=== PATIENT | female | born 1960 | race Caucasian/White ===

== ENCOUNTER → 2016-08-29 | Outpatient (CLI) | payer OTHER ==
[~2016-08-29] MED LIST: ASPI81TA28 PO; ATOR-26 PO; ATR25 PO; BUSP30TA2 PO; CHOLCAP5 PO; DULA1INJ SC; FENO145T26 PO; HMLI SC; HYD50 PO; INSU1.2I SC; LSN40 PO; LXP/20 PO; MAGN400T6 PO; OXYC1TAB3 PO; TNR25 PO; ZINC1TAB4 PO
== END | disposition home or self-care (01) ==
LOC: C.PAPS 14:29
PROVIDERS: ATTEND Obstetrics & Gynecology
DX: Z12.4 Encounter for screening for malignant neoplasm of cervix (principal); R87.616 Satisfactory cervical smear but lacking transformation zone; Z78.0 Asymptomatic menopausal state

== ENCOUNTER → 2016-12-19 | Outpatient (CLI) | payer OTHER ==
[~2016-12-19] MED LIST changes: -OXYC1TAB3 PO
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
== END | disposition home or self-care (01) ==
LOC: C.CTS 09:49
PROVIDERS: ATTEND Orthopaedic Surgery
DX: M25.512 Pain in left shoulder (principal)

== ENCOUNTER → 2017-04-01 | Outpatient (CLI) | payer OTHER ==
[2017-04-01 17:18] LABS: MEAN CELL VOLUME 88.1 fL (80-100); MEAN CORPUSCULAR HEMOGLOBIN 28.9 pg (25-34); MEAN CORPUSCULAR HGB CONC 32.8 g/dl (32-36); MEAN PLATELET VOLUME 11.1 fL (7.4-10.4); PLATELET COUNT 175 K/uL (130-400); RED BLOOD COUNT 4.54 M/uL (4.2-5.4); WHITE BLOOD COUNT 5.77 K/uL (4.8-10.8)
[2017-04-01 17:24] LABS: URINE APPEARANCE CLEAR (CLEAR); URINE BILIRUBIN NEG (NEG); URINE COLOR YELLOW; URINE EPITHELIAL CELL AUTO >30 /lpf (0-5); URINE NITRITE NEG (NEG); URINE SPECIFIC GRAVITY 1.025 (1.000-1.030); UROBILINOGEN NEG (NEG)
[2017-04-01 17:31] LABS: MANUAL MICROSCOPIC REQUIRED? NO; REVIEW REQ? NO
[2017-04-01 17:50] LABS: URINE PROTIEN/CREAT RATIO 1.4 (0-0.2); URINE TOTAL PROTEIN 154.2 mg/dl (0-11.9)
[2017-04-01 18:15] LABS: BLOOD UREA NITROGEN 31 mg/dl (7-18); BUN/CREATININE RATIO 20.8 (10-20); CALCIUM 9.2 mg/dl (8.5-10.1); CARBON DIOXIDE 29 mmol/L (21-32); CHLORIDE 103 mmol/L (98-107); CREATININE 1.51 mg/dl (0.60-1.20); GLUCOSE 399 mg/dl (70-99); POTASSIUM 4.6 mmol/L (3.5-5.1); SODIUM 138 mmol/L (136-145)
[2017-04-01 19:02] LABS: BETA-HYDROXYBUTYRATE 1.27 mg/dL (0.2-2.81)
== END | disposition home or self-care (01) ==
LOC: C.LABPBG 14:14
PROVIDERS: ATTEND Internal Medicine Nephrology
DX: N18.3 Chronic kidney disease, stage 3 (moderate) (principal)

== ENCOUNTER → 2017-08-12 | Outpatient (CLI) | payer OTHER ==
[2017-08-12 17:49] LABS: ALBUMIN 3.2 gm/dl (3.4-5.0); ALKALINE PHOSPHATASE 98 U/L (45-117); ALT/SGPT 31 U/L (12-78); AST/SGOT 28 U/L (15-37); BLOOD UREA NITROGEN 28 mg/dl (7-18); CALCIUM 9.2 mg/dl (8.5-10.1); CARBON DIOXIDE 29 mmol/L (21-32); CREATININE 1.48 mg/dl (0.60-1.20); GLUCOSE 270 mg/dl (70-99); POTASSIUM 4.4 mmol/L (3.5-5.1); SODIUM 139 mmol/L (136-145); TOTAL PROTEIN 6.9 gm/dl (6.4-8.2)
[2017-08-13 07:08] LABS: HEMOGLOBIN A1C 9.7 % (4.5-5.6)
== END | disposition home or self-care (01) ==
LOC: C.LAB1850 16:19
PROVIDERS: ATTEND Family Medicine
DX: E11.65 Type 2 diabetes mellitus with hyperglycemia (principal); E78.5 Hyperlipidemia, unspecified

== ENCOUNTER → 2017-08-22 | Outpatient (CLI) | payer OTHER ==
[~2017-08-22] MED LIST changes: +AMIT25TA9 PO; +ATROPINE SULFATE 0.1 MG/ML 5ML SYR ONE; +DOBUTamine HCL 12.5 MG/ML 20 ML VIAL ONE; +HUMALOG INSULIN INJ; +INSU1INJ33 INJ; +LEVO50TA6 PO; +LORA-741 PO; +METO50TA8 PO; +METOPROLOL TARTRATE 1 MG/ML VIAL ONE; +PERFLUTREN LIPID MICROSPHERE (DEFINITY) IV ONE
--- NOTE | 2017-08-22 17:25 | DOBUTAMINE ECHO ---
*NOTICE TO RECEIVING LIBERTARIAN AGENCY This information is strictly Confidential and protected under [place] law. [place] law prohibits you from making any further disclosure of this information unless further disclosure is expressly permitted by the written consent of the person to whom it pertains or is authorized by law. A general authorization for the release of medical or other information is not sufficient for this purpose. Hospital accepts no responsibility if the information is made available to any other person, INCLUDING THE PATIENT. Interpretation Summary * Name: SHANTEL PAYAN Study Date: 08/22/2017 11:45 AM BP: 169/83 mmHg * Patient Location: [facility] [place] HR: 75 * : 1960 (M/d/yyyy) Gender: Female Height: 68 in * Age: 56 yrs Ethnicity: CA Weight: 357 lb * Ordering Physician: MOR Howell. * Referring Physician: MOR Howell. * Performed By: Kelly Adrian RDCS * * Reason For Study: CHEST DISCOMFORT, ABNL EKG, HTN * BSA: 2.6 m2 * -- Conclusions -- * 1. Negative dobutamine stress echo for ischemia at 93% MPHR. * 2. Negative dobutamine stress ECG for ischemia. * 3. Normal resting LV size and function. Mild LVH. Normal RV size and function. Aortic valve sclerosis without stenosis. Grade 1 diastolic dysfunction. * 4. No prior studies for comparison. Procedure Details * DOBUTAMINE ECHO, CPT#70972 * A contrast injection of Definity was performed to improve assessment of LV function. * Contrast was injected into an intravenous site in the right arm. * One vial of Definity ultrasound contrast was diluted in normal saline to a total volume of 10 ml. A total of '5' ml of solution was administered during imaging. * Lot # [id number] of Definity utilized for procedure. * Expiration date 1 AUG 05. * The attending nurse who injected the contrast agent was BIANCA KAM RN. Left Ventricular Findings with Stress * This was essentially a normal study. Left Ventricle * The left ventricle is grossly normal size. * There is mild concentric left ventricular hypertrophy. * Ejection Fraction = 55-60%. * Resting wall motion: Normal. Stress wall motion: Appropriate increase in Left ventricular systolic function and decrease in cavity size. No stress induced segmental wall motion abnormalities. Right Ventricle * The right ventricle is not well visualized. * The right ventricle is grossly normal size. * The right ventricular systolic function is qualitatively normal. Atria * The left atrium is not well visualized. * Right atrium not well visualized. * There is no evidence of atrial septal defect, but resolution does not allow assessment for a patent foramen ovale. Mitral Valve * The mitral valve is grossly normal. * There is no mitral valve stenosis. * Significant mitral regurgitation is absent. Tricuspid Valve * There is trace tricuspid regurgitation. Aortic Valve * Aortic valve sclerosis moderate, without significant aortic valvular stenosis. * No hemodynamically significant valvular aortic stenosis. * There is no significant aortic regurgitation. Pulmonic Valve * The pulmonary valve is inadequately visualized, but the Doppler data is adequate for interpretation. * There is no significant pulmonary regurgitation. Great Vessels * The aortic root and proximal ascending aorta are normal sized. Pericardium * There is no pericardial effusion. Stress Parameters * Normal baseline electrocardiogram. * Stress ECG: No ST changes. No arrhythmias. * Arrhythmia noted in recovery: occasional PVC's. * Arrhythmia induced during stress: occasional PVC's. * Rest heart rate was '75' BPM. * Rest blood pressure was '169/83' * Maximum heart rate achieved was 151 bpm. * Maximum heart rate was 93 % of maximum age-predicted heart rate. * Maximum blood pressure was '209/94' * Maximum Dobutamine infusion rate was '40' mcg/kg/min. * A total of .5 mg of intravenous Atropine was used to supplement Dobutamine for heart rate response. * Dobutamine infusion was terminated due to achieving target heart rate * A total of 10 mg of IV Metoprolol was administered to reverse Dobutamine-induced tachycardia. Left Ventricular Findings with Stress * The study was technically good with many images being of high quality. Left Ventricular Diastolic Function * Grade I diastolic dysfunction, (abnormal relaxation pattern). MMode 2D Measurements and Calculations IVSd 1.5 cm IVSs 1.9 cm LVIDd 5.2 cm LVIDs 3.6 cm LVPWd 1.2 cm LVPWs 1.9 cm IVS/LVPW 1.3 FS 31.2 % EDV(Teich) 128.1 ml ESV(Teich) 53.0 ml EF(Teich) 58.6 % EDV(cubed) 138.6 ml ESV(cubed) 45.1 ml EF(cubed) 67.5 % % IVS thick 24.9 % % LVPW thick 61.1 % LV mass(C)d 296.9 grams LV mass(C)dI 113.6 grams/m\S\2 LV mass(C)s 301.4 grams LV mass(C)sI 115.3 grams/m\S\2 SV(Teich) 75.1 ml SI(Teich) 28.7 ml/m\S\2 SV(cubed) 93.5 ml SI(cubed) 35.8 ml/m\S\2 Ao root diam 3.7 cm Ao root area 10.7 cm\S\2 LA dimension 3.3 cm LA/Ao 0.89 LVAd ap4 37.7 cm\S\2 LVLd ap4 9.5 cm EDV(MOD-sp4) 119.2 ml EDV(sp4-el) 127.3 ml LVAs ap4 22.6 cm\S\2 LVLs ap4 8.4 cm ESV(MOD-sp4) 50.7 ml ESV(sp4-el) 51.4 ml EF(MOD-sp4) 57.5 % EF(sp4-el) 59.6 % LVAd ap2 38.3 cm\S\2 LVLd ap2 9.8 cm EDV(MOD-sp2) 120.1 ml EDV(sp2-el) 126.9 ml LVAs ap2 21.5 cm\S\2 LVLs ap2 8.4 cm ESV(MOD-sp2) 45.2 ml ESV(sp2-el) 47.0 ml EF(MOD-sp2) 62.3 % EF(sp2-el) 63.0 % LVLd %diff 3.3 % EDV(MOD-bp) 119.3 ml LVLs %diff -0.89 % ESV(MOD-bp) 48.4 ml EF(MOD-bp) 59.4 % SV(MOD-sp4) 68.5 ml SI(MOD-sp4) 26.2 ml/m\S\2 SV(MOD-sp2) 74.8 ml SI(MOD-sp2) 28.6 ml/m\S\2 SV(MOD-bp) 70.9 ml SI(MOD-bp) 27.1 ml/m\S\2 SV(sp4-el) 75.9 ml SI(sp4-el) 29.0 ml/m\S\2 SV(sp2-el) 79.9 ml SI(sp2-el) 30.6 ml/m\S\2 Doppler Measurements and Calculations MV E max matthew 94.3 cm/sec MV A max matthew 102.3 cm/sec MV E/A 0.92 MV dec time 0.31 sec Ao V2 max 183.8 cm/sec Ao max PG 13.5 mmHg Ao max PG (full) 10.8 mmHg Ao V2 mean 131.1 cm/sec Ao mean PG 7.9 mmHg Ao mean PG (full) 6.3 mmHg Ao V2 VTI 37.0 cm LV V1 max PG 2.7 mmHg LV V1 mean PG 1.6 mmHg LV V1 max 82.4 cm/sec LV V1 mean 59.0 cm/sec LV V1 VTI 18.9 cm SV(Ao) 395.0 ml SI(Ao) 151.1 ml/m\S\2
== END | disposition home or self-care (01) ==
LOC: C.CPL 11:37
PROVIDERS: ATTEND Internal Medicine
DX: E11.65 Type 2 diabetes mellitus with hyperglycemia (principal); E78.5 Hyperlipidemia, unspecified; E66.01 Morbid (severe) obesity due to excess calories; I12.9 Hypertensive chronic kidney disease with stage 1 through stage 4 chronic kidney disease, or unspecified chronic kidney disease; N18.2 Chronic kidney disease, stage 2 (mild); N18.3 Chronic kidney disease, stage 3 (moderate); R07.89 Other chest pain; R94.31 Abnormal electrocardiogram [ECG] [EKG]; Z68.43 Body mass index [BMI] 50.0-59.9, adult

== ENCOUNTER → 2017-08-26 | Outpatient (CLI) | payer OTHER ==
[~2017-08-26] MED LIST changes: -ATROPINE SULFATE 0.1 MG/ML 5ML SYR ONE; -DOBUTamine HCL 12.5 MG/ML 20 ML VIAL ONE; -METOPROLOL TARTRATE 1 MG/ML VIAL ONE; -PERFLUTREN LIPID MICROSPHERE (DEFINITY) IV ONE
--- NOTE | 2017-08-26 13:49 | DIAGNOSTIC IMAGING REPORT ---
ULTRASOUND OF THE THYROID GLAND CLINICAL HISTORY: Nontoxic goiter. COMPARISON STUDY: No priors. TECHNIQUE: Real-time, grayscale, and color flow sonography of the thyroid gland is performed utilizing a high-frequency linear transducer. Images are reviewed in the transverse and longitudinal planes. FINDINGS: Right lobe: The right lobe of the thyroid gland is normal in size and heterogeneous in echotexture, measuring 6.4 x 2.4 x 2.7 cm. A coarse shadowing calcification the posterior midpole measures 9 mm. 2 subcentimeter hypoechoic nodules are seen in the upper pole. Left lobe: The left lobe of the thyroid gland is normal in size and heterogeneous in echotexture, measuring 4.4 x 2.0 x 2.1 cm. Scattered low suspicion subcentimeter nodules are noted. Isthmus: The thyroid isthmus is thickened and heterogeneous, measuring 0.5 cm in AP diameter. A honeycomb nodule in the left aspect of the isthmus measures 2.1 x 1.6 x 2.2 cm. IMPRESSION: Heterogeneous and multinodular thyroid gland as above. Electronically signed by: Bryn Jose M.D. 08/26/2017 1:48 PM Dictated Date/Time: 08/26/2017 1:45 PM
== END | disposition home or self-care (01) ==
LOC: C.ULTR 12:55
PROVIDERS: ATTEND Physician Assistant
DX: E04.2 Nontoxic multinodular goiter (principal)

== ENCOUNTER → 2017-09-04 | Outpatient (CLI) | payer OTHER ==
[~2017-09-04] MED LIST changes: -ATR25 PO; -HMLI SC; -TNR25 PO
--- NOTE | 2017-09-05 15:08 | MAMMOGRAPHY REPORT ---
BILATERAL DIGITAL SCREENING MAMMOGRAM TOMOSYNTHESIS WITH CAD: 09/04/2017 CLINICAL HISTORY: Routine screening. Patient has no complaints. TECHNIQUE: Breast tomosynthesis in addition to standard 2D mammography was performed. Current study was also evaluated with a Computer Aided Detection (CAD) system. COMPARISON: Comparison is made to exams dated: 05/02/2016 mammogram, 04/28/2015 mammogram, 10/16/2013 mammogram, 01/28/2012 mammogram, 08/05/2009 mammogram - [facility], and 05/18/2008. BREAST COMPOSITION: The tissue of both breasts is almost entirely fatty. FINDINGS: No suspicious masses, calcifications, or areas of architectural distortion are noted in ei ther breast. There has been no significant interval change compared to prior exams. Bilateral benign -appearing calcifications are not significantly changed. A benign-appearing circumscribed mass is ag ain noted within the left lateral anterior breast. IMPRESSION: ACR BI-RADS CATEGORY 2: BENIGN There is no mammographic evidence of malignancy. A 1 year screening mammogram is recommended. The pa tient will receive written notification of the results. Approximately 10% of breast cancers are not detected with mammography. A negative mammographic report should not delay biopsy if a clinically suggestive mass is present. Becca Davison M.D. ah/:09/05/2017 07:35:24 Reliability Technician: Candy MARTIN)(M), [facility] letter sent: Normal 1/2 BI-RADS Code: ACR BI-RADS Category 2: Benign
== END | disposition home or self-care (01) ==
LOC: C.MAMM 17:09
PROVIDERS: ATTEND Internal Medicine
DX: Z12.31 Encounter for screening mammogram for malignant neoplasm of breast (principal)

== ENCOUNTER → 2017-09-06 | Outpatient (CLI) | payer OTHER ==
[~2017-09-06] MED LIST changes: +RXC5 PO
== END | disposition home or self-care (01) ==
LOC: C.PAPS 16:04
PROVIDERS: ATTEND Physician Assistant
DX: Z12.4 Encounter for screening for malignant neoplasm of cervix (principal)

== ENCOUNTER 2017-09-20 11:25 | Inpatient (IN) | payer OTHER ==
[2017-08-26 11:00] VITALS: BMI 55.0
--- NOTE | 2017-08-26 11:48 | PAT Medication Instructions ---
Service Date Aug 26, 2017. Current Home Medication List Amitriptyline Hcl (Elavil), 10-25 MG PO HS PRN for RN Aspirin (Aspirin Ec), 81 MG PO QAM Atorvastatin (Lipitor), 80 MG PO HS Buspirone Hcl (Buspirone Hcl), 30 MG PO BID Cholecalciferol (Vitamin D3), 5,000 INTER.UNIT PO QAM Dulaglutide (Trulicity), 1.5 MG SC WK Escitalopram Oxalate (Escitalopram Oxalate), 30 MG PO QAM Fenofibrate (Tricor), 145 MG PO QAM Hydrochlorothiazide (Hydrochlorothiazide), 50 MG PO QAM Insulin Degludec (Tresiba Flextouch), 120 UNITS INJ QPM Insulin Glargine (Toujeo Solostar), 110 UNITS SC HS Levothyroxine Sodium (Levothyroxine Sodium), 1 TAB PO AM Lisinopril (Lisinopril), 40 MG PO QAM Lorazepam (Ativan), 0.5 MG PO QID PRN for RN Magnesium Oxide (Mag-Ox), 400 MG PO QAM Metoprolol Succ (Toprol Xl) (Toprol-Xl), 50 MG PO QAM Zinc Gluconate (Zinc), 100 MG PO HS [Humalog Insulin], INJ SLIDING SCALE Medication Instructions For Your Scheduled Surgery -Continue as directed: Dulaglutide (Trulicity), 1.5 MG SC WK Insulin Degludec (Tresiba Flextouch), 120 UNITS INJ QPM (to start prior to surgery) Insulin Glargine (Toujeo Solostar), 110 UNITS SC HS (will finish prior to surgery) - Hold the following medications 7 days prior to surgery per your surgeon's instructions: Aspirin (Aspirin Ec), 81 MG PO QAM - Hold the following medications the morning of surgery: Cholecalciferol (Vitamin D3), 5,000 INTER.UNIT PO QAM Fenofibrate (Tricor), 145 MG PO QAM Hydrochlorothiazide (Hydrochlorothiazide), 50 MG PO QAM Lisinopril (Lisinopril), 40 MG PO QAM Magnesium Oxide (Mag-Ox), 400 MG PO QAM - Take the following medications the morning of surgery with a sip of water: Buspirone Hcl (Buspirone Hcl), 30 MG PO BID Escitalopram Oxalate (Escitalopram Oxalate), 30 MG PO QAM Levothyroxine Sodium (Levothyroxine Sodium), 1 TAB PO AM Lorazepam (Ativan), 0.5 MG PO QID PRN for RN (if needed) Metoprolol Succ (Toprol Xl) (Toprol-Xl), 50 MG PO QAM - Take the following medications as scheduled the night before surgery: Amitriptyline Hcl (Elavil), 10-25 MG PO HS PRN for RN (if needed) Atorvastatin (Lipitor), 80 MG PO HS Buspirone Hcl (Buspirone Hcl), 30 MG PO BID Zinc Gluconate (Zinc), 100 MG PO HS [Humalog Insulin], INJ SLIDING SCALE Lorazepam (Ativan), 0.5 MG PO QID PRN for RN (if needed) If you have any questions please call us at [phone] or [phone] or [phone]
[2017-08-26 12:47] LABS: BASO % 0.8 %; BASO ABS # 0.05 K/uL (0-0.2); EOS % 1.6 %; HEMATOCRIT 37.6 % (37-47); HEMOGLOBIN 12.1 g/dL (12.0-16.0); IG# 0.04 K/uL (0.00-0.02); LYMPH % 30.6 %; LYMPH ABS # 1.88 K/uL (1.2-3.4); MEAN CELL VOLUME 87.6 fL (80-100); MEAN CORPUSCULAR HEMOGLOBIN 28.2 pg (25-34); MEAN CORPUSCULAR HGB CONC 32.2 g/dl (32-36); MEAN PLATELET VOLUME 10.9 fL (7.4-10.4); MONO % 5.5 %; MONO ABS # 0.34 K/uL (0.11-0.59); NEUT % 60.8 %; NEUT ABS # 3.73 K/uL (1.4-6.5); PLATELET COUNT 181 K/uL (130-400); RED CELL DISTRIBUTION WIDTH CV 13.9 % (11.5-14.5); RED CELL DISTRIBUTION WIDTH SD 43.8 fL (36.4-46.3); WHITE BLOOD COUNT 6.14 K/uL (4.8-10.8)
[2017-08-26 12:57] LABS: INR 0.9 (0.9-1.1); PTT PATIENT 22.6 SECONDS (21.0-31.0)
--- NOTE | 2017-08-26 13:07 | DIAGNOSTIC IMAGING REPORT ---
CHEST 2 VIEWS ROUTINE HISTORY: 56 years-old Female pat preoperative exam. No acute chest complaints. COMPARISON: Chest radiograph 05/23/2014 TECHNIQUE: PA and lateral views of the chest FINDINGS: Cardiac silhouette is mildly enlarged. Atherosclerosis of the aorta. No pneumothorax, pleural effusion, focal airspace consolidation or overt pulmonary edema. Mild right hemidiaphragmatic elevation. Opacity of the medial right lung base suggests prominent epicardial fat pad. Degenerative changes are noted within the shoulders and spine. ORIF hardware of the proximal left humerus. Multilevel endplate spurring about the spine. IMPRESSION: No acute process. The above report was generated using voice recognition software. It may contain grammatical, syntax or spelling errors. Electronically signed by: Spencer Tracy M.D. 08/26/2017 1:06 PM Dictated Date/Time: 08/26/2017 1:04 PM
[2017-08-26 13:26] LABS: CALCIUM 9.8 mg/dl (8.5-10.1); CREATININE 1.27 mg/dl (0.60-1.20); POTASSIUM 4.3 mmol/L (3.5-5.1)
[2017-08-26 13:32] LABS: HEMOGLOBIN A1C 9.7 % (4.5-5.6)
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
[~2017-09-20] VITALS: Ht 172.7 cm; Wt 164.5 kg
[~2017-09-20 11:25] MED LIST changes: +ACETAMINOPHEN 500 MG TAB PO SCH; +CEFAZOLIN 3000MG IV PUSH 22.5 ML IV SCH; +FAMOTIDINE 20 MG TAB PO SCH; +GABAPENTIN 300 MG CAP PO SCH; +LACTATED RINGER'S 1000ML 1,000 ML IV SCH; +LACTATED RINGER'S 1000ML IV SCH; +ROPIVACAINE 0.5% 5 MG/ML 30 ML VIAL ONE; +ROPIVACAINE 5MG/ML 30 ML 150 MG, BUPIVACAINE 0.5% MPF INJ 30 ML, EpINEphrine HCL INJ 0.... INFIL SCH; -RXC5 PO
[2017-09-20 11:50] VITALS: BP 169/89; PULSE 84; TEMP 37; O2SAT 94; Ht 172.7 cm; Wt 164.5 kg
[2017-09-20] MEDS ORDERED: ONDANSETRON INJ 2 MG/ML 2 ML VIAL ONE ×2 (12:19→16:07)
[2017-09-20] MEDS ORDERED: PROPOFOL IV EMULSION 10 MG/ML 20 ML VIAL IV ONE ×2 (12:19→16:07)
[2017-09-20] MEDS ORDERED: LIDOCAINE HCL 2% 2 ML VIAL (20MG/ML) ONE (12:19)
[2017-09-20] MEDS ORDERED: DEXAMETHASONE SOD INJ 4 MG/ML VIAL ONE (12:19)
[2017-09-20] MEDS ORDERED: MIDAZOLAM HCL 1 MG/ML 2ML VIAL ONE ×2 (12:19)
[2017-09-20] MEDS ORDERED: FENTANYL CITRATE INJ 50 MCG/1 ML 2 ML VIAL ONE (12:19)
[2017-09-20] MEDS ORDERED: LARYING-O-JET KIT (LTA) ONE (12:28)
--- NOTE | 2017-09-20 12:50 | History & Physical Bridge Note ---
H&P Re-Evaluation Bridge Note: I have examined the patient, reviewed the History & Physical and in the interval since the performance of the History & Physical I have noted the following changes of clinical significance: No changes noted
[2017-09-20] MEDS: TRANEXAMIC ACID INJ 1,000 MG x 2 Bags IV SCH ×4 (13:08→16:57)
[2017-09-20] MEDS ORDERED: ORTHO JOINT ANESTHETIC ONE (13:09)
[2017-09-20] MEDS ORDERED: BACITRACIN 50000 UNIT VIAL ONE (13:09)
[2017-09-20] MEDS ORDERED: ATROPINE SULFATE 0.1 MG/ML 5ML SYR IV PRN (13:30)
[2017-09-20] MEDS ORDERED: ONDANSETRON INJ 2 MG/ML 2 ML VIAL IV PRN ×2 (13:30→15:45)
[2017-09-20] MEDS ORDERED: EpHEDrine SULFATE INJ 50 MG/ML AMP IV PRN (13:30)
[2017-09-20] MEDS ORDERED: FENTANYL CITRATE INJ 50 MCG/1 ML 2 ML VIAL IV PRN (13:30)
[2017-09-20] MEDS ORDERED: PHENYLEPHRINE HCL INJ 10 MG/ML VIAL ONE (14:21)
[2017-09-20] MEDS ORDERED: EpHEDrine SULFATE 50MG/5ML SYR ONE (14:21)
--- NOTE | 2017-09-20 15:42 | [facility] Post Operative Brief Note ---
Immediate Operative Summary Operative Date Sep 20, 2017. Pre-Operative Diagnosis Failed open reduction and internal fixation of the left proximal humerus with avascular necrosis of the humeral head Post-Operative Diagnosis Failed open reduction and internal fixation of the left proximal humerus with avascular necrosis of the humeral head Procedure(s) Performed Hardware Removal, Reverse Left Total Shoulder Arthroplasty Surgeon Dr. New Utility System Operator Surgeon(s) Alfred Black PA-C Estimated Blood Loss 250cc Findings Consistent with Post-Op Diagnosis Specimens A. Explanted hardware left shoulder Anesthesia Type General Regional Complication(s) none Disposition Disposition: Recovery Room / PACU
[2017-09-20] MEDS ORDERED: GLUCAGON FOR INJ 1 MG VIAL SQ PRN (15:45)
[2017-09-20] MEDS ORDERED: GLUCOSE 40% GEL 15 GM TUBE PO PRN (15:45)
[2017-09-20] MEDS ORDERED: GLUCOSE 10 TABS/TUBE PO PRN (15:45)
[2017-09-20] MEDS ORDERED: METOCLOPRAMIDE HCL INJ 5 MG/ML 2 ML VIAL IV PRN (15:45)
[2017-09-20] MEDS ORDERED: LORAZEPAM 0.5 MG TAB PO PRN (15:45)
[2017-09-20] MEDS ORDERED: MoRPHine SULFATE 2 MG/ML CARP IV PRN (15:45)
[2017-09-20] MEDS ORDERED: SOD PHOSPHATE/SOD BIPHOSPHATE ENEMA 132 ML BTL PR PRN (15:45)
[2017-09-20] MEDS ORDERED: DEXTROSE 50% 50 ML SYR IV PRN (15:45)
[2017-09-20] MEDS ORDERED: OXYCODONE HCL IR 5 MG TAB (IMMEDIATE RELEASE) PO PRN (15:45)
[2017-09-20] MEDS ORDERED: MAGNESIUM HYDROXIDE SUSP 30 ML UDC PO PRN (15:45)
[2017-09-20] MEDS ORDERED: BISACODYL 10 MG SUPP PR PRN (15:45)
[2017-09-20] MEDS ORDERED: NALOXONE HCL 0.4 MG/1 ML VIAL/CARP IV PRN (15:45)
[2017-09-20] MEDS ORDERED: DC ALL PREVIOUSLY ORDERED DIABETES MEDS ONE (15:45)
[2017-09-20] MEDS ORDERED: ROCURONIUM BROMIDE 10 MG/ML 5 ML VIAL IV ONE (16:07)
[2017-09-20] MEDS ORDERED: GLYCOPYRROLATE INJ 0.2 MG/ML VIAL ONE (16:07)
[2017-09-20] MEDS ORDERED: PHARMACY GLYCEMIC MGMT CONSULT SCH (16:07)
[2017-09-20] MEDS ORDERED: NEOSTIGMINE METHYLSULFATE 5 MG/5 ML SYR ONE (16:07)
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
--- NOTE | 2017-09-20 16:31 | DIAGNOSTIC IMAGING REPORT ---
L SHOULDER MIN 2 VIEWS ROUTINE CLINICAL HISTORY: 56 years-old Female presenting with Post shoulder surgery. TECHNIQUE: Frontal and transcatheter Y views of the left shoulder were obtained. COMPARISON: 06/07/2016. FINDINGS: Post-surgical changes of reverse left shoulder arthroplasty. Skin kari noted. No malalignment or periprosthetic fractures apparent. The acromioclavicular joint is congruent. IMPRESSION: Expected postsurgical changes status post reversed total left shoulder arthroplasty. Electronically signed by: Geraldo Aaron M.D. 09/20/2017 4:29 PM Dictated Date/Time: 09/20/2017 4:25 PM
--- NOTE | 2017-09-20 16:40 | Anesthesiology Progress Note ---
Anesthesia Post Op Note Date & Time Sep 20, 2017 at 16:40 Vital Signs Pain Intensity: 0 Vital Signs Past 12 Hours Date Time Temp Pulse Resp B/P (MAP) Pulse Ox O2 Delivery O2 Flow Rate FiO2 09/20/17 16:31 36.8 148/68 09/20/17 16:30 84 22 09/20/17 16:30 84 22 09/20/17 16:26 141/76 09/20/17 16:25 83 22 09/20/17 16:25 84 22 09/20/17 16:21 145/64 09/20/17 16:20 76 24 97 09/20/17 16:20 76 24 09/20/17 16:16 148/68 09/20/17 16:15 85 17 98 09/20/17 16:15 85 17 09/20/17 16:11 161/60 09/20/17 16:10 80 20 09/20/17 16:10 78 20 09/20/17 16:06 163/66 09/20/17 16:05 78 22 94 09/20/17 16:05 79 22 09/20/17 16:03 155/69 09/20/17 15:55 36.5 80 16 148/72 100 Oxymask 7 09/20/17 11:50 37 84 20 169/89 94 Room Air Notes Mental Status: alert / awake / arousable, participated in evaluation Pt Amnestic to Procedure: Yes Nausea / Vomiting: adequately controlled Pain: adequately controlled Airway Patency, RR, SpO2: stable & adequate BP & HR: stable & adequate Hydration State: stable & adequate Anesthetic Complications: no major complications apparent
[2017-09-20 17:30] VITALS: BP 151/49; PULSE 84; TEMP 36.8; O2SAT 93
[2017-09-20] MEDS ORDERED: AMITRIPTYLINE HCL 25 MG TAB PO PRN (17:45)
[2017-09-20 18:00] VITALS: BP 142/68; PULSE 85; TEMP 36.8; O2SAT 95
[2017-09-20] MEDS: POTASSIUM CHLORIDE INJ 10 MEQ in SODIUM CHLORIDE 0.9% 1000ML 1,000 ML IV SCH (18:44)
--- NOTE | 2017-09-20 18:57 | Pharmacy Progress Note ---
Glycemic Control Intl Consult Date of Service Sep 20, 2017. Scope Glycemic Pharmacist consulted by Dr New on 09/20/17 for glycemic control and to write orders per [facility] inpatient glycemic control protocol Objective Weight (Kilograms): 164.500 Accuchecks BSG (last 24hrs): Test 09/20/17 11:59 09/20/17 16:19 09/20/17 17:39 Bedside Glucose 153 mg/dl (70-90) 153 mg/dl (70-90) 180 mg/dl (70-90) Recent Pertinent Medications Outpatient Anti-diabetic Regimen: * Dulaglutide (Trulicity) 1.5mg SQ weekly (last dose on 09/15/17) * Degludec (Tresiba) 120 units SQ QPM * Humalog 50 units SQ with meals + additional sliding scale * A1c = 9.7 % 08/26/17 Risk Factors for Insulin Resistance: * Steroids: Dexamethasone 8mg IV x1 in OR * Infection: Ancef pre and post op * Recent Surgery: POD 0 shoulder arthroplasty * Diet: Type 2 DM Assessment & Plan ASSESSMENT: * 56 year old female type 2 diabetic on 270+ units insulin/day, uncontrolled, A1c = 9.7%< s/p shoulder arthroplasty ,and pt did receive 1 dose of IV Dexamethasone preop * I will begin patient on home doses of insulins, with Lantus and Novolog per formulary, and give additional Lantus now for IV steroids * Also accuchecks overnight for IV steroids * Pt did take 50 units of Humalog this morning; Last dose of Tresiba was 120units on 09/18/17 HS * ADA & AACE recommend a goal blood sugar range 140-180 mg/dl for the majority of critically ill & non-critically ill patients. However, more stringent targets may be selected in individual cases. Will utilize more stringent goal of 110-140mg/dl based on patient age & comorbidities. Additionally, tighter glycemic control is warranted to facilitate wound/infection healing. PLAN FOR INPATIENT GLYCEMIC CONTROL: * Holding outpatient SQ GLP-1, non-formulary * Basal insulin with LANTUS 120 units SQ HS * and Lantus 60 units x 1 dose NOW * Correctional Insulin with NOVOLOG per scale ACHS or Q6hrs while NPO and at 0000 and 0400 * Goal Range: Low 110 mg/dL - High 140 mg/dL * Correction Factor: 5 mg/dL/unit * Nutritional / Prandial insulin per carb ratio of 1 unit per 2 grams CHO consumed * Please note that the plan above was derived based on current level of insulin resistance and hospital stress. These recommendations are appropriate for inpatient admission only. Plan of care upon discharge will need to be reassessed to avoid potential outpatient hypo/hyperglycemia. Thank you.
[2017-09-20 19:00] VITALS: BP 131/55; PULSE 95; TEMP 36.9; O2SAT 95
[2017-09-20] MEDS ORDERED: INSULIN GLARGINE SC ONE (19:00)
[2017-09-20] MEDS: INSULIN ASPART 100 UNITS/ML 3 ML PEN SC SCH ×2 (19:00→22:08)
[2017-09-20] MEDS: KETOROLAC TROMETHAMINE 30 MG/ML VIAL IV. SCH ×2 (19:07→23:31)
[2017-09-20 20:00] VITALS: BP 109/70; PULSE 87; TEMP 37; O2SAT 93
[2017-09-20] MEDS ORDERED: INSULIN GLARGINE SC SCH ×2 (21:00→22:00)
[2017-09-20] MEDS ORDERED: SENNA 8.6 MG TAB PO SCH (21:00)
[2017-09-20] MEDS ORDERED: ATORVASTATIN 40 MG TAB PO SCH (21:00)
[2017-09-20] MEDS: CEFAZOLIN IV 3,000 MG in SYRINGE 0 ML IV SCH (21:04)
[2017-09-20] MEDS: DOCUSATE SODIUM 100 MG CAP PO SCH (21:05)
[2017-09-20] MEDS: BusPIRone 15 MG TAB PO SCH (21:05)
[2017-09-20] MEDS: ACETAMINOPHEN IV 1,000 MG in EMPTY BAG 0 ML IV SCH (22:08)
[2017-09-21 00:01] VITALS: BP 123/67; PULSE 88; TEMP 37; O2SAT 88
[2017-09-21 00:04] VITALS: O2SAT 92
[2017-09-21] MEDS ORDERED: INSULIN ASPART 100 UNITS/ML 3 ML PEN SC SCH ×2 (02:00)
[2017-09-21 03:18] VITALS: BP 131/85; PULSE 77; TEMP 36.8; O2SAT 96
[2017-09-21] MEDS: POTASSIUM CHLORIDE INJ 10 MEQ in SODIUM CHLORIDE 0.9% 1000ML 1,000 ML IV SCH (03:22)
[2017-09-21] MEDS: ACETAMINOPHEN IV 1,000 MG in EMPTY BAG 0 ML IV SCH (05:42)
[2017-09-21] MEDS: KETOROLAC TROMETHAMINE 30 MG/ML VIAL IV. SCH (05:42)
[2017-09-21] MEDS: CEFAZOLIN IV 3,000 MG in SYRINGE 0 ML IV SCH (05:51)
[2017-09-21] MEDS ORDERED: LEVOTHYROXINE 50 MCG TAB PO SCH (06:00)
[2017-09-21 06:28] LABS: HEMATOCRIT 33.5 % (37-47); HEMOGLOBIN 10.7 g/dL (12.0-16.0); MEAN CELL VOLUME 89.1 fL (80-100); MEAN CORPUSCULAR HEMOGLOBIN 28.5 pg (25-34); MEAN CORPUSCULAR HGB CONC 31.9 g/dl (32-36); MEAN PLATELET VOLUME 10.4 fL (7.4-10.4); PLATELET COUNT 166 K/uL (130-400); RED CELL DISTRIBUTION WIDTH CV 14.1 % (11.5-14.5); WHITE BLOOD COUNT 9.71 K/uL (4.8-10.8)
[2017-09-21 06:52] VITALS: BP 104/65; PULSE 64; TEMP 36.8; O2SAT 91
[2017-09-21 07:06] LABS: CALCIUM 8.7 mg/dl (8.5-10.1); CREATININE 3.06 mg/dl (0.60-1.20)
[2017-09-21] MEDS ORDERED: RXC5 PO (07:37)
--- NOTE | 2017-09-21 07:38 | Discharge Instructions ---
Discharge Instructions Date of Service Sep 21, 2017. Admission Reason for Admission: Left Humeral Head Fracture W/Aspetic Necrosis Discharge Discharge Diagnosis / Problem: Left Reverse Total Shoulder Discharge Goals Goal(s): Decrease discomfort, Improve function Activity Recommendations Activity Limitations: as noted below . Instructions / Follow-Up Instructions / Follow-Up Activity and Therapy Recommendations: * Wear your sling for 3 weeks, unless otherwise instructed. You may remove your sling to shower and to dress, but otherwise, you should be in your sling at all times, including while sleeping * The shoulder replacement is very stable and you can use your hand while in the sling * Physical Therapy should start about 3-5 days from your day of surgery. Therapy will last about 8-12 weeks * You were shown a series of exercises in the hospital. Do these exercises daily including the exercises you were shown in physical therapy. Medications: * Narcotic You will likely be sent home from the hospital with a prescription for the narcotic pain medication that worked best throughout your stay. * Other medications may be prescribed for specific circumstances. If you have any questions, please call the office at . * Resume previous home medications unless otherwise instructed Dressing Care: If the incision is not draining then you may leave the kari open to air. If there is a little bit of drainage or if the kari are getting stuck on your clothing then cover the incision with a dry dressing. The kari will be removed at your 2 week follow-up appointment. Showering: You may shower 5 days from the day of surgery. Let the soapy shower water run over the kari and pat them dry. Do not scrub or soak the incision. Things To Watch For: * Drainage from the incision site that occurs more than one week after your surgery. * Increased redness at the incision site. * Fever above 102 degrees Fahrenheit. * Unusual chest pain or shortness of breath. * Call [facility] at with any of the above problems Follow-Up Visit: Follow-up with Dr. New 2 weeks after your day of surgery. An appointment was probably scheduled when you signed-up for surgery in the office. If you have any questions call Office Instructions: More detailed instructions as well as Frequently Asked Questions were provided in a folder by our office when you signed-up for surgery. Please review these instructions when you get home. If you have any further questions or concerns, please feel free to call the office at [phone] Current Hospital Diet Patient's current hospital diet: Diabetes Type 2 Diet Discharge Diet Recommended Diet: Diabetes Type 2 Diet Procedures Procedures Performed: Hardware Removal, Reverse Left Total Shoulder Arthroplasty Pending Studies Studies pending at discharge: no Laboratory Results Hemoglobin A1c Test 08/26/17 11:59 Range/Units Estimated Average Glucose 232 mg/dl Hemoglobin A1c 9.7 H 4.5-5.6 % Medical Emergencies . Who to Call and When: Medical Emergencies: If at any time you feel your situation is an emergency, please call 911 immediately. . Non-Emergent Contact Non-Emergency issues call your: Surgeon Call Non-Emergent contact if: wound has increased drainage, wound has increased redness . "Provider Documentation" section prepared by Juan Jose New. .
--- NOTE | 2017-09-21 08:10 | PROGRESS NOTE ---
DATE: 09/21/2017 CHIEF COMPLAINT: Status post removal of hardware and conversion to reverse left shoulder arthroplasty postop day #1. PROGRESS: Jerri was seen and examined at bedside today. Overall, she is doing very well. She has very little pain in her left shoulder. She was able to get some sleep last night. She is wearing her sling as instructed. She has no complaints. PHYSICAL EXAMINATION: LEFT SHOULDER: She is wearing her sling. The dressing is clean and dry. Her radial, median and ulnar nerves are all checked and intact at her wrist. Her axillary nerve was not definitively checked yet. LABORATORY DATA: She has an H&H today of 10.7 and 33.5. Her creatinine is elevated to 3.06. Her glucose is 158. Her vital signs are all stable on room air and she is voiding on her own. X-rays postoperatively of the left shoulder show the prosthesis to be in anatomic alignment without any evidence of fracture, dislocation or loosening. IMPRESSION: Status post removal of hardware and conversion to reverse left shoulder arthroplasty postop day #1. PLAN: At this point, she is doing very well. I am going to stop her Toradol and I encouraged her to continue p.o. fluid intake because of her elevated creatinine levels. She does her own insulin sliding scale at home and I advised her that her sugar is going to be elevated anywhere from 48-72 hours and she understands that. She is feeling fine. She has no complaints. She will get physical therapy this morning. We will likely discharge her to home after therapy.
[2017-09-21] MEDS: DOCUSATE SODIUM 100 MG CAP PO SCH (08:35)
[2017-09-21] MEDS: INSULIN ASPART 100 UNITS/ML 3 ML PEN SC SCH (08:43)
[2017-09-21] MEDS: BusPIRone 15 MG TAB PO SCH (08:43)
[2017-09-21] MEDS ORDERED: FENOFIBRATE 145 MG TAB PO SCH (09:00)
[2017-09-21] MEDS ORDERED: LISINOPRIL 40 MG TAB PO SCH (09:00)
[2017-09-21] MEDS ORDERED: ASPIRIN 81 MG ECTAB PO SCH (09:00)
[2017-09-21] MEDS ORDERED: ESCITALOPRAM OXALATE 20 MG TAB PO SCH (09:00)
[2017-09-21] MEDS ORDERED: MAGNESIUM OXIDE 400 MG TAB PO SCH (09:00)
[2017-09-21] MEDS ORDERED: MULTIVITAMIN TAB PO SCH (09:00)
[2017-09-21] MEDS ORDERED: METOPROLOL SUCC 50MG EXT REL TAB PO SCH (09:00)
[2017-09-21] MEDS ORDERED: HYDROCHLOROTHIAZIDE 50 MG TAB PO SCH (09:00)
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
[2017-09-21 10:18] VITALS: BP 104/65; PULSE 64; TEMP 36.8; O2SAT 91
== END 2017-09-21 11:40 | disposition home health service (06) | DRG 483 ==
LOC: C.ACU 11:25 → C.3E 15:49 → ENRESERV 16:46
PROVIDERS: ADMIT Orthopaedic Surgery; ATTEND Orthopaedic Surgery
PROC: 0KN Muscles, Release (ICD-10-PCS; principal; 2017-09-20 13:10)
PROC: 0RRK00Z Replacement of Left Shoulder Joint with Reverse Ball and Socket Synthetic Substitute, Open Approach (ICD-10-PCS; principal; 2017-09-20 13:10)
PROC: 0PPD04Z Removal of Internal Fixation Device from Left Humeral Head, Open Approach (ICD-10-PCS; principal; 2017-09-20 13:10)
DX: T84.191A Other mechanical complication of internal fixation device of left humerus, initial encounter (principal); M87.222 Osteonecrosis due to previous trauma, left humerus; Z68.43 Body mass index [BMI] 50.0-59.9, adult; Y79.2 Prosthetic and other implants, materials and accessory orthopedic devices associated with adverse incidents; M62.412 Contracture of muscle, left shoulder; M89.722 Major osseous defect, left humerus; S42.202S Unspecified fracture of upper end of left humerus, sequela; V89.2XXS Person injured in unspecified motor-vehicle accident, traffic, sequela; Z47.2 Encounter for removal of internal fixation device; I12.9 Hypertensive chronic kidney disease with stage 1 through stage 4 chronic kidney disease, or unspecified chronic kidney disease; E11.22 Type 2 diabetes mellitus with diabetic chronic kidney disease; N18.3 Chronic kidney disease, stage 3 (moderate); E78.5 Hyperlipidemia, unspecified; K74.60 Unspecified cirrhosis of liver; F41.9 Anxiety disorder, unspecified; F32.9 Major depressive disorder, single episode, unspecified; E66.01 Morbid (severe) obesity due to excess calories; G47.33 Obstructive sleep apnea (adult) (pediatric); Z99.89 Dependence on other enabling machines and devices; Z79.82 Long term (current) use of aspirin; Z86.19 Personal history of other infectious and parasitic diseases; Z79.4 Long term (current) use of insulin; Z79.899 Other long term (current) drug therapy; Z88.8 Allergy status to other drugs, medicaments and biological substances

== ENCOUNTER → 2017-10-01 | Outpatient (CLI) | payer OTHER ==
[~2017-10-01] MED LIST changes: -ACETAMINOPHEN 500 MG TAB PO SCH; -CEFAZOLIN 3000MG IV PUSH 22.5 ML IV SCH; -FAMOTIDINE 20 MG TAB PO SCH; -GABAPENTIN 300 MG CAP PO SCH; -INSU1.2I SC; -LACTATED RINGER'S 1000ML 1,000 ML IV SCH; -LACTATED RINGER'S 1000ML IV SCH; -ROPIVACAINE 0.5% 5 MG/ML 30 ML VIAL ONE; -ROPIVACAINE 5MG/ML 30 ML 150 MG, BUPIVACAINE 0.5% MPF INJ 30 ML, EpINEphrine HCL INJ 0.... INFIL SCH; +RXC5 PO
[2017-10-01 17:24] LABS: ALBUMIN 2.9 gm/dl (3.4-5.0); BLOOD UREA NITROGEN 38 mg/dl (7-18); CALCIUM 10.2 mg/dl (8.5-10.1); CARBON DIOXIDE 29 mmol/L (21-32); GLUCOSE 77 mg/dl (70-99); POTASSIUM 3.9 mmol/L (3.5-5.1); SODIUM 142 mmol/L (136-145)
[2017-10-01 17:34] LABS: PHOSPHORUS 4.5 mg/dl (2.5-4.9)
== END | disposition home or self-care (01) ==
LOC: C.LABPBG 14:34
PROVIDERS: ATTEND Internal Medicine Nephrology
DX: N18.2 Chronic kidney disease, stage 2 (mild) (principal); E03.9 Hypothyroidism, unspecified

== ENCOUNTER → 2017-10-07 | Outpatient (CLI) | payer OTHER ==
[2017-10-07 17:04] LABS: ALBUMIN 3.1 gm/dl (3.4-5.0); BLOOD UREA NITROGEN 38 mg/dl (7-18); CALCIUM 9.8 mg/dl (8.5-10.1); CARBON DIOXIDE 31 mmol/L (21-32); CREATININE 1.41 mg/dl (0.60-1.20); GLUCOSE 55 mg/dl (70-99); POTASSIUM 3.5 mmol/L (3.5-5.1); SODIUM 143 mmol/L (136-145)
== END | disposition home or self-care (01) ==
LOC: C.LAB1850 15:15
PROVIDERS: ATTEND Internal Medicine Nephrology
DX: E83.52 Hypercalcemia (principal); E55.9 Vitamin D deficiency, unspecified

== ENCOUNTER 2017-12-30 20:43 | Inpatient (IN) | payer OTHER ==
[~2017-12-30] VITALS: Ht 172.7 cm; Wt 164.0 kg
[~2017-12-30 20:43] MED LIST changes: -CHOLCAP5 PO; -LSN40 PO; -LXP/20 PO; -MAGN400T6 PO
[2017-12-30] MEDS ORDERED: ALBUT/IPRATROP 3MG/0.5MG NEB 3 ML VIAL INH STA (21:03)
[2017-12-30] MEDS ORDERED: LXP/20 PO (21:14)
[2017-12-30] MEDS ORDERED: LISI40TA3 PO (21:14)
[2017-12-30] MEDS ORDERED: OPTIRAY 320 IV PRN (21:15)
[2017-12-30] MEDS ORDERED: MAGN400T6 PO (21:17)
[2017-12-30] MEDS ORDERED: CHOLCAP5 PO (21:17)
--- NOTE | 2017-12-30 21:29 | DIAGNOSTIC IMAGING REPORT ---
CHEST ONE VIEW PORTABLE CLINICAL HISTORY: 57 years-old Female presenting with EVALUATE RESPIRATORY DISTRESS.DYSPNEA. TECHNIQUE: Portable upright AP view of the chest was obtained. COMPARISON: 08/26/2017. FINDINGS: Atherosclerosis of aortic arch. Cardiac silhouette enlarged. Pulmonary vascular prominence new from prior. No focal opacity. No large effusion or pneumothorax. Degenerative changes of the thoracic spine. Reverse left total shoulder arthroplasty. Upper abdomen normal. IMPRESSION: 1. Cardiomegaly with mild volume overload. No florinda pulmonary edema. Electronically signed by: Geraldo Aaron M.D. 12/30/2017 9:28 PM Dictated Date/Time: 12/30/2017 9:27 PM
--- NOTE | 2017-12-30 21:38 | EMERGENCY ROOM VISIT NOTE ---
History Report prepared by Thiago: Lesvia Hernandez Under the Supervision of: Dr. Bryn Salinas M.D. First contact with patient: 20:50 Chief Complaint: REFERRED BY DOCTOR Stated Complaint: REFERRED BY DR FOR LOW OXYGEN LEVELS 84% History of Present Illness The patient is a 57 year old female who presents to the Emergency Room with a referral by her doctor today for low oxygen levels. The patient states that her oxygen level has been low over the last several weeks and today. She states that she recently gained 7 pounds from fluid and states that she has had a cough for over 3 weeks. The patient reports that her doctors stated concern for dehydration even though she was retaining fluid. She states that 9 days ago she has given an inhaler and a Z pack for her wheezing and cough. The patient reports that she then developed a rash in the back of her head and that she had it checked out earlier today. She states that when she got the rash checked out her pulse ox was at 84% and she was referred here. She reports that last week her oxygen level was around 87 but only briefly, it improved when she sat and rested. She denies having asthma or COPD and states that she does not smoke. The patient reports a history of a double pneumonia 9 years ago. Per family, the patient was unable to recall her date or middle name today and states that this is unusual for the patient. The patient reports having worsening shortness of breath that is exacerbated when she walks around. The patient denies any recent travel and denies a history of blood clots in her legs or lungs. The patient reports a family history of an ischemic stroke. Source of History: patient, family Onset: over the several weeks Position: other (generalized ) Quality: other (referral for low oxygen levels ) Modifying Factors (Worsening): movement Associated Symptoms: + cough, + SOB, + rash Review of Systems See HPI for pertinent positives & negatives. A total of 10 systems reviewed and were otherwise negative. Past Medical & Surgical Medical Problems: (1) Anxiety (2) Avascular necrosis of head of humerus (3) Chronic low back pain (4) Depression (5) Diabetes (6) Hyperlipemia (7) Hypertension (8) Hypothyroidism (9) jaw surgery (10) left shoulder surgery Surgical Problems: (1) Hx of cholecystectomy Family History Cancer Diabetes mellitus FH: stroke Heart disease Hypertension Kidney disease Kidney stones Seizures Social History Smoking Status: Never Smoker Alcohol Use: none Marital Status: single Housing Status: lives with family Current/Historical Medications Scheduled Amitriptyline HCl (Amitriptyline HCl), 20 MG PO HS Aspirin (Aspirin Ec), 81 MG PO QAM Atorvastatin (Lipitor), 80 MG PO HS Buspirone Hcl (Buspirone Hcl), 30 MG PO BID Cholecalciferol (Vitamin D3), 5,000 INTER.UNIT PO QAM Dulaglutide (Trulicity), 1.5 MG SC WK Escitalopram Oxalate (Escitalopram Oxalate), 30 MG PO QAM Fenofibrate (Fenofibrate), 145 MG PO QAM Hydrochlorothiazide (Hydrochlorothiazide), 25 MG PO QAM Insulin Glargine (Basaglar Kwikpen), 120 UNITS SC HS Insulin Lispro (Human) (Humalog Kwikpen), 1 DOSE SC AC Levothyroxine Sodium (Levothyroxine Sodium), 50 MCG PO QAM Lisinopril (Lisinopril), 40 MG PO QAM Magnesium Oxide (Mag-Ox), 400 MG PO QAM Metoprolol Succinate (Metoprolol Succinate ER), 100 MG PO QAM Zinc Gluconate (Zinc), 100 MG PO HS Scheduled PRN Albuterol Hfa (Ventolin Hfa), 2 PUFFS INH Q4-6HRS PRN for SOB/Wheezing Lorazepam (Ativan), 0.5 MG PO QID PRN for Anxiety Allergies Coded Allergies: Promethazine (Verified Allergy, Unknown, BROKEN CAPILLARIES FACE, 12/30/17) Physical Exam Vital Signs Date Time Temp Pulse Resp B/P (MAP) Pulse Ox O2 Delivery O2 Flow Rate FiO2 12/30/17 23:43 78 18 157/72 97 Nasal Cannula 2.0 12/30/17 22:19 80 18 157/67 95 Nasal Cannula 2.0 12/30/17 22:19 79 12/30/17 22:15 16 87 Room Air 12/30/17 22:00 Room Air 12/30/17 20:46 36.9 82 22 206/95 93 Room Air Physical Exam GENERAL: Patient is in no acute distress. HEENT: No acute trauma, normocephalic atraumatic, mucous membranes moist, no nasal congestion, no scleral icterus. NECK: No stridor, no adenopathy, no meningismus, trachea is midline. LUNGS: Clear to auscultation bilaterally, no wheeze, no rhonchi, breath sounds equal. HEART: 2/6 systolic murmur. Regular rate and rhythm. ABDOMEN: Soft, nontender, bowel sounds positive, no hernias, no peritonitis. EXTREMITIES: No cyanosis, mild bilateral pedal edema, full range of motion of all the joints without pain or difficulty, no signs for acute trauma. NEUROLOGIC: Oriented x 3, no acute motor or sensory deficits, no focal weakness. SKIN: No rash, no jaundice, no diaphoresis. Medical Decision & Procedures ER Provider Diagnostic Interpretation: Radiology results as stated below per my review and radiologist interpretation: CHEST ONE VIEW PORTABLE CLINICAL HISTORY: 57 years-old Female presenting with EVALUATE RESPIRATORY DISTRESS.DYSPNEA. TECHNIQUE: Portable upright AP view of the chest was obtained. COMPARISON: 08/26/2017. FINDINGS: Atherosclerosis of aortic arch. Cardiac silhouette enlarged. Pulmonary vascular prominence new from prior. No focal opacity. No large effusion or pneumothorax. Degenerative changes of the thoracic spine. Reverse left total shoulder arthroplasty. Upper abdomen normal. IMPRESSION: 1. Cardiomegaly with mild volume overload. No florinda pulmonary edema. Electronically signed by: Geraldo Aaron M.D. 12/30/2017 9:28 PM Dictated Date/Time: 12/30/2017 9:27 PM Radiology results as stated below per my review and [facility]. CT CHEST With Contrast: No evidence of filling defect to suggest embolism. Thoracic aorta within limits. Heavy proximal LAD coronary calcification and/or stent No pericardial or pleural effusion Small patchy area of opacity at the left base may be related to atelectasis or developing pneumonia. Partial collapse right middle lobe Central airways appear patent [place] artifact from left shoulder replacement Laboratory Results 12/30/17 21:35 Red Blood Count 4.20, Mean Corpuscular Volume 86.2, Mean Corpuscular Hemoglobin 27.4, Mean Corpuscular Hemoglobin Concent 31.8, Mean Platelet Volume 10.5, Neutrophils (%) (Auto) 59.7, Lymphocytes (%) (Auto) 30.2, Monocytes (%) (Auto) 6.5, Eosinophils (%) (Auto) 2.8, Basophils (%) (Auto) 0.4, Neutrophils # (Auto) 4.00, Lymphocytes # (Auto) 2.03, Monocytes # (Auto) 0.44, Eosinophils # (Auto) 0.19, Basophils # (Auto) 0.03 12/30/17 21:35 Test 12/30/17 21:35 White Blood Count 6.72 K/uL (4.8-10.8) Red Blood Count 4.20 M/uL (4.2-5.4) Hemoglobin 11.5 g/dL (12.0-16.0) Hematocrit 36.2 % (37-47) Mean Corpuscular Volume 86.2 fL (80-100) Mean Corpuscular Hemoglobin 27.4 pg (25-34) Mean Corpuscular Hemoglobin Concent 31.8 g/dl (32-36) Platelet Count 200 K/uL (130-400) Mean Platelet Volume 10.5 fL (7.4-10.4) Neutrophils (%) (Auto) 59.7 % Lymphocytes (%) (Auto) 30.2 % Monocytes (%) (Auto) 6.5 % Eosinophils (%) (Auto) 2.8 % Basophils (%) (Auto) 0.4 % Neutrophils # (Auto) 4.00 K/uL (1.4-6.5) Lymphocytes # (Auto) 2.03 K/uL (1.2-3.4) Monocytes # (Auto) 0.44 K/uL (0.11-0.59) Eosinophils # (Auto) 0.19 K/uL (0-0.5) Basophils # (Auto) 0.03 K/uL (0-0.2) RDW Standard Deviation 46.0 fL (36.4-46.3) RDW Coefficient of Variation 14.6 % (11.5-14.5) Immature Granulocyte % (Auto) 0.4 % Immature Granulocyte # (Auto) 0.03 K/uL (0.00-0.02) Prothrombin Time 10.6 SECONDS (9.0-12.0) Prothromb Time International Ratio 1.0 (0.9-1.1) Activated Partial Thromboplast Time 23.2 SECONDS (21.0-31.0) Partial Thromboplastin Ratio 0.9 Anion Gap 7.0 mmol/L (3-11) Est Creatinine Clear Calc Drug Dose 72.0 ml/min Estimated GFR () 46.3 Estimated GFR (Non- 40.0 BUN/Creatinine Ratio 22.3 (10-20) Calcium Level 9.1 mg/dl (8.5-10.1) Magnesium Level 1.5 mg/dl (1.8-2.4) Total Bilirubin 0.3 mg/dl (0.2-1) Aspartate Amino Transf (AST/SGOT) 23 U/L (15-37) Alanine Aminotransferase (ALT/SGPT) 21 U/L (12-78) Alkaline Phosphatase 68 U/L (45-117) Troponin I < 0.015 ng/ml (0-0.045) Total Protein 6.4 gm/dl (6.4-8.2) Albumin 2.9 gm/dl (3.4-5.0) Globulin 3.5 gm/dl (2.5-4.0) Albumin/Globulin Ratio 0.8 (0.9-2) Free Thyroxine 1.11 ng/dl (0.80-1.60) Laboratory results reviewed by me. Medications Administered Medications (Trade) Dose Ordered Sig/Greyson Route Start Time Stop Time Status Last Admin Dose Admin Albuterol/ Ipratropium (Duoneb) 3 ml NOW STAT INH 12/30/17 21:03 12/30/17 21:06 DC 12/30/17 21:47 3 ML Lorazepam (Ativan Inj) 1 mg NOW STAT IV 12/30/17 22:19 12/30/17 22:21 DC 12/30/17 22:52 1 MG Magnesium Sulfate (Magnesium Sulfate 1gm / D5W) 1 gm NOW STAT IV 12/30/17 22:19 12/30/17 22:21 DC 12/30/17 23:40 1 GM Magnesium Oxide (Mag-Ox Tab) 400 mg NOW STAT PO 12/30/17 22:19 12/30/17 22:21 DC 12/30/17 23:39 400 MG ECG Per My Interpretation Indication: SOB/dyspnea Rate (beats per minute): 80 Rhythm: normal sinus Findings: other (no ST elevations, no PVCs, possible old anterolateral infarct) ED Course 2053: The patient was evaluated in room B11B. A complete history and physical exam was performed. 2102: Ordered Duoneb 3 ml INH. 2218: Ordered Magnesium Oxide 400 mg PO, Magnesium Sulfate 1 gm IV, Lorazepam 1 mg IV. 2249:I checked on the patient. She said that the Ativan helped her and that she believes that she can undergo the CT scan just fine. 0019: Upon reexamination the patient is resting. I discussed results and treatment plan with the patient. She verbalizes agreement and understanding. I spoke with Dr. Childress of the [facility]. We discussed the patient's results and findings. The patient will be evaluated by Dr. Childress for further management. Medical Decision The patient is a 57 year old female who presents to the ED with complaints of low oxygen levels. Differential diagnoses considered include pneumonia or bronchitis, CHF, anemia, GA, pneumothorax, renal failure, PE, and failed outpatient treatment. There is no leukocytosis or concerning anemia. Magnesium was low at 1.5. Creatinine was mildly elevated. No hepatitis. T4 level was normal. Chest film did not show pneumonia, pneumothorax or mediastinal widening. EKG showed a sinus rhythm, no acute ischemia. Cardiac enzyme testing 1 is not consistent with acute cardiac injury. Chest CT did not show PE, a possible small pneumonia was seen. Patient was hypoxic in our ED, she required O2 supplementation. The patient presents with 3 weeks of a cough. She had a low O2 saturation in the outpatient office, this was confirmed by our ER nurses. She was placed on nasal cannula O2. She received a DuoNeb, she received IV and oral magnesium. She was given IV Zosyn as antibiotic coverage. The patient presents hypoxic. She either has a small pneumonia or maybe a bronchitis. She is not stable for outpatient management. She has failed outpatient therapy. I did speak with the patient and case management. The on- call hospitalist was consulted. Medication Reconcilliation Current Medication List: was personally reviewed by me Blood Pressure Screening Patient's blood pressure: Elevated blood pressure monitored by hospitalist Consults Time Called: 13 Consulting Physician: Dr. Childress- [facility] Returned Call: 18 Discussed the patient's case. The patient will be evaluated for further management. Impression Primary Impression: Hypoxia Additional Impression: SOB (shortness of breath) Scribe Attestation The scribe's documentation has been prepared under my direction and personally reviewed by me in its entirety. I confirm that the note above accurately reflects all work, treatment, procedures, and medical decision making performed by me. Departure Information Dispostion Being Evaluated By Hospitalist Referrals RV. Howell MD (PCP) Patient Instructions Count Includes [facility] Problem Qualifiers
[2017-12-30 21:50] LABS: BASO % 0.4 %; BASO ABS # 0.03 K/uL (0-0.2); EOS % 2.8 %; EOS ABS # 0.19 K/uL (0-0.5); HEMATOCRIT 36.2 % (37-47); HEMOGLOBIN 11.5 g/dL (12.0-16.0); IG# 0.03 K/uL (0.00-0.02); LYMPH % 30.2 %; LYMPH ABS # 2.03 K/uL (1.2-3.4); MEAN CELL VOLUME 86.2 fL (80-100); MEAN CORPUSCULAR HEMOGLOBIN 27.4 pg (25-34); MEAN CORPUSCULAR HGB CONC 31.8 g/dl (32-36); MEAN PLATELET VOLUME 10.5 fL (7.4-10.4); MONO % 6.5 %; MONO ABS # 0.44 K/uL (0.11-0.59); NEUT % 59.7 %; PLATELET COUNT 200 K/uL (130-400); RED CELL DISTRIBUTION WIDTH CV 14.6 % (11.5-14.5); WHITE BLOOD COUNT 6.72 K/uL (4.8-10.8)
[2017-12-30 22:00] LABS: PTT PATIENT 23.2 SECONDS (21.0-31.0)
[2017-12-30 22:18] LABS: ALBUMIN 2.9 gm/dl (3.4-5.0); ALKALINE PHOSPHATASE 68 U/L (45-117); ALT/SGPT 21 U/L (12-78); AST/SGOT 23 U/L (15-37); BLOOD UREA NITROGEN 32 mg/dl (7-18); CALCIUM 9.1 mg/dl (8.5-10.1); CARBON DIOXIDE 26 mmol/L (21-32); CREATININE 1.43 mg/dl (0.60-1.20); GLUCOSE 193 mg/dl (70-99); SODIUM 143 mmol/L (136-145); TOTAL PROTEIN 6.4 gm/dl (6.4-8.2)
[2017-12-30] MEDS ORDERED: LORAZEPAM 2 MG/ML 1 ML VIAL IV STA (22:19)
[2017-12-30] MEDS ORDERED: MAGNESIUM SULFATE 1GM / D5W 1 GM BAG IV STA (22:19)
[2017-12-30] MEDS ORDERED: MAGNESIUM OXIDE 400 MG TAB PO STA (22:19)
[2017-12-30] MEDS ORDERED: AMT10 PO (22:22)
[2017-12-30] MEDS ORDERED: FENO145T24 PO (22:22)
[2017-12-30] MEDS ORDERED: VNTHFA/IN INH (22:22)
[2017-12-30] MEDS ORDERED: INSU1INJ31 SC (22:22)
[2017-12-30] MEDS ORDERED: TPRSR/100 PO (22:22)
[2017-12-30] MEDS ORDERED: HYDR25TA5 PO (22:22)
[2017-12-30] MEDS ORDERED: DULA0.5I SC (22:22)
[2017-12-30] MEDS ORDERED: INSU100I23 SC (22:22)
[2017-12-31] VITALS (7 sets, daily range): BP systolic 132–144; BP diastolic 71–78; PULSE 69–94; TEMP 36.6–37; O2SAT 92–97
[2017-12-31] MEDS ORDERED: PIPERACILLIN/TAZOBACTAM 4.5 GM/100ML D5W IV STA (00:32)
[2017-12-31] MEDS ORDERED: ACETAMINOPHEN 325 MG TAB PO PRN (02:30)
[2017-12-31] MEDS ORDERED: LORAZEPAM 0.5 MG TAB PO PRN (02:30)
[2017-12-31] MEDS ORDERED: GLUCOSE 40% GEL 15 GM TUBE PO PRN (02:30)
[2017-12-31] MEDS ORDERED: DC ALL PREVIOUSLY ORDERED DIABETES MEDS ONE (02:30)
[2017-12-31] MEDS ORDERED: CARBOHYDRATES FOR HYPOGLYCEMIA PO PRN (02:30)
[2017-12-31] MEDS ORDERED: GLUCOSE 10 TABS/TUBE PO PRN (02:30)
[2017-12-31] MEDS ORDERED: ALBUTEROL HFA 8 GM INHALER INH PRN (02:30)
[2017-12-31] MEDS ORDERED: GLUCAGON FOR INJ 1 MG VIAL SQ PRN (02:30)
[2017-12-31] MEDS ORDERED: DEXTROSE 50% 50 ML SYR IV PRN (02:30)
[2017-12-31] MEDS ORDERED: ONDANSETRON INJ 2 MG/ML 2 ML VIAL IV PRN (02:30)
--- NOTE | 2017-12-31 02:55 | History and Physical ---
History & Physical Date & Time of Service: Dec 31, 2017 at 02:27 Chief Complaint: Referred By For Low Oxygen Levels 84% Primary Care Physician: RV. Howell MD History of Present Illness Source: patient 57yo female with history of CKD Stage III, cirrhosis, DM, HTN presenting with 3 weeks of dry cough, progressive SALAZAR/SOB and weight gain of appx 10 # in 3 weeks. Patient states that her cough started 3 weeks ago, dry/nonproductive. She was seen in Urgent Care on Saturday and was noted to have a mild wheeze. She was prescribed Azithromycin and given an Albuterol inhaler with minimal improvement in symptoms. She was seen in Urgent Care this evening for an unrelated issue, however, found to be hypoxic with SaO2 84-89% on room air. Patient denies history of Asthma/COPD. Denies fevers/chills/sweats. Denies CP/ palpitations/dizziness. She does report worsening bilateral LE edema and unintentional weight gain over the last 3 weeks. On arrival to the ER patient with O2 sat of 87% on room air. She was placed on 2L supplemental O2 with improvement to 93% Patient had a recent nuclear stress test on 08/22 which was negative for ischemia , normal LV size and function. Mild LVH. Normal RV size and function. Aortic valve sclerosis without stenosis. Grade 1 diastolic dysfunction. ER Course: Zosyn 4.5 gm, Ativan, Magnesium Sulfate, Magnesium oxide, DuoNeb Past Medical/Surgical History Medical Problems: CKD III Cirrhosis secondary to fatty liver disease Anxiety Diabetes Hypertension Back Pain Depression Surgical Problems: (1) Hx of cholecystectomy Jaw surgery Shoulder replacement Family History Cancer Diabetes mellitus FH: stroke Heart disease Hypertension Kidney disease Kidney stones Seizures Social History Smoking Status: Never Smoker Smokeless Tobacco Use: No Alcohol Use: none Drug Use: none Marital Status: single Housing status: lives alone Allergies Coded Allergies: Promethazine (Verified Allergy, Unknown, BROKEN CAPILLARIES FACE, 12/30/17) Home Medications Scheduled Amitriptyline HCl (Amitriptyline HCl), 20 MG PO HS Aspirin (Aspirin Ec), 81 MG PO QAM Atorvastatin (Lipitor), 80 MG PO HS Buspirone Hcl (Buspirone Hcl), 30 MG PO BID Cholecalciferol (Vitamin D3), 5,000 INTER.UNIT PO QAM Dulaglutide (Trulicity), 1.5 MG SC WK Escitalopram Oxalate (Escitalopram Oxalate), 30 MG PO QAM Fenofibrate (Fenofibrate), 145 MG PO QAM Hydrochlorothiazide (Hydrochlorothiazide), 25 MG PO QAM Insulin Glargine (Basaglar Kwikpen), 120 UNITS SC HS Insulin Lispro (Human) (Humalog Kwikpen), 1 DOSE SC AC Levothyroxine Sodium (Levothyroxine Sodium), 50 MCG PO QAM Lisinopril (Lisinopril), 40 MG PO QAM Magnesium Oxide (Mag-Ox), 400 MG PO QAM Metoprolol Succinate (Metoprolol Succinate ER), 100 MG PO QAM Zinc Gluconate (Zinc), 100 MG PO HS Scheduled PRN Albuterol Hfa (Ventolin Hfa), 2 PUFFS INH Q4-6HRS PRN for SOB/Wheezing Lorazepam (Ativan), 0.5 MG PO QID PRN for Anxiety Review of Systems Constitutional: No fever, No chills, No sweats, No weight loss, No weakness Eyes: No worsening of vision ENT: No sore throat Respiratory: + cough, + wheezing, + shortness of breath, + dyspnea on exertion , + dyspnea at rest, No sputum, No hemoptysis Cardiovascular: + edema, No chest pain, No orthopnea, No palpitations Abdomen: No pain, No nausea, No vomiting, No diarrhea, No constipation Musculoskeletal: No joint pain Genitourinary - Female: No dysuria Neurologic: No weakness Endocrine: No fatigue Hematologic / Lymphatic: No abnormal bleeding/bruising Integumentary: No rash Physical Exam Vital Signs Date Time Temp Pulse Resp B/P (MAP) Pulse Ox O2 Delivery O2 Flow Rate FiO2 12/31/17 02:18 77 12/31/17 01:43 78 18 152/53 93 Nasal Cannula 2.0 12/30/17 23:43 78 18 157/72 97 Nasal Cannula 2.0 12/30/17 22:19 80 18 157/67 95 Nasal Cannula 2.0 12/30/17 22:19 79 12/30/17 22:15 16 87 Room Air 12/30/17 22:00 Room Air 12/30/17 20:46 36.9 82 22 206/95 93 Room Air General: patient resting comfortably in bed, NAD, AA&O x 4 Skin: warm, dry, intact, no rashes or lesions HEENT: NC/AT, PERRL, EOMI, anicteric sclera, conjunctiva without injection, nares patent, moist mucus membranes, no oropharyngeal lesions, neck supple, trachea midline, no thyromegaly, no LAD Heart: +S1/S2, regular, no m/r/g Lungs: equal air entry bilaterally, no rales/rhonchi, faint end expiratory wheeze noted in RUL Abdomen: soft, NT/ND, no masses/organomegaly/ascites Extremities: warm, well perfused, no clubbing/cyanosis, 1+ edema of bilateral LE, 2+ palpable pulses in UE/LE bilaterally Neuro: grossly nonfocal Diagnostics Laboratory Results Results Past 24 Hours Test 12/30/17 21:35 Range/Units White Blood Count 6.72 4.8-10.8 K/uL Red Blood Count 4.20 4.2-5.4 M/uL Hemoglobin 11.5 12.0-16.0 g/dL Hematocrit 36.2 37-47 % Mean Corpuscular Volume 86.2 80-100 fL Mean Corpuscular Hemoglobin 27.4 25-34 pg Mean Corpuscular Hemoglobin Concent 31.8 32-36 g/dl Platelet Count 200 130-400 K/uL Mean Platelet Volume 10.5 7.4-10.4 fL Neutrophils (%) (Auto) 59.7 % Lymphocytes (%) (Auto) 30.2 % Monocytes (%) (Auto) 6.5 % Eosinophils (%) (Auto) 2.8 % Basophils (%) (Auto) 0.4 % Neutrophils # (Auto) 4.00 1.4-6.5 K/uL Lymphocytes # (Auto) 2.03 1.2-3.4 K/uL Monocytes # (Auto) 0.44 0.11-0.59 K/uL Eosinophils # (Auto) 0.19 0-0.5 K/uL Basophils # (Auto) 0.03 0-0.2 K/uL RDW Standard Deviation 46.0 36.4-46.3 fL RDW Coefficient of Variation 14.6 11.5-14.5 % Immature Granulocyte % (Auto) 0.4 % Immature Granulocyte # (Auto) 0.03 0.00-0.02 K/uL Prothrombin Time 10.6 9.0-12.0 SECONDS Prothromb Time International Ratio 1.0 0.9-1.1 Activated Partial Thromboplast Time 23.2 21.0-31.0 SECONDS Partial Thromboplastin Ratio 0.9 Sodium Level 143 136-145 mmol/L Potassium Level 4.0 3.5-5.1 mmol/L Chloride Level 110 98-107 mmol/L Carbon Dioxide Level 26 21-32 mmol/L Anion Gap 7.0 3-11 mmol/L Blood Urea Nitrogen 32 7-18 mg/dl Creatinine 1.43 0.60-1.20 mg/dl Est Creatinine Clear Calc Drug Dose 72.0 ml/min Estimated GFR () 46.3 Estimated GFR (Non- 40.0 BUN/Creatinine Ratio 22.3 10-20 Random Glucose 193 70-99 mg/dl Calcium Level 9.1 8.5-10.1 mg/dl Magnesium Level 1.5 1.8-2.4 mg/dl Total Bilirubin 0.3 0.2-1 mg/dl Aspartate Amino Transf (AST/SGOT) 23 15-37 U/L Alanine Aminotransferase (ALT/SGPT) 21 12-78 U/L Alkaline Phosphatase 68 45-117 U/L Troponin I < 0.015 0-0.045 ng/ml Total Protein 6.4 6.4-8.2 gm/dl Albumin 2.9 3.4-5.0 gm/dl Globulin 3.5 2.5-4.0 gm/dl Albumin/Globulin Ratio 0.8 0.9-2 Free Thyroxine 1.11 0.80-1.60 ng/dl Microbiology Results 12/30/17 Blood Culture, Received Pending 12/30/17 Blood Culture, Received Pending Diagnostic Radiology CHEST ONE VIEW PORTABLE CLINICAL HISTORY: 57 years-old Female presenting with EVALUATE RESPIRATORY DISTRESS.DYSPNEA. TECHNIQUE: Portable upright AP view of the chest was obtained. COMPARISON: 08/26/2017. FINDINGS: Atherosclerosis of aortic arch. Cardiac silhouette enlarged. Pulmonary vascular prominence new from prior. No focal opacity. No large effusion or pneumothorax. Degenerative changes of the thoracic spine. Reverse left total shoulder arthroplasty. Upper abdomen normal. IMPRESSION: 1. Cardiomegaly with mild volume overload. No florinda pulmonary edema. Electronically signed by: Geraldo Aaron M.D. 12/30/2017 9:28 PM Dictated Date/Time: 12/30/2017 9:27 PM Normal EKG Impression Assessment and Plan 57yo female with 3 weeks of nonproductive cough, progressive SALAZAR/SOB as well as LE edema and weight gain. Patient found to be hypoxic in outpatient clinic, confirmed in ER with SaO2 of 87% on room air while at rest. 1. Hypoxia - improved with supplemental O2. No respiratory distress. Ddx to include volume overload secondary to decreased liver/kidney function, less likely cardiac etiology as patient with recent normal dobutamine stress echo. CXR/CT with no evidence of infection, no PE, no underlying pulmonary disease. -Continue supplemental O2 for goal SaO2 >92% -Check BNP -Daily weights, strict I/O's -Lasix 40mg IV x 1 -Albuterol PRN -Robitussin PRN 2. Diabetes - blood sugar 193 presently. -Continue home Lantus 120mg qHS -ISS for target BS of 80-140 -Glycemic management consult due to high level of insulin usage 3. HTN - well controlled -Continue Lisinopril 40mg po daily -Continue HCTZ larry 4. Hypothyroidism- stable -Continue Synthroid 5. HLP - stable -Continue Lipitor 80mg -Continue Fenofibrate 145mg po daily 6. Depression - stable -Continue Escitalopram 30mg po daily 7. F/E/N - Heplock, diuresis as above with Lasix 40mg IV, monitor electrolytes and replete as needed, AHA diet as tolerated 8. Ppx - Lovenox for DVT prophylaxis 9. Code - Full per discussion with patient 10. Dispo - admit to medical floor Resuscitation Status full VTE Prophylaxis Will order VTE Prophylaxis: Yes
[2017-12-31] MEDS ORDERED: GUAIFENESIN/DEXTROM SYRUP 100MG/10MG 5ML UDC PO PRN (03:00)
[2017-12-31] MEDS ORDERED: PHARMACY GLYCEMIC MGMT CONSULT PRN (03:22)
[2017-12-31] MEDS ORDERED: INSULIN GLARGINE SC SCH (03:30)
[2017-12-31] MEDS ORDERED: FUROSEMIDE INJ 40 MG in SYRINGE 0 ML IV ONE ×2 (04:00→17:45)
[2017-12-31] MEDS: INSULIN ASPART 100 UNITS/ML 3 ML PEN SC SCH ×6 (04:28→23:51)
[2017-12-31] MEDS: AMITRIPTYLINE HCL 10 MG TAB PO SCH ×2 (04:42→20:22)
[2017-12-31] MEDS: ENOXAPARIN 40 MG/0.4 ML SYR SQ SCH (04:43)
[2017-12-31] MEDS ORDERED: IV FLUIDS COMPLETED PRN (04:45)
[2017-12-31] MEDS: ATORVASTATIN 40 MG TAB PO SCH ×2 (04:46→20:23)
[2017-12-31] MEDS: BusPIRone 15 MG TAB PO SCH ×2 (07:55→20:22)
[2017-12-31] MEDS: ESCITALOPRAM OXALATE 20 MG TAB PO SCH (07:56)
[2017-12-31] MEDS: FENOFIBRATE 145 MG TAB PO SCH (07:57)
[2017-12-31] MEDS: ASPIRIN 81 MG ECTAB PO SCH (07:58)
--- NOTE | 2017-12-31 07:58 | DIAGNOSTIC IMAGING REPORT ---
CHEST CTA for PULMONARY ARTERIES CT DOSE: 890.45 mGy.cm HISTORY: Respiratory distress. Dyspnea. TECHNIQUE: Multiaxial CT images of the chest were performed following the intravenous administration of contrast to evaluate the pulmonary arteries. Maximal intensity projection images were also obtained. A dose lowering technique was utilized adhering to the principles of ALARA. COMPARISON STUDY: Chest 12/30/2017. FINDINGS: Normal caliber thoracic aorta with no evidence for dissection. Dense calcification within the left coronary artery. The heart is normal in size. No pleural or pericardial effusions. The visualized liver, spleen, left adrenal gland are unremarkable. There is a 1.4 cm indeterminate right adrenal gland nodule. There is a 1.9 cm left thyroid nodule. No significant mediastinal or hilar lymphadenopathy. Patchy airspace consolidation within the right middle lobe. There is also patchy groundglass opacity within the base of the left lower lobe which has a somewhat linear configuration. No pneumothorax. Suboptimal opacification of the pulmonary arteries. Questionable filling defect seen within a single right upper lobe segmental pulmonary artery on image 185. Otherwise, the remaining pulmonary arteries show no definite filling defects to suggest pulmonary embolus. IMPRESSION: 1. Questionable filling defect seen within a single right upper lobe segmental pulmonary artery. This could be artifact or possibly represent a pulmonary embolus. Recommend follow-up bilateral lower extremity venous Doppler examination to assess for a DVT. This finding was called/faxed to the emergency Department following dictation. 2. Patchy areas of consolidation within the right middle lobe. This is concerning for a pneumonia. Atelectasis could also have a similar appearance. 3. Small patchy/linear density within the left lung base could also represent a pneumonia or atelectasis. 4. A 1.9 cm left thyroid nodule. Follow-up nonemergent thyroid ultrasound is recommended for further evaluation. This finding was called/faxed to the emergency Department following dictation. Electronically signed by: Kj Zimmer M.D. 12/31/2017 7:57 AM Dictated Date/Time: 12/31/2017 7:44 AM
[2017-12-31] MEDS: CHOLECALCIFEROL 1000 INTER.UNIT TAB PO SCH (07:59)
[2017-12-31] MEDS: METOPROLOL SUCC 50MG EXT REL TAB PO SCH (07:59)
[2017-12-31] MEDS: LEVOTHYROXINE 50 MCG TAB PO SCH (08:00)
[2017-12-31] MEDS ORDERED: HYDROCHLOROTHIAZIDE 25 MG TAB PO SCH (08:00)
[2017-12-31] MEDS: MAGNESIUM OXIDE 400 MG TAB PO SCH (08:00)
[2017-12-31] MEDS: LISINOPRIL 40 MG TAB PO SCH (08:02)
[2017-12-31 11:06] LABS: BASO % 0.5 %; BASO ABS # 0.03 K/uL (0-0.2); EOS ABS # 0.25 K/uL (0-0.5); HEMATOCRIT 37.7 % (37-47); HEMOGLOBIN 11.7 g/dL (12.0-16.0); IG# 0.05 K/uL (0.00-0.02); LYMPH % 29.5 %; LYMPH ABS # 1.86 K/uL (1.2-3.4); MEAN CELL VOLUME 87.1 fL (80-100); MEAN PLATELET VOLUME 10.3 fL (7.4-10.4); MONO % 6.3 %; NEUT % 58.9 %; NEUT ABS # 3.72 K/uL (1.4-6.5); PLATELET COUNT 199 K/uL (130-400); RED CELL DISTRIBUTION WIDTH CV 14.6 % (11.5-14.5); RED CELL DISTRIBUTION WIDTH SD 46.2 fL (36.4-46.3); WHITE BLOOD COUNT 6.31 K/uL (4.8-10.8)
[2017-12-31 11:32] LABS: CREATININE 1.53 mg/dl (0.60-1.20); POTASSIUM 3.9 mmol/L (3.5-5.1); TOTAL PROTEIN 6.8 gm/dl (6.4-8.2)
--- NOTE | 2017-12-31 13:28 | DIAGNOSTIC IMAGING REPORT ---
BILATERAL LOWER EXTREMITY VENOUS DOPPLER HISTORY: possible right upper lobe pulmonary embolus on CT-r/o DVT COMPARISON STUDY: None. FINDINGS: Suboptimal study due to the patient's body habitus. However, there is normal compressibility, flow, and augmentation within the bilateral lower extremity deep venous systems. IMPRESSION: No DVT within the right or left lower extremity. Electronically signed by: Kj Zimmer M.D. 12/31/2017 1:27 PM Dictated Date/Time: 12/31/2017 1:26 PM
--- NOTE | 2017-12-31 14:44 | Pharmacy Progress Note ---
Glycemic Control Intl Consult Date of Service Dec 31, 2017. Scope Glycemic Pharmacist consulted by Dr Childress on 12/31/17 for glycemic control and to write orders per [facility] inpatient glycemic control protocol Objective Weight (Kilograms): 164.000 Accuchecks BSG (last 24hrs): Test 12/30/17 21:35 12/31/17 07:46 12/31/17 10:49 12/31/17 11:36 Random Glucose 193 mg/dl (70-99) 58 mg/dl (70-99) Bedside Glucose 111 mg/dl (70-90) 68 mg/dl (70-90) Test 12/31/17 12:24 Bedside Glucose 78 mg/dl (70-90) Laboratory Data (last 24hrs) Test 12/30/17 21:35 12/31/17 10:49 Anion Gap 7.0 mmol/L 4.0 mmol/L BUN/Creatinine Ratio 22.3 19.7 Blood Urea Nitrogen 32 mg/dl 30 mg/dl Creatinine 1.43 mg/dl 1.53 mg/dl Potassium Level 4.0 mmol/L 3.9 mmol/L Sodium Level 143 mmol/L 143 mmol/L White Blood Count 6.72 K/uL 6.31 K/uL Red Blood Count 4.20 M/uL 4.33 M/uL Hemoglobin 11.5 g/dL 11.7 g/dL Hematocrit 36.2 % 37.7 % Mean Corpuscular Volume 86.2 fL 87.1 fL Mean Corpuscular Hemoglobin 27.4 pg 27.0 pg Mean Corpuscular Hemoglobin Concent 31.8 g/dl 31.0 g/dl Platelet Count 200 K/uL 199 K/uL Mean Platelet Volume 10.5 fL 10.3 fL Neutrophils (%) (Auto) 59.7 % 58.9 % Lymphocytes (%) (Auto) 30.2 % 29.5 % Monocytes (%) (Auto) 6.5 % 6.3 % Eosinophils (%) (Auto) 2.8 % 4.0 % Basophils (%) (Auto) 0.4 % 0.5 % Neutrophils # (Auto) 4.00 K/uL 3.72 K/uL Lymphocytes # (Auto) 2.03 K/uL 1.86 K/uL Monocytes # (Auto) 0.44 K/uL 0.40 K/uL Eosinophils # (Auto) 0.19 K/uL 0.25 K/uL Basophils # (Auto) 0.03 K/uL 0.03 K/uL Recent Pertinent Medications Outpatient Anti-diabetic Regimen: * Basaglar 120 units HS, Humalog SSI, Trulicity * A1c = 7.3 % 12/02/17 Assessment & Plan ASSESSMENT: * Ms. Arellano is a 57yo type II diabetic F known to the pharmacy glycemic service from one previous admission. She p/w hypoxia and volume overload. Most recent A1C 7.3% indicates poor glycemic control based on age/co-morbidities. She received her home dose of lantus 120units this morning around 0430. BSGs were 245 at that juncture. She also received an appropriate dose of correctional novolog at that time. She experienced a low, 67mg/dL, likely 2/2 to insulin stacking and altered PO intake as compared to her appetite at home. PLAN FOR INPATIENT GLYCEMIC CONTROL: * Holding outpatient Trulicity * Basal insulin with LANTUS scale set for HS in the setting of low this afternoon: BSG <120 give 60 units of lantus, BSG 120 -180 give 80units of lantus , BSG>180 give 100units of lantus * Correctional Insulin with NOVOLOG ACHS - loosened up * Goal Range: Low 110 mg/dL - High 14 mg/dL * Correction Factor: 10 mg/dL/unit * Nutritional / Prandial insulin per carb ratio of 1 unit per 3 grams CHO consumed * Will add 00,04 checks to help ensure euglycemia, trend nocturnal insulin requirements * Please note that the plan above was derived based on current level of insulin resistance and hospital stress. These recommendations are appropriate for inpatient admission only. Plan of care upon discharge will need to be reassessed to avoid potential outpatient hypo/hyperglycemia. Thank you.
[2017-12-31] MEDS: INSULIN GLARGINE SC SCH (20:21)
--- NOTE | 2017-12-31 22:07 | Progress Note ---
Progress Note Date of Service Dec 31, 2017. Progress Note BNP is normal. However, I believe this is falsely negative given her elevated BMI Will treat wtih lasix IV. Will monitor her creatinine. Due to her symptoms of SOB and lower extremity edema I beleive she does have some diastolic congestive heart failure with a component of her renal failure. Will continue to follow closely.
[2018-01-01] MEDS: INSULIN ASPART 100 UNITS/ML 3 ML PEN SC SCH ×5 (04:41→20:42)
[2018-01-01] MEDS: ENOXAPARIN 40 MG/0.4 ML SYR SQ SCH (06:11)
[2018-01-01] MEDS: LEVOTHYROXINE 50 MCG TAB PO SCH (06:11)
[2018-01-01 06:46] LABS: BASO % 0.5 %; BASO ABS # 0.03 K/uL (0-0.2); EOS % 3.9 %; EOS ABS # 0.24 K/uL (0-0.5); HEMATOCRIT 38.1 % (37-47); HEMOGLOBIN 11.5 g/dL (12.0-16.0); IG# 0.04 K/uL (0.00-0.02); LYMPH % 33.5 %; LYMPH ABS # 2.07 K/uL (1.2-3.4); MEAN CELL VOLUME 87.2 fL (80-100); MEAN CORPUSCULAR HEMOGLOBIN 26.3 pg (25-34); MEAN CORPUSCULAR HGB CONC 30.2 g/dl (32-36); MEAN PLATELET VOLUME 10.3 fL (7.4-10.4); MONO % 7.1 %; MONO ABS # 0.44 K/uL (0.11-0.59); NEUT % 54.4 %; NEUT ABS # 3.36 K/uL (1.4-6.5); PLATELET COUNT 189 K/uL (130-400); RED CELL DISTRIBUTION WIDTH CV 14.5 % (11.5-14.5); RED CELL DISTRIBUTION WIDTH SD 46.1 fL (36.4-46.3); WHITE BLOOD COUNT 6.18 K/uL (4.8-10.8)
[2018-01-01 07:01] VITALS: BP 126/74; PULSE 77; TEMP 36.8; O2SAT 93
[2018-01-01 07:28] LABS: CALCIUM 9.4 mg/dl (8.5-10.1); CREATININE 1.77 mg/dl (0.60-1.20); POTASSIUM 3.9 mmol/L (3.5-5.1)
[2018-01-01 08:20] VITALS: O2SAT 93
[2018-01-01] MEDS: FENOFIBRATE 145 MG TAB PO SCH (08:43)
[2018-01-01] MEDS: ASPIRIN 81 MG ECTAB PO SCH (08:43)
[2018-01-01] MEDS: BusPIRone 15 MG TAB PO SCH ×2 (08:43→20:39)
[2018-01-01] MEDS: MAGNESIUM OXIDE 400 MG TAB PO SCH (08:44)
[2018-01-01] MEDS: METOPROLOL SUCC 50MG EXT REL TAB PO SCH (08:44)
[2018-01-01] MEDS: LISINOPRIL 40 MG TAB PO SCH (08:44)
[2018-01-01] MEDS: CHOLECALCIFEROL 1000 INTER.UNIT TAB PO SCH (08:45)
[2018-01-01] MEDS: ESCITALOPRAM OXALATE 20 MG TAB PO SCH (08:45)
--- NOTE | 2018-01-01 10:19 | Pharmacy Progress Note ---
Pharmacy Glycemic Short Note 2 Date of Service Jan 01, 2018. OUTPATIENT ANTIDIABETIC REGIMEN: * Basaglar (insulin glargine) 120 units SQ HS * Humalog per SSI * Trulicity 1.5mg SQ weekly * A1c = 7.3% on 12/02/17 Item Value Date Time Bedside Glucose 111 mg/dl H 12/31/17 0746 Bedside Glucose 67 mg/dl *L 12/31/17 1136 Bedside Glucose 68 mg/dl *L 12/31/17 1136 Bedside Glucose 78 mg/dl 12/31/17 1224 Bedside Glucose 135 mg/dl H 12/31/17 1652 Bedside Glucose 121 mg/dl H 12/31/172006 Bedside Glucose 163 mg/dl H 12/31/17 2345 Bedside Glucose 144 mg/dl H 01/01/18 0441 Bedside Glucose 150 mg/dl H 01/01/18 0734 ASSESSMENT: * 57yo T2DM female with adequate outpatient control per recent A1c. Pt is maintained on large doses of SQ basal bolus insulin + GLP1 * May be insulin absorption issues with volume overload status * Pt with LOW BSG yesterday prior to lunch secondary to aggressive NovoLog boluses given x 2 for elevated BSG and CHO coverage. CF/CR loosened and BSGs have since then been well controlled. * Pt has received 286 units of insulin over the past 24hrs. This is slightly artificially inflated because she missed her 12/30/17 PM dose of insulin on admission, therefore it was given at 0400 on 12/31/17. Outpatient HS dose of insulin reduced slightly to not double dose patient for 12/31/17 * Estimating that patient will need ~ 180-200 units of insulin for adequate control PLAN FOR INPATIENT GLYCEMIC CONTROL: initiate SQ basal bolus insulin regimen based on estimated total daily dose of ~ 200 units/day * Hold outpatient diabetes medications (Trulicity) --> using bolus insulin with NovoLog instead * Basal insulin * Lantus 90-110 units SQ HS --> will give first dose a little early (with dinner this evening) since dose given last night was reduced * BSG below 120 mg/dl --> 90 units * BSG 120-180 mg/dl --> 100 units * BSG 181 mg/dl or above --> 110 units * Bolus insulin * NovoLog per scale ACHS or Q6hrs while NPO * Goal Range: Low 110 mg/dL - High 140 mg/dL * Correction Factor: 10 mg/dL/unit * Nutritional / Prandial insulin per carb ratio of 1 unit per 3 grams CHO consumed PLAN FOR DISCHARGE: * A1c near goal range for patient based on age/co-morbidities * No changes needed to outpatient regimen.
--- NOTE | 2018-01-01 14:05 | Cardiology Consultation ---
Cardiology Consultation Date of Consultation: Jan 01, 2018. Requesting Physician: Kenisha Reason for Consultation: edema Pt evaluation today including: conversation w/ patient, physical exam, chart review, lab review, review of studies, review of inpatient medication list History of Present Illness The patient is a 57-year-old woman without a known history of cardiac disease who has had progressive dyspnea a cough and weight gain over the preceding several weeks. Patient states that her symptoms started approximately 3 weeks ago and involved a nonproductive cough. This persisted and she sought medical attention. She had some symptoms of dyspnea as well and was prescribed antibiotics for presumed bronchitis. The patient reported worsening dyspnea even with minimal activity and actually presented to urgent care for an unrelated complaint. She was noted at that time to be hypoxic and sent to [facility] for additional evaluation. Patient states that at no time during this presentation did she have overt fevers or chills. Her cough which initially was nonproductive when she became looser with inhaled beta agonists. She did not have any orthopnea, but generally sleeps in an upright position due to back discomfort. She has not been aware of any palpitations or racing heartbeats. She has not had symptoms of chest discomfort. She has also been noted to have progressive weight gain and lower extremity edema. Generally speaking she is a sedentary individual who is limited by hip and back discomfort. She is able to ambulate short distances and does have an element of dyspnea. This has been relatively stable until recently. As noted above she sleeps in a chair in an upright position due to orthopedic complaints. She does have a diagnosis of sleep apnea but does not use a CPAP machine. Currently the patient is feeling better. She feels that her lower extremity edema is improved. She has no dyspnea at rest but with activity she becomes mildly dyspneic. Sitting up in a chair she has no pain. Past Medical/Surgical History Morbid obesity Uveitis Chronic renal insufficiency stage III Diabetes mellitus with associated neuropathy, retinopathy and nephropathy Fatty liver, cirrhosis Hyperlipidemia Obstructive sleep apnea Nontoxic multinodular goiter Obsessive-compulsive disorder Past surgical history: Caesarean section Cholecystectomy Jaw surgery Shoulder replacement on the left Tooth extraction Family History Cancer Diabetes mellitus FH: stroke Heart disease Hypertension Kidney disease Kidney stones Seizures Mother with premature coronary disease and congestive heart failure Father of cancer Siblings without premature coronary disease Social History Smoking Status: Unknown if Ever Smoked History of Alcohol Use: Yes (wine, beer socially) 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 She has chronic low back and hip pain especially with standing or lying flat. All Other Systems: Reviewed and Negative Allergies Coded Allergies: Promethazine (Verified Allergy, Unknown, BROKEN CAPILLARIES FACE, 12/30/17) Medications Current Inpatient Medications Medications (Trade) Dose Ordered Sig/Greyson Route Start Time Stop Time Status Last Admin Dose Admin Ioversol (Optiray 320) 100 ml UD PRN IV 12/30/17 21:15 01/03/18 21:14 Enoxaparin Sodium (Lovenox Inj) 40 mg Q24H SQ 12/31/17 06:00 01/30/18 05:59 01/01/18 06:11 40 MG Acetaminophen (Tylenol Tab) 650 mg Q4H PRN PO 12/31/17 02:30 01/30/18 02:29 Ondansetron HCl (Zofran Inj) 4 mg Q6H PRN IV 12/31/17 02:30 01/30/18 02:29 Insulin Aspart (novoLOG ASPART) SLIDING SCALE If C... ACHS SC 12/31/17 03:30 01/30/18 03:29 01/01/18 12:44 21 UNITS Glucose (Glucose 40% Gel) 15-30 GRAMS 15 GRAMS... UD PRN PO 12/31/17 02:30 01/30/18 02:29 Glucose (Glucose Chew Tab) 4-8 Tablets 4 Tabl... UD PRN PO 12/31/17 02:30 01/30/18 02:29 Dextrose (Dextrose 50% 50ML Syringe) 25-50ML 25ML FOR ... UD PRN IV 12/31/17 02:30 01/30/18 02:29 Glucagon (Glucagon Inj) 1 mg UD PRN SQ 12/31/17 02:30 01/30/18 02:29 Carbohydrates (Carbohydrates For Hypoglycemia) 15-30 GRAMS 15 grams if BSG 54-69... UD PRN PO 12/31/17 02:30 01/30/18 02:29 12/31/17 11:30 15 GM Miscellaneous Information (Consult Glycemic Management Pharmacy) 1 ea UD PRN N/A 12/31/17 03:22 01/30/18 03:21 Albuterol (Ventolin Hfa Inhaler) 2 puffs Q4 PRN INH 12/31/17 02:30 01/30/18 02:29 Amitriptyline HCl (Elavil Tab) 20 mg HS PO 12/31/17 21:00 01/30/18 20:59 12/31/17 20:22 20 MG Aspirin (Ecotrin Tab) 81 mg QAM PO 12/31/17 08:00 01/30/18 08:59 01/01/18 08:43 81 MG Atorvastatin Calcium (Lipitor Tab) 80 mg HS PO 12/31/17 21:00 01/30/18 20:59 12/31/17 20:23 80 MG Escitalopram Oxalate (Lexapro Tab) 30 mg QAM PO 12/31/17 08:00 01/30/18 08:59 01/01/18 08:45 30 MG Fenofibrate (Tricor Tab) 145 mg QAM PO 12/31/17 08:00 01/30/18 08:59 01/01/18 08:43 145 MG Levothyroxine Sodium (Synthroid Tab) 50 mcg DAILYBB PO 12/31/17 06:30 01/30/18 06:29 01/01/18 06:11 50 MCG Lisinopril (Zestril Tab) 40 mg QAM PO 12/31/17 08:00 01/30/18 08:59 01/01/18 08:44 40 MG Lorazepam (Ativan Tab) 0.5 mg QID PRN PO 12/31/17 02:30 01/30/18 02:29 Magnesium Oxide (Mag-Ox Tab) 400 mg QAM PO 12/31/17 08:00 01/30/18 08:59 01/01/18 08:44 400 MG Buspirone HCl (BusPAR TAB) 30 mg BID PO 12/31/17 08:00 01/30/18 08:59 01/01/18 08:43 30 MG Cholecalciferol (Vitamin D Tab) 5,000 inter.unit QAM PO 12/31/17 08:00 01/30/18 08:59 01/01/18 08:45 5,000 INTER.UNIT Metoprolol Succinate (Toprol Xl Tab) 100 mg QAM PO 12/31/17 08:00 01/30/18 08:59 7/18/18 08:44 100 MG Guaifenesin/ Dextromethorphan (Robitussin-Dm Syrup) 5 ml Q6H PRN PO 12/31/17 03:00 01/30/18 02:59 Miscellaneous (Iv Fluids Completed) 1 ea PRN PRN N/A 12/31/17 04:45 12/31/18 04:44 Insulin Glargine (Lantus Vial) PLEASE SEE PROTOCOL TE... HS SC 12/31/17 21:00 01/30/18 03:29 12/31/17 20:21 80 UNITS Physical Exam Vital Signs Past 12 Hours Date Time Temp Pulse Resp B/P (MAP) Pulse Ox O2 Delivery O2 Flow Rate FiO2 01/01/18 08:20 93 Room Air 01/01/18 08:00 Room Air 01/01/18 07:01 36.8 77 17 126/74 (91) 93 Room Air She is alert and oriented x3. Mood affect appear normal. She answered all questions appropriately. Morbidly obese HEENT: Sclerae are anicteric. Pupils are equal and reactive to light and accommodation. Extraocular movements were intact. Neuro: Cranial nerves intact Neck: Examination of the submandibular region did not reveal any significant lymphadenopathy. Carotids are palpable bilaterally and free of bruits on auscultation. JVD cannot be assessed due to redundancy of the neck tissues. The thyroid was not enlarged. Lungs: Lungs are clear to auscultation bilaterally. There are no rales wheezes or rhonchi. She has normal respiratory effort without use of accessory muscles. There is normal pulmonary excursion. Cardiac: The rhythm was regular. S1 and S2 were normal. Crescendo systolic murmur heard best at the right 2nd intercostal space. The PMI was not markedly displaced on palpation. Abdomen: The abdomen was soft and nontender. Extremities: Patient has bilateral radial pulses that are equal in intensity. There is no evidence cyanosis or clubbing. Moderate bilateral peripheral edema to the mid calf. Skin: There are no rashes noted on examination today. Data Laboratory Results: Last 24 Hours Test 12/31/17 16:52 12/31/17 20:07 12/31/17 23:45 01/01/18 04:41 Bedside Glucose 135 mg/dl 121 mg/dl 163 mg/dl 144 mg/dl Test 01/01/18 06:11 01/01/18 07:34 01/01/18 11:43 White Blood Count 6.18 K/uL Red Blood Count 4.37 M/uL Hemoglobin 11.5 g/dL Hematocrit 38.1 % Mean Corpuscular Volume 87.2 fL Mean Corpuscular Hemoglobin 26.3 pg Mean Corpuscular Hemoglobin Concent 30.2 g/dl Platelet Count 189 K/uL Mean Platelet Volume 10.3 fL Neutrophils (%) (Auto) 54.4 % Lymphocytes (%) (Auto) 33.5 % Monocytes (%) (Auto) 7.1 % Eosinophils (%) (Auto) 3.9 % Basophils (%) (Auto) 0.5 % Neutrophils # (Auto) 3.36 K/uL Lymphocytes # (Auto) 2.07 K/uL Monocytes # (Auto) 0.44 K/uL Eosinophils # (Auto) 0.24 K/uL Basophils # (Auto) 0.03 K/uL RDW Standard Deviation 46.1 fL RDW Coefficient of Variation 14.5 % Immature Granulocyte % (Auto) 0.6 % Immature Granulocyte # (Auto) 0.04 K/uL Sodium Level 142 mmol/L Potassium Level 3.9 mmol/L Chloride Level 104 mmol/L Carbon Dioxide Level 33 mmol/L Anion Gap 5.0 mmol/L Blood Urea Nitrogen 34 mg/dl Creatinine 1.77 mg/dl Est Creatinine Clear Calc Drug Dose 56.1 ml/min Estimated GFR () 35.8 Estimated GFR (Non- 30.9 BUN/Creatinine Ratio 19.4 Random Glucose 146 mg/dl Calcium Level 9.4 mg/dl Bedside Glucose 150 mg/dl 191 mg/dl Imaging: Chest x-ray did not reveal any acute cardiopulmonary process. CT scan of the chest suggested a right middle lobe infiltrate. No pulmonary edema or effusions. EKG: Normal sinus rhythm without evidence of old infarct A dobutamine echocardiogram performed 08/22/2017 revealed preserved LV systolic function, stage I diastolic dysfunction, aortic valve sclerosis and no evidence of ischemia. Assessment & Plan 1. Dyspnea: Patient clearly has an element of volume overload, but there is no objective signs of pulmonary vascular congestion or edema. Her x-rays and CT scan did not suggest pulmonary vascular congestion. Her lung examination is normal. Her BNP is also normal. While the BNP can be falsely low in patients with market obesity, her is a is decidedly normal. Her cardiac function is essentially normal for age. I suppose her dyspnea and hypoxia could be related to an infiltrative process as suggested on her CT scan or Pickwickian syndrome with obesity hypoventilation syndrome. 2. Edema: While there is a possibility that her lower extremity edema is related to diastolic dysfunction, the absence of significant pulmonary edema would speak against this as an etiology. Cor pulmonale would be common in a patient with her body habitus and comorbidities such as sleep apnea and obesity , but her echocardiogram suggested preserved RV function. This may be more related to liver and kidney disease than cardiac disease. He would seem that an element of diuresis is indicated however given her edema and weight gain.
[2018-01-01 14:51] VITALS: BP 115/70; PULSE 74; TEMP 37.4; O2SAT 90
[2018-01-01 15:08] VITALS: Ht 172.7 cm; Wt 164.0 kg
[2018-01-01 15:37] VITALS: O2SAT 90
[2018-01-01] MEDS: INSULIN GLARGINE SC SCH (17:52)
[2018-01-01] MEDS: ATORVASTATIN 40 MG TAB PO SCH (20:39)
[2018-01-01] MEDS: AMITRIPTYLINE HCL 10 MG TAB PO SCH (20:39)
--- NOTE | 2018-01-01 22:47 | Progress Note ---
Subjective Date of Service: Jan 01, 2018. Subjective Pt evaluation today including: conversation w/ patient, physical exam 57 yo female reports some improvement today. Stil is having cough and some orthopnea. Patient though reports that her breathing is better but does \have some dyspnea on exertion. Problem List Medical Problems: (1) Hypoxia Status: Acute (2) SOB (shortness of breath) Status: Acute Review of Systems Constitutional: No fever Eyes: No worsening of vision ENT: No hearing loss Respiratory: + cough Cardiac: No chest pain Breast: No breast lump Abdomen: No pain Female : No dysuria Neurologic: No memory loss Psychiatric: No depression symptoms Heme: No abnormal bleeding/bruising Endo: + fatigue Skin: No itch All Other Systems: Reviewed and Negative Objective Vital Signs Date Time Temp Pulse Resp B/P (MAP) Pulse Ox O2 Delivery O2 Flow Rate FiO2 01/01/18 15:37 90 Room Air 01/01/18 14:51 37.4 74 16 115/70 (85) 90 Room Air 01/01/18 08:20 93 Room Air 01/01/18 08:00 Room Air 01/01/18 07:01 36.8 77 17 126/74 (91) 93 Room Air 01/01/18 00:25 Room Air 12/31/17 23:12 37.0 69 18 132/71 (91) 92 Room Air Physical Exam General Appearance: WD/WN, no apparent distress Eyes: normal inspection ENT: normal ENT inspection Neck: supple, no adenopathy Respiratory/Chest: chest non-tender, lungs clear (except for basilar crackles) , normal breath sounds Cardiovascular: regular rate, rhythm Abdomen: normal bowel sounds Extremities: normal range of motion Neurologic/Psychiatric: alert, oriented x 3 Skin: normal color Lymphatic: no adenopathy Laboratory Results Last 24 Hours Test 12/31/17 23:45 01/01/18 04:41 01/01/18 06:11 01/01/18 07:34 Bedside Glucose 163 mg/dl 144 mg/dl 150 mg/dl White Blood Count 6.18 K/uL Red Blood Count 4.37 M/uL Hemoglobin 11.5 g/dL Hematocrit 38.1 % Mean Corpuscular Volume 87.2 fL Mean Corpuscular Hemoglobin 26.3 pg Mean Corpuscular Hemoglobin Concent 30.2 g/dl Platelet Count 189 K/uL Mean Platelet Volume 10.3 fL Neutrophils (%) (Auto) 54.4 % Lymphocytes (%) (Auto) 33.5 % Monocytes (%) (Auto) 7.1 % Eosinophils (%) (Auto) 3.9 % Basophils (%) (Auto) 0.5 % Neutrophils # (Auto) 3.36 K/uL Lymphocytes # (Auto) 2.07 K/uL Monocytes # (Auto) 0.44 K/uL Eosinophils # (Auto) 0.24 K/uL Basophils # (Auto) 0.03 K/uL RDW Standard Deviation 46.1 fL RDW Coefficient of Variation 14.5 % Immature Granulocyte % (Auto) 0.6 % Immature Granulocyte # (Auto) 0.04 K/uL Sodium Level 142 mmol/L Potassium Level 3.9 mmol/L Chloride Level 104 mmol/L Carbon Dioxide Level 33 mmol/L Anion Gap 5.0 mmol/L Blood Urea Nitrogen 34 mg/dl Creatinine 1.77 mg/dl Est Creatinine Clear Calc Drug Dose 56.1 ml/min Estimated GFR () 35.8 Estimated GFR (Non- 30.9 BUN/Creatinine Ratio 19.4 Random Glucose 146 mg/dl Calcium Level 9.4 mg/dl Test 01/01/18 11:43 01/01/18 17:00 01/01/18 20:04 Bedside Glucose 191 mg/dl 130 mg/dl 174 mg/dl Assessment and Plan 57yo female with 3 weeks of nonproductive cough, progressive SALAZAR/SOB as well as LE edema and weight gain. Patient found to be hypoxic in outpatient clinic, confirmed in ER with SaO2 of 87% on room air while at rest. Hypoxia - improved with supplemental O2. No respiratory distress. Ddx to include volume overload secondary to decreased liver/kidney function, less likely cardiac etiology as patient with recent normal dobutamine stress echo. CXR/CT with no evidence of infection, no PE, no underlying pulmonary disease. -Continue supplemental O2 for goal SaO2 >92% -Daily weights, strict I/O's -Lasix 40mg IV received on day of admission. Ordered a second dose. This appears to have improved her symptoms. I agree that this is likely fluid overload despite negative imaging. I question the BNP being normal as her BMI is 55. -Albuterol PRN -Robitussin PRN CKD stage IIIB GFR was 40 on admission. creatinine trending up. Will likely switch hctz to furosemide. will monitor. Cough Non productive. May be related wth her lisnopril. If switching does not improve. May benefit from ENT as outpatient to assess other causes of cause. Diabetes - blood sugar 193 presently. -Continue home Lantus 120mg qHS -ISS for target BS of 80-140 -Glycemic management consult due to high level of insulin usage HTN - well controlled -Continue Lisinopril 40mg po daily -Continue HCTZ larry Hypothyroidism- stable -Continue Synthroid HLP - stable -Continue Lipitor 80mg -Continue Fenofibrate 145mg po daily Depression - stable -Continue Escitalopram 30mg po daily F/E/N - Heplock, diuresis as above with Lasix 40mg IV, monitor electrolytes and replete as needed, AHA diet as tolerated Ppx - Lovenox for DVT prophylaxis Code - Full per discussion with patient Dispo - admit to medical floor
[2018-01-01 23:47] VITALS: BP 101/61; PULSE 76; TEMP 36.9; O2SAT 92
[2018-01-02] MEDS: LEVOTHYROXINE 50 MCG TAB PO SCH (06:37)
[2018-01-02] MEDS: ENOXAPARIN 40 MG/0.4 ML SYR SQ SCH (06:37)
[2018-01-02 06:55] LABS: CALCIUM 9.4 mg/dl (8.5-10.1); CREATININE 1.68 mg/dl (0.60-1.20)
[2018-01-02 08:09] VITALS: BP 132/58; PULSE 70; TEMP 37; O2SAT 91
[2018-01-02] MEDS: ESCITALOPRAM OXALATE 20 MG TAB PO SCH (08:11)
[2018-01-02] MEDS: CHOLECALCIFEROL 1000 INTER.UNIT TAB PO SCH (08:11)
[2018-01-02] MEDS: METOPROLOL SUCC 50MG EXT REL TAB PO SCH (08:12)
[2018-01-02] MEDS: BusPIRone 15 MG TAB PO SCH (08:12)
[2018-01-02] MEDS: ASPIRIN 81 MG ECTAB PO SCH (08:12)
[2018-01-02] MEDS: MAGNESIUM OXIDE 400 MG TAB PO SCH (08:13)
[2018-01-02] MEDS: FENOFIBRATE 145 MG TAB PO SCH (08:13)
[2018-01-02] MEDS: LISINOPRIL 40 MG TAB PO SCH (08:13)
[2018-01-02] MEDS: INSULIN ASPART 100 UNITS/ML 3 ML PEN SC SCH (08:15)
[2018-01-02] MEDS ORDERED: LOSA50TA6 PO (10:38)
--- NOTE | 2018-01-02 10:42 | Discharge Instructions ---
Discharge Instructions Date of Service Jan 02, 2018. Admission Reason for Admission: Hypoxia Discharge Discharge Diagnosis / Problem: Fluid overload from CKD IIIB Discharge Goals Goal(s): Decrease discomfort, Improve function Activity Recommendations Activity Limitations: resume your previous activity . Instructions / Follow-Up Instructions / Follow-Up Switched HCTZ to Furosemide. Switch lisinopril to losartan. Will take losartan at bedtime. Recommend fluid restriction of 1800 ml You lost about 8 liters of fluid during hospital stay. This likely helped with your symptoms. will check bmp in 1 week Will fu with nephrology and pcp in 1-2 weeks Current Hospital Diet Patient's current hospital diet: AHA Diet (Heart Healthy), Diabetes Type 1 Diet Discharge Diet Recommended Diet: AHA Diet (Heart Healthy) Pending Studies Studies pending at discharge: no Laboratory Results Hemoglobin A1c Test 12/02/17 14:19 Range/Units Estimated Average Glucose 163 mg/dl Hemoglobin A1c 7.3 H 4.5-5.6 % Lipid Panel Test 12/02/17 14:19 Range/Units Triglycerides Level 228 H 0-150 mg/dl Cholesterol Level 169 0-200 mg/dl HDL Cholesterol 43 mg/dl Cholesterol/HDL Ratio 3.9 LDL Cholesterol, Calculated 80 mg/dl Medical Emergencies . Who to Call and When: Medical Emergencies: If at any time you feel your situation is an emergency, please call 911 immediately. . Non-Emergent Contact Non-Emergency issues call your: Primary Care Provider Call Non-Emergent contact if: you have any medication questions . . "Provider Documentation" section prepared by Tushar Collier. .
[2018-01-02] MEDS ORDERED: LSX20 PO (10:52)
[2018-01-02] MEDS ORDERED: POTA10CA28 PO (10:53)
[2018-01-02 11:01] VITALS: BP 132/58; PULSE 70; TEMP 37; O2SAT 91
--- NOTE | 2018-01-05 16:00 | Discharge Summary ---
Discharge Summary Date of Service Jan 02, 2018. Discharge Summary Admission Date: Dec 31, 2017 at 02:48 Discharge Date: Jan 02, 2018 Discharge Disposition: Home Principal Diagnosis: Dyspnea on exertion likley multifactorial to CKD, fatty liver, poss HF Consultations: Cardiology Medication Reconciliation New Medications: Furosemide (Furosemide) 20 Mg Tab 1 TAB PO DAILY for 30 Days, #30 TAB Losartan Potassium (Cozaar) 50 Mg Tab 1 TAB PO DAILY for 30 Days, #30 TAB 5 Refills Potassium Chloride (Micro-K Ext Rel) 10 Meq Capcr 10 MEQ PO DAILY for 30 Days, #30 CAP Continued Medications: Albuterol Hfa (Ventolin Hfa) 200 Puffs/88984 Mcg Aers 2 PUFFS INH Q4-6HRS PRN for SOB/Wheezing Amitriptyline HCl (Amitriptyline HCl) 10 Mg Tab 20 MG PO HS Aspirin (Aspirin Ec) 81 Mg Tab 81 MG PO QAM Atorvastatin (Lipitor) 80 Mg Tab 80 MG PO HS Buspirone Hcl (Buspirone Hcl) 30 Mg Tab 30 MG PO BID Cholecalciferol (Vitamin D3) 5,000 Unit Cap 5000 INTER.UNIT PO QAM Dulaglutide (Trulicity) 1.5 Mg/0.5 Ml Inj 1.5 MG SC WK ADMINISTER EVERY SATURDAY Escitalopram Oxalate (Escitalopram Oxalate) 20 Mg Tab 30 MG PO QAM Fenofibrate (Fenofibrate) 145 Mg Tab 145 MG PO QAM Insulin Glargine (Basaglar Kwikpen) 100 Unit/Ml Inj 120 UNITS SC HS Insulin Lispro (Human) (Humalog Kwikpen) 200 Unit/Ml Inj 1 DOSE SC AC COVERAGE DIRECTED BY SLIDING SCALE Levothyroxine Sodium (Levothyroxine Sodium) 50 Mcg Tab 50 MCG PO QAM, TAB Lorazepam (Ativan) 0.5 Mg Tab 0.5 MG PO QID PRN for Anxiety, TAB Magnesium Oxide (Mag-Ox) 400 Mg Tab 400 MG PO QAM, TAB Metoprolol Succinate (Metoprolol Succinate ER) 100 Mg Tabcr 100 MG PO QAM Zinc Gluconate (Zinc) 100 Mg Tab 100 MG PO HS Discontinued Medications: Hydrochlorothiazide (Hydrochlorothiazide) 25 Mg Tab 25 MG PO QAM Lisinopril (Lisinopril) 40 Mg Tab 40 MG PO QAM Discharge Exam Review of Systems Constitutional: No fever Eyes: No worsening of vision ENT: No hearing loss Respiratory: + cough Cardiac: No chest pain Breast: No breast lump Abdomen: No pain Female : No dysuria Neurologic: No memory loss Psychiatric: No depression symptoms Heme: No abnormal bleeding/bruising Endo: + fatigue Skin: No itch All Other Systems: Reviewed and Negative Physical Exam General Appearance: WD/WN, no apparent distress Eyes: normal inspection ENT: normal ENT inspection Neck: supple, no adenopathy Respiratory/Chest: chest non-tender, lungs clear (except for basilar crackles) , normal breath sounds Cardiovascular: regular rate, rhythm Abdomen: normal bowel sounds Extremities: normal range of motion Neurologic/Psychiatric: alert, oriented x 3 Skin: normal color Lymphatic: no adenopathy Hospital Course 57yo female with 3 weeks of nonproductive cough, progressive SALAZAR/SOB as well as LE edema and weight gain. Patient found to be hypoxic in outpatient clinic, confirmed in ER with SaO2 of 87% on room air while at rest. Hypoxia - improved with supplemental O2. No respiratory distress. Ddx to include volume overload secondary to decreased liver/kidney function, less likely cardiac etiology as patient with recent normal dobutamine stress echo. CXR/CT with no evidence of infection, no PE, no underlying pulmonary disease. -Patient initially was on supplemental oxygen. -Daily weights, strict I/O's -Lasix 40mg IV received on day of admission. Ordered a second dose. This appears to have improved her symptoms. I agree that this is likely fluid overload despite negative imaging. I question the BNP being normal as her BMI is 55. On day of discharge, patient's shortness of breath improved significantly. However, she continues to have a cough which is non productive. Patient was negative 8 liters. Recommend fluid restriction 1800 ml per day. will need to recheck her BMP as an outpatient. Her shortnees of breath may be multifactorial related to fatty liver, CKD and possibly diastolic cardiac dysfunction. [facility] cardiology believes that her heart is likely not playing a significant role to this problem CKD stage IIIB GFR was 40 on admission. creatinine trending up. Will likely switch hctz to furosemide as an outpatient.. will monitor. Cough Non productive. May be related wth her lisnopril. If switching does not improve. May benefit from ENT as outpatient to assess other causes of cause. Will switch her saul inhibotr to an arb and monitor her cough as an outpatient. Diabetes - blood sugar 193 presently. -Continue home Lantus 120mg qHS -ISS for target BS of 80-140 -Glycemic management consult due to high level of insulin usage HTN - well controlled -Continue Lisinopril 40mg po daily -switch to furosemide Hypothyroidism- stable -Continue Synthroid HLP - stable -Continue Lipitor 80mg -Continue Fenofibrate 145mg po daily Depression - stable -Continue Escitalopram 30mg po daily Ppx - Lovenox for DVT prophylaxis Code - Full per discussion with patient Total Time Spent: Greater than 30 minutes This includes examination of the patient, discharge planning, medication reconciliation, and communication with other providers. Discharge Instructions Please refer to the electronic Patient Visit Report (Discharge Instructions) for additional information. Follow-Up Switched HCTZ to Furosemide. Switch lisinopril to losartan. Will take losartan at bedtime. Recommend fluid restriction of 1800 ml You lost about 8 liters of fluid during hospital stay. This likely helped with your symptoms. will check bmp in 1 week Will fu with nephrology and pcp in 1-2 weeks Additional Copies To RV. Howell MD
--- NOTE | 2018-01-17 07:55 | EDITING REQUIRED CODING QUERY ---
CODING QUERY To promote full compliance with coding requirements relating to patient care, provider participation is requested in all cases of certified medical records coder uncertainty. Please assist us with the question(s) below: Coding Question(s): There is documentation of Possible Diastolic Congestive Heart Failure. Please clarify below. ( ) Possible Acute Diastolic CHF ( ) Possible Acute on Chronic Diastolic CHF (x ) Possible Chronic Diastolic CHF Physician's Response(s): Thank you Julisa Pineda Principal Diagnosis: "_that condition established after study, to be chiefly responsible for occasioning the admission of the patient to the hospital for care." Co-Existing Principal Diagnosis: "_when two or more diagnoses equally meet the criteria for principal diagnosis as determined by the circumstances of admission, diagnostic work up, and/or therapy provided, and the Alphabetic Index, Tabular List, or another coding guideline does not provide sequencing direction, any one of the diagnoses may be sequenced first." "When the physician has documented what appears to be a current diagnosis in the body of the record, but has not included the diagnosis in the final diagnostic statement, the physician should be asked whether the diagnosis should be added." (Source Coding [facility] 2 QTR90. p3-4)
== END 2018-01-02 11:58 | disposition home or self-care (01) | DRG 699 ==
LOC: C.EDB 20:45 → C.4E 12-31 02:48 → ENRESERV 12-31 03:08
PROVIDERS: ADMIT Internal Medicine; ATTEND Family Medicine
DX: E11.22 Type 2 diabetes mellitus with diabetic chronic kidney disease (principal); I13.0 Hypertensive heart and chronic kidney disease with heart failure and stage 1 through stage 4 chronic kidney disease, or unspecified chronic kidney disease; I50.32 Chronic diastolic (congestive) heart failure; Z68.43 Body mass index [BMI] 50.0-59.9, adult; K76.0 Fatty (change of) liver, not elsewhere classified; E87.79 Other fluid overload; R09.02 Hypoxemia; N18.3 Chronic kidney disease, stage 3 (moderate); R05 Cough; T46.4X5A Adverse effect of angiotensin-converting-enzyme inhibitors, initial encounter; K74.60 Unspecified cirrhosis of liver; E11.21 Type 2 diabetes mellitus with diabetic nephropathy; E11.40 Type 2 diabetes mellitus with diabetic neuropathy, unspecified; E11.319 Type 2 diabetes mellitus with unspecified diabetic retinopathy without macular edema; E78.5 Hyperlipidemia, unspecified; E03.9 Hypothyroidism, unspecified; F41.9 Anxiety disorder, unspecified; F32.9 Major depressive disorder, single episode, unspecified; E66.01 Morbid (severe) obesity due to excess calories; Z51.81 Encounter for therapeutic drug level monitoring; Z79.899 Other long term (current) drug therapy; Z79.4 Long term (current) use of insulin; Z79.82 Long term (current) use of aspirin; Z88.8 Allergy status to other drugs, medicaments and biological substances; Z83.3 Family history of diabetes mellitus; Z82.3 Family history of stroke; Z82.49 Family history of ischemic heart disease and other diseases of the circulatory system; Z84.1 Family history of disorders of kidney and ureter; Z84.89 Family history of other specified conditions

== ENCOUNTER → 2018-01-09 | Outpatient (CLI) | payer OTHER ==
[~2018-01-09] MED LIST changes: -AMIT25TA9 PO; +AMT10 PO; +CHOLCAP5 PO; +DULA0.5I SC; -DULA1INJ SC; +FENO145T24 PO; -FENO145T26 PO; -HUMALOG INSULIN INJ; -HYD50 PO; +INSU100I23 SC; +INSU1INJ31 SC; -INSU1INJ33 INJ; +LOSA50TA6 PO; +LSX20 PO; +LXP/20 PO; +MAGN400T6 PO; -METO50TA8 PO; +POTA10CA28 PO; -RXC5 PO; +TPRSR/100 PO; +VNTHFA/IN INH
[2018-01-09 16:03] LABS: BLOOD UREA NITROGEN 41 mg/dl (7-18); CALCIUM 9.5 mg/dl (8.5-10.1); CARBON DIOXIDE 30 mmol/L (21-32); CREATININE 1.49 mg/dl (0.60-1.20); GLUCOSE 192 mg/dl (70-99); POTASSIUM 3.7 mmol/L (3.5-5.1); SODIUM 143 mmol/L (136-145)
== END | disposition home or self-care (01) ==
LOC: C.LAB1850 12:48
PROVIDERS: ATTEND Internal Medicine Sports Medicine
DX: N18.3 Chronic kidney disease, stage 3 (moderate) (principal)

== ENCOUNTER → 2018-01-20 | Outpatient (CLI) | payer OTHER ==
--- NOTE | 2018-01-20 18:24 | DIAGNOSTIC IMAGING REPORT ---
R KNEE 3 VIEWS CLINICAL HISTORY: 57 years-old Female presenting with M25.561 Right knee pain twisting injury 2 weeks ago. TECHNIQUE: Frontal, sunrise, and lateral views of the right knee were obtained. COMPARISON: None. FINDINGS: Knee joint congruent. Joint space is essentially preserved. Osteophytosis noted in the lateral and patellofemoral compartments. No acute fracture or malalignment. No advanced degenerative change. No patellar subluxation. Large knee joint effusion suspected. Prominent enthesophyte at the insertion of the quadriceps tendon. IMPRESSION: 1. No acute osseous injury. 2. Large knee joint effusion. 3. Degenerative changes characteristic of osteoarthritis most prominently in the lateral and patellofemoral compartments. Electronically signed by: Geraldo Aaron M.D. 01/20/2018 6:22 PM Dictated Date/Time: 01/20/2018 6:21 PM
== END | disposition home or self-care (01) ==
LOC: C.RAD 17:44
PROVIDERS: ATTEND Physician Assistant
DX: M17.11 Unilateral primary osteoarthritis, right knee (principal)

== ENCOUNTER → 2018-01-31 | Outpatient (CLI) | payer OTHER | END | disposition home or self-care (01) | LOC: C.LABSPEC 17:10 | PROVIDERS: ATTEND Family Medicine Adult Medicine | DX: L72.9 Follicular cyst of the skin and subcutaneous tissue, unspecified (principal) ==

== ENCOUNTER 2018-07-22 21:55 | Inpatient (IN) ==
[2018-07-22] MEDS ORDERED: ASPIRIN CHEW 324 MG PO STA (22:13)
[2018-07-22] MEDS: NITROGLYCERIN SL 0.4 MG/TAB TAB SL PRN ×2 (22:24→23:22)
--- NOTE | 2018-07-22 22:53 | XRay Report ---
XR chest 1V portable CLINICAL HISTORY: 57 years-old Female presenting with Chest Pain. TECHNIQUE: Portable upright AP view of the chest was obtained. COMPARISON: 12/30/2017. FINDINGS: Atherosclerosis of the aortic arch. Cardiac silhouette enlarged. Pulmonary vascular prominence. Allow ing for image quality, brachial wall thickening may be present. No focal opacity. No large effusion o r pneumothorax. Reverse left total shoulder arthroplasty. Degenerative changes of the spine. IMPRESSION: 1. Cardiomegaly with volume overload/congestive change. No florinda pulmonary edema. Electronically signed by: Geraldo Aaron M.D. 07/22/2018 10:52 PM
[2018-07-22 23:26] LABS: Basophils # (auto) 0.03 K/uL (0-0.2); Basophils % (auto) 0.4 %; Eosinophils # (auto) 0.19 K/uL (0-0.5); Eosinophils % (auto) 2.5 %; Hematocrit (blood only) 37.5 % (37-47); Hemoglobin 11.9 g/dL (12.0-16.0); Immature Granulocytes # (auto) 0.06 K/uL (0.00-0.02); Immature Granulocytes % (auto) 0.8 %; Lymphocytes # (auto) 1.77 K/uL (1.2-3.4); Lymphocytes % (auto) 23.3 %; Mean Corpuscular Hgb Conc 31.7 g/dL (32-36); Mean Corpuscular Volume 89.9 fL (80-100); Mean Platelet Volume 10.9 fL (7.4-10.4); Monocytes % (auto) 5.3 %; Neutrophils # (auto) 5.16 K/uL (1.4-6.5); Neutrophils % (auto) 67.7 %; Platelet Count 197 K/uL (130-400); RDW Coefficient of Variation 14.5 % (11.5-14.5); RDW Standard Deviation 47.1 fL (36.4-46.3); Red Blood Count 4.17 M/uL (4.2-5.4); White Blood Count 7.61 K/uL (4.8-10.8)
[2018-07-22 23:36] LABS: HCO3 VBG 31 mmol/L; PCO2 VBG 55 mmHg (38-50); PO2 VBG 31 mmHg; pH VBG 7.36 (7.36-7.41)
[2018-07-22 23:40] LABS: Oxygen Saturation VBG < 60.0 %
[2018-07-22 23:42] LABS: Partial Thromboplastin Ratio 0.9; Partial Thromboplastin Time 22.4 Seconds (21.0-31.0); Prothrombin Time 10.1 Seconds (9.0-12.0)
[2018-07-22 23:46] LABS: BUN Creatinine Ratio 21.9 (10-20); Blood Urea Nitrogen 37 mg/dl (7-18); Calcium 9.7 mg/dl (8.5-10.1); Carbon Dioxide 31 mmol/L (21-32); Chloride 109 mmol/L (98-107); Creatinine Clr Calc Pharmacy 62.4 ml/min; Est GFR (African American) 37.9; Est GFR (Non-African American) 32.7; Glucose 128 mg/dl (70-99); Potassium 4.4 mmol/L (3.5-5.1); Sodium 145 mmol/L (136-145)
[2018-07-22 23:52] LABS: NT Pro B Type Natriuretic Pept 645 pg/ml (0-900); Troponin I < 0.015 ng/ml (0-0.045)
[2018-07-23] MEDS ORDERED: FUROSEMIDE 40 MG/4 ML VIAL IV STA (00:13)
[2018-07-23] MEDS ORDERED: METOPROLOL TARTRATE 50 MG TAB PO STA (00:52)
[2018-07-23] MEDS ORDERED: BusPIRone 15 MG TAB PO ONE (01:00)
[2018-07-23] MEDS ORDERED: LOSARTAN POTASSIUM 50 MG TAB PO ONE (01:00)
[2018-07-23] MEDS ORDERED: ATORVASTATIN 40 MG TAB PO ONE (01:00)
[2018-07-23] MEDS ORDERED: ZINC SULFATE 220 MG CAPSULE PO ONE ×2 (01:00→01:15)
[2018-07-23] MEDS ORDERED: TRAZODONE HCL 50 MG TAB PO ONE ×2 (01:00→22:55)
--- NOTE | 2018-07-23 02:16 | History & Physical Report ---
Date of Service July 23, 2018 Assessment & Plan (1) Hypoxia: 57F here for dyspnea on exertion that began yesterday. PMH: Type 2 diabetes, diastolic CHF, CKD, severe sleep apnea, HTN/HLD. Pt states she went up her stairs in her home which she rarely does and became short of breath. Thought at first that perhaps she was holding her breath and that is why she felt short of breath, but then she took some deep breaths and felt pressure. She states that then she tried an ativan, because she will sometimes get short of breath due to anxiety attacks. That did not help her, so she called up to her to take her to the emergency room. Earlier in the day she had called her crisis specialist's office, who is the one prescribing her lasix, complaining of shortness of breath, and she was advised to take an additional dose of her lasix. She was unable to do so because was already on her way here. Dry weight: 381-383. Today is 395. Of note patient denies change in diet, no increased sodium. Drinks about 52 ounces of water or unsweetened ice tea per day. Denies fevers chills or myalgias. Endorses dry cough. Endorses heavy feeling in her chest which is now improved with Lasix and oxygen. Endorses her legs feeling very tight. Denies history of prolonged immobility or travel, although is quite sedentary at baseline as she only walks from her chair to the bathroom or to the bedroom, uses motorized chair when she is out of her home. Does not elevate her legs regularly. Denies chest pain. Nonadherent with CPAP since May. ED course: hypoxic on room air 88%. CXR shows mild congestion. 40 IV lasix given with good effect. Hypoxia with fluid overload -It appears that her chronic edema and subsequent lasix use is due to multifactorial issues. Patient was hospitalized 6 months ago due to similar complaints, started on Lasix then. Has since been increased to twice a day by her crisis specialist. Pt had a nuclear stress test in august 2017 that was normal, showed grade I diastolic disfunction. Pt has documented severe TRUMAN and has a CPAP mask that is nasal, because she does not tolerate full mask, she is claustrophobic. Of note, she has not been adherent with her mask because of fitting issues since 1 month ago. She wonders if this has anything to do with her fluid retention. Plan -Administer IV Lasix 20 mg scheduled for a.m. which in IV formulation may provide additional benefit. Will leave additional doses of IV Lasix to the discretion of data team, ongoing clinical assessment. -hold home p.o. Lasix which is 20 mg twice daily -Use home CPAP -discussed at length the importance of adherence with CPAP in order to reduce pulmonary hypertension and stress on the heart that exacerbates her fluid overload. -Patient will need education regarding increasing her activity as this will also help with fluid retention, although this is greatly limited by her chronic pain. -Communication order made to elevate her legs 4 times a day. She can do this at home as well, eats to be above the level of the heart. -Observe on telemetry FEN/GI: Heart healthy, diabetic diet. DVT ppx: Heparin, SCDs CODE STATUS: Full code as confirmed with patient DISPO: Telemetry, observation. Other ongoing medical problems: CKD stage III -BUN/creatinine 37/1.69, which is slightly elevated from normal but does not qualify as PATY -Additional diuretics with expected increase in her creatinine -Follow, can consider nephrology consult Diastolic CHF -Dobutamine stress echo earlier last year was negative -Nonischemic symptoms while here, follow -Continue home aspirin 81 mg daily Diabetes, type II -Hold home Trulicity -Insulin sliding scale -Basal insulin ordered at home dose 120 units nightly Hyperlipidemia -Continue home fenofibrate, atorvastatin 80 mg Hypothyroidism -Continue home levothyroxine 50 mcg daily Depression anxiety -Continue home Lexapro 20 mg daily, buspirone 30 mg twice daily, Ativan 1 mg p.o. a.m. and at bedtime as needed Hypertension -Blood pressure acceptable here -Continue losartan 100 mg p.o. daily, metoprolol succinate 100 mg p.o. daily. Edema, on diuretics, electrolytes -As above -continue home potassium chloride 10 mEq p.o. daily, magnesium oxide 400 mg daily Nena Winter MD Assistant Strength Coach (2) CHF exacerbation: (3) Diabetes: (4) Hypertension: (5) Hyperlipemia: (6) Hypothyroidism: (7) Chronic low back pain: (8) Depression: (9) Anxiety: (10) Obstructive sleep apnea on CPAP: (11) Edema: (12) Morbid obesity with BMI of 60.0-69.9, adult: (13) CKD (chronic kidney disease) stage 3, GFR 30-59 ml/min: History of Present Illness Chief Complaint: dyspnea Primary Care Provider: William Howell MD 57F here for dyspnea on exertion that began yesterday. Pt states she went up her stairs in her home which she rarely does and became short of breath. Thought at first that perhaps she was holding her breath and that is why she felt short of breath, but then she took some deep breaths and felt pressure. She states that then she tried an ativan, because she will sometimes get short of breath due to anxiety attacks. That did not help her, so she called up to her to take her to the emergency room. Earlier in the day she had called her crisis specialist's office, who is the one prescribing her lasix, complaining of shortness of breath, and she was advised to take an additional dose of her lasix. She was unable to do so because was already on her way here. Dry weight: 381-383. Today is 395. Patient was hospitalized 6 months ago due to similar complaints, started on Lasix then. Since then has seen her crisis specialist and increase Lasix to twice a day. Pt had a nuclear stress test in august 2017 that was normal, showed grade I diastolic disfunction. Pt has documented TRUMAN and has a CPAP mask that is nasal, because she does not tolerate full mask, she is claustrophobic. Of note , she has not been adherent with her mask because of fitting issues since 1 month ago. She wonders if this has anything to do with her fluid retention. Of note patient denies change in diet, no increased sodium. Drinks about 52 ounces of water or unsweetened ice tea per day. Denies fevers chills or myalgias. Endorses dry cough. Endorses heavy feeling in her chest which is now improved with Lasix and oxygen. Endorses her legs feeling very tight. Denies history of prolonged immobility or travel, although is quite sedentary at baseline as she only walks from her chair to the bathroom or to the bedroom, uses motorized chair when she is out of her home. Does not elevate her legs regularly. Denies chest pain. PMH 1. Diastolic CHF 2. Morbid obesity 3. Severe obstructive sleep apnea, nonadherent with CPAP 4. Edema 5. Hypertension 6. Hyperlipidemia 7. Type 2 diabetes 8. Chronic back pain 9. Depression and anxiety 10. Awaiting bariatric surgery PSH 1. Left shoulder arthroplasty SH: Denies T/E/D. Lives with [facility]. Allergies Allergy/AdvReac Type Severity Reaction Status Date / Time promethazine Allergy Unknown BROKEN Verified 07/22/18 23:52 CAPILLARIES FACE Home Medications Home Medications Medication Instructions Recorded Confirmed Type aspirin 81 mg PO DAILY 07/22/18 07/22/18 History atorvastatin 80 mg PO HS 07/22/18 07/22/18 History buspirone 30 mg PO BID 07/22/18 07/22/18 History dulaglutide [Trulicity] 1.5 mg/ml SUBCUT WK 07/22/18 07/22/18 History ergocalciferol (vitamin D2) 50,000 unit PO DIRECTED 07/22/18 07/22/18 History [Vitamin D2] fenofibrate nanocrystallized 145 mg PO DAILY 07/22/18 07/22/18 History furosemide [Lasix] 20 mg PO DAILY 07/22/18 07/22/18 History escitalopram oxalate [Lexapro] 20 mg PO DAILY 07/23/18 07/23/18 History insulin glargine [Basaglar KwikPen 120 unit SUBCUT HS 07/23/18 07/23/18 History U-100 Insulin] levothyroxine 50 mcg PO DAILY 07/23/18 07/23/18 History lorazepam [Ativan] 1 mg PO AMHS 07/23/18 07/23/18 History losartan 100 mg PO DAILY 07/23/18 07/23/18 History magnesium oxide 400 mg PO DAILY 07/23/18 07/23/18 History metoprolol succinate 100 mg PO DAILY 07/23/18 07/23/18 History potassium chloride 10 meq PO DAILY 07/23/18 07/23/18 History trazodone 50 mg PO HS PRN MDD 100 07/23/18 07/23/18 History zinc gluconate 100 mg PO DAILY 07/23/18 07/23/18 History Past Med/Surg History Medical History Diabetes (Chronic) Hypertension (Chronic) Hyperlipemia (Chronic) Hypothyroidism (Chronic) Chronic low back pain (Chronic) Depression (Chronic) Anxiety (Chronic) Avascular necrosis of head of humerus Surgical History Hx of cholecystectomy (Resolved) Social History Current Living Situation: Spouse Other Information That Helps Us Care for You: No Feels Safe at Home: Yes Safety Concerns: Feels Safe At This Time Smoking Status: Never smoker Hx Alcohol Use: No Hx Substance Use: No Beliefs That Will Affect Care: None Preferred Language: [place] Communication Ability: Effective Emergency Spill Response Technician Required: No Review of Systems All systems reviewed & are unremarkable except as noted in HPI & below Physical Exam 2 Vital Signs (Past 24 Hours): Last Vital Signs Temp 36.8 C 07/22/18 22:00 Pulse 79 07/23/18 00:31 Resp 18 07/23/18 00:31 BP 209/104 H 07/23/18 00:31 Pulse Ox 96 07/23/18 00:31 Physical Exam: Vitals noted as above and within normal limits with the exception of hypertension. GENERAL: Awake, alert to person, place, and time, nontoxic-appearing, in no distress. Well-nourished weight 179 kg. HENT: Normocephalic, atraumatic. Nasal cannula in place. Mucus membranes appear moist. EYES: Normal conjunctiva. Sclera non-icteric. EOMI. NECK: Supple. Full range of motion. No JVD RESPIRATORY: Clear to auscultation. Normal work of breathing. Slightly diminished at the bases. No crackles. CARDIAC: Regular rate, normal rhythm. Extremities warm and well perfused, 2+ radial pulses bilaterally; 2+ posterior tibialis pulses bilaterally. Systolic murmur noted 2 out of 6. ABDOMEN: Soft, non-distended. No tenderness to palpation in all four quadrants. No rebound or guarding. No masses. Bowel sounds are normal. LOWER EXTREMITIES: Inspection of calves reveal equal size bilaterally. They are non-tender. 1+ edema. No discoloration. NEURO: No focal gross focal motor deficits noted. Sensation in tact. CN II-XII grossly in tact. SKIN: Rash not present. No jaundice noted. Significant lesions not present. PSYCH: Appropriate mood and affect. Cooperative. Exam as done by Nena Winter MD, Assistant Strength Coach. Results & Data Laboratory Results 07/22/18 07/22/18 07/22/18 Range/Units 23:19 23:15 23:15 WBC (4.8-10.8) K/uL RBC (4.2-5.4) M/uL Hgb (12.0-16.0) g/dL Hct (37-47) % MCV (80-100) fL MCH (25-34) pg MCHC (32-36) g/dL RDW Std Deviation (36.4-46.3) fL RDW Coeff of Chantal (11.5-14.5) % Plt Count (130-400) K/uL MPV (7.4-10.4) fL Immature Gran % (Auto) % Neut % (Auto) % Lymph % (Auto) % [place] % (Auto) % Eos % (Auto) % Baso % (Auto) % Immature Gran # (Auto) (0.00-0.02) K/uL Neut # (Auto) (1.4-6.5) K/uL Lymph # (Auto) (1.2-3.4) K/uL [place] # (Auto) (0.11-0.59) K/uL Eos # (Auto) (0-0.5) K/uL Baso # (Auto) (0-0.2) K/uL PT 10.1 (9.0-12.0) Seconds INR 1.0 (0.9-1.1) APTT 22.4 (21.0-31.0) Seconds PTT Ratio 0.9 VBG pH 7.36 (7.36-7.41) VBG pCO2 55 H (38-50) mmHg VBG pO2 31 mmHg VBG HCO3 31 mmol/L VBG O2 Saturation < 60.0 % VBG Base Excess 4.0 mEq/L Barometric Pressure 734.8 mm/Hg Sodium 145 (136-145) mmol/L Potassium 4.4 (3.5-5.1) mmol/L Chloride 109 H (98-107) mmol/L Carbon Dioxide 31 (21-32) mmol/L Anion Gap 5.0 (3-11) BUN 37 H (7-18) mg/dl Creatinine 1.69 H (0.6-1.2) mg/dl Est Cr Clr Drug Dosing 62.4 ml/min Est GFR ( Amer) 37.9 Est GFR (Non-Af Amer) 32.7 BUN/Creatinine Ratio 21.9 H (10-20) Glucose 128 H (70-99) mg/dl Calcium 9.7 (8.5-10.1) mg/dl Troponin I < 0.015 (0-0.045) ng/ml NT-Pro-B Natriuret Pep 645 (0-900) pg/ml Lipase 110 (73-393) U/L Specimen Hemolysis 07/22/18 Range/Units 23:15 WBC 7.61 (4.8-10.8) K/uL RBC 4.17 L (4.2-5.4) M/uL Hgb 11.9 L (12.0-16.0) g/dL Hct 37.5 (37-47) % MCV 89.9 (80-100) fL MCH 28.5 (25-34) pg MCHC 31.7 L (32-36) g/dL RDW Std Deviation 47.1 H (36.4-46.3) fL RDW Coeff of Chantal 14.5 (11.5-14.5) % Plt Count 197 (130-400) K/uL MPV 10.9 H (7.4-10.4) fL Immature Gran % (Auto) 0.8 % Neut % (Auto) 67.7 % Lymph % (Auto) 23.3 % [place] % (Auto) 5.3 % Eos % (Auto) 2.5 % Baso % (Auto) 0.4 % Immature Gran # (Auto) 0.06 H (0.00-0.02) K/uL Neut # (Auto) 5.16 (1.4-6.5) K/uL Lymph # (Auto) 1.77 (1.2-3.4) K/uL [place] # (Auto) 0.40 (0.11-0.59) K/uL Eos # (Auto) 0.19 (0-0.5) K/uL Baso # (Auto) 0.03 (0-0.2) K/uL PT (9.0-12.0) Seconds INR (0.9-1.1) APTT (21.0-31.0) Seconds PTT Ratio VBG pH (7.36-7.41) VBG pCO2 (38-50) mmHg VBG pO2 mmHg VBG HCO3 mmol/L VBG O2 Saturation % VBG Base Excess mEq/L Barometric Pressure mm/Hg Sodium (136-145) mmol/L Potassium (3.5-5.1) mmol/L Chloride (98-107) mmol/L Carbon Dioxide (21-32) mmol/L Anion Gap (3-11) BUN (7-18) mg/dl Creatinine (0.6-1.2) mg/dl Est Cr Clr Drug Dosing ml/min Est GFR ( Amer) Est GFR (Non-Af Amer) BUN/Creatinine Ratio (10-20) Glucose (70-99) mg/dl Calcium (8.5-10.1) mg/dl Troponin I (0-0.045) ng/ml NT-Pro-B Natriuret Pep (0-900) pg/ml Lipase (73-393) U/L Specimen Hemolysis Diagnostic Findings Chest x-ray significant for stable cardiomegaly with pulmonary vascular prominence. Medications Administered 40 Lasix IV ECG Additional Comments: EKG shows normal sinus rhythm, no ischemic changes or ST elevations. Rate in the 80s. QTC 440. Code Status & VTE Plan Code Status Full VTE Prophylaxis Plan VTE Prophylaxis will be ordered: Yes Supervising Physician Co-Signing Physician Notes Attending addendum: I have physically seen this patient, have supervised the medical residents activities, and agree with the H&P unless as otherwise noted. Assessment and Plan: Transient hypoxia to 88% on room air/obesity hypoventilation syndrome/mild fluid overload-- Current weight of 395 is 12 pounds above her dry weight. Received Lasix 40 mg IV in ED. Does not wear CPAP at nighttime, and as noted in past records, is likely in part contributing to her overall problem. Place on Lasix 20 mg IV every morning, until seen by Dr. Kang. Encouraged to wear CPAP at nighttime for TRUMAN/obesity hypoventilation syndrome. Duonebs every 4 hours while awake and every 2 hours when necessary. Echo performed within the past 6 months shows a good ejection fraction. Follow serial BMP and magnesium levels. Remainder of orders and notations as noted. Resident Activity Tracking Resident Involvement: Resident Care Provided Care Provided: [facility] _ (1) CHF exacerbation Heart failure type: unspecified Qualified Code(s): I50.9 - Heart failure, unspecified
--- NOTE | 2018-07-23 02:33 | Emergency Department Note ---
Entered by Elaine Smith acting as a scribe for History of Present Illness General Chief complaint: Shortness of Breath/Dyspnea Stated complaint: SOB; RETAINING FLUIDS Time Seen by Provider: 07/22/18 22:08 Source: patient History of Present Illness Onset (ago): day(s) 10 Location: chest Severity: similar to prior episodes Pain Consistency: + other (worsening) Maximum Pain Intensity: 8 Quality: + other (shortness of breath) Associated symptoms: + chest pain (tightness) and + other (positive 10 pound weight gain) Treatments prior to arrival: other (Lorazepam) The patient is a 57 year old female who presents to the Emergency Room with complaints of worsening shortness of breath that began 10 days prior to arrival. The patient states that this is similar to prior episodes of fluid overload. The patient states that she has a tightness in her chest with these symptoms. The patient states that she took Lorazepam 2 hours prior to arrival because she believed that she was having an anxiety attack, and states that this is now improving her symptoms. She states that she has gained about 10 pounds over the past 2 weeks. The patient states that she talked to her doctor today who told her to increase her Lasix to 40 two times a day. The patient denies any recent travel. Home Medications Home Medications Medication Instructions Recorded Confirmed Type aspirin 81 mg PO DAILY 07/22/18 07/22/18 History atorvastatin 80 mg PO HS 07/22/18 07/22/18 History buspirone 30 mg PO BID 07/22/18 07/22/18 History dulaglutide [Trulicity] 1.5 mg/ml SUBCUT WK 07/22/18 07/22/18 History ergocalciferol (vitamin D2) 50,000 unit PO DIRECTED 07/22/18 07/22/18 History [Vitamin D2] fenofibrate nanocrystallized 145 mg PO DAILY 07/22/18 07/22/18 History furosemide [Lasix] 20 mg PO DAILY 07/22/18 07/22/18 History escitalopram oxalate [Lexapro] 20 mg PO DAILY 07/23/18 07/23/18 History insulin glargine [Basaglar KwikPen 120 unit SUBCUT HS 07/23/18 07/23/18 History U-100 Insulin] levothyroxine 50 mcg PO DAILY 07/23/18 07/23/18 History lorazepam [Ativan] 1 mg PO AMHS 07/23/18 07/23/18 History losartan 100 mg PO DAILY 07/23/18 07/23/18 History magnesium oxide 400 mg PO DAILY 07/23/18 07/23/18 History metoprolol succinate 100 mg PO DAILY 07/23/18 07/23/18 History potassium chloride 10 meq PO DAILY 07/23/18 07/23/18 History zinc gluconate 100 mg PO DAILY 07/23/18 07/23/18 History Allergies Allergy/AdvReac Type Severity Reaction Status Date / Time promethazine Allergy Unknown BROKEN Verified 07/22/18 23:52 CAPILLARIES FACE Past Med/Surg History Medical History Diabetes (Chronic) Hypertension (Chronic) Hyperlipemia (Chronic) Hypothyroidism (Chronic) Chronic low back pain (Chronic) Depression (Chronic) Anxiety (Chronic) Avascular necrosis of head of humerus Surgical History Hx of cholecystectomy (Resolved) Social History Feels Safe at Home: Yes Smoking Status: Never smoker Preferred Language: Pashto Review of Systems See HPI for pertinent positives & negatives. and A total of 10 systems reviewed and were otherwise negative Physical Exam Vital Signs Vital Signs - 24 hr 07/22/18 22:00 07/22/18 22:21 07/22/18 22:24 Temperature 36.8 C Temperature Source Oral Sepsis Recent Fever Within 48 Hours No Sepsis Action Taken by Nursing No Action Required Pulse Rate 89 Pulse Rate [Apical] 93 H Respiratory Rate 24 Respiratory Effort / Characteristics Non-Labored Spontaneous Respiratory Depth Normal Respiratory Pattern Blood Pressure 225/67 H Blood Pressure [Right Arm] 189/96 H Blood Pressure Mean 119 Blood Pressure Mean [Right Arm] 127 Blood Pressure Position [Right Arm] Pulse Oximetry 94 93 Oxygen Delivery Method Room Air Room Air Oxygen Flow Rate 07/22/18 22:47 07/22/18 23:23 07/22/18 23:26 Temperature Temperature Source Sepsis Recent Fever Within 48 Hours Sepsis Action Taken by Nursing Pulse Rate Pulse Rate [Apical] 87 77 81 Respiratory Rate 18 18 Respiratory Effort / Characteristics Non-Labored Spontaneous Non-Labored Spontaneous Respiratory Depth Normal Normal Respiratory Pattern Regular Blood Pressure Blood Pressure [Right Arm] 188/99 H 199/82 H 145/87 H Blood Pressure Mean Blood Pressure Mean [Right Arm] 128 121 106 Blood Pressure Position [Right Arm] Sitting Sitting Pulse Oximetry 96 96 Oxygen Delivery Method Room Air Room Air Oxygen Flow Rate 07/23/18 00:15 07/23/18 00:31 Temperature Temperature Source Sepsis Recent Fever Within 48 Hours Sepsis Action Taken by Nursing Pulse Rate Pulse Rate [Apical] 77 79 Respiratory Rate 18 18 Respiratory Effort / Characteristics Non-Labored Spontaneous Non-Labored Spontaneous Respiratory Depth Normal Normal Respiratory Pattern Regular Blood Pressure Blood Pressure [Right Arm] 189/87 H 209/104 H Blood Pressure Mean Blood Pressure Mean [Right Arm] 121 139 Blood Pressure Position [Right Arm] Sitting Sitting Pulse Oximetry 88 L 96 Oxygen Delivery Method Nasal Cannula Nasal Cannula Oxygen Flow Rate 0 2 GENERAL: The patient is oriented to person, place, and time. Appears well- developed and well-nourished. Does not appear distressed. Morbidly obese. HENT: Exam performed. Head: Normocephalic and atraumatic. Right Ear: External ear normal. No mastoid tenderness. Left Ear: External ear normal. No mastoid tenderness. Mouth/Throat: The oropharynx is clear and moist. No trismus in the jaw. No dental abscesses or uvula swelling. No oropharyngeal exudate or tonsillar abscesses. EYES: Conjunctivae and EOM are normal. Pupils are equal, round, and reactive to light. Right eye exhibits no discharge. Left eye exhibits no discharge. No scleral icterus. NECK: Normal range of motion. Neck supple. No JVD present. No spinous process tenderness present. No carotid bruit present. No rigidity. No tracheal deviation and normal range of motion present. No Brudzinski's sign and no Kernig 's sign noted. CV: Normal rate, regular rhythm, normal heart sounds and intact distal pulses. Palpable radial pulses bue. PULM/CHEST: Effort normal. No respiratory distress. No stridor. There are no wheezes. Rales at the bases. Chest Wall: Patient exhibits no tenderness. ABD: The abdomen is soft. Morbidly obese. Bowel sounds are normal. There is no distension. No mass is present. There is no tenderness. There is no rebound, no guarding, no Rivera's sign and no tenderness at McBurney's point. Rovsig negative MUSC/SKEL: Normal range of motion. There is no peripheral tenderness or deformity. 3+ pitting edema in the bilateral lower extremities. LYMPH: No cervical adenopathy. NEURO: Patient is alert and oriented to person, place, and time. Normal strength. No cranial nerve deficit or sensory deficit. Coordination and gait normal. GCS eye subscore is 4. GCS verbal subscore is 5. GCS motor subscore is 6. cerbellar tests wnl. SKIN: Skin is warm and dry. Patient is not diaphoretic. PSYCH: Patient has a normal mood and affect. Behavior is normal. Judgment and thought content normal. Course 2208: Past medical records reviewed. The patient was evaluated in room B5, and a complete history and physical examination were performed. Patient has elevated blood pressure, bilateral lower extremity pitting edema, and rales bilaterally on lung auscultation. Patient will be treated as if she is in fluid overload/flash pulmonary edema. Nitroglycerin bolus 0.4 mg sublingually ordered. 2243: The patient states that she has no significant improvement of her shortness of breath status post 1 sublingual Nitro. The patient's repeat blood pressure is 188/99. We will repeat sublingual Nitro. 2354: Upon reevaluation, the patient is feeling better after her second Nitro. The patient's repeat blood pressure is 140/87. 0023: Chest x-ray shows cardiomegaly with cephalization. Labs are within normal limits. The patient will be admitted for CHF exacerbation. 40 mg of [facility]ix [facility] and he will further evaluate the patient. Consultations [facility] and he will further evaluate the patient. Time: 00:23 Administered Medications Nitroglycerin (Nitrostat) 0.4 mg SL UD PRN PRN Reason: Chest Pain Stop: 08/21/18 22:12 Last Admin: 07/22/18 23:22 Dose: 0.4 mg Admin: 07/22/18 22:24 Dose: 0.4 mg Discontinued Medications Aspirin (Aspirin) 324 mg PO NOW STA Stop: 07/22/18 22:14 Last Admin: 07/22/18 22:24 Dose: 324 mg Atorvastatin Calcium (Lipitor) 80 mg PO ONCE ONE Stop: 07/23/18 01:01 Last Admin: 07/23/18 01:07 Dose: 80 mg Buspirone HCl (Buspar) 30 mg PO ONCE ONE Stop: 07/23/18 01:01 Last Admin: 07/23/18 01:09 Dose: 30 mg Furosemide (Lasix) 40 mg IV NOW STA Stop: 07/23/18 00:14 Last Admin: 07/23/18 00:20 Dose: 40 mg Losartan Potassium (Cozaar) 100 mg PO ONCE ONE Stop: 07/23/18 01:01 Last Admin: 07/23/18 01:06 Dose: 100 mg Metoprolol Tartrate (Lopressor) 50 mg PO NOW STA Stop: 07/23/18 00:53 Last Admin: 07/23/18 01:05 Dose: 50 mg Trazodone HCl (Desyrel) 50 mg PO ONCE ONE Stop: 07/23/18 01:01 Last Admin: 07/23/18 01:06 Dose: 50 mg Zinc Sulfate (Zinc Sulfate) 220 mg PO ONCE ONE Stop: 07/23/18 01:16 Last Admin: 07/23/18 01:15 Dose: 220 mg Medical Decision Making Medical Records Attestation: I reviewed the patient's medical records. Home Medications Current Medication List: was personally reviewed by me Laboratory Data Attestation: I reviewed the patient's lab results. Result diagrams: 07/22/18 23:15 07/22/18 23:15 Lab Results 07/22/18 07/22/18 07/22/18 Range/Units 23:15 23:15 23:15 WBC 7.61 (4.8-10.8) K/uL RBC 4.17 L (4.2-5.4) M/uL Hgb 11.9 L (12.0-16.0) g/dL Hct 37.5 (37-47) % MCV 89.9 (80-100) fL MCH 28.5 (25-34) pg MCHC 31.7 L (32-36) g/dL RDW Std Deviation 47.1 H (36.4-46.3) fL RDW Coeff of Chantal 14.5 (11.5-14.5) % Plt Count 197 (130-400) K/uL MPV 10.9 H (7.4-10.4) fL Immature Gran % (Auto) 0.8 % Neut % (Auto) 67.7 % Lymph % (Auto) 23.3 % [place] % (Auto) 5.3 % Eos % (Auto) 2.5 % Baso % (Auto) 0.4 % Immature Gran # (Auto) 0.06 H (0.00-0.02) K/uL Neut # (Auto) 5.16 (1.4-6.5) K/uL Lymph # (Auto) 1.77 (1.2-3.4) K/uL [place] # (Auto) 0.40 (0.11-0.59) K/uL Eos # (Auto) 0.19 (0-0.5) K/uL Baso # (Auto) 0.03 (0-0.2) K/uL PT 10.1 (9.0-12.0) Seconds INR 1.0 (0.9-1.1) APTT 22.4 (21.0-31.0) Seconds PTT Ratio 0.9 VBG pH (7.36-7.41) VBG pCO2 (38-50) mmHg VBG pO2 mmHg VBG HCO3 mmol/L VBG O2 Saturation % VBG Base Excess mEq/L Barometric Pressure mm/Hg Sodium 145 (136-145) mmol/L Potassium 4.4 (3.5-5.1) mmol/L Chloride 109 H (98-107) mmol/L Carbon Dioxide 31 (21-32) mmol/L Anion Gap 5.0 (3-11) BUN 37 H (7-18) mg/dl Creatinine 1.69 H (0.6-1.2) mg/dl Est Cr Clr Drug Dosing 62.4 ml/min Est GFR ( Amer) 37.9 Est GFR (Non-Af Amer) 32.7 BUN/Creatinine Ratio 21.9 H (10-20) Glucose 128 H (70-99) mg/dl Calcium 9.7 (8.5-10.1) mg/dl Troponin I < 0.015 (0-0.045) ng/ml NT-Pro-B Natriuret Pep 645 (0-900) pg/ml Lipase 110 (73-393) U/L Specimen Hemolysis 07/22/18 Range/Units 23:19 WBC (4.8-10.8) K/uL RBC (4.2-5.4) M/uL Hgb (12.0-16.0) g/dL Hct (37-47) % MCV (80-100) fL MCH (25-34) pg MCHC (32-36) g/dL RDW Std Deviation (36.4-46.3) fL RDW Coeff of Chantal (11.5-14.5) % Plt Count (130-400) K/uL MPV (7.4-10.4) fL Immature Gran % (Auto) % Neut % (Auto) % Lymph % (Auto) % Verm[place] % (Auto) % Eos % (Auto) % Baso % (Auto) % Immature Gran # (Auto) (0.00-0.02) K/uL Neut # (Auto) (1.4-6.5) K/uL Lymph # (Auto) (1.2-3.4) K/uL [place] # (Auto) (0.11-0.59) K/uL Eos # (Auto) (0-0.5) K/uL Baso # (Auto) (0-0.2) K/uL PT (9.0-12.0) Seconds INR (0.9-1.1) APTT (21.0-31.0) Seconds PTT Ratio VBG pH 7.36 (7.36-7.41) VBG pCO2 55 H (38-50) mmHg VBG pO2 31 mmHg VBG HCO3 31 mmol/L VBG O2 Saturation < 60.0 % VBG Base Excess 4.0 mEq/L Barometric Pressure 734.8 mm/Hg Sodium (136-145) mmol/L Potassium (3.5-5.1) mmol/L Chloride (98-107) mmol/L Carbon Dioxide (21-32) mmol/L Anion Gap (3-11) BUN (7-18) mg/dl Creatinine (0.6-1.2) mg/dl Est Cr Clr Drug Dosing ml/min Est GFR ( Amer) Est GFR (Non-Af Amer) BUN/Creatinine Ratio (10-20) Glucose (70-99) mg/dl Calcium (8.5-10.1) mg/dl Troponin I (0-0.045) ng/ml NT-Pro-B Natriuret Pep (0-900) pg/ml Lipase (73-393) U/L Specimen Hemolysis Imaging Data Radiologist's Impression: Radiology results as stated below per my review and the radiologist's interpretation: XR chest 1V portable CLINICAL HISTORY: 57 years-old Female presenting with Chest Pain. TECHNIQUE: Portable upright AP view of the chest was obtained. COMPARISON: 12/30/2017. FINDINGS: Atherosclerosis of the aortic arch. Cardiac silhouette enlarged. Pulmonary vascular prominence. Allowing for image quality, brachial wall thickening may be present. No focal opacity. No large effusion or pneumothorax. Reverse left total shoulder arthroplasty. Degenerative changes of the spine. IMPRESSION: 1. Cardiomegaly with volume overload/congestive change. No florinda pulmonary edema. Electronically signed by: Geraldo Aaron M.D. 07/22/2018 10:52 PM ECG Data Attestation: I personally reviewed and interpreted this ECG as follows: Indication: SOB/dyspnea Rate (beats per minute): 93 Rhythm: sinus rhythm Findings: + other (IL, QRS, and QTC intervals within normal limits); no ST depression and no ST elevation Blood Pressure Blood Pressure Findings: Elevated blood pressure Blood Pressure Disposition: further management by hospitalist KRISTEN Narrative 2209: Past medical records reviewed. The patient was evaluated in room B5, and a complete history and physical examination were performed. Patient has elevated blood pressure, bilateral lower extremity pitting edema, and rales bilaterally on lung auscultation. Patient will be treated as if she is in fluid overload/flash pulmonary edema. Nitroglycerin bolus 0.4 mg sublingually ordered. 2243: The patient states that she has no significant improvement of her shortness of breath status post 1 sublingual Nitro. The patient's repeat blood pressure is 188/99. We will repeat sublingual Nitro. 2354: Upon reevaluation, the patient is feeling better after her second Nitro. The patient's repeat blood pressure is 140/87. 0023: Chest x-ray shows cardiomegaly with cephalization. Labs are within normal limits. The patient will be admitted for CHF exacerbation. 40 mg of Lasix will be ordered. Dr. [facility] Hospitalist was notified and he will further evaluate the patient. Impression & Plan CHF exacerbation Discharge Plan Visit Data Chief Complaint: Shortness of Breath/Dyspnea Stated Complaint: SOB; RETAINING FLUIDS ED Provider: Saurav Washburn Discharge Problem: CHF exacerbation Patient Disposition: Being Evaluated by Hospitalist Forms Stand Alone Forms: My [employer] Prescriptions Prescriptions: No Action aspirin 81 mg Tablet,Delayed Release (Dr/Ec) 81 mg PO DAILY RF: 0 atorvastatin 80 mg Tablet 80 mg PO HS RF: 0 buspirone 30 mg Tablet 30 mg PO BID RF: 0 ergocalciferol (vitamin D2) [Vitamin D2] 50,000 unit Capsule 50,000 unit PO DIRECTED RF: 0 dulaglutide [Trulicity] 1.5 mg/0.5 mL Pen Injector 1.5 mg/ml subcut WK RF: 0 fenofibrate nanocrystallized 145 mg Tablet 145 mg PO DAILY RF: 0 furosemide [Lasix] 20 mg Tablet 20 mg PO DAILY RF: 0 insulin glargine [Basaglar KwikPen U-100 Insulin] 100 unit/mL (3 mL) Insulin Pen 120 unit SUBCUT HS RF: 0 levothyroxine 50 mcg Tablet 50 mcg PO DAILY RF: 0 lorazepam [Ativan] 1 mg Tablet 1 mg PO AMHS RF: 0 losartan 100 mg Tablet 100 mg PO DAILY RF: 0 magnesium oxide 400 mg Capsule 400 mg PO DAILY RF: 0 metoprolol succinate 100 mg Tablet Extended Release 24 Hr 100 mg PO DAILY RF: 0 zinc gluconate 100 mg Tablet 100 mg PO DAILY RF: 0 escitalopram oxalate [Lexapro] 20 mg Tablet 20 mg PO DAILY RF: 0 potassium chloride 10 mEq Tablet Extended Release 10 meq PO DAILY RF: 0 Referrals Referrals: William Lewis MD [Primary Care Provider] - The scribe's documentation has been prepared under my direction and personally reviewed by me in its entirety. I confirm that the note above accurately reflects all work, treatment, procedures, and medical decision making performed by me.
[2018-07-23] MEDS ORDERED: ACETAMINOPHEN 325 MG TAB PO PRN (03:44)
[2018-07-23] MEDS ORDERED: GLUCOSE 40% GEL 15 GM TUBE PO PRN (03:44)
[2018-07-23] MEDS ORDERED: GLUCAGON FOR INJ 1 MG VIAL SQ PRN (03:44)
[2018-07-23] MEDS ORDERED: POLYETHYLENE (MIRALAX) 17 GM PACK PO PRN (03:44)
[2018-07-23] MEDS ORDERED: ALUMINUM/MAGNESIUM SUSP 30 ML UDC PO PRN (03:44)
[2018-07-23] MEDS ORDERED: CARBOHYDRATES FOR HYPOGLYCEMIA PO PRN (03:44)
[2018-07-23] MEDS ORDERED: GLUCOSE 10 TABS/TUBE PO PRN (03:44)
[2018-07-23] MEDS ORDERED: NITROGLYCERIN SL 0.4 MG/TAB TAB SL PRN (03:44)
[2018-07-23] MEDS ORDERED: MAGNESIUM HYDROXIDE SUSP 30 ML UDC PO PRN (03:44)
[2018-07-23] MEDS ORDERED: LORazepam 1 MG TAB PO PRN (03:44)
[2018-07-23] MEDS ORDERED: DEXTROSE 50% 50 ML SYRINGE IV PRN (03:44)
[2018-07-23] MEDS: LEVOTHYROXINE SODIUM 50 MCG TABLET PO SCH (05:44)
[2018-07-23] MEDS ORDERED: FUROSEMIDE 20 MG in SYRINGE 0 ML IV SCH (07:00)
[2018-07-23] MEDS ORDERED: FUROSEMIDE 40 MG/4 ML VIAL IV SCH (07:00)
[2018-07-23 07:35] LABS: Estimated Average Glucose 177 mg/dl
[2018-07-23] MEDS: ASPIRIN 81 MG ECTAB PO SCH (08:06)
[2018-07-23] MEDS: POTASSIUM CHLORIDE 10 MEQ TABCR PO SCH (08:06)
[2018-07-23] MEDS: MAGNESIUM OXIDE 400 MG TAB PO SCH (08:06)
[2018-07-23] MEDS: ESCITALOPRAM OXALATE 20 MG TAB PO SCH (08:06)
[2018-07-23] MEDS: FENOFIBRATE NANOCRYSTALLIZED 145 MG TABLET PO SCH (08:06)
[2018-07-23] MEDS: ZINC SULFATE 220 MG CAPSULE PO SCH (08:07)
[2018-07-23] MEDS: LOSARTAN POTASSIUM 50 MG TAB PO SCH (08:07)
[2018-07-23] MEDS: BusPIRone 15 MG TAB PO SCH ×2 (08:07→20:30)
[2018-07-23] MEDS: METOPROLOL SUCC 50MG EXT REL TAB PO SCH (08:07)
[2018-07-23] MEDS: HEPARIN SOD 5,000 UNIT/0.5 ML VIAL SQ SCH ×2 (08:11→20:31)
[2018-07-23] MEDS: INSULIN ASPART 100 UNITS/ML 3 ML PEN SC SCH ×4 (08:17→20:36)
--- NOTE | 2018-07-23 13:29 | Hospitalist Progress Note ---
Date of Service July 23, 2018 Assessment & Plan (1) Hypoxia: Hypoxic respiratory failure secondary to diastolic congestive heart failure exacerbation and likely pulmonary hypertension due to non compliance with CPAP mask - 88% on RA in the ED - approximately 14 pounds gained by patient's estimation - patient was to start a low carb diet in preparation for gastric bypass surgery coming up so was eating her favorite foods such as fried food before it started - high sodium intake. - nuclear stress test in august 2017 that was normal, showed grade I diastolic disfunction. - continue with furosemide diuresis - 40 mg IV daily -hold home p.o. Lasix which is 20 mg twice daily - increase activity as much as possible - limited by chronic back pain -Communication order made to elevate her legs 4 times a day. Other ongoing medical problems: Diastolic CHF -Dobutamine stress echo earlier last year was negative -Nonischemic symptoms while here, follow -Continue home aspirin 81 mg daily Diabetes, type II -Hold home Trulicity -Insulin sliding scale -Basal insulin ordered at home dose 120 units nightly Hyperlipidemia -Continue home fenofibrate, atorvastatin 80 mg Hypothyroidism -Continue home levothyroxine 50 mcg daily Depression anxiety -Continue home Lexapro 20 mg daily, buspirone 30 mg twice daily, Ativan 1 mg p.o. a.m. and at bedtime as needed Hypertension -Blood pressure acceptable here -Continue losartan 100 mg p.o. daily, metoprolol succinate 100 mg p.o. daily. Edema, on diuretics, electrolytes -As above -continue home potassium chloride 10 mEq p.o. daily, magnesium oxide 400 mg daily Nena Winter MD [employer] (2) CHF exacerbation: As above (3) Diabetes: DMII bsgs ac & hs, ss and lantus (4) Hypertension: continue home losartan, (5) Hyperlipemia: continue atorvastatin (6) Hypothyroidism: continue levothyroxine (7) Chronic low back pain: stable (8) Anxiety: continue buspirone (9) Obstructive sleep apnea on CPAP: Pt has documented severe TRUMAN and has a CPAP mask that is nasal, because she does not tolerate full mask, she is claustrophobic. She has not been adherent with her mask because of fitting issues since 1 month ago. - connection between fluid retention and TRUMAN was explained by admitting physician and reinforced by myself. She verbalizes understanding and will bring in her CPAP to wear at night (10) Morbid obesity with BMI of 60.0-69.9, adult: Patient to have gastric bypass in the near future (11) CKD (chronic kidney disease) stage 3, GFR 30-59 ml/min: CKD stage III -BUN/creatinine 37/1.69 which is near baseline - follow creat given additional diuretics - prp am (12) DVT prophylaxis: heparin subq, scs Subjective Review of Systems All systems reviewed & are unremarkable except as noted in HPI & below Physical Exam 2 Vital Signs (Past 24 Hours): Last Vital Signs Temp 36.7 C 07/23/18 11:00 Pulse 74 07/23/18 11:00 Resp 18 07/23/18 11:00 BP 151/73 H 07/23/18 11:00 Pulse Ox 93 07/23/18 11:00 Physical Exam: General: no distress Eyes: normal inspection, PERLL Respiratory: chest non tender, clear to auscultation, normal breath sounds, no respiratory distress, no accessory muscle use Cardiac: regular rate and rhythm, no rub or gallop, no murmur, no edema, no jvd GI/: active bowel sounds, no abd pain or tenderness, soft, non distended Extremities: normal range of motion, normal strength, non tender Neuro/Psych: alert and oriented x 3, normal mood and affect Skin: normal color, dry Results & Data Laboratory Results Abnormal lab results 07/22/18 07/22/18 07/22/18 Range/Units 23:15 23:15 23:19 RBC 4.17 L (4.2-5.4) M/uL Hgb 11.9 L (12.0-16.0) g/dL MCHC 31.7 L (32-36) g/dL RDW Std Deviation 47.1 H (36.4-46.3) fL MPV 10.9 H (7.4-10.4) fL Immature Gran # (Auto) 0.06 H (0.00-0.02) K/uL VBG pCO2 55 H (38-50) mmHg Chloride 109 H (98-107) mmol/L BUN 37 H (7-18) mg/dl Creatinine 1.69 H (0.6-1.2) mg/dl BUN/Creatinine Ratio 21.9 H (10-20) Glucose 128 H (70-99) mg/dl POC Glucose (70-99) Hemoglobin A1c (4.5-5.6) % 07/23/18 07/23/18 07/23/18 Range/Units 06:50 07:20 11:21 RBC (4.2-5.4) M/uL Hgb (12.0-16.0) g/dL MCHC (32-36) g/dL RDW Std Deviation (36.4-46.3) fL MPV (7.4-10.4) fL Immature Gran # (Auto) (0.00-0.02) K/uL VBG pCO2 (38-50) mmHg Chloride (98-107) mmol/L BUN (7-18) mg/dl Creatinine (0.6-1.2) mg/dl BUN/Creatinine Ratio (10-20) Glucose (70-99) mg/dl POC Glucose 185 H 253 H (70-99) Hemoglobin A1c 7.8 H (4.5-5.6) % _ (1) CHF exacerbation Heart failure type: unspecified Qualified Code(s): I50.9 - Heart failure, unspecified
[2018-07-23] MEDS ORDERED: FUROSEMIDE 40 MG in SYRINGE 0 ML IV ONE (14:15)
[2018-07-23] MEDS: INSULIN GLARGINE 100 UNIT/ML VIAL SQ SCH (20:32)
[2018-07-23] MEDS: ATORVASTATIN 40 MG TAB PO SCH (20:35)
[2018-07-23] MEDS ORDERED: FUROSEMIDE 40 MG in SYRINGE 0 ML IV SCH (21:00)
[2018-07-24] MEDS: LEVOTHYROXINE SODIUM 50 MCG TABLET PO SCH (05:37)
[2018-07-24 06:56] LABS: Basophils # (auto) 0.03 K/uL (0-0.2); Basophils % (auto) 0.5 %; Eosinophils # (auto) 0.18 K/uL (0-0.5); Eosinophils % (auto) 2.7 %; Immature Granulocytes # (auto) 0.04 K/uL (0.00-0.02); Immature Granulocytes % (auto) 0.6 %; Lymphocytes # (auto) 1.85 K/uL (1.2-3.4); Lymphocytes % (auto) 28.1 %; Mean Corpuscular Hgb Conc 31.6 g/dL (32-36); Mean Corpuscular Volume 89.8 fL (80-100); Mean Platelet Volume 10.4 fL (7.4-10.4); Monocytes # (auto) 0.47 K/uL (0.11-0.59); Monocytes % (auto) 7.1 %; Neutrophils # (auto) 4.02 K/uL (1.4-6.5); Platelet Count 177 K/uL (130-400); RDW Coefficient of Variation 14.3 % (11.5-14.5); RDW Standard Deviation 46.8 fL (36.4-46.3); Red Blood Count 4.23 M/uL (4.2-5.4); White Blood Count 6.59 K/uL (4.8-10.8)
[2018-07-24 07:24] LABS: BUN Creatinine Ratio 21.9 (10-20); Calcium 9.9 mg/dl (8.5-10.1); Creatinine Clr Calc Pharmacy 53.6 ml/min; Est GFR (African American) 31.9; Est GFR (Non-African American) 27.5; Potassium 4.2 mmol/L (3.5-5.1)
[2018-07-24] MEDS: MAGNESIUM OXIDE 400 MG TAB PO SCH (08:38)
[2018-07-24] MEDS: ASPIRIN 81 MG ECTAB PO SCH (08:38)
[2018-07-24] MEDS: FENOFIBRATE NANOCRYSTALLIZED 145 MG TABLET PO SCH (08:38)
[2018-07-24] MEDS: POTASSIUM CHLORIDE 10 MEQ TABCR PO SCH (08:38)
[2018-07-24] MEDS: ZINC SULFATE 220 MG CAPSULE PO SCH (08:38)
[2018-07-24] MEDS: ESCITALOPRAM OXALATE 20 MG TAB PO SCH (08:38)
[2018-07-24] MEDS: HEPARIN SOD 5,000 UNIT/0.5 ML VIAL SQ SCH ×2 (08:39→20:11)
[2018-07-24] MEDS: METOPROLOL SUCC 50MG EXT REL TAB PO SCH (08:39)
[2018-07-24] MEDS: LOSARTAN POTASSIUM 50 MG TAB PO SCH (08:39)
[2018-07-24] MEDS: BusPIRone 15 MG TAB PO SCH ×2 (08:40→20:10)
[2018-07-24] MEDS: INSULIN ASPART 100 UNITS/ML 3 ML PEN SC SCH ×4 (08:40→21:20)
[2018-07-24] MEDS ORDERED: FUROSEMIDE 40 MG in SYRINGE 0 ML IV SCH (09:00)
--- NOTE | 2018-07-24 10:51 | Hospitalist Progress Note ---
Date of Service July 24, 2018 Assessment & Plan (1) Hypoxia: Hypoxic respiratory failure secondary to diastolic congestive heart failure exacerbation and likely pulmonary hypertension due to non compliance with CPAP mask, deconditioning and obesity hypoventilation syndrome - 88% on RA in the ED - approximately 14 pounds gained by patient's estimation over 10 days - patient was to start a low carb diet in preparation for gastric bypass surgery coming up so was eating her favorite foods such as fried food before it started - high sodium and calorie intake. - nuclear stress test in august 2017 that was normal, showed grade I diastolic disfunction. - diuresed with 60 mg IV furosemide total yesterday, will hold for today after discussing with patient's grease maker head Dr. Kang as her kidney function worsened -hold home p.o. Lasix which is 20 mg twice daily - increase activity as much as possible - limited by chronic back pain -Communication order made to elevate her legs 4 times a day. Other ongoing medical problems: Diastolic CHF -Dobutamine stress echo earlier last year was negative -Nonischemic symptoms while here, follow -Continue home aspirin 81 mg daily Diabetes, type II -Hold home Trulicity -Insulin sliding scale -Basal insulin ordered at home dose 120 units nightly Hyperlipidemia -Continue home fenofibrate, atorvastatin 80 mg Hypothyroidism -Continue home levothyroxine 50 mcg daily Depression anxiety -Continue home Lexapro 20 mg daily, buspirone 30 mg twice daily, Ativan 1 mg p.o. a.m. and at bedtime as needed Hypertension -Blood pressure acceptable here -Continue losartan 100 mg p.o. daily, metoprolol succinate 100 mg p.o. daily. Edema, on diuretics, electrolytes -As above -continue home potassium chloride 10 mEq p.o. daily, magnesium oxide 400 mg daily Nena Winter MD Floor Polisher (2) CHF exacerbation: As above (3) Diabetes: DMII bsgs ac & hs, ss and lantus (4) Hypertension: continue home losartan, (5) Hyperlipemia: continue atorvastatin (6) Hypothyroidism: continue levothyroxine (7) Chronic low back pain: stable (8) Anxiety: continue buspirone (9) Obstructive sleep apnea on CPAP: Pt has documented severe TRUMAN and has a bipap mask that is nasal, because she does not tolerate full mask, she is claustrophobic. She has not been adherent with her mask because of fitting issues since 1 month ago. - connection between fluid retention and TRUMAN was explained by admitting physician and reinforced by myself. She verbalizes understanding and tried to wear her bipap last night but had difficulty tolerating due to noise overnight keeping her awake (10) Morbid obesity with BMI of 60.0-69.9, adult: Patient to have gastric bypass in the near future (11) CKD (chronic kidney disease) stage 3, GFR 30-59 ml/min: CKD stage III -BUN/creatinine 37/1.69 which is near baseline - increased to 1.95 today - discussed with Dr. Kang her grease maker head as above and will hold off on further diuresis today (12) DVT prophylaxis: heparin subq, scs PT/OT Subjective Ms. Arellano is still sob, wearing 4L NC. She reports being unable to tolerate her CPAP mask overnight because her roommate was having a procedure and she was unable to sleep. She spent most of the night in the chair. Review of Systems All systems reviewed & are unremarkable except as noted in HPI & below Physical Exam 2 Vital Signs (Past 24 Hours): Last Vital Signs Temp 37.3 C 07/24/18 08:00 Pulse 94 H 07/24/18 08:00 Resp 18 07/24/18 08:00 BP 164/75 H 07/24/18 08:00 Pulse Ox 92 07/24/18 08:00 Physical Exam: General: no distress Eyes: normal inspection, PERLL Respiratory: chest non tender, clear to auscultation, normal breath sounds, no respiratory distress, no accessory muscle use Cardiac: regular rate and rhythm, no rub or gallop, no murmur, no edema, no jvd GI/: active bowel sounds, no abd pain or tenderness, soft, non distended Extremities: normal range of motion, normal strength, non tender Neuro/Psych: alert and oriented x 3, normal mood and affect Skin: normal color, dry Results & Data Laboratory Results Abnormal lab results 07/23/18 07/23/18 07/23/18 Range/Units 11:21 16:23 20:29 MCHC (32-36) g/dL RDW Std Deviation (36.4-46.3) fL Immature Gran # (Auto) (0.00-0.02) K/uL BUN (7-18) mg/dl Creatinine (0.6-1.2) mg/dl BUN/Creatinine Ratio (10-20) Glucose (70-99) mg/dl POC Glucose 253 H 212 H 262 H (70-99) 07/24/18 07/24/18 07/24/18 Range/Units 06:29 06:29 07:28 MCHC 31.6 L (32-36) g/dL RDW Std Deviation 46.8 H (36.4-46.3) fL Immature Gran # (Auto) 0.04 H (0.00-0.02) K/uL BUN 43 H (7-18) mg/dl Creatinine 1.95 H (0.6-1.2) mg/dl BUN/Creatinine Ratio 21.9 H (10-20) Glucose 186 H (70-99) mg/dl POC Glucose 171 H (70-99) _ (1) CHF exacerbation Heart failure type: unspecified Qualified Code(s): I50.9 - Heart failure, unspecified
[2018-07-24] MEDS: ATORVASTATIN 40 MG TAB PO SCH (20:10)
[2018-07-24] MEDS: INSULIN GLARGINE 100 UNIT/ML VIAL SQ SCH (21:26)
[2018-07-24] MEDS ORDERED: TRAZODONE HCL 50 MG TAB PO PRN (22:41)
[2018-07-25] MEDS: LEVOTHYROXINE SODIUM 50 MCG TABLET PO SCH (05:47)
[2018-07-25 06:40] LABS: Basophils # (auto) 0.03 K/uL (0-0.2); Basophils % (auto) 0.5 %; Eosinophils # (auto) 0.24 K/uL (0-0.5); Eosinophils % (auto) 4.2 %; Hematocrit (blood only) 35.7 % (37-47); Hemoglobin 11.3 g/dL (12.0-16.0); Immature Granulocytes # (auto) 0.04 K/uL (0.00-0.02); Immature Granulocytes % (auto) 0.7 %; Lymphocytes # (auto) 1.85 K/uL (1.2-3.4); Lymphocytes % (auto) 32.6 %; Mean Corpuscular Hgb Conc 31.7 g/dL (32-36); Mean Platelet Volume 9.9 fL (7.4-10.4); Monocytes # (auto) 0.32 K/uL (0.11-0.59); Monocytes % (auto) 5.6 %; Neutrophils % (auto) 56.4 %; Platelet Count 156 K/uL (130-400); RDW Coefficient of Variation 14.1 % (11.5-14.5); RDW Standard Deviation 46.5 fL (36.4-46.3); Red Blood Count 4.01 M/uL (4.2-5.4); White Blood Count 5.68 K/uL (4.8-10.8)
[2018-07-25 07:12] LABS: BUN Creatinine Ratio 23.4 (10-20); Calcium 9.2 mg/dl (8.5-10.1); Creatinine Clr Calc Pharmacy 54.3 ml/min; Est GFR (African American) 32.9; Est GFR (Non-African American) 28.4; Potassium 4.3 mmol/L (3.5-5.1)
[2018-07-25] MEDS: METOPROLOL SUCC 50MG EXT REL TAB PO SCH (08:45)
[2018-07-25] MEDS: BusPIRone 15 MG TAB PO SCH (08:45)
[2018-07-25] MEDS: ESCITALOPRAM OXALATE 20 MG TAB PO SCH (08:45)
[2018-07-25] MEDS: LOSARTAN POTASSIUM 50 MG TAB PO SCH (08:45)
[2018-07-25] MEDS: ASPIRIN 81 MG ECTAB PO SCH (08:46)
[2018-07-25] MEDS: POTASSIUM CHLORIDE 10 MEQ TABCR PO SCH (08:46)
[2018-07-25] MEDS: ZINC SULFATE 220 MG CAPSULE PO SCH (08:46)
[2018-07-25] MEDS: INSULIN ASPART 100 UNITS/ML 3 ML PEN SC SCH ×4 (08:46→20:50)
[2018-07-25] MEDS: HEPARIN SOD 5,000 UNIT/0.5 ML VIAL SQ SCH ×2 (08:46→20:51)
[2018-07-25] MEDS: MAGNESIUM OXIDE 400 MG TAB PO SCH (08:46)
[2018-07-25] MEDS: FENOFIBRATE NANOCRYSTALLIZED 145 MG TABLET PO SCH (08:46)
--- NOTE | 2018-07-25 12:31 | Hospitalist Progress Note ---
Date of Service July 25, 2018 Assessment & Plan (1) Hypoxia: Hypoxic respiratory failure secondary to possible diastolic congestive heart failure exacerbation and likely pulmonary hypertension due to non compliance with CPAP mask, deconditioning and obesity hypoventilation syndrome - 88% on RA in the ED - approximately 14 pounds gained by patient's estimation over 10 days - patient was to start a low carb diet in preparation for gastric bypass surgery coming up so was eating her favorite foods such as fried food before it started - high sodium and calorie intake. - nuclear stress test in august 2017 that was normal, showed grade I diastolic disfunction. - diuresed with 60 mg IV furosemide total /, will hold after discussing with patient's software educator Dr. Kang as her kidney function worsened -hold home p.o. Lasix which is 20 mg twice daily - increase activity as much as possible - limited by chronic back pain - will place pain management consult -Communication order made to elevate her legs 4 times a day. (2) CHF exacerbation: Likely more a product of her primary hypertension than true CHF exacerbation. (3) Diabetes: DMII bsgs ac & hs, ss and lantus (4) Hypertension: continue home losartan, (5) Hyperlipemia: continue atorvastatin (6) Hypothyroidism: continue levothyroxine (7) Chronic low back pain: pain managment consult (8) Anxiety: -Continue home Lexapro 20 mg daily, buspirone 30 mg twice daily, Ativan 1 mg p.o. a.m. and at bedtime as needed. (9) Obstructive sleep apnea on CPAP: Pt has documented severe TRUMAN and has a bipap mask that is nasal, because she does not tolerate full mask, she is claustrophobic. She has not been adherent with her mask because of fitting issues since 1 month ago. - connection between fluid retention and TRUMAN was explained by admitting physician and reinforced by myself. She verbalizes understanding but continues to be unable to tolerate her bipap at night - Will increase nighttime trazadone to facilitate sleep while wearing bipap (10) Morbid obesity with BMI of 60.0-69.9, adult: Patient to have gastric bypass in the near future (11) CKD (chronic kidney disease) stage 3, GFR 30-59 ml/min: CKD stage III -BUN/creatinine 37/1.69 which is near baseline - increased to 1.9 - discussed with Dr. Kang her software educator as above and will hold off on further diuresis for now (12) DVT prophylaxis: heparin subq, scs PT/OT - patient is at baseline mobility Subjective Ms. Arellano is still sob, wearing 4L NC. She continues to be unable to tolerate her CPAP mask overnight. She continues to have back pain that limits her mobility. Physical Exam 2 Vital Signs (Past 24 Hours): Last Vital Signs Temp 37.3 C 07/25/18 11:33 Pulse 70 07/25/18 11:33 Resp 16 07/25/18 11:33 BP 148/68 H 07/25/18 11:33 Pulse Ox 97 07/25/18 11:33 Physical Exam: General: no distress Eyes: normal inspection, PERLL Respiratory: chest non tender, clear to auscultation, normal breath sounds, no respiratory distress, no accessory muscle use Cardiac: regular rate and rhythm, no rub or gallop, no murmur, no edema, no jvd GI/: active bowel sounds, no abd pain or tenderness, soft, non distended Extremities: normal range of motion, normal strength, non tender Neuro/Psych: alert and oriented x 3, normal mood and affect Skin: normal color, dry Results & Data Laboratory Results Abnormal lab results 07/24/18 07/24/18 07/25/18 Range/Units 16:11 20:43 06:26 RBC 4.01 L (4.2-5.4) M/uL Hgb 11.3 L (12.0-16.0) g/dL Hct 35.7 L (37-47) % MCHC 31.7 L (32-36) g/dL RDW Std Deviation 46.5 H (36.4-46.3) fL Immature Gran # (Auto) 0.04 H (0.00-0.02) K/uL BUN (7-18) mg/dl Creatinine (0.6-1.2) mg/dl BUN/Creatinine Ratio (10-20) Glucose (70-99) mg/dl POC Glucose 215 H 195 H (70-99) 07/25/18 07/25/18 07/25/18 Range/Units 06:26 07:29 11:11 RBC (4.2-5.4) M/uL Hgb (12.0-16.0) g/dL Hct (37-47) % MCHC (32-36) g/dL RDW Std Deviation (36.4-46.3) fL Immature Gran # (Auto) (0.00-0.02) K/uL BUN 44 H (7-18) mg/dl Creatinine 1.90 H (0.6-1.2) mg/dl BUN/Creatinine Ratio 23.4 H (10-20) Glucose 173 H (70-99) mg/dl POC Glucose 180 H 218 H (70-99) _ (1) CHF exacerbation Heart failure type: unspecified Qualified Code(s): I50.9 - Heart failure, unspecified
--- NOTE | 2018-07-25 13:55 | Pain Management Consultation ---
Date of Consultation July 25, 2018 Assessment & Plan (1) Chronic low back pain: 1. Patient has chronic low back pain complaints with no acute complaints at this time. She is not on chronic opiate therapy. The patient is followed by Gaby shah in the outpatient setting. She has morbid obesity and is planned for gastric bypass surgery in August. She has previously failed interventional treatment. There is no utility for any further interventional pain management techniques upon this admission. She may continue with Tylenol for as needed breakthrough pain. She will follow-up with Dr. Clement upon discharge and potentially undergo further evaluation for surgical intervention of her lumbar spine once gastric bypass and weight loss has been completed. Present on Admission?: Yes (2) Morbid obesity with BMI of 60.0-69.9, adult: (3) CHF exacerbation: Heart failure type: unspecified Qualified Code(s): I50.9 - Heart failure, unspecified Present on Admission?: Yes (4) CKD (chronic kidney disease) stage 3, GFR 30-59 ml/min: Present on Admission?: Yes History of Present Illness Reason for Consultation: Chronic Low Back Pain Requesting Physician: Latanya PRADO Attending Physician: Jevon Appiah MD History of Present Illness Mrs. Arellano is a morbidly obese 57 year old white female who has chronic low back pain x many years. No acute pain issues at this time. Pain is localized to the lumbosacral and gluteal area without a radicular component. She reports minimal pain in the sitting and supine positions. Pain escalates with standing , ambulating and ADL's. She reports limitations with ADL's secondary to progressive increase in lumbosacral pain with ambulation. Sitting alleviates pain quickly. Deep aching characteristic ranging between a 0-8/10. Patient is followed by Dr. Clement in [place] with [facility] and has had multiple interventional treatments without relief. Patient underwent discogram last summer and surgical evaluation in [place]. Surgery was discussed, but deferred secondary to her obesity. Her plan is to reconsider surgery after gastric bypass/weight loss. Patient denies radicular pain, leg weaknesses, footdrop, falling episodes, bowel or bladder incontinence or saddle anesthesias. The patient has no further constitutional complaints at this time. Plan of care discussed with Dr. Antoinette Jung. Pain Assessment Full Body Front + Back: 2 1. [facility] Combined Pain Scale: 6-Mod to Severe - Significant limitations of ADLs. Hard to do anything Pain scale - at its best (0-10): 0 Pain scale - at its worst (0-10): 8 Allergies Allergy/AdvReac Type Severity Reaction Status Date / Time promethazine Allergy Unknown BROKEN Verified 07/22/18 23:52 CAPILLARIES FACE Home Medications Home Medications Medication Instructions Recorded Confirmed Type aspirin 81 mg PO DAILY 07/22/18 07/22/18 History atorvastatin 80 mg PO HS 07/22/18 07/22/18 History buspirone 30 mg PO BID 07/22/18 07/22/18 History dulaglutide [Trulicity] 1.5 mg/ml SUBCUT WK 07/22/18 07/22/18 History ergocalciferol (vitamin D2) 50,000 unit PO DIRECTED 07/22/18 07/22/18 History [Vitamin D2] fenofibrate nanocrystallized 145 mg PO DAILY 07/22/18 07/22/18 History furosemide [Lasix] 20 mg PO DAILY 07/22/18 07/22/18 History escitalopram oxalate [Lexapro] 20 mg PO DAILY 07/23/18 07/23/18 History insulin glargine [Basaglar KwikPen 120 unit SUBCUT HS 07/23/18 07/23/18 History U-100 Insulin] levothyroxine 50 mcg PO DAILY 07/23/18 07/23/18 History lorazepam [Ativan] 1 mg PO AMHS 07/23/18 07/23/18 History losartan 100 mg PO DAILY 07/23/18 07/23/18 History magnesium oxide 400 mg PO DAILY 07/23/18 07/23/18 History metoprolol succinate 100 mg PO DAILY 07/23/18 07/23/18 History potassium chloride 10 meq PO DAILY 07/23/18 07/23/18 History trazodone 50 mg PO HS PRN MDD 100 07/23/18 07/23/18 History zinc gluconate 100 mg PO DAILY 07/23/18 07/23/18 History Patient History Medical History CKD (chronic kidney disease) stage 3, GFR 30-59 ml/min (Chronic) Hypoxia (Chronic) Morbid obesity with BMI of 60.0-69.9, adult (Chronic) Obstructive sleep apnea on CPAP (Chronic) Diabetes (Chronic) Hypertension (Chronic) Hyperlipemia (Chronic) Hypothyroidism (Chronic) Chronic low back pain (Chronic) Depression (Chronic) Anxiety (Chronic) Avascular necrosis of head of humerus Surgical History Hx of cholecystectomy (Resolved) Social History marital status: Single Current Living Situation: Spouse Other Information That Helps Us Care for You: No Feels Safe at Home: Yes Safety Concerns: Feels Safe At This Time Smoking Status: Never smoker Hx Alcohol Use: No Hx Substance Use: No Beliefs That Will Affect Care: None Communication Ability: Effective Review of Systems Constitutional: Negative for fever, chills, sweats Eyes: Negative for eye pain, photophobia, drainage Ear, nose, mouth, throat: Negative for ear pain, nasal congestion, mouth lesions , change in voice Respiratory: Negative for wheezing, sputum production Cardiovascular: Negative for chest pain, palpitations, calf pain Gastrointestinal: Negative for abdominal pain, belching, bloating Genitourinary: Negative for dysuria, urinary incontinence, urinary urgency Musculoskeletal: Negative for deformities Integumentary: Negative for nail changes, skin yellowing, pruritus Neurological: Negative for abnormal speech, seizure type activity Physical Exam 2 Vital Signs (Past 24 Hours): Last Vital Signs Temp 37.3 C 07/25/18 11:33 Pulse 70 07/25/18 11:33 Resp 16 07/25/18 11:33 BP 148/68 H 07/25/18 11:33 Pulse Ox 97 07/25/18 11:33 Physical Exam: General: Patient lying quietly upon entering the room in no acute distress. Patient is morbidly obese. Speech and thought process appropriate. Mood and affect appropriate. Cognition intact Head: Normal cephalic atraumatic Neck: Supple without adenopathy. Abdomen: Protuberant. Soft and nondistended. No organomegaly. Back/spine: Patient was able to logroll towards her left side without limitation. No need for assistance. Complete loss of lordosis. Nontender over the midline. No focal facet joint tenderness provocative testing. Moderately tender over the SI joint location to direct palpation bilaterally. Nontender in the paravertebral, quadratus lumborum or gluteal musculature bilaterally. Patient is moderately tender over the ischial bursa bilaterally. Limited range of motion in all planes. Lower extremities: Patient tender over the greater trochanter bilaterally. Negative SLR bilaterally. Slight increase in gluteal pain. Strength testing 5/ 5 with dorsiflexion, plantar flexion and knee flexion/extension. No evidence of pitting edema in the lower extremity's. Sensation was intact without focal deficit. Neurologic: Cranial nerves grossly intact. Ambulatory function not witnessed. Results & Data Diagnostic Findings None available for review.
[2018-07-25] MEDS ORDERED: ACETAMINOPHEN 500 MG TAB PO SCH (14:00)
[2018-07-25] MEDS: ACETAMINOPHEN 500 MG TAB PO SCH ×2 (14:38→22:41)
[2018-07-25] MEDS: ATORVASTATIN 40 MG TAB PO SCH (20:41)
[2018-07-25] MEDS: INSULIN GLARGINE 100 UNIT/ML VIAL SQ SCH (20:41)
[2018-07-25] MEDS ORDERED: TRAZODONE HCL 100 MG TAB PO SCH (21:00)
[2018-07-26] MEDS: LEVOTHYROXINE SODIUM 50 MCG TABLET PO SCH (06:30)
[2018-07-26] MEDS: ACETAMINOPHEN 500 MG TAB PO SCH ×2 (06:30→13:15)
[2018-07-26 07:12] LABS: Basophils # (auto) 0.04 K/uL (0-0.2); Basophils % (auto) 0.7 %; Eosinophils % (auto) 3.6 %; Hematocrit (blood only) 35.4 % (37-47); Hemoglobin 11.1 g/dL (12.0-16.0); Immature Granulocytes # (auto) 0.02 K/uL (0.00-0.02); Immature Granulocytes % (auto) 0.4 %; Lymphocytes % (auto) 37.9 %; Mean Corpuscular Hgb Conc 31.4 g/dL (32-36); Mean Corpuscular Volume 89.8 fL (80-100); Mean Platelet Volume 10.4 fL (7.4-10.4); Monocytes # (auto) 0.35 K/uL (0.11-0.59); Monocytes % (auto) 6.3 %; Neutrophils # (auto) 2.83 K/uL (1.4-6.5); Neutrophils % (auto) 51.1 %; Platelet Count 159 K/uL (130-400); RDW Coefficient of Variation 14.2 % (11.5-14.5); RDW Standard Deviation 46.9 fL (36.4-46.3); Red Blood Count 3.94 M/uL (4.2-5.4); White Blood Count 5.54 K/uL (4.8-10.8)
[2018-07-26] MEDS: METOPROLOL SUCC 50MG EXT REL TAB PO SCH (07:41)
[2018-07-26] MEDS: ESCITALOPRAM OXALATE 20 MG TAB PO SCH (07:41)
[2018-07-26] MEDS: ZINC SULFATE 220 MG CAPSULE PO SCH (07:41)
[2018-07-26] MEDS: MAGNESIUM OXIDE 400 MG TAB PO SCH (07:41)
[2018-07-26] MEDS: ASPIRIN 81 MG ECTAB PO SCH (07:42)
[2018-07-26] MEDS: LOSARTAN POTASSIUM 50 MG TAB PO SCH (07:42)
[2018-07-26] MEDS: FENOFIBRATE NANOCRYSTALLIZED 145 MG TABLET PO SCH (07:42)
[2018-07-26] MEDS: HEPARIN SOD 5,000 UNIT/0.5 ML VIAL SQ SCH (07:42)
[2018-07-26] MEDS: POTASSIUM CHLORIDE 10 MEQ TABCR PO SCH (07:42)
[2018-07-26 07:47] LABS: BUN Creatinine Ratio 23.5 (10-20); Calcium 8.9 mg/dl (8.5-10.1); Creatinine Clr Calc Pharmacy 47.8 ml/min; Est GFR (African American) 28.1; Est GFR (Non-African American) 24.3; Potassium 4.2 mmol/L (3.5-5.1)
[2018-07-26] MEDS: INSULIN ASPART 100 UNITS/ML 3 ML PEN SC SCH ×2 (08:55→13:15)
--- NOTE | 2018-07-26 13:57 | Discharge Summary ---
Date of Service July 26, 2018 Admission HPI Per Admitting Provider [id number] here for dyspnea on exertion that began yesterday. Pt states she went up her stairs in her home which she rarely does and became short of breath. Thought at first that perhaps she was holding her breath and that is why she felt short of breath, but then she took some deep breaths and felt pressure. She states that then she tried an ativan, because she will sometimes get short of breath due to anxiety attacks. That did not help her, so she called up to her to take her to the emergency room. Earlier in the day she had called her log sawyer's office, who is the one prescribing her lasix, complaining of shortness of breath, and she was advised to take an additional dose of her lasix. She was unable to do so because was already on her way here. Dry weight: 381-383. Today is 395. Patient was hospitalized 6 months ago due to similar complaints, started on Lasix then. Since then has seen her log sawyer and increase Lasix to twice a day. Pt had a nuclear stress test in august 2017 that was normal, showed grade I diastolic disfunction. Pt has documented TRUMAN and has a CPAP mask that is nasal, because she does not tolerate full mask, she is claustrophobic. Of note , she has not been adherent with her mask because of fitting issues since 1 month ago. She wonders if this has anything to do with her fluid retention. Of note patient denies change in diet, no increased sodium. Drinks about 52 ounces of water or unsweetened ice tea per day. Denies fevers chills or myalgias. Endorses dry cough. Endorses heavy feeling in her chest which is now improved with Lasix and oxygen. Endorses her legs feeling very tight. Denies history of prolonged immobility or travel, although is quite sedentary at baseline as she only walks from her chair to the bathroom or to the bedroom, uses motorized chair when she is out of her home. Does not elevate her legs regularly. Denies chest pain. PMH 1. Diastolic CHF 2. Morbid obesity 3. Severe obstructive sleep apnea, nonadherent with CPAP 4. Edema 5. Hypertension 6. Hyperlipidemia 7. Type 2 diabetes 8. Chronic back pain 9. Depression and anxiety 10. Awaiting bariatric surgery PSH 1. Left shoulder arthroplasty SH: Denies T/E/D. Lives with Hernando. Principal Diagnosis Hypoxia Discharge Exam Constitutional WD/WN, vitals as above Respiratory normal respiratory effort, lungs clear to auscultation Cardiovascular RRR, no murmur, no edema Gastrointestinal (Abdomen) normal bowel sounds, soft, nontender, no hepatosplenomegaly Musculoskeletal no cyanosis or clubbing, extremities motor strength 5/5 Skin no rashes, warm and dry Psychiatric A+Ox3, euthymic affect Discharge Data Allergies Allergy/AdvReac Type Severity Reaction Status Date / Time promethazine Allergy Unknown BROKEN Verified 07/22/18 23:52 CAPILLARIES FACE Consultations 07/23/18 00:14 ED Decision to Admit Stat 07/23/18 03:44 Consult Case Management - Discharge Planning Routine 07/25/18 12:51 Consult Pain Management Routine 07/26/18 13:50 Consult [facility] senior security engineer Routine Hospital Course (1) Hypoxia: Hypoxic respiratory failure secondary to likely pulmonary hypertension due to non compliance with CPAP mask, deconditioning and obesity hypoventilation syndrome - 88% on RA in the ED - approximately 14 pounds gained by patient's estimation over 10 days - patient was to start a low carb diet in preparation for gastric bypass surgery coming up so was eating her favorite foods such as fried food before it started - high sodium and calorie intake. - nuclear stress test in august 2017 that was normal, showed grade I diastolic disfunction. Repeat echo 07/25 did not show heart failure - diuresed with 60 mg IV furosemide total 07/23, held after discussing with patient's log sawyer Dr. Kang as her kidney function worsened -hold home p.o. Lasix which is 20 mg twice daily - increase activity as much as possible - limited by chronic back pain - pain management consulted - continue Tylenol 1000 mg tid - elevate her legs 4 times a day. - Low probability of PE calculated on Wells Score so given patient's inability to lay flat or receive IV contrast will defer on imaging for PE. - 2 step oxygen test did not show any need for oxygen (2) CHF exacerbation: Likely more a product of her primary hypertension than true CHF exacerbation. Repeat echo did not show heart failure. (3) Obstructive sleep apnea on CPAP: Pt has documented severe TRUMAN and has a bipap mask that is nasal, because she does not tolerate full mask, she is claustrophobic. She has not been adherent with her mask because of fitting issues since 1 month ago. - connection between fluid retention and TRUMAN was explained by admitting physician and reinforced by myself. She verbalizes understanding but continues to be unable to tolerate her bipap at night - patient has been unable to wear her bipap for more than an hour or so each night here in the hospital (4) Morbid obesity with BMI of 60.0-69.9, adult: Patient to have gastric bypass in the near future (5) CKD (chronic kidney disease) stage 3, GFR 30-59 ml/min: CKD stage III -BUN/creatinine continue to increase, today 51 and 2.16 - discussed with Dr. Kang her log sawyer and will hold off on further diuresis and hold home diuretic, repeat blood work outpatient on Saturday and arrange follow up with Dr. Kang this coming week. (6) Diabetes: DMII bsgs ac & hs, ss and lantus (7) Hypertension: continue home losartan, (8) Hyperlipemia: continue atorvastatin (9) Hypothyroidism: continue levothyroxine (10) Chronic low back pain: pain management consult (11) Anxiety: -Continue home Lexapro 20 mg daily, buspirone 30 mg twice daily, Ativan 1 mg p.o. a.m. and at bedtime as needed. (12) DVT prophylaxis: PT/OT - patient is at baseline mobility Total Time Total Time Spent Total Time Spent (In Minutes): greater than 30 minutes Discharge Plan Discharge Items Patient Disposition: Home - Self-Care Reason For Visit: HYPOXIA Discharge Diagnosis: Hypoxia Discharge Goals: Decrease discomfort Activity: Resume your previous activity Non-emergency contact: Primary Care Provider Call non-emergency contact if: you have any medication questions and your symptoms worsen Follow-up/Referrals: William Lewis MD [Primary Care Provider] - 07/30/18 11:40 am (Please, follow up with Dr. Howell on SaturdayJuly 30 at 11:40 am. *If you need to change this appointment, call the office at [phone].) Diet: Carb Consistent or DM2 Other Ambulatory Orders: Basic Metabolic Panel (Routine) Timeframe: 3 Days Location: Determined by Patient Ordered By: Latanya Haro Addtl Provider Instructions: Please follow up with your primary care provider and Dr. Kang this coming week. You should have your blood work done on Saturday. You should hold your furosemide until after your blood work then check with Dr. Kang on timing of restarting it. You will need to establish with a cover stitch machine operator. Our nurse navigator will call you with your appointments for all three providers, you should hear from her by Saturday. Please continue to use your bipap at night. Prescriptions: Continue aspirin 81 mg Tablet,Delayed Release (Dr/Ec) 81 mg PO DAILY RF: 0 atorvastatin 80 mg Tablet 80 mg PO HS RF: 0 buspirone 30 mg Tablet 30 mg PO BID RF: 0 ergocalciferol (vitamin D2) [Vitamin D2] 50,000 unit Capsule 50,000 unit PO DIRECTED RF: 0 dulaglutide [Trulicity] 1.5 mg/0.5 mL Pen Injector 1.5 mg/ml subcut WK RF: 0 fenofibrate nanocrystallized 145 mg Tablet 145 mg PO DAILY RF: 0 insulin glargine [Basaglar KwikPen U-100 Insulin] 100 unit/mL (3 mL) Insulin Pen 120 unit SUBCUT HS RF: 0 levothyroxine 50 mcg Tablet 50 mcg PO DAILY RF: 0 lorazepam [Ativan] 1 mg Tablet 1 mg PO AMHS RF: 0 losartan 100 mg Tablet 100 mg PO DAILY RF: 0 magnesium oxide 400 mg Capsule 400 mg PO DAILY RF: 0 metoprolol succinate 100 mg Tablet Extended Release 24 Hr 100 mg PO DAILY RF: 0 zinc gluconate 100 mg Tablet 100 mg PO DAILY RF: 0 escitalopram oxalate [Lexapro] 20 mg Tablet 20 mg PO DAILY RF: 0 potassium chloride 10 mEq Tablet Extended Release 10 meq PO DAILY RF: 0 trazodone 50 mg Tablet 50 mg PO HS MDD 100 PRN (Reason: Insomnia) RF: 0 Discontinued furosemide [Lasix] 20 mg Tablet 20 mg PO DAILY RF: 0 Stand-Alone Forms: On License Of [facility] Discharge Orders: Discharge Order (Routine); Ordered 07/26/18 Ordered By: Latanya Haro Admission Data Admit Date/Time: 07/23/18 01:53 Attending Provider: Jevon Appiah Admit Provider: Nena Winter Primary Care Provider: William Lewis V. Other Providers: Bill Hancock ; Antoinette Jung Service: Telemetry Other Interventions: Discharge Summary Assessment (RN) Last Done: 07/26/18 14:47 DC Date/Time DO NOT enter until pt leaves facility: 07/26/18 16:03
--- NOTE | 2018-07-29 15:24 | Coding Query ---
CONGESTIVE HEART FAILURE To Promote full compliance with coding requirements relating to patient care, physician participation is requested in all cases of insecticide sprayer uncertainty. Please assist us with the following questions. A diagnosis of Congestive Heart Failure is documented in the patient's medical record. To accurately code this diagnosis and to compare patient severity, we ask that you specify the type of heart failure by placing an X within the parenthesis (x). SYSTOLIC HEART FAILURE ( ) Acute ( ) Chronic ( ) Acute on Chronic ( ) Rheumatic ( ) Unknown DIASTOLIC HEART FAILURE ( ) Acute ( ) Chronic ( xxx) Acute on Chronic ( ) Rheumatic ( ) Unknown COMBINED SYSTOLIC AND DIASTOLIC HEART FAILURE ( ) Acute ( ) Chronic ( ) Acute on Chronic ( ) Rheumatic ( ) Unknown Was the CHF Present On Admission? Please check the appropriate box: ( ) Present on Admission ( ) Not Present On Admission ( ) Clinically undetermined Thank you Edilberto Boykin [facility]
== END 2018-07-26 16:03 | disposition home or self-care (01) | DRG 314 ==
LOC: ED 21:55 → SUATTDRO 07-23 01:53 → 2S 07-23 01:53

== ENCOUNTER 2018-08-06 22:48 | Inpatient (IN) ==
[2018-08-07 00:26] LABS: Basophils # (auto) 0.03 K/uL (0-0.2); Basophils % (auto) 0.3 %; Eosinophils # (auto) 0.11 K/uL (0-0.5); Eosinophils % (auto) 1.2 %; Hematocrit (blood only) 40.2 % (37-47); Hemoglobin 12.5 g/dL (12.0-16.0); Immature Granulocytes # (auto) 0.05 K/uL (0.00-0.02); Immature Granulocytes % (auto) 0.6 %; Lymphocytes # (auto) 0.83 K/uL (1.2-3.4); Lymphocytes % (auto) 9.3 %; Mean Corpuscular Hgb Conc 31.1 g/dL (32-36); Mean Platelet Volume 10.5 fL (7.4-10.4); Monocytes # (auto) 0.65 K/uL (0.11-0.59); Monocytes % (auto) 7.3 %; Neutrophils # (auto) 7.25 K/uL (1.4-6.5); Neutrophils % (auto) 81.3 %; Platelet Count 217 K/uL (130-400); RDW Coefficient of Variation 14.3 % (11.5-14.5); RDW Standard Deviation 47.6 fL (36.4-46.3); Red Blood Count 4.42 M/uL (4.2-5.4); White Blood Count 8.92 K/uL (4.8-10.8)
[2018-08-07 00:42] LABS: Partial Thromboplastin Ratio 0.8; Partial Thromboplastin Time 21.9 Seconds (21.0-31.0); Prothrombin Time 10.6 Seconds (9.0-12.0)
[2018-08-07 00:43] LABS: Alanine Aminotransferase 31 U/L (12-78); Albumin Level 3.3 gm/dl (3.4-5.0); Aspartate Aminotransferase 31 U/L (15-37); BUN Creatinine Ratio 18.5 (10-20); Blood Urea Nitrogen 32 mg/dl (7-18); Calcium 8.9 mg/dl (8.5-10.1); Carbon Dioxide 32 mmol/L (21-32); Chloride 107 mmol/L (98-107); Creatinine Clr Calc Pharmacy 61.5 ml/min; Est GFR (African American) 37.3; Est GFR (Non-African American) 32.2; Glucose 145 mg/dl (70-99); Potassium 4.2 mmol/L (3.5-5.1); Sodium 142 mmol/L (136-145)
[2018-08-07 00:46] LABS: Albumin Globulin Ratio 0.8 (0.9-2); Alkaline Phosphatase 69 U/L (45-117); Bilirubin,Total 0.4 mg/dl (0.2-1); Total Protein 7.3 gm/dl (6.4-8.2)
[2018-08-07 01:01] LABS: D Dimer 860 ug/L FEU (0-500)
[2018-08-07] MEDS ORDERED: ACETAMINOPHEN 500 MG TAB PO STA (01:33)
[2018-08-07] MEDS ORDERED: LORazepam 1 MG/2 ML VIAL IV STA (01:33)
[2018-08-07 01:35] LABS: NT Pro B Type Natriuretic Pept 1432 pg/ml (0-900); Troponin I < 0.015 ng/ml (0-0.045)
--- NOTE | 2018-08-07 03:36 | History & Physical Report ---
Date of Service August 07, 2018 Assessment & Plan (1) Hypoxia: On a chronic basis associated with obesity hypoventilation syndrome and sleep apnea. In addition, this visit, is associated with an infectious process. Present on Admission?: Yes (2) Obesity hypoventilation syndrome: Obesity hypoventilation syndrome/sleep apnea-- Patient has had additional weight gain since last visit. She reports that she was scheduled for gastric bypass surgery to be done on August 18 or , but has been rescheduled due to illness. Present on Admission?: Yes (3) Pneumonia: Patient has a moist sounding intermittently productive cough, and chest x- ray compared to previous suggests a possible right middle lobe infiltrate. Xopenex Atrovent nebulizer every 6 hours while awake. Pulmicort Respules 0.5 mg inhaled twice daily. Place on Zosyn 4.5 g IV every 12 hours. Present on Admission?: Yes (4) CKD (chronic kidney disease) stage 3, GFR 30-59 ml/min: Creatinine 1.71 upon admission, is within her range of 1.45-2.16. She has intermittently been on Lasix in the past for fluid retention, but I do not see any need for Lasix at this time. Present on Admission?: Yes (5) Morbid obesity with BMI of 60.0-69.9, adult: She has gained approximately 7 kg since last admission on 07/23/18 Present on Admission?: Yes (6) Obstructive sleep apnea on CPAP: Patient will use her home BiPAP unit for bedtime. Present on Admission?: Yes (7) Anxiety and depression: Continue buspirone, Lexapro, Ativan and trazodone. Present on Admission?: Yes (8) Diabetes: Continue insulin glargine, but decreased from 150-130 units units subcu at bedtime. Placed on Accu-Cheks before meals and at bedtime with NovoLog coverage per scale Present on Admission?: Yes (9) Hyperlipemia: Continue atorvastatin 80 mg at bedtime Present on Admission?: Yes (10) Hypothyroidism: Continue levothyroxine sodium 50 mcg daily Present on Admission?: Yes History of Present Illness Chief Complaint: The patient presents to the emergency department with worsening shortness of breath at rest, dyspnea on exertion and productive cough over the past several days. Primary Care Provider: William Lewis MD The patient is a 57-year-old female most recently admitted to this hospital from 07/23-07/26/18 for hypoxia associated with sleep apnea, obesity hypoventilation syndrome and fluid retention. The Symptoms that she presents with this visit are somewhat different in that she does have a productive sounding cough. She reports that she was scheduled for gastric bypass in early August, which has been canceled and needed to be rescheduled associated with her ongoing respiratory difficulties. Allergies Allergy/AdvReac Type Severity Reaction Status Date / Time promethazine Allergy Unknown BROKEN Verified 07/22/18 23:52 CAPILLARIES FACE Home Medications Home Medications Medication Instructions Recorded Confirmed Type aspirin 81 mg PO DAILY 07/22/18 08/07/18 History atorvastatin 80 mg PO HS 07/22/18 08/07/18 History buspirone 30 mg PO BID 07/22/18 08/07/18 History dulaglutide [Trulicity] 1.5 mg/ml SUBCUT WK 07/22/18 08/07/18 History ergocalciferol (vitamin D2) 50,000 unit PO DIRECTED 07/22/18 08/07/18 History [Vitamin D2] fenofibrate nanocrystallized 145 mg PO DAILY 07/22/18 08/07/18 History escitalopram oxalate [Lexapro] 20 mg PO DAILY 07/23/18 08/07/18 History insulin glargine [Basaglar KwikPen 150 unit SUBCUT HS 07/23/18 08/07/18 History U-100 Insulin] levothyroxine 50 mcg PO DAILY 07/23/18 08/07/18 History lorazepam [Ativan] 1 mg PO AMHS 07/23/18 08/07/18 History losartan 100 mg PO DAILY 07/23/18 08/07/18 History magnesium oxide 400 mg PO DAILY 07/23/18 08/07/18 History metoprolol succinate 100 mg PO DAILY 07/23/18 08/07/18 History potassium chloride 10 meq PO DAILY 07/23/18 08/07/18 History trazodone 50 mg PO HS PRN MDD 100 07/23/18 08/07/18 History zinc gluconate 100 mg PO HS 07/23/18 08/07/18 History insulin lispro [Humalog KwikPen 0 units SUBCUT UD 08/07/18 08/07/18 History Insulin] Past Med/Surg History Medical History CKD (chronic kidney disease) stage 3, GFR 30-59 ml/min (Chronic) Hypoxia (Chronic) Morbid obesity with BMI of 60.0-69.9, adult (Chronic) Obstructive sleep apnea on CPAP (Chronic) Diabetes (Chronic) Hypertension (Chronic) Hyperlipemia (Chronic) Hypothyroidism (Chronic) Chronic low back pain (Chronic) Depression (Chronic) Anxiety (Chronic) Avascular necrosis of head of humerus Surgical History Hx of cholecystectomy (Resolved) Social History marital status: Single Current Living Situation: Spouse Feels Safe at Home: Yes Smoking Status: Never smoker Hx Alcohol Use: No Hx Substance Use: No Beliefs That Will Affect Care: None Preferred Language: Urdu Review of Systems The patient denies chest pain, palpitations, sore throat, fevers, chills, sweats , nausea, vomiting, diarrhea, constipation, abdominal pain, pelvic pain, blood in urine or stool, dysuria, urinary frequency or urgency, lightheadedness, dizziness, headache, memory loss, loss of consciousness, rash, abnormal bruising or bleeding, imbalance, focal or generalized weakness, numbness or tingling in arms or legs, generalized arthralgias or myalgias, back or neck pain , or night sweats. The review of systems is otherwise negative other than for that already noted above, and at least 10 systems have been reviewed. Physical Exam 2 Vital Signs (Past 24 Hours): Last Vital Signs Temp 37.8 C H 08/06/18 22:51 Pulse 80 08/07/18 01:03 Resp 25 H 08/07/18 01:03 BP 199/90 H 08/07/18 01:03 Pulse Ox 95 08/07/18 01:03 Physical Exam: The patient is awake, alert and oriented 3, normocephalic and atraumatic, lying in bed and in no acute distress. HEENT--PERRL, EOMI, mucous membranes and oropharynx normal. Neck--supple. No JVD. No bruits. Thyroid normal, trachea midline, no adenopathy. Heart--normal S1 and S2. No murmurs, rubs or gallops. Lungs--decreased breath sounds throughout. Abdomen--normal bowel sounds and soft. Nontender. Nondistended. Morbidly obese. Extremities--no cyanosis or clubbing. Trace bilateral pretibial pitting edema. There are good distal pulses b/l. Dermatologic--normal skin turgor, normal color, no abnormal lymph nodes, no rash. Neurologic--cranial nerves II through XII grossly intact. Rheumatologic--normal range of motion. Psychiatric--normal affect. Results & Data Laboratory Results Laboratory Results WBC 8.92 K/uL (4.8-10.8) 08/07/18 00:17 RBC 4.42 M/uL (4.2-5.4) 08/07/18 00:17 Hgb 12.5 g/dL (12.0-16.0) 08/07/18 00:17 Hct 40.2 % (37-47) 08/07/18 00:17 MCV 91.0 fL (80-100) 08/07/18 00:17 MCH 28.3 pg (25-34) 08/07/18 00:17 MCHC 31.1 g/dL (32-36) L 08/07/18 00:17 RDW Std Deviation 47.6 fL (36.4-46.3) H 08/07/18 00:17 RDW Coeff of Chantal 14.3 % (11.5-14.5) 08/07/18 00:17 Plt Count 217 K/uL (130-400) 08/07/18 00:17 MPV 10.5 fL (7.4-10.4) H 08/07/18 00:17 Immature Gran % (Auto) 0.6 % 08/07/18 00:17 Neut % (Auto) 81.3 % 08/07/18 00:17 Lymph % (Auto) 9.3 % 08/07/18 00:17 [place] % (Auto) 7.3 % 08/07/18 00:17 Eos % (Auto) 1.2 % 08/07/18 00:17 Baso % (Auto) 0.3 % 08/07/18 00:17 Immature Gran # (Auto) 0.05 K/uL (0.00-0.02) H 08/07/18 00:17 Neut # (Auto) 7.25 K/uL (1.4-6.5) H 08/07/18 00:17 Lymph # (Auto) 0.83 K/uL (1.2-3.4) L 08/07/18 00:17 [place] # (Auto) 0.65 K/uL (0.11-0.59) H 08/07/18 00:17 Eos # (Auto) 0.11 K/uL (0-0.5) 08/07/18 00:17 Baso # (Auto) 0.03 K/uL (0-0.2) 08/07/18 00:17 PT 10.6 Seconds (9.0-12.0) 08/07/18 00:17 INR 1.0 (0.9-1.1) 08/07/18 00:17 APTT 21.9 Seconds (21.0-31.0) 08/07/18 00:17 PTT Ratio 0.8 08/07/18 00:17 D-Dimer 860 ug/L FEU (0-500) H* 08/07/18 00:17 Sodium 142 mmol/L (136-145) 08/07/18 00:17 Potassium 4.2 mmol/L (3.5-5.1) 08/07/18 00:17 Chloride 107 mmol/L (98-107) 08/07/18 00:17 Carbon Dioxide 32 mmol/L (21-32) 08/07/18 00:17 Anion Gap 3.0 (3-11) 08/07/18 00:17 BUN 32 mg/dl (7-18) H 08/07/18 00:17 Creatinine 1.71 mg/dl (0.6-1.2) H 08/07/18 00:17 Est Cr Clr Drug Dosing 61.5 ml/min 08/07/18 00:17 Est GFR ( Amer) 37.3 08/07/18 00:17 Est GFR (Non-Af Amer) 32.2 08/07/18 00:17 BUN/Creatinine Ratio 18.5 (10-20) 08/07/18 00:17 Glucose 145 mg/dl (70-99) H 08/07/18 00:17 Lactate 1.8 mmol/L (0.4-2.0) 08/07/18 00:17 Calcium 8.9 mg/dl (8.5-10.1) 08/07/18 00:17 Total Bilirubin 0.4 mg/dl (0.2-1) 08/07/18 00:17 AST 31 U/L (15-37) 08/07/18 00:17 ALT 31 U/L (12-78) 08/07/18 00:17 Alkaline Phosphatase 69 U/L (45-117) 08/07/18 00:17 Troponin I < 0.015 ng/ml (0-0.045) 08/07/18 00:17 NT-Pro-B Natriuret Pep 1432 pg/ml (0-900) H 08/07/18 00:17 Total Protein 7.3 gm/dl (6.4-8.2) 08/07/18 00:17 Albumin 3.3 gm/dl (3.4-5.0) L 08/07/18 00:17 Globulin 4.0 gm/dl (2.5-4.0) 08/07/18 00:17 Albumin/Globulin Ratio 0.8 (0.9-2) L 08/07/18 00:17 Medications Administered Home Medications Medication Instructions Recorded Confirmed aspirin 81 mg PO DAILY 07/22/18 08/07/18 atorvastatin 80 mg PO HS 07/22/18 08/07/18 buspirone 30 mg PO BID 07/22/18 08/07/18 dulaglutide [Trulicity] 1.5 mg/ml SUBCUT WK 07/22/18 08/07/18 ergocalciferol (vitamin D2) 50,000 unit PO DIRECTED 07/22/18 08/07/18 [Vitamin D2] fenofibrate nanocrystallized 145 mg PO DAILY 07/22/18 08/07/18 escitalopram oxalate [Lexapro] 20 mg PO DAILY 07/23/18 08/07/18 insulin glargine [Basaglar KwikPen 150 unit SUBCUT HS 07/23/18 08/07/18 U-100 Insulin] levothyroxine 50 mcg PO DAILY 07/23/18 08/07/18 lorazepam [Ativan] 1 mg PO AMHS 07/23/18 08/07/18 losartan 100 mg PO DAILY 07/23/18 08/07/18 magnesium oxide 400 mg PO DAILY 07/23/18 08/07/18 metoprolol succinate 100 mg PO DAILY 07/23/18 08/07/18 potassium chloride 10 meq PO DAILY 07/23/18 08/07/18 trazodone 50 mg PO HS PRN MDD 100 07/23/18 08/07/18 zinc gluconate 100 mg PO HS 07/23/18 08/07/18 insulin lispro [Humalog KwikPen 0 units SUBCUT UD 08/07/18 08/07/18 Insulin] Code Status & VTE Plan Code Status Full code VTE Prophylaxis Plan VTE Prophylaxis will be ordered: Yes
[2018-08-07] MEDS ORDERED: GLUCOSE 40% GEL 15 GM TUBE PO PRN (04:21)
[2018-08-07] MEDS ORDERED: GLUCAGON FOR INJ 1 MG VIAL SQ PRN (04:21)
[2018-08-07] MEDS ORDERED: PIPERACILL/TAZOBAC CONSULT ACTIVE PRN (04:21)
[2018-08-07] MEDS ORDERED: MAGNESIUM HYDROXIDE SUSP 30 ML UDC PO PRN (04:21)
[2018-08-07] MEDS ORDERED: DEXTROSE 50% 50 ML SYRINGE IV PRN (04:21)
[2018-08-07] MEDS ORDERED: NITROGLYCERIN SL 0.4 MG/TAB TAB SL PRN (04:21)
[2018-08-07] MEDS ORDERED: ALUMINUM/MAGNESIUM SUSP 30 ML UDC PO PRN (04:21)
[2018-08-07] MEDS ORDERED: GLUCOSE 10 TABS/TUBE PO PRN (04:21)
[2018-08-07] MEDS ORDERED: PIPERACILLIN/TAZOBACTAM 4.5 GM/120 ML BAG IV SCH (04:30)
[2018-08-07] MEDS: ONDANSETRON INJ 2 MG/ML 2 ML VIAL IV PRN (06:06)
[2018-08-07] MEDS: ACETAMINOPHEN 325 MG TAB PO PRN ×4 (06:17→23:59)
[2018-08-07] MEDS: LEVOTHYROXINE SODIUM 50 MCG TABLET PO SCH (06:17)
[2018-08-07] MEDS: guaiFENesin SUGAR FREE 200 MG/10 ML UDC PO PRN ×3 (06:17→23:59)
--- NOTE | 2018-08-07 06:21 | Emergency Department Note ---
Entered by Lizbeth Garvey acting as a scribe for History of Present Illness General Chief complaint: Shortness of Breath/Dyspnea Stated complaint: SOB Time Seen by Provider: 08/06/18 23:03 Source: patient and family () Limitations: no limitations History of Present Illness Onset (ago): hour(s) (earlier today) Location: chest Severity: similar to prior episodes Pain Consistency: + other (worsening) Maximum Pain Intensity: 7 Quality: + other (SOB) Exacerbated By: + other (heat, exertion) Associated symptoms: + other (recent increase in anxiety attacks) The patient is a 57 year old female who presents to the Emergency Room with complaints of worsening SOB that she noticed earlier today. She reports that she was in the hospital 2 weeks ago for similar symptoms, but she states that the symptoms are worse today than they were then. The patient states that she was discharged with the diagnosis of hypoxia and CHF. She reports that she had a follow up yesterday morning, and the physician made adjustments to her BiPAP ( which she wears normally) and stressed the importance of using it. The patient states that she took Lasix for the first time since leaving the hospital at 1700 today. The patient complains that she had a low-grade fever of 100.1 earlier today. She notes that exertion and heat worsen the SOB. The patient states that her anxiety has worsened recently. Her , at bedside, notes that the patient has had an increase in anxiety attacks recently. He describes a recent panic attack, noting that she "got bullheaded" and did not want to be helped. The patient states that this episode was after difficulty breathing that "hit her like a ton of bricks." The patient reports that she takes Lexapro, Trazodone, and Lorazepam, which was recently increased, daily. Home Medications Home Medications Medication Instructions Recorded Confirmed Type aspirin 81 mg PO DAILY 07/22/18 08/07/18 History atorvastatin 80 mg PO HS 07/22/18 08/07/18 History buspirone 30 mg PO BID 07/22/18 08/07/18 History dulaglutide [Trulicity] 1.5 mg/ml SUBCUT WK 07/22/18 08/07/18 History ergocalciferol (vitamin D2) 50,000 unit PO DIRECTED 07/22/18 08/07/18 History [Vitamin D2] fenofibrate nanocrystallized 145 mg PO DAILY 07/22/18 08/07/18 History escitalopram oxalate [Lexapro] 20 mg PO DAILY 07/23/18 08/07/18 History insulin glargine [Basaglar KwikPen 150 unit SUBCUT HS 07/23/18 08/07/18 History U-100 Insulin] levothyroxine 50 mcg PO DAILY 07/23/18 08/07/18 History lorazepam [Ativan] 1 mg PO AMHS 07/23/18 08/07/18 History losartan 100 mg PO DAILY 07/23/18 08/07/18 History magnesium oxide 400 mg PO DAILY 07/23/18 08/07/18 History metoprolol succinate 100 mg PO DAILY 07/23/18 08/07/18 History potassium chloride 10 meq PO DAILY 07/23/18 08/07/18 History trazodone 50 mg PO HS PRN MDD 100 07/23/18 08/07/18 History zinc gluconate 100 mg PO HS 07/23/18 08/07/18 History insulin lispro [Humalog KwikPen 0 units SUBCUT UD 08/07/18 08/07/18 History Insulin] Allergies Allergy/AdvReac Type Severity Reaction Status Date / Time promethazine Allergy Unknown BROKEN Verified 07/22/18 23:52 CAPILLARIES FACE Past Med/Surg History Medical History CKD (chronic kidney disease) stage 3, GFR 30-59 ml/min (Chronic) Hypoxia (Chronic) Morbid obesity with BMI of 60.0-69.9, adult (Chronic) Obstructive sleep apnea on CPAP (Chronic) Diabetes (Chronic) Hypertension (Chronic) Hyperlipemia (Chronic) Hypothyroidism (Chronic) Chronic low back pain (Chronic) Depression (Chronic) Anxiety (Chronic) Avascular necrosis of head of humerus Surgical History Hx of cholecystectomy (Resolved) Social History marital status: Single Current Living Situation: Spouse Other Information That Helps Us Care for You: No Feels Safe at Home: Yes Safety Concerns: Feels Safe At This Time Smoking Status: Never smoker Hx Alcohol Use: No Hx Substance Use: No Beliefs That Will Affect Care: None Preferred Language: Polish Communication Ability: Effective Typing Pool Supervisor Required: No Review of Systems See HPI for pertinent positives & negatives. and A total of 10 systems reviewed and were otherwise negative Physical Exam Vital Signs Vital Signs - 24 hr 08/06/18 22:51 08/06/18 23:11 08/06/18 23:31 Temperature 37.8 C H Temperature Source Oral Sepsis Recent Fever Within 48 Hours No Sepsis New/Unexplained Change in Mental Status No Sepsis Action Taken by Nursing No Action Required Pulse Rate 85 86 85 Pulse Rate [Apical] Pulse Rate from SpO2 Sensor 85 86 Pulse Rhythm Regular Respiratory Rate 20 22 18 Respiratory Effort / Characteristics Non-Labored Spontaneous Respiratory Depth Normal Respiratory Pattern Regular Blood Pressure 200/82 H 204/86 H 191/69 H Blood Pressure [Left Arm] Blood Pressure Mean 121 125 109 Blood Pressure Mean [Left Arm] Blood Pressure Position Sitting Pulse Oximetry 88 L 94 94 Oxygen Delivery Method Room Air Oxygen Flow Rate 08/07/18 00:30 08/07/18 01:03 08/07/18 01:30 Temperature Temperature Source Sepsis Recent Fever Within 48 Hours Sepsis New/Unexplained Change in Mental Status Sepsis Action Taken by Nursing Pulse Rate 78 80 84 Pulse Rate [Apical] Pulse Rate from SpO2 Sensor 78 80 84 Pulse Rhythm Respiratory Rate 18 25 H 26 H Respiratory Effort / Characteristics Respiratory Depth Respiratory Pattern Blood Pressure 199/90 H Blood Pressure [Left Arm] Blood Pressure Mean 126 Blood Pressure Mean [Left Arm] Blood Pressure Position Pulse Oximetry 99 95 97 Oxygen Delivery Method Room Air Oxygen Flow Rate 08/07/18 02:01 08/07/18 02:30 08/07/18 02:58 Temperature Temperature Source Sepsis Recent Fever Within 48 Hours Sepsis New/Unexplained Change in Mental Status Sepsis Action Taken by Nursing Pulse Rate 77 76 77 Pulse Rate [Apical] Pulse Rate from SpO2 Sensor 76 76 78 Pulse Rhythm Respiratory Rate 27 H 27 H 22 Respiratory Effort / Characteristics Respiratory Depth Respiratory Pattern Blood Pressure 172/90 H 160/73 H 166/72 H Blood Pressure [Left Arm] Blood Pressure Mean 117 102 103 Blood Pressure Mean [Left Arm] Blood Pressure Position Pulse Oximetry 94 96 92 Oxygen Delivery Method Oxygen Flow Rate 08/07/18 03:30 08/07/18 03:43 08/07/18 04:00 Temperature Temperature Source Sepsis Recent Fever Within 48 Hours Sepsis New/Unexplained Change in Mental Status Sepsis Action Taken by Nursing Pulse Rate 73 78 70 Pulse Rate [Apical] Pulse Rate from SpO2 Sensor 73 78 70 Pulse Rhythm Respiratory Rate 27 H 16 27 H Respiratory Effort / Characteristics Respiratory Depth Respiratory Pattern Blood Pressure 135/63 168/79 H Blood Pressure [Left Arm] Blood Pressure Mean 87 108 Blood Pressure Mean [Left Arm] Blood Pressure Position Pulse Oximetry 92 95 94 Oxygen Delivery Method Oxygen Flow Rate 08/07/18 04:30 08/07/18 05:25 08/07/18 05:54 Temperature 37.1 C Temperature Source Oral Sepsis Recent Fever Within 48 Hours Sepsis New/Unexplained Change in Mental Status Sepsis Action Taken by Nursing Pulse Rate 78 80 Pulse Rate [Apical] 79 Pulse Rate from SpO2 Sensor 78 Pulse Rhythm Respiratory Rate 18 22 Respiratory Effort / Characteristics Non-Labored Spontaneous Respiratory Depth Respiratory Pattern Blood Pressure 201/93 H Blood Pressure [Left Arm] 175/88 H Blood Pressure Mean 129 Blood Pressure Mean [Left Arm] 117 Blood Pressure Position Pulse Oximetry 96 97 Oxygen Delivery Method Nasal Cannula Oxygen Flow Rate 3 3 General: Appears quite anxious, no respiratory distress. HEENT: Head - normocephalic and atraumatic Pupils are equal, round, and reactive to light. Extraocular eye muscles are intact, and sclera are anicteric. Nose - moist nasal mucosa without discharge. Mouth - moist buccal mucosa. Oropharynx is nonerythematous and there is no tonsillar exudate or edema noted. Neck: Supple; no JVD, nuchal rigidity, cervical lymphadenopathy, or auscultated bruits. Heart: Regular rate and rhythm. There is a normal S1 and S2 with no murmurs, clicks, or gallops appreciated. Lungs: Intermittent wheezing, diminished breath sounds secondary to body habitus. Abdomen: Soft, completely nontender, nondistended, with good bowel sounds. There are no palpable pulsatile masses or hepatosplenomegaly. There is no guarding, rigidity, or rebound noted. Extremities: No evidence of cyanosis or clubbing. There are easily palpable peripheral pulses. 2+ pitting edema bilaterally. Skin: warm and dry with good turgor and no rashes. Course 2329: Past medical records reviewed. The patient was evaluated in room B02, and a complete history and physical examination were performed. The IV lock was initiated and labs were drawn as above. The patient was observed on the crusher loader equipment operator and pulse oximeter. She had a twelve-lead EKG. The patient went for two-view chest x-ray. 0131: I reviewed the results of the laboratory studies we have so far as well as the chest x-ray results. I checked on the patient, and she is refusing a CT due to her claustrophobia. She complained of a headache. The patient reported that when she had to stand up from the bed in X-ray and move over to the table, she had severe SOB. She stated that her anxiety worsened. 0133: Ativan 1 mg in 2 mls @ 2 mls/min IV, Tylenol 1000 mg PO 0259: I spoke with Dr. Hancock, [facility] hospitalist, about the patients case. He will evaluate her further. Consultations Consultation #1: I spoke with Dr. Hancock, [facility] hospitalist, about the patients case. He will evaluate her further. Time: 02:59 Administered Medications Ondansetron HCl (Zofran) 4 mg IV Q6H PRN PRN Reason: Nausea Stop: 09/06/18 05:53 Last Admin: 08/07/18 06:06 Dose: 4 mg Discontinued Medications Acetaminophen (Tylenol) 1,000 mg PO NOW STA Stop: 08/07/18 01:34 Last Admin: 08/07/18 01:42 Dose: 1,000 mg Lorazepam (Ativan) 1 mg in 2 mls @ 2 mls/min IV NOW STA Stop: 08/07/18 01:34 Last Admin: 08/07/18 01:43 Dose: 2 mls/min Piperacillin Sod/Tazobactam Sod (Zosyn) 4.5 gm in 120 mls @ 240 mls/hr IV TODAY @0430 JOHNATHON Stop: 08/07/18 04:59 Last Infusion: 08/07/18 06:13 Dose: 0 mls/hr Admin: 08/07/18 05:39 Dose: 240 mls/hr Medical Decision Making Differential Diagnosis The differential diagnosis includes: CHF, pneumonia, anxiety, bronchitis, and PE. Medical Records Attestation: I reviewed the patient's medical records. Home Medications Current Medication List: was personally reviewed by me Laboratory Data Attestation: I reviewed the patient's lab results. Result diagrams: 08/07/18 00:17 08/07/18 00:17 Lab Results 08/07/18 08/07/18 08/07/18 Range/Units 00:17 00:17 00:17 WBC 8.92 (4.8-10.8) K/uL RBC 4.42 (4.2-5.4) M/uL Hgb 12.5 (12.0-16.0) g/dL Hct 40.2 (37-47) % MCV 91.0 (80-100) fL MCH 28.3 (25-34) pg MCHC 31.1 L (32-36) g/dL RDW Std Deviation 47.6 H (36.4-46.3) fL RDW Coeff of Chantal 14.3 (11.5-14.5) % Plt Count 217 (130-400) K/uL MPV 10.5 H (7.4-10.4) fL Immature Gran % (Auto) 0.6 % Neut % (Auto) 81.3 % Lymph % (Auto) 9.3 % Hodgeman % (Auto) 7.3 % Eos % (Auto) 1.2 % Baso % (Auto) 0.3 % Immature Gran # (Auto) 0.05 H (0.00-0.02) K/uL Neut # (Auto) 7.25 H (1.4-6.5) K/uL Lymph # (Auto) 0.83 L (1.2-3.4) K/uL Hodgeman # (Auto) 0.65 H (0.11-0.59) K/uL Eos # (Auto) 0.11 (0-0.5) K/uL Baso # (Auto) 0.03 (0-0.2) K/uL PT 10.6 (9.0-12.0) Seconds INR 1.0 (0.9-1.1) APTT 21.9 (21.0-31.0) Seconds PTT Ratio 0.8 D-Dimer 860 H* (0-500) ug/L FEU Sodium 142 (136-145) mmol/L Potassium 4.2 (3.5-5.1) mmol/L Chloride 107 (98-107) mmol/L Carbon Dioxide 32 (21-32) mmol/L Anion Gap 3.0 (3-11) BUN 32 H (7-18) mg/dl Creatinine 1.71 H (0.6-1.2) mg/dl Est Cr Clr Drug Dosing 61.5 ml/min Est GFR ( Amer) 37.3 Est GFR (Non-Af Amer) 32.2 BUN/Creatinine Ratio 18.5 (10-20) Glucose 145 H (70-99) mg/dl Lactate (0.4-2.0) mmol/L Calcium 8.9 (8.5-10.1) mg/dl Total Bilirubin 0.4 (0.2-1) mg/dl AST 31 (15-37) U/L ALT 31 (12-78) U/L Alkaline Phosphatase 69 (45-117) U/L Troponin I < 0.015 (0-0.045) ng/ml NT-Pro-B Natriuret Pep 1432 H (0-900) pg/ml Total Protein 7.3 (6.4-8.2) gm/dl Albumin 3.3 L (3.4-5.0) gm/dl Globulin 4.0 (2.5-4.0) gm/dl Albumin/Globulin Ratio 0.8 L (0.9-2) 08/07/18 Range/Units 00:17 WBC (4.8-10.8) K/uL RBC (4.2-5.4) M/uL Hgb (12.0-16.0) g/dL Hct (37-47) % MCV (80-100) fL MCH (25-34) pg MCHC (32-36) g/dL RDW Std Deviation (36.4-46.3) fL RDW Coeff of Chantal (11.5-14.5) % Plt Count (130-400) K/uL MPV (7.4-10.4) fL Immature Gran % (Auto) % Neut % (Auto) % Lymph % (Auto) % Hodgeman % (Auto) % Eos % (Auto) % Baso % (Auto) % Immature Gran # (Auto) (0.00-0.02) K/uL Neut # (Auto) (1.4-6.5) K/uL Lymph # (Auto) (1.2-3.4) K/uL Hodgeman # (Auto) (0.11-0.59) K/uL Eos # (Auto) (0-0.5) K/uL Baso # (Auto) (0-0.2) K/uL PT (9.0-12.0) Seconds INR (0.9-1.1) APTT (21.0-31.0) Seconds PTT Ratio D-Dimer (0-500) ug/L FEU Sodium (136-145) mmol/L Potassium (3.5-5.1) mmol/L Chloride (98-107) mmol/L Carbon Dioxide (21-32) mmol/L Anion Gap (3-11) BUN (7-18) mg/dl Creatinine (0.6-1.2) mg/dl Est Cr Clr Drug Dosing ml/min Est GFR ( Amer) Est GFR (Non-Af Amer) BUN/Creatinine Ratio (10-20) Glucose (70-99) mg/dl Lactate 1.8 (0.4-2.0) mmol/L Calcium (8.5-10.1) mg/dl Total Bilirubin (0.2-1) mg/dl AST (15-37) U/L ALT (12-78) U/L Alkaline Phosphatase (45-117) U/L Troponin I (0-0.045) ng/ml NT-Pro-B Natriuret Pep (0-900) pg/ml Total Protein (6.4-8.2) gm/dl Albumin (3.4-5.0) gm/dl Globulin (2.5-4.0) gm/dl Albumin/Globulin Ratio (0.9-2) Imaging Data Attestation: I personally reviewed and interpreted this imaging study as follows : My Impression: XR Chest 2V: Cardiomegaly. CHF. ECG Data Attestation: I personally reviewed and interpreted this ECG as follows: Indication: SOB/dyspnea Rate (beats per minute): 79 Rhythm: normal sinus Findings: + other (no ischemia); no ectopy Blood Pressure Blood Pressure Findings: Elevated blood pressure Blood Pressure Disposition: further management by hospitalist [facility] [place] The patient is a 57 year old female who presents to the Emergency Room with complaints of worsening SOB that she noticed earlier today. The patient was just discharged from the hospital after an episode of congestive heart failure and worsening renal insufficiency. The patient had been taken off of her Lasix and then was just restarted on its 20 mg every other day. The patient admits that she becomes extremely anxious and has panic attacks associated with the feeling of shortness of breath. This complicates her situation. The patient did take her Lasix for the first time yesterday and had significant urinary output but remains extremely short of breath. Chest x-ray shows evidence of congestive heart failure. She does have a slightly elevated BNP. The patient is hemodynamically stable on supplemental oxygen. She was given a dose of Ativan for her anxiety. This did bring her blood pressure down nicely. I discussed the case with the [facility] hospitalist and they will evaluate for further management. Impression & Plan CHF (congestive heart failure), Renal insufficiency Discharge Plan Visit Data *Final* Discharge Date/Time: 08/07/18 04:53 Chief Complaint: Shortness of Breath/Dyspnea Stated Complaint: SOB ED Provider: Danielle Lozoya Discharge Problem: CHF (congestive heart failure), Renal insufficiency Patient Disposition: Admitted As Inpatient Discharge Instructions Interventions: ED Discharge Assessment Last Done: 08/07/18 04:53 The scribe's documentation has been prepared under my direction and personally reviewed by me in its entirety. I confirm that the note above accurately reflects all work, treatment, procedures, and medical decision making performed by me.
--- NOTE | 2018-08-07 07:09 | XRay Report ---
TWO VIEW CHEST CLINICAL HISTORY: Dyspnea. FINDINGS: PA and lateral chest radiographs are compared to study dated 07/22/2018 and correlated with c hest CT dated 12/30/2017. The heart is enlarged and there is atherosclerotic calcification of the thor acic aorta. There is pulmonary vascular congestion. Chronic interstitial thickening is similar to pre vious. No airspace consolidation or pleural effusion is identified. Bibasilar atelectasis is observed . There is no pneumothorax. The skeletal structures are osteopenic. The bony thorax appears intact. D egenerative change is noted in the thoracic spine. A left shoulder arthroplasty is in place. IMPRESSION: 1. Cardiomegaly with pulmonary vascular congestion. 2. No airspace consolidation or pleural effusion is identified. Electronically signed by: Bryn Jose M.D. 08/07/2018 7:07 AM
[2018-08-07] MEDS: IPRATROPIUM BROMIDE NEB SOLN 0.02% 2.5 ML VIAL INH SCH ×3 (07:16→19:05)
[2018-08-07] MEDS: LEVALBUTEROL 1.25MG/0.5ML NEB INH SCH ×3 (07:16→19:05)
[2018-08-07] MEDS: BUDESONIDE 0.5 MG/2 ML VIAL (PULMICORT) NEB SCH ×2 (07:16→19:06)
[2018-08-07] MEDS ORDERED: XOPENEX/ATROVENT 1.25mg/0.5MG NEB COMBO NEB SCH (08:00)
[2018-08-07] MEDS: INSULIN ASPART 100 UNITS/ML 3 ML PEN SC SCH ×4 (08:40→20:13)
--- NOTE | 2018-08-07 08:41 | Hospitalist Progress Note ---
Date of Service August 07, 2018 Assessment & Plan (1) Hypoxia: On a chronic basis associated with obesity hypoventilation syndrome and sleep apnea. In addition, this visit, is associated with an infectious process she did have severe fever on presentation has some rales at the bases of her lung. Antibiotics have been initiated for the concern for possible pneumonia. (2) Obesity hypoventilation syndrome: Obesity hypoventilation syndrome/sleep apnea-- Patient has had additional weight gain since last visit almost 7 kg. Upcoming schedule gastric bypass surgery has been rescheduled due to her recent hospitalizations (3) Pneumonia: For possible right middle lobe infiltrate her clinical exam shows more rales in the left lower lung field Xopenex Atrovent nebulizer every 6 hours while awake. Pulmicort Respules 0.5 mg inhaled twice daily. Continue on Zosyn 4.5 g renal dose (4) CKD (chronic kidney disease) stage 3, GFR 30-59 ml/min: Creatinine 1.71 upon admission, is within her range of 1.45-2.16. She has intermittently been on Lasix in the past for fluid retention, serologies were Lasix bolus dosing (5) Morbid obesity with BMI of 60.0-69.9, adult: She has gained approximately 7 kg since last admission on 07/23/18 (6) Obstructive sleep apnea on CPAP: Patient will use her home BiPAP unit for bedtime. Will nocturnal sleep study to see if she requires oxygen at night (7) Anxiety and depression: Continue buspirone, Lexapro, Ativan and trazodone. (8) Diabetes: Continue insulin glargine, but decreased from home bedtime dosing Placed on Accu-Cheks before meals and at bedtime with NovoLog coverage per scale (9) Hyperlipemia: Continue atorvastatin 80 mg at bedtime (10) Hypothyroidism: Continue levothyroxine sodium 50 mcg daily Subjective Patient is marked anxiety better dyspnea shortness of breath. She feels this is all related to her obesity her at the bedside medial long discussion that yes this is. She also is intolerant of her nighttime BiPAP taking it off frequently which also does not help her fluid retention. She is seen by nephrology who ordered Lasix will follow laboratories. Review of Systems ROS: Morbidly obese and uncomfortable with her body weight No double vision blurry vision No problems with speech or swallowing No palpitations, chest pain or pressure Significant issues with dyspnea especially at night No abdominal pain nausea vomiting diarrhea changes in appetite or weight No burning urine urine frequency or changes in color No focal joint pain or muscle pain Redness and to her distal extremities No unusual bruising or bleeding Mild persistent back pain but no numbness or loss of strength No changes in memory or confusion Physical Exam 2 Vital Signs (Past 24 Hours): Last Vital Signs Temp 38.4 C H 08/07/18 07:23 Pulse 83 08/07/18 07:23 Resp 20 08/07/18 07:23 BP 126/64 08/07/18 07:23 Pulse Ox 98 08/07/18 07:23 The patient appeared well nourished and normally developed. Vital signs as documented. Head exam is unremarkable. normocephalic, atraumatic Neck is with jugular venous distension, thyromegaly, or lymphademopathy Lungs are decreased bilaterally with mild rales at the base Cardiac exam reveals Rhythm is regular. First and second heart sounds normal. Abdominal exam reveals normal bowel sounds, no masses, no organomegaly ribs are tender to examination likely from coughing Extremities are mildly edematous and both pedal pulses are present Neurologic exam is A&Ox3, no focal deficits, strength is equal bilateral Psychologically seems neither anxious or depressed Skin is warm Dry
[2018-08-07] MEDS: TRULICITY~ORDER AWAITING ACTION SCH ×3 (08:42→21:59)
[2018-08-07] MEDS: LORazepam 1 MG TAB PO SCH ×2 (08:48→20:20)
[2018-08-07] MEDS: FENOFIBRATE NANOCRYSTALLIZED 145 MG TABLET PO SCH (08:49)
[2018-08-07] MEDS: ESCITALOPRAM OXALATE 20 MG TAB PO SCH (08:49)
[2018-08-07] MEDS: POTASSIUM CHLORIDE 10 MEQ TABCR PO SCH (08:50)
[2018-08-07] MEDS: BusPIRone 15 MG TAB PO SCH ×2 (08:50→20:20)
[2018-08-07] MEDS: ASPIRIN 81 MG ECTAB PO SCH (08:50)
[2018-08-07] MEDS: METOPROLOL SUCC 50MG EXT REL TAB PO SCH (08:51)
[2018-08-07] MEDS: MAGNESIUM OXIDE 400 MG TAB PO SCH (08:52)
[2018-08-07] MEDS ORDERED: ZINC SULFATE 220 MG CAPSULE PO SCH (09:00)
[2018-08-07] MEDS ORDERED: FUROSEMIDE 100 MG in DEXTROSE 5% 90 ML IV SCH (10:45)
[2018-08-07] MEDS: PIPERACILLIN/TAZOBACTAM 4.5 GM in DEXTROSE 5% 100 ML IV SCH ×2 (10:55→17:03)
--- NOTE | 2018-08-07 11:15 | Nephrology Consultation ---
Date of Consultation August 07, 2018 Assessment & Plan (1) Pulmonary edema: -- 08/05 Echocardiogram reviewed: Patient has preserved LVEF. RV and pulmonary vessels were not well visualized -- CXR film reviewed: Mild pulmonary vascular congestion -- Will provide one dose Furosemide 40 mg IV x 1 today and monitor UO and PRP -- When transitioning to oral diuretic regimen, patient may benefit from conversion to Torsemide to allow increased bioavailability -- Will request that dietitian provide education on low sodium diet -- May need to accept mild increase in creatinine value in order to render patient euvolemic and functional (2) CKD (chronic kidney disease) stage 3, GFR 30-59 ml/min: -- Baseline creatinine has been 1.6. Renal impairment is on the basis of DM, HTN, obesity (3) Morbid obesity with BMI of 60.0-69.9, adult: -- Patient likely has pulmonary HTN related to obesity hypoventilation syndrome -- Patient is pursuing gastric bypass at [facility] History of Present Illness Reason for Consultation: CKD w/ pulmonary edema Attending Physician: Jevon Appiah MD History of Present Illness Mrs. Arellano is a 57 year old white female who is seen at the request of Dr. Hancock for evaluation of CKD and pulmonary edema. Medical records in the EMR were reviewed today and are summarized as follows: Mrs. Arellano suffers from morbid obesity. Her BMI is > 60. She is planning to undergo gastric bypass surgery at [facility]. 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 Mrs. Arellano was last admitted to [facility] 07/23 - 07/26 for evaluation of dyspnea. Her condition was felt to be due to several factors including anxiety, deconditioning, poor compliance w/ CPAP therapy. Echocardiogram revealed preserved LV function. Her condition improved w/ IV diuretic therapy. Her discharge weight was 174 kg (383 lbs). Diuretics were held at the time of discharge as her creatinine had risen to 2.1. Mrs. Arellano reports that she has been off diuretics since discharge. Her weight has now risen to 179 kg (394 lbs). She was readmitted yesterday due to recurrent SALAZAR. Admission CXR revealed cardiomegally and pulmonary vascular congestion but no florinda CHF, pleural effusion or airspace consolidation. SaO2 was only 91% on 2 L NC. Influenza testing is pending. Allergies Allergy/AdvReac Type Severity Reaction Status Date / Time promethazine Allergy Unknown BROKEN Verified 07/22/18 23:52 CAPILLARIES FACE Home Medications Home Medications Medication Instructions Recorded Confirmed Type aspirin 81 mg PO DAILY 07/22/18 08/07/18 History atorvastatin 80 mg PO HS 07/22/18 08/07/18 History buspirone 30 mg PO BID 07/22/18 08/07/18 History dulaglutide [Trulicity] 1.5 mg/ml SUBCUT WK 07/22/18 08/07/18 History ergocalciferol (vitamin D2) 50,000 unit PO DIRECTED 07/22/18 08/07/18 History [Vitamin D2] fenofibrate nanocrystallized 145 mg PO DAILY 07/22/18 08/07/18 History escitalopram oxalate [Lexapro] 20 mg PO DAILY 07/23/18 08/07/18 History insulin glargine [Basaglar KwikPen 150 unit SUBCUT HS 07/23/18 08/07/18 History U-100 Insulin] levothyroxine 50 mcg PO DAILY 07/23/18 08/07/18 History lorazepam [Ativan] 1 mg PO AMHS 07/23/18 08/07/18 History losartan 100 mg PO DAILY 07/23/18 08/07/18 History magnesium oxide 400 mg PO DAILY 07/23/18 08/07/18 History metoprolol succinate 100 mg PO DAILY 07/23/18 08/07/18 History potassium chloride 10 meq PO DAILY 07/23/18 08/07/18 History trazodone 50 mg PO HS PRN MDD 100 07/23/18 08/07/18 History zinc gluconate 100 mg PO HS 07/23/18 08/07/18 History insulin lispro [Humalog KwikPen 0 units SUBCUT UD 08/07/18 08/07/18 History Insulin] Patient History Medical History CKD (chronic kidney disease) stage 3, GFR 30-59 ml/min (Chronic) Hypoxia (Chronic) Morbid obesity with BMI of 60.0-69.9, adult (Chronic) Obstructive sleep apnea on CPAP (Chronic) Diabetes (Chronic) Hypertension (Chronic) Hyperlipemia (Chronic) Hypothyroidism (Chronic) Chronic low back pain (Chronic) Depression (Chronic) Anxiety (Chronic) Avascular necrosis of head of humerus Surgical History Hx of cholecystectomy (Resolved) Social History marital status: Single Current Living Situation: Spouse Other Information That Helps Us Care for You: No Feels Safe at Home: Yes Safety Concerns: Feels Safe At This Time Smoking Status: Never smoker Hx Alcohol Use: No Hx Substance Use: No Beliefs That Will Affect Care: None Communication Ability: Effective Review of Systems Constitutional: + fever Ear, Nose, Mouth, Throat: no sinus pain/pressure Respiratory: no dyspnea Cardiovascular: no chest pain Gastrointestinal: no abdominal pain Physical Exam 2 Vital Signs (Past 24 Hours): Last Vital Signs Temp 38.3 C H 08/07/18 10:59 Pulse 85 08/07/18 10:59 Resp 22 08/07/18 10:59 BP 160/79 H 08/07/18 10:59 Pulse Ox 91 08/07/18 10:59 Constitutional: + obese Eyes: PERRL, conjunctivae normal, anicteric sclerae Neck: trachea midline, no thyromegaly + thick neck Respiratory: normal respiratory effort, lungs clear to auscultation Cardiovascular: RRR, no murmur, no edema Extremities: + edema (1+ pretibial pitting edema) Gastrointestinal (Abdomen): normal bowel sounds, soft, nontender, no hepatosplenomegaly Neurologic: PERRL, EOMI, accommodation nl, no face palsy, no dysarthria moves all extremities and awake Results & Data Laboratory Results Laboratory Tests 08/07/18 08/07/18 00:17 00:17 WBC 8.92 Hgb 12.5 Hct 40.2 Plt Count 217 Sodium 142 Potassium 4.2 Chloride 107 Carbon Dioxide 32 BUN 32 H Creatinine 1.71 H Glucose 145 H Diagnostic Findings CXR 08/07: The heart is enlarged and there is atherosclerotic calcification of the thoracic aorta. There is pulmonary vascular congestion. Chronic interstitial thickening is similar to previous. No airspace consolidation or pleural effusion is identified. Bibasilar atelectasis is observed. There is no pneumothorax. The skeletal structures are osteopenic. The bony thorax appears intact. Degenerative change is noted in the thoracic spine. A left shoulder arthroplasty is in place. [id number]/19: LVEF 55 - 60%, mild LVH. RV and pulmonary vessels were not well visualized
[2018-08-07] MEDS ORDERED: FUROSEMIDE 40 MG in SYRINGE 0 ML IV ONE (11:30)
[2018-08-07] MEDS: POLYETHYLENE (MIRALAX) 17 GM PACK PO PRN (13:32)
[2018-08-07] MEDS: OXYCODONE/ACETAMINOPHEN 10-325 TAB PO PRN (18:59)
[2018-08-07] MEDS: ATORVASTATIN 40 MG TAB PO SCH (20:21)
[2018-08-07] MEDS: ZINC SULFATE 220 MG CAPSULE PO SCH (20:21)
[2018-08-07] MEDS: TRAZODONE HCL 50 MG TAB PO PRN (20:37)
[2018-08-07] MEDS ORDERED: INSULIN GLARGINE 100 UNIT/ML VIAL SQ SCH (21:00)
[2018-08-08] MEDS: LEVALBUTEROL 1.25MG/0.5ML NEB INH SCH ×4 (01:33→19:04)
[2018-08-08] MEDS: IPRATROPIUM BROMIDE NEB SOLN 0.02% 2.5 ML VIAL INH SCH ×4 (01:33→19:04)
[2018-08-08] MEDS: PIPERACILLIN/TAZOBACTAM 4.5 GM in DEXTROSE 5% 100 ML IV SCH ×3 (01:38→18:32)
[2018-08-08] MEDS: OXYCODONE/ACETAMINOPHEN 10-325 TAB PO PRN (04:29)
[2018-08-08] MEDS: LEVOTHYROXINE SODIUM 50 MCG TABLET PO SCH (05:50)
[2018-08-08] MEDS: CARBOHYDRATES FOR HYPOGLYCEMIA PO PRN ×2 (07:21→07:40)
[2018-08-08] MEDS: ACETAMINOPHEN 325 MG TAB PO PRN ×3 (07:27→20:51)
[2018-08-08] MEDS: BUDESONIDE 0.5 MG/2 ML VIAL (PULMICORT) NEB SCH ×2 (07:30→19:06)
[2018-08-08] MEDS: guaiFENesin SUGAR FREE 200 MG/10 ML UDC PO PRN ×2 (07:52→16:48)
[2018-08-08 08:00] LABS: BUN Creatinine Ratio 16.2 (10-20); Calcium 8.2 mg/dl (8.5-10.1); Creatinine Clr Calc Pharmacy 41.6 ml/min; Est GFR (African American) 23.1; Potassium 4.1 mmol/L (3.5-5.1)
[2018-08-08] MEDS: LORazepam 1 MG TAB PO SCH ×2 (08:00→20:38)
[2018-08-08] MEDS: ESCITALOPRAM OXALATE 20 MG TAB PO SCH (08:00)
[2018-08-08] MEDS: MAGNESIUM OXIDE 400 MG TAB PO SCH (08:00)
[2018-08-08] MEDS: ASPIRIN 81 MG ECTAB PO SCH (08:00)
[2018-08-08] MEDS: FENOFIBRATE NANOCRYSTALLIZED 145 MG TABLET PO SCH (08:00)
[2018-08-08] MEDS: BusPIRone 15 MG TAB PO SCH ×2 (08:00→20:38)
[2018-08-08] MEDS: POTASSIUM CHLORIDE 10 MEQ TABCR PO SCH (08:00)
[2018-08-08] MEDS: METOPROLOL SUCC 50MG EXT REL TAB PO SCH (08:00)
[2018-08-08] MEDS ORDERED: PIPERACILLIN/TAZOBACTAM 4.5 GM in DEXTROSE 5% 100 ML IV SCH (08:30)
[2018-08-08] MEDS: INSULIN ASPART 100 UNITS/ML 3 ML PEN SC SCH ×3 (08:47→18:32)
--- NOTE | 2018-08-08 10:57 | Nephrology Progress Note ---
Date of Service August 08, 2018 Assessment & Plan (1) Pulmonary edema: -- 08/05 Echocardiogram reviewed: Patient has preserved LVEF. RV and pulmonary vessels were not well visualized -- CXR 08/05: Mild pulmonary vascular congestion. No infiltrate or effusion -- Creatinine has risen to 2.7 following Furosemide 40 mg IV x 1. Patient likely has R heart failure w/ decreased EAV. Will hold diuretic today and monitor kidney function -- Question whether dyspnea is related to RAD. Consider consultation w/ Pulmonology (2) CKD (chronic kidney disease) stage 3, GFR 30-59 ml/min: -- Baseline creatinine has been 1.6. Renal impairment is on the basis of DM, HTN, obesity (3) Morbid obesity with BMI of 60.0-69.9, adult: -- Patient likely has pulmonary HTN related to obesity hypoventilation syndrome -- Patient is pursuing gastric bypass at [facility] Subjective Mrs. Arellano was seen & examined in her hospital room this morning. She was breathing comfortably on O2 at 2 L / min NC. Mrs. Arellano c/o wheezing and low grade fever but denied productive cough, angina or uremic symptoms. Constitutional: + fever Physical Exam 2 Vital Signs (Past 24 Hours): Last Vital Signs Temp 36.9 C 08/08/18 10:51 Pulse 62 08/08/18 10:51 Resp 19 08/08/18 10:51 BP 109/57 L 08/08/18 10:51 Pulse Ox 95 08/08/18 10:51 Neck: trachea midline, no thyromegaly Respiratory: Auscultation: + wheezes Cardiovascular: RRR, no murmur, no edema Gastrointestinal (Abdomen): Percussion/Palpation: abdomen soft; abdomen nontender and no guarding Results & Data Laboratory Results Laboratory Tests 08/07/18 08/08/18 00:17 06:58 WBC 8.92 Hgb 12.5 Hct 40.2 Plt Count 217 Sodium 138 Potassium 4.1 Chloride 103 Carbon Dioxide 30 BUN 41 H Creatinine 2.54 H D Glucose 47 L*
[2018-08-08] MEDS: TRULICITY~ORDER AWAITING ACTION SCH ×3 (12:48→21:50)
--- NOTE | 2018-08-08 15:40 | Hospitalist Progress Note ---
Date of Service August 08, 2018 Assessment & Plan (1) Hypoxia: On a chronic basis associated with obesity hypoventilation syndrome and sleep apnea. In addition, this visit, is associated with an infectious process/pneumonia she did have severe fever on presentation has some rales Antibiotics have been initiated for the concern for possible pneumonia present on admission. (2) Obesity hypoventilation syndrome: Obesity hypoventilation syndrome/sleep apnea--patient was intolerant of wearing her CPAP throughout the night Patient has had additional weight gain since last visit almost 7 kg. Upcoming schedule gastric bypass surgery has been rescheduled due to her recent hospitalizations (3) Pneumonia: For possible right middle lobe infiltrate her clinical exam shows more rales now heard in conjunction with the x-ray Xopenex Atrovent nebulizer every 6 hours while awake. Pulmicort Respules 0.5 mg inhaled twice daily. Continue on Zosyn 4.5 g renally dose (4) CKD (chronic kidney disease) stage 3, GFR 30-59 ml/min: Creatinine has increased with diuretic therapy being managed by nephrology She has intermittently been on Lasix in the past for fluid retention, (5) Morbid obesity with BMI of 60.0-69.9, adult: She has gained approximately 7 kg since last admission on 07/23/18 (6) Obstructive sleep apnea on CPAP: Patient will use her home BiPAP unit for bedtime. Will nocturnal sleep study to see if she requires oxygen at night will be repeated on 08/08 (7) Anxiety and depression: Trolled with buspirone, Lexapro, Ativan and trazodone. (8) Diabetes: Continus on insulin glargine, due to hypoglycemia we have decreased from home bedtime dosing Placed on Accu-Cheks before meals and at bedtime with NovoLog coverage per scale (9) Hyperlipemia: Continue atorvastatin 80 mg at bedtime (10) Hypothyroidism: stable on levothyroxine sodium 50 mcg daily Subjective this pt is about the same has a large amount of anxiety regarding her night time shortness of breath but she also does have a infectous pneuomonia at this time Review of Systems ROS: No double vision blurry vision No problems with speech or swallowing No palpitations, chest pain or pressure Persistent respiratory distress at night and also dyspnea on exertion No abdominal pain nausea vomiting diarrhea changes in appetite or weight No burning urine urine frequency or changes in color No focal joint pain or muscle pain persistent lower extremity swelling which is been painful at times No skin rashes or oral lesions No unusual bruising or bleeding No focused back pain or numbness or loss of strength No changes in memory or confusion Physical Exam 2 Vital Signs (Past 24 Hours): Last Vital Signs Temp 36.9 C 08/08/18 15:08 Pulse 73 08/08/18 15:08 20 08/08/18 15:08 BP 90/47 L 08/08/18 15:08 Pulse Ox 94 08/08/18 15:08 The patient appeared morbidly obese Vital signs as documented. Head exam is unremarkable. normocephalic, atraumatic Neck is without jugular venous distension, thyromegaly, or lymphademopathy Lungs are with a few rales to the right base Cardiac exam reveals Rhythm is regular. First and second heart sounds normal. Abdominal exam reveals normal bowel sounds, no masses, no organomegaly Extremities are moderate edematous and both pedal pulses are present Neurologic exam is A&Ox3, no focal deficits, strength is equal bilateral Psychologically seems neither anxious or depressed Skin is warm chronic venous stasis changes to her lower extremities
[2018-08-08] MEDS ORDERED: PHARMACY GLYCEMIC MGMT CONSULT PRN (18:53)
--- NOTE | 2018-08-08 20:36 | Pharmacy Report ---
Glycemic Control Consultation - Date of Service August 08, 2018 - Scope Scope: Glycemic Pharmacist consulted by Dr Appiah on 08-08-18 for glycemic control and to write orders per [facility] inpatient glycemic control protocol - Objective Weight: 180.3 kg Accuchecks BSG (last 24hrs): 08/07/18 08/08/18 08/08/18 20:12 06:58 07:15 Glucose 47 L* POC Glucose 128 H 53 L* 08/08/18 08/08/18 08/08/18 07:17 07:36 08:08 Glucose POC Glucose 49 L* 64 L* 91 08/08/18 08/08/18 11:26 16:37 Glucose POC Glucose 129 H 171 H Laboratory Data (last 24hrs): 08/08/18 06:58 Potassium 4.1 Carbon Dioxide 30 Anion Gap 5.0 Creatinine 2.54 H D Est Cr Clr Drug Dosing 41.6 - Recent Pertinent Medications Outpatient Anti-diabetic Regimen: * Trulicity, Lantus (Basaglar) 150 units SQ HS, Admelog (lispro) SSI (CF:5 CR:2 - per patient) * A1c = 7.8 % 08-02-18 Risk Factors for Insulin Resistance: * Diet: t2dm - Assessment & Plan Assessment & Plan: ASSESSMENT: * 57 year old female admitted with hypoxia. Type 2 diabetic managed at home on Trulicity and Lantus/Lispro. A1C from 07/23/18 was 7.8% * Patient received home dose of Lantus 150 units last evening - fasting BSG this am low at 53 mg/dL. Patient reports not eating dinner last night. Previous admissions show that she does used reduced dose of Lantus. * Pharmacy consulted this evening - will scale back on Lantus dosing to avoid hypoglycemia; Plan to reduce dose by about 50% for this evening. May need to titrate based upon BSGs * Patient refusing hospital Novolog - would prefer to use her own insulin ( Admelog/insulin lispro); labeled product sent back to patient for inpatient use. Will plan to use a slightly loosened CF/CR than what patient reports at home, but similar to previous admissions - will add overnight checks PLAN FOR INPATIENT GLYCEMIC CONTROL: * Basal insulin - decrease dose * Lantus 75 units Q HS * Bolus insulin - adjusted/overnight checks * NovoLog per scale ACHS or Q6hrs while NPO * Goal Range: Low 110 mg/dL - High 140 mg/dL * Correction Factor: 10 mg/dL/unit * Nutritional / Prandial insulin per carb ratio of 1 unit per 3 grams CHO consumed * Please note that the plan above was derived based on current level of insulin resistance and hospital stress. These recommendations are appropriate for inpatient admission only. Plan of care upon discharge will need to be reassessed to avoid potential outpatient hypo/hyperglycemia. Thank you.
[2018-08-08] MEDS: ZINC SULFATE 220 MG CAPSULE PO SCH (20:39)
[2018-08-08] MEDS: ATORVASTATIN 40 MG TAB PO SCH (20:39)
[2018-08-08] MEDS: INSULIN LISPRO 100 UNIT/ML SC SCH (20:46)
[2018-08-08] MEDS ORDERED: INSULIN GLARGINE 100 UNIT/ML VIAL SQ SCH ×2 (21:00)
[2018-08-08] MEDS ORDERED: INSULIN LISPRO 100 UNIT/ML SC SCH (21:00)
[2018-08-08] MEDS: TRAZODONE HCL 50 MG TAB PO PRN (21:07)
[2018-08-09] MEDS: OXYCODONE/ACETAMINOPHEN 10-325 TAB PO PRN ×3 (00:05→21:24)
[2018-08-09] MEDS: guaiFENesin SUGAR FREE 200 MG/10 ML UDC PO PRN ×3 (00:07→17:59)
[2018-08-09] MEDS: INSULIN LISPRO 100 UNIT/ML SC SCH ×7 (00:12→21:11)
[2018-08-09] MEDS: PIPERACILLIN/TAZOBACTAM 4.5 GM in DEXTROSE 5% 100 ML IV SCH ×3 (01:47→21:10)
[2018-08-09] MEDS: LEVALBUTEROL 1.25MG/0.5ML NEB INH SCH ×4 (02:06→20:49)
[2018-08-09] MEDS: IPRATROPIUM BROMIDE NEB SOLN 0.02% 2.5 ML VIAL INH SCH ×4 (02:06→20:49)
[2018-08-09] MEDS: LEVOTHYROXINE SODIUM 50 MCG TABLET PO SCH (05:55)
[2018-08-09] MEDS: BUDESONIDE 0.5 MG/2 ML VIAL (PULMICORT) NEB SCH ×2 (07:19→20:49)
[2018-08-09] MEDS: BusPIRone 15 MG TAB PO SCH ×2 (08:20→21:12)
[2018-08-09] MEDS: METOPROLOL SUCC 50MG EXT REL TAB PO SCH (08:20)
[2018-08-09] MEDS: ESCITALOPRAM OXALATE 20 MG TAB PO SCH (08:20)
[2018-08-09] MEDS: POTASSIUM CHLORIDE 10 MEQ TABCR PO SCH (08:21)
[2018-08-09] MEDS: MAGNESIUM OXIDE 400 MG TAB PO SCH (08:21)
[2018-08-09] MEDS: FENOFIBRATE NANOCRYSTALLIZED 145 MG TABLET PO SCH (08:21)
[2018-08-09] MEDS: ASPIRIN 81 MG ECTAB PO SCH (08:21)
[2018-08-09] MEDS: LORazepam 1 MG TAB PO SCH ×2 (08:23→21:10)
[2018-08-09 08:58] LABS: Hematocrit (blood only) 33.6 % (37-47); Hemoglobin 10.3 g/dL (12.0-16.0); Mean Corpuscular Hgb Conc 30.7 g/dL (32-36); Mean Corpuscular Volume 90.3 fL (80-100); Mean Platelet Volume 10.8 fL (7.4-10.4); Platelet Count 153 K/uL (130-400); RDW Coefficient of Variation 14.7 % (11.5-14.5); RDW Standard Deviation 48.3 fL (36.4-46.3); Red Blood Count 3.72 M/uL (4.2-5.4); White Blood Count 4.31 K/uL (4.8-10.8)
[2018-08-09] MEDS: TRULICITY~ORDER AWAITING ACTION SCH (09:19)
[2018-08-09] MEDS: ERGOCALCIFEROL 50,000 UNITS CAP PO SCH (09:29)
[2018-08-09 09:32] LABS: Calcium 7.9 mg/dl (8.5-10.1); Creatinine Clr Calc Pharmacy 33.7 ml/min; Est GFR (African American) 17.8; Est GFR (Non-African American) 15.4; Magnesium 1.9 mg/dl (1.8-2.4); Potassium 4.1 mmol/L (3.5-5.1)
--- NOTE | 2018-08-09 10:14 | Nephrology Progress Note ---
Date of Service August 09, 2018 Assessment & Plan (1) Acute kidney injury: -- Clinically suspect PATY due to intravascular volume contraction -- Continue to hold diuretics -- Will order renal US, urinalysis w/ micro, UPCR and FENa -- Monitor I&O's, PRP -- Hold IVF. Patient is orally hydrating (2) CKD (chronic kidney disease) stage 3, GFR 30-59 ml/min: -- Baseline creatinine has been 1.6. Renal impairment is on the basis of DM, HTN, obesity (3) Pulmonary edema: -- 08/05 Echocardiogram reviewed: Patient has preserved LVEF. RV and pulmonary vessels were not well visualized -- CXR 08/06: Mild pulmonary vascular congestion. No infiltrate or effusion -- Question whether dyspnea and wheezing is related to RAD. Consider consultation w/ Pulmonology (4) Morbid obesity with BMI of 60.0-69.9, adult: -- Patient likely has pulmonary HTN related to obesity hypoventilation syndrome -- Patient is pursuing gastric bypass at [facility] Subjective Mrs. Arellano was seen & examined in her hospital room this morning. She was breathing comfortably on O2 at 2 L / min NC. Mrs. Arellano c/o wheezing but denies productive cough, angina or uremic symptoms. Constitutional: + fever Physical Exam 2 Vital Signs (Past 24 Hours): Last Vital Signs Temp 36.5 C 08/09/18 07:11 Pulse 59 L 08/09/18 08:00 Resp 18 08/09/18 07:22 BP 127/74 08/09/18 07:11 Pulse Ox 98 08/09/18 07:22 Constitutional: + obese Eyes: PERRL, conjunctivae normal, anicteric sclerae Neck: trachea midline, no thyromegaly + thick neck Respiratory: normal respiratory effort, lungs clear to auscultation Auscultation: + wheezes Cardiovascular: RRR, no murmur, no edema Extremities: + edema (1+ pretibial pitting edema) Gastrointestinal (Abdomen): normal bowel sounds, soft, nontender, no hepatosplenomegaly Percussion/Palpation: abdomen soft; abdomen nontender and no guarding Neurologic: PERRL, EOMI, accommodation nl, no face palsy, no dysarthria moves all extremities and awake Results & Data Laboratory Results Laboratory Tests 08/07/18 08/09/18 00:17 08:17 WBC 8.92 4.31 L Hgb 12.5 10.3 L Hct 40.2 33.6 L Plt Count 217 153 Laboratory Tests 08/09/18 08:17 Sodium 137 Potassium 4.1 Chloride 103 Carbon Dioxide 32 Anion Gap 2.0 L BUN 47 H Creatinine 3.15 H D Glucose 101 H Calcium 7.9 L Diagnostic Findings CXR 08/06/18: 1. Cardiomegaly with pulmonary vascular congestion. 2. No airspace consolidation or pleural effusion is identified.
--- NOTE | 2018-08-09 10:51 | Pharmacy Report ---
Glycemic Control Progress Note - Date of Service August 09, 2018 - Scope Glycemic Pharmacist consulted for glycemic control to write orders per [facility] inpatient glycemic control protocol. - Objective Accuchecks BSG(last 24 hours):: 08/08/18 08/08/18 08/08/18 11:26 16:37 20:25 Glucose POC Glucose 129 H 171 H 252 H 08/09/18 08/09/18 08/09/18 00:06 03:45 07:25 Glucose POC Glucose 177 H 104 H 92 08/09/18 08:17 Glucose 101 H POC Glucose - Recent Pertinent Medications The patient is currently receiving: * Basal insulin: Lantus 75 units every 24 hours in the morning * Correctional Insulin: Novolog Correction per scale ACHS Goal Range: Low 110 mg/dL - High 140 mg/dL Correction Factor: 10 mg/dL/unit * Prandial insulin: Per carb ratio of 1 unit per 3 grams CHO consumed - Outpatient [facility] Med[facility] S[facility] weekly Lantus 150 units in the evening Admelog CF of 5 and CR of 2 - Assessment & Plan ASSESSMENT: * See progress note from 08/08/18 for more background info, in short: * Pt receiving SQ basal bolus insulin regimen for hyperglycemia secondary to baseline DM (outpatient regimen on hold) and hypoxia (on Zosyn). * Patient is currently receiving an average of 91 units of insulin per day * 75 units of basal insulin * 16 units of prandial/correctional insulin * BSGs ranging 53 - 252 mg/dl over the past 24hrs * Changes needed to insulin regimen: * AM Fasting BSG = 92 mg/dl. This is in slightly below goal range for patient based on inpatient targets and co-morbidities. This may also be secondary to 150 units received on 08/07/18. Patient has significant kidney injury. Will continue basal insulin with lower dose available. * Post-prandial BSGs are in range therefore no changes needed to CF/CR. Patient now taking her own bolus. * Total daily dose = ~150 units. PLAN FOR INPATIENT GLYCEMIC CONTROL: * Continuing Lantus 75 units SQ hs (60 units if blood sugar under 160 mg/dL) * Continuing correction factor of 10 mg/dl/unit * Continuing carb ratio of 1 unit per 3 grams CHO consumed * Continuing goal range of Low 110 mg/dL - High 140 mg/dL RECOMMENDATIONS FOR DISCHARGE: * Patient's HbA1C relatively well controlled. Recommend continuing home regimen as long as patient does not have hypoglycemia at home. * Please note that the plan above was derived based on current level of insulin resistance and hospital stress. These recommendations are appropriate for inpatient admission only. Plan of care upon discharge will need to be reassessed to avoid potential outpatient hypo/hyperglycemia. Thank you.
--- NOTE | 2018-08-09 13:47 | XRay Report ---
XR chest 1V portable HISTORY: 57 years-old Female eval for progressive pneumonia acute shortness of breath with pneumonia COMPARISON: Chest radiographs 08/06/2018 TECHNIQUE: Portable AP view of the chest FINDINGS: Cardiac silhouette is enlarged, unchanged. Mild pulmonary vascular congestion without overt pulmonary edema. Calcification the thoracic aortic arch. Mild right hemidiaphragmatic elevation. Subsegmental bibasilar opacities are noted without pneumothorax or large pleural effusion. Degenerative changes ab out the spine and right shoulder. Left shoulder arthroplasty. IMPRESSION: 1. Cardiomegaly with mild pulmonary vascular congestion. 2. Bibasilar opacities are suggestive of atelectasis with pneumonitis also in the differential. The above report was generated using voice recognition software. It may contain grammatical, syntax o r spelling errors. Electronically signed by: Spencer Tracy M.D. 08/09/2018 1:46 PM
[2018-08-09] MEDS: CARBOHYDRATES FOR HYPOGLYCEMIA PO PRN (17:00)
--- NOTE | 2018-08-09 17:23 | Hospitalist Progress Note ---
Date of Service August 09, 2018 Assessment & Plan (1) Hypoxia: On a chronic basis associated with obesity hypoventilation syndrome and sleep apnea. Chest x-ray from 08/09 shows some mild pulmonary vascular congestion no overt pleural effusions or infiltrates Patient is being treated for reactive airway although no history of the same and very limited smoke exposure however clinically she examines like reactive airway Continuing treatment for initial pneumonia seen on presenting chest x-ray (2) Obesity hypoventilation syndrome: Obesity hypoventilation syndrome/sleep apnea--patient was intolerant of wearing her CPAP throughout the night Patient has had additional weight gain since last visit almost 7 kg. Upcoming schedule gastric bypass surgery has been rescheduled due to her recent hospitalizations Will have nocturnal oximetry to see if she requires oxygen at night at home and get this approved (3) Pneumonia: For possible right middle lobe infiltrate Xopenex Atrovent nebulizer every 6 hours while awake. Adding prednisone on adding Brovana on 08/09 Continue on Zosyn 4.5 g renally dose (4) CKD (chronic kidney disease) stage 3, GFR 30-59 ml/min: Creatinine has increased with diuretic therapy being managed by nephrology She has intermittently been on Lasix in the past for fluid retention, the degree of elevation of her renal function supports that this is mostly edema from high right-sided heart pressures (5) Morbid obesity with BMI of 60.0-69.9, adult: She has gained approximately 7 kg since last admission on 07/23/18 (6) Obstructive sleep apnea on CPAP: Patient will use her home BiPAP unit for bedtime. Patient did not tolerate BiPAP enough to qualify for nocturnal sleep study we will try just with plain oxygen on 08/09 (7) Anxiety and depression: Controlled with buspirone, Lexapro, Ativan and trazodone. (8) Diabetes: PT did have low glucose on insulin glargine, this was decreased from home bedtime dosing Placed on Accu-Cheks before meals and at bedtime with NovoLog coverage per scale (9) Hyperlipemia: Continue atorvastatin 80 mg at bedtime (10) Hypothyroidism: stable on levothyroxine sodium 50 mcg daily Subjective Patient has persistent shortness of breath she does have some expiratory coarse wheezes heard. There is no focal loss there is no rales were heard earlier she is being treated for pneumonia he is continued to suffer from acute kidney injury she says she had a better night last night wearing oxygen overnight but she cannot tolerate her BiPAP Review of Systems ROS: Patient is morbidly obese and uncomfortable with her body weight No double vision blurry vision No problems with speech or swallowing No palpitations, chest pain or pressure Persistent shortness of breath and dyspnea with exertion No abdominal pain nausea vomiting diarrhea No burning urine urine frequency or changes in color No focal joint pain or muscle pain persistent lower extremity swelling No skin rashes or oral lesions No unusual bruising or bleeding No focused back pain or numbness or loss of strength No changes in memory or confusion Physical Exam 2 Vital Signs (Past 24 Hours): Last Vital Signs Temp 36.6 C 08/09/18 10:43 Pulse 75 08/09/18 10:43 Resp 18 08/09/18 14:27 BP 133/73 08/09/18 10:43 Pulse Ox 73 L 08/09/18 14:27 The patient appeared morbidly obese and uncomfortable Vital signs as documented. Head exam is unremarkable. normocephalic, atraumatic Neck is without easily assessable jugular venous distension, thyromegaly, or lymphademopathy Lungs are coarse bilateral with some rhonchi and scant expiratory wheezing Cardiac exam reveals Rhythm is regular. First and second heart sounds normal. Abdominal exam reveals normal bowel sounds, no masses, no organomegaly Extremities are moderately edematous chronic venous stasis changes and both pedal pulses are present but faint Neurologic exam is A&Ox3, no focal deficits, strength is equal bilateral Psychologically seems both anxious and depressed
[2018-08-09] MEDS: ARFORMOTEROL TART 15MCG/2ML VIAL INH SCH (20:49)
[2018-08-09] MEDS: ZINC SULFATE 220 MG CAPSULE PO SCH (21:11)
[2018-08-09] MEDS: ATORVASTATIN 40 MG TAB PO SCH (21:11)
--- NOTE | 2018-08-09 21:27 | Ultrasound Report ---
US renal/blad retro comp HISTORY: 57 years-old Female PATY acute kidney injury COMPARISON: CTA of the chest 12/30/2017 TECHNIQUE: Multiple real-time sonographic images of the kidneys and urinary bladder were obtained ass essing grayscale appearance and color flow FINDINGS: Study is limited secondary to patient body habitus. The right kidney measures 12.8 cm in length and is unremarkable without hydronephrosis, renal calculi or suspicious mass lesions. Cortical medullary differentiation appears preserved. The left kidney me asures 11.9 cm in length and is also unremarkable without renal calculi, hydronephrosis or suspicious mass lesion. Urinary bladder is not diagnostically visualized. Visualized liver demonstrates suggest ed hepatic steatosis. IMPRESSION: 1. Very limited study secondary to patient body habitus. 2. Unremarkable sonographic appearance of the bilateral kidneys without renal calculi or hydronephros is identified. 3. Nonvisualization of the urinary bladder. The above report was generated using voice recognition software. It may contain grammatical, syntax o r spelling errors. Electronically signed by: Spencer Tracy M.D. 08/09/2018 9:26 PM
[2018-08-09] MEDS: INSULIN GLARGINE 100 UNIT/ML VIAL SQ SCH (21:31)
[2018-08-09] MEDS: TRAZODONE HCL 50 MG TAB PO PRN (21:46)
[2018-08-10] MEDS: guaiFENesin SUGAR FREE 200 MG/10 ML UDC PO PRN ×4 (00:38→21:31)
[2018-08-10] MEDS: IPRATROPIUM BROMIDE NEB SOLN 0.02% 2.5 ML VIAL INH SCH ×4 (01:45→19:08)
[2018-08-10] MEDS: LEVALBUTEROL 1.25MG/0.5ML NEB INH SCH ×4 (01:46→19:08)
[2018-08-10] MEDS: ACETAMINOPHEN 325 MG TAB PO PRN (03:35)
[2018-08-10] MEDS: LEVOTHYROXINE SODIUM 50 MCG TABLET PO SCH (06:07)
[2018-08-10] MEDS: BUDESONIDE 0.5 MG/2 ML VIAL (PULMICORT) NEB SCH (06:57)
[2018-08-10] MEDS: ARFORMOTEROL TART 15MCG/2ML VIAL INH SCH ×2 (06:58→19:08)
[2018-08-10] MEDS: INSULIN LISPRO 100 UNIT/ML SC SCH ×4 (08:31→20:29)
[2018-08-10] MEDS: MAGNESIUM OXIDE 400 MG TAB PO SCH (08:32)
[2018-08-10] MEDS: POTASSIUM CHLORIDE 10 MEQ TABCR PO SCH (08:32)
[2018-08-10] MEDS: METOPROLOL SUCC 50MG EXT REL TAB PO SCH (08:32)
[2018-08-10] MEDS: ASPIRIN 81 MG ECTAB PO SCH (08:32)
[2018-08-10] MEDS: ESCITALOPRAM OXALATE 20 MG TAB PO SCH (08:32)
[2018-08-10] MEDS: FENOFIBRATE NANOCRYSTALLIZED 145 MG TABLET PO SCH (08:33)
[2018-08-10] MEDS: BusPIRone 15 MG TAB PO SCH ×2 (08:34→20:32)
[2018-08-10] MEDS: LORazepam 1 MG TAB PO SCH ×2 (08:36→20:26)
[2018-08-10 08:56] LABS: BUN Creatinine Ratio 18.5 (10-20); Calcium 8.2 mg/dl (8.5-10.1); Est GFR (African American) 19.9; Est GFR (Non-African American) 17.2; Potassium 4.4 mmol/L (3.5-5.1)
[2018-08-10] MEDS ORDERED: predniSONE 50 MG TAB PO SCH ×2 (09:00)
--- NOTE | 2018-08-10 09:28 | Nephrology Progress Note ---
Date of Service August 10, 2018 Assessment & Plan (1) Acute kidney injury: -- Clinically suspect PATY due to intravascular volume contraction. Creatinine is now trending down -- Continue to hold diuretics. Patient is hydrating via oral intake -- Urine microscopy was negative for hematuria or casts -- Urine Na was not completed. Will reorder. UPCR 4.5. Urinalysis + for glucose -- Renal US was negative for hydronephrosis. Bladder could not be visualized due to body habitus -- Monitor I&O's, PRP (2) CKD (chronic kidney disease) stage 3, GFR 30-59 ml/min: -- Baseline creatinine has been 1.6. Renal impairment is on the basis of DM, HTN, obesity (3) Pulmonary edema: -- 08/05 Echocardiogram reviewed: Patient has preserved LVEF. RV and pulmonary vessels were not well visualized -- CXR 08/09: Mild pulmonary vascular congestion. Bibasilar opacities c/w atelectasis or pneumonitis -- Question whether dyspnea and wheezing is related to RAD. CXR now w/ possible pneumonitis. Recommend consultation w/ Pulmonology (4) Morbid obesity with BMI of 60.0-69.9, adult: -- Patient likely has pulmonary HTN related to obesity hypoventilation syndrome -- Patient is pursuing gastric bypass at [facility] Subjective Mrs. Arellano was seen & examined in her hospital room this morning. She was breathing comfortably on O2 at 2 L / min NC. Mrs. Arellano c/o wheezing but denies productive cough, angina or uremic symptoms. Constitutional: + fever Physical Exam 2 Vital Signs (Past 24 Hours): Last Vital Signs Temp 36.6 C 08/10/18 08:00 Pulse 71 08/10/18 08:00 Resp 18 08/10/18 08:00 BP 145/72 H 08/10/18 08:00 Pulse Ox 96 08/10/18 08:00 Constitutional: + obese Eyes: PERRL, conjunctivae normal, anicteric sclerae Neck: trachea midline, no thyromegaly + thick neck Respiratory: normal respiratory effort, lungs clear to auscultation Auscultation: + wheezes Cardiovascular: RRR, no murmur, no edema Extremities: + edema (1+ pretibial pitting edema) Gastrointestinal (Abdomen): normal bowel sounds, soft, nontender, no hepatosplenomegaly Percussion/Palpation: abdomen soft; abdomen nontender and no guarding Neurologic: PERRL, EOMI, accommodation nl, no face palsy, no dysarthria moves all extremities and awake Results & Data Laboratory Results Laboratory Tests 05/21/18 05/21/18 08/09/18 11:19 11:19 08:17 WBC 4.31 L Hgb 10.3 L Hct 33.6 L Plt Count 153 Sodium Potassium Chloride Carbon Dioxide BUN Creatinine Glucose Urine Color Yellow Urine Appearance Clear Urine pH 5.5 Ur Specific [place] 1.016 Urine Protein 3+ H Urine Glucose (UA) 2+ H Urine Ketones Negative Urine Blood Trace H Urine Nitrite Negative Urine WBC (Auto) 5-10 H Urine RBC (Auto) 0-4 U Hyaline Cast (Auto) 1-5 U Epithel Cells (Auto) >30 H Protein/Creatinin Ratio 4.5 H 08/10/18 08:06 WBC Hgb Hct Plt Count Sodium 137 Potassium 4.4 Chloride 103 Carbon Dioxide 31 BUN 53 H Creatinine 2.88 H Glucose 94 Urine Color Urine Appearance Urine pH Ur Specific [place] Urine Protein Urine Glucose (UA) Urine Ketones Urine Blood Urine Nitrite Urine WBC (Auto) Urine RBC (Auto) U Hyaline Cast (Auto) U Epithel Cells (Auto) Protein/Creatinin Ratio Diagnostic Findings Renal US 08/09/18: 1. Very limited study secondary to patient body habitus. 2. Unremarkable sonographic appearance of the bilateral kidneys without renal calculi or hydronephrosis identified. 3. Nonvisualization of the urinary bladder. CXR 08/09/18: Cardiac silhouette is enlarged, unchanged. Mild pulmonary vascular congestion without overt pulmonary edema. Calcification the thoracic aortic arch. Mild right hemidiaphragmatic elevation. Subsegmental bibasilar opacities are noted without pneumothorax or large pleural effusion. Degenerative changes about the spine and right shoulder. Left shoulder arthroplasty. IMPRESSION: 1. Cardiomegaly with mild pulmonary vascular congestion. 2. Bibasilar opacities are suggestive of atelectasis with pneumonitis also in the differential.
[2018-08-10] MEDS: PIPERACILLIN/TAZOBACTAM 4.5 GM in DEXTROSE 5% 100 ML IV SCH (09:55)
[2018-08-10] MEDS: POLYETHYLENE (MIRALAX) 17 GM PACK PO PRN (13:14)
--- NOTE | 2018-08-10 14:28 | Pharmacy Report ---
Glycemic Control Progress Note - Date of Service August 10, 2018 - Scope Glycemic Pharmacist consulted for glycemic control to write orders per [facility] inpatient glycemic control protocol. - Objective Accuchecks BSG(last 24 hours):: 08/09/18 08/09/18 08/09/18 16:51 16:52 17:05 Glucose POC Glucose 56 L* 59 L* 58 L* 08/09/18 08/09/18 08/09/18 17:27 20:30 23:12 Glucose POC Glucose 74 73 73 08/10/18 08/10/18 08/10/18 03:15 07:33 08:06 Glucose 94 POC Glucose 105 H 94 08/10/18 11:18 Glucose POC Glucose 124 H - Recent Pertinent Medications The patient is currently receiving: * Basal insulin: Lantus 40 units every 24 hours in the evening * Correctional Insulin: Novolog Correction per scale ACHS Goal Range: Low 110 mg/dL - High 140 mg/dL Correction Factor: 15 mg/dL/unit * Prandial insulin: Per carb ratio of 1 unit per 5 grams CHO consumed - Outpatient Anti-Diabetic Meds Trulicity SQ weekly Lantus 150 units SQ HS Admelog CF of 5 and CR of 2 - Assessment & Plan ASSESSMENT: * See progress note from 08/08/18 for more background info, in short: * Pt receiving SQ basal bolus insulin regimen for hyperglycemia secondary to baseline DM (outpatient regimen on hold), pulmonary infection on Zosyn. * Patient is currently receiving an average of 98 units of insulin per day * 40 units of basal insulin * 58 units of prandial/correctional insulin * BSGs ranging 56 - 107 mg/dl over the past 24hrs * Changes needed to insulin regimen: * AM Fasting BSG = 94 mg/dl. This is below goal range for patient based on inpatient targets and co-morbidities. Patient received only 40 units of Lantus last night. Will not schedule a scale with dose higher than 40 units tonight because patient has prednisone ordered which will raise the blood sugars throughout the day. Concern for increased insulin sensitivity with kidney dysfunction. Will continue with 40 units of Lantus and lower dose available if blood sugars do not respond. * Post-prandial BSGs are in range therefore no changes needed to CF/CR. Novolog parameters loosened yesterday evening will continue this even though patient on prednisone now. Not certain how BSGs will react. If elevated tomorrow consider addition of NPH. * Total daily dose = ~75-100 units PLAN FOR INPATIENT GLYCEMIC CONTROL: * Continuing Lantus 40 units SQ HS (30 units if blood sugar under 140 mg/dL) * Continuing correction factor of 15 mg/dl/unit * Continuing carb ratio of 1 unit per 5 grams CHO consumed * Continuing goal range of Low 110 mg/dL - High 140 mg/dL RECOMMENDATIONS FOR DISCHARGE: * Patient's HbA1C is becoming better controlled. Consider continuing home regimen as long as she does not have any problems with hypoglycemia. * Please note that the plan above was derived based on current level of insulin resistance and hospital stress. These recommendations are appropriate for inpatient admission only. Plan of care upon discharge will need to be reassessed to avoid potential outpatient hypo/hyperglycemia. Thank you.
--- NOTE | 2018-08-10 15:31 | Hospitalist Progress Note ---
Date of Service August 10, 2018 Assessment & Plan (1) Hypoxia: On a chronic basis seemingly unexplained in past unless from pulmonary htn and shunting with history of TRUMAN and non compliance with nocutrnal postive pressure ventilation Chest x-ray from 08/09 shows some mild pulmonary vascular congestion no overt pleural effusions or infiltrates Patient is being treated for reactive airway although no history of the same and very limited smoke exposure however clinically she examines like reactive airway Continuing treatment for initial pneumonia seen on presenting chest x-ray, de escalating antibiotics 08/10 (2) Obesity hypoventilation syndrome: Obesity hypoventilation syndrome/sleep apnea--patient was intolerant of wearing her CPAP throughout the night Patient has had additional weight gain since last visit almost 7 kg. Upcoming schedule gastric bypass surgery has been rescheduled due to her recent hospitalizations nocturnal oximetry to see if she requires oxygen at night at home and get this approved (3) Pneumonia: For possible right middle lobe infiltrate Xopenex Atrovent nebulizer every 6 hours while awake. added Brovana on 08/09, transitioned to iv steorids 08/10, consider pulmonary consult if no imrovement and consider CTA if Cr allows (4) CKD (chronic kidney disease) stage 3, GFR 30-59 ml/min: Creatinine has increased with diuretic therapy being managed by nephrology She has intermittently been on Lasix in the past for fluid retention, the degree of elevation of her renal function supports that this is mostly edema from high right-sided heart pressures (5) Morbid obesity with BMI of 60.0-69.9, adult: She has gained approximately 7 kg since last admission on 07/23/18 (6) Obstructive sleep apnea on CPAP: Patient has challenges using home BiPAP unit for bedtime. Patient did not tolerate BiPAP enough to qualify for nocturnal sleep study we will try just with plain oxygen (7) Anxiety and depression: Controlled with buspirone, Lexapro, Ativan and trazodone. (8) Diabetes: PT did have low glucose on insulin glargine, this was decreased from home bedtime dosing(perhaps due to renal function potentiating insulin affects) Placed on Accu-Cheks before meals and at bedtime with NovoLog coverage per scale (9) Hyperlipemia: Continue atorvastatin 80 mg at bedtime (10) Hypothyroidism: stable on levothyroxine sodium 50 mcg daily Subjective Patient has persistent shortness of breath her exam sounds more like is an asthmatic exacerbation. She is on inhalers at home but states she does not have a history of any asthma. She is attempted to use oral steroids on 08/09 without much success will transition to intravenous steroids of 08/10 if you have no improvement may consider pulmonary consultation. She is on Xopenex ipratropium and Brovana nebulized medications currently. Her renal function prohibits us from doing a CT scan for pulmonary embolism at this time Review of Systems ROS: No double vision blurry vision No problems with speech or swallowing No palpitations, chest pain or pressure No dyspnea on exertion coarse breathing heard at rest No abdominal pain nausea vomiting diarrhea changes in appetite or weight No burning urine urine frequency or changes in color No focal joint pain or muscle pain lower extremity edema Lower extremity changes of chronic venous stasis No unusual bruising or bleeding No focused back pain or numbness or loss of strength No changes in memory or confusion Physical Exam 2 Vital Signs (Past 24 Hours): Last Vital Signs Temp 37.0 C 08/10/18 11:00 Pulse 79 08/10/18 14:16 Resp 16 08/10/18 14:16 BP 163/81 H 08/10/18 11:00 Pulse Ox 96 08/10/18 14:16 the patient appeared well nourished and normally developed. Morbidly obese Vital signs as documented. Head exam is unremarkable. normocephalic, atraumatic Neck is without jugular venous distension, thyromegaly, or lymphademopathy Lungs are coarse breath sounds in all lung walter no overt volume or air loss scant wheezing Cardiac exam reveals Rhythm is regular. First and second heart sounds normal. Abdominal exam reveals normal bowel sounds, no masses, no organomegaly Extremities are moderately edematous and both pedal pulses are present Neurologic exam is A&Ox3, no focal deficits, strength is equal bilateral Psychologically seems anxious Skin lower extremity changes consistent with chronic venous stasis
[2018-08-10] MEDS: AMOXICILLIN/CLAVULANATE 500 MG TAB PO SCH (16:44)
[2018-08-10] MEDS: HEPARIN SOD 5,000 UNIT/0.5 ML VIAL SQ SCH (20:26)
[2018-08-10] MEDS: OXYCODONE/ACETAMINOPHEN 10-325 TAB PO PRN (20:26)
[2018-08-10] MEDS: methylPREDNISolone 40 MG in SYRINGE 0 ML IV SCH (20:27)
[2018-08-10] MEDS: INSULIN GLARGINE 100 UNIT/ML VIAL SQ SCH (20:31)
[2018-08-10] MEDS: ATORVASTATIN 40 MG TAB PO SCH (20:33)
[2018-08-10] MEDS: ZINC SULFATE 220 MG CAPSULE PO SCH (20:34)
[2018-08-10] MEDS: TRAZODONE HCL 50 MG TAB PO PRN (20:57)
[2018-08-11] MEDS: IPRATROPIUM BROMIDE NEB SOLN 0.02% 2.5 ML VIAL INH SCH ×4 (02:13→20:11)
[2018-08-11] MEDS: LEVALBUTEROL 1.25MG/0.5ML NEB INH SCH ×4 (02:13→20:11)
[2018-08-11] MEDS: LEVOTHYROXINE SODIUM 50 MCG TABLET PO SCH (05:54)
[2018-08-11 07:08] LABS: BUN Creatinine Ratio 20.3 (10-20); Calcium 8.3 mg/dl (8.5-10.1); Creatinine Clr Calc Pharmacy 40.1 ml/min; Est GFR (African American) 22.1; Est GFR (Non-African American) 19.1; Potassium 5.8 mmol/L (3.5-5.1)
[2018-08-11] MEDS: ARFORMOTEROL TART 15MCG/2ML VIAL INH SCH ×2 (07:34→20:10)
[2018-08-11] MEDS ORDERED: SODIUM POLYSTYRENE SULFONATE 30 GM/120 ML UDP PO ONE (08:18)
[2018-08-11] MEDS ORDERED: SODIUM POLYSTYRENE SULFONATE 15G/60ML SUSP PO ONE (08:45)
[2018-08-11] MEDS: BusPIRone 15 MG TAB PO SCH ×2 (08:53→21:48)
[2018-08-11] MEDS: MAGNESIUM OXIDE 400 MG TAB PO SCH (08:53)
[2018-08-11] MEDS: LORazepam 1 MG TAB PO SCH ×2 (08:53→21:38)
[2018-08-11] MEDS: AMOXICILLIN/CLAVULANATE 500 MG TAB PO SCH ×2 (08:53→17:27)
[2018-08-11] MEDS: ASPIRIN 81 MG ECTAB PO SCH (08:53)
[2018-08-11] MEDS: HEPARIN SOD 5,000 UNIT/0.5 ML VIAL SQ SCH ×2 (08:54→21:49)
[2018-08-11] MEDS: ESCITALOPRAM OXALATE 20 MG TAB PO SCH (08:54)
[2018-08-11] MEDS: methylPREDNISolone 40 MG in SYRINGE 0 ML IV SCH ×2 (08:54→21:43)
[2018-08-11] MEDS: FENOFIBRATE NANOCRYSTALLIZED 145 MG TABLET PO SCH (08:54)
[2018-08-11] MEDS: METOPROLOL SUCC 50MG EXT REL TAB PO SCH (08:54)
[2018-08-11] MEDS: INSULIN LISPRO 100 UNIT/ML SC SCH ×4 (08:55→23:56)
[2018-08-11] MEDS ORDERED: INSULIN GLARGINE 100 UNIT/ML VIAL SQ SCH (09:00)
[2018-08-11] MEDS: guaiFENesin SUGAR FREE 200 MG/10 ML UDC PO PRN ×2 (09:24→16:44)
--- NOTE | 2018-08-11 11:09 | Pharmacy Report ---
Pharmacy Glycemic Short Note 2 - Date of Service August 11, 2018 - Glycemic Short BSG Results (Last 24 hours): 08/10/18 08/10/18 08/10/18 11:18 16:53 20:12 Glucose POC Glucose 124 H 221 H 287 H 08/10/18 08/11/18 08/11/18 23:33 01:55 05:45 Glucose 221 H POC Glucose 241 H 195 H 08/11/18 07:28 Glucose POC Glucose 210 H OUTPATIENT ANTIDIABETIC REGIMEN: Trulicity SQ weekly Lantus 150 units SQ HS Admelog CF of 5 and CR of 2 ASSESSMENT: * See progress note from 08/08/18 for more background info, in short: * Pt receiving SQ basal bolus insulin regimen for hyperglycemia secondary to baseline DM (outpatient regimen on hold), pulmonary infection on Zosyn, and steroids. Pt was given a one time dose of prednisone 50 mg yesterday morning, then started on solu medrol 40 mg IV q12 last evening. * Patient is received 93 units of insulin yesterday * 40 units of basal insulin * 53 units of prandial/correctional insulin * Changes needed to insulin regimen: * AM Fasting BSG = 210 mg/dl. This is likely due to initiation of high dose IV steroids. She may require Lantus dosed BID now. I have ordered a one time dose of 20 units for this AM, then dose per scale. * Post-prandial BSGs have been elevated. I will tighten Novolog CF and CR while on steroids. PLAN FOR INPATIENT GLYCEMIC CONTROL: * Basal insulin * Lantus 20 units SQ given x 1 this am, then Lantus per scale SQ HS * 30 units for BSG less than 140 mg/dL * 40 units for BSG 140 mg/dL or greater * Bolus insulin - tighten * NovoLog per scale ACHS or Q6hrs while NPO * Goal Range: Low 110 mg/dL - High 140 mg/dL * Correction Factor: 10 mg/dL/unit * Nutritional / Prandial insulin per carb ratio of 1 unit per 3 grams CHO consumed * Add overnight checks for today RECOMMENDATIONS FOR DISCHARGE: * Patient's HbA1C is becoming better controlled. Consider continuing home regimen as long as she does not have any problems with hypoglycemia.
--- NOTE | 2018-08-11 12:00 | Nephrology Progress Note ---
Date of Service August 11, 2018 Assessment & Plan (1) Acute kidney injury: -- Clinically suspect PATY due to intravascular volume contraction. Creatinine slowly trending down -- Continue to hold diuretics. Patient is hydrating via oral intake -- recommend pulmonary consultation -- (2) CKD (chronic kidney disease) stage 3, GFR 30-59 ml/min: -- Baseline creatinine has been 1.6. Renal impairment is on the basis of DM, HTN, obesity (3) Pulmonary edema: -- 08/05 Echocardiogram reviewed: Patient has preserved LVEF. RV and pulmonary vessels were not well visualized -- CXR 08/09: Mild pulmonary vascular congestion. Bibasilar opacities c/w atelectasis or pneumonitis -- (4) Morbid obesity with BMI of 60.0-69.9, adult: -- Patient likely has pulmonary HTN related to obesity hypoventilation syndrome -- Patient is pursuing gastric bypass at [facility] Jeni Guthrie was seen & examined in her hospital room this morning. She was breathing fine on O2 at 2 L / min NC although she feels she still not at her baseline.. Has been off of diuretics. Renal function slightly improved, electrolyte acceptable. Constitutional: + fever Physical Exam 2 Vital Signs (Past 24 Hours): Last Vital Signs Temp 36.9 C 08/11/18 11:46 Pulse 61 08/11/18 11:46 Resp 18 08/11/18 11:46 BP 182/74 H 08/11/18 11:46 Pulse Ox 97 08/11/18 11:46 Constitutional: WD/WN, vitals as above Respiratory: Auscultation: + diminished lung sounds and + wheezes Cardiovascular: Rate/Rhythm: regular rate and regular rhythm Heart Sounds: normal S1 and normal S2 Extremities: + edema
--- NOTE | 2018-08-11 17:09 | Hospitalist Progress Note ---
Date of Service August 11, 2018 Assessment & Plan (1) Hypoxia: On a chronic basis seemingly unexplained in past unless from pulmonary htn and shunting with history of TRUMAN and non compliance with nocutrnal postive pressure ventilation Chest x-ray from 08/09 shows some mild pulmonary vascular congestion no overt pleural effusions or infiltrates Patient is being treated for reactive airway although no history of the same and very limited smoke exposure however clinically she examines like reactive airway Continuing treatment for initial pneumonia seen on presenting chest x-ray, de escalating antibiotics 08/10 still requiring 2L NC, feels better with oxygen on will consult pulmonology at this point since she is complicated picture (2) Obesity hypoventilation syndrome: Obesity hypoventilation syndrome/sleep apnea--patient was intolerant of wearing her CPAP throughout the night Patient has had additional weight gain since last visit almost 7 kg. Upcoming schedule gastric bypass surgery has been rescheduled due to her recent hospitalizations nocturnal oximetry to see if she requires oxygen at night at home and get this approved consult pulmonology, she was supposed to see as outpatient but only saw sleep medicine prior to being admitted again (3) Pneumonia: For possible right middle lobe infiltrate continue Augmentin Xopenex Atrovent nebulizer every 6 hours while awake. added Brovana on 08/09, transitioned to iv steorids 08/10 (4) CKD (chronic kidney disease) stage 3, GFR 30-59 ml/min: Creatinine has increased with diuretic therapy being managed by nephrology She has intermittently been on Lasix in the past for fluid retention, the degree of elevation of her renal function supports that this is mostly edema from high right-sided heart pressures Cr improved slightly, d/w Dr. Kang, continue to hold diuretics (5) Morbid obesity with BMI of 60.0-69.9, adult: She has gained approximately 7 kg since last admission on 07/23/18 (6) Obstructive sleep apnea on CPAP: Patient has challenges using home BiPAP unit for bedtime. Patient did not tolerate BiPAP enough to qualify for nocturnal sleep study we will try just with plain oxygen (7) Anxiety and depression: Controlled with buspirone, Lexapro, Ativan and trazodone. (8) Diabetes: PT did have low glucose on insulin glargine, this was decreased from home bedtime dosing(perhaps due to renal function potentiating insulin affects) Placed on Accu-Cheks before meals and at bedtime with NovoLog coverage per scale (9) Hyperlipemia: Continue atorvastatin 80 mg at bedtime (10) Hypothyroidism: stable on levothyroxine sodium 50 mcg daily Subjective patient feels like her breathing is the same, no better or worse she is eating well using CPAP when sleeping no chest pain or pressure today discussed labs, Cr improved slightly discussed with Dr. Kang, continue to hold diuretics but will need them in future reviewed prior records, echo showed preserved LV EF however, right ventricle and right atrium not well visualized to try to determine right sided pressures discussed with patient that she is likely experiencing symptoms of cor pulmonale given her long standing untreated TRUMAN, hypoventilation she would like to see a director of market intelligence while here she said she saw Dr. Crystal but he only deals with sleep medicine her main concern is getting well to the point where she can get gastric bypass to start losing weight Review of Systems All systems reviewed & are unremarkable except as noted in HPI & below Constitutional: + fatigue and + weakness; no fever and no sweats Respiratory: + cough, + chest congestion, + dyspnea, + dyspnea on exertion, + snoring and + wheezing; no hemoptysis, no pain on inspiration, no pain with cough and no sputum production Cardiovascular: + edema; no chest pain, no dyspnea, no orthopnea and no syncope Gastrointestinal: no abdominal pain, no nausea, no vomiting, no constipation and no diarrhea/loose stools Genitourinary (Female): + vaginal discharge (yeast infection); no dysuria Physical Exam 2 Vital Signs (Past 24 Hours): Last Vital Signs Temp 36.8 C 08/11/18 15:13 Pulse 64 08/11/18 16:09 Resp 20 08/11/18 15:13 BP 178/86 H 08/11/18 15:13 Pulse Ox 97 08/11/18 15:13 Constitutional: WD/WN, vitals as above + morbidly obese Eyes: PERRL, conjunctivae normal, anicteric sclerae ENMT: external ear and nose normal, oropharynx normal Neck: trachea midline, no thyromegaly Respiratory: normal respiratory effort; no respiratory distress Auscultation: + diminished lung sounds and + wheezes (end exhalation, more prominent in posterior lobes); no crackles, no rales and no rhonchi Cardiovascular: Rate/Rhythm: regular rate and regular rhythm Heart Sounds: normal S1 and normal S2; no murmur Vessels: + JVD Extremities: normal capillary refill and + pedal edema Gastrointestinal (Abdomen): normal bowel sounds, soft, nontender, no hepatosplenomegaly Musculoskeletal: no cyanosis or clubbing, extremities motor strength 5/5 Skin: no rashes, warm and dry Neurologic: patellar DTR's 2+ bilat, sensation intact and PERRL, EOMI, accommodation nl, no face palsy, no dysarthria Lymphatic: no cervical or axillary lymphadenopathy Results & Data Laboratory Results Laboratory Results - last 24 hr 08/11/18 08/11/18 08/11/18 01:55 05:45 07:28 Sodium 138 Potassium 5.8 H D Chloride 105 Carbon Dioxide 30 Anion Gap 3.0 BUN 54 H Creatinine 2.64 H Est Cr Clr Drug Dosing 40.1 Est GFR ( Amer) 22.1 Est GFR (Non-Af Amer) 19.1 BUN/Creatinine Ratio 20.3 H Glucose 221 H POC Glucose 195 H 210 H Calcium 8.3 L 08/11/18 08/11/18 08/11/18 11:35 16:32 20:38 Sodium Potassium Chloride Carbon Dioxide Anion Gap BUN Creatinine Est Cr Clr Drug Dosing Est GFR ( Amer) Est GFR (Non-Af Amer) BUN/Creatinine Ratio Glucose POC Glucose 205 H 193 H 191 H Calcium Medications Administered Current Inpatient Medications Acetaminophen (Tylenol) 650 mg PO Q4H PRN PRN Reason: Pain or Fever Stop: 09/06/18 04:20 Last Admin: 08/10/18 03:35 Dose: 650 mg Al Hydrox/Mg Hydrox/Simethicone (Maalox) 15 ml PO Q4H PRN PRN Reason: Dyspepsia Stop: 09/06/18 04:20 Amoxicillin/Clavulanate Potassium (Augmentin 500mg) 1 tab PO BIDM [facility]; Protocol Stop: 08/14/18 16:59 Last Admin: 08/11/18 17:27 Dose: 1 tab Arformoterol Tartrate (Brovana Neb) 15 mcg INH BIDR [facility] Stop: 09/08/18 19:59 Last Admin: 08/11/18 20:10 Dose: 15 mcg Aspirin (Ecotrin Ectab) 81 mg PO DAILY [facility] Stop: 09/06/18 08:59 Last Admin: 08/11/18 08:53 Dose: 81 mg Atorvastatin Calcium (Lipitor) 80 mg PO HS JONHATHON Stop: 09/06/18 20:59 Last Admin: 08/11/18 21:44 Dose: 80 mg Buspirone HCl (Buspar) 30 mg PO BID [facility] Stop: 09/06/18 08:59 Last Admin: 08/11/18 21:48 Dose: 30 mg Clonidine HCl (Catapres) 0.1 mg PO Q8 PRN PRN Reason: Blood Pressure - High Stop: 09/09/18 15:54 Last Admin: 08/11/18 21:38 Dose: 0.1 mg Dextrose (Dextrose 50%) 25 - 50 ml IV UD PRN; Protocol PRN Reason: Hypoglycemia Protocol Stop: 09/06/18 04:20 Ergocalciferol (Vitamin D2) 50,000 units PO Sa@0700 JOHNATHON Stop: 09/08/18 09:59 Last Admin: 08/09/18 09:29 Dose: 50,000 units Escitalopram Oxalate (Lexapro) 20 mg PO DAILY JOHNATHON Stop: 09/06/18 08:59 Last Admin: 08/11/18 08:54 Dose: 20 mg Fenofibrate (Tricor) 145 mg PO DAILY JOHNATHON Stop: 09/06/18 08:59 Last Admin: 08/11/18 08:54 Dose: 145 mg Fluconazole (Diflucan) 100 mg PO QAM [facility] Stop: 08/21/18 16:59 Last Admin: 08/11/18 17:39 Dose: 100 mg Glucagon (Glucagen) 1 mg SQ UD PRN; Protocol PRN Reason: Hypoglycemia Protocol Stop: 09/06/18 04:20 Glucose (Glucose 40%) 15 - 30 gm PO UD PRN; Protocol PRN Reason: Hypoglycemia Protocol Stop: 09/06/18 04:20 Glucose (Dex4 Glucose) 4 - 8 tabs PO UD PRN; Protocol PRN Reason: Hypoglycemia Protocol Stop: 09/06/18 04:20 Guaifenesin (Robitussin Sugar Free) 200 mg PO Q6H PRN PRN Reason: Cough Stop: 09/06/18 05:53 Last Admin: 08/11/18 16:44 Dose: 200 mg Heparin Sodium (Porcine) (Heparin Sodium (Porcine)) 5,000 units SQ Q12 JOHNATHON Stop: 09/09/18 20:59 Last Admin: 08/11/18 21:49 Dose: 5,000 units Methylprednisolone 40 mg/ (Syringe) 0.64 mls @ 1.5 mls/min IV Q12 JOHNATHON Stop: 09/09/18 20:59 Last Admin: 08/11/18 21:43 Dose: 1.5 mls/min Insulin Glargine (Lantus) 0 units SQ HS JOHNATHON; Protocol Stop: 09/08/18 20:59 Last Admin: 08/11/18 22:01 Dose: 40 units Ipratropium Downey (Atrovent 0.02% 0.5mg/2.5ml) 0.5 mg INH Q6R JOHNATHON Stop: 09/06/18 07:59 Last Admin: 08/11/18 20:11 Dose: Not Given Levalbuterol HCl (Xopenex 1.25mg/0.5ml Neb) 1.25 mg INH Q6R JOHNATHON Stop: 09/06/18 07:59 Last Admin: 08/11/18 20:11 Dose: Not Given Levothyroxine Sodium (Synthroid) 50 mcg PO DAILYBB JOHNATHON Stop: 09/06/18 06:29 Last Admin: 08/11/18 05:54 Dose: 50 mcg Lorazepam (Ativan) 1 mg PO AMHS [facility] Stop: 09/06/18 08:59 Last Admin: 08/11/18 21:38 Dose: 1 mg Magnesium Hydroxide (Milk Of Magnesia) 30 ml PO Q12H PRN PRN Reason: Constipation Stop: 09/06/18 04:20 Magnesium Oxide (Mag-Ox) 400 mg PO DAILY JOHNATHON Stop: 09/06/18 08:59 Last Admin: 08/11/18 08:53 Dose: 400 mg Metoprolol Succinate (Toprol Xl) 100 mg PO DAILY JOHNATHON Stop: 09/06/18 08:59 Last Admin: 08/11/18 08:54 Dose: 100 mg Miscellaneous (Carbohydrates For Hypoglycemia) 15 - 30 gm PO UD PRN PRN Reason: Hypoglycemia Treatment Stop: 09/06/18 04:20 Last Admin: 08/09/18 17:00 Dose: 15 gm Miscellaneous (Non-Formulary Medication) 0 ea SC ACHS [facility]; Protocol Stop: 09/07/18 20:59 Last Admin: 08/11/18 23:56 Dose: 6 ea Miscellaneous (Non-Formulary Medication) 0 ea SC 0000 JOHNATHON; Protocol Stop: 08/12/18 00:01 Miscellaneous (Order Awaiting Action) 1 ea N/A QAM [facility] Stop: 09/11/18 08:59 Miscellaneous Information (Consult Glycemic Management Pharmacy) 1 ea N/A UD PRN PRN Reason: Consult Stop: 09/07/18 18:52 Nitroglycerin (Nitrostat) 0.4 mg SL UD PRN PRN Reason: Chest Pain Stop: 09/06/18 04:20 Trulicity~Non- Formulary Patient's Own Med 1 ea SQ Mo@0900 [facility] Stop: 09/10/18 22:14 Last Admin: 08/11/18 23:57 Dose: 1 pen Ondansetron HCl (Zofran) 4 mg IV Q6H PRN PRN Reason: Nausea Stop: 09/06/18 05:53 Last Admin: 08/07/18 06:06 Dose: 4 mg Oxycodone/Acetaminophen (Percocet 10/325mg) 1 tab PO Q6H PRN PRN Reason: Pain Stop: 08/21/18 17:55 Last Admin: 08/11/18 21:39 Dose: 1 tab Polyethylene Glycol (Miralax Powder Packet) 17 gm PO DAILY PRN PRN Reason: Constipation Stop: 09/06/18 04:20 Last Admin: 08/10/18 13:14 Dose: 17 gm Potassium Chloride (Klor-Con M10) 10 meq PO DAILY JOHNATHON Stop: 09/06/18 08:59 Last Admin: 08/10/18 08:32 Dose: 10 meq Trazodone HCl (Desyrel) 50 mg PO HS PRN PRN Reason: Insomnia Stop: 09/06/18 04:20 Last Admin: 08/11/18 21:48 Dose: 50 mg Zinc Sulfate (Zinc Sulfate) 440 mg PO HS JOHNATHON Stop: 09/06/18 20:59 Last Admin: 08/11/18 21:43 Dose: 440 mg
[2018-08-11] MEDS: FLUCONAZOLE 100 MG TAB PO SCH (17:39)
[2018-08-11] MEDS: cloNIDine HCl 0.1 MG TAB PO PRN (21:38)
[2018-08-11] MEDS: OXYCODONE/ACETAMINOPHEN 10-325 TAB PO PRN (21:39)
[2018-08-11] MEDS: ZINC SULFATE 220 MG CAPSULE PO SCH (21:43)
[2018-08-11] MEDS: ATORVASTATIN 40 MG TAB PO SCH (21:44)
[2018-08-11] MEDS: TRAZODONE HCL 50 MG TAB PO PRN (21:48)
[2018-08-11] MEDS: INSULIN GLARGINE 100 UNIT/ML VIAL SQ SCH (22:01)
[2018-08-11] MEDS ORDERED: TRULICITY SQ SCH (22:15)
[2018-08-12] MEDS ORDERED: INSULIN LISPRO 100 UNIT/ML SC SCH
[2018-08-12] MEDS: IPRATROPIUM BROMIDE NEB SOLN 0.02% 2.5 ML VIAL INH SCH ×4 (01:55→19:31)
[2018-08-12] MEDS: LEVALBUTEROL 1.25MG/0.5ML NEB INH SCH ×4 (01:55→19:31)
[2018-08-12] MEDS: cloNIDine HCl 0.1 MG TAB PO PRN ×2 (04:12→11:55)
[2018-08-12] MEDS: guaiFENesin SUGAR FREE 200 MG/10 ML UDC PO PRN ×3 (04:20→18:11)
[2018-08-12] MEDS ORDERED: LORazepam 0.5 MG TAB PO ONE (04:53)
[2018-08-12] MEDS: LEVOTHYROXINE SODIUM 50 MCG TABLET PO SCH (05:32)
[2018-08-12 06:35] LABS: BUN Creatinine Ratio 22.9 (10-20); Calcium 8.4 mg/dl (8.5-10.1); Creatinine Clr Calc Pharmacy 46.8 ml/min; Est GFR (African American) 26.6; Potassium 5.6 mmol/L (3.5-5.1)
[2018-08-12] MEDS: ARFORMOTEROL TART 15MCG/2ML VIAL INH SCH ×2 (07:04→19:33)
[2018-08-12] MEDS ORDERED: INSULIN GLARGINE 100 UNIT/ML VIAL SQ SCH (09:00)
--- NOTE | 2018-08-12 09:51 | Nephrology Progress Note ---
Date of Service August 12, 2018 Assessment & Plan (1) Acute kidney injury: -- Clinically suspect PATY due to intravascular volume contraction. Creatinine slowly trending down -- Continue to hold diuretics, pt has been net negative (2) CKD (chronic kidney disease) stage 3, GFR 30-59 ml/min: -- Baseline creatinine has been 1.6. Renal impairment is on the basis of DM, HTN, obesity (3) Pulmonary edema: -- 08/05 Echocardiogram reviewed: Patient has preserved LVEF but has severe LVH. RV and pulmonary vessels were not well visualized -- CXR 08/09: Mild pulmonary vascular congestion. Bibasilar opacities c/w atelectasis or pneumonitis -- (4) Morbid obesity with BMI of 60.0-69.9, adult: -- Patient likely has pulmonary HTN related to obesity hypoventilation syndrome -- Patient is pursuing gastric bypass at [facility] Jeni Guthrie was seen & examined in her hospital room this morning. She was breathing fine on O2 at 2 L / min NC and she feels overall doing better although had another epiusode of SOB last night related to anxiety Has been off of diuretics but net negative. Renal function slightly improved, K better. Constitutional: + fever Physical Exam 2 Vital Signs (Past 24 Hours): Last Vital Signs Temp 36.4 C L 08/12/18 07:04 Pulse 60 08/12/18 07:06 Resp 16 08/12/18 07:06 BP 181/87 H 08/12/18 07:04 Pulse Ox 98 08/12/18 07:06 Constitutional: WD/WN, vitals as above Respiratory: Auscultation: + diminished lung sounds and + wheezes Cardiovascular: Rate/Rhythm: regular rate and regular rhythm Heart Sounds: normal S1 and normal S2 Extremities: + edema
[2018-08-12] MEDS: INSULIN LISPRO 100 UNIT/ML SC SCH ×4 (10:09→20:49)
[2018-08-12] MEDS: HEPARIN SOD 5,000 UNIT/0.5 ML VIAL SQ SCH ×2 (10:12→20:47)
[2018-08-12] MEDS: LORazepam 1 MG TAB PO SCH ×2 (10:14→20:45)
[2018-08-12] MEDS: BusPIRone 15 MG TAB PO SCH ×2 (10:15→20:46)
[2018-08-12] MEDS: FENOFIBRATE NANOCRYSTALLIZED 145 MG TABLET PO SCH (10:15)
[2018-08-12] MEDS: AMOXICILLIN/CLAVULANATE 500 MG TAB PO SCH ×2 (10:15→18:11)
[2018-08-12] MEDS: FLUCONAZOLE 100 MG TAB PO SCH (10:16)
[2018-08-12] MEDS: ESCITALOPRAM OXALATE 20 MG TAB PO SCH (10:16)
[2018-08-12] MEDS: ASPIRIN 81 MG ECTAB PO SCH (10:16)
[2018-08-12] MEDS: MAGNESIUM OXIDE 400 MG TAB PO SCH (10:17)
[2018-08-12] MEDS: METOPROLOL SUCC 50MG EXT REL TAB PO SCH (10:17)
[2018-08-12] MEDS: methylPREDNISolone 40 MG in SYRINGE 0 ML IV SCH ×2 (10:18→20:51)
--- NOTE | 2018-08-12 14:36 | Pharmacy Report ---
Pharmacy Glycemic Short Note 2 - Date of Service August 12, 2018 - Glycemic Short BSG Results (Last 24 hours): 08/11/18 08/11/18 08/12/18 16:32 20:38 00:06 Glucose POC Glucose 193 H 191 H 141 H 08/12/18 08/12/18 08/12/18 05:23 07:32 11:44 Glucose 216 H POC Glucose 227 H 238 H OUTPATIENT ANTIDIABETIC REGIMEN: Trulicity SQ weekly Lantus 150 units SQ HS Admelog CF of 5 and CR of 2 ASSESSMENT: * See progress note from 08/08/18 for more background info, in short: * Pt receiving SQ basal bolus insulin regimen for hyperglycemia secondary to baseline DM (outpatient regimen on hold), pulmonary infection on Zosyn, and steroids. Pt remains on solu medrol 40 mg IV q12 last * Patient is received 149 units of insulin yesterday * 60 units of basal insulin * 89 units of prandial/correctional insulin * Changes needed to insulin regimen: * AM Fasting BSG = 227 mg/dl. Despite additional 20 units of Lantus given yesterday, fasting remains elevated. Will continue to titrate basal dose ( current dose is still significantly less than home doses). * Post-prandial BSGs improved yesterday evening. Lunch BSG elevated again today. I will tighten correction factor. PLAN FOR INPATIENT GLYCEMIC CONTROL: * Basal insulin * Lantus 40 units SQ given x 1 this am, then Lantus per scale SQ HS * 40 units for BSG less than 180 mg/dL * 50 units for BSG 180 mg/dL or greater * Bolus insulin - tighten CF * NovoLog per scale ACHS or Q6hrs while NPO * Goal Range: Low 110 mg/dL - High 140 mg/dL * Correction Factor: 8 mg/dL/unit * Nutritional / Prandial insulin per carb ratio of 1 unit per 3 grams CHO consumed * Continue 00 check while on IV steroids RECOMMENDATIONS FOR DISCHARGE: * Patient's HbA1C is becoming better controlled. Consider continuing home regimen as long as she does not have any problems with hypoglycemia.
--- NOTE | 2018-08-12 15:17 | Consultation Report ---
DATE OF CONSULTATION: 08/12/2018 PULMONARY CONSULTATION TIME: 1:30 p.m. REPORT OF CONSULTATION: The patient was seen in room 280, bed 2. HISTORY OF PRESENT ILLNESS: She is a 57-year-old female with a chief complaint of shortness of breath. The patient has a history of severe sleep apnea. This has been for many years. She had been intolerant of CPAP. In 2018, she had another sleep study done that was a split study. It showed an apnea hypopnea index of 40 during the diagnostic portion. She was ordered BiPAP . She has not been compliant wearing this, however. She is very claustrophobic, and now has a mask which is a hybrid where it covers her mouth. Her pressures were decreased to 15/11. The patient, as noted, has a chief complaint of shortness of breath. This was thought to be related to her severe obesity as well as the sleep apnea. There was also a suspicion of diastolic CHF. Earlier this month, she presented to the Emergency Room with shortness of breath and she was admitted from July 23 through July 26. It was thought that diastolic CHF was the primary factor. The patient herself had thought that perhaps her severe anxiety and depression was a contributing factor. She feels that she gets panic attacks. Obviously, it is more than that, however. She does have chronic kidney disease as well. She had been hospitalized in the summer of 2017 with shortness of breath. They did diurese a large amount of fluid off of her at that time. She had a nuclear stress test in 2017 that was normal and which showed grade 1 diastolic dysfunction. The patient did have a CT angio of the chest in December 2017. There was a questionable single blood vessel PE in the right upper lobe. I do not believe she was treated for PE. Her D-dimer was elevated at that time and it is elevated again in very close range. The patient states she feels she would be way too anxious to go through a CT, even though she knows it is fast. She does have orthopnea with marked shortness of breath lying back. She actually sleeps in a recliner. She does have a dry cough every day. She has postnasal drip, but she does not think that is causing the cough. Denies reflux. She has had no chest pains, chills, fevers or sweats. The patient has never had lung troubles. There was specifically no history of asthma, COPD or emphysema. She has never smoked. The only exposure she had was secondhand smoke from her parents who smoked when she was a child. PAST MEDICAL HISTORY: 1. Diabetes. 2. Diastolic CHF. 3. Chronic kidney disease. 4. Sleep apnea. 5. Hypertension. 6. Hyperlipidemia. 7. Anxiety. 8. Depression. 9. Obesity. 10. Chronic back problems. 11. Childbirth x2, one of which was born by . PAST SURGICAL HISTORY: 1. Left shoulder x2. 2. Jaw surgery. 3. x1. 4. Cholecystectomy. FAMILY HISTORY: Mother living, age 81, hypertension, renal failure, diabetes, coronary artery disease. Father at age 74, stomach cancer. SOCIAL HISTORY: Tobacco never. ETOH - rare. ALLERGIES: PHENERGAN. 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 REVIEW OF SYSTEMS: Energy level is low. She does have sleep onset and sleep maintenance insomnia. It takes more than 30 minutes to initiate sleep. She has multiple awakenings. She then has difficulty going back to sleep. She denies bowel complaints. She does have chronic low back pain. She states that when she walks very much, she will get back pain. Remainder of the review of systems is negative. PHYSICAL EXAMINATION: GENERAL: The patient is a 57-year-old female who was cooperative, alert and oriented. She was in no distress at rest. She did not appear nearly as anxious as she indicated she was. Weight is 108.8 kilograms. BMI 60.6. NECK: She has a large neck. No lymph nodes palpable. HEENT: Mouth exam shows a Mallampati grade 4. Nares were mildly congested. Pupils were reactive to light. CHEST: Showed somewhat diminished excursions. VITAL SIGNS: Heart rate was 70 per minute. Rhythm regular. Blood pressure 191/94. LUNGS: Lung walter revealed mild wheeze bilaterally. This was on expiration. Respiratory rate 18. Saturation 98% on nasal cannula. ABDOMEN: Obese. Bowel sounds were present. There was no tenderness to palpation or masses. EXTREMITIES: Showed approximately +1 edema of the lower extremities. It was not nearly as much as expected. Although there was not that much fluid, the patient insisted that they were very swollen more than normal based upon how it felt on her shoes. LABORATORY DATA: White count is 4.31. Hemoglobin 10.3. Platelets 153,000. D-dimer was 860, last summer was 850. Electrolytes show sodium 140, potassium 5.6, chloride 105, bicarbonate 31. BUN 52, creatinine 2.26. On 08/11, the creatinine was 2.64. Blood sugars have been elevated up to 238 earlier today. Flu test was negative. Urine culture reported corynebacterium urealyticum. There was only 10,000 colonies, however. Blood cultures were negative. IMPRESSION: 1. Shortness of breath, undetermined etiology. 2. Severe obstructive sleep apnea - difficulty tolerating BiPAP. 3. Obesity hypoventilation. 4. Diastolic congestive heart failure. 5. Chronic kidney disease. COMMENTS: The patient describes having significant shortness of breath increased over the past 1-2 months. She feels it is worse than it was last summer. She did have a CT angio of the chest last summer that was possibly showing one very small pulmonary embolism. It was not definitive. Venous Doppler at that time was negative. The patient feels there is no way she could do a CT angio of the chest again. Would suggest at least checking venous Dopplers again. I spoke with the patient at length about the need to wear her BiPAP. She is extremely claustrophobic. Perhaps we should have her wear it sometimes during the day to help adapt. I explained to her, she just needs to tell herself that she has to do this. The mask she has is very nice and she says it is the best of the ones that she has tried. Would consider checking a TSH level if this has not been done anytime recently. Would suggest keeping her oxygen on the low side. The CO2 on the electrolytes is top normal. Consideration could be given to a blood gas, but I suspect she might struggle with that as well. The patient's goal is to have gastric bypass surgery done. She did tell me that she had gained 10-20 pounds. She states she was dreaming about place that she could go to eat for the last time before her surgery. She states she had up to 10 different restaurants on this list. I believe this exemplifies her addiction to overeating. She used to follow up with Dr. Hogan, who unfortunately is no longer available for us. Thank you very much for asking me to assist in her care. GERMÁN
--- NOTE | 2018-08-12 15:45 | Ultrasound Report ---
US venous doppler LE BI CLINICAL HISTORY: 57 years-old Female presenting with increased d dimer. TECHNIQUE: Real-time grayscale and color and spectral Doppler ultrasound imaging of the veins of the bilateral lower extremities was performed. Compression and augmentation were also utilized. COMPARISON: 12/31/2017. FINDINGS: RIGHT: Common femoral vein: Patent. Greater saphenous vein (superficial): Patent. Deep femoral vein: Patent. Femoral vein: Patent. Popliteal vein: Patent. Calf veins: Patent. LEFT: Common femoral vein: Patent. Greater saphenous vein (superficial): Patent. Deep femoral vein: Patent. Femoral vein: Patent. Popliteal vein: Patent. Calf veins: Patent. Other: None. IMPRESSION: No evidence of deep venous thrombosis. Electronically signed by: Geraldo Aaron M.D. 08/12/2018 3:44 PM
[2018-08-12] MEDS ORDERED: HydrALAZINE HCL 20 MG/ML VIAL IV STA (16:09)
[2018-08-12] MEDS ORDERED: HydrALAZINE HCL 20 MG/ML VIAL IV PRN (16:14)
[2018-08-12] MEDS ORDERED: HydrALAZINE HCL 20 MG/ML VIAL ONE (16:18)
[2018-08-12] MEDS: ATORVASTATIN 40 MG TAB PO SCH (20:45)
[2018-08-12] MEDS: ZINC SULFATE 220 MG CAPSULE PO SCH (20:51)
[2018-08-12] MEDS: INSULIN GLARGINE 100 UNIT/ML VIAL SQ SCH (20:57)
[2018-08-12] MEDS: TRAZODONE HCL 50 MG TAB PO PRN (22:37)
--- NOTE | 2018-08-12 23:28 | Hospitalist Progress Note ---
Date of Service August 12, 2018 Assessment & Plan (1) Hypoxia: On a chronic basis seemingly unexplained in past unless from pulmonary htn and shunting with history of TRUMAN and non compliance with nocutrnal postive pressure ventilation Chest x-ray from 08/09 shows some mild pulmonary vascular congestion no overt pleural effusions or infiltrates Patient is being treated for reactive airway although no history of the same and very limited smoke exposure however clinically she examines like reactive airway Continuing treatment for initial pneumonia seen on presenting chest x-ray, de escalating antibiotics 08/10 breathing better but still on 3L may require two step prior to discharge if hypoxia truly driven by pulmonary HTN should follow up with pulm as outpatient needs PFT once lungs are recovered venous doppler on 08/12 with no evidence of DVT so makes PE far less likely (2) Obesity hypoventilation syndrome: Obesity hypoventilation syndrome/sleep apnea--patient was intolerant of wearing her CPAP throughout the night Patient has had additional weight gain since last visit almost 7 kg. Upcoming schedule gastric bypass surgery has been rescheduled due to her recent hospitalizations nocturnal oximetry to see if she requires oxygen at night at home and get this approved consult pulmonology: seen by Dr. Brar, needs close follow up in office, will need PFT once recovered (3) Pneumonia: For possible right middle lobe infiltrate continue Augmentin Xopenex Atrovent nebulizer every 6 hours while awake. added Marcellusvana on 08/09 was on Solu Medrol, change to Prednisone 50mg qAM on 08/13 plan for taper on discharge (4) CKD (chronic kidney disease) stage 3, GFR 30-59 ml/min: Creatinine has increased with diuretic therapy being managed by nephrology She has intermittently been on Lasix in the past for fluid retention, the degree of elevation of her renal function supports that this is mostly edema from high right-sided heart pressures Cr improved to 2.2, baseline is 1.6 continue to hold diuretics, she is making urine very sensitive to diuretics but may ultimately need them if she has volume retention and right sided failure (5) Morbid obesity with BMI of 60.0-69.9, adult: She has gained approximately 7 kg since last admission on 07/23/18 (6) Obstructive sleep apnea on CPAP: Patient has challenges using home BiPAP unit for bedtime. Patient did not tolerate BiPAP enough to qualify for nocturnal sleep study we will try just with plain oxygen Dr. Brar stressed to her that she needs to wear BIPAP every night, otherwise she will continue to be short of breath during the day (7) Anxiety and depression: Controlled with buspirone, Lexapro, Ativan and trazodone. patient on Ativan BID, asking for breakthrough Ativan, I cautioned against this, would not want to suppress ventilation (8) Diabetes: PT did have low glucose on insulin glargine, this was decreased from home bedtime dosing(perhaps due to renal function potentiating insulin affects) Placed on Accu-Cheks before meals and at bedtime with NovoLog coverage per scale (9) Hyperlipemia: Continue atorvastatin 80 mg at bedtime (10) Hypothyroidism: stable on levothyroxine sodium 50 mcg daily (11) HTN (hypertension): poorly controlled on Toprol, usine Clonidine PRN no room to increase Toprol 100mg as HR is in 60's will start Norvasc 5mg daily on 08/13 patient may be ready by 08/14 or 08/15 for discharge follow Cr daily, improving will need close follow up with pulmonology, consider PFT outpatient her plans for gastric bypass are on hold for the time being while breathing and renal function are suboptimal Subjective patient feels that her breathing is better today, less wheezing, less coughing discussed the case with Dr. Brar, venous dopplers negative he stressed importance of wearing BIPAP every night, she is very claustrophobic some concerns that her breathing has gotten worse over past two months she has never had PFT, would need them when she is stable reviewed echo report, could not visualize right side of heart if you were to diagnosis pulm HTN may need right heart cath certainly would not want to jump into something invasive right now discussed with Dr. Kang, appreciate her input Cr improved to 2.2, baseline is 1.6 making adequate urine without diuretics, continue to hold patient is optimistic as she is feeling better today Review of Systems All systems reviewed & are unremarkable except as noted in HPI & below Constitutional: + fatigue; no fever and no sweats Respiratory: + cough, + chest congestion, + dyspnea on exertion, + snoring and + wheezing; no dyspnea, no hemoptysis, no pain on inspiration, no pain with cough and no sputum production Cardiovascular: + edema; no chest pain, no dyspnea, no orthopnea and no syncope Genitourinary (Female): + vaginal discharge (yeast infection); no dysuria Physical Exam Vital Signs (Past 24 Hours): Last Vital Signs Temp 36.6 C 08/12/18 23:10 Pulse 60 08/12/18 23:10 Resp 22 08/12/18 23:10 BP 178/88 H 08/12/18 23:10 Pulse Ox 96 08/12/18 23:10 Constitutional: WD/WN, vitals as above + morbidly obese Eyes: PERRL, conjunctivae normal, anicteric sclerae ENMT: external ear and nose normal, oropharynx normal Neck: trachea midline, no thyromegaly Respiratory: normal respiratory effort; no respiratory distress Auscultation: + diminished lung sounds; no crackles, no rales, no rhonchi and no wheezes (this is improvement) Cardiovascular: Rate/Rhythm: regular rate and regular rhythm Heart Sounds: normal S1 and normal S2; no murmur Vessels: + JVD Extremities: normal capillary refill and + pedal edema Gastrointestinal (Abdomen): normal bowel sounds, soft, nontender, no hep atosplenomegaly Musculoskeletal: no cyanosis or clubbing, extremities motor strength 5/5 Skin: no rashes, warm and dry Neurologic: patellar DTR's 2+ bilat, sensation intact and PERRL, EOMI, accommodation nl, no face palsy, no dysarthria Lymphatic: no cervical or axillary lymphadenopathy Results & Data Laboratory Results Laboratory Results - last 24 hr 08/12/18 08/12/18 08/12/18 05:23 05:23 07:32 Sodium 140 Potassium 5.6 H Chloride 105 Carbon Dioxide 31 Anion Gap 4.0 BUN 52 H Creatinine 2.26 H D Est Cr Clr Drug Dosing 46.8 Est GFR ( Amer) 26.6 Est GFR (Non-Af Amer) 23.0 BUN/Creatinine Ratio 22.9 H Glucose 216 H POC Glucose 227 H Calcium 8.4 L TSH 0.857 08/12/18 08/12/18 08/12/18 11:44 16:18 20:13 Sodium Potassium Chloride Carbon Dioxide Anion Gap BUN Creatinine Est Cr Clr Drug Dosing Est GFR ( Amer) Est GFR (Non-Af Amer) BUN/Creatinine Ratio Glucose POC Glucose 238 H 103 H 154 H Calcium TSH 08/13/18 00:14 Sodium Potassium Chloride Carbon Dioxide Anion Gap BUN Creatinine Est Cr Clr Drug Dosing Est GFR ( Amer) Est GFR (Non-Af Amer) BUN/Creatinine Ratio Glucose POC Glucose 111 H Calcium TSH Diagnostic Findings VENOUS DOPPLER BILATERALLY: No evidence of deep venous thrombosis. Medications Administered Current Inpatient Medications Acetaminophen (Tylenol) 650 mg PO Q4H PRN PRN Reason: Pain or Fever Stop: 09/06/18 04:20 Last Admin: 08/10/18 03:35 Dose: 650 mg Al Hydrox/Mg Hydrox/Simethicone (Maalox) 15 ml PO Q4H PRN PRN Reason: Dyspepsia Stop: 09/06/18 04:20 Amoxicillin/Clavulanate Potassium (Augmentin 500mg) 1 tab PO BIDM [facility]; Protocol Stop: 08/14/18 16:59 Last Admin: 08/12/18 18:11 Dose: 1 tab Arformoterol Tartrate (Brovana Neb) 15 mcg INH BIDR [facility] Stop: 09/08/18 19:59 Last Admin: 08/12/18 19:33 Dose: 15 mcg Aspirin (Ecotrin Ectab) 81 mg PO DAILY [facility] Stop: 09/06/18 08:59 Last Admin: 08/12/18 10:16 Dose: 81 mg Atorvastatin Calcium (Lipitor) 80 mg PO HS [facility] Stop: 09/06/18 20:59 Last Admin: 08/12/18 20:45 Dose: 80 mg Buspirone HCl (Buspar) 30 mg PO BID [facility] Stop: 09/06/18 08:59 Last Admin: 08/12/18 20:46 Dose: 30 mg Clonidine HCl (Catapres) 0.1 mg PO Q8 PRN PRN Reason: Blood Pressure - High Stop: 09/09/18 15:54 Last Admin: 08/12/18 11:55 Dose: 0.1 mg Dextrose (Dextrose 50%) 25 - 50 ml IV UD PRN; Protocol PRN Reason: Hypoglycemia Protocol Stop: 09/06/18 04:20 Ergocalciferol (Vitamin D2) 50,000 units PO Sa@0700 [facility] Stop: 09/08/18 09:59 Last Admin: 08/09/18 09:29 Dose: 50,000 units Escitalopram Oxalate (Lexapro) 20 mg PO DAILY [facility] Stop: 09/06/18 08:59 Last Admin: 08/12/18 10:16 Dose: 20 mg Fenofibrate (Tricor) 145 mg PO DAILY JOHNATHON Stop: 09/06/18 08:59 Last Admin: 08/12/18 10:15 Dose: 145 mg Fluconazole (Diflucan) 100 mg PO QAM [facility] Stop: 08/21/18 16:59 Last Admin: 08/12/18 10:16 Dose: 100 mg Glucagon (Glucagen) 1 mg SQ UD PRN; Protocol PRN Reason: Hypoglycemia Protocol Stop: 09/06/18 04:20 Glucose (Glucose 40%) 15 - 30 gm PO UD PRN; Protocol PRN Reason: Hypoglycemia Protocol Stop: 09/06/18 04:20 Glucose (Dex4 Glucose) 4 - 8 tabs PO UD PRN; Protocol PRN Reason: Hypoglycemia Protocol Stop: 09/06/18 04:20 Guaifenesin (Robitussin Sugar Free) 200 mg PO Q6H PRN PRN Reason: Cough Stop: 09/06/18 05:53 Last Admin: 08/13/18 01:26 Dose: 200 mg Heparin Sodium (Porcine) (Heparin Sodium (Porcine)) 5,000 units SQ Q12 JOHNATHON Stop: 09/09/18 20:59 Last Admin: 08/12/18 20:47 Dose: 5,000 units Hydralazine HCl (Hydralazine Hcl) 10 mg IV Q6 PRN PRN Reason: Blood Pressure - High Stop: 09/11/18 16:13 Methylprednisolone 40 mg/ (Syringe) 0.64 mls @ 1.5 mls/min IV Q12 [facility] Stop: 09/09/18 20:59 Last Admin: 08/12/18 20:51 Dose: 1.5 mls/min Insulin Glargine (Lantus) 0 units SQ HS [facility]; Protocol Stop: 09/08/18 20:59 Last Admin: 08/12/18 20:57 Dose: 40 units Ipratropium Greer (Atrovent 0.02% 0.5mg/2.5ml) 0.5 mg INH Q6R [facility] Stop: 09/06/18 07:59 Last Admin: 08/13/18 01:43 Dose: 0.5 mg Levalbuterol HCl (Xopenex 1.25mg/0.5ml Neb) 1.25 mg INH Q6R JOHNATHON Stop: 09/06/18 07:59 Last Admin: 08/13/18 01:43 Dose: 1.25 mg Levothyroxine Sodium (Synthroid) 50 mcg PO DAILYBB [facility] Stop: 09/06/18 06:29 Last Admin: 08/12/18 05:32 Dose: 50 mcg Lorazepam (Ativan) 1 mg PO AMHS [facility] Stop: 09/06/18 08:59 Last Admin: 08/12/18 20:45 Dose: 1 mg Magnesium Hydroxide (Milk Of Magnesia) 30 ml PO Q12H PRN PRN Reason: Constipation Stop: 09/06/18 04:20 Magnesium Oxide (Mag-Ox) 400 mg PO DAILY [facility] Stop: 09/06/18 08:59 Last Admin: 08/12/18 10:17 Dose: 400 mg Metoprolol Succinate (Toprol Xl) 100 mg PO DAILY [facility] Stop: 09/06/18 08:59 Last Admin: 08/12/18 10:17 Dose: 100 mg Miscellaneous (Carbohydrates For Hypoglycemia) 15 - 30 gm PO UD PRN PRN Reason: Hypoglycemia Treatment Stop: 09/06/18 04:20 Last Admin: 08/09/18 17:00 Dose: 15 gm Miscellaneous (Non-Formulary Medication) 0 ea SC ACHS [facility]; Protocol Stop: 09/07/18 20:59 Last Admin: 08/12/18 20:49 Dose: 2 ea Miscellaneous (Order Awaiting Action) 1 ea N/A QAM [facility] Stop: 09/11/18 08:59 Last Admin: 08/12/18 10:17 Dose: Not Given Miscellaneous Information (Consult Glycemic Management Pharmacy) 1 ea N/A UD PRN PRN Reason: Consult Stop: 09/07/18 18:52 Nitroglycerin (Nitrostat) 0.4 mg SL UD PRN PRN Reason: Chest Pain Stop: 09/06/18 04:20 Trulicity~Non- Formulary Patient's Own Med 1 ea SQ Mo@0900 [facility] Stop: 09/10/18 22:14 Last Admin: 08/11/18 23:57 Dose: 1 pen Ondansetron HCl (Zofran) 4 mg IV Q6H PRN PRN Reason: Nausea Stop: 09/06/18 05:53 Last Admin: 08/07/18 06:06 Dose: 4 mg Oxycodone/Acetaminophen (Percocet 10/325mg) 1 tab PO Q6H PRN PRN Reason: Pain Stop: 08/21/18 17:55 Last Admin: 08/11/18 21:39 Dose: 1 tab Polyethylene Glycol (Miralax Powder Packet) 17 gm PO DAILY PRN PRN Reason: Constipation Stop: 09/06/18 04:20 Last Admin: 08/10/18 13:14 Dose: 17 gm Potassium Chloride (Klor-Con M10) 10 meq PO DAILY JOHNATHON Stop: 09/06/18 08:59 Last Admin: 08/10/18 08:32 Dose: 10 meq Trazodone HCl (Desyrel) 50 - 100 mg PO HS PRN PRN Reason: Insomnia Stop: 09/06/18 04:20 Last Admin: 08/13/18 00:18 Dose: 100 mg Zinc Sulfate (Zinc Sulfate) 440 mg PO HS JOHNATHON Stop: 09/06/18 20:59 Last Admin: 08/12/18 20:51 Dose: Not Given
[2018-08-13] MEDS ORDERED: INSULIN LISPRO 100 UNIT/ML SC SCH
[2018-08-13] MEDS: TRAZODONE HCL 50 MG TAB PO PRN (00:18)
[2018-08-13] MEDS: guaiFENesin SUGAR FREE 200 MG/10 ML UDC PO PRN ×4 (01:26→21:58)
[2018-08-13] MEDS: LEVALBUTEROL 1.25MG/0.5ML NEB INH SCH ×4 (01:43→19:37)
[2018-08-13] MEDS: IPRATROPIUM BROMIDE NEB SOLN 0.02% 2.5 ML VIAL INH SCH ×4 (01:43→19:36)
[2018-08-13] MEDS: LEVOTHYROXINE SODIUM 50 MCG TABLET PO SCH (06:12)
[2018-08-13 06:43] LABS: BUN Creatinine Ratio 26.8 (10-20); Calcium 9.1 mg/dl (8.5-10.1); Creatinine Clr Calc Pharmacy 49.8 ml/min; Potassium 5.7 mmol/L (3.5-5.1)
[2018-08-13] MEDS: ARFORMOTEROL TART 15MCG/2ML VIAL INH SCH ×2 (07:10→19:36)
[2018-08-13] MEDS: predniSONE 50 MG TAB PO SCH (07:50)
[2018-08-13] MEDS: ASPIRIN 81 MG ECTAB PO SCH (07:51)
[2018-08-13] MEDS: FENOFIBRATE NANOCRYSTALLIZED 145 MG TABLET PO SCH (07:51)
[2018-08-13] MEDS: ESCITALOPRAM OXALATE 20 MG TAB PO SCH (07:52)
[2018-08-13] MEDS: MAGNESIUM OXIDE 400 MG TAB PO SCH (07:52)
[2018-08-13] MEDS: AMOXICILLIN/CLAVULANATE 500 MG TAB PO SCH ×2 (07:52→17:44)
[2018-08-13] MEDS: FLUCONAZOLE 100 MG TAB PO SCH (07:52)
[2018-08-13] MEDS: BusPIRone 15 MG TAB PO SCH ×2 (07:53→20:08)
[2018-08-13] MEDS: AMLODIPINE BESYLATE 5 MG TAB PO SCH (07:53)
[2018-08-13] MEDS: LORazepam 1 MG TAB PO SCH ×2 (07:53→20:08)
[2018-08-13] MEDS: HEPARIN SOD 5,000 UNIT/0.5 ML VIAL SQ SCH ×2 (07:54→20:10)
[2018-08-13] MEDS: METOPROLOL SUCC 50MG EXT REL TAB PO SCH (08:05)
[2018-08-13] MEDS: INSULIN LISPRO 100 UNIT/ML SC SCH ×5 (08:09→21:50)
[2018-08-13] MEDS ORDERED: INSULIN GLARGINE SOLOSTAR 100 UNITS/ML 3 ML PEN SC ONE (09:00)
--- NOTE | 2018-08-13 10:50 | Nephrology Progress Note ---
Date of Service August 13, 2018 Assessment & Plan (1) Acute kidney injury: -- Clinically suspect PATY due to intravascular volume contraction. Creatinine slowly trending down. Baseline creatinine has been 1.6. Renal impairment is on the basis of DM, HTN, obesity -- Continue to hold diuretics, as pt remain net negative --encouraged to use BiPAP Will follow (2) CKD (chronic kidney disease) stage 3, GFR 30-59 ml/min: (3) Pulmonary edema: -- (4) Morbid obesity with BMI of 60.0-69.9, adult: Subjective Jerri was seen & examined in her hospital room this morning. She was breathing fine on O2 at 2 L / min NC and she feels overall doing better. Has been off of diuretics but remain net negative. Renal function slightly improved, K high Constitutional: + fever Physical Exam Vital Signs (Past 24 Hours): Last Vital Signs Temp 36.6 C 08/13/18 07:34 Pulse 64 08/13/18 07:34 Resp 20 08/13/18 07:34 BP 187/81 H 08/13/18 07:34 Pulse Ox 99 08/13/18 07:34 Constitutional: WD/WN, vitals as above Respiratory: Auscultation: + diminished lung sounds and + wheezes Cardiovascular: Rate/Rhythm: regular rate and regular rhythm Heart Sounds: normal S1 and normal S2 Extremities: + edema
--- NOTE | 2018-08-13 12:04 | Progress Note ---
DATE: 08/13/2018 PULMONARY PROGRESS NOTE TIME: 11:20 a.m. SUBJECTIVE: The patient feels about the same overall. She states she coughed a lot last night. She used, that is the reason for not wearing her BiPAP at all yesterday. It appears that she is just severely claustrophobic and afraid. Her cough is nonproductive. She feels that she might be slightly less short of breath walking across the room. OBJECTIVE: GENERAL: The patient appeared comfortable. She did not cough during this hospitalization. VITAL SIGNS: Temperature is 36.8. There have been no fevers. Heart rate is 63 per minute. Rhythm is regular. Systolic murmur grade 1-2 heard. Blood pressure elevated at 177/82. LUNGS: Auscultation of the lung walter revealed decreased breath sounds. There was mild wheeze heard on expiration. Respiratory rate 20. Saturation 94% on 2 liters. EXTREMITIES: Shows at most +1 edema bilaterally. No cyanosis or clubbing was noted. LABORATORY DATA: Electrolytes show sodium 140, potassium 5.7, chloride 106, bicarbonate 31. BUN 57 with a creatinine 2.11. Glucose was 141. TSH level was normal at 0.857. Venous Doppler study done yesterday showed no evidence of DVT. IMPRESSION: 1. Shortness of breath. 2. Obesity hypoventilation syndrome. 3. Severe obstructive sleep apnea - resistant to wearing BiPAP. 4. Diastolic congestive heart failure. 5. Chronic kidney disease. COMMENTS AND RECOMMENDATIONS: I have suggested to the patient that she try wearing the BiPAP 1-2 hours at a time during the day to try and help her acclimate to her mask and the pressure. The patient's blood pressure remains significantly elevated. We will defer this treatment to the hospitalist team, but it clearly has been elevated higher than desirable. Would continue with the neb treatments including levalbuterol and ipratropium. She does remain on prednisone 50 mg. In spite of the above, she is still wheezing. Consider adding nebulized budesonide 0.5 mg b.i.d.
--- NOTE | 2018-08-13 12:33 | Pharmacy Report ---
Pharmacy Glycemic Short Note 2 - Date of Service August 13, 2018 - Glycemic Short BSG Results (Last 24 hours): 08/12/18 08/12/18 08/12/18 11:44 16:18 20:13 Glucose POC Glucose 238 H 103 H 154 H 08/13/18 08/13/18 08/13/18 00:14 05:14 07:41 Glucose 127 H POC Glucose 111 H 141 H 08/13/18 11:25 Glucose POC Glucose 148 H OUTPATIENT ANTIDIABETIC REGIMEN: Trulicity SQ weekly Lantus 150 units SQ HS Admelog CF of 5 and CR of 2 ASSESSMENT: 08/13/18: * Fasting blood sugar within goal range today. * Ms. Arellano received a total of 160 units of insulin yesterday. * 80 units of basal insulin * 80 units of prandial insulin * Pt transitioned from solumedrol 40mg bid to Prednisone 50mg qam starting this morning. * Will slightly loosen CF due to steroid dose decrease. * Will decrease basal insulin scale for evening dose to prevent hypoglycemia. 08/12/18: * See progress note from 08/08/18 for more background info, in short: * Pt receiving SQ basal bolus insulin regimen for hyperglycemia secondary to baseline DM (outpatient regimen on hold), pulmonary infection on Zosyn, and steroids. Pt remains on solu medrol 40 mg IV q12 last * Patient is received 149 units of insulin yesterday * 60 units of basal insulin * 89 units of prandial/correctional insulin * Changes needed to insulin regimen: * AM Fasting BSG = 227 mg/dl. Despite additional 20 units of Lantus given yesterday, fasting remains elevated. Will continue to titrate basal dose (current dose is still significantly less than home doses). * Post-prandial BSGs improved yesterday evening. Lunch BSG elevated again today. I will tighten correction factor. PLAN FOR INPATIENT GLYCEMIC CONTROL: * Basal insulin * Lantus 30 units SQ given x 1 this am, then Lantus per scale SQ HS * 30 units for BSG less than 200 mg/dL * 40 units for BSG 200 mg/dL or greater * Bolus insulin - tighten CF * NovoLog per scale ACHS or Q6hrs while NPO * Goal Range: Low 110 mg/dL - High 140 mg/dL * Correction Factor: 10 mg/dL/unit * Nutritional / Prandial insulin per carb ratio of 1 unit per 3 grams CHO consumed RECOMMENDATIONS FOR DISCHARGE: * Patient's HbA1C is becoming better controlled. Consider continuing home regimen as long as she does not have any problems with hypoglycemia.
[2018-08-13] MEDS ORDERED: SODIUM POLYSTYRENE SULFONATE 15G/60ML SUSP PO STA (12:47)
[2018-08-13] MEDS: HydrALAZINE 10 MG TAB PO SCH ×2 (13:37→20:55)
--- NOTE | 2018-08-13 15:44 | Hospitalist Progress Note ---
Date of Service August 13, 2018 Assessment & Plan (1) CHF (congestive heart failure): (2) Obesity hypoventilation syndrome: (3) Pulmonary edema: (4) Acute kidney injury: (5) HTN (hypertension): (6) CKD (chronic kidney disease) stage 3, GFR 30-59 ml/min: (7) Obstructive sleep apnea on CPAP: (8) Peripheral neuropathy: (9) Morbid obesity with BMI of 60.0-69.9, adult: 57-year-old white female admitted on August 07, 2018 because of hypoxic, Hypoxia upon admission likely because of morbid obesity with Obesity hypoventilation syndrome, and CHF exacerbation, Morbid obesity with history of TRUMAN and Significant non compliance with nocutrnal postive pressure ventilation Chest x-ray from 08/09 shows some mild pulmonary vascular congestion no overt pleural effusions or infiltrates Has been treated for reactive airway although no history of the same and very limited smoke exposure however clinically she examines like reactive airway Continuing treatment for initial pneumonia seen on presenting chest x-ray, de escalating antibiotics 08/10 Was not need home O2 at home, breathing better but still on 2L [employer] input appreciated, continue current care, continue BiPAP machine, should follow up with pulm as outpatient, needs PFT once lungs are recovered venous doppler on 08/12 with no evidence of DVT so makes PE far less likely need nocturnal oximetry to see if she requires oxygen at night at home and get this approved Obesity hypoventilation syndrome/sleep apnea Upcoming schedule gastric bypass surgery has been rescheduled due to her recent hospitalizations consult pulmonology: seen by Dr. Brar, needs close follow up in office, will need PFT once recovered Possible right middle lobe pneumonia: continue Augmentin, Xopenex Atrovent nebulizer every 6 hours while awake. added Melissa on 08/09 was on Solu Medrol, change to Prednisone 50mg qAM on 08/13, will continue plan for taper on discharge Acute kidney injury on CKD (chronic kidney disease) stage 3, GFR 30-59 ml/min: Creatinine has increased with diuretic therapy being managed by nephrology She has intermittently been on Lasix in the past for fluid retention, the degree of elevation of her renal function supports that this is mostly edema from high right-sided heart pressures Cr improved to 2.1, baseline is 1.6 continue to hold diuretics, she is making urine Diabetic, dyslipidemia, anxiety and depression: Stable continue current medication Accelerated hypertension continue beta-william, add hydralazine, continue Norvasc 5mg daily on 08/13 her plans for gastric bypass are on hold for the time being while breathing and renal function are suboptimal Possible discharge soon, however because of her medicine noncompliant and comorbidities she is at high risk of readmission Subjective Sitting up in chair, generally feeling better, not on oxygen at home, however now need 2 L of oxygen, occasional wheezing, bilateral lower extremity 1-2+ edema Review of Systems Constitutional: Positive weakness, or fatigue Respiratory: no cough, sputum, Cardiac: No chest pain, No orthopnea, No PND, No claudication, No palpitations, Abdomen: No pain, No nausea, No vomiting, No diarrhea, Musculoskeletal: No joint pain, No muscle pain, No calf pain, No problem reported : No dysuria, No urinary frequency, No incontinence, No hematuria Neurologic: No paralysis, No weakness, No numbness/tingling, No vertigo, No balance problems Psychiatric: No depression symptoms, No anhedonism, No anxiety, No insomnia, No substance abuse Heme: No abnormal bleeding/bruising, No clotting problems, No swollen lymph nodes, No night sweats Skin: No rash, No itch, No new/changing skin lesions, No color change, No bleeding Physical Exam Vital Signs (Past 24 Hours): Last Vital Signs Temp 36.8 C 08/13/18 11:16 Pulse 74 08/13/18 14:11 Resp 16 08/13/18 14:11 BP 177/82 H 08/13/18 11:16 Pulse Ox 98 08/13/18 14:11 Physical Exam: General Appearance: Morbid obesity, pleasant, smiling, conversational, WD/WN, no apparent distress, Eyes: normal inspection, PERRL, EOMI, sclerae normal ENT: normal ENT inspection, hearing grossly normal, pharynx normal Neck: supple, no adenopathy, thyroid normal, no JVD, no carotid bruits, trachea midline Respiratory/Chest: chest non-tender, normal breath sounds, no respiratory distress, no accessory muscle use, breath sounds, rales, wheezing Cardiovascular: regular rate, rhythm, no JVD, no murmur Abdomen: normal bowel sounds, non tender, soft, no organomegaly, Extremities: normal range of motion, non-tender, normal inspection, 2+ pedal edema, no calf tenderness, normal capillary refill, pelvis stable, joint has no limited range of motion, capillary refill is normal, no cyanosis clubbing Neurologic/Psychiatric: 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 tested, no motor/sensory deficits, alert, normal mood/affect, oriented x 3 Skin: normal color, warm/dry, no rash Lymphatic: no adenopathy Results & Data Laboratory Results Laboratory Results - last 24 hr 08/12/18 08/12/18 08/13/18 16:18 20:13 00:14 Sodium Potassium Chloride Carbon Dioxide Anion Gap BUN Creatinine Est Cr Clr Drug Dosing Est GFR ( Amer) Est GFR (Non-Af Amer) BUN/Creatinine Ratio Glucose POC Glucose 103 H 154 H 111 H Calcium 08/13/18 08/13/18 08/13/18 05:14 07:41 11:25 Sodium 140 Potassium 5.7 H Chloride 106 Carbon Dioxide 31 Anion Gap 4.0 BUN 57 H Creatinine 2.11 H Est Cr Clr Drug Dosing 49.8 Est GFR ( Amer) 29.0 Est GFR (Non-Af Amer) 25.0 BUN/Creatinine Ratio 26.8 H Glucose 127 H POC Glucose 141 H 148 H Calcium 9.1 (1) CHF (congestive heart failure) Heart failure chronicity: unspecified Heart failure type: unspecified Qualified Code(s): I50.9 - Heart failure, unspecified
[2018-08-13] MEDS: ACETAMINOPHEN 325 MG TAB PO PRN ×2 (15:54→21:57)
[2018-08-13 16:24] LABS: BUN Creatinine Ratio 25.7 (10-20); Calcium 9.1 mg/dl (8.5-10.1); Est GFR (African American) 29.8; Est GFR (Non-African American) 25.7; Potassium 5.4 mmol/L (3.5-5.1)
[2018-08-13] MEDS: ATORVASTATIN 40 MG TAB PO SCH (20:08)
[2018-08-13] MEDS: ZINC SULFATE 220 MG CAPSULE PO SCH ×2 (20:09→20:20)
[2018-08-13] MEDS: INSULIN GLARGINE 100 UNIT/ML VIAL SQ SCH (20:16)
[2018-08-14] MEDS: TRAZODONE HCL 50 MG TAB PO PRN ×2 (00:51→23:42)
[2018-08-14] MEDS: LEVALBUTEROL 1.25MG/0.5ML NEB INH SCH ×4 (01:30→19:52)
[2018-08-14] MEDS: IPRATROPIUM BROMIDE NEB SOLN 0.02% 2.5 ML VIAL INH SCH ×4 (01:32→19:52)
[2018-08-14] MEDS: guaiFENesin SUGAR FREE 200 MG/10 ML UDC PO PRN ×4 (04:40→23:42)
[2018-08-14] MEDS: LEVOTHYROXINE SODIUM 50 MCG TABLET PO SCH (05:32)
[2018-08-14] MEDS: ARFORMOTEROL TART 15MCG/2ML VIAL INH SCH ×2 (07:10→19:52)
[2018-08-14 07:32] LABS: BUN Creatinine Ratio 25.3 (10-20); Creatinine Clr Calc Pharmacy 49.6 ml/min; Est GFR (African American) 28.8; Est GFR (Non-African American) 24.8; Magnesium 2.4 mg/dl (1.8-2.4); Phosphorus 3.7 mg/dl (2.5-4.9); Potassium 4.6 mmol/L (3.5-5.1)
[2018-08-14] MEDS: LORazepam 1 MG TAB PO SCH ×2 (09:21→21:17)
[2018-08-14] MEDS: METOPROLOL SUCC 50MG EXT REL TAB PO SCH (09:21)
[2018-08-14] MEDS: ACETAMINOPHEN 325 MG TAB PO PRN ×2 (09:21→13:24)
[2018-08-14] MEDS: AMLODIPINE BESYLATE 5 MG TAB PO SCH (09:21)
[2018-08-14] MEDS: FENOFIBRATE NANOCRYSTALLIZED 145 MG TABLET PO SCH (09:22)
[2018-08-14] MEDS: HydrALAZINE 10 MG TAB PO SCH ×3 (09:22→21:17)
[2018-08-14] MEDS: MAGNESIUM OXIDE 400 MG TAB PO SCH (09:23)
[2018-08-14] MEDS: FLUCONAZOLE 100 MG TAB PO SCH (09:23)
[2018-08-14] MEDS: ASPIRIN 81 MG ECTAB PO SCH (09:23)
[2018-08-14] MEDS: HEPARIN SOD 5,000 UNIT/0.5 ML VIAL SQ SCH ×2 (09:23→21:48)
[2018-08-14] MEDS: ESCITALOPRAM OXALATE 20 MG TAB PO SCH (09:23)
[2018-08-14] MEDS: BusPIRone 15 MG TAB PO SCH ×2 (09:23→21:16)
[2018-08-14] MEDS: predniSONE 50 MG TAB PO SCH (09:24)
[2018-08-14] MEDS: INSULIN LISPRO 100 UNIT/ML SC SCH ×4 (09:25→21:50)
--- NOTE | 2018-08-14 09:50 | Nephrology Progress Note ---
Date of Service August 14, 2018 Assessment & Plan (1) Acute kidney injury: -- Clinically suspect PATY due to intravascular volume contraction. Renal function stable.. Baseline creatinine has been 1.6. Renal impairment is on the basis of DM, HTN, obesity -- Continue to hold diuretics, as pt remain net negative, however eventually she will need diuretics on discharge, at least 20 mg daily. Will need to accept slight worsening of renal function to maintain volume status and functionality. --encouraged to use BiPAP Will follow (2) CKD (chronic kidney disease) stage 3, GFR 30-59 ml/min: -- Baseline creatinine has been 1.6. Renal impairment is on the basis of DM, HTN, obesity (3) Pulmonary edema: -- (4) Morbid obesity with BMI of 60.0-69.9, adult: Subjective Jerri was seen & examined in her hospital room this morning. She was breathing fine on O2 at 2 L / min NC and she feels overall doing better. Has decent urine output net negative. Renal function stable, creatinine 2.1, hyperkalemia resolved. Constitutional: + fever Physical Exam Vital Signs (Past 24 Hours): Last Vital Signs Temp 36.5 C 08/14/18 07:47 Pulse 67 08/14/18 07:47 Resp 20 08/14/18 07:47 BP 165/103 H 08/14/18 07:47 Pulse Ox 98 08/14/18 07:47 Constitutional: WD/WN, vitals as above Respiratory: Auscultation: + diminished lung sounds and + wheezes Cardiovascular: Rate/Rhythm: regular rate and regular rhythm Heart Sounds: normal S1 and normal S2 Extremities: + edema
[2018-08-14] MEDS: AMOXICILLIN/CLAVULANATE 500 MG TAB PO SCH (09:57)
[2018-08-14] MEDS ORDERED: TEMAZEPAM 7.5 MG CAPSULE PO PRN (14:36)
--- NOTE | 2018-08-14 14:46 | Hospitalist Progress Note ---
Date of Service August 14, 2018 Assessment & Plan (1) CHF (congestive heart failure): (2) Obesity hypoventilation syndrome: (3) Pulmonary edema: (4) Acute kidney injury: (5) HTN (hypertension): (6) CKD (chronic kidney disease) stage 3, GFR 30-59 ml/min: (7) Obstructive sleep apnea on CPAP: (8) Peripheral neuropathy: (9) Morbid obesity with BMI of 60.0-69.9, adult: 57-year-old white female admitted on August 07, 2018 because of hypoxic, Hypoxia likely secondary to several reasons such as Obesity hypoventilation syndrome, and CHF exacerbation Hypoxia upon admission likely because of morbid obesity with Obesity hypoventilation syndrome, and CHF exacerbation, Morbid obesity with history of TRUMAN Significant non compliance with cpap Chest x-ray from 08/09 shows some mild pulmonary vascular congestion no overt pleural effusions or infiltrates Has been treated for reactive airway was tx initial pneumonia seen on presenting chest x-ray However I do not believe she has pneumonia because there was no leukocytosis, No fever and chill,chest x-ray only one view with her so big size It is very difficult to make a judgment of infiltration or not, And she does not have obvious cough or sputum, Will stop antibiotic Was not need home O2 at home, breathing better but still on 2L Workforce Planner input appreciated, continue current care, continue BiPAP machine, should follow up with pulm as outpatient, needs PFT once lungs are recovered venous doppler on 08/12 with no evidence of DVT so makes PE far less likely need nocturnal oximetry to see if she requires oxygen at night at home and get this approved Obesity hypoventilation syndrome/sleep apnea Upcoming schedule gastric bypass surgery has been rescheduled due to her recent hospitalizations consult pulmonology: seen by Dr. Brar, needs close follow up in office, will need PFT once recovered was on Solu Medrol, change to Prednisone 50mg qAM on 08/13, will continue plan for taper on discharge Acute kidney injury on CKD (chronic kidney disease) stage 3, GFR 30-59 ml/min: Related to stable and improved after holding diuretic Unfortunately she has fluid overloaded but renal not able to tolerate diuretic Diabetic, dyslipidemia, anxiety and depression: Stable continue current medication Accelerated hypertension continue beta-william, add hydralazine P.o. scheduled, continue Norvasc 5mg daily on 2/27 her plans for gastric bypass are on hold for the time being while breathing and renal function are suboptimal Possible discharge soon, however because of her medicine noncompliant and comorbidities she is at high risk of readmission Patient high risk of readmission, Moni is a difficult case Subjective Sitting up in chair, generally feeling ok , not on oxygen at home, however now need 2 L of oxygen, occasional wheezing, bilateral lower extremity 1-2+ edema, Reported was anxious last night required oxygen Review of Systems Constitutional: Positive weakness, or fatigue Respiratory: Occasional cough,no sputum, Cardiac: No chest pain, No orthopnea, No palpitations, Abdomen: No pain, No nausea, No vomiting, No diarrhea, Musculoskeletal: No joint pain, No muscle pain, : No dysuria, No urinary frequency, No incontinence, Neurologic: No paralysis, No weakness, No numbness/tingling, Psychiatric: No depression symptoms, No anhedonism, No anxiety, Heme: No abnormal bleeding/bruising, No clotting problems, Skin: No rash, No itch, No new/changing skin lesions, No color change, No bleeding Physical Exam Vital Signs (Past 24 Hours): Last Vital Signs Temp 36.5 C 08/14/18 07:47 Pulse 77 08/14/18 14:12 Resp 18 08/14/18 14:12 BP 165/103 H 08/14/18 07:47 Pulse Ox 96 08/14/18 14:12 Physical Exam: General Appearance: Morbid obesity, pleasant, smiling, conversational, no apparent distress, Eyes: normal inspection, PERRL, EOMI, sclerae normal ENT: normal ENT inspection, hearing grossly normal, pharynx normal Neck: supple, no adenopathy, thyroid normal, no JVD, no carotid bruits, trachea midline Respiratory/Chest: chest non-tender, normal breath sounds, no respiratory distress, no accessory muscle use, no rales, wheezing Cardiovascular: regular rate, rhythm, no JVD, no murmur Abdomen: normal bowel sounds, non tender, soft, no organomegaly, Extremities: normal range of motion, non-tender, normal inspection, 2+ pedal edema, no calf tenderness, normal capillary refill, pelvis stable, joint has no limited range of motion, capillary refill is normal, no cyanosis clubbing Neurologic/Psychiatric: credit adjuster II-XII nml as tested, no motor/sensory deficits, alert, normal mood/affect, oriented x 3 Skin: normal color, warm/dry, no rash Lymphatic: no adenopathy Results & Data Laboratory Results Laboratory Results - last 24 hr 08/13/18 08/13/18 08/13/18 15:47 16:24 20:15 Sodium 139 Potassium 5.4 H Chloride 105 Carbon Dioxide 31 Anion Gap 3.0 BUN 53 H Creatinine 2.06 H Est Cr Clr Drug Dosing 51.0 Est GFR ( Amer) 29.8 Est GFR (Non-Af Amer) 25.7 BUN/Creatinine Ratio 25.7 H Glucose 214 H POC Glucose 225 H 199 H Calcium 9.1 Phosphorus Magnesium 08/14/18 08/14/18 08/14/18 06:09 07:34 11:48 Sodium 141 Potassium 4.6 Chloride 106 Carbon Dioxide 31 Anion Gap 4.0 BUN 54 H Creatinine 2.12 H Est Cr Clr Drug Dosing 49.6 Est GFR ( Amer) 28.8 Est GFR (Non-Af Amer) 24.8 BUN/Creatinine Ratio 25.3 H Glucose 126 H POC Glucose 129 H 103 H Calcium 9.0 Phosphorus 3.7 Magnesium 2.4 (1) CHF (congestive heart failure) Heart failure chronicity: unspecified Heart failure type: unspecified Qualified Code(s): I50.9 - Heart failure, unspecified
--- NOTE | 2018-08-14 15:00 | Progress Note ---
DATE: 08/14/2018 PULMONARY PROGRESS NOTE TIME: 2:40 p.m. SUBJECTIVE: The patient is still short of breath with relatively minimal exertion. She feels it is a little better than when she came in. She is coughing frequently. This is increased with deep breathing. She tried BiPAP 2 or 3 times last night for relatively short periods. She states she was too nasally congested to tolerate it. I believe it is more than that. She has had a fair amount of oozing from her abdominal wall where she received the anticoagulant injections. OBJECTIVE: GENERAL: The patient appeared comfortable at rest. She remains a little bit emotionally labile. VITAL SIGNS: Weight today was 179 kilograms. This reflects a 1.8 kilogram weight loss compared with admission. LUNGS: Lung walter revealed mild wheeze and rhonchi bilaterally on expiration. It should be noted that she is receiving a neb treatment at this time. Respiratory rate 18. Saturation 96% on 2 liters. Nursing staff mentions that they feel the patient is afraid to come off of oxygen. ABDOMEN: Abdominal wall exam reveals an area of ecchymosis in the left lower abdomen related to the injections. LABORATORY DATA: The BUN today was 54 with a creatinine 2.12. Yesterday's creatinine 2.06. IMPRESSION: 1. Shortness of breath - likely multifactorial. 2. Obesity hypoventilation. 3. Obstructive sleep apnea - severe. 4. Diastolic congestive heart failure. 5. Chronic kidney disease. COMMENTS AND RECOMMENDATIONS: Will order some fluticasone nasal spray for her nasal congestion. Will order a repeat CBC. The prior CBC from 08/09 was showing a decrease in her white count at that time. We will try to do a bedside spirometry if feasible. I have encouraged the patient to try the BiPAP during the day and at night in an attempt to get comfortable with it. She states that [facility] called her today and told her they cannot adjust her pressure downward remotely.
[2018-08-14] MEDS: OXYCODONE/ACETAMINOPHEN 10-325 TAB PO PRN (16:02)
[2018-08-14] MEDS: ZINC SULFATE 220 MG CAPSULE PO SCH (21:15)
[2018-08-14] MEDS: ATORVASTATIN 40 MG TAB PO SCH (21:15)
[2018-08-14] MEDS: guaiFENesin 600 MG TABCR PO SCH (21:16)
[2018-08-14] MEDS: INSULIN GLARGINE 100 UNIT/ML VIAL SQ SCH (21:48)
[2018-08-15] MEDS: IPRATROPIUM BROMIDE NEB SOLN 0.02% 2.5 ML VIAL INH SCH ×4 (02:02→19:31)
[2018-08-15] MEDS: LEVALBUTEROL 1.25MG/0.5ML NEB INH SCH ×4 (02:02→19:31)
[2018-08-15] MEDS: LEVOTHYROXINE SODIUM 50 MCG TABLET PO SCH (05:47)
[2018-08-15 05:56] LABS: Basophils # (auto) 0.02 K/uL (0-0.2); Basophils % (auto) 0.3 %; Eosinophils # (auto) 0.04 K/uL (0-0.5); Eosinophils % (auto) 0.5 %; Hematocrit (blood only) 36.4 % (37-47); Hemoglobin 11.4 g/dL (12.0-16.0); Immature Granulocytes # (auto) 0.14 K/uL (0.00-0.02); Immature Granulocytes % (auto) 1.8 %; Lymphocytes # (auto) 1.59 K/uL (1.2-3.4); Lymphocytes % (auto) 20.5 %; Mean Corpuscular Hgb Conc 31.3 g/dL (32-36); Mean Corpuscular Volume 90.5 fL (80-100); Mean Platelet Volume 10.7 fL (7.4-10.4); Monocytes # (auto) 0.72 K/uL (0.11-0.59); Monocytes % (auto) 9.3 %; Neutrophils # (auto) 5.26 K/uL (1.4-6.5); Neutrophils % (auto) 67.6 %; Platelet Count 220 K/uL (130-400); RDW Coefficient of Variation 14.1 % (11.5-14.5); RDW Standard Deviation 47.2 fL (36.4-46.3); Red Blood Count 4.02 M/uL (4.2-5.4); White Blood Count 7.77 K/uL (4.8-10.8)
[2018-08-15 06:24] LABS: BUN Creatinine Ratio 26.2 (10-20); Calcium 8.8 mg/dl (8.5-10.1); Creatinine Clr Calc Pharmacy 46.5 ml/min; Est GFR (African American) 26.6; Magnesium 2.1 mg/dl (1.8-2.4); Phosphorus 3.7 mg/dl (2.5-4.9); Potassium 5.2 mmol/L (3.5-5.1)
[2018-08-15] MEDS: ARFORMOTEROL TART 15MCG/2ML VIAL INH SCH ×2 (07:04→19:30)
--- NOTE | 2018-08-15 08:28 | Nephrology Progress Note ---
Date of Service August 15, 2018 Assessment & Plan (1) Acute kidney injury: -- Clinically suspect PATY due to intravascular volume contraction. Renal function stable.. Baseline creatinine has been 1.6. Renal impairment is on the basis of DM, HTN, obesity -- Continue to hold diuretics, as pt remain net negative, hrenal function slightly owrsened, ? intravascular volume depletion, encourage fluid intake, aim for net even, if continue to be negative, will consider geltle iV fluid --encouraged to use BiPAP Will follow (2) CKD (chronic kidney disease) stage 3, GFR 30-59 ml/min: -- Baseline creatinine has been 1.6. Renal impairment is on the basis of DM, HTN, obesity (3) Pulmonary edema: -- (4) Morbid obesity with BMI of 60.0-69.9, adult: Jeni Guthrie was seen & examined in her hospital room this morning. She was breathing fine on O2 at 2 L / min NC and she feels overall doing better. Has decent urine output net negative, > 1.5 L. Renal function slightly worsened, creatinine 2.3, hyperkalemia resolved. Physical Exam Vital Signs (Past 24 Hours): Last Vital Signs Temp 36.8 C 08/15/18 08:02 Pulse 68 08/15/18 08:02 Resp 16 08/15/18 08:02 BP 158/70 H 08/15/18 08:02 Pulse Ox 94 08/15/18 08:02 Constitutional: WD/WN, vitals as above Respiratory: Auscultation: + diminished lung sounds and + wheezes Cardiovascular: Rate/Rhythm: regular rate and regular rhythm Heart Sounds: normal S1 and normal S2 Extremities: + edema
[2018-08-15] MEDS: guaiFENesin SUGAR FREE 200 MG/10 ML UDC PO PRN ×3 (09:36→23:41)
[2018-08-15] MEDS: POTASSIUM CHLORIDE 20 MEQ/15 ML UDC PO STA ×2 (09:37→12:47)
[2018-08-15] MEDS: HEPARIN SOD 5,000 UNIT/0.5 ML VIAL SQ SCH ×2 (09:37→21:30)
[2018-08-15] MEDS: INSULIN LISPRO 100 UNIT/ML SC SCH ×4 (09:38→21:33)
[2018-08-15] MEDS: HydrALAZINE 10 MG TAB PO SCH ×3 (09:40→20:27)
[2018-08-15] MEDS: BusPIRone 15 MG TAB PO SCH ×2 (09:40→20:27)
[2018-08-15] MEDS: predniSONE 50 MG TAB PO SCH (09:40)
[2018-08-15] MEDS: LORazepam 1 MG TAB PO SCH ×2 (09:40→23:09)
[2018-08-15] MEDS: ASPIRIN 81 MG ECTAB PO SCH (09:40)
[2018-08-15] MEDS: FENOFIBRATE NANOCRYSTALLIZED 145 MG TABLET PO SCH (09:41)
[2018-08-15] MEDS: FLUCONAZOLE 100 MG TAB PO SCH (09:41)
[2018-08-15] MEDS: guaiFENesin 600 MG TABCR PO SCH ×2 (09:41→20:26)
[2018-08-15] MEDS: MAGNESIUM OXIDE 400 MG TAB PO SCH (09:41)
[2018-08-15] MEDS: ESCITALOPRAM OXALATE 20 MG TAB PO SCH (09:41)
[2018-08-15] MEDS: METOPROLOL SUCC 50MG EXT REL TAB PO SCH (09:41)
[2018-08-15] MEDS: AMLODIPINE BESYLATE 5 MG TAB PO SCH (09:41)
[2018-08-15] MEDS: FLUTICASONE PROPIONATE NA SPR 16 GM BTL SCH (09:42)
--- NOTE | 2018-08-15 10:27 | Progress Note ---
DATE: 08/15/2018 PULMONARY PROGRESS NOTE TIME: 10:00 a.m. SUBJECTIVE: The patient is about the same. She indicated she was too nasally congested to wear the BiPAP last night. She is trying BiPAP this morning. It is notable that she does not have her nose down into the nasal mask portion of the hybrid. Thus, the area was just leaking around. I did explain this to her. She thinks her wheezing may be a little less and her cough may be a little better. She has not ambulated outside of the room. OBJECTIVE: GENERAL: The patient appeared comfortable at rest. She seems a little better. VITAL SIGNS: Temperature is 36.8. Heart rate 68 per minute. Rhythm is regular. Blood pressure 158/70. Her blood pressures have been slightly improved today compared with prior. LUNGS: Auscultation of the lung walter reveals mild wheeze bilaterally on expiration. She is not coughing with deep inspiration that she had been previously. Respiratory rate 16. Oxygen saturation 94% on room air. EXTREMITIES: Revealed trace edema. LABORATORY DATA: White count today is 7.77. Hemoglobin 11.4. Platelets 220,000. Electrolytes show sodium 139, potassium 5.2, chloride 105, bicarbonate 32. BUN 59 with creatinine 2.26. Yesterday, creatinine was 2.12. IMPRESSION: 1. Shortness of breath. 2. Obesity hypoventilation. 3. Severe obstructive sleep apnea - intolerant of BiPAP. 4. Diastolic congestive heart failure. 5. Chronic kidney disease. COMMENTS AND RECOMMENDATIONS: The patient is to have a bedside pulmonary function test today. She had been hoping that [facility] would adjust the pressure on her BiPAP as had been previously requested by Dr. Crystal of the sleep department. They indicated they will not do that while she is in the hospital. Thus, she has agreed to try our BiPAP, but using her own mask. We will encourage ambulation. I am going to repeat a chest x-ray since her last one was 6 days ago and she has not resolved.
[2018-08-15] MEDS ORDERED: SODIUM POLYSTYRENE SULFONATE 30 GM/120 ML UDP PO STA (11:51)
[2018-08-15] MEDS ORDERED: SODIUM POLYSTYRENE SULFONATE 15G/60ML SUSP PO ONE (12:00)
--- NOTE | 2018-08-15 13:37 | XRay Report ---
XR chest 2V routine CLINICAL HISTORY: 57 years-old Female presenting with sob, cough. TECHNIQUE: PA and lateral views of the chest were obtained. COMPARISON: 08/09/2018. FINDINGS: Atherosclerosis of the aortic arch. Cardiac silhouette enlarged. Mild pulmonary vascular prominence a nd bronchial wall cuffing. Vague opacity in the right lower lung. Trace pleural effusions. No pneumot horax. Degenerative changes of the thoracic spine. Left shoulder arthroplasty. Upper abdomen normal. IMPRESSION: 1. Cardiomegaly with volume overload/congestive change. 2. Findings concerning for a developing right lower lung infiltrate concerning for pneumonia versus asymmetric pulmonary edema. Electronically signed by: Geraldo Aaron M.D. 08/15/2018 1:36 PM
--- NOTE | 2018-08-15 14:52 | Hospitalist Progress Note ---
Date of Service August 15, 2018 Assessment & Plan (1) CHF (congestive heart failure): (2) Obesity hypoventilation syndrome: (3) Pulmonary edema: (4) Acute kidney injury: (5) HTN (hypertension): (6) CKD (chronic kidney disease) stage 3, GFR 30-59 ml/min: (7) Obstructive sleep apnea on CPAP: (8) Peripheral neuropathy: (9) Morbid obesity with BMI of 60.0-69.9, adult: 57-year-old white female admitted on August 07, 2018 because of hypoxic, Hypoxia likely secondary to several reasons such as Obesity hypoventilation syndrome, and CHF exacerbation Hypoxia upon admission likely because of morbid obesity with Obesity hypoventilation syndrome, and CHF exacerbation, Morbid obesity with history of TRUMAN Significant non compliance with cpap Chest x-ray from 08/09 shows some mild pulmonary vascular congestion no overt pleural effusions or infiltrates Has been treated for reactive airway was tx initial pneumonia seen on presenting chest x-ray, repeated Xray: concerning for a developing right lower lung infiltrate concerning for pneumonia versus asymmetric pulmonary edema. I still do not believe she has pneumonia because there was no leukocytosis, No fever and chill,chest x-ray only one view with her so big size It is very difficult to make a judgment of infiltration or not, And she does not have obvious cough or sputum, no abx Was not need home O2 at home, breathing better but still on 2L Inventory Control Manager input appreciated, continue current care, continue BiPAP machine, should follow up with pulm as outpatient, needs PFT once lungs are recovered venous doppler on 08/12 with no evidence of DVT so makes PE far less likely need nocturnal oximetry to see if she requires oxygen at night at home and get this approved Obesity hypoventilation syndrome/sleep apnea Upcoming schedule gastric bypass surgery has been rescheduled due to her recent hospitalizations Morning function test was done in bedside, we will follow-up with right of way agent Was on Solu Medrol, change to Prednisone 50mg qAM on 08/13, will start tapering Acute kidney injury on CKD (chronic kidney disease) stage 3, GFR 30-59 ml/min: Related to stable and improved after holding diuretic, potline monitor recommend fluid intake and given IV fluid if needed Unfortunately she has fluid overloaded but renal not able to tolerate diuretic Diabetic, dyslipidemia, anxiety and depression: Stable continue current medication Accelerated hypertension, seems a little bit better after adding scheduled hydralazine, continue beta-william, hydralazine P.o. continue Norvasc 5mg daily on 08/13 her plans for gastric bypass are on hold for the time being while breathing and renal function are suboptimal Possible vaginal yeast infection, continue Diflucan to complete full course Patient is challenging case, this is her readmission Subjective Was not feeling good because Not able to use BiPAP machine, stting up in chair, continue need 2 L of oxygen, occasional wheezing, bilateral lower extremity 1-2+ edema Review of Systems Constitutional: Positive weakness, or fatigue Respiratory: Occasional cough,no sputum, Cardiac: No chest pain, No orthopnea, No palpitations, Abdomen: No pain, No nausea, No vomiting, No diarrhea, Musculoskeletal: No joint pain, No muscle pain, : No dysuria, No urinary frequency, No incontinence, Neurologic: No paralysis, No weakness, No numbness/tingling, Psychiatric: No depression symptoms, No anhedonism, No anxiety, Heme: No abnormal bleeding/bruising, No clotting problems, Skin: No rash, No itch, No new/changing skin lesions, No color change, No bleeding Physical Exam Vital Signs (Past 24 Hours): Last Vital Signs Temp 36.8 C 08/15/18 08:02 Pulse 66 08/15/18 14:18 Resp 16 08/15/18 14:18 BP 158/70 H 08/15/18 08:02 Pulse Ox 92 08/15/18 14:18 Physical Exam: General Appearance: Looks tired than yesterday, morbid obesity, conversational, WD/WN, no apparent distress, Eyes: normal inspection, PERRL, EOMI, sclerae normal ENT: normal ENT inspection, hearing grossly normal, pharynx normal Neck: supple, no adenopathy, thyroid normal, no JVD, no carotid bruits, trachea midline Respiratory/Chest: chest non-tender, decreased breath sounds, no respiratory distress, no accessory muscle use, rales, occasional wheezing Cardiovascular: regular rate, rhythm, no JVD, no murmur Abdomen: normal bowel sounds, non tender, soft, no organomegaly, Extremities: normal range of motion, non-tender, normal inspection, 2+ pedal edema, no calf tenderness, normal capillary refill, pelvis stable, joint has no limited range of motion, capillary refill is normal, no cyanosis clubbing Neurologic/Psychiatric: core machine tender II-XII nml as tested, no motor/sensory deficits, alert, normal mood/affect, oriented x 3 Skin: normal color, warm/dry, no rash Lymphatic: no adenopathy Results & Data Laboratory Results Laboratory Results - last 24 hr 08/14/18 08/14/18 08/15/18 16:38 20:43 05:15 WBC RBC Hgb Hct MCV MCH MCHC RDW Std Deviation RDW Coeff of Chantal Plt Count MPV Immature Gran % (Auto) Neut % (Auto) Lymph % (Auto) Greenlee % (Auto) Eos % (Auto) Baso % (Auto) Immature Gran # (Auto) Neut # (Auto) Lymph # (Auto) Greenlee # (Auto) Eos # (Auto) Baso # (Auto) Sodium 139 Potassium 5.2 H Chloride 105 Carbon Dioxide 32 Anion Gap 2.0 L BUN 59 H Creatinine 2.26 H Est Cr Clr Drug Dosing 46.5 Est GFR ( Amer) 26.6 Est GFR (Non-Af Amer) 23.0 BUN/Creatinine Ratio 26.2 H Glucose 136 H POC Glucose 125 H 127 H Calcium 8.8 Phosphorus 3.7 Magnesium 2.1 08/15/18 08/15/18 08/15/18 05:15 07:45 11:51 WBC 7.77 RBC 4.02 L Hgb 11.4 L Hct 36.4 L MCV 90.5 MCH 28.4 MCHC 31.3 L RDW Std Deviation 47.2 H RDW Coeff of Chantal 14.1 Plt Count 220 MPV 10.7 H Immature Gran % (Auto) 1.8 Neut % (Auto) 67.6 Lymph % (Auto) 20.5 Greenlee % (Auto) 9.3 Eos % (Auto) 0.5 Baso % (Auto) 0.3 Immature Gran # (Auto) 0.14 H Neut # (Auto) 5.26 Lymph # (Auto) 1.59 Greenlee # (Auto) 0.72 H Eos # (Auto) 0.04 Baso # (Auto) 0.02 Sodium Potassium Chloride Carbon Dioxide Anion Gap BUN Creatinine Est Cr Clr Drug Dosing Est GFR ( Amer) Est GFR (Non-Af Amer) BUN/Creatinine Ratio Glucose POC Glucose 154 H 177 H Calcium Phosphorus Magnesium (1) CHF (congestive heart failure) Heart failure chronicity: unspecified Heart failure type: unspecified Qualified Code(s): I50.9 - Heart failure, unspecified
--- NOTE | 2018-08-15 14:57 | Pharmacy Report ---
Pharmacy Glycemic Short Note 2 - Date of Service August 15, 2018 - Glycemic Short BSG Results (Last 24 hours): 08/14/18 08/14/18 08/15/18 16:38 20:43 05:15 Glucose 136 H POC Glucose 125 H 127 H 08/15/18 08/15/18 07:45 11:51 Glucose POC Glucose 154 H 177 H OUTPATIENT ANTIDIABETIC REGIMEN: Trulicity SQ weekly Lantus 150 units SQ HS Admelog CF of 5 and CR of 2 ASSESSMENT: BSGs continue to look good today, she required 113 units of insulin yesterday. Prednisone 50mg daily continues. Will continue with standing insulin orders. PLAN FOR INPATIENT GLYCEMIC CONTROL: * Basal insulin * Lantus 30 units SQ given x 1 this am, then Lantus per scale SQ HS * 30 units for BSG less than 200 mg/dL * 40 units for BSG 200 mg/dL or greater * Bolus insulin - tighten CF * NovoLog per scale ACHS or Q6hrs while NPO * Goal Range: Low 110 mg/dL - High 140 mg/dL * Correction Factor: 10 mg/dL/unit * Nutritional / Prandial insulin per carb ratio of 1 unit per 3 grams CHO consumed RECOMMENDATIONS FOR DISCHARGE: * Patient's HbA1C is becoming better controlled. Consider continuing home regimen as long as she does not have any problems with hypoglycemia.
[2018-08-15] MEDS: ACETAMINOPHEN 325 MG TAB PO PRN ×2 (17:36→21:40)
[2018-08-15] MEDS: ZINC SULFATE 220 MG CAPSULE PO SCH (20:23)
[2018-08-15] MEDS: ATORVASTATIN 40 MG TAB PO SCH (20:26)
[2018-08-15] MEDS: INSULIN GLARGINE 100 UNIT/ML VIAL SQ SCH (21:31)
[2018-08-15] MEDS: TRAZODONE HCL 50 MG TAB PO PRN (23:09)
[2018-08-16] MEDS: LEVALBUTEROL 1.25MG/0.5ML NEB INH SCH ×4 (02:01→19:30)
[2018-08-16] MEDS: IPRATROPIUM BROMIDE NEB SOLN 0.02% 2.5 ML VIAL INH SCH ×4 (02:01→19:30)
[2018-08-16] MEDS: LEVOTHYROXINE SODIUM 50 MCG TABLET PO SCH (06:39)
[2018-08-16] MEDS: ARFORMOTEROL TART 15MCG/2ML VIAL INH SCH ×2 (07:25→19:30)
[2018-08-16 07:34] LABS: Albumin Level 3.2 gm/dl (3.4-5.0); BUN Creatinine Ratio 29.9 (10-20); Calcium 9.1 mg/dl (8.5-10.1); Creatinine Clr Calc Pharmacy 49.9 ml/min; Est GFR (African American) 29.5; Est GFR (Non-African American) 25.4; Magnesium 1.9 mg/dl (1.8-2.4); Potassium 4.8 mmol/L (3.5-5.1)
[2018-08-16 07:37] LABS: Albumin Globulin Ratio 0.8 (0.9-2); Bilirubin,Total 0.6 mg/dl (0.2-1); Total Protein 7.2 gm/dl (6.4-8.2)
[2018-08-16] MEDS: ONDANSETRON INJ 2 MG/ML 2 ML VIAL IV PRN (07:38)
[2018-08-16] MEDS ORDERED: INSULIN GLARGINE 100 UNIT/ML VIAL SQ ONE (08:00)
[2018-08-16] MEDS ORDERED: FLUCONAZOLE 100 MG TAB PO SCH (09:00)
[2018-08-16] MEDS: INSULIN LISPRO 100 UNIT/ML SC SCH ×4 (10:11→21:33)
[2018-08-16] MEDS: ASPIRIN 81 MG ECTAB PO SCH (10:13)
[2018-08-16] MEDS: FLUCONAZOLE 100 MG TAB PO SCH (10:13)
[2018-08-16] MEDS: FENOFIBRATE NANOCRYSTALLIZED 145 MG TABLET PO SCH (10:13)
[2018-08-16] MEDS: MAGNESIUM OXIDE 400 MG TAB PO SCH (10:13)
[2018-08-16] MEDS: ACETAMINOPHEN 325 MG TAB PO PRN ×2 (10:13→14:48)
[2018-08-16] MEDS: predniSONE 50 MG TAB PO SCH (10:14)
[2018-08-16] MEDS: AMLODIPINE BESYLATE 5 MG TAB PO SCH (10:14)
[2018-08-16] MEDS: guaiFENesin 600 MG TABCR PO SCH ×2 (10:14→21:36)
[2018-08-16] MEDS: METOPROLOL SUCC 50MG EXT REL TAB PO SCH (10:14)
[2018-08-16] MEDS: ESCITALOPRAM OXALATE 20 MG TAB PO SCH (10:14)
[2018-08-16] MEDS: HydrALAZINE 10 MG TAB PO SCH ×3 (10:14→21:36)
[2018-08-16] MEDS: BusPIRone 15 MG TAB PO SCH ×2 (10:14→21:36)
[2018-08-16] MEDS: HEPARIN SOD 5,000 UNIT/0.5 ML VIAL SQ SCH ×2 (10:18→21:35)
[2018-08-16] MEDS: ERGOCALCIFEROL 50,000 UNITS CAP PO SCH (10:19)
[2018-08-16] MEDS: LORazepam 1 MG TAB PO SCH ×2 (10:26→22:03)
[2018-08-16] MEDS: FLUTICASONE PROPIONATE NA SPR 16 GM BTL SCH (10:32)
[2018-08-16] MEDS: guaiFENesin SUGAR FREE 200 MG/10 ML UDC PO PRN ×2 (10:36→20:27)
--- NOTE | 2018-08-16 10:37 | Nephrology Progress Note ---
Date of Service August 16, 2018 Assessment & Plan (1) Acute kidney injury: 57-year-old female with morbid obesity, hypertension, diabetes, stage III CKD, baseline creatinine around 1.6 with history of recurrent acute kidney injury, admitted to the hospital with shortness of breath. On admissi on she was considered to be volume overloaded with pulmonary congestion and was given IV diuretics. Renal function worsened to creatinine up to 3.0. Diuretics has been on hold for last almost 1 week, renal function improved and creatinine staying somewhat stable around 2.0-2.2. She has been net negative off of diuretics. However, no significant improvement in her respiratory status which thought to be secondary to underlying severe obstructive sleep apnea, inability to use BiPAP regularly, anxiety and obesity hypoventilation syndrome. Chest x-ray yesterday was concerning for right lower lobe infiltrate however no fever, leukocytosis. --consider empiric antibiotic for chest x-ray suggestive of right lower lobe pneumonia, persistent cough and shortness of breath. -- Continue to hold diuretics, as pt remain net negative, renal function relatively stable, encourage fluid intake, aim for net even, if continue to be negative, will consider geltle iV fluid --encouraged to use BiPAP Will follow (2) CKD (chronic kidney disease) stage 3, GFR 30-59 ml/min: -- Baseline creatinine has been 1.6. Renal impairment is on the basis of DM, HTN, obesity (3) Pulmonary edema: -- (4) Morbid obesity with BMI of 60.0-69.9, adult: Jeni Guthrie was seen & examined in her hospital room this morning. She was breathing fine on O2 at 2 L / min NC. She had an episode of vomiting and diarrhea early this morning which currently resolved however she has occasional nausea. She has been having cough and congestion. Has decent urine output net negative, > 0.5 L. Renal function relatively stable, hyperkalemia resolved. Constitutional: + fever Physical Exam Vital Signs (Past 24 Hours): Last Vital Signs Temp 36.7 C 08/16/18 06:58 Pulse 78 08/16/18 08:00 Resp 20 08/16/18 06:58 BP 159/77 H 08/16/18 06:58 Pulse Ox 92 08/16/18 06:58 Constitutional: WD/WN, vitals as above Respiratory: Auscultation: + diminished lung sounds and + wheezes Cardiovascular: Rate/Rhythm: regular rate and regular rhythm Heart Sounds: normal S1 and normal S2 Extremities: + edema
--- NOTE | 2018-08-16 12:02 | Progress Note ---
DATE: 08/16/2018 PULMONARY PROGRESS NOTE TIME: 10:45 a.m. SUBJECTIVE: The patient had a bad night. She states at approximately 4:00 a.m., she developed vomiting and diarrhea. She states she had to go to the bathroom approximately 10 times. Prior to that, she had tried the BiPAP for about 2 hours after 2:00 a.m. She states that Annie was able to fix her own machine so that the pressures were lowered to 15/11. She claims she was not bothered by the pressure. I have no idea, however, if she actually had the mask on properly. She states that her breathing is about the same. She indicates that she walked about [facility] up the hallway last evening and did pretty good, so she was feeling better about that. OBJECTIVE: GENERAL: The patient appeared in no distress. She has had no fevers. Her weight today is 175.4 kilograms. Since August 09, that is down 6.5 kilograms. This was likely accelerated weight loss after the vomiting and diarrhea, however. VITAL SIGNS: Heart rate 78. Blood pressure 159/77. Respiratory rate 20. No distress. LUNGS: Clear. Saturation 92% on room air. LABORATORY DATA: BUN today is elevated at 62 with a creatinine 2.08. The creatinine is surprisingly a little lower than yesterday. ASSESSMENT: The patient had a chest x-ray yesterday. This shows increased markings in the right lower lobe. Could not exclude an early pneumonic infiltrate versus pulmonary edema as per the radiologist's report. It really does not look much like pulmonary edema, I do not believe. Clinically, she is not having pneumonia symptoms either. We will repeat the x-ray for tomorrow morning. Otherwise, would keep her therapy the same.
[2018-08-16] MEDS: SODIUM CHLORIDE 0.9% 1000ML 1,000 ML IV SCH (12:34)
--- NOTE | 2018-08-16 14:25 | Pharmacy Report ---
Pharmacy Glycemic Short Note 2 - Date of Service August 16, 2018 - Glycemic Short BSG Results (Last 24 hours): 08/15/18 08/15/18 08/16/18 16:47 20:20 06:27 Glucose 148 H POC Glucose 95 135 H 08/16/18 08/16/18 07:18 11:29 Glucose POC Glucose 162 H 208 H OUTPATIENT ANTIDIABETIC REGIMEN: Trulicity SQ weekly Lantus 150 units SQ HS Admelog CF of 5 and CR of 2 ASSESSMENT: * Jerri received 111 units of insulin yesterday (20 units of basal- 91 units of bolus). * She remains on prednisone 50 mg PO daily * Fasting BSG of 162 mg/dL is above goal. Fasting has been trending upward that past few days. I suspect this is due to large decreases in basal insulin on consecutive days (08/12 -08/15: 80 units -> 60 units -> 30 units -> 20 units). I am uncertain why the patient received a partial dose of 20 units last evening. She was ordered 30-40 units. I ordered a dose of 10 units this AM to make up for partial dose and I will increase Lantus scale for HS. * No changes will made to Novolog coverage today. * Of note, lunch BSG of 208 mg/dL was drawn 1.5 hours after am Novolog given, therefore full effect not seen. PLAN FOR INPATIENT GLYCEMIC CONTROL: * Basal insulin * Lantus 10 units SQ given x 1 this am, then Lantus per scale SQ HS * 40 units for BSG less than 180 mg/dL * 45 units for BSG 180 mg/dL or greater * Bolus insulin * NovoLog per scale ACHS or Q6hrs while NPO * Goal Range: Low 110 mg/dL - High 140 mg/dL * Correction Factor: 10 mg/dL/unit * Nutritional / Prandial insulin per carb ratio of 1 unit per 3 grams CHO consumed RECOMMENDATIONS FOR DISCHARGE: * Patient's HbA1C is becoming better controlled. Consider continuing home regimen as long as she does not have any problems with hypoglycemia.
--- NOTE | 2018-08-16 17:23 | Hospitalist Progress Note ---
Date of Service August 16, 2018 Assessment & Plan (1) CHF (congestive heart failure): (2) Obesity hypoventilation syndrome: (3) Pulmonary edema: (4) Acute kidney injury: (5) HTN (hypertension): (6) CKD (chronic kidney disease) stage 3, GFR 30-59 ml/min: (7) Obstructive sleep apnea on CPAP: (8) Peripheral neuropathy: (9) Morbid obesity with BMI of 60.0-69.9, adult: 57-year-old white female admitted on August 07, 2018 because of hypoxic, has been having worsening renal function and not able to tolerate BiPAP machine Hypoxia likely secondary to several reasons such as Obesity hypoventilation syndrome, and CHF exacerbation which is supported by pulmonary edema and chest x-ray and lower extremity swelling Hypoxia upon admission likely because of morbid obesity with Obesity hypoventilation syndrome, and CHF exacerbation, Morbid obesity with history of TRUMAN Significant non compliance with bipap Chest x-ray from 08/09 shows some mild pulmonary vascular congestion no overt pleural effusions or infiltrates Has been treated for reactive airway was tx initial pneumonia seen on presenting chest x-ray, I do not believe she has pneumonia because there was no leukocytosis, No fever and chill,chest x-ray only one view with her so big size It is very difficult to make a judgment of infiltration or not, And she does not have obvious cough or sputum, no abx for now, however will repeat a chest x-ray tomorrow morning Was not need home O2 at home, breathing better but still on 2-3L Hide Inspector And Sorter input appreciated, continue current care, continue BiPAP machine, should follow up with pulm as outpatient, venous doppler on 08/12 with no evidence of DVT so makes PE far less likely need nocturnal oximetry to see if she requires oxygen at night at home and get this approved Obesity hypoventilation syndrome/sleep apnea Upcoming schedule gastric bypass surgery has been rescheduled due to her recent hospitalizations Was on Solu Medrol, change to Prednisone 50mg qAM on 08/13, will start tapering Acute kidney injury on CKD (chronic kidney disease) stage 3, GFR 30-59 ml/min: Renal function continue getting worse, Renal function continue related to stable and improved after holding diuretic, production technologist recommend fluid intake and given IV fluid if needed Because of patient has about 10 times diarrhea, I will give gentle IV fluid today, and discontinue fluid restriction Diabetic, dyslipidemia, anxiety and depression: Stable continue current medication Accelerated hypertension, seems a little bit better after adding scheduled hydralazine, continue beta-william, hydralazine P.o. continue Norvasc 5mg daily on 08/13 Possible vaginal yeast infection, continue Diflucan to complete full course Patient is challenging case, this is her readmission Subjective Again was not feeling good because Not able to use BiPAP machine, and nighttime secondary to nasal congestion Was having nausea aeration as follow-up and has more than 10 times diarrhea this morning stting up in chair, continue need 2 L of oxygen, No obvious cough or sputum, no wheezing Denies fever and chill, Review of Systems Constitutional: Positive weakness, or fatigue Respiratory: See above Cardiac: No chest pain, No orthopnea, No palpitations, Abdomen: No pain, No nausea, No vomiting, No diarrhea, Musculoskeletal: 1-2+ edema is the same, no joint pain, No muscle pain, : No dysuria, No urinary frequency, No incontinence, Neurologic: No paralysis, No weakness, No numbness/tingling, Psychiatric: No depression symptoms, No anhedonism, No anxiety, Heme: No abnormal bleeding/bruising, No clotting problems, Skin: No rash, No itch, No new/changing skin lesions, No color change, No bleeding Constitutional: + fatigue; no fever and no sweats Respiratory: + cough, + chest congestion, + dyspnea on exertion, + snoring and + wheezing; no dyspnea, no hemoptysis, no pain on inspiration, no pain with cough and no sputum production Cardiovascular: + edema; no chest pain, no dyspnea, no orthopnea and no syncope Genitourinary (Female): + vaginal discharge (yeast infection); no dysuria Physical Exam Vital Signs (Past 24 Hours): Last Vital Signs Temp 37.1 C 08/16/18 15:20 Pulse 74 08/16/18 15:20 Resp 16 08/16/18 15:20 BP 108/61 08/16/18 15:20 Pulse Ox 91 08/16/18 15:20 Physical Exam: General Appearance: Looks okay, nose congestion, morbid obesity, conversational, WD/WN, no apparent distress, Eyes: normal inspection, PERRL, EOMI, sclerae normal ENT: normal ENT inspection, hearing grossly normal, pharynx normal Neck: supple, no adenopathy, thyroid normal, no JVD, no carotid bruits, trachea midline Respiratory/Chest: chest non-tender, decreased breath sounds, no respiratory distress, no accessory muscle use, rales, occasional wheezing, no crackles Cardiovascular: regular rate, rhythm, no JVD, no murmur Abdomen: normal bowel sounds, non tender, soft, no organomegaly, Extremities: normal range of motion, non-tender, normal inspection, 2+ pedal edema has been the same as yesterday, no calf tend erness, normal capillary refill, pelvis stable, joint has no limited range of motion, capillary refill is normal, no cyanosis clubbing Neurologic/Psychiatric: psychiatric security nurse II-XII nml as tested, no motor/sensory deficits, alert, normal mood/affect, oriented x 3 Skin: normal color, warm/dry, no rash Lymphatic: no adenopathy Results & Data Laboratory Results Laboratory Results - last 24 hr 08/15/18 08/16/18 08/16/18 20:20 06:27 07:18 Sodium 139 Potassium 4.8 Chloride 103 Carbon Dioxide 31 Anion Gap 5.0 BUN 62 H Creatinine 2.08 H Est Cr Clr Drug Dosing 49.9 Est GFR ( Amer) 29.5 Est GFR (Non-Af Amer) 25.4 BUN/Creatinine Ratio 29.9 H Glucose 148 H POC Glucose 135 H 162 H Calcium 9.1 Magnesium 1.9 Total Bilirubin 0.6 AST 25 ALT 32 Alkaline Phosphatase 60 Total Protein 7.2 Albumin 3.2 L Globulin 4.0 Albumin/Globulin Ratio 0.8 L 08/16/18 08/16/18 11:29 16:22 Sodium Potassium Chloride Carbon Dioxide Anion Gap BUN Creatinine Est Cr Clr Drug Dosing Est GFR ( Amer) Est GFR (Non-Af Amer) BUN/Creatinine Ratio Glucose POC Glucose 208 H 138 H Calcium Magnesium Total Bilirubin AST ALT Alkaline Phosphatase Total Protein Albumin Globulin Albumin/Globulin Ratio (1) CHF (congestive heart failure) Heart failure chronicity: unspecified Heart failure type: unspecified Qualified Code(s): I50.9 - Heart failure, unspecified
[2018-08-16] MEDS ORDERED: TRAZODONE HCL 50 MG TAB PO PRN (19:58)
[2018-08-16] MEDS ORDERED: SODIUM CHLORIDE 0.65% NA SOLN 45 ML (OCEAN) PRN (21:01)
[2018-08-16] MEDS: INSULIN GLARGINE 100 UNIT/ML VIAL SQ SCH (21:34)
[2018-08-16] MEDS: ATORVASTATIN 40 MG TAB PO SCH (21:36)
[2018-08-16] MEDS: ZINC SULFATE 220 MG CAPSULE PO SCH (22:03)
[2018-08-17] MEDS: LORazepam 1 MG TAB PO SCH ×3 (00:07→22:36)
[2018-08-17] MEDS: ACETAMINOPHEN 325 MG TAB PO PRN (00:08)
[2018-08-17] MEDS: TRAZODONE HCL 50 MG TAB PO PRN ×2 (00:40→22:36)
[2018-08-17] MEDS: LEVALBUTEROL 1.25MG/0.5ML NEB INH SCH ×4 (01:53→19:54)
[2018-08-17] MEDS: IPRATROPIUM BROMIDE NEB SOLN 0.02% 2.5 ML VIAL INH SCH ×4 (01:53→19:53)
[2018-08-17] MEDS: LEVOTHYROXINE SODIUM 50 MCG TABLET PO SCH (06:12)
[2018-08-17] MEDS: guaiFENesin SUGAR FREE 200 MG/10 ML UDC PO PRN ×3 (06:12→19:51)
[2018-08-17 07:04] LABS: Calcium 8.5 mg/dl (8.5-10.1); Creatinine Clr Calc Pharmacy 47.4 ml/min; Est GFR (African American) 27.7; Est GFR (Non-African American) 23.9; Magnesium 1.9 mg/dl (1.8-2.4); Potassium 4.9 mmol/L (3.5-5.1)
[2018-08-17] MEDS: ARFORMOTEROL TART 15MCG/2ML VIAL INH SCH ×2 (07:18→19:55)
[2018-08-17] MEDS: SODIUM CHLORIDE 0.9% 1000ML 1,000 ML IV SCH (07:42)
[2018-08-17] MEDS: ASPIRIN 81 MG ECTAB PO SCH (08:27)
[2018-08-17] MEDS: predniSONE 20 MG TAB PO SCH (08:27)
[2018-08-17] MEDS: FLUCONAZOLE 100 MG TAB PO SCH (08:28)
[2018-08-17] MEDS: guaiFENesin 600 MG TABCR PO SCH ×2 (08:28→21:15)
[2018-08-17] MEDS: FENOFIBRATE NANOCRYSTALLIZED 145 MG TABLET PO SCH (08:28)
[2018-08-17] MEDS: MAGNESIUM OXIDE 400 MG TAB PO SCH (08:28)
[2018-08-17] MEDS: HydrALAZINE 10 MG TAB PO SCH ×3 (08:28→21:16)
[2018-08-17] MEDS: BusPIRone 15 MG TAB PO SCH ×2 (08:28→21:16)
[2018-08-17] MEDS: METOPROLOL SUCC 50MG EXT REL TAB PO SCH (08:29)
[2018-08-17] MEDS: ESCITALOPRAM OXALATE 20 MG TAB PO SCH (08:29)
[2018-08-17] MEDS: AMLODIPINE BESYLATE 5 MG TAB PO SCH (08:29)
[2018-08-17] MEDS: FLUTICASONE PROPIONATE NA SPR 16 GM BTL SCH (08:32)
[2018-08-17] MEDS: INSULIN LISPRO 100 UNIT/ML SC SCH ×4 (08:33→21:21)
[2018-08-17] MEDS: HEPARIN SOD 5,000 UNIT/0.5 ML VIAL SQ SCH ×2 (08:34→21:19)
--- NOTE | 2018-08-17 09:27 | Nephrology Progress Note ---
Date of Service August 17, 2018 Assessment & Plan (1) Acute kidney injury: 57-year-old female with morbid obesity, hypertension, diabetes, diastolic dysfunction, stage III CKD, baseline creatinine around 1.6 with history of recurrent acute kidney injury, admitted to the hospital with shortness of breath. On admission she was considered to be volume overloaded with pulmonary congestion and was given IV diuretics. Renal function worsened to creatinine up to 3.0. Diuretics has been on hold for last almost 1 week, renal function improved but creatinine has been staying around 2.0- 2.2. She has been net negative off of diuretics. However, no significant improvement in her respiratory status which most likely secondary to combination of factors including underlying severe obstructive sleep apnea, inability to use BiPAP regularly, anxiety and obesity hypoventilation syndrome. Chest x-ray on 08/17/18 showed improvement in right lower lobe infiltrate. She has no fever, leukocytosis. -- Continue on the IV fluid for now with ongoing diarrhea. Suggest checking for C diff if diarrhea continues. --encouraged to use BiPAP --hold diuretics for now, however, eventually she will need to be on diuretics due to diastolic dysfunction and there is risk for progressive wo rsening of renal function Will follow (2) CKD (chronic kidney disease) stage 3, GFR 30-59 ml/min: -- Baseline creatinine has been 1.6. Renal impairment is on the basis of DM, HTN, obesity (3) Pulmonary edema: -- (4) Morbid obesity with BMI of 60.0-69.9, adult: Jeni Guthrie was seen & examined in her hospital room this morning. She was breathing fine on O2 at 2 L / min NC. Had another episode of diarrhea this morning, denies abdominal pain. Continues to have cough but congestion improving. Has decent urine output. On IV fluid. Renal function relatively stable, hyperkalemia resolved. Constitutional: + fever Physical Exam Vital Signs (Past 24 Hours): Last Vital Signs Temp 36.6 C 08/17/18 07:46 Pulse 96 H 08/17/18 09:03 Resp 18 08/17/18 07:46 BP 144/67 H 08/17/18 07:46 Pulse Ox 93 08/17/18 07:46 Constitutional: WD/WN, vitals as above Respiratory: Auscultation: + diminished lung sounds and + wheezes Cardiovascular: Rate/Rhythm: regular rate and regular rhythm Heart Sounds: normal S1 and normal S2 Extremities: + edema
--- NOTE | 2018-08-17 09:36 | XRay Report ---
XR chest 2V routine HISTORY: 57 years-old Female lung infiltrates follow-up study in a patient with right lung base opac ities COMPARISON: Chest radiograph 08/15/2018 TECHNIQUE: PA and lateral views of the chest FINDINGS: Cardiac silhouette is enlarged, unchanged. Calcification the thoracic arch. No pneumothorax, pleural effusion or overt pulmonary edema. There is improved aeration of the right lung base. No definite foc al airspace consolidation identified on today's study. Degenerative changes of the right shoulder and spine. Left shoulder arthroplasty. IMPRESSION: 1. Cardiomegaly without overt pulmonary edema. 2. Improved aeration of the right lung base without definite evidence of focal airspace consolidation on today's study to suggest pneumonia. Clinical follow-up recommended. The above report was generated using voice recognition software. It may contain grammatical, syntax o r spelling errors. Electronically signed by: Spencer Tracy M.D. 08/17/2018 9:35 AM
--- NOTE | 2018-08-17 09:59 | Progress Note ---
DATE: 08/17/2018 PULMONARY PROGRESS NOTE TIME: 9:10 a.m. SUBJECTIVE: The patient is feeling somewhat better. She felt poorly yesterday with the vomiting and diarrhea which subsequently resolved. She did not wear BiPAP at all either during the day or at night. She feels that she is somewhat less short of breath. She feels that her cough is loosening. She states she coughed up a little bit of yellow phlegm. OBJECTIVE: GENERAL: The patient is comfortable at rest. Maximum temperature in the past 24 hours is 37.5. VITAL SIGNS: Heart rate is 96 per minute. Rhythm is regular. Blood pressure 144/67. LUNGS: Lung walter revealed mild rhonchi bilaterally. She still is coughing with taking a deep breath. Respiratory rate 18. Saturation 93% on room air. EXTREMITIES: Reveal +1 edema in both lower extremities. There was no cyanosis or clubbing. The patient is currently receiving some IV fluids. Intake yesterday was 1736 and output was 800. The patient's weight is 175.1 kilograms. In the past week, she has lost about 7 kg. LABORATORY DATA: BUN today is 70 with a creatinine of 2.19. These are both slightly higher than yesterday which was 62 and 2.08 respectively. The patient is scheduled for a chest x-ray this morning. That has not been done yet. The prior x-ray from 08/12 suggested the possibility of an infiltrate in the right base, though she has not had any strong suggestion of pneumonia. The repeat will hopefully give us further information. IMPRESSION: 1. Acute bronchitis - suggested clinically - rule out pneumonia. 2. Obesity hypoventilation. 3. Severe obstructive sleep apnea - intolerant of BiPAP. 4. Diastolic congestive heart failure. 5. Chronic kidney disease. COMMENTS AND RECOMMENDATIONS: We will await the results of the chest x-ray from today. The patient seems to be slowly improving. Unfortunately, I do not believe she will tolerate BiPAP at all. She does feel the nebulizer treatments are helping. I spoke with the patient at length about trying to tolerate BiPAP. We also discussed the importance of further weight loss. I will sign off for now. The new pulmonary team will be coming on as of tomorrow. Feel free to reconsult if need be.
[2018-08-17] MEDS ORDERED: TRULICITY SQ SCH (12:00)
[2018-08-17] MEDS: OXYCODONE/ACETAMINOPHEN 10-325 TAB PO PRN (13:53)
--- NOTE | 2018-08-17 15:30 | Hospitalist Progress Note ---
Date of Service August 17, 2018 Assessment & Plan (1) CHF (congestive heart failure): (2) Obesity hypoventilation syndrome: (3) Pulmonary edema: (4) Acute kidney injury: (5) HTN (hypertension): (6) CKD (chronic kidney disease) stage 3, GFR 30-59 ml/min: (7) Obstructive sleep apnea on CPAP: (8) Peripheral neuropathy: (9) Morbid obesity with BMI of 60.0-69.9, adult: 57-year-old white female admitted on August 07, 2018 because of hypoxic, has been having worsening renal function and not able to tolerate BiPAP machine Hypoxia likely secondary to several reasons such as Obesity hypoventilation syndrome, and CHF exacerbation upon admission which is supported by pulmonary edema and chest x-ray and lower extremity swelling Hypoxia upon admission likely because of morbid obesity with Obesity hypoventilation syndrome, and CHF exacerbation, Morbid obesity with history of TRUMAN Significant non compliance with bipap Chest x-ray from 08/09 shows some mild pulmonary vascular congestion no overt pleural effusions or infiltrates Has been treated for reactive airway was tx initial pneumonia seen on presenting chest x-ray, Repeated x-ray today there was no obvious pneumonia Possible acute bronchitis has rule out pneumonia. Severe obstructive sleep apnea - intolerant of BiPAP. seems to be slowly improving. she will nort tolerate BiPAP at all. She does feel the nebulizer treatments are helping. has discussed the importance of further weight loss Was not need home O2 at home, breathing better but still on 2-3L should follow up with pulm as outpatient, venous doppler on 08/12 with no evidence of DVT so makes PE far less likely need nocturnal oximetry to see if she requires oxygen at night at home and get this approved Obesity hypoventilation syndrome/sleep apnea Upcoming schedule gastric bypass surgery has been rescheduled due to her recent hospitalizations Was on Solu Medrol, change to Prednisone 50mg qAM on 08/13, will continue tapering Acute kidney injury on CKD (chronic kidney disease) stage 3, GFR 30-59 ml/min: Renal function continue getting worse, president ceo & founder recommend fluid intake and given IV fluid if needed Because of patient has diarrhea, I continue gentle IV fluid and discontinue fluid restriction Diabetic, dyslipidemia, anxiety and depression: Stable continue current medication Accelerated hypertension, seem better after adding scheduled hydralazine, continue beta-william, hydralazine P.o. continue Norvasc 5mg daily on 08/13 Possible vaginal yeast infection, continue Diflucan to complete full course Have had detailed discussion with patient in length about her conditions, will need to looking for the balance in between of renal function, not using of diuretic and fluid volume, so that she can breathing comfortably and at the same time can preserve her kidney function. Will follow-up cdiff results of the stool Subjective cont have diarrhea this morning, However possible feeling better than yesterday Stting up in chair, continue need 2 L of oxygen, No obvious cough or sputum, no wheezing Denies fever and chill, Review of Systems Constitutional: Positive weakness, or fatigue Respiratory: See above Cardiac: No chest pain, No orthopnea, No palpitations, Abdomen: No pain, No nausea, No vomiting, Musculoskeletal: 1-2+ edema is the same, no joint pain, No muscle pain, : No dysuria, No urinary frequency, No incontinence, Neurologic: No paralysis, No weakness, No numbness/tingling, Psychiatric: No depression symptoms, No anhedonism, No anxiety, Heme: No abnormal bleeding/bruising, No clotting problems, Skin: No rash, No itch, No new/changing skin lesions, No color change, No bleeding Physical Exam Vital Signs (Past 24 Hours): Last Vital Signs Temp 37.0 C 08/17/18 15:08 Pulse 78 08/17/18 15:08 Resp 20 08/17/18 15:08 BP 137/69 08/17/18 15:08 Pulse Ox 93 08/17/18 15:08 (1) CHF (congestive heart failure) Heart failure chronicity: unspecified Heart failure type: unspecified Qualified Code(s): I50.9 - Heart failure, unspecified
[2018-08-17] MEDS: ZINC SULFATE 220 MG CAPSULE PO SCH (21:13)
[2018-08-17] MEDS: ATORVASTATIN 40 MG TAB PO SCH (21:15)
[2018-08-17] MEDS: INSULIN GLARGINE 100 UNIT/ML VIAL SQ SCH (21:23)
[2018-08-18] MEDS: LEVALBUTEROL 1.25MG/0.5ML NEB INH SCH ×4 (01:59→19:18)
[2018-08-18] MEDS: IPRATROPIUM BROMIDE NEB SOLN 0.02% 2.5 ML VIAL INH SCH ×4 (01:59→19:17)
[2018-08-18] MEDS: SODIUM CHLORIDE 0.9% 1000ML 1,000 ML IV SCH (04:25)
[2018-08-18] MEDS: LEVOTHYROXINE SODIUM 50 MCG TABLET PO SCH (06:06)
[2018-08-18] MEDS: ACETAMINOPHEN 325 MG TAB PO PRN (06:07)
[2018-08-18 06:23] LABS: BUN Creatinine Ratio 30.1 (10-20); Calcium 8.3 mg/dl (8.5-10.1); Creatinine Clr Calc Pharmacy 48.1 ml/min; Est GFR (African American) 28.1; Est GFR (Non-African American) 24.3; Magnesium 1.8 mg/dl (1.8-2.4); Potassium 4.7 mmol/L (3.5-5.1)
[2018-08-18] MEDS: ARFORMOTEROL TART 15MCG/2ML VIAL INH SCH ×2 (07:16→19:17)
[2018-08-18] MEDS: LORazepam 1 MG TAB PO SCH ×2 (08:22→21:26)
[2018-08-18] MEDS: guaiFENesin SUGAR FREE 200 MG/10 ML UDC PO PRN ×3 (08:22→22:48)
[2018-08-18] MEDS: OXYCODONE/ACETAMINOPHEN 10-325 TAB PO PRN (08:23)
[2018-08-18] MEDS: BusPIRone 15 MG TAB PO SCH ×2 (08:24→21:27)
[2018-08-18] MEDS: ESCITALOPRAM OXALATE 20 MG TAB PO SCH (08:24)
[2018-08-18] MEDS: METOPROLOL SUCC 50MG EXT REL TAB PO SCH (08:24)
[2018-08-18] MEDS: FENOFIBRATE NANOCRYSTALLIZED 145 MG TABLET PO SCH (08:25)
[2018-08-18] MEDS: guaiFENesin 600 MG TABCR PO SCH ×2 (08:25→21:31)
[2018-08-18] MEDS: ASPIRIN 81 MG ECTAB PO SCH (08:25)
[2018-08-18] MEDS: predniSONE 20 MG TAB PO SCH (08:26)
[2018-08-18] MEDS: FLUCONAZOLE 100 MG TAB PO SCH (08:26)
[2018-08-18] MEDS: MAGNESIUM OXIDE 400 MG TAB PO SCH (08:27)
[2018-08-18] MEDS: AMLODIPINE BESYLATE 5 MG TAB PO SCH (08:27)
[2018-08-18] MEDS: HydrALAZINE 10 MG TAB PO SCH ×3 (08:28→21:25)
[2018-08-18] MEDS: FLUTICASONE PROPIONATE NA SPR 16 GM BTL SCH (08:28)
[2018-08-18] MEDS: HEPARIN SOD 5,000 UNIT/0.5 ML VIAL SQ SCH ×2 (08:52→21:27)
[2018-08-18] MEDS: INSULIN LISPRO 100 UNIT/ML SC SCH ×4 (08:53→21:33)
--- NOTE | 2018-08-18 10:06 | Nephrology Progress Note ---
Date of Service August 18, 2018 Assessment & Plan (1) Acute kidney injury: Jerri is a 57-year-old female with morbid obesity, hypertension, diabetes, diastolic dysfunction, stage III CKD (baseline creatinine around 1.6 mg/dL) with history of recurrent acute kidney injury. She was admitted to the hospital with shortness of breath. On admission she was considered to be volume overloaded with pulmonary congestion and was given IV diuretics. Renal function worsened to creatinine up to 3.0. Diuretics have been held. She has been net negative off of diuretics. IVF started yesterday. Creatinine improving. Chest x-ray on 08/17/18 showed improvement in right lower lobe infiltrate. She has no fever, leukocytosis. Will hold IVF this morning. Document I/O's and repeat metabolic profile tomorrow AM. Medications are appropriate for kidney function. Will require close ou tpatient follow up. No need to restart diuretics at this time. Ecouraged to use BiPAP (2) CKD (chronic kidney disease) stage 3, GFR 30-59 ml/min: -- Baseline creatinine has been 1.6. Renal impairment is on the basis of DM, HTN, obesity (3) Pulmonary edema: (4) Morbid obesity with BMI of 60.0-69.9, adult: Subjective Jerri was seen & examined in her hospital room this morning. Plan of care was discussed with Dr. Gaytan. Diarrhea improved. Edema stable. She is breathing comfortably. Appetite is good. No fevers or chills. Review of Systems All systems reviewed & are unremarkable except as noted in HPI & below Physical Exam Vital Signs (Past 24 Hours): Last Vital Signs Temp 36.8 C 08/18/18 07:32 Pulse 76 08/18/18 07:32 Resp 18 08/18/18 07:32 BP 167/76 H 08/18/18 07:32 Pulse Ox 944 H 08/18/18 07:32 Constitutional: + obese; no acute distress Eyes: no scleral abnormality and no corneal abnormality ENMT: Mouth: no oral mucosal abnormality and oral mucous membranes not dry Neck: normal visual inspection thick, supple Respiratory: normal respiratory effort; no respiratory distress and no labored breathing Auscultation: lungs clear to auscultation bilaterally Cardiovascular: Rate/Rhythm: regular rate and regular rhythm Heart Sounds: normal S1 and normal S2 Extremities: + edema Gastrointestinal (Abdomen): Percussion/Palpation: abdomen soft; abdomen nontender obese Musculoskeletal: Extremities: no cyanosis and no clubbing Skin: no rashes, warm and dry Neurologic: Motor/Sensory: no tremor and no asterixis Psychiatric: Affect: euthymic affect Insight: good insight Results & Data Laboratory Results Laboratory Results - last 24 hr 08/17/18 08/17/18 08/17/18 11:31 16:25 20:47 Sodium Potassium Chloride Carbon Dioxide Anion Gap BUN Creatinine Est Cr Clr Drug Dosing Est GFR ( Amer) Est GFR (Non-Af Amer) BUN/Creatinine Ratio Glucose POC Glucose 128 H 151 H 196 H Calcium Magnesium 08/18/18 08/18/18 05:15 07:30 Sodium 140 Potassium 4.7 Chloride 107 Carbon Dioxide 27 Anion Gap 6.0 BUN 65 H Creatinine 2.16 H Est Cr Clr Drug Dosing 48.1 Est GFR ( Amer) 28.1 Est GFR (Non-Af Amer) 24.3 BUN/Creatinine Ratio 30.1 H Glucose 117 H POC Glucose 112 H Calcium 8.3 L Magnesium 1.8
--- NOTE | 2018-08-18 18:59 | Hospitalist Progress Note ---
Date of Service August 18, 2018 Assessment & Plan (1) CHF (congestive heart failure): (2) Obesity hypoventilation syndrome: (3) Pulmonary edema: (4) Acute kidney injury: (5) HTN (hypertension): (6) CKD (chronic kidney disease) stage 3, GFR 30-59 ml/min: (7) Obstructive sleep apnea on CPAP: (8) Peripheral neuropathy: (9) Morbid obesity with BMI of 60.0-69.9, adult: 57-year-old white female admitted on August 07, 2018 because of hypoxic, has been having worsening renal function and not able to tolerate BiPAP machine Hypoxia likely secondary to several reasons such as Obesity hypoventilation syndrome, and CHF exacerbation upon admission Hypoxia upon admission likely because of morbid obesity with Obesity hypoventilation syndrome, and CHF exacerbation, Morbid obesity with history of TRUMAN Significant non compliance with bipap Chest x-ray from 08/09 shows some mild pulmonary vascular congestion no overt pleural effusions or infiltrates Has been treated for reactive airway was tx initial pneumonia seen on presenting chest x-ray, Repeated x-ray today there was no obvious pneumonia Possible acute bronchitis has rule out pneumonia. Severe obstructive sleep apnea - intolerant of BiPAP. seems to be slowly improving. she will nor tolerate BiPAP at all. She does feel the nebulizer treatments are helping. has discussed the importance of further weight loss Was not need home O2 at home, breathing better but still on 2-3L should follow up with pulm as outpatient, venous doppler on 08/12 with no evidence of DVT so makes PE far less likely need nocturnal oximetry to see if she requires oxygen at night at home and get this approved, We will ordered two-step for tomorrow, Possible discharge home tomorrow Talk to Dr. moore about this, Nocturnal pulse ox study will do in room airTo qualify for nocturnal oxygen need oor nocturnal BiPAP Obesity hypoventilation syndrome/sleep apnea Upcoming schedule gastric bypass surgery has been rescheduled due to her recent hospitalizations Was on Solu Medrol, change to Prednisone 50mg qAM on 08/13, will continue tapering Acute kidney injury on CKD (chronic kidney disease) stage 3, GFR 30-59 ml/min: Renal function continue getting worse, medical communication specialist recommend fluid intake and given IV fluid if needed, Today's kidney function is improving,Stop IV fluid and follow-up on lab Diabetic, dyslipidemia, anxiety and depression: Stable continue current medication Accelerated hypertension, seem better after adding scheduled hydralazine, continue beta-william, hydralazine P.o. continue Norvasc 5mg daily on 08/13 Possible vaginal yeast infection, continue Diflucan to complete full course Possible discharge home, Subjective cont have Some diarrhea this morning, But yesterday afternoon and at nighttime has no diarrhea Stting up in chair, continue need 2 L of oxygen, No obvious cough or sputum, no wheezing Denies fever and chill, Review of Systems Constitutional: Positive weakness, or fatigue Respiratory: See above Cardiac: No chest pain, No orthopnea, No palpitations, Abdomen: No pain, No nausea, No vomiting, Musculoskeletal: 1-2+ edema is the same, no joint pain, No muscle pain, : No dysuria, No urinary frequency, No incontinence, Neurologic: No paralysis, No weakness, No numbness/tingling, Psychiatric: No depression symptoms, No anhedonism, No anxiety, Heme: No abnormal bleeding/bruising, No clotting problems, Skin: No rash, No itch, No new/changing skin lesions, No color change, No bleeding Physical Exam Vital Signs (Past 24 Hours): Last Vital Signs Temp 36.7 C 08/18/18 15:14 Pulse 75 08/18/18 15:14 Resp 18 08/18/18 15:14 BP 118/74 08/18/18 15:14 Pulse Ox 96 08/18/18 15:14 Physical Exam: General Appearance: Looks tired , cont nose congestion, morbid obesity, conversational, WD/WN, no apparent distress, Eyes: normal inspection, PERRL, EOMI, sclerae normal ENT: normal ENT inspection, hearing grossly normal, pharynx normal Neck: supple, no adenopathy, thyroid normal, no JVD, no carotid bruits, trachea midline Respiratory/Chest: chest non-tender, decreased breath sounds, no respiratory distress, no accessory muscle use, rales, occasional wheezing, no crackles Cardiovascular: regular rate, rhythm, no JVD, no murmur Abdomen: normal bowel sounds, non tender, soft, no organomegaly, Extremities: normal range of motion, non-tender, normal inspection, 2+ pedal edema has been the same as yesterday, no calf tenderness, normal capillary refill, pelvis stable, joint has no limited range of motion, capillary refill is normal, no cyanosis clubbing 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, no motor/sensory deficits, alert, normal mood/affect, oriented x 3 Skin: normal color, warm/dry, no rash Lymphatic: no adenopathy Results & Data Laboratory Results Laboratory Results - last 24 hr 08/17/18 08/18/18 08/18/18 20:47 05:15 07:30 Sodium 140 Potassium 4.7 Chloride 107 Carbon Dioxide 27 Anion Gap 6.0 BUN 65 H Creatinine 2.16 H Est Cr Clr Drug Dosing 48.1 Est GFR ( Amer) 28.1 Est GFR (Non-Af Amer) 24.3 BUN/Creatinine Ratio 30.1 H Glucose 117 H POC Glucose 196 H 112 H Calcium 8.3 L Magnesium 1.8 08/18/18 08/18/18 11:57 16:23 Sodium Potassium Chloride Carbon Dioxide Anion Gap BUN Creatinine Est Cr Clr Drug Dosing Est GFR ( Amer) Est GFR (Non-Af Amer) BUN/Creatinine Ratio Glucose POC Glucose 127 H 103 H Calcium Magnesium (1) CHF (congestive heart failure) Heart failure chronicity: unspecified Heart failure type: unspecified Qualified Code(s): I50.9 - Heart failure, unspecified
[2018-08-18] MEDS: INSULIN GLARGINE 100 UNIT/ML VIAL SQ SCH (21:29)
[2018-08-18] MEDS: ATORVASTATIN 40 MG TAB PO SCH (21:30)
[2018-08-18] MEDS: ZINC SULFATE 220 MG CAPSULE PO SCH (21:35)
[2018-08-18] MEDS: TRAZODONE HCL 50 MG TAB PO PRN (22:47)
[2018-08-19] MEDS: IPRATROPIUM BROMIDE NEB SOLN 0.02% 2.5 ML VIAL INH SCH ×4 (02:18→19:08)
[2018-08-19] MEDS: LEVALBUTEROL 1.25MG/0.5ML NEB INH SCH ×4 (02:18→19:08)
[2018-08-19] MEDS: ACETAMINOPHEN 325 MG TAB PO PRN ×2 (04:01→13:48)
[2018-08-19] MEDS: LEVOTHYROXINE SODIUM 50 MCG TABLET PO SCH (06:09)
[2018-08-19] MEDS: guaiFENesin SUGAR FREE 200 MG/10 ML UDC PO PRN ×3 (06:24→21:55)
[2018-08-19] MEDS: ARFORMOTEROL TART 15MCG/2ML VIAL INH SCH ×2 (07:15→19:07)
[2018-08-19] MEDS: OXYCODONE/ACETAMINOPHEN 10-325 TAB PO PRN ×2 (07:18→17:21)
[2018-08-19] MEDS: AMLODIPINE BESYLATE 5 MG TAB PO SCH (08:11)
[2018-08-19] MEDS: METOPROLOL SUCC 50MG EXT REL TAB PO SCH (08:11)
[2018-08-19] MEDS: LORazepam 1 MG TAB PO SCH ×2 (08:11→21:46)
[2018-08-19] MEDS: guaiFENesin 600 MG TABCR PO SCH ×2 (08:11→21:48)
[2018-08-19] MEDS: predniSONE 10 MG TABLET PO SCH (08:12)
[2018-08-19] MEDS: FENOFIBRATE NANOCRYSTALLIZED 145 MG TABLET PO SCH (08:12)
[2018-08-19] MEDS: ESCITALOPRAM OXALATE 20 MG TAB PO SCH (08:12)
[2018-08-19] MEDS: FLUCONAZOLE 100 MG TAB PO SCH (08:13)
[2018-08-19] MEDS: HydrALAZINE 10 MG TAB PO SCH ×3 (08:13→21:46)
[2018-08-19] MEDS: ASPIRIN 81 MG ECTAB PO SCH (08:13)
[2018-08-19] MEDS: BusPIRone 15 MG TAB PO SCH ×2 (08:13→21:46)
[2018-08-19] MEDS: MAGNESIUM OXIDE 400 MG TAB PO SCH (08:13)
[2018-08-19] MEDS: HEPARIN SOD 5,000 UNIT/0.5 ML VIAL SQ SCH ×2 (08:14→21:46)
[2018-08-19] MEDS: FLUTICASONE PROPIONATE NA SPR 16 GM BTL SCH (08:15)
[2018-08-19] MEDS: INSULIN LISPRO 100 UNIT/ML SC SCH ×4 (09:14→21:27)
[2018-08-19 09:41] LABS: BUN Creatinine Ratio 30.6 (10-20); Creatinine Clr Calc Pharmacy 52.6 ml/min; Est GFR (African American) 31.3; Potassium 4.3 mmol/L (3.5-5.1)
--- NOTE | 2018-08-19 10:18 | Nephrology Progress Note ---
Date of Service August 19, 2018 Assessment & Plan (1) Acute kidney injury: Jerri is a 57-year-old female with morbid obesity, hypertension, diabetes, diastolic dysfunction, stage III CKD (baseline creatinine around 1.6 mg/dL) with history of recurrent acute kidney injury. She was admitted to the hospital with shortness of breath. On admission she was considered to be volume overloaded with pulmonary congestion and was given IV diuretics. Renal function worsened to creatinine up to 3.0. Diuretics have been held. She has been net negative off of diuretics. IVF started on Saturday and discontinued yesterday morning. Creatinine continues improving. Chest x-ray on 08/17/18 showed improvement in right lower lobe infiltrate. She has no fever, leukocytosis. Will continue to hold IVF. Continue to hold diuretics. Document I/O's and repeat metabolic profile tomorrow AM. Medications are appropriate for kidney function. Will require close outpatient follow up. No need to restart diuretics at this time. Encouraged to use BiPAP (2) CKD (chronic kidney disease) stage 3, GFR 30-59 ml/min: -- Baseline creatinine has been 1.6. Renal impairment is on the basis of DM, HTN, obesity (3) Pulmonary edema: -- (4) Morbid obesity with BMI of 60.0-69.9, adult: Subjective Jerri was seen & examined in her hospital room this morning. Edema stable. She is breathing comfortably. Appetite is good. No fevers or chills. Review of Systems All systems reviewed & are unremarkable except as noted in HPI & below Physical Exam Vital Signs (Past 24 Hours): Last Vital Signs Temp 36.5 C 08/19/18 07:17 Pulse 64 08/19/18 07:49 Resp 18 08/19/18 07:18 BP 153/72 H 08/19/18 07:17 Pulse Ox 97 08/19/18 07:18 Constitutional: + obese; no acute distress Eyes: no scleral abnormality and no corneal abnormality ENMT: Mouth: no oral mucosal abnormality and oral mucous membranes not dry Neck: normal visual inspection Respiratory: normal respiratory effort; no respiratory distress and no labored breathing Auscultation: lungs clear to auscultation bilaterally Cardiovascular: Rate/Rhythm: regular rate and regular rhythm Heart Sounds: normal S1 and normal S2 Extremities: + edema Gastrointestinal (Abdomen): Percussion/Palpation: abdomen soft; abdomen nontender Musculoskeletal: Extremities: no cyanosis and no clubbing Skin: no rashes, warm and dry Neurologic: Motor/Sensory: no tremor and no asterixis Psychiatric: Affect: euthymic affect Insight: good insight Results & Data Laboratory Results Laboratory Results - last 24 hr 08/18/18 08/18/18 08/18/18 11:57 16:23 20:14 Sodium Potassium Chloride Carbon Dioxide Anion Gap BUN Creatinine Est Cr Clr Drug Dosing Est GFR ( Amer) Est GFR (Non-Af Amer) BUN/Creatinine Ratio Glucose POC Glucose 127 H 103 H 179 H Calcium Magnesium 08/19/18 08/19/18 08/19/18 07:09 09:12 09:12 Sodium 140 Potassium 4.3 Chloride 106 Carbon Dioxide 26 Anion Gap 8.0 BUN 61 H Creatinine 1.98 H Est Cr Clr Drug Dosing 52.6 Est GFR ( Amer) 31.3 Est GFR (Non-Af Amer) 27.0 BUN/Creatinine Ratio 30.6 H Glucose 180 H POC Glucose 124 H Calcium 9.0 Magnesium 1.7 L
[2018-08-19] MEDS ORDERED: FUROSEMIDE 20 MG TAB PO SCH (12:00)
--- NOTE | 2018-08-19 13:35 | Pharmacy Report ---
Pharmacy Glycemic Short Note 2 - Date of Service August 19, 2018 - Glycemic Short BSG Results (Last 24 hours): 08/18/18 08/18/18 08/19/18 16:23 20:14 07:09 Glucose POC Glucose 103 H 179 H 124 H 08/19/18 08/19/18 09:12 11:49 Glucose 180 H POC Glucose 84 OUTPATIENT ANTIDIABETIC REGIMEN: Trulicity SQ weekly Lantus 150 units SQ HS Admelog CF of 5 and CR of 2 ASSESSMENT: * Ms. Arellano's BSGs have been well controlled over the preceding 24hrs: [id number]/dL. She required 120units of insulin yesterday. She is correctional heavy, likely due to the steroids. PLAN FOR INPATIENT GLYCEMIC CONTROL: * Basal insulin * 40 units for BSG less than 180 mg/dL * 45 units for BSG 180 mg/dL or greater * Bolus insulin * POM Admelog per scale ACHS or Q6hrs while NPO * Goal Range: Low 110 mg/dL - High 140 mg/dL * Correction Factor: 10 mg/dL/unit * Nutritional / Prandial insulin per carb ratio of 1 unit per 3 grams CHO consumed RECOMMENDATIONS FOR DISCHARGE: * Patient's HbA1C is becoming better controlled. Consider continuing home regimen as long as she does not have any problems with hypoglycemia.
[2018-08-19] MEDS: POLYETHYLENE (MIRALAX) 17 GM PACK PO PRN (13:48)
--- NOTE | 2018-08-19 15:18 | Hospitalist Progress Note ---
Date of Service August 19, 2018 Assessment & Plan (1) CHF (congestive heart failure): (2) Obesity hypoventilation syndrome: (3) Pulmonary edema: (4) Acute kidney injury: (5) HTN (hypertension): (6) CKD (chronic kidney disease) stage 3, GFR 30-59 ml/min: (7) Obstructive sleep apnea on CPAP: (8) Peripheral neuropathy: (9) Morbid obesity with BMI of 60.0-69.9, adult: 57-year-old white female admitted on August 07, 2018 because of hypoxic, has been having worsening renal function and not able to tolerate BiPAP machine Hypoxia at night likely secondary Obesity hypoventilation syndrome, she was having CHF exacerbation at admission Morbid obesity with history of TRUMAN Significant non compliance with bipap Chest x-ray from 08/09 shows some mild pulmonary vascular congestion no overt pleural effusions or infiltrates Has been treated for reactive airway was tx initial pneumonia seen on presenting chest x-ray, Repeated x-ray today there was no obvious pneumonia Possible acute bronchitis has rule out pneumonia. Severe obstructive sleep apnea - intolerant of BiPAP. seems to be continually and slowly improving. she will nor tolerate BiPAP at all per straight edger, Gentle diuretic, daytime two-step was done, does not need oxygen when in rest in wall, nocturnal pulse ox study was done too, per report she required oxygen when she was sleeping Was not need home O2 at home prior to this admission, should follow up with pulm as outpatient, venous doppler on 08/12 with no evidence of DVT so makes PE far less likely Obesity hypoventilation syndrome/sleep apnea Upcoming schedule gastric bypass surgery has been rescheduled due to her recent hospitalizations Was on Solu Medrol, change to Prednisone 50mg qAM on 08/13, continue tapering Acute kidney injury on CKD (chronic kidney disease) stage 3, GFR 30-59 ml/min: Renal function related to stable, canvas baster jumpbasting recommend small amount of Lasix because of lower extremity edema, will continue follow-up Diabetic, dyslipidemia, anxiety and depression: Stable continue current medication Accelerated hypertension, seem better after adding scheduled hydralazine, continue beta-william, hydralazine P.o. continue Norvasc 5mg daily on 08/13 Possible vaginal yeast infection, continue Diflucan to complete full course Possible discharge home tomorrow Subjective no more diarrhea this morning, Has done the two-step testing per report do not need oxygen when walking and wh en in rest, Reported wheezing when up and walk, and lower extremity swelling which has been for a while No obvious cough or sputum, no wheezing Denies fever and chill, Review of Systems Constitutional: Positive weakness, or fatigue Respiratory: See above Cardiac: No chest pain, No orthopnea, No palpitations, Abdomen: No pain, No nausea, No vomiting, Musculoskeletal: 2++ edema is the same, no joint pain, No muscle pain, : No dysuria, No urinary frequency, No incontinence, Neurologic: No paralysis, No weakness, No numbness/tingling, Psychiatric: No depression symptoms, No anhedonism, No anxiety, Heme: No abnormal bleeding/bruising, No clotting problems, Skin: No rash, No itch, No new/changing skin lesions, No color change, No bleeding Physical Exam Vital Signs (Past 24 Hours): Last Vital Signs Temp 37 C 08/19/18 15:10 Pulse 75 08/19/18 15:10 Resp 18 08/19/18 15:10 BP 159/69 H 08/19/18 15:10 Pulse Ox 95 08/19/18 15:10 Physical Exam: General Appearance: Looks tired , cont nose congestion, morbid obesity, conversational, WD/WN, no apparent distress, Eyes: normal inspection, PERRL, EOMI, sclerae normal ENT: normal ENT inspection, hearing grossly normal, pharynx normal Neck: supple, no adenopathy, thyroid normal, no JVD, no carotid bruits, trachea midline Respiratory/Chest: Occasional wheezing, chest non-tender, decreased breath sounds, no respiratory distress, no accessory muscle use,no rales, no crackles Cardiovascular: regular rate, rhythm, no JVD, no murmur Abdomen: normal bowel sounds, non tender, soft, no organomegaly, Extremities: normal range of motion, non-tender, normal inspection, 2+ pedal edema has been the same as yesterday, no calf tenderness, normal capillary refill, pelvis stable, joint has no limited range of motion, capillary refill is normal, no cyanosis clubbing 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, no motor/sensory deficits, alert, normal mood/affect, oriented x 3 Skin: normal color, warm/dry, no rash Lymphatic: no adenopathy Results & Data Laboratory Results Laboratory Results - last 24 hr 08/18/18 08/18/18 08/19/18 16:23 20:14 07:09 Sodium Potassium Chloride Carbon Dioxide Anion Gap BUN Creatinine Est Cr Clr Drug Dosing Est GFR ( Amer) Est GFR (Non-Af Amer) BUN/Creatinine Ratio Glucose POC Glucose 103 H 179 H 124 H Calcium Magnesium 08/19/18 08/19/18 08/19/18 09:12 09:12 11:49 Sodium 140 Potassium 4.3 Chloride 106 Carbon Dioxide 26 Anion Gap 8.0 BUN 61 H Creatinine 1.98 H Est Cr Clr Drug Dosing 52.6 Est GFR ( Amer) 31.3 Est GFR (Non-Af Amer) 27.0 BUN/Creatinine Ratio 30.6 H Glucose 180 H POC Glucose 84 Calcium 9.0 Magnesium 1.7 L (1) CHF (congestive heart failure) Heart failure chronicity: unspecified Heart failure type: unspecified Qualified Code(s): I50.9 - Heart failure, unspecified
[2018-08-19] MEDS: INSULIN GLARGINE 100 UNIT/ML VIAL SQ SCH (21:47)
[2018-08-19] MEDS: ATORVASTATIN 40 MG TAB PO SCH (21:47)
[2018-08-19] MEDS: ZINC SULFATE 220 MG CAPSULE PO SCH (21:48)
[2018-08-20] MEDS: LEVALBUTEROL 1.25MG/0.5ML NEB INH SCH ×3 (02:01→14:22)
[2018-08-20] MEDS: IPRATROPIUM BROMIDE NEB SOLN 0.02% 2.5 ML VIAL INH SCH ×3 (02:01→14:22)
[2018-08-20] MEDS: LEVOTHYROXINE SODIUM 50 MCG TABLET PO SCH (05:43)
[2018-08-20 07:07] LABS: BUN Creatinine Ratio 25.9 (10-20); Calcium 9.5 mg/dl (8.5-10.1); Est GFR (African American) 26.4; Est GFR (Non-African American) 22.7; Magnesium 1.7 mg/dl (1.8-2.4); Potassium 4.6 mmol/L (3.5-5.1)
[2018-08-20] MEDS: ARFORMOTEROL TART 15MCG/2ML VIAL INH SCH (07:17)
[2018-08-20] MEDS: LORazepam 1 MG TAB PO SCH (08:02)
[2018-08-20] MEDS: POLYETHYLENE (MIRALAX) 17 GM PACK PO PRN (08:02)
[2018-08-20] MEDS: HydrALAZINE 10 MG TAB PO SCH ×2 (08:03→13:59)
[2018-08-20] MEDS: FLUCONAZOLE 100 MG TAB PO SCH (08:04)
[2018-08-20] MEDS: BusPIRone 15 MG TAB PO SCH (08:04)
[2018-08-20] MEDS: FLUTICASONE PROPIONATE NA SPR 16 GM BTL SCH (08:05)
[2018-08-20] MEDS: ASPIRIN 81 MG ECTAB PO SCH (08:05)
[2018-08-20] MEDS: ESCITALOPRAM OXALATE 20 MG TAB PO SCH (08:14)
[2018-08-20] MEDS: MAGNESIUM OXIDE 400 MG TAB PO SCH (08:14)
[2018-08-20] MEDS: guaiFENesin 600 MG TABCR PO SCH (08:14)
[2018-08-20] MEDS: AMLODIPINE BESYLATE 5 MG TAB PO SCH (08:15)
[2018-08-20] MEDS: METOPROLOL SUCC 50MG EXT REL TAB PO SCH (08:16)
[2018-08-20] MEDS: predniSONE 10 MG TABLET PO SCH (08:16)
[2018-08-20] MEDS: FENOFIBRATE NANOCRYSTALLIZED 145 MG TABLET PO SCH (08:17)
[2018-08-20] MEDS: HEPARIN SOD 5,000 UNIT/0.5 ML VIAL SQ SCH (08:25)
[2018-08-20] MEDS: INSULIN LISPRO 100 UNIT/ML SC SCH ×3 (08:28→17:33)
--- NOTE | 2018-08-20 08:42 | Nephrology Progress Note ---
Date of Service August 20, 2018 Assessment & Plan (1) Acute kidney injury: Jerri is a 57-year-old female with morbid obesity, hypertension, diabetes mellitus, diastolic dysfunction, stage III CKD (baseline creatinine around 1.6 mg/dL) with history of recurrent acute kidney injury. She was admi tted to the hospital with shortness of breath. On admission she was volume overloaded with pulmonary congestion. This was treated with IV diuretics. Renal function worsened to creatinine up to 3.0. Diuretics were held. IVF started on Saturday and discontinued Saturday. Creatinine improved. A dose of furosemide 20 mg was provided yesterday. Net negative fluid balance 2.3 L. Creatinine syd slightly but tolerable. Edema improved. Will continue to hold IVF. Suggest furosemide 20 mg every other day. Repeat metabolic profile within 1 week of discharge (results can be faxe to [email or web address] @ [phone]). Follow up with Dr. Pearl aviles be arranged within the next 2 weeks. Medications are appropriate for kidney function. Will require close outpatient follow up. (2) CKD (chronic kidney disease) stage 3, GFR 30-59 ml/min: Baseline creatinine has been 1.6. Renal impairment is on the basis of DM, HTN, obesity (3) Pulmonary edema: Improved Patient has not required supplemental oxygen (4) Morbid obesity with BMI of 60.0-69.9, adult: Bariatric follow up post discharge Subjective Jerri was seen & examined in her hospital room this morning. Edema improved. Jerri is happy. She expects to be discharged home today. I confirmed this with Dr. Gaytan. Jerri is breathing comfortably. Appetite is good. No fevers or chills. Review of Systems All systems reviewed & are unremarkable except as noted in HPI & below Physical Exam Vital Signs (Past 24 Hours): Last Vital Signs Temp 36.5 C 08/20/18 03:55 Pulse 74 08/20/18 07:18 Resp 16 08/20/18 07:18 BP 124/77 08/20/18 07:18 Pulse Ox 98 08/20/18 07:18 Constitutional: + obese; no acute distress Eyes: no scleral abnormality and no corneal abnormality ENMT: Mouth: no oral mucosal abnormality and oral mucous membranes not dry Neck: normal visual inspection Respiratory: normal respiratory effort; no respiratory distress and no labored breathing Auscultation: lungs clear to auscultation bilaterally Cardiovascular: Rate/Rhythm: regular rate and regular rhythm Heart Sounds: normal S1 and normal S2 Extremities: + edema Gastrointestinal (Abdomen): Percussion/Palpation: abdomen soft; abdomen nontender Musculoskeletal: Extremities: no cyanosis and no clubbing Skin: no rashes, warm and dry Neurologic: Motor/Sensory: no tremor and no asterixis Psychiatric: Affect: euthymic affect Insight: good insight Results & Data Laboratory Results Laboratory Results - last 24 hr 08/19/18 08/19/18 08/19/18 09:12 09:12 11:49 Sodium 140 Potassium 4.3 Chloride 106 Carbon Dioxide 26 Anion Gap 8.0 BUN 61 H Creatinine 1.98 H Est Cr Clr Drug Dosing 52.6 Est GFR ( Amer) 31.3 Est GFR (Non-Af Amer) 27.0 BUN/Creatinine Ratio 30.6 H Glucose 180 H POC Glucose 84 Calcium 9.0 Magnesium 1.7 L 08/19/18 08/19/18 08/20/18 16:23 20:17 05:52 Sodium 140 Potassium 4.6 Chloride 106 Carbon Dioxide 29 Anion Gap 5.0 BUN 59 H Creatinine 2.28 H D Est Cr Clr Drug Dosing 45.0 Est GFR ( Amer) 26.4 Est GFR (Non-Af Amer) 22.7 BUN/Creatinine Ratio 25.9 H Glucose 138 H POC Glucose 112 H 84 Calcium 9.5 Magnesium 1.7 L 08/20/18 07:25 Sodium Potassium Chloride Carbon Dioxide Anion Gap BUN Creatinine Est Cr Clr Drug Dosing Est GFR ( Amer) Est GFR (Non-Af Amer) BUN/Creatinine Ratio Glucose POC Glucose 154 H Calcium Magnesium
[2018-08-20] MEDS: guaiFENesin SUGAR FREE 200 MG/10 ML UDC PO PRN ×3 (08:47→17:36)
[2018-08-20] MEDS: OXYCODONE/ACETAMINOPHEN 10-325 TAB PO PRN (12:10)
--- NOTE | 2018-08-20 13:24 | Pharmacy Report ---
Pharmacy Glycemic Short Note 2 - Date of Service August 20, 2018 - Glycemic Short BSG Results (Last 24 hours): 08/19/18 08/19/18 08/20/18 16:23 20:17 05:52 Glucose 138 H POC Glucose 112 H 84 08/20/18 08/20/18 07:25 11:36 Glucose POC Glucose 154 H 94 OUTPATIENT ANTIDIABETIC REGIMEN: Trulicity SQ weekly Lantus 150 units SQ HS Admelog CF of 5 and CR of 2 ASSESSMENT: * Renal fxn worsening, ergo, i anticipate her insulin requirements will likely lessen. Prednisone taper continues. If FBSs trend down, a reduction in metabolic insulin may be warranted. PLAN FOR INPATIENT GLYCEMIC CONTROL: * Basal insulin * 40 units for BSG less than 180 mg/dL * 45 units for BSG 180 mg/dL or greater * Bolus insulin - loosen * POM Admelog per scale ACHS or Q6hrs while NPO * Goal Range: Low 110 mg/dL - High 140 mg/dL * Correction Factor: 15 mg/dL/unit * Nutritional / Prandial insulin per carb ratio of 1 unit per 5 grams CHO consumed
--- NOTE | 2018-08-20 15:48 | Discharge Summary ---
Date of Service August 20, 2018 Admission HPI Per Admitting Provider The patient is a 57-year-old female most recently admitted to this hospital from 07/23-07/26/18 for hypoxia associated with sleep apnea, obesity hypoventilation syndrome and fluid retention. The Symptoms that she presents with this visit are somewhat different in that she does have a productive sounding cough. She reports that she was scheduled for gastric bypass in early August, which has been canceled and needed to be rescheduled associated with her ongoing respiratory difficulties. Principal Diagnosis no Discharge Data Allergies Allergy/AdvReac Type Severity Reaction Status Date / Time promethazine Allergy Unknown BROKEN Verified 07/22/18 23:52 CAPILLARIES FACE Consultations 08/07/18 04:21 Consult Case Management - Discharge Planning Routine Consult Nephrology Routine 08/07/18 06:37 ED Decision to Admit Stat 08/11/18 23:53 Consult Pulmonology Routine Ordered Studies 08/09/18 10:05 US renal/blad retro comp Routine 08/12/18 13:47 US venous doppler LE Routine Hospital Course (1) CHF (congestive heart failure): (2) Obesity hypoventilation syndrome: (3) Pulmonary edema: (4) Acute kidney injury: (5) HTN (hypertension): (6) CKD (chronic kidney disease) stage 3, GFR 30-59 ml/min: (7) Obstructive sleep apnea on CPAP: (8) Peripheral neuropathy: (9) Morbid obesity with BMI of 60.0-69.9, adult: 57-year-old white female admitted on August 07, 2018 because of hypoxic, has been having worsening renal function and not able to tolerate BiPAP machine Hypoxia at night likely secondary Obesity hypoventilation syndrome, she was having CHF exacerbation at admission Morbid obesity with history of TRUMAN Significant non compliance with bipap at home Chest x-ray from 08/09 shows some mild pulmonary vascular congestion no overt pleural effusions or infiltrates Has been treated for reactive airway was tx initial pneumonia seen on presenting chest x-ray, Repeated x-ray today there was no obvious pneumonia Possible acute bronchitis has rule out pneumonia. Severe obstructive sleep apnea - intolerant of BiPAP. seems to be continually and slowly improving. she will not tolerate BiPAP at all per oral and maxillofacial surgery resident, daytime two-step was done, does not need oxygen when in rest in walk, nocturnal pulse ox study was done at room air too, per report she dose not required oxygen when she was sleeping pt Was not need home O2 at home prior to this admission, should follow up with pulm as outpatient, venous doppler on 08/12 with no evidence of DVT so makes PE far less likely However need to follow-up with oral and maxillofacial surgery resident to further evaluation and treatment in 7-10 days Obesity hypoventilation syndrome/sleep apnea Upcoming schedule gastric bypass surgery has been rescheduled due to her recent hospitalizations Was on Solu Medrol, change to Prednisone 50mg qAM on 08/13, continue tapering Acute kidney injury on CKD (chronic kidney disease) stage 3, GFR 30-59 ml/min: Renal function related to stable, today's getting worse, creatinine 2.28 from 1.98, discussed with civil engineering specialist nephrology feel patient should be safe to go home civil engineering specialist recommend small amount of Lasix because of lower extremity edema, will continue follow-up take Lasix 20 mg every other day per recommendation of nephrology Follow-up nephrology next Saturday or Saturday , need to have blood test on next Saturday report to PCP, Rx of lab enclosed upon discharge possible vaginal yeast infection, I ordered Monistat sent to your pharmacy Diabetic, dyslipidemia, anxiety and depression: Stable continue current medication Accelerated hypertension, seem better after adding scheduled hydralazine, continue beta-william, hydralazine P.o. continue Norvasc 5mg daily on 08/13 Subjective at discharge no more diarrhea this morning, lower extremity swelling which is the same, No obvious cough or sputum, no wheezing Denies fever and chill, Review of Systems at discharge Constitutional: Positive weakness, or fatigue Respiratory: See above Cardiac: No chest pain, No orthopnea, No palpitations, Abdomen: No pain, No nausea, No vomiting, Musculoskeletal: 2+ edema is the same, no joint pain, No muscle pain, : No dysuria, No urinary frequency, No incontinence, Neurologic: No paralysis, No weakness, No numbness/tingling, Psychiatric: No depression symptoms, No anhedonism, No anxiety, Heme: No abnormal bleeding/bruising, No clotting problems, Skin: No rash, No itch, No new/changing skin lesions, No color change, No bleeding Physical Exam upon discharge General Appearance: Looks fair, mild nose congestion, morbid obesity, conversational, WD/WN, no apparent distress, Eyes: normal inspection, PERRL, EOMI, sclerae normal ENT: normal ENT inspection, hearing grossly normal, pharynx normal Neck: supple, no adenopathy, thyroid normal, no JVD, no carotid bruits, trachea midline Respiratory/Chest: chest non-tender, mild decreased breath sounds, no respiratory distress, no accessory muscle use,no rales, no crackles Cardiovascular: regular rate, rhythm, no JVD, no murmur Abdomen: normal bowel sounds, non tender, soft, no organomegaly, Extremities: normal range of motion, non-tender, normal inspection, 2+ pedal edema has been the same as yesterday, no calf tenderness, normal capillary refill, capillary refill is normal, no cyanosis clubbing Neurologic/Psychiatric: applicator sprayer II-XII nml as tested, no motor/sensory deficits, alert, normal mood/affect, oriented x 3 Skin: normal color, warm/dry, no rash Lymphatic: no adenopathy Lab data upon discharge: Laboratory Results - last 24 hr 08/19/18 08/19/18 08/20/18 16:23 20:17 05:52 Sodium 140 Potassium 4.6 Chloride 106 Carbon Dioxide 29 Anion Gap 5.0 BUN 59 H Creatinine 2.28 H D Est Cr Clr Drug Dosing 45.0 Est GFR ( Amer) 26.4 Est GFR (Non-Af Amer) 22.7 BUN/Creatinine Ratio 25.9 H Glucose 138 H POC Glucose 112 H 84 Calcium 9.5 Magnesium 1.7 L 08/20/18 08/20/18 08/20/18 07:25 11:36 14:49 Sodium Potassium Chloride Carbon Dioxide Anion Gap BUN Creatinine Est Cr Clr Drug Dosing Est GFR ( Amer) Est GFR (Non-Af Amer) BUN/Creatinine Ratio Glucose POC Glucose 154 H 94 77 Calcium Magnesium Total Time Total Time Spent Total Time Spent (In Minutes): 35 Total Time Includes: Examination of the Patient, Discharge Planning, Medication Reconciliation and Communication With Other Providers Discharge Plan Discharge Items Patient Disposition: Home - Self-Care Reason For Visit: HYPOXIA Discharge Diagnosis: bronchitis Acute on chronic kidney failure Obesity Condition: Fair Discharge Goals: Decrease discomfort, Diagnostic testing, Increase independence and Learn about illness Activity: Resume your previous activity Non-emergency contact: Primary Care Provider and Prosthodontist/Educator Call non-emergency contact if: you have any medication questions Follow-up/Referrals: Keerthi Elena PA-C [Physician Molded Goods Spot Picker] - 09/03/18 10:30 am (Please, follow up at [facility] Office with Keerthi Elena PA-C on SaturdaySeptember 03 at 10:30 am. *This office is also in [address] of [facility][note 3] next to [facility]. If you need to change this appointment, call the office at [phone].) William Lewis MD [Primary Care Provider] - 09/03/18 11:40 am (Please, follow up with Dr. Howell on SaturdaySeptember 03 at 11:40 am. *If you need to change this appointment, call the office at [phone].) Sherrie Kang MD [Family Provider] - 08/25/18 2:05 pm (Please, follow up at [facility] Nephrology Office with Dr. Kang on SaturdayAugust 25 at 2:05 pm. *[address] of [facility]. If you need to change this appointment, call the office at [phone].) William Helm PA-C [Non-Staff] - 08/29/18 4:30 pm (Please, follow up at [facility] Office with William Helm PA-C on SaturdayAugust 29 at 4:30 pm. *If you need to change this appointment, call the office at [phone].) Andrea Brar DO [Physician] - 09/03/18 11:40 am (Please, follow up at [facility] Pulmonology Office with Dr. Brar on SaturdaySeptember 03 at 11:40 am. *This office is located in [address] of [facility][note 3] next to this [facility]. If you need to change this appointment, call the office at [phone].) Diet: Heart Healthy and Low Sodium (2gm) Addtl Provider Instructions: you possible have obstructive sleep apnea, current testing you do not need oxygen at nighttime However you need to follow-up with oral and maxillofacial surgery resident to further evaluation and treatment in 7-10 days You need to take Lasix 20 mg every other day per recommendation of nephrology Follow-up nephrology next Saturday or Saturday you need to have blood test on next Saturday report to PCP, Rx of lab enclosed possible vaginal yeast infection, I ordered Monistat sent to your pharmacy you need to follow up with your primary care physician in 1 week, - take medication as instructed, never overdose or any misuse, or take with alcohol, because misuse of medicine may cause organ damage or , call me, or your primary care physician if have questions of discharge medicaitons. - call your primary care physician, or go to local emergency room if has any fever/chill, chest pain, shortness of breathing, nausea/vomiting/abdominal pain, facial droop/slurry speech/local weakness, or if has any questions. - fall precaution - diet as instructed - you need to follow up with your subspecialist, such as Dr. Brar Prescriptions: New amlodipine [Norvasc] 5 mg Tablet 5 mg PO QAM 30 Days Qty: 30 RF: 0 hydralazine 10 mg Tablet 10 mg PO TID 30 Days Qty: 90 RF: 0 prednisone 10 mg Tablet 30 mg PO QAM 3 Days Qty: 9 RF: 0 furosemide 20 mg Tablet 20 mg PO QAM 14 Days Qty: 14 RF: 0 fluticasone 50 mcg/actuation [place],Suspension 2 spry NA DAILY 7 Days Qty: 1 RF: 0 guaifenesin [Mucinex] 600 mg Tablet Extended Release 12hr 600 mg PO Q12 7 Days Qty: 14 RF: 0 albuterol sulfate 90 mcg/actuation HFA aerosol inhaler 1 inha INH Q6H Qty: 18 RF: 0 guaifenesin 100 mg/5 mL Liquid 10 ml PO Q6H PRN (Reason: cough) 7 Days Qty: 100 RF: 0 miconazole nitrate [Monistat 1 Combo Pack] 1,200-2 mg-% kit 1 appln PV DAILY Qty: 1 RF: 0 Continued aspirin 81 mg Tablet,Delayed Release (Dr/Ec) 81 mg PO DAILY RF: 0 atorvastatin 80 mg Tablet 80 mg PO HS RF: 0 buspirone 30 mg Tablet 30 mg PO BID RF: 0 ergocalciferol (vitamin D2) [Vitamin D2] 50,000 unit Capsule 50,000 unit PO DIRECTED RF: 0 dulaglutide [Trulicity] 1.5 mg/0.5 mL Pen Injector 1.5 mg/ml subcut WK RF: 0 fenofibrate nanocrystallized 145 mg Tablet 145 mg PO DAILY RF: 0 insulin glargine [Basaglar KwikPen U-100 Insulin] 100 unit/mL (3 mL) Insulin Pen 150 unit SUBCUT HS RF: 0 levothyroxine 50 mcg Tablet 50 mcg PO DAILY RF: 0 lorazepam [Ativan] 1 mg Tablet 1 mg PO AMHS RF: 0 magnesium oxide 400 mg Capsule 400 mg PO DAILY RF: 0 metoprolol succinate 100 mg Tablet Extended Release 24 Hr 100 mg PO DAILY RF: 0 zinc gluconate 100 mg Tablet 100 mg PO HS RF: 0 escitalopram oxalate [Lexapro] 20 mg Tablet 20 mg PO DAILY RF: 0 potassium chloride 10 mEq Tablet Extended Release 10 meq PO DAILY RF: 0 trazodone 50 mg Tablet 50 mg PO HS MDD 100 PRN (Reason: Insomnia) RF: 0 insulin lispro [Humalog KwikPen Insulin] 200 unit/mL (3 mL) Insulin Pen subcut UD RF: 0 Discontinued losartan 100 mg Tablet 100 mg PO DAILY RF: 0 Stand-Alone Forms: [facility] Discharge Orders: Discharge Order (Routine); Ordered 08/20/18 Ordered By: Robby Gaytan Admission Data Admit Date/Time: 08/12/18 08:17 Attending Provider: Robby Gaytan Admit Provider: Bill Hancock Primary Care Provider: William Lewis V. Other Providers: Sherrie Kang ; Bill Hancock ; Andrea Brar ; Farhan Escoto Service: Medical Other Interventions: Discharge Summary Assessment (RN) Last Done: 08/20/18 14:40
== END 2018-08-20 18:23 | disposition home or self-care (01) | DRG 205 ==
LOC: ED 22:48 → 2S 22:48 → SUATTDRO 08-07 03:31 → 2S 08-07 04:53 → 2N 08-09 14:50 → SUATTDRO 08-12 08:17

== ENCOUNTER 2020-12-01 15:21 | Inpatient (IN) ==
[2020-12-01] MEDS ORDERED: LORazepam 0.5 MG/1 ML VIAL IV STA (16:06)
[2020-12-01 16:16] LABS: Basophils # (auto) 0.01 K/uL (0-0.2); Basophils % (auto) 0.2 %; Eosinophils # (auto) 0.03 K/uL (0-0.5); Eosinophils % (auto) 0.7 %; Hematocrit (blood only) 32.1 % (37-47); Hemoglobin 9.9 g/dL (12.0-16.0); Immature Granulocytes # (auto) 0.01 K/uL (0.00-0.02); Immature Granulocytes % (auto) 0.2 %; Lymphocytes # (auto) 1.08 K/uL (1.2-3.4); Lymphocytes % (auto) 24.8 %; Mean Corpuscular Hemoglobin 28.4 pg (25-34); Mean Corpuscular Hgb Conc 30.8 g/dL (32-36); Mean Corpuscular Volume 92.2 fL (80-100); Mean Platelet Volume 10.3 fL (7.4-10.4); Monocytes % (auto) 4.6 %; Neutrophils # (auto) 3.03 K/uL (1.4-6.5); Neutrophils % (auto) 69.5 %; Platelet Count 226 K/uL (130-400); RDW Coefficient of Variation 14.1 % (11.5-14.5); RDW Standard Deviation 47.5 fL (36.4-46.3); Red Blood Count 3.48 M/uL (4.2-5.4); White Blood Count 4.36 K/uL (4.8-10.8)
--- NOTE | 2020-12-01 16:30 | Emergency Department Note ---
Impression & Plan Syncope, Hypomagnesemia, Generalized weakness, Dizziness, CKD (chronic kidney disease) ED Provider Note NAME: SHANTEL PAYAN AGE: 60 SEX: F ARRIVES VIA: Walk-In INFORMANT: Patient, ED PROVIDER(S): Crow Esquivel MD CHIEF COMPLAINT: Dizziness, weakness PLAN: Disposition: Admit MEDICAL DECISION MAKING: The patient is a pleasant 60-year-old woman with a past medical history of COPD, type 2 diabetes, morbid obesity, diastolic heart failure, arthralgia/arthritis, TRUMAN on CPAP, hypertension, hyperlipidemia, recent new diagnosis of atrial fibrillation in August started on flecainide and Xarelto. She is also status post gastric bypass in August where she briefly needed dialysis in the setting of her CKD. She has a right forearm AV fistula that was placed in preparation for transition to dialysis when needed. Reports feeling generalized weakness that has been progressive for the past 2 months and particularly worse over the past 2 weeks where she feels she gets dizzy and weak anytime she stands. They describe that 2 days ago she was in the shower and was feeling dizzy and had to get out to sit on the toilet but per report had loss consciousness transiently but then recovered. She did not come to emergency via at that time despite recommendation by her PCP. Today she comes to the emergency department because of ongoing weakness that is not improving. She reports that she did fall backwards and hit the back of her head a couple weeks ago but did not lose consciousness. She also did not seek medical evaluation. Upon arrival the patient is chronically ill-appearing but no acute distress, afebrile stable vital signs. She has no focal neurologic deficits. She appears euvolemic. Abdomen is benign. She is able to move bilateral lower extremities with full range of motion without difficulty. Hips and pelvis are stable. EKG demonstrates sinus rhythm without overt acute ischemia. Chest x-ray negative for acute cardiopulmonary process. WBC 4.3K proximal to prior value nonspecific. H/H 9.9/32.1 also approximate to prior value. Platelets within normal limits. Creatinine 2.4 similar to prior range of values in the setting of CKD. Magnesium 1.6 with repletion provided. Electrolytes otherwise without significant abnormality. LFTs unremarkable. Troponin negative/undetectable. Lipase is not elevated. TSH within normal limits. UA without convincing evidence of infection. COVID-[address] of the head and CT of abdomen pelvis were performed and negative for acute process. Given the patient's report of recurrent near syncope and having had a syncopal episode as well with generalized weakness where she feels she has been declining at home reasonable to admit the patient for further evaluation. May need PT and OT evaluation and placement given her report of deconditioning. Patient and her sister at the bedside are in agreement with this plan. Case was discussed with Dr. Grimes, [facility] hospitalist, who will evaluate the patient for admission. Triage Nursing notes reviewed and agree them. Prior medical records reviewed Vital Signs: reviewed and remarkable for no significant abnormalities Differential diagnosis: Infection, dehydration, metabolic abnormality, hypo/hyperglycemia, electrolyte disturbance, anemia, hypoxia, cardiac sources, intracerebral event, toxicologic, neurologic, as well as other pathologies. ER treatment provided: See below. Diagnostics interpreted by me: ECG: Sinus rhythm, 89 bpm, no ectopy, no overt ST elevation or depression, QTC 459, QRS 104. Cardiac Monitoring: An order for continuous cardiac monitoring was placed and demonstrated Sinus rhythm, 89 bpm, no ectopy. Laboratory studies: See below Imaging studies: See below Consultation(s): Case was discussed with Dr. Grimes, [facility] hospitalist, who will evaluate the patient for admission. HPI: The patient is a pleasant 60-year-old woman with a past medical history of COPD, type 2 diabetes, morbid obesity, diastolic heart failure, arthralgia/arthritis, TRUMAN on CPAP, hypertension, hyperlipidemia, recent new diagnosis of atrial fibrillation in August started on flecainide and Xarelto. She is also status post gastric bypass in August where she briefly needed dialysis in the setting of her CKD. She has a right forearm AV fistula that was placed in preparation for transition to dialysis when needed. Reports feeling generalized weakness that has been progressive for the past 2 months and particularly worse over the past 2 weeks where she feels she gets dizzy and weak anytime she stands. They describe that 2 days ago she was in the shower and was feeling dizzy and had to get out to sit on the toilet but per report had loss consciousness transiently but then recovered. She did not come to emergency via at that time despite recommendation by her PCP. Today she comes to the emergency department because of ongoing weakness that is not improving. She reports that she did fall backwards and hit the back of her head a couple weeks ago but did not lose consciousness. She also did not seek medical evaluation. ROS: See above HPI for pertinent positives & negatives. A total of 10 systems reviewed and were otherwise negative. PAST MEDICAL HISTORY:See Below PAST SURGICAL HISTORY:See Below FAMILY HISTORY:See Below SOCIAL HISTORY:See Below HOME MEDICATIONS:See Below ALLERGIES:See Below VITALS:See Below PHYSICAL EXAMINATION: GENERAL: Awake, alert, chronically ill-appearing, in no distress, BMI 44.4. HENT: Normocephalic, atraumatic. Oropharynx with dry mucous membranes and otherwise unremarkable. EYES: Normal conjunctiva. Sclera non-icteric. EOMI. No nystamgus. PEARRL. NECK: Supple. No nuchal rigidity. FROM. No JVD. RESPIRATORY: Diminished at the bases and otherwise clear to auscultation. CARDIAC: Regular rate, normal rhythm. Extremities warm and well perfused. Pulses equal. Right forearm AV fistula with palpable bruit. ABDOMEN: Soft, non-distended. No tenderness to palpation. No rebound or guarding. No masses. RECTAL: Deferred. MUSCULOSKELETAL: Chest examination reveals no tenderness. The back is symmetrical on inspection without obvious abnormality. There is no CVA tenderness to palpation. No joint edema. LOWER EXTREMITIES: Calves are equal size bilaterally and non-tender. 1+ bilateral lower extremity edema. No discoloration. NEURO: Normal sensorium. No focal sensory or motor deficits noted. Generalized weakness 4+/5 strength and SILT x 4 extremities. SKIN: No rash or jaundice noted. Crow Esquivel MD Past Med/Surg History Medical History Acute kidney injury Acute renal failure (05/23/14) 2013. Kidneys recovered to around CKD III, then function worsened around 04/2020. Anemia due to chronic kidney disease Anxiety and depression Arthralgia of multiple sites Avascular necrosis of head of humerus Cardiac murmur Mild TR noted on 2019 echo. Chronic kidney disease, stage 4 (severe) F/U [facility]- nephrology Chronic low back pain Chronic rhinitis Chronic sinusitis Claustrophobia Diabetes Diabetic nephropathy Diabetic peripheral neuropathy Diabetic retinopathy, nonproliferative Diastolic congestive heart failure Euvolemic on exam at [facility] 09/02/20. 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 Per [facility] pulm 12/2019, "fairly stable from a pulmonary perspective. She is short of breath with any exertion, however a large part of this is likely related to obesity. Pulmonary functions done 1 year ago showed only a mild restrictive pattern. Diffusion was slightly decreased to 66%. One year ago she did have a normal arterial blood gas with no evidence of CO2 retention." Using PRN 3L, mostly using with exertion, not using every day. Morbid obesity Nasal septal deviation Nocturnal hypoxia Nontoxic multinodular goiter TRUMAN (obstructive sleep apnea) PRESCRIBED BIPAP-CAN'T TOLERATE-CLAUSTROPHOBIC Vitamin D deficiency Surgical History H/O section History of arthroscopy LEFT SHOULDER History of colonoscopy History of dermoid cyst excision History of esophagogastroduodenoscopy (EGD) History of mandibular surgery FULL ROM History of total shoulder replacement LEFT 07/19 2015 fracture Hx of cholecystectomy S/P shoulder surgery Left S/P tooth extraction Family History Daughter Bipolar disorder Multiple allergies Aunt Breast cancer Mother Diabetes Heart disease Hypertension Hyperthyroidism Father Hearing loss Gastric cancer Myocardial infarction Grandfather Heart disease Family/Other Hypertension Lung cancer Osteoporosis Stroke Brother Hypertension Grandmother Ovarian cancer Sister Migraine Denies family history of Prostate cancer Colorectal cancer Social History Smoking Status: Never smoker Second Hand Exposure: Yes (PARENTS SMOKED); Hx Alcohol Use: No Hx Substance Use: No Preferred Language: Welsh Communication Ability: Effective Microsoft Exchange Architect Required: No Beliefs That Will Affect Care: None marital status: Single Current Living Situation: Family Current Living Situation Comment: currently lives with sister as jennie sinclair current occupational status: unemployed Feels Safe at Home: Yes Safety Concerns: Feels Safe At This Time Childhood Exposure to Second-Hand Smoke: Yes Dental Care, Regularly: Yes Physical Activity Frequency: Does not Exercise Seatbelt Use: never Sunscreen Use: Yes Assistive Devices: Walker Allergies Allergies Allergy/AdvReac Type Severity Reaction Status Date / Time promethazine Allergy Unknown BROKEN Verified 12/01/20 16:57 CAPILLARIES FACE Iodinated Contrast Media AdvReac Unknown Unknown Verified 12/01/20 16:57 [Iodinated Contrast- Oral and IV Dye] Home Meds Home Medications Medication Instructions Recorded Confirmed zinc gluconate 100 mg PO HS 07/23/18 12/01/20 lorazepam 1 mg tablet 1 mg PO BID PRN 03/24/19 12/01/20 trazodone 50 mg tablet 100 mg PO HS tab MDD 100 04/26/20 12/01/20 fluvoxamine 100 mg 150 mg PO BID cap 07/06/20 12/01/20 capsule,extended release 24 hr levothyroxine 50 mcg PO DAILYBB 08/10/20 12/01/20 insulin glargine 100 unit/mL 12 unit SQ HS ml 10/17/20 12/01/20 subcutaneous solution cholecalciferol (vitamin D3) 125 125 mcg PO DAILY 11/21/20 12/01/20 mcg (5,000 unit) capsule insulin lispro 100 unit/mL 0 unit SQ TIDM vial 11/21/20 12/01/20 subcutaneous solution insulin syringe-needle U-100 0.5 ea 11/21/20 mL 31 gauge x 5/16" buspirone 15 mg tablet 15 mg PO BID tab 11/28/20 12/01/20 amoxicillin 2,000 mg PO ONCE PRN 12/01/20 12/01/20 bumetanide 1 mg PO DAILY 12/01/20 12/01/20 calcium-vitamin D3-vitamin K 1 tab PO HS 12/01/20 12/01/20 [Viactiv] pantoprazole 40 mg PO HS 12/01/20 12/01/20 pediatric multivitamin no.76 1 tab PO HS 12/01/20 12/01/20 [Flintstones Complete] polysaccharide iron complex 150 mg PO HS 12/01/20 12/01/20 [Ferrex 150] rivaroxaban [Xarelto] 15 mg PO QDD 12/01/20 12/01/20 Previous Rx's Medication Instructions Recorded OneTouch Ultra Blue Test Strip #400 ea NS 01/26/20 atorvastatin 80 mg tablet 80 mg PO HS #90 tab 01/26/20 lancets #400 ea 02/17/20 flash glucose sensor #1 ea 07/19/20 fenofibrate 160 mg tablet 160 mg PO DAILY #90 tab 11/04/20 folic acid 1 mg tablet 1 mg PO DAILY #90 tab 11/04/20 flecainide 100 mg tablet 100 mg PO Q12H #60 tab 11/25/20 Results & Data (ED) Vital Signs Vital Signs - 24 hr 12/01/20 15:22 12/01/20 15:44 12/01/20 15:53 Temperature 36.5 C Temperature Source Temporal Artery Scan Pulse Rate - Lying Pulse Rate - Sitting Pulse Rate - Standing Pulse Rate 95 H 72 Pulse Rate from SpO2 Sensor 89 Respiratory Rate 20 16 Respiratory Effort / Characteristics Non-Labored Spontaneous Respiratory Depth Normal Blood Pressure - Lying Blood Pressure - Sitting Blood Pressure- Standing Blood Pressure 133/73 Blood Pressure Mean 93 Pulse Oximetry 99 100 100 Oxygen Delivery Method Nasal Cannula Nasal Cannula Oxygen Flow Rate 2 2 Sepsis Recent Fever Within 48 Hours No Sepsis New/Unexplained Change in Mental Status No Sepsis Action Taken by Nursing No Action Required 12/01/20 15:55 12/01/20 16:00 12/01/20 16:30 Temperature Temperature Source Pulse Rate - Lying Pulse Rate - Sitting Pulse Rate - Standing Pulse Rate 89 87 Pulse Rate from SpO2 Sensor 89 87 Respiratory Rate 23 17 Respiratory Effort / Characteristics Respiratory Depth Blood Pressure - Lying Blood Pressure - Sitting Blood Pressure- Standing Blood Pressure 143/89 H 125/99 Blood Pressure Mean 107 107 109 Pulse Oximetry 100 100 Oxygen Delivery Method Oxygen Flow Rate Sepsis Recent Fever Within 48 Hours Sepsis New/Unexplained Change in Mental Status Sepsis Action Taken by Nursing 12/01/20 17:00 12/01/20 17:01 12/01/20 17:30 Temperature Temperature Source Pulse Rate - Lying Pulse Rate - Sitting Pulse Rate - Standing Pulse Rate 86 85 86 Pulse Rate from SpO2 Sensor 86 84 87 Respiratory Rate 21 20 21 Respiratory Effort / Characteristics Respiratory Depth Blood Pressure - Lying Blood Pressure - Sitting Blood Pressure- Standing Blood Pressure 131/80 Blood Pressure Mean 97 Pulse Oximetry 96 98 99 Oxygen Delivery Method Oxygen Flow Rate Sepsis Recent Fever Within 48 Hours Sepsis New/Unexplained Change in Mental Status Sepsis Action Taken by Nursing 12/01/20 17:31 12/01/20 17:32 12/01/20 18:00 Temperature Temperature Source Pulse Rate - Lying Pulse Rate - Sitting Pulse Rate - Standing Pulse Rate 86 86 86 Pulse Rate from SpO2 Sensor 86 86 86 Respiratory Rate 19 17 19 Respiratory Effort / Characteristics Respiratory Depth Blood Pressure - Lying Blood Pressure - Sitting Blood Pressure- Standing Blood Pressure 142/103 H Blood Pressure Mean 106 116 Pulse Oximetry 99 98 100 Oxygen Delivery Method Oxygen Flow Rate Sepsis Recent Fever Within 48 Hours Sepsis New/Unexplained Change in Mental Status Sepsis Action Taken by Nursing 12/01/20 18:01 12/01/20 18:11 12/01/20 18:13 Temperature Temperature Source Pulse Rate - Lying 82 Pulse Rate - Sitting 87 Pulse Rate - Standing 120 H Pulse Rate 86 89 86 Pulse Rate from SpO2 Sensor 86 86 86 Respiratory Rate 19 20 21 Respiratory Effort / Characteristics Respiratory Depth Blood Pressure - Lying 138/94 Blood Pressure - Sitting 122/87 Blood Pressure- Standing 113/96 Blood Pressure 138/94 122/87 Blood Pressure Mean 108 98 Pulse Oximetry 98 93 100 Oxygen Delivery Method Oxygen Flow Rate Sepsis Recent Fever Within 48 Hours Sepsis New/Unexplained Change in Mental Status Sepsis Action Taken by Nursing 12/01/20 18:14 12/01/20 18:30 12/01/20 18:31 Temperature Temperature Source Pulse Rate - Lying Pulse Rate - Sitting Pulse Rate - Standing Pulse Rate 113 H 93 H 93 H Pulse Rate from SpO2 Sensor 93 H 90 Respiratory Rate 17 12 18 Respiratory Effort / Characteristics Respiratory Depth Blood Pressure - Lying Blood Pressure - Sitting Blood Pressure- Standing Blood Pressure 113/96 Blood Pressure Mean 101 116 Pulse Oximetry 100 100 Oxygen Delivery Method Oxygen Flow Rate Sepsis Recent Fever Within 48 Hours Sepsis New/Unexplained Change in Mental Status Sepsis Action Taken by Nursing 12/01/20 18:32 12/01/20 19:00 Temperature Temperature Source Pulse Rate - Lying Pulse Rate - Sitting Pulse Rate - Standing Pulse Rate 94 H 85 Pulse Rate from SpO2 Sensor 94 H 85 Respiratory Rate 17 18 Respiratory Effort / Characteristics Respiratory Depth Blood Pressure - Lying Blood Pressure - Sitting Blood Pressure- Standing Blood Pressure Blood Pressure Mean Pulse Oximetry 100 100 Oxygen Delivery Method Oxygen Flow Rate Sepsis Recent Fever Within 48 Hours Sepsis New/Unexplained Change in Mental Status Sepsis Action Taken by Nursing Laboratory Data Attestation: I reviewed the patient's lab results. Result diagrams: 12/01/20 Unknown 12/01/20 Unknown Lab Results 12/01/20 12/01/20 12/01/20 Range/Units 16:19 16:19 18:15 Urine Color [place] Urine Appearance Clear (Clear) Urine pH 5.0 (4.5-7.5) Ur Specific [place] 1.012 (1.000-1.030) Urine Protein Negative (Negative) Urine Glucose (UA) Negative (Negative) Urine Ketones Negative (Negative) Urine Blood Negative (Negative) Urine Nitrite Negative (Negative) Urine Bilirubin Negative (Negative) Urine Urobilinogen Negative (Negative) Ur Leukocyte Esterase Negative (Negative) COVID-19 Eval Order Covid19 at [facility] SARS-CoV-2 (PCR) NEGATIVE (Negative) Administered Medications Atorvastatin Calcium (Atorvastatin 40 Mg Tab) 80 mg PO HS JOHNATHON Stop: 12/31/20 20:59 Last Admin: 12/01/20 21:42 Dose: 80 mg Documented by: [id number] Buspirone HCl (Buspirone 15 Mg Tab) 15 mg PO BID JOHNATHON Stop: 12/31/20 20:59 Last Admin: 12/01/20 21:42 Dose: 15 mg Documented by: [id number] Flecainide Acetate (Flecainide Acetate 100 Mg Tablet) 100 mg PO Q12H JOHNATHON Stop: 12/31/20 20:59 Last Admin: 12/01/20 21:41 Dose: 100 mg Documented by: [id number] Fluvoxamine Maleate (Fluvoxamine Maleate 50 Mg Tab) 150 mg PO BID JOHNATHON Stop: 12/31/20 20:59 Last Admin: 12/01/20 21:44 Dose: 150 mg Documented by: [id number] Insulin Aspart (Insulin Aspart 100 Units/Ml 3 Ml Pen) 0 units [facility]; Protocol Stop: 12/31/20 20:59 Last Admin: 12/01/20 21:56 Dose: Not Given Documented by: [id number] Cosigned by: [id number] Insulin Glargine (Insulin Glargine Solostar 100 Units/Ml 3 Ml Pen) 12 units SC [facility]; Protocol Stop: 12/31/20 21:29 Last Admin: 12/01/20 21:55 Dose: 12 units Documented by: [id number] Cosigned by: [id number] Pantoprazole Sodium (Pantoprazole 40 Mg Tab) 40 mg PO HS JOHNATHON Stop: 12/31/20 20:59 Last Admin: 12/01/20 21:45 Dose: 40 mg Documented by: [id number] Trazodone HCl (Trazodone Hcl 100 Mg Tab) 100 mg PO HS JOHNATHON Stop: 12/31/20 20:59 Last Admin: 12/01/20 21:40 Dose: 100 mg Documented by: [id number] Discontinued Medications Lorazepam (Ativan) 0.5 mg in 1 mls @ 1 mls/min IV NOW STA Stop: 12/01/20 16:07 Last Admin: 12/01/20 16:16 Dose: 1 mls/min Documented by: [id number] Magnesium Sulfate/Dextrose (Magnesium Sulfate / D5w) 1 gm in 100 mls @ 100 mls/hr IV NOW STA Stop: 12/01/20 18:42 Last Infusion: 12/01/20 19:12 Dose: 0 mls/hr Documented by: [id number] Admin: 12/01/20 18:10 Dose: 100 mls/hr Documented by: [id number] Imaging Data Radiologist's Impression: Chest X-Ray 12/01/20 16:02 XR chest 1V portable CLINICAL HISTORY: Atypical chest pain COMPARISON STUDY: 11/08/2020 FINDINGS: The heart is borderline enlarged. There is no failure. There is no focal pulmonary consolidation. There are no pleural effusions. There is a reverse total left shoulder arthroplasty[ IMPRESSION: No active disease in the chest. ACT 112: Negative or not required by law. Electronically signed by: Donnell Sal M.D. 12/01/2020 5:34 PM Abdomen/Pelvis CT 12/01/20 16:05 CT SCAN OF THE ABDOMEN AND PELVIS WITHOUT IV CONTRAST CLINICAL HISTORY: Nausea. Fall. COMPARISON STUDY: Abdominal ultrasound dated 05/26/2014. TECHNIQUE: CT scan of the abdomen and pelvis is performed from the lung bases to the proximal femora. Images are reviewed in the axial, sagittal, and coronal planes. IV contrast was not administered for this examination. Note that the examination was performed in suboptimal fashion without IV contrast. The examination is also degraded by motion artifact, as well as large body habitus and streak artifact from the body wall abutting the CT gantry. There is also streak artifact from the left arm which could not be elevated above the abdomen. A dose lowering technique was utilized adhering to the principles of ALARA. CT DOSE: 2977.09 mGy.cm FINDINGS: Lung bases: The heart is mildly enlarged and without pericardial effusion. The coronary arteries are densely calcified. A 3 mm pleural-based nodule is seen in the right middle lobe on image #30. The lung bases are otherwise clear noting dependent atelectasis. There is a tiny hiatal hernia. Liver: The unenhanced liver is normal in size, contour, and attenuation. There is no intrahepatic biliary ductal dilatation. Gallbladder: Surgically absent noting clips in the gallbladder fossa. Spleen: Normal in size and attenuation. Pancreas: The unenhanced pancreas is atrophic and grossly unremarkable. Adrenal glands: A 1.6 cm adenoma is noted in the right adrenal gland. The left adrenal gland is normal in appearance. Kidneys: The unenhanced kidneys demonstrate mild cortical atrophy and are without hydronephrosis. There is a 3 mm nonobstructing calculus in the right lower pole. No left renal calculi are identified. There is no evidence of cont our deforming renal mass lesion. Abdominal vasculature: The abdominal aorta is normal in course and caliber noting moderate atherosclerotic calcification. Bowel: There is mild to moderate colonic diverticulosis without CT evidence of acute diverticulitis. Postoperative changes consistent with a history of Silvia-en-Y gastric bypass surgery. No bowel obstruction is seen. The appendix is well-visualized and normal. Peritoneum: There is no intraperitoneal free air or abdominal ascites. Foci of induration within the ventral abdominal pannus are likely related to subcutaneous injections. Lymphadenopathy: None. Pelvic viscera: Intraluminal gas is noted within the bladder. The uterus and adnexa are normal as visualized. Skeletal structures: The skeletal structures are osteopenic. There is moderate lumbosacral spondylosis. There are healed bilateral rib fractures. No lytic or blastic lesions are seen. IMPRESSION: 1. Suboptimal examination without IV contrast. The examination is also compromised by streak and motion. 2. There is no evidence of solid organ injury in the abdomen or pelvis on this unenhanced examination. 3. Postoperative changes consistent with a history of Silvia-en-Y gastric bypass surgery. No bowel obstruction is seen. 4. Right-sided nephrolithiasis. 5. Gas within the bladder lumen may be related to instrumentation. Correlate with clinical findings and urinalysis. 6. Additional findings as above. ACT 112: Negative or not required by law. Electronically signed by: Bryn Jose M.D. 12/01/2020 5:[address] 12/01/20 16:05 CT head/brain wo con CLINICAL HISTORY: dizziness, fall, headstrike 3 wks ago COMPARISON STUDY: October 08, 2018. TECHNIQUE: Axial CT of the brain is performed from the vertex to the skull base. IV contrast was not administered for this examination. A dose lowering technique was utilized adhering to the principles of ALARA. CT DOSE: FINDINGS: No intra or extra-axial mass lesions are visualized. There is no CT evidence of acute cortical infarction. There is no evidence of midline shift. There is no acute hemorrhage. No acute depressed calvarial fractures are visualized. There is no evidence of pathologic ventricular dilatation. There is no evidence of acute sinusitis Redemonstration of postsurgical changes within maxilla.. IMPRESSION: No acute intracranial hemorrhage, no midline shift or space occupying lesions. ACT 112: Negative or not required by law. The above report was generated using voice recognition software. It may contain grammatical, syntax or spelling errors. Electronically signed by: Tiffanie López DO 12/01/2020 5:02 PM Discharge Plan Visit Data Chief Complaint: Dizziness Stated Complaint: POSSIBLE STROKES OR SEIZURES/REFERRED BY ED Provider: Crow Esquivel Discharge Problem: Syncope, Hypomagnesemia, Generalized weakness, Dizziness, CKD (chronic kidney disease) Patient Disposition: Admitted As Inpatient Discharge Instructions Interventions: ED Discharge Assessment Last Done: 12/01/20 20:07 Discharge Problem: Syncope Qualifiers: Syncope type: unspecified Qualified Code(s): R55 - Syncope and collapse CKD (chronic kidney disease) Qualifiers: Chronic kidney disease stage: unspecified stage Qualified Code(s): N18.9 - Chronic kidney disease, unspecified
[2020-12-01 16:36] LABS: Alanine Aminotransferase 28 U/L (12-78); Albumin Level 2.9 gm/dl (3.4-5.0); Aspartate Aminotransferase 32 U/L (15-37); BUN Creatinine Ratio 15.6 (10-20); Bilirubin Direct 0.3 mg/dl (0-0.2); Blood Urea Nitrogen 38 mg/dl (7-18); Calcium 9.1 mg/dl (8.5-10.1); Carbon Dioxide 26 mmol/L (21-32); Chloride 109 mmol/L (98-107); Creatinine Clr Calc Pharmacy 33.6 ml/min; Est GFR (African American) 23.5 ml/min; Est GFR (Non-African American) 20.3 ml/min; Glucose 140 mg/dl (70-99); Lipase 120 U/L (73-393); Magnesium 1.6 mg/dl (1.8-2.4); Potassium 3.9 mmol/L (3.5-5.1); Sodium 143 mmol/L (136-145)
[2020-12-01 16:45] LABS: Alkaline Phosphatase 71 U/L (45-117); Bilirubin,Total 0.5 mg/dl (0.2-1); Globulin 2.9 gm/dl (2.5-4.0); Phosphorus 2.9 mg/dl (2.5-4.9); Total Protein 5.8 gm/dl (6.4-8.2); Troponin I < 0.015 ng/ml (0-0.045)
--- NOTE | 2020-12-01 17:03 | CT Scan Report ---
CT head/brain wo con CLINICAL HISTORY: dizziness, fall, headstrike 3 wks ago COMPARISON STUDY: October 08, 2018. TECHNIQUE: Axial CT of the brain is performed from the vertex to the skull base. IV contrast was not administered for this examination. A dose lowering technique was utilized adhering to the principles of ALARA. CT DOSE: FINDINGS: No intra or extra-axial mass lesions are visualized. There is no CT evidence of acute cortical infarc tion. There is no evidence of midline shift. There is no acute hemorrhage. No acute depressed calvar ial fractures are visualized. There is no evidence of pathologic ventricular dilatation. There is no evidence of acute sinusitis Redemonstration of postsurgical changes within maxilla.. IMPRESSION: No acute intracranial hemorrhage, no midline shift or space occupying lesions. ACT 112: Negative or not required by law. The above report was generated using voice recognition software. It may contain grammatical, syntax o r spelling errors. Electronically signed by: Tiffanie López DO 12/01/2020 5:02 PM
--- NOTE | 2020-12-01 17:11 | CT Scan Report ---
CT SCAN OF THE ABDOMEN AND PELVIS WITHOUT IV CONTRAST CLINICAL HISTORY: Nausea. Fall. COMPARISON STUDY: Abdominal ultrasound dated 05/26/2014. TECHNIQUE: CT scan of the abdomen and pelvis is performed from the lung bases to the proximal femora. Images are reviewed in the axial, sagittal, and coronal planes. IV contrast was not administered for this examination. Note that the examination was performed in suboptimal fashion without IV contrast. The examination is also degraded by motion artifact, as well as large body habitus and streak artifa ct from the body wall abutting the CT gantry. There is also streak artifact from the left arm which c ould not be elevated above the abdomen. A dose lowering technique was utilized adhering to the princi ples of ALA. CT DOSE: 2977.09 mGy.cm FINDINGS: Lung bases: The heart is mildly enlarged and without pericardial effusion. The coronary arteries are densely calcified. A 3 mm pleural-based nodule is seen in the right middle lobe on image #30. The lillie g bases are otherwise clear noting dependent atelectasis. There is a tiny hiatal hernia. Liver: The unenhanced liver is normal in size, contour, and attenuation. There is no intrahepatic valentin iary ductal dilatation. Gallbladder: Surgically absent noting clips in the gallbladder fossa. Spleen: Normal in size and attenuation. Pancreas: The unenhanced pancreas is atrophic and grossly unremarkable. Adrenal glands: A 1.6 cm adenoma is noted in the right adrenal gland. The left adrenal gland is elina l in appearance. Kidneys: The unenhanced kidneys demonstrate mild cortical atrophy and are without hydronephrosis. The re is a 3 mm nonobstructing calculus in the right lower pole. No left renal calculi are identified. T here is no evidence of contour deforming renal mass lesion. Abdominal vasculature: The abdominal aorta is normal in course and caliber noting moderate atheroscle rotic calcification. Bowel: There is mild to moderate colonic diverticulosis without CT evidence of acute diverticulitis. Postoperative changes consistent with a history of Silvia-en-Y gastric bypass surgery. No bowel obstruc tion is seen. The appendix is well-visualized and normal. Peritoneum: There is no intraperitoneal free air or abdominal ascites. Foci of induration within the ventral abdominal pannus are likely related to subcutaneous injections. Lymphadenopathy: None. Pelvic viscera: Intraluminal gas is noted within the bladder. The uterus and adnexa are normal as vis ualized. Skeletal structures: The skeletal structures are osteopenic. There is moderate lumbosacral spondylosi s. There are healed bilateral rib fractures. No lytic or blastic lesions are seen. IMPRESSION: 1. Suboptimal examination without IV contrast. The examination is also compromised by streak and familia on. 2. There is no evidence of solid organ injury in the abdomen or pelvis on this unenhanced examination . 3. Postoperative changes consistent with a history of Silvia-en-Y gastric bypass surgery. No bowel obst ruction is seen. 4. Right-sided nephrolithiasis. 5. Gas within the bladder lumen may be related to instrumentation. Correlate with clinical findings a nd urinalysis. 6. Additional findings as above. ACT 112: Negative or not required by law. Electronically signed by: Bryn Jose M.D. 12/01/2020 5:10 PM
--- NOTE | 2020-12-01 17:36 | XRay Report ---
XR chest 1V portable CLINICAL HISTORY: Atypical chest pain COMPARISON STUDY: 11/08/2020 FINDINGS: The heart is borderline enlarged. There is no failure. There is no focal pulmonary consolid ation. There are no pleural effusions. There is a reverse total left shoulder arthroplasty[ IMPRESSION: No active disease in the chest. ACT 112: Negative or not required by law. Electronically signed by: Donnell Sal M.D. 12/01/2020 5:34 PM
[2020-12-01] MEDS ORDERED: MAGNESIUM SULFATE / D5W 1 GM/100 ML BAG IV STA (17:43)
[2020-12-01 18:36] LABS: Appearance Urine Clear (Clear); Bilirubin Urine Negative (Negative); Blood Urine Negative (Negative); Color Urine Orange; Glucose Urine UA Negative (Negative); Ketones Urine Negative (Negative); Leukocyte Esterase Urine Negative (Negative); Nitrite Urine Negative (Negative); Protein Urine Negative (Negative); Specific Gravity Urine 1.012 (1.000-1.030); Urobilinogen Urine Negative (Negative)
[2020-12-01] MEDS ORDERED: MAGNESIUM HYDROXIDE SUSP 30 ML UDC PO PRN (19:09)
[2020-12-01] MEDS ORDERED: ALUMINUM/MAGNESIUM SUSP 30 ML UDC PO PRN (19:09)
[2020-12-01] MEDS ORDERED: ACETAMINOPHEN 325 MG TAB PO PRN (19:09)
--- NOTE | 2020-12-01 19:09 | History & Physical Report ---
Date of Service December 01, 2020 Assessment & Plan (1) Syncope: Jerri Arellano is a 60yo female with a PMH including T2DM, recently-diagnosed atrial fibrillation (on Xarelto), CKD4 with AV fistula (placed 08/2020), morbid obesity s/p bariatric surgery (08/2020), HFpEF, HTN, HLD, and TRUMAN (on CPAP) who presents with a 2-3 month history of progressively worsening weakness/dizziness with exertion and a 2-week history of syncope with exertion. Presyncope/syncope Episodes of lightheadedness, dizziness, and vision change +/- loss of consciousness, reliably triggered by exertion, seemingly independent of position change In the setting of recently-diagnosed afib, new meds, worsening CKD, multiple comorbidities, and recent bariatric surgery with subsequent 70lb+ weight loss Differential includes cardiogenic syncope (bradyarrhythmia or valvular), vasovagal syncope, orthostatic hypotension, dysautonomia 2/2 DM or CKD Neurologic origin seems unlikely EKG notable for rate-controlled afib, troponin neg, CXR without acute process Orthostatic vital signs Admit to med/surg tele Consult cardiology (follows with Dr. Fontaine) Folate, B12 level Fall precautions Atrial fibrillation In afib on admission, rate controlled initially but with episode of RVR to 110s Continue home xarelto, flecainide Cardiology consulted IDDM2 Holding home DM2 regimen Glycemic consult placed ISS Anemia Iron, ferritin, transferrin, TIBC levels ordered History of bariatric surgery (08/2020) Glycemic consult and nutrition consult placed Bariatric post-op (1+ mo) diet (+ heart healthy, DM2 diet) B12, folate levels HFpEF No overt symptoms of CHF exacerbation on admission, CXR without signs of fluid overload EF (08/2020) 55-60% with mild concentric LVH Continue bumetanide (creatinine actually improved compared to recent levels) Hypomagnesemia 1.6 on admission, repleted in ED Follow up repeat mag level COPD Home O2 regimen: 2L at night or with exertion, none at daytime O2 via NC as-needed to maintain sat>89% HTN Normotensive/slightly elevated on admission Continue home meds HLD Continue home atorvastatin, fenofibrate Anxiety, depression Continue home buspirone, trazodone, fluvoxamine, lorazepam Hypothyroidism TSH on admission wnl Continue home levothyroxine Dispo planning CM consulted (patient's home is without safety/accessibility equipment e.g. shower seat) FEN: dialysis renal, heart healthy, bariatric post-op (1+ month) diet Code status: full code DVT ppx: xarelto Isolation: none Consults: cardiology, nutrition, glycemic consult Dispo: med/surg tele (2) Anxiety and depression: (3) Atrial fibrillation, new onset: (4) Chronic kidney disease, stage 4 (severe): (5) COPD (chronic obstructive pulmonary disease): (6) Diabetic nephropathy: (7) HTN (hypertension): (8) Hyperlipemia: (9) Hypothyroidism: (10) Morbid obesity: (11) Nocturnal hypoxia: (12) Obesity hypoventilation syndrome: (13) Claustrophobia: (14) Type 2 diabetes mellitus: (15) Status post gastric bypass for obesity: History of Present Illness Primary Care Provider: William Lewis MD Jerri Arellano is a 60yo female with a PMH including T2DM, recently-diagnosed atrial fibrillation (on Xarelto), CKD4 with AV fistula (placed 08/2020), morbid obesity s/p bariatric surgery (08/2020), HFpEF, HTN, HLD, and TRUMAN (on CPAP) who presents with a 2-3 month history of progressively worsening weakness/dizziness with exertion and a 2-week history of syncope with exertion. Patient reports a 2-3 month history of worsening episodes of weakness, lightheadedness, and dizziness that reliably occurs with exertion, typically after standing and walking a short distance (10-50 feet), with three episodes in the past two weeks resulting in LOC and falls. Patient first noticed weakness/dizziness with exertion while at inpatient rehab after bariatric surgery this year (09/14/2020). Since then, her symptoms have worsened, become more frequent, and have been happening at shorter walking distances. Initially, patient's lightheadedness and dizziness would resolve quickly upon sitting down and resting, but over the past 4-6 weeks, patient reports symptoms persisting for 10-30 minutes with rest. Additionally, over the past 2-4 weeks, some (but not all) episodes are associated with severe nausea for 10-30 minutes, sometimes with vomiting. During one witnessed episode two weeks ago, patient became lightheaded and dizzy while standing; about 30 seconds later, patient experi enced a sudden loss of bowel continence without preceding bowel urgency; patient did not lose consciousness, and upon laying down to rest, experienced 10-15 minutes of nausea before symptoms resolved. Patient reports three episodes over the past two weeks in which her exertional weakness/lightheadedness/dizziness episodes led to vision loss, loss of consciousness, and falling. Patient reports she felt these prodromal symptoms for 1-5 minutes before LOC and falling. During one episode two weeks ago, patient became lightheaded and dizzy in the shower and called out to her to help prevent a fall. He helped her sit onto the toilet seat; per 's report, her head then fell backwards, her arms raised into the air and convulsed symmetrically, her eyes opened wide, and she remained unconscious for about a minute before slowly "coming back". She was nauseous for 30 minutes afterward. She did not injure her head at that time (hit it on a soft basket). Patient does not remember events between sitting down and regaining consciousness a minute or so later. Patient experienced an episode yesterday tathat resulted in LOC, falling, and scraping her leg, followed by 30 minutes of nausea with dry wretching. Patient's bypass surgery (09/14/20 at [facility]) was followed by a prolonged hospitalization due to CKD; patient received dialysis during this hospitalization (using an AV fistula, placed 09/[address] Ricks, due to patient's worsening renal disease). Patient was also noted to have atrial fibrillation with RVR during that hospitalization and was started on xarelto. Patient was transferred to [facility] on 09/25 and had two weeks of inpatient rehab before discharge home. Patient had a virtual visit with [facility] on 11/25 and was placed on flecainide due to high ventricular rates, which patient has been monitoring at home. Patient then had another virtual visit with [facility] on 11/28 during which she endorsed some dizziness and weakness. Patient admits withholding details of the extent of her presyncopal/syncopal episodes from her PCP and her bottoming machine operator, as she felt her symptoms would improve over time. Patient endorses being very diligent about monitoring her blood glucose, and since her diagnosis of afib, has been monitoring her BP and HR multiple times daily at home. Patient keeps a log of these numbers, but does not have them with her at this time. Patient reports logging her BSG, BP, and HR before every time she wants to shower, and reports she will not attempt to shower if she has a BSG under 100 or if her HR is under 90. Patient endorses chronic mild SOB with exertion due to COPD, and reports her SOB has been no worse recently than it has been for years. Patient has a 2L nighttime oxygen requirement and occasionally uses oxygen with exertion at home. Also reports chronic LE edema, also no worse recently compared to normal. Patient lives at home with her , but more recently has been spending most days each week at her sister's home because her sister's home is better-equipped with safety equipment including a spacious shower with a shower seat and shower bars. Patient denies chest pain, abdominal pain, fever, congestion, sore throat, diarrhea, dysuria, bladder incontinence, numbness, tingling, or other symptoms. Allergies Allergy/AdvReac Type Severity Reaction Status Date / Time promethazine Allergy Unknown BROKEN Verified 12/01/20 16:57 CAPILLARIES FACE Iodinated Contrast Media AdvReac Unknown Unknown Verified 12/01/20 16:57 [Iodinated Contrast- Oral and IV Dye] Home Medications Medication Instructions Recorded Confirmed Type zinc gluconate 100 mg PO HS 07/23/18 12/01/20 History lorazepam 1 mg tablet 1 mg PO BID PRN 03/24/19 12/01/20 History OneTouch Ultra Blue Test Strip #400 ea NS 01/26/20 11/21/20 Rx atorvastatin 80 mg tablet 80 mg PO HS #90 tab 01/26/20 12/01/20 Rx lancets #400 ea 02/17/20 11/21/20 Rx trazodone 50 mg tablet 100 mg PO HS tab MDD 100 04/26/20 12/01/20 History fluvoxamine 100 mg 150 mg PO BID cap 07/06/20 12/01/20 History capsule,extended release 24 hr flash glucose sensor #1 ea 07/19/20 10/17/20 Rx levothyroxine 50 mcg PO DAILYBB 08/10/20 12/01/20 History insulin glargine 100 unit/mL 12 unit SQ HS ml 10/17/20 12/01/20 History subcutaneous solution fenofibrate 160 mg tablet 160 mg PO DAILY #90 tab 11/04/20 12/01/20 Rx folic acid 1 mg tablet 1 mg PO DAILY #90 tab 11/04/20 12/01/20 Rx cholecalciferol (vitamin D3) 125 125 mcg PO DAILY 11/21/20 12/01/20 History mcg (5,000 unit) capsule insulin lispro 100 unit/mL 0 unit SQ TIDM vial 11/21/20 12/01/20 History subcutaneous solution insulin syringe-needle U-100 0.5 ea 11/21/20 History mL 31 gauge x 10/30" flecainide 100 mg tablet 100 mg PO Q12H #60 tab 11/25/20 12/01/20 Rx buspirone 15 mg tablet 15 mg PO BID tab 11/28/20 12/01/20 History amoxicillin 2,000 mg PO ONCE PRN 12/01/20 12/01/20 History bumetanide 1 mg PO DAILY 12/01/20 12/01/20 History calcium-vitamin D3-vitamin K 1 tab PO HS 12/01/20 12/01/20 History [Viactiv] pantoprazole 40 mg PO HS 12/01/20 12/01/20 History pediatric multivitamin no.76 1 tab PO HS 12/01/20 12/01/20 History [Flintstones Complete] polysaccharide iron complex 150 mg PO HS 12/01/20 12/01/20 History [Ferrex 150] rivaroxaban [Xarelto] 15 mg PO QDD 12/01/20 12/01/20 History Past Med/Surg History Medical History Acute kidney injury Acute renal failure (05/23/14) 2013. Kidneys recovered to around CKD III, then function worsened around 04/2020. Anemia due to chronic kidney disease Anxiety and depression Arthralgia of multiple sites Avascular necrosis of head of humerus Cardiac murmur Mild TR noted on 2019 echo. Chronic kidney disease, stage 4 (severe) F/U [facility]- nephrology Chronic low back pain Chronic rhinitis Chronic sinusitis Claustrophobia Diabetes Diabetic nephropathy Diabetic peripheral neuropathy Diabetic retinopathy, nonproliferative Diastolic congestive heart failure Euvolemic on exam at [facility] 09/02/20. 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 Per [facility] pulm 12/2019, "fairly stable from a pulmonary perspective. She is short of breath with any exertion, however a large part of this is likely related to obesity. Pulmonary functions done 1 year ago showed only a mild restrictive pattern. Diffusion was slightly decreased to 66%. One year ago she did have a normal arterial blood gas with no evidence of CO2 retention." Using PRN 3L, mostly using with exertion, not using every day. Morbid obesity Nasal septal deviation Nocturnal hypoxia Nontoxic multinodular goiter TRUMAN (obstructive sleep apnea) PRESCRIBED BIPAP-CAN'T TOLERATE-CLAUSTROPHOBIC Vitamin D deficiency Surgical History (Updated 10/17/20 @ 12:23 by William Lewis MD) H/O section History of arthroscopy LEFT SHOULDER History of colonoscopy History of dermoid cyst excision History of esophagogastroduodenoscopy (EGD) History of mandibular surgery FULL ROM History of total shoulder replacement LEFT 07/19 2015 fracture Hx of cholecystectomy S/P shoulder surgery Left S/P tooth extraction Family History Daughter Bipolar disorder Multiple allergies Aunt Breast cancer Mother Diabetes Heart disease Hypertension Hyperthyroidism Father Hearing loss Gastric cancer Myocardial infarction Grandfather Heart disease Family/Other Hypertension Lung cancer Osteoporosis Stroke Brother Hypertension Grandmother Ovarian cancer Sister Migraine Denies family history of Prostate cancer Colorectal cancer Social History Smoking Status: Never smoker Second Hand Exposure: Yes (PARENTS SMOKED); Hx Alcohol Use: No Hx Substance Use: No Preferred Language: Italian Communication Ability: Effective Bench Inspector Required: No Beliefs That Will Affect Care: None marital status: Single Current Living Situation: Family Current Living Situation Comment: currently lives with sister as travels alot current occupational status: unemployed Feels Safe at Home: Yes Safety Concerns: Feels Safe At This Time Childhood Exposure to Second-Hand Smoke: Yes Dental Care, Regularly: Yes Physical Activity Frequency: Does not Exercise Seatbelt Use: never Sunscreen Use: Yes Assistive Devices: Walker Review of Systems Review of Systems: See HPI Physical Exam Physical Exam: Constitutional: well-appearing, very pleasant woman in no acute distress HEENT: NCAT, no conjunctival injection, facial pallor CV: irregular rhythm, rate 80s, systolic 2/6 crescendo-decrescendo murmur appreciated, extremities well-perfused Resp: faint wheeze in posterior left lower lobe but CTA otherwise, CTABL anteriorly, good air movement, no increased WOB GI: soft, nondistended, nontender, BS normoactive MSK: no gross deformities appreciated Skin: minor superficial abrasions on front of left bowen Neuro: AOx4, no focal neurological deficits appreciated, resting tremor of tongue appreciated Psych: cooperative, pleasant, appropriate rate/volume/quantity of speech Results & Data Results & Data ([facility]) Vital Signs (Past 12 Hours) Vital Signs Temp Pulse Resp BP Pulse Ox 12/01/20 18:31 93 H 18 100 12/01/20 18:30 93 H 12 100 12/01/20 18:14 113 H 17 113/96 12/01/20 18:13 86 21 122/87 100 12/01/20 18:11 89 20 138/94 93 12/01/20 18:01 86 19 98 12/01/20 18:00 86 19 142/103 H 100 12/01/20 17:32 86 17 98 12/01/20 17:31 86 19 99 12/01/20 17:30 86 21 99 12/01/20 17:01 85 20 98 12/01/20 17:00 86 21 131/80 96 12/01/20 16:00 87 17 125/99 100 12/01/20 15:55 89 23 143/89 H 100 12/01/20 15:53 100 12/01/20 15:44 72 16 100 12/01/20 15:22 36.5 C 95 H 20 133/73 99 Supervising Physician Co-Signing Physician Notes I also saw the patient and confirmed posada portions of the history and the exam. I discussed the case with the resident and I agree with the impression and plan as noted in his documentation. Briefly, 60 y/o female with history of gastric bypass in late August, at [facility], relatively new onset atrial fibrillation, and recently S/P A-V fistula for progressive renal disease presents to the ED with recurrent episodes of presyncope. She was recently started on flecainide; the episodes have all been since her gastric bypass but before recent addition of flecainide. She also has a history of IDDM; is managed fairly closely with nephrology and has been adjusting her insulin regimen (Lantus and sliding scale) since her gastric bypass. Upon examination today lying in the emergency department bed, she complains of feeling fatigued. She notes the most of the episodes -all the episodes -occur with ambulation. EXAM 168/90, 91, 18, 36.8 C, 100% on nasal cannula, 2 L/min Pleasant/alert. No acute distress Irregularly irregular; auscultated rate in the mid 70s. 2/6 systolic ejection murmur, left sternal border. Lungs are clear Abdomen is soft and nontender Slight bilateral pedal edema DATA Hemoglobin 9.9, hematocrit 32.1% WBC 4.36 Sodium 143, potassium 3.9, BUN 38, creatinine 2.46 Magnesium 1.6 Total protein 5.8 Albumin 2[address] scan of the head is unremarkable. Chest x-ray shows no acute process. CT scan of the abdomen and pelvis shows postoperative Silvia-en-Y changes. IMPRESSION AND PLAN Presyncope/episode, recurrent, Question sinus node dysfunction secondary to gastric bypass Atrial fibrillation Status post gastric bypass Chronic kidney disease status post AV fistula placement She could have develop sinus node dysfunction/sinus bradycardia secondary to her gastric bypass. It is not entirely clear today if her symptoms have worsened with the addition of flecainide. She has a mild anemia, and could have other nutritional deficiencies subsequent to her gastric bypass; she has significant renal disease, so her symptoms could be multifactorial. Observation to telemetry. Hopefully will catch an episode during monitoring. Consult cardiology. Check thiamine and B12 as well as iron, on nutritional deficiencies subsequent to gastric bypass. Doubt would be cause, but certainly could be contributing factors. Agree with nutrition consult. Resident Activity Tracking Resident Involvement: Resident Care Provided Care Provided: Adult Hospital Medicine (1) Type 2 diabetes mellitus Diabetes mellitus complication status: with other specified complication Diabetes mellitus [facility] insulin use: with buttermaker helper use Qualified Code(s): E11.69 - Type 2 diabetes mellitus with other specified complication; Z79.4 - terminal clerk (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
[2020-12-01] MEDS ORDERED: GLUCAGON FOR INJ 1 MG VIAL SQ PRN (19:35)
[2020-12-01] MEDS ORDERED: CARBOHYDRATES FOR HYPOGLYCEMIA PO PRN (19:35)
[2020-12-01] MEDS ORDERED: DEXTROSE 50% 50 ML SYRINGE IV PRN (19:35)
[2020-12-01] MEDS ORDERED: GLUCOSE 40% GEL 15 GM TUBE PO PRN (19:35)
[2020-12-01] MEDS ORDERED: GLUCOSE 10 TABS/TUBE PO PRN (19:35)
[2020-12-01] MEDS ORDERED: LORazepam 1 MG TAB PO PRN (20:47)
[2020-12-01 20:58] LABS: Folate (Folic Acid) > 20.00 ng/ml (>5.38); Vitamin B12 531 pg/ml (193-986)
[2020-12-01] MEDS ORDERED: fluvoxaMINE MALEATE 50 MG TAB PO SCH (21:00)
[2020-12-01] MEDS ORDERED: PHARMACY GLYCEMIC MGMT CONSULT PRN (21:24)
[2020-12-01] MEDS ORDERED: INSULIN GLARGINE SOLOSTAR 100 UNITS/ML 3 ML PEN SC SCH (21:30)
[2020-12-01] MEDS: traZODone HCL 100 MG TAB PO SCH (21:40)
[2020-12-01] MEDS: FLECAINIDE ACETATE 100 MG TABLET PO SCH (21:41)
[2020-12-01] MEDS: busPIRone 15 MG TAB PO SCH (21:42)
[2020-12-01] MEDS: ATORVASTATIN 40 MG TAB PO SCH (21:42)
[2020-12-01] MEDS: fluvoxaMINE MALEATE 50 MG TAB PO SCH (21:44)
[2020-12-01] MEDS: PANTOprazole 40 MG TAB PO SCH (21:45)
[2020-12-01] MEDS: INSULIN ASPART 100 UNITS/ML 3 ML PEN SC SCH (21:56)
[2020-12-02] MEDS ORDERED: INSULIN ASPART 100 UNITS/ML 3 ML PEN SC SCH (02:00)
[2020-12-02] MEDS: LEVOTHYROXINE SODIUM 50 MCG TABLET PO SCH (06:04)
[2020-12-02 07:20] LABS: Immature Retic Fraction 9.5 % (3.0-15.9); Reticulated Hemoglobin 28.2 pg (28.2-36.6); Reticulocyte % 1.5 % (0.5-2.0); Reticulocytes # 0.05 10^6/uL (0.02-0.10)
[2020-12-02 07:36] LABS: Calcium 8.7 mg/dl (8.5-10.1); Creatinine Clr Calc Pharmacy 36.7 ml/min; Est GFR (African American) 26.7 ml/min; Magnesium 1.9 mg/dl (1.8-2.4); Potassium 3.5 mmol/L (3.5-5.1)
[2020-12-02 07:41] LABS: Ferritin 373.6 ng/ml (8-388)
[2020-12-02] MEDS: busPIRone 15 MG TAB PO SCH ×2 (08:06→21:59)
[2020-12-02] MEDS: BUMETANIDE 1 MG TAB PO SCH (08:06)
[2020-12-02] MEDS: FLECAINIDE ACETATE 100 MG TABLET PO SCH ×2 (08:08→21:57)
[2020-12-02] MEDS: fluvoxaMINE MALEATE 50 MG TAB PO SCH ×2 (08:08→22:00)
[2020-12-02] MEDS: FOLIC ACID 1 MG TAB PO SCH (08:08)
[2020-12-02] MEDS: INSULIN ASPART 100 UNITS/ML 3 ML PEN SC SCH ×4 (08:09→21:55)
[2020-12-02] MEDS ORDERED: Nursing to Pharmacy Communication SCH (09:00)
[2020-12-02] MEDS: RIVAROXABAN 15 MG TAB PO SCH (09:29)
[2020-12-02] MEDS: FENOFIBRATE NANOCRYSTALLIZED 145 MG TABLET PO SCH (12:07)
--- NOTE | 2020-12-02 12:23 | Hospitalist Progress Note ---
Date of Service December 02, 2020 Assessment & Plan (1) Syncope: Jerri Arellano is a 60yo female with a PMH including T2DM, recently-diagnosed atrial fibrillation (on Xarelto), CKD4 with AV fistula (placed 08/2020), morbid obesity s/p bariatric surgery (08/2020), HFpEF, HTN, HLD, and TRUMAN (on CPAP) who presents with a 2-3 month history of progressively worsening weakness/dizziness with exertion and a 2-week history of syncope with exertion. Presyncope/syncope Patient's episode today captured on rhythm strip; discussed with Dr. Parisi of cardiology - appears to be atrial flutter, and patient's episodes of exertion seem to cause her rate to vitually double Per cardiology, will restart metoprolol, observe over the weekend, and likely cardiovert on Saturday if patient doesn't spontaneously convert to NSR Continue current medication regimen including flecainide, xarelto Fall precautions IDDM2 Holding home DM2 regimen Glycemic consult placed ISS Anemia Iron wnl, transferrin low, TIBC low, ferritin high normal Pattern suggestive of anemia of chronic disease; continue to treat underlying conditions History of bariatric surgery (08/2020) Glycemic consult and nutrition consult placed Bariatric post-op (1+ mo) diet (+ heart healthy, DM2 diet) B12, folate levels HFpEF No overt symptoms of CHF exacerbation on admission, CXR without signs of fluid overload EF (08/2020) 55-60% with mild concentric LVH Continue bumetanide Hypomagnesemia 1.6 on admission, repleted in ED, resolved Mag level qod COPD Home O2 regimen: 2L at night or with exertion, none at daytime O2 via NC as-needed to maintain sat>89% HTN Normotensive/slightly elevated on admission Continue home meds HLD Continue home atorvastatin, fenofibrate Anxiety, depression Continue home buspirone, trazodone, fluvoxamine, lorazepam Hypothyroidism TSH on admission wnl Continue home levothyroxine Dispo planning CM consulted (patient's home is without safety/accessibility equipment e.g. shower seat) FEN: dialysis renal, heart healthy, bariatric post-op (1+ month) diet Code status: full code DVT ppx: xarelto Isolation: none Consults: cardiology, nutrition, glycemic consult Dispo: med/surg tele (2) Anxiety and depression: (3) Atrial fibrillation, new onset: (4) Chronic kidney disease, stage 4 (severe): (5) COPD (chronic obstructive pulmonary disease): (6) Diabetic nephropathy: (7) HTN (hypertension): (8) Hyperlipemia: (9) Hypothyroidism: (10) Morbid obesity: (11) Nocturnal hypoxia: (12) Obesity hypoventilation syndrome: (13) Claustrophobia: (14) Type 2 diabetes mellitus: (15) Status post gastric bypass for obesity: Admission and Anticipated Discharge Date Admission Date: December 01, 2020 Supervising Physician Co-Signing Physician Notes Patient seen and examined with PGY-1, Dr. Batres. Agree with history, exam findings, assessment and plan of care as outlined. In brief, Jerri is a 60 y/o female with history of gastric bypass in late August, at [facility], relatively new onset atrial fibrillation, and recently S/P A-V fistula for progressive renal disease presents to the ED with recurrent episodes of presyncope. She was recently started on flecainide; the episodes have all been since her gastric bypass but before recent addition of flecainide. She also has a history of IDDM; is managed fairly closely with nephrology and has been adjusting her insulin regimen (Lantus and sliding scale) since her gastric bypass. Did have a presyncopal episode earlier today while being assisted to the restroom. Became tachycardic. VS and nursing notes reviewed. Well appearing, resting in bed. Review of sack cleaner does show atrial fibrillation, rate controlled with episodes of possible a flutter with increased rates. Lungs are clear to auscultation. Trace edema. 1. Presyncope/episode, recurrent. Secondary to afib/flutter with RVR. Start metoprolol. Continue flecainide. Possible cardioversion next week if she does not spontaneously convert to sinus over the weekend. Appreciate cardiology recommendations. 2. afib/flutter. See above. Continue anticoagulation with Xarelto. Can consider switching to Eliquis in the future. 3. DM. Insulin dependent. Appreciate glycemic consult recommendations and management. Dispo: Pending clinical improvement. Subjective Patient seen and evaluated throughout the day today. Patient felt well this morning and was resting in bed comfortably. Per RN, patient got up to use the toilet this morning with assistance. Upon reaching the toilet, patient suddenly became dizzy and lightheaded and notified staff she needed assistance. Patient sat on the toilet and per RN, HR increased from 80s to 170s and BP was unobtainable. Patient was woozy but remained conscious. Multiple staff helped patient back into hospital bed, and after a short time, patient's tachycardia and presyncopal symptoms resolved. Since then, patient has not had a recurrence of symptoms. Has remained in bed. Patient is anxious about her situation but remains optimistic. Patient denies CP, SOB, abdominal pain, back pain, dysuria, diarrhea, or other symptoms. Review of Systems Review of Systems: See HPI Physical Exam Physical Exam: Constitutional: well-appearing, comfortable, NAD CV: irregular rhythm, rate 80s, systolic 2/6 crescendo-decrescendo murmur appreciated Resp: CTABL GI: soft, nondistended, nontender, BS normoactive Neuro: AOx4, no focal neurological deficits appreciated, resting tremor of tongue Psych: cooperative, pleasant, appropriate rate/volume/quantity of speech Results & Data Results & Data ([facility]) Vital Signs (Past 12 Hours) Vital Signs Temp Pulse Pulse Resp BP Pulse Ox 12/02/20 11:19 36.8 C 80 20 194/107 H 100 12/02/20 08:00 85 12/02/20 07:16 36.8 C 84 19 154/98 H 99 12/02/20 04:18 36.5 C 81 18 124/67 99 Resident Activity Tracking Resident Involvement: Resident Care Provided Care Provided: Adult Hospital Medicine (1) Type 2 diabetes mellitus Diabetes mellitus complication status: with other specified complication Diabetes mellitus terminal system operator insulin use: with custodial use Qualified Code(s): E11.69 - Type 2 diabetes mellitus with other specified complication; Z79.4 - oil heaterman (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
--- NOTE | 2020-12-02 14:04 | Pharmacy Report ---
Pharmacy Glycemic Short Note 2 - Date of Service December 02, 2020 - Glycemic Short BSG Results (Last 24 hours): 12/01/20 12/01/20 12/01/20 20:54 21:53 Unknown Glucose 140 H POC Glucose 120 H 127 H 12/02/20 12/02/20 12/02/20 03:47 06:54 07:17 Glucose 81 POC Glucose 95 83 12/02/20 11:17 Glucose POC Glucose 135 H OUTPATIENT ANTIDIABETIC REGIMEN: * Lantus 12 units Q HS * Humalog per sliding scale, typically uses a CR of ~5 or 6 * A1c = 6.5% 08/24/20 ASSESSMENT: * Type 2 diabetic admitted to PCU for syncope and weakness - good glycemic control per last A1c * Patient has h/o bariatric surgery 08/2020 which has led to dramatic changes insulin needs * Fasting BSG 83 this AM with 12 units Lantus on board - will reduce dose * Novolog CF and CR are set in doses similar to what patient reports for meal coverage at home - no change at this time PLAN FOR INPATIENT GLYCEMIC CONTROL: * Check A1c * Basal insulin * Lantus 10 units SQ HS * Bolus insulin * NovoLog per scale ACHS or Q6hrs while NPO * Goal Range: Low 120 mg/dL - High 160 mg/dL * Correction Factor: 20 mg/dL/unit * Nutritional / Prandial insulin per carb ratio of 1 unit per 6 grams CHO consumed PLAN FOR DISCHARGE: * If not experiencing frequent hypoglycemic episodes, patient may resume Home doses of Lantus and Humalog. She does follow with Dr Olmstead's office.
--- NOTE | 2020-12-02 15:29 | Cardiology Consultation ---
Date of Consultation December 02, 2020 Assessment & Plan (1) Syncope: Her presenting symptoms are concerning for vagally mediated event. The fact that she had just exited the shower and had a prolonged period of severe fatigue suggests vagal input. It is possible it was related to high ventricular rates which we have seen in the hospital. She appears to have had similar but less severe symptoms previously when exiting the shower. (2) Dizziness: She does have dizziness at times. This seems to correlate with high ventricular rates. When she ambulated to the commode today she developed very high ventricular rates and had some symptoms. I suspect this is with contributes to most of her dizziness. Hopefully with improved rate control we can attenuate these episodes. She may require cardioversion. (3) Left ventricular hypertrophy: Seen previously on echocardiogram. Likely related to longstanding hypertension. (4) Atrial fibrillation and flutter: I believe her current rhythm is atrial flutter or possibly atrial fibrillation. I do not think she is currently in a sinus rhythm. It is very difficult to discern on telemetry or even EKG, but the steady heart rate in the fact that her heart rate increases quite dramatically with activity would suggest a non sinus rhythm. She had previously been on metoprolol but this was discontinued when she suffered from hypotension. Her pressures appear to be more reasonable and I think it is worth restarting metoprolol. Will continue flecainide for the time being. If we are not convinced she has returned to a sinus rhythm by early next week she would likely benefit from cardioversion. With respect to her anticoagulation, she would likely be better served by full dose Eliquis. History of Present Illness Reason for Consultation: Syncope, atrial fibrillation Requesting Physician: Andrea Attending Physician: Carly Mendez DO History of Present Illness The patient is a 60-year-old woman with a history of atrial fibrillation who experienced an episode of syncope at home. It seems that the patient was taking a shower and when exiting the shower became profusely dizzy and lightheaded. She was found by her and was unconscious for a brief period. Subsequent to this event the patient felt quite weak and tired for an extended duration. He brought the hospital for evaluation. The patient has a complex medical history and recently underwent a gastric bypass which was complicated by hypotension and renal failure. Patient was also noted to have atrial fibrillation during that hospitalization. She was on amiodarone for a period of time. More recently her regimen was switched to flecainide. It also seems that her metoprolol had been discontinued over concerns of hypotension. Allergies Allergy/AdvReac Type Severity Reaction Status Date / Time promethazine Allergy Unknown BROKEN Verified 12/01/20 16:57 CAPILLARIES FACE Iodinated Contrast Media AdvReac Unknown Unknown Verified 12/01/20 16:57 [Iodinated Contrast- Oral and IV Dye] Home Medications Medication Instructions Recorded Confirmed Type zinc gluconate 100 mg PO HS 07/23/18 12/01/20 History lorazepam 1 mg tablet 1 mg PO BID PRN 03/24/19 12/01/20 History OneTouch Ultra Blue Test Strip #400 ea NS 01/26/20 11/21/20 Rx atorvastatin 80 mg tablet 80 mg PO HS #90 tab 01/26/20 12/01/20 Rx lancets #400 ea 02/17/20 11/21/20 Rx trazodone 50 mg tablet 100 mg PO HS tab MDD 100 04/26/20 12/01/20 History fluvoxamine 100 mg 150 mg PO BID cap 07/06/20 12/01/20 History capsule,extended release 24 hr flash glucose sensor #1 ea 07/19/20 10/17/20 Rx levothyroxine 50 mcg PO DAILYBB 08/10/20 12/01/20 History insulin glargine 100 unit/mL 12 unit SQ HS ml 10/17/20 12/01/20 History subcutaneous solution fenofibrate 160 mg tablet 160 mg PO DAILY #90 tab 11/04/20 12/01/20 Rx folic acid 1 mg tablet 1 mg PO DAILY #90 tab 11/04/20 12/01/20 Rx cholecalciferol (vitamin D3) 125 125 mcg PO DAILY 11/21/20 12/01/20 History mcg (5,000 unit) capsule insulin lispro 100 unit/mL 0 unit SQ TIDM vial 11/21/20 12/01/20 History subcutaneous solution insulin syringe-needle U-100 0.5 ea 11/21/20 History mL 31 gauge x 5/16" flecainide 100 mg tablet 100 mg PO Q12H #60 tab 11/25/20 12/01/20 Rx buspirone 15 mg tablet 15 mg PO BID tab 11/28/20 12/01/20 History amoxicillin 2,000 mg PO ONCE PRN 12/01/20 12/01/20 History bumetanide 1 mg PO DAILY 12/01/20 12/01/20 History calcium-vitamin D3-vitamin K 1 tab PO HS 12/01/20 12/01/20 History [Viactiv] pantoprazole 40 mg PO HS 12/01/20 12/01/20 History pediatric multivitamin no.76 1 tab PO HS 12/01/20 12/01/20 History [Flintstones Complete] polysaccharide iron complex 150 mg PO HS 12/01/20 12/01/20 History [Ferrex 150] rivaroxaban [Xarelto] 15 mg PO QDD 12/01/20 12/01/20 History Patient History Medical History Acute kidney injury Acute renal failure (05/23/14) 2013. Kidneys recovered to around CKD III, then function worsened around 04/2020. Anemia due to chronic kidney disease Anxiety and depression Arthralgia of multiple sites Avascular necrosis of head of humerus Cardiac murmur Mild TR noted on 2019 echo. Chronic kidney disease, stage 4 (severe) F/U [facility]- nephrology Chronic low back pain Chronic rhinitis Chronic sinusitis Claustrophobia Diabetes Diabetic nephropathy Diabetic peripheral neuropathy Diabetic retinopathy, nonproliferative Diastolic congestive heart failure Euvolemic on exam at [facility] 09/02/20. 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 Per [facility] pulm 12/2019, "fairly stable from a pulmonary perspective. She is short of breath with any exertion, however a large part of this is likely related to obesity. Pulmonary functions done 1 year ago showed only a mild restrictive pattern. Diffusion was slightly decreased to 66%. One year ago she did have a normal arterial blood gas with no evidence of CO2 retention." Using PRN 3L, mostly using with exertion, not using every day. Morbid obesity Nasal septal deviation Nocturnal hypoxia Nontoxic multinodular goiter TRUMAN (obstructive sleep apnea) PRESCRIBED BIPAP-CAN'T TOLERATE-CLAUSTROPHOBIC Vitamin D deficiency Surgical History H/O section History of arthroscopy LEFT SHOULDER History of colonoscopy History of dermoid cyst excision History of esophagogastroduodenoscopy (EGD) History of mandibular surgery FULL ROM History of total shoulder replacement LEFT 07/19 2015 fracture Hx of cholecystectomy S/P shoulder surgery Left S/P tooth extraction Family History Daughter Bipolar disorder Multiple allergies Aunt Breast cancer Mother Diabetes Heart disease Hypertension Hyperthyroidism Father Hearing loss Gastric cancer Myocardial infarction Grandfather Heart disease Family/Other Hypertension Lung cancer Osteoporosis Stroke Brother Hypertension Grandmother Ovarian cancer Sister Migraine Denies family history of Prostate cancer Colorectal cancer Social History Smoking Status: Never smoker Second Hand Exposure: Yes (PARENTS SMOKED); Hx Alcohol Use: No Hx Substance Use: No Preferred Language: Libyan Communication Ability: Effective Welder Experimental Required: No Beliefs That Will Affect Care: None marital status: Single Current Living Situation: Family Current Living Situation Comment: currently lives with sister as travels alot current occupational status: unemployed Feels Safe at Home: Yes Safety Concerns: Feels Safe At This Time Childhood Exposure to Second-Hand Smoke: Yes Dental Care, Regularly: Yes Physical Activity Frequency: Does not Exercise Seatbelt Use: never Sunscreen Use: Yes Assistive Devices: Walker Review of Systems Review of Systems: All systems reviewed & are unremarkable except as noted in HPI & below Physical Exam Physical Exam: She is alert and oriented x3. Mood affect appear normal. She answered all questions appropriately. HEENT: Sclerae are anicteric. Pupils are equal and reactive to light and accommodation. Extraocular movements were intact. Neuro: Cranial nerves intact Neck: Examination of the submandibular region did not reveal any significant lymphadenopathy. Carotids are palpable bilaterally and free of bruits on auscultation. There was no evidence of jugular venous distention. The thyroid was not enlarged. Lungs: Lungs are clear to auscultation bilaterally. There are no rales wheezes or rhonchi. She has normal respiratory effort without use of accessory muscles. There is normal pulmonary excursion. Cardiac: The rhythm was irregular. S1 and S2 were normal. There are no murmurs on examination. The PMI was not markedly displaced on palpation. Extremities: Patient has bilateral radial pulses that are equal in intensity. There is no evidence cyanosis or clubbing. There was no evidence of significant peripheral edema bilaterally. Skin: There are no rashes noted on examination today. Results & Data ([facility]) Vital Signs (Past 12 Hours) Vital Signs Temp Pulse Pulse Resp BP Pulse Ox 12/02/20 11:19 36.8 C 80 20 194/107 H 100 12/02/20 08:00 85 12/02/20 07:16 36.8 C 84 19 154/98 H 99 12/02/20 04:18 36.5 C 81 18 124/67 99 Laboratory Results Abnormal Lab Results 12/01/20 12/01/20 12/01/20 16:19 16:19 18:15 WBC RBC Hgb Hct MCV MCH MCHC RDW Std Deviation RDW Coeff of Chantal Plt Count MPV Immature Gran % (Auto) Neut % (Auto) Lymph % (Auto) Kerr % (Auto) Eos % (Auto) Baso % (Auto) Reticulocyte % (Auto) Neut # (Auto) Lymph # (Auto) Kerr # (Auto) Eos # (Auto) Baso # (Auto) Reticulocyte # Immature Gran # (Auto) Immature Retic Fraction Retic Hgb Content Sodium Potassium Chloride Carbon Dioxide Anion Gap BUN Creatinine Est Cr Clr Drug Dosing Est GFR ( Amer) Est GFR (Non-Af Amer) BUN/Creatinine Ratio Glucose POC Glucose Calcium Phosphorus Magnesium Iron TIBC Transferrin Ferritin Total Bilirubin Direct Bilirubin AST ALT Alkaline Phosphatase Troponin I Total Protein Albumin Globulin Albumin/Globulin Ratio Lipase Vitamin B12 Folate TSH Urine Color [place] Urine Appearance Clear Urine pH 5.0 Ur Specific Stirling 1.012 Urine Protein Negative Urine Glucose (UA) Negative Urine Ketones Negative Urine Blood Negative Urine Nitrite Negative Urine Bilirubin Negative Urine Urobilinogen Negative Ur Leukocyte Esterase Negative COVID-19 Eval Order Covid19 at [facility] [place] SARS-CoV-2 (PCR) NEGATIVE 12/01/20 12/01/20 12/01/20 19:46 20:54 21:53 WBC RBC Hgb Hct MCV MCH MCHC RDW Std Deviation RDW Coeff of Chantal Plt Count MPV Immature Gran % (Auto) Neut % (Auto) Lymph % (Auto) Kerr % (Auto) Eos % (Auto) Baso % (Auto) Reticulocyte % (Auto) Neut # (Auto) Lymph # (Auto) Kerr # (Auto) Eos # (Auto) Baso # (Auto) Reticulocyte # Immature Gran # (Auto) Immature Retic Fraction Retic Hgb Content Sodium Potassium Chloride Carbon Dioxide Anion Gap BUN Creatinine Est Cr Clr Drug Dosing Est GFR ( Amer) Est GFR (Non-Af Amer) BUN/Creatinine Ratio Glucose POC Glucose 120 H 127 H Calcium Phosphorus Magnesium Iron TIBC Transferrin Ferritin Total Bilirubin Direct Bilirubin AST ALT Alkaline Phosphatase Troponin I Total Protein Albumin Globulin Albumin/Globulin Ratio Lipase Vitamin B12 531 Folate > 20.00 TSH Urine Color Urine Appearance Urine pH Ur Specific [place] Urine Protein Urine Glucose (UA) Urine Ketones Urine Blood Urine Nitrite Urine Bilirubin Urine Urobilinogen Ur Leukocyte Esterase COVID-19 Eval Order SARS-CoV-2 (PCR) 12/01/20 12/01/20 12/02/20 Unknown Unknown 03:47 WBC 4.36 L RBC 3.48 L Hgb 9.9 L Hct 32.1 L MCV 92.2 MCH 28.4 MCHC 30.8 L RDW Std Deviation 47.5 H RDW Coeff of Chantal 14.1 Plt Count 226 MPV 10.3 Immature Gran % (Auto) 0.2 Neut % (Auto) 69.5 Lymph % (Auto) 24.8 Kerr % (Auto) 4.6 Eos % (Auto) 0.7 Baso % (Auto) 0.2 Reticulocyte % (Auto) Neut # (Auto) 3.03 Lymph # (Auto) 1.08 L Kerr # (Auto) 0.20 Eos # (Auto) 0.03 Baso # (Auto) 0.01 Reticulocyte # Immature Gran # (Auto) 0.01 Immature Retic Fraction Retic Hgb Content Sodium 143 Potassium 3.9 Chloride 109 H Carbon Dioxide 26 Anion Gap 8.0 BUN 38 H Creatinine 2.46 H Est Cr Clr Drug Dosing 33.6 Est GFR ( Amer) 23.5 Est GFR (Non-Af Amer) 20.3 BUN/Creatinine Ratio 15.6 Glucose 140 H POC Glucose 95 Calcium 9.1 Phosphorus 2.9 Magnesium 1.6 L Iron TIBC Transferrin Ferritin Total Bilirubin 0.5 Direct Bilirubin 0.3 H AST 32 ALT 28 Alkaline Phosphatase 71 Troponin I < 0.015 Total Protein 5.8 L Albumin 2.9 L Globulin 2.9 Albumin/Globulin Ratio 1.0 Lipase 120 Vitamin B12 Folate TSH 2.830 Urine Color Urine Appearance Urine pH Ur Specific [place] Urine Protein Urine Glucose (UA) Urine Ketones Urine Blood Urine Nitrite Urine Bilirubin Urine Urobilinogen Ur Leukocyte Esterase COVID-19 Eval Order SARS-CoV-2 (PCR) 12/02/20 12/02/20 12/02/20 06:54 06:54 07:17 WBC RBC Hgb Hct MCV MCH MCHC RDW Std Deviation RDW Coeff of Chantal Plt Count MPV Immature Gran % (Auto) Neut % (Auto) Lymph % (Auto) Kerr % (Auto) Eos % (Auto) Baso % (Auto) Reticulocyte % (Auto) 1.5 Neut # (Auto) Lymph # (Auto) Kerr # (Auto) Eos # (Auto) Baso # (Auto) Reticulocyte # 0.05 Immature Gran # (Auto) Immature Retic Fraction 9.5 Retic Hgb Content 28.2 Sodium 146 H Potassium 3.5 Chloride 113 H Carbon Dioxide 28 Anion Gap 5.0 BUN 36 H Creatinine 2.22 H Est Cr Clr Drug Dosing 36.7 Est GFR ( Amer) 26.7 Est GFR (Non-Af Amer) 23.0 BUN/Creatinine Ratio 16.0 Glucose 81 POC Glucose 83 Calcium 8.7 Phosphorus Magnesium 1.9 Iron 66 TIBC 239 L Transferrin 177 L Ferritin 373.6 Total Bilirubin Direct Bilirubin AST ALT Alkaline Phosphatase Troponin I Total Protein Albumin Globulin Albumin/Globulin Ratio Lipase Vitamin B12 Folate TSH Urine Color Urine Appearance Urine pH Ur Specific [place] Urine Protein Urine Glucose (UA) Urine Ketones Urine Blood Urine Nitrite Urine Bilirubin Urine Urobilinogen Ur Leukocyte Esterase COVID-19 Eval Order SARS-CoV-2 (PCR) 12/02/20 11:17 WBC RBC Hgb Hct MCV MCH MCHC RDW Std Deviation RDW Coeff of Chantal Plt Count MPV Immature Gran % (Auto) Neut % (Auto) Lymph % (Auto) Kerr % (Auto) Eos % (Auto) Baso % (Auto) Reticulocyte % (Auto) Neut # (Auto) Lymph # (Auto) Kerr # (Auto) Eos # (Auto) Baso # (Auto) Reticulocyte # Immature Gran # (Auto) Immature Retic Fraction Retic Hgb Content Sodium Potassium Chloride Carbon Dioxide Anion Gap BUN Creatinine Est Cr Clr Drug Dosing Est GFR ( Amer) Est GFR (Non-Af Amer) BUN/Creatinine Ratio Glucose POC Glucose 135 H Calcium Phosphorus Magnesium Iron TIBC Transferrin Ferritin Total Bilirubin Direct Bilirubin AST ALT Alkaline Phosphatase Troponin I Total Protein Albumin Globulin Albumin/Globulin Ratio Lipase Vitamin B12 Folate TSH Urine Color Urine Appearance Urine pH Ur Specific [place] Urine Protein Urine Glucose (UA) Urine Ketones Urine Blood Urine Nitrite Urine Bilirubin Urine Urobilinogen Ur Leukocyte Esterase COVID-19 Eval Order SARS-CoV-2 (PCR) Diagnostic Findings 09/02/2020: Normal LV systolic function with ejection fraction 55-60%. Mild LVH. PG Care Time/CCT Total # of Minutes Spent Total Time Spent with Patient: Total time spent is greater than 50% in coordination of care (as documented) at patient's floor/unit and/or counseling patient: Coding Level of Care Code [id number] Inpt Consult Level 4 Diagnoses Syncope R55 Syncope type: unspecified Dizziness R42 Left ventricular hypertrophy I51.7 Atrial fibrillation and flutter I48.91; I48.92 (1) Syncope Syncope type: unspecified Qualified Code(s): R55 - Syncope and collapse
[2020-12-02] MEDS: METOPROLOL TARTRATE 25 MG TAB PO SCH ×2 (15:42→21:56)
[2020-12-02] MEDS ORDERED: RIVAROXABAN 15 MG TAB PO SCH (16:30)
--- NOTE | 2020-12-02 16:56 | Electrocardiogram Report ---
Test Reason : Blood Pressure : / mmHG Vent. Rate : 089 BPM Atrial Rate : 089 BPM P-R Int : 000 ms QRS Dur : 104 ms QT Int : 378 ms P-R-T Axes : 000 -42 073 degrees QTc Int : 459 ms Lieky atrial flutter Left axis deviation Low voltage QRS Inferior infarct (cited on or before 08-NOV-2020) Anterolateral infarct (cited on or before 08-NOV-2020) Abnormal ECG When compared with ECG of 08-NOV-2020 19:39, Nonspecific T wave abnormality no longer evident in Inferior leads Nonspecific T wave abnormality, improved in Anterior leads Confirmed by Randy Parisi ([id number]) on 12/02/2020 4:56:18 PM Referred By: REFERRED SELF Confirmed By:Dimitris Pariis
--- NOTE | 2020-12-02 17:02 | Electrocardiogram Report ---
Test Reason : Blood Pressure : / mmHG Vent. Rate : 090 BPM Atrial Rate : 357 BPM P-R Int : 000 ms QRS Dur : 108 ms QT Int : 370 ms P-R-T Axes : 000 -40 119 degrees QTc Int : 452 ms Atrial fibrillation Left axis deviation Low voltage QRS Inferior infarct (cited on or before 08-NOV-2020) Cannot rule out Anterior infarct (cited on or before 08-NOV-2020) Abnormal ECG When compared with ECG of 01-DEC-2020 15:44, (unconfirmed) Inverted T waves have replaced nonspecific T wave abnormality in Lateral leads Confirmed by Randy Parisi ([id number]) on 12/02/2020 5:01:41 PM Referred By: REFERRED SELF Confirmed By:Dimitris Parisi
[2020-12-02] MEDS ORDERED: INSULIN GLARGINE SOLOSTAR 100 UNITS/ML 3 ML PEN SC SCH (21:00)
[2020-12-02] MEDS ORDERED: ONDANSETRON INJ 2 MG/ML 2 ML VIAL IV ONE (21:26)
[2020-12-02] MEDS ORDERED: ONDANSETRON INJ 2 MG/ML 2 ML VIAL ONE (21:29)
[2020-12-02] MEDS: ATORVASTATIN 40 MG TAB PO SCH (21:56)
[2020-12-02] MEDS: traZODone HCL 100 MG TAB PO SCH (21:58)
[2020-12-02] MEDS: PANTOprazole 40 MG TAB PO SCH (21:59)
[2020-12-03] MEDS: METOPROLOL TARTRATE 25 MG TAB PO SCH ×4 (04:52→20:02)
[2020-12-03] MEDS: LEVOTHYROXINE SODIUM 50 MCG TABLET PO SCH (04:54)
[2020-12-03 06:14] LABS: Estimated Average Glucose 140 mg/dl; Hemoglobin A1C 6.5 % (4.5-5.6)
--- NOTE | 2020-12-03 07:03 | Hospitalist Progress Note ---
Date of Service December 03, 2020 Assessment & Plan (1) Syncope: Jerri Arellano is a 60yo female with a PMH including T2DM, recently-diagnosed atrial fibrillation (on Xarelto), CKD4 with AV fistula (placed 08/2020), morbid obesity s/p bariatric surgery (08/2020), HFpEF, HTN, HLD, and TRUMAN (on CPAP) who presents with a 2-3 month history of progressively worsening weakness/dizziness with exertion and a 2-week history of syncope with exertion. Presyncope/syncope Patient's episode today captured on rhythm strip; discussed with Dr. Parisi of cardiology - appears to be atrial flutter, and patient's episodes of exertion seem to cause her rate to vitually double Per cardiology, will restart metoprolol, observe over the weekend, and likely cardiovert on Saturday if patient doesn't spontaneously convert to NSR Continue current medication regimen including flecainide, xarelto Fall precautions IDDM2 Holding home DM2 regimen Glycemic consult placed ISS Anemia Iron wnl, transferrin low, TIBC low, ferritin high normal Pattern suggestive of anemia of chronic disease; continue to treat underlying conditions History of bariatric surgery (08/2020) Glycemic consult and nutrition consult placed Bariatric post-op (1+ mo) diet (+ heart healthy, DM2 diet) B12, folate levels in normal range HFpEF No overt symptoms of CHF exacerbation on admission, CXR without signs of fluid overload EF (08/2020) 55-60% with mild concentric LVH Hold home Bumex given orthostasis Hypomagnesemia 1.6 on admission, repleted in ED, resolved Mag level qod COPD Home O2 regimen: 2L at night or with exertion, none at daytime O2 via NC as-needed to maintain sat>89% HTN Normotensive/slightly elevated on admission Continue home meds HLD Continue home atorvastatin, fenofibrate Anxiety, depression Continue home buspirone, trazodone, fluvoxamine, lorazepam Hypothyroidism TSH on admission wnl Continue home levothyroxine Dispo planning CM consulted (patient's home is without safety/accessibility equipment e.g. shower seat) FEN: dialysis renal, heart healthy, bariatric post-op (1+ month) diet Code status: full code DVT ppx: xarelto Isolation: none Consults: cardiology, nutrition, glycemic consult Dispo: med/surg tele (2) Anxiety and depression: (3) Atrial fibrillation, new onset: (4) Chronic kidney disease, stage 4 (severe): (5) COPD (chronic obstructive pulmonary disease): (6) Diabetic nephropathy: (7) HTN (hypertension): (8) Hyperlipemia: (9) Hypothyroidism: (10) Morbid obesity: (11) Nocturnal hypoxia: (12) Obesity hypoventilation syndrome: (13) Claustrophobia: (14) Type 2 diabetes mellitus: (15) Status post gastric bypass for obesity: Admission and Anticipated Discharge Date Admission Date: December 01, 2020 Supervising Physician Co-Signing Physician Notes Patient seen and examined with PGY-1, Dr. Batres. Agree with history, exam findings, assessment and plan of care as outlined. In brief, Jerri is a 60 y/o female with history of gastric bypass in late August, at [facility], relatively new onset atrial fibrillation, and recently S/P A-V fistula for progressive renal disease presents to the ED with recurrent episodes of presyncope. She was recently started on flecainide; the episodes have all been since her gastric bypass but before recent addition of flecainide. She also has a history of IDDM; is managed fairly closely with nephrology and has been adjusting her insulin regimen (Lantus and sliding scale) since her gastric bypass. She has been feeling well this morning. She did have some dizziness when she went to stand to use the bedside commode. Denies any palpitations or nausea. VS and nursing notes reviewed. Well appearing, sitting in the bedside chair. Review of monitoring specialist does show atrial fibrillation. Lungs are clear to auscultation. Trace edema. Labs reviewed. 1. Presyncope/episode, recurrent. Secondary to afib/flutter with RVR with some contribution from orthostatic hypotension. Started metoprolol 12.5 mg every 6 hours. Continue flecainide. Stop diuretic. Possible cardioversion next week if she does not spontaneously convert to sinus over the weekend. Appreciate continued cardiology recommendations. 2. afib/flutter. See above. Continue anticoagulation with Xarelto. Can consider switching to Eliquis in the future. 3. DM. Insulin dependent. Appreciate glycemic consult recommendations and management. 4. HFpEF. Holding home Bumex as above. Monitor for signs of fluid overload. Other chronic conditions are stable and home medications are being continued. Dispo: Pending clinical improvement. Subjective Patient seen and evaluated at bedside this morning. No acute events overnight. Patient feels well today and is without symptoms. Patient is completely fine with staying in the hospital in order to try to solve her dizziness issues. No complaints today. Patient denies CP, SOB, abdominal pain, nausea, vomiting, lightheadedness, dizziness, back pain, weakness, confusion, dysuria, diarrhea, or other symptoms. Review of Systems Review of Systems: See HPI Physical Exam Physical Exam: Constitutional: well-appearing, comfortable, NAD CV: irregular rhythm, rate 80s, systolic 2/6 crescendo-decrescendo murmur appreciated Resp: CTABL GI: soft, nondistended, nontender, BS normoactive Neuro: AOx4, no focal neurological deficits appreciated, resting tremor of tongue Psych: cooperative, pleasant, appropriate rate/volume/quantity of speech Results & Data Results & Data ([facility]) Vital Signs (Past 12 Hours) Vital Signs Temp Pulse Resp BP Pulse Ox 12/03/20 04:10 36.7 C 82 17 158/92 H 100 12/02/20 22:40 37.1 C 84 18 141/78 H 100 12/02/20 19:23 37.0 C 82 20 147/98 H 96 Resident Activity Tracking Resident Involvement: Resident Care Provided Care Provided: Adult Hospital Medicine (1) Type 2 diabetes mellitus Diabetes mellitus complication status: with other specified complication Diabetes mellitus alf insulin use: with termite treater helper use Qualified Code(s): E11.69 - Type 2 diabetes mellitus with other specified complication; Z79.4 - lobsterman (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
[2020-12-03] MEDS: INSULIN ASPART 100 UNITS/ML 3 ML PEN SC SCH ×4 (08:40→20:07)
[2020-12-03] MEDS: FENOFIBRATE NANOCRYSTALLIZED 145 MG TABLET PO SCH (08:43)
[2020-12-03] MEDS: fluvoxaMINE MALEATE 50 MG TAB PO SCH ×2 (08:43→20:05)
[2020-12-03] MEDS: FOLIC ACID 1 MG TAB PO SCH (08:44)
[2020-12-03] MEDS: BUMETANIDE 1 MG TAB PO SCH (08:44)
[2020-12-03] MEDS: RIVAROXABAN 15 MG TAB PO SCH (08:44)
[2020-12-03] MEDS: busPIRone 15 MG TAB PO SCH ×2 (08:44→19:58)
[2020-12-03] MEDS: FLECAINIDE ACETATE 100 MG TABLET PO SCH ×2 (08:45→20:00)
--- NOTE | 2020-12-03 09:35 | Cardiology Progress Note ---
Date of Service December 03, 2020 Assessment & Plan (1) Syncope: No recurrence. The precipitating event appear to involve high vagal tone based on her symptoms. This may have been exacerbated by what appears to be an element of orthostatic hypotension as well. (2) Dizziness: Thought to be related to higher heart rates and poorly controlled ventricular rates in the setting of an atrial flutter. However, given the abnormalities noted during her vitals this morning, she likely has an element of orthostatic hypotension contributing as well. With this precipitates her tachycardia or whether they both play a role is unclear. I would discontinue h er diuretic. I would consider volume administration and liberalization of sodium intake. I think we can continue her metoprolol tartrate at the current dose and monitor her heart rates and blood pressure over the next day or 2. (3) Left ventricular hypertrophy: Seen previously on echocardiogram. Likely related to longstanding hypertension. (4) Atrial fibrillation and flutter: She appears to be in atrial flutter. Much of her dizziness was attributed to high ventricular rates associated with this arrhythmia and activity. Given her vital signs this morning I suspect orthostasis was also playing a role in her higher heart rates. Overall I think she does benefit from being on metoprolol in addition to flecainide. Provided her blood pressures are not compromised I would continue the beta-blockade. If it appears that she has refractory orthostatic symptoms and this will need to be discontinued. At some point the patient will require cardioversion if she does not spontaneously convert to sinus rhythm. Alternatively, flecainide can be discontinued and she can be maintained on beta-blockade exclusively if her rates and blood pressure are adequate. Admission and Anticipated Discharge Date Admission Date: December 01, 2020 Subjective This morning the patient claimed he feeling quite well. She denies any breathing difficulty. She was able to transfer from the bed to the bedside commode. She did not have significant dizziness lightheadedness associated with that movement. She has not done more activity. Review of Systems Review of Systems: Per HPI Physical Exam Physical Exam: She is alert and oriented x3. Mood affect appear normal. She answered all questions appropriately. HEENT: Sclerae are anicteric. Pupils are equal and reactive to light and accommodation. Extraocular movements were intact. Neuro: Cranial nerves intact Lungs: Normal respiratory effort Cardiac: The rhythm was regular Extremities: Patient has bilateral radial pulses that are equal in intensity. There is no evidence cyanosis or clubbing. There was no evidence of significant peripheral edema bilaterally. Skin: There are no rashes noted on examination today. Results & Data ([facility]) Vital Signs (Past 12 Hours) Vital Signs Temp Pulse Resp BP Pulse Ox 12/03/20 07:53 36.7 C 83 19 134/86 96 12/03/20 04:10 36.7 C 82 17 158/92 H 100 12/02/20 22:40 37.1 C 84 18 141/78 H 100 Laboratory Results Abnormal Lab Results 12/02/20 12/02/20 12/02/20 06:54 11:17 16:10 POC Glucose 135 H 122 H Estimat Average Glucose 140 Hemoglobin A1c 6.5 H 12/02/20 12/03/20 19:56 07:23 POC Glucose 122 H 89 Estimat Average Glucose Hemoglobin A1c Diagnostic Findings 09/02/2020: Normal LV systolic function with ejection fraction 55-60%. Mild LVH. PG Care Time/CCT Total # of Minutes Spent Total Time Spent with Patient: Total time spent is greater than 50% in coordination of care (as documented) at patient's floor/unit and/or counseling patient: Coding Level of Care Code 49933 Subseq Hosp Care Lvl 3 Diagnoses Syncope R55 Syncope type: unspecified Dizziness R42 Left ventricular hypertrophy I51.7 Atrial fibrillation and flutter I48.91; I48.92 (1) Syncope Syncope type: unspecified Qualified Code(s): R55 - Syncope and collapse
--- NOTE | 2020-12-03 12:17 | Pharmacy Report ---
Pharmacy Glycemic Short Note 2 - Date of Service December 03, 2020 - Glycemic Short BSG Results (Last 24 hours): 12/02/20 12/02/20 12/03/20 16:10 19:56 07:23 POC Glucose 122 H 122 H 89 12/03/20 11:30 POC Glucose 96 OUTPATIENT ANTIDIABETIC REGIMEN: * Lantus 12 units Q HS * Humalog per sliding scale, typically uses a CR of ~5 or 6 * A1c = 6.5% 08/24/20 * A1c = 6.5% on 12/02/20 ASSESSMENT: 12/03 * Pt has received 12 units of insulin over the past 24hrs * 10 units of basal with Lantus * 2 units of bolus with NovoLog * BSGs [phone] mg/dl * Most BSGs are below goal range for inpatient targets * PO intake is very minimal per CHO counts * Will decrease basal insulin by 50% and continue to titrate based on BSG trends. 12/02 * Type 2 diabetic admitted to PCU for syncope and weakness - good glycemic control per last A1c * Patient has h/o bariatric surgery 08/2020 which has led to dramatic changes insulin needs * Fasting BSG 83 this AM with 12 units Lantus on board - will reduce dose * Novolog CF and CR are set in doses similar to what patient reports for meal coverage at home - no change at this time PLAN FOR INPATIENT GLYCEMIC CONTROL: * Basal insulin * Decrease Lantus 5 units SQ HS * Bolus insulin: loosen since pt may have too much basal insulin on board today * NovoLog per scale ACHS or Q6hrs while NPO * Goal Range: Low 110 mg/dL - High 140 mg/dL * Correction Factor: 25 mg/dL/unit * Nutritional / Prandial insulin per carb ratio of 1 unit per 7 grams CHO consumed PLAN FOR DISCHARGE: * If not experiencing frequent hypoglycemic episodes, patient may resume Home doses of Lantus and Humalog. She does follow with Dr Olmstead's office.
[2020-12-03] MEDS: ATORVASTATIN 40 MG TAB PO SCH (19:57)
[2020-12-03] MEDS: traZODone HCL 100 MG TAB PO SCH (20:06)
[2020-12-03] MEDS: PANTOprazole 40 MG TAB PO SCH (20:07)
[2020-12-03] MEDS: INSULIN GLARGINE SOLOSTAR 100 UNITS/ML 3 ML PEN SC SCH (20:22)
[2020-12-03] MEDS ORDERED: INSULIN GLARGINE SOLOSTAR 100 UNITS/ML 3 ML PEN SC SCH (21:00)
[2020-12-04] MEDS: LEVOTHYROXINE SODIUM 50 MCG TABLET PO SCH (04:52)
[2020-12-04] MEDS: METOPROLOL TARTRATE 25 MG TAB PO SCH ×3 (04:52→13:22)
[2020-12-04] MEDS: INSULIN ASPART 100 UNITS/ML 3 ML PEN SC SCH ×4 (08:09→20:15)
[2020-12-04] MEDS: RIVAROXABAN 15 MG TAB PO SCH (08:10)
[2020-12-04] MEDS: fluvoxaMINE MALEATE 50 MG TAB PO SCH ×2 (08:10→20:08)
[2020-12-04] MEDS: busPIRone 15 MG TAB PO SCH ×2 (08:11→20:06)
[2020-12-04] MEDS: FOLIC ACID 1 MG TAB PO SCH (08:13)
[2020-12-04] MEDS: FLECAINIDE ACETATE 100 MG TABLET PO SCH ×2 (08:13→20:18)
[2020-12-04] MEDS: FENOFIBRATE NANOCRYSTALLIZED 145 MG TABLET PO SCH (08:13)
--- NOTE | 2020-12-04 08:20 | Hospitalist Progress Note ---
Date of Service December 04, 2020 Assessment & Plan (1) Syncope: Jerri Arellano is a 60yo female with a PMH including T2DM, recently-diagnosed atrial fibrillation (on Xarelto), CKD4 with AV fistula (placed 08/2020), morbid obesity s/p bariatric surgery (08/2020), HFpEF, HTN, HLD, and TRUMAN (on CPAP) who presents with a 2-3 month history of progressively worsening weakness/dizziness with exertion and a 2-week history of syncope with exertion. Presyncope/syncope Patient's episode today captured on rhythm strip; discussed with Dr. Parisi of cardiology - appears to be atrial flutter, and patient's episodes of exertion seem to cause her rate to vitually double Continue current medication regimen including flecainide, xarelto Plan for cardioversion on 12/05 Will obtain EKG today Fall precautions IDDM2 Holding home DM2 regimen Glycemic consult placed ISS Anemia Iron wnl, transferrin low, TIBC low, ferritin high normal Pattern suggestive of anemia of chronic disease; continue to treat underlying conditions History of bariatric surgery (08/2020) Glycemic consult and nutrition consult placed Bariatric post-op (1+ mo) diet (+ heart healthy, DM2 diet) B12, folate wnl HFpEF No overt symptoms of CHF exacerbation on admission, CXR without signs of fluid overload EF (08/2020) 55-60% with mild concentric LVH Continue bumetanide Hypomagnesemia 1.6 on admission, repleted in ED, resolved Mag level qod COPD Home O2 regimen: 2L at night or with exertion, none at daytime O2 via NC as-needed to maintain sat>89% HTN Normotensive/slightly elevated on admission Continue home meds HLD Continue home atorvastatin, fenofibrate Anxiety, depression Continue home buspirone, trazodone, fluvoxamine, lorazepam Hypothyroidism TSH on admission wnl Continue home levothyroxine Dispo planning CM consulted (patient's home is without safety/accessibility equipment e.g. shower seat) FEN: dialysis renal, heart healthy, bariatric post-op (1+ month) diet Code status: full code DVT ppx: xarelto Isolation: none Consults: cardiology, nutrition, glycemic consult Dispo: med/surg tele (2) Anxiety and depression: (3) Atrial fibrillation, new onset: (4) Chronic kidney disease, stage 4 (severe): (5) COPD (chronic obstructive pulmonary disease): (6) Diabetic nephropathy: (7) HTN (hypertension): (8) Hyperlipemia: (9) Hypothyroidism: (10) Morbid obesity: (11) Nocturnal hypoxia: (12) Obesity hypoventilation syndrome: (13) Claustrophobia: (14) Type 2 diabetes mellitus: (15) Status post gastric bypass for obesity: Admission and Anticipated Discharge Date Admission Date: December 01, 2020 Supervising Physician Co-Signing Physician Notes Patient seen and examined with PGY-1, Dr. Batres. Agree with history, exam findings, assessment and plan of care as outlined. In brief, Jerri is a 60 y/o female with history of gastric bypass in late August, at [facility], relatively new onset atrial fibrillation, and recently S/P A-V fistula for progressive renal disease presents to the ED with recurrent episodes of presyncope. She was recently started on flecainide; the episodes have all been since her gastric bypass but before recent addition of flecainide. She also has a history of IDDM; is managed fairly closely with nephrology and h as been adjusting her insulin regimen (Lantus and sliding scale) since her gastric bypass. She has been feeling well this morning. Denies any palpitations or nausea. VS and nursing notes reviewed. Well appearing, sitting in the bedside chair. Review of quality assurance monitor final does show atrial fibrillation, but not RVR. Lungs are clear to auscultation. Trace edema. Labs reviewed. 1. Presyncope/episode, recurrent. Secondary to afib/flutter with RVR with some contribution from orthostatic hypotension. Started metoprolol 12.5 mg every 6 hours. Continue flecainide. Stop diuretic. Plan for cardioversion on Saturday. Appreciate continued cardiology recommendations. 2. afib/flutter. See above. Continue anticoagulation with Xarelto. Can consider switching to Eliquis in the future. 3. DM. Insulin dependent. Appreciate glycemic consult recommendations and management. 4. HFpEF. Holding home Bumex as above. Monitor for signs of fluid overload. Other chronic conditions are stable and home medications are being continued. Dispo: Pending clinical improvement. Subjective Patient seen and evaluated at bedside this morning. No acute events overnight. Patient feels well today and has no complaints. Plan is for cardioversion tomorrow. Patient's questions asked and answered. Patient hasn't gotten out of bed today and hasn't experienced symptoms. Patient has gotten up to sit at the edge of the bed however. Patient denies CP, SOB, abdominal pain, nausea, vomiting, lightheadedness, dizziness, back pain, weakness, confusion, dysuria, diarrhea, or other symptoms. Review of Systems Review of Systems: See HPI Physical Exam Physical Exam: Constitutional: well-appearing, no acute distress CV: unclear if rhythm regular or slightly irregular, systolic murmur appreciated Resp: CTABL, no wheezes/rales/rhonchi appreciated, no increased work of breathing Neuro: AOx4, no focal neurological deficits appreciated Results & Data Results & Data ([facility]) Vital Signs (Past 12 Hours) Vital Signs Temp Pulse Resp BP Pulse Ox 12/04/20 06:41 36.6 C 68 19 98/65 L 98 12/04/20 03:32 36.5 C 66 16 107/61 94 12/03/20 23:15 36.6 C 78 17 108/70 96 Resident Activity Tracking Resident Involvement: Resident Care Provided Care Provided: Adult Hospital Medicine (1) Type 2 diabetes mellitus Diabetes mellitus complication status: with other specified complication Diab etes mellitus retirement insulin use: with retirement use Qualified Code(s): E11.69 - Type 2 diabetes mellitus with other specified complication; Z79.4 - custodial (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
--- NOTE | 2020-12-04 10:07 | Cardiology Progress Note ---
Date of Service December 04, 2020 Assessment & Plan (1) Syncope: No recurrence. The precipitating event appear to involve high vagal tone based on her symptoms. This may have been exacerbated by what appears to be an element of orthostatic hypotension as well. (2) Dizziness: Improved. Likely related to both orthostatic hypotension and higher heart rates. She is doing quite well on metoprolol. Will continue to monitor as she becomes more active (3) Left ventricular hypertrophy: Seen previously on echocardiogram. Likely related to longstanding hypertension. (4) Atrial fibrillation and flutter: She continues to be in with a appears to be in atrial flutter. Rate control is much improved. Symptoms are much improved. We did discuss the option of simply continuing with rate control. This would obviate the need for flecainide. However, it would seem reasonable to convert her back to a sinus rhythm and maintain her on flecainide. We will see if there is an opportunity for cardioversion tomorrow. Continue Xarelto. Consideration should be given to switching to full dose Eliquis. Admission and Anticipated Discharge Date Admission Date: December 04, 2020 Subjective This morning the patient was feeling quite well. She has been ambulatory around her and briefly in the hallway without recurrent symptoms of dizziness or presyncope. No breathing difficulty. No chest pain. No sense of palpitation. Review of Systems Review of Systems: Per HPI Physical Exam Physical Exam: She is alert and oriented x3. Mood affect appear normal. She answered all questions appropriately. HEENT: Sclerae are anicteric. Pupils are equal and reactive to light and accommodation. Extraocular movements were intact. Neuro: Cranial nerves intact Lungs: Normal respiratory effort. Lungs clear. Cardiac: The rhythm was regular Extremities: Patient has bilateral radial pulses that are equal in intensity. There is no evidence cyanosis or clubbing. There was no evidence of significant peripheral edema bilaterally. Skin: There are no rashes noted on examination today. Results & Data ([facility]) Vital Signs (Past 12 Hours) Vital Signs Temp Pulse Resp BP Pulse Ox 12/04/20 06:41 36.6 C 68 19 98/65 L 98 12/04/20 03:32 36.5 C 66 16 107/61 94 12/03/20 23:15 36.6 C 78 17 108/70 96 Laboratory Results Abnormal Lab Results 12/03/20 12/03/20 12/03/20 11:30 16:22 20:19 POC Glucose 96 129 H 153 H 12/04/20 07:37 POC Glucose 94 Diagnostic Findings 09/02/2020: Normal LV systolic function with ejection fraction 55-60%. Mild LVH. PG Care Time/CCT Total # of Minutes Spent Total Time Spent with Patient: Total time spent is greater than 50% in coordination of care (as documented) at patient's floor/unit and/or counseling patient: Coding Level of Care Code 08819 Subseq Hosp Care Lvl 2 Diagnoses Syncope R55 Syncope type: unspecified Dizziness R42 Left ventricular hypertrophy I51.7 Atrial fibrillation and flutter I48.91; I48.92 (1) Syncope Syncope type: unspecified Qualified Code(s): R55 - Syncope and collapse
[2020-12-04] MEDS: ATORVASTATIN 40 MG TAB PO SCH (20:05)
[2020-12-04] MEDS: PANTOprazole 40 MG TAB PO SCH (20:10)
[2020-12-04] MEDS: traZODone HCL 100 MG TAB PO SCH (20:10)
[2020-12-04] MEDS: INSULIN GLARGINE SOLOSTAR 100 UNITS/ML 3 ML PEN SC SCH (20:11)
[2020-12-05] MEDS: LEVOTHYROXINE SODIUM 50 MCG TABLET PO SCH (05:59)
[2020-12-05 06:13] LABS: BUN Creatinine Ratio 16.7 (10-20); Calcium 8.4 mg/dl (8.5-10.1); Creatinine Clr Calc Pharmacy 31.2 ml/min; Potassium 3.7 mmol/L (3.5-5.1)
--- NOTE | 2020-12-05 07:23 | Pharmacy Report ---
Pharmacy Glycemic Sign Off Nt - Date of Service December 05, 2020 - Assessment & Plan ASSESSMENT: * No changes to regimen since 12/03 * BSG's have ranged 89-153 mg/dL over the last 48 hours * Stressors stable * Pharmacy signing off of glycemic management at this time - OK per Dr. Mendez PLAN FOR INPATIENT GLYCEMIC CONTROL: No changes needed to current regimen. * Continue basal insulin with Lantus 5 units SQ HS * Continue NovoLog per scale ACHS/Q6hrs while NPO * Goal range = 110-140 mg/dl * CF = 25 mg/dl/unit * CR = 1 unit for ever 7 g CHO consumed * Pharmacy is signing off of glycemic consult and will no longer be making adjustments to inpatient regimen. Please feel free to re-consult if needed. Thank you.
[2020-12-05] MEDS ORDERED: ATROPINE SULFATE 0.1 MG/ML 10ML SYR IV PRN (07:27)
[2020-12-05] MEDS ORDERED: ePHEDrine sulfate 50 MG/ML AMP IV PRN (07:27)
--- NOTE | 2020-12-05 07:27 | Anesthesiology Consultation ---
Date of Service December 05, 2020 Assessment & Plan ASA ASA3 Proposed Anesthesia Anesthesia Type: MAC Risk / Benefits Reviewed With: PT / POA / Parent / Guardian, Accepts Plan and Informed Consent Obtained History Surgery Operation Date: 12/05/20 07:30 Proposed Procedures p Cardioversion w/Anesthesia Sedation - Claude Parisi MD Height/Weight Height: 5 ft 7 in Weight: 128.1 kg Allergies Allergy/AdvReac Type Severity Reaction Status Date / Time promethazine Allergy Unknown BROKEN Verified 12/01/20 16:57 CAPILLARIES FACE Iodinated Contrast Media AdvReac Unknown Unknown Verified 12/01/20 16:57 [Iodinated Contrast- Oral and IV Dye] Medications Home Medications Medication Instructions Recorded Confirmed Last Taken zinc gluconate 100 mg PO HS 07/23/18 12/01/20 11/30/20 lorazepam 1 mg tablet 1 mg PO BID PRN 03/24/19 12/01/20 Unknown OneTouch Ultra Blue Test Strip #400 ea NS 01/26/20 11/21/20 Unknown atorvastatin 80 mg tablet 80 mg PO HS #90 tab 01/26/20 12/01/20 11/30/20 lancets #400 ea 02/17/20 11/21/20 Unknown trazodone 50 mg tablet 100 mg PO HS tab MDD 100 04/26/20 12/01/20 11/30/20 fluvoxamine 100 mg 150 mg PO BID cap 07/06/20 12/01/20 12/01/20 08:00 capsule,extended release 24 hr flash glucose sensor #1 ea 07/19/20 10/17/20 Unknown levothyroxine 50 mcg PO DAILYBB 08/10/20 12/01/20 12/01/20 insulin glargine 100 unit/mL 12 unit SQ HS ml 10/17/20 12/01/20 11/30/20 subcutaneous solution fenofibrate 160 mg tablet 160 mg PO DAILY #90 tab 11/04/20 12/01/20 12/01/20 folic acid 1 mg tablet 1 mg PO DAILY #90 tab 11/04/20 12/01/20 12/01/20 cholecalciferol (vitamin D3) 125 125 mcg PO DAILY 11/21/20 12/01/20 12/01/20 mcg (5,000 unit) capsule insulin lispro 100 unit/mL 0 unit SQ TIDM vial 11/21/20 12/01/20 12/01/20 subcutaneous solution insulin syringe-needle U-100 0.5 ea 11/21/20 Unknown mL 31 gauge x 10/30" flecainide 100 mg tablet 100 mg PO Q12H #60 tab 11/25/20 12/01/20 12/01/20 08:00 buspirone 15 mg tablet 15 mg PO BID tab 11/28/20 12/01/20 12/01/20 08:00 amoxicillin 2,000 mg PO ONCE PRN 12/01/20 12/01/20 Unknown bumetanide 1 mg PO DAILY 12/01/20 12/01/20 12/01/20 calcium-vitamin D3-vitamin K 1 tab PO HS 12/01/20 12/01/20 11/30/20 [Viactiv] pantoprazole 40 mg PO HS 12/01/20 12/01/20 11/30/20 pediatric multivitamin no.76 1 tab PO HS 12/01/20 12/01/20 11/30/20 [Flintstones Complete] polysaccharide iron complex 150 mg PO HS 12/01/20 12/01/20 11/30/20 [Ferrex 150] rivaroxaban [Xarelto] 15 mg PO QDD 12/01/20 12/01/20 11/30/20 Active Medications Generic Name Dose Route Start Last Admin Trade Name Freq PRN Reason Stop Dose Admin Al Hydrox/Mg Hydrox/Simethicone 15 ml 12/01/20 19:09 12/03/20 04:54 Aluminum/Magnesium Susp 30 Ml Udc PO 12/31/20 19:08 15 ml Q4H PRN Administration Dyspepsia Atorvastatin Calcium 80 mg 12/01/20 21:00 12/04/20 20:05 Atorvastatin 40 Mg Tab PO 12/31/20 20:59 80 mg HS JOHNATHON Administration Bumetanide 1 mg 12/02/20 09:00 12/03/20 08:44 Bumetanide 1 Mg Tab PO 01/01/21 08:59 1 mg DAILY JOHNATHON Administration Buspirone HCl 15 mg 12/01/20 21:00 12/04/20 20:06 Buspirone 15 Mg Tab PO 12/31/20 20:59 15 mg BID JOHNATHON Administration Fenofibrate 145 mg 12/02/20 12:00 12/04/20 08:13 Fenofibrate Nanocrystallized 145 Mg Tablet PO 01/01/21 11:59 145 mg DAILY JOHNATHON Administration Flecainide Acetate 100 mg 12/01/20 21:00 12/04/20 20:18 Flecainide Acetate 100 Mg Tablet PO 12/31/20 20:59 100 mg Q12H JOHNATHON Administration Fluvoxamine Maleate 150 mg 12/01/20 21:00 12/04/20 20:08 Fluvoxamine Maleate 50 Mg Tab PO 12/31/20 20:59 150 mg BID JOHNATHON Administration Folic Acid 1 mg 12/02/20 09:00 12/04/20 08:13 Folic Acid 1 Mg Tab PO 01/01/21 08:59 1 mg DAILY JOHNATHON Administration Insulin Aspart 0 units 12/01/20 21:00 12/04/20 20:15 Insulin Aspart 100 Units/Ml 3 Ml Pen SC 12/31/20 20:59 1 units ACHS JOHNATHON Administration Protocol Insulin Glargine 5 units 12/03/20 21:00 12/04/20 20:11 Insulin Glargine Solostar 100 Units/Ml 3 Ml Pen SC 01/02/21 20:59 5 units HS JOHNATHON Administration Protocol Levothyroxine Sodium 50 mcg 12/02/20 06:30 12/05/20 05:59 Levothyroxine Sodium 50 Mcg Tablet PO 01/01/21 06:29 50 mcg DAILYBB JOHNATHON Administration Metoprolol Tartrate 12.5 mg 12/02/20 14:30 12/04/20 13:22 Metoprolol Tartrate 25 Mg Tab PO 01/01/21 14:29 12.5 mg Q6H JOHNATHON Administration Pantoprazole Sodium 40 mg 12/01/20 21:00 12/04/20 20:10 Pantoprazole 40 Mg Tab PO 12/31/20 20:59 40 mg HS JOHNATHON Administration Rivaroxaban 15 mg 12/02/20 09:00 12/04/20 08:10 Rivaroxaban 15 Mg Tab PO 01/01/21 08:59 15 mg DAILY JOHNATHON Administration Trazodone HCl 100 mg 12/01/20 21:00 12/04/20 20:10 Trazodone Hcl 100 Mg Tab PO 12/31/20 20:59 100 mg HS JOHNATHON Administration Past Medical History Medical History Acute kidney injury Acute renal failure (05/23/14) 2013. Kidneys recovered to around CKD III, then function worsened around 04/2020. Anemia due to chronic kidney disease Anxiety and depression Arthralgia of multiple sites Avascular necrosis of head of humerus Cardiac murmur Mild TR noted on 2019 echo. Chronic kidney disease, stage 4 (severe) F/U [facility]- nephrology Chronic low back pain Chronic rhinitis Chronic sinusitis Claustrophobia Diabetes Diabetic nephropathy Diabetic peripheral neuropathy Diabetic retinopathy, nonproliferative Diastolic congestive heart failure Euvolemic on exam at [facility] 09/02/20. 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 Per [facility] pulm 12/2019, "fairly stable from a pulmonary perspective. She is short of breath with any exertion, however a large part of this is likely related to obesity. Pulmonary functions done 1 year ago showed only a mild restrictive pattern. Diffusion was slightly decreased to 66%. One year ago she did have a normal arterial blood gas with no evidence of CO2 retention." Using PRN 3L, mostly using with exertion, not using every day. Morbid obesity Nasal septal deviation Nocturnal hypoxia Nontoxic multinodular goiter TRUMAN (obstructive sleep apnea) PRESCRIBED BIPAP-CAN'T TOLERATE-CLAUSTROPHOBIC Vitamin D deficiency Exercise / Class Metabolic Activity II 4-5 Yardwork/Stairs/Walk up hill Past Family History Family History Daughter Bipolar disorder Multiple allergies Aunt Breast cancer Mother Diabetes Heart disease Hypertension Hyperthyroidism Father Hearing loss Gastric cancer Myocardial infarction Grandfather Heart disease Family/Other Hypertension Lung cancer Osteoporosis Stroke Brother Hypertension Grandmother Ovarian cancer Sister Migraine Denies family history of Prostate cancer Colorectal cancer Past Surgical History Surgical History H/O section History of arthroscopy LEFT SHOULDER History of colonoscopy History of dermoid cyst excision History of esophagogastroduodenoscopy (EGD) History of mandibular surgery FULL ROM History of total shoulder replacement LEFT 07/19 2015 fracture Hx of cholecystectomy S/P shoulder surgery Left S/P tooth extraction Past Anesthesia History No Hx of Anesthesia Complications and No Family Hx of Anesthesia Complications History of PONV No Hx of PONV and No Hx of Motion Sickness Social History Smoking Status: Never smoker Hx Alcohol Use: No Alcohol type: beer alcohol intake frequency: holidays/special occasions only Hx Substance Use: No Review of Systems denies fever/cough/ colds/ chest pain/ SOB/ TRUMAN denies TRUMAN Physical Exam Vital Signs Last Vital Signs Temp 36.7 C 12/05/20 03:39 Pulse 78 12/05/20 03:39 Resp 18 12/05/20 03:39 BP 116/63 12/05/20 03:39 Pulse Ox 95 12/05/20 03:39 ENMT Mouth: no TMJ abnormality and no dentition abnormality Thyromental Distance: > or= 3.5 Finger Breadths Mallampati Class: II Neck neck extension not limited Respiratory normal respiratory effort; no respiratory distress Auscultation: lungs clear to auscultation bilaterally Cardiovascular Rate/Rhythm: regular rate and regular rhythm Neurologic moves all extremities Psychiatric Orientation: alert and oriented x 3 Testing Laboratory Results 12/01/20 Unknown 12/05/20 05:34 Hemoglobin A1c 6.5 % (4.5-5.6) H 12/02/20 06:54 Urine Color [place] 12/01/20 18:15 Urine Appearance Clear (Clear) 12/01/20 18:15 Urine pH 5.0 (4.5-7.5) 12/01/20 18:[address] 1.012 (1.000-1.030) 12/01/20 18:15 Urine Protein Negative (Negative) 12/01/20 18:15 Urine Glucose (UA) Negative (Negative) 12/01/20 18:15 Urine Ketones Negative (Negative) 12/01/20 18:15 Urine Nitrite Negative (Negative) 12/01/20 18:15 Ur Leukocyte Esterase Negative (Negative) 12/01/20 18:15 12/04/20 19:56 POC Glucose 142 H
--- NOTE | 2020-12-05 07:45 | Cardioversion ---
Date of Service December 05, 2020 PG Electrical Cardioversion Rp Electrical Cardioversion Report Procedure performed: Cardioversion Indication: The patient is a 60-year-old woman with a history of of persistent atrial flutter. Staff crop ranch hand: Randy Praisi MD Procedure in detail: The patient was informed of the risks benefits and alternatives to the intended procedure. She understood such which proceed. She was taken to the cardiac catheterization suite holding area. A general anesthetic was administered by the Anesthesiology Service. Once appropriately anesthetized, the patient was cardioverted using 200 joules delivered in a biphasic fashion. This returned the patient to sinus rhythm. The patient tolerated procedure well, there were no immediate complications. Patient was neurologically intact subsequent to the procedure. Impression: Successful cardioversion from atrial flutter to normal sinus rhythm Coding Level of Care Code Cardioversion, elective Additional Codes Electrical Cardioversion Report ([id number])
[2020-12-05] MEDS ORDERED: PROPOFOL IV EMULSION 10 MG/ML 20 ML VIAL IV ONE (08:16)
--- NOTE | 2020-12-05 08:20 | Anesthesiology Progress Note ---
Date of Service December 05, 2020 Anesthesia Post Procedure Vital Signs Vital Signs: Temp Pulse Pulse Resp BP Pulse Ox 12/05/20 08:14 36.8 C 58 L 19 110/61 100 12/05/20 08:00 55 L 16 112/69 98 12/05/20 07:45 57 L 16 118/56 L 98 12/05/20 07:21 37.2 C 83 16 132/83 95 12/05/20 03:39 36.7 C 78 18 116/63 95 12/04/20 23:18 36.8 C 80 20 93/54 L 95 12/04/20 20:01 36.7 C 81 18 109/68 99 12/04/20 15:26 36.6 C 74 16 122/71 96 12/04/20 10:35 36.5 C 76 18 119/62 98 12/04/20 09:00 85 Transfer of Care Handoff Completed per policy Notes Mental Status: alert / awake / arousable and participated in evaluation Patient Amnestic to Procedure: Yes Nausea / Vomiting: adequately controlled Pain: adequately controlled Airway Patency, RR, SpO2: stable & adequate BP & HR: stable & adequate Hydration State: stable & adequate Anesthetic Complications: no major complications apparent and Pt Satisfied with anesthetic care
[2020-12-05] MEDS: fluvoxaMINE MALEATE 50 MG TAB PO SCH ×2 (08:31→21:18)
[2020-12-05] MEDS: RIVAROXABAN 15 MG TAB PO SCH (08:31)
[2020-12-05] MEDS: FLECAINIDE ACETATE 100 MG TABLET PO SCH ×2 (08:31→21:19)
[2020-12-05] MEDS: FOLIC ACID 1 MG TAB PO SCH (08:32)
[2020-12-05] MEDS: FENOFIBRATE NANOCRYSTALLIZED 145 MG TABLET PO SCH (08:32)
[2020-12-05] MEDS: busPIRone 15 MG TAB PO SCH ×2 (09:07→21:18)
[2020-12-05] MEDS: INSULIN ASPART 100 UNITS/ML 3 ML PEN SC SCH ×4 (09:09→21:20)
[2020-12-05] MEDS: METOPROLOL SUCC 25MG EXT REL TAB PO SCH (10:55)
--- NOTE | 2020-12-05 11:12 | Cardiology Progress Note ---
Date of Service December 05, 2020 Assessment & Plan (1) Atrial fibrillation and flutter: -s/p successful electrical cardioversion this morning by Dr. Parisi. -hopefully, flecainide will keep her in sinus rhythm. -agree with low-dose metoprolol succinate. -could consider change to full dose Eliquis. -follow-up as scheduled in my office. (2) Syncope: -likely vasovagal in origin. -no recurrence. (3) Dizziness: -resolved. -likely secondary to orthostatic hypotension and a rapid ventricular response to her atrial fibrillation. (4) HTN (hypertension): -adequate control on current regimen. (5) Hyperlipemia: -continue atorvastatin and fenofibrate. Admission and Anticipated Discharge Date Admission Date: December 04, 2020 Subjective The patient is resting comfortably in bed without complaints of dizziness or palpitations. She tolerated her cardioversion without difficulty. Physical Exam Physical Exam: In general this is an obese white female in no acute distress. HEENT exam is negative. Neck is supple with full carotid upstrokes. There are no carotid bruits. No JVD. There is no thyromegaly. Cardiovascular exam reveals a regular rhythm with distant heart sounds. No obvious murmurs. Lungs are clear without rales, rhonchi, or wheezes. Abdomen is soft and nontender without bruits. Extremities reveal intact radial artery and posterior tibial pulses bilaterally. There is no peripheral edema. Results & Data ([facility]) Vital Signs (Past 12 Hours) Vital Signs Temp Pulse Pulse Resp BP Pulse Ox 12/05/20 10:47 58 L 12/05/20 08:14 36.8 C 58 L 19 110/61 100 12/05/20 08:00 55 L 16 112/69 98 12/05/20 07:45 57 L 16 118/56 L 98 12/05/20 07:21 37.2 C 83 16 132/83 95 12/05/20 03:39 36.7 C 78 18 116/63 95 12/04/20 23:18 36.8 C 80 20 93/54 L 95 Laboratory Results classroom monitor notes normal sinus rhythm. PG Care Time/CCT Total # of Minutes Spent Total Time Spent with Patient: Total time spent is greater than 50% in coordination of care (as documented) at patient's floor/unit and/or counseling patient: Coding Level of Care Code 24233 Subseq Hosp Care Lvl 3 Diagnoses Atrial fibrillation and flutter I48.91; I48.92 Syncope R55 Syncope type: unspecified Dizziness R42 HTN (hypertension) I10 Hyperlipemia E78.5 (1) Syncope Syncope type: unspecified Qualified Code(s): R55 - Syncope and collapse
--- NOTE | 2020-12-05 11:31 | Ultrasound Report ---
US venous doppler LE RT CLINICAL HISTORY: RLE calf pain w/ swelling COMPARISON STUDY: No previous studies for comparison. FINDINGS: Real-time and color flow Doppler imaging were performed. Flow was seen within the femoral, popliteal and calf veins with no intraluminal thrombus demonstrated. The saphenous vein is patent. Soft tissue edema is seen. IMPRESSION: No evidence of deep venous thrombosis. ACT 112: Negative or not required by law. The above report was generated using voice recognition software. It may contain grammatical, syntax o r spelling errors. Electronically signed by: Tiffanie López DO 12/05/2020 11:30 AM
--- NOTE | 2020-12-05 13:54 | Hospitalist Progress Note ---
Date of Service December 05, 2020 Assessment & Plan (1) Syncope: Jerri Arellano is a 60yo female with a PMH including T2DM, recently-diagnosed atrial fibrillation (on Xarelto), CKD4 with AV fistula (placed 08/2020), morbid obesity s/p bariatric surgery (08/2020), HFpEF, HTN, HLD, and TRUMAN (on CPAP) who presents with a 2-3 month history of progressively worsening weakness/dizziness with exertion and a 2-week history of syncope with exertion. Presyncope/syncope - Secondary to afib/flutter with RVR with some contribution from orthostatic hypotension - Cardiology consulted. Appreciate their assistance and recommendations. - Underwent cardioversion today, 12/05 w/ success to normal sinus rhythm - Started metoprolol 12.5 mg every 6 hours --> adjusted to metoprolol 25mg po qAM on 12/05 - Continue flecainide 100mg po q12h - Continue anticoagulation w/ Xarelto - Fall precautions - PT/OT consults -- recommend inpatient rehab - CM assisting w/ inpatient rehab placement Right Calf Pain and swelling - RLE venous doppler 12/05 -- no evidence of DVT - Will continue to monitor IDDM2 - Holding home DM2 regimen - Glycemic consult placed - ISS Anemia - Iron wnl, transferrin low, TIBC low, ferritin high normal - Pattern suggestive of anemia of chronic disease; continue to treat underlying conditions History of bariatric surgery (08/2020) - Glycemic consult and nutrition consult placed - Bariatric post-op (1+ mo) diet (+ heart healthy, DM2 diet) - Discussed w/ nutrition today, will loosen restrictions on bariatric post- op diet - B12, folate wnl HFpEF - No overt symptoms of CHF exacerbation on admission, CXR without signs of fluid overload - EF (08/2020) 55-60% with mild concentric LVH - Continue bumetanide Hypomagnesemia - 1.6 on admission, repleted in ED, resolved - Mag level qod COPD - Home O2 regimen: 2L at night or with exertion, none at daytime - O2 via NC as-needed to maintain sat>89% HTN - Normotensive/slightly elevated on admission - Continue home meds HLD - Continue home atorvastatin, fenofibrate Anxiety, depression - Continue home buspirone, trazodone, fluvoxamine, lorazepam Hypothyroidism - TSH on admission wnl - Continue home levothyroxine Dispo planning - CM consulted (patient's home is without safety/accessibility equipment e.g. shower seat) - Plan is for discharge to inpatient rehab FEN: dialysis renal, heart healthy, bariatric post-op (1+ month) diet Code status: full code DVT ppx: pinky Isolation: none Consults: cardiology, nutrition, glycemic consult Dispo: med/surg tele (2) Anxiety and depression: (3) Atrial fibrillation, new onset: (4) Chronic kidney disease, stage 4 (severe): (5) COPD (chronic obstructive pulmonary disease): (6) Diabetic nephropathy: (7) HTN (hypertension): (8) Hyperlipemia: (9) Hypothyroidism: (10) Morbid obesity: (11) Nocturnal hypoxia: (12) Obesity hypoventilation syndrome: (13) Claustrophobia: (14) Type 2 diabetes mellitus: (15) Status post gastric bypass for obesity: Admission and Anticipated Discharge Date Admission Date: December 04, 2020 Supervising Physician Co-Signing Physician Notes I personally examined the patient and verified all posada points of history and exam, discussed case, and agree with decision making with Dr Martinez. Feeling tired, but notes that she was up early for the procedure and just generally is feeling tired today. Otherwise feels okay. Awaiting hopeful insurance approval for rehab. Vitals noted, in general she is awake and alert pleasant no distress. HEENT normocephalic atraumatic mucous membranes moist. Breathing unlabored no accessory muscle use good effort. Skin shows no rashes no pallor or icterus. Neuro shows no focal deficits. She is sinus rhythm on the monitor rate of about 60 A flutternow converted to sinus. Continue current medical management Weakness/deconditioninghopefully will be able to transfer for rehab Otherwise as above Subjective Patient seen and evaluated at bedside this morning. She did undergo cardioversion this AM w/ cardiology. Patient states that she already "feels more energy." She does note some increased right calf pain and swelling; swelling most prominent in right ankle, especially when compared to the left. She otherwise reports feeling well overall. Does note that she is overall weak and that she is hopeful for discharge to inpatient rehab. Patient denies CP, SOB, abd pain, n/v, headache, lightheadedness, dizziness, tachycardia, or palpitations. Review of Systems Review of Systems: See HPI Physical Exam Physical Exam: GENERAL: No acute distress. Well developed and well nourished. Vital signs reviewed as above. EYES: EOMI. Anicteric sclerae. HENT: Moist mucous membranes. RESPIRATORY: Clear to auscultation bilaterally. No wheezing, rales, or rhonchi. CARDIOVASCULAR: Regular rate and rhythm. + systolic murmur. ABDOMEN: Soft, non-tender and non-distended. Normal bowel sounds. EXTREMITIES: 1-2+ RLE edema w/ tenderness to deep calf squeeze. Trace to 1+ LLE edema; no tenderness to palpation. SKIN: Warm, dry. NEUROLOGIC: A/O x3. No focal neurological deficits. PSYCHIATRIC: Cooperative. Appropriate mood and affect. Results & Data Results & Data ([facility]) Vital Signs (Past 12 Hours) Vital Signs Temp Pulse Pulse Resp BP Pulse Ox 12/05/20 11:22 36.7 C 63 19 141/81 H 100 12/05/20 10:47 58 L 12/05/20 08:14 36.8 C 58 L 19 110/61 100 12/05/20 08:00 55 L 16 112/69 98 12/05/20 07:45 57 L 16 118/56 L 98 12/05/20 07:21 37.2 C 83 16 132/83 95 12/05/20 03:39 36.7 C 78 18 116/63 95 Resident Activity Tracking Resident Involvement: Resident Care Provided Care Provided: Adult Hospital Medicine (1) Type 2 diabetes mellitus Diabetes mellitus complication status: with other specified complication Diabetes mellitus shelter insulin use: with shelter use Qualified Code(s): E11.69 - Type 2 diabetes mellitus with other specified complication; Z79.4 - statistical typist (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
--- NOTE | 2020-12-05 14:54 | Electrocardiogram Report ---
Test Reason : Blood Pressure : / mmHG Vent. Rate : 054 BPM Atrial Rate : 054 BPM P-R Int : 238 ms QRS Dur : 104 ms QT Int : 440 ms P-R-T Axes : 073 -32 038 degrees QTc Int : 417 ms Sinus bradycardia with sinus arrhythmia with 1st degree A-V block Left axis deviation Low voltage QRS Inferior infarct (cited on or before 08-NOV-2020) Possible Anterolateral infarct (cited on or before 08-NOV-2020) Abnormal ECG When compared with ECG of 05-DEC-2020 07:24, (unconfirmed) AK interval has decreased Confirmed by Joshua Fontaine ([id number]) on 12/05/2020 2:54:31 PM Referred By: REFERRED SELF Confirmed By:Joshua Fontaine
--- NOTE | 2020-12-05 14:55 | Electrocardiogram Report ---
Test Reason : Blood Pressure : / mmHG Vent. Rate : 070 BPM Atrial Rate : 070 BPM P-R Int : 408 ms QRS Dur : 126 ms QT Int : 424 ms P-R-T Axes : -80 -38 061 degrees QTc Int : 457 ms Possible Atrial flutter Left axis deviation Non-specific intra-ventricular conduction block Inferior infarct (cited on or before 08-NOV-2020) Possible Anterolateral infarct (cited on or before 08-NOV-2020) Abnormal ECG When compared with ECG of 02-DEC-2020 09:34, No significant change Confirmed by Joshua Fontaine ([id number]) on 12/05/2020 2:55:27 PM Referred By: REFERRED SELF Confirmed By:Joshua Fontaine
--- NOTE | 2020-12-05 14:58 | Electrocardiogram Report ---
Test Reason : Blood Pressure : / mmHG Vent. Rate : 077 BPM Atrial Rate : 077 BPM P-R Int : 152 ms QRS Dur : 112 ms QT Int : 414 ms P-R-T Axes : 000 -35 074 degrees QTc Int : 468 ms Normal sinus rhythm Left axis deviation Low voltage QRS Inferior infarct (cited on or before 08-NOV-2020) Possible Anterolateral infarct (cited on or before 08-NOV-2020) Abnormal ECG When compared with ECG of 05-DEC-2020 06:10, (unconfirmed) Sinus rhythm now present Questionable change in initial forces of Lateral leads Confirmed by Joshua Fontaine ([id number]) on 12/05/2020 2:57:42 PM Referred By: REFERRED SELF Confirmed By:Joshua Fontaine
--- NOTE | 2020-12-05 17:37 | Billing Data ---
Date of Service December 05, 2020 Coding Level of Care Code 64324 Subseq Hosp Care Lvl 2
[2020-12-05] MEDS: ATORVASTATIN 40 MG TAB PO SCH (21:17)
[2020-12-05] MEDS: PANTOprazole 40 MG TAB PO SCH (21:19)
[2020-12-05] MEDS: traZODone HCL 100 MG TAB PO SCH (21:19)
[2020-12-05] MEDS: INSULIN GLARGINE SOLOSTAR 100 UNITS/ML 3 ML PEN SC SCH (21:20)
[2020-12-06] MEDS: LEVOTHYROXINE SODIUM 50 MCG TABLET PO SCH (06:30)
[2020-12-06] MEDS: FLECAINIDE ACETATE 100 MG TABLET PO SCH (08:32)
[2020-12-06] MEDS: RIVAROXABAN 15 MG TAB PO SCH (08:32)
[2020-12-06] MEDS: busPIRone 15 MG TAB PO SCH (08:32)
[2020-12-06] MEDS: fluvoxaMINE MALEATE 50 MG TAB PO SCH (08:33)
[2020-12-06] MEDS: FOLIC ACID 1 MG TAB PO SCH (08:33)
[2020-12-06] MEDS: METOPROLOL SUCC 25MG EXT REL TAB PO SCH (08:33)
[2020-12-06] MEDS: FENOFIBRATE NANOCRYSTALLIZED 145 MG TABLET PO SCH (08:33)
--- NOTE | 2020-12-06 10:12 | Discharge Summary ---
Date of Service December 06, 2020 Admission HPI Per Admitting Provider Jerri Arellano is a 60yo female with a PMH including T2DM, recently-diagnosed atrial fibrillation (on Xarelto), CKD4 with AV fistula (placed 08/2020), morbid obesity s/p bariatric surgery (08/2020), HFpEF, HTN, HLD, and TRUMAN (on CPAP) who presents with a 2-3 month history of progressively worsening weakness/dizziness with exertion and a 2-week history of syncope with exertion. Patient reports a 2-3 month history of worsening episodes of weakness, lightheadedness, and dizziness that reliably occurs with exertion, typically after standing and walking a short distance (10-50 feet), with three episodes in the past two weeks resulting in LOC and falls. Patient first noticed weakness/dizziness with exertion while at inpatient rehab after bariatric surgery this year (09/14/2020). Since then, her symptoms have worsened, become more frequent, and have been happening at shorter walking distances. Initially, patient's lightheadedness and dizziness would resolve quickly upon sitting down and resting, but over the past 4-6 weeks, patient reports symptoms persisting for 10-30 minutes with rest. Additionally, over the past 2-4 weeks, some (but not all) episodes are associated with severe nausea for 10-30 minutes, sometimes with vomiting. During one witnessed episode two weeks ago, patient became lightheaded and dizzy while standing; about 30 seconds later, patient experienced a sudden loss of bowel continence without preceding bowel urgency; patient did not lose consciousness, and upon laying down to rest, experienced 10-15 minutes of nausea before symptoms resolved. Patient reports three episodes over the past two weeks in which her exertional weakness/lightheadedness/dizziness episodes led to vision loss, loss of consciousness, and falling. Patient reports she felt these prodromal symptoms for 1-5 minutes before LOC and falling. During one episode two weeks ago, patient became lightheaded and dizzy in the shower and called out to her to help prevent a fall. He helped her sit onto the toilet seat; per 's report, her head then fell backwards, her arms raised into the air and convulsed symmetrically, her eyes opened wide, and she remained unconscious for about a minute before slowly "coming back". She was nauseous for 30 minutes afterward. She did not injure her head at that time (hit it on a soft basket). Patient does not remember events between sitting down and regaining consciousness a minute or so later. Patient experienced an episode yesterday tathat resulted in LOC, falling, and scraping her leg, followed by 30 minutes of nausea with dry wretching. Patient's bypass surgery (09/14/20 at [facility]) was followed by a prolonged hospitalization due to CKD; patient received dialysis during this hospitalization (using an AV fistula, placed 09/[address] Ricks, due to elliot t's worsening renal disease). Patient was also noted to have atrial fibrillation with RVR during that hospitalization and was started on xarelto. Patient was transferred to [facility] on 09/25 and had two weeks of inpatient rehab before discharge home. Patient had a virtual visit with [facility] on 11/25 and was placed on flecainide due to high ventricular rates, which patient has been monitoring at home. Patient then had another virtual visit with [facility] on 11/28 during which she endorsed some dizziness and weakness. 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 Patient endorses being very diligent about monitoring her blood glucose, and since her diagnosis of afib, has been monitoring her BP and HR multiple times daily at home. Patient keeps a log of these numbers, but does not have them with her at this time. Patient reports logging her BSG, BP, and HR before every time she wants to shower, and reports she will not attempt to shower if she has a BSG under 100 or if her HR is under 90. Patient endorses chronic mild SOB with exertion due to COPD, and reports her SOB has been no worse recently than it has been for years. Patient has a 2L nighttime oxygen requirement and occasionally uses oxygen with exertion at home. Also reports chronic LE edema, also no worse recently compared to normal. Patient lives at home with her , but more recently has been spending most days each week at her sister's home because her sister's home is better-equipped with safety equipment including a spacious shower with a shower seat and shower bars. Patient denies chest pain, abdominal pain, fever, congestion, sore throat, diarrhea, dysuria, bladder incontinence, numbness, tingling, or other symptoms. Admission Exam Per Admitting Provider Constitutional: well-appearing, very pleasant woman in no acute distress HEENT: NCAT, no conjunctival injection, facial pallor CV: irregular rhythm, rate 80s, systolic 2/6 crescendo-decrescendo murmur appreciated, extremities well-perfused Resp: faint wheeze in posterior left lower lobe but CTA otherwise, CTABL anteriorly, good air movement, no increased WOB GI: soft, nondistended, nontender, BS normoactive MSK: no gross deformities appreciated Skin: minor superficial abrasions on front of left bowen Neuro: AOx4, no focal neurological deficits appreciated, resting tremor of tongue appreciated Psych: cooperative, pleasant, appropriate rate/volume/quantity of speech Principal Diagnosis atrial flutter/a-fib Discharge Exam GENERAL: No acute distress. Well developed and well nourished. Vital signs reviewed as above. EYES: EOMI. Anicteric sclerae. HENT: Moist mucous membranes. RESPIRATORY: Clear to auscultation bilaterally. No wheezing, rales, or rhonchi. CARDIOVASCULAR: Regular rate and rhythm. + 2/6 SILVINA. ABDOMEN: Obese abdomen, soft, non-tender and non-distended. Normal bowel sounds. EXTREMITIES: 1-2+ BLE edema. Non-tender. SKIN: Warm, dry. NEUROLOGIC: A/O x3. No focal neurological deficits. PSYCHIATRIC: Cooperative. Appropriate mood and affect. Discharge Data Allergies Allergy/AdvReac Type Severity Reaction Status Date / Time promethazine Allergy Unknown BROKEN Verified 12/01/20 16:57 CAPILLARIES FACE Iodinated Contrast Media AdvReac Unknown Unknown Verified 12/01/20 16:57 [Iodinated Contrast- Oral and IV Dye] Consultations 12/01/20 17:41 ED Decision to Admit Stat 12/01/20 19:14 Consult Cardiology Routine Procedures Performed Operation Date: 12/05/20 07:30 Actual Procedures p Cardioversion - Claude Parisi MD Ordered Studies 12/01/20 16:05 CT abd pelvis wo con Stat CT head/brain wo con Stat 12/05/20 09:40 US venous doppler LE RT Urgent Hospital Course (1) Syncope: Jerri Arellano is a 60yo female with a PMH including T2DM, recently-diagnosed atrial fibrillation (on Xarelto), CKD4 with AV fistula (placed 08/2020), morbid obesity s/p bariatric surgery (08/2020), HFpEF, HTN, HLD, and TRUMAN (on CPAP) who presents with a 2-3 month history of progressively worsening weakness/dizziness with exertion and a 2-week history of syncope with exertion. Presyncope/syncope - Secondary to afib/flutter with RVR with some contribution from orthostatic hypotension - Underwent cardioversion 12/05 w/ successful conversion to normal sinus rhythm - Started on metoprolol 25mg po qAM on 12/05 - Continue flecainide 100mg po q12h and anticoagulation w/ Xarelto - PT/OT consults -- recommend inpatient rehab --> patient transferred to [facility] on 12/06 Right Calf Pain and swelling - RLE venous doppler 12/05 -- no evidence of DVT IDDM2 - Home DM2 regimen held during admission; restarted on discharge Anemia - Iron wnl, transferrin low, TIBC low, ferritin high normal - Pattern suggestive of anemia of chronic disease; continue to treat underlying conditions - Recommend f/u in outpatient setting with repeat CBC History of bariatric surgery (08/2020) - Bariatric post-op (1+ mo) diet (+ heart healthy, DM2 diet) - B12, folate wnl HFpEF - No overt symptoms of CHF exacerbation on admission, CXR without signs of fluid overload - EF (08/2020) 55-60% with mild concentric LVH - Bumex held during admission and continued to be held on discharge - Recommend daily weights and close outpatient follow up for signs of hypervolemia Hypomagnesemia - 1.6 on admission, repleted in ED, resolved COPD - Home O2 regimen: 2L at night or with exertion, none at daytime HTN - Normotensive/slightly elevated on admission - Continue home meds HLD - Continue home atorvastatin, fenofibrate Anxiety, depression - Continue home buspirone, trazodone, fluvoxamine, lorazepam Hypothyroidism - TSH on admission wnl - Continue home levothyroxine Dispo: patient discharged for transfer to [facility] for inpatient rehabilitation (2) Anxiety and depression: (3) Atrial fibrillation, new onset: (4) Chronic kidney disease, stage 4 (severe): (5) COPD (chronic obstructive pulmonary disease): (6) Diabetic nephropathy: (7) HTN (hypertension): (8) Hyperlipemia: (9) Hypothyroidism: (10) Morbid obesity: (11) Nocturnal hypoxia: (12) Obesity hypoventilation syndrome: (13) Claustrophobia: (14) Type 2 diabetes mellitus: (15) Status post gastric bypass for obesity: Total Time Total Time Spent Total Time Spent (In Minutes): Less than 30 Discharge Plan Discharge Items Patient Disposition: Transfer Inpatient Rehab Fac Reason For Visit: WEAKNESS, SYNCOPE Discharge Diagnosis: atrial flutter Activity: Resume your previous activity Non-emergency contact: Primary Care Provider and Supervisor Phosphoric Acid Call non-emergency contact if: you have any medication questions Follow-up/Referrals: William Lewis MD [Primary Care Provider] - Diet: Bariatric Addtl Attending Provider Instructions: Mrs. Jerri Arellano, It was our pleasure to care for you at [facility] from 12/01/20 to 12/06/20. You initially presented with a 2-3 month history of progressively worsening weakness/dizziness and a 2 week history of passing out with activity. You were found to be in an abnormal heart rhythm called atrial fibrillation/atrial flut ter. You underwent a procedure called cardioversion with cardiology during admission and you heart is now beating in a normal rhythm. There are several changes in your medications as noted below: 1. Metoprolol was adjusted to 25mg by mouth once every morning 2. Your Bumex (fluid pill) was STOPPED. It is important that you weigh yourself daily and contact your primary care physician if you have a 3-5 pound weight gain in a 24 hour period. 3. Please check the attached medication list for information on the remainder of your medications. As we discussed, if you have recurrent symptoms including lightheadedness, dizziness, or chest pain please contact your primary care doctor or return to the ER. Please follow up with your primary care doctor in 2-3 days. Good luck with rehab! Pending Studies at Discharge: No Stand-Alone Forms: My [employer] Skilled Items Patient informed of condition?: Yes DNR: No Discharge Level of Care: Acute rehab Communicable Disease: No Discharge Prognosis: Stable Lines: None Urinary Catheter: No Medications and DC Order Prescriptions: New metoprolol succinate 25 mg Tablet Extended Release 24 Hr 25 mg PO QAM 30 Days Qty: 30 RF: 0 Continued atorvastatin 80 mg tablet 80 mg PO HS Qty: 90 RF: 3 (DME) OneTouch Ultra Blue Test Strip Strip See Dose Instructions .ROUTE .MEDSUPPLY Qty: 400 RF: 3 (DME) lancets [OneTouch UltraSoft Lancets] Misc See Rx Instructions .ROUTE .MEDSUPPLY Qty: 400 RF: 3 (DME) FreeStyle Allyssa 14 Day Sensor Kit See Rx Instructions .ROUTE .MEDSUPPLY Qty: 1 RF: 5 fenofibrate 160 mg tablet 160 mg PO DAILY Qty: 90 RF: 3 folic acid 1 mg tablet 1 mg PO DAILY Qty: 90 RF: 3 fluvoxamine 100 mg capsule,extended release 24hr 150 mg PO BID RF: 0 insulin lispro 100 unit/mL solution 0 unit SQ TIDM RF: 0 Lantus U-100 Insulin 100 unit/mL solution 12 unit SQ HS RF: 0 cholecalciferol (vitamin D3) 125 mcg (5,000 unit) capsule 125 mcg PO DAILY RF: 0 (DME) insulin syringe-needle U-100 [Easy Comfort Insulin Syringe] 0.5 mL 31 gauge x 5/16" syringe See Rx Instructions .ROUTE .MEDSUPPLY RF: 0 buspirone 15 mg tablet 15 mg PO BID RF: 0 flecainide 100 mg tablet 100 mg PO Q12H Qty: 60 RF: 2 zinc gluconate 100 mg Tablet 100 mg PO HS RF: 0 lorazepam [Ativan] 1 mg tablet 1 mg PO BID PRN (Reason: anxiety) RF: 0 trazodone 50 mg tablet 100 mg PO HS MDD 100 RF: 0 levothyroxine 50 mcg tablet 50 mcg PO DAILYBB RF: 0 polysaccharide iron complex [Ferrex 150] 150 mg iron Capsule 150 mg PO HS RF: 0 calcium-vitamin D3-vitamin K 500-200-40 mg-unit-mcg Tablet,Chewable 1 tab PO HS RF: 0 Flintstones Complete Tablet,Chewable 1 tab PO HS RF: 0 pantoprazole 40 mg tablet,delayed release (DR/EC) 40 mg PO HS RF: 0 Xarelto 15 mg tablet 15 mg PO QDD RF: 0 Discontinued amoxicillin 500 mg tablet 2,000 mg PO ONCE PRN (Reason: 1 HOUR PRIOR TO DENTAL APPT.) RF: 0 bumetanide 1 mg tablet 1 mg PO DAILY RF: 0 Discharge Orders: Discharge Order (Routine); Ordered 12/06/20 Ordered By: Krista Reese/Other Patient Handouts: Managing Type 2 Diabetes, A1C Admission Data Admit Date/Time: 12/04/20 08:18 Attending Provider: Marciano Rm Admit Provider: Andrés Batres Primary Care Provider: William Lewis V. [facility]endez ; [facility] ; Brendan Grimes ; Claude Parisi Other Interventions: Discharge Summary Assessment (RN) Last Done: 12/06/20 13:32 Supervising Physician Co-Signing Physician Notes I personally examined the patient and verified all posada points of history and exam, discussed case, and agree with decision making with Dr Martinez. Feels up to going to rehab. No new complaints. Vitals noted, in general she is awake and alert pleasant no distress. HEENT normocephalic atraumatic mucous membranes moist. Breathing unlabored no accessory muscle use good effort. Skin shows no rashes no pallor or icterus. Neuro shows no focal deficits. She is sinus rhythm on the monitor rate of about 60 A flutternow converted to sinus with cardioversion. Continue current medical management, outpatient follow-up Weakness/deconditioningstable for rehab Otherwise as above Resident Activity Tracking Resident Involvement: Resident Care Provided Care Provided: Adult Hospital Medicine
[2020-12-06] MEDS: INSULIN ASPART 100 UNITS/ML 3 ML PEN SC SCH ×2 (10:42→12:38)
--- NOTE | 2020-12-06 12:54 | Cardiology Progress Note ---
Date of Service December 06, 2020 Assessment & Plan (1) Atrial fibrillation and flutter: -successful electrical cardioversion yesterday. -remains in sinus rhythm on flecainide -continue low-dose metoprolol succinate. -could consider a change to full dose Eliquis. -follow-up as scheduled in January. (2) Syncope: -no recurrence. -likely vasovagal in origin. (3) Dizziness: -likely secondary to orthostatic hypotension and a rapid ventricular response to her atrial fibrillation. (4) HTN (hypertension): -adequate control on current regimen. (5) Hyperlipemia: -continue atorvastatin and fenofibrate. Admission and Anticipated Discharge Date Admission Date: December 04, 2020 Subjective The patient is resting comfortably in bed without complaints of chest pain, dyspnea, or palpitations. She is anxious for hospital discharge. Physical Exam Physical Exam: In general this is an obese white female in no acute distress. HEENT exam is negative. Neck is supple with full carotid upstrokes. There are no carotid bruits. No JVD. There is no thyromegaly. Cardiovascular exam reve als a regular rhythm with distant heart sounds. No obvious murmurs. Lungs are clear without rales, rhonchi, or wheezes. Abdomen is soft and nontender without bruits. Extremities reveal intact radial artery and posterior tibial pulses bilaterally. There is no peripheral edema. Results & Data ([facility]) Vital Signs (Past 12 Hours) Vital Signs Temp Pulse Pulse Resp BP Pulse Ox 12/06/20 11:48 36.7 C 81 20 137/81 94 12/06/20 08:00 61 12/06/20 07:26 36.6 C 59 L 19 124/64 94 12/06/20 04:07 36.6 C 70 16 134/88 99 Diagnostic Findings awake overnight monitor notes normal sinus rhythm. PG Care Time/CCT Total # of Minutes Spent Total Time Spent with Patient: Total time spent is greater than 50% in coordination of care (as documented) at patient's floor/unit and/or counseling patient: Coding Level of Care Code 64180 Subseq Hosp Care Lvl 3 Diagnoses Atrial fibrillation and flutter I48.91; I48.92 Syncope R55 Syncope type: unspecified Dizziness R42 HTN (hypertension) I10 Hyperlipemia E78.5 (1) Syncope Syncope type: unspecified Qualified Code(s): R55 - Syncope and collapse
--- NOTE | 2020-12-06 17:26 | Billing Data ---
Date of Service December 06, 2020 Coding Level of Care Code D/C Day Management <30 mins
== END 2020-12-06 14:40 | DRG 309 ==
LOC: ED 15:21 → 2E 15:21 → SUATTDRO 19:28 → 2E 20:07 → SUATTDRO 12-04 08:18

== ENCOUNTER 2021-02-26 21:27 | Inpatient (IN) ==
[2021-02-26 22:02] LABS: Basophils # (auto) 0.03 K/uL (0-0.2); Basophils % (auto) 0.4 %; Eosinophils # (auto) 0.04 K/uL (0-0.5); Eosinophils % (auto) 0.6 %; Hematocrit (blood only) 33.9 % (37-47); Hemoglobin 10.8 g/dL (12.0-16.0); Immature Granulocytes # (auto) 0.04 K/uL (0.00-0.02); Immature Granulocytes % (auto) 0.6 %; Lymphocytes # (auto) 1.78 K/uL (1.2-3.4); Lymphocytes % (auto) 24.5 %; Mean Corpuscular Hemoglobin 27.6 pg (25-34); Mean Corpuscular Hgb Conc 31.9 g/dL (32-36); Mean Corpuscular Volume 86.7 fL (80-100); Mean Platelet Volume 10.4 fL (7.4-10.4); Monocytes # (auto) 0.37 K/uL (0.11-0.59); Monocytes % (auto) 5.1 %; Neutrophils % (auto) 68.8 %; Platelet Count 216 K/uL (130-400); RDW Standard Deviation 54.2 fL (36.4-46.3); Red Blood Count 3.91 M/uL (4.2-5.4); White Blood Count 7.26 K/uL (4.8-10.8)
[2021-02-26 22:12] LABS: INR 1.4 (0.9-1.1); Partial Thromboplastin Ratio 1.1; Partial Thromboplastin Time 28.1 Seconds (21.0-31.0); Prothrombin Time 13.5 Seconds (9.0-12.0)
[2021-02-26 22:24] LABS: Alanine Aminotransferase 41 U/L (12-78); Albumin Level 3.1 gm/dl (3.4-5.0); Aspartate Aminotransferase 59 U/L (15-37); BUN Creatinine Ratio 23.6 (10-20); Blood Urea Nitrogen 64 mg/dl (7-18); Calcium 9.1 mg/dl (8.5-10.1); Carbon Dioxide 27 mmol/L (21-32); Chloride 109 mmol/L (98-107); Est GFR (Non-African American) 18.2 ml/min; Glucose 117 mg/dl (70-99); Potassium 3.7 mmol/L (3.5-5.1); Sodium 144 mmol/L (136-145)
[2021-02-26 22:31] LABS: Albumin Globulin Ratio 0.9 (0.9-2); Alkaline Phosphatase 87 U/L (45-117); Bilirubin,Total 0.4 mg/dl (0.2-1); Globulin 3.4 gm/dl (2.5-4.0); Total Protein 6.5 gm/dl (6.4-8.2); Troponin I 0.124 ng/ml (0-0.045)
--- NOTE | 2021-02-26 22:49 | Emergency Department Note ---
Impression & Plan Elevated troponin I level, Atrial fibrillation, CKD (chronic kidney disease) ED Provider Note NAME: SHANTEL PAYAN AGE: 60 SEX: F : 1960 ARRIVES VIA: Walk-In INFORMANT: Patient, ED PROVIDER(S): Andrés Lee MD Chief Complaint: Lightheadedness, dizziness, irregular heartbeat HPI: Patient does present with the above symptoms which have been ongoing for the last week. The patient states she was having significant exertional fatigue lightheadedness and dizziness. The patient would check her pulse and the patient was thinking that she was in A. fib. Patient does have a known history of A. fib and does follow locally with Dr. Fontaine. The patient is anticoagulated does take flecainide. No recent changes or missed doses. Patient denies any alcohol, tobacco, or drug use. The patient denies any fevers or chills. The patient denies any URI symptoms. Patient denies any lower extremity swelling or abdominal pain. The patient denies any chest pains or shortness of breath at rest. The patient states that her symptoms do worsen with ambulation. Patient denies any vomiting or diarrhea. Patient is vaccinated for Covid. ROS: See HPI for pertinent positives and negatives. A total of 10 systems were reviewed and otherwise negative. Past medical history: See below Surgical history: See below Social history: See below Physical Exam: GENERAL: NAD, wearing a mask, non-toxic. EYE EXAM: Normal conjunctiva. PERRL, no anisocoria and EOM's grossly intact w/o pain. NECK: Supple, no nuchal rigidity, no adenopathy, non-tender. No signs of meningismus. LUNGS: Clear to auscultation. Normal chest wall mechanics. HEART: Irregularly irregular, no MRG. ABDOMEN: Abdomen soft, non-tender, normo-active bowel sounds, no masses, no rebound or guarding. BACK: No CVA TTP. SKIN: No rashes and no bruising. UPPER EXTREMITIES: Upper extremities are grossly normal. LOWER EXTREMITIES: Grossly normal, no edema. NEURO EXAM: A&O x3, cranial nerves II-XII grossly intact, normal speech, moves all 4 extremities on command w/o issue. Differential diagnoses: Premature contractions, electrolyte abnormality, cardiac dysrhythmia, thyroid dysfunction, pulmonary embolism, infection, gastrointestinal, as well as other pathologies. Course: Patient was seen and evaluated the bedside. Full history physical exam was performed. EKG interpreted by me Likely A. fib, rate of 84, normal intervals, left axis deviation, Q waves throughout. Imaging Studies: 1 view chest x-ray by my read Cardiomegaly without obvious consolidation pneumothorax or pleural effusion. Left total shoulder hardware in place. Cardiac monitoring: An order was placed for continuous cardiac monitoring. The monitor shows a rate of 72 with irregularly irregular rhythm. MDM: Patient does present with exertional fatigue and associated lightheadedness and dizziness. Patient did have triage labs completed which did show concern for positive troponin. Patient was ordered full dose aspirin. The patient denies any chest pains or shortness of breath at rest. Patient has a normal white count with mild anemia 10.8. Platelet count is unremarkable. Kidney function is chronic and stable. I did speak the on-call hospitalist Dr. Childress and the patient was admitted to the medicine service. Patient is currently chest pain-free. Past Med/Surg History Medical History Acute kidney injury Acute renal failure (05/23/14) 2013. Kidneys recovered to around CKD III, then function worsened around 04/2020. Anemia due to chronic kidney disease Anxiety and depression Arthralgia of multiple sites Avascular necrosis of head of humerus Cardiac murmur Mild TR noted on 2018 echo. Chronic kidney disease, stage 4 (severe) F/U [facility]- nephrology Chronic low back pain Chronic rhinitis Chronic sinusitis Claustrophobia Diabetes Diabetic nephropathy Diabetic peripheral neuropathy Diabetic retinopathy, nonproliferative Diastolic congestive heart failure Euvolemic on exam at [facility] 09/02/20. 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 Per [facility] pulm 12/2019, "fairly stable f rom a pulmonary perspective. She is short of breath with any exertion, however a large part of this is likely related to obesity. Pulmonary functions done 1 year ago showed only a mild restrictive pattern. Diffusion was slightly decreased to 66%. One year ago she did have a normal arterial blood gas with no evidence of CO2 retention." Using PRN 3L, mostly using with exertion, not using every day. Morbid obesity Nasal septal deviation Nocturnal hypoxia Nontoxic multinodular goiter TRUMAN (obstructive sleep apnea) PRESCRIBED BIPAP-CAN'T TOLERATE-CLAUSTROPHOBIC Vitamin D deficiency Surgical History H/O section History of arthroscopy LEFT SHOULDER History of colonoscopy History of dermoid cyst excision History of esophagogastroduodenoscopy (EGD) History of mandibular surgery FULL ROM History of total shoulder replacement LEFT 07/19 2015 fracture Hx of cholecystectomy S/P shoulder surgery Left S/P tooth extraction Family History Daughter Bipolar disorder Multiple allergies Aunt Breast cancer Mother Diabetes Heart disease Hypertension Hyperthyroidism Father Hearing loss Gastric cancer Myocardial infarction Grandfather Heart disease Family/Other Hypertension Lung cancer Osteoporosis Stroke Brother Hypertension Grandmother Ovarian cancer Sister Migraine Denies family history of Prostate cancer Colorectal cancer Social History Smoking Status: Never smoker Second Hand Exposure: Yes (PARENTS SMOKED); Hx Alcohol Use: No Hx Substance Use: No Preferred Language: Macanese Communication Ability: Effective Supervisor Pipe Joints Required: No Beliefs That Will Affect Care: None marital status: Single Current Living Situation: Family Current Living Situation Comment: currently lives with sister as travels alot current occupational status: unemployed Feels Safe at Home: Yes Childhood Exposure to Second-Hand Smoke: Yes Dental Care, Regularly: Yes Physical Activity Frequency: Does not Exercise Seatbelt Use: never Sunscreen Use: Yes Assistive Devices: Oxygen - at Night Allergies Allergies Allergy/AdvReac Type Severity Reaction Status Date / Time promethazine Allergy Unknown BROKEN Verified 02/26/21 23:38 CAPILLARIES FACE Iodinated Contrast Media AdvReac Unknown Unknown Verified 02/26/21 23:38 [Iodinated Contrast- Oral and IV Dye] Home Meds Home Medications Medication Instructions Recorded Confirmed zinc gluconate 100 mg tablet 100 mg PO HS 07/23/18 02/26/21 lorazepam 1 mg tablet (Ativan) 1 mg PO BID PRN 03/24/19 02/26/21 trazodone 50 mg tablet 100 mg PO HS tab 04/26/20 02/26/21 fluvoxamine 100 mg 150 mg PO [facility] cap 07/06/20 02/26/21 capsule,extended release 24 hr levothyroxine 50 mcg tablet 50 mcg PO DAILYBB 08/10/20 02/26/21 cholecalciferol (vitamin D3) 125 125 mcg PO DAILY 11/21/20 02/26/21 mcg (5,000 unit) capsule insulin lispro 100 unit/mL 0 unit SQ TIDM vial 11/21/20 02/26/21 subcutaneous solution insulin syringe-needle U-100 0.5 ea 11/21/20 01/02/21 mL 31 gauge x 5/16" (Easy Comfort Insulin Syringe) buspirone 15 mg tablet 15 mg PO BID tab 11/28/20 02/26/21 pantoprazole 40 mg tablet,delayed 40 mg PO HS 12/01/20 02/26/21 release pediatric multivitamin no.76 1 tab PO HS 12/01/20 02/26/21 (Flintstones Complete) polysaccharide iron complex 150 mg 150 mg PO HS 12/01/20 02/26/21 iron capsule (Ferrex) rivaroxaban 15 mg tablet (Xarelto) 15 mg PO QAM 12/01/20 02/26/21 insulin glargine 100 unit/mL 5 unit SQ HS ml 12/27/20 02/26/21 subcutaneous solution (Lantus U-100 Insulin) bumetanide 1 mg tablet 1 mg PO QAM 02/26/21 02/26/21 calcium 650 mg-vitamin D3 12.5 1 tab PO AMHS 02/26/21 02/26/21 mcg-vitamin K 40 mcg chewable tablet (Viactiv) fenofibrate 160 mg tablet 160 mg PO QAM 02/26/21 02/26/21 folic acid 1 mg tablet 1 mg PO QAM 02/26/21 02/26/21 multivitamin with minerals 2 tab PO QAM 02/26/21 02/26/21 (Hair,Skin and Nails) Previous Rx's Medication Instructions Recorded OneTouch Ultra Blue Test Strip #400 ea NS 01/26/20 (blood sugar diagnostic) atorvastatin 80 mg tablet 80 mg PO HS #90 tab 01/26/20 lancets (OneTouch UltraSoft #400 ea 02/17/20 Lancets) flecainide 100 mg tablet 100 mg PO Q12H #60 tab 11/25/20 Results & Data (ED) Vital Signs Vital Signs - 24 hr 02/26/21 21:37 02/26/21 23:00 02/26/21 23:12 Temperature 36.7 C Temperature Source Temporal Artery Scan Pulse Rate 72 80 Pulse Rate from SpO2 Sensor 81 Respiratory Rate 18 14 Respiratory Depth Normal Blood Pressure 123/74 141/90 H Blood Pressure Mean 90 107 Blood Pressure Position Sitting Pulse Oximetry 97 98 Oxygen Delivery Method Room Air Room Air Sepsis Recent Fever Within 48 Hours No Sepsis New/Unexplained Change in Mental Status No Sepsis Action Taken by Nursing No Action Required 02/26/21 23:30 02/27/21 00:00 Temperature Temperature Source Pulse Rate 79 92 H Pulse Rate from SpO2 Sensor 79 Respiratory Rate 21 16 Respiratory Depth Blood Pressure 147/89 H 157/82 H Blood Pressure Mean 108 107 Blood Pressure Position Pulse Oximetry 94 97 Oxygen Delivery Method Sepsis Recent Fever Within 48 Hours Sepsis New/Unexplained Change in Mental Status Sepsis Action Taken by Long-Term Medications Current Medication List: was personally reviewed by me Laboratory Data Attestation: I reviewed the patient's lab results. Result diagrams: 02/26/21 21:50 02/26/21 21:50 Lab Results 02/26/21 02/26/21 02/26/21 Range/Units 21:50 21:50 21:50 WBC 7.26 (4.8-10.8) K/uL RBC 3.91 L (4.2-5.4) M/uL Hgb 10.8 L (12.0-16.0) g/dL Hct 33.9 L (37-47) % MCV 86.7 (80-100) fL MCH 27.6 (25-34) pg MCHC 31.9 L (32-36) g/dL RDW Std Deviation 54.2 H (36.4-46.3) fL RDW Coeff of Chantal 17.0 H (11.5-14.5) % Plt Count 216 (130-400) K/uL MPV 10.4 (7.4-10.4) fL Immature Gran % (Auto) 0.6 % Neut % (Auto) 68.8 % Lymph % (Auto) 24.5 % [place] % (Auto) 5.1 % Eos % (Auto) 0.6 % Baso % (Auto) 0.4 % Neut # (Auto) 5.00 (1.4-6.5) K/uL Lymph # (Auto) 1.78 (1.2-3.4) K/uL [place] # (Auto) 0.37 (0.11-0.59) K/uL Eos # (Auto) 0.04 (0-0.5) K/uL Baso # (Auto) 0.03 (0-0.2) K/uL Immature Gran # (Auto) 0.04 H (0.00-0.02) K/uL PT 13.5 H (9.0-12.0) Seconds INR 1.4 H (0.9-1.1) APTT 28.1 (21.0-31.0) Seconds PTT Ratio 1.1 Sodium 144 (136-145) mmol/L Potassium 3.7 (3.5-5.1) mmol/L Chloride 109 H (98-107) mmol/L Carbon Dioxide 27 (21-32) mmol/L Anion Gap 8.0 (3-11) BUN 64 H (7-18) mg/dl Creatinine 2.70 H (0.6-1.2) mg/dl Est Cr Clr Drug Dosing Not Reportable Est GFR ( Amer) 21.0 ml/min Est GFR (Non-Af Amer) 18.2 ml/min BUN/Creatinine Ratio 23.6 H (10-20) Glucose 117 H (70-99) mg/dl Calcium 9.1 (8.5-10.1) mg/dl Total Bilirubin 0.4 (0.2-1) mg/dl AST 59 H (15-37) U/L ALT 41 (12-78) U/L Alkaline Phosphatase 87 (45-117) U/L Troponin I 0.124 H* (0-0.045) ng/ml Total Protein 6.5 (6.4-8.2) gm/dl Albumin 3.1 L (3.4-5.0) gm/dl Globulin 3.4 (2.5-4.0) gm/dl Albumin/Globulin Ratio 0.9 (0.9-2) COVID-19 Eval Order SARS-CoV-2 (PCR) (Negative) 02/26/21 02/26/21 Range/Units 23:26 23:26 WBC (4.8-10.8) K/uL RBC (4.2-5.4) M/uL Hgb (12.0-16.0) g/dL Hct (37-47) % MCV (80-100) fL MCH (25-34) pg MCHC (32-36) g/dL RDW Std Deviation (36.4-46.3) fL RDW Coeff of Chantal (11.5-14.5) % Plt Count (130-400) K/uL MPV (7.4-10.4) fL Immature Gran % (Auto) % Neut % (Auto) % Lymph % (Auto) % [place] % (Auto) % Eos % (Auto) % Baso % (Auto) % Neut # (Auto) (1.4-6.5) K/uL Lymph # (Auto) (1.2-3.4) K/uL [place] # (Auto) (0.11-0.59) K/uL Eos # (Auto) (0-0.5) K/uL Baso # (Auto) (0-0.2) K/uL Immature Gran # (Auto) (0.00-0.02) K/uL PT (9.0-12.0) Seconds INR (0.9-1.1) APTT (21.0-31.0) Seconds PTT Ratio Sodium (136-145) mmol/L Potassium (3.5-5.1) mmol/L Chloride (98-107) mmol/L Carbon Dioxide (21-32) mmol/L Anion Gap (3-11) BUN (7-18) mg/dl Creatinine (0.6-1.2) mg/dl Est Cr Clr Drug Dosing Est GFR ( Amer) ml/min Est GFR (Non-Af Amer) ml/min BUN/Creatinine Ratio (10-20) Glucose (70-99) mg/dl Calcium (8.5-10.1) mg/dl Total Bilirubin (0.2-1) mg/dl AST (15-37) U/L ALT (12-78) U/L Alkaline Phosphatase (45-117) U/L Troponin I (0-0.045) ng/ml Total Protein (6.4-8.2) gm/dl Albumin (3.4-5.0) gm/dl Globulin (2.5-4.0) gm/dl Albumin/Globulin Ratio (0.9-2) COVID-19 Eval Order Covid19 at [facility] SARS-CoV-2 (PCR) NEGATIVE (Negative) Administered Medications Discontinued Medications Aspirin (Aspirin Chew 324 Mg) 324 mg PO NOW STA Stop: 02/26/21 22:52 Last Admin: 02/26/21 23:23 Dose: 324 mg Documented by: [id number] Discharge Plan Visit Data Chief Complaint: Arrhythmia/Palpitations Stated Complaint: AFIB Discharge Problem: Elevated troponin I level, Atrial fibrillation, CKD (chronic kidney disease) Patient Disposition: Admitted As Inpatient Discharge Instructions Interventions: ED Discharge Assessment Last Done: 02/27/21 01:40
[2021-02-26] MEDS ORDERED: ASPIRIN CHEW 324 MG PO STA (22:51)
--- NOTE | 2021-02-27 00:09 | History & Physical Report ---
Date of Service February 27, 2021 Assessment & Plan (1) Atrial fibrillation: Plan: Patient presently in normal sinus rhythm with PACs. Question if she has been in and out of atrial fibrillation which may be contributing to her overall feelings of weakness and fatigue. Daughter describes an irregular heartbeat prior to arrival. Admit to medical with telemetry Repeat troponin Check 2D echo Continue flecainide 100 mg p.o. twice daily Continue rivaroxaban PT/OT to evaluate patient's weakness. Assistance appreciated (2) Elevated troponin I level: Plan: As above. Patient with elevated troponin = 0.124. Question if possibly rate/arrhythmia related, demand ischemia. Patient denies chest pain. She was administered aspirin in the ER Telemetry monitoring Repeat troponin Check 2D echo (3) CKD (chronic kidney disease): Plan: BUN and creatinine slightly higher than previous however within baseline range Avoid nephrotoxic agents Continue to monitor BUN, creatinine, electrolytes (4) Hyperlipemia: Plan: Chronic. Continue atorvastatin (5) Hypothyroidism: Plan: Chronic. Continue Synthroid 50 mcg p.o. daily (6) HTN (hypertension): Plan: Blood pressure well controlled Continue to monitor Plan: F/E/N -Hep-Lock, monitor electrolytes, consistent carbohydrate/heart healthy diet Prophylaxison rivaroxaban, will continue Codefull Dispoadmit to medical telemetry History of Present Illness Chief Complaint: Weakness, fatigue Primary Care Provider: William Lewis MD Jerri Arellano is a 60-year-old female with multiple medical problems, most notably history of diabetes, hypertension, hyperlipidemia, atrial fibrillation presenting with weakness, fatigue, elevated troponin. Patient states that she has been feeling ill for the last 8 days. She complains of lightheadedness as well as generalized weakness, fatigue, dyspnea on exertion. She states that she is having difficulty performing her ADLs due to to feeling so tired. She states that she has been requiring assistance with ambulation and showering. Yesterday afternoon around 1430 she states that she was unable to even hold her head up in the shower due to extreme fatigue. She denies fevers, chills, chest pain, palpitations, cough, shortness of breath at rest. She denies edema, orthopnea, weight loss. She denies abdominal pain or bloating, nausea, vomiting, diarrhea, constipation. She states that she is eating well and drinking enough fluids. Her daughter is at bedside and states that she checked patient's pulse before arrival and it was very irregular, question of atrial fibrillation. Patient was first diagnosed with atrial fibrillation in August 2018. She had a cardioversion performed this November and has felt fine since. No additional complaints at this time ER course: Aspirin Allergies Allergy/AdvReac Type Severity Reaction Status Date / Time promethazine Allergy Unknown BROKEN Verified 02/26/21 23:38 CAPILLARIES FACE Iodinated Contrast Media AdvReac Unknown Unknown Verified 02/26/21 23:38 [Iodinated Contrast- Oral and IV Dye] Home Medications Medication Instructions Recorded Confirmed Type zinc gluconate 100 mg tablet 100 mg PO HS 07/23/18 02/26/21 History lorazepam 1 mg tablet (Ativan) 1 mg PO BID PRN 03/24/19 02/26/21 History OneTouch Ultra Blue Test Strip #400 ea NS 01/26/20 01/02/21 Rx (blood sugar diagnostic) atorvastatin 80 mg tablet 80 mg PO HS #90 tab 01/26/20 02/26/21 Rx lancets (OneTouch UltraSoft #400 ea 02/17/20 01/02/21 Rx Lancets) trazodone 50 mg tablet 100 mg PO HS tab 04/26/20 02/26/21 History fluvoxamine 100 mg 150 mg PO [facility]HS cap 07/06/20 02/26/21 History capsule,extended release 24 hr levothyroxine 50 mcg tablet 50 mcg PO DAILYBB 08/10/20 02/26/21 History cholecalciferol (vitamin D3) 125 125 mcg PO DAILY 11/21/20 02/26/21 History mcg (5,000 unit) capsule insulin lispro 100 unit/mL 0 unit SQ TIDM vial 11/21/20 02/26/21 History subcutaneous solution insulin syringe-needle U-100 0.5 ea 11/21/20 01/02/21 History mL 31 gauge x 5/16" (Easy Comfort Insulin Syringe) flecainide 100 mg tablet 100 mg PO Q12H #60 tab 11/25/20 02/26/21 Rx buspirone 15 mg tablet 15 mg PO BID tab 11/28/20 02/26/21 History pantoprazole 40 mg tablet,delayed 40 mg PO HS 12/01/20 02/26/21 History release pediatric multivitamin no.76 1 tab PO HS 12/01/20 02/26/21 History (Flintstones Complete) polysaccharide iron complex 150 mg 150 mg PO HS 12/01/20 02/26/21 History iron capsule (Ferrex) rivaroxaban 15 mg tablet (Xarelto) 15 mg PO QAM 12/01/20 02/26/21 History insulin glargine 100 unit/mL 5 unit SQ HS ml 12/27/20 02/26/21 History subcutaneous solution (Lantus U-100 Insulin) bumetanide 1 mg tablet 1 mg PO QAM 02/26/21 02/26/21 History calcium 650 mg-vitamin D3 12.5 1 tab PO AMHS 02/26/21 02/26/21 History mcg-vitamin K 40 mcg chewable tablet (Viactiv) fenofibrate 160 mg tablet 160 mg PO QAM 02/26/21 02/26/21 History folic acid 1 mg tablet 1 mg PO QAM 02/26/21 02/26/21 History multivitamin with minerals 2 tab PO QAM 02/26/21 02/26/21 History (Hair,Skin and Nails) Past Med/Surg History Medical History Acute kidney injury Acute renal failure (05/23/14) 2013. Kidneys recovered to around CKD III, then function worsened around 04/2020. Anemia due to chronic kidney disease Anxiety and depression Arthralgia of multiple sites Avascular necrosis of head of humerus Cardiac murmur Mild TR noted on 2019 echo. Chronic kidney disease, stage 4 (severe) F/U [facility]- nephrology Chronic low back pain Chronic rhinitis Chronic sinusitis Claustrophobia Diabetes Diabetic nephropathy Diabetic peripheral neuropathy Diabetic retinopathy, nonproliferative Diastolic congestive heart failure Euvolemic on exam at [facility] 09/02/20. 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 Per [facility] pulm 12/2019, "fairly stable from a pulmonary perspective. She is short of breath with any exertion, however a large part of this is likely related to obesity. Pulmonary functions done 1 year ago showed only a mild restrictive pattern. Diffusion was slightly decreased to 66%. One year ago she did have a normal arterial blood gas with no evidence of CO2 retention." Using PRN 3L, mostly using with exertion, not using every day. Morbid obesity Nasal septal deviation Nocturnal hypoxia Nontoxic multinodular goiter TRUMAN (obstructive sleep apnea) PRESCRIBED BIPAP-CAN'T TOLERATE-CLAUSTROPHOBIC Vitamin D deficiency Surgical History H/O section History of arthroscopy LEFT SHOULDER History of colonoscopy History of dermoid cyst excision History of esophagogastroduodenoscopy (EGD) History of mandibular surgery FULL ROM History of total shoulder replacement LEFT 07/19 2015 fracture Hx of cholecystectomy S/P shoulder surgery Left S/P tooth extraction Family History Daughter Bipolar disorder Multiple allergies Aunt Breast cancer Mother Diabetes Heart disease Hypertension Hyperthyroidism Father Hearing loss Gastric cancer Myocardial infarction Grandfather Heart disease Family/Other Hypertension Lung cancer Osteoporosis Stroke Brother Hypertension Grandmother Ovarian cancer Sister Migraine Denies family history of Prostate cancer Colorectal cancer Social History Smoking Status: Never smoker Second Hand Exposure: Yes (PARENTS SMOKED); Hx Alcohol Use: No Hx Substance Use: No Preferred Language: Barbadian Communication Ability: Effective Director Of Vendor Management Required: No Beliefs That Will Affect Care: None marital status: Single Current Living Situation: Spouse Current Living Situation Comment: Home w/ current occupational status: unemployed Feels Safe at Home: Yes Safety Concerns: Feels Safe At This Time Childhood Exposure to Second-Hand Smoke: Yes Dental Care, Regularly: Yes Physical Activity Frequency: Does not Exercise Seatbelt Use: never Sunscreen Use: Yes Assistive Devices: None Review of Systems Review of Systems: All systems reviewed & are unremarkable except as noted in HPI & below Physical Exam Physical Exam: General: patient resting comfortably, NAD, non-toxic in appearance, AA&O x 4, appears tired Skin: warm, dry, intact, no rashes or lesions HEENT: NC/AT, PERRL, EOMI, anicteric sclera, conjunctiva without injection, external ear normal to inspection and nontender, nares patent, moist mucus membranes, dentition intact, no oropharyngeal lesions, neck supple, trachea midline, no LAD, no thyromegaly, no JVD Heart: +S1/S2, regular with ectopy, no m/r/g Lungs: equal air entry bilaterally, faint crackles in bilateral bases, no rhonchi/wheezes Abd: +BS, soft, NT/ND, no masses/organomegaly/ascites Ext: warm, 2+ pulses in UE/LE bilaterally, no clubbing/cyanosis or edema, right wrist AV fistula with palpable thrill Neuro: nonfocal, patient AA&O x 4, speech intact, no facial droop, moving all extremities on command with equal strength 5/5 Results & Data Results & Data ([facility]) Vital Signs (Past 12 Hours) Vital Signs Temp Pulse Resp BP Pulse Ox 02/26/21 23:30 79 21 147/89 H 94 02/26/21 23:00 80 14 141/90 H 98 02/26/21 21:37 36.7 C 72 18 123/74 97 Laboratory Results Laboratory Results WBC 7.26 K/uL (4.8-10.8) 02/26/21 21:50 RBC 3.91 M/uL (4.2-5.4) L 02/26/21 21:50 Hgb 10.8 g/dL (12.0-16.0) L 02/26/21 21:50 Hct 33.9 % (37-47) L 02/26/21 21:50 MCV 86.7 fL (80-100) 02/26/21 21:50 MCH 27.6 pg (25-34) 02/26/21 21:50 MCHC 31.9 g/dL (32-36) L 02/26/21 21:50 RDW Std Deviation 54.2 fL (36.4-46.3) H 02/26/21 21:50 RDW Coeff of Chantal 17.0 % (11.5-14.5) H 02/26/21 21:50 Plt Count 216 K/uL (130-400) 02/26/21 21:50 MPV 10.4 fL (7.4-10.4) 02/26/21 21:50 Immature Gran % (Auto) 0.6 % 02/26/21 21:50 Neut % (Auto) 68.8 % 02/26/21 21:50 Lymph % (Auto) 24.5 % 02/26/21 21:50 [place] % (Auto) 5.1 % 02/26/21 21:50 Eos % (Auto) 0.6 % 02/26/21 21:50 Baso % (Auto) 0.4 % 02/26/21 21:50 Neut # (Auto) 5.00 K/uL (1.4-6.5) 02/26/21 21:50 Lymph # (Auto) 1.78 K/uL (1.2-3.4) 02/26/21 21:50 [place] # (Auto) 0.37 K/uL (0.11-0.59) 02/26/21 21:50 Eos # (Auto) 0.04 K/uL (0-0.5) 02/26/21 21:50 Baso # (Auto) 0.03 K/uL (0-0.2) 02/26/21 21:50 Immature Gran # (Auto) 0.04 K/uL (0.00-0.02) H 02/26/21 21:50 PT 13.5 Seconds (9.0-12.0) H 02/26/21 21:50 INR 1.4 (0.9-1.1) H 02/26/21 21:50 APTT 28.1 Seconds (21.0-31.0) 02/26/21 21:50 PTT Ratio 1.1 02/26/21 21:50 Sodium 144 mmol/L (136-145) 02/26/21 21:50 Potassium 3.7 mmol/L (3.5-5.1) 02/26/21 21:50 Chloride 109 mmol/L (98-107) H 02/26/21 21:50 Carbon Dioxide 27 mmol/L (21-32) 02/26/21 21:50 Anion Gap 8.0 (3-11) 02/26/21 21:50 BUN 64 mg/dl (7-18) H 02/26/21 21:50 Creatinine 2.70 mg/dl (0.6-1.2) H 02/26/21 21:50 Est Cr Clr Drug Dosing Not Reportable 02/26/21 21:50 Est GFR ( Amer) 21.0 ml/min 02/26/21 21:50 Est GFR (Non-Af Amer) 18.2 ml/min 02/26/21 21:50 BUN/Creatinine Ratio 23.6 (10-20) H 02/26/21 21:50 Glucose 117 mg/dl (70-99) H 02/26/21 21:50 POC Glucose 91 mg/dl (70-99) 02/27/21 02:07 Calcium 9.1 mg/dl (8.5-10.1) 02/26/21 21:50 Phosphorus 3.2 mg/dl (2.5-4.9) 02/26/21 21:50 Magnesium 1.7 mg/dl (1.8-2.4) L 02/26/21 21:50 Total Bilirubin 0.4 mg/dl (0.2-1) 02/26/21 21:50 AST 59 U/L (15-37) H 02/26/21 21:50 ALT 41 U/L (12-78) 02/26/21 21:50 Alkaline Phosphatase 87 U/L (45-117) 02/26/21 21:50 Troponin I 0.124 ng/ml (0-0.045) H* 02/26/21 21:50 NT-Pro-B Natriuret Pep 8888 pg/ml (0-900) H 02/26/21 21:50 Total Protein 6.5 gm/dl (6.4-8.2) 02/26/21 21:50 Albumin 3.1 gm/dl (3.4-5.0) L 02/26/21 21:50 Globulin 3.4 gm/dl (2.5-4.0) 02/26/21 21:50 Albumin/Globulin Ratio 0.9 (0.9-2) 02/26/21 21:50 COVID-19 Eval Order Covid19 at [facility] 02/26/21 23:26 SARS-CoV-2 (PCR) NEGATIVE (Negative) 02/26/21 23:26 Diagnostic Findings Chest x-rayby my interpretation, normal cardiac shadow, calcifications, no edema, infiltrate, pneumothorax. Status post left shoulder arthroplasty ECG Additional Comments: EKG was sinus rhythm at 84 bpm, left axis deviation, prior infarct suggested, no acute infarct, CO = 196, QRS = 102, QTC = 441, PACs present, no acute ischemic changes Code Status & VTE Plan VTE Prophylaxis Plan VTE Prophylaxis will be ordered: Yes PG Care Time/CCT Total # of Minutes Spent Total Time Spent with Patient: Total time spent is greater than 50% in coordination of care (as documented) at patient's floor/unit and/or counseling patient: Coding Level of Care Code 47407 Initial Inpt Care Lvl 3 Diagnoses Atrial fibrillation I48.91 Atrial fibrillation type: unspecified Elevated troponin I level R77.8 CKD (chronic kidney disease) N18.9 Chronic kidney disease stage: unspecified stage Hyperlipemia E78.5 Hypothyroidism E03.9 HTN (hypertension) I10 (1) Atrial fibrillation Atrial fibrillation type: unspecified Qualified Code(s): I48.91 - Unspecified atrial fibrillation (2) CKD (chronic kidney disease) Chronic kidney disease stage: unspecified stage Qualified Code(s): N18.9 - Chronic kidney disease, unspecified
[2021-02-27] MEDS ORDERED: ONDANSETRON INJ 2 MG/ML 2 ML VIAL IV PRN (02:13)
[2021-02-27] MEDS ORDERED: GLUCOSE 40% GEL 15 GM TUBE PO PRN (02:13)
[2021-02-27] MEDS ORDERED: GLUCAGON FOR INJ 1 MG VIAL SQ PRN (02:13)
[2021-02-27] MEDS ORDERED: DEXTROSE 50% 50 ML SYRINGE IV PRN (02:13)
[2021-02-27] MEDS ORDERED: CARBOHYDRATES FOR HYPOGLYCEMIA PO PRN (02:13)
[2021-02-27] MEDS ORDERED: GLUCOSE 10 TABS/TUBE PO PRN (02:13)
[2021-02-27] MEDS ORDERED: ACETAMINOPHEN 325 MG TAB PO PRN (02:13)
[2021-02-27] MEDS ORDERED: LORazepam 1 MG TAB PO PRN (02:13)
[2021-02-27 03:05] LABS: Magnesium 1.7 mg/dl (1.8-2.4); Phosphorus 3.2 mg/dl (2.5-4.9)
[2021-02-27] MEDS: LEVOTHYROXINE SODIUM 50 MCG TABLET PO SCH (06:12)
[2021-02-27 07:59] LABS: Basophils # (auto) 0.04 K/uL (0-0.2); Basophils % (auto) 0.8 %; Eosinophils # (auto) 0.09 K/uL (0-0.5); Eosinophils % (auto) 1.7 %; Hematocrit (blood only) 31.5 % (37-47); Hemoglobin 10.1 g/dL (12.0-16.0); Immature Granulocytes # (auto) 0.02 K/uL (0.00-0.02); Immature Granulocytes % (auto) 0.4 %; Lymphocytes % (auto) 40.4 %; Mean Corpuscular Hemoglobin 27.8 pg (25-34); Mean Corpuscular Hgb Conc 32.1 g/dL (32-36); Mean Corpuscular Volume 86.8 fL (80-100); Mean Platelet Volume 10.6 fL (7.4-10.4); Monocytes # (auto) 0.36 K/uL (0.11-0.59); Monocytes % (auto) 6.9 %; Neutrophils # (auto) 2.59 K/uL (1.4-6.5); Neutrophils % (auto) 49.8 %; Platelet Count 171 K/uL (130-400); RDW Coefficient of Variation 17.1 % (11.5-14.5); RDW Standard Deviation 54.5 fL (36.4-46.3); Red Blood Count 3.63 M/uL (4.2-5.4)
[2021-02-27] MEDS: INSULIN ASPART 100 UNITS/ML 3 ML PEN SC SCH ×4 (08:16→21:39)
[2021-02-27] MEDS: fluvoxaMINE MALEATE 50 MG TAB PO SCH ×2 (08:17→20:44)
[2021-02-27] MEDS: FENOFIBRATE NANOCRYSTALLIZED 145 MG TABLET PO SCH (08:18)
[2021-02-27] MEDS: busPIRone 15 MG TAB PO SCH ×2 (08:18→20:44)
[2021-02-27] MEDS: FOLIC ACID 1 MG TAB PO SCH (08:18)
--- NOTE | 2021-02-27 08:18 | Communication Note ---
Date of Service: February 27, 2021 Patient was seen and examined the same day as admission therefore will not be billing for this encounter. Initial symptoms 1 week ago Saturday seemed to recur with dizziness, initially aware of it but wasn't particularly significant. Much worse this Saturday. Similar to episode of a. fib/flutter in November which required cardioversion. Rates up to 160s today on ambulation. QRS complex wide but discussed with Dr Fontaine and telemetry reviewed and felt to be a. flutter with aberrant conduction at these times. Magnesium replaced and Flecainide increased per cardiology recommendations. Repeat labs in AM. Cardiology to discuss cardioversion again +/- ablation. Updated her daughter over the phone.
[2021-02-27 08:35] LABS: BUN Creatinine Ratio 25.1 (10-20); Creatinine Clr Calc Pharmacy 32.1 ml/min; Est GFR (African American) 24.9 ml/min; Est GFR (Non-African American) 21.5 ml/min; Potassium 3.4 mmol/L (3.5-5.1)
[2021-02-27 08:41] LABS: Troponin I 0.115 ng/ml (0-0.045)
--- NOTE | 2021-02-27 08:47 | XRay Report ---
XR chest 1V portable CLINICAL HISTORY: Chest Pain COMPARISON STUDY: Chest radiograph December 01, 2020. FINDINGS: Lung volumes are normal. Lungs are clear. There is no pneumothorax or pleural effusion. Car diac size is stable. Mediastinal contours are normal. There is no evidence for pulmonary edema. Left shoulder arthroplasty is partially imaged. IMPRESSION: No acute cardiopulmonary findings. No change in appearance of the chest. ACT 112: Negative or not required by law. Electronically signed by: Ahsan Rebolledo M.D. 02/27/2021 8:45 AM
[2021-02-27] MEDS ORDERED: FLECAINIDE ACETATE 100 MG TABLET PO SCH (09:00)
[2021-02-27] MEDS ORDERED: FLECAINIDE ACETATE 100 MG TABLET PO STA (11:09)
[2021-02-27] MEDS ORDERED: MAGNESIUM SULFATE / D5W 1 GM/100 ML BAG IV ONE (11:30)
[2021-02-27] MEDS: POTASSIUM CHLORIDE CRTAB 20 MEQ TABCR PO STA ×2 (12:24→13:21)
--- NOTE | 2021-02-27 12:24 | Cardiology Consultation ---
Date of Consultation February 27, 2021 Assessment & Plan (1) Atrial fibrillation and flutter: -admission EKG notes atrial flutter with 2-1 AV conduction. -she has demonstrated a atrial flutter with 1-1 conduction while physically active. -would increase flecainide to 150 mg b.i.d. -continue renally adjusted Xarelto. -would replace magnesium. -will discuss case with Dr. Parisi. (2) Elevated troponin I level: -likely a supply demand mismatch. -rapid ventricular response in the face of mild left ventricular hypertrophy. (3) HTN (hypertension): -adequate control on current regimen. (4) Hypercholesterolemia: -continue atorvastatin. History of Present Illness Attending Physician: Brendan Herron MD History of Present Illness Mrs. Arellano is a 60-year-old female admitted earlier today with complaints of fatigue and dyspnea. The monitor reveals atrial flutter with a variable ventricular response. This consultation was ordered to assist in her cardiac management. The patient was in her usual state of health until approximately 1 week prior to presentation. She was noticing dizziness and persistent fatigue. However, over the 48 hours prior to presentation, the patient demonstrated profound fatigue and dyspnea performing very minimal physical activity. Her daughter felt that her pulse was irregular and that she may be in atrial fibrillation. EKG performed at time of presentation notes atrial flutter with 2-1 conduction and controlled ventricular response. The patient's recent history began on September 02, 2020 when she was seen in preadmission testing. She was noted to be in atrial fibrillation and was immediately sent to our office and seen by Harmony Brooks PA-C. In short, the patient was felt to be an acceptable risk for placement of an arteriovenous fistula without further testing. She underwent that surgical procedure on September [address] Ricks. Her postoperative course was uneventful. The patient then underwent gastric bypass surgery on September 14, 2020 at [facility]. Unfortunately, she had a prolonged hospitalization due to acute on chronic renal failure. She required hemodialysis during that stay. She also developed atrial fibrillation with a rapid ventricular response. She was placed on amiodarone temporarily. She was also started on long-term anticoagulation with Xarelto 15 mg daily. She was hospitalized December 01 through the with atrial fibrillation and rapid ventricular response. The patient underwent successful electrical cardioversion and was discharged home in stable fashion. Currently, the patient is resting comfortably in bed without complaints. Past medical and surgical history 1. Hypertension 2. Mild left ventricle hypertrophy 3. Chronic diastolic CHF 4. Paroxysmal atrial fibrillation 5. Hypothyroidism 6. Nontoxic multi nodular goiter 7. Diabetes mellitus 8. Diabetic nephropathy 9. Diabetic retinopathy 10. Diabetic peripheral neuropathy 11. Chronic renal failure 12. Vitamin-D deficiency 13. Restrictive lung disease 14. Obesity 15. Obstructive sleep apnea 16. Anxiety/depression 17. Gastric bypass-August 2020 18. Right upper extremity AV fistula-August 2020 19. 20. Left total shoulder replacement-July 2015 21. Cholecystectomy Social history and lives with her No tobacco alcohol Family history No early coronary artery disease Review of systems A 10 point review systems was undertaken and negative except for that described above. Allergies Allergy/AdvReac Type Severity Reaction Status Date / Time promethazine Allergy Unknown BROKEN Verified 02/26/21 23:38 CAPILLARIES FACE Iodinated Contrast Media AdvReac Unknown Unknown Verified 02/26/21 23:38 [Iodinated Contrast- Oral and IV Dye] Home Medications Medication Instructions Recorded Confirmed Type zinc gluconate 100 mg tablet 100 mg PO HS 07/23/18 02/26/21 History lorazepam 1 mg tablet (Ativan) 1 mg PO BID PRN 03/24/19 02/26/21 History OneTouch Ultra Blue Test Strip #400 ea NS 01/26/20 01/02/21 Rx (blood sugar diagnostic) atorvastatin 80 mg tablet 80 mg PO HS #90 tab 01/26/20 02/26/21 Rx lancets (OneTouch UltraSoft #400 ea 02/17/20 01/02/21 Rx Lancets) trazodone 50 mg tablet 100 mg PO HS tab 04/26/20 02/26/21 History fluvoxamine 100 mg 150 mg PO AMHS cap 07/06/20 02/26/21 History capsule,extended release 24 hr levothyroxine 50 mcg tablet 50 mcg PO DAILYBB 08/10/20 02/26/21 History cholecalciferol (vitamin D3) 125 125 mcg PO DAILY 11/21/20 02/26/21 History mcg (5,000 unit) capsule insulin lispro 100 unit/mL 0 unit SQ TIDM vial 11/21/20 02/26/21 History subcutaneous solution insulin syringe-needle U-100 0.5 ea 11/21/20 01/02/21 History mL 31 gauge x 5/16" (Easy Comfort Insulin Syringe) flecainide 100 mg tablet 100 mg PO Q12H #60 tab 11/25/20 02/26/21 Rx buspirone 15 mg tablet 15 mg PO BID tab 11/28/20 02/26/21 History pantoprazole 40 mg tablet,delayed 40 mg PO HS 12/01/20 02/26/21 History release pediatric multivitamin no.76 1 tab PO HS 12/01/20 02/26/21 History (Flintstones Complete) polysaccharide iron complex 150 mg 150 mg PO HS 12/01/20 02/26/21 History iron capsule (Ferrex) rivaroxaban 15 mg tablet (Xarelto) 15 mg PO QAM 12/01/20 02/26/21 History insulin glargine 100 unit/mL 5 unit SQ HS ml 12/27/20 02/26/21 History subcutaneous solution (Lantus U-100 Insulin) bumetanide 1 mg tablet 1 mg PO QAM 02/26/21 02/26/21 History calcium 650 mg-vitamin D3 12.5 1 tab PO AMHS 02/26/21 02/26/21 History mcg-vitamin K 40 mcg chewable tablet (Viactiv) fenofibrate 160 mg tablet 160 mg PO QAM 02/26/21 02/26/21 History folic acid 1 mg tablet 1 mg PO QAM 02/26/21 02/26/21 History multivitamin with minerals 2 tab PO QAM 02/26/21 02/26/21 History (Hair,Skin and Nails) Patient History Medical History Acute kidney injury Acute renal failure (05/23/14) 2013. Kidneys recovered to around CKD III, then function worsened around 04/2020. Anemia due to chronic kidney disease Anxiety and depression Arthralgia of multiple sites Avascular necrosis of head of humerus Cardiac murmur Mild TR noted on 2019 echo. Chronic kidney disease, stage 4 (severe) F/U [facility]- nephrology Chronic low back pain Chronic rhinitis Chronic sinusitis Claustrophobia Diabetes Diabetic nephropathy Diabetic peripheral neuropathy Diabetic retinopathy, nonproliferative Diastolic congestive heart failure Euvolemic on exam at [facility] 09/02/20. 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 Per [facility] pulm 12/2019, "fairly stable from a pulmonary perspective. She is short of breath with any exertion, however a large part of this is likely related to obesity. Pulmonary functions done 1 year ago showed only a mild restrictive pattern. Diffusion was slightly decreased to 66%. One year ago she did have a normal arterial blood gas with no evidence of CO2 retention." Using PRN 3L, mostly using with exertion, not using every day. Morbid obesity Nasal septal deviation Nocturnal hypoxia Nontoxic multinodular goiter TRUMAN (obstructive sleep apnea) PRESCRIBED BIPAP-CAN'T TOLERATE-CLAUSTROPHOBIC Vitamin D deficiency Surgical History H/O section History of arthroscopy LEFT SHOULDER History of colonoscopy History of dermoid cyst excision History of esophagogastroduodenoscopy (EGD) History of mandibular surgery FULL ROM History of total shoulder replacement LEFT 07/19 2015 fracture Hx of cholecystectomy S/P shoulder surgery Left S/P tooth extraction Family History Daughter Bipolar disorder Multiple allergies Aunt Breast cancer Mother Diabetes Heart disease Hypertension Hyperthyroidism Father Hearing loss Gastric cancer Myocardial infarction Grandfather Heart disease Family/Other Hypertension Lung cancer Osteoporosis Stroke Brother Hypertension Grandmother Ovarian cancer Sister Migraine Denies family history of Prostate cancer Colorectal cancer Social History Smoking Status: Never smoker Second Hand Exposure: Yes (PARENTS SMOKED); Hx Alcohol Use: No Hx Substance Use: No Preferred Language: Swedish Communication Ability: Effective Infection Prevention Coordinator Required: No Beliefs That Will Affect Care: None marital status: Single Current Living Situation: Spouse Current Living Situation Comment: Home w/ current occupational status: unemployed Feels Safe at Home: Yes Safety Concerns: Feels Safe At This Time Childhood Exposure to Second-Hand Smoke: Yes Dental Care, Regularly: Yes Physical Activity Frequency: Does not Exercise Seatbelt Use: never Sunscreen Use: Yes Assistive Devices: None Physical Exam Physical Exam: In general this is an obese white female in no acute distress. HEENT exam is negative. Neck is supple with full carotid upstrokes. There are no carotid bruits. No JVD. There is no thyromegaly. Cardiovascular exam reveals a regular rhythm with distant heart sounds. No obvious murmurs. Lungs are clear without rales, rhonchi, or wheezes. Abdomen is soft and nontender without bruits. Extremities reveal a right upper extremity fistula with associated bruit. There is no pretibial edema. Results & Data ([facility]) Vital Signs (Past 12 Hours) Vital Signs Temp Pulse Pulse Resp BP BP BP 02/27/21 12:00 36.8 C 76 18 129/81 02/27/21 11:19 75 02/27/21 07:23 36.5 C 89 16 132/83 02/27/21 02:57 91 H 02/27/21 02:03 36.8 C 82 18 129/91 02/27/21 01:30 79 20 123/85 02/27/21 01:00 80 20 123/79 02/27/21 00:30 81 18 130/83 Pulse Ox 02/27/21 12:00 96 02/27/21 11:19 02/27/21 07:23 97 02/27/21 02:57 02/27/21 02:03 100 02/27/21 01:30 98 02/27/21 01:00 97 02/27/21 00:30 95 Laboratory Results CBC notes hemoglobin of 10.1, hematocrit 31.5, white count 5.2, and platelet cou nt [id number]. Electrolytes note a sodium of 143, potassium 3.4, chloride 111, bicarb 26, BUN 59, creatinine 2.35, and glucose of 93. Initial troponin was 0.124 with a follow-up value of 0.115. Magnesium level is low at 1.7. BNP is elevated at 8888. Diagnostic Findings EKG notes atrial flutter with 2-1 AV conduction and controlled ventricular respo nse. There is a left axis deviation and poor R-wave progression across the anterior precordium. Chest x-ray notes no acute disease. Left total shoulder replacement noted. PG Care Time/CCT Total # of Minutes Spent Total Time Spent with Patient: Total time spent is greater than 50% in coordination of care (as documented) at patient's floor/unit and/or counseling patient: Coding Level of Care Code 38429 Inpt Consult Level 4 Diagnoses Atrial fibrillation and flutter I48.91; I48.92 Elevated troponin I level R77.8 HTN (hypertension) I10 Hypercholesterolemia E78.00
[2021-02-27] MEDS: MAGNESIUM OXIDE 400 MG TAB PO SCH (13:21)
--- NOTE | 2021-02-27 14:10 | XCELERA ---
[id number]
--- NOTE | 2021-02-27 15:33 | Electrocardiogram Report ---
Test Reason : Blood Pressure : / mmHG Vent. Rate : 079 BPM Atrial Rate : 079 BPM P-R Int : 126 ms QRS Dur : 118 ms QT Int : 374 ms P-R-T Axes : 000 -41 038 degrees QTc Int : 428 ms Probable Atrial flutter with 2 to 1 block Left axis deviation Inferior infarct (cited on or before 08-NOV-2020) Anterolateral infarct (cited on or before 08-NOV-2020) Abnormal ECG When compared with ECG of 05-DEC-2020 07:41, Atrial flutter now present Questionable change in initial forces of Lateral leads Confirmed by Joshua Fontaine ([id number]) on 02/27/2021 3:33:31 PM Referred By: Andrés Lee Confirmed By:Joshua Fontaine
--- NOTE | 2021-02-27 15:37 | Electrocardiogram Report ---
Test Reason : Blood Pressure : / mmHG Vent. Rate : 084 BPM Atrial Rate : 084 BPM P-R Int : 196 ms QRS Dur : 102 ms QT Int : 374 ms P-R-T Axes : 000 -50 122 degrees QTc Int : 441 ms Poor data quality, interpretation may be adversely affected Probable Atrial flutter Left axis deviation Inferior infarct (cited on or before 08-NOV-2020) Anterolateral infarct (cited on or before 08-NOV-2020) Abnormal ECG When compared with ECG of 26-FEB-2021 21:46, (unconfirmed) No significant change Confirmed by Joshua Fontaine ([id number]) on 02/27/2021 3:36:33 PM Referred By: Andrés Lee Confirmed By:Joshua Fontaine
--- NOTE | 2021-02-27 15:48 | Electrocardiogram Report ---
Test Reason : Blood Pressure : / mmHG Vent. Rate : 152 BPM Atrial Rate : 144 BPM P-R Int : 000 ms QRS Dur : 154 ms QT Int : 318 ms P-R-T Axes : 000 -80 135 degrees QTc Int : 505 ms Poor data quality, interpretation may be adversely affected Atrial fibrillation with rapid ventricular response vs atrial flutter Left axis deviation Non-specific intra-ventricular conduction block Possible Lateral infarct (cited on or before 08-NOV-2020) Abnormal ECG When compared with ECG of 27-FEB-2021 07:45, Significant changes have occurred Confirmed by Joshua Fontaine ([id number]) on 02/28/2021 4:15:15 PM Referred By: Andrés Lee Confirmed By:Joshua Fontaine
[2021-02-27] MEDS: RIVAROXABAN 15 MG TAB PO SCH (17:08)
[2021-02-27] MEDS: FLECAINIDE ACETATE 100 MG TABLET PO SCH (20:45)
[2021-02-27] MEDS: PANTOprazole 40 MG TAB PO SCH (20:46)
[2021-02-27] MEDS: ATORVASTATIN 40 MG TAB PO SCH (20:46)
[2021-02-27] MEDS: IRON POLYSACCHARIDE COMPLEX 150 MG CAPSULE PO SCH (20:46)
[2021-02-27] MEDS: traZODone HCL 100 MG TAB PO SCH (20:47)
[2021-02-27] MEDS: INSULIN GLARGINE SOLOSTAR 100 UNITS/ML 3 ML PEN SC SCH (20:57)
[2021-02-28] MEDS: LEVOTHYROXINE SODIUM 50 MCG TABLET PO SCH (05:53)
--- NOTE | 2021-02-28 07:45 | Electrocardiogram Report ---
Test Reason : Blood Pressure : / mmHG Vent. Rate : 079 BPM Atrial Rate : 079 BPM P-R Int : 104 ms QRS Dur : 124 ms QT Int : 380 ms P-R-T Axes : 104 -46 040 degrees QTc Int : 435 ms Probable Atrial flutter with 2 to 1 block Left axis deviation Inferior infarct (cited on or before 08-NOV-2020) Anterolateral infarct (cited on or before 08-NOV-2020) Abnormal ECG When compared with ECG of 26-FEB-2021 22:40, (unconfirmed) No significant change Confirmed by Joshua Fontaine ([id number]) on 02/27/2021 3:48:31 PM Also confirmed by Joshua Fontaine ([id number]), editor house organ Baldemar Duran ([id number]) on 02/28/2021 7:44:46 AM Referred By: Andrés Lee Confirmed By:Joshua Fontaine
[2021-02-28] MEDS: MAGNESIUM OXIDE 400 MG TAB PO SCH (08:13)
[2021-02-28] MEDS: FOLIC ACID 1 MG TAB PO SCH (08:13)
[2021-02-28] MEDS: FLECAINIDE ACETATE 100 MG TABLET PO SCH (08:13)
[2021-02-28] MEDS: FENOFIBRATE NANOCRYSTALLIZED 145 MG TABLET PO SCH (08:13)
[2021-02-28] MEDS: busPIRone 15 MG TAB PO SCH ×2 (08:14→22:18)
[2021-02-28] MEDS: INSULIN ASPART 100 UNITS/ML 3 ML PEN SC SCH ×4 (08:18→21:30)
[2021-02-28 08:23] LABS: BUN Creatinine Ratio 24.7 (10-20); Calcium 8.9 mg/dl (8.5-10.1); Creatinine Clr Calc Pharmacy 34.7 ml/min; Est GFR (African American) 27.3 ml/min; Est GFR (Non-African American) 23.5 ml/min; Magnesium 2.1 mg/dl (1.8-2.4); Potassium 4.1 mmol/L (3.5-5.1)
[2021-02-28] MEDS: fluvoxaMINE MALEATE 50 MG TAB PO SCH ×2 (09:10→21:27)
[2021-02-28] MEDS: METOPROLOL TARTRATE 25 MG TAB PO SCH ×3 (10:37→21:28)
--- NOTE | 2021-02-28 12:19 | Cardiology Progress Note ---
Date of Service February 28, 2021 Assessment & Plan (1) Atrial fibrillation and flutter: Plan: -continues to demonstrate atrial flutter with 2-1 AV conduction. -atrial flutter with 1-1 conduction while physically active. -Dr. Parisi discontinued flecainide as he feels this may be the culprit. -metoprolol tartrate 12.5 mg q.[address] Parisi. -continue to observe on telemetry. (2) Elevated troponin I level: Plan: -likely a supply demand mismatch. -rapid ventricular response in the face of mild left ventricular hypertrophy. (3) HTN (hypertension): Plan: -adequate control on current regimen. (4) Hypercholesterolemia: Plan: -continue atorvastatin. Admission and Anticipated Discharge Date Admission Date: February 27, 2021 Subjective The patient is resting comfortably in bed without complaints of chest pain, dyspnea, or palpitations. She does note significant dyspnea and lightheadedness when ambulatory. Physical Exam Physical Exam: In general this is an obese white female in no acute distress. HEENT exam is negative. Neck is supple with full carotid upstrokes. There are no carotid bruits. No JVD. There is no thyromegaly. Cardiovascular exam reveals a regular rhythm with distant heart sounds. No obvious murmurs. Lungs are clear without rales, rhonchi, or wheezes. Abdomen is soft and nontender without bruits. Extremities reveal a right upper extremity fistula with associated bruit. There is no pretibial edema. Results & Data ([facility]) Vital Signs (Past 12 Hours) Vital Signs Temp Pulse Resp BP BP Pulse Ox 02/28/21 11:07 36.9 C 81 16 124/83 96 02/28/21 07:18 36.6 C 69 18 117/78 97 02/28/21 03:49 36.4 C L 68 18 118/77 97 PG Care Time/CCT Total # of Minutes Spent Total Time Spent with Patient: Total time spent is greater than 50% in coordination of care (as documented) at patient's floor/unit and/or counseling patient: Coding Level of Care Code 02979 Subseq Hosp Care Lvl 3 Diagnoses Atrial fibrillation and flutter I48.91; I48.92 Elevated troponin I level R77.8 HTN (hypertension) I10 Hypercholesterolemia E78.00
[2021-02-28] MEDS: RIVAROXABAN 15 MG TAB PO SCH (16:29)
--- NOTE | 2021-02-28 16:47 | Hospitalist Progress Note ---
Date of Service February 28, 2021 Assessment & Plan (1) Atrial fibrillation: Plan: Continued atrial flutter with rapid rates on exertion Continue on med/tele - troponins downtrending TTE - LVEF 55-60%, no wall motion abnormalities Continue rivaroxaban - Appreciate electrophysiology management with switching fecainide to metoprolol (2) Elevated troponin I level: Plan: Secondary to demand-ischemia in setting of rapid rate. No need to continue to trend as downtrending (3) CKD (chronic kidney disease): Plan: BUN and creatinine slightly higher than previous however within baseline range Avoid nephrotoxic agents Continue to monitor BUN, creatinine, electrolytes - now downtrending can restart bumex tomorrow (4) Hyperlipemia: Plan: Chronic. Continue atorvastatin (5) Hypothyroidism: Plan: Chronic. Continue Synthroid 50 mcg p.o. daily (6) HTN (hypertension): Plan: Blood pressure well controlled Continue to monitor Plan: F/E/N -Hep-Lock, monitor electrolytes, consistent carbohydrate/heart healthy diet Prophylaxison rivaroxaban, will continue Codefull Dispocontinue on medical telemetry Admission and Anticipated Discharge Date Admission Date: February 27, 2021 Subjective Ongoing dizziness and palpitations on any exertion when her heart rate increases. No chest pain, orthopnea or PND. Leg swelling at baseline (no increase since Bumex held). Review of Systems Review of Systems: All systems reviewed & are unremarkable except as noted in HPI & below Physical Exam Constitutional: WD/WN, vitals as above Respiratory: normal respiratory effort, lungs clear to auscultation Cardiovascular: Rate/Rhythm: regular rate and regular rhythm Heart Sounds: no murmur Gastrointestinal (Abdomen): normal bowel sounds, soft, nontender, no hepatosplenomegaly Skin: no rashes, warm and dry Psychiatric: A+Ox3, euthymic affect Results & Data Results & Data ([facility]) Vital Signs (Past 12 Hours) Vital Signs Temp Pulse Resp BP BP Pulse Ox 02/28/21 15:51 36.9 C 67 18 113/72 97 02/28/21 11:07 36.9 C 81 16 124/83 96 02/28/21 07:18 36.6 C 69 18 117/78 97 PG Care Time/CCT Total # of Minutes Spent Total Time Spent with Patient: Total time spent is greater than 50% in coordination of care (as documented) at patient's floor/unit and/or counseling patient: Coding Level of Care Code 77864 Subseq Hosp Care Lvl 2 Diagnoses Atrial fibrillation I48.91 Atrial fibrillation type: unspecified Elevated troponin I level R77.8 CKD (chronic kidney disease) N18.9 Chronic kidney disease stage: unspecified stage Hyperlipemia E78.5 Hypothyroidism E03.9 HTN (hypertension) I10 (1) Atrial fibrillation Atrial fibrillation type: unspecified Qualified Code(s): I48.91 - Unspecified atrial fibrillation (2) CKD (chronic kidney disease) Chronic kidney disease stage: unspecified stage Qualified Code(s): N18.9 - Chronic kidney disease, unspecified
--- NOTE | 2021-02-28 20:24 | Communication Note ---
Date of Service: February 28, 2021 Subjective: Nursing notified that the patient had a presyncopal event in the bathroom that was witnessed and that the STOPPER MAKER was there and guided her to the ground. They did not see her hit her head. When I talked to the patient she brought up that she thought she may have hit her head and that she felt somewhat off, she denied a headache. She also brought up that she was having some neck pain. Objective: telemetry, elevated HR, going into A. flutter and A. fib. HR 67 BP 120/78 Head: atraumatic normocephalic, no hematoma or tenderness Neuro: CN II-XII intact MSK: spinous process tenderness at C6 A/P: 60 yo F w/ A.fib/flutter on Eliquis with presyncopal event and increased HR with activity, assisted fall to the ground with potential that she struck her head and/or neck - CT head w/o contrast - CT neck w/o contrast - discussed using the bedside giovana johnson
[2021-02-28] MEDS: IRON POLYSACCHARIDE COMPLEX 150 MG CAPSULE PO SCH (21:28)
[2021-02-28] MEDS: traZODone HCL 100 MG TAB PO SCH (21:28)
[2021-02-28] MEDS: PANTOprazole 40 MG TAB PO SCH (21:29)
[2021-02-28] MEDS: ATORVASTATIN 40 MG TAB PO SCH (21:29)
[2021-02-28] MEDS: INSULIN GLARGINE SOLOSTAR 100 UNITS/ML 3 ML PEN SC SCH (21:30)
[2021-03-01] MEDS: METOPROLOL TARTRATE 25 MG TAB PO SCH ×4 (03:27→23:05)
[2021-03-01] MEDS: LEVOTHYROXINE SODIUM 50 MCG TABLET PO SCH (06:05)
--- NOTE | 2021-03-01 07:12 | CT Scan Report ---
CT head/brain wo con Clinical Indication: MN ^fall. Technique: Contiguous axial CT images of the head were acquired from the base of the skull to the leonel gigi without intravenous contrast administration. Images were viewed in brain, subdural and [facility]. Automated dose lowering techniques and/or adjustment according to patient size were utilized for this exam. Comparison: None available at the time of this dictation. Findings: Areas of decreased attenuation are present in the periventricular and subcortical white matter bilate rally consistent with small vessel ischemic disease. Generalized cerebral atrophy with commensurate e nlargement of the ventricles, sulci, and cisterns is also present. There is no acute intracranial hem orrhage or evidence of acute territorial infarction. No shift of the midline structures, mass effect, or extra-axial abnormalities are shown. Atherosclerotic calcifications are present in the intracran ial segments of the internal carotid arteries. Mild hyperostosis frontalis is noted. Soft tissue thickening seen in the sphenoid and to a lesser degree maxillary sinuses. The orbits appe ar normal. There are no acute fractures of the calvaria or scalp swelling. Impression: No acute intracranial hemorrhage, evidence of acute territorial infarction, or other acute intracrani al disease process. ACT 112: Negative or not required by law. Electronically signed by: Farhan Higgins M.D. 03/01/2021 7:10 AM
--- NOTE | 2021-03-01 07:15 | CT Scan Report ---
CT cervical spine wo con INDICATION: MN ^CALLED FOR PT ^fall, neck pain TECHNIQUE: Multidetector row helical CT of the cervical spine was performed without administration of intravenous contrast. Coronal and sagittal reformations were obtained. Automated dose lowering techn iques and/or adjustment according to patient size were utilized for this exam. Comparison: None available at the time of this dictation. FINDINGS: No acute fractures or subluxations are identified. There is straightening of the normal cervical lord osis. Multilevel degenerative disc disease is seen with associated neural foraminal stenosis, most pr ominent at C4-C5 and C5-C6. The prevertebral soft tissues are unremarkable. IMPRESSION: No evidence of acute injury. ACT 112: Negative or not required by law. Electronically signed by: Farhan Higgins M.D. 03/01/2021 7:14 AM
[2021-03-01 08:07] LABS: BUN Creatinine Ratio 23.1 (10-20); Calcium 8.9 mg/dl (8.5-10.1); Creatinine Clr Calc Pharmacy 31.1 ml/min; Est GFR (African American) 23.9 ml/min; Est GFR (Non-African American) 20.6 ml/min; Magnesium 2.1 mg/dl (1.8-2.4); Potassium 4.1 mmol/L (3.5-5.1)
[2021-03-01] MEDS ORDERED: BUMETANIDE 1 MG TAB PO SCH (09:00)
[2021-03-01] MEDS: INSULIN ASPART 100 UNITS/ML 3 ML PEN SC SCH ×4 (09:10→21:53)
[2021-03-01] MEDS: FOLIC ACID 1 MG TAB PO SCH (09:11)
[2021-03-01] MEDS: fluvoxaMINE MALEATE 50 MG TAB PO SCH ×2 (09:11→23:04)
[2021-03-01] MEDS: MAGNESIUM OXIDE 400 MG TAB PO SCH (09:12)
[2021-03-01] MEDS: busPIRone 15 MG TAB PO SCH ×2 (09:47→21:50)
[2021-03-01] MEDS: FENOFIBRATE NANOCRYSTALLIZED 145 MG TABLET PO SCH (09:47)
--- NOTE | 2021-03-01 11:38 | Hospitalist Progress Note ---
Date of Service March 01, 2021 Assessment & Plan (1) Atrial fibrillation: Plan: Continued atrial flutter with rapid rates on exertion Continue on med/tele - troponins downtrending TTE - LVEF 55-60%, no wall motion abnormalities Continue rivaroxaban - Appreciate electrophysiology management with switching flecainide to metoprolol (2) Elevated troponin I level: Plan: Secondary to demand-ischemia in setting of rapid rate. No need to continue to trend as downtrending (3) CKD (chronic kidney disease): Plan: BUN and creatinine slightly higher than previous however within baseline range Avoid nephrotoxic agents Continue to monitor BUN, creatinine, electrolytes - now downtrending can restart bumex tomorrow (4) Hyperlipemia: Plan: Chronic. Continue atorvastatin (5) Hypothyroidism: Plan: Chronic. Continue Synthroid 50 mcg p.o. daily (6) HTN (hypertension): Plan: Blood pressure well controlled Continue to monitor Plan: F/E/N -Hep-Lock, monitor electrolytes, consistent carbohydrate/heart healthy diet Prophylaxison rivaroxaban, will continue Codefull Dispocontinue on medical telemetry Admission and Anticipated Discharge Date Admission Date: February 27, 2021 Subjective Fall last night. CT head and c-spine negative for intracranial pathology or fracture. Feeling better this morning without dizziness but suspect combination of flecainide still in her system in addition to metoprolol likely caused hypotension causing syncope last night. No current chest pain, shortness of breath or palpitations. Review of Systems Review of Systems: All systems reviewed & are unremarkable except as noted in HPI & below Physical Exam Constitutional: WD/WN, vitals as above Respiratory: normal respiratory effort, lungs clear to auscultation Cardiovascular: Rate/Rhythm: regular rate and regular rhythm Heart Sounds: no murmur Gastrointestinal (Abdomen): normal bowel sounds, soft, nontender, no hepatosplenomegaly Skin: no rashes, warm and dry Psychiatric: A+Ox3, euthymic affect Results & Data Results & Data ([facility]) Vital Signs (Past 12 Hours) Vital Signs Temp Pulse Resp BP BP Pulse Ox 03/01/21 11:12 36.5 C 71 20 117/84 98 03/01/21 07:12 37 C 66 16 120/77 98 03/01/21 02:57 36.7 C 63 18 102/65 97 PG Care Time/CCT Total # of Minutes Spent Total Time Spent with Patient: Total time spent is greater than 50% in coordination of care (as documented) at patient's floor/unit and/or counseling patient: Coding Level of Care Code 86633 Subseq Hosp Care Lvl 2 Diagnoses Atrial fibrillation I48.91 Atrial fibrillation type: unspecified Elevated troponin I level R77.8 CKD (chronic kidney disease) N18.9 Chronic kidney disease stage: unspecified stage Hyperlipemia E78.5 Hypothyroidism E03.9 HTN (hypertension) I10 (1) Atrial fibrillation Atrial fibrillation type: unspecified Qualified Code(s): I48.91 - Unspecified atrial fibrillation (2) CKD (chronic kidney disease) Chronic kidney disease stage: unspecified stage Qualified Code(s): N18.9 - Chronic kidney disease, unspecified
--- NOTE | 2021-03-01 12:06 | Cardiology Progress Note ---
Date of Service March 01, 2021 Assessment & Plan (1) Atrial fibrillation and flutter: Plan: -continues to demonstrate atrial flutter with variable conduction. -Dr. Parisi discontinued flecainide as this may be the culprit. -continues on metoprolol tartrate 12.5 mg q.6 hours. -observe on telemetry while physically active today. -may need an electrical cardioversion. (2) Elevated troponin I level: Plan: -likely a supply/demand mismatch. -rapid ventricular response with mild left ventricular hypertrophy. (3) HTN (hypertension): Plan: -adequate control on current regimen. (4) Hypercholesterolemia: Plan: -continue atorvastatin. Admission and Anticipated Discharge Date Admission Date: February 27, 2021 Subjective The patient is resting comfortably at the bedside without complaints of chest pain, dyspnea, or palpitations. Did have a fall in the bathroom last evening. Workup was unremarkable. Physical Exam Physical Exam: In general this is an obese white female in no acute distress. HEENT exam is negative. Neck is supple with full carotid upstrokes. There are no carotid bruits. No JVD. There is no thyromegaly. Cardiovascular exam reveals a regular rhythm with distant heart sounds. No obvious murmurs. Lungs are clear without rales, rhonchi, or wheezes. Abdomen is soft and nontender without bruits. Extremities reveal a right upper extremity fistula with ass ociated bruit. There is no pretibial edema. Results & Data ([facility]) Vital Signs (Past 12 Hours) Vital Signs Temp Pulse Resp BP BP Pulse Ox 03/01/21 11:12 36.5 C 71 20 117/84 98 03/01/21 07:12 37 C 66 16 120/77 98 03/01/21 02:57 36.7 C 63 18 102/65 97 Diagnostic Findings panel monitor notes atrial flutter with a variable ventricular response. Fewer rapid episodes noted. PG Care Time/CCT Total # of Minutes Spent Total Time Spent with Patient: Total time spent is greater than 50% in coordination of care (as documented) at patient's floor/unit and/or counseling patient: Coding Level of Care Code 48171 Subseq Hosp Care Lvl 3 Diagnoses Atrial fibrillation and flutter I48.91; I48.92 Elevated troponin I level R77.8 HTN (hypertension) I10 Hypercholesterolemia E78.00
[2021-03-01] MEDS ORDERED: MICONAZOLE NITRATE POWDER 43 GM EXT PRN (16:28)
[2021-03-01] MEDS: RIVAROXABAN 15 MG TAB PO SCH (16:56)
[2021-03-01] MEDS: ATORVASTATIN 40 MG TAB PO SCH (21:50)
[2021-03-01] MEDS: PANTOprazole 40 MG TAB PO SCH (21:51)
[2021-03-01] MEDS: traZODone HCL 100 MG TAB PO SCH (21:52)
[2021-03-01] MEDS: INSULIN GLARGINE SOLOSTAR 100 UNITS/ML 3 ML PEN SC SCH (21:54)
[2021-03-01] MEDS: IRON POLYSACCHARIDE COMPLEX 150 MG CAPSULE PO SCH (23:04)
[2021-03-02] MEDS: METOPROLOL TARTRATE 25 MG TAB PO SCH ×4 (03:14→21:19)
[2021-03-02] MEDS: LEVOTHYROXINE SODIUM 50 MCG TABLET PO SCH (05:13)
[2021-03-02 07:04] LABS: Creatinine Clr Calc Pharmacy 28.1 ml/min; Est GFR (African American) 21.1 ml/min; Est GFR (Non-African American) 18.2 ml/min
[2021-03-02] MEDS: INSULIN ASPART 100 UNITS/ML 3 ML PEN SC SCH ×4 (08:03→21:26)
[2021-03-02] MEDS: FENOFIBRATE NANOCRYSTALLIZED 145 MG TABLET PO SCH (08:12)
[2021-03-02] MEDS: MAGNESIUM OXIDE 400 MG TAB PO SCH (08:13)
[2021-03-02] MEDS: FOLIC ACID 1 MG TAB PO SCH (08:15)
[2021-03-02] MEDS: fluvoxaMINE MALEATE 50 MG TAB PO SCH ×2 (08:15→21:21)
[2021-03-02] MEDS: busPIRone 15 MG TAB PO SCH ×2 (08:35→21:18)
--- NOTE | 2021-03-02 09:04 | Anesthesiology Consultation ---
Date of Service March 02, 2021 History Surgery Operation Date: 03/02/21 12:30 Proposed Procedures p Cardioversion Asset Analyst w/Anesthesia - Claude Parisi MD Height/Weight Height: 5 ft 7 in Weight: 112.5 kg Allergies Allergy/AdvReac Type Severity Reaction Status Date / Time promethazine Allergy Unknown BROKEN Verified 02/26/21 23:38 CAPILLARIES FACE Iodinated Contrast Media AdvReac Unknown Unknown Verified 02/26/21 23:38 [Iodinated Contrast- Oral and IV Dye] Medications Home Medications Medication Instructions Recorded Confirmed Last Taken zinc gluconate 100 mg tablet 100 mg PO HS 07/23/18 02/26/21 11/30/20 lorazepam 1 mg tablet (Ativan) 1 mg PO BID PRN 03/24/19 02/26/21 Unknown evidanzaTouch Ultra Blue Test Strip #400 ea NS 01/26/20 01/02/21 Unknown (blood sugar diagnostic) atorvastatin 80 mg tablet 80 mg PO HS #90 tab 01/26/20 02/26/21 11/30/20 lancets (evidanzaTouch UltraSoft #400 ea 02/17/20 01/02/21 Unknown Lancets) trazodone 50 mg tablet 100 mg PO HS tab 04/26/20 02/26/21 11/30/20 fluvoxamine 100 mg 150 mg PO [facility] cap 07/06/20 02/26/21 12/01/20 08:00 capsule,extended release 24 hr levothyroxine 50 mcg tablet 50 mcg PO DAILYBB 08/10/20 02/26/21 12/01/20 cholecalciferol (vitamin D3) 125 125 mcg PO DAILY 11/21/20 02/26/21 12/01/20 mcg (5,000 unit) capsule insulin lispro 100 unit/mL 0 unit SQ TIDM vial 11/21/20 02/26/21 12/01/20 subcutaneous solution insulin syringe-needle U-100 0.5 ea 11/21/20 01/02/21 Unknown mL 31 gauge x 5/16" (Easy Comfort Insulin Syringe) flecainide 100 mg tablet 100 mg PO Q12H #60 tab 11/25/20 02/26/21 12/01/20 08:00 buspirone 15 mg tablet 15 mg PO BID tab 11/28/20 02/26/21 12/01/20 08:00 pantoprazole 40 mg tablet,delayed 40 mg PO HS 12/01/20 02/26/21 11/30/20 release pediatric multivitamin no.76 1 tab PO HS 12/01/20 02/26/21 11/30/20 (Flintstones Complete) polysaccharide iron complex 150 mg 150 mg PO HS 12/01/20 02/26/21 11/30/20 iron capsule (Ferrex) rivaroxaban 15 mg tablet (Xarelto) 15 mg PO QAM 12/01/20 02/26/21 11/30/20 insulin glargine 100 unit/mL 5 unit SQ HS ml 12/27/20 02/26/21 Unknown subcutaneous solution (Lantus U-100 Insulin) bumetanide 1 mg tablet 1 mg PO QAM 02/26/21 02/26/21 Unknown calcium 650 mg-vitamin D3 12.5 1 tab PO [facility]HS 02/26/21 02/26/21 Unknown mcg-vitamin K 40 mcg chewable tablet (Viactiv) fenofibrate 160 mg tablet 160 mg PO QAM 02/26/21 02/26/21 Unknown folic acid 1 mg tablet 1 mg PO QAM 02/26/21 02/26/21 Unknown multivitamin with minerals 2 tab PO QAM 02/26/21 02/26/21 Unknown (Hair,Skin and Nails) Active Medications Generic Name Dose Route Start Last Admin Trade Name Freq PRN Reason Stop Dose Admin Acetaminophen 650 mg 02/27/21 02:13 02/28/21 22:18 Acetaminophen 325 Mg Tab PO 03/29/21 02:12 650 mg Q4H PRN Administration pain/fever Atorvastatin Calcium 80 mg 02/27/21 21:00 03/01/21 21:50 Atorvastatin 40 Mg Tab PO 03/29/21 20:59 80 mg HS JOHNATHON Administration Buspirone HCl 15 mg 02/27/21 09:00 03/02/21 08:35 Buspirone 15 Mg Tab PO 03/29/21 08:59 15 mg BID JOHNATHON Administration Fenofibrate 145 mg 02/27/21 09:00 03/02/21 08:12 Fenofibrate Nanocrystallized 145 Mg Tablet PO 03/29/21 08:59 145 mg QAM JOHNATHON Administration Fluvoxamine Maleate 150 mg 02/27/21 09:00 03/02/21 08:15 Fluvoxamine Maleate 50 Mg Tab PO 03/29/21 08:59 150 mg BID JOHNATHON Administration Folic Acid 1 mg 02/27/21 09:00 03/02/21 08:15 Folic Acid 1 Mg Tab PO 03/29/21 08:59 1 mg QAM JOHNATHON Administration Insulin Aspart 0 units 02/27/21 07:30 03/02/21 08:39 Insulin Aspart 100 Units/Ml 3 Ml Pen SC 03/29/21 07:29 Not Given ACHS JOHNATHON Insulin Glargine 5 units 02/27/21 21:00 03/01/21 21:54 Insulin Glargine Solostar 100 Units/Ml 3 Ml Pen SC 03/29/21 20:59 5 units HS JOHNATHON Administration Levothyroxine Sodium 50 mcg 02/27/21 06:30 03/02/21 05:13 Levothyroxine Sodium 50 Mcg Tablet PO 03/29/21 06:29 50 mcg DAILYBB JOHNATHON Administration Magnesium Oxide 400 mg 02/27/21 11:00 03/02/21 08:13 Magnesium Oxide 400 Mg Tab PO 03/29/21 10:59 400 mg QAM JOHNATHON Administration Metoprolol Tartrate 12.5 mg 02/28/21 09:45 03/02/21 08:14 Metoprolol Tartrate 25 Mg Tab PO 03/30/21 09:44 12.5 mg Q6H JOHNATHON Administration Pantoprazole Sodium 40 mg 02/27/21 21:00 03/01/21 21:51 Pantoprazole 40 Mg Tab PO 03/29/21 20:59 40 mg HS JOHNATHON Administration Polysaccharide Iron Complex 150 mg 02/27/21 21:00 03/01/21 23:04 Iron Polysaccharide Complex 150 Mg Capsule PO 03/29/21 20:59 150 mg HS JOHNATHON Administration Rivaroxaban 15 mg 02/27/21 16:30 03/01/21 16:56 Rivaroxaban 15 Mg Tab PO 03/29/21 16:29 15 mg QDD JOHNATHON Administration Trazodone HCl 100 mg 02/27/21 21:00 03/01/21 21:52 Trazodone Hcl 100 Mg Tab PO 03/29/21 20:59 100 mg HS JOHNATHON Administration Past Medical History Medical History Acute kidney injury Acute renal failure (05/23/14) 2013. Kidneys recovered to around CKD III, then function worsened around 04/2020. Anemia due to chronic kidney disease Anxiety and depression Arthralgia of multiple sites Avascular necrosis of head of humerus Cardiac murmur Mild TR noted on 2019 echo. Chronic kidney disease, stage 4 (severe) F/U [facility]- nephrology Chronic low back pain Chronic rhinitis Chronic sinusitis Claustrophobia Diabetes Diabetic nephropathy Diabetic peripheral neuropathy Diabetic retinopathy, nonproliferative Diastolic congestive heart failure Euvolemic on exam at [facility] 09/02/20. 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 Per [facility] pulm 12/2019, "fairly stable from a pulmonary perspective. She is short of breath with any exertion, however a large part of this is likely related to obesity. Pulmonary functions done 1 year ago showed only a mild restrictive pattern. Diffusion was slightly decreased to 66%. One year ago she did have a normal arterial blood gas with no evidence of CO2 retention." Using PRN 3L, mostly using with exertion, not using every day. Morbid obesity Nasal septal deviation Nocturnal hypoxia Nontoxic multinodular goiter TRUMAN (obstructive sleep apnea) PRESCRIBED BIPAP-CAN'T TOLERATE-CLAUSTROPHOBIC Vitamin D deficiency Past Family History Family History Daughter Bipolar disorder Multiple allergies Aunt Breast cancer Mother Diabetes Heart disease Hypertension Hyperthyroidism Father Hearing loss Gastric cancer Myocardial infarction Grandfather Heart disease Family/Other Hypertension Lung cancer Osteoporosis Stroke Brother Hypertension Grandmother Ovarian cancer Sister Migraine Denies family history of Prostate cancer Colorectal cancer Past Surgical History Surgical History H/O section History of arthroscopy LEFT SHOULDER History of colonoscopy History of dermoid cyst excision History of esophagogastroduodenoscopy (EGD) History of mandibular surgery FULL ROM History of total shoulder replacement LEFT 07/19 2015 fracture Hx of cholecystectomy S/P shoulder surgery Left S/P tooth extraction Social History Smoking Status: Never smoker Hx Alcohol Use: No Alcohol type: beer alcohol intake frequency: holidays/special occasions only Hx Substance Use: No Physical Exam Vital Signs Last Vital Signs Temp 36.6 C 03/02/21 07:43 Pulse 72 03/02/21 07:43 Resp 16 03/02/21 07:43 BP 136/86 03/02/21 07:43 Pulse Ox 99 03/02/21 07:43 Testing Laboratory Results 02/27/21 07:31 03/02/21 05:47 PT 13.5 Seconds (9.0-12.0) H 02/26/21 21:50 INR 1.4 (0.9-1.1) H 02/26/21 21:50 APTT 28.1 Seconds (21.0-31.0) 02/26/21 21:50 03/02/21 03/01/21 03/01/21 07:17 21:48 21:01 POC Glucose 85 201 H 138 H
[2021-03-02] MEDS ORDERED: ATROPINE SULFATE 0.1 MG/ML 10ML SYR IV PRN (11:59)
[2021-03-02] MEDS ORDERED: ePHEDrine sulfate 50 MG/ML AMP IV PRN (11:59)
--- NOTE | 2021-03-02 12:15 | Cardioversion ---
Date of Service March 02, 2021 PG Electrical Cardioversion Rp Electrical Cardioversion Report Procedure performed: Cardioversion Indication: The patient is a 60-year-old woman with a history of symptomatic atrial flutter. Staff receivable executive: Randy Parisi MD Procedure in detail: The patient was informed of the risks benefits and alternatives to the intended procedure. She understood such which proceed. She was taken to the cardiac catheterization suite holding area. A general anesthetic was administered by the Anesthesiology Service. Once appropriately anesthetized, an initial delivery of 50 J which resulted in a transition to atrial fibrillation. A second application of 200 J did not return her to sinus rhythm. A third application of 360 J returned her to a sinus rhythm. The patient tolerated procedure well, there were no immediate complications. Patient was neurologically intact subsequent to the procedure. Impression: Successful cardioversion from atrial flutter to normal sinus rhythm Coding Level of Care Code Cardioversion, elective Additional Codes Electrical Cardioversion Report ([id number])
[2021-03-02] MEDS ORDERED: LIDOCAINE 2% MPF LOCAL 5 ML VIAL INFIL ONE (12:20)
[2021-03-02] MEDS ORDERED: PROPOFOL IV EMULSION 10 MG/ML 20 ML VIAL IV ONE (12:20)
--- NOTE | 2021-03-02 13:04 | Anesthesiology Progress Note ---
Date of Service March 02, 2021 Anesthesia Post Procedure Vital Signs Vital Signs: Temp Pulse Pulse Resp BP BP Pulse Ox 03/02/21 12:27 55 L 18 126/70 96 03/02/21 12:13 50 L 18 138/66 94 03/02/21 12:00 73 20 172/80 H 100 03/02/21 11:09 36.8 C 74 14 172/78 H 97 03/02/21 07:43 36.6 C 72 16 136/86 99 03/02/21 07:32 67 03/02/21 03:55 36.3 C L 70 18 124/80 99 03/02/21 03:13 149/84 H 03/01/21 23:39 36.8 C 71 18 92/62 L 99 03/01/21 19:18 36.9 C 71 20 112/72 97 03/01/21 17:14 36.8 C 75 16 115/79 98 Pain Intensity Bilateral Head: Pain Intensity: 5 Transfer of Care Handoff Completed per policy Notes Mental Status: alert / awake / arousable Patient Amnestic to Procedure: Yes Nausea / Vomiting: adequately controlled Pain: adequately controlled Airway Patency, RR, SpO2: stable & adequate BP & HR: stable & adequate Hydration State: stable & adequate Anesthetic Complications: no major complications apparent
[2021-03-02] MEDS: RIVAROXABAN 15 MG TAB PO SCH (16:59)
[2021-03-02] MEDS: IRON POLYSACCHARIDE COMPLEX 150 MG CAPSULE PO SCH (21:21)
[2021-03-02] MEDS: traZODone HCL 100 MG TAB PO SCH (21:21)
[2021-03-02] MEDS: ATORVASTATIN 40 MG TAB PO SCH (21:22)
[2021-03-02] MEDS: PANTOprazole 40 MG TAB PO SCH (21:22)
[2021-03-02] MEDS: INSULIN GLARGINE SOLOSTAR 100 UNITS/ML 3 ML PEN SC SCH (21:26)
--- NOTE | 2021-03-02 21:28 | Cardiology Progress Note ---
Date of Service March 02, 2021 Assessment & Plan (1) Atrial fibrillation and flutter: Plan: Cardioverted today. Will continue metoprolol and xarelto. Likely d/c tomorrow if she maintains sinus. Hopefully more ambulatory tonight (2) Elevated troponin I level: Plan: -likely a supply/demand mismatch. -rapid ventricular response with mild left ventricular hypertrophy. (3) HTN (hypertension): Plan: -adequate control on current regimen. (4) Hypercholesterolemia: Plan: -continue atorvastatin. Admission and Anticipated Discharge Date Admission Date: February 27, 2021 Subjective Feeling about the same. No real ambulation in the past 24 hours. No physical therapy. Physical Exam Physical Exam: Alert. Normal respiratory effort Heart rhythm regular Results & Data ([facility]) Vital Signs (Past 12 Hours) Vital Signs Temp Pulse Pulse Resp BP BP Pulse Ox 03/02/21 19:22 36.8 C 63 16 119/77 97 03/02/21 15:48 36.7 C 60 16 109/74 99 03/02/21 15:45 62 144/83 H 03/02/21 14:59 56 L 03/02/21 14:33 60 03/02/21 12:27 55 L 18 126/70 96 03/02/21 12:13 50 L 18 138/66 94 03/02/21 12:00 73 20 172/80 H 100 03/02/21 11:09 36.8 C 74 14 172/78 H 97 Laboratory Results Abnormal Lab Results 03/01/21 03/02/21 03/02/21 21:48 05:47 07:17 Creatinine 2.69 H Est Cr Clr Drug Dosing 28.1 Est GFR ( Amer) 21.1 Est GFR (Non-Af Amer) 18.2 POC Glucose 201 H 85 03/02/21 03/02/21 03/02/21 12:53 16:25 20:07 Creatinine Est Cr Clr Drug Dosing Est GFR ( Amer) Est GFR (Non-Af Amer) POC Glucose 92 139 H 160 H PG Care Time/CCT Total # of Minutes Spent Total Time Spent with Patient: Total time spent is greater than 50% in coordination of care (as documented) at patient's floor/unit and/or counseling patient: Coding Level of Care Code 92406 Subseq Hosp Care Lvl 2 Diagnoses Atrial fibrillation and flutter I48.91; I48.92 Elevated troponin I level R77.8 HTN (hypertension) I10 Hypercholesterolemia E78.00
--- NOTE | 2021-03-02 23:50 | Hospitalist Progress Note ---
Date of Service March 02, 2021 Assessment & Plan (1) Atrial fibrillation: Plan: In NSR s/p cardioversion 03/02 Continue on med/tele - troponins downtrending TTE - LVEF 55-60%, no wall motion abnormalities Continue rivaroxaban - Appreciate electrophysiology management, s/p cardioversion on metoprolol, possible discharge tomorrow is maintains NSR (2) Elevated troponin I level: Plan: Secondary to demand-ischemia in setting of rapid rate. No need to continue to trend as downtrending (3) CKD (chronic kidney disease): Plan: BUN and creatinine slightly higher than previous however within baseline range Avoid nephrotoxic agents Continue to monitor BUN, creatinine, electrolytes - restarted Bumex Q2D, does not appear to need this daily (4) Hyperlipemia: Plan: Chronic. Continue atorvastatin (5) Hypothyroidism: Plan: Chronic. Continue Synthroid 50 mcg p.o. daily (6) HTN (hypertension): Plan: Blood pressure well controlled Continue to monitor Plan: F/E/N -Hep-Lock, monitor electrolytes, consistent carbohydrate/heart healthy diet Prophylaxison rivaroxaban, will continue Codefull Dispocontinue on medical telemetry, needs repeat PT prior to discharge Admission and Anticipated Discharge Date Admission Date: February 27, 2021 Anticipated date of discharge: 03/03/21 Subjective Patient seen post cardioversion. Having some burning pain since cardioversion which is improving. No dizziness on standing but hasn't ambulated much since cardioversion. Refused PT this morning while NPO. Review of Systems Review of Systems: All systems reviewed & are unremarkable except as noted in HPI & below Physical Exam Constitutional: WD/WN, vitals as above Respiratory: normal respiratory effort, lungs clear to auscultation Cardiovascular: Rate/Rhythm: regular rate and regular rhythm Heart Sounds: no murmur Gastrointestinal (Abdomen): normal bowel sounds, soft, nontender, no hepatosplenomegaly Skin: no rashes, warm and dry Psychiatric: A+Ox3, euthymic affect Results & Data Results & Data ([facility]) Vital Signs (Past 12 Hours) Vital Signs Temp Pulse Pulse Resp BP BP Pulse Ox 03/02/21 23:29 36.6 C 59 L 18 142/86 H 97 03/02/21 23:19 56 L 03/02/21 19:22 36.8 C 63 16 119/77 97 03/02/21 15:48 36.7 C 60 16 109/74 99 03/02/21 15:45 62 144/83 H 03/02/21 14:59 56 L 03/02/21 14:33 60 03/02/21 12:27 55 L 18 126/70 96 03/02/21 12:13 50 L 18 138/66 94 03/02/21 12:00 73 20 172/80 H 100 PG Care Time/CCT Total # of Minutes Spent Total Time Spent with Patient: Total time spent is greater than 50% in coordination of care (as documented) at patient's floor/unit and/or counseling patient: Coding Level of Care Code 46621 Subseq Hosp Care Lvl 2 Diagnoses Atrial fibrillation I48.91 Atrial fibrillation type: unspecified Elevated troponin I level R77.8 CKD (chronic kidney disease) N18.9 Chronic kidney disease stage: unspecified stage Hyperlipemia E78.5 Hypothyroidism E03.9 HTN (hypertension) I10 (1) Atrial fibrillation Atrial fibrillation type: unspecified Qualified Code(s): I48.91 - Unspecified atrial fibrillation (2) CKD (chronic kidney disease) Chronic kidney disease stage: unspecified stage Qualified Code(s): N18.9 - Chronic kidney disease, unspecified
[2021-03-03] MEDS: METOPROLOL TARTRATE 25 MG TAB PO SCH ×3 (04:15→16:07)
[2021-03-03] MEDS: LEVOTHYROXINE SODIUM 50 MCG TABLET PO SCH (06:17)
--- NOTE | 2021-03-03 06:32 | Electrocardiogram Report ---
Test Reason : Blood Pressure : / mmHG Vent. Rate : 073 BPM Atrial Rate : 073 BPM P-R Int : 110 ms QRS Dur : 126 ms QT Int : 392 ms P-R-T Axes : 071 -39 027 degrees QTc Int : 431 ms Possible Atrial flutter Left axis deviation Non-specific intra-ventricular conduction block Inferior infarct , age undetermined Abnormal ECG When compared with ECG of 27-FEB-2021 09:51, HR has decreased by 79 bpm Rhythm is now sinus Confirmed by Amaury Perry ([id number]) on 03/03/2021 6:32:09 AM Referred By: Andrés Lee Confirmed By:Amaury Perry
--- NOTE | 2021-03-03 06:38 | Electrocardiogram Report ---
Test Reason : Blood Pressure : / mmHG Vent. Rate : 052 BPM Atrial Rate : 052 BPM P-R Int : 234 ms QRS Dur : 120 ms QT Int : 468 ms P-R-T Axes : 067 -30 024 degrees QTc Int : 435 ms Sinus bradycardia with 1st degree A-V block with sinus arrhythmia Left axis deviation Poor R wave progression, consider anterior MD vs. lead placement vs. LVH Abnormal ECG When compared with ECG of 02-MAR-2021 10:59, Sinus rhythm is now Present Confirmed by Amaury Perry ([id number]) on 03/03/2021 6:37:51 AM Referred By: Andrés Lee Confirmed By:Amaury Perry
[2021-03-03] MEDS: INSULIN ASPART 100 UNITS/ML 3 ML PEN SC SCH ×3 (08:10→16:50)
[2021-03-03] MEDS: MAGNESIUM OXIDE 400 MG TAB PO SCH (08:13)
[2021-03-03] MEDS: fluvoxaMINE MALEATE 50 MG TAB PO SCH (08:13)
[2021-03-03] MEDS: FOLIC ACID 1 MG TAB PO SCH (08:13)
[2021-03-03] MEDS: busPIRone 15 MG TAB PO SCH (08:13)
[2021-03-03] MEDS: FENOFIBRATE NANOCRYSTALLIZED 145 MG TABLET PO SCH (08:14)
[2021-03-03] MEDS ORDERED: BUMETANIDE 1 MG TAB PO SCH (09:00)
[2021-03-03 09:14] LABS: BUN Creatinine Ratio 21.5 (10-20); Creatinine Clr Calc Pharmacy 28.8 ml/min; Est GFR (African American) 21.9 ml/min; Est GFR (Non-African American) 18.9 ml/min; Magnesium 2.3 mg/dl (1.8-2.4); Potassium 4.2 mmol/L (3.5-5.1)
--- NOTE | 2021-03-03 10:13 | Electrocardiogram Report ---
Test Reason : Blood Pressure : / mmHG Vent. Rate : 056 BPM Atrial Rate : 056 BPM P-R Int : 242 ms QRS Dur : 122 ms QT Int : 466 ms P-R-T Axes : -05 092 046 degrees QTc Int : 449 ms Sinus bradycardia with 1st degree A-V block with Premature atrial complexes Rightward axis Non-specific intra-ventricular conduction delay Borderline ECG When compared with ECG of 02-MAR-2021 12:27, Premature atrial complexes are now Present QRS axis Shifted right Confirmed by Joshua Fontaine ([id number] on 03/03/2021 10:12:50 AM Referred By: Andrés Lee Confirmed By:Joshua Fontaine
--- NOTE | 2021-03-03 12:12 | Discharge Summary ---
Date of Service March 03, 2021 Admission HPI Per Admitting Provider Jerri Arellano is a 60-year-old female with multiple medical problems, most notably history of diabetes, hypertension, hyperlipidemia, atrial fibrillation presenting with weakness, fatigue, elevated troponin. Patient states that she has been feeling ill for the last 8 days. She complains of lightheadedness as well as generalized weakness, fatigue, dyspnea on exertion. She states that she is having difficulty performing her ADLs due to to feeling so tired. She states that she has been requiring assistance with ambulation and showering. Yesterday afternoon around 1430 she states that she was unable to even hold her head up in the shower due to extreme fatigue. She denies fevers, chills, chest pain, palpitations, cough, shortness of breath at rest. She denies edema, orthopnea, weight loss. She denies abdominal pain or bloating, nausea, vomiting, diarrhea, constipation. She states that she is eating well and drinking enough fluids. Her daughter is at bedside and states that she checked patient's pulse before arrival and it was very irregular, question of atrial fibrillation. Patient was first diagnosed with atrial fibrillation in August 2018. She had a cardioversion performed this November and has felt fine since. No additional complaints at this time ER course: Aspirin Principal Diagnosis Atrial flutter with rapid ventricular rate Discharge Exam Constitutional WD/WN, vitals as above Respiratory normal respiratory effort, lungs clear to auscultation Cardiovascular Rate/Rhythm: regular rate and regular rhythm Heart Sounds: no murmur Gastrointestinal (Abdomen) normal bowel sounds, soft, nontender, no hepatosplenomegaly Skin no rashes, warm and dry Psychiatric A+Ox3, euthymic affect Discharge Data Allergies Allergy/AdvReac Type Severity Reaction Status Date / Time promethazine Allergy Unknown BROKEN Verified 03/13/21 15:46 CAPILLARIES FACE Iodinated Contrast Media AdvReac Unknown Unknown Verified 03/13/21 15:46 [Iodinated Contrast- Oral and IV Dye] Consultations 02/26/21 22:58 ED Decision to Admit Stat 02/27/21 07:36 Consult Cardiology Routine Procedures Performed Operation Date: 03/02/21 12:30 Actual Procedures p Cardioversion - Claude Parisi MD Ordered Studies 02/28/21 20:17 CT cervical spine wo con INDICATION: MN ^CALLED FOR PT ^fall, neck pain TECHNIQUE: Multidetector row helical CT of the cervical spine was performed without administration of intravenous contrast. Coronal and sagittal reformations were obtained. Automated dose lowering techniques and/or adjustment according to patient size were utilized for this exam. Comparison: None available at the time of this dictation. FINDINGS: No acute fractures or subluxations are identified. There is straightening of the normal cervical lordosis. Multilevel degenerative disc disease is seen with associated neural foraminal stenosis, most prominent at C4-C5 and C5-C6. The prevertebral soft tissues are unremarkable. IMPRESSION: No evidence of acute injury. CT head/brain wo con Urgent Clinical Indication: MN ^fall. Technique: Contiguous axial CT images of the head were acquired from the base of the skull to the vertex without intravenous contrast administration. Images were viewed in brain, subdural and bone windows. Automated dose lowering techniques and/or adjustment according to patient size were utilized for this exam. Comparison: None available at the time of this dictation. Findings: Areas of decreased attenuation are present in the periventricular and subcortical white matter bilaterally consistent with small vessel ischemic dise ase. Generalized cerebral atrophy with commensurate enlargement of the ventricles, sulci, and cisterns is also present. There is no acute intracranial hemorrhage or evidence of acute territorial infarction. No shift of the midline structures, mass effect, or extra-axial abnormalities are shown. Atherosclerotic calcifications are present in the intracranial segments of the internal carotid arteries. Mild hyperostosis frontalis is noted. Soft tissue thickening seen in the sphenoid and to a lesser degree maxillary sinuses. The orbits appear normal. There are no acute fractures of the calvaria or scalp swelling. Impression: No acute intracranial hemorrhage, evidence of acute territorial infarction, or other acute intracranial disease process. Hospital Course (1) Atrial fibrillation: Jerri Arellano is a 60 year old female admitted to [facility] from February 27 - 2020 due to lightheadedness, generalized weakness, fatigue and shortness of breath on exertion. She was diagnosed with recurrence of your atrial flutter with rapid ventricular rate. Care was co- ordinated with cardiology. This was initially treated with switching flecainide for metoprolol but ultimately required cardioversion performed on March 02, 2021. She will continue on metoprolol as started during her current hospitaliz ation. She will follow up with cardiology for ongoing management of her paroxysmal atrial flutter. (2) Elevated troponin I level: (3) CKD (chronic kidney disease): (4) Hyperlipemia: (5) Hypothyroidism: (6) HTN (hypertension): Total Time Total Time Spent Total Time Spent (In Minutes): 35 Discharge Plan Discharge Items Patient Disposition: Home - Self-Care Reason For Visit: FATIGUE, ELEVATED TROPONIN Discharge Diagnosis: Atrial flutter with rapid ventricular rate Activity: Resume your previous activity Non-emergency contact: Communications Assistant Call non-emergency contact if: you have any medication questions and your symptoms worsen Follow-up/Referrals: Joshua Fontaine MD [Physician] - (to be arranged by cardiology) William Lewis MD [Primary Care Provider] - (No follow up required) Diet: Carb Consistent or DM2 and Heart Healthy Addtl Attending Provider Instructions: You were admitted to [facility] from February 27 - 2020 due to lightheadedness, generalized weakness, fatigue and shortness of breath on exertion. You were diagnosed with recurrence of your atrial flutter with rapid ventricular rate. This was initially treated with adjustment of your medications but ultimately required cardioversion performed on March 02, 2021. Please continue on metoprolol as started during your current hospitalization. Follow up with cardiology for ongoing management of your paroxysmal atrial flutter. Pending Studies at Discharge: No Stand-Alone Forms: My [facility], Smoking Cessation Medications and DC Order Prescriptions: Continued atorvastatin 80 mg tablet 80 mg PO HS Qty: 90 RF: 3 (DME) OneTouch Ultra Blue Test Strip Strip See Dose Instructions .ROUTE .MEDSUPPLY Qty: 400 RF: 3 (DME) lancets [OneTouch UltraSoft Lancets] [facility] See Rx Instructions .ROUTE .MEDSUPPLY Qty: 400 RF: 3 fluvoxamine 100 mg capsule,extended release 24hr 150 mg PO AMHS RF: 0 insulin lispro 100 unit/mL solution 0 unit SQ TIDM RF: 0 Lantus U-100 Insulin 100 unit/mL solution 5 unit SQ HS RF: 0 cholecalciferol (vitamin D3) 125 mcg (5,000 unit) capsule 125 mcg PO DAILY RF: 0 (DME) insulin syringe-needle U-100 [Easy Comfort Insulin Syringe] 0.5 mL 31 gauge x 5/16" syringe See Rx Instructions .ROUTE .MEDSUPPLY RF: 0 buspirone 15 mg tablet 15 mg PO BID RF: 0 zinc gluconate 100 mg Tablet 100 mg PO HS RF: 0 lorazepam [Ativan] 1 mg tablet 1 mg PO BID PRN (Reason: anxiety) RF: 0 trazodone 50 mg tablet 100 mg PO HS RF: 0 levothyroxine 50 mcg tablet 50 mcg PO DAILYBB RF: 0 folic acid 1 mg tablet 1 mg PO QAM RF: 0 fenofibrate 160 mg tablet 160 mg PO QAM RF: 0 multivitamin with minerals [Hair,Skin and Nails] Tablet 2 tab PO QAM RF: 0 calcium-vitamin D3-vitamin K [Viactiv] 650 mg-12.5 mcg-40 mcg Tablet,Chewable 1 tab PO AMHS RF: 0 polysaccharide iron complex [Ferrex 150] 150 mg iron Capsule 150 mg PO HS RF: 0 Flintstones Complete Tablet,Chewable 1 tab PO HS RF: 0 pantoprazole 40 mg tablet,delayed release (DR/EC) 40 mg PO HS RF: 0 Xarelto 15 mg tablet 15 mg PO QAM RF: 0 Changed bumetanide 1 mg tablet 1 mg PO Q2D Qty: 0 RF: 0 Discontinued flecainide 100 mg tablet 100 mg PO Q12H Qty: 60 RF: 2 No Action nystatin 100,000 unit/gram powder 1 applic topical TID PRN (Reason: Rash) Qty: 60 RF: 0 metoprolol tartrate 25 mg tablet 12.5 mg PO DAILY RF: 0 Discharge Orders: Discharge Order (Routine); Ordered 03/03/21 Ordered By: Brendan Herron Admission Data Admit Date/Time: 02/27/21 00:07 Attending Provider: Brendan Herron Admit Provider: Kelly Childress Primary Care Provider: William Lewis V. Other Providers: Joshua Fontaine Other Interventions: Discharge Summary Assessment (RN) Last Done: 03/03/21 12:39 Coding Level of Care Code D/C DAY MANAGEMENT >30 MINS Diagnoses Atrial fibrillation I48.91 Atrial fibrillation type: unspecified Elevated troponin I level R77.8 CKD (chronic kidney disease) N18.9 Chronic kidney disease stage: unspecified stage Hyperlipemia E78.5 Hypothyroidism E03.9 HTN (hypertension) I10
--- NOTE | 2021-03-03 12:29 | Cardiology Progress Note ---
Date of Service March 03, 2021 Assessment & Plan (1) Atrial fibrillation and flutter: Plan: -cardioverted yesterday by Dr. Parisi. -remains in sinus rhythm on metoprolol. -tolerating renally adjusted Xarelto without difficulty. -follow-up with me as scheduled on March 13. -will set up a follow-up appointment with Dr. Parisi also. (2) Elevated troponin I level: Plan: -likely a supply/demand mismatch. -rapid ventricular response with mild left ventricular hypertrophy. (3) HTN (hypertension): Plan: -adequate control on current regimen. (4) Hypercholesterolemia: Plan: -continue atorvastatin. Admission and Anticipated Discharge Date Admission Date: February 27, 2021 Subjective The patient is resting comfortably in bedside chair without complaints of chest pain, dyspnea, or palpitations. She was able to ambulate last evening without complaints. Physical Exam Physical Exam: In general this is an obese white female in no acute distress. HEENT exam is negative. Neck is supple with full carotid upstrokes. There are no carotid bruits. No JVD. There is no thyromegaly. Cardiovascular exam reveals a regular rhythm with distant heart sounds. No obvious murmurs. Lungs are clear without rales, rhonchi, or wheezes. Abdomen is soft and nontender without bruits. Extremities reveal a right upper extremity fistula with associated bruit. There is no pretibial edema. Results & Data ([facility]) Vital Signs (Past 12 Hours) Vital Signs Temp Pulse Pulse Resp BP Pulse Ox 03/03/21 08:21 36.6 C 56 L 18 141/72 H 99 03/03/21 08:00 56 L 03/03/21 02:59 36.5 C 57 L 18 133/78 98 PG Care Time/CCT Total # of Minutes Spent Total Time Spent with Patient: Total time spent is greater than 50% in coordination of care (as documented) at patient's floor/unit and/or counseling patient: Coding Level of Care Code 03041 Subseq Hosp Care Lvl 3 Diagnoses Atrial fibrillation and flutter I48.91; I48.92 Elevated troponin I level R77.8 HTN (hypertension) I10 Hypercholesterolemia E78.00
[2021-03-03] MEDS: RIVAROXABAN 15 MG TAB PO SCH (16:07)
--- NOTE | 2021-03-16 07:24 | Coding Query ---
CHRONIC KIDNEY DISEASE To promote full compliance with coding requirements relating to patient care, physician participation is requested in all cases of document imaging manager uncertainty. Please assist us with the question(s) below: Coding Question(s): The medical record reflects the following clinical findings: Clinical Indicators: Documentation includes: "CKD (chronic kidney disease): Plan: BUN and creatinine slightly higher than previous however within baseline range Avoid nephrotoxic agents Continue to monitor BUN, creatinine, electrolytes" Estimated GFR of 18-21 ml/min. As appropriate, consider documentation as suggested above. Thank you. Risk Factor(s): Age, DM, hypertension, AF Treatment: Serial chemistries. Please specify the known or suspected type by placing an "X" within the parenthesis (x). If other, please document type. Please document Staging if known: ( ) Stage I >90 Kidney damage with normal or elevated GFR. ( ) Stage II 60-89 Kidney damage with mildly decreased kidney function ( ) Stage III 30-59 Moderately decreased kidney function (X) Stage IV 15-29 Severely decreased kidney function ( ) Stage V <15 Renal failure (or dialysis) ( ) End Stage ( ) Unknown (CDI's query answered, but response was never documented in the medical record.) Thank you for your time, WHITLEY Chan, [facility]
== END 2021-03-03 18:25 | disposition home or self-care (01) | DRG 309 ==
LOC: ED 21:27 → 2W 02-27 00:07 → SUATTDRO 02-27 00:07 → 2W 02-27 01:40

== ENCOUNTER 2022-06-06 22:39 | Inpatient (IN) ==
[2022-06-07] MEDS ORDERED: ONDANSETRON INJ 2 MG/ML 2 ML VIAL IV STA (00:20)
[2022-06-07] MEDS ORDERED: MoRPHine SULFATE 4 MG/ML 1 ML CARP\\VIAL IV PRN (00:20)
[2022-06-07 00:49] LABS: Basophils # (auto) 0.03 K/uL (0-0.2); Basophils % (auto) 0.4 %; Eosinophils # (auto) 0.06 K/uL (0-0.50); Eosinophils % (auto) 0.9 %; Hematocrit (blood only) 35.4 % (34.1-44.9); Hemoglobin 10.9 g/dl (12.0-16.0); Immature Granulocytes # (auto) 0.04 K/uL (0.00-0.02); Immature Granulocytes % (auto) 0.6 %; Lymphocytes # (auto) 0.94 K/uL (1.2-3.4); Lymphocytes % (auto) 13.5 %; Mean Corpuscular Hemoglobin 27.5 pg (25.0-34.0); Mean Corpuscular Hgb Conc 30.8 g/dL (32.0-36.0); Mean Corpuscular Volume 89.4 fL (80.0-100.0); Mean Platelet Volume 10.7 fL (9.4-12.3); Monocytes # (auto) 0.39 K/uL (0.24-0.82); Monocytes % (auto) 5.6 %; Neutrophils # (auto) 5.52 K/uL (1.4-6.5); Platelet Count 150 K/uL (130-400); RDW Standard Deviation 52.8 fL (36.4-46.3); Red Blood Count 3.96 M/uL (3.93-5.22); White Blood Count 6.98 K/ul (4.8-10.8)
[2022-06-07 01:03] LABS: INR 1.1 (0.9-1.1); Partial Thromboplastin Time 27.4 Seconds (21.0-31.0); Prothrombin Time 11.9 Seconds (9.0-12.0)
[2022-06-07 01:06] LABS: Troponin I High Sensitivity 14.2 pg/ml (0-14)
[2022-06-07 01:07] LABS: BUN Creatinine Ratio 23.8 (10-20); Bilirubin,Total 0.7 mg/dl (0.2-1.0); Calcium 8.5 mg/dl (8.5-10.1); Creatinine Clr Calc Pharmacy 41.6 ml/min; Est GFR (African American) 33.9 ml/min; Est GFR (Non-African American) 29.2 ml/min; Potassium 4.1 mmol/L (3.5-5.1)
[2022-06-07 01:08] LABS: Albumin Globulin Ratio 1.1 (0.9-2); Albumin Level 3.4 gm/dl (3.4-5.0); Globulin 3.1 gm/dl (2.5-4.0); Total Protein 6.5 gm/dl (6.0-8.3)
--- NOTE | 2022-06-07 02:35 | Emergency Department Note ---
ED Visit Note I was consulted by the Advanced Practice Provider. I saw the patient personally and performed a substantive portion of the visit. This includes aspects of the HPI, MDM, diagnostic interpretations, and disposition/plan. .
--- NOTE | 2022-06-07 03:06 | History & Physical Report ---
Date of Service June 07, 2022 Assessment & Plan (1) Closed fracture of greater trochanter of left femur: (2) Idiopathic polyneuropathy: (3) Obstructive sleep apnea on CPAP: (4) HTN (hypertension): (5) Obsessive compulsive disorder: (6) Obesity hypoventilation syndrome: (7) COPD (chronic obstructive pulmonary disease): (8) Type 2 diabetes mellitus: (9) PAF (paroxysmal atrial fibrillation): (10) Hypothyroidism: (11) Hyperlipemia: (12) Hypercholesterolemia: (13) Mixed restrictive and obstructive lung disease: (14) Chronic kidney disease, stage 4 (severe): Plan Closed left greater trochanter fracture- Will not make n.p.o. at this time as patient is on Eliquis, which will be held Acetaminophen 650 mg p.o. every 6 hours. Mild pain or fever Cosmos 5/325, 1 every 4 hours as needed for moderate pain Dilaudid 0.5 mg IV every 4 hours as needed for severe pain Zofran 4 mg IV every 6 hours as needed Consult orthopedic surgery, sees Dr. New Paroxysmal atrial fibrillation/hypertension- Hold apixaban Change metoprolol to tartrate 1225 mg p.o. every morning to 5012.5 mg p.o. twice daily Follow-up on medical telemetry Diabetes mellitus- Hold glargine 5 units subcu at bedtime, and lispro 7 units subcu 3 times daily with meals Placed on Accu-Cheks before meals and at bedtime with NovoLog coverage per sliding scale Check hemoglobin A1c Hyperlipidemia- Continue atorvastatin 80 mg at bedtime and fenofibrate 160 mg every morning Anxiety and depression- Continue buspirone 15 mg p.o. twice daily, fluvoxamine 150 mg p.o. twice daily, lorazepam 1 mg p.o. twice daily as needed, pregabalin 50 mg p.o. twice daily and trazodone 100 mg p.o. at bedtime as needed GERD- Continue pantoprazole 40 mg at bedtime Hypothyroidism- Continue levothyroxine 50 mcg daily Vit B12 deficiency- Continue 2500 mcg p.o. daily History of Present Illness Chief Complaint: The patient presents to the emergency department with complaint of left hip pain status post ground-level fall prior to arriving to the ED Primary Care Provider: William Lewis MD The patient is a 61-year-old female with a past medical history including shoulder replacement, left knee osteoarthritis, idiopathic polyneuropathy, TRUMAN on CPAP, hypertension, LVH, OCD, obesity hypoventilation syndrome ", COPD, ILD, diabetes mellitus type 2, paroxysmal atrial fibrillation, CKD stage IV, hyperlipidemia, anxiety and depression, diabetic peripheral neuropathy, diabetic nonproliferative retinopathy, HFpEF, anemia due to chronic disease and vitamin D deficiency. Patient presents to the emergency department after ground-level fall. X-ray and CT scan in ED confirmed left greater trochanter fracture. Allergies Allergy/AdvReac Type Severity Reaction Status Date / Time promethazine Allergy Unknown BROKEN Verified 04/10/22 11:12 CAPILLARIES FACE Iodinated Contrast Media AdvReac Unknown Unknown Verified 04/10/22 11:12 [Iodinated Contrast- Oral and IV Dye] Home Medications Medication Instructions Recorded Confirmed Type zinc gluconate 100 mg tablet 100 mg PO HS 07/23/18 04/10/22 History lorazepam 1 mg tablet (Ativan) 1 mg PO BID PRN anxiety 03/24/19 04/10/22 History trazodone 50 mg tablet 100 mg PO HS insomnia 04/26/20 04/10/22 History buspirone 15 mg tablet 15 mg PO BID 11/28/20 04/10/22 History multivitamin with minerals 2 tab PO BID 02/26/21 04/10/22 History (Hair,Skin and Nails tablet) multivitamin (Daily Multi-Vitamin 1 tab PO DAILY 04/04/21 04/10/22 History tablet) insulin syringe-needle U-100 0.5 #400 ea 04/12/21 04/10/22 Rx mL 31 gauge x 5/16" (Easy Comfort Insulin Syringe) lancets (OneTouch UltraSoft #400 ea 04/12/21 04/10/22 Rx Lancets) amoxicillin 500 mg tablet 2,000 mg PO ONCE #4 tabs 04/21/21 04/10/22 Rx polysaccharide iron complex 150 mg 150 mg PO HS #60 caps 05/03/21 04/10/22 Rx iron capsule (Ferrex) metoprolol tartrate 25 mg tablet 25 mg PO QAM #90 tabs 05/18/21 04/10/22 Rx omega-3 fatty acids 1,000 mg 1,000 mg PO DAILY 08/21/21 04/10/22 History capsule apixaban 5 mg tablet (Eliquis) 5 mg PO BID #180 tabs 08/30/21 04/10/22 Rx atorvastatin 80 mg tablet 80 mg PO HS #90 tabs 08/30/21 04/10/22 Rx fenofibrate 160 mg tablet 160 mg PO QAM #90 tabs 08/30/21 04/10/22 Rx folic acid 1 mg tablet 1 mg PO QAM #90 tabs 08/30/21 04/10/22 Rx insulin glargine 100 unit/mL 5 unit subcut HS 10/04/21 04/10/22 History subcutaneous solution (Lantus U-100 Insulin) insulin lispro 100 unit/mL 7 unit subcut TIDM 10/04/21 04/10/22 History subcutaneous solution fluvoxamine 100 mg 150 mg PO BID 11/27/21 04/10/22 History capsule,extended release 24 hr pantoprazole 40 mg tablet,delayed 40 mg PO HS #90 tabs 12/07/21 04/10/22 Rx release blood sugar diagnostic #300 ea 01/02/22 04/10/22 Rx epoetin fernando-epbx 40,000 unit/mL 40,000 unit subcut MONTHLY 15 days 01/10/22 04/10/22 Rx injection solution (Retacrit) #15 mL cyanocobalamin (vitamin B-12) 2,500 mcg PO DAILY #30 tabs 01/16/22 04/10/22 Rx 2,500 mcg tablet pregabalin 50 mg capsule (Lyrica) 50 mg PO BID #60 caps 03/01/22 04/10/22 Rx bumetanide 1 mg tablet 1 mg PO DAILY 04/05/22 04/10/22 History cholecalciferol (vitamin D3) 125 125 mcg PO DAILY 04/05/22 04/10/22 History mcg (5,000 unit) capsule levothyroxine 50 mcg tablet 50 mcg PO DAILY #90 tabs 04/09/22 04/10/22 Rx scopolamine base 1 mg over 3 days 1 patch transdermal Q3D PRN nausea 05/08/22 Rx transdermal patch and vomiting #4 ea nystatin 100,000 unit/gram topical 1 applic topical TID PRN Rash #60 06/01/22 Rx powder grams Past Med/Surg History Medical History Acute renal failure (05/23/14) Afib Anemia due to chronic kidney disease Anxiety and depression Arthralgia of multiple sites AV fistula Avascular necrosis of head of humerus Cardiac murmur Chronic kidney disease, stage 4 (severe) Chronic low back pain Chronic rhinitis Chronic sinusitis Claustrophobia Diabetes Diabetic nephropathy Diabetic peripheral neuropathy Diabetic retinopathy, nonproliferative Diastolic congestive heart failure Dizziness Fatty liver Fever Fracture of neck of left humerus (2015) History of cardioversion Hyperlipemia Hypertension Hypothyroidism Mixed restrictive and obstructive lung disease Morbid obesity Nasal septal deviation Nocturnal hypoxia Nontoxic multinodular goiter TRUMAN (obstructive sleep apnea) Sore throat Syncope Syncope Vitamin D deficiency Surgical History H/O section History of arthroscopy History of colonoscopy History of dermoid cyst excision History of esophagogastroduodenoscopy (EGD) History of mandibular surgery History of total shoulder replacement Hx of cholecystectomy Hx of gastric bypass Hx of right cataract extraction S/P tooth extraction Family History Daughter Bipolar disorder Multiple allergies Aunt Breast cancer Mother Diabetes Heart disease Hypertension Hyperthyroidism Father Hearing loss Gastric cancer Myocardial infarction Grandfather Heart disease Family/Other Hypertension Lung cancer Osteoporosis Stroke Brother Hypertension Grandmother Ovarian cancer Sister Migraine Diabetes Denies family history of Prostate cancer Colorectal cancer Uterine cancer Social History Smoking Status: Never smoker Second Hand Exposure: No; Hx Alcohol Use: No Hx Substance Use: No Preferred Language: Macedonian Communication Ability: Effective Visual Impairment: No Limitations Media Planner / Buyer Required: No Beliefs That Will Affect Care: None marital status: Single Current Living Situation: Spouse Current Living Situation Comment: Home w/ current occupational status: unemployed Feels Safe at Home: Yes Childhood Exposure to Second-Hand Smoke: Yes Dental Care, Regularly: Yes Physical Activity Frequency: Does not Exercise Seatbelt Use: never Sunscreen Use: Yes Assistive Devices: Glasses Review of Systems Review of Systems: The patient denies chest pain, palpitations, shortness of breath, dyspnea on exertion, cough, lower extremity swelling, sore throat, fevers, chills, sweats, weight change, fatigue, nausea, vomiting, diarrhea , constipation, abdominal pain, pelvic pain, blood in urine or stool, dysuria, urinary frequency or urgency, lightheadedness, dizziness, headache, memory loss, loss of consciousness, rash, abnormal bruising or bleeding, focal or generalized weakness, numbness or tingling in arms, generalized arthralgias or myalgias, back or neck pain, or night sweats. The review of systems is otherwise negative other than for that already noted above, and at least 10 systems have been reviewed. Physical Exam Physical Exam: The patient is awake, alert and oriented 3, well developed and well nourished, normocephalic and atraumatic, lying in bed and in no acute distress. HEENT--PERRL, EOMI, mucous membranes and oropharynx normal. Neck--supple. No JVD. No bruits. Thyroid normal, trachea midline, no adenopathy. Heart--normal S1 and S2. No murmurs, rubs or gallops. Lungs--clear bilaterally, no respiratory distress, no accessory muscle use. Abdomen--normal bowel sounds and soft. Nontender. Nondistended. Morbidly obese Extremities--no cyanosis or clubbing. No edema. Dermatologic--normal skin turgor, normal color, no abnormal lymph nodes, no rash. Neurologic--cranial nerves II through XII grossly intact. Rheumatologic--limited exam Psychiatric--normal affect. Results & Data Results & Data ([facility]) Vital Signs (Past 12 Hours) Vital Signs Temp Pulse Pulse Resp BP Pulse Ox O2 Del Method 06/07/22 01:43 62 18 197/72 H 90 Room Air 06/07/22 00:20 Room Air 06/06/22 22:33 36.6 C 60 14 99 Room Air 06/06/22 22:33 36.6 C 59 L 13 93 Room Air Laboratory Results Laboratory Results WBC 6.98 K/ul (4.8-10.8) 06/06/22 23:00 RBC 3.96 M/uL (3.93-5.22) 06/06/22 23:00 Hgb 10.9 g/dl (12.0-16.0) L 06/06/22 23:00 Hct 35.4 % (34.1-44.9) 06/06/22 23:00 MCV 89.4 fL (80.0-100.0) 12/21/22 23:00 MCH 27.5 pg (25.0-34.0) 06/06/22 23:00 MCHC 30.8 g/dL (32.0-36.0) L 06/06/22 23:00 RDW Std Deviation 52.8 fL (36.4-46.3) H 06/06/22 23:00 RDW Coeff of Chantal 16.0 % (11.5-14.5) H 06/06/22 23:00 Plt Count 150 K/uL (130-400) 06/06/22 23:00 MPV 10.7 fL (9.4-12.3) 06/06/22 23:00 Immature Gran % (Auto) 0.6 % 06/06/22 23:00 Neut % (Auto) 79.0 % 06/06/22 23:00 Lymph % (Auto) 13.5 % 06/06/22 23:00 Baxter % (Auto) 5.6 % 06/06/22 23:00 Eos % (Auto) 0.9 % 06/06/22 23:00 Baso % (Auto) 0.4 % 06/06/22 23:00 Neut # (Auto) 5.52 K/uL (1.4-6.5) 06/06/22 23:00 Lymph # (Auto) 0.94 K/uL (1.2-3.4) L 06/06/22 23:00 Baxter # (Auto) 0.39 K/uL (0.24-0.82) 06/06/22 23:00 Eos # (Auto) 0.06 K/uL (0-0.50) 06/06/22 23:00 Baso # (Auto) 0.03 K/uL (0-0.2) 06/06/22 23:00 Immature Gran # (Auto) 0.04 K/uL (0.00-0.02) H 06/06/22 23:00 PT 11.9 Seconds (9.0-12.0) 06/06/22 23:00 INR 1.1 (0.9-1.1) 06/06/22 23:00 APTT 27.4 Seconds (21.0-31.0) 06/06/22 23:00 PTT Ratio 1.0 12/21/22 23:00 Sodium 142 mmol/L (136-145) 06/06/22 23:00 Potassium 4.1 mmol/L (3.5-5.1) 06/06/22 23:00 Chloride 109 mmol/L (98-107) H 06/06/22 23:00 Carbon Dioxide 28 mmol/L (21-32) 06/06/22 23:00 Anion Gap 5 (3-11) 06/06/22 23:00 BUN 43 mg/dl (6-23) H 06/06/22 23:00 Creatinine 1.81 mg/dl (0.6-1.2) H 06/06/22 23:00 Est Cr Clr Drug Dosing 41.6 ml/min 06/06/22 23:00 Est GFR ( Amer) 33.9 ml/min 06/06/22 23:00 Est GFR (Non-Af Amer) 29.2 ml/min 06/06/22 23:00 BUN/Creatinine Ratio 23.8 (10-20) H 06/06/22 23:00 Glucose 151 mg/dl (70-99(Fasting)) H 06/06/22 23:00 Calcium 8.5 mg/dl (8.5-10.1) 06/06/22 23:00 Total Bilirubin 0.7 mg/dl (0.2-1.0) 06/06/22 23:00 AST 25 U/L (13-39) 06/06/22 23:00 ALT 14 U/L (7-52) 06/06/22 23:00 Alkaline Phosphatase 86 U/L (34-104) 06/06/22 23:00 Total Creatine Kinase 77 U/L (26-192) 06/06/22 23:00 Troponin I High Sens 14.2 pg/ml (0-14) H 06/06/22 23:00 Total Protein 6.5 gm/dl (6.0-8.3) 06/06/22 23:00 Albumin 3.4 gm/dl (3.4-5.0) 06/06/22 23:00 Globulin 3.1 gm/dl (2.5-4.0) 06/06/22 23:00 Albumin/Globulin Ratio 1.1 (0.9-2) 06/06/22 23:00 SARS-CoV-2, RNA, NAAT NEGATIVE (NEGATIVE) 06/06/22 23:00 Diagnostic Findings [facility] Patient: SHANTEL PAYAN (Female) : 56 Status: ER Date: 06/07/22 01:34 Room #: History: PAIN AT LEFT HIP, FRACTURE Slices: [phone] Priors: Tech: Luke Licea @ [phone] Exams: CT LEFT HIP Contrast: Accession Numbers: [id number] Referring Physician: REFERRED SELF Preliminary Findings Only See Final Report For Complete Findings CT LEFT HIP: Findings: There is a mildly displaced comminuted fracture of the greater trochanter. The femoral neck is intact. No other fractures identified. No discrete hematoma. No pelvic free fluid. Impression: Fracture of the greater trochanter. Radiologist: Afshin Baker MD Study ready at 01:39 and initial results transmitted at 02:13 *This report constitutes a preliminary interpretation only. Non-acute findings felt to be unrelated to the clinical presentation may not be discussed in this report. The study will be interpreted and a final report will be generated by the local Radiologist the following shift. To reach the hospital radiology department call [phone]. If a discrepancy is found between the preliminary and final interpretations of this study, please notify us via our Client Portal at [email or web address] under QA Exams. You can also fax this report with a description of the discrepancy, or include the final report, to our daytime fax number [phone]. If faxing, please indicate the severity of discrepancy using one of the following categories: [ ] 1 - Agree/Informational [ ] 2 - Unlikely to Affect Management [ ] 3 - Possible Eventual Change of Management [ ] 4 - Probable Immediate Change of Management For all other patient related information, please fax us at [phone]. [id number] Code Status & VTE Plan Code Status Full code VTE Prophylaxis Plan VTE Prophylaxis will be ordered: Yes (1) Type 2 diabetes mellitus Diabetes mellitus superintendent terminal insulin use: with superintendent terminal use Diabetes mellitus complication status: with other specified complication Qualified Code(s): E11.69 - Type 2 diabetes mellitus with other specified complication; Z79.4 - terminal computer operator (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
--- NOTE | 2022-06-07 04:22 | Billing Data ---
Date of Service June 07, 2022 Coding Level of Care Code 06897 Initial Inpt Care Lvl 3
[2022-06-07] MEDS ORDERED: LORazepam 1 MG TAB PO PRN (05:21)
[2022-06-07] MEDS ORDERED: GLUCOSE 10 TAB/TUBE PO PRN (05:21)
[2022-06-07] MEDS ORDERED: NALOXONE HCL 0.4 MG/1 ML VIAL/CARP IV PRN (05:21)
[2022-06-07] MEDS ORDERED: bisacodyL 10 MG SUPP PR PRN (05:21)
[2022-06-07] MEDS ORDERED: ACETAMINOPHEN 325 MG TAB PO PRN (05:21)
[2022-06-07] MEDS ORDERED: GLUCAGON FOR INJ 1 MG VIAL SQ PRN (05:21)
[2022-06-07] MEDS ORDERED: ONDANSETRON INJ 2 MG/ML 2 ML VIAL IV PRN (05:21)
[2022-06-07] MEDS ORDERED: GLUCOSE 40% GEL 15 GM TUBE PO PRN (05:21)
[2022-06-07] MEDS ORDERED: MAGNESIUM HYDROXIDE SUSP 30 ML UDC PO PRN (05:21)
[2022-06-07] MEDS ORDERED: CARBOHYDRATES FOR HYPOGLYCEMIA PO PRN (05:21)
[2022-06-07] MEDS ORDERED: DEXTROSE 50% 50 ML SYRINGE IV PRN (05:21)
[2022-06-07] MEDS ORDERED: TRANEXAMIC ACID / 0.7% NACL 1,000 MG/100 ML BAG IV SCH ×2 (06:00→06:30)
--- NOTE | 2022-06-07 06:14 | Emergency Department Note ---
History of Present Illness General Chief complaint: Fall Time Seen by Provider: 06/07/22 00:04 History of Present Illness Maximum Pain Intensity: 3 This is a 61-year-old female presenting to the emergency department via EMS for evaluation of fall and left hip pain. The patient states that she was at home and was walking from her kitchen into her living room. She states that she has some baseline neuropathy of her feet due to her diabetes, and struck her foot off a piece of furniture. This caused her to fall and injure her left hip. Because of this she was not able to stand or ambulate. The patient was able to sit up however, and scoot through the house on her buttocks. She was not able to reach her phone, and believes that she was on the ground for 3 or 4 hours until her got home. The patient does have chronic medical disease including chronic kidney disease, diabetes, gastric bypass, A. fib, and long- term use of Eliquis. The patient did not strike her head in the fall and does not report neck, chest, or abdominal pain. She rates her discomfort a 3/10. He r pain worsens with movement of the left leg. Home Medications Medication Instructions Recorded Confirmed Type zinc gluconate 100 mg tablet 100 mg PO HS 07/23/18 04/10/22 History lorazepam 1 mg tablet (Ativan) 1 mg PO BID PRN anxiety 03/24/19 04/10/22 History trazodone 50 mg tablet 100 mg PO HS insomnia 04/26/20 04/10/22 History buspirone 15 mg tablet 15 mg PO BID 11/28/20 04/10/22 History multivitamin with minerals 2 tab PO BID 02/26/21 04/10/22 History (Hair,Skin and Nails tablet) multivitamin (Daily Multi-Vitamin 1 tab PO DAILY 04/04/21 04/10/22 History tablet) insulin syringe-needle U-100 0.5 #400 ea 04/12/21 04/10/22 Rx mL 31 gauge x 5/16" (Easy Comfort Insulin Syringe) lancets (OneTouch UltraSoft #400 ea 04/12/21 04/10/22 Rx Lancets) amoxicillin 500 mg tablet 2,000 mg PO ONCE #4 tabs 04/21/21 04/10/22 Rx polysaccharide iron complex 150 mg 150 mg PO HS #60 caps 05/03/21 04/10/22 Rx iron capsule (Ferrex) metoprolol tartrate 25 mg tablet 25 mg PO QAM #90 tabs 05/18/21 04/10/22 Rx omega-3 fatty acids 1,000 mg 1,000 mg PO DAILY 08/21/21 04/10/22 History capsule apixaban 5 mg tablet (Eliquis) 5 mg PO BID #180 tabs 08/30/21 04/10/22 Rx atorvastatin 80 mg tablet 80 mg PO HS #90 tabs 08/30/21 04/10/22 Rx fenofibrate 160 mg tablet 160 mg PO QAM #90 tabs 08/30/21 04/10/22 Rx folic acid 1 mg tablet 1 mg PO QAM #90 tabs 08/30/21 04/10/22 Rx insulin glargine 100 unit/mL 5 unit subcut HS 10/04/21 04/10/22 History subcutaneous solution (Lantus U-100 Insulin) insulin lispro 100 unit/mL 7 unit subcut TIDM 10/04/21 04/10/22 History subcutaneous solution fluvoxamine 100 mg 150 mg PO BID 11/27/21 04/10/22 History capsule,extended release 24 hr pantoprazole 40 mg tablet,delayed 40 mg PO HS #90 tabs 12/07/21 04/10/22 Rx release blood sugar diagnostic #300 ea 01/02/22 04/10/22 Rx epoetin fernando-epbx 40,000 unit/mL 40,000 unit subcut MONTHLY 15 days 01/10/22 04/10/22 Rx injection solution (Retacrit) #15 mL cyanocobalamin (vitamin B-12) 2,500 mcg PO DAILY #30 tabs 01/16/22 04/10/22 Rx 2,500 mcg tablet pregabalin 50 mg capsule (Lyrica) 50 mg PO BID #60 caps 03/01/22 04/10/22 Rx bumetanide 1 mg tablet 1 mg PO DAILY 04/05/22 04/10/22 History cholecalciferol (vitamin D3) 125 125 mcg PO DAILY 04/05/22 04/10/22 History mcg (5,000 unit) capsule levothyroxine 50 mcg tablet 50 mcg PO DAILY #90 tabs 04/09/22 04/10/22 Rx scopolamine base 1 mg over 3 days 1 patch transdermal Q3D PRN nausea 05/08/22 Rx transdermal patch and vomiting #4 ea nystatin 100,000 unit/gram topical 1 applic topical TID PRN Rash #60 06/01/22 Rx powder grams Allergies Allergy/AdvReac Type Severity Reaction Status Date / Time promethazine Allergy Unknown BROKEN Verified 04/10/22 11:12 CAPILLARIES FACE Iodinated Contrast Media AdvReac Unknown Unknown Verified 04/10/22 11:12 [Iodinated Contrast- Oral and IV Dye] Past Med/Surg History Medical History Acute renal failure (05/23/14) 2013. Kidneys recovered to around CKD III, then function worsened around 04/2020. Afib dx August 2020> cardioversions x2. Xarelto > follows Dr. Fontaine > no pacer Anemia due to chronic kidney disease Anxiety and depression Arthralgia of multiple sites AV fistula September 07, 2020 > right wrist > not on dialysis at present Avascular necrosis of head of humerus Cardiac murmur Mild TR noted on 2019 echo. Chronic kidney disease, stage 4 (severe) F/U [facility]- nephrology Chronic low back pain Chronic rhinitis Chronic sinusitis Claustrophobia Diabetes Diabetic nephropathy Diabetic peripheral neuropathy Diabetic retinopathy, nonproliferative Diastolic congestive heart failure Euvolemic on exam at [facility] 09/02/20. follows with Dr. 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 Per [facility] pulm 12/2019, "fairly stable from a pulmonary perspective. She is short of breath with any exertion, however a large part of this is likely related to obesity. Pulmonary functions done 1 year ago showed only a mild restrictive pattern. Diffusion was slightly decreased to 66%. One year ago she did have a normal arterial blood gas with no evidence of CO2 retention." Using PRN 3L, mostly using with exertion, not using every day. Morbid obesity Nasal septal deviation Nocturnal hypoxia no 02 Nontoxic multinodular goiter TRUMAN (obstructive sleep apnea) PRESCRIBED BIPAP-CAN'T TOLERATE-CLAUSTROPHOBIC Sore throat Syncope Syncope Vitamin D deficiency Surgical History H/O section x1 History of arthroscopy x2 left shoulder History of colonoscopy History of dermoid cyst excision History of esophagogastroduodenoscopy (EGD) History of mandibular surgery FULL ROM History of total shoulder replacement LEFT 07/19 2015 fracture Hx of cholecystectomy Hx of gastric bypass Hx of right cataract extraction S/P tooth extraction Family History Daughter Bipolar disorder Multiple allergies Aunt Breast cancer Mother Diabetes Heart disease Hypertension Hyperthyroidism Father Hearing loss Gastric cancer Myocardial infarction Grandfather Heart disease Family/Other Hypertension Lung cancer Osteoporosis Stroke Brother Hypertension Grandmother Ovarian cancer Sister Migraine Diabetes Denies family history of Prostate cancer Colorectal cancer Uterine cancer Social History Smoking Status: Never smoker Second Hand Exposure: No; Hx Alcohol Use: No Hx Substance Use: No Preferred Language: Mozambican Communication Ability: Effective Visual Impairment: No Limitations [place] Former Machine Operator Required: No Beliefs That Will Affect Care: None marital status: Single Current Living Situation: Spouse Current Living Situation Comment: Home w/ current occupational status: unemployed Feels Safe at Home: Yes Childhood Exposure to Second-Hand Smoke: Yes Dental Care, Regularly: Yes Physical Activity Frequency: Does not Exercise Seatbelt Use: never Sunscreen Use: Yes Assistive Devices: Glasses Review of Systems A total of 10 systems reviewed and were otherwise negative Physical Exam Vital Signs Vital Signs - 24 hr 06/06/22 22:33 06/06/22 22:33 06/07/22 00:20 Temperature 36.6 C 36.6 C Temperature Source Oral Oral Pulse Rate 59 L Pulse Rate [Apical] 60 Pulse Rhythm [Apical] Regular Pulse Strength [Apical] Respiratory Rate 13 14 Respiratory Effort / Characteristics Non-Labored Spontaneous Non-Labored Spontaneous Respiratory Depth Normal Normal Respiratory Pattern Blood Pressure [Left Arm] Blood Pressure Mean [Left Arm] Blood Pressure Position [Left Arm] Pulse Oximetry 93 99 Oxygen Delivery Method Room Air Room Air Room Air Oxygen Flow Rate Sepsis New/Unexplained Change in Mental Status No Sepsis Action Taken by Nursing No Action Required 06/07/22 01:43 06/07/22 03:00 Temperature Temperature Source Pulse Rate Pulse Rate [Apical] 62 64 Pulse Rhythm [Apical] Regular Regular Pulse Strength [Apical] Normal Normal Respiratory Rate 18 18 Respiratory Effort / Characteristics Non-Labored Non-Labored Respiratory Depth Normal Normal Respiratory Pattern Regular Regular Blood Pressure [Left Arm] 197/72 H 183/88 H Blood Pressure Mean [Left Arm] 113 119 Blood Pressure Position [Left Arm] Lying Lying Pulse Oximetry 90 100 Oxygen Delivery Method Room Air Nasal Cannula Oxygen Flow Rate 2 Sepsis New/Unexplained Change in Mental Status Sepsis Action Taken by Nursing VITALS: Vitals are noted on the nurse's note and reviewed by myself. Vital signs stable. GENERAL: Very pleasant white female who is cooperative and answering questions appropriate. She does appear uncomfortable with certain movements in the ER bed. HEAD: Normocephalic atraumatic. NECK: Supple without nuchal rigidity. No lymphadenopathy. No thyromegaly. Cervical spine is nontender. HEART: Regular rate and rhythm with notable systolic murmur. LUNGS: Clear to auscultation bilaterally without wheezes, rales or rhonchi. No retractions or accessory muscle use. ABDOMEN: Positive normal bowel sounds x 4. Soft, nontender, without masses or organomegaly. No guarding or rebound tenderness. MUSCULOSKELETAL: Reproducible tenderness primarily appreciated in the left mid femur area. The left leg is not significantly rotated or shortened. Exam is somewhat difficult due to patient's discomfort and body habitus. Neurovascular status appears intact distally. NEURO: Patient was alert and oriented to person place and time. CN II through XII grossly intact. Course Administered Medications Hydromorphone HCl (Hydromorphone Inj 0.5 Mg/0.5 Ml Syr) 0.5 mg IV Q3H PRN PRN Reason: Severe Pain Stop: 06/21/22 05:20 Last Admin: 06/07/22 06:24 Dose: 0.5 mg Documented By: GAYLA Discontinued Medications Morphine Sulfate (Morphine Sulfate 4 Mg/Ml 1 Ml Carp\\Vial) 4 mg IV Q30M PRN PRN Reason: Pain Stop: 06/21/22 00:19 Last Admin: 06/07/22 00:32 Dose: 4 mg Documented By: GAYLA Ondansetron HCl (Ondansetron Inj 2 Mg/Ml 2 Ml Vial) 4 mg IV NOW STA Stop: 06/07/22 00:21 Last Admin: 06/07/22 00:32 Dose: 4 mg Documented By: GAYLA Medical Decision Making Differential Diagnosis Differential diagnosis includes, but is not limited to: Sprain, strain, fracture, dislocation, subluxation, contusion, and others Laboratory Data Result diagrams: 06/06/22 23:00 06/06/22 23:00 Lab Results 06/06/22 06/06/22 06/06/22 Range/Units 23:00 23:00 23:00 WBC 6.98 (4.8-10.8) K/ul RBC 3.96 (3.93-5.22) M/uL Hgb 10.9 L (12.0-16.0) g/dl Hct 35.4 (34.1-44.9) % MCV 89.4 (80.0-100.0) fL MCH 27.5 (25.0-34.0) pg MCHC 30.8 L (32.0-36.0) g/dL RDW Std Deviation 52.8 H (36.4-46.3) fL RDW Coeff of Chantal 16.0 H (11.5-14.5) % Plt Count 150 (130-400) K/uL MPV 10.7 (9.4-12.3) fL Immature Gran % (Auto) 0.6 % Neut % (Auto) 79.0 % Lymph % (Auto) 13.5 % Cascade % (Auto) 5.6 % Eos % (Auto) 0.9 % Baso % (Auto) 0.4 % Neut # (Auto) 5.52 (1.4-6.5) K/uL Lymph # (Auto) 0.94 L (1.2-3.4) K/uL Cascade # (Auto) 0.39 (0.24-0.82) K/uL Eos # (Auto) 0.06 (0-0.50) K/uL Baso # (Auto) 0.03 (0-0.2) K/uL Immature Gran # (Auto) 0.04 H (0.00-0.02) K/uL PT 11.9 (9.0-12.0) Seconds INR 1.1 (0.9-1.1) APTT 27.4 (21.0-31.0) Seconds PTT Ratio 1.0 Sodium 142 (136-145) mmol/L Potassium 4.1 (3.5-5.1) mmol/L Chloride 109 H (98-107) mmol/L Carbon Dioxide 28 (21-32) mmol/L Anion Gap 5 (3-11) BUN 43 H (6-23) mg/dl Creatinine 1.81 H (0.6-1.2) mg/dl Est Cr Clr Drug Dosing 41.6 ml/min Est GFR ( Amer) 33.9 ml/min Est GFR (Non-Af Amer) 29.2 ml/min BUN/Creatinine Ratio 23.8 H (10-20) Glucose 151 H (70-99(Fasting)) mg/dl Calcium 8.5 (8.5-10.1) mg/dl Total Bilirubin 0.7 (0.2-1.0) mg/dl AST 25 (13-39) U/L ALT 14 (7-52) U/L Alkaline Phosphatase 86 (34-104) U/L Total Creatine Kinase 77 (26-192) U/L Troponin I High Sens 14.2 H (0-14) pg/ml Total Protein 6.5 (6.0-8.3) gm/dl Albumin 3.4 (3.4-5.0) gm/dl Globulin 3.1 (2.5-4.0) gm/dl Albumin/Globulin Ratio 1.1 (0.9-2) SARS-CoV-2, RNA, NAAT (NEGATIVE) 06/06/22 Range/Units 23:00 WBC (4.8-10.8) K/ul RBC (3.93-5.22) M/uL Hgb (12.0-16.0) g/dl Hct (34.1-44.9) % MCV (80.0-100.0) fL MCH (25.0-34.0) pg MCHC (32.0-36.0) g/dL RDW Std Deviation (36.4-46.3) fL RDW Coeff of Chantal (11.5-14.5) % Plt Count (130-400) K/uL MPV (9.4-12.3) fL Immature Gran % (Auto) % Neut % (Auto) % Lymph % (Auto) % Cascade % (Auto) % Eos % (Auto) % Baso % (Auto) % Neut # (Auto) (1.4-6.5) K/uL Lymph # (Auto) (1.2-3.4) K/uL Cascade # (Auto) (0.24-0.82) K/uL Eos # (Auto) (0-0.50) K/uL Baso # (Auto) (0-0.2) K/uL Immature Gran # (Auto) (0.00-0.02) K/uL PT (9.0-12.0) Seconds INR (0.9-1.1) APTT (21.0-31.0) Seconds PTT Ratio Sodium (136-145) mmol/L Potassium (3.5-5.1) mmol/L Chloride (98-107) mmol/L Carbon Dioxide (21-32) mmol/L Anion Gap (3-11) BUN (6-23) mg/dl Creatinine (0.6-1.2) mg/dl Est Cr Clr Drug Dosing ml/min Est GFR ( Amer) ml/min Est GFR (Non-Af Amer) ml/min BUN/Creatinine Ratio (10-20) Glucose (70-99(Fasting)) mg/dl Calcium (8.5-10.1) mg/dl Total Bilirubin (0.2-1.0) mg/dl AST (13-39) U/L ALT (7-52) U/L Alkaline Phosphatase (34-104) U/L Total Creatine Kinase (26-192) U/L Troponin I High Sens (0-14) pg/ml Total Protein (6.0-8.3) gm/dl Albumin (3.4-5.0) gm/dl Globulin (2.5-4.0) gm/dl Albumin/Globulin Ratio (0.9-2) SARS-CoV-2, RNA, NAAT NEGATIVE (NEGATIVE) Imaging Data Radiologist's Impression: Preliminary Findings Only See Final Report For Complete Findings CT LEFT HIP: Findings: There is a mildly displaced comminuted fracture of the greater trochanter. The femoral neck is intact. No other fractures identified. No discrete hematoma. No pelvic free fluid. Impression: Fracture of the greater trochanter. Radiologist:Afshin Baker MD [facility] Narrative Physical exam and history were performed. Nursing notes, EMR, and Medication List were personally reviewed. Patient appears to have suffered a mechanical fall at home with injury to her le ft side hip. Patient was able to sit up after the injury but did have an extended downtime of 3 to 4 hours before her got home. Patient arrives via EMS. IV access was established and labs were obtained. The patient does have tenderness mostly in the mid femoral area. She was given IV morphine and IV Zofran. X-rays were performed. Patient's blood work is as above and was reviewed. She does not have a significantly elevated white blood cell count. She is mildly anemic at 10.9, however this seems somewhat stable. INR is 1.1. She is with chronic kidney disease and creatinine is 1.81. Glucose is 130 on [id number] and 151 on lab. Transaminases are not diagnostic. High-sensitivity troponin is slightly elevated at 14.2. CK is normal. X-ray was reviewed and does appear to show at least a greater trochanteric fracture, however does not seem to show obvious femoral neck or inner trochanteric fracture. The patient was sent to CT scan for further evaluation, and this does seem to show a greater trochanteric fracture. Overall the patient does not appear well for discharge. She is not able to ambulate and does have continued pain with movement. Additionally she has a slightly elevated troponin, which may be chronic, but overall she does need further hospital and orthopedic evaluation. The case was discussed with the on- call hospitalist team as well as my attending. Please see their notes for further patient course, plan, and disposition. The chart was completed utilizing [employer] Speech Voice Recognition Software. Grammatical errors, random word insertions, pronoun errors, and incomplete sentences are an occasional consequence of this system due to software limitations, ambient noise, and hardware issues. Any formal questions or concerns about the content, text, or information contained within the body of this dictation should be directly addressed to the provider for clarification. . Impression & Plan Closed fracture of greater trochanter of left femur, Elevated troponin I level, Fall Discharge Plan Visit Data Chief Complaint: Fall ED Provider: Danielle Lozoya ED Midlevel Provider: Eric Valente Discharge Problem: Closed fracture of greater trochanter of left femur, Elevated troponin I level, Fall Patient Disposition: Admitted As Inpatient Discharge Instructions Interventions: ED Discharge Assessment Last Done: 06/07/22 05:22
[2022-06-07] MEDS: HYDROmorphone INJ 0.5 MG/0.5 ML SYR IV PRN ×2 (06:24→14:04)
--- NOTE | 2022-06-07 06:38 | XRay Report ---
XR hip LT 2V w pelvis, XR femur LT 2V routine HISTORY: 61 years-old Female fall acute pain and swelling of the left hip and femur status post fall COMPARISON: CT left hip of same day TECHNIQUE: AP view of the pelvis with 2 views of the left hip and 2 views of the left femur. FINDINGS: PELVIS/LEFT HIP: Demineralized appearance of the bones. There is an acute and comminuted fractures involving the grea ter trochanter with lateral displacement measuring up to approximately 5 mm. Probable intertrochanter ic fracture extension. Mild osteoarthritis of the left hip. The pelvis appears intact. LEFT FEMUR: Acute proximal femoral fracture as above. No additional acute fracture or dislocation jeremy ntified. Osteoarthritis of the knee is a least mild to moderate with [id number] joint effusion . Arterial calcifications. IMPRESSION: Acute, comminuted and mildly displaced greater trochanteric fracture of the left femur wi th probable intertrochanteric fracture extension. Please refer to the CT left hip study of same day f or additional details. ACT 112: Negative or not required by law. The above report was generated using voice recognition software. It may contain grammatical, syntax o r spelling errors. Electronically signed by: Timothy Tracy M.D. 06/07/2022 6:36 AM
[2022-06-07] MEDS: LEVOTHYROXINE SODIUM 50 MCG TABLET PO SCH (07:28)
--- NOTE | 2022-06-07 07:31 | CT Scan Report ---
CT hip LT wo con HISTORY: 61 years-old Female fall, fracture acute pain of the left hip status post fall COMPARISON: CT head and femur radiographs of same day, CT abdomen and pelvis 12/01/2020 TECHNIQUE: Multiple axial CT images of the left hip were obtained without the use of IV contrast. A d ose lowering technique was used consistent with the principals of JESSIKA. FINDINGS: Urinary bladder distention. Rectal wall thickening with partial distention. Vascular calcifications. A cutaneous edema of the left hip and abdominal wall. Demineralized appearance of the bones. Mild ost eoarthritis of the left hip. There is an acute and comminuted fracture of the greater trochanter whic h demonstrates displaced laterally measuring up to 5 mm. Probable fracture extension into the intertr ochanteric left femur. The imaged bony pelvis appears intact. No dislocation. Heterogeneity of the pr oximal quadriceps musculature may represent a degree of intramuscular hemorrhage. IMPRESSION: Acute, comminuted and mildly displaced greater trochanteric fracture of the left femur wi th probable intertrochanteric fracture extension. ACT 112: Negative or not required by law. The above report was generated using voice recognition software. It may contain grammatical, syntax o r spelling errors. Electronically signed by: Timothy Tracy M.D. 06/07/2022 7:30 AM
[2022-06-07] MEDS: INSULIN ASPART PER UNIT SC SCH ×4 (08:00→22:19)
[2022-06-07] MEDS: BUMETANIDE 1 MG TAB PO SCH (09:15)
[2022-06-07] MEDS: CHOLECALCIFEROL 5,000 UNITS 125 MCG TAB PO SCH (09:15)
[2022-06-07] MEDS: METOPROLOL TARTRATE 25 MG TAB PO SCH ×2 (09:15→22:26)
[2022-06-07] MEDS: busPIRone 15 MG TAB PO SCH ×2 (09:15→22:28)
[2022-06-07] MEDS: FOLIC ACID 1 MG TAB PO SCH (09:15)
[2022-06-07] MEDS: CYANOCOBALAMIN (B-12) 2,500 MCG TABLET SL SCH (09:15)
[2022-06-07] MEDS: fluvoxaMINE MALEATE 50 MG TAB PO SCH ×2 (09:15→22:29)
[2022-06-07] MEDS: FENOFIBRATE NANOCRYSTALLIZED 145 MG TABLET PO SCH (09:16)
[2022-06-07] MEDS: PREGABALIN 50 MG CAP PO SCH ×2 (09:18→22:24)
[2022-06-07] MEDS: HYDROCODONE/ACETAMOPHEN 5/325MG TAB PO PRN ×2 (10:02→22:24)
[2022-06-07] MEDS ORDERED: NYSTATIN POWDER 15GM BTL EXT PRN (12:41)
[2022-06-07] MEDS ORDERED: KETOROLAC TROMETHAMINE 15 MG/ML VIAL IV PRN (13:10)
[2022-06-07 14:37] LABS: Appearance Urine Clear (Clear); Bacteria Urine Automated Negative (Negative); Bilirubin Urine Negative (Negative); Blood Urine 1+ (Negative); Color Urine Yellow; Glucose Urine UA Negative (Negative); Ketones Urine Negative (Negative); Leukocyte Esterase Urine Trace (Negative); Nitrite Urine Negative (Negative); Protein Urine 3+ (Negative); RBC Urine Automated 0-4 /hpf (0-4); Specific Gravity Urine 1.013 (1.000-1.030); Urobilinogen Urine Negative (Negative)
--- NOTE | 2022-06-07 15:53 | Orthopedic Consultation ---
Date of Service June 07, 2022 Assessment & Plan (1) Closed fracture of greater trochanter of left femur: -No acute surgical intervention. Greater trochanter fractures with < 50% intertrochanteric extension generally can be treated non-operatively. -Partial (<50%) weightbearing to LLE for 4-6 weeks. Recommend PT/OT. OK for OOB with assistance. -OK to resume Eliquis -Will need close outpatient follow up with repeat XRs in 10-14 days to ensure stability of fracture. -Call with any further questions Dispo: Per PT/OT, anticipate she will need inpatient rehab placement. Discussed with Dr. Martínez. History of Present Illness Reason for Consultation: Left greater trochanter fracture . Requesting Physician: Ray Mims MD . Attending Physician: Ray Baird MD Pt is a 61 y/o/f with extensive PMHx including previous shoulder replacement, left knee osteoarthritis, idiopathic polyneuropathy, TRUMAN on CPAP, hypertension, LVH, OCD, obesity hypoventilation syndrome, COPD, ILD, diabetes mellitus type 2, paroxysmal atrial fibrillation (on chronic Eliquis), CKD stage IV, hyperlipidemia, anxiety and depression, diabetic peripheral neuropathy, diabetic nonproliferative retinopathy, HFpEF, anemia due to chronic disease and vitamin D deficiency who was admitted earlier this morning after suffering a ground level fall at home. She fell onto her left side and had immediate left hip pain afterwards. She was brought to [facility] where XR and CT imaging showed a L greater trochanter with intertrochanteric extension. Orthopedics consulted for definitive management of her hip fracture. Seen at bedside, endorses mild left hip pain at rest, denies LLE numbness/tingling worse than baseline, lumbar pain, dizziness/lightheadedness, chest pain, SOB. Allergies Allergy/AdvReac Type Severity Reaction Status Date / Time promethazine Allergy Unknown BROKEN Verified 04/10/22 11:12 CAPILLARIES FACE Iodinated Contrast Media AdvReac Unknown Unknown Verified 04/10/22 11:12 [Iodinated Contrast- Oral and IV Dye] Home Medications Medication Instructions Recorded Confirmed Type zinc gluconate 100 mg tablet 100 mg PO HS 07/23/18 04/10/22 History lorazepam 1 mg tablet (Ativan) 1 mg PO BID PRN anxiety 03/24/19 04/10/22 History trazodone 50 mg tablet 100 mg PO HS insomnia 04/26/20 04/10/22 History buspirone 15 mg tablet 15 mg PO BID 11/28/20 04/10/22 History multivitamin with minerals 2 tab PO BID 02/26/21 04/10/22 History (Hair,Skin and Nails tablet) multivitamin (Daily Multi-Vitamin 1 tab PO DAILY 04/04/21 04/10/22 History tablet) insulin syringe-needle U-100 0.5 #400 ea 04/12/21 04/10/22 Rx mL 31 gauge x 5/16" (Easy Comfort Insulin Syringe) lancets (OneTouch UltraSoft #400 ea 04/12/21 04/10/22 Rx Lancets) amoxicillin 500 mg tablet 2,000 mg PO ONCE #4 tabs 04/21/21 04/10/22 Rx polysaccharide iron complex 150 mg 150 mg PO HS #60 caps 05/03/21 04/10/22 Rx iron capsule (Ferrex) metoprolol tartrate 25 mg tablet 25 mg PO QAM #90 tabs 05/18/21 04/10/22 Rx omega-3 fatty acids 1,000 mg 1,000 mg PO DAILY 08/21/21 04/10/22 History capsule apixaban 5 mg tablet (Eliquis) 5 mg PO BID #180 tabs 08/30/21 04/10/22 Rx atorvastatin 80 mg tablet 80 mg PO HS #90 tabs 08/30/21 04/10/22 Rx fenofibrate 160 mg tablet 160 mg PO QAM #90 tabs 08/30/21 04/10/22 Rx folic acid 1 mg tablet 1 mg PO QAM #90 tabs 08/30/21 04/10/22 Rx insulin glargine 100 unit/mL 5 unit subcut HS 10/04/21 04/10/22 History subcutaneous solution (Lantus U-100 Insulin) insulin lispro 100 unit/mL 7 unit subcut TIDM 10/04/21 04/10/22 History subcutaneous solution fluvoxamine 100 mg 150 mg PO BID 11/27/21 04/10/22 History capsule,extended release 24 hr pantoprazole 40 mg tablet,delayed 40 mg PO HS #90 tabs 12/07/21 04/10/22 Rx release blood sugar diagnostic #300 ea 01/02/22 04/10/22 Rx epoetin fernando-epbx 40,000 unit/mL 40,000 unit subcut MONTHLY 15 days 01/10/22 04/10/22 Rx injection solution (Retacrit) #15 mL cyanocobalamin (vitamin B-12) 2,500 mcg PO DAILY #30 tabs 01/16/22 04/10/22 Rx 2,500 mcg tablet pregabalin 50 mg capsule (Lyrica) 50 mg PO BID #60 caps 03/01/22 04/10/22 Rx bumetanide 1 mg tablet 1 mg PO DAILY 04/05/22 04/10/22 History cholecalciferol (vitamin D3) 125 125 mcg PO DAILY 04/05/22 04/10/22 History mcg (5,000 unit) capsule levothyroxine 50 mcg tablet 50 mcg PO DAILY #90 tabs 04/09/22 04/10/22 Rx scopolamine base 1 mg over 3 days 1 patch transdermal Q3D PRN nausea 05/08/22 Rx transdermal patch and vomiting #4 ea nystatin 100,000 unit/gram topical 1 applic topical TID PRN Rash #60 06/01/22 Rx powder grams Past Med/Surg History Medical History Acute renal failure (05/23/14) 2013. Kidneys recovered to around CKD III, then function worsened around 04/2020. Afib dx August 2020> cardioversions x2. Xarelto > follows Dr. Fontaine > no pacer Anemia due to chronic kidney disease Anxiety and depression Arthralgia of multiple sites AV fistula September 07, 2020 > right wrist > not on dialysis at present Avascular necrosis of head of humerus Cardiac murmur Mild TR noted on 2019 echo. Chronic kidney disease, stage 4 (severe) F/U [facility]- nephrology Chronic low back pain Chronic rhinitis Chronic sinusitis Claustrophobia Diabetes Diabetic nephropathy Diabetic peripheral neuropathy Diabetic retinopathy, nonproliferative Diastolic congestive heart failure Euvolemic on exam at [facility] 09/02/20. follows with Dr. 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 Per [facility] pulm 12/2019, "fairly stable from a pulmonary perspective. She is short of breath with any exertion, however a large part of this is likely related to obesity. Pulmonary functions done 1 year ago showed only a mild restrictive pattern. Diffusion was slightly decreased to 66%. One year ago she did have a normal arterial blood gas with no evidence of CO2 retention." Using PRN 3L, mostly using with exertion, not using every day. Morbid obesity Nasal septal deviation Nocturnal hypoxia no 02 Nontoxic multinodular goiter TRUMAN (obstructive sleep apnea) PRESCRIBED BIPAP-CAN'T TOLERATE-CLAUSTROPHOBIC Sore throat Syncope Syncope Vitamin D deficiency Surgical History H/O section x1 History of arthroscopy x2 left shoulder History of colonoscopy History of dermoid cyst excision History of esophagogastroduodenoscopy (EGD) History of mandibular surgery FULL ROM History of total shoulder replacement LEFT 07/19 2015 fracture Hx of cholecystectomy Hx of gastric bypass Hx of right cataract extraction S/P tooth extraction Family History Daughter Bipolar disorder Multiple allergies Aunt Breast cancer Mother Diabetes Heart disease Hypertension Hyperthyroidism Father Hearing loss Gastric cancer Myocardial infarction Grandfather Heart disease Family/Other Hypertension Lung cancer Osteoporosis Stroke Brother Hypertension Grandmother Ovarian cancer Sister Migraine Diabetes Denies family history of Prostate cancer Colorectal cancer Uterine cancer Social History Smoking Status: Never smoker Second Hand Exposure: No; Hx Alcohol Use: No Hx Substance Use: No Preferred Language: Ukrainian Communication Ability: Effective Visual Impairment: No Limitations Teacher Theater Arts Required: No Beliefs That Will Affect Care: Worship marital status: Single Current Living Situation: Spouse Current Living Situation Comment: Home w/ current occupational status: unemployed Feels Safe at Home: Yes Childhood Exposure to Second-Hand Smoke: Yes Dental Care, Regularly: Yes Physical Activity Frequency: Does not Exercise Seatbelt Use: never Sunscreen Use: Yes Assistive Devices: Glasses Review of Systems All systems reviewed & are unremarkable except as noted in HPI & below. Physical Exam General: Pleasant, chronically ill appearing 61 y/o/f resting comfortably in bed in NAD. AAO x 4. LLE: She has tenderness to greater trochanter extending into groin. Leg lengths are equal without significant internal/external rotation. Distal sensory deficit is present, preserved motor function. Good capillary refill distally. Results & Data Results & Data Laboratory Results Reviewed . Diagnostic Findings Imaging reviewed and agree with interpretation. There is a mildly displaced and comminuted L greater trochanter fracture with < 50% intertrochanteric extension. . PG Care Time/CCT Total # of Minutes Spent Total Time Spent with Patient: Total time spent is greater than 50% in coordination of care (as documented) at patient's floor/unit and/or counseling patient: Supervising Physician Co-Signing Physician Notes Radiographs and CT reviewed. Chart Reviewed. Patient seen and evaluated. I reviewed the diagnosis and recommended treatment with her. TRENT note. Coding Level of Care Code 77756 Inpt Consult Level 3 Diagnoses Closed fracture of greater trochanter of left femur S72.112A
[2022-06-07] MEDS: KETOROLAC 30 MG/ML VIAL IV PRN (16:09)
[2022-06-07] MEDS: APIXABAN 5 MG TABLET PO SCH (22:25)
[2022-06-07] MEDS: traZODone HCL 100 MG TAB PO SCH (22:27)
[2022-06-07] MEDS: PANTOprazole 40 MG TAB PO SCH (22:27)
[2022-06-07] MEDS: IRON POLYSACCHARIDE COMPLEX 150 MG CAPSULE PO SCH (22:28)
[2022-06-07] MEDS: ATORVASTATIN 40 MG TAB PO SCH (22:28)
[2022-06-07] MEDS: ZINC SULFATE 220 MG CAPSULE PO SCH (22:30)
[2022-06-07] MEDS: DOCUSATE SODIUM/SENNA 50/8.6MG TAB PO SCH (22:32)
[2022-06-08] MEDS: HYDROmorphone INJ 0.5 MG/0.5 ML SYR IV PRN (00:09)
[2022-06-08] MEDS: LEVOTHYROXINE SODIUM 50 MCG TABLET PO SCH (06:11)
[2022-06-08] MEDS: APIXABAN 5 MG TABLET PO SCH ×2 (07:41→21:02)
[2022-06-08] MEDS: FOLIC ACID 1 MG TAB PO SCH (07:41)
[2022-06-08] MEDS: CHOLECALCIFEROL 5,000 UNITS 125 MCG TAB PO SCH (07:41)
[2022-06-08] MEDS: fluvoxaMINE MALEATE 50 MG TAB PO SCH ×2 (07:41→21:04)
[2022-06-08] MEDS: FENOFIBRATE NANOCRYSTALLIZED 145 MG TABLET PO SCH (07:41)
[2022-06-08] MEDS: BUMETANIDE 1 MG TAB PO SCH (07:41)
[2022-06-08] MEDS: METOPROLOL TARTRATE 25 MG TAB PO SCH ×2 (07:42→21:00)
[2022-06-08] MEDS: busPIRone 15 MG TAB PO SCH ×2 (07:43→21:02)
[2022-06-08] MEDS: CYANOCOBALAMIN (B-12) 2,500 MCG TABLET SL SCH (07:43)
[2022-06-08] MEDS: PREGABALIN 50 MG CAP PO SCH ×2 (07:46→21:06)
[2022-06-08] MEDS: INSULIN ASPART PER UNIT SC SCH ×4 (09:01→20:38)
[2022-06-08 09:54] LABS: Basophils # (auto) 0.03 K/uL (0-0.2); Basophils % (auto) 0.4 %; Eosinophils # (auto) 0.01 K/uL (0-0.50); Eosinophils % (auto) 0.1 %; Hematocrit (blood only) 31.6 % (34.1-44.9); Hemoglobin 9.6 g/dl (12.0-16.0); Immature Granulocytes # (auto) 0.03 K/uL (0.00-0.02); Immature Granulocytes % (auto) 0.4 %; Lymphocytes # (auto) 0.55 K/uL (1.2-3.4); Lymphocytes % (auto) 7.8 %; Mean Corpuscular Hemoglobin 27.7 pg (25.0-34.0); Mean Corpuscular Hgb Conc 30.4 g/dL (32.0-36.0); Mean Corpuscular Volume 91.1 fL (80.0-100.0); Mean Platelet Volume 11.4 fL (9.4-12.3); Monocytes # (auto) 0.34 K/uL (0.24-0.82); Monocytes % (auto) 4.8 %; Neutrophils # (auto) 6.11 K/uL (1.4-6.5); Neutrophils % (auto) 86.5 %; Platelet Count 117 K/uL (130-400); RDW Standard Deviation 52.9 fL (36.4-46.3); Red Blood Count 3.47 M/uL (3.93-5.22); White Blood Count 7.07 K/ul (4.8-10.8)
[2022-06-08 10:27] LABS: Albumin Level 2.8 gm/dl (3.4-5.0); BUN Creatinine Ratio 22.1 (10-20); Calcium 7.6 mg/dl (8.5-10.1); Creatinine Clr Calc Pharmacy 28.7 ml/min; Est GFR (African American) 21.6 ml/min; Est GFR (Non-African American) 18.6 ml/min; Magnesium 1.6 mg/dl (1.7-2.4); Phosphorus 5.8 mg/dl (2.5-4.9); Potassium 5.1 mmol/L (3.5-5.1)
[2022-06-08] MEDS: HYDROCODONE/ACETAMOPHEN 5/325MG TAB PO PRN (10:39)
[2022-06-08 12:56] LABS: Estimated Average Glucose 177 mg/dl; Hemoglobin A1C 7.8 % (4.5-5.6)
--- NOTE | 2022-06-08 17:35 | Hospitalist Progress Note ---
Date of Service June 08, 2022 Assessment & Plan (1) Closed fracture of greater trochanter of left femur: Plan: Managed conservatively, pain management, pending placement (2) Idiopathic polyneuropathy: (3) Obstructive sleep apnea on CPAP: (4) HTN (hypertension): Plan: Controlled continue current manage (5) Obsessive compulsive disorder: (6) Obesity hypoventilation syndrome: Plan: From respiratory status placed in a stable (7) COPD (chronic obstructive pulmonary disease): Plan: No wheezing on exam (8) Type 2 diabetes mellitus: Plan: Resume glargine, fairly controlled, continue lispro 7 units before meals, patient takes glargine 5 units at bedtime (9) PAF (paroxysmal atrial fibrillation): Plan: Resume apixaban currently rate controlled continue current management (10) Hypothyroidism: (11) Hyperlipemia: (12) Hypercholesterolemia: (13) Mixed restrictive and obstructive lung disease: (14) Chronic kidney disease, stage 4 (severe): Plan Closed left greater trochanter fracture- Will not make n.p.o. at this time as patient is on Eliquis, which will be held Acetaminophen 650 mg p.o. every 6 hours. Mild pain or fever [place] 5/325, 1 every 4 hours as needed for moderate pain Dilaudid 0.5 mg IV every 4 hours as needed for severe pain Zofran 4 mg IV every 6 hours as needed Consult orthopedic surgery, sees Dr. New Paroxysmal atrial fibrillation/hypertension- Hold apixaban Change metoprolol to tartrate 1225 mg p.o. every morning to 5012.5 mg p.o. twice daily Follow-up on medical telemetry Diabetes mellitus- Hold glargine 5 units subcu at bedtime, and lispro 7 units subcu 3 times daily with meals Placed on Accu-Cheks before meals and at bedtime with NovoLog coverage per sliding scale Check hemoglobin A1c Hyperlipidemia- Continue atorvastatin 80 mg at bedtime and fenofibrate 160 mg every morning Anxiety and depression- Continue buspirone 15 mg p.o. twice daily, fluvoxamine 150 mg p.o. twice daily, lorazepam 1 mg p.o. twice daily as needed, pregabalin 50 mg p.o. twice daily and trazodone 100 mg p.o. at bedtime as needed GERD- Continue pantoprazole 40 mg at bedtime Hypothyroidism- Continue levothyroxine 50 mcg daily Vit B12 deficiency- Continue 2500 mcg p.o. daily Admission and Anticipated Discharge Date Admission Date: June 07, 2022 Subjective Pain is fairly managed however, patient has not been seen by PT yet, pain may be triggered by physical activity for now continue current management Physical Exam Physical Exam: The patient is awake, alert and oriented 3, well developed and well nourished, normocephalic and atraumatic, lying in bed and in no acute distress. HEENT--PERRL, EOMI, mucous membranes and oropharynx normal. Neck--supple. No JVD. No bruits. Thyroid normal, trachea midline, no adenopathy. Heart--normal S1 and S2. No murmurs, rubs or gallops. Lungs--clear bilaterally, no respiratory distress, no accessory muscle use. Abdomen--normal bowel sounds and soft. Nontender. Nondistended. Morbidly obese Extremities--no cyanosis or clubbing. No edema. Dermatologic--normal skin turgor, normal color, no abnormal lymph nodes, no rash. Neurologic--cranial nerves II through XII grossly intact. Rheumatologic--limited exam Psychiatric--normal affect. Results & Data Results & Data ([facility]) Vital Signs (Past 12 Hours) Vital Signs Temp Pulse Pulse Resp BP Pulse Ox O2 Del Method 06/08/22 14:04 56 L 06/08/22 16:27 36.9 C 56 L 20 125/62 98 Nasal Cannula 06/08/22 06:11 66 06/08/22 11:28 36.9 C 72 18 125/70 99 Nasal Cannula 06/08/22 08:05 94 Nasal Cannula 06/08/22 08:00 89 L Room Air 06/08/22 07:33 36.8 C 71 18 108/57 L 95 Nasal Cannula O2 Flow Rate 06/08/22 14:04 06/08/22 16:27 2 06/08/22 06:11 06/08/22 11:28 2 06/08/22 08:05 2 06/08/22 08:00 06/08/22 07:33 1 PG Care Time/CCT Total # of Minutes Spent Total Time Spent with Patient: Total time spent is greater than 50% in coordination of care (as documented) at patient's floor/unit and/or counseling patient: Coding Level of Care Code 57738 Subseq Obs Care Lvl 2 Diagnoses Closed fracture of greater trochanter of left femur S72.112A Idiopathic polyneuropathy G60.9 Obstructive sleep apnea on CPAP G47.33; Z99.89 HTN (hypertension) I10 Obsessive compulsive disorder F42.9 Obesity hypoventilation syndrome E66.2 COPD (chronic obstructive pulmonary disease) J44.9 Type 2 diabetes mellitus E11.69; Z79.4 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: with truck terminal manager use Diabetes mellitus complication status: with other specified complication PAF (paroxysmal atrial fibrillation) I48.0 Hypothyroidism E03.9 Hyperlipemia E78.5 Hypercholesterolemia E78.00 Mixed restrictive and obstructive lung disease J44.9; J98.4 Chronic kidney disease, stage 4 (severe) N18.4 (1) Type 2 diabetes mellitus Diabetes mellitus jail insulin use: with truck terminal manager use Diabetes mellitus complication status: with other specified complication Qualified Code(s): E11.69 - Type 2 diabetes mellitus with other specified complication; Z79.4 - correction (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
[2022-06-08] MEDS: LANTUS PER UNIT CHARGE SQ SCH (20:58)
[2022-06-08] MEDS: PANTOprazole 40 MG TAB PO SCH (20:59)
[2022-06-08] MEDS: ATORVASTATIN 40 MG TAB PO SCH (20:59)
[2022-06-08] MEDS ORDERED: APIXABAN 5 MG TABLET PO SCH (21:00)
[2022-06-08] MEDS: traZODone HCL 100 MG TAB PO SCH (21:02)
[2022-06-08] MEDS: ZINC SULFATE 220 MG CAPSULE PO SCH (21:03)
[2022-06-08] MEDS: IRON POLYSACCHARIDE COMPLEX 150 MG CAPSULE PO SCH (21:04)
[2022-06-08] MEDS: DOCUSATE SODIUM/SENNA 50/8.6MG TAB PO SCH (21:05)
--- NOTE | 2022-06-08 22:19 | Electrocardiogram Report ---
Test Reason : Blood Pressure : / mmHG Vent. Rate : 054 BPM Atrial Rate : 054 BPM P-R Int : 190 ms QRS Dur : 098 ms QT Int : 422 ms P-R-T Axes : 063 -20 028 degrees QTc Int : 400 ms Sinus bradycardia Poor R wave progression, consider anterior MA vs. lead placement vs. LVH Abnormal ECG When compared with ECG of 03-MAR-2021 06:14, Premature atrial complexes are no longer Present ME interval has decreased QRS duration has decreased Confirmed by Amaury Perry ([id number]) on 06/08/2022 10:19:12 PM Referred By: REFERRED SELF Confirmed By:Amaury Perry
[2022-06-09] MEDS: LEVOTHYROXINE SODIUM 50 MCG TABLET PO SCH (05:50)
[2022-06-09] MEDS: HYDROCODONE/ACETAMOPHEN 5/325MG TAB PO PRN (06:07)
[2022-06-09 07:26] LABS: Basophils # (auto) 0.02 K/uL (0-0.2); Basophils % (auto) 0.4 %; Eosinophils % (auto) 1.8 %; Hematocrit (blood only) 30.9 % (34.1-44.9); Hemoglobin 9.4 g/dl (12.0-16.0); Immature Granulocytes # (auto) 0.02 K/uL (0.00-0.02); Immature Granulocytes % (auto) 0.4 %; Lymphocytes # (auto) 2.02 K/uL (1.2-3.4); Lymphocytes % (auto) 35.6 %; Mean Corpuscular Hemoglobin 27.5 pg (25.0-34.0); Mean Corpuscular Hgb Conc 30.4 g/dL (32.0-36.0); Mean Corpuscular Volume 90.4 fL (80.0-100.0); Mean Platelet Volume 11.7 fL (9.4-12.3); Monocytes # (auto) 0.46 K/uL (0.24-0.82); Monocytes % (auto) 8.1 %; Neutrophils # (auto) 3.06 K/uL (1.4-6.5); Neutrophils % (auto) 53.7 %; Platelet Count 132 K/uL (130-400); RDW Coefficient of Variation 15.9 % (11.5-14.5); RDW Standard Deviation 52.7 fL (36.4-46.3); Red Blood Count 3.42 M/uL (3.93-5.22); White Blood Count 5.68 K/ul (4.8-10.8)
[2022-06-09 07:27] LABS: Albumin Level 2.6 gm/dl (3.4-5.0); BUN Creatinine Ratio 23.4 (10-20); Calcium 7.6 mg/dl (8.5-10.1); Est GFR (African American) 16.7 ml/min; Est GFR (Non-African American) 14.4 ml/min; Magnesium 1.8 mg/dl (1.7-2.4); Phosphorus 6.1 mg/dl (2.5-4.9); Potassium 5.3 mmol/L (3.5-5.1)
[2022-06-09] MEDS ORDERED: INSULIN ASPART PER UNIT SC SCH (08:00)
[2022-06-09] MEDS: INSULIN ASPART PER UNIT SC SCH ×4 (08:33→20:58)
[2022-06-09] MEDS: fluvoxaMINE MALEATE 50 MG TAB PO SCH ×2 (08:39→20:42)
[2022-06-09] MEDS: HYDROmorphone INJ 0.5 MG/0.5 ML SYR IV PRN (08:39)
[2022-06-09] MEDS: PREGABALIN 50 MG CAP PO SCH ×2 (08:39→20:58)
[2022-06-09] MEDS: FOLIC ACID 1 MG TAB PO SCH (08:40)
[2022-06-09] MEDS: busPIRone 15 MG TAB PO SCH ×2 (08:40→20:41)
[2022-06-09] MEDS: FENOFIBRATE NANOCRYSTALLIZED 145 MG TABLET PO SCH (08:40)
[2022-06-09] MEDS: APIXABAN 5 MG TABLET PO SCH ×2 (08:40→20:42)
[2022-06-09] MEDS: METOPROLOL TARTRATE 25 MG TAB PO SCH ×2 (08:40→20:40)
[2022-06-09] MEDS: CHOLECALCIFEROL 5,000 UNITS 125 MCG TAB PO SCH (08:43)
[2022-06-09] MEDS: CYANOCOBALAMIN (B-12) 2,500 MCG TABLET SL SCH (08:43)
[2022-06-09] MEDS: BUMETANIDE 1 MG TAB PO SCH (08:43)
[2022-06-09] MEDS: oxyCODONE HCL 15 MG TABCR (OxyCONTIN) PO SCH (10:58)
[2022-06-09] MEDS: LACTULOSE SYRUP 30 GM/45 ML UDP PO SCH ×3 (11:51→20:43)
[2022-06-09] MEDS: KETOROLAC 30 MG/ML VIAL IV PRN (14:22)
--- NOTE | 2022-06-09 17:44 | Hospitalist Progress Note ---
Date of Service June 09, 2022 Assessment & Plan (1) Closed fracture of greater trochanter of left femur: Plan: Complains of severe pain with ambulation, started on long-acting narcotic (oxycodone extended release) (2) PATY (acute kidney injury): Plan: Acute kidney injury on chronic kidney disease, complicated with hyperkalemia creatinine increased to 3.25, potassium increased to 5.3 -Proceed with IV fluids saline at rate of 125 Stop Bumex -Bladder scan, if there is no improvement proceed with ultrasound kidney -Baseline creatinine is around 2, constipation could be contributing factor Patient has 3+ proteinuria, patient most likely suffering from diabetic nephropathy, proceed with protein to creatinine urine random ratio -We will ask for nephrology consult (3) Diabetic nephropathy with proteinuria: Plan: Complicated with hypoalbuminemia, and proteinuria (4) Diastolic CHF: Plan: The most recent echocardiogram showed diastolic dysfunction grade 1 Hold Bumex for now (5) Chronic kidney disease, stage 4 (severe): Plan: Most likely secondary to diabetic nephropathy (6) Hypoalbuminemia: Plan: Most likely secondary to proteinuria as well as fatty liver disease (7) Fatty (change of) liver, not elsewhere classified: Plan: The most recent ultrasound of the liver showed fatty liver disease, morbid obesity could be contributing factor (8) Hyperlipemia: (9) Idiopathic polyneuropathy: Plan: Continue home management (10) Obstructive sleep apnea on CPAP: (11) HTN (hypertension): Plan: Controlled continue current manage (12) Obesity hypoventilation syndrome: Plan: From respiratory status the patient is stable (13) COPD (chronic obstructive pulmonary disease): Plan: No wheezing on exam (14) Type 2 diabetes mellitus: Plan: Resume glargine, fairly controlled, continue lispro 7 units before meals, patient takes glargine 5 units at bedtime (15) PAF (paroxysmal atrial fibrillation): Plan: Resume apixaban currently rate controlled continue current management (16) Hypothyroidism: Plan Closed left greater trochanter fracture- Will not make n.p.o. at this time as patient is on Eliquis, which will be held Acetaminophen 650 mg p.o. every 6 hours. Mild pain or fever [place] 5/325, 1 every 4 hours as needed for moderate pain Dilaudid 0.5 mg IV every 4 hours as needed for severe pain Zofran 4 mg IV every 6 hours as needed Consult orthopedic surgery, sees Dr. New Paroxysmal atrial fibrillation/hypertension- Hold apixaban Change metoprolol to tartrate 1225 mg p.o. every morning to 5012.5 mg p.o. twice daily Follow-up on medical telemetry Diabetes mellitus- Hold glargine 5 units subcu at bedtime, and lispro 7 units subcu 3 times daily with meals Placed on Accu-Cheks before meals and at bedtime with NovoLog coverage per sliding scale Check hemoglobin A1c Hyperlipidemia- Continue atorvastatin 80 mg at bedtime and fenofibrate 160 mg every morning Anxiety and depression- Continue buspirone 15 mg p.o. twice daily, fluvoxamine 150 mg p.o. twice daily, lorazepam 1 mg p.o. twice daily as needed, pregabalin 50 mg p.o. twice daily and trazodone 100 mg p.o. at bedtime as needed GERD- Continue pantoprazole 40 mg at bedtime Hypothyroidism- Continue levothyroxine 50 mcg daily Vit B12 deficiency- Continue 2500 mcg p.o. daily Admission and Anticipated Discharge Date Admission Date: June 07, 2022 Subjective Patient complaining of excruciating pain with ambulation started on long-acting oxycodone today, no bowel movements despite being on MiraLAX, add lactulose creatinine is trending up, stop Bumex, start IV fluid, hyperkalemic Review of Systems Review of Systems: The patient denies chest pain, palpitations, shortness of breath, dyspnea on exertion, cough, lower extremity swelling, sore throat, fevers, chills, sweats, weight change, fatigue, nausea, vomiting, diarrhea , constipation, abdominal pain, pelvic pain, blood in urine or stool, dysuria, urinary frequency or urgency, lightheadedness, dizziness, headache, memory loss, loss of consciousness, rash, abnormal bruising or bleeding, focal or generalized weakness, numbness or tingling in arms, generalized arthralgias or myalgias, back or neck pain, or night sweats. The review of systems is otherwise negative other than for that already noted above, and at least 10 systems have been reviewed. Physical Exam Physical Exam: The patient is awake, alert and oriented 3, well developed and well nourished, normocephalic and atraumatic, lying in bed and in no acute distress. HEENT--PERRL, EOMI, mucous membranes and oropharynx normal. Neck--supple. No JVD. No bruits. Thyroid normal, trachea midline, no adenopathy. Heart--normal S1 and S2. No murmurs, rubs or gallops. Lungs--clear bilaterally, no respiratory distress, no accessory muscle use. Abdomen--normal bowel sounds and soft. Nontender. Nondistended. Morbidly obese Extremities--no cyanosis or clubbing. No edema. Dermatologic--normal skin turgor, normal color, no abnormal lymph nodes, no rash. Neurologic--cranial nerves II through XII grossly intact. Rheumatologic--limited exam Psychiatric--normal affect. Results & Data Results & Data ([facility]) Vital Signs (Past 12 Hours) Vital Signs Temp Pulse Pulse Resp BP Pulse Ox O2 Del Method 06/09/22 17:24 36.8 C 71 146/69 H 92 Room Air 06/09/22 06:01 59 L 06/09/22 12:00 36.8 C 59 L 19 129/71 93 Room Air 06/09/22 09:01 97 Room Air 06/09/22 08:18 36.5 C 56 L 18 152/75 H 99 Nasal Cannula O2 Flow Rate 06/09/22 17:24 06/09/22 06:01 06/09/22 12:00 06/09/22 09:01 06/09/22 08:18 2 PG Care Time/CCT Total # of Minutes Spent Total Time Spent with Patient: Total time spent is greater than 50% in coordination of care (as documented) at patient's floor/unit and/or counseling patient: Coding Level of Care Code 21649 Subseq Hosp Care Lvl 3 Diagnoses Closed fracture of greater trochanter of left femur S72.112A PATY (acute kidney injury) N17.9 Diabetic nephropathy with proteinuria E11.21 Diastolic CHF I50.30 Chronic kidney disease, stage 4 (severe) N18.4 Hypoalbuminemia E88.09 Fatty (change of) liver, not elsewhere classified K76.0 Hyperlipemia E78.5 Idiopathic polyneuropathy G60.9 Obstructive sleep apnea on CPAP G47.33; Z99.89 HTN (hypertension) I10 Obesity hypoventilation syndrome E66.2 COPD (chronic obstructive pulmonary disease) J44.9 Type 2 diabetes mellitus E11.69; Z79.4 Diabetes mellitus group home insulin use: with group home use Diabetes mellitus complication status: with other specified complication PAF (paroxysmal atrial fibrillation) I48.0 Hypothyroidism E03.9 (1) Type 2 diabetes mellitus 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
[2022-06-09] MEDS: SODIUM CHLORIDE 0.9% 1000ML 1,000 ML IV SCH (18:22)
[2022-06-09] MEDS: IRON POLYSACCHARIDE COMPLEX 150 MG CAPSULE PO SCH (20:40)
[2022-06-09] MEDS: PANTOprazole 40 MG TAB PO SCH (20:40)
[2022-06-09] MEDS: traZODone HCL 100 MG TAB PO SCH (20:41)
[2022-06-09] MEDS: ATORVASTATIN 40 MG TAB PO SCH (20:41)
[2022-06-09] MEDS: ZINC SULFATE 220 MG CAPSULE PO SCH (20:42)
[2022-06-09] MEDS: LANTUS PER UNIT CHARGE SQ SCH (20:58)
[2022-06-09] MEDS ORDERED: LACTULOSE SYRUP 30 GM/45 ML UDP PO SCH (21:00)
[2022-06-09] MEDS: DOCUSATE SODIUM/SENNA 50/8.6MG TAB PO SCH (22:07)
[2022-06-10] MEDS: oxyCODONE HCL 15 MG TABCR (OxyCONTIN) PO SCH ×3 (00:27→22:37)
[2022-06-10] MEDS: HYDROCODONE/ACETAMOPHEN 5/325MG TAB PO PRN (01:52)
[2022-06-10] MEDS: SODIUM CHLORIDE 0.9% 1000ML 1,000 ML IV SCH ×3 (03:42→22:37)
[2022-06-10] MEDS: LEVOTHYROXINE SODIUM 50 MCG TABLET PO SCH (05:56)
[2022-06-10 06:41] LABS: BUN Creatinine Ratio 22.7 (10-20); Calcium 7.5 mg/dl (8.5-10.1); Creatinine Clr Calc Pharmacy 22.2 ml/min; Est GFR (African American) 15.6 ml/min; Est GFR (Non-African American) 13.5 ml/min
[2022-06-10] MEDS: METOPROLOL TARTRATE 25 MG TAB PO SCH ×2 (07:19→18:54)
[2022-06-10] MEDS: busPIRone 15 MG TAB PO SCH ×2 (07:22→18:51)
[2022-06-10] MEDS: APIXABAN 5 MG TABLET PO SCH ×2 (07:23→18:53)
[2022-06-10] MEDS: fluvoxaMINE MALEATE 50 MG TAB PO SCH ×2 (07:23→18:51)
[2022-06-10] MEDS: CHOLECALCIFEROL 5,000 UNITS 125 MCG TAB PO SCH (07:24)
[2022-06-10] MEDS: FENOFIBRATE NANOCRYSTALLIZED 145 MG TABLET PO SCH (07:24)
[2022-06-10] MEDS: FOLIC ACID 1 MG TAB PO SCH (07:24)
[2022-06-10] MEDS: LACTULOSE SYRUP 30 GM/45 ML UDP PO SCH ×4 (07:25→18:53)
[2022-06-10] MEDS: CYANOCOBALAMIN (B-12) 2,500 MCG TABLET SL SCH (07:25)
[2022-06-10] MEDS: PREGABALIN 50 MG CAP PO SCH ×2 (07:27→18:55)
[2022-06-10] MEDS: INSULIN ASPART PER UNIT SC SCH ×4 (09:02→21:24)
[2022-06-10 10:11] LABS: Creatinine Urine Random 81.1 mg/dl; Protein Creatinine Ratio Urine 1.3 (0-0.2)
--- NOTE | 2022-06-10 10:18 | Ultrasound Report ---
RENAL ULTRASOUND CLINICAL HISTORY: Acute kidney injury. COMPARISON STUDY: CT of the abdomen and pelvis December 01, 2020 TECHNIQUE: Sonography of the kidneys and the urinary bladder was performed. FINDINGS: The right kidney measures 12.7 cm in maximal dimension and the left measures 12.4 cm. The l eft kidney is partially obscured. There is moderate renal cortical thinning. There is no hydronephros is. A 1.6 cm right midpole cyst is noted. A 1.4 cm left mid pole cyst is present. No renal calculi ar e identified. Bladder is collapsed. IMPRESSION: 1. No hydronephrosis. 2. Moderate bilateral renal cortical thinning. ACT 112: Negative or not required by law. Electronically signed by: Ahsan Rebolledo M.D. 06/10/2022 10:15 AM
[2022-06-10] MEDS: PATIROMER CALCIUM SORBITEX 8.4 GM PACK PO SCH (10:31)
--- NOTE | 2022-06-10 14:17 | Hospitalist Progress Note ---
Date of Service June 10, 2022 Assessment & Plan (1) Closed fracture of greater trochanter of left femur: Plan: Complains of severe pain with ambulation, started on long-acting narcotic (oxycodone extended release) (2) PATY (acute kidney injury): Plan: -Continue IV fluid, creatinine trending up, however I expect the creatinine trending down tomorrow, hyperkalemia has resolved, continue IV fluid, continue holding Bumex, bladder scan did not show significant postvoid residual volume, pending nephrology consult, patient have significant proteinuria most likely secondary to diabetes induced nephropathy, protein to creatinine ratio is 1.3, ultrasound of the kidneys did not show any hydronephrosis, however showed bilateral moderate cortical thinning (3) Diabetic nephropathy with proteinuria: Plan: Complicated with hypoalbuminemia, and proteinuria (4) Diastolic CHF: Plan: The most recent echocardiogram showed diastolic dysfunction grade 1 Hold Bumex for now (5) Chronic kidney disease, stage 4 (severe): Plan: Most likely secondary to diabetic nephropathy (6) Hypoalbuminemia: Plan: Most likely secondary to proteinuria as well as fatty liver disease (7) Fatty (change of) liver, not elsewhere classified: Plan: The most recent ultrasound of the liver showed fatty liver disease, morbid obesity could be contributing factor (8) Hyperlipemia: Plan: Continue home (9) Idiopathic polyneuropathy: Plan: Continue home management (10) Obstructive sleep apnea on CPAP: (11) HTN (hypertension): Plan: Controlled continue current manage (12) Obesity hypoventilation syndrome: Plan: From respiratory status the patient is stable (13) COPD (chronic obstructive pulmonary disease): Plan: No wheezing on exam (14) Type 2 diabetes mellitus: Plan: Resume glargine, fairly controlled, continue lispro 7 units before meals, patient takes glargine 5 units at bedtime (15) PAF (paroxysmal atrial fibrillation): Plan: Resume apixaban currently rate controlled continue current management (16) Hypothyroidism: Plan Closed left greater trochanter fracture- Will not make n.p.o. at this time as patient is on Eliquis, which will be held Acetaminophen 650 mg p.o. every 6 hours. Mild pain or fever [place] 5/325, 1 every 4 hours as needed for moderate pain Dilaudid 0.5 mg IV every 4 hours as needed for severe pain Zofran 4 mg IV every 6 hours as needed Consult orthopedic surgery, sees Dr. New Paroxysmal atrial fibrillation/hypertension- Hold apixaban Change metoprolol to tartrate 1225 mg p.o. every morning to 5012.5 mg p.o. twice daily Follow-up on medical telemetry Diabetes mellitus- Hold glargine 5 units subcu at bedtime, and lispro 7 units subcu 3 times daily with meals Placed on Accu-Cheks before meals and at bedtime with NovoLog coverage per sliding scale Check hemoglobin A1c Hyperlipidemia- Continue atorvastatin 80 mg at bedtime and fenofibrate 160 mg every morning Anxiety and depression- Continue buspirone 15 mg p.o. twice daily, fluvoxamine 150 mg p.o. twice daily, lorazepam 1 mg p.o. twice daily as needed, pregabalin 50 mg p.o. twice daily and trazodone 100 mg p.o. at bedtime as needed GERD- Continue pantoprazole 40 mg at bedtime Hypothyroidism- Continue levothyroxine 50 mcg daily Vit B12 deficiency- Continue 2500 mcg p.o. daily Admission and Anticipated Discharge Date Admission Date: June 07, 2022 Subjective The patient had multiple bowel movements today, the pain is much better tolerable, hyperkalemia has resolved, creatinine is trending up however I expect that trending down tomorrow with IV fluid resuscitation, patient has more than 1 g proteinuria as per protein to creatinine ratio Physical Exam Physical Exam: The patient is awake, alert and oriented 3, well developed and well nourished, normocephalic and atraumatic, lying in bed and in no acute distress. HEENT--PERRL, EOMI, mucous membranes and oropharynx normal. Neck--supple. No JVD. No bruits. Thyroid normal, trachea midline, no adenopathy. Heart--normal S1 and S2. No murmurs, rubs or gallops. Lungs--clear bilaterally, no respiratory distress, no accessory muscle use. Abdomen--normal bowel sounds and soft. Nontender. Nondistended. Morbidly obese Extremities--no cyanosis or clubbing. No edema. Dermatologic--normal skin turgor, normal color, no abnormal lymph nodes, no rash. Neurologic--cranial nerves II through XII grossly intact. Rheumatologic--limited exam Psychiatric--normal affect. Results & Data Results & Data ([facility]) Vital Signs (Past 12 Hours) Vital Signs Temp Pulse Pulse Resp BP Pulse Ox O2 Del Method 06/10/22 12:13 36.7 C 77 19 148/72 H 92 Room Air 06/10/22 07:27 36.9 C 65 129/74 92 Room Air 06/10/22 03:45 66 06/10/22 03:18 36.8 C 63 18 102/64 91 Room Air PG Care Time/CCT Total # of Minutes Spent Total Time Spent with Patient: Total time spent is greater than 50% in coordination of care (as documented) at patient's floor/unit and/or counseling patient: Coding Level of Care Code 85167 Subseq Hosp Care Lvl 3 Diagnoses Closed fracture of greater trochanter of left femur S72.112A PATY (acute kidney injury) N17.9 Diabetic nephropathy with proteinuria E11.21 Diastolic CHF I50.30 Chronic kidney disease, stage 4 (severe) N18.4 Hypoalbuminemia E88.09 Fatty (change of) liver, not elsewhere classified K76.0 Hyperlipemia E78.5 Idiopathic polyneuropathy G60.9 Obstructive sleep apnea on CPAP G47.33; Z99.89 HTN (hypertension) I10 Obesity hypoventilation syndrome E66.2 COPD (chronic obstructive pulmonary disease) J44.9 Type 2 diabetes mellitus E11.69; Z79.4 Diabetes mellitus buttermaker insulin use: with buttermaker use Diabetes mellitus complication status: with other specified complication PAF (paroxysmal atrial fibrillation) I48.0 Hypothyroidism E03.9 (1) Type 2 diabetes mellitus Diabetes mellitus buttermaker insulin use: with buttermaker use Diabetes mellitus complication status: with other specified complication Qualified Code(s): E11.69 - Type 2 diabetes mellitus with other specified complication; Z79.4 - terminal gauger (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
[2022-06-10] MEDS: PANTOprazole 40 MG TAB PO SCH (18:51)
[2022-06-10] MEDS: IRON POLYSACCHARIDE COMPLEX 150 MG CAPSULE PO SCH (18:52)
[2022-06-10] MEDS: DOCUSATE SODIUM/SENNA 50/8.6MG TAB PO SCH (18:52)
[2022-06-10] MEDS: ATORVASTATIN 40 MG TAB PO SCH (18:53)
[2022-06-10] MEDS: ZINC SULFATE 220 MG CAPSULE PO SCH (18:53)
[2022-06-10] MEDS: LANTUS PER UNIT CHARGE SQ SCH (21:24)
[2022-06-10] MEDS: traZODone HCL 100 MG TAB PO SCH (22:37)
[2022-06-11] MEDS: LEVOTHYROXINE SODIUM 50 MCG TABLET PO SCH (05:48)
[2022-06-11] MEDS: SODIUM CHLORIDE 0.9% 1000ML 1,000 ML IV SCH ×4 (05:49→23:47)
[2022-06-11] MEDS: HYDROCODONE/ACETAMOPHEN 5/325MG TAB PO PRN (05:50)
[2022-06-11] MEDS: LACTULOSE SYRUP 30 GM/45 ML UDP PO SCH ×5 (07:23→20:48)
[2022-06-11] MEDS: PREGABALIN 50 MG CAP PO SCH ×2 (07:23→20:46)
[2022-06-11] MEDS: CYANOCOBALAMIN (B-12) 2,500 MCG TABLET SL SCH (07:24)
[2022-06-11] MEDS: APIXABAN 5 MG TABLET PO SCH ×2 (07:24→20:47)
[2022-06-11] MEDS: CHOLECALCIFEROL 5,000 UNITS 125 MCG TAB PO SCH (07:24)
[2022-06-11] MEDS: fluvoxaMINE MALEATE 50 MG TAB PO SCH ×2 (07:24→20:46)
[2022-06-11] MEDS: METOPROLOL TARTRATE 25 MG TAB PO SCH ×2 (07:24→20:48)
[2022-06-11] MEDS: FENOFIBRATE NANOCRYSTALLIZED 145 MG TABLET PO SCH (07:25)
[2022-06-11] MEDS: FOLIC ACID 1 MG TAB PO SCH (07:25)
[2022-06-11] MEDS: busPIRone 15 MG TAB PO SCH ×2 (07:25→20:47)
[2022-06-11] MEDS: INSULIN ASPART PER UNIT SC SCH ×4 (08:20→20:43)
--- NOTE | 2022-06-11 08:46 | Nephrology Consultation ---
Date of Consultation June 11, 2022 Assessment & Plan (1) PATY (acute kidney injury): * Oliguric PATY likely related to recent NSAID therapy. Urine sediment is acellular. UPCR ~ 2.0. [place]/Lambda ratio was wnl 4/18. Renal US negative for obstruction * Recommend avoiding Toradol, NSAIDS * Continue gentle hydration * Volume status and electrolyte balance are acceptable at this time. No acute indication for CHAIR LIFT OPERATOR * Monitor UO, PRP * Recommend posting sign in room to protect arm w/ dialysis access (2) CKD (chronic kidney disease): * CKD stage G4/A3 (advanced impairment). Baseline Cr has been 2.2 w/ EGFR 24 cc/min. Urinalysis has been acellular but UPCR > 2g/day. 06/07 renal US re vealed 12.5 cm kidneys w/ moderate cortical thinning. Renal impairment has been attributed to DKD (3) HTN (hypertension): * BP is mildly elevated due to hip discomfort * Patient was not on SANDRA/ARB therapy prior to admission due to relatively low BP while on beta willima therapy * Remains on Metoprolol for rate control of atrial fibrillation (4) Anemia due to chronic kidney disease: * Hgb 9.4 this am * Will order iron studies w/ am labs (5) Trochanteric fracture of left femur: * Orthopedic consultation reviewed. No intervention at this time. Continue PT History of Present Illness Reason for Consultation: PATY/CKD Attending Physician: Ray Baird MD History of Present Illness Mrs. Arellano is a 61 year old white female who is seen at the request of the hospitalist service for evaluation of PATY/CKD. Medical records in the EMR were reviewed today and are summarized as follows: Mrs. Arellano has CKD stage G4/A3 (advanced impairment). Baseline Cr has been 2.2 w/ EGFR 24 cc/min. Urinalysis has been acellular but UPCR > 2g/day. 06/07 renal US revealed 12.5 cm kidneys w/ moderate cortical thinning. Renal impairment has been attributed to DKD. Mrs. Arellano's primary Glue Bone Drier is Dr. Kang. Mrs. Arellano underwent AVF creation 09/07/[address] Ricks. Mrs. Arellano's medical history is also significant for AODM, obesity s/p gastric bypass, TRUMAN, HTN, atrial fibrillation, OCD, h/o major depression, COPD. Mrs. Arellano suffered a mechanical fall 06/08/22 resulting in fracture of the L greater trochanter. She required IV Toradol x2 for pain control. Since admission Cr has risen from 1.8 to 3.5. Urine sediment remains acellular. Renal US was negative for obstruction. Toradol has been stopped and IV hydration initiated Allergies Allergy/AdvReac Type Severity Reaction Status Date / Time promethazine Allergy Unknown BROKEN Verified 04/10/22 11:12 CAPILLARIES FACE Iodinated Contrast Media AdvReac Unknown Unknown Verified 04/10/22 11:12 [Iodinated Contrast- Oral and IV Dye] Home Medications Medication Instructions Recorded Confirmed Type zinc gluconate 100 mg tablet 100 mg PO HS 07/23/18 04/10/22 History lorazepam 1 mg tablet (Ativan) 1 mg PO BID PRN anxiety 03/24/19 04/10/22 History trazodone 50 mg tablet 100 mg PO HS insomnia 04/26/20 04/10/22 History buspirone 15 mg tablet 15 mg PO BID 11/28/20 04/10/22 History multivitamin with minerals 2 tab PO BID 02/26/21 04/10/22 History (Hair,Skin and Nails tablet) multivitamin (Daily Multi-Vitamin 1 tab PO DAILY 04/04/21 04/10/22 History tablet) insulin syringe-needle U-100 0.5 #400 ea 04/12/21 04/10/22 Rx mL 31 gauge x 5/16" (Easy Comfort Insulin Syringe) lancets (OneTouch UltraSoft #400 ea 04/12/21 04/10/22 Rx Lancets) amoxicillin 500 mg tablet 2,000 mg PO ONCE #4 tabs 04/21/21 04/10/22 Rx polysaccharide iron complex 150 mg 150 mg PO HS #60 caps 05/03/21 04/10/22 Rx iron capsule (Ferrex) metoprolol tartrate 25 mg tablet 25 mg PO QAM #90 tabs 05/18/21 04/10/22 Rx omega-3 fatty acids 1,000 mg 1,000 mg PO DAILY 08/21/21 04/10/22 History capsule apixaban 5 mg tablet (Eliquis) 5 mg PO BID #180 tabs 08/30/21 04/10/22 Rx atorvastatin 80 mg tablet 80 mg PO HS #90 tabs 08/30/21 04/10/22 Rx fenofibrate 160 mg tablet 160 mg PO QAM #90 tabs 08/30/21 04/10/22 Rx folic acid 1 mg tablet 1 mg PO QAM #90 tabs 08/30/21 04/10/22 Rx insulin glargine 100 unit/mL 5 unit subcut HS 10/04/21 04/10/22 History subcutaneous solution (Lantus U-100 Insulin) insulin lispro 100 unit/mL 7 unit subcut TIDM 10/04/21 04/10/22 History subcutaneous solution fluvoxamine 100 mg 150 mg PO BID 11/27/21 04/10/22 History capsule,extended release 24 hr pantoprazole 40 mg tablet,delayed 40 mg PO HS #90 tabs 12/07/21 04/10/22 Rx release blood sugar diagnostic #300 ea 01/02/22 04/10/22 Rx epoetin fernando-epbx 40,000 unit/mL 40,000 unit subcut MONTHLY 15 days 01/10/22 04/10/22 Rx injection solution (Retacrit) #15 mL cyanocobalamin (vitamin B-12) 2,500 mcg PO DAILY #30 tabs 01/16/22 04/10/22 Rx 2,500 mcg tablet pregabalin 50 mg capsule (Lyrica) 50 mg PO BID #60 caps 03/01/22 04/10/22 Rx bumetanide 1 mg tablet 1 mg PO DAILY 04/05/22 04/10/22 History cholecalciferol (vitamin D3) 125 125 mcg PO DAILY 04/05/22 04/10/22 History mcg (5,000 unit) capsule levothyroxine 50 mcg tablet 50 mcg PO DAILY #90 tabs 04/09/22 04/10/22 Rx scopolamine base 1 mg over 3 days 1 patch transdermal Q3D PRN nausea 05/08/22 Rx transdermal patch and vomiting #4 ea nystatin 100,000 unit/gram topical 1 applic topical TID PRN Rash #60 06/01/22 Rx powder grams Patient History Medical History Acute renal failure (05/23/14) 2013. Kidneys recovered to around CKD III, then function worsened around 04/2020. Afib dx August 2020> cardioversions x2. Xarelto > follows Dr. Fontaine > no pacer Anemia due to chronic kidney disease Anxiety and depression Arthralgia of multiple sites AV fistula September 07, 2020 > right wrist > not on dialysis at present Avascular necrosis of head of humerus Cardiac murmur Mild TR noted on 2019 echo. Chronic kidney disease, stage 4 (severe) F/U [facility]- nephrology Chronic low back pain Chronic rhinitis Chronic sinusitis Claustrophobia Diabetes Diabetic nephropathy Diabetic peripheral neuropathy Diabetic retinopathy, nonproliferative Diastolic congestive heart failure Euvolemic on exam at [facility] 09/02/20. follows with Dr. 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 Per [facility] pulm 12/2019, "fairly stable from a pulmonary perspective. She is short of breath with any exertion, however a large part of this is likely related to obesity. Pulmonary functions done 1 year ago showed only a mild restrictive pattern. Diffusion was slightly decreased to 66%. One year ago she did have a normal arterial blood gas with no evidence of CO2 retention." Using PRN 3L, mostly using with exertion, not using every day. Morbid obesity Nasal septal deviation Nocturnal hypoxia no 02 Nontoxic multinodular goiter TRUMAN (obstructive sleep apnea) PRESCRIBED BIPAP-CAN'T TOLERATE-CLAUSTROPHOBIC Sore throat Syncope Syncope Vitamin D deficiency Surgical History H/O section x1 History of arthroscopy x2 left shoulder History of colonoscopy History of dermoid cyst excision History of esophagogastroduodenoscopy (EGD) History of mandibular surgery FULL ROM History of total shoulder replacement LEFT 07/19 2015 fracture Hx of cholecystectomy Hx of gastric bypass Hx of right cataract extraction S/P tooth extraction Family History Daughter Bipolar disorder Multiple allergies Aunt Breast cancer Mother Diabetes Heart disease Hypertension Hyperthyroidism Father Hearing loss Gastric cancer Myocardial infarction Grandfather Heart disease Family/Other Hypertension Lung cancer Osteoporosis Stroke Brother Hypertension Grandmother Ovarian cancer Sister Migraine Diabetes Denies family history of Prostate cancer Colorectal cancer Uterine cancer Social History Smoking Status: Never smoker Second Hand Exposure: No; Hx Alcohol Use: No Hx Substance Use: No Preferred Language: Telugu Communication Ability: Effective Visual Impairment: No Limitations Conditioning Yard Supervisor Required: No Beliefs That Will Affect Care: Congregational marital status: Single Current Living Situation: Spouse Current Living Situation Comment: Home w/ current occupational status: unemployed Feels Safe at Home: Yes Childhood Exposure to Second-Hand Smoke: Yes Dental Care, Regularly: Yes Physical Activity Frequency: Does not Exercise Seatbelt Use: never Sunscreen Use: Yes Assistive Devices: Glasses Review of Systems Constitutional: no fever Eyes: no problem reported Ear, Nose, Mouth, Throat: no problem reported Respiratory: no cough and no dyspnea Cardiovascular: no chest pain Gastrointestinal: no abdominal pain, no nausea, no vomiting and no diarrhea/loose stools Genitourinary: no dysuria Musculoskeletal: + problem reported L hip pain Neurologic: no problem reported Physical Exam Constitutional: not in distress Eyes: PERRL, conjunctivae normal, anicteric sclerae ENMT: external ear and nose normal, oropharynx normal Neck: trachea midline, no thyromegaly Respiratory: normal respiratory effort, lungs clear to auscultation Cardiovascular: Rate/Rhythm: regular rate and regular rhythm Heart Sounds: + murmur Extremities: + AV fistula (+ bruit); no edema Gastrointestinal (Abdomen): normal bowel sounds, soft, nontender, no hepatosplenomegaly Neurologic: not confused Speech / Cognition: normal cognition Results & Data ([facility]) Vital Signs (Past 12 Hours) Vital Signs Temp Pulse Pulse Resp BP Pulse Ox O2 Del Method 06/11/22 08:00 37.0 C 68 20 144/81 H 91 Room Air 06/11/22 04:30 37.3 C 62 18 137/76 90 Room Air 06/11/22 00:15 73 06/10/22 23:24 37.2 C 64 18 148/56 H 95 Room Air Laboratory Results Laboratory Tests 06/07/22 06/09/22 06/10/22 Unknown 06:05 05:15 WBC 5.68 Hgb 9.4 L Hct 30.9 L Plt Count 132 Sodium Potassium Chloride Carbon Dioxide BUN Creatinine Glucose Urine Color Yellow Urine Appearance Clear Urine pH 5.0 Ur Specific [place] 1.013 Urine Protein 3+ H Urine Glucose (UA) Negative Urine Blood 1+ H Urine RBC (Auto) 0-4 Protein/Creatinin Ratio 1.3 H 06/11/22 09:02 WBC Hgb Hct Plt Count Sodium 139 Potassium 4.9 Chloride 108 H Carbon Dioxide 25 BUN 72 H Creatinine 3.52 H Glucose 124 H Urine Color Urine Appearance Urine pH Ur Specific [place] Urine Protein Urine Glucose (UA) Urine Blood Urine RBC (Auto) Protein/Creatinin Ratio Diagnostic Findings 06/10/22 Renal US: The right kidney measures 12.7 cm in maximal dimension and the left measures 12.4 cm. The left kidney is partially obscured. There is moderate renal cortical thinning. There is no hydronephrosis. A 1.6 cm right midpole cyst is noted. A 1.4 cm left mid pole cyst is present. No renal calculi are identified. Bladder is collapsed. PG Care Time/CCT Total # of Minutes Spent Total Time Spent with Patient: Total time spent is greater than 50% in coordination of care (as documented) at patient's floor/unit and/or counseling patient: Coding Level of Care Code 60751 Inpt Consult Level 5 Diagnoses PATY (acute kidney injury) N17.9 CKD (chronic kidney disease) N18.9 Chronic kidney disease stage: unspecified stage HTN (hypertension) I10 Anemia due to chronic kidney disease N18.9; D63.1 Trochanteric fracture of left femur S72.102A (1) CKD (chronic kidney disease) Chronic kidney disease stage: unspecified stage Qualified Code(s): N18.9 - Chronic kidney disease, unspecified
[2022-06-11 09:38] LABS: BUN Creatinine Ratio 20.5 (10-20); Calcium 8.1 mg/dl (8.5-10.1); Creatinine Clr Calc Pharmacy 22.1 ml/min; Est GFR (African American) 15.2 ml/min; Est GFR (Non-African American) 13.1 ml/min; Potassium 4.9 mmol/L (3.5-5.1)
[2022-06-11] MEDS: oxyCODONE HCL 15 MG TABCR (OxyCONTIN) PO SCH (10:59)
[2022-06-11] MEDS: PATIROMER CALCIUM SORBITEX 8.4 GM PACK PO SCH (12:46)
[2022-06-11 17:18] LABS: Appearance Urine Clear (Clear); Bacteria Urine Automated Negative (Negative); Bilirubin Urine Negative (Negative); Blood Urine Negative (Negative); Color Urine Yellow; Epithelial Cell Urine Auto >30 /lpf (0-5); Glucose Urine UA Negative (Negative); Ketones Urine Negative (Negative); Leukocyte Esterase Urine 1+ (Negative); Nitrite Urine Negative (Negative); Protein Urine 2+ (Negative); RBC Urine Automated 0-4 /hpf (0-4); Specific Gravity Urine 1.015 (1.000-1.030); Urobilinogen Urine Negative (Negative)
--- NOTE | 2022-06-11 17:50 | Hospitalist Progress Note ---
Date of Service June 11, 2022 Assessment & Plan (1) Closed fracture of greater trochanter of left femur: Plan: Complains of severe pain with ambulation, started on long-acting narcotic (oxycodone extended release) (2) PATY (acute kidney injury): Plan: -Continue IV fluid, creatinine trending up, however I expect the creatinine trending down tomorrow, hyperkalemia has resolved, -Appreciate nephrology consult, tramadol could be contributing factor, discontinue tramadol -Cut down the IV fluid to 75 mill per hour continue holding Bumex, patient have significant proteinuria most likely secondary to diabetes induced nephropathy, protein to creatinine ratio is 1.3, ultrasound of the kidneys did not show any hydronephrosis, however showed bilateral moderate cortical thinning (3) Diabetic nephropathy with proteinuria: Plan: Complicated with hypoalbuminemia, and proteinuria (4) Diastolic CHF: Plan: The most recent echocardiogram showed diastolic dysfunction grade 1 Hold Bumex for now (5) Conjunctivitis: Plan: She complains of conjunctivitis of right eye started on erythromycin ointment (6) Chronic kidney disease, stage 4 (severe): Plan: Most likely secondary to diabetic nephropathy (7) Hypoalbuminemia: Plan: Most likely secondary to proteinuria as well as fatty liver disease (8) Fatty (change of) liver, not elsewhere classified: Plan: The most recent ultrasound of the liver showed fatty liver disease, morbid obesity could be contributing factor (9) Hyperlipemia: Plan: Continue home (10) Idiopathic polyneuropathy: Plan: Continue home management (11) Obstructive sleep apnea on CPAP: (12) HTN (hypertension): Plan: Controlled continue current manage (13) Obesity hypoventilation syndrome: Plan: From respiratory status the patient is stable (14) COPD (chronic obstructive pulmonary disease): Plan: No wheezing on exam (15) Type 2 diabetes mellitus: Plan: Resume glargine, fairly controlled, continue lispro 7 units before meals, patient takes glargine 5 units at bedtime (16) PAF (paroxysmal atrial fibrillation): Plan: Resume apixaban currently rate controlled continue current management (17) Hypothyroidism: Plan Closed left greater trochanter fracture- Will not make n.p.o. at this time as patient is on Eliquis, which will be held Acetaminophen 650 mg p.o. every 6 hours. Mild pain or fever [place] 5/325, 1 every 4 hours as needed for moderate pain Dilaudid 0.5 mg IV every 4 hours as needed for severe pain Zofran 4 mg IV every 6 hours as needed Consult orthopedic surgery, sees Dr. New Paroxysmal atrial fibrillation/hypertension- Hold apixaban Change metoprolol to tartrate 1225 mg p.o. every morning to 5012.5 mg p.o. twice daily Follow-up on medical telemetry Diabetes mellitus- Hold glargine 5 units subcu at bedtime, and lispro 7 units subcu 3 times daily with meals Placed on Accu-Cheks before meals and at bedtime with NovoLog coverage per sliding scale Check hemoglobin A1c Hyperlipidemia- Continue atorvastatin 80 mg at bedtime and fenofibrate 160 mg every morning Anxiety and depression- Continue buspirone 15 mg p.o. twice daily, fluvoxamine 150 mg p.o. twice daily, lorazepam 1 mg p.o. twice daily as needed, pregabalin 50 mg p.o. twice daily and trazodone 100 mg p.o. at bedtime as needed GERD- Continue pantoprazole 40 mg at bedtime Hypothyroidism- Continue levothyroxine 50 mcg daily Vit B12 deficiency- Continue 2500 mcg p.o. daily Admission and Anticipated Discharge Date Admission Date: June 07, 2022 Subjective Creatinine trending up slightly, complaining of having right eye conjunctivitis Physical Exam Physical Exam: The patient is awake, alert and oriented 3, well developed and well nourished, normocephalic and atraumatic, lying in bed and in no acute distress. HEENT--PERRL, EOMI, mucous membranes and oropharynx normal. Neck--supple. No JVD. No bruits. Thyroid normal, trachea midline, no adenopathy. Heart--normal S1 and S2. No murmurs, rubs or gallops. Lungs--clear bilaterally, no respiratory distress, no accessory muscle use. Abdomen--normal bowel sounds and soft. Nontender. Nondistended. Morbidly obese Extremities--no cyanosis or clubbing. No edema. Dermatologic--normal skin turgor, normal color, no abnormal lymph nodes, no rash. Neurologic--cranial nerves II through XII grossly intact. Rheumatologic--limited exam Psychiatric--normal affect. Results & Data Results & Data ([facility]) Vital Signs (Past 12 Hours) Vital Signs Temp Pulse Resp BP Pulse Ox O2 Del Method 06/11/22 15:00 37.1 C 62 18 138/79 93 Room Air 06/11/22 11:35 37.1 C 59 L 20 119/64 93 Room Air 06/11/22 08:00 37.0 C 68 20 144/81 H 91 Room Air PG Care Time/CCT Total # of Minutes Spent Total Time Spent with Patient: Total time spent is greater than 50% in coordination of care (as documented) at patient's floor/unit and/or counseling patient: Coding Level of Care Code 68498 Subseq Hosp Care Lvl 3 Diagnoses Closed fracture of greater trochanter of left femur S72.112A PATY (acute kidney injury) N17.9 Diabetic nephropathy with proteinuria E11.21 Diastolic CHF I50.30 Conjunctivitis H10.9 Chronic kidney disease, stage 4 (severe) N18.4 Hypoalbuminemia E88.09 Fatty (change of) liver, not elsewhere classified K76.0 Hyperlipemia E78.5 Idiopathic polyneuropathy G60.9 Obstructive sleep apnea on CPAP G47.33; Z99.89 HTN (hypertension) I10 Obesity hypoventilation syndrome E66.2 COPD (chronic obstructive pulmonary disease) J44.9 Type 2 diabetes mellitus E11.69; Z79.4 Diabetes mellitus termite exterminator insulin use: with alf use Diabetes mellitus complication status: with other specified complication PAF (paroxysmal atrial fibrillation) I48.0 Hypothyroidism E03.9 (1) Type 2 diabetes mellitus Diabetes mellitus alf insulin use: with termite exterminator use Diabetes mellitus complication status: with other specified complication Qualified Code(s): E11.69 - Type 2 diabetes mellitus with other specified complication; Z79.4 - exterminator (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
[2022-06-11] MEDS: LANTUS PER UNIT CHARGE SQ SCH (20:43)
[2022-06-11] MEDS: ERYTHROMYCIN OP OINT 5 MG/GM 3.5 GM TUBE OP SCH (20:46)
[2022-06-11] MEDS: traZODone HCL 100 MG TAB PO SCH (20:46)
[2022-06-11] MEDS: ATORVASTATIN 40 MG TAB PO SCH (20:47)
[2022-06-11] MEDS: IRON POLYSACCHARIDE COMPLEX 150 MG CAPSULE PO SCH (20:48)
[2022-06-11] MEDS: ZINC SULFATE 220 MG CAPSULE PO SCH (20:49)
[2022-06-11] MEDS: PANTOprazole 40 MG TAB PO SCH (20:49)
[2022-06-11] MEDS: DOCUSATE SODIUM/SENNA 50/8.6MG TAB PO SCH (20:50)
[2022-06-12] MEDS: LEVOTHYROXINE SODIUM 50 MCG TABLET PO SCH (06:06)
[2022-06-12 07:19] LABS: Hematocrit (blood only) 28.7 % (34.1-44.9); Hemoglobin 8.7 g/dl (12.0-16.0); Mean Corpuscular Hemoglobin 26.9 pg (25.0-34.0); Mean Corpuscular Hgb Conc 30.3 g/dL (32.0-36.0); Mean Corpuscular Volume 88.6 fL (80.0-100.0); Mean Platelet Volume 11.6 fL (9.4-12.3); Platelet Count 148 K/uL (130-400); RDW Coefficient of Variation 15.5 % (11.5-14.5); Red Blood Count 3.24 M/uL (3.93-5.22); White Blood Count 4.01 K/ul (4.8-10.8)
[2022-06-12 07:48] LABS: BUN Creatinine Ratio 24.3 (10-20); Calcium 7.8 mg/dl (8.5-10.1); Creatinine Clr Calc Pharmacy 23.6 ml/min; Est GFR (African American) 17.2 ml/min; Est GFR (Non-African American) 14.9 ml/min; Potassium 4.9 mmol/L (3.5-5.1)
[2022-06-12 08:07] LABS: Ferritin 128.9 ng/ml (8-388)
[2022-06-12] MEDS: SODIUM CHLORIDE 0.9% 1000ML 1,000 ML IV SCH ×2 (08:35→20:37)
[2022-06-12] MEDS: INSULIN ASPART PER UNIT SC SCH ×4 (08:40→20:58)
[2022-06-12] MEDS: fluvoxaMINE MALEATE 50 MG TAB PO SCH ×2 (08:47→20:50)
[2022-06-12] MEDS: busPIRone 15 MG TAB PO SCH ×2 (08:47→20:50)
[2022-06-12] MEDS: APIXABAN 5 MG TABLET PO SCH ×2 (08:47→20:51)
[2022-06-12] MEDS: METOPROLOL TARTRATE 25 MG TAB PO SCH ×2 (08:47→20:49)
[2022-06-12] MEDS: FENOFIBRATE NANOCRYSTALLIZED 145 MG TABLET PO SCH (08:48)
[2022-06-12] MEDS: CYANOCOBALAMIN (B-12) 2,500 MCG TABLET SL SCH (08:49)
[2022-06-12] MEDS: CHOLECALCIFEROL 5,000 UNITS 125 MCG TAB PO SCH (08:49)
[2022-06-12] MEDS: PREGABALIN 50 MG CAP PO SCH ×2 (08:49→20:49)
[2022-06-12] MEDS: oxyCODONE HCL 15 MG TABCR (OxyCONTIN) PO SCH (08:49)
[2022-06-12] MEDS: FOLIC ACID 1 MG TAB PO SCH (08:49)
[2022-06-12] MEDS: ERYTHROMYCIN OP OINT 5 MG/GM 3.5 GM TUBE OP SCH ×3 (08:50→20:52)
--- NOTE | 2022-06-12 08:53 | Nephrology Progress Note ---
Date of Service June 12, 2022 Assessment & Plan (1) PATY (acute kidney injury): Plan: * Oliguric PATY likely related to recent NSAID therapy. Urine sediment is acellular. UPCR ~ 2.0. [place]/Lambda ratio was wnl 4/18. Renal US negative for obstruction * Cr improved from 3.5 to 3.17 overnight * Recommend avoiding Toradol, NSAIDS * Continue gentle hydration * Volume status and electrolyte balance are acceptable at this time. No acute indication for ARCHIVIST POLITICAL HISTORY * Monitor UO, PRP * Recommend posting sign in room to protect arm w/ dialysis access (2) CKD (chronic kidney disease): Plan: * CKD stage G4/A3 (advanced impairment). Baseline Cr has been 2.2 w/ EGFR 24 cc/min. Urinalysis has been acellular but UPCR > 2g/day. 06/07 renal US revealed 12.5 cm kidneys w/ moderate cortical thinning. Renal impairment has been attributed to DKD (3) HTN (hypertension): Plan: * BP is mildly elevated due to hip discomfort * Patient was not on SANDRA/ARB therapy prior to admission due to relatively low BP while on beta william therapy * Remains on Metoprolol for rate control of atrial fibrillation (4) Anemia due to chronic kidney disease: Plan: * Hgb dropped to 8.7 this am * Iron sat 11% w/ ferritin 129. Will order venofer 200 mg iV daily x 5 doses (5) Trochanteric fracture of left femur: Plan: * Orthopedic consultation reviewed. No intervention at this time. Continue PT Admission and Anticipated Discharge Date Admission Date: June 07, 2022 Subjective Mrs. Arellano was evaluated in her hospital room this morning. She is tolerating gentle hydration, denies dyspnea and reports brisk UO. Mrs. Arellano has continued L hip discomfort but reports that she has been able to ambulate short distances with assistance Review of Systems Constitutional: no fever Eyes: no problem reported Ear, Nose, Mouth, Throat: no problem reported Respiratory: no cough and no dyspnea Cardiovascular: no chest pain Gastrointestinal: no abdominal pain, no nausea, no vomiting and no diarrhea/loose stools Genitourinary: no dysuria Musculoskeletal: + problem reported L hip pain Neurologic: no problem reported Physical Exam Constitutional: not in distress Eyes: PERRL, conjunctivae normal, anicteric sclerae ENMT: external ear and nose normal, oropharynx normal Neck: trachea midline, no thyromegaly Respiratory: normal respiratory effort, lungs clear to auscultation Cardiovascular: Rate/Rhythm: regular rate and regular rhythm Heart Sounds: + murmur Extremities: + AV fistula (+ bruit); no edema Gastrointestinal (Abdomen): normal bowel sounds, soft, nontender, no hepatosplenomegaly Neurologic: not confused Speech / Cognition: normal cognition Results & Data ([facility]) Vital Signs (Past 12 Hours) Vital Signs Temp Pulse Pulse Resp BP Pulse Ox Pulse Ox 06/12/22 07:48 37.3 C 68 20 147/77 H 94 06/12/22 02:52 37.3 C 101 H 18 122/72 96 06/11/22 23:05 37.1 C 62 20 127/74 90 06/11/22 23:19 62 06/11/22 21:00 93 O2 Del Method O2 Del Method 06/12/22 07:48 Room Air 06/12/22 02:52 Room Air 06/11/22 23:05 Room Air 06/11/22 23:19 06/11/22 21:00 Room Air Laboratory Results Laboratory Tests 06/11/22 06/12/22 06/12/22 Unknown 06:50 06:50 WBC 4.01 L Hgb 8.7 L Hct 28.7 L Plt Count 148 Sodium 140 Potassium 4.9 Chloride 112 H Carbon Dioxide 21 BUN 77 H Creatinine 3.17 H D Glucose 91 Transferrin % Sat 11 L Ferritin 128.9 Urine Color Yellow Urine Appearance Clear Urine Glucose (UA) Negative Urine Blood Negative Urine Nitrite Negative Urine RBC (Auto) 0-4 PG Care Time/CCT Total # of Minutes Spent Total Time Spent with Patient: Total time spent is greater than 50% in coordination of care (as documented) at patient's floor/unit and/or counseling patient: Coding Level of Care Code 19391 Subseq Hosp Care Lvl 3 Diagnoses PATY (acute kidney injury) N17.9 CKD (chronic kidney disease) N18.9 Chronic kidney disease stage: unspecified stage HTN (hypertension) I10 Anemia due to chronic kidney disease N18.9; D63.1 Trochanteric fracture of left femur S72.102A (1) CKD (chronic kidney disease) Chronic kidney disease stage: unspecified stage Qualified Code(s): N18.9 - Chronic kidney disease, unspecified
[2022-06-12] MEDS: LACTULOSE SYRUP 30 GM/45 ML UDP PO SCH ×4 (09:07→21:10)
[2022-06-12] MEDS: PATIROMER CALCIUM SORBITEX 8.4 GM PACK PO SCH (10:11)
[2022-06-12] MEDS: IRON SUCROSE 200 MG in 0.9 % SODIUM CHLORIDE 100 ML IV SCH (10:11)
[2022-06-12] MEDS: HYDROCODONE/ACETAMOPHEN 5/325MG TAB PO PRN (13:20)
--- NOTE | 2022-06-12 19:12 | Hospitalist Progress Note ---
Date of Service June 12, 2022 Assessment & Plan (1) Closed fracture of greater trochanter of left femur: Plan: in his consciousness patient is currently the pain is currently fairly controlled with sustained-release oxycodone, (2) PATY (acute kidney injury): Plan: -Continue IV fluid, creatinine trending down, hyperkalemia has resolved, -Appreciate nephrology consult, tramadol could be contributing factor, discontinue tramadol -Cut down the IV fluid to 75 mill per hour continue holding Bumex, patient have significant proteinuria most likely secondary to diabetes induced nephropathy, protein to creatinine ratio is 1.3, ultrasound of the kidneys did not show any hydronephrosis, however showed bilateral moderate cortical thinning (3) Diabetic nephropathy with proteinuria: Plan: Complicated with hypoalbuminemia, and proteinuria -Patient is discharged on SANDRA or ARB inhibitor after acute kidney injury is resolved (4) Diastolic CHF: Plan: The most recent echocardiogram showed diastolic dysfunction grade 1 Hold Bumex for now (5) Conjunctivitis: Plan: She complains of conjunctivitis of right eye started on erythromycin ointment (6) Chronic kidney disease, stage 4 (severe): Plan: Most likely secondary to diabetic nephropathy (7) Hypoalbuminemia: Plan: Most likely secondary to proteinuria as well as fatty liver disease (8) Fatty (change of) liver, not elsewhere classified: Plan: The most recent ultrasound of the liver showed fatty liver disease, morbid obesity could be contributing factor (9) Hyperlipemia: Plan: Continue home (10) Idiopathic polyneuropathy: Plan: Continue home management (11) Obstructive sleep apnea on CPAP: (12) HTN (hypertension): Plan: Controlled continue current manage (13) Obesity hypoventilation syndrome: Plan: From respiratory status the patient is stable (14) COPD (chronic obstructive pulmonary disease): Plan: No wheezing on exam (15) Type 2 diabetes mellitus: Plan: Resume glargine, fairly controlled, continue lispro 7 units before meals, patient takes glargine 5 units at bedtime (16) PAF (paroxysmal atrial fibrillation): Plan: Resume apixaban currently rate controlled continue current management (17) Hypothyroidism: Plan Closed left greater trochanter fracture- Will not make n.p.o. at this time as patient is on Eliquis, which will be held Acetaminophen 650 mg p.o. every 6 hours. Mild pain or fever [place] 5/325, 1 every 4 hours as needed for moderate pain Dilaudid 0.5 mg IV every 4 hours as needed for severe pain Zofran 4 mg IV every 6 hours as needed Consult orthopedic surgery, sees Dr. New Paroxysmal atrial fibrillation/hypertension- Hold apixaban Change metoprolol to tartrate 1225 mg p.o. every morning to 5012.5 mg p.o. twice daily Follow-up on medical telemetry Diabetes mellitus- Hold glargine 5 units subcu at bedtime, and lispro 7 units subcu 3 times daily with meals Placed on Accu-Cheks before meals and at bedtime with NovoLog coverage per sliding scale Check hemoglobin A1c Hyperlipidemia- Continue atorvastatin 80 mg at bedtime and fenofibrate 160 mg every morning Anxiety and depression- Continue buspirone 15 mg p.o. twice daily, fluvoxamine 150 mg p.o. twice daily, lorazepam 1 mg p.o. twice daily as needed, pregabalin 50 mg p.o. twice daily and trazodone 100 mg p.o. at bedtime as needed GERD- Continue pantoprazole 40 mg at bedtime Hypothyroidism- Continue levothyroxine 50 mcg daily Vit B12 deficiency- Continue 2500 mcg p.o. daily Admission and Anticipated Discharge Date Admission Date: June 07, 2022 Subjective Creatinine is trending down, doing better today, possible discharge tomorrow she is tolerating gentle hydration, denies dyspnea and reports brisk UO. Mrs. Arellano has continued L hip discomfort but reports that she has been able to ambulate short distances with assistance Results & Data Results & Data ([facility]) Vital Signs (Past 12 Hours) Vital Signs Temp Pulse Pulse Resp BP Pulse Ox O2 Del Method 06/12/22 14:36 59 L 06/12/22 15:00 36.8 C 59 L 18 149/80 H 97 Room Air 06/12/22 11:00 36.9 C 64 18 148/76 H 92 Room Air 06/12/22 07:48 37.3 C 68 20 147/77 H 94 Room Air PG Care Time/CCT Total # of Minutes Spent Total Time Spent with Patient: Total time spent is greater than 50% in coordination of care (as documented) at patient's floor/unit and/or counseling patient: Coding Level of Care Code 43697 Subseq Hosp Care Lvl 3 Diagnoses Closed fracture of greater trochanter of left femur S72.112A PATY (acute kidney injury) N17.9 Diabetic nephropathy with proteinuria E11.21 Diastolic CHF I50.30 Conjunctivitis H10.9 Chronic kidney disease, stage 4 (severe) N18.4 Hypoalbuminemia E88.09 Fatty (change of) liver, not elsewhere classified K76.0 Hyperlipemia E78.5 Idiopathic polyneuropathy G60.9 Obstructive sleep apnea on CPAP G47.33; Z99.89 HTN (hypertension) I10 Obesity hypoventilation syndrome E66.2 COPD (chronic obstructive pulmonary disease) J44.9 Type 2 diabetes mellitus E11.69; Z79.4 Diabetes mellitus intermediate insulin use: with terminal clerk use Diabetes mellitus complication status: with other specified complication PAF (paroxysmal atrial fibrillation) I48.0 Hypothyroidism E03.9 (1) Type 2 diabetes mellitus Diabetes mellitus intermediate insulin use: with terminal clerk use Diabetes mellitus complication status: with other specified complication Qualified Code(s): E11.69 - Type 2 diabetes mellitus with other specified complication; Z79.4 - intermediate card tender (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
[2022-06-12] MEDS: PANTOprazole 40 MG TAB PO SCH (20:49)
[2022-06-12] MEDS: ZINC SULFATE 220 MG CAPSULE PO SCH (20:50)
[2022-06-12] MEDS: traZODone HCL 100 MG TAB PO SCH (20:51)
[2022-06-12] MEDS: ATORVASTATIN 40 MG TAB PO SCH (20:51)
[2022-06-12] MEDS: DOCUSATE SODIUM/SENNA 50/8.6MG TAB PO SCH (20:52)
[2022-06-12] MEDS: IRON POLYSACCHARIDE COMPLEX 150 MG CAPSULE PO SCH (20:53)
[2022-06-12] MEDS: LANTUS PER UNIT CHARGE SQ SCH (20:56)
[2022-06-13] MEDS: SODIUM CHLORIDE 0.9% 1000ML 1,000 ML IV SCH ×2 (01:41→11:01)
[2022-06-13] MEDS: LEVOTHYROXINE SODIUM 50 MCG TABLET PO SCH (05:52)
[2022-06-13] MEDS: oxyCODONE HCL 15 MG TABCR (OxyCONTIN) PO SCH (07:26)
[2022-06-13] MEDS: PREGABALIN 50 MG CAP PO SCH (07:26)
[2022-06-13] MEDS: CYANOCOBALAMIN (B-12) 2,500 MCG TABLET SL SCH (07:26)
[2022-06-13] MEDS: APIXABAN 5 MG TABLET PO SCH (07:26)
[2022-06-13] MEDS: FOLIC ACID 1 MG TAB PO SCH (07:27)
[2022-06-13] MEDS: busPIRone 15 MG TAB PO SCH (07:27)
[2022-06-13] MEDS: LACTULOSE SYRUP 30 GM/45 ML UDP PO SCH ×2 (07:27→14:11)
[2022-06-13] MEDS: fluvoxaMINE MALEATE 50 MG TAB PO SCH (07:27)
[2022-06-13] MEDS: FENOFIBRATE NANOCRYSTALLIZED 145 MG TABLET PO SCH (07:28)
[2022-06-13] MEDS: CHOLECALCIFEROL 5,000 UNITS 125 MCG TAB PO SCH (07:28)
[2022-06-13] MEDS: ERYTHROMYCIN OP OINT 5 MG/GM 3.5 GM TUBE OP SCH (07:28)
[2022-06-13] MEDS: IRON SUCROSE 200 MG in 0.9 % SODIUM CHLORIDE 100 ML IV SCH (07:31)
--- NOTE | 2022-06-13 08:39 | Nephrology Progress Note ---
Date of Service June 13, 2022 Assessment & Plan (1) PATY (acute kidney injury): Plan: * Oliguric PATY likely related to recent NSAID therapy. Urine sediment is acellular. UPCR ~ 2.0. [place]/Lambda ratio was wnl 4/18. Renal US negative for obstruction * Cr improved to 3.1 yesterday * Recommend avoiding Toradol, NSAIDS * Continue gentle hydration * Volume status and electrolyte balance are acceptable at this time. 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 If kidney function is table or improved, could consider transfer to [facility] for ongoing PT (2) CKD (chronic kidney disease): Plan: * CKD stage G4/A3 (advanced impairment). Baseline Cr has been 2.2 w/ EGFR 24 cc/min. Urinalysis has been acellular but UPCR > 2g/day. 06/07 renal US revealed 12.5 cm kidneys w/ moderate cortical thinning. Renal impairment has been attributed to DKD (3) HTN (hypertension): Plan: * BP is mildly elevated due to hip discomfort * Patient was not on SANDRA/ARB therapy prior to admission due to relatively low BP while on beta william therapy * Remains on Metoprolol for rate control of atrial fibrillation (4) Anemia due to chronic kidney disease: Plan: * Hgb dropped to 8.7 this am * Iron sat 11% w/ ferritin 129. Will order venofer 200 mg iV daily x 5 doses (5) Trochanteric fracture of left femur: Plan: * Orthopedic consultation reviewed. No intervention at this time. Continue PT Admission and Anticipated Discharge Date Admission Date: June 07, 2022 Subjective Ms. Arellano was evaluated in her hospital room this am. She reports brisk UO. She has continued L hip discomfort and did not ambulate yesterday. She expressed concern about returning home. Her often works OOT and she will not have assistance. Review of Systems Constitutional: no fever Eyes: no problem reported Ear, Nose, Mouth, Throat: no problem reported Respiratory: no cough and no dyspnea Cardiovascular: no chest pain Gastrointestinal: no abdominal pain, no nausea, no vomiting and no diarrhea/loose stools Genitourinary: no dysuria Musculoskeletal: + problem reported L hip pain Neurologic: no problem reported Physical Exam Constitutional: not in distress Eyes: PERRL, conjunctivae normal, anicteric sclerae ENMT: external ear and nose normal, oropharynx normal Neck: trachea midline, no thyromegaly Respiratory: normal respiratory effort, lungs clear to auscultation Cardiovascular: Rate/Rhythm: regular rate and regular rhythm Heart Sounds: + murmur Extremities: + AV fistula (+ bruit); no edema Gastrointestinal (Abdomen): normal bowel sounds, soft, nontender, no hepatosplenomegaly Neurologic: not confused Speech / Cognition: normal cognition Results & Data ([facility]) Vital Signs (Past 12 Hours) Vital Signs Temp Pulse Pulse Resp BP Pulse Ox O2 Del Method 06/13/22 08:29 37.0 C 64 18 147/72 H 93 Room Air 06/13/22 04:00 37.1 C 61 18 135/74 95 Room Air 06/12/22 23:42 37.0 C 62 20 142/75 H 92 Room Air 06/12/22 23:25 61 Laboratory Results AM labs not yet drawn PG Care Time/CCT Total # of Minutes Spent Total Time Spent with Patient: Total time spent is greater than 50% in coordination of care (as documented) at patient's floor/unit and/or counseling patient: Coding Level of Care Code 48923 Subseq Hosp Care Lvl 3 Diagnoses PATY (acute kidney injury) N17.9 CKD (chronic kidney disease) N18.9 Chronic kidney disease stage: unspecified stage HTN (hypertension) I10 Anemia due to chronic kidney disease N18.9; D63.1 Trochanteric fracture of left femur S72.102A (1) CKD (chronic kidney disease) Chronic kidney disease stage: unspecified stage Qualified Code(s): N18.9 - Chronic kidney disease, unspecified
[2022-06-13] MEDS: INSULIN ASPART PER UNIT SC SCH ×2 (08:42→14:10)
[2022-06-13] MEDS: METOPROLOL TARTRATE 25 MG TAB PO SCH (08:44)
[2022-06-13 10:28] LABS: Hematocrit (blood only) 27.5 % (34.1-44.9); Hemoglobin 8.3 g/dl (12.0-16.0); Mean Corpuscular Hemoglobin 27.4 pg (25.0-34.0); Mean Corpuscular Hgb Conc 30.2 g/dL (32.0-36.0); Mean Corpuscular Volume 90.8 fL (80.0-100.0); Mean Platelet Volume 10.7 fL (9.4-12.3); Platelet Count 155 K/uL (130-400); RDW Coefficient of Variation 15.5 % (11.5-14.5); RDW Standard Deviation 50.8 fL (36.4-46.3); Red Blood Count 3.03 M/uL (3.93-5.22); White Blood Count 3.76 K/ul (4.8-10.8)
[2022-06-13 11:08] LABS: BUN Creatinine Ratio 20.8 (10-20); Calcium 8.2 mg/dl (8.5-10.1); Creatinine Clr Calc Pharmacy 24.1 ml/min; Est GFR (African American) 17.5 ml/min; Est GFR (Non-African American) 15.1 ml/min; Potassium 4.6 mmol/L (3.5-5.1)
[2022-06-13] MEDS: PATIROMER CALCIUM SORBITEX 8.4 GM PACK PO SCH (11:34)
--- NOTE | 2022-06-13 19:47 | Discharge Summary ---
Date of Service June 13, 2022 Admission HPI Per Admitting Provider The patient is a 61-year-old female with a past medical history including shoulder replacement, left knee osteoarthritis, idiopathic polyneuropathy, TRUMAN on CPAP, hypertension, LVH, OCD, obesity hypoventilation syndrome ", COPD, ILD, diabetes mellitus type 2, paroxysmal atrial fibrillation, CKD stage IV, hyperlipidemia, anxiety and depression, diabetic peripheral neuropathy, diabetic nonproliferative retinopathy, HFpEF, anemia due to chronic disease and vitamin D deficiency. Patient presents to the emergency department after ground-level fall. X-ray and CT scan in ED confirmed left greater trochanter fracture. Principal Diagnosis #Closed left greater trochanter fracture managed conservatively #Acute kidney injury on chronic kidney disease multifactorial Discharge Data Allergies Allergy/AdvReac Type Severity Reaction Status Date / Time promethazine Allergy Unknown BROKEN Verified 04/10/22 11:12 CAPILLARIES FACE Iodinated Contrast Media AdvReac Unknown Unknown Verified 04/10/22 11:12 [Iodinated Contrast- Oral and IV Dye] Consultations 06/07/22 02:42 ED Decision to Admit Stat 06/07/22 05:21 Consult Orthopedic Surgery Routine 06/09/22 18:16 Consult Nephrology Routine Ordered Studies 06/07/22 01:10 CT hip LT wo con Urgent 06/10/22 US renal/blad retro comp Routine Hospital Course (1) Closed fracture of greater trochanter of left femur: in his consciousness patient is currently the pain is currently fairly controlled with sustained-release oxycodone, Follow-up x-ray in 1 to 2 months to confirm healing (2) PATY (acute kidney injury): -Continue IV fluid, creatinine trending down, hyperkalemia has resolved, -Appreciate nephrology consult, tramadol could be contributing factor, discontinue tramadol -Cut down the IV fluid to 75 mill per hour continue holding Bumex, patient have significant proteinuria most likely secondary to diabetes induced nephropathy, protein to creatinine ratio is 1.3, ultrasound of the kidneys did not show any hydronephrosis, however showed bilateral moderate cortical thinning -Patient benefits from ARB or SANDRA inhibitor when follows with her PCP (3) Diabetic nephropathy with proteinuria: Complicated with hypoalbuminemia, and proteinuria -She needs to be started on SANDRA or ARB inhibitor after acute kidney injury is resolved (4) HTN (hypertension): Blood pressure on the high side, patient's blood pressure meds be adjusted, part of the of uncontrolled hypertension could be secondary to pain (5) Diastolic CHF: The most recent echocardiogram showed diastolic dysfunction grade 1 Hold Bumex for now due to acute kidney injury, I defer to primary care, covering physician regarding the appropriate time to resume Bumex (6) Conjunctivitis: She complains of conjunctivitis of right eye started on erythromycin ointment (7) Chronic kidney disease, stage 4 (severe): Most likely secondary to diabetic nephropathy (8) Hypoalbuminemia: Most likely secondary to proteinuria as well as fatty liver disease (9) Fatty (change of) liver, not elsewhere classified: The most recent ultrasound of the liver showed fatty liver disease, morbid obesity could be contributing factor (10) Hyperlipemia: Continue home (11) Idiopathic polyneuropathy: Continue home management (12) Obstructive sleep apnea on CPAP: (13) Obesity hypoventilation syndrome: From respiratory status the patient is stable (14) COPD (chronic obstructive pulmonary disease): No wheezing on exam (15) Type 2 diabetes mellitus: Resume glargine, fairly controlled, continue lispro 7 units before meals, patient takes glargine 5 units at bedtime (16) PAF (paroxysmal atrial fibrillation): Resume apixaban currently rate controlled continue current management (17) Hypothyroidism: Plan Closed left greater trochanter fracture- Will not make n.p.o. at this time as patient is on Eliquis, which will be held Acetaminophen 650 mg p.o. every 6 hours. Mild pain or fever [place] 5/325, 1 every 4 hours as needed for moderate pain Dilaudid 0.5 mg IV every 4 hours as needed for severe pain Zofran 4 mg IV every 6 hours as needed Consult orthopedic surgery, sees Dr. New Paroxysmal atrial fibrillation/hypertension- Hold apixaban Change metoprolol to tartrate 1225 mg p.o. every morning to 5012.5 mg p.o. twice daily Follow-up on medical telemetry Diabetes mellitus- Hold glargine 5 units subcu at bedtime, and lispro 7 units subcu 3 times daily with meals Placed on Accu-Cheks before meals and at bedtime with NovoLog coverage per sliding scale Check hemoglobin A1c Hyperlipidemia- Continue atorvastatin 80 mg at bedtime and fenofibrate 160 mg every morning Anxiety and depression- Continue buspirone 15 mg p.o. twice daily, fluvoxamine 150 mg p.o. twice daily, lorazepam 1 mg p.o. twice daily as needed, pregabalin 50 mg p.o. twice daily and trazodone 100 mg p.o. at bedtime as needed GERD- Continue pantoprazole 40 mg at bedtime Hypothyroidism- Continue levothyroxine 50 mcg daily Vit B12 deficiency- Continue 2500 mcg p.o. daily Total Time Total Time Spent Total Time Spent (In Minutes): 45 Discharge Plan Discharge Items Patient Disposition: Transfer Inpatient Rehab Fac Reason For Visit: CLOSED LEFT GREATER TROCHANTER FX, HYPOXIA Discharge Diagnosis: PATY Hip Fracture Bathing: No limitations Sexual Activity: When tolerated Non-emergency contact: Primary Care Provider and Surgeon Call non-emergency contact if: you have any medication questions Follow-up/Referrals: William Lewis MD [Primary Care Provider] - 06/21/22 10:30 am Rodolfo Ceron DO [Physician] - Juan Jose New DO [Physician] - Diet: Carb Consistent or DM2 Addtl Attending Provider Instructions: Please repeat your hip Xray in one month and follow with your orthopedic surgeon to make sure it is healing Please repeat your renal panel (BMP) IN ONE WEEK AND FOLLOW WITH YOUR KIDNEY DOCTOR Pending Studies at Discharge: Yes Studies:: BMP in one week Stand-Alone Forms: My [facility] Skilled Items Patient informed of condition?: Yes DNR: No Discharge Level of Care: Skilled Communicable Disease: No Discharge Prognosis: Improving Lines: None Urinary Catheter: No Medications and DC Order Prescriptions: New amlodipine [Norvasc] 10 mg tablet 10 mg PO DAILY Qty: 30 0RF lactulose 20 gram/30 mL Solution 30 g PO QID Qty: 1500 0RF oxycodone [OxyContin] 15 mg Tablet,Oral Only,Ext.Rel.12 Hr 15 mg PO QD@08 Qty: 7 0RF acetaminophen 325 mg Tablet 650 mg PO Q4H PRN (Reason: fever) Qty: 14 0RF hydrocodone-acetaminophen 5-325 mg Tablet 1 tab PO Q4H PRN (Reason: pain) Qty: 14 0RF sennosides-docusate sodium [Senokot-S] 8.6-50 mg Tablet 2 tab PO HS 56 Days Qty: 112 0RF Continued (DME) lancets [OneTouch UltraSoft Lancets] Misc See Rx Instructions .ROUTE .MEDSUPPLY Qty: 400 3RF Rx Instructions: test blood sugar 4 x daily (DME) insulin syringe-needle U-100 [Easy Comfort Insulin Syringe] 0.5 mL 31 gauge x 5/16" syringe See Rx Instructions .ROUTE .MEDSUPPLY Qty: 400 3RF Rx Instructions: Use four times a day with insulin injection polysaccharide iron complex [Ferrex 150] 150 mg iron capsule 150 mg PO HS Qty: 60 5RF metoprolol tartrate 25 mg tablet 25 mg PO QAM Qty: 90 3RF atorvastatin 80 mg tablet 80 mg PO HS Qty: 90 3RF fenofibrate 160 mg tablet 160 mg PO QAM Qty: 90 3RF folic acid 1 mg tablet 1 mg PO QAM Qty: 90 3RF Eliquis 5 mg tablet 5 mg PO BID Qty: 180 3RF pantoprazole 40 mg tablet,delayed release (DR/EC) 40 mg PO HS Qty: 90 3RF (DME) blood sugar diagnostic Strip See Dose Instructions .ROUTE .MEDSUPPLY Qty: 300 3RF Dose Instruction: As directed Rx Instructions: test blood sugar 3 x daily cyanocobalamin (vitamin B-12) 2,500 mcg tablet 2,500 mcg PO DAILY Qty: 30 8RF pregabalin [Lyrica] 50 mg capsule 50 mg PO BID Qty: 60 4RF cholecalciferol (vitamin D3) 125 mcg (5,000 unit) capsule 125 mcg PO DAILY levothyroxine 50 mcg tablet 50 mcg PO DAILY Qty: 90 1RF Rx Instructions: take with 8 oz of water nystatin 100,000 unit/gram powder 1 applic topical TID PRN (Reason: Rash) Qty: 60 1RF fluvoxamine 100 mg capsule,extended release 24hr 150 mg PO BID omega-3 fatty acids 1,000 mg capsule 1,000 mg PO DAILY multivitamin [Daily Multi-Vitamin] Tablet 1 tab PO DAILY buspirone 15 mg tablet 15 mg PO BID Retacrit 40,000 unit/mL solution 40,000 unit subcut MONTHLY 15 Days Qty: 15 0RF Lantus U-100 Insulin 100 unit/mL solution 5 unit SQ HS insulin lispro 100 unit/mL solution 7 unit SQ TIDM zinc gluconate 100 mg Tablet 100 mg PO HS lorazepam [Ativan] 1 mg tablet 1 mg PO BID PRN (Reason: anxiety) trazodone 50 mg tablet 100 mg PO HS Discontinued amoxicillin 500 mg tablet 2,000 mg PO ONCE Qty: 4 3RF Rx Instructions: 4 tabs 1 hour prior to procedure scopolamine base 1 mg over 3 days patch 3 day 1 patch transdermal Q3D PRN (Reason: nausea and vomiting) Qty: 4 0RF bumetanide 1 mg tablet 1 mg PO DAILY Retacrit 40,000 unit/mL solution 40,000 unit subcut ONCE Qty: 1 0RF Hair,Skin and Nails Tablet 2 tab PO BID Rx Instructions: pt uses gummies Discharge Orders: Discharge Order (Routine); Ordered 06/13/22 Ordered By: Ray Reese/Other Patient Handouts: Managing Type 2 Diabetes Admission Data Admit Date/Time: 06/07/22 03:04 Attending Provider: Ray Baird Admit Provider: Bill Hancock Primary Care Provider: William Lewis V. Other Providers: Bill Hancock ; Juan Jose New ; William Gillespie ; Brendan Ocampo ; Sherrie Kang ; Rodolfo Ceron ; Irasema Padilla Coding Level of Care Code D/C DAY MANAGEMENT >30 MINS Diagnoses Closed fracture of greater trochanter of left femur S72.112A PATY (acute kidney injury) N17.9 Diabetic nephropathy with proteinuria E11.21 HTN (hypertension) I10 Diastolic CHF I50.30 Conjunctivitis H10.9 Chronic kidney disease, stage 4 (severe) N18.4 Hypoalbuminemia E88.09 Fatty (change of) liver, not elsewhere classified K76.0 Hyperlipemia E78.5 Idiopathic polyneuropathy G60.9 Obstructive sleep apnea on CPAP G47.33; Z99.89 Obesity hypoventilation syndrome E66.2 COPD (chronic obstructive pulmonary disease) J44.9 Type 2 diabetes mellitus E11.69; Z79.4 Diabetes mellitus manager terminal insulin use: with manager terminal use Diabetes mellitus complication status: with other specified complication PAF (paroxysmal atrial fibrillation) I48.0 Hypothyroidism E03.9
== END 2022-06-13 14:42 | DRG 536 ==
LOC: ED 22:39 → SUATTDRO 06-07 03:04 → EDINP 06-07 03:04 → 2W 06-07 08:38 → 2N 06-08 05:57

== ENCOUNTER 2022-10-30 14:17 | Inpatient (IN) ==
--- NOTE | 2022-10-30 14:32 | ED Triage Note ---
Date of Service October 30, 2022 History of Present Illness This patient was briefly evaluated while in triage. An abbreviated physical exam was performed. This patient is a 61-year-old Female who presents to the ED for evaluation of SOB, afib, fluid retention. Patient sent to ED for further evaluation by PCP after being seen in office today. Reports history of paroxysmal afib s/p cardioversion. She notes feeling SOB for the last 2 weeks. Denies chest pain or abdominal pain. Physical Exam Constitutional: alert and oriented x3. no acute distress. HEENT: normocephalic, atraumatic. normal conjunctiva.EOM's grossly intact. Respiratory: lungs are clear to auscultation without wheezes, rhonchi, or rales bilaterally. equal chest rise. normal respiratory effort, no accessory muscle use. Cardiovascular: normal heart sounds without murmur. regular rate and rhythm. GI: abdomen is soft, nontender. No palpable masses. No rebound tenderness or guarding. MSK: moves all 4 extremities spontaneously Peripheral vascular: extremities warm and well perfused Psych:appropriate mood and affect. Initial orders for labs and / or imaging were placed and patient was placed in the waiting area until a bed is available. Please see further documentation for the full ED course.
--- NOTE | 2022-10-30 15:16 | XRay Report ---
XR chest 1V portable HISTORY: 61 years-old Female Dyspnea acute shortness of breath COMPARISON: Chest radiograph 12/04/2021 TECHNIQUE: AP view of the chest FINDINGS: Cardiac silhouette is enlarged. Atherosclerosis of the aorta. Reverse left shoulder arthroplasty. Deg enerative changes of the right shoulder and spine. No pneumothorax, pleural effusion, airspace consol idation or pulmonary edema. IMPRESSION: No acute process. ACT 112: Negative or not required by law. The above report was generated using voice recognition software. It may contain grammatical, syntax o r spelling errors. Electronically signed by: Timothy Tracy M.D. 10/30/2022 3:15 PM
[2022-10-30 15:29] LABS: Basophils # (auto) 0.03 K/uL (0-0.2); Basophils % (auto) 0.6 %; Eosinophils # (auto) 0.09 K/uL (0-0.50); Eosinophils % (auto) 1.7 %; Hematocrit (blood only) 29.4 % (37.0-47.0); Hemoglobin 8.9 g/dl (12.0-16.0); Immature Granulocytes # (auto) 0.03 K/uL (0.01-0.20); Immature Granulocytes % (auto) 0.6 %; Lymphocytes # (auto) 1.21 K/uL (1.2-3.4); Mean Corpuscular Hemoglobin 26.3 pg (25.0-34.0); Mean Corpuscular Hgb Conc 30.3 g/dL (32.0-36.0); Mean Platelet Volume 11.1 fL (9.4-12.4); Monocytes # (auto) 0.21 K/uL (0.11-0.59); Neutrophils % (auto) 70.1 %; Platelet Count 195 K/uL (130-400); RDW Coefficient of Variation 16.1 % (11.5-14.5); Red Blood Count 3.38 M/uL (4.20-5.40); White Blood Count 5.27 K/ul (4.8-10.8)
--- NOTE | 2022-10-30 15:36 | Emergency Department Note ---
History of Present Illness General Chief Complaint: Cardiac Assessment Stated Complaint: A FIB,REF BY DOC,FLUID RETENTION Time Seen by Provider: 10/30/22 15:04 History of Present Illness Provider Complaint: shortness of breath Onset (ago): week(s) (2) Severity: similar to previous episodes Consistency/Duration: + progressively worsening Relieved By: + upright position Exacerbated By: + lying flat and + exertion; not by coughing Known history of: congestive heart failure Associated symptoms: + chest pain, + orthopnea and + lower extremity pain; no pain with inspiration, no fever, no wheezing, no sputum production, no polyuria, no nausea/vomiting, no abdominal pain, no rash or no chest congestion HPI Narrative: Patient reports her PCP increased her Bumex to 1 mg twice daily from 1 mg daily for the last week and has not made any significant improvement. Patient reports a 20 pound weight gain over the last 2 weeks. Home Medications Medication Instructions Recorded Confirmed Type zinc gluconate 100 mg tablet 100 mg PO HS 07/23/18 10/30/22 History lorazepam 1 mg tablet (Ativan) 1 mg PO BID PRN anxiety 03/24/19 10/30/22 History buspirone 15 mg tablet 15 mg PO BID 11/28/20 10/30/22 History multivitamin (Daily Multi-Vitamin 1 tab PO DAILY 04/04/21 10/30/22 History tablet) insulin syringe-needle U-100 0.5 #400 ea 04/12/21 10/30/22 Rx mL 31 gauge x 5/16" (Easy Comfort Insulin Syringe) lancets (OneTouch UltraSoft #400 ea 04/12/21 10/30/22 Rx Lancets) omega-3 fatty acids 1,000 mg 1,000 mg PO DAILY 08/21/21 10/30/22 History capsule apixaban 5 mg tablet (Eliquis) 5 mg PO BID #180 tabs 08/30/21 10/30/22 Rx atorvastatin 80 mg tablet 80 mg PO HS #90 tabs 08/30/21 10/30/22 Rx fenofibrate 160 mg tablet 160 mg PO QAM #90 tabs 08/30/21 10/30/22 Rx folic acid 1 mg tablet 1 mg PO QAM #90 tabs 08/30/21 10/30/22 Rx fluvoxamine 100 mg 150 mg PO BID 11/27/21 10/30/22 History capsule,extended release 24 hr blood sugar diagnostic #300 ea 01/02/22 10/30/22 Rx epoetin fernando-epbx 40,000 unit/mL 40,000 unit subcut MONTHLY 15 days 01/10/22 10/30/22 Rx injection solution (Retacrit) #15 mL cholecalciferol (vitamin D3) 125 125 mcg PO DAILY 04/05/22 10/30/22 History mcg (5,000 unit) capsule acetaminophen 325 mg tablet 650 mg PO Q4H PRN fever #14 tabs 06/13/22 10/30/22 Rx amlodipine 10 mg tablet (Norvasc) 10 mg PO DAILY #90 tabs 07/09/22 10/30/22 Rx furosemide 40 mg tablet 40 mg PO DAILY #90 tabs 07/09/22 10/30/22 Rx insulin lispro 100 unit/mL 3 unit subcut TIDM 07/09/22 10/30/22 History subcutaneous solution ondansetron 4 mg disintegrating 4 mg PO Q8H PRN nausea and 07/09/22 10/30/22 Rx tablet vomiting #30 tabs trazodone 100 mg tablet 150 mg PO HS 07/09/22 10/30/22 History metoprolol succinate 25 mg 25 mg PO DAILY #90 tabs 07/23/22 10/30/22 Rx tablet,extended release 24 hr cyanocobalamin (vitamin B-12) 2,500 mcg PO ONCE 10/08/22 10/30/22 History 2,500 mcg tablet ferrous sulfate 325 mg (65 mg 325 mg PO DAILY #30 tabs 10/08/22 10/30/22 Rx iron) tablet,delayed release pantoprazole 40 mg tablet,delayed 40 mg PO DAILY #90 tabs 10/08/22 10/30/22 Rx release pregabalin 50 mg capsule (Lyrica) 50 mg PO BID #60 caps 10/18/22 10/30/22 Rx amoxicillin 500 mg tablet 2,000 mg PO ONCE PRN Prophylaxis 10/30/22 10/30/22 History baclofen 5 mg tablet 5 mg PO TID PRN Muscle Spasm 10/30/22 10/30/22 History levothyroxine 50 mcg tablet 50 mcg PO DAILYBB 10/30/22 10/30/22 History Allergies Allergy/AdvReac Type Severity Reaction Status Date / Time promethazine Allergy Unknown BROKEN Verified 10/30/22 13:22 CAPILLARIES FACE Iodinated Contrast Media AdvReac Unknown Unknown Verified 10/30/22 13:22 [Iodinated Contrast- Oral and IV Dye] Past Med/Surg History Medical History Acute kidney injury Acute renal failure (05/23/14) 2013. Kidneys recovered to around CKD III, then function worsened around 06/2019. Afib dx August 2020> cardioversions x2. Xarelto > follows Dr. Fontaine > no pacer PATY (acute kidney injury) Anemia due to chronic kidney disease Anxiety and depression Arthralgia of multiple sites Atrial fibrillation and flutter Atrial fibrillation, new onset AV fistula September 07, 2020 > right wrist > not on dialysis at present Avascular necrosis of head of humerus Cardiac murmur Mild TR noted on 2019 echo. Chronic kidney disease, stage 4 (severe) Chronic low back pain Chronic rhinitis Chronic sinusitis CKD (chronic kidney disease) Claustrophobia Closed fracture of greater trochanter of left femur Conjunctivitis Cough Diabetes Diabetic nephropathy Diabetic peripheral neuropathy Diabetic retinopathy, nonproliferative Diastolic congestive heart failure Euvolemic on exam at [facility] 09/02/20. follows with Dr. 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 Per [facility] pulm 12/2019, "fairly stable from a pulmonary perspective. She is short of breath with any exertion, however a large part of this is likely related to obesity. Pulmonary functions done 1 year ago showed only a mild restrictive pattern. Diffusion was slightly decreased to 66%. One year ago she did have a normal arterial blood gas with no evidence of CO2 retention." Using PRN 3L, mostly using with exertion, not using every day. Morbid obesity Nasal septal deviation Nocturnal hypoxia no 02 Nontoxic multinodular goiter TRUMAN (obstructive sleep apnea) PRESCRIBED BIPAP-CAN'T TOLERATE-CLAUSTROPHOBIC PAF (paroxysmal atrial fibrillation) Pneumonia Right sided sciatica Sore throat Syncope Syncope Trochanteric fracture of left femur Vitamin D deficiency Surgical History H/O section x1 History of arthroscopy x2 left shoulder History of colonoscopy History of dermoid cyst excision History of esophagogastroduodenoscopy (EGD) History of mandibular surgery FULL ROM History of total shoulder replacement LEFT 07/19 2015 fracture Hx of cholecystectomy Hx of gastric bypass Hx of right cataract extraction S/P tooth extraction Family History Daughter Bipolar disorder Multiple allergies Aunt Breast cancer Mother Diabetes Heart disease Hypertension Hyperthyroidism Father Hearing loss Gastric cancer Myocardial infarction Grandfather Heart disease Family/Other Hypertension Lung cancer Osteoporosis Stroke Brother Hypertension Grandmother Ovarian cancer Sister Migraine Diabetes Denies family history of Prostate cancer Colorectal cancer Uterine cancer Social History Smoking Status: Never smoker Second Hand Exposure: No; Do You Dip or Chew Tobacco: No; Hx Alcohol Use: No Hx Substance Use: No Preferred Language: Wallisian Communication Ability: Effective Visual Impairment: No Limitations Professor Of Communication Required: No Beliefs That Will Affect Care: Jainism marital status: Single Current Living Situation: Spouse Current Living Situation Comment: Home w/ current occupational status: unemployed Feels Safe at Home: Yes Childhood Exposure to Second-Hand Smoke: Yes Dental Care, Regularly: Yes Physical Activity Frequency: Does not Exercise Seatbelt Use: never Sunscreen Use: Yes Assistive Devices: Glasses Physical Exam Vital Signs: Vital Signs - 24 hr 10/30/22 14:30 10/30/22 16:09 10/30/22 15:15 Temperature 36.6 C Temperature Source Skin Pulse Rate 78 78 Pulse Rate [Apical ] 73 Pulse Rate from Sp O2 Sensor Respiratory Rate 18 16 Blood Pressure 129/82 Blood Pressure [Le ft Arm] 123/83 Blood Pressure Madison n 97 Blood Pressure Madison n [Left Arm] 96 Pulse Oximetry 97 97 Oxygen Delivery Me thod Room Air Sepsis Recent Feve r Within 48 Hours No Sepsis New/Unexpla ined Change in Men autumn Status No Sepsis Action Take n by Nursing No Action Required 10/30/22 15:11 10/30/22 15:12 10/30/22 15:30 Temperature Temperature Source Pulse Rate 83 Pulse Rate [Apical ] Pulse Rate from Sp O2 Sensor 75 Respiratory Rate 14 Blood Pressure 139/83 170/89 H Blood Pressure [Le ft Arm] Blood Pressure Madison n 101 116 Blood Pressure Madison n [Left Arm] Pulse Oximetry 96 Oxygen Delivery Me thod Sepsis Recent Feve r Within 48 Hours Sepsis New/Unexpla ined Change in Men autumn Status Sepsis Action Take n by Nursing 10/30/22 15:30 10/30/22 17:01 10/30/22 17:01 Temperature Temperature Source Pulse Rate 73 74 Pulse Rate [Apical ] Pulse Rate from Sp O2 Sensor 75 77 Respiratory Rate 14 18 Blood Pressure 143/69 H Blood Pressure [Le ft Arm] Blood Pressure Madison n 93 Blood Pressure Madison n [Left Arm] Pulse Oximetry 98 95 Oxygen Delivery Me thod Sepsis Recent Feve r Within 48 Hours Sepsis New/Unexpla ined Change in Men autumn Status Sepsis Action Take n by Nursing 10/30/22 17:30 10/30/22 17:30 Temperature Temperature Source Pulse Rate 69 Pulse Rate [Apical ] Pulse Rate from Sp O2 Sensor 65 Respiratory Rate 20 Blood Pressure 140/68 Blood Pressure [Le ft Arm] Blood Pressure Madison n 92 Blood Pressure Madison n [Left Arm] Pulse Oximetry 93 Oxygen Delivery Me thod Sepsis Recent Feve r Within 48 Hours Sepsis New/Unexpla ined Change in Men autumn Status Sepsis Action Take n by Nursing Physical Exam: Physical Exam GENERAL: She is oriented to person, place, and time. She appears well-developed and well-nourished. HENT: Exam performed. -Head: Normocephalic and atraumatic. -Right Ear: External ear normal. No mastoid erythema -Left Ear: External ear normal. No mastoid erythema -Mouth/Throat: The oropharynx is clear and moist. No trismus in the jaw. No dental abscesses or uvula swelling. No oropharyngeal exudate or tonsillar abscesses. EYES: Conjunctivae and EOM are normal.Right eye exhibits no discharge. Left eye exhibits no discharge. No scleral icterus. NECK: Normal range of motion. Neck supple. No JVD present. No spinous process tenderness present.No tracheal deviation and normal range of motion present. CV: Normal rate, irregular rhythm, normal heart sounds and intact distal pulses. Palpable radial pulses bue. PULM/CHEST: Inspiratory rales at the bases bilaterally. ABD: The abdomen is soft. Obese. She has no distension. There is no tenderness. There is no rebound, no guarding. MUSC/SKEL: Normal range of motion. There is 3+ bilateral lower extremity pitting edema. No tenderness or deformity. LYMPH: No cervical adenopathy. NEURO: Motor and sensation grossly intact. SKIN: Skin is warm and dry. She is not diaphoretic. PSYCH: She has a normal mood and affect. Behavior is normal. Judgment and thought content normal. Course Course 1504: The patient was evaluated in room C10. A complete history and physical exam was performed Medical Decision Making Medical Records Attestation: I reviewed the patient's medical records. External medical records reviewed. Patient does have a 9 kg increase in weight over the last month. Laboratory Data Attestation: I reviewed the patient's lab results. 10/30/22 15:18 10/30/22 15:18 Lab Results 10/30/22 10/30/22 10/30/22 Range/Units 15:18 15:18 15:18 WBC 5.27 (4.8-10.8) K/ul RBC 3.38 L (4.20-5.40) M/uL Hgb 8.9 L (12.0-16.0) g/dl Hct 29.4 L (37.0-47.0) % MCV 87.0 (80.0-100.0) fL MCH 26.3 (25.0-34.0) pg MCHC 30.3 L (32.0-36.0) g/dL RDW Std Deviation 51.0 H (36.4-46.3) fL RDW Coeff of Chantal 16.1 H (11.5-14.5) % Plt Count 195 (130-400) K/uL MPV 11.1 (9.4-12.4) fL Immature Gran % (Auto) 0.6 % Neut % (Auto) 70.1 % Lymph % (Auto) 23.0 % [place] % (Auto) 4.0 % Eos % (Auto) 1.7 % Baso % (Auto) 0.6 % Neut # (Auto) 3.70 (1.40-6.50) K/uL Lymph # (Auto) 1.21 (1.2-3.4) K/uL [place] # (Auto) 0.21 (0.11-0.59) K/uL Eos # (Auto) 0.09 (0-0.50) K/uL Baso # (Auto) 0.03 (0-0.2) K/uL Immature Gran # (Auto) 0.03 (0.01-0.20) K/uL PT 12.9 H (9.0-12.0) Seconds INR 1.2 H (0.9-1.1) APTT 28.8 (21.0-31.0) Seconds PTT Ratio 1.0 Sodium 141 (136-145) mmol/L Potassium 4.4 (3.5-5.1) mmol/L Chloride 108 H (98-107) mmol/L Carbon Dioxide 26 (21-32) mmol/L Anion Gap 7 (3-11) BUN 51 H (6-23) mg/dl Creatinine 2.81 H (0.6-1.2) mg/dl Est Cr Clr Drug Dosing 28.8 ml/min Est GFR ( Amer) 19.9 ml/min Est GFR (Non-Af Amer) 17.2 ml/min BUN/Creatinine Ratio 18.1 (10-20) Glucose 178 H (70-99(Fasting)) mg/dl Calcium 8.7 (8.6-10.3) mg/dl Total Bilirubin 0.6 (0.2-1.0) mg/dl AST 20 (13-39) U/L ALT 11 (7-52) U/L Alkaline Phosphatase 89 (34-104) U/L Troponin I High Sens 11.1 (0-14) pg/ml B-Natriuretic Peptide (0-100) pg/ml Total Protein 6.9 (6.0-8.3) gm/dl Albumin 3.5 (3.4-5.0) gm/dl Globulin 3.4 (2.5-4.0) gm/dl Albumin/Globulin Ratio 1.0 (0.9-2) SARS-CoV-2, RNA, NAAT (NEGATIVE) 10/30/22 10/30/22 Range/Units 15:18 16:44 WBC (4.8-10.8) K/ul RBC (4.20-5.40) M/uL Hgb (12.0-16.0) g/dl Hct (37.0-47.0) % MCV (80.0-100.0) fL MCH (25.0-34.0) pg MCHC (32.0-36.0) g/dL RDW Std Deviation (36.4-46.3) fL RDW Coeff of Chantal (11.5-14.5) % Plt Count (130-400) K/uL MPV (9.4-12.4) fL Immature Gran % (Auto) % Neut % (Auto) % Lymph % (Auto) % [place] % (Auto) % Eos % (Auto) % Baso % (Auto) % Neut # (Auto) (1.40-6.50) K/uL Lymph # (Auto) (1.2-3.4) K/uL [place] # (Auto) (0.11-0.59) K/uL Eos # (Auto) (0-0.50) K/uL Baso # (Auto) (0-0.2) K/uL Immature Gran # (Auto) (0.01-0.20) K/uL PT (9.0-12.0) Seconds INR (0.9-1.1) APTT (21.0-31.0) Seconds PTT Ratio Sodium (136-145) mmol/L Potassium (3.5-5.1) mmol/L Chloride (98-107) mmol/L Carbon Dioxide (21-32) mmol/L Anion Gap (3-11) BUN (6-23) mg/dl Creatinine (0.6-1.2) mg/dl Est Cr Clr Drug Dosing ml/min Est GFR ( Amer) ml/min Est GFR (Non-Af Amer) ml/min BUN/Creatinine Ratio (10-20) Glucose (70-99(Fasting)) mg/dl Calcium (8.6-10.3) mg/dl Total Bilirubin (0.2-1.0) mg/dl AST (13-39) U/L ALT (7-52) U/L Alkaline Phosphatase (34-104) U/L Troponin I High Sens (0-14) pg/ml B-Natriuretic Peptide 563 H (0-100) pg/ml Total Protein (6.0-8.3) gm/dl Albumin (3.4-5.0) gm/dl Globulin (2.5-4.0) gm/dl Albumin/Globulin Ratio (0.9-2) SARS-CoV-2, RNA, NAAT NEGATIVE (NEGATIVE) Imaging Data Attestation: I personally reviewed and interpreted this imaging study as follows: My Impression: Chest x-ray: Cardiomegaly with mild cephalization Radiologist's Impression: Chest X-Ray 10/30/22 14:32 XR chest 1V portable HISTORY: 61 years-old Female Dyspnea acute shortness of breath COMPARISON: Chest radiograph 12/04/2021 TECHNIQUE: AP view of the chest FINDINGS: Cardiac silhouette is enlarged. Atherosclerosis of the aorta. Reverse left shoulder arthroplasty. Degenerative changes of the right shoulder and spine. No pneumothorax, pleural effusion, airspace consolidation or pulmonary edema. IMPRESSION: No acute process. ACT 112: Negative or not required by law. The above report was generated using voice recognition software. It may contain grammatical, syntax or spelling errors. Electronically signed by: Timothy Tracy M.D. 10/30/2022 3:15 PM Venous Doppler Study 10/30/22 15:41 ULTRASOUND BILATERAL LOWER EXTREMITY VENOUS CLINICAL HISTORY: Lower extremity edema. COMPARISON STUDY: Right lower extremity venous ultrasound dated 12/05/2020. Bilateral lower extremity venous ultrasound dated 08/12/2018. TECHNIQUE: Real-time, grayscale, and color Doppler sonography of the deep veins of the right and left lower extremity was performed from the inguinal crease to the calf. Compression and augmentation were utilized. FINDINGS: There is no sonographic evidence of deep venous thrombosis identified in the right or left lower extremity. The common femoral, superficial femoral, and popliteal veins are patent and normally compressible bilaterally. The greater saphenous vein and the profunda femoris vein at the junction with the common femoral vein are clear in both legs. The visualized calf veins are patent bilaterally. Soft tissue edema is present in both legs. IMPRESSION: There is no sonographic evidence of deep venous thrombosis identified in the right or left lower extremity. ACT 112: Negative or not required by law. Electronically signed by: Bryn Jose M.D. 10/30/2022 4:44 PM ECG Data Attestation: I personally reviewed and interpreted this ECG as follows: Interpretation: Atrial fibrillation with rate of 78. QRS and QTc intervals within normal limi ts. No ST elevation or ST depression. PVCs present. MDM Narrative Cardiac monitoring: An order was placed for continuous cardiac monitoring. The monitor shows a rate of 80 with atrial fib rhythm interpreted by me Vital signs stable. Labs show an elevated proBNP. Creatinine at baseline. Patient will be treated with Bumex 1 mg IV push. Ultrasound negative for DVT. Patient be [facility] hospitalist team Dr. Monique notified Impression & Plan CHF exacerbation Discharge Plan Visit Data Chief Complaint: Cardiac Assessment Stated Complaint: A FIB,REF BY DOC,FLUID RETENTION ED Provider: Saurav Washburn Discharge Problem: CHF exacerbation Patient Disposition: Admitted As Inpatient Forms Stand Alone Forms: My [facility] Prescriptions Prescriptions: No Action (DME) lancets [OneTouch UltraSoft Lancets] Misc See Rx Instructions .ROUTE .MEDSUPPLY Qty: 400 3RF Rx Instructions: test blood sugar 4 x daily (DME) insulin syringe-needle U-100 [Easy Comfort Insulin Syringe] 0.5 mL 31 gauge x 5/16" syringe See Rx Instructions .ROUTE .MEDSUPPLY Qty: 400 3RF Rx Instructions: Use four times a day with insulin injection atorvastatin 80 mg tablet 80 mg PO HS Qty: 90 3RF fenofibrate 160 mg tablet 160 mg PO QAM Qty: 90 3RF folic acid 1 mg tablet 1 mg PO QAM Qty: 90 3RF Eliquis 5 mg tablet 5 mg PO BID Qty: 180 3RF (DME) blood sugar diagnostic Strip See Dose Instructions .ROUTE .MEDSUPPLY Qty: 300 3RF Dose Instruction: As directed Rx Instructions: test blood sugar 3 x daily cholecalciferol (vitamin D3) 125 mcg (5,000 unit) capsule 125 mcg PO DAILY pregabalin [Lyrica] 50 mg capsule 50 mg PO BID Qty: 60 4RF fluvoxamine 100 mg capsule,extended release 24hr 150 mg PO BID ondansetron 4 mg tablet,disintegrating 4 mg PO Q8H PRN (Reason: nausea and vomiting) Qty: 30 0RF trazodone 100 mg tablet 150 mg PO HS insulin lispro 100 unit/mL solution 3 unit SQ TIDM furosemide 40 mg tablet 40 mg PO DAILY Qty: 90 3RF amlodipine [Norvasc] 10 mg tablet 10 mg PO DAILY Qty: 90 1RF metoprolol succinate 25 mg tablet extended release 24 hr 25 mg PO DAILY Qty: 90 3RF Retacrit 10,000 unit/mL solution 10,000 unit subcut ONCE Qty: 1 0RF omega-3 fatty acids 1,000 mg capsule 1,000 mg PO DAILY multivitamin [Daily Multi-Vitamin] Tablet 1 tab PO DAILY buspirone 15 mg tablet 15 mg PO BID Retacrit 40,000 unit/mL solution 40,000 unit subcut MONTHLY 15 Days Qty: 15 0RF ferrous sulfate 325 mg (65 mg iron) tablet,delayed release (DR/EC) 325 mg PO DAILY Qty: 30 5RF pantoprazole 40 mg tablet,delayed release (DR/EC) 40 mg PO DAILY Qty: 90 3RF cyanocobalamin (vitamin B-12) 2,500 mcg tablet 2,500 mcg PO ONCE Rx Instructions: M and TH only zinc gluconate 100 mg Tablet 100 mg PO HS lorazepam [Ativan] 1 mg tablet 1 mg PO BID PRN (Reason: anxiety) baclofen 5 mg tablet 5 mg PO TID PRN (Reason: Muscle Spasm) levothyroxine 50 mcg tablet 50 mcg PO DAILYBB Rx Instructions: take with 8 oz of water amoxicillin 500 mg tablet 2,000 mg PO ONCE PRN (Reason: Prophylaxis) Rx Instructions: 4 tabs 1 hour prior to procedure acetaminophen 325 mg Tablet 650 mg PO Q4H PRN (Reason: fever) Qty: 14 0RF Referrals Referrals: William Lewis MD [Primary Care Provider] -
[2022-10-30 15:51] LABS: Albumin Level 3.5 gm/dl (3.4-5.0); BUN Creatinine Ratio 18.1 (10-20); Bilirubin,Total 0.6 mg/dl (0.2-1.0); Calcium 8.7 mg/dl (8.6-10.3); Creatinine Clr Calc Pharmacy 28.8 ml/min; Est GFR (African American) 19.9 ml/min; Est GFR (Non-African American) 17.2 ml/min; Globulin 3.4 gm/dl (2.5-4.0); Potassium 4.4 mmol/L (3.5-5.1); Total Protein 6.9 gm/dl (6.0-8.3)
[2022-10-30 15:57] LABS: Troponin I High Sensitivity 11.1 pg/ml (0-14)
[2022-10-30 16:07] LABS: INR 1.2 (0.9-1.1); Partial Thromboplastin Time 28.8 Seconds (21.0-31.0); Prothrombin Time 12.9 Seconds (9.0-12.0)
--- NOTE | 2022-10-30 16:45 | Ultrasound Report ---
ULTRASOUND BILATERAL LOWER EXTREMITY VENOUS CLINICAL HISTORY: Lower extremity edema. COMPARISON STUDY: Right lower extremity venous ultrasound dated 12/05/2020. Bilateral lower extremity venous ultrasound dated 08/12/2018. TECHNIQUE: Real-time, grayscale, and color Doppler sonography of the deep veins of the right and left lower extremity was performed from the inguinal crease to the calf. Compression and augmentation wer e utilized. FINDINGS: There is no sonographic evidence of deep venous thrombosis identified in the right or left lower extremity. The common femoral, superficial femoral, and popliteal veins are patent and normally compressible bilaterally. The greater saphenous vein and the profunda femoris vein at the junction w ith the common femoral vein are clear in both legs. The visualized calf veins are patent bilaterally. Soft tissue edema is present in both legs. IMPRESSION: There is no sonographic evidence of deep venous thrombosis identified in the right or lef t lower extremity. ACT 112: Negative or not required by law. Electronically signed by: Bryn Jose M.D. 10/30/2022 4:44 PM
[2022-10-30] MEDS ORDERED: BUMETANIDE 1 MG in SYRINGE 0 ML IV ONE (16:51)
--- NOTE | 2022-10-30 18:11 | History & Physical Report ---
Date of Service October 30, 2022 Assessment & Plan (1) Diastolic congestive heart failure: Plan: Weight gain, acute volume overload. Multifactorial acute on chronic diastolic CHF with venous stasis - ekg without acute ischemic change, hs trop normal With dietary salt load, has at least 1 can of [employer] [place] onion soup per day Patient with at least 20 pounds of weight gain in the last month, significant leg swelling. BNP is elevated consistent with CHF Patient does not have pulmonary edema or significant hypoxia, although has started to have shortness of breath on exertion and easy fatigue. Unclear if this is from pulmonary congestion versus effort from weight gain Suspect she has a substantial venous stasis component, patient notes that when the therapist has elevated her legs and done lymphedema massage her leg swelling improved dramatically and pits much more easily Continue Bumex twice daily, recommend venous stasis precautions, wraps, elevation for at least 20 minutes 3 times a day No signs of acute cardiac ischemia Target diuresis net 1-1.5 L output per day Follow creatinine daily Venous Doppler negative for DVT (2) CKD (chronic kidney disease): Plan: With baseline CKD, Baseline creatinine appears around 2.7, has been as high as 3.4 in the recent past Admitting creatinine 2.81 Clinically clearly volume overloaded Trend daily (3) Atrial fibrillation: Plan: Adequately rate controlled, no RVR on admission Continue DOAC, adequately anticoagulated takes this reliably (4) Anemia: Plan: Suspect some component of dilutional anemia. Is due for EPO tomorrow Trend H&H, suspect hemoglobin will improve with diuresis as she concentrates (5) TRUMAN (obstructive sleep apnea): Plan: CPAP nightly as needed, patient tolerates this for (6) Type 2 diabetes mellitus: Plan: Goal BSG [id number] DM 2 diet Glucose checks AC/at bedtime Weight-based basal bolus ordered DVT prophylaxis: Anticoagulated Diet: Low-salt, DM 2 Disposition: Medical telemetry for fluid overload CODE STATUS: Full code History of Present Illness Primary Care Provider: William Lewis MD 61yo F HX CKD, CHF, on eliquis, outpatient bumex being increased due to weight gain without significant benefit. Patient recommended for hospital evaluation and management of fluid overload without hypoxia Pending reports that she has had 20 pound weight gain and severe pitting edema through her legs. Has been taking increased Bumex dose for 10 days with minimal benefit. She saw her PCP on the sixth of this month and was not short of breath at that time, had a trip to [place] that she did not want to delay but on getting back this past week has continually worsened with bilateral leg swelling. Thighs feel tight from fluid. She is now short of breath on exertion and easily short of breath. No chest pressure or chest pain. She does not lay flat and generally sits or sleeps in a recliner so is not sure if she has orthopnea. No fever, chills, sweats, no cough, no productive sputum/cough. No belly pain. No nausea/vomiting/diarrhea. She does not feel her A-fib so does not know when she is in or out of it. She does endorse that she drinks soup, has at least 1 can of [employer] [place] onion soup per day as a meal. Discussed with patient that this is approximately 2000 mg of sodium per day which is already the daily limit. Medical History: Reviewed Medications: Reviewed Surgical History: Reviewed Family history: Reviewed Allergies: Reviewed Social History: Reviewed, no tobacco/alcohol Code Status: Full Allergies Allergy/AdvReac Type Severity Reaction Status Date / Time promethazine Allergy Unknown BROKEN Verified 10/30/22 13:22 CAPILLARIES FACE Iodinated Contrast Media AdvReac Unknown Unknown Verified 10/30/22 13:22 [Iodinated Contrast- Oral and IV Dye] Home Medications Medication Instructions Recorded Confirmed Type zinc gluconate 100 mg tablet 100 mg PO HS 07/23/18 10/30/22 History lorazepam 1 mg tablet (Ativan) 1 mg PO BID PRN anxiety 03/24/19 10/30/22 History buspirone 15 mg tablet 15 mg PO BID 11/28/20 10/30/22 History multivitamin (Daily Multi-Vitamin 1 tab PO DAILY 04/04/21 10/30/22 History tablet) insulin syringe-needle U-100 0.5 #400 ea 04/12/21 10/30/22 Rx mL 31 gauge x 5/16" (Easy Comfort Insulin Syringe) lancets (OneTouch UltraSoft #400 ea 04/12/21 10/30/22 Rx Lancets) omega-3 fatty acids 1,000 mg 1,000 mg PO DAILY 08/21/21 10/30/22 History capsule apixaban 5 mg tablet (Eliquis) 5 mg PO BID #180 tabs 08/30/21 10/30/22 Rx atorvastatin 80 mg tablet 80 mg PO HS #90 tabs 08/30/21 10/30/22 Rx fenofibrate 160 mg tablet 160 mg PO QAM #90 tabs 08/30/21 10/30/22 Rx folic acid 1 mg tablet 1 mg PO QAM #90 tabs 08/30/21 10/30/22 Rx fluvoxamine 100 mg 150 mg PO BID 11/27/21 10/30/22 History capsule,extended release 24 hr blood sugar diagnostic #300 ea 01/02/22 10/30/22 Rx epoetin fernando-epbx 40,000 unit/mL 40,000 unit subcut MONTHLY 15 days 01/10/22 10/30/22 Rx injection solution (Retacrit) #15 mL cholecalciferol (vitamin D3) 125 125 mcg PO DAILY 04/05/22 10/30/22 History mcg (5,000 unit) capsule acetaminophen 325 mg tablet 650 mg PO Q4H PRN fever #14 tabs 06/13/22 10/30/22 Rx amlodipine 10 mg tablet (Norvasc) 10 mg PO DAILY #90 tabs 07/09/22 10/30/22 Rx furosemide 40 mg tablet 40 mg PO DAILY #90 tabs 07/09/22 10/30/22 Rx insulin lispro 100 unit/mL 3 unit subcut TIDM 07/09/22 10/30/22 History subcutaneous solution ondansetron 4 mg disintegrating 4 mg PO Q8H PRN nausea and 07/09/22 10/30/22 Rx tablet vomiting #30 tabs trazodone 100 mg tablet 150 mg PO HS 07/09/22 10/30/22 History metoprolol succinate 25 mg 25 mg PO DAILY #90 tabs 07/23/22 10/30/22 Rx tablet,extended release 24 hr cyanocobalamin (vitamin B-12) 2,500 mcg PO ONCE 10/08/22 10/30/22 History 2,500 mcg tablet ferrous sulfate 325 mg (65 mg 325 mg PO DAILY #30 tabs 10/08/22 10/30/22 Rx iron) tablet,delayed release pantoprazole 40 mg tablet,delayed 40 mg PO DAILY #90 tabs 10/08/22 10/30/22 Rx release pregabalin 50 mg capsule (Lyrica) 50 mg PO BID #60 caps 10/18/22 10/30/22 Rx amoxicillin 500 mg tablet 2,000 mg PO ONCE PRN Prophylaxis 10/30/22 10/30/22 History baclofen 5 mg tablet 5 mg PO TID PRN Muscle Spasm 10/30/22 10/30/22 History levothyroxine 50 mcg tablet 50 mcg PO DAILYBB 10/30/22 10/30/22 History Past Med/Surg History Medical History Acute kidney injury Acute renal failure (05/23/14) 2013. Kidneys recovered to around CKD III, then function worsened around 04/2020. Afib dx August 2020> cardioversions x2. Xarelto > follows Dr. Fontaine > no pacer PATY (acute kidney injury) Anemia due to chronic kidney disease Anxiety and depression Arthralgia of multiple sites Atrial fibrillation and flutter Atrial fibrillation, new onset AV fistula September 07, 2020 > right wrist > not on dialysis at present Avascular necrosis of head of humerus Cardiac murmur Mild TR noted on 2019 echo. Chronic kidney disease, stage 4 (severe) Chronic low back pain Chronic rhinitis Chronic sinusitis CKD (chronic kidney disease) Claustrophobia Closed fracture of greater trochanter of left femur Conjunctivitis Cough Diabetes Diabetic nephropathy Diabetic peripheral neuropathy Diabetic retinopathy, nonproliferative Diastolic congestive heart failure Euvolemic on exam at [facility] 09/02/20. follows with Dr. 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 Per [facility] pulm 12/2019, "fairly stable from a pulmonary perspective. She is short of breath with any exertion, however a large part of this is likely related to obesity. Pulmonary functions done 1 year ago showed only a mild restrictive pattern. Diffusion was slightly decreased to 66%. One year ago she did have a normal arterial blood gas with no evidence of CO2 retention." Using PRN 3L, mostly using with exertion, not using every day. Morbid obesity Nasal septal deviation Nocturnal hypoxia no 02 Nontoxic multinodular goiter TRUMAN (obstructive sleep apnea) PRESCRIBED BIPAP-CAN'T TOLERATE-CLAUSTROPHOBIC PAF (paroxysmal atrial fibrillation) Pneumonia Right sided sciatica Sore throat Syncope Syncope Trochanteric fracture of left femur Vitamin D deficiency Surgical History H/O section x1 History of arthroscopy x2 left shoulder History of colonoscopy History of dermoid cyst excision History of esophagogastroduodenoscopy (EGD) History of mandibular surgery FULL ROM History of total shoulder replacement LEFT 07/19 2015 fracture Hx of cholecystectomy Hx of gastric bypass Hx of right cataract extraction S/P tooth extraction Family History Daughter Bipolar disorder Multiple allergies Aunt Breast cancer Mother Diabetes Heart disease Hypertension Hyperthyroidism Father Hearing loss Gastric cancer Myocardial infarction Grandfather Heart disease Family/Other Hypertension Lung cancer Osteoporosis Stroke Brother Hypertension Grandmother Ovarian cancer Sister Migraine Diabetes Denies family history of Prostate cancer Colorectal cancer Uterine cancer Social History Smoking Status: Never smoker Second Hand Exposure: No; Do You Dip or Chew Tobacco: No; Hx Alcohol Use: No Hx Substance Use: No Preferred Language: Khmer Communication Ability: Effective Visual Impairment: No Limitations Advance Scout Required: No Beliefs That Will Affect Care: Alevism marital status: Single Current Living Situation: Spouse Current Living Situation Comment: Home w/ current occupational status: unemployed Feels Safe at Home: Yes Childhood Exposure to Second-Hand Smoke: Yes Dental Care, Regularly: Yes Physical Activity Frequency: Does not Exercise Seatbelt Use: never Sunscreen Use: Yes Assistive Devices: Glasses Review of Systems Review of Systems: All systems reviewed & are unremarkable except as noted in HPI & below Physical Exam Physical Exam: General: A&Ox3. NAD. Cooperative. HEENT: Atraumatic, normocephalic. Vision/hearing intact Pulm: Diminished in the base, no overt wheezes/rales/rhonchi symmetrical chest rise. No increased work of breathing. No respiratory distress. Cardiac: irir, -mrg. Radial pulses intact and symmetrical. Abdominal: Nontender, nondistended, soft. BS present. Extremities: Pitting edema 3+ through the legs and thighs. Sensation to soft touch intact in hands and feet bilaterally without asymmetry. Right wrist AV fistula Results & Data Results & Data Vital Signs (Past 12 Hours) Vital Signs Temp Pulse Pulse Resp BP BP Pulse Ox 10/30/22 17:30 69 20 93 10/30/22 17:30 140/68 10/30/22 17:01 143/69 H 10/30/22 17:01 74 18 95 10/30/22 15:30 73 14 98 10/30/22 15:30 170/89 H 10/30/22 15:12 83 14 96 10/30/22 15:11 139/83 10/30/22 15:15 78 10/30/22 16:09 73 16 123/83 97 10/30/22 14:30 36.6 C 78 18 129/82 97 O2 Del Method 10/30/22 17:30 10/30/22 17:30 10/30/22 17:01 10/30/22 17:01 10/30/22 15:30 10/30/22 15:30 10/30/22 15:12 10/30/22 15:11 10/30/22 15:15 10/30/22 16:09 10/30/22 14:30 Room Air PG Care Time/CCT Total # of Minutes Spent Total Time Spent with Patient: Total time spent is greater than 50% in coordination of care (as documented) at patient's floor/unit and/or counseling patient: Coding Level of Care Code 67409 INT INP/OBS CARE 375MIN Diagnoses Diastolic congestive heart failure I50.30 CKD (chronic kidney disease) N18.9 Chronic kidney disease stage: unspecified stage Atrial fibrillation I48.91 Atrial fibrillation type: unspecified Anemia D64.9 TRUMAN (obstructive sleep apnea) G47.33 Type 2 diabetes mellitus E11.69; Z79.4 Diabetes mellitus penitentiary insulin use: with intermission coordinator use Diabetes mellitus complication status: with other specified complication (2) CKD (chronic kidney disease) Chronic kidney disease stage: unspecified stage Qualified Code(s): N18.9 - Chronic kidney disease, unspecified (3) Atrial fibrillation Atrial fibrillation type: unspecified Qualified Code(s): I48.91 - Unspecified atrial fibrillation (6) Type 2 diabetes mellitus Diabetes mellitus intermission coordinator insulin use: with penitentiary use Diabetes mellitus complication status: with other specified complication Qualified Code(s): E11.69 - Type 2 diabetes mellitus with other specified complication; Z79.4 - detention (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
[2022-10-30] MEDS ORDERED: DEXTROSE 50% 50 ML SYRINGE IV PRN (18:40)
[2022-10-30] MEDS ORDERED: GLUCOSE 40% GEL 15 GM TUBE PO PRN (18:40)
[2022-10-30] MEDS ORDERED: GLUCAGON FOR INJ 1 MG VIAL SQ PRN (18:40)
[2022-10-30] MEDS ORDERED: CARBOHYDRATES FOR HYPOGLYCEMIA PO PRN (18:40)
[2022-10-30] MEDS ORDERED: GLUCOSE 10 TAB/TUBE PO PRN (18:40)
[2022-10-30] MEDS ORDERED: POLYETHYLENE (MIRALAX) 17 GM PACK PO PRN (20:03)
[2022-10-30] MEDS ORDERED: LORazepam 1 MG TAB PO PRN (20:03)
[2022-10-30] MEDS ORDERED: ACETAMINOPHEN 325 MG TAB PO PRN (20:03)
[2022-10-30] MEDS ORDERED: LANTUS PER UNIT CHARGE SQ SCH (21:00)
[2022-10-30] MEDS: PREGABALIN 50 MG CAP PO SCH (21:04)
[2022-10-30] MEDS: INSULIN ASPART PER UNIT CHARGE SC SCH (21:07)
[2022-10-30] MEDS: busPIRone 15 MG TAB PO SCH (21:09)
[2022-10-30] MEDS: ATORVASTATIN 40 MG TAB PO SCH (21:09)
[2022-10-30] MEDS ORDERED: traZODone HCL 100 MG TAB PO ONE (21:30)
[2022-10-30] MEDS: fluvoxaMINE MALEATE 50 MG TAB PO SCH (21:50)
[2022-10-30] MEDS: APIXABAN 5 MG TABLET PO SCH (21:50)
[2022-10-31] MEDS: LANTUS PER UNIT CHARGE SQ SCH ×2 (01:29→20:59)
[2022-10-31] MEDS: LEVOTHYROXINE SODIUM 50 MCG TABLET PO SCH (05:53)
[2022-10-31 07:14] LABS: Basophils # (auto) 0.04 K/uL (0-0.2); Basophils % (auto) 0.8 %; Eosinophils # (auto) 0.13 K/uL (0-0.50); Eosinophils % (auto) 2.7 %; Hematocrit (blood only) 28.8 % (37.0-47.0); Hemoglobin 8.6 g/dl (12.0-16.0); Immature Granulocytes # (auto) 0.02 K/uL (0.01-0.20); Immature Granulocytes % (auto) 0.4 %; Lymphocytes # (auto) 2.04 K/uL (1.2-3.4); Mean Corpuscular Hgb Conc 29.9 g/dL (32.0-36.0); Mean Platelet Volume 11.9 fL (9.4-12.4); Monocytes # (auto) 0.27 K/uL (0.11-0.59); Monocytes % (auto) 5.6 %; Neutrophils # (auto) 2.36 K/uL (1.40-6.50); Neutrophils % (auto) 48.5 %; Platelet Count 191 K/uL (130-400); RDW Coefficient of Variation 16.1 % (11.5-14.5); RDW Standard Deviation 50.9 fL (36.4-46.3); Red Blood Count 3.31 M/uL (4.20-5.40); White Blood Count 4.86 K/ul (4.8-10.8)
[2022-10-31 07:24] LABS: BUN Creatinine Ratio 17.7 (10-20); Calcium 8.9 mg/dl (8.6-10.3); Creatinine Clr Calc Pharmacy 29.7 ml/min; Est GFR (African American) 21.1 ml/min; Est GFR (Non-African American) 18.2 ml/min; Potassium 4.5 mmol/L (3.5-5.1)
[2022-10-31] MEDS: busPIRone 15 MG TAB PO SCH ×2 (08:35→20:59)
[2022-10-31] MEDS: APIXABAN 5 MG TABLET PO SCH ×2 (08:35→21:00)
[2022-10-31] MEDS: FOLIC ACID 1 MG TAB PO SCH (08:35)
[2022-10-31] MEDS: METOPROLOL SUCC 25MG EXT REL TAB PO SCH (08:35)
[2022-10-31] MEDS: fluvoxaMINE MALEATE 50 MG TAB PO SCH ×2 (08:35→20:59)
[2022-10-31] MEDS: BUMETANIDE 1 MG in SYRINGE 0 ML IV SCH ×2 (08:35→17:26)
[2022-10-31] MEDS: PREGABALIN 50 MG CAP PO SCH ×2 (08:46→20:59)
[2022-10-31] MEDS: INSULIN ASPART PER UNIT CHARGE SC SCH ×4 (08:46→20:11)
--- NOTE | 2022-10-31 08:47 | Hospitalist Progress Note ---
Date of Service October 31, 2022 Assessment & Plan (1) Diastolic congestive heart failure: Plan: acute on chronic diastolic CHF with venous stasis - ekg without acute ischemic change, hs trop normal dietary indescression, BNP is elevated consistent with CHF Bumex twice daily, recommend venous stasis precautions, wraps, elevation for at least 20 minutes 3 times a day wt down 5# Follow creatinine daily, history of CKD3-4 Venous Doppler negative for DVT (2) CKD (chronic kidney disease): Plan: chronic With baseline CKD,3-4 Baseline creatinine appears around 2.7, has been as high as 3.4 in the recent past Admitting creatinine 2.81 Clinically clearly volume overloaded Anemia of chronic disease, takes EPO appears stable (3) Atrial fibrillation: Plan: chronic and stable Continue DOAC, metoprolol succinate 25 (4) Type 2 diabetes mellitus: Plan: chronic type 2 diabetes, appears stable basal bolus CODE STATUS: Full code (5) TRUMAN (obstructive sleep apnea): Plan: CPAP nightly as needed, patient tolerates this for Admission and Anticipated Discharge Date Admission Date: October 30, 2022 Subjective Patient feels somewhat better but still claims to have a significant mount of body weight and fluid upon her There is a documented weight in September of 267 pounds currently at 281 Still dyspneic upon exertion and complaints of feelings swelling or tightness in her thighs Physical Exam Physical Exam: Patient is a regular cardiac exam no significant systolic murmur she has mild basilar crackles she has trace to 1+ bipedal edema and does have some fullness in her thighs Results & Data Results & Data Vital Signs (Past 12 Hours) Vital Signs Temp Pulse Pulse Resp BP Pulse Ox Pulse Ox 10/31/22 08:00 97 10/31/22 08:00 98.1 F 87 20 124/77 97 10/31/22 03:01 97.9 F 72 17 118/73 95 10/31/22 00:09 76 10/30/22 23:00 97.5 F L 69 17 123/76 95 10/30/22 21:28 85 10/30/22 21:28 O2 Del Method O2 Del Method 10/31/22 08:00 Room Air 10/31/22 08:00 Room Air 10/31/22 03:01 Room Air 10/31/22 00:09 10/30/22 23:00 Room Air 10/30/22 21:28 10/30/22 21:28 Room Air Laboratory Results Reviewed CBC reviewed PRP PG Care Time/CCT Total # of Minutes Spent Total Time Spent with Patient: Total time spent is greater than 50% in coordination of care (as documented) at patient's floor/unit and/or counseling patient: Coding Level of Care Code 04232 SUB INP/OBS CARE 3/50MIN Diagnoses Diastolic congestive heart failure I50.30 CKD (chronic kidney disease) N18.9 Chronic kidney disease stage: unspecified stage Atrial fibrillation I48.91 Atrial fibrillation type: unspecified Type 2 diabetes mellitus E11.69; Z79.4 Diabetes mellitus complication status: with other specified complication Diabetes mellitus buttermaker helper insulin use: with buttermaker helper use TRUMAN (obstructive sleep apnea) G47.33 (2) CKD (chronic kidney disease) Chronic kidney disease stage: unspecified stage Qualified Code(s): N18.9 - Chronic kidney disease, unspecified (3) Atrial fibrillation Atrial fibrillation type: unspecified Qualified Code(s): I48.91 - Unspecified atrial fibrillation (4) Type 2 diabetes mellitus Diabetes mellitus complication status: with other specified complication Diabetes mellitus intermediate insulin use: with intermediate use Qualified Code(s): E11.69 - Type 2 diabetes mellitus with other specified complication; Z79.4 - 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
[2022-10-31] MEDS ORDERED: PANTOprazole 40 MG TAB PO SCH (09:00)
[2022-10-31] MEDS: ATORVASTATIN 40 MG TAB PO SCH (21:00)
[2022-10-31] MEDS ORDERED: traZODone HCL 50 MG TAB PO SCH (21:00)
[2022-11-01] MEDS: LEVOTHYROXINE SODIUM 50 MCG TABLET PO SCH (05:42)
[2022-11-01 06:43] LABS: Basophils # (auto) 0.03 K/uL (0-0.2); Basophils % (auto) 0.8 %; Eosinophils % (auto) 2.7 %; Hematocrit (blood only) 25.6 % (37.0-47.0); Hemoglobin 7.8 g/dl (12.0-16.0); Immature Granulocytes # (auto) 0.01 K/uL (0.01-0.20); Immature Granulocytes % (auto) 0.3 %; Lymphocytes # (auto) 1.49 K/uL (1.2-3.4); Lymphocytes % (auto) 39.9 %; Mean Corpuscular Hemoglobin 26.1 pg (25.0-34.0); Mean Corpuscular Hgb Conc 30.5 g/dL (32.0-36.0); Mean Corpuscular Volume 85.6 fL (80.0-100.0); Mean Platelet Volume 12.1 fL (9.4-12.4); Monocytes # (auto) 0.24 K/uL (0.11-0.59); Monocytes % (auto) 6.4 %; Neutrophils # (auto) 1.86 K/uL (1.40-6.50); Neutrophils % (auto) 49.9 %; Platelet Count 150 K/uL (130-400); RDW Coefficient of Variation 16.3 % (11.5-14.5); RDW Standard Deviation 50.6 fL (36.4-46.3); Red Blood Count 2.99 M/uL (4.20-5.40); White Blood Count 3.73 K/ul (4.8-10.8)
[2022-11-01 06:56] LABS: BUN Creatinine Ratio 17.7 (10-20); Calcium 8.6 mg/dl (8.6-10.3); Creatinine Clr Calc Pharmacy 26.7 ml/min; Est GFR (African American) 18.8 ml/min; Est GFR (Non-African American) 16.2 ml/min; Potassium 4.4 mmol/L (3.5-5.1)
[2022-11-01 07:07] LABS: Anisocytosis Present
--- NOTE | 2022-11-01 08:04 | Hospitalist Progress Note ---
Date of Service November 01, 2022 Assessment & Plan (1) Diastolic congestive heart failure: Plan: acute on chronic diastolic CHF with venous stasis - ekg without acute ischemic change, hs trop normal dietary indescression, BNP is elevated consistent with CHF Bumex on hold with recent acute PATY lab work in the afternoon remained stable diuretics were held for the full day of 518 restarted Lasix 40 mg IV every morning on 519 Repeat echocardiogram 11/01/2022 to evaluate ejection fraction and valvular heart disease Follow creatinine daily, history of CKD3-4 now with PATY typically sees Dr. Kang Venous Doppler negative for DVT (2) CKD (chronic kidney disease): Plan: paty with chronic With baseline CKD,3-4 Baseline creatinine appears around 2.7, has been as high as 3.4 in the recent past bun is up, Cr also, anemia is worsened will have discussion about transfusion, double protonix and heme stools Anemia now worsened consider Acute blood loss anemia with anemia of chronic disease, takes EPO appears stable we will check stool Hemoccults Repeat hemoglobin in the afternoon is 8.3 g we will restart her Eliquis therapy checking iron in the morning on 11/02 as she has been low in the past (3) Atrial fibrillation: Plan: chronic and stable now hold DOAC with anemia , metoprolol succinate 25 (4) Type 2 diabetes mellitus: Plan: chronic type 2 diabetes, appears stable basal bolus CODE STATUS: Full code (5) TRUMAN (obstructive sleep apnea): Plan: CPAP nightly as needed, patient tolerates this for Plan Likely dispo in the next few days once renal function anemia and diastolic heart failure is in check Admission and Anticipated Discharge Date Admission Date: October 30, 2022 Subjective Patient's weight is down was 10 pounds however she has a mild decrement in her anemia and escalation of her creatinine. She overall feels better and does not notice any dyspnea on exertion with her anemia although is worsened from her baseline Physical Exam Physical Exam: Awake alert appropriate card exam is regular with a systolic ejection murmur heard best at the right upper sternal border her lungs are clear without wheezes or crackles and extremities have trace edema if any Results & Data Results & Data Vital Signs (Past 12 Hours) Vital Signs Temp Pulse Pulse Resp BP Pulse Ox O2 Del Method 11/01/22 07:49 72 11/01/22 03:25 97.5 F L 73 16 121/73 93 Room Air 11/01/22 00:00 10/31/22 23:45 69 10/31/22 21:00 Room Air 10/31/22 23:04 97.9 F 72 17 135/81 95 Room Air O2 Del Method 11/01/22 07:49 11/01/22 03:25 11/01/22 00:00 Room Air 10/31/22 23:45 10/31/22 21:00 10/31/22 23:04 Laboratory Results Reviewed CBC and PRP ordered repeat CBC PRP and type and screen PG Care Time/CCT Total # of Minutes Spent Total Time Spent with Patient: Total time spent is greater than 50% in coordination of care (as documented) at patient's floor/unit and/or counseling patient: Coding Level of Care Code 57812 SUB INP/OBS CARE 3/50MIN Diagnoses Diastolic congestive heart failure I50.30 CKD (chronic kidney disease) N18.9 Chronic kidney disease stage: unspecified stage Atrial fibrillation I48.91 Atrial fibrillation type: unspecified Type 2 diabetes mellitus E11.69; Z79.4 Diabetes mellitus complication status: with other specified complication Diabetes mellitus [facility] insulin use: with warp tension tester use TRUMAN (obstructive sleep apnea) G47.33 (2) CKD (chronic kidney disease) Chronic kidney disease stage: unspecified stage Qualified Code(s): N18.9 - Chronic kidney disease, unspecified (3) Atrial fibrillation Atrial fibrillation type: unspecified Qualified Code(s): I48.91 - Unspecified atrial fibrillation (4) Type 2 diabetes mellitus Diabetes mellitus complication status: with other specified complication Diabetes mellitus [facility] insulin use: with [facility] use Qualified Code(s): E11.69 - Type 2 diabetes mellitus with other specified complication; Z79.4 - 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
[2022-11-01] MEDS: METOPROLOL SUCC 25MG EXT REL TAB PO SCH (08:21)
[2022-11-01] MEDS: busPIRone 15 MG TAB PO SCH ×2 (08:21→21:56)
[2022-11-01] MEDS: fluvoxaMINE MALEATE 50 MG TAB PO SCH ×2 (08:21→21:56)
[2022-11-01] MEDS: FOLIC ACID 1 MG TAB PO SCH (08:21)
[2022-11-01] MEDS: PANTOprazole 40 MG TAB PO SCH ×2 (08:22→21:56)
[2022-11-01] MEDS: INSULIN ASPART PER UNIT CHARGE SC SCH ×4 (08:23→20:28)
[2022-11-01] MEDS: PREGABALIN 50 MG CAP PO SCH ×2 (08:29→21:56)
[2022-11-01 13:12] LABS: Basophils # (auto) 0.03 K/uL (0-0.2); Basophils % (auto) 0.7 %; Eosinophils # (auto) 0.07 K/uL (0-0.50); Eosinophils % (auto) 1.6 %; Hematocrit (blood only) 26.6 % (37.0-47.0); Hemoglobin 8.3 g/dl (12.0-16.0); Immature Granulocytes # (auto) 0.02 K/uL (0.01-0.20); Immature Granulocytes % (auto) 0.5 %; Lymphocytes # (auto) 1.09 K/uL (1.2-3.4); Lymphocytes % (auto) 24.8 %; Mean Corpuscular Hemoglobin 26.8 pg (25.0-34.0); Mean Corpuscular Hgb Conc 31.2 g/dL (32.0-36.0); Mean Corpuscular Volume 85.8 fL (80.0-100.0); Mean Platelet Volume 11.6 fL (9.4-12.4); Monocytes # (auto) 0.24 K/uL (0.11-0.59); Monocytes % (auto) 5.5 %; Neutrophils # (auto) 2.94 K/uL (1.40-6.50); Neutrophils % (auto) 66.9 %; Platelet Count 145 K/uL (130-400); RDW Coefficient of Variation 16.2 % (11.5-14.5); RDW Standard Deviation 50.2 fL (36.4-46.3); White Blood Count 4.39 K/ul (4.8-10.8)
[2022-11-01 13:21] LABS: BUN Creatinine Ratio 18.3 (10-20); Calcium 8.7 mg/dl (8.6-10.3); Creatinine Clr Calc Pharmacy 27.6 ml/min; Est GFR (African American) 19.5 ml/min; Est GFR (Non-African American) 16.8 ml/min; Potassium 4.7 mmol/L (3.5-5.1)
--- NOTE | 2022-11-01 14:52 | XCELERA ---
[id number]
[2022-11-01] MEDS: FENOFIBRATE~ORDER AWAITING ACTION SCH (15:01)
--- NOTE | 2022-11-01 17:53 | Nephrology Consultation ---
Date of Consultation November 01, 2022 Assessment & Plan (1) CKD (chronic kidney disease): Creatinine slightly elevated from baseline but acceptable. CKD IV A3. No emergent indication for dialysis. AVF mature for use. Baseline creatinine ~2.7 mg/dL. May tolerate some permissive rise in creatinine in setting of diuresis. Maintain dietary sodium restriction. Document daily weights. Document strict I/O's. Repeat metabolic profile tomorrow AM. Screening for monoclonal process (SPEP/IF, SFL, and 24 hours UPIEF) requested. Medications are currently appropriately dosed for kidney function. (2) Diabetic nephropathy with proteinuria: No on SANDRA/ARB due to history of PATY and low BP. Ultimately may benefit from added MRA therapy and possibly SGLT2i as tolerated. Close outpatient follow up will be required post discharge. (3) Anemia: Iron profile to be checked with AM labs. Epogen 67575 units now ordered. (4) Fluid retention: Due to kidney dysfunction, high dietary sodium intake, obesity, HFpEF and presumed predominately RCHF associated with underlying lung disease and obesity. Amlodipine also contributing to LE edema. Ultimately may benefit from potentially revisiting ARB in the future. Hold RAAS blockade now given recent rise in creatinine. Continue diuretics to encourage net daily fluid balance, goal ~1-2 L/day. History of Present Illness Reason for Consultation: paty on ckd 3 in need of diuresis Requesting Physician: Jevon Appiah MD Attending Physician: Jevon Appiah MD History of Present Illness Mrs. Jerri Arellano is a 62 year-old female with chronic kidney disease. She follows in the outpatient clinic with Dr. Kang. Jerri has CKD IV A3. Baseline creatinine ~2.7 mg/dL last month. Proteinuria quantified at 1.2 g/g in May. Renal US in May 2022 demonstrates normal sized right and left kidney with at least moderate symmetric bilateral cortical thinning. CKD has been attributed to DKD. Prior screening for a monoclonal abnormality was reassuring. CKD has been complicated by anemia for which Jerri is maintained on monthly Retacrit 86071 units. Nephrology consultation requested today for assistance of management of volume status in patient with advanced kidney dysfunction. Hospitalization also complicated by acute on chronic anemia. Jerri presented to [facility] on October 30 with fluid retention and a 20 lbs weight gain. She had started to develop shortness of breath which prompted her to present to the ER for evaluation. Jerri reported progressive, severe and uncomfortably LE edema. She had recently returned from a trip to [place]. Home diuretic regimen included furosemide 40 mg daily. Furosemide 40 mg IV has been provided daily since admission. Weight down 130 to 125 kg. Clinical improvement noted. TTE reviewed today. Diuretics were held today due to elevation in creatinine from 2.6 to 2.9 mg/dL in 24 hours. Hemoglobin also noted to be low. No signs of bleeding reported. 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 Serum electrolytes have been normal. Albumin 3.5 gm/dL. No protein gap. No hypercalcemia. Allergies Allergy/AdvReac Type Severity Reaction Status Date / Time promethazine Allergy Unknown BROKEN Verified 10/30/22 13:22 CAPILLARIES FACE Iodinated Contrast Media AdvReac Unknown Unknown Verified 10/30/22 13:22 [Iodinated Contrast- Oral and IV Dye] Home Medications Medication Instructions Recorded Confirmed Type zinc gluconate 100 mg tablet 100 mg PO HS 07/23/18 10/30/22 History lorazepam 1 mg tablet (Ativan) 1 mg PO BID PRN anxiety 03/24/19 10/30/22 History buspirone 15 mg tablet 15 mg PO BID 11/28/20 10/30/22 History multivitamin (Daily Multi-Vitamin 1 tab PO DAILY 04/04/21 10/30/22 History tablet) insulin syringe-needle U-100 0.5 #400 ea 04/12/21 10/30/22 Rx mL 31 gauge x 5/16" (Easy Comfort Insulin Syringe) lancets (OneTouch UltraSoft #400 ea 04/12/21 10/30/22 Rx Lancets) omega-3 fatty acids 1,000 mg 1,000 mg PO DAILY 08/21/21 10/30/22 History capsule apixaban 5 mg tablet (Eliquis) 5 mg PO BID #180 tabs 08/30/21 10/30/22 Rx atorvastatin 80 mg tablet 80 mg PO HS #90 tabs 08/30/21 10/30/22 Rx fenofibrate 160 mg tablet 160 mg PO QAM #90 tabs 08/30/21 10/30/22 Rx folic acid 1 mg tablet 1 mg PO QAM #90 tabs 08/30/21 10/30/22 Rx fluvoxamine 100 mg 150 mg PO BID 11/27/21 10/30/22 History capsule,extended release 24 hr blood sugar diagnostic #300 ea 01/02/22 10/30/22 Rx epoetin fernando-epbx 40,000 unit/mL 40,000 unit subcut MONTHLY 15 days 01/10/22 10/30/22 Rx injection solution (Retacrit) #15 mL cholecalciferol (vitamin D3) 125 125 mcg PO DAILY 04/05/22 10/30/22 History mcg (5,000 unit) capsule acetaminophen 325 mg tablet 650 mg PO Q4H PRN fever #14 tabs 06/13/22 10/30/22 Rx amlodipine 10 mg tablet (Norvasc) 10 mg PO DAILY #90 tabs 07/09/22 10/30/22 Rx furosemide 40 mg tablet 40 mg PO DAILY #90 tabs 07/09/22 10/30/22 Rx insulin lispro 100 unit/mL 3 unit subcut TIDM 07/09/22 10/30/22 History subcutaneous solution ondansetron 4 mg disintegrating 4 mg PO Q8H PRN nausea and 07/09/22 10/30/22 Rx tablet vomiting #30 tabs trazodone 100 mg tablet 150 mg PO HS 07/09/22 10/30/22 History metoprolol succinate 25 mg 25 mg PO DAILY #90 tabs 07/23/22 10/30/22 Rx tablet,extended release 24 hr cyanocobalamin (vitamin B-12) 2,500 mcg PO ONCE 10/08/22 10/30/22 History 2,500 mcg tablet ferrous sulfate 325 mg (65 mg 325 mg PO DAILY #30 tabs 10/08/22 10/30/22 Rx iron) tablet,delayed release pantoprazole 40 mg tablet,delayed 40 mg PO DAILY #90 tabs 10/08/22 10/30/22 Rx release pregabalin 50 mg capsule (Lyrica) 50 mg PO BID #60 caps 10/18/22 10/30/22 Rx amoxicillin 500 mg tablet 2,000 mg PO ONCE PRN Prophylaxis 10/30/22 10/30/22 History baclofen 5 mg tablet 5 mg PO TID PRN Muscle Spasm 10/30/22 10/30/22 History levothyroxine 50 mcg tablet 50 mcg PO DAILYBB 10/30/22 10/30/22 History Patient History Medical History Acute renal failure (05/23/14) 2013. Kidneys recovered to around CKD III, then function worsened around 04/2020. Afib dx August 2020> cardioversions x2. Xarelto > follows Dr. Fontaine > no pacer Anemia due to chronic kidney disease Anxiety and depression Arthralgia of multiple sites Atrial fibrillation and flutter Atrial fibrillation, new onset AV fistula September 07, 2020 > right wrist > not on dialysis at present Avascular necrosis of head of humerus Cardiac murmur Mild TR noted on 2018 echo. Chronic kidney disease, stage 4 (severe) Chronic low back pain Chronic rhinitis CKD (chronic kidney disease) Claustrophobia Closed fracture of greater trochanter of left femur Conjunctivitis Cough Diabetes Diabetic nephropathy Diabetic peripheral neuropathy Diabetic retinopathy, nonproliferative Diastolic congestive heart failure Euvolemic on exam at [facility] 09/02/20. follows with Dr. 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 Per [facility] pulm 12/2019, "fairly stable from a pulmonary perspective. She is short of breath with any exertion, however a large part of this is likely related to obesity. Pulmonary functions done 1 year ago showed only a mild restrictive pattern. Diffusion was slightly decreased to 66%. One year ago she did have a normal arterial blood gas with no evidence of CO2 retention." Using PRN 3L, mostly using with exertion, not using every day. Morbid obesity Nasal septal deviation Nocturnal hypoxia no 02 Nontoxic multinodular goiter TRUMAN (obstructive sleep apnea) PRESCRIBED BIPAP-CAN'T TOLERATE-CLAUSTROPHOBIC PAF (paroxysmal atrial fibrillation) Pneumonia Right sided sciatica Sore throat Syncope Trochanteric fracture of left femur Surgical History H/O section x1 History of arthroscopy x2 left shoulder History of colonoscopy History of dermoid cyst excision History of esophagogastroduodenoscopy (EGD) History of mandibular surgery FULL ROM History of total shoulder replacement LEFT 2/2 2016 fracture Hx of cholecystectomy Hx of gastric bypass Hx of right cataract extraction S/P tooth extraction Family History Daughter Bipolar disorder Multiple allergies Aunt Breast cancer Mother Diabetes Heart disease Hypertension Hyperthyroidism Father Hearing loss Gastric cancer Myocardial infarction Grandfather Heart disease Family/Other Hypertension Lung cancer Osteoporosis Stroke Brother Hypertension Grandmother Ovarian cancer Sister Migraine Diabetes Denies family history of Prostate cancer Colorectal cancer Uterine cancer Social History Smoking Status: Never smoker Second Hand Exposure: No; Do You Dip or Chew Tobacco: No; Tobacco Cessation Education Requested by Patient: No Hx Alcohol Use: No Hx Substance Use: No Preferred Language: Djiboutian Communication Ability: Effective Visual Impairment: No Limitations Assistant Softball Coach Required: No Beliefs That Will Affect Care: None marital status: Single Current Living Situation: Spouse Current Living Situation Comment: Home w/ current occupational status: unemployed Other Information That Helps Us Care for You: No Feels Safe at Home: Yes Safety Concerns: Feels Safe At This Time Childhood Exposure to Second-Hand Smoke: Yes Dental Care, Regularly: Yes Physical Activity Frequency: Does not Exercise Seatbelt Use: never Sunscreen Use: Yes Assistive Devices: Walker Review of Systems Review of Systems: All systems reviewed & are unremarkable except as noted in HPI & below Respiratory: + dyspnea (improved since admission) Physical Exam Constitutional: well developed; no acute distress Eyes: no scleral abnormality and no corneal abnormality ENMT: Mouth: no oral mucosal abnormality and oral mucous membranes not dry Neck: normal visual inspection and trachea midline Respiratory: normal respiratory effort Auscultation: lungs clear to auscultation bilaterally Cardiovascular: Rate/Rhythm: + irregularly irregular Heart Sounds: normal S1, normal S2 and + murmur Extremities: + edema and + AV fistula Musculoskeletal: Extremities: no cyanosis and no clubbing Skin: normal turgor; no jaundice Neurologic: Motor/Sensory: no tremor and no asterixis Psychiatric: Orientation: alert and oriented x 3 Results & Data Vital Signs (Past 12 Hours) Vital Signs Temp Pulse Pulse Resp BP Pulse Ox O2 Del Method 11/01/22 15:50 36.8 C 69 18 128/66 97 Room Air 11/01/22 15:25 67 11/01/22 11:45 36.7 C 89 20 139/72 97 Room Air 11/01/22 10:22 Room Air 11/01/22 08:44 36.8 C 87 18 119/72 98 Room Air 11/01/22 07:49 72 Laboratory Results Laboratory Results - last 24 hr 10/31/22 11/01/22 11/01/22 20:08 03:35 05:45 WBC 3.73 L RBC 2.99 L Hgb 7.8 L Hct 25.6 L MCV 85.6 MCH 26.1 MCHC 30.5 L RDW Std Deviation 50.6 H RDW Coeff of Chantal 16.3 H Plt Count 150 MPV 12.1 Immature Gran % (Auto) 0.3 Neut % (Auto) 49.9 Lymph % (Auto) 39.9 [place] % (Auto) 6.4 Eos % (Auto) 2.7 Baso % (Auto) 0.8 Neut # (Auto) 1.86 Lymph # (Auto) 1.49 [place] # (Auto) 0.24 Eos # (Auto) 0.10 Baso # (Auto) 0.03 Immature Gran # (Auto) 0.01 Anisocytosis Present Sodium Potassium Chloride Carbon Dioxide Anion Gap BUN Creatinine Est Cr Clr Drug Dosing Est GFR ( Amer) Est GFR (Non-Af Amer) BUN/Creatinine Ratio Glucose POC Glucose 133 H 107 H Calcium Blood Type Antibody Screen 11/01/22 11/01/22 11/01/22 05:45 07:39 11:19 WBC RBC Hgb Hct MCV MCH MCHC RDW Std Deviation RDW Coeff of Chantal Plt Count MPV Immature Gran % (Auto) Neut % (Auto) Lymph % (Auto) [place] % (Auto) Eos % (Auto) Baso % (Auto) Neut # (Auto) Lymph # (Auto) [place] # (Auto) Eos # (Auto) Baso # (Auto) Immature Gran # (Auto) Anisocytosis Sodium 144 Potassium 4.4 Chloride 111 H Carbon Dioxide 27 Anion Gap 6 BUN 52 H Creatinine 2.93 H Est Cr Clr Drug Dosing 26.7 Est GFR ( Amer) 18.8 Est GFR (Non-Af Amer) 16.2 BUN/Creatinine Ratio 17.7 Glucose 100 H POC Glucose 104 H 134 H Calcium 8.6 Blood Type Antibody Screen 11/01/22 11/01/22 11/01/22 12:32 12:32 12:32 WBC 4.39 L RBC 3.10 L Hgb 8.3 L Hct 26.6 L MCV 85.8 MCH 26.8 MCHC 31.2 L RDW Std Deviation 50.2 H RDW Coeff of Chantal 16.2 H Plt Count 145 MPV 11.6 Immature Gran % (Auto) 0.5 Neut % (Auto) 66.9 Lymph % (Auto) 24.8 [place] % (Auto) 5.5 Eos % (Auto) 1.6 Baso % (Auto) 0.7 Neut # (Auto) 2.94 Lymph # (Auto) 1.09 L [place] # (Auto) 0.24 Eos # (Auto) 0.07 Baso # (Auto) 0.03 Immature Gran # (Auto) 0.02 Anisocytosis Sodium 143 Potassium 4.7 Chloride 110 H Carbon Dioxide 26 Anion Gap 7 BUN 52 H Creatinine 2.84 H Est Cr Clr Drug Dosing 27.6 Est GFR ( Amer) 19.5 Est GFR (Non-Af Amer) 16.8 BUN/Creatinine Ratio 18.3 Glucose 163 H POC Glucose Calcium 8.7 Blood Type O Positive Antibody Screen NEGATIVE 11/01/22 16:19 WBC RBC Hgb Hct MCV MCH MCHC RDW Std Deviation RDW Coeff of Chantal Plt Count MPV Immature Gran % (Auto) Neut % (Auto) Lymph % (Auto) [place] % (Auto) Eos % (Auto) Baso % (Auto) Neut # (Auto) Lymph # (Auto) [place] # (Auto) Eos # (Auto) Baso # (Auto) Immature Gran # (Auto) Anisocytosis Sodium Potassium Chloride Carbon Dioxide Anion Gap BUN Creatinine Est Cr Clr Drug Dosing Est GFR ( Amer) Est GFR (Non-Af Amer) BUN/Creatinine Ratio Glucose POC Glucose 146 H Calcium Blood Type Antibody Screen Diagnostic Findings XR chest 1V portable FINDINGS: Cardiac silhouette is enlarged. Atherosclerosis of the aorta. Reverse left shoulder arthroplasty. Degenerative changes of the right shoulder and spine. No pneumothorax, pleural effusion, airspace consolidation or pulmonary edema. IMPRESSION: No acute process. Transthoracic echocardiogram: Normal LV size and function. Mild concentric LVH. Mild to moderate MR. Moderate TR. IVC dilated. PG Care Time/CCT Total # of Minutes Spent Total Time Spent with Patient: Total time spent is greater than 50% in coordination of care (as documented) at patient's floor/unit and/or counseling patient: Coding Level of Care Code 24891 IN/OBS CONSULT LVL 4,60M Diagnoses CKD (chronic kidney disease) N18.9 Chronic kidney disease stage: unspecified stage Diabetic nephropathy with proteinuria E11.21 Anemia D64.9 Fluid retention R60.9 (1) CKD (chronic kidney disease) Chronic kidney disease stage: unspecified stage Qualified Code(s): N18.9 - Chronic kidney disease, unspecified
[2022-11-01] MEDS ORDERED: EPOETIN ALFA 40,000 UNITS/ML VIAL SQ ONE (19:30)
[2022-11-01] MEDS: LANTUS PER UNIT CHARGE SQ SCH (20:37)
[2022-11-01] MEDS: APIXABAN 5 MG TABLET PO SCH (21:56)
[2022-11-01] MEDS: traZODone HCL 100 MG TAB PO SCH (21:56)
[2022-11-01] MEDS: ATORVASTATIN 40 MG TAB PO SCH (21:57)
[2022-11-02] MEDS: FENOFIBRATE~ORDER AWAITING ACTION SCH ×2 (01:05→09:47)
[2022-11-02] MEDS: LEVOTHYROXINE SODIUM 50 MCG TABLET PO SCH (05:53)
[2022-11-02 06:29] LABS: Basophils # (auto) 0.02 K/uL (0-0.2); Basophils % (auto) 0.5 %; Eosinophils # (auto) 0.08 K/uL (0-0.50); Hematocrit (blood only) 25.8 % (37.0-47.0); Hemoglobin 7.9 g/dl (12.0-16.0); Immature Granulocytes # (auto) 0.01 K/uL (0.01-0.20); Immature Granulocytes % (auto) 0.3 %; Lymphocytes # (auto) 1.78 K/uL (1.2-3.4); Lymphocytes % (auto) 44.9 %; Mean Corpuscular Hgb Conc 30.6 g/dL (32.0-36.0); Mean Corpuscular Volume 84.9 fL (80.0-100.0); Mean Platelet Volume 12.4 fL (9.4-12.4); Monocytes # (auto) 0.23 K/uL (0.11-0.59); Monocytes % (auto) 5.8 %; Neutrophils # (auto) 1.84 K/uL (1.40-6.50); Neutrophils % (auto) 46.5 %; Platelet Count 161 K/uL (130-400); RDW Coefficient of Variation 16.2 % (11.5-14.5); RDW Standard Deviation 50.5 fL (36.4-46.3); Red Blood Count 3.04 M/uL (4.20-5.40); White Blood Count 3.96 K/ul (4.8-10.8)
[2022-11-02 06:43] LABS: Albumin Level 2.8 gm/dl (3.4-5.0); Calcium 8.6 mg/dl (8.6-10.3); Creatinine Clr Calc Pharmacy 26.2 ml/min; Est GFR (African American) 18.3 ml/min; Est GFR (Non-African American) 15.8 ml/min; Phosphorus 3.9 mg/dl (2.5-4.9); Potassium 4.4 mmol/L (3.5-5.1)
[2022-11-02 07:02] LABS: Ferritin 206.7 ng/ml (8-388)
[2022-11-02 07:16] LABS: Acanthocytes 1+; Polychromasia 1+
[2022-11-02] MEDS: INSULIN ASPART PER UNIT CHARGE SC SCH ×4 (08:19→20:55)
[2022-11-02] MEDS: METOPROLOL SUCC 25MG EXT REL TAB PO SCH (08:23)
[2022-11-02] MEDS: APIXABAN 5 MG TABLET PO SCH ×2 (08:23→21:41)
[2022-11-02] MEDS: FOLIC ACID 1 MG TAB PO SCH (08:24)
[2022-11-02] MEDS: FUROSEMIDE 40 MG/4 ML VIAL IV SCH (08:24)
[2022-11-02] MEDS: busPIRone 15 MG TAB PO SCH ×2 (08:24→21:42)
[2022-11-02] MEDS: PREGABALIN 50 MG CAP PO SCH ×2 (08:24→21:48)
[2022-11-02] MEDS: PANTOprazole 40 MG TAB PO SCH ×2 (08:24→21:43)
[2022-11-02] MEDS: fluvoxaMINE MALEATE 50 MG TAB PO SCH ×2 (08:24→21:42)
--- NOTE | 2022-11-02 10:21 | Nephrology Progress Note ---
Date of Service November 02, 2022 Assessment & Plan (1) CKD (chronic kidney disease): Plan: Creatinine slightly elevated from baseline but acceptable. CKD IV A3. No emergent indication for dialysis. AVF mature for use. Baseline creatinine ~2.7 mg/dL. Allow permissive rise in creatinine in setting of diuresis. Maintain dietary sodium restriction. Document daily weights. Document strict I/O's. Repeat metabolic profile tomorrow AM. Screening for monoclonal process (SPEP/IF, SFL, and 24 hours UPIEF) pending. Medications are currently appropriately dosed for kidney function. (2) Diabetic nephropathy with proteinuria: Plan: No on SANDRA/ARB due to history of PATY and low BP. Ultimately may benefit from added MRA therapy and possibly SGLT2i as tolerated but would not add therapy until kidney function stable. Close outpatient follow up will be required post discharge. (3) Anemia: Plan: Iron profile acceptable but slightly low: Tsat 22 and ferritin 206. Single dose of venofer 200 mg IV provided today. Epogen 15050 units provided yesterday. Denies any signs of GI blood loss. (4) Fluid retention: Plan: Attributed to kidney dysfunction, high dietary sodium intake, obesity, HFpEF and predominately RCHF associated with underlying lung disease and obesity. Amlodipine also contributing to LE edema. Ultimately may benefit from potentially revisiting ARB in the future. Hold RAAS blockade now given recent rise in creatinine. Continue diuretics to encourage net daily fluid balance, goal ~1-2 L/day. Admission and Anticipated Discharge Date Admission Date: October 30, 2022 Subjective No acute events overnight. Jerri feels well this AM. Out of bed to the bathroom. Feels that LE edema has increased slightly. Weight increased ~1 kg. I/O's remain negative by documentation. No lightheadedness, dizziness, syncope, or presyncope. No chest pain or shortness of breath. Review of Systems Review of Systems: All systems reviewed & are unremarkable except as noted in HPI & below Physical Exam Constitutional: well developed; no acute distress Eyes: no scleral abnormality and no corneal abnormality ENMT: Mouth: no oral mucosal abnormality and oral mucous membranes not dry Neck: normal visual inspection and trachea midline Respiratory: normal respiratory effort Auscultation: lungs clear to auscultation bilaterally Cardiovascular: Rate/Rhythm: + irregularly irregular Heart Sounds: normal S1, normal S2 and + murmur Extremities: + edema and + AV fistula Musculoskeletal: Extremities: no cyanosis and no clubbing Skin: normal turgor; no jaundice Neurologic: Motor/Sensory: no tremor and no asterixis Psychiatric: Orientation: alert and oriented x 3 Results & Data Vital Signs (Past 12 Hours) Vital Signs Temp Pulse Pulse Pulse Resp BP Pulse Ox 11/02/22 07:40 65 11/02/22 07:40 11/02/22 08:00 36.7 C 69 20 156/83 H 100 11/02/22 02:53 36.4 C L 75 17 123/79 96 11/02/22 00:11 67 11/02/22 00:11 11/01/22 22:38 36.6 C 66 17 126/74 96 Pulse Ox O2 Del Method O2 Del Method 11/02/22 07:40 11/02/22 07:40 Room Air 11/02/22 08:00 Room Air 11/02/22 02:53 Room Air 11/02/22 00:11 11/02/22 00:11 94 Room Air 11/01/22 22:38 Room Air Laboratory Results Laboratory Results - last 24 hr 11/01/22 11/01/22 11/01/22 11:19 12:32 12:32 WBC 4.39 L RBC 3.10 L Hgb 8.3 L Hct 26.6 L MCV 85.8 MCH 26.8 MCHC 31.2 L RDW Std Deviation 50.2 H RDW Coeff of Chantal 16.2 H Plt Count 145 MPV 11.6 Immature Gran % (Auto) 0.5 Neut % (Auto) 66.9 Lymph % (Auto) 24.8 [place] % (Auto) 5.5 Eos % (Auto) 1.6 Baso % (Auto) 0.7 Neut # (Auto) 2.94 Lymph # (Auto) 1.09 L [place] # (Auto) 0.24 Eos # (Auto) 0.07 Baso # (Auto) 0.03 Immature Gran # (Auto) 0.02 Polychromasia Acanthocytes (Spur) Sodium Potassium Chloride Carbon Dioxide Anion Gap BUN Creatinine Est Cr Clr Drug Dosing Est GFR ( Amer) Est GFR (Non-Af Amer) BUN/Creatinine Ratio Glucose POC Glucose 134 H Calcium Phosphorus Iron TIBC Unsaturated IBC Transferrin % Sat Ferritin Total Protein (PEP) Albumin Albumin (PEP) Gbzsy-2-Pxvbusqnm Kftst-1-Umaxsqodk Fday-8-Wgxcweli Ecyl-7-Hianaejn Gamma Globulins Monoclonal Peak 3 Ser Monoclonl Protein Ser Monoclonal Prot 2 PEP Interpretation Serum Immunofixation Free [place] LC, Quant Free Lambda LC, Quant Free [place]/Lambda Ratio Blood Type O Positive Antibody Screen NEGATIVE 11/01/22 11/01/22 11/01/22 12:32 16:19 20:08 WBC RBC Hgb Hct MCV MCH MCHC RDW Std Deviation RDW Coeff of Chantal Plt Count MPV Immature Gran % (Auto) Neut % (Auto) Lymph % (Auto) [place] % (Auto) Eos % (Auto) Baso % (Auto) Neut # (Auto) Lymph # (Auto) [place] # (Auto) Eos # (Auto) Baso # (Auto) Immature Gran # (Auto) Polychromasia Acanthocytes (Spur) Sodium 143 Potassium 4.7 Chloride 110 H Carbon Dioxide 26 Anion Gap 7 BUN 52 H Creatinine 2.84 H Est Cr Clr Drug Dosing 27.6 Est GFR ( Amer) 19.5 Est GFR (Non-Af Amer) 16.8 BUN/Creatinine Ratio 18.3 Glucose 163 H POC Glucose 146 H 126 H Calcium 8.7 Phosphorus Iron TIBC Unsaturated IBC Transferrin % Sat Ferritin Total Protein (PEP) Albumin Albumin (PEP) Osmow-8-Gwxmnoigb Bhtzi-7-Hvaedjwcf Jdtp-5-Kbtblwhb Xopu-4-Lannuhvw Gamma Globulins Monoclonal Peak 3 Ser Monoclonl Protein Ser Monoclonal Prot 2 PEP Interpretation Serum Immunofixation Free [place] LC, Quant Free Lambda LC, Quant Free [place]/Lambda Ratio Blood Type Antibody Screen 11/02/22 11/02/22 11/02/22 05:27 05:27 05:27 WBC 3.96 L RBC 3.04 L Hgb 7.9 L Hct 25.8 L MCV 84.9 MCH 26.0 MCHC 30.6 L RDW Std Deviation 50.5 H RDW Coeff of Chantal 16.2 H Plt Count 161 MPV 12.4 Immature Gran % (Auto) 0.3 Neut % (Auto) 46.5 Lymph % (Auto) 44.9 [place] % (Auto) 5.8 Eos % (Auto) 2.0 Baso % (Auto) 0.5 Neut # (Auto) 1.84 Lymph # (Auto) 1.78 [place] # (Auto) 0.23 Eos # (Auto) 0.08 Baso # (Auto) 0.02 Immature Gran # (Auto) 0.01 Polychromasia 1+ Acanthocytes (Spur) 1+ Sodium 143 Potassium 4.4 Chloride 111 H Carbon Dioxide 27 Anion Gap 5 BUN 54 H Creatinine 3.00 H Est Cr Clr Drug Dosing 26.2 Est GFR ( Amer) 18.3 Est GFR (Non-Af Amer) 15.8 BUN/Creatinine Ratio 18.0 Glucose 89 POC Glucose Calcium 8.6 Phosphorus 3.9 Iron 62 TIBC 277 Unsaturated IBC 215 Transferrin % Sat 22 Ferritin 206.7 Total Protein (PEP) Pending Albumin 2.8 L Albumin (PEP) Pending Kbxgj-1-Xlrrxwxat Pending Dztpq-7-Srskbzaot Pending Pmpv-5-Nmqzjpjq Pending Piyq-5-Shqawqoe Pending Gamma Globulins Pending Monoclonal Peak 3 Pending Ser Monoclonl Protein Pending Ser Monoclonal Prot 2 Pending PEP Interpretation Pending Serum Immunofixation Pending Free [place] LC, Quant Pending Free Lambda LC, Quant Pending Free [place]/Lambda Ratio Pending Blood Type Antibody Screen 11/02/22 07:26 WBC RBC Hgb Hct MCV MCH MCHC RDW Std Deviation RDW Coeff of Chantal Plt Count MPV Immature Gran % (Auto) Neut % (Auto) Lymph % (Auto) [place] % (Auto) Eos % (Auto) Baso % (Auto) Neut # (Auto) Lymph # (Auto) [place] # (Auto) Eos # (Auto) Baso # (Auto) Immature Gran # (Auto) Polychromasia Acanthocytes (Spur) Sodium Potassium Chloride Carbon Dioxide Anion Gap BUN Creatinine Est Cr Clr Drug Dosing Est GFR ( Amer) Est GFR (Non-Af Amer) BUN/Creatinine Ratio Glucose POC Glucose 96 Calcium Phosphorus Iron TIBC Unsaturated IBC Transferrin % Sat Ferritin Total Protein (PEP) Albumin Albumin (PEP) Mpnvx-3-Pkvjjyvsv Glwjg-9-Tqkdpykau Hxtg-7-Joarvxwr Vhjr-1-Comeiuph Gamma Globulins Monoclonal Peak 3 Ser Monoclonl Protein Ser Monoclonal Prot 2 PEP Interpretation Serum Immunofixation Free [place] LC, Quant Free Lambda LC, Quant Free [place]/Lambda Ratio Blood Type Antibody Screen PG Care Time/CCT Total # of Minutes Spent Total Time Spent with Patient: Total time spent is greater than 50% in coordination of care (as documented) at patient's floor/unit and/or counseling patient: Coding Level of Care Code 87197 SUB INP/OBS CARE 50MIN Diagnoses CKD (chronic kidney disease) N18.9 Chronic kidney disease stage: unspecified stage Diabetic nephropathy with proteinuria E11.21 Anemia D64.9 Fluid retention R60.9 (1) CKD (chronic kidney disease) Chronic kidney disease stage: unspecified stage Qualified Code(s): N18.9 - Chronic kidney disease, unspecified
[2022-11-02] MEDS ORDERED: IRON SUCROSE 200 MG in 0.9 % SODIUM CHLORIDE 100 ML IV ONE (10:45)
[2022-11-02] MEDS: ATORVASTATIN 40 MG TAB PO SCH (21:41)
[2022-11-02] MEDS: NYSTATIN CR 15 GM TUBE EXT SCH (21:42)
[2022-11-02] MEDS: traZODone HCL 100 MG TAB PO SCH (21:43)
[2022-11-02] MEDS: LANTUS PER UNIT CHARGE SQ SCH (21:45)
--- NOTE | 2022-11-02 22:50 | Hospitalist Progress Note ---
Date of Service November 02, 2022 Assessment & Plan (1) Diastolic congestive heart failure: Plan: acute on chronic diastolic CHF with venous stasis - ekg without acute ischemic change, hs trop normal dietary indescression, BNP is elevated consistent with CHF Bumex on hold with recent acute PATY lab work in the afternoon remained stable diuretics were held for the full day of 518 restarted Lasix 40 mg IV every morning on 519 Repeat echocardiogram 11/01/2022 to evaluate ejection fraction and valvular heart disease Follow creatinine daily, history of CKD3-4 now with PATY typically sees Dr. Kang Venous Doppler negative for DVT -will continue with IV lasix. (2) CKD (chronic kidney disease): Plan: paty with chronic With baseline CKD,3-4 Baseline creatinine appears around 2.7, has been as high as 3.4 in the recent past bun is up, Cr also, anemia is worsened will have discussion about transfusion, double protonix and heme stools Anemia now worsened consider Acute blood loss anemia with anemia of chronic disease, takes EPO appears stable we will check stool Hemoccults Repeat hemoglobin in the afternoon is 8.3 g we will restart her Eliquis therapy checking iron in the morning on 11/02 as she has been low in the past (3) Atrial fibrillation: Plan: chronic and stable now hold DOAC with anemia , metoprolol succinate 25 (4) Type 2 diabetes mellitus: Plan: chronic type 2 diabetes, appears stable basal bolus CODE STATUS: Full code (5) TRUMAN (obstructive sleep apnea): Plan: CPAP nightly as needed, patient tolerates this for Plan Likely dispo in the next few days once renal function anemia and diastolic heart failure is in check Admission and Anticipated Discharge Date Admission Date: October 30, 2022 Subjective Patient reports no new symptoms. Review of Systems Review of Systems: All systems reviewed & are unremarkable except as noted in HPI & below Physical Exam Physical Exam: Awake alert appropriate card exam is regular with a systolic ejection murmur heard best at the right upper sternal border lungs are clear without wheezes or crackles Lower extremities have 2+ pedal edema Results & Data Results & Data Vital Signs (Past 12 Hours) Vital Signs Temp Pulse Pulse Resp BP Pulse Ox O2 Del Method 11/02/22 19:41 36.8 C 74 24 137/75 96 Room Air 11/02/22 16:49 65 11/02/22 15:20 37.0 C 70 18 138/79 97 Room Air 11/02/22 11:30 36.8 C 67 18 135/83 100 Room Air 11/02/22 12:11 36.8 C 73 14 149/87 H 99 Room Air PG Care Time/CCT Total # of Minutes Spent Total Time Spent with Patient: Total time spent is greater than 50% in coordination of care (as documented) at patient's floor/unit and/or counseling patient: Coding Level of Care Code 54733 SUB INP/OBS CARE 235MIN Diagnoses Diastolic congestive heart failure I50.30 CKD (chronic kidney disease) N18.9 Chronic kidney disease stage: unspecified stage Atrial fibrillation I48.91 Atrial fibrillation type: unspecified Type 2 diabetes mellitus E11.69; Z79.4 Diabetes mellitus complication status: with other specified complication Diabetes mellitus sfdc technical architect insulin use: with sfdc technical architect use TRUMAN (obstructive sleep apnea) G47.33 (2) CKD (chronic kidney disease) Chronic kidney disease stage: unspecified stage Qualified Code(s): N18.9 - Chronic kidney disease, unspecified (3) Atrial fibrillation Atrial fibrillation type: unspecified Qualified Code(s): I48.91 - Unspecified atrial fibrillation (4) Type 2 diabetes mellitus Diabetes mellitus complication status: with other specified complication Diabetes mellitus sfdc technical architect insulin use: with sfdc technical architect use Qualified Code(s): E11.69 - Type 2 diabetes mellitus with other specified complication; Z79.4 - [facility] (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
[2022-11-03] MEDS: LEVOTHYROXINE SODIUM 50 MCG TABLET PO SCH (06:07)
[2022-11-03] MEDS: INSULIN ASPART PER UNIT CHARGE SC SCH ×4 (08:20→20:35)
[2022-11-03 08:21] LABS: Hematocrit (blood only) 29.2 % (37.0-47.0); Hemoglobin 8.8 g/dl (12.0-16.0); Mean Corpuscular Hemoglobin 25.9 pg (25.0-34.0); Mean Corpuscular Hgb Conc 30.1 g/dL (32.0-36.0); Mean Corpuscular Volume 85.9 fL (80.0-100.0); Mean Platelet Volume 11.6 fL (9.4-12.4); Nucleated RBC # (auto) 0.02 K/uL (0-0.12); Nucleated RBC % (auto) 0.4 %; Platelet Count 159 K/uL (130-400); RDW Coefficient of Variation 16.5 % (11.5-14.5); RDW Standard Deviation 51.3 fL (36.4-46.3); White Blood Count 4.53 K/ul (4.8-10.8)
[2022-11-03] MEDS: METOPROLOL SUCC 25MG EXT REL TAB PO SCH (08:26)
[2022-11-03] MEDS: FOLIC ACID 1 MG TAB PO SCH (08:26)
[2022-11-03] MEDS: APIXABAN 5 MG TABLET PO SCH ×2 (08:26→21:56)
[2022-11-03] MEDS: FENOFIBRATE NANOCRYSTALLIZED 145 MG TABLET PO SCH (08:27)
[2022-11-03] MEDS: NYSTATIN CR 15 GM TUBE EXT SCH ×2 (08:27→21:58)
[2022-11-03] MEDS: fluvoxaMINE MALEATE 50 MG TAB PO SCH ×2 (08:27→21:55)
[2022-11-03] MEDS: FUROSEMIDE 40 MG/4 ML VIAL IV SCH (08:27)
[2022-11-03] MEDS: PREGABALIN 50 MG CAP PO SCH ×2 (08:27→21:57)
[2022-11-03] MEDS: busPIRone 15 MG TAB PO SCH ×2 (08:27→21:56)
[2022-11-03] MEDS: PANTOprazole 40 MG TAB PO SCH ×2 (08:27→21:54)
[2022-11-03 08:36] LABS: Albumin Level 3.2 gm/dl (3.4-5.0); Calcium 8.9 mg/dl (8.6-10.3); Creatinine Clr Calc Pharmacy 28.3 ml/min; Est GFR (African American) 20.4 ml/min; Est GFR (Non-African American) 17.6 ml/min; Phosphorus 3.6 mg/dl (2.5-4.9); Potassium 4.4 mmol/L (3.5-5.1)
--- NOTE | 2022-11-03 10:55 | Nephrology Progress Note ---
Date of Service November 03, 2022 Assessment & Plan (1) Fluid retention: Plan: * Attributed to kidney dysfunction, high dietary sodium intake, obesity, HFpEF and predominately RCHF associated with underlying lung disease and obesity * Amlodipine may also contributing to LE edema. Note that SANDRA/ARB held due to h/o PATY, relative hypotension in the past * Continue IV loop diuretic to encourage net daily diuresis of 1-2 L/day * Will consult dietitian for education on low Na diet (patient eating canned soup daily) (2) CKD (chronic kidney disease): Plan: * CKD stage G4/A3 (advanced impairment). Baseline Cr 2.7 w/ EGFR 18 cc/min. Renal impairment is due to DKD. Primary Patrol Driver is Dr. Kang * SANDRA/ARB held due to h/o PATY, relative hypotension * Screening for monoclonal process (SPEP/IF, SFL, and 24 hours UPIEF) - pending (3) Anemia: Plan: * 11/02/22 Iron saturation 22%, ferritin 206 * Venofer 200 mg IV x1 given 11/01/22. Will continue for 1g total infusion * Epogen 40,000 units provided 11/01/22 Admission and Anticipated Discharge Date Admission Date: October 30, 2022 Subjective Mrs. Arellano was evaluated in her hospital room this morning. She reports brisk UO in response to IV diuretic therapy. Her weight is down 3 kg overnight but her legs remain swollen Review of Systems Constitutional: no fever Eyes: no problem reported Ear, Nose, Mouth, Throat: no problem reported Respiratory: no cough and no dyspnea Cardiovascular: no chest pain Gastrointestinal: no abdominal pain, no vomiting and no diarrhea/loose stools Genitourinary: no dysuria and no hematuria Integumentary: no rash Physical Exam Constitutional: not in distress Eyes: PERRL, conjunctivae normal, anicteric sclerae ENMT: external ear and nose normal, oropharynx normal Neck: trachea midline, no thyromegaly Respiratory: normal respiratory effort, lungs clear to auscultation Cardiovascular: RRR, no murmur, no edema Extremities: + edema (3+ pretibial pitting edema) Gastrointestinal (Abdomen): normal bowel sounds, soft, nontender, no hepatosplenomegaly Results & Data Vital Signs (Past 12 Hours) Vital Signs Temp Pulse Pulse Resp BP Pulse Ox O2 Del Method 11/03/22 07:35 109 H 11/03/22 07:35 Room Air 11/03/22 07:44 36.9 C 76 18 151/87 H 99 Room Air 11/03/22 03:29 36.5 C 73 20 128/72 93 Room Air 11/02/22 23:27 36.6 C 74 22 135/77 95 Room Air Laboratory Results Laboratory Tests 11/03/22 11/03/22 07:32 07:32 WBC 4.53 L Hgb 8.8 L Hct 29.2 L Plt Count 159 Sodium 145 Potassium 4.4 Chloride 110 H Carbon Dioxide 29 BUN 52 H Creatinine 2.74 H Glucose 86 Albumin 3.2 L Laboratory Tests 11/02/22 11/02/22 05:27 Unknown Urine PEP Interpret Pending Serum Immunofixation Pending Urine Immunofixation Pending Free [place]/Lambda Ratio Pending PG Care Time/CCT Total # of Minutes Spent Total Time Spent with Patient: Total time spent is greater than 50% in coordination of care (as documented) at patient's floor/unit and/or counseling patient: Coding Level of Care Code 68148 SUB INP/OBS CARE 3/50MIN Diagnoses Fluid retention R60.9 CKD (chronic kidney disease) N18.9 Chronic kidney disease stage: unspecified stage Anemia D64.9 (2) CKD (chronic kidney disease) Chronic kidney disease stage: unspecified stage Qualified Code(s): N18.9 - Chronic kidney disease, unspecified
[2022-11-03] MEDS: IRON SUCROSE 200 MG in 0.9 % SODIUM CHLORIDE 100 ML IV SCH (12:07)
[2022-11-03] MEDS ORDERED: FUROSEMIDE 40 MG/4 ML VIAL IV ONE (18:18)
[2022-11-03] MEDS: traZODone HCL 100 MG TAB PO SCH (21:54)
[2022-11-03] MEDS: ATORVASTATIN 40 MG TAB PO SCH (21:56)
[2022-11-03] MEDS: LANTUS PER UNIT CHARGE SQ SCH (21:58)
--- NOTE | 2022-11-03 23:04 | Hospitalist Progress Note ---
Date of Service November 03, 2022 Assessment & Plan (1) Diastolic congestive heart failure: Plan: acute on chronic diastolic CHF with venous stasis - ekg without acute ischemic change, hs trop normal dietary indescression, BNP is elevated consistent with CHF Bumex on hold with recent acute PATY lab work in the afternoon remained stable diuretics were held for the full day of 518 restarted Lasix 40 mg IV every morning on 519 Repeat echocardiogram 11/01/2022 to evaluate ejection fraction and valvular heart disease Follow creatinine daily, history of CKD3-4 now with PATY typically sees Dr. Kang Venous Doppler negative for DVT -will continue with IV lasix. (2) CKD (chronic kidney disease): Plan: paty with chronic With baseline CKD,3-4 Baseline creatinine appears around 2.7, has been as high as 3.4 in the recent past bun is up, Cr also, anemia is worsened will have discussion about transfusion, double protonix and heme stools Anemia now worsened consider Acute blood loss anemia with anemia of chronic disease, takes EPO appears stable we will check stool Hemoccults Repeat hemoglobin in the afternoon is 8.3 g we will restart her Eliquis therapy Onlasix 40 mg IV will give 2 doses today. (3) Atrial fibrillation: Plan: chronic and stable resumed eliquis , metoprolol succinate 25 (4) Type 2 diabetes mellitus: Plan: chronic type 2 diabetes, appears stable basal bolus CODE STATUS: Full code (5) TRUMAN (obstructive sleep apnea): Plan: CPAP nightly as needed, patient tolerates this for Plan Likely dispo in the next few days once renal function anemia and diastolic heart failure is in check Admission and Anticipated Discharge Date Admission Date: October 30, 2022 Subjective 62 yo female reports no new symptoms. Review of Systems Review of Systems: All systems reviewed & are unremarkable except as noted in HPI & below Physical Exam Physical Exam: Awake alert appropriate card exam is regular with a systolic ejection murmur heard best at the right upper sternal border lungs are clear without wheezes or crackles Lower extremities have 2+ pedal edema Results & Data Results & Data Vital Signs (Past 12 Hours) Vital Signs Temp Pulse Pulse Resp BP Pulse Ox O2 Del Method 11/03/22 19:20 36.8 C 75 22 153/72 H 95 Room Air 11/03/22 16:12 37.3 C 76 18 152/78 H 98 Room Air 11/03/22 15:47 72 11/03/22 11:29 36.9 C 78 18 156/83 H 92 Room Air PG Care Time/CCT Total # of Minutes Spent Total Time Spent with Patient: Total time spent is greater than 50% in coordination of care (as documented) at patient's floor/unit and/or counseling patient: Coding Level of Care Code 08716 SUB INP/OBS CARE 2/35MIN Diagnoses Diastolic congestive heart failure I50.30 CKD (chronic kidney disease) N18.9 Chronic kidney disease stage: unspecified stage Atrial fibrillation I48.91 Atrial fibrillation type: unspecified Type 2 diabetes mellitus E11.69; Z79.4 Diabetes mellitus complication status: with other specified complication Diabetes mellitus buttermaker continuous churn insulin use: with buttermaker continuous churn use TRUMAN (obstructive sleep apnea) G47.33 (2) CKD (chronic kidney disease) Chronic kidney disease stage: unspecified stage Qualified Code(s): N18.9 - Chronic kidney disease, unspecified (3) Atrial fibrillation Atrial fibrillation type: unspecified Qualified Code(s): I48.91 - Unspecified atrial fibrillation (4) Type 2 diabetes mellitus Diabetes mellitus complication status: with other specified complication Diabetes mellitus custodial insulin use: with custodial use Qualified Code(s): E11.69 - Type 2 diabetes mellitus with other specified complication; Z79.4 - [facility] (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
[2022-11-04] MEDS: LEVOTHYROXINE SODIUM 50 MCG TABLET PO SCH (05:30)
[2022-11-04 07:20] LABS: BUN Creatinine Ratio 18.2 (10-20); Calcium 8.8 mg/dl (8.6-10.3); Creatinine Clr Calc Pharmacy 26.6 ml/min; Est GFR (African American) 19.4 ml/min; Est GFR (Non-African American) 16.7 ml/min; Phosphorus 3.4 mg/dl (2.5-4.9)
[2022-11-04] MEDS: INSULIN ASPART PER UNIT CHARGE SC SCH ×4 (08:29→21:02)
[2022-11-04] MEDS: FENOFIBRATE NANOCRYSTALLIZED 145 MG TABLET PO SCH (08:33)
[2022-11-04] MEDS: APIXABAN 5 MG TABLET PO SCH ×2 (08:33→21:00)
[2022-11-04] MEDS: PREGABALIN 50 MG CAP PO SCH ×2 (08:33→20:58)
[2022-11-04] MEDS: METOPROLOL SUCC 25MG EXT REL TAB PO SCH (08:33)
[2022-11-04] MEDS: PANTOprazole 40 MG TAB PO SCH ×2 (08:33→21:01)
[2022-11-04] MEDS: busPIRone 15 MG TAB PO SCH ×2 (08:33→21:00)
[2022-11-04] MEDS: FUROSEMIDE 40 MG/4 ML VIAL IV SCH (08:33)
[2022-11-04] MEDS: FOLIC ACID 1 MG TAB PO SCH (08:33)
[2022-11-04] MEDS: NYSTATIN CR 15 GM TUBE EXT SCH ×2 (08:34→21:01)
[2022-11-04] MEDS: fluvoxaMINE MALEATE 50 MG TAB PO SCH ×2 (08:34→20:59)
--- NOTE | 2022-11-04 08:56 | Nephrology Progress Note ---
Date of Service November 04, 2022 Assessment & Plan (1) Fluid retention: Plan: * Attributed to kidney dysfunction, high dietary sodium intake, obesity, HFpEF and predominately RCHF associated with underlying lung disease and obesity * Dietitian met w/ patient yesterday and provided education on 1500 mg/day NaCl restricted diet * Amlodipine may also contributing to LE edema. Note that SANDRA/ARB held due to h/o PATY, relative hypotension in the past * Patient received 40 mg Furosemide IV this am. She has already diuresed 640 cc. Will change to Bumex 1 mg po daily in am (2) CKD (chronic kidney disease): Plan: * CKD stage G4/A3 (advanced impairment). Baseline Cr 2.7 w/ EGFR 18 cc/min. Renal impairment is due to DKD. Primary Questioned Documents Examiner is Dr. Kang * SANDRA/ARB held due to h/o PATY, relative hypotension * Screening for monoclonal process (SPEP/IF, SFL, and 24 hours UPIEF) - pending (3) Anemia: Plan: * 11/02/22 Iron saturation 22%, ferritin 206 * Venofer 200 mg IV x1 given 11/01/22. Will continue for 1g total infusion * Epogen 40,000 units provided 11/01/22 Admission and Anticipated Discharge Date Admission Date: October 30, 2022 Subjective Mrs. Arellano was evaluated in her hospital room this morning. She reports brisk UO in response to IV diuretic therapy. She had 4 L diuresis last 24 hours. Weight is down 4 kg. Mrs. Arellano reports that her legs remain swollen but are subjectively improved. She is tolerating IV iron without side effect Review of Systems Constitutional: no fever Eyes: no problem reported Ear, Nose, Mouth, Throat: no problem reported Respiratory: no cough and no dyspnea Cardiovascular: no chest pain Gastrointestinal: no abdominal pain, no vomiting and no diarrhea/loose stools Genitourinary: no dysuria and no hematuria Integumentary: no rash Physical Exam Constitutional: not in distress Eyes: PERRL, conjunctivae normal, anicteric sclerae ENMT: external ear and nose normal, oropharynx normal Neck: trachea midline, no thyromegaly Respiratory: normal respiratory effort, lungs clear to auscultation Cardiovascular: RRR, no murmur, no edema Extremities: + edema (2+ pretibial pitting edema) Gastrointestinal (Abdomen): normal bowel sounds, soft, nontender, no hepatosplenomegaly Results & Data Vital Signs (Past 12 Hours) Vital Signs Temp Pulse Pulse Resp BP Pulse Ox O2 Del Method 11/04/22 07:24 36.8 C 76 18 167/82 H 97 Room Air 11/04/22 03:16 36.6 C 73 22 134/72 97 Room Air 11/03/22 22:25 77 11/03/22 23:09 36.8 C 74 22 156/76 H 93 Room Air Laboratory Results Laboratory Tests 11/04/22 06:10 Sodium 144 Potassium 4.0 Chloride 108 H Carbon Dioxide 30 BUN 52 H Creatinine 2.86 H Glucose 98 Albumin 3.0 L Laboratory Tests 11/02/22 05:27 Serum Immunofixation Pending Free [place]/Lambda Ratio Pending PG Care Time/CCT Total # of Minutes Spent Total Time Spent with Patient: Total time spent is greater than 50% in coordination of care (as documented) at patient's floor/unit and/or counseling patient: Coding Level of Care Code 51260 SUB INP/OBS CARE 3/50MIN Diagnoses Fluid retention R60.9 CKD (chronic kidney disease) N18.9 Chronic kidney disease stage: unspecified stage Anemia D64.9 (2) CKD (chronic kidney disease) Chronic kidney disease stage: unspecified stage Qualified Code(s): N18.9 - Chronic kidney disease, unspecified
[2022-11-04] MEDS: IRON SUCROSE 200 MG in 0.9 % SODIUM CHLORIDE 100 ML IV SCH (09:17)
[2022-11-04] MEDS: ATORVASTATIN 40 MG TAB PO SCH (20:58)
[2022-11-04] MEDS: traZODone HCL 100 MG TAB PO SCH (20:59)
[2022-11-04] MEDS: LANTUS PER UNIT CHARGE SQ SCH (21:01)
--- NOTE | 2022-11-04 21:14 | Hospitalist Progress Note ---
Date of Service November 04, 2022 Assessment & Plan (1) Diastolic congestive heart failure: Plan: acute on chronic diastolic CHF with venous stasis - ekg without acute ischemic change, hs trop normal dietary indescression, BNP is elevated consistent with CHF Bumex on hold with recent acute PATY lab work in the afternoon remained stable diuretics were held for the full day of 518 restarted Lasix 40 mg IV every morning on 519 Repeat echocardiogram 11/01/2022 to evaluate ejection fraction and valvular heart disease Follow creatinine daily, history of CKD3-4 now with PATY typically sees Dr. Kang Venous Doppler negative for DVT -will continue with IV lasix. Plan to transition to bumez in AM> (2) CKD (chronic kidney disease): Plan: paty with chronic With baseline CKD,3-4 Baseline creatinine appears around 2.7, has been as high as 3.4 in the recent past bun is up, Cr also, anemia is worsened will have discussion about transfusion, double protonix and heme stools Anemia now worsened consider Acute blood loss anemia with anemia of chronic disease, takes EPO appears stable we will check stool Hemoccults Repeat hemoglobin in the afternoon is 8.3 g we will restart her Eliquis therapy Onlasix 40 mg IV daily. (3) Atrial fibrillation: Plan: chronic and stable resumed eliquis , metoprolol succinate 25 (4) Type 2 diabetes mellitus: Plan: chronic type 2 diabetes, appears stable basal bolus CODE STATUS: Full code (5) TRUMAN (obstructive sleep apnea): Plan: CPAP nightly as needed, patient tolerates this for Plan Likely dispo in the next few days once renal function anemia and diastolic heart failure is in check Admission and Anticipated Discharge Date Admission Date: October 30, 2022 Subjective 62 yo female reports that her legs continue to improve. Review of Systems Review of Systems: All systems reviewed & are unremarkable except as noted in HPI & below Physical Exam Physical Exam: Awake alert appropriate card exam is regular with a systolic ejection murmur heard best at the right upper sternal border lungs are clear without wheezes or crackles Lower extremities have 2+ pedal edema; decreased edema Results & Data Results & Data Vital Signs (Past 12 Hours) Vital Signs Temp Pulse Pulse Resp BP Pulse Ox O2 Del Method 11/04/22 19:36 Room Air 11/04/22 19:19 37.0 C 73 22 153/74 H 96 Room Air 11/04/22 15:50 36.9 C 72 18 157/79 H 98 Room Air 11/04/22 15:23 63 11/04/22 11:42 36.9 C 74 18 158/91 H 96 Room Air PG Care Time/CCT Total # of Minutes Spent Total Time Spent with Patient: Total time spent is greater than 50% in coordination of care (as documented) at patient's floor/unit and/or counseling patient: Coding Level of Care Code 03142 SUB INP/OBS CARE 235MIN Diagnoses Diastolic congestive heart failure I50.30 CKD (chronic kidney disease) N18.9 Chronic kidney disease stage: unspecified stage Atrial fibrillation I48.91 Atrial fibrillation type: unspecified Type 2 diabetes mellitus E11.69; Z79.4 Diabetes mellitus complication status: with other specified complication Diabetes mellitus netsuite developer insulin use: with netsuite developer use TRUMAN (obstructive sleep apnea) G47.33 (2) CKD (chronic kidney disease) Chronic kidney disease stage: unspecified stage Qualified Code(s): N18.9 - Chronic kidney disease, unspecified (3) Atrial fibrillation Atrial fibrillation type: unspecified Qualified Code(s): I48.91 - Unspecified atrial fibrillation (4) Type 2 diabetes mellitus Diabetes mellitus complication status: with other specified complication Diabetes mellitus netsuite developer insulin use: with netsuite developer use Qualified Code(s): E11.69 - Type 2 diabetes mellitus with other specified complication; Z79.4 - nursing home (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
[2022-11-05] MEDS: LEVOTHYROXINE SODIUM 50 MCG TABLET PO SCH (05:55)
[2022-11-05 06:54] LABS: Hematocrit (blood only) 26.9 % (37.0-47.0); Hemoglobin 8.4 g/dl (12.0-16.0); Mean Corpuscular Hemoglobin 25.9 pg (25.0-34.0); Mean Corpuscular Hgb Conc 31.2 g/dL (32.0-36.0); Mean Platelet Volume 11.4 fL (9.4-12.4); Nucleated RBC # (auto) 0.02 K/uL (0-0.12); Nucleated RBC % (auto) 0.4 %; Platelet Count 145 K/uL (130-400); RDW Coefficient of Variation 16.7 % (11.5-14.5); RDW Standard Deviation 49.9 fL (36.4-46.3); Red Blood Count 3.24 M/uL (4.20-5.40); White Blood Count 4.81 K/ul (4.8-10.8)
[2022-11-05 06:59] LABS: BUN Creatinine Ratio 17.2 (10-20); Calcium 8.7 mg/dl (8.6-10.3); Creatinine Clr Calc Pharmacy 25.3 ml/min; Est GFR (African American) 18.5 ml/min; Potassium 4.2 mmol/L (3.5-5.1)
[2022-11-05] MEDS: INSULIN ASPART PER UNIT CHARGE SC SCH ×4 (08:32→20:15)
[2022-11-05] MEDS: PREGABALIN 50 MG CAP PO SCH ×2 (08:33→20:25)
[2022-11-05] MEDS: FOLIC ACID 1 MG TAB PO SCH (08:33)
[2022-11-05] MEDS: PANTOprazole 40 MG TAB PO SCH ×2 (08:33→20:27)
[2022-11-05] MEDS: METOPROLOL SUCC 25MG EXT REL TAB PO SCH (08:34)
[2022-11-05] MEDS: NYSTATIN CR 15 GM TUBE EXT SCH ×2 (08:34→20:28)
[2022-11-05] MEDS: APIXABAN 5 MG TABLET PO SCH ×2 (08:34→20:26)
[2022-11-05] MEDS: FENOFIBRATE NANOCRYSTALLIZED 145 MG TABLET PO SCH (08:34)
[2022-11-05] MEDS: fluvoxaMINE MALEATE 50 MG TAB PO SCH ×2 (08:34→20:26)
[2022-11-05] MEDS: busPIRone 15 MG TAB PO SCH ×2 (08:34→20:27)
--- NOTE | 2022-11-05 08:41 | Nephrology Progress Note ---
Date of Service November 05, 2022 Assessment & Plan (1) Fluid retention: Plan: * Attributed to kidney dysfunction, high dietary sodium intake, obesity, HFpEF and predominately RCHF associated with underlying lung disease and obesity * Dietitian met w/ patient 11/03/22 and provided education on 1500 mg/day NaCl restricted diet. Reinforced need to avoid fast food restaurants and prepackaged food * Amlodipine may also contributing to LE edema. Note that SANDRA/ARB held due to h/o PATY, relative hypotension in the past * Now on Bumex 1 mg po BID * If discharge is anticipated, please have patient follow up w/ Dr. Kang within the next 7 days ([phone]) (2) CKD (chronic kidney disease): Plan: * CKD stage G4/A3 (advanced impairment). Baseline Cr 2.7 w/ EGFR 18 cc/min. Renal impairment is due to DKD. Primary Binder Folder Operator is Dr. Kang * SANDRA/ARB held due to h/o PATY, relative hypotension * Screening for monoclonal process (SPEP/IF, SFL, and 24 hours UPIEF) - pending (3) Anemia: Plan: * 11/02/22 Iron saturation 22%, ferritin 206 * Venofer started 11/01/22. Will continue for 1g total infusion * Epogen 40,000 units provided 11/01/22 Admission and Anticipated Discharge Date Admission Date: October 30, 2022 Subjective Mrs. Arellano was evaluated in her hospital room this morning. She reports brisk UO in response to IV diuretic therapy. She had 4 L diuresis last 24 hours. Weight is down and additional 3 kg overnight (117 kg). Mrs. Arellano reports that her legs are less swollen. She is tolerating IV iron without side effect Review of Systems Constitutional: no fever Eyes: no problem reported Ear, Nose, Mouth, Throat: no problem reported Respiratory: no cough and no dyspnea Cardiovascular: no chest pain Gastrointestinal: no abdominal pain, no vomiting and no diarrhea/loose stools Genitourinary: no dysuria and no hematuria Integumentary: no rash Physical Exam Constitutional: not in distress Eyes: PERRL, conjunctivae normal, anicteric sclerae ENMT: external ear and nose normal, oropharynx normal Neck: trachea midline, no thyromegaly Respiratory: normal respiratory effort, lungs clear to auscultation Cardiovascular: RRR, no murmur, no edema Extremities: + edema (1+ pretibial pitting edema) Gastrointestinal (Abdomen): normal bowel sounds, soft, nontender, no hepatosplenomegaly Results & Data Vital Signs (Past 12 Hours) Vital Signs Temp Pulse Pulse Resp BP Pulse Ox O2 Del Method 11/05/22 07:25 66 11/05/22 07:25 Room Air 11/05/22 07:34 36.8 C 75 18 167/83 H 96 Room Air 11/05/22 03:42 36.5 C 77 18 155/82 H 96 Room Air 11/05/22 00:00 11/04/22 23:22 36.6 C 73 18 153/77 H 95 Room Air O2 Del Method 11/05/22 07:25 11/05/22 07:25 11/05/22 07:34 11/05/22 03:42 11/05/22 00:00 Room Air 11/04/22 23:22 Laboratory Results Laboratory Tests 11/05/22 11/05/22 06:05 06:05 WBC 4.81 Hgb 8.4 L Hct 26.9 L Plt Count 145 Sodium 143 Potassium 4.2 Chloride 107 Carbon Dioxide 30 BUN 51 H Creatinine 2.97 H Glucose 81 Calcium 8.7 PG Care Time/CCT Total # of Minutes Spent Total Time Spent with Patient: Total time spent is greater than 50% in coordination of care (as documented) at patient's floor/unit and/or counseling patient: Coding Level of Care Code 37281 SUB INP/OBS CARE 3/50MIN Diagnoses Fluid retention R60.9 CKD (chronic kidney disease) N18.9 Chronic kidney disease stage: unspecified stage Anemia D64.9 (2) CKD (chronic kidney disease) Chronic kidney disease stage: unspecified stage Qualified Code(s): N18.9 - Chronic kidney disease, unspecified
[2022-11-05] MEDS ORDERED: BUMETANIDE 1 MG TAB PO SCH (09:00)
[2022-11-05] MEDS: IRON SUCROSE 200 MG in 0.9 % SODIUM CHLORIDE 100 ML IV SCH (09:21)
[2022-11-05] MEDS: BUMETANIDE 1 MG TAB PO SCH (17:11)
[2022-11-05] MEDS: LANTUS PER UNIT CHARGE SQ SCH (20:24)
[2022-11-05] MEDS: ATORVASTATIN 40 MG TAB PO SCH (20:25)
[2022-11-05] MEDS: traZODone HCL 100 MG TAB PO SCH (20:27)
--- NOTE | 2022-11-05 23:06 | Hospitalist Progress Note ---
Date of Service November 05, 2022 Assessment & Plan (1) Diastolic congestive heart failure: Plan: acute on chronic diastolic CHF with venous stasis - ekg without acute ischemic change, hs trop normal dietary indescression, BNP is elevated consistent with CHF Bumex on hold with recent acute PATY lab work in the afternoon remained stable diuretics were held for the full day of 518 restarted Lasix 40 mg IV every morning on 519 Repeat echocardiogram 11/01/2022 to evaluate ejection fraction and valvular heart disease Follow creatinine daily, history of CKD3-4 now with PATY typically sees Dr. Kang Venous Doppler negative for DVT -will continue with IV lasix. will trial bumex IV BID. (2) CKD (chronic kidney disease): Plan: paty with chronic With baseline CKD,3-4 Baseline creatinine appears around 2.7, has been as high as 3.4 in the recent past bun is up, Cr also, anemia is worsened will have discussion about transfusion, double protonix and heme stools Anemia now worsened consider Acute blood loss anemia with anemia of chronic disease, takes EPO appears stable we will check stool Hemoccults Repeat hemoglobin in the afternoon is 8.3 g we will restart her Eliquis therapy Onlasix 40 mg IV daily. (3) Atrial fibrillation: Plan: chronic and stable resumed eliquis , metoprolol succinate 25 (4) Type 2 diabetes mellitus: Plan: chronic type 2 diabetes, appears stable basal bolus CODE STATUS: Full code (5) TRUMAN (obstructive sleep apnea): Plan: CPAP nightly as needed, patient tolerates this for Plan Likely dispo in the next few days once renal function anemia and diastolic heart failure is in check Admission and Anticipated Discharge Date Admission Date: October 30, 2022 Subjective 62 yo female reports no new symptoms. Review of Systems Review of Systems: All systems reviewed & are unremarkable except as noted in HPI & below Physical Exam Physical Exam: Awake alert appropriate card exam is regular with a systolic ejection murmur heard best at the right upper sternal border lungs are clear without wheezes or crackles Lower extremities have 2+ pedal edema; decreased edema Results & Data Results & Data Vital Signs (Past 12 Hours) Vital Signs Temp Pulse Pulse Resp BP Pulse Ox Pulse Ox 11/05/22 19:33 36.8 C 79 24 148/79 H 97 11/05/22 20:00 11/05/22 20:00 95 11/05/22 16:46 36.3 C L 76 18 148/90 H 95 11/05/22 16:50 65 11/05/22 11:25 37 C 77 18 131/71 97 O2 Del Method O2 Del Method 11/05/22 19:33 Room Air 11/05/22 20:00 Room Air 11/05/22 20:00 Room Air 11/05/22 16:46 Room Air 11/05/22 16:50 11/05/22 11:25 Room Air PG Care Time/CCT Total # of Minutes Spent Total Time Spent with Patient: Total time spent is greater than 50% in coordination of care (as documented) at patient's floor/unit and/or counseling patient: Coding Level of Care Code 42789 SUB INP/OBS CARE 2MIN Diagnoses Diastolic congestive heart failure I50.30 CKD (chronic kidney disease) N18.9 Chronic kidney disease stage: unspecified stage Atrial fibrillation I48.91 Atrial fibrillation type: unspecified Type 2 diabetes mellitus E11.69; Z79.4 Diabetes mellitus complication status: with other specified complication Diabetes mellitus usp insulin use: with buttermaker use TRUMAN (obstructive sleep apnea) G47.33 (2) CKD (chronic kidney disease) Chronic kidney disease stage: unspecified stage Qualified Code(s): N18.9 - Chronic kidney disease, unspecified (3) Atrial fibrillation Atrial fibrillation type: unspecified Qualified Code(s): I48.91 - Unspecified atrial fibrillation (4) Type 2 diabetes mellitus Diabetes mellitus complication status: with other specified complication Diabetes mellitus usp insulin use: with usp use Qualified Code(s): E11.69 - Type 2 diabetes mellitus with other specified complication; Z79.4 - buttermaker (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
[2022-11-06] MEDS: LEVOTHYROXINE SODIUM 50 MCG TABLET PO SCH (05:54)
[2022-11-06 07:48] LABS: Hematocrit (blood only) 25.9 % (37.0-47.0); Hemoglobin 8.1 g/dl (12.0-16.0); Mean Corpuscular Hemoglobin 26.3 pg (25.0-34.0); Mean Corpuscular Hgb Conc 31.3 g/dL (32.0-36.0); Mean Corpuscular Volume 84.1 fL (80.0-100.0); Mean Platelet Volume 11.2 fL (9.4-12.4); Platelet Count 143 K/uL (130-400); RDW Coefficient of Variation 17.5 % (11.5-14.5); RDW Standard Deviation 49.9 fL (36.4-46.3); Red Blood Count 3.08 M/uL (4.20-5.40); White Blood Count 4.31 K/ul (4.8-10.8)
[2022-11-06] MEDS: INSULIN ASPART PER UNIT CHARGE SC SCH ×2 (08:15→12:09)
[2022-11-06] MEDS: IRON SUCROSE 200 MG in 0.9 % SODIUM CHLORIDE 100 ML IV SCH (08:23)
[2022-11-06] MEDS: BUMETANIDE 1 MG TAB PO SCH (08:23)
[2022-11-06] MEDS: fluvoxaMINE MALEATE 50 MG TAB PO SCH (08:23)
[2022-11-06] MEDS: busPIRone 15 MG TAB PO SCH (08:23)
[2022-11-06] MEDS: APIXABAN 5 MG TABLET PO SCH (08:23)
[2022-11-06] MEDS: PANTOprazole 40 MG TAB PO SCH (08:23)
[2022-11-06] MEDS: METOPROLOL SUCC 25MG EXT REL TAB PO SCH (08:23)
[2022-11-06] MEDS: FOLIC ACID 1 MG TAB PO SCH (08:23)
[2022-11-06] MEDS: NYSTATIN CR 15 GM TUBE EXT SCH (08:24)
[2022-11-06] MEDS: PREGABALIN 50 MG CAP PO SCH (08:24)
[2022-11-06] MEDS: FENOFIBRATE NANOCRYSTALLIZED 145 MG TABLET PO SCH (08:24)
[2022-11-06 08:29] LABS: BUN Creatinine Ratio 16.6 (10-20); Calcium 8.6 mg/dl (8.6-10.3); Creatinine Clr Calc Pharmacy 23.8 ml/min; Est GFR (African American) 17.4 ml/min; Potassium 4.1 mmol/L (3.5-5.1)
--- NOTE | 2022-11-06 08:39 | Nephrology Progress Note ---
Date of Service November 06, 2022 Assessment & Plan (1) Fluid retention: Plan: * Attributed to kidney dysfunction, high dietary sodium intake, obesity, HFpEF and predominately RCHF associated with underlying lung disease and obesity * Dietitian met w/ patient 11/03/22 and provided education on 1500 mg/day NaCl restricted diet. Reinforced need to avoid fast food restaurants and prepackaged food * Amlodipine may also contributing to LE edema. Note that SANDRA/ARB held due to h/o PATY, relative hypotension in the past * Patient is now clinically euvolemic and below her prehospital weight * Will reduce Bumex to 1 mg daily * If discharge is anticipated, please have patient follow up w/ Dr. Kang within the next 7 days ([phone]) (2) CKD (chronic kidney disease): Plan: * CKD stage G4/A3 (advanced impairment). Baseline Cr 2.7 w/ EGFR 18 cc/min. Renal impairment is due to DKD. Primary Credit Clerk is Dr. Kang * SANDRA/ARB held due to h/o PATY, relative hypotension * 11/02/22 UIEP - negative for monoclonal band, kappa/lambda ratio wnl (3) Anemia: Plan: * 11/02/22 Iron saturation 22%, ferritin 206 * Venofer started 11/01/22. Will continue for 1g total infusion * Epogen 40,000 units provided 11/01/22 Admission and Anticipated Discharge Date Admission Date: October 30, 2022 Subjective Mrs. Arellano was evaluated in her hospital room this morning. She had 3 L diuresis last 24 hours. Weight is down and additional 2 kg overnight (115 kg - prehospital weight 120 kg 09/26/22). Mrs. Arellano reports that her LE swelling is markedly improved. She is tolerating IV iron without side effect Review of Systems Constitutional: no fever Eyes: no problem reported Ear, Nose, Mouth, Throat: no problem reported Respiratory: no cough and no dyspnea Cardiovascular: no chest pain Gastrointestinal: no abdominal pain, no vomiting and no diarrhea/loose stools Genitourinary: no dysuria and no hematuria Integumentary: no rash Physical Exam Constitutional: not in distress Eyes: PERRL, conjunctivae normal, anicteric sclerae ENMT: external ear and nose normal, oropharynx normal Neck: trachea midline, no thyromegaly Respiratory: normal respiratory effort, lungs clear to auscultation Cardiovascular: RRR, no murmur, no edema Extremities: no edema Gastrointestinal (Abdomen): normal bowel sounds, soft, nontender, no hepatosplenomegaly Results & Data Vital Signs (Past 12 Hours) Vital Signs Temp Pulse Pulse Resp BP Pulse Ox O2 Del Method 11/06/22 07:28 36.6 C 75 20 138/78 96 Room Air 11/06/22 03:37 36.7 C 81 20 131/76 96 Room Air 11/06/22 00:00 11/05/22 23:00 71 11/05/22 23:09 36.7 C 75 16 117/70 96 Room Air O2 Del Method 11/06/22 07:28 11/06/22 03:37 11/06/22 00:00 Room Air 11/05/22 23:00 11/05/22 23:09 Laboratory Results Laboratory Tests 11/06/22 11/06/22 06:39 06:39 WBC 4.31 L Hgb 8.1 L Hct 25.9 L Plt Count 143 Sodium 143 Potassium 4.1 Chloride 106 Carbon Dioxide 31 BUN 52 H Creatinine 3.13 H Glucose 81 Calcium 8.6 Laboratory Tests 11/02/22 05:27 Free [place]ber[place]/Lambda Ratio 1.42 11/02/22 UIEP - negative for monoclonal band PG Care Time/CCT Total # of Minutes Spent Total Time Spent with Patient: Total time spent is greater than 50% in coordination of care (as documented) at patient's floor/unit and/or counseling patient: Coding Level of Care Code 51267 SUB INP/OBS CARE 3/50MIN Diagnoses Fluid retention R60.9 CKD (chronic kidney disease) N18.9 Chronic kidney disease stage: unspecified stage Anemia D64.9 (2) CKD (chronic kidney disease) Chronic kidney disease stage: unspecified stage Qualified Code(s): N18.9 - Chronic kidney disease, unspecified
[2022-11-06 09:58] LABS: Abnormal Protein Band 1 DNR mg/24 h (NONE DETECTED); Abnormal Protein Band 2 DNR mg/24 h (NONE DETECTED); Abnormal Protein Band 3 DNR mg/24 h (NONE DETECTED); Creatinine, 24 hr Urine 0.99 g/24 h (0.50-2.15); Protein, Urine 24 Hour 1363 mg/24 h (<150); Ur Protein/Creatinine Rat mg/g 1382 mg/g creat (<150); Urine Protein/Creatinine Ratio 1.382 (<0.150)
[2022-11-06 10:13] LABS: Albumin 2.6 g/dL (3.8-4.8); Alpha 1 Globulin 0.4 g/dL (0.2-0.3); Alpha 2 Globulin 0.5 g/dL (0.5-0.9); Beta-1-Globulin 0.4 g/dL (0.4-0.6); Beta-2-Globulin 0.5 g/dL (0.2-0.5); Free Kappa 85.8 mg/L (3.3-19.4); Free Kappa/Lambda Ratio 1.42 (0.26-1.65); Free Lambda 60.6 mg/L (5.7-26.3); Gamma Globulin 0.9 g/dL (0.8-1.7); Monoclonal Protein Band 1 DNR g/dL (NONE DETECTED); Monoclonal Protein Band 2 DNR g/dL (NONE DETECTED); Monoclonal Protein Band 3 DNR g/dL (NONE DETECTED); Total Protein 5.3 g/dL (6.1-8.1)
--- NOTE | 2022-11-06 13:32 | Discharge Summary ---
Date of Service November 06, 2022 Admission HPI Per Admitting Provider 61yo F HX CKD, CHF, on eliquis, outpatient bumex being increased due to weight gain without significant benefit. Patient recommended for hospital evaluation and management of fluid overload without hypoxia Pending reports that she has had 20 pound weight gain and severe pitting edema through her legs. Has been taking increased Bumex dose for 10 days with minimal benefit. She saw her PCP on the sixth of this month and was not short of breath at that time, had a trip to [place] that she did not want to delay but on getting back this past week has continually worsened with bilateral leg swelling. Thighs feel tight from fluid. She is now short of breath on exertion and easily short of breath. No chest pressure or chest pain. She does not lay flat and generally sits or sleeps in a recliner so is not sure if she has orthopnea. No fever, chills, sweats, no cough, no productive sputum/cough. No belly pain. No nausea/vomiting/diarrhea. She does not feel her A-fib so does not know when she is in or out of it. She does endorse that she drinks soup, has at least 1 can of [employer] Irish onion soup per day as a meal. Discussed with patient that this is approximately 2000 mg of sodium per day which is already the daily limit. Medical History: Reviewed Medications: Reviewed Surgical History: Reviewed Family history: Reviewed Allergies: Reviewed Social History: Reviewed, no tobacco/alcohol Code Status: Full Discharge Data Allergies Allergy/AdvReac Type Severity Reaction Status Date / Time promethazine Allergy Unknown BROKEN Verified 10/30/22 13:22 CAPILLARIES FACE Iodinated Contrast Media AdvReac Unknown Unknown Verified 10/30/22 13:22 [Iodinated Contrast- Oral and IV Dye] Consultations 10/30/22 16:51 ED Decision to Admit Stat 11/01/22 15:52 Consult Nephrology Routine Ordered Studies 10/30/22 15:41 US venous doppler LE Stat Hospital Course (1) Diastolic congestive heart failure: acute on chronic diastolic CHF with venous stasis - ekg without acute ischemic change, hs trop normal dietary indescression, BNP is elevated consistent with CHF Bumex on hold with recent acute PATY lab work in the afternoon remained stable diuretics were held for the full day of 518 restarted Lasix 40 mg IV every morning on 519 Repeat echocardiogram 11/01/2022 to evaluate ejection fraction and valvular heart disease Follow creatinine daily, history of CKD3-4 now with PATY typically sees Dr. Kang Venous Doppler negative for DVT -will continue with IV lasix. will trial bumex IV BID. (2) CKD (chronic kidney disease): paty with chronic With baseline CKD,3-4 Baseline creatinine appears around 2.7, has been as high as 3.4 in the recent past bun is up, Cr also, anemia is worsened will have discussion about transfusion, double protonix and heme stools Anemia now worsened consider Acute blood loss anemia with anemia of chronic disease, takes EPO appears stable we will check stool Hemoccults Repeat hemoglobin in the afternoon is 8.3 g we will restart her Eliquis therapy Onlasix 40 mg IV daily. (3) Atrial fibrillation: chronic and stable resumed eliquis , metoprolol succinate 25 (4) Type 2 diabetes mellitus: chronic type 2 diabetes, appears stable basal bolus CODE STATUS: Full code (5) TRUMAN (obstructive sleep apnea): CPAP nightly as needed, patient tolerates this for Plan Likely dispo in the next few days once renal function anemia and diastolic heart failure is in check Discharge Plan Discharge Items Patient Disposition: Home - Self-Care Reason For Visit: FLUID OVERLOAD, CHF + VENOUS STASIS Discharge Diagnosis: fluid overload Activity: Resume your previous activity Non-emergency contact: Primary Care Provider Call non-emergency contact if: you have any medication questions Follow-up/Referrals: William Lewis MD [Primary Care Provider] - Antoinette Marina PASantiagoC [Physician Acid Cutter] - 11/13/22 10:30 am (Congestive Heart Failure Program Appointment Information Early follow up is essential to managing your heart failure. An appointment has been scheduled for you with the [facility] Program within 7 days of discharge. Anticipate this visit to be 30-60 minutes long. Please expect a desk pens assembler phone call from one of our nurses approximately 48 hours from discharge. They will also be placing an order for lab work to be completed 1-2 days prior to your heart failure follow up appointment. Please be sure to have this done so we can go over the results when you come in. Office Location The cardiology office building is located in front of the hospital at [address] [facility]. Bring the following with you to your follow-up doctor appointments: Please bring your daily weight log any discharge paperwork all of your medication bottles with you to this visit. ) Diet: Low Sodium (2gm) Addtl Attending Provider Instructions: You have been hospitalized for an acute medical problem. During your stay at [facility], we have made an effort to correct the problem that brought you to the hospital while keeping you as comfortable as possible. Medications were used to bring your condition under control and your discharge instructions will include directions for any medications you should take after leaving the hospital. Please make sure you see your Primary Care Provider as part of your follow up plan. Pending Studies at Discharge: No Stand-Alone Forms: My [facility], Smoking Cessation Medications and DC Order Prescriptions: New bumetanide 1 mg Tablet 1 mg PO DAILY Qty: 30 0RF Continued (DME) lancets [OneTouch UltraSoft Lancets] Misc See Rx Instructions .ROUTE .MEDSUPPLY Qty: 400 3RF Rx Instructions: test blood sugar 4 x daily (DME) insulin syringe-needle U-100 [Easy Comfort Insulin Syringe] 0.5 mL 31 gauge x 5/16" syringe See Rx Instructions .ROUTE .MEDSUPPLY Qty: 400 3RF Rx Instructions: Use four times a day with insulin injection atorvastatin 80 mg tablet 80 mg PO HS Qty: 90 3RF fenofibrate 160 mg tablet 160 mg PO QAM Qty: 90 3RF folic acid 1 mg tablet 1 mg PO QAM Qty: 90 3RF Eliquis 5 mg tablet 5 mg PO BID Qty: 180 3RF (DME) blood sugar diagnostic Strip See Dose Instructions .ROUTE .MEDSUPPLY Qty: 300 3RF Dose Instruction: As directed Rx Instructions: test blood sugar 3 x daily cholecalciferol (vitamin D3) 125 mcg (5,000 unit) capsule 125 mcg PO DAILY pregabalin [Lyrica] 50 mg capsule 50 mg PO BID Qty: 60 4RF fluvoxamine 100 mg capsule,extended release 24hr 150 mg PO BID ondansetron 4 mg tablet,disintegrating 4 mg PO Q8H PRN (Reason: nausea and vomiting) Qty: 30 0RF trazodone 100 mg tablet 150 mg PO HS insulin lispro 100 unit/mL solution 3 unit SQ TIDM amlodipine [Norvasc] 10 mg tablet 10 mg PO DAILY Qty: 90 1RF metoprolol succinate 25 mg tablet extended release 24 hr 25 mg PO DAILY Qty: 90 3RF omega-3 fatty acids 1,000 mg capsule 1,000 mg PO DAILY multivitamin [Daily Multi-Vitamin] Tablet 1 tab PO DAILY buspirone 15 mg tablet 15 mg PO BID Retacrit 40,000 unit/mL solution 40,000 unit subcut MONTHLY 15 Days Qty: 15 0RF pantoprazole 40 mg tablet,delayed release (DR/EC) 40 mg PO DAILY Qty: 90 3RF cyanocobalamin (vitamin B-12) 2,500 mcg tablet 2,500 mcg PO ONCE Rx Instructions: M and TH only zinc gluconate 100 mg Tablet 100 mg PO HS lorazepam [Ativan] 1 mg tablet 1 mg PO BID PRN (Reason: anxiety) baclofen 5 mg tablet 5 mg PO TID PRN (Reason: Muscle Spasm) levothyroxine 50 mcg tablet 50 mcg PO DAILYBB Rx Instructions: take with 8 oz of water amoxicillin 500 mg tablet 2,000 mg PO ONCE PRN (Reason: Prophylaxis) Rx Instructions: 4 tabs 1 hour prior to procedure acetaminophen 325 mg Tablet 650 mg PO Q4H PRN (Reason: fever) Qty: 14 0RF Changed ferrous sulfate 325 mg (65 mg iron) tablet,delayed release (DR/EC) 325 mg PO MOWEFR Qty: 30 5RF Discontinued furosemide 40 mg tablet 40 mg PO DAILY Qty: 90 3RF Retacrit 10,000 unit/mL solution 10,000 unit subcut ONCE Qty: 1 0RF Discharge Orders: Discharge Order (Routine); Ordered 11/06/22 Ordered By: Tushar Collier Admission Data Admit Date/Time: 10/30/22 18:28 Attending Provider: Tushar Collier Admit Provider: Geraldo Moeller Primary Care Provider: William Lewis V. Other Providers: Geraldo Moeller ; Sherrie Kang Coding Diagnoses Diastolic congestive heart failure I50.30 CKD (chronic kidney disease) N18.9 Chronic kidney disease stage: unspecified stage Atrial fibrillation I48.91 Atrial fibrillation type: unspecified Type 2 diabetes mellitus E11.69; Z79.4 Diabetes mellitus watermaster insulin use: with long-term use Diabetes mellitus complication status: with other specified complication TRUMAN (obstructive sleep apnea) G47.33
[2022-11-07] MEDS ORDERED: BUMETANIDE 1 MG TAB PO SCH (09:00)
== END 2022-11-06 15:49 | disposition home or self-care (01) | DRG 291 ==
LOC: ED 14:17 → SUATTDRO 18:28 → 2S 18:28

== ENCOUNTER 2023-04-08 02:52 | Inpatient (IN) ==
[2023-04-08] MEDS ORDERED: SODIUM CHLORIDE 0.9% 1,000 ML IV SCH (03:15)
[2023-04-08 03:28] LABS: Basophils # (auto) 0.05 K/uL (0.00-0.20); Basophils % (auto) 0.7 %; Eosinophils # (auto) 0.06 K/uL (0.00-0.50); Eosinophils % (auto) 0.9 %; Hematocrit (blood only) 40.8 % (37.0-47.0); Hemoglobin 12.7 g/dl (12.0-16.0); Immature Granulocytes # (auto) 0.13 K/uL (0.01-0.20); Immature Granulocytes % (auto) 1.9 %; Lymphocytes % (auto) 23.7 %; Mean Corpuscular Hemoglobin 26.5 pg (25.0-34.0); Mean Corpuscular Hgb Conc 31.1 g/dL (32.0-36.0); Mean Platelet Volume 12.8 fL (9.4-12.4); Monocytes # (auto) 0.37 K/uL (0.11-0.59); Monocytes % (auto) 5.5 %; Neutrophils # (auto) 4.53 K/uL (1.40-6.50); Neutrophils % (auto) 67.3 %; Platelet Count 133 K/uL (130-400); RDW Coefficient of Variation 14.6 % (11.5-14.5); RDW Standard Deviation 45.1 fL (36.4-46.3); White Blood Count 6.74 K/ul (4.8-10.8)
[2023-04-08] MEDS: MoRPHine SULFATE 4 MG/ML 1 ML CARP\\VIAL IV PRN ×8 (03:28→20:04)
[2023-04-08 03:45] LABS: Albumin Globulin Ratio 1.3 (0.9-2); Albumin Level 3.9 gm/dl (3.4-5.0); BUN Creatinine Ratio 21.9 (10-20); Bilirubin,Total 1.1 mg/dl (0.2-1.0); Calcium 9.6 mg/dl (8.6-10.3); Creatinine Clr Calc Pharmacy 24.2 ml/min; Est GFR (African American) 17.8 ml/min; Est GFR (Non-African American) 15.4 ml/min; Globulin 3.1 gm/dl (2.5-4.0); Potassium 4.3 mmol/L (3.5-5.1)
[2023-04-08 03:57] LABS: Appearance Urine Clear (Clear); Bacteria Urine Automated Negative (Negative); Bilirubin Urine Negative (Negative); Blood Urine Trace (Negative); Color Urine Yellow; Glucose Urine UA 2+ (Negative); Ketones Urine Negative (Negative); Leukocyte Esterase Urine Negative (Negative); Nitrite Urine Negative (Negative); Protein Urine 2+ (Negative); RBC Urine Automated 0-4 /hpf (0-4); Specific Gravity Urine 1.011 (1.000-1.030); Urobilinogen Urine Negative (Negative); WBC Urine Automated 0 /hpf (0-5); pH Urine 5.5 (4.5-7.5)
[2023-04-08 04:11] LABS: Partial Thromboplastin Ratio 0.9; Partial Thromboplastin Time 24.4 Seconds (21.0-31.0); Prothrombin Time 11.3 Seconds (9.0-12.0)
--- NOTE | 2023-04-08 06:32 | CT Scan Report ---
Exam(s): CT LEFT HIP Without Contrast EXAM: CT Left Lower Extremity Without Intravenous Contrast, Hip CLINICAL HISTORY: Reason for exam: fall, pain. TECHNIQUE: Axial computed tomography images of the left hip without intravenous contrast. Automated exposure control was utilized for the study. A dose lowering technique was utilized adhering to the principles of ALARA. COMPARISON: CT left hip performed 06/07/23 FINDINGS: Bones/joints: Acute, displaced transcervical fracture of the left femoral neck. Femoral diaphysis is displaced approximately 1.2 cm superiorly. Healing fracture of the greater trochanter. Femoral head remains within the acetabulum. Soft tissues: Prominent soft tissue inflammatory change surrounding the left hip and ill-defined suspected hematoma in the subcutaneous soft tissues of the left hip. Vasculature: Prominent atherosclerosis. IMPRESSION: Acute, displaced transcervical fracture of the left femoral neck. Femoral diaphysis is displaced approximately 1.2 cm superiorly. Communications: Call Doctor Trauma Electronically signed by: Loc Mena M.D. 04/08/23 06:31 AM
--- NOTE | 2023-04-08 06:35 | CT Scan Report ---
Exam(s): CT HEAD Without Contrast EXAM: CT Head Without Intravenous Contrast CLINICAL HISTORY: Reason for exam: Fall, head injury. TECHNIQUE: Axial computed tomography images of the head/brain without intravenous contrast. Automated exposure control was utilized for the study. A dose lowering technique was utilized adhering to the principles of ALARA. COMPARISON: CT head performed 02/28/21 FINDINGS: Artifacts: Exam mildly motion degraded. Within this constraint: Brain: Unremarkable. No hemorrhage. No significant white matter disease. No edema. Ventricles: Unremarkable. No ventriculomegaly. Bones/joints: Unremarkable. No acute fracture. Soft tissues: Unremarkable. Sinuses: Unremarkable as visualized. No acute sinusitis. Mastoid air cells: Unremarkable as visualized. No mastoid effusion. IMPRESSION: Exam mildly motion degraded. Within this constraint: No acute intracranial pathology. Electronically signed by: Loc Mena M.D. 04/08/23 06:34 AM
--- NOTE | 2023-04-08 06:55 | Emergency Department Note ---
History of Present Illness General Chief complaint: Hip Pain Stated complaint: Fall, Hip Pain Time Seen by Provider: 04/08/23 02:55 History of Present Illness Maximum Pain Intensity: 9 This is a 62-year-old female presenting to the emergency department for evaluation of left hip pain. Patient got up to use the bathroom tonight, when she tripped over a chair. Patient has fairly complicated past medical history including atrial fibrillation, long-term use of anticoagulants, diabetes, gastric bypass, diabetic neuropathy, and chronic kidney disease. She believes that she did strike her head in the fall. She did not lose consciousness. No chest pain, chest tightness, or shortness of breath before or after the event. Patient arrives to the ER via EMS and rates her pain a 10. She has not had anything for pain control. She does have a history of old fracture to this hip. She is currently following with Dr. Cruz and Dr Martínez of [facility] orthopedics for a right hamstring tear. Home Medications Medication Instructions Recorded Confirmed Type zinc gluconate 100 mg tablet 100 mg PO HS 07/23/18 04/08/23 History lorazepam 1 mg tablet (Ativan) 1 mg PO BID PRN anxiety 03/24/19 04/08/23 History buspirone 15 mg tablet 15 mg PO BID 11/28/20 04/08/23 History multivitamin (Daily Multi-Vitamin 1 tab PO QAM 04/04/21 04/08/23 History tablet) lancets (OneTouch UltraSoft #400 ea 04/12/21 04/04/23 Rx Lancets) omega-3 fatty acids 1,000 mg 1,000 mg PO QAM 08/21/21 04/08/23 History capsule acetaminophen 325 mg tablet 650 mg PO Q4H PRN fever #14 tabs 06/13/22 04/08/23 Rx trazodone 100 mg tablet 150 mg PO HS 07/09/22 04/08/23 History cyanocobalamin (vitamin B-12) 2,500 mcg PO 2XWK 10/08/22 04/08/23 History 2,500 mcg tablet amoxicillin 500 mg tablet 2,000 mg PO ONCE PRN Prophylaxis 10/30/22 04/08/23 History baclofen 5 mg tablet 5 mg PO TID PRN Muscle Spasm 10/30/22 04/08/23 History blood sugar diagnostic #300 ea 12/10/22 04/04/23 Rx Elderberry 250 mg PO QAM 12/20/22 04/08/23 History L.acidophil-L.casei-B.bifid-B.longum-FOS 2 cap PO QAM 12/20/22 04/08/23 History 2 billion cell-50 mg capsule (Probiotic Blend) amlodipine 10 mg tablet (Norvasc) 5 mg PO QAM 12/20/22 04/08/23 History ascorbic acid (vitamin C) 500 mg 1,000 mg PO QAM 12/20/22 04/08/23 History chewable tablet (Vitamin C) biotin 500 mcg capsule 1,000 mcg PO QAM 12/20/22 04/08/23 History bumetanide 2 mg tablet 2 mg PO QAM 12/20/22 04/08/23 History ergocalciferol (vitamin D2) 1,250 1,250 mcg PO WK 12/20/22 04/08/23 History mcg (50,000 unit) capsule (Vitamin D2) polysaccharide iron complex 150 mg 150 mg PO HS 12/20/22 04/08/23 History iron capsule (Ferrex) ondansetron 4 mg disintegrating 4 mg PO Q8H PRN nausea and 12/21/22 04/08/23 Rx tablet vomiting #14 tabs apixaban 5 mg tablet (Eliquis) 5 mg PO BID #180 tabs 12/24/22 04/08/23 Rx atorvastatin 80 mg tablet 80 mg PO HS #90 tabs 12/24/22 04/08/23 Rx metoprolol succinate 25 mg 25 mg PO DAILY 12/24/22 04/08/23 History tablet,extended release 24 hr hydrocodone 5 mg-acetaminophen 325 1 tab PO Q8H PRN pain #15 tabs 01/14/23 04/08/23 Rx mg tablet epoetin fernando-epbx 40,000 unit/mL 40,000 unit subcut UD 15 days #15 01/15/23 04/08/23 Rx injection solution (Retacrit) mL fenofibrate 160 mg tablet 160 mg PO QAM #90 tabs 01/23/23 04/08/23 Rx levothyroxine 50 mcg tablet 50 mcg PO DAILYBB #90 tabs 01/23/23 04/08/23 Rx pantoprazole 40 mg tablet,delayed 40 mg PO HS #90 tabs 01/23/23 04/08/23 Rx release nystatin 100,000 unit/gram topical 1 applic topical BID #60 grams 01/28/23 04/08/23 Rx powder insulin lispro 100 unit/mL See Rx Instructions subcut TIDM 02/05/23 04/08/23 Rx subcutaneous solution #10 mL insulin syringe-needle U-100 0.5 #400 ea 02/05/23 04/04/23 Rx mL 31 gauge x 5/16" (Easy Comfort Insulin Syringe) Lantus U-100 Insulin 100 unit/mL See Rx Instructions subcut QPM #10 02/06/23 04/08/23 Rx subcutaneous solution (insulin mL glargine) folic acid 1 mg tablet 1 mg PO QAM #90 tabs 02/22/23 04/08/23 Rx fluvoxamine 100 mg tablet 150 mg PO BID 04/08/23 04/08/23 History prednisone 10 mg tablet See Rx Instructions .Route .COMPLEX 04/08/23 04/08/23 History pregabalin 50 mg capsule (Lyrica) 50 mg PO BID 04/08/23 04/08/23 History Allergies Allergy/AdvReac Type Severity Reaction Status Date / Time promethazine Allergy Intermediate BROKEN Verified 04/08/23 08:17 CAPILLARIES FACE Iodinated Contrast Media Allergy Unknown Unknown Verified 04/08/23 08:17 [Iodinated Contrast- Oral and IV Dye] Past Med/Surg History Medical History Acute renal failure (05/23/14) 2013. Kidneys recovered to around CKD III, then function worsened around 04/2020. Anemia due to chronic kidney disease Anxiety and depression Arthralgia of multiple sites Atrial fibrillation and flutter Atrial fibrillation, new onset dx August 2020> cardioversions x2. on eliquis > follows Dr. Fontaine AV fistula September 07, 2020 > right wrist > not on dialysis at present Cardiac murmur Mild TR noted on 2019 echo. Chronic kidney disease, stage 4 (severe) Chronic low back pain Chronic rhinitis CKD (chronic kidney disease) CKD (chronic kidney disease) Claustrophobia Closed fracture of greater trochanter of left femur (06/07/22) 05/2022--currently in PT, no surgery Diabetes IDDM Diabetic nephropathy Diabetic peripheral neuropathy Diabetic retinopathy, nonproliferative Diastolic congestive heart failure Euvolemic on exam at [facility] 09/02/20. follows with Dr. 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 Per [facility] pulm 12/2019, "fairly stable from a pulmonary perspective. She is short of breath with any exertion, however a large part of this is likely related to obesity. Pulmonary functions done 1 year ago showed only a mild restrictive pattern. Diffusion was slightly decreased to 66%. One year ago she did have a normal arterial blood gas with no evidence of CO2 retention." Using PRN 3L, mostly using with exertion, not using every day. Morbid obesity BMI 40.1 Nasal septal deviation Nocturnal hypoxia 2-3L N/C - during night Nontoxic multinodular goiter Obesity hypoventilation syndrome On home oxygen therapy 2L n/c prn sob TRUMAN (obstructive sleep apnea) PRESCRIBED BIPAP-CAN'T TOLERATE-CLAUSTROPHOBIC PAF (paroxysmal atrial fibrillation) Pneumonia hx of, not recently Right sided sciatica Syncope Trochanteric fracture of left femur Vitamin D deficiency Surgical History H/O section x1 History of arthroscopy x2 left shoulder History of bilateral cataract extraction History of cardioversion x2 History of colonoscopy History of dermoid cyst excision History of esophagogastroduodenoscopy (EGD) History of mandibular surgery FULL ROM History of total shoulder replacement LEFT 07/19 2015 fracture Hx of cholecystectomy S/P tooth extraction Status post gastric bypass for obesity 09/14/2020- Dr. Ash- [facility] Family History Daughter Multiple allergies Bipolar disorder Aunt Breast cancer Mother Diabetes Heart disease Hyperthyroidism Hypertension Father Gastric cancer Hearing loss Myocardial infarction Grandfather Heart disease Family/Other Osteoporosis Lung cancer Hypertension Stroke Brother Hypertension Grandmother Ovarian cancer Sister Diabetes Migraine Other No family history of adverse response to anesthesia Denies family history of Prostate cancer Colorectal cancer Uterine cancer Social History Smoking Status: Never smoker Second Hand Exposure: No; Do You Dip or Chew Tobacco: No; Hx Alcohol Use: No Hx Substance Use: No Preferred Language: Italian Communication Ability: Effective Visual Impairment: No Limitations 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 Required: No Beliefs That Will Affect Care: None marital status: Current Living Situation: Spouse Current Living Situation Comment: Home w/ current occupational status: employed and unemployed Other Information That Helps Us Care for You: No Feels Safe at Home: Yes Safety Concerns: Feels Safe At This Time Childhood Exposure to Second-Hand Smoke: Yes Dental Care, Regularly: Yes Physical Activity Frequency: Does not Exercise Seatbelt Use: always Sunscreen Use: Yes Assistive Devices: Glasses Review of Systems A total of 10 systems reviewed and were otherwise negative Physical Exam Vital Signs Vital Signs - 24 hr 04/08/23 03:13 04/08/23 03:13 04/08/23 03:00 Temperature 36.4 C L 36.4 C L Temperature Source Oral Oral Pulse Rate 60 77 Pulse Rate [Apical] 60 Pulse Rate from SpO2 Sensor Respiratory Rate 18 18 19 Respiratory Depth Normal Blood Pressure 168/105 H 170/97 H Blood Pressure [Left Arm] 168/105 H Blood Pressure Mean 126 121 Blood Pressure Mean [Left Arm] 126 Pulse Oximetry 98 98 95 Oxygen Delivery Method Room Air Room Air Sepsis Recent Fever Within 48 Hours No Sepsis New/Unexplained Change in Mental Status No Sepsis Action Taken by Nursing No Action Required 04/08/23 03:30 04/08/23 04:30 04/08/23 05:15 Temperature Temperature Source Pulse Rate 76 77 78 Pulse Rate [Apical] Pulse Rate from SpO2 Sensor Respiratory Rate 18 16 Respiratory Depth Blood Pressure 159/95 H 168/98 H Blood Pressure [Left Arm] Blood Pressure Mean 116 121 Blood Pressure Mean [Left Arm] Pulse Oximetry 94 Oxygen Delivery Method Sepsis Recent Fever Within 48 Hours Sepsis New/Unexplained Change in Mental Status Sepsis Action Taken by Nursing 04/08/23 05:00 04/08/23 05:30 04/08/23 06:00 Temperature Temperature Source Pulse Rate 78 79 79 Pulse Rate [Apical] Pulse Rate from SpO2 Sensor Respiratory Rate 15 13 13 Respiratory Depth Blood Pressure 151/84 H 136/81 148/87 H Blood Pressure [Left Arm] Blood Pressure Mean 106 99 107 Blood Pressure Mean [Left Arm] Pulse Oximetry 94 92 95 Oxygen Delivery Method Sepsis Recent Fever Within 48 Hours Sepsis New/Unexplained Change in Mental Status Sepsis Action Taken by Nursing 04/08/23 06:30 04/08/23 07:00 04/08/23 07:00 Temperature Temperature Source Pulse Rate 79 81 Pulse Rate [Apical] Pulse Rate from SpO2 Sensor 97 H Respiratory Rate 12 17 Respiratory Depth Blood Pressure 147/88 H 156/93 H Blood Pressure [Left Arm] Blood Pressure Mean 107 127 Blood Pressure Mean [Left Arm] Pulse Oximetry 96 62 L Oxygen Delivery Method Sepsis Recent Fever Within 48 Hours Sepsis New/Unexplained Change in Mental Status Sepsis Action Taken by Nursing 04/08/23 07:30 04/08/23 07:30 Temperature Temperature Source Pulse Rate 81 Pulse Rate [Apical] Pulse Rate from SpO2 Sensor 81 Respiratory Rate 10 L Respiratory Depth Blood Pressure 153/91 H Blood Pressure [Left Arm] Blood Pressure Mean 111 Blood Pressure Mean [Left Arm] Pulse Oximetry 94 Oxygen Delivery Method Sepsis Recent Fever Within 48 Hours Sepsis New/Unexplained Change in Mental Status Sepsis Action Taken by Nursing VITALS: Vitals are noted on the nurse's note and reviewed by myself. Vital signs stable. GENERAL: Well-developed, well-nourished, white female, who is pleasant in no acute distress. HEAD: Normocephalic atraumatic. NECK: Supple without nuchal rigidity. No lymphadenopathy. No thyromegaly. Cervical spine is nontender. HEART: Regular rate and rhythm with notable systolic murmur. LUNGS: Clear to auscultation bilaterally without wheezes, rales or rhonchi. No retractions or accessory muscle use. ABDOMEN: Positive normal bowel sounds x 4. Soft, nontender, without masses or organomegaly. No guarding or rebound tenderness. MUSCULOSKELETAL: No muscle atrophy, erythema, or edema noted. Tenderness noted primarily along the medial aspect of the left hip. No significant shortening identified. Neurovascular status is intact distally. NEURO: Patient was alert and oriented to person place and time. CN II through XII grossly intact. Course Administered Medications Atorvastatin Calcium (Atorvastatin 40 Mg Tab) 80 mg PO HS JOHNATHON Stop: 05/08/23 20:59 Last Admin: 04/08/23 20:50 Dose: 80 mg Documented By: ARIEL Buspirone HCl (Buspirone 15 Mg Tab) 15 mg PO BID JOHNATHON Stop: 05/08/23 08:59 Last Admin: 04/08/23 20:50 Dose: 15 mg Documented By: Admin: 04/08/23 11:13 Dose: 15 mg Documented By: KINGSTON Fluvoxamine Maleate (Fluvoxamine Maleate 50 Mg Tab) 150 mg PO BID JOHNATHON Stop: 05/08/23 10:59 Last Admin: 04/08/23 20:50 Dose: 150 mg Documented By: Admin: 04/08/23 11:17 Dose: 150 mg Documented By: KINGSTON Insulin Aspart (Insulin Aspart Per Unit Charge) 0 units SC ACHS JOHNATHON Stop: 05/08/23 09:59 Last Admin: 04/08/23 21:01 Dose: Not Given Documented By: ARIEL Co-signed By: GENNY Admin: 04/08/23 18:29 Dose: 7 units Documented By: SAW Co-signed By: KELLY Admin: 04/08/23 14:24 Dose: Not Given Documented By: Admin: 04/08/23 14:23 Dose: 3 units Documented By: KINGSTON Co-signed By: SHAMA Metoprolol Succinate (Metoprolol Succ 25mg Ext Rel Tab) 25 mg PO DAILY JOHNATHON Stop: 05/08/23 10:59 Last Admin: 04/08/23 11:17 Dose: 25 mg Documented By: KINGSTON Morphine Sulfate (Morphine Sulfate 4 Mg/Ml 1 Ml Carp\\Vial) 4 mg IV Q1H PRN PRN Reason: Severe Pain (Rating 7,8,9,10) Stop: 04/22/23 03:05 Last Admin: 04/08/23 20:04 Dose: 4 mg Documented By: Admin: 04/08/23 18:34 Dose: 4 mg Documented By: Admin: 04/08/23 16:41 Dose: 4 mg Documented By: Admin: 04/08/23 10:55 Dose: 4 mg Documented By: Admin: 04/08/23 08:55 Dose: 4 mg Documented By: Admin: 04/08/23 06:51 Dose: 4 mg Documented By: Admin: 04/08/23 05:06 Dose: 4 mg Documented By: Admin: 04/08/23 03:28 Dose: 4 mg Documented By: YASEMIN Pantoprazole Sodium (Pantoprazole 40 Mg Tab) 40 mg PO HS JOHNATHON Stop: 05/08/23 20:59 Last Admin: 04/08/23 20:51 Dose: 40 mg Documented By: ARIEL Pregabalin (Pregabalin 50 Mg Cap) 50 mg PO BID JOHNATHON Stop: 05/08/23 10:59 Last Admin: 04/08/23 20:05 Dose: 50 mg Documented By: Admin: 04/08/23 11:17 Dose: 50 mg Documented By: KV Trazodone HCl (Trazodone Hcl 50 Mg Tab) 150 mg PO HS JOHNATHON Stop: 05/08/23 20:59 Last Admin: 04/08/23 20:50 Dose: 150 mg Documented By: ARIEL Discontinued Medications Sodium Chloride (Nss) 1,000 mls @ 75 mls/hr IV .[id number] JOHNATHON Stop: 04/08/23 16:34 Last Infusion: 04/08/23 08:56 Dose: 0 mls/hr Documented By: Admin: 04/08/23 04:09 Dose: 75 mls/hr Documented By: YASEMIN Lactated Ringer's (Lr) 1,000 mls @ 80 mls/hr IV .[id number] JOHNATHON Stop: 04/08/23 20:29 Last Infusion: 04/08/23 20:05 Dose: 0 mls/hr Documented By: Admin: 04/08/23 08:56 Dose: 80 mls/hr Documented By: KINGSTON Medical Decision Making Differential Diagnosis Differential diagnosis includes, but is not limited to: Sprain, strain, fracture, dislocation, subluxation, contusion, and others Laboratory Data 04/08/23 03:05 04/08/23 03:09 Lab Results 04/08/23 04/08/23 04/08/23 Range/Units 03:05 03:05 03:09 WBC 6.74 (4.8-10.8) K/ul RBC 4.80 (4.20-5.40) M/uL Hgb 12.7 (12.0-16.0) g/dl Hct 40.8 (37.0-47.0) % MCV 85.0 (80.0-100.0) fL MCH 26.5 (25.0-34.0) pg MCHC 31.1 L (32.0-36.0) g/dL RDW Std Deviation 45.1 (36.4-46.3) fL RDW Coeff of Chantal 14.6 H (11.5-14.5) % Plt Count 133 (130-400) K/uL MPV 12.8 H (9.4-12.4) fL Immature Gran % (Auto) 1.9 % Neut % (Auto) 67.3 % Lymph % (Auto) 23.7 % [place] % (Auto) 5.5 % Eos % (Auto) 0.9 % Baso % (Auto) 0.7 % Neut # (Auto) 4.53 (1.40-6.50) K/uL Lymph # (Auto) 1.60 (1.20-3.40) K/uL [place] # (Auto) 0.37 (0.11-0.59) K/uL Eos # (Auto) 0.06 (0.00-0.50) K/uL Baso # (Auto) 0.05 (0.00-0.20) K/uL Immature Gran # (Auto) 0.13 (0.01-0.20) K/uL PT 11.3 (9.0-12.0) Seconds INR 1.0 (0.9-1.1) APTT 24.4 (21.0-31.0) Seconds PTT Ratio 0.9 Sodium 136 (136-145) mmol/L Potassium 4.3 (3.5-5.1) mmol/L Chloride 99 (98-107) mmol/L Carbon Dioxide 31 (21-32) mmol/L Anion Gap 6 (3-11) BUN 67 H (6-23) mg/dl Creatinine 3.06 H (0.6-1.2) mg/dl Est Cr Clr Drug Dosing 24.2 ml/min Est GFR ( Amer) 17.8 ml/min Est GFR (Non-Af Amer) 15.4 ml/min BUN/Creatinine Ratio 21.9 H (10-20) Glucose 250 H (70-99(Fasting)) mg/dl Calcium 9.6 (8.6-10.3) mg/dl Total Bilirubin 1.1 H (0.2-1.0) mg/dl AST 32 (13-39) U/L ALT 26 (7-52) U/L Alkaline Phosphatase 181 H (34-104) U/L Total Protein 7.0 (6.0-8.3) gm/dl Albumin 3.9 (3.4-5.0) gm/dl Globulin 3.1 (2.5-4.0) gm/dl Albumin/Globulin Ratio 1.3 (0.9-2) Urine Color Urine Appearance (Clear) Urine pH (4.5-7.5) Ur Specific [place] (1.000-1.030) Urine Protein (Negative) Urine Glucose (UA) (Negative) Urine Ketones (Negative) Urine Blood (Negative) Urine Nitrite (Negative) Urine Bilirubin (Negative) Urine Urobilinogen (Negative) Ur Leukocyte Esterase (Negative) Urine WBC (Auto) (0-5) /hpf Urine RBC (Auto) (0-4) /hpf U Hyaline Cast (Auto) (0-5) /lpf U Epithel Cells (Auto) (0-5) /lpf Urine Bacteria (Auto) (Negative) 04/08/23 Range/Units 03:43 WBC (4.8-10.8) K/ul RBC (4.20-5.40) M/uL Hgb (12.0-16.0) g/dl Hct (37.0-47.0) % MCV (80.0-100.0) fL MCH (25.0-34.0) pg MCHC (32.0-36.0) g/dL RDW Std Deviation (36.4-46.3) fL RDW Coeff of Chantal (11.5-14.5) % Plt Count (130-400) K/uL MPV (9.4-12.4) fL Immature Gran % (Auto) % Neut % (Auto) % Lymph % (Auto) % [place] % (Auto) % Eos % (Auto) % Baso % (Auto) % Neut # (Auto) (1.40-6.50) K/uL Lymph # (Auto) (1.20-3.40) K/uL [place] # (Auto) (0.11-0.59) K/uL Eos # (Auto) (0.00-0.50) K/uL Baso # (Auto) (0.00-0.20) K/uL Immature Gran # (Auto) (0.01-0.20) K/uL PT (9.0-12.0) Seconds INR (0.9-1.1) APTT (21.0-31.0) Seconds PTT Ratio Sodium (136-145) mmol/L Potassium (3.5-5.1) mmol/L Chloride (98-107) mmol/L Carbon Dioxide (21-32) mmol/L Anion Gap (3-11) BUN (6-23) mg/dl Creatinine (0.6-1.2) mg/dl Est Cr Clr Drug Dosing ml/min Est GFR ( Amer) ml/min Est GFR (Non-Af Amer) ml/min BUN/Creatinine Ratio (10-20) Glucose (70-99(Fasting)) mg/dl Calcium (8.6-10.3) mg/dl Total Bilirubin (0.2-1.0) mg/dl AST (13-39) U/L ALT (7-52) U/L Alkaline Phosphatase (34-104) U/L Total Protein (6.0-8.3) gm/dl Albumin (3.4-5.0) gm/dl Globulin (2.5-4.0) gm/dl Albumin/Globulin Ratio (0.9-2) Urine Color Yellow Urine Appearance Clear (Clear) Urine pH 5.5 (4.5-7.5) Ur Specific [place] 1.011 (1.000-1.030) Urine Protein 2+ H (Negative) Urine Glucose (UA) 2+ H (Negative) Urine Ketones Negative (Negative) Urine Blood Trace H (Negative) Urine Nitrite Negative (Negative) Urine Bilirubin Negative (Negative) Urine Urobilinogen Negative (Negative) Ur Leukocyte Esterase Negative (Negative) Urine WBC (Auto) 0 (0-5) /hpf Urine RBC (Auto) 0-4 (0-4) /hpf U Hyaline Cast (Auto) 1-5 (0-5) /lpf U Epithel Cells (Auto) 5-10 H (0-5) /lpf Urine Bacteria (Auto) Negative (Negative) Imaging Data Radiologist's Impression: Head CT 04/08/23 03:06 Exam(s): CT HEAD Without Contrast EXAM: CT Head Without Intravenous Contrast CLINICAL HISTORY: Reason for exam: Fall, head injury. TECHNIQUE: Axial computed tomography images of the head/brain without intravenous contrast. Automated exposure control was utilized for the study. A dose lowering technique was utilized adhering to the principles of ALARA. COMPARISON: CT head performed 02/28/21 FINDINGS: Artifacts: Exam mildly motion degraded. Within this constraint: Brain: Unremarkable. No hemorrhage. No significant white matter disease. No edema. Ventricles: Unremarkable. No ventriculomegaly. Bones/joints: Unremarkable. No acute fracture. Soft tissues: Unremarkable. Sinuses: Unremarkable as visualized. No acute sinusitis. Mastoid air cells: Unremarkable as visualized. No mastoid effusion. IMPRESSION: Exam mildly motion degraded. Within this constraint: No acute intracranial pathology. Electronically signed by: Loc Mena M.D. 04/08/23 06:[address] 04/08/23 03:06 CR Exam(s): CT LEFT HIP Without Contrast EXAM: CT Left Lower Extremity Without Intravenous Contrast, Hip CLINICAL HISTORY: Reason for exam: fall, pain. TECHNIQUE: Axial computed tomography images of the left hip without intravenous contrast. Automated exposure control was utilized for the study. A dose lowering technique was utilized adhering to the principles of ALARA. COMPARISON: CT left hip performed 06/07/23 FINDINGS: Bones/joints: Acute, displaced transcervical fracture of the left femoral neck. Femoral diaphysis is displaced approximately 1.2 cm superiorly. Healing fracture of the greater trochanter. Femoral head remains within the acetabulum. Soft tissues: Prominent soft tissue inflammatory change surrounding the left hip and ill-defined suspected hematoma in the subcutaneous soft tissues of the left hip. Vasculature: Prominent atherosclerosis. IMPRESSION: Acute, displaced transcervical fracture of the left femoral neck. Femoral diaphysis is displaced approximately 1.2 cm superiorly. Communications: Call Doctor Trauma Electronically signed by: Loc Mena M.D. 04/08/23 06:31 AM MDM Narrative Physical exam and history were performed. Nursing notes, EMR, and Medication List were personally reviewed. No social concerns were identified as barriers to patients care. Patient appears to have fallen as described above with subsequent injury primarily to her left hip. IV access was established and labs were obtained. She was gently hydrated with normal saline and given IV morphine for comfort. CT scans of the left hip as well as CT scan of the head was performed. An order was placed for continuous cardiac monitoring. The monitor shows a rate of 79 with normal sinus rhythm. Patient's blood work is as above and was reviewed. She does not have significant elevated white blood cell count, gross anemia, or significant electrolyte imbalance. Glucose is 250. BUN is 67, and creatinine is 3.06. These are fairly normal for the patient. Transaminases are not diagnostic. Urine without distinct evidence of infection. CT scans were reviewed by myself and radiology. The patient appears to have a left hip fracture. I did speak with radiology regarding this, and did confirm this is a new appearing fracture compared to her old injury. Overall the patient does not appear well for discharge home. She has several comorbidities and has a new left hip fracture. Patient remained in stable condition until the time of shift change. At the time of shift change we have reached out to the hospitalist team, and are waiting to hear back from them. The case was discussed with my colleague, Naseem Zepeda PA-C, who will assume care at this time. Please see Mr. Zepeda's dictation for further patient course, plan, disposition. The chart was completed utilizing [employer] Speech Voice Recognition Software. Grammatical errors, random word insertions, pronoun errors, and incomplete sentences are an occasional consequence of this system due to software limitations, ambient noise, and hardware issues. Any formal questions or concerns about the content, text, or information contained within the body of this dictation should be directly addressed to the provider for clarification. . Impression & Plan Left displaced femoral neck fracture Discharge Plan Visit Data Chief Complaint: Hip Pain Stated Complaint: Fall, Hip Pain ED Provider: Michelle Chahal ED Midlevel Provider: Naseem Zepeda Discharge Problem: Left displaced femoral neck fracture Patient Disposition: Admitted As Inpatient Discharge Instructions Interventions: ED Discharge Assessment Last Done: 04/08/23 10:04
--- NOTE | 2023-04-08 07:01 | Emergency Department Note ---
ED Visit Note Patient case signed out to me at 0700 hrs. on 04/08/2023 by Eric Valente PA-C. This was pending formal discussion of the case with the hospitalist service as the patient will require admission noting hip fracture in the setting of comorbidities. I did notify orthopedics of the hip fracture. At 0744 on 04/08/[address] Collier. Please refer to further documentation regarding the patient's stay. .
--- NOTE | 2023-04-08 07:50 | History & Physical Report ---
Date of Service April 08, 2023 Assessment & Plan (1) Left displaced femoral neck fracture: Plan: Fall in a 62 yo female resulting in a left displaced femoral neck fracture (2) Type 2 diabetes mellitus: Plan: Consult glycemic control. Place on short acting insullin ACHSand Insulin glargine (3) Diastolic CHF: Plan: Holding diuretics. Patient does not appear to be in acute CHF (4) Hypothyroidism: Plan: resume home meds (5) HTN (hypertension): Plan: resume home meds Plan DVT: ordered heparin in the evening. History of Present Illness Chief Complaint: Fall Primary Care Provider: William Lewis MD This 62 yo femalepast medical history including atrial fibrillation, long-term use of anticoagulants, diabetes, gastric bypass, diabetic neuropathy, and chronic kidney diseasepresented to the ED after sustaining a mechanical fall. Patient reports that she was going to get up to the bathroom, but she tripped over a chair and fell. Patient reports that she did not pass out. She denies any palpitations, dizziness, nausea vomiting. Patient reports having severe left hip pain which prompted her to come to the ED. Patient reports she had a similar episode when she injured her contralateral leg. Allergies Allergy/AdvReac Type Severity Reaction Status Date / Time promethazine Allergy Intermediate BROKEN Verified 04/08/23 08:17 CAPILLARIES FACE Iodinated Contrast Media Allergy Unknown Unknown Verified 04/08/23 08:17 [Iodinated Contrast- Oral and IV Dye] Home Medications Medication Instructions Recorded Confirmed Type zinc gluconate 100 mg tablet 100 mg PO HS 07/23/18 04/08/23 History lorazepam 1 mg tablet (Ativan) 1 mg PO BID PRN anxiety 03/24/19 04/08/23 History buspirone 15 mg tablet 15 mg PO BID 11/28/20 04/08/23 History multivitamin (Daily Multi-Vitamin 1 tab PO QAM 04/04/21 04/08/23 History tablet) lancets (OneTouch UltraSoft #400 ea 04/12/21 04/04/23 Rx Lancets) omega-3 fatty acids 1,000 mg 1,000 mg PO QAM 08/21/21 04/08/23 History capsule acetaminophen 325 mg tablet 650 mg PO Q4H PRN fever #14 tabs 06/13/22 04/08/23 Rx trazodone 100 mg tablet 150 mg PO HS 07/09/22 04/08/23 History cyanocobalamin (vitamin B-12) 2,500 mcg PO 2XWK 10/08/22 04/08/23 History 2,500 mcg tablet amoxicillin 500 mg tablet 2,000 mg PO ONCE PRN Prophylaxis 10/30/22 04/08/23 History baclofen 5 mg tablet 5 mg PO TID PRN Muscle Spasm 10/30/22 04/08/23 History blood sugar diagnostic #300 ea 12/10/22 04/04/23 Rx Elderberry 250 mg PO QAM 12/20/22 04/08/23 History L.acidophil-L.casei-B.bifid-B.longum-FOS 2 cap PO QAM 12/20/22 04/08/23 History 2 billion cell-50 mg capsule (Probiotic Blend) amlodipine 10 mg tablet (Norvasc) 5 mg PO QAM 12/20/22 04/08/23 History ascorbic acid (vitamin C) 500 mg 1,000 mg PO QAM 12/20/22 04/08/23 History chewable tablet (Vitamin C) biotin 500 mcg capsule 1,000 mcg PO QAM 12/20/22 04/08/23 History bumetanide 2 mg tablet 2 mg PO QAM 12/20/22 04/08/23 History ergocalciferol (vitamin D2) 1,250 1,250 mcg PO WK 12/20/22 04/08/23 History mcg (50,000 unit) capsule (Vitamin D2) polysaccharide iron complex 150 mg 150 mg PO HS 12/20/22 04/08/23 History iron capsule (Ferrex) ondansetron 4 mg disintegrating 4 mg PO Q8H PRN nausea and 12/21/22 04/08/23 Rx tablet vomiting #14 tabs apixaban 5 mg tablet (Eliquis) 5 mg PO BID #180 tabs 12/24/22 04/08/23 Rx atorvastatin 80 mg tablet 80 mg PO HS #90 tabs 12/24/22 04/08/23 Rx metoprolol succinate 25 mg 25 mg PO DAILY 12/24/22 04/08/23 History tablet,extended release 24 hr hydrocodone 5 mg-acetaminophen 325 1 tab PO Q8H PRN pain #15 tabs 01/14/23 04/08/23 Rx mg tablet epoetin fernando-epbx 40,000 unit/mL 40,000 unit subcut UD 15 days #15 01/15/23 04/08/23 Rx injection solution (Retacrit) mL fenofibrate 160 mg tablet 160 mg PO QAM #90 tabs 01/23/23 04/08/23 Rx levothyroxine 50 mcg tablet 50 mcg PO DAILYBB #90 tabs 01/23/23 04/08/23 Rx pantoprazole 40 mg tablet,delayed 40 mg PO HS #90 tabs 01/23/23 04/08/23 Rx release nystatin 100,000 unit/gram topical 1 applic topical BID #60 grams 01/28/23 04/08/23 Rx powder insulin lispro 100 unit/mL See Rx Instructions subcut TIDM 02/05/23 04/08/23 Rx subcutaneous solution #10 mL insulin syringe-needle U-100 0.5 #400 ea 02/05/23 04/04/23 Rx mL 31 gauge x 5/16" (Easy Comfort Insulin Syringe) Lantus U-100 Insulin 100 unit/mL See Rx Instructions subcut QPM #10 02/06/23 04/08/23 Rx subcutaneous solution (insulin mL glargine) folic acid 1 mg tablet 1 mg PO QAM #90 tabs 02/22/23 04/08/23 Rx fluvoxamine 100 mg tablet 150 mg PO BID 04/08/23 04/08/23 History prednisone 10 mg tablet See Rx Instructions .Route .COMPLEX 04/08/23 04/08/23 History pregabalin 50 mg capsule (Lyrica) 50 mg PO BID 04/08/23 04/08/23 History Past Med/Surg History Medical History Acute renal failure (05/23/14) 2013. Kidneys recovered to around CKD III, then function worsened around 04/2020. Anemia due to chronic kidney disease Anxiety and depression Arthralgia of multiple sites Atrial fibrillation and flutter Atrial fibrillation, new onset dx August 2020> cardioversions x2. on eliquis > follows Dr. Fontaine AV fistula September 07, 2020 > right wrist > not on dialysis at present Cardiac murmur Mild TR noted on 2019 echo. Chronic kidney disease, stage 4 (severe) Chronic low back pain Chronic rhinitis CKD (chronic kidney disease) CKD (chronic kidney disease) Claustrophobia Closed fracture of greater trochanter of left femur (06/07/22) 05/2022--currently in PT, no surgery Diabetes IDDM Diabetic nephropathy Diabetic peripheral neuropathy Diabetic retinopathy, nonproliferative Diastolic congestive heart failure Euvolemic on exam at [facility] 09/02/20. follows with Dr. 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 Per [facility] pulm 12/2019, "fairly stable from a pulmonary perspective. She is short of breath with any exertion, however a large part of this is likely related to obesity. Pulmonary functions done 1 year ago showed only a mild restrictive pattern. Diffusion was slightly decreased to 66%. One year ago she did have a normal arterial blood gas with no evidence of CO2 retention." Using PRN 3L, mostly using with exertion, not using every day. Morbid obesity BMI 40.1 Nasal septal deviation Nocturnal hypoxia 2-3L N/C - during night Nontoxic multinodular goiter Obesity hypoventilation syndrome On home oxygen therapy 2L n/c prn sob TRUMAN (obstructive sleep apnea) PRESCRIBED BIPAP-CAN'T TOLERATE-CLAUSTROPHOBIC PAF (paroxysmal atrial fibrillation) Pneumonia hx of, not recently Right sided sciatica Syncope Trochanteric fracture of left femur Vitamin D deficiency Surgical History H/O section x1 History of arthroscopy x2 left shoulder History of bilateral cataract extraction History of cardioversion x2 History of colonoscopy History of dermoid cyst excision History of esophagogastroduodenoscopy (EGD) History of mandibular surgery FULL ROM History of total shoulder replacement LEFT 07/19 2015 fracture Hx of cholecystectomy S/P tooth extraction Status post gastric bypass for obesity 09/14/2020- Dr. Ash- [facility] Family History Daughter Multiple allergies Bipolar disorder Aunt Breast cancer Mother Diabetes Heart disease Hyperthyroidism Hypertension Father Gastric cancer Hearing loss Myocardial infarction Grandfather Heart disease Family/Other Osteoporosis Lung cancer Hypertension Stroke Brother Hypertension Grandmother Ovarian cancer Sister Diabetes Migraine Other No family history of adverse response to anesthesia Denies family history of Prostate cancer Colorectal cancer Uterine cancer Social History Smoking Status: Never smoker Second Hand Exposure: No; Do You Dip or Chew Tobacco: No; Hx Alcohol Use: No Hx Substance Use: No Preferred Language: Ukrainian Communication Ability: Effective Visual Impairment: No Limitations 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 Order Clerk Room Service Required: No Beliefs That Will Affect Care: None marital status: Current Living Situation: Spouse Current Living Situation Comment: Home w/ current occupational status: employed and unemployed Other Information That Helps Us Care for You: No Feels Safe at Home: Yes Safety Concerns: Feels Safe At This Time Childhood Exposure to Second-Hand Smoke: Yes Dental Care, Regularly: Yes Physical Activity Frequency: Does not Exercise Seatbelt Use: always Sunscreen Use: Yes Assistive Devices: Cane and Walker Review of Systems Constitutional: no fever and no body aches Eyes: no blind spots and no discharge Ear, Nose, Mouth, Throat: no ear pain and no tinnitus Respiratory: no cough and no dyspnea Cardiovascular: no chest pain Gastrointestinal: no abdominal pain Genitourinary: no dysuria Musculoskeletal: no back pain Integumentary: no acne Neurologic: no gait abnormality and no localized weakness Psychiatric: no behavioral changes and no anhedonia Endocrine: no fatigue Hematologic / Lymphatic: no easy bleeding Allergy / Immunological: no GI upset with certain foods Physical Exam Physical Exam: General: A&Ox3. NAD. Cooperative. HEENT: Atraumatic, normocephalic. Vision/hearing intact Pulm: CTA B/L Cardiac: irir, -mrg. Radial pulses intact and symmetrical. Abdominal: Nontender, nondistended, soft. BS present. Extremities: externally rotated left leg. Results & Data Results & Data Vital Signs (Past 12 Hours) Vital Signs Temp Pulse Pulse Resp BP BP Pulse Ox 04/08/23 06:30 79 12 147/88 H 96 04/08/23 06:00 79 13 148/87 H 95 04/08/23 05:30 79 13 136/81 92 04/08/23 05:00 78 15 151/84 H 94 04/08/23 05:15 78 04/08/23 04:30 77 16 168/98 H 94 04/08/23 03:30 76 18 159/95 H 04/08/23 03:00 77 19 170/97 H 95 04/08/23 03:13 36.4 C L 60 18 168/105 H 98 04/08/23 03:13 36.4 C L 60 18 168/105 H 98 O2 Del Method 04/08/23 06:30 04/08/23 06:00 04/08/23 05:30 04/08/23 05:00 04/08/23 05:15 04/08/23 04:30 04/08/23 03:30 04/08/23 03:00 04/08/23 03:13 Room Air 04/08/23 03:13 Room Air PG Care Time/CCT Total # of Minutes Spent Total Time Spent with Patient: Total time spent is greater than 50% in coordination of care (as documented) at patient's floor/unit and/or counseling patient: Coding Level of Care Code 35565 INT INP/OBS CARE 375MIN Diagnoses Left displaced femoral neck fracture S72.002A Type 2 diabetes mellitus E11.69; Z79.4 Diabetes mellitus [facility] insulin use: with terminologist use Diabetes mellitus complication status: with other specified complication Diastolic CHF I50.30 Hypothyroidism E03.9 HTN (hypertension) I10 (2) Type 2 diabetes mellitus Diabetes mellitus [facility] insulin use: with terminologist use Diabetes mellitus complication status: with other specified complication Qualified Code(s): E11.69 - Type 2 diabetes mellitus with other specified complication; Z79.4 - prison (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
[2023-04-08] MEDS ORDERED: LACTATED RINGER'S 1,000 ML IV SCH (08:00)
[2023-04-08] MEDS ORDERED: PHARMACY GLYCEMIC MGMT CONSULT PRN (09:08)
[2023-04-08] MEDS ORDERED: GLUCOSE 10 TAB/TUBE PO PRN (10:15)
[2023-04-08] MEDS ORDERED: GLUCAGON FOR INJ 1 MG VIAL IM PRN (10:15)
[2023-04-08] MEDS ORDERED: GLUCOSE 40% GEL 15 GM TUBE PO PRN (10:15)
[2023-04-08] MEDS ORDERED: DEXTROSE 50% 50 ML SYRINGE IV PRN (10:15)
[2023-04-08] MEDS: busPIRone 15 MG TAB PO SCH ×2 (11:13→20:50)
[2023-04-08] MEDS: fluvoxaMINE MALEATE 50 MG TAB PO SCH ×2 (11:17→20:50)
[2023-04-08] MEDS: METOPROLOL SUCC 25MG EXT REL TAB PO SCH (11:17)
[2023-04-08] MEDS: PREGABALIN 50 MG CAP PO SCH ×2 (11:17→20:05)
--- NOTE | 2023-04-08 13:45 | XRay Report ---
XR hip 1V LT w pelvis HISTORY: 62 years-old Female Left hip fracture acute left hip pain COMPARISON: CT left hip of same day, pelvis and hip radiographs 10/03/2022, 07/02/2022. TECHNIQUE: AP view of the pelvis with 2 views of the left hip FINDINGS: Healing subacute to chronic greater trochanteric nondisplaced fracture demonstrates unchanged alignme nt. There is an acute transcervical left femoral neck fracture which is comminuted with mild impactio n and superior lateral mild angulation with proximal 1.5 cm superior displacement. No dislocation. Mi [id number] left hip osteoarthritis. IMPRESSION: 1. Acute, mildly displaced, impacted and comminuted transcervical fracture of the left femur. 2. Healing subacute to chronic nondisplaced greater trochanteric fracture. ACT 112: Negative or not required by law. The above report was generated using voice recognition software. It may contain grammatical, syntax o r spelling errors. Electronically signed by: Timothy Tracy M.D. 04/08/2023 1:43 PM
[2023-04-08] MEDS: INSULIN ASPART PER UNIT CHARGE SC SCH ×4 (14:23→21:01)
--- NOTE | 2023-04-08 14:29 | Pharmacy Report ---
Pharmacy Glycemic Short Note 2 - Date of Service April 08, 2023 - Glycemic Short BSG Results (Last 24 hours): 04/08/23 04/08/23 03:09 11:11 Glucose 250 H POC Glucose 170 H OUTPATIENT ANTIDIABETIC REGIMEN: * Lantus 4-6 units HS * Novolog 5-8 units with meals * HbA1C = 7% (03/06/23) ASSESSMENT: * Ms Arellano is a 62 y/o F with a PMH of T2DM who presents with a fall and hip fracture. * BSG in ER this morning was 170 mg/dL. (roughly 1100) * Previous admission in October 2022, patient tolerated Lantus 4 units HS + Novolog CF 45 CR 15 and blood sugars were well controlled. * Will resume this regimen with slightly tighter CR. At this time patient has diet ordered. PLAN FOR INPATIENT GLYCEMIC CONTROL: * Basal insulin * Lantus 4 units SQ HS * Bolus insulin * NovoLog per scale ACHS or Q6hrs while NPO * Goal Range: Low 110 mg/dL - High 140 mg/dL * Correction Factor: 45 mg/dL/unit * Nutritional / Prandial insulin per carb ratio of 1 unit per 10 grams CHO consumed
--- NOTE | 2023-04-08 16:05 | Orthopedic Consultation ---
Date of Service April 08, 2023 Assessment & Plan (1) Left displaced femoral neck fracture: She was seen and examined by Dr. Childress today as well. She was educated about this fracture and treatment for it. We recommend cemented bipolar hemiarthroplasty of the left hip. Procedure explained and consent obtained. Her was on the phone at this time as well. She wishes to proceed with surgery. Surgery will be tomorrow 04/09. NPO after midnight. History of Present Illness Reason for Consultation: . Requesting Physician: . Attending Physician: Tushar Collier . Jerri is a 62 year old patient with h/o a left greater troch fx about 10 months ago treated nonoperatively. She was doing okay. She ambulates with a walker or cane for assistance. At around 1am this morning she was walking and tripped over a chair, injuring her hip. Imaging in the ER shows a displaced femoral neck fracture. Complains of left groin pain. No other injuries. Allergies Allergy/AdvReac Type Severity Reaction Status Date / Time promethazine Allergy Intermediate BROKEN Verified 04/08/23 08:17 CAPILLARIES FACE Iodinated Contrast Media Allergy Unknown Unknown Verified 04/08/23 08:17 [Iodinated Contrast- Oral and IV Dye] Home Medications Medication Instructions Recorded Confirmed Type zinc gluconate 100 mg tablet 100 mg PO HS 07/23/18 04/08/23 History lorazepam 1 mg tablet (Ativan) 1 mg PO BID PRN anxiety 03/24/19 04/08/23 History buspirone 15 mg tablet 15 mg PO BID 11/28/20 04/08/23 History multivitamin (Daily Multi-Vitamin 1 tab PO QAM 04/04/21 04/08/23 History tablet) lancets (OneTouch UltraSoft #400 ea 04/12/21 04/04/23 Rx Lancets) omega-3 fatty acids 1,000 mg 1,000 mg PO QAM 08/21/21 04/08/23 History capsule acetaminophen 325 mg tablet 650 mg PO Q4H PRN fever #14 tabs 06/13/22 04/08/23 Rx trazodone 100 mg tablet 150 mg PO HS 07/09/22 04/08/23 History cyanocobalamin (vitamin B-12) 2,500 mcg PO 2XWK 10/08/22 04/08/23 History 2,500 mcg tablet amoxicillin 500 mg tablet 2,000 mg PO ONCE PRN Prophylaxis 10/30/22 04/08/23 History baclofen 5 mg tablet 5 mg PO TID PRN Muscle Spasm 10/30/22 04/08/23 History blood sugar diagnostic #300 ea 12/10/22 04/04/23 Rx Elderberry 250 mg PO QAM 12/20/22 04/08/23 History L.acidophil-L.casei-B.bifid-B.longum-FOS 2 cap PO QAM 12/20/22 04/08/23 History 2 billion cell-50 mg capsule (Probiotic Blend) amlodipine 10 mg tablet (Norvasc) 5 mg PO QAM 12/20/22 04/08/23 History ascorbic acid (vitamin C) 500 mg 1,000 mg PO QAM 12/20/22 04/08/23 History chewable tablet (Vitamin C) biotin 500 mcg capsule 1,000 mcg PO QAM 12/20/22 04/08/23 History bumetanide 2 mg tablet 2 mg PO QAM 12/20/22 04/08/23 History ergocalciferol (vitamin D2) 1,250 1,250 mcg PO WK 12/20/22 04/08/23 History mcg (50,000 unit) capsule (Vitamin D2) polysaccharide iron complex 150 mg 150 mg PO HS 12/20/22 04/08/23 History iron capsule (Ferrex) ondansetron 4 mg disintegrating 4 mg PO Q8H PRN nausea and 12/21/22 04/08/23 Rx tablet vomiting #14 tabs apixaban 5 mg tablet (Eliquis) 5 mg PO BID #180 tabs 12/24/22 04/08/23 Rx atorvastatin 80 mg tablet 80 mg PO HS #90 tabs 12/24/22 04/08/23 Rx metoprolol succinate 25 mg 25 mg PO DAILY 12/24/22 04/08/23 History tablet,extended release 24 hr hydrocodone 5 mg-acetaminophen 325 1 tab PO Q8H PRN pain #15 tabs 01/14/23 04/08/23 Rx mg tablet epoetin fernando-epbx 40,000 unit/mL 40,000 unit subcut UD 15 days #15 01/15/23 04/08/23 Rx injection solution (Retacrit) mL fenofibrate 160 mg tablet 160 mg PO QAM #90 tabs 01/23/23 04/08/23 Rx levothyroxine 50 mcg tablet 50 mcg PO DAILYBB #90 tabs 01/23/23 04/08/23 Rx pantoprazole 40 mg tablet,delayed 40 mg PO HS #90 tabs 01/23/23 04/08/23 Rx release nystatin 100,000 unit/gram topical 1 applic topical BID #60 grams 01/28/23 04/08/23 Rx powder insulin lispro 100 unit/mL See Rx Instructions subcut TIDM 02/05/23 04/08/23 Rx subcutaneous solution #10 mL insulin syringe-needle U-100 0.5 #400 ea 02/05/23 04/04/23 Rx mL 31 gauge x 5/16" (Easy Comfort Insulin Syringe) Lantus U-100 Insulin 100 unit/mL See Rx Instructions subcut QPM #10 02/06/23 04/08/23 Rx subcutaneous solution (insulin mL glargine) folic acid 1 mg tablet 1 mg PO QAM #90 tabs 02/22/23 04/08/23 Rx fluvoxamine 100 mg tablet 150 mg PO BID 04/08/23 04/08/23 History prednisone 10 mg tablet See Rx Instructions .Route .COMPLEX 04/08/23 04/08/23 History pregabalin 50 mg capsule (Lyrica) 50 mg PO BID 04/08/23 04/08/23 History Past Med/Surg History Medical History Acute renal failure (05/23/14) 2013. Kidneys recovered to around CKD III, then function worsened around 04/2020. Anemia due to chronic kidney disease Anxiety and depression Arthralgia of multiple sites Atrial fibrillation and flutter Atrial fibrillation, new onset dx August 2020> cardioversions x2. on eliquis > follows Dr. Fontaine AV fistula September 07, 2020 > right wrist > not on dialysis at present Cardiac murmur Mild TR noted on 2019 echo. Chronic kidney disease, stage 4 (severe) Chronic low back pain Chronic rhinitis CKD (chronic kidney disease) CKD (chronic kidney disease) Claustrophobia Closed fracture of greater trochanter of left femur (06/07/22) 05/2022--currently in PT, no surgery Diabetes IDDM Diabetic nephropathy Diabetic peripheral neuropathy Diabetic retinopathy, nonproliferative Diastolic congestive heart failure Euvolemic on exam at [facility] 09/02/20. follows with Dr. 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 Per [facility] pulm 12/2019, "fairly stable from a pulmonary perspective. She is short of breath with any exertion, however a large part of this is likely related to obesity. Pulmonary functions done 1 year ago showed only a mild restrictive pattern. Diffusion was slightly decreased to 66%. One year ago she did have a normal arterial blood gas with no evidence of CO2 retention." Using PRN 3L, mostly using with exertion, not using every day. Morbid obesity BMI 40.1 Nasal septal deviation Nocturnal hypoxia 2-3L N/C - during night Nontoxic multinodular goiter Obesity hypoventilation syndrome On home oxygen therapy 2L n/c prn sob TRUMAN (obstructive sleep apnea) PRESCRIBED BIPAP-CAN'T TOLERATE-CLAUSTROPHOBIC PAF (paroxysmal atrial fibrillation) Pneumonia hx of, not recently Right sided sciatica Syncope Trochanteric fracture of left femur Vitamin D deficiency Surgical History H/O section x1 History of arthroscopy x2 left shoulder History of bilateral cataract extraction History of cardioversion x2 History of colonoscopy History of dermoid cyst excision History of esophagogastroduodenoscopy (EGD) History of mandibular surgery FULL ROM History of total shoulder replacement LEFT 07/19 2015 fracture Hx of cholecystectomy S/P tooth extraction Status post gastric bypass for obesity 09/14/2020- Dr. Ash- [facility] Family History Daughter Multiple allergies Bipolar disorder Aunt Breast cancer Mother Diabetes Heart disease Hyperthyroidism Hypertension Father Gastric cancer Hearing loss Myocardial infarction Grandfather Heart disease Family/Other Osteoporosis Lung cancer Hypertension Stroke Brother Hypertension Grandmother Ovarian cancer Sister Diabetes Migraine Other No family history of adverse response to anesthesia Denies family history of Prostate cancer Colorectal cancer Uterine cancer Social History Smoking Status: Never smoker Second Hand Exposure: No; Do You Dip or Chew Tobacco: No; Hx Alcohol Use: No Hx Substance Use: No Preferred Language: Macedonian Communication Ability: Effective Visual Impairment: No Limitations 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 Physical Exam . alert and oriented. NAD. Left leg: shortened and externally rotated. No knee effusion. Able to dorsiflex and plantarflex. NVI. Results & Data Results & Data Laboratory Results . Diagnostic Findings . xrays reviewed of the hip and show a displaced left femoral neck fracture with healed greater trochanter fracture. PG Care Time/CCT Total # of Minutes Spent Total Time Spent with Patient: Total time spent is greater than 50% in coordination of care (as documented) at patient's floor/unit and/or counseling patient: Coding Level of Care Code 96607 IN/OBS CONSULT LVL 4,60M Diagnoses Left displaced femoral neck fracture S72.002A
[2023-04-08] MEDS: ATORVASTATIN 40 MG TAB PO SCH (20:50)
[2023-04-08] MEDS: traZODone HCL 50 MG TAB PO SCH (20:50)
[2023-04-08] MEDS: PANTOprazole 40 MG TAB PO SCH (20:51)
[2023-04-08] MEDS ORDERED: HEPARIN SOD 5,000 UNIT/0.5 ML VIAL SQ STA (22:16)
[2023-04-09] MEDS: MoRPHine SULFATE 4 MG/ML 1 ML CARP\\VIAL IV PRN ×4 (03:20→18:39)
[2023-04-09] MEDS: LEVOTHYROXINE SODIUM 50 MCG TABLET PO SCH (05:26)
[2023-04-09] MEDS: PREGABALIN 50 MG CAP PO SCH ×2 (07:52→20:14)
[2023-04-09] MEDS: busPIRone 15 MG TAB PO SCH ×2 (07:52→20:06)
[2023-04-09] MEDS: fluvoxaMINE MALEATE 50 MG TAB PO SCH ×2 (07:52→20:06)
[2023-04-09] MEDS: METOPROLOL SUCC 25MG EXT REL TAB PO SCH (07:52)
[2023-04-09] MEDS: INSULIN ASPART PER UNIT CHARGE SC SCH ×4 (07:54→20:14)
--- NOTE | 2023-04-09 11:20 | XRay Report ---
XR chest 1V portable CLINICAL HISTORY: surgery today/ hypoxia TECHNIQUE: Single frontal radiograph of the chest was obtained. Comparison: Comparison is made to chest radiograph 10/30/2022 FINDINGS: Left reverse shoulder arthroplasty is seen. Cardiomegaly is noted. The aortic arch is calcified. The lungs are clear. No evidence of pleural effusion or pneumothorax. IMPRESSION: No acute chest disease. ACT 112: Negative or not required by law. Electronically signed by: Farhan Higgins M.D. 04/09/2023 11:19 AM
[2023-04-09 11:26] LABS: BUN Creatinine Ratio 21.7 (10-20); C Reactive Protein 2.9 mg/dl (0-0.5); Calcium 8.4 mg/dl (8.6-10.3); Creatinine Clr Calc Pharmacy 23.3 ml/min; Est GFR (Non-African American) 14.7 ml/min; Potassium 4.7 mmol/L (3.5-5.1)
[2023-04-09 11:29] LABS: Hematocrit (blood only) 34.2 % (37.0-47.0); Hemoglobin 10.3 g/dl (12.0-16.0); Mean Corpuscular Hemoglobin 26.3 pg (25.0-34.0); Mean Corpuscular Hgb Conc 30.1 g/dL (32.0-36.0); Mean Corpuscular Volume 87.5 fL (80.0-100.0); Mean Platelet Volume 12.1 fL (9.4-12.4); Platelet Count 97 K/uL (130-400); Red Blood Count 3.91 M/uL (4.20-5.40); White Blood Count 10.86 K/ul (4.8-10.8)
[2023-04-09] MEDS ORDERED: MIDAZOLAM HCL 1 MG/ML 2ML VIAL ONE (13:07)
[2023-04-09] MEDS ORDERED: fentaNYL citrate PF 100 MCG/2 ML VIAL ONE (13:07)
[2023-04-09] MEDS: SODIUM CHLORIDE 0.9% 1,000 ML IV SCH (14:04)
[2023-04-09] MEDS ORDERED: fentaNYL citrate PF 100 MCG/2 ML VIAL IV PRN (14:18)
[2023-04-09] MEDS ORDERED: ONDANSETRON INJ 2 MG/ML 2 ML VIAL IV PRN (14:18)
[2023-04-09] MEDS ORDERED: ATROPINE SULFATE 0.1 MG/ML 10ML SYR IV PRN (14:18)
[2023-04-09] MEDS ORDERED: ePHEDrine sulfate 50 MG/ML AMP IV PRN (14:18)
--- NOTE | 2023-04-09 14:18 | Anesthesiology Consultation ---
Date of Service April 09, 2023 Assessment & Plan Chart Review Chart Review: Acceptable Risk for Surgery and Patient NOT seen in Pre Admission Testing Consults Requested none ASA ASA4 Proposed Anesthesia Anesthesia Type: General Risk / Benefits Reviewed With: PT / POA / Parent / Guardian, Accepts Plan and Informed Consent Obtained History Surgery Operation Date: 04/09/23 07:00 Proposed Procedures p Left Cemented Bipolar Hip - Eric Childress MD Height/Weight Height: 5 ft 7 in Weight: 113.8 kg Allergies Allergy/AdvReac Type Severity Reaction Status Date / Time promethazine Allergy Intermediate BROKEN Verified 04/08/23 08:17 CAPILLARIES FACE Iodinated Contrast Media Allergy Unknown Unknown Verified 04/08/23 08:17 [Iodinated Contrast- Oral and IV Dye] Medications Home Medications Medication Instructions Recorded Confirmed Last Taken zinc gluconate 100 mg tablet 100 mg PO HS 07/23/18 04/08/23 04/07/23 lorazepam 1 mg tablet (Ativan) 1 mg PO BID PRN anxiety 03/24/19 04/08/23 04/07/23 buspirone 15 mg tablet 15 mg PO BID 11/28/20 04/08/23 04/07/23 multivitamin (Daily Multi-Vitamin 1 tab PO QAM 04/04/21 04/08/23 04/07/23 tablet) lancets (OneTouch UltraSoft #400 ea 04/12/21 04/04/23 Unknown Lancets) omega-3 fatty acids 1,000 mg 1,000 mg PO QAM 08/21/21 04/08/23 04/07/23 capsule acetaminophen 325 mg tablet 650 mg PO Q4H PRN fever #14 tabs 06/13/22 04/08/23 12/30/22 08:00 trazodone 100 mg tablet 150 mg PO HS 07/09/22 04/08/23 04/07/23 cyanocobalamin (vitamin B-12) 2,500 mcg PO 2XWK 10/08/22 04/08/23 04/04/23 2,500 mcg tablet amoxicillin 500 mg tablet 2,000 mg PO ONCE PRN Prophylaxis 10/30/22 04/08/23 Unknown baclofen 5 mg tablet 5 mg PO TID PRN Muscle Spasm 10/30/22 04/08/23 Unknown blood sugar diagnostic #300 ea 12/10/22 04/04/23 Unknown Elderberry 250 mg PO QAM 12/20/22 04/08/23 04/07/23 L.acidophil-L.casei-B.bifid-B.longum-FOS 2 cap PO QAM 12/20/22 04/08/23 04/07/23 2 billion cell-50 mg capsule (Probiotic Blend) amlodipine 10 mg tablet (Norvasc) 5 mg PO QAM 12/20/22 04/08/23 04/07/23 ascorbic acid (vitamin C) 500 mg 1,000 mg PO QAM 12/20/22 04/08/23 04/07/23 chewable tablet (Vitamin C) biotin 500 mcg capsule 1,000 mcg PO QAM 12/20/22 04/08/23 04/07/23 bumetanide 2 mg tablet 2 mg PO QAM 12/20/22 04/08/23 04/07/23 ergocalciferol (vitamin D2) 1,250 1,250 mcg PO WK 12/20/22 04/08/23 04/07/23 mcg (50,000 unit) capsule (Vitamin D2) polysaccharide iron complex 150 mg 150 mg PO HS 12/20/22 04/08/23 04/07/23 iron capsule (Ferrex) ondansetron 4 mg disintegrating 4 mg PO Q8H PRN nausea and 12/21/22 04/08/23 Unknown tablet vomiting #14 tabs apixaban 5 mg tablet (Eliquis) 5 mg PO BID #180 tabs 12/24/22 04/08/23 04/07/23 atorvastatin 80 mg tablet 80 mg PO HS #90 tabs 12/24/22 04/08/23 04/07/23 metoprolol succinate 25 mg 25 mg PO DAILY 12/24/22 04/08/23 04/07/23 tablet,extended release 24 hr hydrocodone 5 mg-acetaminophen 325 1 tab PO Q8H PRN pain #15 tabs 01/14/23 04/08/23 Unknown mg tablet epoetin fernando-epbx 40,000 unit/mL 40,000 unit subcut UD 15 days #15 01/15/23 1 Month Ago injection solution (Retacrit) mL ~03/09/23 fenofibrate 160 mg tablet 160 mg PO QAM #90 tabs 01/23/23 04/08/23 04/07/23 levothyroxine 50 mcg tablet 50 mcg PO DAILYBB #90 tabs 01/23/23 04/08/23 04/07/23 pantoprazole 40 mg tablet,delayed 40 mg PO HS #90 tabs 01/23/23 04/08/23 04/07/23 release nystatin 100,000 unit/gram topical 1 applic topical BID #60 grams 01/28/23 04/08/23 04/07/23 powder insulin lispro 100 unit/mL See Rx Instructions subcut TIDM 02/05/23 04/08/23 04/07/23 subcutaneous solution #10 mL insulin syringe-needle U-100 0.5 #400 ea 02/05/23 04/04/23 Unknown mL 31 gauge x 5/16" (Easy Comfort Insulin Syringe) Lantus U-100 Insulin 100 unit/mL See Rx Instructions subcut QPM #10 02/06/23 04/08/23 04/07/23 subcutaneous solution (insulin mL glargine) folic acid 1 mg tablet 1 mg PO QAM #90 tabs 02/22/23 04/08/23 04/07/23 fluvoxamine 100 mg tablet 150 mg PO BID 04/08/23 04/08/23 04/07/23 prednisone 10 mg tablet See Rx Instructions .Route .COMPLEX 04/08/23 04/08/23 Unknown pregabalin 50 mg capsule (Lyrica) 50 mg PO BID 04/08/23 04/08/23 04/07/23 Active Medications Generic Name Dose Route Start Last Admin Trade Name Gamaliel PRN Reason Stop Dose Admin Atorvastatin Calcium 80 mg 04/08/23 21:00 04/08/23 20:50 Atorvastatin 40 Mg Tab PO 05/08/23 20:59 80 mg HS JOHNATHON Administration Buspirone HCl 15 mg 04/08/23 09:00 04/09/23 07:52 Buspirone 15 Mg Tab PO 05/08/23 08:59 15 mg BID JOHNATHON Administration Fluvoxamine Maleate 150 mg 04/08/23 11:00 04/09/23 07:52 Fluvoxamine Maleate 50 Mg Tab PO 05/08/23 10:59 150 mg BID JOHNATHON Administration Sodium Chloride 1,000 mls @ 15 mls/hr 04/09/23 14:15 04/09/23 14:04 Nss IV 05/09/23 14:14 15 mls/hr .Q24H JOHNATHON Administration Insulin Aspart 0 units 04/08/23 10:00 04/09/23 11:32 Insulin Aspart Per Unit Charge SC 05/08/23 09:59 Not Given ACHS JOHNATHON Levothyroxine Sodium 50 mcg 04/09/23 06:30 04/09/23 05:26 Levothyroxine Sodium 50 Mcg Tablet PO 05/09/23 06:29 50 mcg DAILYBB JOHNATHON Administration Metoprolol Succinate 25 mg 04/08/23 11:00 04/09/23 07:52 Metoprolol Succ 25mg Ext Rel Tab PO 05/08/23 10:59 25 mg DAILY JOHNATHON Administration Morphine Sulfate 4 mg 04/08/23 03:06 04/09/23 11:47 Morphine Sulfate 4 Mg/Ml 1 Ml Carp\\Vial IV 04/22/23 03:05 4 mg Q1H PRN Administration Severe Pain (Rating 7,8,9,10) Pantoprazole Sodium 40 mg 04/08/23 21:00 04/08/23 20:51 Pantoprazole 40 Mg Tab PO 05/08/23 20:59 40 mg HS JOHNATHON Administration Pregabalin 50 mg 04/08/23 11:00 04/09/23 07:52 Pregabalin 50 Mg Cap PO 05/08/23 10:59 50 mg BID JOHNATHON Administration Trazodone HCl 150 mg 04/08/23 21:00 04/08/23 20:50 Trazodone Hcl 50 Mg Tab PO 05/08/23 20:59 150 mg HS JOHNATHON Administration NPO Date Last Intake of Fluids: 04/08/23 Time Last Intake of Fluids: 23:00 Last Intake of Fluids Comment: sip of water 0800 w/meds Date Last Intake of Solids: 04/08/23 Time Last Intake of Solids: 23:00 Past Medical History Medical History Acute renal failure (05/23/14) 2013. Kidneys recovered to around CKD III, then function worsened around 04/2020. Anemia due to chronic kidney disease Anxiety and depression Arthralgia of multiple sites Atrial fibrillation and flutter Atrial fibrillation, new onset dx August 2020> cardioversions x2. on eliquis > follows Dr. Fontaine AV fistula September 07, 2020 > right wrist > not on dialysis at present Cardiac murmur Mild TR noted on 2019 echo. Chronic kidney disease, stage 4 (severe) Chronic low back pain Chronic rhinitis CKD (chronic kidney disease) CKD (chronic kidney disease) Claustrophobia Closed fracture of greater trochanter of left femur (06/07/22) 05/2022--currently in PT, no surgery Diabetes IDDM Diabetic nephropathy Diabetic peripheral neuropathy Diabetic retinopathy, nonproliferative Diastolic congestive heart failure Euvolemic on exam at [facility] 09/02/20. follows with Dr. 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 Per [facility] pulm 12/2019, "fairly stable from a pulmonary perspective. She is short of breath with any exertion, however a large part of this is likely related to obesity. Pulmonary functions done 1 year ago showed only a mild restrictive pattern. Diffusion was slightly decreased to 66%. One year ago she did have a normal arterial blood gas with no evidence of CO2 retention." Using PRN 3L, mostly using with exertion, not using every day. Morbid obesity BMI 40.1 Nasal septal deviation Nocturnal hypoxia 2-3L N/C - during night Nontoxic multinodular goiter Obesity hypoventilation syndrome On home oxygen therapy 2L n/c prn sob TRUMAN (obstructive sleep apnea) PRESCRIBED BIPAP-CAN'T TOLERATE-CLAUSTROPHOBIC PAF (paroxysmal atrial fibrillation) Pneumonia hx of, not recently Right sided sciatica Syncope Trochanteric fracture of left femur Vitamin D deficiency Exercise / Class Metabolic Activity II 4-5 Yardwork/Stairs/Walk up hill Past Family History Family History Daughter Multiple allergies Bipolar disorder Aunt Breast cancer Mother Diabetes Heart disease Hyperthyroidism Hypertension Father Gastric cancer Hearing loss Myocardial infarction Grandfather Heart disease Family/Other Osteoporosis Lung cancer Hypertension Stroke Brother Hypertension Grandmother Ovarian cancer Sister Diabetes Migraine Other No family history of adverse response to anesthesia Denies family history of Prostate cancer Colorectal cancer Uterine cancer Past Surgical History Surgical History H/O section x1 History of arthroscopy x2 left shoulder History of bilateral cataract extraction History of cardioversion x2 History of colonoscopy History of dermoid cyst excision History of esophagogastroduodenoscopy (EGD) History of mandibular surgery FULL ROM History of total shoulder replacement LEFT 07/19 2015 fracture Hx of cholecystectomy S/P tooth extraction Status post gastric bypass for obesity 09/14/2020- Dr. Ash- [facility] Past Anesthesia History No Hx of Anesthesia Complications and No Family Hx of Anesthesia Complications History of PONV No Hx of PONV and No Hx of Motion Sickness Social History Smoking Status: Never smoker Do You Dip or Chew Tobacco: No Hx Alcohol Use: No Alcohol type: beer alcohol intake frequency: holidays/special occasions only Hx Substance Use: No substance use type: does not use Physical Exam Vital Signs Last Vital Signs Temp 36.8 C 04/09/23 13:54 Pulse 95 H 04/09/23 13:54 Resp 18 04/09/23 13:54 BP 102/64 04/09/23 13:54 Pulse Ox 97 04/09/23 13:54 O2 Del Method Nasal Cannula 04/09/23 13:54 O2 Flow Rate 2 04/09/23 13:54 ENMT Mouth: no dentition abnormality Thyromental Distance: > or= 3.5 Finger Breadths Mallampati Class: II Neck normal visual inspection Respiratory normal respiratory effort Auscultation: lungs clear to auscultation bilaterally Cardiovascular Rate/Rhythm: regular rate and regular rhythm Psychiatric Orientation: alert Testing Laboratory Results 04/09/23 10:52 04/09/23 10:52 PT 11.3 Seconds (9.0-12.0) 04/08/23 03:05 INR 1.0 (0.9-1.1) 04/08/23 03:05 APTT 24.4 Seconds (21.0-31.0) 04/08/23 03:05 Urine Color Yellow 04/08/23 03:43 Urine Appearance Clear (Clear) 04/08/23 03:43 Urine pH 5.5 (4.5-7.5) 04/08/23 03:43 Ur Specific [place] 1.011 (1.000-1.030) 04/08/23 03:43 Urine Protein 2+ (Negative) H 04/08/23 03:43 Urine Glucose (UA) 2+ (Negative) H 04/08/23 03:43 Urine Ketones Negative (Negative) 04/08/23 03:43 Urine Nitrite Negative (Negative) 04/08/23 03:43 Ur Leukocyte Esterase Negative (Negative) 04/08/23 03:43 Urine WBC (Auto) 0 /hpf (0-5) 04/08/23 03:43 Urine RBC (Auto) 0-4 /hpf (0-4) 04/08/23 03:43 U Hyaline Cast (Auto) 1-5 /lpf (0-5) 04/08/23 03:43 U Epithel Cells (Auto) 5-10 /lpf (0-5) H 04/08/23 03:43 Urine Bacteria (Auto) Negative (Negative) 04/08/23 03:43 Blood Type O Positive 04/08/23 21:25 Antibody Screen NEGATIVE 04/08/23 21:25 04/09/23 04/09/23 04/09/23 11:19 07:32 06:39 POC Glucose 79 89 94
[2023-04-09] MEDS ORDERED: BUPIVACAINE/EPINEPHRINE 0.25% 1:200,000 30 ML VIAL ONE (14:41)
[2023-04-09] MEDS ORDERED: ceFAZolin 2,000 MG/15 ML IV PUSH IV ONE (14:54)
[2023-04-09] MEDS ORDERED: ceFAZolin 2000MG 2,000 MG/15 ML SYR IV ONE (14:56)
--- NOTE | 2023-04-09 14:58 | History & Physical Bridge Note ---
Date of Service April 09, 2023 History & Physical Bridge Note I have examined the patient, reviewed the History & Physical and in the interval since the performance of the History & Physical I have noted the following changes of clinical significance: no changes noted
[2023-04-09] MEDS ORDERED: VANCOMYCIN HCL 1000MG/20ML VIAL ONE (15:27)
[2023-04-09] MEDS ORDERED: PROPOFOL IV EMULSION 10 MG/ML 20 ML VIAL IV ONE (16:36)
[2023-04-09] MEDS ORDERED: ePHEDrine sulfate 50 MG/5 ML SYR ONE (16:36)
[2023-04-09] MEDS ORDERED: PHENYLEPHRINE 100MCG/ML 5ML SYR ONE (16:36)
[2023-04-09] MEDS ORDERED: ROCURONIUM BROMIDE 10 MG/ML 5 ML VIAL IV ONE (16:36)
[2023-04-09] MEDS ORDERED: ESMOLOL HCL INJ 10 MG/ML 10ML VIAL IV ONE (16:38)
[2023-04-09] MEDS ORDERED: SUGAMMADEX SODIUM 200 MG/2 ML VIAL IV ONE (16:45)
--- NOTE | 2023-04-09 17:16 | Operative Report ---
PG Post Operative Report Pre & Post Diagnosis Operation Date: 04/09/23 07:00 Pre-Op Diagnosis: Left displaced femoral neck fracture Post-Op Diagnosis: Left displaced femoral neck fracture I identified the patient and participated in the time-out.: Yes Procedure Operation Date: 04/09/23 07:00 Actual Procedures p Left Cemented Bipolar Hip(Left) - Eric Childress MD Surgeon Eric Childress MD Vacuum Drier Operator Adrien Nunn PA-C Estimated Blood Loss 200 Findings Consistent with Post-Op Diagnosis Operative findings revealed displaced comminuted femoral neck fracture. There is no significant underlying hip arthritis. She did have a nonunion/malunion of the greater trochanter which obstructed the femoral neck. Specimens Left femoral head sent for pathology Anesthesia Type General Complications none Disposition Accompanied Patient To Recovery: No Indications Patient is a 62-year-old female with multiple medical comorbidities who sustained a fall yesterday. She had she had cute onset of pain and could not ambulate. X-rays revealed a displaced femoral neck fracture. The patient indicated for surgical treatment/hemiarthroplasty. Description of Procedure Operative implants consist of: 1. DePuy size 3 high offset Clio cemented femoral stem. 2. 10.5 mm centralizer. 3. Small cement restrictor. 4. +5/28 mm metal articular ball. 5. 46 mm bipolar shell and liner. The patient was taken to the operating room, identified, placed on the operating table supine position. All contact areas were appropriately padded. IV antibiotics were provided by the anesthesia team. A general anesthetic was implemented. The patient was then placed in the right lateral decubitus position. An axillary roll was placed. A Stulberg hip positioner was used for positioning. The left hip and leg were then scrubbed with Hibiclens, prepped with ChloraPrep and draped in usual sterile fashion. A posterolateral approach left hip was then performed through a curvilinear incision centered over the greater trochanter. Sharp dissection was carried through subcutaneous tissue down to level the IT band and gluteal fascia. The IT band gluteal fascia were incised longitudinally in line with skin incision. The greater trochanter was extremely enlarged and somewhat in the way. The piriformis and external rotators and the posterior hip joint capsule were then released from the posterior aspect of the hip as a single layer. Great care was taken throughout the procedure protect the sciatic nerve at all times. We had worked around this large hypertrophic greater trochanter segment which made the case a bit more difficult. Hip was then internally rotated. A femoral neck osteotomy cut was made just at the base of the fracture site. The greater trochanter malunion was obstructing the femoral canal somewhat. I did remove the femoral head and sized the acetabulum for size 46. I then used the canal finder to enter the canal. I then used the reamer to lateralize the trochanter a bit in order to open the lateral aspect of the femur up so I could to broach. I then broached given we are able to broach up to a size 3. We elect to place a high implant in the plant due to instability concerns as well as appropriate soft tissue tension. We trialed the hip and the +5 articular ball seem to recreate soft tissue tension appropriately was maximally stable and equalize leg lengths. We elect to place these implants. All trial implants were removed. A cement restrictor was placed distally. I irrigated and cleaned the canal. A double batch Palacos G cement was mixed and injected in the canal. I did add an additional gram of vancomycin to the cement due to the patient's multiple medical comorbidities. A size 3 high offset femoral stem was then placed. Once the cement hardened a +5/28 metal articular ball and a 46 bipolar shell and liner were placed. The hip was located and once again found to be stable. Attention drawn to closing. The wound was irrigated coconuts of pulsatile lavage solution. I did inject locally with 60 cc of half percent Marcaine with epinephrine. The posterior capsule was then repaired with #2 Tycron suture in a [id number] fashion. The IT band gluteal fascia were then closed in 1 PDS suture running fashion through subcutaneous tissue then closed with 2 layers with a deep layer #1 Vicryl suture and subcutaneous tissues with 2 Dexon suture in a buried interrupted fashion. Skin was closed skin kari. A Prevena VAC dressing was applied due to the edematous nature of her soft tissues. The patient was then brought out of general anesthesia and transferred to the recovery room in stable condition. The patient tolerated procedure well and no complications. Adrien Nunn, my physician event sales assistant, was present for the entire procedure. His assistance was essential and required for appropriate patient positioning, prepping and draping, surgical exposure, performing the technical details of the operation, placement the implants, closure of the wound, and placement of the sterile bandage. I attest to the content of the Intraoperative Record and any orders documented therein. Any exceptions are noted below.
--- NOTE | 2023-04-09 17:49 | Anesthesiology Progress Note ---
Date of Service April 09, 2023 Anesthesia Post Procedure Vital Signs Vital Signs: Temp Pulse Pulse Resp BP Pulse Ox O2 Del Method 04/09/23 17:45 36.9 C 111 H 17 122/65 97 Nasal Cannula 04/09/23 17:35 111 H 15 118/73 97 Oxymask 04/09/23 17:25 112 H 17 130/73 92 Oxymask 04/09/23 17:17 37.1 C 111 H 17 130/67 99 Oxymask 04/09/23 13:54 36.8 C 95 H 18 102/64 97 Nasal Cannula 04/09/23 11:51 94 Nasal Cannula 04/09/23 11:39 37.5 C 89 14 124/81 87 L Nasal Cannula 04/09/23 08:16 37.8 C H 94 H 12 123/79 93 Nasal Cannula 04/09/23 07:24 Nasal Cannula 04/09/23 06:01 37.6 C H 102 H 16 129/74 92 Nasal Cannula 04/08/23 20:21 36.9 C 79 16 111/72 94 Nasal Cannula O2 Flow Rate 04/09/23 17:45 4 04/09/23 17:35 5 04/09/23 17:25 10 04/09/23 17:17 10 04/09/23 13:54 2 04/09/23 11:51 2 04/09/23 11:39 1 04/09/23 08:16 1 04/09/23 07:24 1 04/09/23 06:01 1 04/08/23 20:21 1 Pain Intensity Left Hip: Pain Intensity: 8 Transfer of Care Handoff Completed per policy Notes Mental Status: alert / awake / arousable and participated in evaluation Patient Amnestic to Procedure: Yes Nausea / Vomiting: adequately controlled Pain: adequately controlled Airway Patency, RR, SpO2: stable & adequate BP & HR: stable & adequate Hydration State: stable & adequate Anesthetic Complications: no major complications apparent
--- NOTE | 2023-04-09 19:00 | XRay Report ---
XR hip LT min 2V HISTORY: 62 years-old Female Post-Operative implant position left hip arthroplasty COMPARISON: 04/08/2023 TECHNIQUE: 2 views of the left hip FINDINGS: Total joint arthroplasty demonstrates satisfactory alignment. Lateral skin kari with expected post operative soft tissue swelling and deep tissue air. Chronic sclerosis of the greater trochanter. No a cute fracture or malalignment. IMPRESSION: Total joint arthroplasty with expected postoperative changes. ACT 112: Negative or not required by law. The above report was generated using voice recognition software. It may contain grammatical, syntax o r spelling errors. Electronically signed by: Timothy Tracy M.D. 04/09/2023 6:59 PM
[2023-04-09] MEDS: ATORVASTATIN 40 MG TAB PO SCH (20:06)
[2023-04-09] MEDS: traZODone HCL 50 MG TAB PO SCH (20:07)
[2023-04-09] MEDS: PANTOprazole 40 MG TAB PO SCH (20:13)
[2023-04-09] MEDS ORDERED: LANTUS PER UNIT CHARGE SC SCH (21:00)
[2023-04-09] MEDS: ceFAZolin 2000MG 2,000 MG/15 ML SYR IV SCH (22:45)
--- NOTE | 2023-04-09 23:35 | Hospitalist Progress Note ---
Date of Service April 09, 2023 Assessment & Plan (1) Left displaced femoral neck fracture: Plan: Fall in a 62 yo female resulting in a left displaced femoral neck fracture . S/P repair Resumed apixaban, (2) Type 2 diabetes mellitus: Plan: Consult glycemic control. Place on short acting insullin ACHSand Insulin glargine (3) Diastolic CHF: Plan: Holding diuretics. Patient does not appear to be in acute CHF (4) Hypothyroidism: Plan: resume home meds (5) HTN (hypertension): Plan: resume home meds Plan DVT: apixaban Admission and Anticipated Discharge Date Admission Date: April 08, 2023 Subjective 62 yo female reports tolerating the procedure. She reports being tired. Review of Systems Review of Systems: All systems reviewed & are unremarkable except as noted in HPI & below Physical Exam Physical Exam: General: A&Ox3. NAD. Cooperative. HEENT: Atraumatic, normocephalic. Vision/hearing intact Pulm: CTA B/L Cardiac: irir, -mrg. Radial pulses intact and symmetrical. Abdominal: Nontender, nondistended, soft. BS present. Results & Data Results & Data Vital Signs (Past 12 Hours) Vital Signs Temp Pulse Pulse Resp BP Pulse Ox O2 Del Method 04/09/23 21:18 36.4 C L 89 16 100/63 99 Nasal Cannula 04/09/23 20:03 36.4 C L 90 16 103/66 96 Nasal Cannula 04/09/23 19:15 36.4 C L 96 H 18 112/68 98 Room Air 04/09/23 18:45 36.6 C 105 H 18 107/62 96 Room Air 04/09/23 18:45 37.1 C 102 H 20 96 Nasal Cannula 04/09/23 18:15 37.5 C 113 H 20 120/67 100 Nasal Cannula 04/09/23 17:45 36.9 C 111 H 17 122/65 97 Nasal Cannula 04/09/23 17:35 111 H 15 118/73 97 Oxymask 04/09/23 17:25 112 H 17 130/73 92 Oxymask 04/09/23 17:17 37.1 C 111 H 17 130/67 99 Oxymask 04/09/23 13:54 36.8 C 95 H 18 102/64 97 Nasal Cannula 04/09/23 11:51 94 Nasal Cannula 04/09/23 11:39 37.5 C 89 14 124/81 87 L Nasal Cannula O2 Flow Rate 04/09/23 21:18 2 04/09/23 20:03 2 04/09/23 19:15 04/09/23 18:45 04/09/23 18:45 2 04/09/23 18:15 4 04/09/23 17:45 4 04/09/23 17:35 5 04/09/23 17:25 10 04/09/23 17:17 10 04/09/23 13:54 2 04/09/23 11:51 2 04/09/23 11:39 1 PG Care Time/CCT Total # of Minutes Spent Total Time Spent with Patient: Total time spent is greater than 50% in coordination of care (as documented) at patient's floor/unit and/or counseling patient: Coding Level of Care Code 71720 SUB INP/OBS CARE MIN Diagnoses Left displaced femoral neck fracture S72.002A Type 2 diabetes mellitus E11.69; Z79.4 Diabetes mellitus penitentiary insulin use: with penitentiary use Diabetes mellitus complication status: with other specified complication Diastolic CHF I50.30 Hypothyroidism E03.9 HTN (hypertension) I10 (2) Type 2 diabetes mellitus Diabetes mellitus penitentiary insulin use: with penitentiary use Diabetes mellitus complication status: with other specified complication Qualified Code(s): E11.69 - Type 2 diabetes mellitus with other specified complication; Z79.4 - intermediate card tender (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
[2023-04-10] MEDS: LEVOTHYROXINE SODIUM 50 MCG TABLET PO SCH (05:29)
--- NOTE | 2023-04-10 05:49 | Electrocardiogram Report ---
Test Reason : Blood Pressure : / mmHG Vent. Rate : 076 BPM Atrial Rate : 076 BPM P-R Int : 174 ms QRS Dur : 092 ms QT Int : 364 ms P-R-T Axes : 000 -34 029 degrees QTc Int : 409 ms Atrial flutter Left axis deviation Low voltage QRS Possible Anterior infarct (cited on or before 27-NOV-2022) Abnormal ECG When compared with ECG of 27-NOV-2022 14:23, No significant change Confirmed by Amaury Perry ([id number]) on 04/10/2023 5:49:03 AM Referred By: REFERRED SELF Confirmed By:Amaury Perry
[2023-04-10] MEDS: MoRPHine SULFATE 4 MG/ML 1 ML CARP\\VIAL IV PRN ×3 (07:47→16:17)
[2023-04-10] MEDS: ceFAZolin 2000MG 2,000 MG/15 ML SYR IV SCH (07:53)
[2023-04-10 08:06] LABS: Calcium 7.8 mg/dl (8.6-10.3); Potassium 4.9 mmol/L (3.5-5.1)
[2023-04-10 08:11] LABS: Creatinine Clr Calc Pharmacy 20.2 ml/min; Est GFR (African American) 14.3 ml/min; Est GFR (Non-African American) 12.4 ml/min
[2023-04-10] MEDS: METOPROLOL SUCC 25MG EXT REL TAB PO SCH (08:20)
[2023-04-10] MEDS: busPIRone 15 MG TAB PO SCH ×2 (08:20→19:28)
[2023-04-10] MEDS: fluvoxaMINE MALEATE 50 MG TAB PO SCH ×2 (08:20→19:27)
[2023-04-10] MEDS: PREGABALIN 50 MG CAP PO SCH ×2 (08:23→21:09)
[2023-04-10] MEDS: INSULIN ASPART PER UNIT CHARGE SC SCH ×4 (09:16→21:09)
[2023-04-10 09:32] LABS: Basophils # (auto) 0.02 K/uL (0.00-0.20); Basophils % (auto) 0.2 %; Eosinophils # (auto) 0.03 K/uL (0.00-0.50); Eosinophils % (auto) 0.3 %; Hematocrit (blood only) 28.4 % (37.0-47.0); Hemoglobin 8.7 g/dl (12.0-16.0); Immature Granulocytes # (auto) 0.07 K/uL (0.01-0.20); Immature Granulocytes % (auto) 0.6 %; Lymphocytes # (auto) 1.29 K/uL (1.20-3.40); Lymphocytes % (auto) 11.7 %; Mean Corpuscular Hemoglobin 26.5 pg (25.0-34.0); Mean Corpuscular Hgb Conc 30.6 g/dL (32.0-36.0); Mean Corpuscular Volume 86.6 fL (80.0-100.0); Mean Platelet Volume 13.4 fL (9.4-12.4); Monocytes # (auto) 0.66 K/uL (0.11-0.59); Neutrophils # (auto) 8.96 K/uL (1.40-6.50); Neutrophils % (auto) 81.2 %; Platelet Count 90 K/uL (130-400); RDW Coefficient of Variation 14.8 % (11.5-14.5); RDW Standard Deviation 47.3 fL (36.4-46.3); Red Blood Count 3.28 M/uL (4.20-5.40); White Blood Count 11.03 K/ul (4.8-10.8)
--- NOTE | 2023-04-10 10:38 | Pharmacy Report ---
Pharmacy Glycemic Short Note 2 - Date of Service April 10, 2023 - Glycemic Short BSG Results (Last 24 hours): 04/09/23 04/09/23 04/09/23 10:52 11:19 17:19 Glucose 84 POC Glucose 79 78 04/09/23 04/10/23 04/10/23 20:06 07:22 07:38 Glucose 125 H POC Glucose 206 H 116 H OUTPATIENT ANTIDIABETIC REGIMEN: * Lantus 4-6 units HS * Novolog 5-8 units with meals HbA1C = 7% (03/06/23) ASSESSMENT: 04/10/23: * POD #1 s/p cemented bipolar hemiarthoplasty of left hip * No perioperative steroids given * BSGs have been very well-controlled w/ little to no insulin thus far, however did trend up to 206 mg/dL last evening * Intended to give 4 units of basal last evening, but patient refused both basal and bolus insulin at that time * Fasting BSG of 116 mg/dL this morning - will utilize low-dose basal scale this evening 04/08/23: * Ms Arellano is a 62 y/o F with a PMH of T2DM who presents with a fall and hip fracture. * BSG in ER this morning was 170 mg/dL. (roughly 1100) * Previous admission in October 2022, patient tolerated Lantus 4 units HS + Novolog CF 45 CR 15 and blood sugars were well controlled. * Will resume this regimen with slightly tighter CR. At this time patient has diet ordered. PLAN FOR INPATIENT GLYCEMIC CONTROL: * Basal insulin * 0-2-4 units SC HS based on BSG (see EHR for details) * Bolus insulin * NovoLog per scale ACHS or Q6hrs while NPO * Goal Range: Low 110 mg/dL - High 140 mg/dL * Correction Factor: 45 mg/dL/unit * Nutritional / Prandial insulin per carb ratio of 1 unit per 10 grams CHO consumed
[2023-04-10] MEDS: SODIUM CHLORIDE 0.9% 1,000 ML IV SCH (14:21)
--- NOTE | 2023-04-10 14:32 | Surgery Progress Note ---
Date of Service April 10, 2023 Assessment & Plan (1) Left displaced femoral neck fracture: (2) History of partial replacement of left hip joint using bipolar prosthesis: Plan: 62-year-old female with multiple medical comorbidities now postop day 1 from a left cemented bipolar hip arthroplasty for fracture. She is doing pretty well. Hip pain is controlled. Her hips located. She is neurologically intact. Plan: 1. DVT prophylaxis including thigh-high teds SCDs and resume her anticoagulation 24 hours postop. 2. PT OT. Weight-bear as tolerated left total hip protocol. 3. Pain control doing okay with current pain regimen. 4. Anemia. She is asymptomatic. I would just follow this. 1 avoid transfusion if possible. She does have chronic renal insufficiency so Mente may not mount a real good response. Try and avoid allergy and a blood to would de crease risk of infection. 5. Disposition she is orthopedically okay for discharge anytime medically stable. 90 see him back 2 to 3 weeks out from surgery date. Any orthopedic questions can be directly [phone] Admission and Anticipated Discharge Date Admission Date: April 08, 2023 Subjective 62-year-old female with multiple medical comorbidities now postop day 1 from a left cemented bipolar hip arthroplasty for fracture. She has a history of multiple falls. She is doing pretty well. Her major complaint today is that her pain is just on clinical work like she would like them to help. Hip pain is pretty good. Very manageable. She been up and says she has been ambulating with assistance. Physical Exam Physical Exam: Physical examination of the left hip reveals the Prevena VAC dressing to be in place. Leg lengths are equal. Thigh is soft and supple. She can dorsiflex and plantarflex her foot appropriately. She is neurologically intact. Results & Data Vital Signs (Past 12 Hours) Vital Signs Temp Pulse Resp BP Pulse Ox O2 Del Method O2 Flow Rate 04/10/23 14:02 97 04/10/23 12:12 37.1 C 103 H 18 122/71 100 Room Air 04/10/23 07:40 37.1 C 98 H 18 127/80 97 Nasal Cannula 2 04/10/23 05:23 37.2 C 90 15 119/76 98 Nasal Cannula 2 Laboratory Results Hemoglobin is 8.7. Her hematocrit is 28.4 PG Care Time/CCT Total # of Minutes Spent Total Time Spent with Patient: Total time spent is greater than 50% in coordination of care (as documented) at patient's floor/unit and/or counseling patient: Coding Level of Care Code 49971 Post Operative Follow-Up Diagnoses Left displaced femoral neck fracture S72.002A History of partial replacement of left hip joint using bipolar prosthesis Z96.642
[2023-04-10] MEDS: APIXABAN 2.5 MG TAB PO SCH (18:14)
[2023-04-10] MEDS: ATORVASTATIN 40 MG TAB PO SCH (19:28)
[2023-04-10] MEDS: PANTOprazole 40 MG TAB PO SCH (19:30)
[2023-04-10] MEDS: MICONAZOLE NITRATE POWDER 85 GM EXT PRN (20:24)
[2023-04-10] MEDS ORDERED: LANTUS PER UNIT CHARGE SC SCH (21:00)
[2023-04-10] MEDS: traZODone HCL 50 MG TAB PO SCH (21:09)
[2023-04-10 21:37] LABS: Hematocrit (blood only) 27.2 % (37.0-47.0); Hemoglobin 8.3 g/dl (12.0-16.0)
--- NOTE | 2023-04-10 21:42 | Hospitalist Progress Note ---
Date of Service April 10, 2023 Assessment & Plan (1) Left displaced femoral neck fracture: Plan: Fall in a 62 yo female resulting in a left displaced femoral neck fracture . S/P repair Resumed apixaban at lower dose, will resume full dose at discharge. Awaiting placement. Ordered x ray of elbow for left elbow pain. (2) Type 2 diabetes mellitus: Plan: Consult glycemic control. Place on short acting insullin ACHSand Insulin glargine (3) Diastolic CHF: Plan: Holding diuretics. Patient does not appear to be in acute CHF (4) Hypothyroidism: Plan: resume home meds (5) HTN (hypertension): Plan: resume home meds Plan DVT: apixaban Admission and Anticipated Discharge Date Admission Date: April 08, 2023 Subjective Patient reports having pain in her left elbow and is requesting an x ray. Patient denies any other symptoms. Review of Systems Review of Systems: All systems reviewed & are unremarkable except as noted in HPI & below Physical Exam Physical Exam: General: A&Ox3. NAD. Cooperative. HEENT: Atraumatic, normocephalic. Vision/hearing intact Pulm: CTA B/L Cardiac: irir, -mrg. Radial pulses intact and symmetrical. Abdominal: Nontender, nondistended, soft. BS present. Results & Data Results & Data Vital Signs (Past 12 Hours) Vital Signs Temp Pulse Resp BP Pulse Ox O2 Del Method O2 Flow Rate 04/10/23 20:51 37.2 C 75 17 105/70 97 Nasal Cannula 2 04/10/23 15:38 36.7 C 83 18 122/79 100 Room Air 04/10/23 14:02 97 04/10/23 12:12 37.1 C 103 H 18 122/71 100 Room Air PG Care Time/CCT Total # of Minutes Spent Total Time Spent with Patient: Total time spent is greater than 50% in coordination of care (as documented) at patient's floor/unit and/or counseling patient: Coding Level of Care Code 25577 SUB INP/OBS CARE 2/35MIN Diagnoses Left displaced femoral neck fracture S72.002A Type 2 diabetes mellitus E11.69; Z79.4 Diabetes mellitus complication status: with other specified complication Diabetes mellitus terminal worker insulin use: with skilled nursing use Diastolic CHF I50.30 Hypothyroidism E03.9 HTN (hypertension) I10 (2) Type 2 diabetes mellitus Diabetes mellitus complication status: with other specified complication Diabetes mellitus skilled nursing insulin use: with skilled nursing use Qualified Code(s): E11.69 - Type 2 diabetes mellitus with other specified complication; Z79.4 - jail (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
[2023-04-11] MEDS: APIXABAN 2.5 MG TAB PO SCH ×2 (05:26→17:41)
[2023-04-11] MEDS: LEVOTHYROXINE SODIUM 50 MCG TABLET PO SCH (05:26)
--- NOTE | 2023-04-11 07:13 | XRay Report ---
XR elbow LT min 3V routine HISTORY: 62 years-old Female elbow injury acute left elbow pain COMPARISON: None TECHNIQUE: 3 views of the left elbow FINDINGS: Arterial calcifications. IV catheter. Partially imaged shoulder prosthesis. No acute fracture, disloc ation or large joint effusion. Mild osteoarthritis with mild dorsal soft tissue swelling. IMPRESSION: No acute fracture or dislocation. ACT 112: Negative or not required by law. The above report was generated using voice recognition software. It may contain grammatical, syntax o r spelling errors. Electronically signed by: Timothy Tracy M.D. 04/11/2023 7:12 AM
[2023-04-11 08:00] LABS: Basophils # (auto) 0.02 K/uL (0.00-0.20); Basophils % (auto) 0.3 %; Eosinophils # (auto) 0.05 K/uL (0.00-0.50); Eosinophils % (auto) 0.7 %; Hemoglobin 7.7 g/dl (12.0-16.0); Immature Granulocytes # (auto) 0.05 K/uL (0.01-0.20); Immature Granulocytes % (auto) 0.7 %; Lymphocytes # (auto) 0.92 K/uL (1.20-3.40); Lymphocytes % (auto) 12.2 %; Mean Corpuscular Hemoglobin 26.5 pg (25.0-34.0); Mean Corpuscular Hgb Conc 30.8 g/dL (32.0-36.0); Mean Corpuscular Volume 85.9 fL (80.0-100.0); Mean Platelet Volume 12.5 fL (9.4-12.4); Monocytes # (auto) 0.46 K/uL (0.11-0.59); Monocytes % (auto) 6.1 %; Neutrophils # (auto) 6.06 K/uL (1.40-6.50); Platelet Count 97 K/uL (130-400); RDW Coefficient of Variation 14.9 % (11.5-14.5); RDW Standard Deviation 47.2 fL (36.4-46.3); Red Blood Count 2.91 M/uL (4.20-5.40); White Blood Count 7.56 K/ul (4.8-10.8)
[2023-04-11] MEDS: MoRPHine SULFATE 4 MG/ML 1 ML CARP\\VIAL IV PRN ×2 (08:12→14:55)
[2023-04-11 08:19] LABS: RBC Morphology Unremarkable
[2023-04-11 08:33] LABS: BUN Creatinine Ratio 22.1 (10-20); Creatinine Clr Calc Pharmacy 18.5 ml/min; Est GFR (African American) 12.9 ml/min; Est GFR (Non-African American) 11.2 ml/min; Potassium 5.1 mmol/L (3.5-5.1)
[2023-04-11] MEDS ORDERED: SODIUM CHLORIDE 0.9% 250 ML IV PRN (08:59)
--- NOTE | 2023-04-11 09:03 | Hospitalist Progress Note ---
Date of Service April 11, 2023 Assessment & Plan (1) Left displaced femoral neck fracture: Plan: Fall in a 62 yo female resulting in a left displaced femoral neck fracture . S/P repair 04/09 with biploar hip replacement Resumed apixaban at lower dose, will resume full dose at discharge. acute blood loss anemia second unit of blood transfused on 04/11/[address] Ordered x ray of elbow for left elbow pain. (2) Type 2 diabetes mellitus: Plan: Consult glycemic control. Place on short acting insulin ACHS and Insulin glargine mahnaz with ckd4 patient's hemoglobin did increase this is likely attributed to a complication of her diabetes patient will be given additional blood and follow renal function (3) Diastolic CHF: Plan: Holding diuretics. Patient does not appear to be in acute CHF with anemia and worsened renal function will transfuse additional blood on 04/11/2023 Plan DVT: apixaban Admission and Anticipated Discharge Date Admission Date: April 08, 2023 Subjective patient is seen posttransfusion. Complains of some tremor not related to any alcohol use. States she feels fatigued. Physical Exam Physical Exam: She is awake alert appropriate no focal loss eyes exhibit no signs of tremor intention or at rest card exam is regular lungs are clear abdomen is NABS soft her distal extremities are without edema good peripheral pulses are in place Results & Data Results & Data Vital Signs (Past 12 Hours) Vital Signs Temp Pulse Resp BP Pulse Ox O2 Del Method O2 Flow Rate 04/11/23 07:34 98.6 F 93 H 107/72 100 Nasal Cannula 04/11/23 06:16 98.8 F 94 H 16 111/75 97 Nasal Cannula 2 Laboratory Results reviewed CBC reviewed chemistry PG Care Time/CCT Total # of Minutes Spent Total Time Spent with Patient: Total time spent is greater than 50% in coordination of care (as documented) at patient's floor/unit and/or counseling patient: Coding Level of Care Code 97539 SUB INP/OBS CARE 3/50MIN Diagnoses Left displaced femoral neck fracture S72.002A Type 2 diabetes mellitus E11.69; Z79.4 Diabetes mellitus complication status: with other specified complication Diabetes mellitus mcfp insulin 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
[2023-04-11] MEDS: INSULIN ASPART PER UNIT CHARGE SC SCH ×4 (09:17→21:12)
[2023-04-11] MEDS: METOPROLOL SUCC 25MG EXT REL TAB PO SCH (10:05)
[2023-04-11] MEDS: PREGABALIN 50 MG CAP PO SCH ×2 (10:05→21:20)
[2023-04-11] MEDS: busPIRone 15 MG TAB PO SCH ×2 (10:05→21:14)
[2023-04-11] MEDS: fluvoxaMINE MALEATE 50 MG TAB PO SCH ×2 (10:06→21:13)
--- NOTE | 2023-04-11 14:13 | Pharmacy Report ---
Pharmacy Glycemic Short Note 2 - Date of Service April 11, 2023 - Glycemic Short BSG Results (Last 24 hours): 04/10/23 04/10/23 04/11/23 17:02 20:48 07:19 Glucose POC Glucose 211 H 215 H 159 H 04/11/23 04/11/23 07:35 11:36 Glucose 153 H POC Glucose 207 H OUTPATIENT ANTIDIABETIC REGIMEN: * Lantus 4-6 units HS * Novolog 5-8 units with meals HbA1C = 7% (03/06/23) ASSESSMENT: 04/11/23: * Jerri received 17 units of insulin yesterday of which 2 were basal * Fasting BSG slightly above goal range, will increase basal insulin slightly * Mealtime BSGs elevated, will tighten Novolog parameters * Serum creatinine uptrending, will monitor for insulin accumulation, no additional glycemic stressors noted at this time. 04/10/23: * POD #1 s/p cemented bipolar hemiarthoplasty of left hip * No perioperative steroids given * BSGs have been very well-controlled w/ little to no insulin thus far, however did trend up to 206 mg/dL last evening * Intended to give 4 units of basal last evening, but patient refused both basal and bolus insulin at that time * Fasting BSG of 116 mg/dL this morning - will utilize low-dose basal scale this evening 04/08/23: * Ms Arellano is a 62 y/o F with a PMH of T2DM who presents with a fall and hip fracture. * BSG in ER this morning was 170 mg/dL. (roughly 1100) * Previous admission in October 2022, patient tolerated Lantus 4 units HS + Novolog CF 45 CR 15 and blood sugars were well controlled. * Will resume this regimen with slightly tighter CR. At this time patient has diet ordered. PLAN FOR INPATIENT GLYCEMIC CONTROL: * Basal insulin * Lantus 3 units SC HS * Bolus insulin * NovoLog per scale ACHS or Q6hrs while NPO * Goal Range: Low 110 mg/dL - High 140 mg/dL * Correction Factor: 45 mg/dL/unit * Nutritional / Prandial insulin per carb ratio of 1 unit per 8 grams CHO consumed
--- NOTE | 2023-04-11 15:01 | Surgery Progress Note ---
Date of Service April 11, 2023 Assessment & Plan (1) History of partial replacement of left hip joint using bipolar prosthesis: Plan: 62-year-old female with multiple medical comorbidities now postop day 2 from left cemented bipolar hip arthroplasty for fracture. Orthopedically she is doing fine. Pain is controlled. Hips located. She is currently getting some blood. She is got chronic renal disease and likely has difficulty stimulating a response to anemia. Plan: Continue PT OT. She can be fully weightbearing as tolerated. Needs to continue hip precautions. Blood transfusion as per medicine. Should try and limit transfusion is much as possible to limit increased risk of infection. She is orthopedically okay for discharge anytime medically stable. Continue DVT prophylaxis including her thigh-high teds, SCDs, and anticoagulation. I need to see her back 2 to 3 weeks from surgery date. Any orthopedic questions can be direct me [phone] Admission and Anticipated Discharge Date Admission Date: April 08, 2023 Subjective 62-year-old female postop day 2 from a left cemented bipolar hip arthroplasty for fracture. Orthopedically she is doing pretty well. Pain seems to be controlled. She is currently getting some blood. Physical Exam Physical Exam: Physical examination was a pleasant middle-age female. She is lying in bed looks pretty comfortable but had to wake her this morning. Examination left hip reveals a Prevena VAC dressing to be in place. Thigh is soft and supple. Leg lengths are equal. She is neurologically intact. Results & Data Vital Signs (Past 12 Hours) Vital Signs Temp Pulse Pulse Resp BP BP Pulse Ox 04/11/23 13:13 36.4 C L 78 18 110/72 100 04/11/23 11:54 36.8 C 91 H 16 115/74 100 04/11/23 10:55 36.7 C 78 121/74 97 04/11/23 10:54 36.8 C 97 H 18 99/67 L 93 04/11/23 10:24 36.6 C 92 H 18 110/74 94 04/11/23 10:09 36.8 C 78 18 121/74 97 04/11/23 09:45 36.7 C 95 H 18 121/66 97 04/11/23 07:34 37 C 93 H 107/72 100 04/11/23 06:16 37.1 C 94 H 16 111/75 97 O2 Del Method O2 Flow Rate 04/11/23 13:13 04/11/23 11:54 04/11/23 10:55 Room Air 04/11/23 10:54 2 04/11/23 10:24 04/11/23 10:09 0 04/11/23 09:45 0 04/11/23 07:34 Nasal Cannula 04/11/23 06:16 Nasal Cannula 2 PG Care Time/CCT Total # of Minutes Spent Total Time Spent with Patient: Total time spent is greater than 50% in coordination of care (as documented) at patient's floor/unit and/or counseling patient: Coding Level of Care Code None Diagnoses History of partial replacement of left hip joint using bipolar prosthesis Z96.642
[2023-04-11] MEDS ORDERED: LANTUS PER UNIT CHARGE SC SCH (21:00)
[2023-04-11] MEDS: PANTOprazole 40 MG TAB PO SCH (21:13)
[2023-04-11] MEDS: ATORVASTATIN 40 MG TAB PO SCH (21:14)
[2023-04-11] MEDS: traZODone HCL 50 MG TAB PO SCH (21:26)
[2023-04-12] MEDS: LEVOTHYROXINE SODIUM 50 MCG TABLET PO SCH (05:38)
[2023-04-12] MEDS: APIXABAN 2.5 MG TAB PO SCH ×2 (05:39→18:08)
--- NOTE | 2023-04-12 05:54 | Electrocardiogram Report ---
Test Reason : Blood Pressure : / mmHG Vent. Rate : 091 BPM Atrial Rate : 134 BPM P-R Int : 000 ms QRS Dur : 092 ms QT Int : 370 ms P-R-T Axes : 000 -27 057 degrees QTc Int : 455 ms Atrial flutter Possible Anterior infarct (cited on or before 27-NOV-2022) Abnormal ECG When compared with ECG of 08-APR-2023 03:21, No significant change Confirmed by Amaury Perry ([id number]) on 04/12/2023 5:54:02 AM Referred By: REFERRED SELF Confirmed By:Amaury Perry
[2023-04-12 07:50] LABS: Basophils # (auto) 0.02 K/uL (0.00-0.20); Basophils % (auto) 0.4 %; Eosinophils # (auto) 0.07 K/uL (0.00-0.50); Eosinophils % (auto) 1.3 %; Hematocrit (blood only) 26.5 % (37.0-47.0); Hemoglobin 8.1 g/dl (12.0-16.0); Immature Granulocytes # (auto) 0.03 K/uL (0.01-0.20); Immature Granulocytes % (auto) 0.5 %; Lymphocytes # (auto) 0.88 K/uL (1.20-3.40); Lymphocytes % (auto) 15.7 %; Mean Corpuscular Hemoglobin 26.8 pg (25.0-34.0); Mean Corpuscular Hgb Conc 30.6 g/dL (32.0-36.0); Mean Corpuscular Volume 87.7 fL (80.0-100.0); Monocytes # (auto) 0.38 K/uL (0.11-0.59); Monocytes % (auto) 6.8 %; Neutrophils # (auto) 4.22 K/uL (1.40-6.50); Neutrophils % (auto) 75.3 %; Platelet Count 103 K/uL (130-400); Red Blood Count 3.02 M/uL (4.20-5.40)
--- NOTE | 2023-04-12 09:21 | Pharmacy Report ---
Pharmacy Glycemic Short Note 2 - Date of Service April 12, 2023 - Glycemic Short BSG Results (Last 24 hours): 04/11/23 04/11/23 04/11/23 11:36 16:43 20:33 POC Glucose 207 H 183 H 185 H 04/12/23 07:49 POC Glucose 147 H OUTPATIENT ANTIDIABETIC REGIMEN: * Lantus 4-6 units HS * Novolog 5-8 units with meals HbA1C = 7% (03/06/23) ASSESSMENT: 04/12/23: * BSGs elevated yesterday despite tightening of carb ratio * Patient received 12 units of insulin (3 units of basal and 9 units of prandial/correctional bolus) * Will tighten CF today and allow for increased basal insulin this evening if needed 04/11/23: * Jerri received 17 units of insulin yesterday of which 2 were basal * Fasting BSG slightly above goal range, will increase basal insulin slightly * Mealtime BSGs elevated, will tighten Novolog parameters * Serum creatinine uptrending, will monitor for insulin accumulation, no additional glycemic stressors noted at this time. 04/10/23: * POD #1 s/p cemented bipolar hemiarthoplasty of left hip * No perioperative steroids given * BSGs have been very well-controlled w/ little to no insulin thus far, however did trend up to 206 mg/dL last evening * Intended to give 4 units of basal last evening, but patient refused both basal and bolus insulin at that time * Fasting BSG of 116 mg/dL this morning - will utilize low-dose basal scale this evening 04/08/23: * Ms Arellano is a 62 y/o F with a PMH of T2DM who presents with a fall and hip fracture. * BSG in ER this morning was 170 mg/dL. (roughly 1100) * Previous admission in October 2022, patient tolerated Lantus 4 units HS + Novolog CF 45 CR 15 and blood sugars were well controlled. * Will resume this regimen with slightly tighter CR. At this time patient has diet ordered. PLAN FOR INPATIENT GLYCEMIC CONTROL: * Basal insulin - allow for increased basal * Lantus 3-4 units SC HS (4 units if BSG 180 mg/dL or above) * Bolus insulin - tighten CF * NovoLog per scale ACHS or Q6hrs while NPO * Goal Range: Low 110 mg/dL - High 140 mg/dL * Correction Factor: 35 mg/dL/unit * Nutritional / Prandial insulin per carb ratio of 1 unit per 8 grams CHO consumed
[2023-04-12] MEDS: busPIRone 15 MG TAB PO SCH ×2 (09:34→20:56)
[2023-04-12] MEDS: fluvoxaMINE MALEATE 50 MG TAB PO SCH ×2 (09:34→20:56)
[2023-04-12] MEDS: METOPROLOL SUCC 25MG EXT REL TAB PO SCH (09:34)
[2023-04-12] MEDS: INSULIN ASPART PER UNIT CHARGE SC SCH ×5 (09:37→21:24)
[2023-04-12] MEDS: PREGABALIN 50 MG CAP PO SCH ×2 (09:37→20:57)
[2023-04-12] MEDS: MoRPHine SULFATE 4 MG/ML 1 ML CARP\\VIAL IV PRN ×2 (09:43→15:10)
[2023-04-12 09:45] LABS: BUN Creatinine Ratio 21.3 (10-20); Calcium 8.1 mg/dl (8.6-10.3); Creatinine Clr Calc Pharmacy 16.4 ml/min; Est GFR (African American) 11.2 ml/min; Est GFR (Non-African American) 9.7 ml/min; Potassium 5.4 mmol/L (3.5-5.1)
[2023-04-12] MEDS ORDERED: PATIROMER CALCIUM SORBITEX 8.4 GM PACK PO ONE (10:59)
[2023-04-12] MEDS ORDERED: EPOETIN ALFA 40,000 UNITS/ML VIAL IV ONE (11:02)
[2023-04-12] MEDS: SODIUM CHLORIDE 0.9% 1,000 ML IV SCH ×2 (11:41→23:42)
--- NOTE | 2023-04-12 12:37 | Nephrology Consultation ---
Date of Consultation April 12, 2023 Assessment & Plan (1) Acute kidney injury: (2) Hyperkalemia: (3) Anemia: (4) Left displaced femoral neck fracture: (5) History of partial replacement of left hip joint using bipolar prosthesis: (6) Chronic kidney disease, stage 4 (severe): Plan 62 y o F with stage IV CKD with moderate degree proteinuria secondary to diabetic nephropathy, baseline creatinine lately around 2.6-2.8, admitted to the hospital with nondisplaced left femoral neck fracture and had SX on 04/09/23. On admission creatinine was slightly above her baseline however over last few days creatinine progressively increased to 4.5 this morning associated with hyperkalemia. Also became anemic with hemoglobin 7.7 yesterday requiring 1 unit of blood transfusion and improvement in hemoglobin to 8.1 this morning. Clinically she looks volume depleted, blood pressure has been low but relatively stable. Recovering well from surgery. -- Continue on IV fluid, Lokelma 10 g x 1 dose, encouraged to increase p.o. intake, low potassium diet -- Epogen 40,000 units x 1 dose today -- Right arm nephrology precaution ( AV fistula in place ) -- Avoid nephrotoxic medications. -- CBC and renal panel in the morning Thank you for the consultation. History of Present Illness Reason for Consultation: PATY, Stage 3B CKD, hyperkalemia, anemia Attending Physician: Jevon Appiah MD History of Present Illness Ms. Jerri Arellano is a 62-year-old F with PMH of stage 3B/4 CKD, HTN, DM, obesity s/p gastric bypass Sx, admitted after a fall at home and left hip fracture. Nephrology consult was requested for management of PATY with history of advanced CKD, hyperkalemia and anemia. EMR records are reviewed in detail during patient's visit. Jerri presented to ER on 04/08/23 for evaluation of left hip pain after a fall at home. She had h/o old fracture to left hip after a fall in May 2022, had surgery and then prolonged rehab stay. Imaging in ER showed displaced left hip fracture and she had cemented bipolar hemiarthroplasty of the left hip on 04/09/2023. Surgery went well. However over last few days her renal function has been slowly declining. Really creatinine was around 3 which is close to her baseline but over last few days renal function progressively worsened and creatinine this morning was 4.5 She also noted to have potassium of 5.4. Hemoglobin was 7.7 and she received 1 unit of blood transfusion and hemoglobin was 8.1 this morning. As an outpatient she has been getting Retacrit 40,000 units monthly for anemia of chronic renal disease. Her blood pressure has been relatively low but stable. She reports poor p.o. intake over last few days as she has been mostly sleeping and complaining of feeling thirsty. Has stage 3B/4 CKD, secondary to diabetic nephropathy. b/l cr lately has been around 2.5 to 2.6 mg/dl, significantly improved since gastric bypass surgery, prior to that creatinine was staying around 3-3.5. She has non nephrotic range proteinuria. Renal ultrasound was unremarkable. Mom had ESRD, was on HD, from Cancer. Non smoker. Had Rt RC AVF placed on 09/07/[address] Ricks. Plan for in [facility] when indicated. Long-standing h/o poorly controlled DM with non proliferative diabetic retinopathy. She has been controlling her diet with decreasing sugary drink and portion size. DM improved. H/O A fib, now SR, on metoprolol and Xarelto. HTN well controlled. Off of SANDRA-inhibitor/ARB, amlodipine due to low blood pressure. Had gastric bypass surgery on 09/14/20, had HD once for PATY and hyperkalemia, recovered well. Lost total >130 lbs since surgery. Has history of diastolic dysfunction and has been on Bumex 2 mg daily at home, follows with CHF clinic. 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 Allergies Allergy/AdvReac Type Severity Reaction Status Date / Time promethazine Allergy Intermediate BROKEN Verified 04/08/23 08:17 CAPILLARIES FACE Iodinated Contrast Media Allergy Unknown Unknown Verified 04/08/23 08:17 [Iodinated Contrast- Oral and IV Dye] Home Medications Medication Instructions Recorded Confirmed Type zinc gluconate 100 mg tablet 100 mg PO HS 07/23/18 04/08/23 History lorazepam 1 mg tablet (Ativan) 1 mg PO BID PRN anxiety 03/24/19 04/08/23 History buspirone 15 mg tablet 15 mg PO BID 11/28/20 04/08/23 History multivitamin (Daily Multi-Vitamin 1 tab PO QAM 04/04/21 04/08/23 History tablet) lancets (OneTouch UltraSoft #400 ea 04/12/21 04/04/23 Rx Lancets) omega-3 fatty acids 1,000 mg 1,000 mg PO QAM 08/21/21 04/08/23 History capsule acetaminophen 325 mg tablet 650 mg PO Q4H PRN fever #14 tabs 06/13/22 04/08/23 Rx trazodone 100 mg tablet 150 mg PO HS 07/09/22 04/08/23 History cyanocobalamin (vitamin B-12) 2,500 mcg PO 2XWK 10/08/22 04/08/23 History 2,500 mcg tablet amoxicillin 500 mg tablet 2,000 mg PO ONCE PRN Prophylaxis 10/30/22 04/08/23 History baclofen 5 mg tablet 5 mg PO TID PRN Muscle Spasm 10/30/22 04/08/23 History blood sugar diagnostic #300 ea 12/10/22 04/04/23 Rx Elderberry 250 mg PO QAM 12/20/22 04/08/23 History L.acidophil-L.casei-B.bifid-B.longum-FOS 2 cap PO QAM 12/20/22 04/08/23 History 2 billion cell-50 mg capsule (Probiotic Blend) amlodipine 10 mg tablet (Norvasc) 5 mg PO QAM 12/20/22 04/08/23 History ascorbic acid (vitamin C) 500 mg 1,000 mg PO QAM 12/20/22 04/08/23 History chewable tablet (Vitamin C) biotin 500 mcg capsule 1,000 mcg PO QAM 12/20/22 04/08/23 History bumetanide 2 mg tablet 2 mg PO QAM 12/20/22 04/08/23 History ergocalciferol (vitamin D2) 1,250 1,250 mcg PO WK 12/20/22 04/08/23 History mcg (50,000 unit) capsule (Vitamin D2) polysaccharide iron complex 150 mg 150 mg PO HS 12/20/22 04/08/23 History iron capsule (Ferrex) ondansetron 4 mg disintegrating 4 mg PO Q8H PRN nausea and 12/21/22 04/08/23 Rx tablet vomiting #14 tabs apixaban 5 mg tablet (Eliquis) 5 mg PO BID #180 tabs 12/24/22 04/08/23 Rx atorvastatin 80 mg tablet 80 mg PO HS #90 tabs 12/24/22 04/08/23 Rx metoprolol succinate 25 mg 25 mg PO DAILY 12/24/22 04/08/23 History tablet,extended release 24 hr hydrocodone 5 mg-acetaminophen 325 1 tab PO Q8H PRN pain #15 tabs 01/14/23 04/08/23 Rx mg tablet epoetin fernando-epbx 40,000 unit/mL 40,000 unit subcut UD 15 days #15 01/15/23 04/08/23 Rx injection solution (Retacrit) mL fenofibrate 160 mg tablet 160 mg PO QAM #90 tabs 01/23/23 04/08/23 Rx levothyroxine 50 mcg tablet 50 mcg PO DAILYBB #90 tabs 01/23/23 04/08/23 Rx pantoprazole 40 mg tablet,delayed 40 mg PO HS #90 tabs 01/23/23 04/08/23 Rx release nystatin 100,000 unit/gram topical 1 applic topical BID #60 grams 01/28/23 04/08/23 Rx powder insulin lispro 100 unit/mL See Rx Instructions subcut TIDM 02/05/23 04/08/23 Rx subcutaneous solution #10 mL insulin syringe-needle U-100 0.5 #400 ea 02/05/23 04/04/23 Rx mL 31 gauge x 5/16" (Easy Comfort Insulin Syringe) Lantus U-100 Insulin 100 unit/mL See Rx Instructions subcut QPM #10 02/06/23 04/08/23 Rx subcutaneous solution (insulin mL glargine) folic acid 1 mg tablet 1 mg PO QAM #90 tabs 02/22/23 04/08/23 Rx fluvoxamine 100 mg tablet 150 mg PO BID 04/08/23 04/08/23 History prednisone 10 mg tablet See Rx Instructions .Route .COMPLEX 04/08/23 04/08/23 History pregabalin 50 mg capsule (Lyrica) 50 mg PO TID #90 caps 04/12/23 Rx Patient History Medical History (Updated 04/12/23 @ 13:54 by Sherrie Kang MD) Acute renal failure (05/23/14) 2013. Kidneys recovered to around CKD III, then function worsened around 04/2020. Anemia due to chronic kidney disease Anxiety and depression Arthralgia of multiple sites Atrial fibrillation and flutter Atrial fibrillation, new onset dx August 2020> cardioversions x2. on eliquis > follows Dr. Fontaine AV fistula September 07, 2020 > right wrist > not on dialysis at present Cardiac murmur Mild TR noted on 2019 echo. Chronic kidney disease, stage 4 (severe) Chronic low back pain Chronic rhinitis CKD (chronic kidney disease) CKD (chronic kidney disease) Claustrophobia Closed fracture of greater trochanter of left femur (06/07/22) 05/2022--currently in PT, no surgery Diabetes IDDM Diabetic nephropathy Diabetic peripheral neuropathy Diabetic retinopathy, nonproliferative Diastolic congestive heart failure Euvolemic on exam at [facility] 09/02/20. follows with Dr. 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 Per [facility] pulm 12/2019, "fairly stable from a pulmonary perspective. She is short of breath with any exertion, however a large part of this is likely related to obesity. Pulmonary functions done 1 year ago showed only a mild restrictive pattern. Diffusion was slightly decreased to 66%. One year ago she did have a normal arterial blood gas with no evidence of CO2 retention." Using PRN 3L, mostly using with exertion, not using every day. Morbid obesity BMI 40.1 Nasal septal deviation Nocturnal hypoxia 2-3L N/C - during night Nontoxic multinodular goiter Obesity hypoventilation syndrome On home oxygen therapy 2L n/c prn sob TRUMAN (obstructive sleep apnea) PRESCRIBED BIPAP-CAN'T TOLERATE-CLAUSTROPHOBIC PAF (paroxysmal atrial fibrillation) Pneumonia hx of, not recently Right sided sciatica Syncope Trochanteric fracture of left femur Vitamin D deficiency Surgical History H/O section x1 History of arthroscopy x2 left shoulder History of bilateral cataract extraction History of cardioversion x2 History of colonoscopy History of dermoid cyst excision History of esophagogastroduodenoscopy (EGD) History of mandibular surgery FULL ROM History of total shoulder replacement LEFT 07/19 2015 fracture Hx of cholecystectomy S/P tooth extraction Status post gastric bypass for obesity 09/14/2020- Dr. Ash- [facility] Family History Daughter Multiple allergies Bipolar disorder Aunt Breast cancer Mother Diabetes Heart disease Hyperthyroidism Hypertension Father Gastric cancer Hearing loss Myocardial infarction Grandfather Heart disease Family/Other Osteoporosis Lung cancer Hypertension Stroke Brother Hypertension Grandmother Ovarian cancer Sister Diabetes Migraine Other No family history of adverse response to anesthesia Denies family history of Prostate cancer Colorectal cancer Uterine cancer Social History Smoking Status: Never smoker Second Hand Exposure: No; Do You Dip or Chew Tobacco: No; Hx Alcohol Use: No Hx Substance Use: No Preferred Language: Persian Communication Ability: Effective Visual Impairment: No Limitations Cold Reduction Roller Required: No Beliefs That Will Affect Care: None marital status: Current Living Situation: Spouse Current Living Situation Comment: Home w/ current occupational status: employed and unemployed Other Information That Helps Us Care for You: No Feels Safe at Home: Yes Safety Concerns: Feels Safe At This Time Childhood Exposure to Second-Hand Smoke: Yes Dental Care, Regularly: Yes Physical Activity Frequency: Does not Exercise Seatbelt Use: always Sunscreen Use: Yes Assistive Devices: Cane and Walker Review of Systems Review of Systems: Detailed review of system was done and pertinent positives and negatives are mentioned above. Physical Exam Constitutional: WD/WN, vitals as above no acute distress Eyes: + anicteric sclerae Neck: normal visual inspection Respiratory: no respiratory distress Auscultation: lungs clear to auscultation bilaterally Cardiovascular: RRR, no murmur, no edema Gastrointestinal (Abdomen): Inspection/Auscultation: abdomen normal to inspection Percussion/Palpation: abdomen soft; abdomen nontender Musculoskeletal: left LE immobile Neurologic: no focal motor deficits Psychiatric: Orientation: alert and oriented x 3 Affect: euthymic affect Results & Data Vital Signs (Past 12 Hours) Vital Signs Temp Pulse Resp BP Pulse Ox O2 Del Method O2 Flow Rate 04/12/23 09:05 37.1 C 99 H 16 110/71 97 Room Air 04/12/23 08:00 Nasal Cannula 3 PG Care Time/CCT Total # of Minutes Spent Total Time Spent with Patient: Total time spent is greater than 50% in coordination of care (as documented) at patient's floor/unit and/or counseling patient: Coding Level of Care Code 19437 INT INP/OBS CARE MIN Diagnoses Acute kidney injury N17.9 Hyperkalemia E87.5 Anemia D64.9 Left displaced femoral neck fracture S72.002A History of partial replacement of left hip joint using bipolar prosthesis Z96.642 Chronic kidney disease, stage 4 (severe) N18.4
--- NOTE | 2023-04-12 17:02 | Hospitalist Progress Note ---
Date of Service April 12, 2023 Assessment & Plan (1) Left displaced femoral neck fracture: Plan: Fall in a 62 yo female resulting in a left displaced femoral neck fracture . S/P repair 04/09 with biploar hip replacement Resumed apixaban at lower dose, will resume full dose at discharge. acute blood loss anemia second unit of blood transfused on 04/11/[address] Ordered x ray of elbow for left elbow pain. (2) Type 2 diabetes mellitus: Plan: Consult glycemic control. Place on short acting insulin ACHS and Insulin glargine mahnaz with ckd4 elevated BUN and CR likley from ATN, will watch hemaglobin as BUN could be from stress GI blood loss, pt will have nephrology consult EPO given as was on as outpt monthly (3) Diastolic CHF: Plan: Holding diuretics. Patient does not appear to be in acute CHF with anemia and worsened renal function will transfuse additional blood on 04/11/2023 Plan DVT: apixaban Admission and Anticipated Discharge Date Admission Date: April 08, 2023 Subjective patient is seen without distress. It was relayed to her that she had escalation of acute kidney injury and some hyperkalemia which will likely delay her discharge until this is beginning to resolve. Additional transfusion without issues Physical Exam Physical Exam: She is awake alert appropriate no focal loss eyes exhibit no signs of tremor intention or at rest card exam is regular lungs are clear abdomen is NABS soft her distal extremities are without edema good peripheral pulses are in place Results & Data Results & Data Vital Signs (Past 12 Hours) Vital Signs Temp Pulse Resp BP Pulse Ox O2 Del Method O2 Flow Rate 04/12/23 14:54 97.9 F 94 H 18 117/79 93 Nasal Cannula 2 04/12/23 09:05 98.8 F 99 H 16 110/71 97 Room Air 04/12/23 08:00 Nasal Cannula 3 Laboratory Results reviewed serology including CBC and chemistry. Hyperkalemia treated with Denise discussion with nephrology prior to consultation initiated erythropoietin therapy. Nephrology will see PG Care Time/CCT Total # of Minutes Spent Total Time Spent with Patient: Total time spent is greater than 50% in coordination of care (as documented) at patient's floor/unit and/or counseling patient: Coding Level of Care Code 49678 SUB INP/OBS CARE 2/35MIN Diagnoses Left displaced femoral neck fracture S72.002A Type 2 diabetes mellitus E11.69; Z79.4 Diabetes mellitus halfway insulin use: with computer terminal operator use Diabetes mellitus complication status: with other specified complication Diastolic CHF I50.30 (2) Type 2 diabetes mellitus Diabetes mellitus computer terminal operator insulin use: with computer terminal operator use Diabetes mellitus complication status: with other specified complication Qualified Code(s): E11.69 - Type 2 diabetes mellitus with other specified complication; Z79.4 - terminal operations supervisor (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
[2023-04-12 19:17] LABS: Appearance Urine Clear (Clear); Bacteria Urine Automated Negative (Negative); Bilirubin Urine Negative (Negative); Blood Urine Negative (Negative); Color Urine Yellow; Glucose Urine UA Negative (Negative); Ketones Urine Negative (Negative); Leukocyte Esterase Urine Trace (Negative); Nitrite Urine Negative (Negative); Protein Urine 1+ (Negative); RBC Urine Automated 0-4 /hpf (0-4); Specific Gravity Urine 1.016 (1.000-1.030); Urobilinogen Urine Negative (Negative)
[2023-04-12] MEDS: ATORVASTATIN 40 MG TAB PO SCH (20:56)
[2023-04-12] MEDS: PANTOprazole 40 MG TAB PO SCH (20:56)
[2023-04-12] MEDS: traZODone HCL 50 MG TAB PO SCH (20:57)
[2023-04-12] MEDS: LANTUS PER UNIT CHARGE SC SCH (21:24)
[2023-04-13] MEDS: LEVOTHYROXINE SODIUM 50 MCG TABLET PO SCH (05:25)
[2023-04-13] MEDS: APIXABAN 2.5 MG TAB PO SCH ×2 (05:25→18:01)
[2023-04-13 07:42] LABS: Basophils # (auto) 0.01 K/uL (0.00-0.20); Basophils % (auto) 0.2 %; Eosinophils # (auto) 0.07 K/uL (0.00-0.50); Eosinophils % (auto) 1.5 %; Hematocrit (blood only) 24.6 % (37.0-47.0); Hemoglobin 7.4 g/dl (12.0-16.0); Immature Granulocytes # (auto) 0.04 K/uL (0.01-0.20); Immature Granulocytes % (auto) 0.8 %; Lymphocytes # (auto) 0.99 K/uL (1.20-3.40); Lymphocytes % (auto) 20.6 %; Mean Corpuscular Hemoglobin 26.7 pg (25.0-34.0); Mean Corpuscular Hgb Conc 30.1 g/dL (32.0-36.0); Mean Corpuscular Volume 88.8 fL (80.0-100.0); Mean Platelet Volume 11.7 fL (9.4-12.4); Monocytes # (auto) 0.35 K/uL (0.11-0.59); Monocytes % (auto) 7.3 %; Neutrophils # (auto) 3.35 K/uL (1.40-6.50); Neutrophils % (auto) 69.6 %; Platelet Count 99 K/uL (130-400); RDW Coefficient of Variation 15.1 % (11.5-14.5); RDW Standard Deviation 49.5 fL (36.4-46.3); Red Blood Count 2.77 M/uL (4.20-5.40); White Blood Count 4.81 K/ul (4.8-10.8)
[2023-04-13 08:09] LABS: RBC Morphology Unremarkable
[2023-04-13 08:10] LABS: Albumin Level 2.5 gm/dl (3.4-5.0); BUN Creatinine Ratio 23.1 (10-20); Calcium 7.9 mg/dl (8.6-10.3); Creatinine Clr Calc Pharmacy 17.4 ml/min; Est GFR (Non-African American) 10.3 ml/min; Phosphorus 6.7 mg/dl (2.5-4.9)
[2023-04-13] MEDS: INSULIN ASPART PER UNIT CHARGE SC SCH ×4 (09:04→21:23)
[2023-04-13] MEDS: fluvoxaMINE MALEATE 50 MG TAB PO SCH ×2 (09:05→21:22)
[2023-04-13] MEDS: METOPROLOL SUCC 25MG EXT REL TAB PO SCH (09:05)
[2023-04-13] MEDS: busPIRone 15 MG TAB PO SCH ×2 (09:05→21:22)
[2023-04-13] MEDS: PREGABALIN 50 MG CAP PO SCH ×2 (09:06→21:22)
[2023-04-13] MEDS: POLYETHYLENE (MIRALAX) 17 GM PACK PO PRN (11:19)
--- NOTE | 2023-04-13 11:42 | Nephrology Progress Note ---
Date of Service April 13, 2023 Assessment & Plan (1) Acute kidney injury: Plan: Non-oliguric. Post op PATY in the setting of acute anemia. Improving with intravascular volume expansion. Electrolytes normal. s/p Lokelma x 1 dose. Will provide second dose for potassium 5.0 mmol/L. Volume status acceptable. IVF will be held. No indication for ASSISTANT DEAN at this time. Medications appropriate for kidney function. Continue low potassium diet. Document I/O's. Giraldo may be removed from nephrology standpoint. Goal is to maintain even to slightly positive fluid balance. Repeat metabolic profile tomorrow AM. (2) Hyperkalemia: Plan: Additional Lokelma x 1 now. Repeat tomorrow AM. Low K diet. (3) Anemia: Plan: Hgb 7.4, relatively stable. No signs of active bleeding. Prospective monitoring is being provided. If Hgb drops, consider additional PRBC transfusion support. Will iron profile with next blood work. s/p Epogen 81323 units x 1 on 04/12. 1 unit PRBC transfusion support 04/09. (4) Left displaced femoral neck fracture: Plan: POD #4 s/p L hemiarthroplasty. (5) History of partial replacement of left hip joint using bipolar prosthesis: Plan: POD #4. PT/OT. (6) Chronic kidney disease, stage 4 (severe): Plan: CKD attributed to DKD. Baseline creatinine ~2.8 mg/dL. Followed by Dr. Kang as outpatient. AVF mature for use. Admission and Anticipated Discharge Date Admission Date: April 08, 2023 Subjective No acute events overnight. Jerri was out of bed with her walker this morning. She feels well. Pain controlled. Some fatigue reported. No fevers or chills. No fluid retention or edema. Giraldo catheter draining concentrated yellow urine. No bleeding concerns reported. Review of Systems Review of Systems: All systems reviewed & are unremarkable except as noted in HPI & below Physical Exam Constitutional: well developed; no acute distress Eyes: no scleral abnormality and no corneal abnormality ENMT: Mouth: + dry oral mucous membranes; no oral mucosal abnormality Neck: normal visual inspection and trachea midline Respiratory: normal respiratory effort Auscultation: lungs clear to auscultation bilaterally Cardiovascular: Rate/Rhythm: regular rate Heart Sounds: normal S1 and normal S2 Extremities: + edema (trace pitting, compression stocking on left leg) Musculoskeletal: Extremities: no cyanosis and no clubbing Skin: normal turgor; no lesions Neurologic: Motor/Sensory: no tremor and no asterixis Psychiatric: Orientation: alert and oriented x 3 Results & Data Vital Signs (Past 12 Hours) Vital Signs Temp Pulse Resp BP Pulse Ox O2 Del Method 04/13/23 08:09 36.8 C 94 H 16 108/74 96 Room Air Laboratory Results Laboratory Results - last 24 hr 04/12/23 04/12/23 04/12/23 11:50 16:45 19:00 WBC RBC Hgb Hct MCV MCH MCHC RDW Std Deviation RDW Coeff of Chantal Plt Count MPV Immature Gran % (Auto) Neut % (Auto) Lymph % (Auto) [place] % (Auto) Eos % (Auto) Baso % (Auto) Neut # (Auto) Lymph # (Auto) [place] # (Auto) Eos # (Auto) Baso # (Auto) Immature Gran # (Auto) RBC Morphology Sodium Potassium Chloride Carbon Dioxide Anion Gap BUN Creatinine Est Cr Clr Drug Dosing Est GFR ( Amer) Est GFR (Non-Af Amer) BUN/Creatinine Ratio Glucose POC Glucose 176 H 217 H Calcium Phosphorus Albumin Urine Color Yellow Urine Appearance Clear Urine pH 5.0 Ur Specific [place] 1.016 Urine Protein 1+ H Urine Glucose (UA) Negative Urine Ketones Negative Urine Blood Negative Urine Nitrite Negative Urine Bilirubin Negative Urine Urobilinogen Negative Ur Leukocyte Esterase Trace H Urine WBC (Auto) 5-10 H Urine RBC (Auto) 0-4 U Hyaline Cast (Auto) 1-5 U Epithel Cells (Auto) 10-20 H Urine Bacteria (Auto) Negative Urine Yeast Not Reportable 04/12/23 04/13/23 04/13/23 20:20 06:45 06:45 WBC 4.81 RBC 2.77 L Hgb 7.4 L Hct 24.6 L MCV 88.8 MCH 26.7 MCHC 30.1 L RDW Std Deviation 49.5 H RDW Coeff of Chantal 15.1 H Plt Count 99 L MPV 11.7 Immature Gran % (Auto) 0.8 Neut % (Auto) 69.6 Lymph % (Auto) 20.6 [place] % (Auto) 7.3 Eos % (Auto) 1.5 Baso % (Auto) 0.2 Neut # (Auto) 3.35 Lymph # (Auto) 0.99 L [place] # (Auto) 0.35 Eos # (Auto) 0.07 Baso # (Auto) 0.01 Immature Gran # (Auto) 0.04 RBC Morphology Unremarkable Sodium 139 Potassium 5.0 Chloride 105 Carbon Dioxide 25 Anion Gap 9 BUN 98 H Creatinine 4.25 H Est Cr Clr Drug Dosing 17.4 Est GFR ( Amer) 12.0 Est GFR (Non-Af Amer) 10.3 BUN/Creatinine Ratio 23.1 H Glucose 100 H POC Glucose 196 H Calcium 7.9 L Phosphorus 6.7 H Albumin 2.5 L Urine Color Urine Appearance Urine pH Ur Specific [place] Urine Protein Urine Glucose (UA) Urine Ketones Urine Blood Urine Nitrite Urine Bilirubin Urine Urobilinogen Ur Leukocyte Esterase Urine WBC (Auto) Urine RBC (Auto) U Hyaline Cast (Auto) U Epithel Cells (Auto) Urine Bacteria (Auto) Urine Yeast 04/13/23 07:56 WBC RBC Hgb Hct MCV MCH MCHC RDW Std Deviation RDW Coeff of Chantal Plt Count MPV Immature Gran % (Auto) Neut % (Auto) Lymph % (Auto) [place] % (Auto) Eos % (Auto) Baso % (Auto) Neut # (Auto) Lymph # (Auto) [place] # (Auto) Eos # (Auto) Baso # (Auto) Immature Gran # (Auto) RBC Morphology Sodium Potassium Chloride Carbon Dioxide Anion Gap BUN Creatinine Est Cr Clr Drug Dosing Est GFR ( Amer) Est GFR (Non-Af Amer) BUN/Creatinine Ratio Glucose POC Glucose 118 H Calcium Phosphorus Albumin Urine Color Urine Appearance Urine pH Ur Specific [place] Urine Protein Urine Glucose (UA) Urine Ketones Urine Blood Urine Nitrite Urine Bilirubin Urine Urobilinogen Ur Leukocyte Esterase Urine WBC (Auto) Urine RBC (Auto) U Hyaline Cast (Auto) U Epithel Cells (Auto) Urine Bacteria (Auto) Urine Yeast PG Care Time/CCT Total # of Minutes Spent Total Time Spent with Patient: Total time spent is greater than 50% in coordination of care (as documented) at patient's floor/unit and/or counseling patient: Coding Level of Care Code 34670 SUB INP/OBS CARE 3/50MIN Diagnoses Acute kidney injury N17.9 Hyperkalemia E87.5 Anemia D64.9 Left displaced femoral neck fracture S72.002A History of partial replacement of left hip joint using bipolar prosthesis Z96.642 Chronic kidney disease, stage 4 (severe) N18.4
[2023-04-13] MEDS ORDERED: SODIUM ZIRCONIUM CYCLOSILICATE 10 GM PACKET PO STA (11:51)
[2023-04-13] MEDS ORDERED: PATIROMER CALCIUM SORBITEX 8.4 GM PACK PO STA (11:55)
--- NOTE | 2023-04-13 15:16 | Hospitalist Progress Note ---
Date of Service April 13, 2023 Assessment & Plan (1) Left displaced femoral neck fracture: Plan: Fall in a 62 yo female resulting in a left displaced femoral neck fracture . S/P repair 04/09 with biploar hip replacement Resumed apixaban at lower dose, will resume full dose at discharge. acute blood loss anemia second unit of blood transfused on 04/11/2023 once medically stable transition to [facility] ray of elbow for left elbow pain without acute fracture or dislocation . (2) Type 2 diabetes mellitus: Plan: Consult glycemic control. short acting insulin ACHS and Insulin glargine mahnaz with ckd4 elevated BUN and CR ashelyley from ATN, will watch hemaglobin as BUN could be from stress GI blood loss, nephrology consult following check iron levels EPO given as was on as outpt monthly (3) Diastolic CHF: Plan: continue Holding diuretics. ivf with caition Patient does not appear to be in acute CHF with anemia and worsened renal function will transfuse additional blood on 04/11/2023 Plan DVT: apixaban Admission and Anticipated Discharge Date Admission Date: April 08, 2023 anticipate if continued improvement to transition to [facility] sunday 04/15 or 04/16 depending on insurance auth Subjective pt is a bit saddened today about her remaining in the hospital has poor progress on mobility renal function with slight improvement Physical Exam Physical Exam: She is awake alert appropriate no focal loss eyes exhibit no signs of tremor i ntention or at rest card exam is regular lungs are clear abdomen is NABS soft her distal extremities are without edema good peripheral pulses are in place Results & Data Results & Data Vital Signs (Past 12 Hours) Vital Signs Temp Pulse Resp BP Pulse Ox O2 Del Method 04/13/23 08:09 98.2 F 94 H 16 108/74 96 Room Air PG Care Time/CCT Total # of Minutes Spent Total Time Spent with Patient: Total time spent is greater than 50% in coordination of care (as documented) at patient's floor/unit and/or counseling patient: Coding Level of Care Code 28078 SUB INP/OBS CARE 2/35MIN Diagnoses Left displaced femoral neck fracture S72.002A Type 2 diabetes mellitus E11.69; Z79.4 Diabetes mellitus assistant terminal manager insulin use: with shelter use Diabetes mellitus complication status: with other specified complication Diastolic CHF I50.30 (2) Type 2 diabetes mellitus Diabetes mellitus assistant terminal manager insulin use: with assistant terminal manager use Diabetes mellitus complication status: with other specified complication Qualified Code(s): E11.69 - Type 2 diabetes mellitus with other specified complication; Z79.4 - group home (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
[2023-04-13] MEDS: SODIUM CHLORIDE 0.9% 1,000 ML IV SCH (16:11)
[2023-04-13] MEDS: ATORVASTATIN 40 MG TAB PO SCH (21:22)
[2023-04-13] MEDS: traZODone HCL 50 MG TAB PO SCH (21:22)
[2023-04-13] MEDS: LANTUS PER UNIT CHARGE SC SCH (21:23)
[2023-04-13] MEDS: PANTOprazole 40 MG TAB PO SCH (21:23)
[2023-04-14] MEDS: SODIUM CHLORIDE 0.9% 1,000 ML IV SCH (04:05)
[2023-04-14] MEDS: APIXABAN 2.5 MG TAB PO SCH ×2 (05:11→17:16)
[2023-04-14] MEDS: LEVOTHYROXINE SODIUM 50 MCG TABLET PO SCH (05:11)
[2023-04-14 09:06] LABS: Basophils # (auto) 0.02 K/uL (0.00-0.20); Basophils % (auto) 0.4 %; Eosinophils # (auto) 0.08 K/uL (0.00-0.50); Eosinophils % (auto) 1.6 %; Hematocrit (blood only) 26.2 % (37.0-47.0); Hemoglobin 8.1 g/dl (12.0-16.0); Immature Granulocytes # (auto) 0.06 K/uL (0.01-0.20); Immature Granulocytes % (auto) 1.2 %; Lymphocytes # (auto) 1.19 K/uL (1.20-3.40); Lymphocytes % (auto) 23.7 %; Mean Corpuscular Hgb Conc 30.9 g/dL (32.0-36.0); Mean Corpuscular Volume 87.3 fL (80.0-100.0); Mean Platelet Volume 11.6 fL (9.4-12.4); Neutrophils # (auto) 3.28 K/uL (1.40-6.50); Neutrophils % (auto) 65.1 %; Nucleated RBC # (auto) 0.02 K/uL (0.00-0.12); Nucleated RBC % (auto) 0.4 %; Platelet Count 120 K/uL (130-400); RDW Coefficient of Variation 15.3 % (11.5-14.5); RDW Standard Deviation 48.8 fL (36.4-46.3); White Blood Count 5.03 K/ul (4.8-10.8)
[2023-04-14] MEDS: PREGABALIN 50 MG CAP PO SCH ×2 (09:06→20:05)
[2023-04-14] MEDS: busPIRone 15 MG TAB PO SCH ×2 (09:07→20:04)
[2023-04-14] MEDS: fluvoxaMINE MALEATE 50 MG TAB PO SCH ×2 (09:07→20:04)
[2023-04-14] MEDS: METOPROLOL SUCC 25MG EXT REL TAB PO SCH (09:09)
[2023-04-14 09:14] LABS: Calcium 8.3 mg/dl (8.6-10.3); Potassium 4.8 mmol/L (3.5-5.1)
[2023-04-14 09:20] LABS: BUN Creatinine Ratio 24.9 (10-20); Creatinine Clr Calc Pharmacy 19.4 ml/min; Est GFR (African American) 13.7 ml/min; Est GFR (Non-African American) 11.8 ml/min
[2023-04-14] MEDS: INSULIN ASPART PER UNIT CHARGE SC SCH ×4 (09:29→20:05)
[2023-04-14 09:59] LABS: Ferritin 493.4 ng/ml (8-388)
[2023-04-14] MEDS: POLYETHYLENE (MIRALAX) 17 GM PACK PO PRN ×2 (10:13→20:31)
[2023-04-14] MEDS ORDERED: IRON SUCROSE 300 MG in SODIUM CHLORIDE 0.9% 250 ML IV ONE (10:49)
--- NOTE | 2023-04-14 12:39 | Hospitalist Progress Note ---
Date of Service April 14, 2023 Assessment & Plan (1) Left displaced femoral neck fracture: Plan: Fall in a 62 yo female resulting in a left displaced femoral neck fracture . S/P repair 04/09 with biploar hip replacement Resumed apixaban at lower dose, will resume full dose at discharge. acute blood loss anemia second unit of blood transfused on 04/11/2023 once medically stable transition to [facility], things limiting transfer include her renal dysfunction and hypoxia x ray of elbow for left elbow pain without acute fracture or dislocation . (2) Type 2 diabetes mellitus: Plan: Consult glycemic control. short acting insulin ACHS and Insulin glargine mahnaz with ckd4 elevated BUN and CR ashelyley from ATN, will watch hemaglobin as BUN could be from stress GI blood loss, nephrology consult following check iron levels EPO given as was on as outpt monthly patient receiving IV iron on 04/14/2023 per nephrology (3) Diastolic CHF: Plan: continue Holding diuretics. ivf will be discontinued 1029 does not appear to be in overt heart failure but does have significant hypoxia. Continue to watch clinically Patient does not appear to be in acute CHF with anemia and worsened renal function will transfuse additional blood on 04/11/2023 Plan DVT: apixaban Admission and Anticipated Discharge Date Admission Date: April 08, 2023 Subjective patient seen at the bedside this case discussed with Dr. Coon in the room. Patient continues to have some sadness and frustration given her lack of progress here in the hospital. She is still motivated to go to rehab. She did have improvement of her renal function. She still requiring oxygen. She has complaints of constipation Physical Exam Physical Exam: physically she does not have overt rales in her lungs she has decreased breath sounds at the bases with some minor rhonchi likely from atelectasis and lying in bed. She was offered and instructed on using of incentive spirometer. Her cardiac exam is regular with a systolic murmur best at the left upper sternal border. Extremities are with trace edema. Results & Data Results & Data Vital Signs (Past 12 Hours) Vital Signs Temp Pulse Resp BP Pulse Ox O2 Del Method O2 Flow Rate 04/14/23 08:32 96 Nasal Cannula 2 04/14/23 08:42 98.6 F 96 H 18 139/79 87 L Room Air 04/14/23 07:00 Room Air Laboratory Results Reviewed CBC reviewed chemistry PG Care Time/CCT Total # of Minutes Spent Total Time Spent with Patient: Total time spent is greater than 50% in coordination of care (as documented) at patient's floor/unit and/or counseling patient: Coding Level of Care Code 53599 SUB INP/OBS CARE 2/35MIN Diagnoses Left displaced femoral neck fracture S72.002A Type 2 diabetes mellitus E11.69; Z79.4 Diabetes mellitus nursing home insulin use: with nursing home use Diabetes mellitus complication status: with other specified complication Diastolic CHF I50.30 (2) Type 2 diabetes mellitus Diabetes mellitus nursing home insulin use: with remote computer terminal operator use Diabetes mellitus complication status: with other specified complication Qualified Code(s): E11.69 - Type 2 diabetes mellitus with other specified complication; Z79.4 - salvage determiner (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
--- NOTE | 2023-04-14 13:26 | Nephrology Progress Note ---
Date of Service April 14, 2023 Assessment & Plan (1) Acute kidney injury: Plan: Non-oliguric. Post op PATY in the setting of acute anemia. Clinical presentation consistent with ATN. Improving. Electrolytes normal. Volume status acceptable. IVF will be held. No indication for FLUE BLOWER at this time. Medications appropriate for kidney function. Continue low potassium diet. Document I/O's. Repeat metabolic profile tomorrow AM. (2) Hyperkalemia: Plan: Additional Lokelma x 1 04/12 and second dose 04/13. Repeat tomorrow AM. Low K diet. (3) Anemia: Plan: Hgb stable. No signs of active bleeding. LIBORIO noted. Venofer 300 mg IV now. s/p Epogen 84261 units x 1 on 04/12. 1 unit PRBC transfusion support 04/09. (4) Left displaced femoral neck fracture: Plan: POD #5 s/p L hemiarthroplasty. (5) History of partial replacement of left hip joint using bipolar prosthesis: Plan: Plan discharge to [facility] for rehab. (6) Chronic kidney disease, stage 4 (severe): Plan: CKD attributed to DKD. Baseline creatinine ~2.8 mg/dL. Followed by Dr. Kang as outpatient. AVF mature for use. Admission and Anticipated Discharge Date Admission Date: April 08, 2023 Subjective No acute events overnight. Jerri was seen and evaluated with Dr. Appiah this AM. I provided an update to her (Hernando) by phone at Jerri's request. Kidney function slowly improving. Jerri feels well. She expressed frustration regarding persistent debility and weakness. She is planning to transition to rehab for aggressive PT. Some fluid retention noted particularly in feet and ankles. Breathing comfortably. Denies pain. Review of Systems Review of Systems: All systems reviewed & are unremarkable except as noted in HPI & below Physical Exam Constitutional: well developed; no acute distress Eyes: no scleral abnormality and no corneal abnormality ENMT: Mouth: no oral mucosal abnormality and oral mucous membranes not dry Neck: normal visual inspection and trachea midline Respiratory: normal respiratory effort Auscultation: lungs clear to auscultation bilaterally Cardiovascular: Rate/Rhythm: regular rate Heart Sounds: normal S1 and normal S2 Extremities: + edema (trace pitting, compression stocking on left leg) Musculoskeletal: Extremities: no cyanosis and no clubbing Skin: normal turgor; no lesions Neurologic: Motor/Sensory: no tremor and no asterixis Psychiatric: Orientation: alert and oriented x 3 Results & Data Vital Signs (Past 12 Hours) Vital Signs Temp Pulse Resp BP Pulse Ox O2 Del Method O2 Flow Rate 04/14/23 08:32 96 Nasal Cannula 2 04/14/23 08:42 37.0 C 96 H 18 139/79 87 L Room Air 04/14/23 07:00 Room Air Laboratory Results Laboratory Results - last 24 hr 04/13/23 04/13/23 04/14/23 17:00 20:24 08:20 WBC RBC Hgb Hct MCV MCH MCHC RDW Std Deviation RDW Coeff of Chantal Plt Count MPV Immature Gran % (Auto) Neut % (Auto) Lymph % (Auto) [place] % (Auto) Eos % (Auto) Baso % (Auto) Neut # (Auto) Lymph # (Auto) [place] # (Auto) Eos # (Auto) Baso # (Auto) Immature Gran # (Auto) Absolute Nucleated RBC Nucleated RBC % (auto) Sodium Potassium Chloride Carbon Dioxide Anion Gap BUN Creatinine Est Cr Clr Drug Dosing Est GFR ( Amer) Est GFR (Non-Af Amer) BUN/Creatinine Ratio Glucose POC Glucose 110 H 129 H 114 H Calcium Iron TIBC Unsaturated IBC Transferrin % Sat Ferritin 04/14/23 04/14/23 04/14/23 08:39 08:39 11:30 WBC 5.03 RBC 3.00 L Hgb 8.1 L Hct 26.2 L MCV 87.3 MCH 27.0 MCHC 30.9 L RDW Std Deviation 48.8 H RDW Coeff of Chantal 15.3 H Plt Count 120 L MPV 11.6 Immature Gran % (Auto) 1.2 Neut % (Auto) 65.1 Lymph % (Auto) 23.7 [place] % (Auto) 8.0 Eos % (Auto) 1.6 Baso % (Auto) 0.4 Neut # (Auto) 3.28 Lymph # (Auto) 1.19 L [place] # (Auto) 0.40 Eos # (Auto) 0.08 Baso # (Auto) 0.02 Immature Gran # (Auto) 0.06 Absolute Nucleated RBC 0.02 Nucleated RBC % (auto) 0.4 Sodium 138 Potassium 4.8 Chloride 106 Carbon Dioxide 23 Anion Gap 9 BUN 95 H Creatinine 3.81 H D Est Cr Clr Drug Dosing 19.4 Est GFR ( Amer) 13.7 Est GFR (Non-Af Amer) 11.8 BUN/Creatinine Ratio 24.9 H Glucose 104 H POC Glucose 82 Calcium 8.3 L Iron 31 L TIBC 187 L Unsaturated IBC 156 Transferrin % Sat 17 Ferritin 493.4 H PG Care Time/CCT Total # of Minutes Spent Total Time Spent with Patient: Total time spent is greater than 50% in coordination of care (as documented) at patient's floor/unit and/or counseling patient: Coding Level of Care Code 70715 SUB INP/OBS CARE 3/50MIN Diagnoses Acute kidney injury N17.9 Hyperkalemia E87.5 Anemia D64.9 Left displaced femoral neck fracture S72.002A History of partial replacement of left hip joint using bipolar prosthesis Z96.642 Chronic kidney disease, stage 4 (severe) N18.4
[2023-04-14] MEDS: ATORVASTATIN 40 MG TAB PO SCH (20:04)
[2023-04-14] MEDS: PANTOprazole 40 MG TAB PO SCH (20:05)
[2023-04-14] MEDS: LANTUS PER UNIT CHARGE SC SCH (20:33)
[2023-04-14] MEDS: traZODone HCL 50 MG TAB PO SCH (21:24)
[2023-04-15] MEDS: LEVOTHYROXINE SODIUM 50 MCG TABLET PO SCH (05:31)
[2023-04-15] MEDS: APIXABAN 2.5 MG TAB PO SCH ×2 (05:31→16:47)
[2023-04-15 07:45] LABS: Hematocrit (blood only) 25.7 % (37.0-47.0); Hemoglobin 7.7 g/dl (12.0-16.0)
[2023-04-15 08:07] LABS: BUN Creatinine Ratio 24.4 (10-20); Calcium 8.2 mg/dl (8.6-10.3); Creatinine Clr Calc Pharmacy 20.1 ml/min; Est GFR (African American) 14.2 ml/min; Est GFR (Non-African American) 12.3 ml/min; Potassium 4.7 mmol/L (3.5-5.1)
[2023-04-15] MEDS: busPIRone 15 MG TAB PO SCH ×2 (08:19→20:41)
[2023-04-15] MEDS: fluvoxaMINE MALEATE 50 MG TAB PO SCH ×2 (08:19→20:40)
[2023-04-15] MEDS: METOPROLOL SUCC 25MG EXT REL TAB PO SCH (08:19)
[2023-04-15] MEDS: INSULIN ASPART PER UNIT CHARGE SC SCH ×5 (08:27→20:39)
[2023-04-15] MEDS: PREGABALIN 50 MG CAP PO SCH ×2 (08:28→20:40)
[2023-04-15] MEDS: POLYETHYLENE (MIRALAX) 17 GM PACK PO PRN ×2 (08:28→21:39)
[2023-04-15] MEDS ORDERED: IRON SUCROSE 200 MG in 0.9 % SODIUM CHLORIDE 100 ML IV ONE (09:00)
--- NOTE | 2023-04-15 09:57 | Nephrology Progress Note ---
Date of Service April 15, 2023 Assessment & Plan (1) Acute kidney injury: Plan: Non-oliguric. Post op PATY in the setting of acute anemia. Clinical presentation consistent with ATN. Improving. Electrolytes normal. IVF held. Some fluid retention noted. Goal is to maintain even or slightly negative fluid balance. Diuretics held pending monitoring. No indication for BILINGUAL NANNY at this time. Medications appropriate for kidney function. Continue low potassium diet. Document I/O's. (2) Hyperkalemia: Plan: Improved. Continue low potassium diet. (3) Anemia: Plan: Hgb stable. Venofer 300 mg IV provided yesterday. Additional 200 mg IV Venofer today. s/p Epogen 25711 units x 1 on 04/12. 1 unit PRBC transfusion support 03/18 4. (4) Left displaced femoral neck fracture: Plan: POD #6 s/p L hemiarthroplasty. (5) History of partial replacement of left hip joint using bipolar prosthesis: Plan: Plan discharge to [facility] for rehab. (6) Chronic kidney disease, stage 4 (severe): Plan: CKD attributed to DKD. Baseline creatinine ~2.8 mg/dL. Followed by Dr. Kang as outpatient. AVF mature for use. Admission and Anticipated Discharge Date Admission Date: April 08, 2023 Subjective No acute events overnight. Reports dry mouth this morning but despite feeling dry also feeling slightly bloated from fluids. Denies shortness of breath. Laying flat in bed. Denies pain. Appetite fair. Review of Systems Review of Systems: All systems reviewed & are unremarkable except as noted in HPI & below Physical Exam Constitutional: well developed; no acute distress Eyes: no scleral abnormality and no corneal abnormality ENMT: Mouth: no oral mucosal abnormality and oral mucous membranes not dry Neck: normal visual inspection and trachea midline Respiratory: normal respiratory effort Auscultation: lungs clear to auscultation bilaterally and + rales Cardiovascular: Rate/Rhythm: regular rate Heart Sounds: normal S1 and normal S2 Extremities: + edema (trace pitting, compression stocking on left leg) Musculoskeletal: Extremities: no cyanosis and no clubbing Skin: normal turgor; no lesions Neurologic: Motor/Sensory: no tremor and no asterixis Psychiatric: Orientation: alert and oriented x 3 Results & Data Vital Signs (Past 12 Hours) Vital Signs Temp Pulse Resp BP Pulse Ox O2 Del Method O2 Flow Rate 04/15/23 07:50 Nasal Cannula 2 04/15/23 07:48 36.6 C 75 16 193/81 H 97 Room Air Laboratory Results Laboratory Results - last 24 hr 04/14/23 04/14/23 04/14/23 08:39 11:30 16:56 Hgb Hct Sodium Potassium Chloride Carbon Dioxide Anion Gap BUN Creatinine Est Cr Clr Drug Dosing Est GFR ( Amer) Est GFR (Non-Af Amer) BUN/Creatinine Ratio Glucose POC Glucose 82 132 H Calcium Ferritin 493.4 H 04/14/23 04/15/23 04/15/23 20:04 07:16 07:16 Hgb 7.7 L Hct 25.7 L Sodium 140 Potassium 4.7 Chloride 108 H Carbon Dioxide 27 Anion Gap 5 BUN 90 H Creatinine 3.69 H Est Cr Clr Drug Dosing 20.1 Est GFR ( Amer) 14.2 Est GFR (Non-Af Amer) 12.3 BUN/Creatinine Ratio 24.4 H Glucose 140 H POC Glucose 140 H Calcium 8.2 L Ferritin 04/15/23 07:26 Hgb Hct Sodium Potassium Chloride Carbon Dioxide Anion Gap BUN Creatinine Est Cr Clr Drug Dosing Est GFR ( Amer) Est GFR (Non-Af Amer) BUN/Creatinine Ratio Glucose POC Glucose 133 H Calcium Ferritin PG Care Time/CCT Total # of Minutes Spent Total Time Spent with Patient: Total time spent is greater than 50% in coordination of care (as documented) at patient's floor/unit and/or counseling patient: Coding Level of Care Code 25778 SUB INP/OBS CARE 3/50MIN Diagnoses Acute kidney injury N17.9 Hyperkalemia E87.5 Anemia D64.9 Left displaced femoral neck fracture S72.002A History of partial replacement of left hip joint using bipolar prosthesis Z96.642 Chronic kidney disease, stage 4 (severe) N18.4
--- NOTE | 2023-04-15 11:06 | Pharmacy Report ---
Pharmacy Glycemic Short Note 2 - Date of Service April 15, 2023 - Glycemic Short BSG Results (Last 24 hours): 04/14/23 04/14/23 04/14/23 11:30 16:56 20:04 Glucose POC Glucose 82 132 H 140 H 04/15/23 04/15/23 07:16 07:26 Glucose 140 H POC Glucose 133 H OUTPATIENT ANTIDIABETIC REGIMEN: * Lantus 4-6 units HS * Novolog 5-8 units with meals HbA1C = 7% (03/06/23) ASSESSMENT: 04/15/23: * Jerri received 5 units of insulin yesterday of which 3 were basal * Fasting BSG within goal range, continue current regimen * BSG slightly below goal at lunchtime yesterday, carbohydrate ratio loosened * Serum creatinine improving, no glycemic stressors noted at this time * Awaiting placement for rehab 04/12/23: * BSGs elevated yesterday despite tightening of carb ratio * Patient received 12 units of insulin (3 units of basal and 9 units of prandial/correctional bolus) * Will tighten CF today and allow for increased basal insulin this evening if needed 04/11/23: * Jerri received 17 units of insulin yesterday of which 2 were basal * Fasting BSG slightly above goal range, will increase basal insulin slightly * Mealtime BSGs elevated, will tighten Novolog parameters * Serum creatinine uptrending, will monitor for insulin accumulation, no additional glycemic stressors noted at this time. 04/10/23: * POD #1 s/p cemented bipolar hemiarthoplasty of left hip * No perioperative steroids given * BSGs have been very well-controlled w/ little to no insulin thus far, however did trend up to 206 mg/dL last evening * Intended to give 4 units of basal last evening, but patient refused both basal and bolus insulin at that time * Fasting BSG of 116 mg/dL this morning - will utilize low-dose basal scale this evening 04/08/23: * Ms Arellano is a 62 y/o F with a PMH of T2DM who presents with a fall and hip fracture. * BSG in ER this morning was 170 mg/dL. (roughly 1100) * Previous admission in October 2022, patient tolerated Lantus 4 units HS + Novolog CF 45 CR 15 and blood sugars were well controlled. * Will resume this regimen with slightly tighter CR. At this time patient has diet ordered. PLAN FOR INPATIENT GLYCEMIC CONTROL: * Basal insulin - allow for increased basal * Lantus 3-4 units SC HS (4 units if BSG 180 mg/dL or above) * Bolus insulin - tighten CF * NovoLog per scale ACHS or Q6hrs while NPO * Goal Range: Low 110 mg/dL - High 140 mg/dL * Correction Factor: 35 mg/dL/unit * Nutritional / Prandial insulin per carb ratio of 1 unit per 9 grams CHO consumed
[2023-04-15] MEDS: traZODone HCL 50 MG TAB PO SCH (20:40)
[2023-04-15] MEDS: LANTUS PER UNIT CHARGE SC SCH (20:40)
[2023-04-15] MEDS: PANTOprazole 40 MG TAB PO SCH (20:41)
[2023-04-15] MEDS: ATORVASTATIN 40 MG TAB PO SCH (20:41)
[2023-04-16] MEDS: LEVOTHYROXINE SODIUM 50 MCG TABLET PO SCH (05:33)
[2023-04-16] MEDS: APIXABAN 2.5 MG TAB PO SCH ×2 (05:33→17:08)
[2023-04-16 08:13] LABS: Basophils # (auto) 0.02 K/uL (0.00-0.20); Basophils % (auto) 0.4 %; Eosinophils # (auto) 0.09 K/uL (0.00-0.50); Eosinophils % (auto) 1.9 %; Hematocrit (blood only) 28.3 % (37.0-47.0); Hemoglobin 8.7 g/dl (12.0-16.0); Immature Granulocytes # (auto) 0.09 K/uL (0.01-0.20); Immature Granulocytes % (auto) 1.9 %; Lymphocytes # (auto) 1.27 K/uL (1.20-3.40); Lymphocytes % (auto) 26.6 %; Mean Corpuscular Hemoglobin 27.6 pg (25.0-34.0); Mean Corpuscular Hgb Conc 30.7 g/dL (32.0-36.0); Mean Corpuscular Volume 89.8 fL (80.0-100.0); Mean Platelet Volume 11.1 fL (9.4-12.4); Monocytes # (auto) 0.33 K/uL (0.11-0.59); Monocytes % (auto) 6.9 %; Neutrophils # (auto) 2.97 K/uL (1.40-6.50); Neutrophils % (auto) 62.3 %; Nucleated RBC # (auto) 0.03 K/uL (0.00-0.12); Nucleated RBC % (auto) 0.6 %; Platelet Count 140 K/uL (130-400); RDW Coefficient of Variation 15.8 % (11.5-14.5); RDW Standard Deviation 51.3 fL (36.4-46.3); Red Blood Count 3.15 M/uL (4.20-5.40); White Blood Count 4.77 K/ul (4.8-10.8)
[2023-04-16 08:29] LABS: BUN Creatinine Ratio 26.2 (10-20); Calcium 8.4 mg/dl (8.6-10.3); Creatinine Clr Calc Pharmacy 22.6 ml/min; Est GFR (African American) 16.4 ml/min; Est GFR (Non-African American) 14.2 ml/min; Potassium 4.4 mmol/L (3.5-5.1)
[2023-04-16] MEDS: MoRPHine SULFATE 4 MG/ML 1 ML CARP\\VIAL IV PRN ×2 (08:43→15:02)
[2023-04-16] MEDS ORDERED: IRON SUCROSE 200 MG in 0.9 % SODIUM CHLORIDE 100 ML IV ONE (09:00)
[2023-04-16] MEDS: INSULIN ASPART PER UNIT CHARGE SC SCH ×4 (09:25→21:18)
[2023-04-16] MEDS: busPIRone 15 MG TAB PO SCH ×2 (09:28→21:17)
[2023-04-16] MEDS: fluvoxaMINE MALEATE 50 MG TAB PO SCH ×2 (09:28→21:17)
[2023-04-16] MEDS: METOPROLOL SUCC 25MG EXT REL TAB PO SCH (09:29)
[2023-04-16] MEDS: PREGABALIN 50 MG CAP PO SCH ×2 (09:29→21:17)
--- NOTE | 2023-04-16 10:05 | Nephrology Progress Note ---
Date of Service April 16, 2023 Assessment & Plan (1) Acute kidney injury: Plan: Non-oliguric. Post op PATY in the setting of acute anemia. Clinical presentation consistent with ATN. Improving. Electrolytes normal. Goal is to maintain even or slightly negative fluid balance. Diuretics held. Urine output increased showing signs of possible post ATN diuresis. No indication for INORGANIC CHEMISTRY PROFESSOR at this time. Medications appropriate for kidney function. Continue low potassium diet. Document I/O's. (2) Hyperkalemia: Plan: Improved. Continue low potassium diet. (3) Anemia: Plan: Hgb stable. Additional 200 mg IV Venofer today. This will complete an IV iron loading dose. s/p Epogen 85538 units x 1 on 04/12. 1 unit PRBC transfusion support 04/09. (4) Left displaced femoral neck fracture: Plan: POD #7 s/p L hemiarthroplasty. (5) History of partial replacement of left hip joint using bipolar prosthesis: Plan: Plan discharge to [facility] for rehab. (6) Chronic kidney disease, stage 4 (severe): Plan: CKD attributed to DKD. Baseline creatinine ~2.8 mg/dL. Followed by Dr. Kang as outpatient. AVF mature for use. Admission and Anticipated Discharge Date Admission Date: April 08, 2023 Subjective No acute events overnight. Out of bed with PT. Overall, Jerri feels well. Edema improving. Denies dyspnea. Does not endorse significant pain. Review of Systems Review of Systems: All systems reviewed & are unremarkable except as noted in HPI & below Physical Exam Constitutional: well developed; no acute distress Eyes: no scleral abnormality and no corneal abnormality ENMT: Mouth: no oral mucosal abnormality and oral mucous membranes not dry Neck: normal visual inspection and trachea midline Respiratory: normal respiratory effort Auscultation: lungs clear to auscultation bilaterally and + rales Cardiovascular: Rate/Rhythm: regular rate Heart Sounds: normal S1 and normal S2 Extremities: + edema (trace pitting, compression stocking on left leg) Musculoskeletal: Extremities: no cyanosis and no clubbing Skin: normal turgor; no lesions Neurologic: Motor/Sensory: no tremor and no asterixis Psychiatric: Orientation: alert and oriented x 3 Results & Data Vital Signs (Past 12 Hours) Vital Signs Temp Pulse Resp BP Pulse Ox O2 Del Method O2 Flow Rate 04/16/23 10:01 36.6 C 90 17 125/72 100 Nasal Cannula 2 04/16/23 08:00 37.1 C 97 H 14 138/82 98 Nasal Cannula 2 04/15/23 23:22 Nasal Cannula 2 Laboratory Results Laboratory Results - last 24 hr 04/15/23 04/15/23 04/15/23 11:28 16:36 19:44 WBC RBC Hgb Hct MCV MCH MCHC RDW Std Deviation RDW Coeff of Chantal Plt Count MPV Immature Gran % (Auto) Neut % (Auto) Lymph % (Auto) [place] % (Auto) Eos % (Auto) Baso % (Auto) Neut # (Auto) Lymph # (Auto) [place] # (Auto) Eos # (Auto) Baso # (Auto) Immature Gran # (Auto) Absolute Nucleated RBC Nucleated RBC % (auto) Sodium Potassium Chloride Carbon Dioxide Anion Gap BUN Creatinine Est Cr Clr Drug Dosing Est GFR ( Amer) Est GFR (Non-Af Amer) BUN/Creatinine Ratio Glucose POC Glucose 166 H 136 H 159 H Calcium 04/16/23 04/16/23 04/16/23 07:33 07:48 07:48 WBC 4.77 L RBC 3.15 L Hgb 8.7 L Hct 28.3 L MCV 89.8 MCH 27.6 MCHC 30.7 L RDW Std Deviation 51.3 H RDW Coeff of Chantal 15.8 H Plt Count 140 MPV 11.1 Immature Gran % (Auto) 1.9 Neut % (Auto) 62.3 Lymph % (Auto) 26.6 [place] % (Auto) 6.9 Eos % (Auto) 1.9 Baso % (Auto) 0.4 Neut # (Auto) 2.97 Lymph # (Auto) 1.27 [place] # (Auto) 0.33 Eos # (Auto) 0.09 Baso # (Auto) 0.02 Immature Gran # (Auto) 0.09 Absolute Nucleated RBC 0.03 Nucleated RBC % (auto) 0.6 Sodium 140 Potassium 4.4 Chloride 107 Carbon Dioxide 28 Anion Gap 5 BUN 86 H Creatinine 3.28 H D Est Cr Clr Drug Dosing 22.6 Est GFR ( Amer) 16.4 Est GFR (Non-Af Amer) 14.2 BUN/Creatinine Ratio 26.2 H Glucose 105 H POC Glucose 109 H Calcium 8.4 L PG Care Time/CCT Total # of Minutes Spent Total Time Spent with Patient: Total time spent is greater than 50% in coordination of care (as documented) at patient's floor/unit and/or counseling patient: Coding Level of Care Code 93723 SUB INP/OBS CARE 3/50MIN Diagnoses Acute kidney injury N17.9 Hyperkalemia E87.5 Anemia D64.9 Left displaced femoral neck fracture S72.002A History of partial replacement of left hip joint using bipolar prosthesis Z96.642 Chronic kidney disease, stage 4 (severe) N18.4
--- NOTE | 2023-04-16 13:54 | Hospitalist Progress Note ---
Date of Service April 16, 2023 Assessment & Plan (1) Left displaced femoral neck fracture: Plan: Fall in a 62 yo female resulting in a left displaced femoral neck fracture . S/P repair 04/09 with biploar hip replacement Resumed apixaban at lower dose, will resume full dose at discharge. acute blood loss anemia second unit of blood transfused on 04/11/2023 patient medically stable authorization is requested for rehabilitation placement x ray of elbow for left elbow pain without acute fracture or dislocation . (2) Type 2 diabetes mellitus: Plan: Consult glycemic control. short acting insulin ACHS and Insulin glargine mahnaz with ckd4 elevated BUN and CR likley from ATN, hemoglobin has been stable nephrology consult administered intravenous iron EPO given as was on as outpt monthly patient receiving IV iron on 04/14/2023 per nephrology (3) Diastolic CHF: Plan: continue Holding diuretics. ivf will be discontinued 1029 does not appear to be in overt heart failure but does have significant hypoxia. Continue to watch clinically Patient does not appear to be in acute CHF with anemia and worsened renal function will transfuse additional blood on 04/11/2023 Plan DVT: apixaban Admission and Anticipated Discharge Date Admission Date: April 08, 2023 Subjective pt has been ambulating short distances, pain improved, renal function improving and hgb stable Physical Exam Physical Exam: physically she clear lungs except for decreased breath sounds at the bases with some minor rhonchi likely from atelectasis and lying in bed. Her cardiac exam is regular with a systolic murmur best at the left upper sternal border. Extremities are with trace edema. Results & Data Results & Data Vital Signs (Past 12 Hours) Vital Signs Temp Pulse Pulse Resp BP Pulse Ox O2 Del Method 04/16/23 11:00 97.7 F 80 18 110/66 97 Nasal Cannula 04/16/23 07:20 Nasal Cannula 04/16/23 10:01 97.9 F 90 17 125/72 100 Nasal Cannula 04/16/23 08:00 98.8 F 97 H 14 138/82 98 Nasal Cannula O2 Flow Rate 04/16/23 11:00 2 04/16/23 07:20 2 04/16/23 10:01 2 04/16/23 08:00 2 Laboratory Results Reviewed CBC reviewed chemistry PG Care Time/CCT Total # of Minutes Spent Total Time Spent with Patient: Total time spent is greater than 50% in coordination of care (as documented) at patient's floor/unit and/or counseling patient: Coding Level of Care Code 29894 SUB INP/OBS CARE 2MIN Diagnoses Left displaced femoral neck fracture S72.002A Type 2 diabetes mellitus E11.69; Z79.4 Diabetes mellitus group home insulin use: 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
[2023-04-16] MEDS: POLYETHYLENE (MIRALAX) 17 GM PACK PO PRN (17:07)
[2023-04-16] MEDS: ATORVASTATIN 40 MG TAB PO SCH (21:17)
[2023-04-16] MEDS: PANTOprazole 40 MG TAB PO SCH (21:17)
[2023-04-16] MEDS: LANTUS PER UNIT CHARGE SC SCH (21:18)
[2023-04-16] MEDS: traZODone HCL 50 MG TAB PO SCH (21:21)
[2023-04-16] MEDS: DICLOFENAC SOD 1% GEL 100 GM TUBE EXT SCH (21:53)
[2023-04-16] MEDS: MICONAZOLE NITRATE POWDER 85 GM EXT PRN (21:53)
[2023-04-17] MEDS: APIXABAN 2.5 MG TAB PO SCH ×2 (05:34→17:44)
[2023-04-17] MEDS: LEVOTHYROXINE SODIUM 50 MCG TABLET PO SCH (05:34)
[2023-04-17 08:36] LABS: Basophils # (auto) 0.03 K/uL (0.00-0.20); Basophils % (auto) 0.6 %; Eosinophils # (auto) 0.09 K/uL (0.00-0.50); Eosinophils % (auto) 1.9 %; Hematocrit (blood only) 29.4 % (37.0-47.0); Hemoglobin 8.8 g/dl (12.0-16.0); Immature Granulocytes # (auto) 0.07 K/uL (0.01-0.20); Immature Granulocytes % (auto) 1.5 %; Lymphocytes # (auto) 1.27 K/uL (1.20-3.40); Lymphocytes % (auto) 26.7 %; Mean Corpuscular Hemoglobin 27.2 pg (25.0-34.0); Mean Corpuscular Hgb Conc 29.9 g/dL (32.0-36.0); Monocytes # (auto) 0.37 K/uL (0.11-0.59); Monocytes % (auto) 7.8 %; Neutrophils # (auto) 2.92 K/uL (1.40-6.50); Neutrophils % (auto) 61.5 %; Nucleated RBC # (auto) 0.02 K/uL (0.00-0.12); Nucleated RBC % (auto) 0.4 %; Platelet Count 147 K/uL (130-400); RDW Coefficient of Variation 15.6 % (11.5-14.5); RDW Standard Deviation 50.4 fL (36.4-46.3); Red Blood Count 3.23 M/uL (4.20-5.40); White Blood Count 4.75 K/ul (4.8-10.8)
[2023-04-17] MEDS: busPIRone 15 MG TAB PO SCH ×2 (08:41→20:11)
[2023-04-17] MEDS: METOPROLOL SUCC 25MG EXT REL TAB PO SCH (08:41)
[2023-04-17] MEDS: fluvoxaMINE MALEATE 50 MG TAB PO SCH ×2 (08:41→20:11)
[2023-04-17] MEDS: PREGABALIN 50 MG CAP PO SCH ×2 (08:41→21:19)
[2023-04-17] MEDS: DICLOFENAC SOD 1% GEL 100 GM TUBE EXT SCH ×2 (08:42→20:11)
[2023-04-17] MEDS: INSULIN ASPART PER UNIT CHARGE SC SCH ×4 (08:42→21:18)
[2023-04-17] MEDS: POLYETHYLENE (MIRALAX) 17 GM PACK PO PRN ×2 (08:43→20:11)
[2023-04-17 09:02] LABS: Calcium 8.2 mg/dl (8.6-10.3); Creatinine Clr Calc Pharmacy 23.1 ml/min; Est GFR (African American) 16.9 ml/min; Est GFR (Non-African American) 14.6 ml/min; Potassium 4.9 mmol/L (3.5-5.1)
--- NOTE | 2023-04-17 10:02 | Nephrology Progress Note ---
Date of Service April 17, 2023 Assessment & Plan (1) Acute kidney injury: Plan: Post op PATY in the setting of acute anemia. Clinical presentation consistent with ATN. Creatinine improved to 3.2 mg/dL. Electrolytes normal. Volume status acceptable. Diuretics held. No indication for TIPPLE BOSS at this time. Medications appropriate for kidney function. Continue low potassium diet. Close outpatient follow up with Dr. Everett to be arranged at discharge. (2) Hyperkalemia: Plan: Improved. Continue low potassium diet. (3) Anemia: Plan: Hgb stable. Completed IV iron loading wit Venofer. s/p Epogen 25743 units x 1 on 04/12. 1 unit PRBC transfusion support 04/09. (4) Left displaced femoral neck fracture: Plan: POD #8 s/p L hemiarthroplasty. (5) History of partial replacement of left hip joint using bipolar prosthesis: Plan: Plan discharge to rehab. I reviewed the plan of care with Dr. Appiah this AM. (6) Chronic kidney disease, stage 4 (severe): Plan: CKD attributed to DKD. Baseline creatinine ~2.8 mg/dL. Followed by Dr. Kang as outpatient. AVF mature for use. Admission and Anticipated Discharge Date Admission Date: April 08, 2023 Subjective No acute events overnight. Out of bed with RN this morning. Denies pain. Breathing comfortably. Review of Systems Review of Systems: All systems reviewed & are unremarkable except as noted in HPI & below Physical Exam Constitutional: well developed; no acute distress Eyes: no scleral abnormality and no corneal abnormality ENMT: Mouth: no oral mucosal abnormality and oral mucous membranes not dry Neck: normal visual inspection and trachea midline Respiratory: normal respiratory effort Auscultation: lungs clear to auscultation bilaterally and + rales Cardiovascular: Rate/Rhythm: regular rate Heart Sounds: normal S1 and normal S2 Extremities: + edema (trace pitting, compression stocking on left leg) Musculoskeletal: Extremities: no cyanosis and no clubbing Skin: normal turgor; no lesions Neurologic: Motor/Sensory: no tremor and no asterixis Psychiatric: Orientation: alert and oriented x 3 Results & Data Vital Signs (Past 12 Hours) Vital Signs Temp Pulse Resp BP Pulse Ox O2 Del Method 04/17/23 07:43 36.6 C 92 H 16 146/78 H 94 Room Air Laboratory Results Laboratory Results - last 24 hr 04/16/23 04/16/23 04/16/23 11:37 16:31 20:34 WBC RBC Hgb Hct MCV MCH MCHC RDW Std Deviation RDW Coeff of Chantal Plt Count MPV Immature Gran % (Auto) Neut % (Auto) Lymph % (Auto) [place] % (Auto) Eos % (Auto) Baso % (Auto) Neut # (Auto) Lymph # (Auto) [place] # (Auto) Eos # (Auto) Baso # (Auto) Immature Gran # (Auto) Absolute Nucleated RBC Nucleated RBC % (auto) Sodium Potassium Chloride Carbon Dioxide Anion Gap BUN Creatinine Est Cr Clr Drug Dosing Est GFR ( Amer) Est GFR (Non-Af Amer) BUN/Creatinine Ratio Glucose POC Glucose 147 H 142 H 142 H Calcium 04/17/23 04/17/23 04/17/23 07:47 08:02 08:07 WBC 4.75 L RBC 3.23 L Hgb 8.8 L Hct 29.4 L MCV 91.0 MCH 27.2 MCHC 29.9 L RDW Std Deviation 50.4 H RDW Coeff of Chantal 15.6 H Plt Count 147 MPV 11.0 Immature Gran % (Auto) 1.5 Neut % (Auto) 61.5 Lymph % (Auto) 26.7 [place] % (Auto) 7.8 Eos % (Auto) 1.9 Baso % (Auto) 0.6 Neut # (Auto) 2.92 Lymph # (Auto) 1.27 [place] # (Auto) 0.37 Eos # (Auto) 0.09 Baso # (Auto) 0.03 Immature Gran # (Auto) 0.07 Absolute Nucleated RBC 0.02 Nucleated RBC % (auto) 0.4 Sodium 139 Potassium 4.9 Chloride 106 Carbon Dioxide 28 Anion Gap 5 BUN 80 H Creatinine 3.20 H Est Cr Clr Drug Dosing 23.1 Est GFR ( Amer) 16.9 Est GFR (Non-Af Amer) 14.6 BUN/Creatinine Ratio 25.0 H Glucose 110 H POC Glucose 111 H Calcium 8.2 L PG Care Time/CCT Total # of Minutes Spent Total Time Spent with Patient: Total time spent is greater than 50% in coordination of care (as documented) at patient's floor/unit and/or counseling patient: Coding Level of Care Code 47865 SUB INP/OBS CARE 3/50MIN Diagnoses Acute kidney injury N17.9 Hyperkalemia E87.5 Anemia D64.9 Left displaced femoral neck fracture S72.002A History of partial replacement of left hip joint using bipolar prosthesis Z96.642 Chronic kidney disease, stage 4 (severe) N18.4
[2023-04-17] MEDS: MoRPHine SULFATE 4 MG/ML 1 ML CARP\\VIAL IV PRN (10:12)
[2023-04-17] MEDS ORDERED: LACTULOSE SYRUP 30 GM/45 ML UDP PO STA (11:28)
--- NOTE | 2023-04-17 13:21 | Surgery Progress Note ---
Date of Service April 17, 2023 Assessment & Plan (1) History of partial replacement of left hip joint using bipolar prosthesis: Plan: 62-year-old female now 8 days out from a cemented bipolar hip arthroplasty for fracture. Orthopedically she is doing well. She looks pretty medically stable. Plan: She can continue to progress activities as tolerated. She can fully weight-bear. Should obey hip precautions. Medical management as per the medicine service. She is hoping to go to [facility]. I need to see her back 2 to 3 weeks out from her surgery date. Otherwise just routine wound care to the left hip change once a day. I will see her back in in 2 to 3 weeks out from surgery date. Any orthopedic questions can direct me at [phone] Admission and Anticipated Discharge Date Admission Date: April 08, 2023 Subjective 62-year-old female with multiple medical comorbidities now 8 days out from a cemented bipolar hip arthroplasty for fracture. She is doing pretty well. Hips been doing well. She been walking without that much pain. She has been quite anemic and followed medically in the hospital. She got a unit of blood and some iron. Denies any chest pain or shortness of breath. Hip pain is controlled. Physical Exam Physical Exam: Physical examination was a pleasant middle-age female. She is lying in bed looks quite comfortable. Examination left hip and leg reveals the dressing to be in place. The Prevena VAC has been taken off today. Dressing is clean dry and intact her thigh is soft and supple. Hips located. Leg lengths are equal. She can dorsiflex and plantarflex her foot appropriately. Results & Data Vital Signs (Past 12 Hours) Vital Signs Temp Pulse Resp BP Pulse Ox O2 Del Method 04/17/23 07:43 36.6 C 92 H 16 146/78 H 94 Room Air Laboratory Results Hemoglobin is 8.8. Hematocrit is 29.4 PG Care Time/CCT Total # of Minutes Spent Total Time Spent with Patient: Total time spent is greater than 50% in coordination of care (as documented) at patient's floor/unit and/or counseling patient: Coding Level of Care Code 56823 Post Operative Follow-Up Diagnoses History of partial replacement of left hip joint using bipolar prosthesis Z96.642
--- NOTE | 2023-04-17 15:27 | Pharmacy Report ---
Pharmacy Glycemic Short Note 2 - Date of Service April 17, 2023 - Glycemic Short BSG Results (Last 24 hours): 04/16/23 04/16/23 04/17/23 16:31 20:34 07:47 Glucose POC Glucose 142 H 142 H 111 H 04/17/23 04/17/23 08:07 11:43 Glucose 110 H POC Glucose 154 H OUTPATIENT ANTIDIABETIC REGIMEN: * Lantus 4-6 units HS * Novolog 5-8 units with meals HbA1C = 7% (03/06/23) ASSESSMENT: 04/17/23: * Jerri received 14 units of insulin yesterday of which 3 were basal * BSGs well controlled, continue current insulin regimen * No additional glycemic stressors at this time. Continuing to monitor for ins ulin accumulation with renal function 04/15/23: * Jerri received 5 units of insulin yesterday of which 3 were basal * Fasting BSG within goal range, continue current regimen * BSG slightly below goal at lunchtime yesterday, carbohydrate ratio loosened * Serum creatinine improving, no glycemic stressors noted at this time * Awaiting placement for rehab 04/12/23: * BSGs elevated yesterday despite tightening of carb ratio * Patient received 12 units of insulin (3 units of basal and 9 units of prandial/correctional bolus) * Will tighten CF today and allow for increased basal insulin this evening if needed 04/11/23: * Jerri received 17 units of insulin yesterday of which 2 were basal * Fasting BSG slightly above goal range, will increase basal insulin slightly * Mealtime BSGs elevated, will tighten Novolog parameters * Serum creatinine uptrending, will monitor for insulin accumulation, no additional glycemic stressors noted at this time. 04/10/23: * POD #1 s/p cemented bipolar hemiarthoplasty of left hip * No perioperative steroids given * BSGs have been very well-controlled w/ little to no insulin thus far, however did trend up to 206 mg/dL last evening * Intended to give 4 units of basal last evening, but patient refused both basal and bolus insulin at that time * Fasting BSG of 116 mg/dL this morning - will utilize low-dose basal scale this evening 04/08/23: * Ms Arellano is a 62 y/o F with a PMH of T2DM who presents with a fall and hip fracture. * BSG in ER this morning was 170 mg/dL. (roughly 1100) * Previous admission in October 2022, patient tolerated Lantus 4 units HS + Novolog CF 45 CR 15 and blood sugars were well controlled. * Will resume this regimen with slightly tighter CR. At this time patient has diet ordered. PLAN FOR INPATIENT GLYCEMIC CONTROL: * Basal insulin - allow for increased basal * Lantus 3-4 units SC HS (4 units if BSG 180 mg/dL or above) * Bolus insulin - tighten CF * NovoLog per scale ACHS or Q6hrs while NPO * Goal Range: Low 110 mg/dL - High 140 mg/dL * Correction Factor: 35 mg/dL/unit * Nutritional / Prandial insulin per carb ratio of 1 unit per 9 grams CHO consumed
--- NOTE | 2023-04-17 16:43 | Hospitalist Progress Note ---
Date of Service April 17, 2023 Assessment & Plan (1) Left displaced femoral neck fracture: Plan: Fall in a 62 yo female resulting in a left displaced femoral neck fracture . S/P repair 04/09 with biploar hip replacement Resumed apixaban at lower dose, will resume full dose at discharge. acute blood loss anemia second unit of blood transfused on 04/11/2023 patient medically stable authorization is requested for rehabilitation placement x ray of elbow for left elbow pain without acute fracture or dislocation . (2) Type 2 diabetes mellitus: Plan: Consult glycemic control. short acting insulin ACHS and Insulin glargine mahnaz with ckd4 elevated BUN and CR likley from ATN, hemoglobin has been stable nephrology consult administered intravenous iron EPO given as was on as outpt monthly patient receiving IV iron on 04/14/2023 per nephrology (3) Diastolic CHF: Plan: continue Holding diuretics. ivf will be discontinued 1029 does not appear to be in overt heart failure but does have significant hypoxia. Continue to watch clinically Patient does not appear to be in acute CHF with anemia and worsened renal function will transfuse additional blood on 04/11/2023 Plan DVT: apixaban disposition was denied acute rehab pending auth for subacute rehab Admission and Anticipated Discharge Date Admission Date: April 08, 2023 Subjective patient is medically stable for discharge however denied inpatient rehab stay applying for subacute rehab at this time Physical Exam Physical Exam: awake alert appropriate. Still some left lateral knee pain improved with Voltaren gel using oral opiates for pain control card exam is regular Results & Data Results & Data Vital Signs (Past 12 Hours) Vital Signs Temp Pulse Pulse Resp BP Pulse Ox O2 Del Method 04/17/23 15:20 97.9 F 76 18 131/73 95 Room Air 04/17/23 07:43 97.9 F 92 H 16 146/78 H 94 Room Air Laboratory Results reviewed CBC reviewed chemistry PG Care Time/CCT Total # of Minutes Spent Total Time Spent with Patient: Total time spent is greater than 50% in coordination of care (as documented) at patient's floor/unit and/or counseling patient: Coding Level of Care Code 87218 SUB INP/OBS CARE 2/35MIN Diagnoses Left displaced femoral neck fracture S72.002A Type 2 diabetes mellitus E11.69; Z79.4 Diabetes mellitus termite helper insulin use: with termite helper use Diabetes mellitus complication status: with other specified complication Diastolic CHF I50.30 (2) Type 2 diabetes mellitus Diabetes mellitus termite helper insulin use: with termite helper use Diabetes mellitus complication status: with other specified complication Qualified Code(s): E11.69 - Type 2 diabetes mellitus with other specified complication; Z79.4 - half-way (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
[2023-04-17] MEDS: ATORVASTATIN 40 MG TAB PO SCH (20:11)
[2023-04-17] MEDS: PANTOprazole 40 MG TAB PO SCH (20:11)
[2023-04-17] MEDS: oxyCODONE HCL IR 5 MG TAB (IMMEDIATE RELEASE) PO PRN (20:11)
[2023-04-17] MEDS: LANTUS PER UNIT CHARGE SC SCH (21:18)
[2023-04-17] MEDS: traZODone HCL 50 MG TAB PO SCH (21:19)
[2023-04-18] MEDS: APIXABAN 2.5 MG TAB PO SCH ×2 (05:37→17:53)
[2023-04-18] MEDS: LEVOTHYROXINE SODIUM 50 MCG TABLET PO SCH (05:37)
[2023-04-18 07:30] LABS: Basophils # (auto) 0.02 K/uL (0.00-0.20); Basophils % (auto) 0.4 %; Eosinophils # (auto) 0.09 K/uL (0.00-0.50); Hematocrit (blood only) 28.3 % (37.0-47.0); Hemoglobin 8.4 g/dl (12.0-16.0); Immature Granulocytes # (auto) 0.09 K/uL (0.01-0.20); Lymphocytes # (auto) 1.09 K/uL (1.20-3.40); Lymphocytes % (auto) 24.3 %; Mean Corpuscular Hemoglobin 26.8 pg (25.0-34.0); Mean Corpuscular Hgb Conc 29.7 g/dL (32.0-36.0); Mean Corpuscular Volume 90.4 fL (80.0-100.0); Mean Platelet Volume 10.7 fL (9.4-12.4); Monocytes % (auto) 8.9 %; Neutrophils % (auto) 62.4 %; Platelet Count 147 K/uL (130-400); RDW Coefficient of Variation 16.1 % (11.5-14.5); RDW Standard Deviation 50.4 fL (36.4-46.3); Red Blood Count 3.13 M/uL (4.20-5.40); White Blood Count 4.49 K/ul (4.8-10.8)
[2023-04-18 07:51] LABS: BUN Creatinine Ratio 25.7 (10-20); Creatinine Clr Calc Pharmacy 24.3 ml/min; Est GFR (Non-African American) 15.5 ml/min; Potassium 4.7 mmol/L (3.5-5.1)
[2023-04-18] MEDS: INSULIN ASPART PER UNIT CHARGE SC SCH ×4 (08:36→20:23)
[2023-04-18] MEDS: fluvoxaMINE MALEATE 50 MG TAB PO SCH ×2 (08:37→20:09)
[2023-04-18] MEDS: busPIRone 15 MG TAB PO SCH ×2 (08:37→20:10)
[2023-04-18] MEDS: PREGABALIN 50 MG CAP PO SCH ×2 (08:37→20:20)
[2023-04-18] MEDS: METOPROLOL SUCC 25MG EXT REL TAB PO SCH (08:37)
[2023-04-18] MEDS: DICLOFENAC SOD 1% GEL 100 GM TUBE EXT SCH ×2 (08:38→20:09)
[2023-04-18] MEDS: MoRPHine SULFATE 4 MG/ML 1 ML CARP\\VIAL IV PRN ×2 (10:21→21:09)
--- NOTE | 2023-04-18 10:33 | Nephrology Progress Note ---
Date of Service April 18, 2023 Assessment & Plan (1) Acute kidney injury: Plan: Post op PATY in the setting of acute anemia. Clinical presentation consistent with ATN. Creatinine improved to 3.0 mg/dL. Electrolytes normal. Volume status acceptable. Diuretics held. No indication for ANALYTIC MANAGER at this time. Medications appropriate for kidney function. Continue low potassium diet. Close outpatient follow up with Dr. Everett to be arranged at discharge. (2) Hyperkalemia: Plan: Improved. Continue low potassium diet. (3) Anemia: Plan: Hgb stable. Completed IV iron loading wit Venofer. s/p Epogen 48618 units x 1 on 04/12. 1 unit PRBC transfusion support 04/09. (4) Left displaced femoral neck fracture: Plan: POD #9 s/p L hemiarthroplasty. (5) History of partial replacement of left hip joint using bipolar prosthesis: (6) Chronic kidney disease, stage 4 (severe): Plan: CKD attributed to DKD. Baseline creatinine ~2.8 mg/dL. Followed by Dr. Kang as outpatient. AVF mature for use. Admission and Anticipated Discharge Date Admission Date: April 08, 2023 Subjective No acute events overnight. Out of bed to bathroom. Review of Systems Review of Systems: All systems reviewed & are unremarkable except as noted in HPI & below Physical Exam Constitutional: well developed; no acute distress Eyes: no scleral abnormality and no corneal abnormality ENMT: Mouth: no oral mucosal abnormality and oral mucous membranes not dry Neck: normal visual inspection and trachea midline Respiratory: normal respiratory effort Auscultation: lungs clear to auscultation bilaterally Cardiovascular: Rate/Rhythm: regular rate Heart Sounds: normal S1 and normal S2 Extremities: + edema Musculoskeletal: Extremities: no cyanosis and no clubbing Skin: normal turgor; no lesions Neurologic: Motor/Sensory: no tremor and no asterixis Psychiatric: Orientation: alert and oriented x 3 Results & Data Vital Signs (Past 12 Hours) Vital Signs Temp Pulse Resp BP Pulse Ox O2 Del Method 04/18/23 09:47 Room Air 04/18/23 07:42 36.7 C 83 14 124/78 92 Room Air Laboratory Results Laboratory Results - last 24 hr 04/17/23 04/17/23 04/17/23 11:43 16:45 20:32 WBC RBC Hgb Hct MCV MCH MCHC RDW Std Deviation RDW Coeff of Chantal Plt Count MPV Immature Gran % (Auto) Neut % (Auto) Lymph % (Auto) [place] % (Auto) Eos % (Auto) Baso % (Auto) Neut # (Auto) Lymph # (Auto) [place] # (Auto) Eos # (Auto) Baso # (Auto) Immature Gran # (Auto) Sodium Potassium Chloride Carbon Dioxide Anion Gap BUN Creatinine Est Cr Clr Drug Dosing Est GFR ( Amer) Est GFR (Non-Af Amer) BUN/Creatinine Ratio Glucose POC Glucose 154 H 140 H 179 H Calcium 04/18/23 04/18/23 07:02 08:11 WBC 4.49 L RBC 3.13 L Hgb 8.4 L Hct 28.3 L MCV 90.4 MCH 26.8 MCHC 29.7 L RDW Std Deviation 50.4 H RDW Coeff of Chantal 16.1 H Plt Count 147 MPV 10.7 Immature Gran % (Auto) 2.0 Neut % (Auto) 62.4 Lymph % (Auto) 24.3 [place] % (Auto) 8.9 Eos % (Auto) 2.0 Baso % (Auto) 0.4 Neut # (Auto) 2.80 Lymph # (Auto) 1.09 L [place] # (Auto) 0.40 Eos # (Auto) 0.09 Baso # (Auto) 0.02 Immature Gran # (Auto) 0.09 Sodium 137 Potassium 4.7 Chloride 107 Carbon Dioxide 27 Anion Gap 3 BUN 78 H Creatinine 3.04 H Est Cr Clr Drug Dosing 24.3 Est GFR ( Amer) 18.0 Est GFR (Non-Af Amer) 15.5 BUN/Creatinine Ratio 25.7 H Glucose 121 H POC Glucose 125 H Calcium 8.0 L PG Care Time/CCT Total # of Minutes Spent Total Time Spent with Patient: Total time spent is greater than 50% in coordination of care (as documented) at patient's floor/unit and/or counseling patient: Coding Level of Care Code 59894 SUB INP/OBS CARE 3/50MIN Diagnoses Acute kidney injury N17.9 Hyperkalemia E87.5 Anemia D64.9 Left displaced femoral neck fracture S72.002A History of partial replacement of left hip joint using bipolar prosthesis Z96.642 Chronic kidney disease, stage 4 (severe) N18.4
--- NOTE | 2023-04-18 13:12 | Hospitalist Progress Note ---
Date of Service April 18, 2023 Assessment & Plan (1) Left displaced femoral neck fracture: Plan: Fall in a 62 yo female resulting in a left displaced femoral neck fracture . S/P repair 04/09 with biploar hip replacement Resumed apixaban at lower dose, will resume full dose at discharge. acute blood loss anemia second unit of blood transfused on 04/11/2023 patient medically stable authorization is requested for rehabilitation placement Pending. x ray of elbow for left elbow pain without acute fracture or dislocation . Patient has not had a bowel movement since 04/07, will order KUb and will increase miralax may order enema (2) Type 2 diabetes mellitus: Plan: Consult glycemic control. short acting insulin ACHS and Insulin glargine mahnaz with ckd4 elevated BUN and CR likley from ATN, hemoglobin has been stable nephrology consult administered intravenous iron EPO given as was on as outpt monthly patient receiving IV iron on 04/14/2023 per nephrology (3) Diastolic CHF: Plan: continue Holding diuretics. ivf will be discontinued 1029 does not appear to be in overt heart failure but does have significant hypoxia. Continue to watch clinically Patient does not appear to be in acute CHF with anemia and worsened renal function will transfuse additional blood on 04/11/2023 Plan DVT: apixaban disposition was denied acute rehab pending auth for subacute rehab Admission and Anticipated Discharge Date Admission Date: April 08, 2023 Subjective Patient reports she has not had a bowel mvement since 04/07. She reports some nausea and worsening abd. pain. She requested some morphine and received it earlier today. Review of Systems Review of Systems: All systems reviewed & are unremarkable except as noted in HPI & below Physical Exam Physical Exam: awake alert appropriate. Still some left lateral knee pain improved with Voltaren gel using oral opiates for pain control card exam is regular Results & Data Results & Data Vital Signs (Past 12 Hours) Vital Signs Temp Pulse Resp BP Pulse Ox O2 Del Method 04/18/23 10:42 36.6 C 83 18 106/66 96 Room Air 04/18/23 09:47 Room Air 04/18/23 07:42 36.7 C 83 14 124/78 92 Room Air PG Care Time/CCT Total # of Minutes Spent Total Time Spent with Patient: Total time spent is greater than 50% in coordination of care (as documented) at patient's floor/unit and/or counseling patient: Coding Level of Care Code 70842 SUB INP/OBS CARE Diagnoses Left displaced femoral neck fracture S72.002A Type 2 diabetes mellitus with other specified complication, with long-term current 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 E11.69; Z79.4 Diabetes mellitus complication status: with other specified complication Diabetes mellitus intermediate designer insulin use: with mcc use Diastolic CHF I50.30 (2) Type 2 diabetes mellitus Diabetes mellitus complication status: with other specified complication Diabetes mellitus mcc insulin use: with intermediate designer use Qualified Code(s): E11.69 - Type 2 diabetes mellitus with other specified complication; Z79.4 - laborer marine terminal (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
[2023-04-18] MEDS ORDERED: POLYETHYLENE (MIRALAX) 17 GM PACK PO PRN (13:19)
--- NOTE | 2023-04-18 15:53 | XRay Report ---
KUB CLINICAL HISTORY: fecal retention COMPARISON STUDY: CT of the abdomen and pelvis December 01, 2020. KUB January 22, 2023. FINDINGS: Postoperative appearance of the left hip arthroplasty is unchanged. Skin kari are noted. The bowel gas pattern is normal. A large amount of stool within the rectum is present. There is a mo derate amount of stool within the colon. No evidence for free air on supine exam. Surgical staple valery es project over the left upper quadrant. IMPRESSION: 1. No evidence for a bowel obstruction. 2. Large amount of stool within the rectum. Moderate amount of stool within the colon. ACT 112: Negative or not required by law. Electronically signed by: Ahsan Rebolledo M.D. 04/18/2023 3:51 PM
[2023-04-18] MEDS ORDERED: MINERAL OIL ENEMA 133 ML BTL PR ONE (18:52)
[2023-04-18] MEDS: ATORVASTATIN 40 MG TAB PO SCH (20:09)
[2023-04-18] MEDS: PANTOprazole 40 MG TAB PO SCH (20:09)
[2023-04-18] MEDS: traZODone HCL 50 MG TAB PO SCH (20:20)
[2023-04-18] MEDS: LANTUS PER UNIT CHARGE SC SCH (20:22)
[2023-04-19] MEDS: APIXABAN 2.5 MG TAB PO SCH ×2 (05:12→17:33)
[2023-04-19] MEDS: MoRPHine SULFATE 4 MG/ML 1 ML CARP\\VIAL IV PRN ×2 (05:23→14:14)
[2023-04-19] MEDS: LEVOTHYROXINE SODIUM 50 MCG TABLET PO SCH (05:38)
[2023-04-19 07:52] LABS: Basophils # (auto) 0.01 K/uL (0.00-0.20); Basophils % (auto) 0.2 %; Eosinophils # (auto) 0.06 K/uL (0.00-0.50); Eosinophils % (auto) 1.2 %; Hematocrit (blood only) 26.5 % (37.0-47.0); Immature Granulocytes # (auto) 0.04 K/uL (0.01-0.20); Immature Granulocytes % (auto) 0.8 %; Lymphocytes # (auto) 0.71 K/uL (1.20-3.40); Lymphocytes % (auto) 14.2 %; Mean Corpuscular Hgb Conc 30.2 g/dL (32.0-36.0); Mean Corpuscular Volume 89.5 fL (80.0-100.0); Monocytes # (auto) 0.41 K/uL (0.11-0.59); Monocytes % (auto) 8.2 %; Neutrophils # (auto) 3.76 K/uL (1.40-6.50); Neutrophils % (auto) 75.4 %; Platelet Count 148 K/uL (130-400); RDW Coefficient of Variation 16.3 % (11.5-14.5); RDW Standard Deviation 50.2 fL (36.4-46.3); Red Blood Count 2.96 M/uL (4.20-5.40); White Blood Count 4.99 K/ul (4.8-10.8)
[2023-04-19 09:31] LABS: BUN Creatinine Ratio 25.6 (10-20); Calcium 7.8 mg/dl (8.6-10.3); Creatinine Clr Calc Pharmacy 24.9 ml/min; Est GFR (African American) 18.5 ml/min
[2023-04-19] MEDS: busPIRone 15 MG TAB PO SCH ×2 (09:32→20:11)
[2023-04-19] MEDS: fluvoxaMINE MALEATE 50 MG TAB PO SCH ×2 (09:32→20:09)
[2023-04-19] MEDS: METOPROLOL SUCC 25MG EXT REL TAB PO SCH (09:32)
[2023-04-19] MEDS: PREGABALIN 50 MG CAP PO SCH ×2 (09:33→20:16)
[2023-04-19] MEDS: DICLOFENAC SOD 1% GEL 100 GM TUBE EXT SCH ×2 (09:33→20:10)
[2023-04-19] MEDS: INSULIN ASPART PER UNIT CHARGE SC SCH ×4 (09:33→20:53)
--- NOTE | 2023-04-19 10:44 | Nephrology Progress Note ---
Date of Service April 19, 2023 Assessment & Plan (1) Acute kidney injury: Plan: Post op PATY in the setting of acute anemia. Clinical presentation consistent with ATN. Creatinine improved to 2.9 mg/dL. Electrolytes normal. Volume status acceptable. Diuretics held. No indication for MANUFACTURING MAINTENANCE TECHNICIAN at this time. Medications appropriate for kidney function. Continue low potassium diet. Close outpatient follow up with Dr. Everett to be arranged at discharge. No additional nephrology recommendations at this time. I will sign-off. Please call with any questions or concerns. (2) Hyperkalemia: Plan: Continue low potassium diet. (3) Anemia: Plan: Hgb stable. Completed IV iron loading wit Venofer. Epogen 29712 units x 1 on 04/12. 1 unit PRBC transfusion support 04/09. (4) Left displaced femoral neck fracture: Plan: POD #10 s/p L hemiarthroplasty. (5) History of partial replacement of left hip joint using bipolar prosthesis: (6) Chronic kidney disease, stage 4 (severe): Plan: CKD attributed to DKD. Baseline creatinine ~2.8 mg/dL. Followed by Dr. Kang as outpatient. AVF mature for use. Admission and Anticipated Discharge Date Admission Date: April 08, 2023 Subjective No acute events overnight. Bowels disimpacted this AM. Uncomfortable. Appetite decreased. Nausea reported. Sacral wound with mild pain and some reported bleeding. Jerri overall was not feeling as well this AM. She denies fluid retention or edema. Review of Systems Review of Systems: All systems reviewed & are unremarkable except as noted in HPI & below Physical Exam Constitutional: well developed; no acute distress Eyes: no scleral abnormality and no corneal abnormality ENMT: Mouth: no oral mucosal abnormality and oral mucous membranes not dry Neck: normal visual inspection and trachea midline Respiratory: normal respiratory effort Auscultation: lungs clear to auscultation bilaterally Cardiovascular: Rate/Rhythm: regular rate Heart Sounds: normal S1 and normal S2 Extremities: + edema Musculoskeletal: Extremities: no cyanosis and no clubbing Skin: normal turgor; no lesions Neurologic: Motor/Sensory: no tremor and no asterixis Psychiatric: Orientation: alert and oriented x 3 Results & Data Vital Signs (Past 12 Hours) Vital Signs Temp Pulse Resp BP Pulse Ox O2 Del Method 04/19/23 08:09 37 C 83 16 117/66 93 Room Air Laboratory Results Laboratory Results - last 24 hr 04/18/23 04/18/23 04/18/23 11:36 16:47 20:01 WBC RBC Hgb Hct MCV MCH MCHC RDW Std Deviation RDW Coeff of Chantal Plt Count MPV Immature Gran % (Auto) Neut % (Auto) Lymph % (Auto) [place] % (Auto) Eos % (Auto) Baso % (Auto) Neut # (Auto) Lymph # (Auto) [place] # (Auto) Eos # (Auto) Baso # (Auto) Immature Gran # (Auto) Sodium Potassium Chloride Carbon Dioxide Anion Gap BUN Creatinine Est Cr Clr Drug Dosing Est GFR ( Amer) Est GFR (Non-Af Amer) BUN/Creatinine Ratio Glucose POC Glucose 137 H 165 H 130 H Calcium 04/19/23 04/19/23 04/19/23 07:17 07:18 07:49 WBC 4.99 RBC 2.96 L Hgb 8.0 L Hct 26.5 L MCV 89.5 MCH 27.0 MCHC 30.2 L RDW Std Deviation 50.2 H RDW Coeff of Chantal 16.3 H Plt Count 148 MPV 11.0 Immature Gran % (Auto) 0.8 Neut % (Auto) 75.4 Lymph % (Auto) 14.2 [place] % (Auto) 8.2 Eos % (Auto) 1.2 Baso % (Auto) 0.2 Neut # (Auto) 3.76 Lymph # (Auto) 0.71 L [place] # (Auto) 0.41 Eos # (Auto) 0.06 Baso # (Auto) 0.01 Immature Gran # (Auto) 0.04 Sodium 138 Potassium 5.0 Chloride 107 Carbon Dioxide 27 Anion Gap 4 BUN 76 H Creatinine 2.97 H Est Cr Clr Drug Dosing 24.9 Est GFR ( Amer) 18.5 Est GFR (Non-Af Amer) 16.0 BUN/Creatinine Ratio 25.6 H Glucose 116 H POC Glucose 110 H Calcium 7.8 L PG Care Time/CCT Total # of Minutes Spent Total Time Spent with Patient: Total time spent is greater than 50% in coordination of care (as documented) at patient's floor/unit and/or counseling patient: Coding Level of Care Code 50439 SUB INP/OBS CARE 3/50MIN Diagnoses Acute kidney injury N17.9 Hyperkalemia E87.5 Anemia D64.9 Left displaced femoral neck fracture S72.002A History of partial replacement of left hip joint using bipolar prosthesis Z96.642 Chronic kidney disease, stage 4 (severe) N18.4
--- NOTE | 2023-04-19 13:40 | Pharmacy Report ---
Pharmacy Glycemic Sign Off Nt - Date of Service April 19, 2023 - Assessment & Plan ASSESSMENT: * Pharmacy was consulted by Dr Collier on 04/08 for glycemic control and to write orders per [facility] inpatient glycemic control protocol. * Patient has been receiving/requiring ~15 units of insulin per day for adequate glycemic control * BSGs ranging 100-160 mg/dl * Regimen has only required minor adjustments over the past 48hrs to achieve this level of control * Do not anticipate further changes in patient status that would quickly deteriorate glycemic control (i.e. patient to be NPO for upcoming procedure, steroids tapering, starting tube feedings, etc). PLAN FOR INPATIENT GLYCEMIC CONTROL: No changes needed to current regimen. * Continue basal insulin with Lantus 3 units hs * Continue NovoLog per scale ACHS/Q6hrs while NPO * Goal range = 110-140 mg/dl * CF = 35 mg/dl/unit * CR = 1 unit for ever 8 g CHO consumed * Pharmacy is signing off of glycemic consult and will no longer be making adjustments to inpatient regimen. Please feel free to re-consult if needed. Thank you.
[2023-04-19] MEDS: PANTOprazole 40 MG TAB PO SCH (20:10)
[2023-04-19] MEDS: ATORVASTATIN 40 MG TAB PO SCH (20:10)
[2023-04-19] MEDS: traZODone HCL 50 MG TAB PO SCH (20:15)
[2023-04-19] MEDS: LANTUS PER UNIT CHARGE SC SCH (20:53)
--- NOTE | 2023-04-19 22:37 | Hospitalist Progress Note ---
Date of Service April 19, 2023 Assessment & Plan (1) Left displaced femoral neck fracture: Plan: Fall in a 62 yo female resulting in a left displaced femoral neck fracture . S/P repair 04/09 with biploar hip replacement Resumed apixaban at lower dose, will resume full dose at discharge. acute blood loss anemia second unit of blood transfused on 04/11/2023 patient medically stable authorization is requested for rehabilitation placement Pending. x ray of elbow for left elbow pain without acute fracture or dislocation . Patient has not had a bowel movement since 04/07, after soap suds, patient had a bowel movement (2) Type 2 diabetes mellitus: Plan: Consult glycemic control. short acting insulin ACHS and Insulin glargine mahnaz with ckd4 elevated BUN and CR likley from ATN, hemoglobin has been stable nephrology consult administered intravenous iron EPO given as was on as outpt monthly patient receiving IV iron on 04/14/2023 per nephrology (3) Diastolic CHF: Plan: continue Holding diuretics. ivf will be discontinued 1029 does not appear to be in overt heart failure but does have significant hypoxia. Continue to watch clinically Patient does not appear to be in acute CHF with anemia and worsened renal function will transfuse additional blood on 04/11/2023 Plan DVT: apixaban disposition was denied acute rehab pending auth for subacute rehab Admission and Anticipated Discharge Date Admission Date: April 08, 2023 Subjective 62 yo female reports no new symptoms. Review of Systems Review of Systems: All systems reviewed & are unremarkable except as noted in HPI & below Physical Exam Physical Exam: awake alert appropriate. card exam is regular abdomen: soft, bowel sounds positive Results & Data Results & Data Vital Signs (Past 12 Hours) Vital Signs Temp Pulse Resp BP Pulse Ox O2 Del Method 04/19/23 19:34 37.0 C 80 18 132/78 94 Room Air 04/19/23 16:21 37.3 C 89 16 125/85 93 Room Air 04/19/23 12:02 Room Air PG Care Time/CCT Total # of Minutes Spent Total Time Spent with Patient: Total time spent is greater than 50% in coordination of care (as documented) at patient's floor/unit and/or counseling patient: Coding Level of Care Code 64970 SUB INP/OBS CARE 2/35MIN Diagnoses Left displaced femoral neck fracture S72.002A Type 2 diabetes mellitus with other specified complication, with long-term current 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 E11.69; Z79.4 Diabetes mellitus complication status: with other specified complication Diabetes mellitus termination clerk insulin use: with termination clerk use Diastolic CHF I50.30 (2) Type 2 diabetes mellitus Diabetes mellitus complication status: with other specified complication Diabetes mellitus termination clerk insulin use: with termination clerk use Qualified Code(s): E11.69 - Type 2 diabetes mellitus with other specified complication; Z79.4 - FPC (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
[2023-04-20] MEDS: APIXABAN 2.5 MG TAB PO SCH ×2 (05:35→17:10)
[2023-04-20] MEDS: LEVOTHYROXINE SODIUM 50 MCG TABLET PO SCH (05:35)
[2023-04-20 07:43] LABS: Basophils # (auto) 0.02 K/uL (0.00-0.20); Basophils % (auto) 0.3 %; Eosinophils # (auto) 0.07 K/uL (0.00-0.50); Eosinophils % (auto) 1.1 %; Hematocrit (blood only) 28.1 % (37.0-47.0); Hemoglobin 8.6 g/dl (12.0-16.0); Immature Granulocytes # (auto) 0.13 K/uL (0.01-0.20); Immature Granulocytes % (auto) 2.1 %; Lymphocytes % (auto) 16.2 %; Mean Corpuscular Hemoglobin 27.7 pg (25.0-34.0); Mean Corpuscular Hgb Conc 30.6 g/dL (32.0-36.0); Mean Corpuscular Volume 90.4 fL (80.0-100.0); Mean Platelet Volume 10.5 fL (9.4-12.4); Monocytes # (auto) 0.42 K/uL (0.11-0.59); Monocytes % (auto) 6.8 %; Neutrophils # (auto) 4.54 K/uL (1.40-6.50); Neutrophils % (auto) 73.5 %; Platelet Count 153 K/uL (130-400); RDW Coefficient of Variation 16.7 % (11.5-14.5); RDW Standard Deviation 52.3 fL (36.4-46.3); Red Blood Count 3.11 M/uL (4.20-5.40); White Blood Count 6.18 K/ul (4.8-10.8)
[2023-04-20 07:47] LABS: Calcium 8.1 mg/dl (8.6-10.3)
[2023-04-20 07:52] LABS: BUN Creatinine Ratio 25.1 (10-20); Creatinine Clr Calc Pharmacy 25.4 ml/min; Est GFR (Non-African American) 16.4 ml/min
[2023-04-20] MEDS: DOCUSATE SODIUM 100 MG CAP PO SCH ×2 (08:33→20:01)
[2023-04-20] MEDS: PREGABALIN 50 MG CAP PO SCH ×2 (08:33→20:49)
[2023-04-20] MEDS: DICLOFENAC SOD 1% GEL 100 GM TUBE EXT SCH ×2 (08:33→20:02)
[2023-04-20] MEDS: fluvoxaMINE MALEATE 50 MG TAB PO SCH ×2 (08:33→20:49)
[2023-04-20] MEDS: busPIRone 15 MG TAB PO SCH ×2 (08:33→20:02)
[2023-04-20] MEDS: METOPROLOL SUCC 25MG EXT REL TAB PO SCH (08:34)
--- NOTE | 2023-04-20 08:48 | Surgery Progress Note ---
Date of Service April 20, 2023 Assessment & Plan (1) History of partial replacement of left hip joint using bipolar prosthesis: Plan: 62-year-old mixed female with multiple medical comorbidities now 11 days out from a cemented bipolar hip arthroplasty for fracture. Orthopedically her hip is doing fine. She is got multiple other medical issues which require management. Plan: 1. PT-OT. She can fully weight-bear as tolerated. She does [place] hip prec autions. 2. Pain control pain appears pretty well controlled currently with current pain regimen. 3. DVT prophylaxis including thigh-high teds, SCDs, and Eliquis. 4. Disposition she is orthopedically okay for discharge anytime. I need to see her back 2 to 3 weeks out from surgery date. Any other questions can be direct me [phone]. Admission and Anticipated Discharge Date Admission Date: April 08, 2023 Subjective 62-year-old female with multiple medical comorbidities now 11 days out from a cemented bipolar hip arthroplasty for fracture. She is doing pretty well from the hip standpoint. She got multiple other complaints most specifically related to her GI system now. Hip has done okay. Pain is controlled. Physical Exam Physical Exam: Physical [place] was a pleasant middle-aged female. She is lying in bed this morning. Examination left hip reveals the dressing be clean dry and intact. Leg lengths are equal. She can dorsiflex and plantarflex her foot appropriately. She is neurologically intact. Results & Data Vital Signs (Past 12 Hours) Vital Signs O2 Del Method 04/20/23 07:38 Room Air Laboratory Results Hemoglobin is 8.6. Hematocrit is 28.1. PG Care Time/CCT Total # of Minutes Spent Total Time Spent with Patient: Total time spent is greater than 50% in coordination of care (as documented) at patient's floor/unit and/or counseling patient: Coding Level of Care Code None Diagnoses History of partial replacement of left hip joint using bipolar prosthesis Z96.642
[2023-04-20] MEDS: INSULIN ASPART PER UNIT CHARGE SC SCH ×4 (09:00→20:54)
[2023-04-20] MEDS: MoRPHine SULFATE 4 MG/ML 1 ML CARP\\VIAL IV PRN ×3 (09:20→20:49)
[2023-04-20] MEDS: SENNOSIDES 8.8 MG/5 ML UDC PO SCH (13:31)
[2023-04-20] MEDS: traZODone HCL 50 MG TAB PO SCH (20:01)
[2023-04-20] MEDS: ATORVASTATIN 40 MG TAB PO SCH (20:02)
[2023-04-20] MEDS: PANTOprazole 40 MG TAB PO SCH (20:02)
[2023-04-20] MEDS: LANTUS PER UNIT CHARGE SC SCH (20:53)
--- NOTE | 2023-04-20 23:04 | Hospitalist Progress Note ---
Date of Service April 20, 2023 Assessment & Plan (1) Left displaced femoral neck fracture: Plan: Fall in a 62 yo female resulting in a left displaced femoral neck fracture . S/P repair 04/09 with biploar hip replacement Resumed apixaban at lower dose, will resume full dose at discharge. acute blood loss anemia second unit of blood transfused on 04/11/2023 patient medically stable authorization is requested for rehabilitation placement Pending. x ray of elbow for left elbow pain without acute fracture or dislocation . Patient has not had a bowel movement since 04/07, after soap suds, patient had a bowel movement on 04/19 will reorder on 04/20 as patient refused digital desimpaction. (2) Type 2 diabetes mellitus: Plan: Consult glycemic control. short acting insulin ACHS and Insulin glargine mahnaz with ckd4 elevated BUN and CR likley from ATN, hemoglobin has been stable nephrology consult administered intravenous iron EPO given as was on as outpt monthly patient receiving IV iron on 04/14/2023 per nephrology (3) Diastolic CHF: Plan: continue Holding diuretics. ivf will be discontinued 9 does not appear to be in overt heart failure but does have significant hypoxia. Continue to watch clinically Patient does not appear to be in acute CHF with anemia and worsened renal function will transfuse additional blood on 04/11/2023 Plan DVT: apixaban disposition was denied acute rehab pending auth for subacute rehab Admission and Anticipated Discharge Date Admission Date: April 08, 2023 Subjective Patient reports having crapms in her bottom, she feels like she needs to go to the bathroom but i having difficulty passing stool. She refused manual desimpaction and requested for the soap suds enema as she stated it helped yesterday. Review of Systems Review of Systems: All systems reviewed & are unremarkable except as noted in HPI & below Physical Exam Physical Exam: awake alert appropriate. card exam is regular abdomen: soft, bowel sounds positive Results & Data Results & Data Vital Signs (Past 12 Hours) Vital Signs Temp Pulse Resp BP Pulse Ox O2 Del Method 04/20/23 14:32 36.9 C 78 16 120/68 95 Room Air PG Care Time/CCT Total # of Minutes Spent Total Time Spent with Patient: Total time spent is greater than 50% in coordination of care (as documented) at patient's floor/unit and/or counseling patient: Coding Level of Care Code 76875 SUB INP/OBS CARE Diagnoses Left displaced femoral neck fracture S72.002A Type 2 diabetes mellitus with other specified complication, with long-term current 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 E11.69; Z79.4 Diabetes mellitus complication status: with other specified complication Diabetes mellitus extermination inspector insulin use: with extermination inspector use Diastolic CHF I50.30 (2) Type 2 diabetes mellitus Diabetes mellitus complication status: with other specified complication Diabetes mellitus extermination inspector insulin use: with custodial use Qualified Code(s): E11.69 - Type 2 diabetes mellitus with other specified complication; Z79.4 - terminal supervisor (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
[2023-04-21] MEDS: MoRPHine SULFATE 4 MG/ML 1 ML CARP\\VIAL IV PRN (02:26)
[2023-04-21] MEDS: LEVOTHYROXINE SODIUM 50 MCG TABLET PO SCH (05:30)
[2023-04-21] MEDS: APIXABAN 2.5 MG TAB PO SCH (05:30)
[2023-04-21 07:04] LABS: Hematocrit (blood only) 29.2 % (37.0-47.0); Hemoglobin 8.7 g/dl (12.0-16.0); Mean Corpuscular Hemoglobin 26.9 pg (25.0-34.0); Mean Corpuscular Hgb Conc 29.8 g/dL (32.0-36.0); Mean Corpuscular Volume 90.1 fL (80.0-100.0); Mean Platelet Volume 10.8 fL (9.4-12.4); Platelet Count 161 K/uL (130-400); RDW Coefficient of Variation 16.6 % (11.5-14.5); Red Blood Count 3.24 M/uL (4.20-5.40)
[2023-04-21 07:20] LABS: BUN Creatinine Ratio 26.7 (10-20); Creatinine Clr Calc Pharmacy 27.1 ml/min; Est GFR (African American) 20.5 ml/min; Est GFR (Non-African American) 17.7 ml/min; Potassium 4.9 mmol/L (3.5-5.1)
[2023-04-21] MEDS: PREGABALIN 50 MG CAP PO SCH ×2 (09:53→20:27)
[2023-04-21] MEDS: fluvoxaMINE MALEATE 50 MG TAB PO SCH ×2 (09:53→20:28)
[2023-04-21] MEDS: busPIRone 15 MG TAB PO SCH ×2 (09:54→20:28)
[2023-04-21] MEDS: SENNOSIDES 8.8 MG/5 ML UDC PO SCH ×2 (09:54→20:30)
[2023-04-21] MEDS: DOCUSATE SODIUM 100 MG CAP PO SCH ×2 (09:54→20:29)
[2023-04-21] MEDS: METOPROLOL SUCC 25MG EXT REL TAB PO SCH (09:54)
[2023-04-21] MEDS: DICLOFENAC SOD 1% GEL 100 GM TUBE EXT SCH ×2 (09:57→20:28)
[2023-04-21] MEDS: INSULIN ASPART PER UNIT CHARGE SC SCH ×4 (09:58→20:42)
[2023-04-21] MEDS ORDERED: MAGNESIUM HYDROXIDE SUSP 30 ML UDC PO ONE (11:41)
[2023-04-21] MEDS ORDERED: bisacodyL 10 MG SUPP PR STA (11:41)
--- NOTE | 2023-04-21 12:36 | Hospitalist Progress Note ---
Date of Service April 21, 2023 Assessment & Plan (1) Left displaced femoral neck fracture: Plan: Mechanical fall in a 62 yo female resulting in a left displaced femoral neck fracture S/P repair 04/09 with biploar hip replacement acute blood loss anemia second unit of blood transfused on 04/11/2023 patient medically stable authorization is requested for rehabilitation placement x ray of elbow for left elbow pain without acute fracture or dislocation . Having ongoing issues with severe constipation causing rectal spasms Continue pain control as needed Stable from Ortho standpoint for discharge with plans for f/u in office 1-2 more weeks Elietelvina and TEDs for DV proph (2) Anemia: Plan: with acute blood loss anemia in setting of chronic anemia of CKD and also with h/o gastric bypass surgery B12, folate a few months ago normal, iron studies here consistent with chronic disease received PRBC transfusion, Epogen, hgb stable again today at 8.7 Follow CBC (3) Constipation: Plan: severe, fecal impaction with rectal spasms-no abd pain or N/V or evidence of obstruction. Opioids contributing KUB shows impaction, had no BM for 10 days and had moderate amount a few days ago after tap water and soap suds enema continue senna and increase to bid start Miralax tid scheduled add MOM x1, bisacodyl CO x 1 repeat KUB encouraged ambulation with assistance and drinking fluids (4) Type 2 diabetes mellitus: Plan: Well controlled Consult glycemic control appreciated Continue short acting insulin ACHS and Insulin glargine (5) Diastolic CHF: Plan: Euvolemic continue holding home Bumex (6) Obsessive compulsive disorder: Plan: continue home fluvoxamine (7) Status post gastric bypass for obesity: Plan: noted (8) Hypothyroidism: Plan: continue home LT4 TSH normal 06/2022 (9) Chronic kidney disease, stage 4 (severe): Plan: Had PATY from ATN superimposed on CKD stage 4, bread and pastry baker peaked at 4.5, Nephrology was following continue to hold Bumex, was transfused blood now bread and pastry baker at baseline 2.7 can get rid of renal diet at pt's request, follow BMP closely renally dose meds stanislav Giraldo (10) Atrial flutter: Plan: permanent, rate controlled continue metoprolol increase Eliquis back to usual dose of 5mg bid Plan DVT: apixaban disposition- was denied acute rehab by insurance, awaiting SNF placement once constipation resolved Admission and Anticipated Discharge Date Admission Date: April 08, 2023 Anticipated date of discharge: 04/22/23 Subjective Still no BM in several days, feels rectal spasms which cause severe pain. No nausea, is eating. Requests to be off renal diet. Not much pain at all in left hip. No CP, SOB Physical Exam Constitutional: WD/WN, vitals as above Respiratory: normal respiratory effort, lungs clear to auscultation Cardiovascular: Rate/Rhythm: regular rate and + irregularly irregular Heart Sounds: + murmur (2/6 holosystolic murmur) Extremities: no edema Gastrointestinal (Abdomen): normal bowel sounds, soft, nontender, no hepatosplenomegaly Musculoskeletal: Extremities: + extremities abnormal to inspection (left hip with dressing in place c/d/i) Psychiatric: A+Ox3, euthymic affect Results & Data Results & Data Vital Signs (Past 12 Hours) Vital Signs Temp Pulse Resp BP Pulse Ox O2 Del Method 04/21/23 08:34 37 C 93 H 16 125/69 93 Room Air Laboratory Results CBC, BMP reviewed PG Care Time/CCT Total # of Minutes Spent Total Time Spent with Patient: Total time spent is greater than 50% in coordination of care (as documented) at patient's floor/unit and/or counseling patient: Coding Level of Care Code 91532 SUB INP/OBS CARE 2/35MIN Diagnoses Left displaced femoral neck fracture S72.002A Anemia D64.9 Constipation K59.00 Type 2 diabetes mellitus with other specified complication, with long-term current 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 E11.69; Z79.4 Diabetes mellitus detention insulin use: with director long term care use Diabetes mellitus complication status: with other specified complication Diastolic CHF I50.30 Obsessive compulsive disorder F42.9 Status post gastric bypass for obesity Z98.84 Hypothyroidism E03.9 Chronic kidney disease, stage 4 (severe) N18.4 Atrial flutter I48.92 (4) Type 2 diabetes mellitus Diabetes mellitus director long term care insulin use: with detention use Diabetes mellitus complication status: with other specified complication Qualified Code(s): E11.69 - Type 2 diabetes mellitus with other specified complication; Z79.4 - predatory animal exterminator (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
[2023-04-21] MEDS: MoRPHine SULFATE 2 MG/ML CARP IV PRN (13:35)
[2023-04-21] MEDS: POLYETHYLENE (MIRALAX) 17 GM PACK PO SCH ×2 (13:38→20:30)
[2023-04-21] MEDS: oxyCODONE HCL IR 5 MG TAB (IMMEDIATE RELEASE) PO PRN (15:34)
[2023-04-21] MEDS ORDERED: MINERAL OIL ENEMA 133 ML BTL PR ONE (16:47)
--- NOTE | 2023-04-21 17:02 | XRay Report ---
XR KUB/Abdomen 1 view CLINICAL HISTORY: f/u fecal impaction TECHNIQUE: 1 view of the abdomen was obtained. Comparison: Comparison is made to abdomen radiograph 04/18/2023 FINDINGS: Cholecystomy clips are seen in the right upper quadrant. Postsurgical changes of left total hip arthr oplasty. Degenerative changes are seen in the visualized skeleton. The bowel gas pattern is nonobstru ctive. Moderate stool burden is seen with a rectal stool ball. IMPRESSION: Moderate stool burden with a large amount of rectal stool, similar in appearance to prior exam. ACT 112: Negative or not required by law. Electronically signed by: Farhan Higgins M.D. 04/21/2023 5:00 PM
[2023-04-21] MEDS: traZODone HCL 50 MG TAB PO SCH (20:27)
[2023-04-21] MEDS: APIXABAN 5 MG TABLET PO SCH (20:28)
[2023-04-21] MEDS: ATORVASTATIN 40 MG TAB PO SCH (20:29)
[2023-04-21] MEDS: PANTOprazole 40 MG TAB PO SCH (20:30)
[2023-04-21] MEDS: LANTUS PER UNIT CHARGE SC SCH (20:43)
[2023-04-22] MEDS: LEVOTHYROXINE SODIUM 50 MCG TABLET PO SCH (05:30)
[2023-04-22 08:01] LABS: Basophils # (auto) 0.02 K/uL (0.00-0.20); Basophils % (auto) 0.2 %; Eosinophils # (auto) 0.07 K/uL (0.00-0.50); Eosinophils % (auto) 0.8 %; Hematocrit (blood only) 27.1 % (37.0-47.0); Hemoglobin 8.2 g/dl (12.0-16.0); Immature Granulocytes # (auto) 0.05 K/uL (0.01-0.20); Immature Granulocytes % (auto) 0.6 %; Lymphocytes # (auto) 1.16 K/uL (1.20-3.40); Lymphocytes % (auto) 12.8 %; Mean Corpuscular Hemoglobin 27.1 pg (25.0-34.0); Mean Corpuscular Hgb Conc 30.3 g/dL (32.0-36.0); Mean Corpuscular Volume 89.4 fL (80.0-100.0); Mean Platelet Volume 11.2 fL (9.4-12.4); Monocytes % (auto) 6.6 %; Neutrophils # (auto) 7.18 K/uL (1.40-6.50); Platelet Count 169 K/uL (130-400); RDW Coefficient of Variation 16.6 % (11.5-14.5); RDW Standard Deviation 52.5 fL (36.4-46.3); Red Blood Count 3.03 M/uL (4.20-5.40); White Blood Count 9.08 K/ul (4.8-10.8)
[2023-04-22 08:20] LABS: BUN Creatinine Ratio 27.1 (10-20); Calcium 7.9 mg/dl (8.6-10.3); Creatinine Clr Calc Pharmacy 28.2 ml/min; Est GFR (African American) 21.5 ml/min; Est GFR (Non-African American) 18.6 ml/min; Potassium 5.1 mmol/L (3.5-5.1)
[2023-04-22] MEDS: APIXABAN 5 MG TABLET PO SCH ×2 (09:01→20:41)
[2023-04-22] MEDS: fluvoxaMINE MALEATE 50 MG TAB PO SCH ×2 (09:02→20:40)
[2023-04-22] MEDS: METOPROLOL SUCC 25MG EXT REL TAB PO SCH (09:02)
[2023-04-22] MEDS: DOCUSATE SODIUM 100 MG CAP PO SCH ×2 (09:02→20:40)
[2023-04-22] MEDS: POLYETHYLENE (MIRALAX) 17 GM PACK PO SCH ×3 (09:02→20:41)
[2023-04-22] MEDS: busPIRone 15 MG TAB PO SCH ×2 (09:02→20:41)
[2023-04-22] MEDS: DICLOFENAC SOD 1% GEL 100 GM TUBE EXT SCH ×2 (09:04→20:40)
[2023-04-22] MEDS: INSULIN ASPART PER UNIT CHARGE SC SCH ×4 (09:13→20:50)
[2023-04-22] MEDS: PREGABALIN 50 MG CAP PO SCH ×2 (09:13→20:40)
[2023-04-22] MEDS: SENNOSIDES 8.8 MG/5 ML UDC PO SCH ×2 (09:20→20:42)
--- NOTE | 2023-04-22 11:30 | XRay Report ---
KUB HISTORY: Acute generalized abdominal pain f/u fecal impaction COMPARISON: KUB 04/21/2023, 04/18/2023. FINDINGS: Mild gaseous distention of the stomach. Cholecystectomy. A few borderline to dilated loops of small bowel noted within the central abdomen measuring up to 4.3 cm, similar to prior. Air is also noted within the large bowel. Mild fecal retention has improved compared to 04/18/2023 study. No harlan al calculi. No ureteral calculi. No pneumoperitoneum or pneumatosis. Left hip arthroplasty with later al skin kari. No fracture. IMPRESSION: 1. Mild colonic fecal retention has improved compared to the 04/18/2023 exam. 2. Air-filled loops of large and small bowel with borderline small bowel dilation is likely physiolog ic or may represent a mild ileus. 3. Left hip arthroplasty. ACT 112: Negative or not required by law. The above report was generated using voice recognition software. It may contain grammatical, syntax o r spelling errors. Electronically signed by: Timothy Tracy M.D. 04/22/2023 11:29 AM
--- NOTE | 2023-04-22 15:11 | Hospitalist Progress Note ---
Date of Service April 22, 2023 Assessment & Plan (1) Left displaced femoral neck fracture: Plan: Mechanical fall resulting in left displaced femoral neck fracture S/P repair 04/09 with biploar hip replacement acute blood loss anemia, second unit of blood transfused on 04/11/2023 x ray of elbow for left elbow pain without acute fracture or dislocation . Having ongoing issues with severe constipation causing rectal spasms-now improving Continue pain control as needed Stable from Ortho standpoint for discharge with plans for f/u in office 1-2 more weeks [facility] for DV proph (2) Anemia: Plan: with acute blood loss anemia in setting of chronic anemia of CKD and also with h/o gastric bypass surgery B12, folate a few months ago normal, iron studies here consistent with chronic disease received PRBC transfusion, Epogen, hgb stable again today at 8.2 Follow CBC (3) Constipation: Plan: severe, fecal impaction with rectal spasms-no abd pain or N/V or evidence of obstruction. Opioids contributing KUB shows impaction, had no BM for 10 days and had moderate amount after tap water and soap suds enema Now moving large amounts of stool 04/21-04/22, feeling better-after starting Miralax tid, MOM x 1,Bisacodyl suppos, and manual disimpaction continue senna bid, docusate bid, Miraalax tid repeat KUB with mild ileus but much less fecal load on 04/22 encouraged ambulation with assistance and drinking fluids bladder scan now as she feels she has to urinate and cannot (4) Type 2 diabetes mellitus: Plan: Well controlled Consult glycemic control appreciated Continue short acting insulin ACHS and Insulin glargine (5) Diastolic CHF: Plan: Euvolemic continue holding home Bumex (6) Obsessive compulsive disorder: Plan: continue home fluvoxamine (7) Status post gastric bypass for obesity: Plan: noted (8) Hypothyroidism: Plan: continue home LT4 TSH normal 06/2022 (9) Chronic kidney disease, stage 4 (severe): Plan: Had PATY from [facility] superimposed on CKD stage 4, engine cleaner peaked at 4.5, Nephrology was following continue to hold Bumex, was transfused blood now engine cleaner at baseline 2.6 follow BMP renally dose meds (10) Atrial flutter: Plan: permanent, rate controlled continue metoprolol Continue Eliquis 5mg bid Plan DVT: apixaban disposition- was denied acute rehab by insurance, awaiting SNF placement - medically stable for discharge Admission and Anticipated Discharge Date Admission Date: April 08, 2023 Anticipated date of discharge: 04/23/23 Subjective Moving bowels several times with large amounts since yesterday. Still has pain in her bottom. Did get out of bed with RN and with PT today. Still requesting Purewick catheter because she is not sure if she can make it to the toilet although RN reports she did urinate today in the toilet. No CP, SOB Physical Exam Constitutional: WD/WN, vitals as above Respiratory: normal respiratory effort, lungs clear to auscultation Cardiovascular: Rate/Rhythm: regular rate and + irregularly irregular Heart Sounds: + murmur (2/6 holosystolic murmur) Extremities: no edema Gastrointestinal (Abdomen): normal bowel sounds, soft, nontender, no hepatosplenomegaly Musculoskeletal: Extremities: + extremities abnormal to inspection (left hip with dressing in place c/d/i) Psychiatric: A+Ox3, euthymic affect Results & Data Results & Data Vital Signs (Past 12 Hours) Vital Signs Temp Pulse Resp BP Pulse Ox O2 Del Method 04/22/23 07:03 37.1 C 93 H 16 139/77 96 Room Air Laboratory Results CBC, BMP reviewed PG Care Time/CCT Total # of Minutes Spent Total Time Spent with Patient: Total time spent is greater than 50% in coordination of care (as documented) at patient's floor/unit and/or counseling patient: Coding Level of Care Code 88828 SUB INP/OBS CARE 2/35MIN Diagnoses Left displaced femoral neck fracture S72.002A Anemia D64.9 Constipation K59.00 Type 2 diabetes mellitus with other specified complication, with long-term current 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 E11.69; Z79.4 Diabetes mellitus ocean transportation intermediary insulin use: with ocean transportation intermediary use Diabetes mellitus complication status: with other specified complication Diastolic CHF I50.30 Obsessive compulsive disorder F42.9 Status post gastric bypass for obesity Z98.84 Hypothyroidism E03.9 Chronic kidney disease, stage 4 (severe) N18.4 Atrial flutter I48.92 (4) Type 2 diabetes mellitus Diabetes mellitus retirement insulin use: with ocean transportation intermediary use Diabetes mellitus complication status: with other specified complication Qualified Code(s): E11.69 - Type 2 diabetes mellitus with other specified complication; Z79.4 - intermodal dispatcher (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
[2023-04-22] MEDS: traZODone HCL 50 MG TAB PO SCH (20:40)
[2023-04-22] MEDS: PANTOprazole 40 MG TAB PO SCH (20:40)
[2023-04-22] MEDS: ATORVASTATIN 40 MG TAB PO SCH (20:41)
[2023-04-22] MEDS: LANTUS PER UNIT CHARGE SC SCH (20:50)
[2023-04-23] MEDS: LEVOTHYROXINE SODIUM 50 MCG TABLET PO SCH (06:04)
[2023-04-23 08:02] LABS: Basophils # (auto) 0.02 K/uL (0.00-0.20); Basophils % (auto) 0.2 %; Eosinophils # (auto) 0.11 K/uL (0.00-0.50); Eosinophils % (auto) 1.3 %; Hematocrit (blood only) 30.3 % (37.0-47.0); Hemoglobin 9.1 g/dl (12.0-16.0); Immature Granulocytes # (auto) 0.05 K/uL (0.01-0.20); Immature Granulocytes % (auto) 0.6 %; Lymphocytes # (auto) 1.49 K/uL (1.20-3.40); Lymphocytes % (auto) 17.1 %; Mean Corpuscular Hemoglobin 27.3 pg (25.0-34.0); Mean Platelet Volume 10.9 fL (9.4-12.4); Monocytes # (auto) 0.57 K/uL (0.11-0.59); Monocytes % (auto) 6.6 %; Neutrophils # (auto) 6.45 K/uL (1.40-6.50); Neutrophils % (auto) 74.2 %; Platelet Count 200 K/uL (130-400); RDW Coefficient of Variation 16.7 % (11.5-14.5); RDW Standard Deviation 53.9 fL (36.4-46.3); Red Blood Count 3.33 M/uL (4.20-5.40); White Blood Count 8.69 K/ul (4.8-10.8)
[2023-04-23] MEDS: fluvoxaMINE MALEATE 50 MG TAB PO SCH ×2 (08:14→20:22)
[2023-04-23] MEDS: METOPROLOL SUCC 25MG EXT REL TAB PO SCH (08:14)
[2023-04-23] MEDS: DOCUSATE SODIUM 100 MG CAP PO SCH ×2 (08:14→20:22)
[2023-04-23] MEDS: busPIRone 15 MG TAB PO SCH ×2 (08:14→20:22)
[2023-04-23] MEDS: APIXABAN 5 MG TABLET PO SCH ×2 (08:14→20:21)
[2023-04-23] MEDS: SENNOSIDES 8.8 MG/5 ML UDC PO SCH ×2 (08:15→20:22)
[2023-04-23] MEDS: POLYETHYLENE (MIRALAX) 17 GM PACK PO SCH ×3 (08:15→20:22)
[2023-04-23] MEDS: PREGABALIN 50 MG CAP PO SCH ×2 (08:19→20:20)
[2023-04-23] MEDS: INSULIN ASPART PER UNIT CHARGE SC SCH ×4 (08:24→20:43)
[2023-04-23 08:30] LABS: BUN Creatinine Ratio 25.7 (10-20); Creatinine Clr Calc Pharmacy 27.2 ml/min; Est GFR (African American) 20.6 ml/min; Est GFR (Non-African American) 17.7 ml/min
[2023-04-23] MEDS: DICLOFENAC SOD 1% GEL 100 GM TUBE EXT SCH ×2 (10:28→20:20)
--- NOTE | 2023-04-23 17:46 | Hospitalist Progress Note ---
Date of Service April 23, 2023 Assessment & Plan (1) Left displaced femoral neck fracture: Plan: Mechanical fall resulting in left displaced femoral neck fracture S/P repair 04/09 with biploar hip replacement acute blood loss anemia, second unit of blood transfused on 04/11/2023 x ray of elbow for left elbow pain without acute fracture or dislocation . Having ongoing issues with severe constipation causing rectal spasms-now much improved Continue pain control as needed-not needing anything Stable from Ortho standpoint for discharge with plans for f/u in office 1-2 more weeks Tommy for DV proph (2) Anemia: Plan: with acute blood loss anemia in setting of chronic anemia of CKD and also with h/o gastric bypass surgery B12, folate a few months ago normal, iron studies here consistent with chronic disease received PRBC transfusion, Epogen, hgb improved at 9.1 Follow CBC (3) Constipation: Plan: severe, fecal impaction with rectal spasms-no abd pain or N/V or evidence of obstruction. Opioids contributing which she is now not taking since 04/21 KUB shows impaction, had no BM for 10 days and had moderate amount after tap water and soap suds enema Now moving large amounts of stool 04/21-04/22, feeling better-after starting Miralax tid, MOM x 1,Bisacodyl suppos, and manual disimpaction continue senna bid, docusate bid, Miralax tid repeat KUB with mild ileus but much less fecal load on 04/22 Pt having small loose stools 04/23 but would like another laxative t help her move her bowels more substantially--add on 1/2 bottle of Mag citrate encouraged ambulation with assistance and drinking fluids (4) Urinary retention: Plan: Giraldo removed 04/22 and required multiple straight caths since then fo rlarge volumes constipation, immobility, and previous opioid use all contributing she is no longer taking the opioids for pain Encouraged ambulation Giraldo placed continue to work on bowel regimen (5) Type 2 diabetes mellitus: Plan: Well controlled Consult glycemic control appreciated Continue short acting insulin ACHS and Insulin glargine (6) Diastolic CHF: Plan: Euvolemic continue holding home Bumex (7) Obsessive compulsive disorder: Plan: continue home fluvoxamine (8) Status post gastric bypass for obesity: Plan: noted (9) Hypothyroidism: Plan: continue home LT4 TSH normal 06/2022 (10) Chronic kidney disease, stage 4 (severe): Plan: Had PATY from [facility] superimposed on CKD stage 4, rock cutter peaked at 4.5, Nephrology was following continue to hold Bumex, was transfused blood now rock cutter at baseline 2.6-2.7 follow BMP renally dose meds (11) Atrial flutter: Plan: permanent, rate controlled continue metoprolol Continue Eliquis 5mg bid Plan DVT: apixaban disposition- was denied acute rehab by insurance, awaiting SNF placement - medically stable for discharge Admission and Anticipated Discharge Date Admission Date: April 08, 2023 Subjective Pt has been retaining urine in large amounts since Giraldo removed and required 2 straight caths and then Giraldo placement today. She reports no BM today except a few "small squirts." SHe is requesting something more to move her bowels. Still has pain at site of sacral wound but has not taken any opioids in 3 days. Did get OOB to chair today. Is eating. Is requesting to see Nephrology but I informed her that her renal function is stable and Nephrology signed off her case last week and she was ok with this. Physical Exam Constitutional: WD/WN, vitals as above Respiratory: normal respiratory effort, lungs clear to auscultation Cardiovascular: Rate/Rhythm: regular rate and + irregularly irregular Heart Sounds: + murmur (2/6 holosystolic murmur) Extremities: no edema Gastrointestinal (Abdomen): normal bowel sounds, soft, nontender, no hepatosplenomegaly Musculoskeletal: Extremities: + extremities abnormal to inspection (left hip with dressing in place c/d/i) Psychiatric: A+Ox3, euthymic affect Results & Data Results & Data Vital Signs (Past 12 Hours) Vital Signs Temp Pulse Resp BP Pulse Ox O2 Del Method 04/23/23 17:44 36.8 C 77 10 L 136/79 98 Room Air 04/23/23 14:02 Room Air 04/23/23 12:30 36.8 C 77 18 124/69 97 Room Air 04/23/23 07:46 36.8 C 82 16 147/70 H 95 Room Air Laboratory Results CBC,BMP reviewed PG Care Time/CCT Total # of Minutes Spent Total Time Spent with Patient: Total time spent is greater than 50% in coordination of care (as documented) at patient's floor/unit and/or counseling patient: Coding Level of Care Code 26064 SUB INP/OBS CARE Diagnoses Left displaced femoral neck fracture S72.002A Anemia D64.9 Constipation K59.00 Urinary retention R33.9 Type 2 diabetes mellitus with other specified complication, with long-term current 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 E11.69; Z79.4 Diabetes mellitus complication status: with other specified complication Diabetes mellitus continuous churn buttermaker insulin use: with detention use Diastolic CHF I50.30 Obsessive compulsive disorder F42.9 Status post gastric bypass for obesity Z98.84 Hypothyroidism E03.9 Chronic kidney disease, stage 4 (severe) N18.4 Atrial flutter I48.92 (5) Type 2 diabetes mellitus Diabetes mellitus complication status: with other specified complication Diabetes mellitus continuous churn buttermaker insulin use: with detention use Qualified Code(s): E11.69 - Type 2 diabetes mellitus with other specified complication; Z79.4 - MCFP (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
[2023-04-23] MEDS ORDERED: MAGNESIUM CITRATE 296 ML/BTL PO ONE (18:06)
[2023-04-23] MEDS: traZODone HCL 50 MG TAB PO SCH (20:20)
[2023-04-23] MEDS: PANTOprazole 40 MG TAB PO SCH (20:21)
[2023-04-23] MEDS: ATORVASTATIN 40 MG TAB PO SCH (20:23)
[2023-04-23] MEDS: LANTUS PER UNIT CHARGE SC SCH (20:44)
[2023-04-24] MEDS: LEVOTHYROXINE SODIUM 50 MCG TABLET PO SCH (05:33)
[2023-04-24 08:14] LABS: Basophils # (auto) 0.02 K/uL (0.00-0.20); Basophils % (auto) 0.3 %; Eosinophils # (auto) 0.14 K/uL (0.00-0.50); Eosinophils % (auto) 2.1 %; Hematocrit (blood only) 26.7 % (37.0-47.0); Hemoglobin 8.1 g/dl (12.0-16.0); Immature Granulocytes # (auto) 0.05 K/uL (0.01-0.20); Immature Granulocytes % (auto) 0.8 %; Lymphocytes # (auto) 1.21 K/uL (1.20-3.40); Lymphocytes % (auto) 18.5 %; Mean Corpuscular Hemoglobin 27.2 pg (25.0-34.0); Mean Corpuscular Hgb Conc 30.3 g/dL (32.0-36.0); Mean Corpuscular Volume 89.6 fL (80.0-100.0); Mean Platelet Volume 10.4 fL (9.4-12.4); Monocytes # (auto) 0.43 K/uL (0.11-0.59); Monocytes % (auto) 6.6 %; Neutrophils # (auto) 4.69 K/uL (1.40-6.50); Neutrophils % (auto) 71.7 %; Platelet Count 178 K/uL (130-400); RDW Coefficient of Variation 16.8 % (11.5-14.5); RDW Standard Deviation 53.7 fL (36.4-46.3); Red Blood Count 2.98 M/uL (4.20-5.40); White Blood Count 6.54 K/ul (4.8-10.8)
[2023-04-24] MEDS: INSULIN ASPART PER UNIT CHARGE SC SCH ×4 (08:37→20:47)
[2023-04-24 08:38] LABS: Calcium 7.8 mg/dl (8.6-10.3); Magnesium 2.6 mg/dl (1.7-2.4); Potassium 5.2 mmol/L (3.5-5.1)
[2023-04-24] MEDS: METOPROLOL SUCC 25MG EXT REL TAB PO SCH (08:38)
[2023-04-24] MEDS: fluvoxaMINE MALEATE 50 MG TAB PO SCH ×2 (08:38→20:13)
[2023-04-24] MEDS: APIXABAN 5 MG TABLET PO SCH ×2 (08:38→20:13)
[2023-04-24] MEDS: busPIRone 15 MG TAB PO SCH ×2 (08:39→20:12)
[2023-04-24] MEDS: DOCUSATE SODIUM 100 MG CAP PO SCH ×2 (08:39→20:12)
[2023-04-24] MEDS: POLYETHYLENE (MIRALAX) 17 GM PACK PO SCH ×3 (08:39→20:12)
[2023-04-24] MEDS: DICLOFENAC SOD 1% GEL 100 GM TUBE EXT SCH ×2 (08:39→20:12)
[2023-04-24] MEDS: SENNOSIDES 8.8 MG/5 ML UDC PO SCH ×2 (08:40→20:12)
[2023-04-24 08:44] LABS: BUN Creatinine Ratio 24.8 (10-20); Creatinine Clr Calc Pharmacy 27.4 ml/min; Est GFR (African American) 20.7 ml/min; Est GFR (Non-African American) 17.9 ml/min
[2023-04-24] MEDS: PREGABALIN 50 MG CAP PO SCH ×2 (08:44→20:11)
[2023-04-24] MEDS: PATIROMER CALCIUM SORBITEX 8.4 GM PACK PO SCH (11:24)
[2023-04-24] MEDS: MoRPHine SULFATE 2 MG/ML CARP IV PRN (13:46)
--- NOTE | 2023-04-24 14:02 | Hospitalist Progress Note ---
Date of Service April 24, 2023 Assessment & Plan (1) Left displaced femoral neck fracture: Plan: Mechanical fall resulting in left displaced femoral neck fracture S/P repair 04/09 with biploar hip replacement acute blood loss anemia, second unit of blood transfused on 04/11/2023 x ray of elbow for left elbow pain without acute fracture or dislocation . Having ongoing issues with severe constipation causing rectal spasms-now resolved With sacral decubitus wound causing a lot of pain Continue pain control as needed-add on Tylenol and tramadol, continue IV morphine for severe pain Stable from Ortho standpoint for discharge with plans for f/u in office 1-2 more weeks Eliquis and TEDs for DVT proph (2) Anemia: Plan: with acute blood loss anemia in setting of chronic anemia of CKD and also with h/o gastric bypass surgery B12, folate a few months ago normal, iron studies here consistent with chronic disease received PRBC transfusion, Epogen, hgb improved at 8.1 Follow CBC (3) Constipation: Plan: severe, fecal impaction with rectal spasms-no abd pain or N/V or evidence of obstruction. Opioids contributing which she is now not taking since 04/21 KUB shows impaction, had no BM for 10 days and had moderate amount after tap water and soap suds enema Now moving large amounts of stool 04/21-04/22, feeling better-after starting Miralax tid, MOM x 1,Bisacodyl suppos, and manual disimpaction continue senna bid, docusate bid, Miralax tid repeat KUB with mild ileus but much less fecal load on 04/22 Now moving bowels large amounts and regularly (4) Urinary retention: Plan: Giraldo removed 04/22 and required multiple straight caths since then fo rlarge volumes constipation, immobility, and previous opioid use all contributing she is no longer taking the opioids for pain Encouraged ambulation Giraldo placed again 04/23 continue bowel regimen (5) Type 2 diabetes mellitus: Plan: Well controlled Consult glycemic control appreciated Continue short acting insulin ACHS and Insulin glargine (6) Diastolic CHF: Plan: developing ankle and leg edema restart home Bumex (7) Obsessive compulsive disorder: Plan: continue home fluvoxamine (8) Status post gastric bypass for obesity: Plan: noted (9) Hypothyroidism: Plan: continue home LT4 TSH normal 06/2022 (10) Chronic kidney disease, stage 4 (severe): Plan: Had PATY from [facility] superimposed on CKD stage 4, 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 Is moving bowels large amoutn today. No CP, SOB. She did ambulate the halls. She refused to take the Patiromer ordered Physical Exam Constitutional: WD/WN, vitals as above Respiratory: normal respiratory effort, lungs clear to auscultation Cardiovascular: Rate/Rhythm: regular rate and + irregularly irregular Heart Sounds: + murmur (2/6 holosystolic murmur) Extremities: no edema Gastrointestinal (Abdomen): normal bowel sounds, soft, nontender, no hepatosplenomegaly Musculoskeletal: Extremities: + extremities abnormal to inspection (left hip with dressing in place c/d/i) Psychiatric: A+Ox3, euthymic affect Results & Data Results & Data Vital Signs (Past 12 Hours) Vital Signs Temp Pulse Resp BP Pulse Ox O2 Del Method 04/24/23 09:19 Room Air 04/24/23 06:55 36.7 C 79 16 130/75 95 Room Air Laboratory Results CBC, BMP, magnesium reviewed PG Care Time/CCT Total # of Minutes Spent Total Time Spent with Patient: Total time spent is greater than 50% in coordination of care (as documented) at patient's floor/unit and/or counseling patient: Coding Level of Care Code 81047 SUB INP/OBS CARE 2/35MIN Diagnoses Left displaced femoral neck fracture S72.002A Anemia D64.9 Constipation K59.00 Urinary retention R33.9 Type 2 diabetes mellitus with other specified complication, with long-term current 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 E11.69; Z79.4 Diabetes mellitus complication status: with other specified complication Diabetes mellitus retirement insulin use: with retirement use Diastolic CHF I50.30 Obsessive compulsive disorder F42.9 Status post gastric bypass for obesity Z98.84 Hypothyroidism E03.9 Chronic kidney disease, stage 4 (severe) N18.4 Atrial flutter I48.92 Sacral decubitus ulcer L89.159 (5) Type 2 diabetes mellitus Diabetes mellitus complication status: with other specified complication Diabetes mellitus intermodal customer service insulin use: with intermodal customer service use Qualified Code(s): E11.69 - Type 2 diabetes mellitus with other specified complication; Z79.4 - intermodal customer service (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
--- NOTE | 2023-04-24 15:06 | Orthopedic Progress Note ---
Date of Service April 24, 2023 Assessment & Plan (1) History of partial replacement of left hip joint using bipolar prosthesis: Incision looks good. [place] removed and steri strips applied today. She is awaiting placement/rehab for discharge. Continue wound care for sacral wound. Dvt prophylaxis: teds, scd's, eliquis PT/OT: wbat, hip precautions. She should follow up with Dr. Childress in approximately 1 month since we removed the kari today. Will discuss with Dr. Childress. Subjective . 62 year old patient 15 days s/p left hip cemented bipolar hemiarthroplasty for a fracture. Hip seems to be doing well. Not having much pain. Says she walked quite a bit today. She has been waiting placement for discharge. She has developed a sacral wound that is painful. Wound care is seeing her. Review of Systems All systems reviewed & are unremarkable except as noted in HPI & below. Physical Exam .alert and oriented. NAD Left hip: incision well approximated, no drainage, no erythema, kari intact. Leg well aligned. Hip located. NVI Results & Data Results & Data Laboratory Results . Diagnostic Findings . 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
[2023-04-24] MEDS: oxyCODONE HCL IR 5 MG TAB (IMMEDIATE RELEASE) PO PRN (15:12)
[2023-04-24] MEDS: BUMETANIDE 1 MG TAB PO SCH (16:10)
[2023-04-24] MEDS: traZODone HCL 50 MG TAB PO SCH (20:11)
[2023-04-24] MEDS: ATORVASTATIN 40 MG TAB PO SCH (20:12)
[2023-04-24] MEDS: PANTOprazole 40 MG TAB PO SCH (20:12)
[2023-04-24] MEDS: LANTUS PER UNIT CHARGE SC SCH (20:47)
[2023-04-25] MEDS: LEVOTHYROXINE SODIUM 50 MCG TABLET PO SCH (05:49)
[2023-04-25 08:05] LABS: Basophils # (auto) 0.03 K/uL (0.00-0.20); Basophils % (auto) 0.4 %; Eosinophils # (auto) 0.13 K/uL (0.00-0.50); Eosinophils % (auto) 1.9 %; Hematocrit (blood only) 29.4 % (37.0-47.0); Hemoglobin 8.8 g/dl (12.0-16.0); Immature Granulocytes # (auto) 0.05 K/uL (0.01-0.20); Immature Granulocytes % (auto) 0.7 %; Lymphocytes # (auto) 0.83 K/uL (1.20-3.40); Lymphocytes % (auto) 12.2 %; Mean Corpuscular Hemoglobin 27.4 pg (25.0-34.0); Mean Corpuscular Hgb Conc 29.9 g/dL (32.0-36.0); Mean Corpuscular Volume 91.6 fL (80.0-100.0); Mean Platelet Volume 10.6 fL (9.4-12.4); Monocytes # (auto) 0.48 K/uL (0.11-0.59); Neutrophils # (auto) 5.29 K/uL (1.40-6.50); Neutrophils % (auto) 77.8 %; Platelet Count 210 K/uL (130-400); RDW Coefficient of Variation 16.5 % (11.5-14.5); RDW Standard Deviation 54.6 fL (36.4-46.3); Red Blood Count 3.21 M/uL (4.20-5.40); White Blood Count 6.81 K/ul (4.8-10.8)
[2023-04-25 08:23] LABS: BUN Creatinine Ratio 25.1 (10-20); Creatinine Clr Calc Pharmacy 27.3 ml/min; Est GFR (African American) 20.7 ml/min; Est GFR (Non-African American) 17.8 ml/min
[2023-04-25] MEDS: fluvoxaMINE MALEATE 50 MG TAB PO SCH ×2 (08:56→20:25)
[2023-04-25] MEDS: busPIRone 15 MG TAB PO SCH ×2 (08:57→20:25)
[2023-04-25] MEDS: METOPROLOL SUCC 25MG EXT REL TAB PO SCH (08:57)
[2023-04-25] MEDS: DOCUSATE SODIUM 100 MG CAP PO SCH ×2 (08:57→20:24)
[2023-04-25] MEDS: BUMETANIDE 1 MG TAB PO SCH (08:57)
[2023-04-25] MEDS: APIXABAN 5 MG TABLET PO SCH ×2 (08:58→20:26)
[2023-04-25] MEDS: DICLOFENAC SOD 1% GEL 100 GM TUBE EXT SCH ×2 (08:58→20:24)
[2023-04-25] MEDS: INSULIN ASPART PER UNIT CHARGE SC SCH ×4 (08:59→20:52)
[2023-04-25] MEDS: SENNOSIDES 8.8 MG/5 ML UDC PO SCH ×2 (08:59→20:24)
[2023-04-25] MEDS: POLYETHYLENE (MIRALAX) 17 GM PACK PO SCH ×3 (08:59→20:24)
[2023-04-25] MEDS: PREGABALIN 50 MG CAP PO SCH ×2 (09:10→20:25)
[2023-04-25] MEDS: ACETAMINOPHEN 325 MG TAB PO PRN ×2 (09:15→14:22)
[2023-04-25] MEDS: PATIROMER CALCIUM SORBITEX 8.4 GM PACK PO SCH (11:00)
--- NOTE | 2023-04-25 12:08 | Hospitalist Progress Note ---
Date of Service April 25, 2023 Assessment & Plan (1) Left displaced femoral neck fracture: Plan: Mechanical fall resulting in left displaced femoral neck fracture S/P repair 04/09 with biploar hip replacement acute blood loss anemia, second unit of blood transfused on 04/11/2023 x ray of elbow for left elbow pain without acute fracture or dislocation . Having ongoing issues with severe constipation causing rectal spasms-now resolved With sacral decubitus wound causing a lot of pain-now better control Continue pain control as needed-Tylenol and tramadol, continue IV morphine for severe pain only Stable from Ortho standpoint for discharge -had kari removed here 04/24 and needs f/u with Ortho in 1 month Eliquis and TEDs for DVT proph (2) Anemia: Plan: with acute blood loss anemia in setting of chronic anemia of CKD and also with h/o gastric bypass surgery B12, folate a few months ago normal, iron studies here consistent with chronic disease received PRBC transfusion, Epogen, hgb improved at 8.8 Follow CBC (3) Constipation: Plan: severe, fecal impaction with rectal spasms-no abd pain or N/V or evidence of ob struction on KUB Now resolved after multiple laxatives, enemas, manual disimpaction continue senna bid, docusate bid, Miralax tid (4) Urinary retention: Plan: Oseguera removed 04/22 and required multiple straight caths since then for large volumes constipation, immobility, and previous opioid use all contributing she is no longer taking the opioids for pain Encouraged ambulation Oseguera placed again 04/23-maintain until more mobile and sacral ulcer healing continue bowel regimen (5) Type 2 diabetes mellitus: Plan: Well controlled Consult glycemic control appreciated Continue short acting insulin ACHS and Insulin glargine (6) Diastolic CHF: Plan: developing ankle and leg edema restarted home Bumex 04/24 (7) Obsessive compulsive disorder: Plan: continue home fluvoxamine (8) Status post gastric bypass for obesity: Plan: noted (9) Hypothyroidism: Plan: continue home LT4 TSH normal 06/2022 (10) Chronic kidney disease, stage 4 (severe): Plan: Had PATY from [facility] superimposed on CKD stage 4, 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, Nephrology was following Now with mild hyperkalemia improving with resuming Bumex and low K+ diet Refusing Patiromer continue low K+ diet and Bumex dielectric embossing machine operator at baseline 2.6-2.7 follow BMP renally dose meds (11) Atrial flutter: Plan: permanent, rate controlled continue metoprolol Continue Eliquis 5mg bid (12) Sacral decubitus ulcer: Plan: causing severe pain offload pressure, system dispatcher consulted pain control Plan DVT: apixaban disposition- was denied acute rehab by insurance, awaiting SNF placement -medically stable for discharge Admission and Anticipated Discharge Date Admission Date: April 08, 2023 Subjective Feeling better with less pain from sacral wound today Still feels swollen in her hands from fluid retention moving bowels ambulated today with PT Physical Exam Constitutional: WD/WN, vitals as above Respiratory: normal respiratory effort, lungs clear to auscultation Cardiovascular: Rate/Rhythm: regular rate and + irregularly irregular Heart Sounds: + murmur (2/6 holosystolic murmur) Extremities: + edema (trace edema ankles/feet,hands) Gastrointestinal (Abdomen): normal bowel sounds, soft, nontender, no hepatosp lenomegaly Skin: sacral wound with optifoam in place c/d/i Psychiatric: A+Ox3, euthymic affect Genitourinary: Oseguera in place with clear yellow urine Results & Data Results & Data Vital Signs (Past 12 Hours) Vital Signs Temp Pulse Resp BP Pulse Ox O2 Del Method 04/25/23 07:08 37.1 C 80 16 117/66 92 Room Air Laboratory Results CBC, BMP reviewed PG Care Time/CCT Total # of Minutes Spent Total Time Spent with Patient: Total time spent is greater than 50% in coordination of care (as documented) at patient's floor/unit and/or counseling patient: Coding Level of Care Code 08790 SUB INP/OBS CARE 2/35MIN Diagnoses Left displaced femoral neck fracture S72.002A Anemia D64.9 Constipation K59.00 Urinary retention R33.9 Type 2 diabetes mellitus with other specified complication, with long-term current 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 E11.69; Z79.4 Diabetes mellitus penitentiary insulin use: with penitentiary use Diabetes mellitus complication status: with other specified complication Diastolic CHF I50.30 Obsessive compulsive disorder F42.9 Status post gastric bypass for obesity Z98.84 Hypothyroidism E03.9 Chronic kidney disease, stage 4 (severe) N18.4 Atrial flutter I48.92 Sacral decubitus ulcer L89.159 (5) Type 2 diabetes mellitus Diabetes mellitus bed bug exterminator insulin use: with penitentiary use Diabetes mellitus complication status: with other specified complication Qualified Code(s): E11.69 - Type 2 diabetes mellitus with other specified complication; Z79.4 - bed bug exterminator (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
[2023-04-25] MEDS: traZODone HCL 50 MG TAB PO SCH ×2 (20:24→21:39)
[2023-04-25] MEDS: ATORVASTATIN 40 MG TAB PO SCH (20:25)
[2023-04-25] MEDS: PANTOprazole 40 MG TAB PO SCH (20:25)
[2023-04-25] MEDS: LANTUS PER UNIT CHARGE SC SCH (20:52)
[2023-04-26] MEDS: oxyCODONE HCL IR 5 MG TAB (IMMEDIATE RELEASE) PO PRN ×2 (02:59→23:36)
[2023-04-26] MEDS: ACETAMINOPHEN 325 MG TAB PO PRN ×3 (03:51→15:23)
[2023-04-26] MEDS: LEVOTHYROXINE SODIUM 50 MCG TABLET PO SCH (05:30)
[2023-04-26 07:58] LABS: Basophils # (auto) 0.04 K/uL (0.00-0.20); Basophils % (auto) 0.5 %; Eosinophils # (auto) 0.08 K/uL (0.00-0.50); Hematocrit (blood only) 25.6 % (37.0-47.0); Immature Granulocytes # (auto) 0.05 K/uL (0.01-0.20); Immature Granulocytes % (auto) 0.6 %; Lymphocytes # (auto) 0.85 K/uL (1.20-3.40); Lymphocytes % (auto) 10.6 %; Mean Corpuscular Hemoglobin 27.8 pg (25.0-34.0); Mean Corpuscular Hgb Conc 31.3 g/dL (32.0-36.0); Mean Corpuscular Volume 88.9 fL (80.0-100.0); Mean Platelet Volume 10.9 fL (9.4-12.4); Monocytes # (auto) 0.61 K/uL (0.11-0.59); Monocytes % (auto) 7.6 %; Neutrophils # (auto) 6.37 K/uL (1.40-6.50); Neutrophils % (auto) 79.7 %; Platelet Count 213 K/uL (130-400); RDW Coefficient of Variation 16.3 % (11.5-14.5); RDW Standard Deviation 52.2 fL (36.4-46.3); Red Blood Count 2.88 M/uL (4.20-5.40)
[2023-04-26] MEDS: SENNOSIDES 8.8 MG/5 ML UDC PO SCH ×2 (08:22→20:31)
[2023-04-26] MEDS: busPIRone 15 MG TAB PO SCH ×2 (08:23→20:29)
[2023-04-26] MEDS: DOCUSATE SODIUM 100 MG CAP PO SCH ×2 (08:23→20:28)
[2023-04-26] MEDS: METOPROLOL SUCC 25MG EXT REL TAB PO SCH (08:23)
[2023-04-26] MEDS: DICLOFENAC SOD 1% GEL 100 GM TUBE EXT SCH ×2 (08:23→20:30)
[2023-04-26] MEDS: fluvoxaMINE MALEATE 50 MG TAB PO SCH ×2 (08:24→20:28)
[2023-04-26] MEDS: POLYETHYLENE (MIRALAX) 17 GM PACK PO SCH ×3 (08:24→20:31)
[2023-04-26] MEDS: APIXABAN 5 MG TABLET PO SCH ×2 (08:24→20:26)
[2023-04-26] MEDS: BUMETANIDE 1 MG TAB PO SCH (08:25)
[2023-04-26] MEDS: PREGABALIN 50 MG CAP PO SCH ×2 (08:26→21:26)
[2023-04-26] MEDS: INSULIN ASPART PER UNIT CHARGE SC SCH ×4 (09:22→21:20)
[2023-04-26] MEDS: PATIROMER CALCIUM SORBITEX 8.4 GM PACK PO SCH (12:43)
[2023-04-26] MEDS ORDERED: ONDANSETRON INJ 2 MG/ML 2 ML VIAL IV PRN (13:15)
--- NOTE | 2023-04-26 13:43 | Hospitalist Progress Note ---
Date of Service April 26, 2023 Assessment & Plan (1) Left displaced femoral neck fracture: Plan: Mechanical fall resulting in left displaced femoral neck fracture S/P repair 04/09 with biploar hip replacement acute blood loss anemia, second unit of blood transfused on 04/11/2023 x ray of elbow for left elbow pain without acute fracture or dislocation . Had severe constipation-now resolved With sacral decubitus wound causing a lot of pain-now much better control Continue pain control as needed-Tylenol and tramadol, oxycodone, and continue IV morphine for severe pain only Stable from Ortho standpoint for discharge -had kari removed here 04/24 and needs f/u with Ortho in 1 month Eliquis and TEDs for DVT proph (2) Anemia: Plan: with acute blood loss anemia in setting of chronic anemia of CKD and also with h/o gastric bypass surgery B12, folate a few months ago normal, iron studies here consistent with chronic disease received PRBC transfusion, Epogen, hgb improved at 8.0 Follow CBC (3) Constipation: Plan: severe, fecal impaction with rectal spasms-no abd pain or N/V or evidence of obstruction on KUB Now resolved after multiple laxatives, enemas, manual disimpaction continue senna bid, docusate bid, Miralax tid (4) Urinary retention: Plan: Giraldo removed 04/22 and required multiple straight caths since then for large volumes constipation, immobility, and previous opioid use all contributing she is no longer taking the opioids for pain Encouraged ambulation Giraldo placed again 04/23-maintain until more mobile and sacral ulcer healing continue bowel regimen (5) Type 2 diabetes mellitus: Plan: Well controlled Consult glycemic control appreciated Continue short acting insulin ACHS and Insulin glargine (6) Diastolic CHF: Plan: developing ankle and leg edema restarted home Bumex 04/24 (7) Obsessive compulsive disorder: Plan: continue home fluvoxamine (8) Status post gastric bypass for obesity: Plan: noted (9) Hypothyroidism: Plan: continue home LT4 TSH normal 06/2022 (10) Chronic kidney disease, stage 4 (severe): Plan: Had PATY from [facility] superimposed on CKD stage 4, publication manager peaked at 4.5, Nephrology was following Then with mild hyperkalemia improved with resuming Bumex and low K+ diet, Patiromer daily x 3 doses continue low K+ diet and Bumex Can likely dc Patiromer if K+ remains normal publication manager at baseline 2.6-2.7 follow BMP renally dose meds (11) Atrial flutter: Plan: permanent, rate controlled continue metoprolol Continue Eliquis 5mg bid (12) Sacral decubitus ulcer: Plan: causing severe pain offload pressure, home health lpn consulted pain control Plan DVT: apixaban Disposition- was denied acute rehab by insurance, awaiting SNF placement - medically stable for discharge, she is working with for placement-also has the option to go to her sister's [facility] she owns with home health/wound care Admission and Anticipated Discharge Date Admission Date: April 08, 2023 Subjective Pt having some nausea after eating a hamburger with guido and salad for lunch. SHe said the pain is much better in her sacrum since she's been OOB and ambulating more and is OOB to chair. DId have to take oxycodone x 1 last night for the pain. Physical Exam Constitutional: WD/WN, vitals as above Respiratory: normal respiratory effort, lungs clear to auscultation Cardiovascular: Rate/Rhythm: regular rate and + irregularly irregular Heart Sounds: + murmur (2/6 holosystolic murmur) Extremities: + edema (trace edema ankles/feet,hands) Gastrointestinal (Abdomen): normal bowel sounds, soft, nontender, no hepatosplenomegaly Psychiatric: A+Ox3, euthymic affect Results & Data Results & Data Vital Signs (Past 12 Hours) Vital Signs Temp Pulse Resp BP Pulse Ox O2 Del Method 04/26/23 11:31 36.7 C 78 18 120/75 95 Room Air 04/26/23 08:25 36.7 C 78 16 128/74 96 Room Air Laboratory Results CBC reviewed, BMP pending PG Care Time/CCT Total # of Minutes Spent Total Time Spent with Patient: Total time spent is greater than 50% in coordination of care (as documented) at patient's floor/unit and/or counseling patient: Coding Level of Care Code 18853 SUB INP/OBS CARE 2/35MIN Diagnoses Left displaced femoral neck fracture S72.002A Anemia D64.9 Constipation K59.00 Urinary retention R33.9 Type 2 diabetes mellitus with other specified complication, with long-term current 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 E11.69; Z79.4 Diabetes mellitus complication status: with other specified complication Diabetes mellitus alf insulin use: with alf use Diastolic CHF I50.30 Obsessive compulsive disorder F42.9 Status post gastric bypass for obesity Z98.84 Hypothyroidism E03.9 Chronic kidney disease, stage 4 (severe) N18.4 Atrial flutter I48.92 Sacral decubitus ulcer L89.159 (5) Type 2 diabetes mellitus Diabetes mellitus complication status: with other specified complication Diabetes mellitus termite exterminator insulin use: with termite exterminator use Qualified Code(s): E11.69 - Type 2 diabetes mellitus with other specified complication; Z79.4 - intermediate manager (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
[2023-04-26 15:04] LABS: BUN Creatinine Ratio 23.1 (10-20); Calcium 8.3 mg/dl (8.6-10.3); Creatinine Clr Calc Pharmacy 27.1 ml/min; Est GFR (African American) 20.5 ml/min; Est GFR (Non-African American) 17.7 ml/min; Potassium 4.9 mmol/L (3.5-5.1)
[2023-04-26] MEDS: ATORVASTATIN 40 MG TAB PO SCH (20:26)
[2023-04-26] MEDS: PANTOprazole 40 MG TAB PO SCH (20:30)
[2023-04-26] MEDS: LANTUS PER UNIT CHARGE SC SCH (21:25)
[2023-04-26] MEDS: traZODone HCL 50 MG TAB PO SCH (21:26)
[2023-04-27] MEDS: LEVOTHYROXINE SODIUM 50 MCG TABLET PO SCH (06:22)
[2023-04-27 07:39] LABS: Basophils # (auto) 0.04 K/uL (0.00-0.20); Basophils % (auto) 0.5 %; Eosinophils # (auto) 0.11 K/uL (0.00-0.50); Eosinophils % (auto) 1.4 %; Hematocrit (blood only) 28.6 % (37.0-47.0); Hemoglobin 8.5 g/dl (12.0-16.0); Immature Granulocytes # (auto) 0.05 K/uL (0.01-0.20); Immature Granulocytes % (auto) 0.6 %; Lymphocytes # (auto) 0.93 K/uL (1.20-3.40); Lymphocytes % (auto) 12.1 %; Mean Corpuscular Hemoglobin 26.9 pg (25.0-34.0); Mean Corpuscular Hgb Conc 29.7 g/dL (32.0-36.0); Mean Corpuscular Volume 90.5 fL (80.0-100.0); Mean Platelet Volume 10.3 fL (9.4-12.4); Monocytes # (auto) 0.56 K/uL (0.11-0.59); Monocytes % (auto) 7.3 %; Neutrophils # (auto) 6.01 K/uL (1.40-6.50); Neutrophils % (auto) 78.1 %; Platelet Count 217 K/uL (130-400); RDW Coefficient of Variation 16.1 % (11.5-14.5); RDW Standard Deviation 52.8 fL (36.4-46.3); Red Blood Count 3.16 M/uL (4.20-5.40)
[2023-04-27 08:00] LABS: BUN Creatinine Ratio 23.9 (10-20); Calcium 7.9 mg/dl (8.6-10.3); Est GFR (African American) 21.3 ml/min; Est GFR (Non-African American) 18.4 ml/min; Potassium 4.5 mmol/L (3.5-5.1)
[2023-04-27] MEDS: MoRPHine SULFATE 2 MG/ML CARP IV PRN (09:09)
[2023-04-27] MEDS: BUMETANIDE 1 MG TAB PO SCH (09:11)
[2023-04-27] MEDS: fluvoxaMINE MALEATE 50 MG TAB PO SCH ×2 (09:12→22:00)
[2023-04-27] MEDS: busPIRone 15 MG TAB PO SCH ×2 (09:13→21:59)
[2023-04-27] MEDS: METOPROLOL SUCC 25MG EXT REL TAB PO SCH (09:13)
[2023-04-27] MEDS: DOCUSATE SODIUM 100 MG CAP PO SCH ×2 (09:14→22:00)
[2023-04-27] MEDS: PREGABALIN 50 MG CAP PO SCH ×2 (09:15→22:06)
[2023-04-27] MEDS: APIXABAN 5 MG TABLET PO SCH ×2 (09:15→21:59)
[2023-04-27] MEDS: INSULIN ASPART PER UNIT CHARGE SC SCH ×4 (09:15→21:58)
[2023-04-27] MEDS: SENNOSIDES 8.8 MG/5 ML UDC PO SCH ×2 (09:17→22:02)
[2023-04-27] MEDS: POLYETHYLENE (MIRALAX) 17 GM PACK PO SCH ×3 (09:21→22:01)
[2023-04-27] MEDS: DICLOFENAC SOD 1% GEL 100 GM TUBE EXT SCH ×2 (09:29→22:02)
[2023-04-27] MEDS: LORazepam 1 MG TAB PO PRN (12:50)
[2023-04-27] MEDS: PATIROMER CALCIUM SORBITEX 8.4 GM PACK PO SCH (13:05)
--- NOTE | 2023-04-27 17:54 | Hospitalist Progress Note ---
Date of Service April 27, 2023 Assessment & Plan (1) Left displaced femoral neck fracture: Plan: Mechanical fall resulting in left displaced femoral neck fracture S/P repair 04/09 with biploar hip replacement acute blood loss anemia, second unit of blood transfused on 04/11/2023 x ray of elbow for left elbow pain without acute fracture or dislocation . Had severe constipation-now resolved With sacral decubitus wound causing a lot of pain-now much better control Continue pain control as needed-Tylenol and tramadol, oxycodone, and continue IV morphine for severe pain only Stable from Ortho standpoint for discharge -had kari removed here 04/24 and needs f/u with Ortho in 1 month Eliquis and TEDs for DVT proph (2) Anemia: Plan: with acute blood loss anemia in setting of chronic anemia of CKD and also with h/o gastric bypass surgery B12, folate a few months ago normal, iron studies here consistent with chronic disease received PRBC transfusion, Epogen, hgb improved Follow CBC (3) Constipation: Plan: severe, fecal impaction with rectal spasms-no abd pain or N/V or evidence of obstruction on KUB Now resolved after multiple laxatives, enemas, manual disimpaction continue senna bid, docusate bid, Miralax tid (4) Urinary retention: Plan: Giraldo removed 04/22 and required multiple straight caths since then for large volumes constipation, immobility, and previous opioid use all contributing she is no longer taking the opioids for pain Encouraged ambulation Giraldo placed again 04/23-maintain until more mobile and sacral ulcer healing continue bowel regimen (5) Type 2 diabetes mellitus: Plan: Well controlled Consult glycemic control appreciated Continue short acting insulin ACHS and Insulin glargine (6) Diastolic CHF: Plan: developing ankle and leg edema restarted home Bumex 04/24 (7) Obsessive compulsive disorder: Plan: continue home fluvoxamine (8) Status post gastric bypass for obesity: Plan: noted (9) Hypothyroidism: Plan: continue home LT4 TSH normal 06/2022 (10) Chronic kidney disease, stage 4 (severe): Plan: Had PATY from [facility] superimposed on CKD stage 4, optometry teacher peaked at 4.5, Nephrology was following Then with mild hyperkalemia improved with resuming Bumex and low K+ diet, Patiromer daily x 3 doses continue low K+ diet and Bumex Can likely dc Patiromer if K+ remains normal optometry teacher at baseline 2.6-2.7 follow BMP renally dose meds (11) Atrial flutter: Plan: permanent, rate controlled continue metoprolol Continue Eliquis 5mg bid (12) Sacral decubitus ulcer: Plan: causing severe pain offload pressure, director of donor relations consulted pain control Plan DVT: apixaban Disposition- was denied acute rehab by insurance, awaiting SNF placement - medically stable for discharge, she is working with for placement-also has the option to go to her sister's [facility] she owns with home health/wound care Admission and Anticipated Discharge Date Admission Date: April 08, 2023 Subjective Reports sacral decubitus ulcer continues to cause discomfort especially with transfers. Reports her left hip following her September recent surgery has been doing quite well without any significant pain. She states she did have some shortness of breath and palpitations this morning when her heart was going fast. Her heart rate has improved and she denies any ongoing palpitations or shortness of breath. Denies any chest pain or lightheadedness. She had a successful bowel movement this morning. Continues to have good urine output through her Giraldo. Review of Systems 2 Review of Systems: Per per subjective Physical Exam Physical Exam: General: Well-appearing, NAD HEENT: Normal conjunctivae, non-erythematous oropharynx Neck: Supple, no cervical LAD Cardiovascular: RRR, +systolic murmur Pulmonary: CTAB, no W/R/R Extremities: Moving all extremities : Giraldo in place draining clear yellow urine Integumentary: Sacral decubitus ulcer dressings C/D/I, dressing overlying L lateral hip appears to have had some drainage onto the pillow she was leaning against but currently no active drainage and remains intact Neurologic: AAOx3, no focal deficits Psychiatric: Appropriate mood/affect Results & Data Results & Data Vital Signs (Past 12 Hours) Vital Signs Temp Pulse Resp BP Pulse Ox O2 Del Method 04/27/23 15:14 36.8 C 88 18 106/67 94 Room Air 04/27/23 12:51 36.4 C L 94 H 18 125/75 96 Room Air 04/27/23 08:00 36.8 C 126 H 16 121/76 96 Room Air PG Care Time/CCT Total # of Minutes Spent Total Time Spent with Patient: Total time spent is greater than 50% in coordination of care (as documented) at patient's floor/unit and/or counseling patient: Coding Level of Care Code 19661 SUB INP/OBS CARE 2MIN Diagnoses Left displaced femoral neck fracture S72.002A Anemia D64.9 Constipation K59.00 Urinary retention R33.9 Type 2 diabetes mellitus with other specified complication, with long-term current 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 E11.69; Z79.4 Diabetes mellitus nursing home insulin use: with buttermaker use Diabetes mellitus complication status: with other specified complication Diastolic CHF I50.30 Obsessive compulsive disorder F42.9 Status post gastric bypass for obesity Z98.84 Hypothyroidism E03.9 Chronic kidney disease, stage 4 (severe) N18.4 Atrial flutter I48.92 Sacral decubitus ulcer L89.159 (5) Type 2 diabetes mellitus Diabetes mellitus buttermaker insulin use: with buttermaker use Diabetes mellitus complication status: with other specified complication Qualified Code(s): E11.69 - Type 2 diabetes mellitus with other specified complication; Z79.4 - assisted (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
[2023-04-27] MEDS: CARBOHYDRATES FOR HYPOGLYCEMIA PO PRN (21:55)
[2023-04-27] MEDS: ATORVASTATIN 40 MG TAB PO SCH (21:59)
[2023-04-27] MEDS: PANTOprazole 40 MG TAB PO SCH (22:00)
[2023-04-27] MEDS: traZODone HCL 50 MG TAB PO SCH (22:06)
[2023-04-27] MEDS: LANTUS PER UNIT CHARGE SC SCH (22:35)
[2023-04-28] MEDS: oxyCODONE HCL IR 5 MG TAB (IMMEDIATE RELEASE) PO PRN (02:47)
[2023-04-28] MEDS: LEVOTHYROXINE SODIUM 50 MCG TABLET PO SCH (05:51)
[2023-04-28] MEDS: fluvoxaMINE MALEATE 50 MG TAB PO SCH ×2 (08:28→20:52)
[2023-04-28] MEDS: busPIRone 15 MG TAB PO SCH ×2 (08:30→20:52)
[2023-04-28] MEDS: BUMETANIDE 1 MG TAB PO SCH (08:32)
[2023-04-28] MEDS: DOCUSATE SODIUM 100 MG CAP PO SCH ×2 (08:34→20:52)
[2023-04-28] MEDS: METOPROLOL SUCC 25MG EXT REL TAB PO SCH (08:36)
[2023-04-28] MEDS: ERGOCALCIFEROL 50,000 UNITS 1250 MCG CAP PO SCH (08:37)
[2023-04-28] MEDS: POLYETHYLENE (MIRALAX) 17 GM PACK PO SCH ×3 (08:39→20:49)
[2023-04-28] MEDS: SENNOSIDES 8.8 MG/5 ML UDC PO SCH ×2 (08:39→20:50)
[2023-04-28] MEDS: APIXABAN 5 MG TABLET PO SCH ×2 (08:42→20:53)
[2023-04-28 08:43] LABS: Hemoglobin 8.8 g/dl (12.0-16.0); Mean Corpuscular Hemoglobin 26.9 pg (25.0-34.0); Mean Corpuscular Hgb Conc 30.3 g/dL (32.0-36.0); Mean Corpuscular Volume 88.7 fL (80.0-100.0); Mean Platelet Volume 10.4 fL (9.4-12.4); Platelet Count 246 K/uL (130-400); RDW Coefficient of Variation 15.9 % (11.5-14.5); RDW Standard Deviation 50.9 fL (36.4-46.3); Red Blood Count 3.27 M/uL (4.20-5.40); White Blood Count 8.41 K/ul (4.8-10.8)
[2023-04-28] MEDS: DICLOFENAC SOD 1% GEL 100 GM TUBE EXT SCH ×2 (08:44→20:46)
[2023-04-28] MEDS: PREGABALIN 50 MG CAP PO SCH ×2 (08:55→20:51)
[2023-04-28] MEDS: INSULIN ASPART PER UNIT CHARGE SC SCH ×4 (08:56→20:47)
[2023-04-28 09:01] LABS: Calcium 8.3 mg/dl (8.6-10.3); Creatinine Clr Calc Pharmacy 27.4 ml/min; Est GFR (African American) 20.7 ml/min; Est GFR (Non-African American) 17.9 ml/min
[2023-04-28] MEDS: PATIROMER CALCIUM SORBITEX 8.4 GM PACK PO SCH (11:57)
[2023-04-28] MEDS: MoRPHine SULFATE 2 MG/ML CARP IV PRN (13:05)
--- NOTE | 2023-04-28 17:16 | Hospitalist Progress Note ---
Date of Service April 28, 2023 Assessment & Plan (1) Left displaced femoral neck fracture: Plan: Mechanical fall resulting in left displaced femoral neck fracture S/P repair 04/09 with biploar hip replacement acute blood loss anemia, second unit of blood transfused on 04/11/2023 x ray of elbow for left elbow pain without acute fracture or dislocation . Had severe constipation-now resolved though no BM yet as of 04/28 With sacral decubitus wound causing a lot of pain-now much better control Continue pain control as needed-Tylenol and tramadol, oxycodone, and continue IV morphine for severe pain only Stable from Ortho standpoint for discharge -had kari removed here 04/24 and needs f/u with Ortho in 1 month Eliquis and TEDs for DVT proph (2) Anemia: Plan: with acute blood loss anemia in setting of chronic anemia of CKD and also with h/o gastric bypass surgery B12, folate a few months ago normal, iron studies here consistent with chronic disease received PRBC transfusion, Epogen, hgb improved Follow CBC (3) Constipation: Plan: severe, fecal impaction with rectal spasms-no abd pain or N/V or evidence of obstruction on KUB Now resolved after multiple laxatives, enemas, manual disimpaction continue senna bid, docusate bid, Miralax tid No BM 04/28 yet - will need close monitoring and aggressive additional early intervention (4) Urinary retention: Plan: Giraldo removed 04/22 and required multiple straight caths since then for large volumes constipation, immobility, and previous opioid use all contributing she is no longer taking the opioids for pain Encouraged ambulation Giraldo placed again 04/23-maintain until more mobile and sacral ulcer healing continue bowel regimen (5) Type 2 diabetes mellitus: Plan: Well controlled Consult glycemic control appreciated Continue short acting insulin ACHS and Insulin glargine (6) Diastolic CHF: Plan: developing ankle and leg edema restarted home Bumex 04/24 (7) Obsessive compulsive disorder: Plan: continue home fluvoxamine (8) Status post gastric bypass for obesity: Plan: noted (9) Hypothyroidism: Plan: continue home LT4 TSH normal 06/2022 (10) Chronic kidney disease, stage 4 (severe): Plan: Had PATY from [facility] superimposed on CKD stage 4, tub tender peaked at 4.5, Nephrology was following Then with mild hyperkalemia improved with resuming Bumex and low K+ diet, Patiromer daily x 3 doses continue low K+ diet and Bumex Can likely dc Patiromer if K+ remains normal tub tender at baseline 2.6-2.7 follow BMP renally dose meds (11) Atrial flutter: Plan: permanent, rate controlled continue metoprolol Continue Eliquis 5mg bid (12) Sacral decubitus ulcer: Plan: causing severe pain offload pressure, manager emergency department consulted pain control Plan DVT: apixaban Disposition- was denied acute rehab by insurance, awaiting SNF placement - medically stable for discharge, she is working with CM for placement-also has the option to go to her sister[facility] she owns with home health/wound care Admission and Anticipated Discharge Date Admission Date: April 08, 2023 Subjective Has not yet had a bowel movement this morning and expresses concern of her returning to the former state of constipation she had previously. Had her sacral wound dressing changed -expresses frustration over this situation and the delay in dressing change. Reports left hip continues to feel good. Otherwise no significant concerns today. Review of Systems Review of Systems: Per per subjective Physical Exam Physical Exam: General: Well-appearing, NAD HEENT: Normal conjunctivae Cardiovascular: RRR, +systolic murmur Pulmonary: CTAB, no W/R/R Extremities: Moving all extremities, difficulty with standing for examination of sacral wound - required my assistance : Giraldo in place draining clear yellow urine Integumentary: Sacral decubitus ulcer dressings C/D/I, dressing overlying L lateral hip with reinforced dressing Neurologic: AAOx3, no focal deficits Psychiatric: Appropriate mood/affect Results & Data Results & Data Vital Signs (Past 12 Hours) Vital Signs Temp Pulse Resp BP Pulse Ox O2 Del Method 04/28/23 14:35 36.7 C 80 16 124/70 94 Room Air 04/28/23 07:28 36.7 C 85 16 126/68 94 Room Air Laboratory Results Reviewed CBChemoglobin improved to 8.8, reviewed BMP with creatinine 2.7, potassium 4.0, Calcium 8.3. Magnesium two-point PG Care Time/CCT Total # of Minutes Spent Total Time Spent with Patient: Total time spent is greater than 50% in coordination of care (as documented) at patient's floor/unit and/or counseling patient: Coding Level of Care Code 62004 SUB INP/OBS CARE Diagnoses Left displaced femoral neck fracture S72.002A Anemia D64.9 Constipation K59.00 Urinary retention R33.9 Type 2 diabetes mellitus with other specified complication, with long-term current 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 E11.69; Z79.4 Diabetes mellitus rodent exterminator insulin use: with chcf use Diabetes mellitus complication status: with other specified complication Diastolic CHF I50.30 Obsessive compulsive disorder F42.9 Status post gastric bypass for obesity Z98.84 Hypothyroidism E03.9 Chronic kidney disease, stage 4 (severe) N18.4 Atrial flutter I48.92 Sacral decubitus ulcer L89.159 (5) Type 2 diabetes mellitus Diabetes mellitus chcf insulin use: with chcf use Diabetes mellitus complication status: with other specified complication Qualified Code(s): E11.69 - Type 2 diabetes mellitus with other specified complication; Z79.4 - parts counterman (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
[2023-04-28] MEDS: LANTUS PER UNIT CHARGE SC SCH (20:49)
[2023-04-28] MEDS: traZODone HCL 50 MG TAB PO SCH (20:50)
[2023-04-28] MEDS: PANTOprazole 40 MG TAB PO SCH (20:51)
[2023-04-28] MEDS: ATORVASTATIN 40 MG TAB PO SCH (20:52)
[2023-04-29] MEDS: oxyCODONE HCL IR 5 MG TAB (IMMEDIATE RELEASE) PO PRN ×2 (03:34→21:19)
[2023-04-29] MEDS: LEVOTHYROXINE SODIUM 50 MCG TABLET PO SCH (05:39)
[2023-04-29 07:29] LABS: Hematocrit (blood only) 28.6 % (37.0-47.0); Hemoglobin 8.7 g/dl (12.0-16.0); Mean Corpuscular Hemoglobin 26.8 pg (25.0-34.0); Mean Corpuscular Hgb Conc 30.4 g/dL (32.0-36.0); Mean Platelet Volume 10.2 fL (9.4-12.4); Platelet Count 236 K/uL (130-400); RDW Coefficient of Variation 15.8 % (11.5-14.5); RDW Standard Deviation 49.5 fL (36.4-46.3); Red Blood Count 3.25 M/uL (4.20-5.40); White Blood Count 8.26 K/ul (4.8-10.8)
[2023-04-29] MEDS: INSULIN ASPART PER UNIT CHARGE SC SCH ×4 (08:17→22:01)
[2023-04-29 08:35] LABS: BUN Creatinine Ratio 21.6 (10-20); Calcium 8.1 mg/dl (8.6-10.3); Creatinine Clr Calc Pharmacy 25.3 ml/min; Est GFR (African American) 18.9 ml/min; Est GFR (Non-African American) 16.3 ml/min; Potassium 4.5 mmol/L (3.5-5.1)
[2023-04-29] MEDS: METOPROLOL SUCC 25MG EXT REL TAB PO SCH (09:13)
[2023-04-29] MEDS: fluvoxaMINE MALEATE 50 MG TAB PO SCH ×2 (09:14→21:19)
[2023-04-29] MEDS: busPIRone 15 MG TAB PO SCH ×2 (09:14→21:20)
[2023-04-29] MEDS: SENNOSIDES 8.8 MG/5 ML UDC PO SCH ×2 (09:14→21:21)
[2023-04-29] MEDS: DOCUSATE SODIUM 100 MG CAP PO SCH ×2 (09:14→21:20)
[2023-04-29] MEDS: BUMETANIDE 1 MG TAB PO SCH (09:14)
[2023-04-29] MEDS: POLYETHYLENE (MIRALAX) 17 GM PACK PO SCH ×3 (09:15→21:21)
[2023-04-29] MEDS: DICLOFENAC SOD 1% GEL 100 GM TUBE EXT SCH ×2 (09:15→21:20)
[2023-04-29] MEDS: APIXABAN 5 MG TABLET PO SCH ×2 (09:15→21:26)
[2023-04-29] MEDS: PREGABALIN 50 MG CAP PO SCH ×2 (09:19→21:19)
[2023-04-29] MEDS: LORazepam 1 MG TAB PO PRN ×2 (10:32→18:20)
[2023-04-29] MEDS: PATIROMER CALCIUM SORBITEX 8.4 GM PACK PO SCH (10:33)
--- NOTE | 2023-04-29 17:12 | Hospitalist Progress Note ---
Date of Service April 29, 2023 Assessment & Plan (1) Left displaced femoral neck fracture: Plan: Mechanical fall resulting in left displaced femoral neck fracture. S/P repair 04/09 with biploar hip replacement . Continue physical therapy while hospitalized. SNF placement pending. (2) Anemia: Plan: with acute blood loss anemia in setting of chronic anemia. Serial labs. Received PRBC transfusion and Epogen this admission. Serial labs (3) Constipation: Plan: No evidence of obstruction on KUB. Now resolved after multiple laxatives, enemas, manual disimpaction. Continue senna bid, docusate bid, Miralax t (4) Urinary retention: Plan: Giraldo removed 04/22 but subsequently required multiple straight caths afterwards. Giraldo placed again 04/23-maintain until more mobile. (5) Type 2 diabetes mellitus: Plan: ADA diet. Sliding scale coverage as needed. Continue current medical management (6) Diastolic CHF: Plan: Chronic. Monitor intake and output. Bumex has been restarted. (7) Obsessive compulsive disorder: Plan: Stable. Continue fluvoxamine (8) Hypothyroidism: Plan: Stable. Continue thyroid replacement therapy (9) Chronic kidney disease, stage 4 (severe): Plan: Had PATY superimposed on CKD stage 4. Appreciate nephrology consultation and recommendations. Transient hyperkalemia was treated with patiromer.serial labs. Monitor intake and output. (10) Atrial flutter: Plan: Chronic. Rate controlled. Continue metoprolol and Eliquis (11) Sacral decubitus ulcer: Plan: Pain control measures. Wound care consult appreciated. Plan Eventual discharge to SNF. Admission and Anticipated Discharge Date Admission Date: April 08, 2023 Subjective Alert and oriented. Main complaint is insomnia despite trazodone at bedtime. We will also administer melatonin. SNF placement pending. [facility] [place] is no longer an option. Creatinine elevated and rising. We will follow. Review of Systems 2 Review of Systems: Constitutional-no fever or chills ENT-no blurred vision, no double vision, no epistaxis, no sore throat Respiratory-no cough, no wheezing, no shortness of breath Cardiac-no palpitations, no chest pain, no syncope GI-no nausea, vomiting, diarrhea, melena, hematochezia -no urinary retention, no urinary incontinence, no dysuria, no hematuria Musculoskeletal-no joint pain, no muscle tenderness Skin-no bruising, no rashes, no pruritus Neuro-no isolated weakness, no paresthesia, no weakness Psych-no depression, no anxiety Physical Exam 2 Physical Exam: General-alert and oriented x3, no fevers, no chills HEENT-head atraumatic and normocephalic, pupils equal and reactive to light, extraocular muscles intact Neck-no lymphadenopathy or thyromegaly, trachea midline Chest-clear to auscultation percussion. No rales wheezing or rhonchi Cardiac-regular rate and rhythm, normal S1 and S2 Abdomen-normal bowel sounds, nontender, no hepatosplenomegaly Extremities-no cyanosis, clubbing, or edema. Left hip surgical site unremarkable Neuro-cranial nerves II through XII intact, motor and sensory function within normal limits, strength symmetrical , no focal deficits Psych-normal affect, normal mood Results & Data Results & Data Vital Signs (Past 12 Hours) Vital Signs Temp Pulse Pulse Resp BP Pulse Ox O2 Del Method 04/29/23 14:27 36.5 C 95 H 16 127/82 95 Room Air 04/29/23 11:27 36.5 C 86 17 127/82 96 Room Air 04/29/23 07:34 36.4 C L 85 17 130/84 94 Room Air Laboratory Results 04/29/23 07:06 04/29/23 07:06 PG Care Time/CCT Total # of Minutes Spent Total Time Spent with Patient: Total time spent is greater than 50% in coordination of care (as documented) at patient's floor/unit and/or counseling patient: Coding Level of Care Code 70461 SUB INP/OBS CARE 3/50MIN Diagnoses Left displaced femoral neck fracture S72.002A Anemia D64.9 Constipation K59.00 Urinary retention R33.9 Type 2 diabetes mellitus with other specified complication, with long-term current 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 E11.69; Z79.4 Diabetes mellitus parts counterman insulin use: with shelter use Diabetes mellitus complication status: with other specified complication Diastolic CHF I50.30 Obsessive compulsive disorder F42.9 Hypothyroidism E03.9 Chronic kidney disease, stage 4 (severe) N18.4 Atrial flutter I48.92 Sacral decubitus ulcer L89.159 (5) Type 2 diabetes mellitus Diabetes mellitus shelter insulin use: with shelter use Diabetes mellitus complication status: with other specified complication Qualified Code(s): E 11.69 - Type 2 diabetes mellitus with other specified complication; Z79.4 - extermination supervisor (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
[2023-04-29] MEDS: traZODone HCL 50 MG TAB PO SCH (21:19)
[2023-04-29] MEDS: ATORVASTATIN 40 MG TAB PO SCH (21:20)
[2023-04-29] MEDS: PANTOprazole 40 MG TAB PO SCH (21:20)
[2023-04-29] MEDS: MELATONIN 3 MG TAB PO SCH (21:21)
[2023-04-29] MEDS: LANTUS PER UNIT CHARGE SC SCH (21:22)
[2023-04-30] MEDS: LEVOTHYROXINE SODIUM 50 MCG TABLET PO SCH (05:46)
[2023-04-30 07:23] LABS: Hematocrit (blood only) 25.9 % (37.0-47.0); Hemoglobin 7.9 g/dl (12.0-16.0); Mean Corpuscular Hgb Conc 30.5 g/dL (32.0-36.0); Mean Corpuscular Volume 88.4 fL (80.0-100.0); Mean Platelet Volume 10.7 fL (9.4-12.4); Platelet Count 231 K/uL (130-400); RDW Coefficient of Variation 15.5 % (11.5-14.5); RDW Standard Deviation 49.4 fL (36.4-46.3); Red Blood Count 2.93 M/uL (4.20-5.40); White Blood Count 7.88 K/ul (4.8-10.8)
[2023-04-30 07:50] LABS: BUN Creatinine Ratio 22.1 (10-20); Calcium 8.1 mg/dl (8.6-10.3); Creatinine Clr Calc Pharmacy 25.6 ml/min; Est GFR (African American) 19.1 ml/min; Est GFR (Non-African American) 16.5 ml/min; Magnesium 1.8 mg/dl (1.7-2.4); Potassium 4.3 mmol/L (3.5-5.1)
[2023-04-30] MEDS: APIXABAN 5 MG TABLET PO SCH ×2 (08:00→20:54)
[2023-04-30] MEDS: fluvoxaMINE MALEATE 50 MG TAB PO SCH ×2 (08:00→20:55)
[2023-04-30] MEDS: BUMETANIDE 1 MG TAB PO SCH (08:00)
[2023-04-30] MEDS: DOCUSATE SODIUM 100 MG CAP PO SCH ×2 (08:00→20:55)
[2023-04-30] MEDS: POLYETHYLENE (MIRALAX) 17 GM PACK PO SCH ×3 (08:01→20:44)
[2023-04-30] MEDS: METOPROLOL SUCC 25MG EXT REL TAB PO SCH (08:01)
[2023-04-30] MEDS: DICLOFENAC SOD 1% GEL 100 GM TUBE EXT SCH ×2 (08:01→20:55)
[2023-04-30] MEDS: busPIRone 15 MG TAB PO SCH ×2 (08:01→20:54)
[2023-04-30] MEDS: SENNOSIDES 8.8 MG/5 ML UDC PO SCH ×2 (08:02→20:54)
[2023-04-30] MEDS: PREGABALIN 50 MG CAP PO SCH ×2 (08:03→20:53)
[2023-04-30] MEDS: INSULIN ASPART PER UNIT CHARGE SC SCH ×4 (08:43→21:24)
[2023-04-30] MEDS: LORazepam 1 MG TAB PO PRN (08:43)
[2023-04-30] MEDS: oxyCODONE HCL IR 5 MG TAB (IMMEDIATE RELEASE) PO PRN ×2 (09:04→20:53)
[2023-04-30] MEDS: PATIROMER CALCIUM SORBITEX 8.4 GM PACK PO SCH (10:47)
--- NOTE | 2023-04-30 15:15 | Hospitalist Progress Note ---
Date of Service April 30, 2023 Assessment & Plan (1) Left displaced femoral neck fracture: Plan: Mechanical fall resulting in left displaced femoral neck fracture. S/P repair 04/09 with biploar hip replacement . Continue physical therapy while hospitalized. SNF placement pending. (2) Anemia: Plan: with acute blood loss anemia in setting of chronic anemia. Serial labs. Received PRBC transfusion and Epogen this admission. Serial labs. Check fecal occult blood. If positive, will need to discontinue Eliquis (3) Constipation: Plan: No evidence of obstruction on KUB. Now resolved after multiple laxatives, enemas, manual disimpaction. Continue senna, docusate, Miralax (4) Urinary retention: Plan: Giraldo removed 04/22 but subsequently required multiple straight caths afterwards. Giraldo placed again 04/23- maintain until more mobile. (5) Type 2 diabetes mellitus: Plan: ADA diet. Sliding scale coverage as needed. Continue current medical management (6) Diastolic CHF: Plan: Chronic. Monitor intake and output. Bumex has been restarted. (7) Obsessive compulsive disorder: Plan: Stable. Continue fluvoxamine (8) Hypothyroidism: Plan: Stable. Continue thyroid replacement therapy (9) Chronic kidney disease, stage 4 (severe): Plan: Had PATY superimposed on CKD stage 4. Appreciate nephrology consultation and recommendations. Transient hyperkalemia was treated with patiromer. Serial labs. Monitor intake and output. (10) Atrial flutter: Plan: Chronic. Rate controlled. Continue metoprolol and Eliquis . If fecal occult blood is positive will need to discontinue Eliquis (11) Sacral decubitus ulcer: Plan: Pain control measures. Wound care consult appreciated. Plan Eventual discharge to SNF when arrangements are finalized Admission and Anticipated Discharge Date Admission Date: April 08, 2023 Subjective Somnolent but awakens easily. She states the melatonin helped a little bit. Hemoglobin has drifted down to 7.9. No overt GI bleeding but stool Hemoccult has been ordered. If positive, will need to discontinue Eliquis which she takes for her atrial flutter. Creatinine has stabilized at 2.9. SNF placement remains pending. Review of Systems 2 Review of Systems: Constitutional-no fever or chills ENT-no blurred vision, no double vision, no epistaxis, no sore throat Respiratory-no cough, no wheezing, no shortness of breath Cardiac-no palpitations, no chest pain, no syncope GI-no nausea, vomiting, diarrhea, melena, hematochezia -no urinary retention, no urinary incontinence, no dysuria, no hematuria Musculoskeletal-no joint pain, no muscle tenderness Skin-no bruising, no rashes, no pruritus Neuro-no isolated weakness, no paresthesia, no weakness Psych-no depression, no anxiety Physical Exam 2 Physical Exam: General-alert and oriented x3, no fevers, no chills HEENT-head atraumatic and normocephalic, pupils equal and reactive to light, extraocular muscles intact Neck-no lymphadenopathy or thyromegaly, trachea midline Chest-clear to auscultation percussion. No rales wheezing or rhonchi Cardiac-regular rate and rhythm, normal S1 and S2 Abdomen-normal bowel sounds, nontender, no hepatosplenomegaly Extremities-no cyanosis, clubbing, or edema. Left hip surgical site unremarkable Neuro-cranial nerves II through XII intact, motor and sensory function within normal limits, strength symmetrical , no focal deficits Psych-normal affect, normal mood Results & Data Results & Data Vital Signs (Past 12 Hours) Vital Signs Temp Pulse Resp BP Pulse Ox O2 Del Method 04/30/23 07:37 36.8 C 104 H 16 88/54 L 94 Room Air Laboratory Results 04/30/23 06:49 04/30/23 06:49 PG Care Time/CCT Total # of Minutes Spent Total Time Spent with Patient: Total time spent is greater than 50% in coordination of care (as documented) at patient's floor/unit and/or counseling patient: Coding Level of Care Code 47862 SUB INP/OBS CARE 3/50MIN Diagnoses Left displaced femoral neck fracture S72.002A Anemia D64.9 Constipation K59.00 Urinary retention R33.9 Type 2 diabetes mellitus with other specified complication, with long-term current 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 E11.69; Z79.4 Diabetes mellitus assisted insulin use: with assisted use Diabetes mellitus complication status: with other specified complication Diastolic CHF I50.30 Obsessive compulsive disorder F42.9 Hypothyroidism E03.9 Chronic kidney disease, stage 4 (severe) N18.4 Atrial flutter I48.92 Sacral decubitus ulcer L89.159 (5) Type 2 diabetes mellitus Diabetes mellitus assisted insulin use: with terminal worker use Diabetes mellitus complication status: with other specified complication Qualified Code(s): E 11.69 - Type 2 diabetes mellitus with other specified complication; Z79.4 - parts counterman (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
[2023-04-30] MEDS: traZODone HCL 50 MG TAB PO SCH (20:53)
[2023-04-30] MEDS: ATORVASTATIN 40 MG TAB PO SCH (20:54)
[2023-04-30] MEDS: PANTOprazole 40 MG TAB PO SCH (20:54)
[2023-04-30] MEDS: MELATONIN 3 MG TAB PO SCH (20:55)
[2023-04-30] MEDS: LANTUS PER UNIT CHARGE SC SCH (21:24)
[2023-05-01] MEDS: oxyCODONE HCL IR 5 MG TAB (IMMEDIATE RELEASE) PO PRN ×2 (02:23→09:59)
[2023-05-01] MEDS: LEVOTHYROXINE SODIUM 50 MCG TABLET PO SCH (05:04)
[2023-05-01] MEDS: traMADol HCL 50 MG TABLET PO PRN ×2 (05:06→21:36)
[2023-05-01 06:01] LABS: Hematocrit (blood only) 25.6 % (37.0-47.0); Mean Corpuscular Hemoglobin 27.3 pg (25.0-34.0); Mean Corpuscular Hgb Conc 31.3 g/dL (32.0-36.0); Mean Corpuscular Volume 87.4 fL (80.0-100.0); Mean Platelet Volume 10.2 fL (9.4-12.4); Platelet Count 198 K/uL (130-400); RDW Coefficient of Variation 15.6 % (11.5-14.5); RDW Standard Deviation 49.1 fL (36.4-46.3); Red Blood Count 2.93 M/uL (4.20-5.40); White Blood Count 10.73 K/ul (4.8-10.8)
[2023-05-01 06:19] LABS: BUN Creatinine Ratio 20.5 (10-20); Calcium 7.9 mg/dl (8.6-10.3); Creatinine Clr Calc Pharmacy 24.5 ml/min; Est GFR (African American) 18.1 ml/min; Est GFR (Non-African American) 15.6 ml/min; Potassium 4.1 mmol/L (3.5-5.1)
[2023-05-01] MEDS: busPIRone 15 MG TAB PO SCH ×2 (08:42→20:56)
[2023-05-01] MEDS: METOPROLOL SUCC 25MG EXT REL TAB PO SCH (08:42)
[2023-05-01] MEDS: APIXABAN 5 MG TABLET PO SCH ×2 (08:42→20:55)
[2023-05-01] MEDS: BUMETANIDE 1 MG TAB PO SCH (08:42)
[2023-05-01] MEDS: fluvoxaMINE MALEATE 50 MG TAB PO SCH ×2 (08:43→20:56)
[2023-05-01] MEDS: DOCUSATE SODIUM 100 MG CAP PO SCH ×2 (08:43→20:57)
[2023-05-01] MEDS: SENNOSIDES 8.8 MG/5 ML UDC PO SCH ×2 (08:44→20:57)
[2023-05-01] MEDS: DICLOFENAC SOD 1% GEL 100 GM TUBE EXT SCH ×2 (08:44→20:56)
[2023-05-01] MEDS: POLYETHYLENE (MIRALAX) 17 GM PACK PO SCH ×3 (08:44→20:55)
[2023-05-01] MEDS: INSULIN ASPART PER UNIT CHARGE SC SCH ×4 (08:48→20:58)
[2023-05-01] MEDS: PREGABALIN 50 MG CAP PO SCH ×2 (08:48→20:57)
[2023-05-01] MEDS: PATIROMER CALCIUM SORBITEX 8.4 GM PACK PO SCH (11:10)
--- NOTE | 2023-05-01 14:08 | Hospitalist Progress Note ---
Date of Service May 01, 2023 Assessment & Plan (1) Left displaced femoral neck fracture: Plan: Mechanical fall resulting in left displaced femoral neck fracture. S/P repair 04/09 with biploar hip replacement . Continue physical therapy while hospitalized. SNF placement pending. (2) Anemia: Plan: with acute blood loss anemia in setting of chronic anemia. Serial labs. Received PRBC transfusion and Epogen this admission. Serial labs. Check fecal occult blood. If positive, will need to discontinue Eliquis (3) Constipation: Plan: No evidence of obstruction on KUB. Now resolved after multiple laxatives, enemas, manual disimpaction. Continue senna, docusate, Miralax (4) Urinary retention: Plan: Giraldo removed 04/22 but subsequently required multiple straight caths afterwards. Giraldo placed again 04/23- maintain until more mobile. (5) Type 2 diabetes mellitus: Plan: ADA diet. Sliding scale coverage as needed. Continue current medical management (6) Diastolic CHF: Plan: Chronic. Monitor intake and output. Bumex has been restarted. (7) Obsessive compulsive disorder: Plan: Stable. Continue fluvoxamine (8) Hypothyroidism: Plan: Stable. Continue thyroid replacement therapy (9) Chronic kidney disease, stage 4 (severe): Plan: Had PATY superimposed on CKD stage 4. Appreciate nephrology consultation and recommendations. Transient hyperkalemia was treated with patiromer. Serial labs. Monitor intake and output. (10) Atrial flutter: Plan: Chronic. Rate controlled. Continue metoprolol and Eliquis . If fecal occult blood is positive will need to discontinue Eliquis (11) Sacral decubitus ulcer: Plan: Pain control measures. Wound care consult appreciated. Plan Eventual discharge to SNF when arrangements are finalized Admission and Anticipated Discharge Date Admission Date: April 08, 2023 Subjective Awake and alert. No new problems. Hemoglobin stable at 8.0. Creatinine stable at 3.0. We will remove Giraldo catheter tomorrow, May 02. Placement proceedings continue. Review of Systems 2 Review of Systems: Constitutional-no fever or chills ENT-no blurred vision, no double vision, no epistaxis, no sore throat Respiratory-no cough, no wheezing, no shortness of breath Cardiac-no palpitations, no chest pain, no syncope GI-no nausea, vomiting, diarrhea, melena, hematochezia -no urinary retention, no urinary incontinence, no dysuria, no hematuria Musculoskeletal-no joint pain, no muscle tenderness Skin-no bruising, no rashes, no pruritus Neuro-no isolated weakness, no paresthesia, no weakness Psych-no depression, no anxiety Physical Exam 2 Physical Exam: General-alert and oriented x3, no fevers, no chills HEENT-head atraumatic and normocephalic, pupils equal and reactive to light, extraocular muscles intact Neck-no lymphadenopathy or thyromegaly, trachea midline Chest-clear to auscultation percussion. No rales wheezing or rhonchi Cardiac-regular rate and rhythm, normal S1 and S2 Abdomen-normal bowel sounds, nontender, no hepatosplenomegaly Extremities-no cyanosis, clubbing, or edema. Left hip surgical site unremarkable Neuro-cranial nerves II through XII intact, motor and sensory function within normal limits, strength symmetrical , no focal deficits Psych-normal affect, normal mood Results & Data Results & Data Vital Signs (Past 12 Hours) Vital Signs Temp Pulse Resp BP Pulse Ox O2 Del Method 05/01/23 07:01 36.8 C 93 H 18 125/73 93 Room Air Laboratory Results 05/01/23 05:47 05/01/23 05:47 PG Care Time/CCT Total # of Minutes Spent Total Time Spent with Patient: Total time spent is greater than 50% in coordination of care (as documented) at patient's floor/unit and/or counseling patient: Coding Level of Care Code 99969 SUB INP/OBS CARE 2/35MIN Diagnoses Left displaced femoral neck fracture S72.002A Anemia D64.9 Constipation K59.00 Urinary retention R33.9 Type 2 diabetes mellitus with other specified complication, with long-term current 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 E11.69; Z79.4 Diabetes mellitus watermelon inspector insulin use: with detention use Diabetes mellitus complication status: with other specified complication Diastolic CHF I50.30 Obsessive compulsive disorder F42.9 Hypothyroidism E03.9 Chronic kidney disease, stage 4 (severe) N18.4 Atrial flutter I48.92 Sacral decubitus ulcer L89.159 (5) Type 2 diabetes mellitus Diabetes mellitus detention insulin use: with watermelon inspector use Diabetes mellitus complication status: with other specified complication Qualified Code(s): E 11.69 - Type 2 diabetes mellitus with other specified complication; Z79.4 - buttermaker helper (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
[2023-05-01] MEDS: ATORVASTATIN 40 MG TAB PO SCH (20:56)
[2023-05-01] MEDS: PANTOprazole 40 MG TAB PO SCH (20:57)
[2023-05-01] MEDS: MELATONIN 3 MG TAB PO SCH (20:57)
[2023-05-01] MEDS: traZODone HCL 50 MG TAB PO SCH (20:57)
[2023-05-01] MEDS: LANTUS PER UNIT CHARGE SC SCH (20:58)
[2023-05-02] MEDS: traMADol HCL 50 MG TABLET PO PRN (03:27)
[2023-05-02] MEDS: ACETAMINOPHEN 325 MG TAB PO PRN (04:45)
[2023-05-02] MEDS: LEVOTHYROXINE SODIUM 50 MCG TABLET PO SCH (06:01)
[2023-05-02] MEDS: DOCUSATE SODIUM 100 MG CAP PO SCH ×2 (08:00→21:48)
[2023-05-02] MEDS: BUMETANIDE 1 MG TAB PO SCH (08:00)
[2023-05-02] MEDS: METOPROLOL SUCC 25MG EXT REL TAB PO SCH (08:01)
[2023-05-02] MEDS: APIXABAN 5 MG TABLET PO SCH ×2 (08:01→21:51)
[2023-05-02] MEDS: SENNOSIDES 8.8 MG/5 ML UDC PO SCH ×2 (08:01→21:48)
[2023-05-02] MEDS: POLYETHYLENE (MIRALAX) 17 GM PACK PO SCH ×3 (08:02→21:48)
[2023-05-02] MEDS: DICLOFENAC SOD 1% GEL 100 GM TUBE EXT SCH ×2 (08:03→21:55)
[2023-05-02] MEDS: INSULIN ASPART PER UNIT CHARGE SC SCH ×4 (08:53→21:53)
[2023-05-02] MEDS: PREGABALIN 50 MG CAP PO SCH ×2 (09:10→21:47)
[2023-05-02] MEDS: busPIRone 15 MG TAB PO SCH ×2 (09:10→21:49)
[2023-05-02] MEDS: fluvoxaMINE MALEATE 50 MG TAB PO SCH ×2 (09:10→21:51)
[2023-05-02 09:25] LABS: Basophils # (auto) 0.05 K/uL (0.00-0.20); Basophils % (auto) 0.5 %; Eosinophils # (auto) 0.06 K/uL (0.00-0.50); Eosinophils % (auto) 0.6 %; Hematocrit (blood only) 28.6 % (37.0-47.0); Hemoglobin 8.9 g/dl (12.0-16.0); Immature Granulocytes # (auto) 0.12 K/uL (0.01-0.20); Immature Granulocytes % (auto) 1.1 %; Lymphocytes # (auto) 1.37 K/uL (1.20-3.40); Lymphocytes % (auto) 12.6 %; Mean Corpuscular Hemoglobin 27.1 pg (25.0-34.0); Mean Corpuscular Hgb Conc 31.1 g/dL (32.0-36.0); Mean Corpuscular Volume 87.2 fL (80.0-100.0); Mean Platelet Volume 10.9 fL (9.4-12.4); Monocytes # (auto) 0.69 K/uL (0.11-0.59); Monocytes % (auto) 6.3 %; Neutrophils # (auto) 8.58 K/uL (1.40-6.50); Neutrophils % (auto) 78.9 %; Platelet Count 239 K/uL (130-400); RDW Coefficient of Variation 15.5 % (11.5-14.5); RDW Standard Deviation 48.8 fL (36.4-46.3); Red Blood Count 3.28 M/uL (4.20-5.40); White Blood Count 10.87 K/ul (4.8-10.8)
[2023-05-02 09:40] LABS: BUN Creatinine Ratio 21.7 (10-20); Calcium 8.1 mg/dl (8.6-10.3); Creatinine Clr Calc Pharmacy 26.8 ml/min; Est GFR (African American) 20.2 ml/min; Est GFR (Non-African American) 17.4 ml/min; Potassium 3.9 mmol/L (3.5-5.1)
[2023-05-02] MEDS: PATIROMER CALCIUM SORBITEX 8.4 GM PACK PO SCH (11:50)
[2023-05-02] MEDS: oxyCODONE HCL IR 5 MG TAB (IMMEDIATE RELEASE) PO PRN ×2 (15:42→21:47)
--- NOTE | 2023-05-02 17:36 | Hospitalist Progress Note ---
Date of Service May 02, 2023 Assessment & Plan (1) Left displaced femoral neck fracture: Plan: Mechanical fall resulting in left displaced femoral neck fracture. S/P repair 04/09 with biploar hip replacement . Continue physical therapy while hospitalized. SNF placement pending. (2) Anemia: Plan: with acute blood loss anemia in setting of chronic anemia. Serial labs. Received PRBC transfusion and Epogen this admission. Serial labs. Check fecal occult blood. Still pending. If positive, will need to discontinue Eliquis (3) Constipation: Plan: No evidence of obstruction on KUB. Now resolved after multiple laxatives, enemas, manual disimpaction. Continue senna, docusate, Miralax (4) Urinary retention: Plan: Giraldo removed 04/22 but subsequently required multiple straight caths afterwards. Giraldo placed again 04/23- maintain until more mobile. (5) Type 2 diabetes mellitus: Plan: ADA diet. Sliding scale coverage as needed. Continue current medical management (6) Diastolic CHF: Plan: Chronic. Monitor intake and output. Bumex has been restarted. (7) Obsessive compulsive disorder: Plan: Stable. Continue fluvoxamine (8) Hypothyroidism: Plan: Stable. Continue thyroid replacement therapy (9) Chronic kidney disease, stage 4 (severe): Plan: Had PATY superimposed on CKD stage 4. Appreciate nephrology consultation and recommendations. Transient hyperkalemia was treated with patiromer. Serial labs. Monitor intake and output. (10) Atrial flutter: Plan: Chronic. Rate controlled. Continue metoprolol and Eliquis . If fecal occult blood is positive will need to discontinue Eliquis (11) Sacral decubitus ulcer: Plan: Pain control measures. Wound care consult appreciated. General surgery evaluation requested Plan Eventual discharge to SNF when arrangements are finalized. Hopefully tomorrow, May 03, to [facility] Admission and Anticipated Discharge Date Admission Date: April 08, 2023 Subjective Alert and oriented. Wound care has evaluated the sacral decubitus ulcer. General surgery consultation requested. Tramadol switched to oxycodone for pain control. Eventual discharge to [facility] when authorization received. Hemoglobin improved to 8.7. Creatinine improved to 2.6. Left total hip arthroplasty was completed on April 09. Review of Systems 2 Review of Systems: Constitutional-no fever or chills ENT-no blurred vision, no double vision, no epistaxis, no sore throat Respiratory-no cough, no wheezing, no shortness of breath Cardiac-no palpitations, no chest pain, no syncope GI-no nausea, vomiting, diarrhea, melena, hematochezia -no urinary retention, no urinary incontinence, no dysuria, no hematuria Musculoskeletal-no joint pain, no muscle tenderness Skin-sacral decubitus ulcer noted. No bruising, no rashes, no pruritus Neuro-no isolated weakness, no paresthesia, no weakness Psych-no depression, no anxiety Physical Exam 2 Physical Exam: General-alert and oriented x3, no fevers, no chills HEENT-head atraumatic and normocephalic, pupils equal and reactive to light, extraocular muscles intact Neck-no lymphadenopathy or thyromegaly, trachea midline Chest-clear to auscultation percussion. No rales wheezing or rhonchi Cardiac-regular rate and rhythm, normal S1 and S2 Abdomen-normal bowel sounds, nontender, no hepatosplenomegaly Extremities-no cyanosis, clubbing, or edema. Left hip surgical site unremarkable Neuro-cranial nerves II through XII intact, motor and sensory function within normal limits, strength symmetrical , no focal deficits Psych-normal affect, normal mood Results & Data Results & Data Vital Signs (Past 12 Hours) Vital Signs Temp Pulse Resp BP Pulse Ox O2 Del Method 05/02/23 14:19 36.4 C L 91 H 16 115/77 99 Room Air 05/02/23 07:29 36.7 C 76 16 128/74 94 Room Air 05/02/23 07:25 Room Air Laboratory Results 05/02/23 08:48 05/02/23 08:48 PG Care Time/CCT Total # of Minutes Spent Total Time Spent with Patient: Total time spent is greater than 50% in coordination of care (as documented) at patient's floor/unit and/or counseling patient: Coding Level of Care Code 08977 SUB INP/OBS CARE 3/50MIN Diagnoses Left displaced femoral neck fracture S72.002A Anemia D64.9 Constipation K59.00 Urinary retention R33.9 Type 2 diabetes mellitus with other specified complication, with long-term current 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 E11.69; Z79.4 Diabetes mellitus alf insulin use: with intermodal customer service use Diabetes mellitus complication status: with other specified complication Diastolic CHF I50.30 Obsessive compulsive disorder F42.9 Hypothyroidism E03.9 Chronic kidney disease, stage 4 (severe) N18.4 Atrial flutter I48.92 Sacral decubitus ulcer L89.159 (5) Type 2 diabetes mellitus Diabetes mellitus intermodal customer service insulin use: with intermodal customer service use Diabetes mellitus complication status: with other specified complication Qualified Code(s): E 11.69 - Type 2 diabetes mellitus with other specified complication; Z79.4 - terminal manager (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
[2023-05-02] MEDS: CARBOHYDRATES FOR HYPOGLYCEMIA PO PRN ×2 (20:20→20:56)
[2023-05-02] MEDS: MELATONIN 3 MG TAB PO SCH (21:47)
[2023-05-02] MEDS: PANTOprazole 40 MG TAB PO SCH (21:48)
[2023-05-02] MEDS: LANTUS PER UNIT CHARGE SC SCH (21:48)
[2023-05-02] MEDS: ATORVASTATIN 40 MG TAB PO SCH (21:52)
[2023-05-02] MEDS: traZODone HCL 50 MG TAB PO SCH (21:55)
[2023-05-03] MEDS: ACETAMINOPHEN 325 MG TAB PO PRN ×2 (02:34→17:04)
[2023-05-03] MEDS: oxyCODONE HCL IR 5 MG TAB (IMMEDIATE RELEASE) PO PRN ×3 (03:47→18:19)
[2023-05-03] MEDS: LEVOTHYROXINE SODIUM 50 MCG TABLET PO SCH (06:06)
[2023-05-03 07:55] LABS: Basophils # (auto) 0.04 K/uL (0.00-0.20); Basophils % (auto) 0.4 %; Hematocrit (blood only) 29.8 % (37.0-47.0); Hemoglobin 9.1 g/dl (12.0-16.0); Immature Granulocytes # (auto) 0.11 K/uL (0.01-0.20); Immature Granulocytes % (auto) 1.1 %; Lymphocytes # (auto) 1.83 K/uL (1.20-3.40); Lymphocytes % (auto) 17.9 %; Mean Corpuscular Hgb Conc 30.5 g/dL (32.0-36.0); Mean Corpuscular Volume 88.4 fL (80.0-100.0); Mean Platelet Volume 10.9 fL (9.4-12.4); Monocytes # (auto) 0.63 K/uL (0.11-0.59); Monocytes % (auto) 6.2 %; Neutrophils # (auto) 7.51 K/uL (1.40-6.50); Neutrophils % (auto) 73.4 %; Platelet Count 252 K/uL (130-400); RDW Coefficient of Variation 15.4 % (11.5-14.5); RDW Standard Deviation 50.1 fL (36.4-46.3); Red Blood Count 3.37 M/uL (4.20-5.40); White Blood Count 10.22 K/ul (4.8-10.8)
[2023-05-03 08:20] LABS: BUN Creatinine Ratio 20.2 (10-20); Calcium 8.2 mg/dl (8.6-10.3); Creatinine Clr Calc Pharmacy 25.8 ml/min; Est GFR (African American) 19.3 ml/min; Est GFR (Non-African American) 16.6 ml/min; Potassium 4.2 mmol/L (3.5-5.1)
[2023-05-03] MEDS: METOPROLOL SUCC 25MG EXT REL TAB PO SCH (08:23)
[2023-05-03] MEDS: fluvoxaMINE MALEATE 50 MG TAB PO SCH ×2 (08:23→21:08)
[2023-05-03] MEDS: POLYETHYLENE (MIRALAX) 17 GM PACK PO SCH ×3 (08:24→21:08)
[2023-05-03] MEDS: DICLOFENAC SOD 1% GEL 100 GM TUBE EXT SCH ×2 (08:24→21:14)
[2023-05-03] MEDS: DOCUSATE SODIUM 100 MG CAP PO SCH ×2 (08:24→21:08)
[2023-05-03] MEDS: BUMETANIDE 1 MG TAB PO SCH (08:24)
[2023-05-03] MEDS: busPIRone 15 MG TAB PO SCH ×2 (08:24→21:08)
[2023-05-03] MEDS: APIXABAN 5 MG TABLET PO SCH (08:24)
[2023-05-03] MEDS: SENNOSIDES 8.8 MG/5 ML UDC PO SCH ×2 (08:25→21:08)
[2023-05-03] MEDS: INSULIN ASPART PER UNIT CHARGE SC SCH ×4 (08:31→21:18)
[2023-05-03] MEDS: PREGABALIN 50 MG CAP PO SCH ×2 (08:31→21:06)
[2023-05-03] MEDS: PATIROMER CALCIUM SORBITEX 8.4 GM PACK PO SCH (10:44)
--- NOTE | 2023-05-03 11:31 | Surgery Consultation ---
Date of Consultation May 03, 2023 Assessment & Plan (1) Sacral decubitus ulcer: Patient is a pleasant 62 yo female with PMH of Aflutter, HTN, anemia, Left ventricular hypertrophy, restrictive lung disease, DM2, Afib, Diastolic CHF, fatty liver, HLD, anxiety, depression, CKD4 that presented to the [facility] on 04/08/23 with c/o a fall at home. Patient required an orthopedic bipolar hip procedure with Dr. Childress. Unfortunately the patient reports that she developed a sacral wound a few days post procedure. General surgery is consulted for possible debridement. Sacral ulcer noted with slough present Will schedule patient for an I+D /debridement of sacral wound for this Saturday05/06/[address] Langley Please Hold Eliquis over weekend NPO at [place] Saturday Supervising Physician Co-Signing Physician Notes I have seen and examined this patient. I agree with this plan. History of Present Illness Reason for Consultation: Sacral wound Requesting Physician: Dr. Gomez Attending Physician: Marlon Gomez MD History of Present Illness Patient is a pleasant 62 yo female with PMH of Aflutter, HTN, anemia, Left ventricular hypertrophy, restrictive lung disease, DM2, Afib, Diastolic CHF, fatty liver, HLD, anxiety, depression, CKD4 that presented to the [facility] on 04/08/23 with c/o a fall at home. Patient required an orthopedic bipolar hip procedure with Dr. Childress. Unfortunately the patient reports that she developed a sacral wound a few days post procedure. General surgery is consulted for possible debridement. Allergies Allergy/AdvReac Type Severity Reaction Status Date / Time promethazine Allergy Intermediate BROKEN Verified 04/08/23 08:17 CAPILLARIES FACE Iodinated Contrast Media Allergy Unknown Unknown Verified 04/08/23 08:17 [Iodinated Contrast- Oral and IV Dye] Home Medications Medication Instructions Recorded Confirmed Type zinc gluconate 100 mg tablet 100 mg PO HS 07/23/18 04/08/23 History lorazepam 1 mg tablet (Ativan) 1 mg PO BID PRN anxiety 03/24/19 04/08/23 History buspirone 15 mg tablet 15 mg PO BID 11/28/20 04/08/23 History multivitamin (Daily Multi-Vitamin 1 tab PO QAM 04/04/21 04/08/23 History tablet) lancets (OneTouch UltraSoft #400 ea 04/12/21 04/04/23 Rx Lancets) omega-3 fatty acids 1,000 mg 1,000 mg PO QAM 08/21/21 04/08/23 History capsule acetaminophen 325 mg tablet 650 mg (2 x 325 mg) PO Q4H PRN 06/13/22 04/08/23 Rx fever #14 tabs trazodone 100 mg tablet 150 mg PO HS 07/09/22 04/08/23 History cyanocobalamin (vitamin B-12) 2,500 mcg PO 2XWK 10/08/22 04/08/23 History 2,500 mcg tablet amoxicillin 500 mg tablet 2,000 mg PO ONCE PRN Prophylaxis 10/30/22 04/08/23 History baclofen 5 mg tablet 5 mg PO TID PRN Muscle Spasm 10/30/22 04/08/23 History blood sugar diagnostic #300 ea 12/10/22 04/04/23 Rx Elderberry 250 mg PO QAM 12/20/22 04/08/23 History L.acidophil-L.casei-B.bifid-B.longum-FOS 2 cap PO QAM 12/20/22 04/08/23 History 2 billion cell-50 mg capsule (Probiotic Blend) amlodipine 10 mg tablet (Norvasc) 5 mg PO QAM 12/20/22 04/08/23 History ascorbic acid (vitamin C) 500 mg 1,000 mg PO QAM 12/20/22 04/08/23 History chewable tablet (Vitamin C) biotin 500 mcg capsule 1,000 mcg PO QAM 12/20/22 04/08/23 History bumetanide 2 mg tablet 2 mg PO QAM 12/20/22 04/08/23 History ergocalciferol (vitamin D2) 1,250 1,250 mcg PO WK 12/20/22 04/08/23 History mcg (50,000 unit) capsule (Vitamin D2) polysaccharide iron complex 150 mg 150 mg PO HS 12/20/22 04/08/23 History iron capsule (Ferrex) ondansetron 4 mg disintegrating 4 mg PO Q8H PRN nausea and 12/21/22 04/08/23 Rx tablet vomiting #14 tabs apixaban 5 mg tablet (Eliquis) 5 mg PO BID #180 tabs 12/24/22 04/08/23 Rx atorvastatin 80 mg tablet 80 mg PO HS #90 tabs 12/24/22 04/08/23 Rx metoprolol succinate 25 mg 25 mg PO DAILY 12/24/22 04/08/23 History tablet,extended release 24 hr hydrocodone 5 mg-acetaminophen 325 1 tab PO Q8H PRN pain #15 tabs 01/14/23 04/08/23 Rx mg tablet epoetin fernando-epbx 40,000 unit/mL 40,000 unit subcut UD 15 days #15 01/15/23 04/08/23 Rx injection solution (Retacrit) mL fenofibrate 160 mg tablet 160 mg PO QAM #90 tabs 01/23/23 04/08/23 Rx levothyroxine 50 mcg tablet 50 mcg PO DAILYBB #90 tabs 01/23/23 04/08/23 Rx pantoprazole 40 mg tablet,delayed 40 mg PO HS #90 tabs 01/23/23 04/08/23 Rx release nystatin 100,000 unit/gram topical 1 applic topical BID #60 grams 01/28/2304/08 Rx powder insulin lispro 100 unit/mL See Rx Instructions subcut TIDM 02/05/23 04/08/23 Rx subcutaneous solution #10 mL insulin syringe-needle U-100 0.5 #400 ea 02/05/23 04/04/23 Rx mL 31 gauge x 5/16" (Easy Comfort Insulin Syringe) Lantus U-100 Insulin 100 unit/mL See Rx Instructions subcut QPM #10 02/06/23 04/08/23 Rx subcutaneous solution (insulin mL glargine) folic acid 1 mg tablet 1 mg PO QAM #90 tabs 02/22/23 04/08/23 Rx fluvoxamine 100 mg tablet 150 mg PO BID 04/08/23 04/08/23 History prednisone 10 mg tablet See Rx Instructions .Route .COMPLEX 04/08/23 04/08/23 History pregabalin 50 mg capsule (Lyrica) 50 mg PO TID #90 caps 04/12/23 Rx Patient History Medical History Atrial flutter Hyperkalemia History of partial replacement of left hip joint using bipolar prosthesis History of COVID-2019--mild symptoms, no symptoms now On home oxygen therapy 2L n/c prn sob Vitamin D deficiency Fluid retention Right sided sciatica Trochanteric fracture of left femur Closed fracture of greater trochanter of left femur (06/07/22) 05/2022--currently in PT, no surgery Pneumonia hx of, not recently AV fistula September 07, 2020 > right wrist > not on dialysis at present CKD (chronic kidney disease) Atrial fibrillation and flutter CKD (chronic kidney disease) Dizziness Generalized weakness Syncope PAF (paroxysmal atrial fibrillation) Atrial fibrillation, new onset dx August 2020> cardioversions x2. on eliquis > follows Dr. Fontaine Cardiac murmur Mild TR noted on 2019 echo. 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 Per [facility] pulm 12/2019, "fairly stable from a pulmonary perspective. She is short of breath with any exertion, however a large part of this is likely related to obesity. Pulmonary functions done 1 year ago showed only a mild restrictive pattern. Diffusion was slightly decreased to 66%. One year ago she did have a normal arterial blood gas with no evidence of CO2 retention." Using PRN 3L, mostly using with exertion, not using every day. Diastolic congestive heart failure Euvolemic on exam at [facility] 09/02/20. follows with Dr. Fontaine Diabetic retinopathy, nonproliferative Diabetic peripheral neuropathy Diabetic nephropathy Claustrophobia Chronic rhinitis Arthralgia of multiple sites Anxiety and depression Acute renal failure (05/23/14) 2013. Kidneys recovered to around CKD III, then function worsened around 04/2020. Chronic low back pain Hypothyroidism Hyperlipemia Hypertension Diabetes IDDM Surgical History History of bilateral cataract extraction History of cardioversion x2 Status post gastric bypass for obesity 09/14/2020- Dr. Ash- [facility] History of arthroscopy x2 left shoulder History of total shoulder replacement LEFT 07/19 2015 fracture History of esophagogastroduodenoscopy (EGD) History of colonoscopy History of dermoid cyst excision S/P tooth extraction History of mandibular surgery FULL ROM H/O section x1 Hx of cholecystectomy Family History Daughter Multiple allergies Bipolar disorder Aunt Breast cancer Mother Diabetes Heart disease Hyperthyroidism Hypertension Father Gastric cancer Hearing loss Myocardial infarction Grandfather Heart disease Family/Other Osteoporosis Lung cancer Hypertension Stroke Brother Hypertension Grandmother Ovarian cancer Sister Diabetes Migraine Other No family history of adverse response to anesthesia Denies family history of Prostate cancer Colorectal cancer Uterine cancer Social History Smoking Status: Never smoker Second Hand Exposure: No; Do You Dip or Chew Tobacco: No; Hx Alcohol Use: No Hx Substance Use: No Preferred Language: Polish Communication Ability: Effective Visual Impairment: No Limitations Director Of Student Life Required: No Beliefs That Will Affect Care: None marital status: Current Living Situation: Spouse Current Living Situation Comment: Home w/ current occupational status: employed and unemployed Feels Safe at Home: Yes Childhood Exposure to Second-Hand Smoke: Yes Dental Care, Regularly: Yes Physical Activity Frequency: Does not Exercise Seatbelt Use: always Sunscreen Use: Yes Assistive Devices: Cane and Walker Review of Systems Integumentary: + wounds (sacral wound ) Physical Exam Physical Exam: alert oriented Skin: sacral ulcer with slough noted. Genitourinary: hawkins cath Results & Data Vital Signs (Past 12 Hours) Vital Signs Temp Pulse Resp BP Pulse Ox O2 Del Method 05/03/23 08:16 97.5 F L 66 16 112/76 96 Room Air PG Care Time/CCT Total # of Minutes Spent Total Time Spent with Patient: Total time spent is greater than 50% in coordination of care (as documented) at patient's floor/unit and/or counseling patient: Coding Level of Care Code 14111 IN/OBS CONSULT LVL 2,35M Diagnoses Sacral decubitus ulcer L89.159
--- NOTE | 2023-05-03 13:30 | Surgery Progress Note ---
Date of Service May 03, 2023 Assessment & Plan (1) History of partial replacement of left hip joint using bipolar prosthesis: Plan: 62-year-old female with multiple medical comorbidities now little over 3 weeks out from a cemented bipolar for fracture. She is doing well from an orthopedic standpoint. She got multiple other medical issues including some decubiti ulcers which are requiring treatment. Plan: Patient can continue to progress with physical therapy and Occupational Therapy. She is fully weightbearing as tolerated. She needs to obey hip precautions. I need to see her back in about 3 to 4 weeks. Any orthopedic questions can reactivate [id number] Admission and Anticipated Discharge Date Admission Date: April 08, 2023 Subjective 62-year-old female with multiple medical comorbidities now 3+ weeks out from a left cemented bipolar hip arthroplasty for fracture. She is continued be in the hospital mostly due to placement issues. She is doing pretty well. Hip seems to be doing fine. Does not complain of any real hip pain. Physical Exam Physical Exam: Physical examination left hip reveals patient is lying in bed and looks pretty comfortable. Examination left hip incision reveals it to be healed nicely. The kari are out. No significant swelling. Leg lengths are equal. She got no particular pain with hip motion. She is neurologically intact. Results & Data Vital Signs (Past 12 Hours) Vital Signs Temp Pulse Resp BP Pulse Ox O2 Del Method 05/03/23 09:15 Room Air 05/03/23 08:16 36.4 C L 66 16 112/76 96 Room Air PG Care Time/CCT Total # of Minutes Spent Total Time Spent with Patient: Total time spent is greater than 50% in coordination of care (as documented) at patient's floor/unit and/or counseling patient: Coding Level of Care Code 98856 Post Operative Follow-Up Diagnoses History of partial replacement of left hip joint using bipolar prosthesis Z96.642
--- NOTE | 2023-05-03 14:46 | Hospitalist Progress Note ---
Date of Service May 03, 2023 Assessment & Plan (1) Left displaced femoral neck fracture: Plan: Mechanical fall resulting in left displaced femoral neck fracture. S/P repair 04/09 with biploar hip replacement . Continue physical therapy while hospitalized. SNF placement pending. (2) Anemia: Plan: with acute blood loss anemia in setting of chronic anemia. Serial labs. Received PRBC transfusion and Epogen this admission. Serial labs. Fecal occult blood is negative. (3) Constipation: Plan: No evidence of obstruction on KUB. Now resolved after multiple laxatives, enemas, manual disimpaction. Continue senna, docusate, Miralax (4) Urinary retention: Plan: Giraldo removed 04/22 but subsequently required multiple straight caths afterwards. Giraldo placed again 04/23- maintain until more mobile. (5) Type 2 diabetes mellitus: Plan: ADA diet. Sliding scale coverage as needed. Continue current medical management (6) Diastolic CHF: Plan: Chronic. Monitor intake and output. Bumex has been restarted. (7) Obsessive compulsive disorder: Plan: Stable. Continue fluvoxamine (8) Hypothyroidism: Plan: Stable. Continue thyroid replacement therapy (9) Chronic kidney disease, stage 4 (severe): Plan: Had PATY superimposed on CKD stage 4. Appreciate nephrology consultation and recommendations. Transient hyperkalemia was treated with patiromer. Serial labs. Monitor intake and output. (10) Atrial flutter: Plan: Chronic. Rate controlled. Continue metoprolol and Eliquis . If fecal occult blood is positive will need to discontinue Eliquis (11) Sacral decubitus ulcer: Plan: Pain control measures. Wound care consult appreciated. General surgery has seen the patient and she will undergo debridement this coming May 06. Eliquis is now on hold. Plan Eventual discharge to SNF when arrangements are finalized. [facility] to [facility] Admission and Anticipated Discharge Date Admission Date: April 08, 2023 Subjective Alert and oriented. No new problems. General surgery has evaluated the patient and she will undergo sacral wound debridement on Saturday. Eliquis is now on hold. Orthopedic entry noted. Fecal occult blood is negative. Hemoglobin has improved to 9.1. Creatinine stable at 2.8. Giraldo catheter will remain in place for now Review of Systems 2 Review of Systems: Constitutional-no fever or chills ENT-no blurred vision, no double vision, no epistaxis, no sore throat Respiratory-no cough, no wheezing, no shortness of breath Cardiac-no palpitations, no chest pain, no syncope GI-no nausea, vomiting, diarrhea, melena, hematochezia -no urinary retention, no urinary incontinence, no dysuria, no hematuria Musculoskeletal-no joint pain, no muscle tenderness Skin-sacral decubitus ulcer noted. No bruising, no rashes, no pruritus Neuro-no isolated weakness, no paresthesia, no weakness Psych-no depression, no anxiety Physical Exam 2 Physical Exam: General-alert and oriented x3, no fevers, no chills HEENT-head atraumatic and normocephalic, pupils equal and reactive to light, extraocular muscles intact Neck-no lymphadenopathy or thyromegaly, trachea midline Chest-clear to auscultation percussion. No rales wheezing or rhonchi Cardiac-regular rate and rhythm, normal S1 and S2 Abdomen-normal bowel sounds, nontender, no hepatosplenomegaly Extremities-no cyanosis, clubbing, or edema. Left hip surgical site unremarkable Neuro-cranial nerves II through XII intact, motor and sensory function within normal limits, strength symmetrical , no focal deficits Psych-normal affect, normal mood Results & Data Results & Data Vital Signs (Past 12 Hours) Vital Signs Temp Pulse Resp BP Pulse Ox O2 Del Method 05/03/23 09:15 Room Air 05/03/23 08:16 36.4 C L 66 16 112/76 96 Room Air Laboratory Results 05/03/23 07:02 05/03/23 07:02 PG Care Time/CCT Total # of Minutes Spent Total Time Spent with Patient: Total time spent is greater than 50% in coordination of care (as documented) at patient's floor/unit and/or counseling patient: Coding Level of Care Code 09408 SUB INP/OBS CARE 3/50MIN Diagnoses Left displaced femoral neck fracture S72.002A Anemia D64.9 Constipation K59.00 Urinary retention R33.9 Type 2 diabetes mellitus with other specified complication, with long-term current 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 E11.69; Z79.4 Diabetes mellitus intermediate designer insulin use: with intermediate designer use Diabetes mellitus complication status: with other specified complication Diastolic CHF I50.30 Obsessive compulsive disorder F42.9 Hypothyroidism E03.9 Chronic kidney disease, stage 4 (severe) N18.4 Atrial flutter I48.92 Sacral decubitus ulcer L89.159 (5) Type 2 diabetes mellitus Diabetes mellitus senior living insulin use: with senior living use Diabetes mellitus complication status: with other specified complication Qualified Code(s): E 11.69 - Type 2 diabetes mellitus with other specified complication; Z79.4 - alf (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
[2023-05-03] MEDS: traZODone HCL 50 MG TAB PO SCH (21:06)
[2023-05-03] MEDS: ATORVASTATIN 40 MG TAB PO SCH (21:07)
[2023-05-03] MEDS: PANTOprazole 40 MG TAB PO SCH (21:07)
[2023-05-03] MEDS: MELATONIN 3 MG TAB PO SCH (21:07)
[2023-05-03] MEDS: LANTUS PER UNIT CHARGE SC SCH (21:22)
[2023-05-04] MEDS: oxyCODONE HCL IR 5 MG TAB (IMMEDIATE RELEASE) PO PRN ×4 (00:36→20:23)
[2023-05-04] MEDS: LEVOTHYROXINE SODIUM 50 MCG TABLET PO SCH (05:42)
[2023-05-04 06:32] LABS: Basophils # (auto) 0.06 K/uL (0.00-0.20); Basophils % (auto) 0.7 %; Eosinophils # (auto) 0.08 K/uL (0.00-0.50); Eosinophils % (auto) 0.9 %; Hemoglobin 8.6 g/dl (12.0-16.0); Immature Granulocytes # (auto) 0.08 K/uL (0.01-0.20); Immature Granulocytes % (auto) 0.9 %; Lymphocytes # (auto) 1.59 K/uL (1.20-3.40); Lymphocytes % (auto) 17.4 %; Mean Corpuscular Hgb Conc 30.7 g/dL (32.0-36.0); Mean Corpuscular Volume 87.8 fL (80.0-100.0); Mean Platelet Volume 10.6 fL (9.4-12.4); Monocytes # (auto) 0.76 K/uL (0.11-0.59); Monocytes % (auto) 8.3 %; Neutrophils # (auto) 6.56 K/uL (1.40-6.50); Neutrophils % (auto) 71.8 %; Platelet Count 197 K/uL (130-400); RDW Coefficient of Variation 15.3 % (11.5-14.5); Red Blood Count 3.19 M/uL (4.20-5.40); White Blood Count 9.13 K/ul (4.8-10.8)
[2023-05-04 06:33] LABS: Calcium 8.1 mg/dl (8.6-10.3); Potassium 4.4 mmol/L (3.5-5.1)
[2023-05-04 06:39] LABS: BUN Creatinine Ratio 21.1 (10-20); Creatinine Clr Calc Pharmacy 27.9 ml/min; Est GFR (African American) 21.2 ml/min; Est GFR (Non-African American) 18.3 ml/min
[2023-05-04] MEDS: DICLOFENAC SOD 1% GEL 100 GM TUBE EXT SCH ×2 (09:02→20:13)
[2023-05-04] MEDS: INSULIN ASPART PER UNIT CHARGE SC SCH ×4 (09:05→20:20)
[2023-05-04] MEDS: PREGABALIN 50 MG CAP PO SCH ×2 (09:06→20:17)
[2023-05-04] MEDS: ACETAMINOPHEN 325 MG TAB PO PRN ×2 (09:06→11:56)
[2023-05-04] MEDS: METOPROLOL SUCC 25MG EXT REL TAB PO SCH ×2 (09:06→11:56)
[2023-05-04] MEDS: BUMETANIDE 1 MG TAB PO SCH ×2 (09:06→11:25)
[2023-05-04] MEDS: DOCUSATE SODIUM 100 MG CAP PO SCH ×2 (09:06→20:18)
[2023-05-04] MEDS: POLYETHYLENE (MIRALAX) 17 GM PACK PO SCH ×3 (09:07→20:17)
[2023-05-04] MEDS: busPIRone 15 MG TAB PO SCH ×2 (09:07→21:43)
[2023-05-04] MEDS: SENNOSIDES 8.8 MG/5 ML UDC PO SCH ×2 (09:07→20:12)
[2023-05-04] MEDS: fluvoxaMINE MALEATE 50 MG TAB PO SCH ×2 (09:09→20:18)
[2023-05-04] MEDS ORDERED: SODIUM CHLORIDE 0.9% 250 ML IV ONE (10:11)
[2023-05-04] MEDS: PATIROMER CALCIUM SORBITEX 8.4 GM PACK PO SCH (11:21)
[2023-05-04] MEDS ORDERED: dilTIAZem HCL 30 MG TAB PO ONE (13:01)
--- NOTE | 2023-05-04 13:07 | Hospitalist Progress Note ---
Date of Service May 04, 2023 Assessment & Plan (1) Left displaced femoral neck fracture: Plan: Mechanical fall resulting in left displaced femoral neck fracture. S/P repair 04/09 with biploar hip replacement . Continue physical therapy while hospitalized. SNF placement pending. (2) Wandering atrial pacemaker: Plan: Diltiazem started. Bumex has been discontinued. Cardiac echo ordered and pending (3) Anemia: Plan: with acute blood loss anemia in setting of chronic anemia. Serial labs. Received PRBC transfusion and Epogen this admission. Serial labs. Fecal occult blood is negative. (4) Constipation: Plan: No evidence of obstruction on KUB. Now resolved after multiple laxatives, enemas, manual disimpaction. Continue senna, docusate, Miralax (5) Urinary retention: Plan: Giraldo removed 04/22 but subsequently required multiple straight caths afterwards. Giraldo placed again 04/23- maintain until more mobile. (6) Type 2 diabetes mellitus: Plan: ADA diet. Sliding scale coverage as needed. Continue current medical management (7) Diastolic CHF: Plan: Chronic. Monitor intake and output. Bumex has been discontinued today, May 04, due to low blood pressure this morning (8) Obsessive compulsive disorder: Plan: Stable. Continue fluvoxamine (9) Hypothyroidism: Plan: Stable. Continue thyroid replacement therapy (10) Chronic kidney disease, stage 4 (severe): Plan: Had PATY superimposed on CKD stage 4. Appreciate nephrology consultation and recommendations. Transient hyperkalemia was treated with patiromer. Serial labs. Monitor intake and output. (11) Atrial flutter: Plan: History of atrial flutter. Currently she appears to have a wandering atrial pacemaker. Low-dose diltiazem has been started. Eliquis is on hold currently for upcoming decubitus ulcer debridement. Discontinue metoprolol. Fecal occult blood is negative (12) Sacral decubitus ulcer: Plan: Pain control measures. Wound care consult appreciated. General surgery has seen the patient and she will undergo debridement this coming May 06. Eliquis is now on hold. Plan Eventual discharge to SNF when arrangements are finalized. Hopefully to [facility] Admission and Anticipated Discharge Date Admission Date: April 08, 2023 Subjective Alert and oriented without complaint. She was somewhat hypotensive this morning and tachycardic. This resolved with IV fluids. Bumex has been discontinued. EKG is consistent with wandering atrial pacemaker. Diltiazem has been started. We will follow Review of Systems 2 Review of Systems: Constitutional-no fever or chills ENT-no blurred vision, no double vision, no epistaxis, no sore throat Respiratory-no cough, no wheezing, no shortness of breath Cardiac-no palpitations, no chest pain, no syncope GI-no nausea, vomiting, diarrhea, melena, hematochezia -no urinary retention, no urinary incontinence, no dysuria, no hematuria Musculoskeletal-no joint pain, no muscle tenderness Skin-sacral decubitus ulcer noted. No bruising, no rashes, no pruritus Neuro-no isolated weakness, no paresthesia, no weakness Psych-no depression, no anxiety Physical Exam 2 Physical Exam: General-alert and oriented x3, no fevers, no chills HEENT-head atraumatic and normocephalic, pupils equal and reactive to light, extraocular muscles intact Neck-no lymphadenopathy or thyromegaly, trachea midline Chest-clear to auscultation percussion. No rales wheezing or rhonchi Cardiac-slightly tachycardic irregular rate and rhythm. Normal S1 and S2 Abdomen-normal bowel sounds, nontender, no hepatosplenomegaly Skinstage II sacral decubitus noted Extremities-no cyanosis, clubbing, or edema. Left hip surgical site unremarkable Neuro-cranial nerves II through XII intact, motor and sensory function within normal limits, strength symmetrical , no focal deficits Psych-normal affect, normal mood Results & Data Results & Data Vital Signs (Past 12 Hours) Vital Signs Temp Pulse Pulse Resp BP Pulse Ox O2 Del Method 05/04/23 11:19 78 21 115/63 96 Room Air 05/04/23 10:12 77 20 109/61 96 Room Air 05/04/23 09:58 80 20 114/69 96 Room Air 05/04/23 09:15 121 H 20 92/48 L 95 Room Air 05/04/23 07:27 36.9 C 80 18 125/67 95 Room Air Laboratory Results 05/04/23 05:38 05/04/23 05:38 PG Care Time/CCT Total # of Minutes Spent Total Time Spent with Patient: Total time spent is greater than 50% in coordination of care (as documented) at patient's floor/unit and/or counseling patient: Coding Level of Care Code 67854 SUB INP/OBS CARE MIN Diagnoses Left displaced femoral neck fracture S72.002A Wandering atrial pacemaker I49.8 Anemia D64.9 Constipation K59.00 Urinary retention R33.9 Type 2 diabetes mellitus with other specified complication, with long-term current 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 E11.69; Z79.4 Diabetes mellitus superintendent container terminal insulin use: with retirement use Diabetes mellitus complication status: with other specified complication Diastolic CHF I50.30 Obsessive compulsive disorder F42.9 Hypothyroidism E03.9 Chronic kidney disease, stage 4 (severe) N18.4 Atrial flutter I48.92 Sacral decubitus ulcer L89.159 (6) Type 2 diabetes mellitus Diabetes mellitus retirement insulin use: with superintendent container terminal use Diabetes mellitus complication status: with other specified complication Qualified Code(s): E 11.69 - Type 2 diabetes mellitus with other specified complication; Z79.4 - detention (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
[2023-05-04] MEDS ORDERED: Nursing to Pharmacy Communication SCH (15:15)
[2023-05-04] MEDS: dilTIAZem HCL 30 MG TAB PO SCH ×3 (18:22→20:12)
[2023-05-04] MEDS ORDERED: MoRPHine SULFATE 2 MG/ML CARP IV STA (19:57)
[2023-05-04] MEDS: traZODone HCL 50 MG TAB PO SCH (20:17)
[2023-05-04] MEDS: MELATONIN 3 MG TAB PO SCH (20:18)
[2023-05-04] MEDS: ATORVASTATIN 40 MG TAB PO SCH (20:18)
[2023-05-04] MEDS: PANTOprazole 40 MG TAB PO SCH (20:18)
[2023-05-04] MEDS: LANTUS PER UNIT CHARGE SC SCH (20:20)
[2023-05-05] MEDS: LEVOTHYROXINE SODIUM 50 MCG TABLET PO SCH (05:37)
[2023-05-05] MEDS: SENNOSIDES 8.8 MG/5 ML UDC PO SCH ×2 (08:46→21:37)
[2023-05-05] MEDS: fluvoxaMINE MALEATE 50 MG TAB PO SCH ×2 (08:46→21:34)
[2023-05-05] MEDS: dilTIAZem HCL 30 MG TAB PO SCH (08:46)
[2023-05-05] MEDS: ERGOCALCIFEROL 50,000 UNITS 1250 MCG CAP PO SCH (08:47)
[2023-05-05] MEDS: DOCUSATE SODIUM 100 MG CAP PO SCH ×2 (08:47→21:34)
[2023-05-05] MEDS: PREGABALIN 50 MG CAP PO SCH ×2 (08:50→21:36)
[2023-05-05] MEDS: ACETAMINOPHEN 325 MG TAB PO PRN (08:50)
[2023-05-05] MEDS: POLYETHYLENE (MIRALAX) 17 GM PACK PO SCH ×3 (08:50→21:36)
[2023-05-05] MEDS: DICLOFENAC SOD 1% GEL 100 GM TUBE EXT SCH ×2 (08:50→21:34)
[2023-05-05] MEDS: INSULIN ASPART PER UNIT CHARGE SC SCH ×4 (08:51→21:35)
--- NOTE | 2023-05-05 12:15 | XCELERA ---
[id number] \\[id number]
[2023-05-05] MEDS: busPIRone 15 MG TAB PO SCH ×2 (12:34→21:34)
[2023-05-05] MEDS: PATIROMER CALCIUM SORBITEX 8.4 GM PACK PO SCH (12:34)
--- NOTE | 2023-05-05 14:27 | Hospitalist Progress Note ---
Date of Service May 05, 2023 Assessment & Plan (1) Left displaced femoral neck fracture: Plan: Mechanical fall resulting in left displaced femoral neck fracture. S/P repair 04/09 with biploar hip replacement . Continue physical therapy while hospitalized. SNF placement pending. (2) Wandering atrial pacemaker: Plan: Diltiazem started. Bumex has been discontinued. Cardiac echo report noted. Short acting diltiazem switch to long-acting CD formulation today, May 05. Repeat EKG obtained and noted (3) Anemia: Plan: with acute blood loss anemia in setting of chronic anemia. Serial labs. Received PRBC transfusion and Epogen this admission. Now stable. Fecal occult blood is negative. (4) Constipation: Plan: No evidence of obstruction on KUB. Now resolved after multiple laxatives, enemas, manual disimpaction. Continue senna, docusate, Miralax (5) Urinary retention: Plan: Giraldo removed 04/22 but subsequently required multiple straight caths afterwards. Giraldo placed again 04/23. Will maintain until more mobile per patient request (6) Type 2 diabetes mellitus: Plan: ADA diet. Sliding scale coverage as needed. Continue current medical management (7) Diastolic CHF: Plan: Chronic. Monitor intake and output. Bumex has been discontinued on May 04, due to low blood pressure. (8) Obsessive compulsive disorder: Plan: Stable. Continue fluvoxamine (9) Hypothyroidism: Plan: Stable. Continue thyroid replacement therapy (10) Chronic kidney disease, stage 4 (severe): Plan: Had PATY superimposed on CKD stage 4. Appreciate nephrology consultation and recommendations. Transient hyperkalemia was treated with patiromer. We will avoid SANDRA inhibitors or ARB's. Avoid spironolactone. Serial labs. Monitor intake and output. (11) Atrial flutter: Plan: History of atrial flutter. Short acting diltiazem switch to long-acting formulation today, May 05. Repeat EKG obtained and noted. Eliquis is on hold currently for upcoming decubitus ulcer debridement. Metoprolol has been discontinued. (12) Sacral decubitus ulcer: Plan: Pain control measures. Wound care consult appreciated. General surgery has seen the patient and she will undergo debridement tomorrow, May 06. Eliquis is now on hold. Plan Eventual discharge to SNF when arrangements are finalized. Hopefully to [facility] this week Admission and Anticipated Discharge Date Admission Date: April 08, 2023 Subjective Alert and oriented. No significant change clinically. Repeat EKG reveals what appears to be atrial flutter with variable block. Short acting diltiazem switch to long-acting CD formulation. She is awaiting sacral decubitus debridement tomorrow, May 06 Review of Systems 2 Review of Systems: Constitutional-no fever or chills ENT-no blurred vision, no double vision, no epistaxis, no sore throat Respiratory-no cough, no wheezing, no shortness of breath Cardiac-no palpitations, no chest pain, no syncope GI-no nausea, vomiting, diarrhea, melena, hematochezia -no urinary retention, no urinary incontinence, no dysuria, no hematuria Musculoskeletal-no joint pain, no muscle tenderness Skin-sacral decubitus ulcer noted. No bruising, no rashes, no pruritus Neuro-no isolated weakness, no paresthesia, no weakness Psych-no depression, no anxiety Physical Exam 2 Physical Exam: General-alert and oriented x3, no fevers, no chills HEENT-head atraumatic and normocephalic, pupils equal and reactive to light, extraocular muscles intact Neck-no lymphadenopathy or thyromegaly, trachea midline Chest-clear to auscultation percussion. No rales wheezing or rhonchi Cardiac-slightly tachycardic irregular rate and rhythm. Normal S1 and S2 Abdomen-normal bowel sounds, nontender, no hepatosplenomegaly Skinstage II sacral decubitus noted Extremities-no cyanosis, clubbing, or edema. Left hip surgical site unremarkable Neuro-cranial nerves II through XII intact, motor and sensory function within normal limits, strength symmetrical , no focal deficits Psych-normal affect, normal mood Results & Data Results & Data Vital Signs (Past 12 Hours) Vital Signs Temp Pulse Resp BP Pulse Ox O2 Del Method 05/05/23 08:00 Room Air 05/05/23 07:33 36.8 C 86 18 135/78 94 Room Air 05/05/23 06:04 77 120/72 Laboratory Results 05/04/23 05:38 05/04/23 05:38 PG Care Time/CCT Total # of Minutes Spent Total Time Spent with Patient: Total time spent is greater than 50% in coordination of care (as documented) at patient's floor/unit and/or counseling patient: Coding Level of Care Code 08565 SUB INP/OBS CARE MIN Diagnoses Left displaced femoral neck fracture S72.002A Wandering atrial pacemaker I49.8 Anemia D64.9 Constipation K59.00 Urinary retention R33.9 Type 2 diabetes mellitus with other specified complication, with long-term current 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 E11.69; Z79.4 Diabetes mellitus termite control service representative insulin use: with shelter use Diabetes mellitus complication status: with other specified complication Diastolic CHF I50.30 Obsessive compulsive disorder F42.9 Hypothyroidism E03.9 Chronic kidney disease, stage 4 (severe) N18.4 Atrial flutter I48.92 Sacral decubitus ulcer L89.159 (6) Type 2 diabetes mellitus Diabetes mellitus shelter insulin use: with shelter use Diabetes mellitus complication status: with other specified complication Qualified Code(s): E 11.69 - Type 2 diabetes mellitus with other specified complication; Z79.4 - care home (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
[2023-05-05] MEDS: dilTIAZem HCL 180 MG CAPCR PO SCH (14:55)
[2023-05-05] MEDS: ATORVASTATIN 40 MG TAB PO SCH (21:33)
[2023-05-05] MEDS: LANTUS PER UNIT CHARGE SC SCH (21:35)
[2023-05-05] MEDS: PANTOprazole 40 MG TAB PO SCH (21:36)
[2023-05-05] MEDS: MELATONIN 3 MG TAB PO SCH (21:36)
[2023-05-05] MEDS: traZODone HCL 50 MG TAB PO SCH (21:39)
[2023-05-06] MEDS: MoRPHine SULFATE 2 MG/ML CARP IV PRN (00:07)
[2023-05-06] MEDS: LEVOTHYROXINE SODIUM 50 MCG TABLET PO SCH (05:38)
[2023-05-06] MEDS: INSULIN ASPART PER UNIT CHARGE SC SCH ×4 (05:39→20:48)
[2023-05-06] MEDS: POLYETHYLENE (MIRALAX) 17 GM PACK PO SCH ×3 (06:53→20:49)
[2023-05-06] MEDS: DICLOFENAC SOD 1% GEL 100 GM TUBE EXT SCH ×2 (06:53→20:47)
[2023-05-06 07:55] LABS: Basophils # (auto) 0.04 K/uL (0.00-0.20); Basophils % (auto) 0.4 %; Eosinophils # (auto) 0.06 K/uL (0.00-0.50); Eosinophils % (auto) 0.7 %; Hematocrit (blood only) 25.7 % (37.0-47.0); Hemoglobin 7.9 g/dl (12.0-16.0); Immature Granulocytes % (auto) 1.1 %; Lymphocytes # (auto) 1.43 K/uL (1.20-3.40); Lymphocytes % (auto) 15.9 %; Mean Corpuscular Hemoglobin 26.5 pg (25.0-34.0); Mean Corpuscular Hgb Conc 30.7 g/dL (32.0-36.0); Mean Corpuscular Volume 86.2 fL (80.0-100.0); Mean Platelet Volume 10.8 fL (9.4-12.4); Monocytes # (auto) 0.62 K/uL (0.11-0.59); Monocytes % (auto) 6.9 %; Neutrophils # (auto) 6.73 K/uL (1.40-6.50); Platelet Count 204 K/uL (130-400); RDW Coefficient of Variation 15.3 % (11.5-14.5); RDW Standard Deviation 47.6 fL (36.4-46.3); Red Blood Count 2.98 M/uL (4.20-5.40); White Blood Count 8.98 K/ul (4.8-10.8)
[2023-05-06] MEDS: dilTIAZem HCL 180 MG CAPCR PO SCH (08:08)
[2023-05-06] MEDS: SENNOSIDES 8.8 MG/5 ML UDC PO SCH ×2 (08:08→20:49)
[2023-05-06] MEDS: fluvoxaMINE MALEATE 50 MG TAB PO SCH ×2 (08:08→20:47)
[2023-05-06] MEDS: DOCUSATE SODIUM 100 MG CAP PO SCH ×2 (08:09→20:47)
[2023-05-06] MEDS: busPIRone 15 MG TAB PO SCH ×2 (08:09→20:46)
[2023-05-06] MEDS: PATIROMER CALCIUM SORBITEX 8.4 GM PACK PO SCH (08:15)
[2023-05-06] MEDS: PREGABALIN 50 MG CAP PO SCH ×2 (08:15→20:53)
[2023-05-06 08:38] LABS: Calcium 7.8 mg/dl (8.6-10.3); Potassium 4.2 mmol/L (3.5-5.1)
[2023-05-06 08:40] LABS: RBC Morphology Unremarkable
[2023-05-06 08:44] LABS: BUN Creatinine Ratio 22.3 (10-20); Creatinine Clr Calc Pharmacy 29.5 ml/min; Est GFR (African American) 22.7 ml/min; Est GFR (Non-African American) 19.6 ml/min
--- NOTE | 2023-05-06 11:55 | Anesthesiology Consultation ---
Date of Service May 06, 2023 Assessment & Plan (1) Encounter for pre-operative examination: Chart Review Chart Review: Acceptable Risk for Surgery History Surgery Operation Date: 04/09/23 07:00 Proposed Procedures p Left Cemented Bipolar Hip - Eric Childress MD Operation Date: 05/06/23 12:40 Proposed Procedures p Incision and Drainage, Debridement Sacral Wound - Yasmany Langley DO Height/Weight Height: 5 ft 7 in Weight: 113.8 kg Allergies Allergy/AdvReac Type Severity Reaction Status Date / Time promethazine Allergy Intermediate BROKEN Verified 04/08/23 08:17 CAPILLARIES FACE Iodinated Contrast Media Allergy Unknown Unknown Verified 04/08/23 08:17 [Iodinated Contrast- Oral and IV Dye] Medications Home Medications Medication Instructions Recorded Confirmed Last Taken zinc gluconate 100 mg tablet 100 mg PO HS 07/23/18 04/08/23 04/07/23 lorazepam 1 mg tablet (Ativan) 1 mg PO BID PRN anxiety 03/24/19 04/08/23 04/07/23 buspirone 15 mg tablet 15 mg PO BID 11/28/20 04/08/23 04/07/23 multivitamin (Daily Multi-Vitamin 1 tab PO QAM 04/04/21 04/08/23 04/07/23 tablet) lancets (OneTouch UltraSoft #400 ea 04/12/21 04/04/23 Unknown Lancets) omega-3 fatty acids 1,000 mg 1,000 mg PO QAM 08/21/21 04/08/23 04/07/23 capsule acetaminophen 325 mg tablet 650 mg (2 x 325 mg) PO Q4H PRN 06/13/22 04/08/23 12/30/22 08:00 fever #14 tabs trazodone 100 mg tablet 150 mg PO HS 07/09/22 04/08/23 04/07/23 cyanocobalamin (vitamin B-12) 2,500 mcg PO 2XWK 10/08/22 04/08/23 04/04/23 2,500 mcg tablet amoxicillin 500 mg tablet 2,000 mg PO ONCE PRN Prophylaxis 10/30/22 04/08/23 Unknown baclofen 5 mg tablet 5 mg PO TID PRN Muscle Spasm 10/30/22 04/08/23 Unknown blood sugar diagnostic #300 ea 12/10/22 04/04/23 Unknown Elderberry 250 mg PO QAM 12/20/22 04/08/23 04/07/23 L.acidophil-L.casei-B.bifid-B.longum-FOS 2 cap PO QAM 12/20/22 04/08/23 04/07/23 2 billion cell-50 mg capsule (Probiotic Blend) amlodipine 10 mg tablet (Norvasc) 5 mg PO QAM 12/20/22 04/08/23 04/07/23 ascorbic acid (vitamin C) 500 mg 1,000 mg PO QAM 12/20/22 04/08/23 04/07/23 chewable tablet (Vitamin C) biotin 500 mcg capsule 1,000 mcg PO QAM 12/20/22 04/08/23 04/07/23 bumetanide 2 mg tablet 2 mg PO QAM 12/20/22 04/08/23 04/07/23 ergocalciferol (vitamin D2) 1,250 1,250 mcg PO WK 12/20/22 04/08/23 04/07/23 mcg (50,000 unit) capsule (Vitamin D2) polysaccharide iron complex 150 mg 150 mg PO HS 12/20/22 04/08/23 04/07/23 iron capsule (Ferrex) ondansetron 4 mg disintegrating 4 mg PO Q8H PRN nausea and 12/21/22 04/08/23 Unknown tablet vomiting #14 tabs apixaban 5 mg tablet (Eliquis) 5 mg PO BID #180 tabs 12/24/22 04/08/23 04/07/23 atorvastatin 80 mg tablet 80 mg PO HS #90 tabs 12/24/22 04/08/23 04/07/23 metoprolol succinate 25 mg 25 mg PO DAILY 12/24/22 04/08/23 04/07/23 tablet,extended release 24 hr hydrocodone 5 mg-acetaminophen 325 1 tab PO Q8H PRN pain #15 tabs 01/14/23 04/08/23 Unknown mg tablet epoetin fernando-epbx 40,000 unit/mL 40,000 unit subcut UD 15 days #15 01/15/23 04/08/23 1 Month Ago injection solution (Retacrit) mL ~03/09/23 fenofibrate 160 mg tablet 160 mg PO QAM #90 tabs 01/23/23 04/08/23 04/07/23 levothyroxine 50 mcg tablet 50 mcg PO DAILYBB #90 tabs 01/23/23 04/08/23 04/07/23 pantoprazole 40 mg tablet,delayed 40 mg PO HS #90 tabs 01/23/23 04/08/23 04/07/23 release nystatin 100,000 unit/gram topical 1 applic topical BID #60 grams 01/28/23 04/08/23 04/07/23 powder insulin lispro 100 unit/mL See Rx Instructions subcut TIDM 02/05/23 04/08/23 04/07/23 subcutaneous solution #10 mL insulin syringe-needle U-100 0.5 #400 ea 02/05/23 04/04/23 Unknown mL 31 gauge x 5/16" (Easy Comfort Insulin Syringe) Lantus U-100 Insulin 100 unit/mL See Rx Instructions subcut QPM #10 02/06/23 04/08/23 04/07/23 subcutaneous solution (insulin mL glargine) folic acid 1 mg tablet 1 mg PO QAM #90 tabs 02/22/23 04/08/23 04/07/23 fluvoxamine 100 mg tablet 150 mg PO BID 04/08/23 04/08/23 04/07/23 prednisone 10 mg tablet See Rx Instructions .Route .COMPLEX 04/08/23 04/08/23 Unknown pregabalin 50 mg capsule (Lyrica) 50 mg PO TID #90 caps 04/12/23 Unknown Active Medications Generic Name Dose Route Start Last Admin Trade Name Freq PRN Reason Stop Dose Admin Acetaminophen 650 mg 04/24/23 13:52 05/05/23 08:50 Acetaminophen 325 Mg Tab PO 05/24/23 13:51 650 mg Q4H PRN Administration Pain Apixaban 5 mg 04/21/23 21:00 05/03/23 08:24 Apixaban 5 Mg Tablet PO 05/21/23 20:59 5 mg BID JOHNATHON Administration Atorvastatin Calcium 80 mg 04/08/23 21:00 05/05/23 21:33 Atorvastatin 40 Mg Tab PO 05/08/23 20:59 80 mg HS JOHNATHON Administration Buspirone HCl 15 mg 04/08/23 09:00 05/06/23 08:09 Buspirone 15 Mg Tab PO 05/08/23 08:59 15 mg BID JOHNATHON Administration Diclofenac Sodium 2 gm 04/16/23 21:00 05/06/23 06:53 Diclofenac Sod 1% Gel 100 Gm Tube EXT 05/16/23 20:59 Not Given BID [facility] Protocol Diltiazem HCl 180 mg 05/05/23 12:30 05/06/23 08:08 Diltiazem Hcl 180 Mg Capcr PO 06/04/23 12:29 180 mg QAM JOHNATHON Administration Docusate Sodium 100 mg 04/20/23 09:00 05/06/23 08:09 Docusate Sodium 100 Mg Cap PO 05/20/23 08:59 Not Given BID JOHNATHON Ergocalciferol 50,000 units 04/28/23 09:00 05/05/23 08:47 Ergocalciferol 50,000 Units 1250 Mcg Cap PO 05/28/23 08:59 50,000 units Kelly@0900 JOHNATHON Administration Fluvoxamine Maleate 150 mg 04/08/23 11:00 05/06/23 08:08 Fluvoxamine Maleate 50 Mg Tab PO 05/08/23 10:59 150 mg BID JOHNATHON Administration Insulin Aspart 0 units 05/06/23 06:00 05/06/23 05:39 Insulin Aspart Per Unit Charge SC 06/05/23 05:59 Not Given Q6 JOHNATHON Insulin Glargine 3 units 04/16/23 21:00 05/05/23 21:35 Lantus Per Unit Charge SC 05/16/23 20:59 3 units HS JOHNATHON Administration Levothyroxine Sodium 50 mcg 04/09/23 06:30 05/06/23 05:38 Levothyroxine Sodium 50 Mcg Tablet PO 05/09/23 06:29 50 mcg DAILYBB JOHNATHON Administration Lorazepam 1 mg 04/27/23 12:25 04/30/23 08:43 Lorazepam 1 Mg Tab PO 05/27/23 12:24 1 mg BID PRN Administration anxiety Melatonin 3 mg 04/29/23 21:00 05/05/23 21:36 Melatonin 3 Mg Tab PO 05/29/23 20:59 3 mg HS JOHNATHON Administration Miconazole Nitrate 1 appln 04/10/23 19:57 04/16/23 21:53 Miconazole Nitrate Powder 85 Gm EXT 05/10/23 20:59 1 appln BID PRN Administration Affected Skin Folds Miscellaneous 15 - 30 gm 04/08/23 10:15 05/02/23 20:56 Carbohydrates For Hypoglycemia PO 05/08/23 10:14 15 gm UD PRN Administration Hypoglycemia Treatment Morphine Sulfate 3 mg 05/05/23 08:21 05/06/23 00:07 Morphine Sulfate 2 Mg/Ml Carp IV 05/19/23 08:20 3 mg Q3H PRN Administration Pain Ondansetron HCl 4 mg 04/26/23 13:15 04/26/23 13:21 Ondansetron Inj 2 Mg/Ml 2 Ml Vial IV 05/26/23 13:14 4 mg Q6H PRN Administration Nausea And Vomiting Pantoprazole Sodium 40 mg 04/08/23 21:00 05/05/23 21:36 Pantoprazole 40 Mg Tab PO 05/08/23 20:59 40 mg HS JOHNATHON Administration Patiromer 8.4 gm 04/24/23 11:00 05/06/23 08:15 Patiromer Calcium Sorbitex 8.4 Gm Pack PO 05/24/23 10:59 Not Given DAILY@1100 JOHNATHON Polyethylene Glycol 17 gm 04/21/23 14:00 05/06/23 06:53 Polyethylene (Miralax) 17 Gm Pack PO 05/21/23 13:59 Not Given TID JOHNATHON Pregabalin 50 mg 04/08/23 11:00 05/06/23 08:15 Pregabalin 50 Mg Cap PO 05/08/23 10:59 50 mg BID JOHNATHON Administration Sennosides 8.8 mg 04/21/23 21:00 05/06/23 08:08 Sennosides 8.8 Mg/5 Ml Udc PO 05/21/23 20:59 8.8 mg BID JOHNATHON Administration Trazodone HCl 150 mg 04/08/23 21:00 05/05/23 21:39 Trazodone Hcl 50 Mg Tab PO 05/08/23 20:59 150 mg HS JOHNATHON Administration NPO Date Last Intake of Fluids: 05/05/23 Time Last Intake of Fluids: 23:59 Last Intake of Fluids Comment: sip of water 0800 w/meds Date Last Intake of Solids: 05/05/23 Time Last Intake of Solids: 23:59 Past Medical History Medical History (Updated 05/06/23 @ 11:54 by George Mccallum MD) Atrial flutter History of partial replacement of left hip joint using bipolar prosthesis History of COVID-2019--mild symptoms, no symptoms now On home oxygen therapy 2L n/c prn sob Vitamin D deficiency Fluid retention Right sided sciatica Pneumonia hx of, not recently AV fistula September 07, 2020 > right wrist > not on dialysis at present Atrial fibrillation and flutter Dizziness Generalized weakness Syncope PAF (paroxysmal atrial fibrillation) Atrial fibrillation, new onset dx August 2020> cardioversions x2. on eliquis > follows Dr. Fontaine Cardiac murmur Mild TR noted on 2019 echo. 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 Per [facility] [place]2019, "fairly stable from a pulmonary perspective. She is short of breath with any exertion, however a large part of this is likely related to obesity. Pulmonary functions done 1 year ago showed only a mild restrictive pattern. Diffusion was slightly decreased to 66%. One year ago she did have a normal arterial blood gas with no evidence of CO2 retention." Using PRN 3L, mostly using with exertion, not using every day. Diastolic congestive heart failure Euvolemic on exam at [facility] 09/02/20. follows with Dr. Fontaine Diabetic retinopathy, nonproliferative Diabetic peripheral neuropathy Claustrophobia Chronic rhinitis Arthralgia of multiple sites Anxiety and depression Chronic low back pain Hypothyroidism Hyperlipemia Hypertension Diabetes IDDM Past Family History Family History Daughter Multiple allergies Bipolar disorder Aunt Breast cancer Mother Diabetes Heart disease Hyperthyroidism Hypertension Father Gastric cancer Hearing loss Myocardial infarction Grandfather Heart disease Family/Other Osteoporosis Lung cancer Hypertension Stroke Brother Hypertension Grandmother Ovarian cancer Sister Diabetes Migraine Other No family history of adverse response to anesthesia Denies family history of Prostate cancer Colorectal cancer Uterine cancer Past Surgical History Surgical History History of bilateral cataract extraction History of cardioversion x2 Status post gastric bypass for obesity 09/14/2020- Dr. Ash- [facility] History of arthroscopy x2 left shoulder History of total shoulder replacement LEFT 07/19 2015 fracture History of esophagogastroduodenoscopy (EGD) History of colonoscopy History of dermoid cyst excision S/P tooth extraction History of mandibular surgery FULL ROM H/O section x1 Hx of cholecystectomy Social History Smoking Status: Never smoker Do You Dip or Chew Tobacco: No Hx Alcohol Use: No Alcohol type: beer alcohol intake frequency: holidays/special occasions only Hx Substance Use: No substance use type: does not use Physical Exam Vital Signs Last Vital Signs Temp 36.7 C 05/06/23 07:28 Pulse 78 05/06/23 11:14 Resp 20 05/06/23 11:14 BP 112/69 05/06/23 11:14 Pulse Ox 93 05/06/23 11:14 O2 Del Method Room Air 05/06/23 11:14 O2 Flow Rate 2 04/16/23 11:00 Testing Laboratory Results 05/06/23 07:17 05/06/23 07:17 PT 11.3 Seconds (9.0-12.0) 04/08/23 03:05 INR 1.0 (0.9-1.1) 04/08/23 03:05 APTT 24.4 Seconds (21.0-31.0) 04/08/23 03:05 Urine Color Yellow 04/12/23 19:00 Urine Appearance Clear (Clear) 04/12/23 19:00 Urine pH 5.0 (4.5-7.5) 04/12/23 19:00 Ur Specific [place] 1.016 (1.000-1.030) 04/12/23 19:00 Urine Protein 1+ (Negative) H 04/12/23 19:00 Urine Glucose (UA) Negative (Negative) 04/12/23 19:00 Urine Ketones Negative (Negative) 04/12/23 19:00 Urine Nitrite Negative (Negative) 04/12/23 19:00 Ur Leukocyte Esterase Trace (Negative) H 04/12/23 19:00 Urine WBC (Auto) 5-10 /hpf (0-5) H 04/12/23 19:00 Urine RBC (Auto) 0-4 /hpf (0-4) 04/12/23 19:00 U Hyaline Cast (Auto) 1-5 /lpf (0-5) 04/12/23 19:00 U Epithel Cells (Auto) - /lpf (0-5) H 04/12/23 19:00 Urine Bacteria (Auto) Negative (Negative) 04/12/23 19:00 Blood Type O Positive 04/08/23 21:25 Antibody Screen NEGATIVE 04/08/23 21:25 04/12/23 19:00 Urine Culture - Final Urine,Straight Cath No growth - less than 1,000 colonies/mL. 05/06/23 05:39 POC Glucose 92 Electrocardiogram Date: 05/05/23 Findings: + poor R wave progression atrial flutter, vent rate 87 Echocardiogram Date: 05/05/23 EF: 50% Other Findings: + atrial enlargement and + LVH moderate TR
--- NOTE | 2023-05-06 11:57 | History & Physical Bridge Note ---
Date of Service May 06, 2023 History & Physical Bridge Note I have examined the patient, reviewed the History & Physical and in the interval since the performance of the History & Physical I have noted the following changes of clinical significance: no changes noted Patient to the OR today for debridement of a necrotic sacral wound. Consent is on the chart.
[2023-05-06] MEDS ORDERED: ONDANSETRON INJ 2 MG/ML 2 ML VIAL IV PRN (12:42)
[2023-05-06] MEDS ORDERED: ATROPINE SULFATE 0.1 MG/ML 10ML SYR IV PRN (12:42)
[2023-05-06] MEDS ORDERED: SODIUM CHLORIDE 0.9% 1,000 ML IV SCH (12:45)
[2023-05-06] MEDS ORDERED: fentaNYL citrate PF 100 MCG/2 ML VIAL ONE (12:47)
[2023-05-06] MEDS ORDERED: MIDAZOLAM HCL 1 MG/ML 2ML VIAL ONE (12:47)
[2023-05-06] MEDS ORDERED: BUPIVACAINE/EPINEPHRINE 0.5% MPF 1:200,000 30 ML VIAL ONE (13:03)
[2023-05-06] MEDS ORDERED: CLINDAMYCIN 900 MG/D5W 50 ML BAG IV ONE (13:25)
[2023-05-06] MEDS ORDERED: CLINDAMYCIN/D5W 900 MG/50 ML BAG IV ONE (13:27)
[2023-05-06] MEDS ORDERED: LIDOCAINE 2% 2 ML VIAL/AMP(20MG/ML) INFIL ONE (13:33)
[2023-05-06] MEDS ORDERED: ETOMIDATE 2 MG/ML 20 ML VIAL IV ONE (13:33)
[2023-05-06] MEDS ORDERED: PROPOFOL IV EMULSION 10 MG/ML 20 ML VIAL IV ONE (13:33)
[2023-05-06] MEDS ORDERED: ROCURONIUM BROMIDE 10 MG/ML 5 ML VIAL IV ONE (13:33)
[2023-05-06] MEDS ORDERED: SUGAMMADEX SODIUM 200 MG/2 ML VIAL IV ONE (13:33)
[2023-05-06] MEDS ORDERED: ONDANSETRON INJ 2 MG/ML 2 ML VIAL ONE (13:33)
[2023-05-06] MEDS ORDERED: ePHEDrine sulfate 50 MG/5 ML SYR ONE (13:39)
[2023-05-06] MEDS ORDERED: ESMOLOL HCL INJ 10 MG/ML 10ML VIAL IV ONE (13:39)
[2023-05-06] MEDS ORDERED: VANCOMYCIN HCL 1000MG/20ML VIAL ONE (13:53)
[2023-05-06] MEDS ORDERED: PHENYLEPHRINE 100MCG/ML 10ML SYR IV ONE (14:02)
--- NOTE | 2023-05-06 14:19 | Operative Report ---
PG Post Operative Report Pre & Post Diagnosis Operation Date: 05/06/23 12:40 Pre-Op Diagnosis: Infected sacral wound Post-Op Diagnosis: Infected sacral wound I identified the patient and participated in the time-out.: Yes Procedure Operation Date: 05/06/23 12:40 Actual Procedures p Incision and Drainage, Debridement Sacral Wound - Yasmany Langley DO Surgeon Yasmany Langley DO Maintenance Repairer Hitesh Gonzales PA-C Estimated Blood Loss 200 Findings Consistent with Post-Op Diagnosis Specimens None Wound cultures were sent Anesthesia Type General Complications none Disposition Accompanied Patient To Recovery: No Indications Infected sacral decubitus ulcer with necrotic layer Description of Procedure The patient was brought back to the operating, connected to cardiac oxygen monitoring, administered supplemental O2 room placed on the OR table in prone position. The sacral area was prepped and draped in typical sterile fashion using Betadine prep. Sharp debridement was used to remove the necrotic tissue. This exposed a deep wound down to the muscle and tendon over the bony coccyx. This area was very wet containing grayish fluid. A wound culture was taken. The area was debrided of loose necrotic and infected appearing tissue. Bleeding was controlled with cautery. After hemostasis was achieved, the wound was copiously irrigated with saline containing Vancomycin. The wound was packed with 2inch packing and covered with dry gauze and ABD secured in place with perforated tape. The patient tolerated the procedure well, she was awakened from anesthesia and transferred to recovery in stable condition. I attest to the content of the Intraoperative Record and any orders documented therein. Any exceptions are noted below.
[2023-05-06] MEDS: HYDROmorphone INJ 1 MG/ML SYRINGE IV PRN ×3 (14:26→14:36)
--- NOTE | 2023-05-06 14:44 | Anesthesiology Progress Note ---
Date of Service May 06, 2023 Anesthesia Post Procedure Vital Signs Vital Signs: Temp Pulse Pulse Resp BP Pulse Ox O2 Del Method 05/06/23 14:40 75 12 115/51 L 94 Room Air 05/06/23 14:30 74 12 128/64 100 Oxymask 05/06/23 14:21 36.1 C L 76 18 108/67 100 Oxymask 05/06/23 12:12 36.9 C 78 16 143/71 H 94 Room Air 05/06/23 11:14 78 20 112/69 93 Room Air 05/06/23 09:00 Room Air 05/06/23 08:06 123 H 20 127/77 95 Room Air 05/06/23 07:28 36.7 C 76 16 102/62 92 Room Air 05/05/23 21:35 Room Air 05/05/23 20:49 36.6 C 73 18 136/84 94 Room Air 05/05/23 14:56 36.8 C 80 17 119/79 99 Room Air O2 Flow Rate 05/06/23 14:40 05/06/23 14:30 7 05/06/23 14:21 13 05/06/23 12:12 05/06/23 11:14 05/06/23 09:00 05/06/23 08:06 05/06/23 07:28 05/05/23 21:35 05/05/23 20:49 05/05/23 14:56 Pain Intensity Left Hip: Pain Intensity: 0 Groin: Pain Intensity: 0 Buttock: Pain Intensity: 4 Upper Abdomen: Pain Intensity: 7 Transfer of Care Handoff Completed per policy Notes Mental Status: alert / awake / arousable and participated in evaluation Patient Amnestic to Procedure: Yes Nausea / Vomiting: adequately controlled Pain: adequately controlled Airway Patency, RR, SpO2: stable & adequate BP & HR: stable & adequate Hydration State: stable & adequate Anesthetic Complications: no major complications apparent and Pt Satisfied with anesthetic care
--- NOTE | 2023-05-06 14:54 | Hospitalist Progress Note ---
Date of Service May 06, 2023 Assessment & Plan (1) Left displaced femoral neck fracture: Plan: Mechanical fall resulting in left displaced femoral neck fracture. S/P repair 04/09 with biploar hip replacement . Continue physical therapy while hospitalized. SNF placement pending. (2) Anemia: Plan: with acute blood loss anemia in setting of chronic anemia. Serial labs. Received PRBC transfusion and Epogen this admission. Now stable. Fecal occult blood is negative. (3) Constipation: Plan: No evidence of obstruction on KUB. Now resolved after multiple laxatives, enemas, manual disimpaction. Continue senna, docusate, Miralax (4) Urinary retention: Plan: Giraldo removed 04/22 but subsequently required multiple straight caths afterwards. Giraldo placed again 04/23. Will maintain until more mobile per patient request (5) Type 2 diabetes mellitus: Plan: ADA diet. Sliding scale coverage as needed. Continue current medical management (6) Diastolic CHF: Plan: Chronic. Monitor intake and output. Bumex has been discontinued on May 04, due to low blood pressure. (7) Obsessive compulsive disorder: Plan: Stable. Continue fluvoxamine (8) Hypothyroidism: Plan: Stable. Continue thyroid replacement therapy (9) Chronic kidney disease, stage 4 (severe): Plan: Had PATY superimposed on CKD stage 4. Appreciate nephrology consultation and recommendations. Transient hyperkalemia was treated with patiromer. We will avoid SANDRA inhibitors or ARB's. Avoid spironolactone. Serial labs. Monitor intake and output. (10) Atrial flutter: Plan: History of atrial flutter. Diltiazem replaces metoprolol. Short acting diltiazem switched to long-acting formulation on May 05. Repeat EKG obtained and noted. Eliquis is on hold currently for upcoming decubitus ulcer debridement. Metoprolol has been discontinued. (11) Sacral decubitus ulcer: Plan: Pain control measures. Wound care consult appreciated. General surgery consultation and recommendations appreciated. She underwent sacral wound debridement today, May 06. She is now on Zosyn. Eliquis is now on hold. This can be restarted tomorrow, May 07 Plan Eventual discharge to SNF when arrangements are finalized. Hopefully to [facility] in [place] this week Admission and Anticipated Discharge Date Admission Date: April 08, 2023 Subjective The patient was seen this morning prior to sacral decubitus debridement. She has some evidence of bilateral conjunctivitis. Gentamicin eyedrops have been ordered. Sacral wound cultures are pending. She is now on intravenous Zosyn. Eliquis can be restarted tomorrow, May 07, if there is no bleeding. Hopefully she can go to [facility] in [place] later this week. Review of Systems 2 Review of Systems: Constitutional-no fever or chills ENT-no blurred vision, no double vision, no epistaxis, no sore throat. Mattering and irritation in both eyes, right greater than left Respiratory-no cough, no wheezing, no shortness of breath Cardiac-no palpitations, no chest pain, no syncope GI-no nausea, vomiting, diarrhea, melena, hematochezia -no urinary retention, no urinary incontinence, no dysuria, no hematuria Musculoskeletal-no joint pain, no muscle tenderness Skin-sacral decubitus ulcer noted. No bruising, no rashes, no pruritus Neuro-no isolated weakness, no paresthesia, no weakness Psych-no depression, no anxiety Physical Exam 2 Physical Exam: General-alert and oriented x3, no fevers, no chills HEENT-head atraumatic and normocephalic, pupils equal and reactive to light, extraocular muscles intact. Bilateral conjunctivitis noted Neck-no lymphadenopathy or thyromegaly, trachea midline Chest-clear to auscultation percussion. No rales wheezing or rhonchi Cardiac-slightly tachycardic irregular rate and rhythm. Normal S1 and S2 Abdomen-normal bowel sounds, nontender, no hepatosplenomegaly Skinstage II sacral decubitus noted Extremities-no cyanosis, clubbing, or edema. Left hip surgical site unremarkable Neuro-cranial nerves II through XII intact, motor and sensory function within normal limits, strength symmetrical , no focal deficits Psych-normal affect, normal mood Results & Data Results & Data Vital Signs (Past 12 Hours) Vital Signs Temp Pulse Pulse Resp BP Pulse Ox O2 Del Method 05/06/23 14:40 75 12 115/51 L 94 Room Air 05/06/23 14:30 74 12 128/64 100 Oxymask 05/06/23 14:21 36.1 C L 76 18 108/67 100 Oxymask 05/06/23 12:12 36.9 C 78 16 143/71 H 94 Room Air 05/06/23 11:14 78 20 112/69 93 Room Air 05/06/23 09:00 Room Air 05/06/23 08:06 123 H 20 127/77 95 Room Air 05/06/23 07:28 36.7 C 76 16 102/62 92 Room Air O2 Flow Rate 05/06/23 14:40 05/06/23 14:30 7 05/06/23 14:21 13 05/06/23 12:12 05/06/23 11:14 05/06/23 09:00 05/06/23 08:06 05/06/23 07:28 Laboratory Results 05/06/23 07:17 05/06/23 07:17 PG Care Time/CCT Total # of Minutes Spent Total Time Spent with Patient: Total time spent is greater than 50% in coordination of care (as documented) at patient's floor/unit and/or counseling patient: Coding Level of Care Code 50466 SUB INP/OBS CARE 350MIN Diagnoses Left displaced femoral neck fracture S72.002A Anemia D64.9 Constipation K59.00 Urinary retention R33.9 Type 2 diabetes mellitus with other specified complication, with long-term current 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 E11.69; Z79.4 Diabetes mellitus terminal supervisor insulin use: with prison use Diabetes mellitus complication status: with other specified complication Diastolic CHF I50.30 Obsessive compulsive disorder F42.9 Hypothyroidism E03.9 Chronic kidney disease, stage 4 (severe) N18.4 Atrial flutter I48.92 Sacral decubitus ulcer L89.159 (5) Type 2 diabetes mellitus Diabetes mellitus terminal supervisor insulin use: with terminal supervisor use Diabetes mellitus complication status: with other specified complication Qualified Code(s): E 11.69 - Type 2 diabetes mellitus with other specified complication; Z79.4 - termite control representative (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
[2023-05-06] MEDS ORDERED: PIPER/TAZO 4.5g in D5W MINI-B 100 ML IV ONE (15:15)
[2023-05-06] MEDS ORDERED: Nursing to Pharmacy Communication SCH (16:15)
[2023-05-06] MEDS ORDERED: oxyCODONE HCL IR 5 MG TAB (IMMEDIATE RELEASE) PO PRN (16:19)
[2023-05-06] MEDS: oxyCODONE HCL IR 5 MG TAB (IMMEDIATE RELEASE) PO PRN (16:44)
[2023-05-06] MEDS: GENTAMICIN SULFATE 0.3% OP SOLN 5 ML BTL OP SCH ×2 (16:44→20:48)
--- NOTE | 2023-05-06 19:28 | Electrocardiogram Report ---
Test Reason : Blood Pressure : / mmHG Vent. Rate : 118 BPM Atrial Rate : 119 BPM P-R Int : 000 ms QRS Dur : 078 ms QT Int : 320 ms P-R-T Axes : 000 042 -29 degrees QTc Int : 448 ms Poor data quality, interpretation may be adversely affected Possible Atrial flutter Low voltage QRS Nonspecific ST abnormality Abnormal ECG When compared with ECG of 10-APR-2023 09:07, No significant change Confirmed by Amaury Perry ([id number]) on 05/06/2023 7:28:17 PM Referred By: REFERRED SELF Confirmed By:Amaury Perry
--- NOTE | 2023-05-06 19:29 | Electrocardiogram Report ---
Test Reason : Blood Pressure : / mmHG Vent. Rate : 095 BPM Atrial Rate : 234 BPM P-R Int : 000 ms QRS Dur : 084 ms QT Int : 346 ms P-R-T Axes : 000 -10 -02 degrees QTc Int : 434 ms Atrial flutter with variable A-V block Low voltage QRS Cannot rule out Inferior infarct , age undetermined Abnormal ECG When compared with ECG of 04-MAY-2023 09:40, No significant change Confirmed by Amaury Perry ([id number]) on 05/06/2023 7:28:53 PM Referred By: REFERRED SELF Confirmed By:Amaury Perry
[2023-05-06] MEDS: ATORVASTATIN 40 MG TAB PO SCH (20:46)
[2023-05-06] MEDS: PANTOprazole 40 MG TAB PO SCH (20:48)
[2023-05-06] MEDS: MELATONIN 3 MG TAB PO SCH (20:48)
[2023-05-06] MEDS: PIPERACILLIN/TAZOBACTAM 4.5 GM in DEXTROSE 5% MINI-B 100 ML IV SCH (20:49)
[2023-05-06] MEDS: LANTUS PER UNIT CHARGE SC SCH (20:52)
[2023-05-06] MEDS: traZODone HCL 50 MG TAB PO SCH (20:53)
[2023-05-07] MEDS: oxyCODONE HCL IR 5 MG TAB (IMMEDIATE RELEASE) PO PRN ×4 (02:51→20:18)
[2023-05-07] MEDS: PIPERACILLIN/TAZOBACTAM 4.5 GM in DEXTROSE 5% MINI-B 100 ML IV SCH ×3 (05:44→20:08)
[2023-05-07] MEDS: LEVOTHYROXINE SODIUM 50 MCG TABLET PO SCH (05:45)
[2023-05-07 05:55] LABS: Basophils # (auto) 0.03 K/uL (0.00-0.20); Basophils % (auto) 0.3 %; Eosinophils # (auto) 0.09 K/uL (0.00-0.50); Hematocrit (blood only) 25.1 % (37.0-47.0); Hemoglobin 7.7 g/dl (12.0-16.0); Immature Granulocytes % (auto) 1.1 %; Lymphocytes % (auto) 16.6 %; Mean Corpuscular Hemoglobin 26.9 pg (25.0-34.0); Mean Corpuscular Hgb Conc 30.7 g/dL (32.0-36.0); Mean Corpuscular Volume 87.8 fL (80.0-100.0); Mean Platelet Volume 10.6 fL (9.4-12.4); Monocytes # (auto) 0.66 K/uL (0.11-0.59); Monocytes % (auto) 7.3 %; Neutrophils # (auto) 6.65 K/uL (1.40-6.50); Neutrophils % (auto) 73.7 %; Platelet Count 184 K/uL (130-400); RDW Coefficient of Variation 15.2 % (11.5-14.5); RDW Standard Deviation 48.4 fL (36.4-46.3); Red Blood Count 2.86 M/uL (4.20-5.40); White Blood Count 9.03 K/ul (4.8-10.8)
[2023-05-07 06:47] LABS: Calcium 7.7 mg/dl (8.6-10.3); Potassium 4.1 mmol/L (3.5-5.1)
[2023-05-07 06:52] LABS: BUN Creatinine Ratio 20.2 (10-20); Creatinine Clr Calc Pharmacy 28.7 ml/min; Est GFR (African American) 21.9 ml/min; Est GFR (Non-African American) 18.9 ml/min
[2023-05-07 06:59] LABS: Hypochromasia Present
[2023-05-07] MEDS: SENNOSIDES 8.8 MG/5 ML UDC PO SCH ×2 (08:23→21:33)
[2023-05-07] MEDS: fluvoxaMINE MALEATE 50 MG TAB PO SCH ×2 (08:23→20:07)
[2023-05-07] MEDS: busPIRone 15 MG TAB PO SCH ×2 (08:24→20:05)
[2023-05-07] MEDS: DICLOFENAC SOD 1% GEL 100 GM TUBE EXT SCH ×2 (08:24→20:06)
[2023-05-07] MEDS: DOCUSATE SODIUM 100 MG CAP PO SCH ×2 (08:24→20:06)
[2023-05-07] MEDS: POLYETHYLENE (MIRALAX) 17 GM PACK PO SCH ×3 (08:24→20:08)
[2023-05-07] MEDS: GENTAMICIN SULFATE 0.3% OP SOLN 5 ML BTL OP SCH ×4 (08:25→20:07)
[2023-05-07] MEDS: dilTIAZem HCL 180 MG CAPCR PO SCH (08:25)
[2023-05-07] MEDS: PREGABALIN 50 MG CAP PO SCH ×2 (08:29→20:18)
[2023-05-07] MEDS: INSULIN ASPART PER UNIT CHARGE SC SCH ×4 (08:58→20:31)
[2023-05-07] MEDS: PATIROMER CALCIUM SORBITEX 8.4 GM PACK PO SCH (12:34)
--- NOTE | 2023-05-07 13:21 | Hospitalist Progress Note ---
Date of Service May 07, 2023 Assessment & Plan (1) Left displaced femoral neck fracture: Plan: Mechanical fall resulting in left displaced femoral neck fracture. S/P repair 04/09 with biploar hip replacement . Continue physical therapy while hospitalized. SNF placement pending. (2) Sacral decubitus ulcer: Plan: Stage IV sacral wound, present on admission She is now status post debridements on May 06 Pain control measures. Wound care consult appreciated. General surgery consultation and recommendations appreciated. She is now on Zosyn. Eliquis is now on hold. This can be restarted tomorrow, May 07 Patient may need wound VAC before discharge to SNF (3) Anemia: Plan: with acute blood loss anemia in setting of chronic anemia. Serial labs. Received PRBC transfusion and Epogen this admission. Now stable. Fecal occult blood is negative. (4) Constipation: Plan: No evidence of obstruction on KUB. Now resolved after multiple laxatives, enemas, manual disimpaction. Continue senna, docusate, Miralax (5) Urinary retention: Plan: Giraldo removed 04/22 but subsequently required multiple straight caths afterwards. Giraldo placed again 04/23. Will maintain until more mobile per patient request (6) Type 2 diabetes mellitus: Plan: ADA diet. Sliding scale coverage as needed. Continue current medical management (7) Diastolic CHF: Plan: Chronic. Monitor intake and output. Bumex has been discontinued on May 04, due to low blood pressure. (8) Obsessive compulsive disorder: Plan: Stable. Continue fluvoxamine (9) Hypothyroidism: Plan: Stable. Continue thyroid replacement therapy (10) Chronic kidney disease, stage 4 (severe): Plan: Had PATY superimposed on CKD stage 4. Appreciate nephrology consultation and recommendations. Transient hyperkalemia was treated with patiromer. We will avoid SANDRA inhibitors or ARB's. Avoid spironolactone. Serial labs. Monitor intake and output. (11) Atrial flutter: Plan: History of atrial flutter. Diltiazem replaces metoprolol. Short acting diltiazem switched to long-acting formulation on May 05. Repeat EKG obtained and noted. Eliquis is on hold currently for upcoming decubitus ulcer debridement. Metoprolol has been discontinued. Plan Eventual discharge to SNF when arrangements are finalized. Hopefully to [facility] in [place] this week Admission and Anticipated Discharge Date Admission Date: April 08, 2023 Subjective Patient seen and examined today, she is now status post debridement of her sacral wound. There is a possibility of wound VAC placement Review of Systems Review of Systems: All systems reviewed are negative, apart from the ones contained in the history. Physical Exam Physical Exam: The patient is awake, alert and oriented 3, well developed and well nourished, normocephalic and atraumatic, lying in bed and in no acute distress. HEENT--PERRL, EOMI, mucous membranes and oropharynx mildly dry Neck--supple. No JVD. No bruits. Thyroid normal, trachea midline, no adenopathy. Heart--normal S1 and S2. No murmurs, rubs or gallops. Lungs--clear bilaterally, no respiratory distress, no accessory muscle use. Abdomen--normal bowel sounds and soft. Extremities--no cyanosis or clubbing. No edema. Dermatologic--normal skin turgor, normal color, no abnormal lymph nodes, no rash. Neurologic--cranial nerves II through XII grossly intact. Rheumatologic--normal range of motion. Psychiatric--normal affect. Results & Data Results & Data Vital Signs (Past 12 Hours) Vital Signs Temp Pulse Pulse Resp BP Pulse Ox O2 Del Method 05/07/23 09:53 80 16 105/66 97 Nasal Cannula 05/07/23 07:19 98.1 F 77 16 97/52 L 90 Room Air 05/07/23 04:15 97.7 F 79 16 106/59 L 92 Room Air O2 Flow Rate 05/07/23 09:53 2 05/07/23 07:19 05/07/23 04:15 PG Care Time/CCT Total # of Minutes Spent Total Time Spent with Patient: Total time spent is greater than 50% in coordination of care (as documented) at patient's floor/unit and/or counseling patient: Coding Level of Care Code 94695 SUB INP/OBS CARE 2/35MIN Diagnoses Left displaced femoral neck fracture S72.002A Sacral decubitus ulcer L89.159 Anemia D64.9 Constipation K59.00 Urinary retention R33.9 Type 2 diabetes mellitus with other specified complication, with long-term curr ent 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 E11.69; Z79.4 Diabetes mellitus residential insulin use: with residential use Diabetes mellitus complication status: with other specified complication Diastolic CHF I50.30 Obsessive compulsive disorder F42.9 Hypothyroidism E03.9 Chronic kidney disease, stage 4 (severe) N18.4 Atrial flutter I48.92 Time Spent (min) 35 (6) Type 2 diabetes mellitus Diabetes mellitus 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
[2023-05-07] MEDS: ATORVASTATIN 40 MG TAB PO SCH (20:05)
[2023-05-07] MEDS: MELATONIN 3 MG TAB PO SCH (20:07)
[2023-05-07] MEDS: PANTOprazole 40 MG TAB PO SCH (20:08)
[2023-05-07] MEDS: traZODone HCL 50 MG TAB PO SCH (20:17)
[2023-05-07] MEDS: LANTUS PER UNIT CHARGE SC SCH (20:19)
[2023-05-08] MEDS: oxyCODONE HCL IR 5 MG TAB (IMMEDIATE RELEASE) PO PRN ×4 (01:40→20:40)
[2023-05-08] MEDS: PIPERACILLIN/TAZOBACTAM 4.5 GM in DEXTROSE 5% MINI-B 100 ML IV SCH ×3 (05:33→21:45)
[2023-05-08] MEDS: LEVOTHYROXINE SODIUM 50 MCG TABLET PO SCH (05:33)
--- NOTE | 2023-05-08 06:11 | Electrocardiogram Report ---
Test Reason : Blood Pressure : / mmHG Vent. Rate : 087 BPM Atrial Rate : 234 BPM P-R Int : 000 ms QRS Dur : 088 ms QT Int : 348 ms P-R-T Axes : 122 007 -13 degrees QTc Int : 418 ms Atrial flutter with variable A-V block Low voltage QRS Abnormal ECG When compared with ECG of 04-MAY-2023 09:54, No significant change was found Confirmed by Amaury Perry ([id number]) on 05/08/2023 6:11:52 AM Referred By: REFERRED SELF Confirmed By:Amaury Perry
[2023-05-08 07:28] LABS: Basophils # (auto) 0.04 K/uL (0.00-0.20); Basophils % (auto) 0.5 %; Eosinophils % (auto) 1.3 %; Hematocrit (blood only) 26.2 % (37.0-47.0); Hemoglobin 7.8 g/dl (12.0-16.0); Immature Granulocytes # (auto) 0.12 K/uL (0.01-0.20); Immature Granulocytes % (auto) 1.6 %; Lymphocytes # (auto) 1.46 K/uL (1.20-3.40); Lymphocytes % (auto) 19.5 %; Mean Corpuscular Hemoglobin 26.6 pg (25.0-34.0); Mean Corpuscular Hgb Conc 29.8 g/dL (32.0-36.0); Mean Corpuscular Volume 89.4 fL (80.0-100.0); Monocytes # (auto) 0.56 K/uL (0.11-0.59); Monocytes % (auto) 7.5 %; Neutrophils % (auto) 69.6 %; Platelet Count 166 K/uL (130-400); RDW Coefficient of Variation 15.4 % (11.5-14.5); RDW Standard Deviation 49.8 fL (36.4-46.3); Red Blood Count 2.93 M/uL (4.20-5.40); White Blood Count 7.48 K/ul (4.8-10.8)
[2023-05-08] MEDS: dilTIAZem HCL 180 MG CAPCR PO SCH (07:39)
[2023-05-08] MEDS: fluvoxaMINE MALEATE 50 MG TAB PO SCH (07:39)
[2023-05-08] MEDS: GENTAMICIN SULFATE 0.3% OP SOLN 5 ML BTL OP SCH ×4 (07:40→20:41)
[2023-05-08] MEDS: DOCUSATE SODIUM 100 MG CAP PO SCH ×2 (07:40→20:39)
[2023-05-08] MEDS: DICLOFENAC SOD 1% GEL 100 GM TUBE EXT SCH ×2 (07:40→21:46)
[2023-05-08] MEDS: POLYETHYLENE (MIRALAX) 17 GM PACK PO SCH ×3 (07:41→20:39)
[2023-05-08] MEDS: SENNOSIDES 8.8 MG/5 ML UDC PO SCH ×2 (07:41→20:39)
[2023-05-08] MEDS: PREGABALIN 50 MG CAP PO SCH (07:42)
[2023-05-08 07:49] LABS: BUN Creatinine Ratio 18.1 (10-20); Calcium 7.8 mg/dl (8.6-10.3); Creatinine Clr Calc Pharmacy 27.9 ml/min; Est GFR (African American) 21.2 ml/min; Est GFR (Non-African American) 18.3 ml/min; Potassium 4.4 mmol/L (3.5-5.1)
[2023-05-08] MEDS: INSULIN ASPART PER UNIT CHARGE SC SCH ×4 (08:16→21:35)
[2023-05-08 08:17] LABS: Hypochromasia Present; Ovalocytes 1+
[2023-05-08] MEDS: PATIROMER CALCIUM SORBITEX 8.4 GM PACK PO SCH (10:23)
[2023-05-08] MEDS: MoRPHine SULFATE 2 MG/ML CARP IV PRN (11:20)
--- NOTE | 2023-05-08 14:31 | Hospitalist Progress Note ---
Date of Service May 08, 2023 Assessment & Plan (1) Left displaced femoral neck fracture: Plan: Mechanical fall resulting in left displaced femoral neck fracture. S/P repair 04/09 with biploar hip replacement . Continue physical therapy while hospitalized. SNF placement pending. (2) Sacral decubitus ulcer: Plan: Stage IV sacral wound, present on admission She is now status post debridements on May 06 Pain control measures. Wound care consult appreciated. General surgery consultation and recommendations appreciated. She is now on Zosyn. Eliquis has been resumed. Patient will need wound VAC before discharge to SNF (3) Anemia: Plan: with acute blood loss anemia in setting of chronic anemia. Serial labs. Re ceived PRBC transfusion and Epogen this admission. Now stable. Fecal occult blood is negative. (4) Constipation: Plan: No evidence of obstruction on KUB. Now resolved after multiple laxatives, enemas, manual disimpaction. Continue senna, docusate, Miralax (5) Urinary retention: Plan: Giraldo removed 04/22 but subsequently required multiple straight caths afterwards. Giraldo placed again 04/23. Will maintain until more mobile per patient request (6) Type 2 diabetes mellitus: Plan: ADA diet. Sliding scale coverage as needed. Continue current medical management (7) Diastolic CHF: Plan: Chronic. Monitor intake and output. Bumex has been discontinued on May 04, due to low blood pressure. (8) Obsessive compulsive disorder: Plan: Stable. Continue fluvoxamine (9) Hypothyroidism: Plan: Stable. Continue thyroid replacement therapy (10) Chronic kidney disease, stage 4 (severe): Plan: Had PATY superimposed on CKD stage 4. Appreciate nephrology consultation and recommendations. Transient hyperkalemia was treated with patiromer. We will avoid SANDRA inhibitors or ARB's. Avoid spironolactone. Serial labs. Monitor intake and output. (11) Atrial flutter: Plan: History of atrial flutter. Diltiazem replaces metoprolol. Short acting diltiazem switched to long-acting formulation on May 05. Repeat EKG obtained and noted. Eliquis is on hold currently for upcoming decubitus ulcer debridement. Metoprolol has been discontinued. (12) Dizziness: Plan: patient got dizzy while participating in PT, said she got light headed Orthostatic blood pressure was significantly decreased Patient adviced to get up from a lying position in stages Plan Eventual discharge to SNF when arrangements are finalized. Hopefully to [facility] in [place] this week Admission and Anticipated Discharge Date Admission Date: April 08, 2023 Subjective Patient seen and examined today,participating in PT, but got dizzy Review of Systems Review of Systems: All systems reviewed are negative, apart from the ones contained in the history. Physical Exam Physical Exam: The patient is awake, alert and oriented 3, well developed and well nourished, normocephalic and atraumatic, lying in bed and in no acute distress. HEENT--PERRL, EOMI, mucous membranes and oropharynx mildly dry Neck--supple. No JVD. No bruits. Thyroid normal, trachea midline, no adenopathy. Heart--normal S1 and S2. No murmurs, rubs or gallops. Lungs--clear bilaterally, no respiratory distress, no accessory muscle use. Abdomen--normal bowel sounds and soft. Extremities--no cyanosis or clubbing. No edema. Dermatologic--normal skin turgor, normal color, no abnormal lymph nodes, no rash. Neurologic--cranial nerves II through XII grossly intact. Rheumatologic--normal range of motion. Psychiatric--normal affect. Results & Data Results & Data Vital Signs (Past 12 Hours) Vital Signs Temp Pulse Resp BP Pulse Ox O2 Del Method 05/08/23 10:18 93 05/08/23 07:23 97.7 F 104 H 16 123/83 94 Room Air PG Care Time/CCT Total # of Minutes Spent Total Time Spent with Patient: Total time spent is greater than 50% in coordination of care (as documented) at patient's floor/unit and/or counseling patient: Coding Level of Care Code 10157 SUB INP/OBS CARE 2/35MIN Diagnoses Left displaced femoral neck fracture S72.002A Sacral decubitus ulcer L89.159 Anemia D64.9 Constipation K59.00 Urinary retention R33.9 Type 2 diabetes mellitus with other specified complication, with long-term current 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 E11.69; Z79.4 Diabetes mellitus terminal worker 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
[2023-05-08] MEDS: traZODone HCL 50 MG TAB PO SCH (20:38)
[2023-05-08] MEDS: MELATONIN 3 MG TAB PO SCH (20:39)
[2023-05-08] MEDS: APIXABAN 5 MG TABLET PO SCH (20:39)
[2023-05-08] MEDS: LANTUS PER UNIT CHARGE SC SCH (21:34)
[2023-05-08] MEDS ORDERED: GLUCOSE 40% GEL 15 GM TUBE PO PRN (22:34)
[2023-05-08] MEDS ORDERED: GLUCOSE 10 TAB/TUBE PO PRN (22:34)
[2023-05-08] MEDS ORDERED: CARBOHYDRATES FOR HYPOGLYCEMIA PO PRN (22:34)
[2023-05-08] MEDS ORDERED: GLUCAGON FOR INJ 1 MG VIAL SQ PRN (22:34)
[2023-05-08] MEDS ORDERED: DEXTROSE 50% 50 ML SYRINGE IV PRN (22:34)
[2023-05-09] MEDS: PANTOprazole 40 MG TAB PO SCH ×2 (01:38→20:32)
[2023-05-09] MEDS: oxyCODONE HCL IR 5 MG TAB (IMMEDIATE RELEASE) PO PRN ×2 (04:01→13:08)
[2023-05-09] MEDS: PIPERACILLIN/TAZOBACTAM 4.5 GM in DEXTROSE 5% MINI-B 100 ML IV SCH ×3 (04:57→20:33)
[2023-05-09] MEDS: ACETAMINOPHEN 325 MG TAB PO PRN ×2 (06:02→11:51)
[2023-05-09 07:08] LABS: Basophils # (auto) 0.05 K/uL (0.00-0.20); Basophils % (auto) 0.7 %; Eosinophils # (auto) 0.12 K/uL (0.00-0.50); Eosinophils % (auto) 1.6 %; Hematocrit (blood only) 26.8 % (37.0-47.0); Hemoglobin 8.2 g/dl (12.0-16.0); Immature Granulocytes # (auto) 0.15 K/uL (0.01-0.20); Lymphocytes # (auto) 1.71 K/uL (1.20-3.40); Lymphocytes % (auto) 23.2 %; Mean Corpuscular Hemoglobin 26.9 pg (25.0-34.0); Mean Corpuscular Hgb Conc 30.6 g/dL (32.0-36.0); Mean Corpuscular Volume 87.9 fL (80.0-100.0); Monocytes % (auto) 6.8 %; Neutrophils # (auto) 4.84 K/uL (1.40-6.50); Neutrophils % (auto) 65.7 %; Platelet Count 174 K/uL (130-400); RDW Coefficient of Variation 15.3 % (11.5-14.5); RDW Standard Deviation 48.9 fL (36.4-46.3); Red Blood Count 3.05 M/uL (4.20-5.40); White Blood Count 7.37 K/ul (4.8-10.8)
[2023-05-09 07:22] LABS: BUN Creatinine Ratio 18.1 (10-20); Calcium 7.9 mg/dl (8.6-10.3); Creatinine Clr Calc Pharmacy 28.6 ml/min; Est GFR (African American) 21.8 ml/min; Est GFR (Non-African American) 18.8 ml/min; Potassium 4.3 mmol/L (3.5-5.1)
[2023-05-09] MEDS: LEVOTHYROXINE SODIUM 50 MCG TABLET PO SCH (07:31)
[2023-05-09] MEDS: fluvoxaMINE MALEATE 50 MG TAB PO SCH ×2 (08:40→20:32)
[2023-05-09] MEDS: DICLOFENAC SOD 1% GEL 100 GM TUBE EXT SCH ×2 (08:40→20:31)
[2023-05-09] MEDS: dilTIAZem HCL 180 MG CAPCR PO SCH (08:40)
[2023-05-09] MEDS: POLYETHYLENE (MIRALAX) 17 GM PACK PO SCH ×3 (08:40→20:32)
[2023-05-09] MEDS: APIXABAN 5 MG TABLET PO SCH ×2 (08:40→20:32)
[2023-05-09] MEDS: PREGABALIN 50 MG CAP PO SCH ×2 (08:40→21:25)
[2023-05-09] MEDS: DOCUSATE SODIUM 100 MG CAP PO SCH ×2 (08:40→20:31)
[2023-05-09] MEDS: SENNOSIDES 8.8 MG/5 ML UDC PO SCH ×2 (08:41→20:32)
[2023-05-09] MEDS: GENTAMICIN SULFATE 0.3% OP SOLN 5 ML BTL OP SCH ×5 (08:41→21:29)
[2023-05-09] MEDS: INSULIN ASPART PER UNIT CHARGE SC SCH ×4 (08:44→20:30)
--- NOTE | 2023-05-09 11:18 | Hospitalist Progress Note ---
Date of Service May 09, 2023 Assessment & Plan (1) Left displaced femoral neck fracture: Plan: Mechanical fall resulting in left displaced femoral neck fracture. S/P repair 04/09 with biploar hip replacement . Continue physical therapy while hospitalized. SNF placement pending. (2) Sacral decubitus ulcer: Plan: Stage IV sacral wound, present on admission She is now status post debridements on May 06 Pain control measures. Wound care consult appreciated. General surgery consultation and recommendations appreciated. She is now on Zosyn. Eliquis has been resumed. Patient will need wound VAC before discharge to SNF (3) Physical deconditioning: Plan: Patient has been in the hospital for 31 days, she is physically deconditioned Participating in physical therapy but really struggling Will benefit from rehab. (4) Anemia: Plan: with acute blood loss anemia in setting of chronic anemia. Serial labs. Received PRBC transfusion and Epogen this admission. Now stable. Fecal occult blood is negative. (5) Constipation: Plan: No evidence of obstruction on KUB. Now resolved after multiple laxatives, enemas, manual disimpaction. Continue senna, docusate, Miralax (6) Urinary retention: Plan: Giraldo removed 04/22 but subsequently required multiple straight caths afterwards. Giraldo placed again 04/23. Will maintain until more mobile per patient request (7) Type 2 diabetes mellitus: Plan: ADA diet. Sliding scale coverage as needed. Continue current medical management (8) Diastolic CHF: Plan: Chronic. Monitor intake and output. Bumex has been discontinued on May 04, due to low blood pressure. (9) Obsessive compulsive disorder: Plan: Stable. Continue fluvoxamine (10) Hypothyroidism: Plan: Stable. Continue thyroid replacement therapy (11) Chronic kidney disease, stage 4 (severe): Plan: Had PATY superimposed on CKD stage 4. Appreciate nephrology consultation and recommendations. Transient hyperkalemia was treated with patiromer. We will avoid SANDRA inhibitors or ARB's. Avoid spironolactone. Serial labs. Monitor intake and output. (12) Atrial flutter: Plan: History of atrial flutter. Diltiazem replaces metoprolol. Short acting diltiazem switched to long-acting formulation on May 05. Repeat EKG obtained and noted. Eliquis is on hold currently for upcoming decubitus ulcer debridement. Metoprolol has been discontinued. (13) Dizziness: Plan: patient got dizzy while participating in PT, said she got light headed Orthostatic blood pressure was significantly decreased Patient adviced to get up from a lying position in stages Plan Eventual discharge to SNF when arrangements are finalized. Hopefully to [facility] in [place] this week Admission and Anticipated Discharge Date Admission Date: April 08, 2023 Subjective Patient seen and examined today,participating in PT, no new complaints today, was worried whether there is going to be capable hands to monitor and manage her wound VAC in rehab Review of Systems Review of Systems: All systems reviewed are negative, apart from the ones contained in the history. Physical Exam Physical Exam: The patient is awake, alert and oriented 3, well developed and well nourished, normocephalic and atraumatic, lying in bed and in no acute distress. HEENT--PERRL, EOMI, mucous membranes and oropharynx mildly dry Neck--supple. No JVD. No bruits. Thyroid normal, trachea midline, no adenopathy. Heart--normal S1 and S2. No murmurs, rubs or gallops. Lungs--clear bilaterally, no respiratory distress, no accessory muscle use. Abdomen--normal bowel sounds and soft. Extremities--no cyanosis or clubbing. No edema. Dermatologic--normal skin turgor, normal color, no abnormal lymph nodes, no rash. Neurologic--cranial nerves II through XII grossly intact. Rheumatologic--normal range of motion. Psychiatric--normal affect. Results & Data Results & Data Vital Signs (Past 12 Hours) Vital Signs Temp Pulse Resp BP Pulse Ox O2 Del Method 05/09/23 07:30 97.5 F L 62 16 143/82 H 93 Room Air PG Care Time/CCT Total # of Minutes Spent Total Time Spent with Patient: Total time spent is greater than 50% in coordination of care (as documented) at patient's floor/unit and/or counseling patient: Coding Level of Care Code 35630 SUB INP/OBS CARE 2/35MIN Diagnoses Left displaced femoral neck fracture S72.002A Sacral decubitus ulcer L89.159 Physical deconditioning R53.81 Anemia D64.9 Constipation K59.00 Urinary retention R33.9 Type 2 diabetes mellitus with other specified complication, with long-term current 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 E11.69; Z79.4 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
[2023-05-09] MEDS: PATIROMER CALCIUM SORBITEX 8.4 GM PACK PO SCH ×2 (11:52→11:54)
[2023-05-09] MEDS: LORazepam 1 MG TAB PO PRN (16:34)
[2023-05-09] MEDS: LANTUS PER UNIT CHARGE SC SCH (20:30)
[2023-05-09] MEDS: MELATONIN 3 MG TAB PO SCH (20:32)
[2023-05-09] MEDS ORDERED: ATORVASTATIN 40 MG TAB PO SCH (21:00)
[2023-05-09] MEDS ORDERED: traZODone HCL 50 MG TAB PO SCH (21:00)
[2023-05-10] MEDS: LEVOTHYROXINE SODIUM 50 MCG TABLET PO SCH (05:36)
[2023-05-10] MEDS: PIPERACILLIN/TAZOBACTAM 4.5 GM in DEXTROSE 5% MINI-B 100 ML IV SCH (05:37)
[2023-05-10 08:06] LABS: BUN Creatinine Ratio 16.7 (10-20); Est GFR (African American) 21.3 ml/min; Est GFR (Non-African American) 18.4 ml/min; Potassium 4.7 mmol/L (3.5-5.1)
[2023-05-10] MEDS: INSULIN ASPART PER UNIT CHARGE SC SCH ×2 (08:27→12:32)
[2023-05-10] MEDS: fluvoxaMINE MALEATE 50 MG TAB PO SCH (08:29)
[2023-05-10] MEDS: dilTIAZem HCL 180 MG CAPCR PO SCH (08:29)
[2023-05-10] MEDS: APIXABAN 5 MG TABLET PO SCH (08:30)
[2023-05-10] MEDS: GENTAMICIN SULFATE 0.3% OP SOLN 5 ML BTL OP SCH (08:30)
[2023-05-10] MEDS: PREGABALIN 50 MG CAP PO SCH (08:33)
[2023-05-10] MEDS: POLYETHYLENE (MIRALAX) 17 GM PACK PO SCH (08:36)
[2023-05-10] MEDS: DOCUSATE SODIUM 100 MG CAP PO SCH (08:36)
[2023-05-10] MEDS: SENNOSIDES 8.8 MG/5 ML UDC PO SCH (08:36)
[2023-05-10] MEDS: DICLOFENAC SOD 1% GEL 100 GM TUBE EXT SCH (08:36)
[2023-05-10] MEDS: oxyCODONE HCL IR 5 MG TAB (IMMEDIATE RELEASE) PO PRN (10:04)
[2023-05-10] MEDS: PATIROMER CALCIUM SORBITEX 8.4 GM PACK PO SCH (10:06)
--- NOTE | 2023-05-10 10:47 | Discharge Summary ---
Date of Service May 10, 2023 Admission HPI Per Admitting Provider This 62 yo femalepast medical history including atrial fibrillation, long-term use of anticoagulants, diabetes, gastric bypass, diabetic neuropathy, and chronic kidney diseasepresented to the ED after sustaining a mechanical fall. Patient reports that she was going to get up to the bathroom, but she tripped over a chair and fell. Patient reports that she did not pass out. She denies any palpitations, dizziness, nausea vomiting. Patient reports having severe left hip pain which prompted her to come to the ED. Patient reports she had a similar episode when she injured her contralateral leg. Principal Diagnosis femoral fracture, sacral wound Discharge Exam The patient is awake, alert and oriented 3, well developed and well nourished, normocephalic and atraumatic, lying in bed and in no acute distress. HEENT--PERRL, EOMI, mucous membranes and oropharynx mildly dry Neck--supple. No JVD. No bruits. Thyroid normal, trachea midline, no adenopathy. Heart--normal S1 and S2. No murmurs, rubs or gallops. Lungs--clear bilaterally, no respiratory distress, no accessory muscle use. Abdomen--normal bowel sounds and soft. Extremities--no cyanosis or clubbing. No edema. Dermatologic--normal skin turgor, normal color, no abnormal lymph nodes, no rash. Neurologic--cranial nerves II through XII grossly intact. Rheumatologic--normal range of motion. Psychiatric--normal affect. Discharge Data Allergies Allergy/AdvReac Type Severity Reaction Status Date / Time promethazine Allergy Intermediate BROKEN Verified 04/08/23 08:17 CAPILLARIES FACE Iodinated Contrast Media Allergy Unknown Unknown Verified 04/08/23 08:17 [Iodinated Contrast- Oral and IV Dye] Consultations 04/08/23 07:11 ED Decision to Admit Stat 04/08/23 12:54 Consult Orthopedic Surgery Stat 04/12/23 10:57 Consult Nephrology Routine 05/02/23 16:59 Consult General Surgery Routine Procedures Performed Operation Date: 05/06/23 12:40 Actual Procedures p Incision and Drainage, Debridement Sacral Wound - Yasmany Langley DO Ordered Studies 04/08/23 03:06 CT head/brain wo con Stat CT hip LT wo con Stat Hospital Course (1) Left displaced femoral neck fracture: Mechanical fall resulting in left displaced femoral neck fracture. S/P repair 04/09 with biploar hip replacement . Continue physical therapy while hospitalized. SNF placement pending. (2) Sacral decubitus ulcer: Stage IV sacral wound, present on admission She is now status post debridements on May 06 Pain control measures. Wound care consult appreciated. General surgery consultation and recommendations appreciated. She is now on Zosyn. Eliquis has been resumed. Patient will need wound VAC before discharge to SNF (3) Physical deconditioning: Patient has been in the hospital for 31 days, she is physically deconditioned Participating in physical therapy but really struggling Will benefit from rehab. (4) Anemia: with acute blood loss anemia in setting of chronic anemia. Serial labs. Received PRBC transfusion and Epogen this admission. Now stable. Fecal occult blood is negative. (5) Constipation: No evidence of obstruction on KUB. Now resolved after multiple laxatives, enemas, manual disimpaction. Continue senna, docusate, Miralax (6) Urinary retention: Giraldo removed 04/22 but subsequently required multiple straight caths afterwards. Giraldo placed again 04/23. Will maintain until more mobile per patient request (7) Type 2 diabetes mellitus: ADA diet. Sliding scale coverage as needed. Continue current medical management (8) Diastolic CHF: Chronic. Monitor intake and output. Bumex has been discontinued on May 04, due to low blood pressure. (9) Obsessive compulsive disorder: Stable. Continue fluvoxamine (10) Hypothyroidism: Stable. Continue thyroid replacement therapy (11) Chronic kidney disease, stage 4 (severe): Had PATY superimposed on CKD stage 4. Appreciate nephrology consultation and recommendations. Transient hyperkalemia was treated with patiromer. We will avoid SANDRA inhibitors or ARB's. Avoid spironolactone. Serial labs. Monitor intake and output. (12) Atrial flutter: History of atrial flutter. Diltiazem replaces metoprolol. Short acting diltiazem switched to long-acting formulation on May 05. Repeat EKG obtained and noted. Eliquis is on hold currently for upcoming decubitus ulcer debridement. Metoprolol has been discontinued. (13) Dizziness: patient got dizzy while participating in PT, said she got light headed Orthostatic blood pressure was significantly decreased Patient adviced to get up from a lying position in stages Plan Eventual discharge to SNF when arrangements are finalized. Hopefully to [facility] in [place] this week Total Time Total Time Spent Total Time Spent (In Minutes): 35 Discharge Plan Discharge Items Patient Disposition: Transfer Correction Fac Reason For Visit: HIP FRACTURE Discharge Diagnosis: Left Hip Arthroplasty for Fracture Activity: Per Instructions section Activity Comment: Follow/Obey hip precautions at all times. Weightbearing: Full weightbearing Weightbearing Comment: Weightbear as tolerated obeying hip precautions at all times. Non-emergency contact: Primary Care Provider Call non-emergency contact if: you have any medication questions Follow-up/Referrals: William Lewis MD [Primary Care Provider] - Eric Childress MD [Physician] - (Orthopedic follow-up 2-3 weeks from surgery date.) Diet: Regular Addtl Attending Provider Instructions: ACTIVITY RECOMMENDATIONS: Physical Therapy: * Aggressive physical therapy is not usually needed. You will learn to take care of yourself safely and walk. * Follow the "Hip Precautions Instructions." * In some cases, the social worker aide at the hospital will arrange to have a therapist come to your house for the first couple of weeks to help you learn these skills. * You need to practice on your own or with the help of a family member as needed. * When you learn these skills, most of the therapy can be done on your own. Home Exercise: * You were shown a series of exercises in the hospital. Do these exercises three to four times each day including the exercises you were shown in physical therapy. Walking: * Get up and walk several times each day. For the first four weeks, try not to stand or walk for more than one hour at a time. If you do stand or walk for more than one hour, you will not hurt anything, but your leg will likely swell. * As you feel comfortable, you may change from the walker or crutches to a cane and then to independent walking. MEDICATIONS: New Medicine: * You will likely be taking one or more of these medicines: 1. Tramadol - Take, as directed, when you need it, every six hours to control your pain. 2. Eliquis - Thins your blood to lessen the chance of forming a blood clot. * The most common side effects of pain medicine and iron are nausea and constipation. If nausea or constipation is too much of a problem or if you have any questions about your new medicines or doses, call [facility] at [phone]. We will try to help you manage these issues. "VERY IMPORTANT TO READ AND REVIEW" Pain: * The immediate post-operative period after hip replacement surgery is often quite painful. * You are given a prescription for pain medicine. You should take it, as di rected, when you need it, especially before physical therapy and before going to bed. Pain that interferes with sleep is very common and can last several months. * You will likely need pain medicine for the first two to four weeks. It will not stop all of the pain. The pain will lessen and as you feel better, you may change to milder pain medicine such as Tylenol. * The most common side effects of pain medicine are nausea and constipation, so don't take more than you need. SPECIAL CARE INSTRUCTIONS: TEDs/Elastic Stockings: * The white elastic stockings help limit swelling and prevent blood clots from forming in your legs. The more you wear them, the more they work. * Wear them for six weeks. Incision Site Care: * Remove dressing postoperative day 2 and then shower. Keep direct shower pressure off the incision site. * After showering, cover kari with dry gauze and change daily or more frequently if the dressing is getting saturated with drainage. * May completely stop using bandage if wound is dry and no drainage * Steep Falls are removed between 2 and 3 weeks post-op. If your follow-up appointment is made before 2 weeks, please have your appointment re- scheduled. It is too early to remove the kari. Prevention of Infection: * Take antibiotics one hour before any dental cleaning, dental work, urological procedure, gastrointestinal procedure or any invasive surgery in order to prevent your new joint from getting infected. * You may get the antibiotics from the doctor performing the procedure or you may call our office at before and we will call in a prescription to the pharmacy of your choice. Things to Watch For: * Drainage from the incision site that occurs more than one week after your surgery. * Severely increased leg pain or swelling. * Increased redness at the incision site. * Fever above 102 degrees Fahrenheit. * Unusual chest pain or shortness of breath. * Unusual pain or burning with urination. Call [facility] at with any of the above problems or if you have any questions about your medicines or recovery. FOLLOW UP VISIT: Make an appointment to see your doctor for approximately two weeks after surgery for a progress check and staple removal by calling the office at . Pending Studies at Discharge: No Stand-Alone Forms: My [facility] Skilled Items Patient informed of condition?: Yes DNR: No Discharge Level of Care: Skilled Communicable Disease: No Discharge Prognosis: Improving Lines: None Urinary Catheter: Yes Medications and DC Order Prescriptions: New diltiazem HCl 180 mg Capsule,Extended Release 24hr 180 mg PO QAM 30 Days Qty: 30 0RF amoxicillin-pot clavulanate [Augmentin] 500-125 mg tablet 1 tab PO BID 10 Days Qty: 20 0RF Continued (DME) lancets [OneTouch UltraSoft Lancets] Misc See Rx Instructions .ROUTE .MEDSUPPLY Qty: 400 3RF Rx Instructions: test blood sugar 4 x daily (DME) blood sugar diagnostic Strip See Dose Instructions .ROUTE .MEDSUPPLY Qty: 300 3RF Dose Instruction: As directed Rx Instructions: test blood sugar 3 x daily. OneTouch ultra blue test strips. ondansetron 4 mg tablet,disintegrating 4 mg PO Q8H PRN (Reason: nausea and vomiting) Qty: 14 0RF atorvastatin 80 mg tablet 80 mg PO HS Qty: 90 3RF Eliquis 5 mg tablet 5 mg PO BID Qty: 180 3RF fenofibrate 160 mg tablet 160 mg PO QAM Qty: 90 3RF levothyroxine 50 mcg tablet 50 mcg PO DAILYBB Qty: 90 1RF Rx Instructions: take with 8 oz of water pantoprazole 40 mg tablet,delayed release (DR/EC) 40 mg PO HS Qty: 90 3RF insulin lispro 100 unit/mL solution See Rx Instructions SQ TIDM Qty: 10 5RF Rx Instructions: 5-8 units with sliding scale TDD30 units subcutaneously three times daily with meals; (DME) insulin syringe-needle U-100 [Easy Comfort Insulin Syringe] 0.5 mL 31 gauge x 5/16" syringe See Rx Instructions .ROUTE .MEDSUPPLY Qty: 400 3RF Rx Instructions: Use four times a day with insulin injection insulin glargine [Lantus U-100 Insulin] 100 unit/mL solution See Rx Instructions subcut QPM Qty: 10 5RF Rx Instructions: inject 4-6 units subcutaneously daily in the evening; folic acid 1 mg tablet 1 mg PO QAM Qty: 90 3RF pregabalin [Lyrica] 50 mg capsule 50 mg PO TID Qty: 90 5RF trazodone 100 mg tablet 150 mg PO HS hydrocodone-acetaminophen 5-325 mg tablet 1 tab PO Q8H PRN (Reason: pain) Qty: 15 0RF omega-3 fatty acids 1,000 mg capsule 1,000 mg PO QAM multivitamin [Daily Multi-Vitamin] Tablet 1 tab PO QAM Patient Comments: "sometime during the day" buspirone 15 mg tablet 15 mg PO BID cyanocobalamin (vitamin B-12) 2,500 mcg tablet 2,500 mcg PO 2XWK Rx Instructions: T and TH only Retacrit 40,000 unit/mL solution 40,000 unit subcut UD 15 Days Qty: 15 6RF Rx Instructions: Twice a month, hold for Hb 11 or higher nystatin 100,000 unit/gram powder 1 applic topical BID Qty: 60 3RF Retacrit 10,000 unit/mL solution 10,000 unit subcut ONCE Qty: 1 0RF zinc gluconate 100 mg Tablet 100 mg PO HS lorazepam [Ativan] 1 mg tablet 1 mg PO BID PRN (Reason: anxiety) polysaccharide iron complex [Ferrex 150] 150 mg iron Capsule 150 mg PO HS ascorbic acid (vitamin C) [Vitamin C] 500 mg Tablet,Chewable 1,000 mg PO QAM Patient Comments: "sometime during the day" ergocalciferol (vitamin D2) [Vitamin D2] 1,250 mcg (50,000 unit) Capsule 1,250 mcg PO WK Rx Instructions: Saturday biotin 500 mcg Capsule 1,000 mcg PO QAM Probiotic Blend 2 billion cell-50 mg Capsule 2 cap PO QAM Rx Instructions: give with meal/snack Elderberry 250 mg PO QAM Patient Comments: "sometime during the day" amlodipine [Norvasc] 10 mg tablet 5 mg PO QAM baclofen 5 mg tablet 5 mg PO TID PRN (Reason: Muscle Spasm) acetaminophen 325 mg Tablet 650 mg PO Q4H PRN (Reason: fever) Qty: 14 0RF fluvoxamine 100 mg Tablet 150 mg PO BID prednisone 10 mg tablet See Rx Instructions .ROUTE .COMPLEX Taper: Taper, Blank 40 mg DAILY for 3 Days 30 mg DAILY for 3 Days 20 mg DAILY for 3 Days 10 mg DAILY for 3 Days Rx Instructions: Start Date 03/26/23 - End Date 04/07/23: Pt doesn't remember if she's been taking the prednisone as directed and if truly on the last day or not. See Taper below Held bumetanide 2 mg tablet 2 mg PO QAM Hold Instructions: Resume on 05/24/23. Discontinued metoprolol succinate 25 mg tablet extended release 24 hr 25 mg PO DAILY amoxicillin 500 mg tablet 2,000 mg PO ONCE PRN (Reason: Prophylaxis) Rx Instructions: 4 tabs 1 hour prior to procedure Discharge Orders: Discharge Order (Routine); Ordered 05/10/23 Ordered By: Samm Reese/Other Patient Handouts: Hip Precautions Admission Data Admit Date/Time: 04/08/23 07:48 Attending Provider: Samm Walker Admit Provider: Tushar Collier Primary Care Provider: William Lewis V. Other Providers: [facility]; [place]; Tushar Collier; Rodolfo Martínez; Rikki Kang [place]; Gerald Chamberlain; Heriberto Bourgeois; George Stallings; Nima Case; Yudy Rosa; Medhat Hall; Ti Scott; Yasmany Langley; Dillan Ocampo Other Interventions: Discharge Summary Assessment (RN) Last Done: 05/10/23 10:25 Coding Level of Care Code 33583 INP/OBS DISCH >30 MIN Diagnoses Left displaced femoral neck fracture S72.002A Sacral decubitus ulcer L89.159 Physical deconditioning R53.81 Anemia D64.9 Constipation K59.00 Urinary retention R33.9 Type 2 diabetes mellitus with other specified complication, with long-term current 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 E11.69; Z79.4 Diabetes mellitus skilled nursing insulin use: with termite technician use Diabetes mellitus complication status: with other specified complication Diastolic CHF I50.30 Obsessive compulsive disorder F42.9 Hypothyroidism E03.9 Chronic kidney disease, stage 4 (severe) N18.4 Atrial flutter I48.92 Dizziness R42 Time Spent (min) 35
[2023-05-10] MEDS: MoRPHine SULFATE 2 MG/ML CARP IV PRN (11:23)
--- NOTE | 2023-05-14 07:20 | Coding Query ---
DEBRIDEMENT DOCUMENTATION To promote full compliance with coding requirements relating to patient care, physician participation is requested in all cases of auditing coder uncertainty. Please assist us with the question(s) below: Please place an X in the parenthesis (x). If other, please document the finding: Type of Debridement: (x ) Excisional Debridement- Cutting away necrotic, devitalized tissue or slough to the level of viable tissue using a sharp instrument (i.e. scalpel, scissors, etc.) ( ) Non Excisional Debridement- The removal of necrotic, devitalized tissue or slough by means of scraping, mechanical brushing, flushing, or washing (i.e. irrigation,whirlpool);minor removal of loose fragments. ( ) Other (please specify): Instrument Used: (x) Scissors (x ) Scalpel ( ) Curette ( ) Other (please specify): Depth of Debridement: ( ) Skin ( ) Skin and Subcutaneous Tissue (x ) Skin, Subcutaneous Tissue and Muscle ( ) Skin, Subcutaneous Tissue, Muscle and Bone ( ) Other (please specify): Please Specify the Size of Debridement in cm: 6 [address] [facility]
== END 2023-05-10 13:32 | DRG 463 ==
LOC: ED 02:52 → EDINP 07:48 → SUATTDRO 07:48 → 3N 10:04

== ENCOUNTER 2023-07-29 16:01 | Inpatient (IN) ==
--- NOTE | 2023-07-29 16:57 | XRay Report ---
SINGLE VIEW CHEST CLINICAL HISTORY: Sepsis FINDINGS: 2 AP, portable, semierect chest radiographs are compared to study dated 04/09/2023. Correla tion is made with chest CT dated 12/30/2017. The examination is degraded by portable technique and api zuri lordotic positioning. The heart is enlarged and noting atherosclerotic calcification of the thora cic aorta. The pulmonary vasculature is noncongested. Chronic interstitial thickening is similar to p revious. There is bibasilar scarring/atelectasis. No airspace consolidation or large pleural effusion is identified. No pneumothorax is seen. The skeletal structures are osteopenic. The bony thorax is g rossly intact. A left shoulder arthroplasty is in place. IMPRESSION: Cardiomegaly with no active disease in the chest. ACT 112: Negative or not required by law. Electronically signed by: Bryn Jose M.D. 07/29/2023 4:55 PM
--- NOTE | 2023-07-29 17:53 | CT Scan Report ---
CT SCAN OF THE BRAIN WITHOUT IV CONTRAST CLINICAL HISTORY: Generalized weakness. COMPARISON STUDY: CT of the brain dated 04/08/2023. TECHNIQUE: Unenhanced axial CT scan of the brain is performed from the vertex to the skull base. A d ose lowering technique was utilized adhering to the principles of ALARA. CT DOSE: 625.8 mGy.cm FINDINGS: Brain parenchyma: There is mild microangiopathic change. There is no hemorrhage, mass effect, or evid ence of acute territorial ischemia by CT criteria. Hernandez-white matter differentiation is preserved. No extra-axial fluid collection is seen. Ventricles, sulci, cisterns: Normal in configuration. Intracranial vasculature: There is atherosclerotic calcification of the cavernous carotid and vertebr al arteries. Calvarium: Unremarkable. Sinuses and mastoids: There is fluid within the right sphenoid sinus. The remaining visualized parana marion sinuses are clear. Postoperative changes partially visualized in the right maxilla. The mastoid a ir cells are well pneumatized. Orbits: The bony orbits are grossly intact. There are bilateral ocular lens implants. IMPRESSION: There is no hemorrhage, mass effect, or evidence of acute territorial ischemia by CT adrian cerda. ACT 112: Negative or not required by law. Electronically signed by: Bryn Jose M.D. 07/29/2023 5:51 PM
[2023-07-29 18:19] LABS: Base Excess VBG 3.5 mEq/L; HCO3 VBG 28 mmol/L; PCO2 VBG 40 mmHg (38-50); PO2 VBG 86 mmHg; pH VBG 7.45 (7.36-7.41)
[2023-07-29 18:34] LABS: Basophils # (auto) 0.03 K/uL (0.00-0.20); Basophils % (auto) 0.5 %; Eosinophils # (auto) 0.01 K/uL (0.00-0.50); Eosinophils % (auto) 0.2 %; Hematocrit (blood only) 37.1 % (37.0-47.0); Immature Granulocytes # (auto) 0.04 K/uL (0.01-0.20); Immature Granulocytes % (auto) 0.7 %; Lymphocytes # (auto) 1.08 K/uL (1.20-3.40); Lymphocytes % (auto) 17.9 %; Mean Corpuscular Hemoglobin 26.5 pg (25.0-34.0); Mean Corpuscular Hgb Conc 32.3 g/dL (32.0-36.0); Mean Corpuscular Volume 81.9 fL (80.0-100.0); Mean Platelet Volume 11.2 fL (9.4-12.4); Monocytes # (auto) 0.36 K/uL (0.11-0.59); Neutrophils % (auto) 74.7 %; Platelet Count 163 K/uL (130-400); RDW Coefficient of Variation 15.3 % (11.5-14.5); RDW Standard Deviation 45.7 fL (36.4-46.3); Red Blood Count 4.53 M/uL (4.20-5.40); White Blood Count 6.02 K/ul (4.8-10.8)
--- NOTE | 2023-07-29 18:39 | Emergency Department Note ---
History of Present Illness General Chief complaint: Weakness Stated complaint: A-FIB, WEAKNESS X 1WK Time Seen by Provider: 07/29/23 16:12 History of Present Illness Provider complaint: Weakness Maximum Pain Intensity: 6 62-year-old female presents emergency department for weakness. Patient reports that she has been feeling weak ever since she was discharged from a rehab facility 1 week ago. Patient states she was very unhappy with her rehab facility stating they discharged her when she was too weak because she did not have insurance. She states that they discharged her in a wheelchair. She denies any recent falls or traumas. She denies any chest pain or difficulty breathing. Denies any hematuria dysuria. No melena hematochezia. Patient states she is too weak to walk. Patient is on Eliquis. Home Medications Medication Instructions Recorded Confirmed Type lorazepam 1 mg tablet (Ativan) 1 mg PO BID PRN anxiety 03/24/19 07/29/23 History buspirone 15 mg tablet 15 mg PO BID 11/28/20 07/29/23 History lancets (OneTouch UltraSoft #400 ea 04/12/21 07/24/23 Rx Lancets) trazodone 100 mg tablet 100 mg PO HS 07/09/22 07/29/23 History cyanocobalamin (vitamin B-12) 2,500 mcg PO 2XWK 10/08/22 07/29/23 History 2,500 mcg tablet blood sugar diagnostic #300 ea 12/10/22 07/24/23 Rx amlodipine 10 mg tablet (Norvasc) 5 mg PO QAM 12/20/22 07/29/23 History ondansetron 4 mg disintegrating 4 mg PO Q8H PRN nausea and 12/21/22 07/29/23 Rx tablet vomiting #14 tabs atorvastatin 80 mg tablet 80 mg PO HS #90 tabs 12/24/22 07/29/23 Rx levothyroxine 50 mcg tablet 50 mcg PO DAILYBB #90 tabs 01/23/23 07/29/23 Rx insulin syringe-needle U-100 0.5 #400 ea 02/05/23 07/24/23 Rx mL 31 gauge x 5/16" (Easy Comfort Insulin Syringe) folic acid 1 mg tablet 1 mg PO QAM #90 tabs 02/22/23 07/29/23 Rx fluvoxamine 100 mg tablet 150 mg PO BID 04/08/23 07/29/23 History epoetin fernando-epbx 40,000 unit/mL 40,000 unit subcut UD 28 days #28 07/01/23 07/29/23 Rx injection solution (Retacrit) mL diltiazem HCl 180 mg 180 mg PO DAILY 07/04/23 07/29/23 History tablet,extended release 24 hr docusate sodium 100 mg capsule 100 mg PO BID PRN Constipation 07/04/23 07/29/23 History (Colace) fenofibrate 160 mg tablet 160 mg PO QAM 07/04/23 07/29/23 History pregabalin 75 mg capsule (Lyrica) 75 mg PO BID 07/04/23 07/29/23 History pantoprazole 40 mg tablet,delayed 40 mg PO BID #60 tabs 07/09/23 07/29/23 Rx release sucralfate 100 mg/mL oral 10 ml PO QID 14 days #560 mL 07/19/23 07/29/23 Rx suspension (Carafate) bumetanide 2 mg tablet 2 mg PO QAM 07/24/23 07/29/23 History ergocalciferol (vitamin D2) 1,250 50,000 unit PO WK 07/24/23 07/29/23 History mcg (50,000 unit) capsule (Vitamin D2) nystatin 100,000 unit/gram topical 1 applic topical DAILY PRN skin 07/24/23 07/29/23 Rx powder irritation #60 grams oxycodone 5 mg tablet 5 mg PO Q6H PRN pain #40 tabs 07/24/23 07/29/23 Rx metoprolol succinate 25 mg 25 mg PO DAILY #90 tabs 07/26/23 07/29/23 Rx tablet,extended release 24 hr baclofen 10 mg tablet 5 mg PO Q8H PRN MUSCLE SPASMS 07/29/23 07/29/23 History insulin lispro 100 unit/mL 5 - 8 unit subcut TIDM 07/29/23 07/29/23 History subcutaneous solution multivitamin with iron-mineral 1 tab PO DAILY 07/29/23 07/29/23 History Allergies Allergy/AdvReac Type Severity Reaction Status Date / Time Iodinated Contrast Media Allergy Unknown Unknown Verified 07/29/23 16:37 [Iodinated Contrast- Oral and IV Dye] promethazine AdvReac Intermediate BROKEN Verified 07/29/23 16:37 CAPILLARIES FACE Past Med/Surg History Medical History Retention of urine, unspecified Pressure ulcer of sacral region, stage 4 Obsessive compulsive disorder Muscle wasting and atrophy, not elsewhere classified, other site Acute kidney injury Swelling of right upper extremity Atrial flutter History of partial replacement of left hip joint using bipolar prosthesis (04/09/23) History of COVID-2019--mild symptoms, no symptoms now On home oxygen therapy 2L n/c prn sob Vitamin D deficiency Fluid retention Right sided sciatica Pneumonia hx of, not recently AV fistula September 07, 2020 > right wrist > not on dialysis at present Atrial fibrillation and flutter Dizziness Generalized weakness Syncope PAF (paroxysmal atrial fibrillation) Atrial fibrillation, new onset dx August 2020> cardioversions x2. on eliquis > follows Dr. Fontaine Cardiac murmur Mild TR noted on 2019 echo. 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 [place] [facility], "fairly stable from a pulmonary perspective. She is short of breath with any exertion, however a large part of this is likely related to obesity. Pulmonary functions done 1 year ago showed only a mild restrictive pattern. Diffusion was slightly decreased to 66%. One year ago she did have a normal arterial blood gas with no evidence of CO2 retention." Using PRN 3L, mostly using with exertion, not using every day. Diastolic congestive heart failure Euvolemic on exam at [facility] 09/02/20. follows with Dr. Fontaine Diabetic retinopathy, nonproliferative Diabetic peripheral neuropathy Claustrophobia Chronic rhinitis Arthralgia of multiple sites Anxiety and depression Chronic low back pain Hypothyroidism Hyperlipemia Hypertension Diabetes IDDM Surgical History History of incision and drainage (05/06/23) Incision and Drainage, Debridement Sacral Wound - Yasmany Langley DO History of bilateral cataract extraction History of cardioversion x2 Status post gastric bypass for obesity 09/14/2020- Dr. Ash- [facility] History of arthroscopy x2 left shoulder History of total shoulder replacement LEFT 07/19 2015 fracture History of esophagogastroduodenoscopy (EGD) History of colonoscopy History of dermoid cyst excision S/P tooth extraction History of mandibular surgery FULL ROM H/O section x1 Hx of cholecystectomy Family History Daughter Multiple allergies Bipolar disorder Aunt Breast cancer Mother Diabetes Heart disease Hyperthyroidism Hypertension Father Gastric cancer Hearing loss Myocardial infarction Grandfather Heart disease Family/Other Osteoporosis Lung cancer Hypertension Stroke Brother Hypertension Grandmother Ovarian cancer Sister Diabetes Migraine Other No family history of adverse response to anesthesia Denies family history of Prostate cancer Colorectal cancer Uterine cancer Social History Smoking Status: Never smoker Second Hand Exposure: No; Do You Dip or Chew Tobacco: No; Hx Alcohol Use: No (Unknown - Resident of [facility]) Hx Substance Use: No (Unknown - Resident of [facility]) Preferred Language: [place]i Communication Ability: Effective Visual Impairment: No Limitations [employer] Driver Required: No Beliefs That Will Affect Care: None marital status: Current Living Situation: [facility] Current Living Situation Comment: Resident of [facility] current occupational status: employed and unemployed Feels Safe at Home: Yes Childhood Exposure to Second-Hand Smoke: Yes Dental Care, Regularly: Yes Physical Activity Frequency: Does not Exercise Seatbelt Use: always Sunscreen Use: Yes Physical Exam Vital Signs Vital Signs - 24 hr 07/29/23 16:23 07/29/23 16:45 07/29/23 16:45 Temperature 37.1 C Temperature Source Oral Pulse Rate 87 104 H 104 H Pulse Rate [Right Finger] Pulse Rhythm Regular Regular Pulse Rhythm [Right Finger] Pulse Strength Normal Pulse Strength [Right Finger] Respiratory Rate 15 15 Respiratory Effort / Characteristics Non-Labored Spontaneous Respiratory Depth Normal Respiratory Pattern Regular Blood Pressure 160/94 H Blood Pressure [Left Arm] Blood Pressure Mean 116 Blood Pressure Mean [Left Arm] Blood Pressure Position Semi-fowlers Blood Pressure Position [Left Arm] Pulse Oximetry 98 98 Oxygen Delivery Method Room Air Room Air Sepsis Recent Fever Within 48 Hours No Sepsis New/Unexplained Change in Mental Status No Sepsis Action Taken by Nursing No Action Required 07/29/23 16:45 07/29/23 16:45 07/29/23 19:00 Temperature 37.1 C Temperature Source Oral Pulse Rate Pulse Rate [Right Finger] 104 H 88 Pulse Rhythm Pulse Rhythm [Right Finger] Regular Pulse Strength Pulse Strength [Right Finger] Normal Respiratory Rate 15 Respiratory Effort / Characteristics Non-Labored Spontaneous Respiratory Depth Normal Respiratory Pattern Regular Blood Pressure Blood Pressure [Left Arm] 160/94 H Blood Pressure Mean Blood Pressure Mean [Left Arm] 116 Blood Pressure Position Blood Pressure Position [Left Arm] Semi-fowlers Pulse Oximetry 98 Oxygen Delivery Method Room Air Room Air Sepsis Recent Fever Within 48 Hours Sepsis New/Unexplained Change in Mental Status Sepsis Action Taken by Nursing Physical Exam GENERAL: She is oriented to person, place, and time. She appears well-developed and well-nourished. She does not appear distressed. HENT: Exam performed. -Head: Normocephalic and atraumatic. -Right Ear: External ear normal. No mastoid erythema -Left Ear: External ear normal. No mastoid erythema -Mouth/Throat: The oropharynx is clear and moist. No trismus in the jaw. No dental abscesses or uvula swelling. No oropharyngeal exudate or tonsillar abscesses. EYES: Conjunctivae and EOM are normal. Pupils are equal, round, and reactive to light. Right eye exhibits no discharge. Left eye exhibits no discharge. No scleral icterus. NECK: Normal range of motion. Neck supple. No JVD present. CV: Normal rate, irregular rhythm, normal heart sounds and intact distal pulses. There is no peripheral edema. Palpable radial pulses bue. PULM/CHEST: Effort normal and breath sounds normal. No respiratory distress. No stridor. She has no wheezes. She has no rales. ABD: The abdomen is soft. She has no distension. No mass is present. There is no tenderness. There is no rebound, no guarding, no Rivera's sign and no tenderness at McBurney's point. Rovsig negative MUSC/SKEL: Normal range of motion. There is no peripheral edema, tenderness or deformity. Pelvis stable LYMPH: No cervical adenopathy. NEURO: Motor and sensation grossly intact. SKIN: Stage II healing pressure ulcer over the sacrum. No surrounding erythema no bleeding or discharge. PSYCH: She has a normal mood and affect. Behavior is normal. Judgment and thought content normal. Course Course 161: The patient was evaluated in room B5. A complete history and physical exam was performed Cardiac monitoring: An order was placed for continuous cardiac monitoring. The monitor shows a rate of 90 with atrial flutter rhythm interpreted by me 1914: Vital signs stable. Imaging within normal. Labs are significant for creatinine of 1.96, baseline. Patient's troponin is elevated at 41.6, patient not reporting chest pain or difficulty breathing. External medical records reviewed patient has not had any troponins as high before. Creatinine kinase 753. [facility]. Medical Decision Making Laboratory Data Attestation: I reviewed the patient's lab results. 07/29/23 18:12 07/29/23 18:12 Lab Results 07/29/23 07/29/23 Range/Units 18:00 18:12 WBC 6.02 (4.8-10.8) K/ul RBC 4.53 (4.20-5.40) M/uL Hgb 12.0 (12.0-16.0) g/dl Hct 37.1 (37.0-47.0) % MCV 81.9 (80.0-100.0) fL MCH 26.5 (25.0-34.0) pg MCHC 32.3 (32.0-36.0) g/dL RDW Std Deviation 45.7 (36.4-46.3) fL RDW Coeff of Chantal 15.3 H (11.5-14.5) % Plt Count 163 (130-400) K/uL MPV 11.2 (9.4-12.4) fL Immature Gran % (Auto) 0.7 % Neut % (Auto) 74.7 % Lymph % (Auto) 17.9 % [place] % (Auto) 6.0 % Eos % (Auto) 0.2 % Baso % (Auto) 0.5 % Neut # (Auto) 4.50 (1.40-6.50) K/uL Lymph # (Auto) 1.08 L (1.20-3.40) K/uL [place] # (Auto) 0.36 (0.11-0.59) K/uL Eos # (Auto) 0.01 (0.00-0.50) K/uL Baso # (Auto) 0.03 (0.00-0.20) K/uL Immature Gran # (Auto) 0.04 (0.01-0.20) K/uL PT 13.1 H (9.0-12.0) Seconds INR 1.2 H (0.9-1.1) APTT 29 (21-31) Seconds PTT Ratio 1.0 VBG pH 7.45 H (7.36-7.41) VBG pCO2 40 (38-50) mmHg VBG pO2 86 mmHg VBG HCO3 28 mmol/L VBG O2 Saturation 95.0 % VBG Base Excess 3.5 mEq/L Sodium 141 (136-145) mmol/L Potassium 3.9 (3.5-5.1) mmol/L Chloride 107 (98-107) mmol/L Carbon Dioxide 27 (21-32) mmol/L Anion Gap 7 (3-11) BUN 36 H (6-23) mg/dl Creatinine 1.96 H (0.6-1.2) mg/dl Est Cr Clr Drug Dosing 36.1 ml/min Est GFR ( Amer) 30.6 ml/min Est GFR (Non-Af Amer) 26.4 ml/min BUN/Creatinine Ratio 18.4 (10-20) Glucose 124 H (70-99(Fasting)) mg/dl Lactate 0.5 (0.4-2.0) mmol/L Calcium 8.0 L (8.6-10.3) mg/dl Magnesium 1.6 L (1.7-2.4) mg/dl Total Bilirubin 0.6 (0.2-1.0) mg/dl Direct Bilirubin 0.2 (0-0.2) mg/dl AST 124 H (13-39) U/L ALT 83 H (7-52) U/L Alkaline Phosphatase 66 (34-104) U/L Total Creatine Kinase 753 H (26-192) U/L Troponin I High Sens 41.6 H (0-14) pg/ml Total Protein 5.8 L (6.0-8.3) gm/dl Albumin 2.3 L (3.4-5.0) gm/dl Procalcitonin 0.07 (0-0.5) ng/ml Adenovirus (PCR) Not Detected (NotDetected) B. pertussis DNA (PCR) Not Detected (NotDetected) B.parapertussis DNA PCR Not Detected (NotDetected) C. pneumoniae DNA (PCR) Not Detected (NotDetected) Coronavirus OC43 (PCR) Not Detected (NotDetected) Coronavirus HKU1 (PCR) Not Detected (NotDetected) Coronavirus 229E (PCR) Not Detected (NotDetected) SARS-CoV-2 (PCR) Not Detected (NotDetected) Coronavirus NL63 (PCR) Not Detected (NotDetected) Human Metapneumovir PCR Not Detected (NotDetected) Influenza Type A (PCR) Not Detected (NotDetected) Influenza Type B (PCR) Not Detected (NotDetected) M. pneumoniae (PCR) Not Detected (NotDetected) Parainfluenza 1 (PCR) Not Detected (NotDetected) Parainfluenza 2 (PCR) Not Detected (NotDetected) Parainfluenza 3 (PCR) Not Detected (NotDetected) Parainfluenza 4 (PCR) Not Detected (NotDetected) RSV (PCR) Not Detected (NotDetected) Entero/Rhino (PCR) Not Detected (NotDetected) Imaging Data Attestation: I personally reviewed and interpreted this imaging study as follows: My Impression: Chest x-ray negative. Airway clear. No pneumothorax. No consolidation. No cardiomegaly or cephalization.. No free air under the diaphragm. No fractures of the skeletal structures. Radiologist's Impression: Chest X-Ray 07/29/23 16:23 SINGLE VIEW CHEST CLINICAL HISTORY: Sepsis FINDINGS: 2 AP, portable, semierect chest radiographs are compared to study dated 04/09/2023. Correlation is made with chest CT dated 12/30/2017. The examination is degraded by portable technique and apical lordotic positioning. The heart is enlarged and noting atherosclerotic calcification of the thoracic aorta. The pulmonary vasculature is noncongested. Chronic interstitial thickening is similar to previous. There is bibasilar scarring/atelectasis. No airspace consolidation or large pleural effusion is identified. No pneumothorax is seen. The skeletal structures are osteopenic. The bony thorax is grossly intact. A left shoulder arthroplasty is in place. IMPRESSION: Cardiomegaly with no active disease in the chest. ACT 112: Negative or not required by law. Electronically signed by: Bryn Jose M.D. 07/29/2023 4:[address] 07/29/23 16:24 CT SCAN OF THE BRAIN WITHOUT IV CONTRAST CLINICAL HISTORY: Generalized weakness. COMPARISON STUDY: CT of the brain dated 04/08/2023. TECHNIQUE: Unenhanced axial CT scan of the brain is performed from the vertex to the skull base. A dose lowering technique was utilized adhering to the principles of ALARA. CT DOSE: 625.8 mGy.cm FINDINGS: Brain parenchyma: There is mild microangiopathic change. There is no hemorrhage, mass effect, or evidence of acute territorial ischemia by CT criteria. Hernandez- white matter differentiation is preserved. No extra-axial fluid collection is seen. Ventricles, sulci, cisterns: Normal in configuration. Intracranial vasculature: There is atherosclerotic calcification of the cavernous carotid and vertebral arteries. Calvarium: Unremarkable. Sinuses and mastoids: There is fluid within the right sphenoid sinus. The remaining visualized paranasal sinuses are clear. Postoperative changes partially visualized in the right maxilla. The mastoid air cells are well pneumatized. Orbits: The bony orbits are grossly intact. There are bilateral ocular lens implants. IMPRESSION: There is no hemorrhage, mass effect, or evidence of acute territorial ischemia by CT criteria. ACT 112: Negative or not required by law. Electronically signed by: Bryn Jose M.D. 07/29/2023 5:51 PM ECG Data Attestation: I personally reviewed and interpreted this ECG as follows: Rate (beats per minute): 88 Rhythm: + atrial flutter ECG Intervals/blocks: + Normal QRS and + Normal QT-c ECG ST segments: + Normal ST segments MDM Narrative 1612: The patient was evaluated in room B5. A complete history and physical exam was performed Cardiac monitoring: An order was placed for continuous cardiac monitoring. The monitor shows a rate of 90 with atrial flutter rhythm interpreted by me 1914: Vital signs stable. Imaging within normal. Labs are significant for creatinine of 1.96, baseline. Patient's troponin is elevated at 41.6, patient not reporting chest pain or difficulty breathing. External medical records reviewed patient has not had any troponins as high before. Creatinine kinase 753. Patient will be admitted to the [facility] hospitalist team Dr. Childress notified. Impression & Plan Weakness, Elevated troponin Discharge Plan Visit Data Chief Complaint: Weakness Stated Complaint: A-FIB, WEAKNESS X 1WK ED Provider: Saurav Washburn Discharge Problem: Weakness, Elevated troponin Forms Stand Alone Forms: My [facility] Prescriptions Prescriptions: No Action (DME) lancets [OneTouch UltraSoft Lancets] Misc See Rx Instructions .ROUTE .MEDSUPPLY Qty: 400 3RF Rx Instructions: test blood sugar 4 x daily (DME) blood sugar diagnostic Strip See Dose Instructions .ROUTE .MEDSUPPLY Qty: 300 3RF Dose Instruction: As directed Rx Instructions: test blood sugar 3 x daily. OneTouch ultra blue test strips. ondansetron 4 mg tablet,disintegrating 4 mg PO Q8H PRN (Reason: nausea and vomiting) Qty: 14 0RF atorvastatin 80 mg tablet 80 mg PO HS Qty: 90 3RF levothyroxine 50 mcg tablet 50 mcg PO DAILYBB Qty: 90 1RF Rx Instructions: take with 8 oz of water (DME) insulin syringe-needle U-100 [Easy Comfort Insulin Syringe] 0.5 mL 31 gauge x 5/16" syringe See Rx Instructions .ROUTE .MEDSUPPLY Qty: 400 3RF Rx Instructions: Use four times a day with insulin injection folic acid 1 mg tablet 1 mg PO QAM Qty: 90 3RF Retacrit 40,000 unit/mL solution 40,000 unit subcut UD 28 Days Qty: 28 6RF Rx Instructions: weekly on Wednesdays, hold for Hb 11 or higher sucralfate [Carafate] 100 mg/mL suspension 10 ml PO QID 14 Days Qty: 560 0RF Rx Instructions: PER PT "DID NOT START". swish in mouth and swallow; use after food/drink ergocalciferol (vitamin D2) [Vitamin D2] 1,250 mcg (50,000 unit) capsule 50,000 unit PO WK Rx Instructions: Saturday nystatin 100,000 unit/gram powder 1 applic topical DAILY PRN (Reason: skin irritation) Qty: 60 3RF bumetanide 2 mg tablet 2 mg PO QAM Hold Instructions: Resume on 05/24/23. oxycodone 5 mg tablet 5 mg PO Q6H PRN (Reason: pain) Qty: 40 0RF metoprolol succinate 25 mg tablet extended release 24 hr 25 mg PO DAILY Qty: 90 3RF trazodone 100 mg tablet 100 mg PO HS buspirone 15 mg tablet 15 mg PO BID cyanocobalamin (vitamin B-12) 2,500 mcg tablet 2,500 mcg PO 2XWK Rx Instructions: TUES & THURS ONLY lorazepam [Ativan] 1 mg tablet 1 mg PO BID PRN (Reason: anxiety) amlodipine [Norvasc] 10 mg tablet 5 mg PO QAM fluvoxamine 100 mg Tablet 150 mg PO BID docusate sodium [Colace] 100 mg Capsule 100 mg PO BID PRN (Reason: Constipation) pregabalin [Lyrica] 75 mg Capsule 75 mg PO BID diltiazem HCl 180 mg Tablet Extended Release 24 Hr 180 mg PO DAILY fenofibrate 160 mg tablet 160 mg PO QAM Rx Instructions: PER EXT MED HX. FILLED 07/26/23. pantoprazole 40 mg tablet,delayed release (DR/EC) 40 mg PO BID Qty: 60 5RF baclofen 10 mg Tablet 5 mg PO Q8H PRN (Reason: MUSCLE SPASMS) insulin lispro 100 unit/mL solution 5 - 8 unit SQ TIDM Rx Instructions: Inject as per sliding scale subcutaneously before meals and at bedtime: If BSG is <60, notify MD If BS-150 = 0 151-200 = 2 units 201-250 = 4 units 251-300 = 6 units 301-350 = 8 units 351-400 = 10 units 401-450 = 12 units 451-500 = 14 units >500 Notify multivitamin with iron-mineral Tablet 1 tab PO DAILY Referrals Referrals: William Lewis MD [Primary Care Provider] -
[2023-07-29 18:48] LABS: Albumin Level 2.3 gm/dl (3.4-5.0); BUN Creatinine Ratio 18.4 (10-20); Bilirubin Direct 0.2 mg/dl (0-0.2); Bilirubin,Total 0.6 mg/dl (0.2-1.0); Creatinine Clr Calc Pharmacy 36.1 ml/min; Est GFR (African American) 30.6 ml/min; Est GFR (Non-African American) 26.4 ml/min; Magnesium 1.6 mg/dl (1.7-2.4); Potassium 3.9 mmol/L (3.5-5.1); Total Protein 5.8 gm/dl (6.0-8.3); Troponin I High Sensitivity 41.6 pg/ml (0-14)
[2023-07-29 18:56] LABS: INR 1.2 (0.9-1.1); Partial Thromboplastin Time 29 Seconds (21-31); Prothrombin Time 13.1 Seconds (9.0-12.0)
[2023-07-29 19:04] LABS: Adenovirus PCR Not Detected (NotDetected); Bordetella parapertussis PCR Not Detected (NotDetected); Bordetella pertussis PCR Not Detected (NotDetected); Chlamydia pneumoniae PCR Not Detected (NotDetected); Coronavirus 229E PCR Not Detected (NotDetected); Coronavirus CoV-2 (COVID19)PCR Not Detected (NotDetected); Coronavirus HKU1 PCR Not Detected (NotDetected); Coronavirus NL63 PCR Not Detected (NotDetected); Coronavirus OC43PCR Not Detected (NotDetected); Human Metapneumovirus PCR Not Detected (NotDetected); Influenza A PCR Not Detected (NotDetected); Influenza B PCR Not Detected (NotDetected); Mycoplasma pneumoniae PCR Not Detected (NotDetected); Parainfluenza Virus 1 PCR Not Detected (NotDetected); Parainfluenza Virus 2 PCR Not Detected (NotDetected); Parainfluenza Virus 3 PCR Not Detected (NotDetected); Parainfluenza Virus 4 PCR Not Detected (NotDetected); Respiratory Syncytial VirusPCR Not Detected (NotDetected); Rhinovirus/Enterovirus PCR Not Detected (NotDetected)
--- NOTE | 2023-07-29 19:51 | History & Physical Report ---
Date of Service July 29, 2023 Assessment & Plan (1) Weakness: Plan: 62yo female presenting from home with diffuse generalized weakness, inability to get up and ambulate in her home. She recently had a prolonged hospital stay followed by a long stay in a rehabilitation facility. Suspect overall deconditioning. No focal weakness on exam. -Admit to medical with telemetry -PT/OT evaluation -Fall precautions -Continue pain control with Oxycodone PRN - patient is on many potentially sedating agents - caution with coadministration (2) Elevated troponin: Plan: Patient denies chest pain. No acute ischemic changes on EKG. -Troponin mildly elevated at 41.6, improved now to 38.2 -Telemetry monitoring (3) Elevated CK: Plan: Mildly elevated CK at 753 -IVF with LR at 125mL/hr x 2L -Repeat CK in AM (4) Sacral wound: Plan: Patient with known sacral wound. She reports home nursing changes dressing and bandages the wound daily. No reported pain or drainage. -Turn and position q 2 hours -Wound Care (5) Hypercholesterolemia: Plan: Chronic. Stable -Continue Atorvastatin 80mg po qHS (6) Atrial fibrillation: Plan: Paroxysmal s/p cardioversion in 2020. Presently in NSR with rate of 88bpm. Patient was previously seen by HF in May 2023 - note reports that Metoprolol has been DCd and Eliquis is on hold due to acute GIB. Per review of her DC medications from rehab - she is on Diltiazem and Metoprolol, no anticoagulation -Continue Diltiazem -Continue Metoprolol -Consider resuming anticoagulation (7) Type 2 diabetes mellitus: Plan: Chronic. Last HgbA1C on 03/06/23=7 -ISS -Goal blood sugar 110 - 140 -Continue Lyrica PRN (8) Obsessive compulsive disorder: Plan: Chronic -Continue Fluvoxamine -Continue Buspirone (9) HTN (hypertension): Plan: Blood pressure mildly elevated -Continue Metoprolol -Will DC Amlodipine as patient is already on Diltiazem History of Present Illness Chief Complaint: weakness Primary Care Provider: William Lewis MD Jerri Arellano is a 62yo female presenting with weakness and ambulatory dysfunction. Patient was admitted to [facility] from 04/08 - 05/10/23 after presenting with a fall resulting in a fracture of the left hip s/p repair 04/09. Also with Stage IV sacral decubitus ulcer present on admission which was debrided on 05/06/23. She was discharged to rehab at [facility] and was recently discharged home on 07/22/23. Patient reports that since being home she has been doing very poorly. She has had progressive weakness and fatigue. She reports she is unable to stand or walk. She uses a walker and wheelchair at home. She has had poor appetite and decreased oral intake as well as some subjective chills and shortness of breath. She has had some constipation as well. Otherwise, patient with no new complaints. In the ER she is afebrile, HD stable and nontoxic in appearance. Allergies Allergy/AdvReac Type Severity Reaction Status Date / Time Iodinated Contrast Media Allergy Unknown Unknown Verified 07/29/23 16:37 [Iodinated Contrast- Oral and IV Dye] promethazine AdvReac Intermediate BROKEN Verified 07/29/23 16:37 CAPILLARIES FACE Home Medications Medication Instructions Recorded Confirmed Type lorazepam 1 mg tablet (Ativan) 1 mg PO BID PRN anxiety 03/24/19 07/29/23 History buspirone 15 mg tablet 15 mg PO BID 11/28/20 07/29/23 History lancets (OneTouch UltraSoft #400 ea 04/12/21 07/24/23 Rx Lancets) trazodone 100 mg tablet 100 mg PO HS 07/09/22 07/29/23 History cyanocobalamin (vitamin B-12) 2,500 mcg PO 2XWK 10/08/22 07/29/23 History 2,500 mcg tablet blood sugar diagnostic #300 ea 12/10/22 07/24/23 Rx amlodipine 10 mg tablet (Norvasc) 5 mg PO QAM 12/20/22 07/29/23 History ondansetron 4 mg disintegrating 4 mg PO Q8H PRN nausea and 12/21/22 07/29/23 Rx tablet vomiting #14 tabs atorvastatin 80 mg tablet 80 mg PO HS #90 tabs 12/24/22 07/29/23 Rx levothyroxine 50 mcg tablet 50 mcg PO DAILYBB #90 tabs 01/23/23 07/29/23 Rx insulin syringe-needle U-100 0.5 #400 ea 02/05/23 07/24/23 Rx mL 31 gauge x 5/16" (Easy Comfort Insulin Syringe) folic acid 1 mg tablet 1 mg PO QAM #90 tabs 02/22/23 07/29/23 Rx fluvoxamine 100 mg tablet 150 mg PO BID 04/08/23 07/29/23 History epoetin fernando-epbx 40,000 unit/mL 40,000 unit subcut UD 28 days #28 07/01/23 07/29/23 Rx injection solution (Retacrit) mL diltiazem HCl 180 mg 180 mg PO DAILY 07/04/23 07/29/23 History tablet,extended release 24 hr docusate sodium 100 mg capsule 100 mg PO BID PRN Constipation 07/04/23 07/29/23 History (Colace) fenofibrate 160 mg tablet 160 mg PO QAM 07/04/23 07/29/23 History pregabalin 75 mg capsule (Lyrica) 75 mg PO BID 07/04/23 07/29/23 History pantoprazole 40 mg tablet,delayed 40 mg PO BID #60 tabs 07/09/23 07/29/23 Rx release sucralfate 100 mg/mL oral 10 ml PO QID 14 days #560 mL 07/19/23 07/29/23 Rx suspension (Carafate) bumetanide 2 mg tablet 2 mg PO QAM 07/24/23 07/29/23 History ergocalciferol (vitamin D2) 1,250 50,000 unit PO WK 07/24/23 07/29/23 History mcg (50,000 unit) capsule (Vitamin D2) nystatin 100,000 unit/gram topical 1 applic topical DAILY PRN skin 07/24/23 07/29/23 Rx powder irritation #60 grams oxycodone 5 mg tablet 5 mg PO Q6H PRN pain #40 tabs 07/24/23 07/29/23 Rx metoprolol succinate 25 mg 25 mg PO DAILY #90 tabs 07/26/23 07/29/23 Rx tablet,extended release 24 hr baclofen 10 mg tablet 5 mg PO Q8H PRN MUSCLE SPASMS 07/29/23 07/29/23 History insulin lispro 100 unit/mL 5 - 8 unit subcut TIDM 07/29/23 07/29/23 History subcutaneous solution multivitamin with iron-mineral 1 tab PO DAILY 07/29/23 07/29/23 History Past Med/Surg History Medical History Retention of urine, unspecified Pressure ulcer of sacral region, stage 4 Obsessive compulsive disorder Muscle wasting and atrophy, not elsewhere classified, other site Acute kidney injury Swelling of right upper extremity Atrial flutter History of partial replacement of left hip joint using bipolar prosthesis (04/09/23) History of COVID-2019--mild symptoms, no symptoms now On home oxygen therapy 2L n/c prn sob Vitamin D deficiency Fluid retention Right sided sciatica Pneumonia hx of, not recently AV fistula September 07, 2020 > right wrist > not on dialysis at present Atrial fibrillation and flutter Dizziness Generalized weakness Syncope PAF (paroxysmal atrial fibrillation) Atrial fibrillation, new onset dx August 2020> cardioversions x2. on eliquis > follows Dr. Fontaine Cardiac murmur Mild TR noted on 2019 echo. 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 Per [facility] pulm 12/2019, "fairly stable from a pulmonary perspective. She is short of breath with any exertion, however a large part of this is likely related to obesity. Pulmonary functions done 1 year ago showed only a mild restrictive pattern. Diffusion was slightly decreased to 66%. One year ago she did have a normal arterial blood gas with no evidence of CO2 retention." Using PRN 3L, mostly using with exertion, not using every day. Diastolic congestive heart failure Euvolemic on exam at [facility] 09/02/20. follows with Dr. Fontaine Diabetic retinopathy, nonproliferative Diabetic peripheral neuropathy Claustrophobia Chronic rhinitis Arthralgia of multiple sites Anxiety and depression Chronic low back pain Hypothyroidism Hyperlipemia Hypertension Diabetes IDDM Surgical History History of incision and drainage (05/06/23) Incision and Drainage, Debridement Sacral Wound - Yasmany Langley DO History of bilateral cataract extraction History of cardioversion x2 Status post gastric bypass for obesity 09/14/2020- Dr. Ash- [facility] History of arthroscopy x2 left shoulder History of total shoulder replacement LEFT 07/19 2015 fracture History of esophagogastroduodenoscopy (EGD) History of colonoscopy History of dermoid cyst excision S/P tooth extraction History of mandibular surgery FULL ROM H/O section x1 Hx of cholecystectomy Family History Daughter Multiple allergies Bipolar disorder Aunt Breast cancer Mother Diabetes Heart disease Hyperthyroidism Hypertension Father Gastric cancer Hearing loss Myocardial infarction Grandfather Heart disease Family/Other Osteoporosis Lung cancer Hypertension Stroke Brother Hypertension Grandmother Ovarian cancer Sister Diabetes Migraine Other No family history of adverse response to anesthesia Denies family history of Prostate cancer Colorectal cancer Uterine cancer Social History Smoking Status: Never smoker Second Hand Exposure: No; Do You Dip or Chew Tobacco: No; Hx Alcohol Use: No (Unknown - Resident of [facility]) Hx Substance Use: No (Unknown - Resident of [facility]) Preferred Language: Arabic Communication Ability: Effective Visual Impairment: No Limitations Cattle Manager Required: No Beliefs That Will Affect Care: None marital status: Current Living Situation: Care Home Current Living Situation Comment: Resident of [facility] current occupational status: employed and unemployed Feels Safe at Home: Yes Childhood Exposure to Second-Hand Smoke: Yes Dental Care, Regularly: Yes Physical Activity Frequency: Does not Exercise Seatbelt Use: always Sunscreen Use: Yes Review of Systems Review of Systems: All systems reviewed & are unremarkable except as noted in HPI & below Physical Exam Physical Exam: General: patient resting comfortably, NAD, non-toxic in appearance, AA&O x 4 Skin: warm, dry, intact, no rashes or lesions HEENT: NC/AT, PERRL, EOMI, anicteric sclera, conjunctiva without injection, external ear normal to inspection and nontender, nares patent, moist mucus membranes, dentition intact, no oropharyngeal lesions, neck supple, trachea midline, no LAD, no thyromegaly, no JVD Heart: +S1/S2, regular, no m/r/g Lungs: equal air entry bilaterally, no rales/rhonchi/wheezes Abd: +BS, soft, NT/ND, no masses/organomegaly/ascites Ext: warm, 2+ pulses in UE/LE bilaterally, no clubbing/cyanosis or edema Neuro: nonfocal, patient AA&O x 4, speech intact, no facial droop, moving all extremities on command with equal strength 5/5 Sacral wound not visualized Results & Data Results & Data Vital Signs (Past 12 Hours) Vital Signs Temp Pulse Pulse Resp BP BP Pulse Ox 07/29/23 19:00 88 07/29/23 16:45 07/29/23 16:45 37.1 C 104 H 15 160/94 H 98 07/29/23 16:45 104 H 15 98 07/29/23 16:45 37.1 C 104 H 15 160/94 H 98 07/29/23 16:23 87 O2 Del Method 07/29/23 19:00 07/29/23 16:45 Room Air 07/29/23 16:45 Room Air 07/29/23 16:45 Room Air 07/29/23 16:45 Room Air 07/29/23 16:23 Laboratory Results Laboratory Results WBC 6.02 K/ul (4.8-10.8) 07/29/23 18:12 RBC 4.53 M/uL (4.20-5.40) 07/29/23 18:12 Hgb 12.0 g/dl (12.0-16.0) 07/29/23 18:12 Hct 37.1 % (37.0-47.0) 07/29/23 18:12 MCV 81.9 fL (80.0-100.0) 07/29/23 18:12 MCH 26.5 pg (25.0-34.0) 07/29/23 18:12 MCHC 32.3 g/dL (32.0-36.0) 07/29/23 18:12 RDW Std Deviation 45.7 fL (36.4-46.3) 07/29/23 18:12 RDW Coeff of Chantal 15.3 % (11.5-14.5) H 07/29/23 18:12 Plt Count 163 K/uL (130-400) 07/29/23 18:12 MPV 11.2 fL (9.4-12.4) 07/29/23 18:12 Immature Gran % (Auto) 0.7 % 07/29/23 18: Neut % (Auto) 74.7 % 07/29/23 18: Lymph % (Auto) 17.9 % 07/29/23 18: Cabell % (Auto) 6.0 % 07/29/23 18: Eos % (Auto) 0.2 % 07/29/23 18: Baso % (Auto) 0.5 % 07/29/23 18: Neut # (Auto) 4.50 K/uL (1.40-6.50) 07/29/23 18: Lymph # (Auto) 1.08 K/uL (1.20-3.40) L 07/29/23 18: Cabell # (Auto) 0.36 K/uL (0.11-0.59) 07/29/23 18: Eos # (Auto) 0.01 K/uL (0.00-0.50) 07/29/23 18: Baso # (Auto) 0.03 K/uL (0.00-0.20) 07/29/23 18: Immature Gran # (Auto) 0.04 K/uL (0.01-0.20) 07/29/23 18:12 PT 13.1 Seconds (9.0-12.0) H 07/29/23 18:00 INR 1.2 (0.9-1.1) H 07/29/23 18:00 APTT 29 Seconds (21-31) 07/29/23 18:00 PTT Ratio 1.0 07/29/23 18:00 VBG pH 7.45 (7.36-7.41) H 07/29/23 18:00 VBG pCO2 40 mmHg (38-50) 07/29/23 18:00 VBG pO2 86 mmHg 07/29/23 18:00 VBG HCO3 28 mmol/L 07/29/23 18:00 VBG O2 Saturation 95.0 % 07/29/23 18:00 VBG Base Excess 3.5 mEq/L 07/29/23 18:00 Sodium 141 mmol/L (136-145) 07/29/23 18:12 Potassium 3.9 mmol/L (3.5-5.1) 07/29/23 18:12 Chloride 107 mmol/L (98-107) 07/29/23 18:12 Carbon Dioxide 27 mmol/L (21-32) 07/29/23 18:12 Anion Gap 7 (3-11) 07/29/23 18:12 BUN 36 mg/dl (6-23) H 07/29/23 18:12 Creatinine 1.96 mg/dl (0.6-1.2) H 07/29/23 18:12 Est Cr Clr Drug Dosing 36.1 ml/min 07/29/23 18:12 Est GFR ( Amer) 30.6 ml/min 07/29/23 18:12 Est GFR (Non-Af Amer) 26.4 ml/min 07/29/23 18:12 BUN/Creatinine Ratio 18.4 (10-20) 07/29/23 18:12 Glucose 124 mg/dl (70-99(Fasting)) H 07/29/23 18:12 Lactate 0.5 mmol/L (0.4-2.0) 07/29/23 18:12 Calcium 8.0 mg/dl (8.6-10.3) L 07/29/23 18:12 Phosphorus 2.9 mg/dl (2.5-4.9) 07/29/23 22:42 Magnesium 1.6 mg/dl (1.7-2.4) L 07/29/23 18:12 Total Bilirubin 0.6 mg/dl (0.2-1.0) 07/29/23 18:12 Direct Bilirubin 0.2 mg/dl (0-0.2) 07/29/23 18:12 AST 124 U/L (13-39) H 07/29/23 18:12 ALT 83 U/L (7-52) H 07/29/23 18:12 Alkaline Phosphatase 66 U/L (34-104) 07/29/23 18:12 Total Creatine Kinase 753 U/L (26-192) H 07/29/23 18:12 Troponin I High Sens 38.2 pg/ml (0-14) H 07/29/23 22:42 Total Protein 5.8 gm/dl (6.0-8.3) L 07/29/23 18:12 Albumin 2.3 gm/dl (3.4-5.0) L 07/29/23 18:12 Procalcitonin 0.07 ng/ml (0-0.5) 07/29/23 18:00 Urine Color Yellow 07/29/23 18:00 Urine Appearance Slightly Cloudy (Clear) 07/29/23 18:00 Urine pH 7.0 (4.5-7.5) 07/29/23 18:00 Ur Specific Culver 1.010 (1.000-1.030) 07/29/23 18:00 Urine Protein Trace (Negative) H 07/29/23 18:00 Urine Glucose (UA) Negative (Negative) 07/29/23 18:00 Urine Ketones Negative (Negative) 07/29/23 18:00 Urine Blood 2+ (Negative) H 07/29/23 18:00 Urine Nitrite Negative (Negative) 07/29/23 18:00 Urine Bilirubin Negative (Negative) 07/29/23 18:00 Urine Urobilinogen Negative (Negative) 07/29/23 18:00 Ur Leukocyte Esterase Trace (Negative) H 07/29/23 18:00 Urine RBC 0-4 /hpf (0-4) 07/29/23 18:00 Urine WBC 0-5 /hpf (0-5) 07/29/23 18:00 Ur Epithelial Cells 5-10 /lpf (0-5) H 07/29/23 18:00 Urine Bacteria 1+ (Negative) H 07/29/23 18:00 Hyaline Casts 0-5 /lpf (0-5) 07/29/23 18:00 Adenovirus (PCR) Not Detected (NotDetected) 07/29/23 18:00 B. pertussis DNA (PCR) Not Detected (NotDetected) 07/29/23 18:00 B.parapertussis DNA PCR Not Detected (NotDetected) 07/29/23 18:00 C. pneumoniae DNA (PCR) Not Detected (NotDetected) 07/29/23 18:00 Coronavirus OC43 (PCR) Not Detected (NotDetected) 07/29/23 18:00 Coronavirus HKU1 (PCR) Not Detected (NotDetected) 07/29/23 18:00 Coronavirus 229E (PCR) Not Detected (NotDetected) 07/29/23 18:00 SARS-CoV-2 (PCR) Not Detected (NotDetected) 07/29/23 18:00 Coronavirus NL63 (PCR) Not Detected (NotDetected) 07/29/23 18:00 Human Metapneumovir PCR Not Detected (NotDetected) 07/29/23 18:00 Influenza Type A (PCR) Not Detected (NotDetected) 07/29/23 18:00 Influenza Type B (PCR) Not Detected (NotDetected) 07/29/23 18:00 M. pneumoniae (PCR) Not Detected (NotDetected) 07/29/23 18:00 Parainfluenza 1 (PCR) Not Detected (NotDetected) 07/29/23 18:00 Parainfluenza 2 (PCR) Not Detected (NotDetected) 07/29/23 18:00 Parainfluenza 3 (PCR) Not Detected (NotDetected) 07/29/23 18:00 Parainfluenza 4 (PCR) Not Detected (NotDetected) 07/29/23 18:00 RSV (PCR) Not Detected (NotDetected) 07/29/23 18:00 Entero/Rhino (PCR) Not Detected (NotDetected) 07/29/23 18:00 Impressions Chest X-Ray 07/29/23 16:23 SINGLE VIEW CHEST CLINICAL HISTORY: Sepsis FINDINGS: 2 AP, portable, semierect chest radiographs are compared to study dated 04/09/2023. Correlation is made with chest CT dated 12/30/2017. The examination is degraded by portable technique and apical lordotic positioning. The heart is enlarged and noting atherosclerotic calcification of the thoracic aorta. The pulmonary vasculature is noncongested. Chronic interstitial thickening is similar to previous. There is bibasilar scarring/atelectasis. No airspace consolidation or large pleural effusion is identified. No pneumothorax is seen. The skeletal structures are osteopenic. The bony thorax is grossly intact. A left shoulder arthroplasty is in place. IMPRESSION: Cardiomegaly with no active disease in the chest. ACT 112: Negative or not required by law. Electronically signed by: Bryn Jose M.D. 07/29/2023 4:[address] 07/29/23 16:24 CT SCAN OF THE BRAIN WITHOUT IV CONTRAST CLINICAL HISTORY: Generalized weakness. COMPARISON STUDY: CT of the brain dated 04/08/2023. TECHNIQUE: Unenhanced axial CT scan of the brain is performed from the vertex to the skull base. A dose lowering technique was utilized adhering to the principles of ALARA. CT DOSE: 625.8 mGy.cm FINDINGS: Brain parenchyma: There is mild microangiopathic change. There is no hemorrhage, mass effect, or evidence of acute territorial ischemia by CT criteria. Hernandez- white matter differentiation is preserved. No extra-axial fluid collection is seen. Ventricles, sulci, cisterns: Normal in configuration. Intracranial vasculature: There is atherosclerotic calcification of the cavernous carotid and vertebral arteries. Calvarium: Unremarkable. Sinuses and mastoids: There is fluid within the right sphenoid sinus. The remaining visualized paranasal sinuses are clear. Postoperative changes partially visualized in the right maxilla. The mastoid air cells are well pneumatized. Orbits: The bony orbits are grossly intact. There are bilateral ocular lens implants. IMPRESSION: There is no hemorrhage, mass effect, or evidence of acute territorial ischemia by CT criteria. ACT 112: Negative or not required by law. Electronically signed by: Bryn Jose M.D. 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
[2023-07-29 21:35] LABS: Appearance Urine Slightly Cloudy (Clear); Bilirubin Urine Negative (Negative); Blood Urine 2+ (Negative); Glucose Urine UA Negative (Negative); Ketones Urine Negative (Negative); Leukocyte Esterase Urine Trace (Negative); Nitrite Urine Negative (Negative); Protein Urine Trace (Negative); Urobilinogen Urine Negative (Negative)
[2023-07-29 21:43] LABS: Color Urine Yellow
[2023-07-29 21:45] LABS: Bacteria Urine 1+ (Negative); Hyaline Casts Urine 0-5 /lpf (0-5); RBC Urine 0-4 /hpf (0-4); WBC Urine 0-5 /hpf (0-5)
[2023-07-29] MEDS ORDERED: GLUCAGON FOR INJ 1 MG VIAL SQ PRN (21:55)
[2023-07-29] MEDS ORDERED: GLUCOSE 40% GEL 15 GM TUBE PO PRN (21:55)
[2023-07-29] MEDS ORDERED: GLUCOSE 10 TAB/TUBE PO PRN (21:55)
[2023-07-29] MEDS ORDERED: DEXTROSE 50% 50 ML SYRINGE IV PRN (21:55)
[2023-07-29] MEDS ORDERED: POLYETHYLENE (MIRALAX) 17 GM PACK PO PRN (21:55)
[2023-07-29] MEDS ORDERED: BACLOFEN 10 MG TAB PO PRN (21:55)
[2023-07-29] MEDS ORDERED: CARBOHYDRATES FOR HYPOGLYCEMIA PO PRN (21:55)
[2023-07-29 23:48] LABS: Phosphorus 2.9 mg/dl (2.5-4.9)
[2023-07-29 23:55] LABS: Troponin I High Sensitivity 38.2 pg/ml (0-14)
[2023-07-30] MEDS: oxyCODONE HCL IR 5 MG TAB (IMMEDIATE RELEASE) PO PRN (00:28)
[2023-07-30] MEDS: LACTATED RINGER'S 1,000 ML IV SCH (00:29)
[2023-07-30] MEDS: MAGNESIUM SULFATE / D5W 1 GM/100 ML BAG IV SCH (00:32)
[2023-07-30] MEDS: traZODone HCL 100 MG TAB PO SCH (01:11)
[2023-07-30] MEDS: PANTOprazole 40 MG TAB PO SCH (01:11)
[2023-07-30] MEDS: DOCUSATE SODIUM 100 MG CAP PO SCH (01:11)
[2023-07-30] MEDS: ATORVASTATIN 40 MG TAB PO SCH (01:11)
[2023-07-30] MEDS: fluvoxaMINE MALEATE 50 MG TAB PO SCH (01:11)
[2023-07-30] MEDS: SUCRALFATE 1 GM/10 ML UDC PO SCH (01:11)
[2023-07-30] MEDS: busPIRone 15 MG TAB PO SCH (01:12)
[2023-07-30] MEDS: INSULIN ASPART PER UNIT CHARGE SC SCH (01:23)
[2023-07-30] MEDS: PREGABALIN 75 MG CAP PO SCH (01:55)
[2023-07-30] MEDS: LEVOTHYROXINE SODIUM 50 MCG TABLET PO SCH (06:39)
[2023-07-30] MEDS ORDERED: amLODIPine BESYLATE 5 MG TAB PO SCH (09:00)
[2023-07-30] MEDS: dilTIAZem HCL 180 MG CAPCR PO SCH (10:12)
[2023-07-30] MEDS: FOLIC ACID 1 MG TAB PO SCH (10:12)
[2023-07-30] MEDS: METOPROLOL SUCC 25MG EXT REL TAB PO SCH (10:12)
[2023-07-30 10:16] LABS: Hematocrit (blood only) 39.1 % (37.0-47.0); Hemoglobin 12.2 g/dl (12.0-16.0); Mean Corpuscular Hemoglobin 26.1 pg (25.0-34.0); Mean Corpuscular Hgb Conc 31.2 g/dL (32.0-36.0); Mean Corpuscular Volume 83.7 fL (80.0-100.0); Mean Platelet Volume 12.2 fL (9.4-12.4); Platelet Count 182 K/uL (130-400); RDW Coefficient of Variation 15.4 % (11.5-14.5); RDW Standard Deviation 46.6 fL (36.4-46.3); Red Blood Count 4.67 M/uL (4.20-5.40); White Blood Count 5.83 K/ul (4.8-10.8)
[2023-07-30 10:31] LABS: Albumin Level 2.2 gm/dl (3.4-5.0); BUN Creatinine Ratio 17.7 (10-20); Bilirubin Direct 0.3 mg/dl (0-0.2); Bilirubin,Total 0.6 mg/dl (0.2-1.0); Creatinine Clr Calc Pharmacy 36.3 ml/min; Est GFR (African American) 30.2 ml/min; Magnesium 2.1 mg/dl (1.7-2.4); Total Protein 5.5 gm/dl (6.0-8.3)
[2023-07-30 10:38] LABS: Troponin I High Sensitivity 41.3 pg/ml (0-14)
[2023-07-30 11:30] LABS: C Reactive Protein 0.7 mg/dl (0-0.5)
--- NOTE | 2023-07-30 12:31 | XRay Report ---
XR hip LT min 2V CLINICAL HISTORY: left hip pain TECHNIQUE: 2 views of the left hip were obtained. Comparison: Comparison is made to hip radiographs 04/09/2023 FINDINGS: There is no evidence of an acute fracture. Total hip arthoplasty hardware is seen without perihardwar e lucency or hardware fracture. Vascular calcifications are noted. IMPRESSION: No evidence of acute osseous injury. ACT 112: Negative or not required by law. Electronically signed by: Farhan Higgins M.D. 07/30/2023 12:30 PM
--- NOTE | 2023-07-30 13:04 | Orthopedic Consultation ---
Date of Service July 30, 2023 Assessment & Plan (1) Left hip postoperative wound infection: I did order new xrays of her hip, esr, and crp. Npo after midnight for I & D and head exchange. Discussed with Dr. Childress. Patient seen and examined by Dr. Childress today at 5pm. Her esr/crp are not significantly elevated. We aspirated a small amount of fluid from the lateral hip and will send this off for gram stain/culture. Will order ct scan of the hip. Still plan to keep her npo after midnight in case of surgery tomorrow. Procedure: left hip was sterilely prepped with alcohol, using aseptic technique approximately 2ml of mostly bloody fluid was aspirated. We did this from 2 locations on the lateral hip. She tolerated the procedure well. No complications. Dressing applied. History of Present Illness Reason for Consultation: . Requesting Physician: . Attending Physician: Tushar Collier . Jerri is a 62 year old patient who is now about 4 months s/p left hip bipolar hemiarthroplasty which was done for a fracture. She was at a rehab/extended care facility and discharged home about a week. She has been struggling at home and felt weak. Home health recommended that she come to the ER. She was admitted by the hospitalist service yesterday. She has been having some groin pain. Today she said her incision "broke open". Allergies Allergy/AdvReac Type Severity Reaction Status Date / Time Iodinated Contrast Media Allergy Unknown Unknown Verified 07/29/23 16:37 [Iodinated Contrast- Oral and IV Dye] promethazine AdvReac Intermediate BROKEN Verified 07/29/23 16:37 CAPILLARIES FACE Home Medications Medication Instructions Recorded Confirmed Type lorazepam 1 mg tablet (Ativan) 1 mg PO BID PRN anxiety 03/24/19 07/29/23 History buspirone 15 mg tablet 15 mg PO BID 11/28/20 07/29/23 History lancets (OneTouch UltraSoft #400 ea 04/12/21 07/24/23 Rx Lancets) trazodone 100 mg tablet 100 mg PO HS 07/09/22 07/29/23 History cyanocobalamin (vitamin B-12) 2,500 mcg PO 2XWK 10/08/22 07/29/23 History 2,500 mcg tablet blood sugar diagnostic #300 ea 12/10/22 07/24/23 Rx ondansetron 4 mg disintegrating 4 mg PO Q8H PRN nausea and 12/21/22 07/29/23 Rx tablet vomiting #14 tabs atorvastatin 80 mg tablet 80 mg PO HS #90 tabs 12/24/22 07/29/23 Rx levothyroxine 50 mcg tablet 50 mcg PO DAILYBB #90 tabs 01/23/23 07/29/23 Rx insulin syringe-needle U-100 0.5 #400 ea 02/05/23 07/24/23 Rx mL 31 gauge x 5/16" (Easy Comfort Insulin Syringe) folic acid 1 mg tablet 1 mg PO QAM #90 tabs 02/22/23 07/29/23 Rx fluvoxamine 100 mg tablet 150 mg PO BID 04/08/23 07/29/23 History epoetin fernando-epbx 40,000 unit/mL 40,000 unit subcut UD 28 days #28 07/01/23 07/29/23 Rx injection solution (Retacrit) mL diltiazem HCl 180 mg 180 mg PO DAILY 07/04/23 07/29/23 History tablet,extended release 24 hr docusate sodium 100 mg capsule 100 mg PO BID PRN Constipation 07/04/23 07/29/23 History (Colace) fenofibrate 160 mg tablet 160 mg PO QAM 07/04/23 07/29/23 History pregabalin 75 mg capsule (Lyrica) 75 mg PO BID 07/04/23 07/29/23 History pantoprazole 40 mg tablet,delayed 40 mg PO BID #60 tabs 07/09/23 07/29/23 Rx release sucralfate 100 mg/mL oral 10 ml PO QID 14 days #560 mL 07/19/23 07/29/23 Rx suspension (Carafate) bumetanide 2 mg tablet 2 mg PO QAM 07/24/23 07/29/23 History ergocalciferol (vitamin D2) 1,250 50,000 unit PO WK 07/24/23 07/29/23 History mcg (50,000 unit) capsule (Vitamin D2) nystatin 100,000 unit/gram topical 1 applic topical DAILY PRN skin 07/24/23 07/29/23 Rx powder irritation #60 grams oxycodone 5 mg tablet 5 mg PO Q6H PRN pain #40 tabs 07/24/23 07/29/23 Rx metoprolol succinate 25 mg 25 mg PO DAILY #90 tabs 07/26/23 07/29/23 Rx tablet,extended release 24 hr baclofen 10 mg tablet 5 mg PO Q8H PRN MUSCLE SPASMS 07/29/23 07/29/23 History insulin lispro 100 unit/mL 5 - 8 unit subcut TIDM 07/29/23 07/29/23 History subcutaneous solution multivitamin with iron-mineral 1 tab PO DAILY 07/29/23 07/29/23 History amlodipine 10 mg tablet (Norvasc) 5 mg (1/2 x 10 mg) PO QAM #90 tabs 07/31/23 Rx Past Med/Surg History Medical History Retention of urine, unspecified Pressure ulcer of sacral region, stage 4 Obsessive compulsive disorder Muscle wasting and atrophy, not elsewhere classified, other site Acute kidney injury Swelling of right upper extremity Atrial flutter History of partial replacement of left hip joint using bipolar prosthesis (04/09/23) History of COVID-2019--mild symptoms, no symptoms now On home oxygen therapy 2L n/c prn sob Vitamin D deficiency Fluid retention Right sided sciatica Pneumonia hx of, not recently AV fistula September 07, 2020 > right wrist > not on dialysis at present Atrial fibrillation and flutter Dizziness Generalized weakness Syncope PAF (paroxysmal atrial fibrillation) Atrial fibrillation, new onset dx August 2020> cardioversions x2. on eliquis > follows Dr. Fontaine Cardiac murmur Mild TR noted on 2019 echo. 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 Per [facility] pulm 12/2019, "fairly stable from a pulmonary perspective. She is short of breath with any exertion, however a large part of this is likely related to obesity. Pulmonary functions done 1 year ago showed only a mild restrictive pattern. Diffusion was slightly decreased to 66%. One year ago she did have a normal arterial blood gas with no evidence of CO2 retention." Using PRN 3L, mostly using with exertion, not using every day. Diastolic congestive heart failure Euvolemic on exam at [facility] 09/02/20. follows with Dr. Fontaine Diabetic retinopathy, nonproliferative Diabetic peripheral neuropathy Claustrophobia Chronic rhinitis Arthralgia of multiple sites Anxiety and depression Chronic low back pain Hypothyroidism Hyperlipemia Hypertension Diabetes IDDM Surgical History History of incision and drainage (05/06/23) Incision and Drainage, Debridement Sacral Wound - Yasmany Langley DO History of bilateral cataract extraction History of cardioversion x2 Status post gastric bypass for obesity 09/14/2020- Dr. Ash- [facility] History of arthroscopy x2 left shoulder History of total shoulder replacement LEFT 07/19 2015 fracture History of esophagogastroduodenoscopy (EGD) History of colonoscopy History of dermoid cyst excision S/P tooth extraction History of mandibular surgery FULL ROM H/O section x1 Hx of cholecystectomy Family History Daughter Multiple allergies Bipolar disorder Aunt Breast cancer Mother Diabetes Heart disease Hyperthyroidism Hypertension Father Gastric cancer Hearing loss Myocardial infarction Grandfather Heart disease Family/Other Osteoporosis Lung cancer Hypertension Stroke Brother Hypertension Grandmother Ovarian cancer Sister Diabetes Migraine Other No family history of adverse response to anesthesia Denies family history of Prostate cancer Colorectal cancer Uterine cancer Social History Smoking Status: Never smoker Second Hand Exposure: No; Do You Dip or Chew Tobacco: No; Hx Alcohol Use: No (Unknown - Resident of [facility]) Hx Substance Use: No (Unknown - Resident of [facility]) Preferred Language: Luxembourgish Communication Ability: Effective Visual Impairment: No Limitations Stores Assistant Required: No Beliefs That Will Affect Care: None marital status: Current Living Situation: Senior Living Current Living Situation Comment: Resident of [facility] current occupational status: employed and unemployed Feels Safe at Home: Yes Childhood Exposure to Second-Hand Smoke: Yes Dental Care, Regularly: Yes Physical Activity Frequency: Does not Exercise Seatbelt Use: always Sunscreen Use: Yes Assistive Devices: Walker Review of Systems All systems reviewed & are unremarkable except as noted in HPI & below. Physical Exam .alert and oriented. NAD Left leg: complains of hip pain with motion of her hip. The incision is erythematous and has purulent drainage. She can dorsiflex and plantarflex. afebrile. Results & Data Results & Data Laboratory Results . Diagnostic Findings . PG Care Time/CCT Total # of Minutes Spent Total Time Spent with Patient: Total time spent is greater than 50% in coordination of care (as documented) at patient's floor/unit and/or counseling patient: Coding Level of Care Code 52619 IN/OBS CONSULT LVL 3,45M Diagnoses Left hip postoperative wound infection T81.49XA
--- NOTE | 2023-07-30 20:20 | CT Scan Report ---
CT hip LT wo con CLINICAL HISTORY: hip pain/drainage TECHNIQUE: Multidetector row helical CT of the left hip was performed without intravenous contrast. C oronal and sagittal reformations were obtained. Automated dose lowering techniques and/or adjustment according to patient size were utilized for this examination. CT DOSE: 915.99 mGy.cm Comparison: Comparison is made to CT left hip 04/08/2023 FINDINGS: The osseous structures are without fracture or dislocation. Left hip total arthroplasty is seen. Heal ing changes are seen about the previously noted fracture. No joint effusion is seen. Posterior soft tissue swelling is noted. IMPRESSION: Posterior soft tissue swelling is seen without evidence of drainable fluid collection. Expected posts urgical changes status post femoral neck fixation. ACT 112: Negative or not required by law. Electronically signed by: Farhan Higgins M.D. 07/30/2023 8:18 PM
--- NOTE | 2023-07-30 22:20 | Hospitalist Progress Note ---
Date of Service July 30, 2023 Assessment & Plan (1) Weakness: Plan: 62yo female presenting from home with diffuse generalized weakness, inability to get up and ambulate in her home. She recently had a prolonged hospital stay followed by a long stay in a rehabilitation facility. Suspect overall deconditioning. No focal weakness on exam. -Admit to medical with telemetry -PT/OT evaluation -Fall precautions Concern over a postoperative left hip infection. Will obtain images consult ortho and monitor. -Continue pain control with Oxycodone PRN - patient is on many potentially sedating agents - caution with coadministration (2) Elevated troponin: Plan: Patient denies chest pain. No acute ischemic changes on EKG. -Troponin mildly elevated at 41.6, improved now to 38.2 -Telemetry monitoring (3) Elevated CK: Plan: Mildly elevated CK at 753 -IVF with LR at 125mL/hr x 2L -Repeat CK in AM (4) Sacral wound: Plan: Patient with known sacral wound. She reports home nursing changes dressing and bandages the wound daily. No reported pain or drainage. -Turn and position q 2 hours -Wound Care (5) Hypercholesterolemia: Plan: Chronic. Stable -Continue Atorvastatin 80mg po qHS (6) Atrial fibrillation: Plan: Paroxysmal s/p cardioversion in 2020. Presently in NSR with rate of 88bpm. Patient was previously seen by HF in May 2023 - note reports that Metoprolol has been DCd and Eliquis is on hold due to acute GIB. Per review of her DC medications from rehab - she is on Diltiazem and Metoprolol, no anticoagulation -Continue Diltiazem -Continue Metoprolol -Consider resuming anticoagulation (7) Type 2 diabetes mellitus: Plan: Chronic. Last HgbA1C on 03/06/23=7 -ISS -Goal blood sugar 110 - 140 -Continue Lyrica PRN (8) Obsessive compulsive disorder: Plan: Chronic -Continue Fluvoxamine -Continue Buspirone (9) HTN (hypertension): Plan: Blood pressure mildly elevated -Continue Metoprolol -Will DC Amlodipine as patient is already on Diltiazem Admission and Anticipated Discharge Date Admission Date: July 29, 2023 Subjective Patient reports drainage from her left hip. Patient is getting a ct scan. Review of Systems Review of Systems: All systems reviewed & are unremarkable except as noted in HPI & below Physical Exam Physical Exam: General: patient resting comfortably, NAD, non-toxic in appearance, AA&O x 4 Skin: warm, dry, intact, no rashes or lesions Ext: warm, 2+ pulses in UE/LE bilaterally, serosangeuinoeus drainage of left hip Neuro: nonfocal, patient AA&O x 4 Results & Data Results & Data Vital Signs (Past 12 Hours) Vital Signs Temp Pulse Pulse Resp BP Pulse Ox O2 Del Method 07/30/23 19:48 37.1 C 65 18 162/89 H 97 Room Air 07/30/23 15:12 37.0 C 83 18 128/77 91 Room Air 07/30/23 13:59 87 PG Care Time/CCT Total # of Minutes Spent Total Time Spent with Patient: Total time spent is greater than 50% in coordination of care (as documented) at patient's floor/unit and/or counseling patient: Coding Level of Care Code 19729 SUB INP/OBS CARE 3/50MIN Diagnoses Weakness R53.1 Elevated troponin R79.89 Elevated CK R74.8 Sacral wound S31.000A Hypercholesterolemia E78.00 Atrial fibrillation I48.91 Atrial fibrillation type: unspecified Type 2 diabetes mellitus with other specified complication, with long-term current 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 E11.69; Z79.4 Diabetes mellitus complication status: with other specified complication Diabetes mellitus snf insulin use: with middle or intermediate school principal use Obsessive compulsive disorder F42.9 HTN (hypertension) I10 (6) Atrial fibrillation Atrial fibrillation type: unspecified Qualified Code(s): I48.91 - Unspecified atrial fibrillation (7) Type 2 diabetes mellitus Diabetes mellitus complication status: with other specified complication Diabetes mellitus middle or intermediate school principal insulin use: with middle or intermediate school principal use Qualified Code(s): E11.69 - Type 2 diabetes mellitus with other specified complication; Z79.4 - long term care phlebotomist (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
--- NOTE | 2023-07-31 05:39 | Electrocardiogram Report ---
Test Reason : Blood Pressure : / mmHG Vent. Rate : 088 BPM Atrial Rate : 088 BPM P-R Int : 148 ms QRS Dur : 090 ms QT Int : 336 ms P-R-T Axes : 105 -47 006 degrees QTc Int : 406 ms Atrial flutter Low voltage QRS Left anterior fascicular block Possible Anterolateral infarct (cited on or before 29-JUL-2023) Abnormal ECG When compared with ECG of 05-MAY-2023 09:43, Left anterior fascicular block is now Present Confirmed by Amaury Perry ([id number]) on 07/31/2023 5:39:37 AM Referred By: Confirmed By:Amaury Perry
--- NOTE | 2023-07-31 07:28 | Anesthesiology Consultation ---
Date of Service July 31, 2023 Assessment & Plan Chart Review Chart Review: Acceptable Risk for Surgery Consults Requested none History Surgery Operation Date: 07/31/23 14:20 Proposed Procedures p Left Hip Incision and Drainage and Head Exchange - Eric Childress MD Height/Weight Height: 5 ft 7 in Weight: 108 kg Allergies Allergy/AdvReac Type Severity Reaction Status Date / Time Iodinated Contrast Media Allergy Unknown Unknown Verified 07/29/23 16:37 [Iodinated Contrast- Oral and IV Dye] promethazine AdvReac Intermediate BROKEN Verified 07/29/23 16:37 CAPILLARIES FACE Medications Home Medications Medication Instructions Recorded Confirmed Last Taken lorazepam 1 mg tablet (Ativan) 1 mg PO BID PRN anxiety 03/24/19 07/29/23 07/09/23 buspirone 15 mg tablet 15 mg PO BID 11/28/20 07/29/23 07/29/23 08:00 lancets (OneTouch UltraSoft #400 ea 04/12/21 07/24/23 Unknown Lancets) trazodone 100 mg tablet 100 mg PO HS 07/09/22 07/29/23 07/28/23 cyanocobalamin (vitamin B-12) 2,500 mcg PO 2XWK 10/08/22 07/29/23 07/25/23 2,500 mcg tablet blood sugar diagnostic #300 ea 12/10/22 07/24/23 Unknown amlodipine 10 mg tablet (Norvasc) 5 mg PO QAM 12/20/22 07/29/23 07/29/23 ondansetron 4 mg disintegrating 4 mg PO Q8H PRN nausea and 12/21/22 07/29/23 Unknown tablet vomiting #14 tabs atorvastatin 80 mg tablet 80 mg PO HS #90 tabs 12/24/22 07/29/23 07/29/23 levothyroxine 50 mcg tablet 50 mcg PO DAILYBB #90 tabs 01/23/23 07/29/23 07/29/23 insulin syringe-needle U-100 0.5 #400 ea 02/05/23 07/24/23 Unknown mL 31 gauge x 5/16" (Easy Comfort Insulin Syringe) folic acid 1 mg tablet 1 mg PO QAM #90 tabs 02/22/23 07/29/23 07/29/23 fluvoxamine 100 mg tablet 150 mg PO BID 04/08/23 07/29/23 07/29/23 08:00 epoetin fernando-epbx 40,000 unit/mL 40,000 unit subcut UD 28 days #28 07/01/23 07/29/23 Unknown injection solution (Retacrit) mL diltiazem HCl 180 mg 180 mg PO DAILY 07/04/23 07/29/23 07/29/23 tablet,extended release 24 hr docusate sodium 100 mg capsule 100 mg PO BID PRN Constipation 07/04/23 07/29/23 Unknown (Colace) fenofibrate 160 mg tablet 160 mg PO QAM 07/04/23 07/29/23 07/29/23 pregabalin 75 mg capsule (Lyrica) 75 mg PO BID 07/04/23 07/29/23 07/29/23 08:00 pantoprazole 40 mg tablet,delayed 40 mg PO BID #60 tabs 07/09/23 07/29/2306/09 08:00 release sucralfate 100 mg/mL oral 10 ml PO QID 14 days #560 mL 07/19/23 07/29/23 Unknown suspension (Carafate) bumetanide 2 mg tablet 2 mg PO QAM 07/24/23 07/29/23 07/29/23 ergocalciferol (vitamin D2) 1,250 50,000 unit PO WK 07/24/23 07/29/23 07/28/23 mcg (50,000 unit) capsule (Vitamin D2) nystatin 100,000 unit/gram topical 1 applic topical DAILY PRN skin 07/24/23 07/29/23 Unknown powder irritation #60 grams oxycodone 5 mg tablet 5 mg PO Q6H PRN pain #40 tabs 07/24/23 07/29/23 Unknown metoprolol succinate 25 mg 25 mg PO DAILY #90 tabs 07/26/23 07/29/23 07/29/23 tablet,extended release 24 hr baclofen 10 mg tablet 5 mg PO Q8H PRN MUSCLE SPASMS 07/29/23 07/29/23 Unknown insulin lispro 100 unit/mL 5 - 8 unit subcut TIDM 07/29/23 07/29/23 Unknown subcutaneous solution multivitamin with iron-mineral 1 tab PO DAILY 07/29/23 07/29/23 07/29/23 Active Medications Generic Name Dose Route Start Last Admin Trade Name Nomiq PRN Reason Stop Dose Admin Atorvastatin Calcium 80 mg 07/29/23 21:55 07/30/23 20:50 Atorvastatin 40 Mg Tab PO 08/28/23 21:54 80 mg HS JOHNATHON Administration Buspirone HCl 15 mg 07/29/23 21:55 07/30/23 20:50 Buspirone 15 Mg Tab PO 08/28/23 21:54 15 mg BID JOHNATHON Administration Diltiazem HCl 180 mg 07/30/23 09:00 07/30/23 10:12 Diltiazem Hcl 180 Mg Capcr PO 08/29/23 08:59 180 mg DAILY JOHNATHON Administration Docusate Sodium 100 mg 07/29/23 21:55 07/30/23 20:49 Docusate Sodium 100 Mg Cap PO 08/28/23 21:54 100 mg BID JOHNATHON Administration Fluvoxamine Maleate 150 mg 07/29/23 21:55 07/30/23 20:49 Fluvoxamine Maleate 50 Mg Tab PO 08/28/23 21:54 150 mg BID JOHNATHON Administration Folic Acid 1 mg 07/30/23 09:00 07/30/23 10:12 Folic Acid 1 Mg Tab PO 08/29/23 08:59 1 mg QAM JOHNATHON Administration Insulin Aspart 0 units 07/29/23 21:55 07/30/23 20:49 Insulin Aspart Per Unit Charge SC 08/28/23 21:54 Not Given ACHS JOHNATHON Levothyroxine Sodium 50 mcg 07/30/23 06:30 07/31/23 06:14 Levothyroxine Sodium 50 Mcg Tablet PO 08/29/23 06:29 50 mcg DAILYBB JOHNATHON Administration Metoprolol Succinate 25 mg 07/30/23 09:00 07/30/23 10:12 Metoprolol Succ 25mg Ext Rel Tab PO 08/29/23 08:59 25 mg DAILY JOHNATHON Administration Oxycodone HCl 5 mg 07/29/23 21:55 07/30/23 00:28 Oxycodone Hcl Ir 5 Mg Tab (Immediate Release) PO 08/12/23 21:54 5 mg Q4H PRN Administration pain Pantoprazole Sodium 40 mg 07/29/23 21:55 07/30/23 20:50 Pantoprazole 40 Mg Tab PO 03/13/24 21:54 40 mg BID JOHNATHON Administration Pregabalin 75 mg 07/29/23 21:55 07/30/23 20:50 Pregabalin 75 Mg Cap PO 08/28/23 21:54 75 mg BID JOHNATHON Administration Sucralfate 1 gm 07/29/23 21:55 07/30/23 20:49 Sucralfate 1 Gm/10 Ml Udc PO 08/28/23 21:54 1 gm QID JOHNATHON Administration Trazodone HCl 100 mg 07/29/23 21:55 07/30/23 20:50 Trazodone Hcl 100 Mg Tab PO 08/28/23 21:54 100 mg HS JOHNATHON Administration Past Medical History Medical History Retention of urine, unspecified Pressure ulcer of sacral region, stage 4 Obsessive compulsive disorder Muscle wasting and atrophy, not elsewhere classified, other site Acute kidney injury Swelling of right upper extremity Atrial flutter History of partial replacement of left hip joint using bipolar prosthesis (04/09/23) History of COVID-2019--mild symptoms, no symptoms now On home oxygen therapy 2L n/c prn sob Vitamin D deficiency Fluid retention Right sided sciatica Pneumonia hx of, not recently AV fistula September 07, 2020 > right wrist > not on dialysis at present Atrial fibrillation and flutter Dizziness Generalized weakness Syncope PAF (paroxysmal atrial fibrillation) Atrial fibrillation, new onset dx August 2020> cardioversions x2. on eliquis > follows Dr. Fontaine Cardiac murmur Mild TR noted on 2019 echo. 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 Per [facility] pulm 12/2019, "fairly stable from a pulmonary perspective. She is short of breath with any exertion, however a large part of this is likely related to obesity. Pulmonary functions done 1 year ago showed only a mild restrictive pattern. Diffusion was slightly decreased to 66%. One year ago she did have a normal arterial blood gas with no evidence of CO2 retention." Using PRN 3L, mostly using with exertion, not using every day. Diastolic congestive heart failure Euvolemic on exam at [facility] 09/02/20. follows with Dr. Fontaine Diabetic retinopathy, nonproliferative Diabetic peripheral neuropathy Claustrophobia Chronic rhinitis Arthralgia of multiple sites Anxiety and depression Chronic low back pain Hypothyroidism Hyperlipemia Hypertension Diabetes IDDM Past Family History Family History Daughter Multiple allergies Bipolar disorder Aunt Breast cancer Mother Diabetes Heart disease Hyperthyroidism Hypertension Father Gastric cancer Hearing loss Myocardial infarction Grandfather Heart disease Family/Other Osteoporosis Lung cancer Hypertension Stroke Brother Hypertension Grandmother Ovarian cancer Sister Diabetes Migraine Other No family history of adverse response to anesthesia Denies family history of Prostate cancer Colorectal cancer Uterine cancer Past Surgical History Surgical History History of incision and drainage (05/06/23) Incision and Drainage, Debridement Sacral Wound - Yasmany Langley DO History of bilateral cataract extraction History of cardioversion x2 Status post gastric bypass for obesity 09/14/2020- Dr. Ash- [facility] History of arthroscopy x2 left shoulder History of total shoulder replacement LEFT 07/19 2015 fracture History of esophagogastroduodenoscopy (EGD) History of colonoscopy History of dermoid cyst excision S/P tooth extraction History of mandibular surgery FULL ROM H/O section x1 Hx of cholecystectomy Social History Smoking Status: Never smoker Do You Dip or Chew Tobacco: No Hx Alcohol Use: No (Unknown - Resident of [facility]) Alcohol type: beer alcohol intake frequency: holidays/special occasions only Hx Substance Use: No (Unknown - Resident of [facility]) substance use type: does not use Physical Exam Vital Signs Last Vital Signs Temp 36.6 C 07/31/23 07:26 Pulse 77 07/31/23 07:26 Resp 18 07/31/23 07:26 BP 155/94 H 07/31/23 07:26 Pulse Ox 96 07/31/23 07:26 O2 Del Method Room Air 07/31/23 07:26 Testing Laboratory Results PT 13.1 Seconds (9.0-12.0) H 07/29/23 18:00 INR 1.2 (0.9-1.1) H 07/29/23 18:00 APTT 29 Seconds (21-31) 07/29/23 18:00 Urine Color Yellow 07/29/23 18:00 Urine Appearance Slightly Cloudy (Clear) 07/29/23 18:00 Urine pH 7.0 (4.5-7.5) 07/29/23 18:00 Ur Specific Alden 1.010 (1.000-1.030) 07/29/23 18:00 Urine Protein Trace (Negative) H 07/29/23 18:00 Urine Glucose (UA) Negative (Negative) 07/29/23 18:00 Urine Ketones Negative (Negative) 07/29/23 18:00 Urine Nitrite Negative (Negative) 07/29/23 18:00 Ur Leukocyte Esterase Trace (Negative) H 07/29/23 18:00 Urine RBC 0-4 /hpf (0-4) 07/29/23 18:00 Urine WBC 0-5 /hpf (0-5) 07/29/23 18:00 Ur Epithelial Cells 5-10 /lpf (0-5) H 07/29/23 18:00 07/29/23 18:00 Urine Culture - Preliminary Urine,Clean Catch Klebsiella pneumoniae 07/29/23 18:00 Aerobic Blood Culture - Preliminary Blood No growth in Aerobic bottle after 24 hours. Anaerobic Blood Culture - Final 07/29/23 17:51 Aerobic Blood Culture - Preliminary Blood No growth in Aerobic bottle after 24 hours. Anaerobic Blood Culture - Final 07/30/23 17:20 Gram Stain - Final Hip,Left 07/30/23 17:20 Gram Stain - Final Hip,Left 07/30/23 10:30 Gram Stain - Final Hip,Left 07/30/23 20:11 POC Glucose 138 H
[2023-07-31 08:04] LABS: Hematocrit (blood only) 36.1 % (37.0-47.0); Hemoglobin 11.2 g/dl (12.0-16.0); Mean Corpuscular Hemoglobin 26.2 pg (25.0-34.0); Mean Corpuscular Volume 84.3 fL (80.0-100.0); Mean Platelet Volume 12.3 fL (9.4-12.4); Platelet Count 174 K/uL (130-400); RDW Coefficient of Variation 15.4 % (11.5-14.5); RDW Standard Deviation 47.8 fL (36.4-46.3); Red Blood Count 4.28 M/uL (4.20-5.40); White Blood Count 5.24 K/ul (4.8-10.8)
[2023-07-31 08:56] LABS: Calcium 7.8 mg/dl (8.6-10.3); Potassium 3.8 mmol/L (3.5-5.1)
--- NOTE | 2023-07-31 09:00 | Orthopedic Progress Note ---
Date of Service July 31, 2023 Assessment & Plan (1) Left hip postoperative wound infection: She is still having some drainage. The aspiration we sent off last evening shows no organisms, culture still pending. We will cancel surgery today, cancel npo and let her eat. Will continue to follow clinically and the culture results. We would like to give her vancomycin IV. Her creatinine has been elevated and is pending today. Will discuss with Dr. Childress. Subjective . 62 year old patient 4 months s/p left him hemiarthroplasty for fracture, admitted with weakness, and some drainage from left hip. Her hip feels okay to her today. Not really having pain. Review of Systems All systems reviewed & are unremarkable except as noted in HPI & below. Physical Exam . alert and oriented. NAD Left hip: incision with some erythema and serous drainage. There is some swelling around the lateral hip. She can dorsiflex and plantarflex. NVI Results & Data Results & Data Laboratory Results . Diagnostic Findings . PG Care Time/CCT Total # of Minutes Spent Total Time Spent with Patient: Total time spent is greater than 50% in coordination of care (as documented) at patient's floor/unit and/or counseling patient: Coding Level of Care Code 31938 SUB INP/OBS CARE 2/35MIN Diagnoses Left hip postoperative wound infection T81.49XA
[2023-07-31 09:02] LABS: BUN Creatinine Ratio 17.7 (10-20); Creatinine Clr Calc Pharmacy 39.7 ml/min; Est GFR (African American) 33.7 ml/min
[2023-07-31] MEDS ORDERED: VANCOMYCIN CONSULT ACTIVE PRN (10:50)
[2023-07-31] MEDS ORDERED: VANCOMYCIN HCL 1,000 MG in SODIUM CHLORIDE 0.9% 500 ML IV SCH (11:00)
[2023-07-31] MEDS: VANCOMYCIN HCL 2,000 MG in SODIUM CHLORIDE 0.9% 500 ML IV ONE (11:48)
--- NOTE | 2023-07-31 12:16 | Pharmacy Report ---
Pharmacy PK ABX Note - Date of Service July 31, 2023 - Assessment and Plan Assessment 62 year old F receiving vancomycin for treatment of postoperative left hip infection (~4 months from replacement). Pertinent microbiologic data includes: hip culture growing staph species (further identification and sensitivities pending). Day # 1 of antimicrobial therapy. Plan Vancomycin * Loading dose: 2000 mg IV x 1 * Due to elevated serum creatintine, will dose further vancomycin per levels to better assess vancomycin clearance. * Random level ordered for: 08/01 with AM labs Pharmacy will continue to follow and will adjust dose/frequency as necessary. Thank you. Pharmacy has transitioned to AUC monitoring for vancomycin. AUC/SHAYNE is the preferred PK/PD target and is associated with decreased risk of nephrotoxicity compared to traditional trough targets.
--- NOTE | 2023-07-31 23:28 | Hospitalist Progress Note ---
Date of Service July 31, 2023 Assessment & Plan (1) Left hip postoperative wound infection: Plan: Patient came in with weakness however on 07/30 Patient started having drainage from left lateral pelvic region. wound culture obtained growing Stap consulted ortho. Concern over a postoperative left hip infection. continue vancomycin (2) Weakness: Plan: Severe muscular deconditioning -Continue pain control with Oxycodone PRN - patient is on many potentially sedating agents - caution with coadministration (3) Elevated troponin: Plan: Patient denies chest pain. No acute ischemic changes on EKG. -Troponin mildly elevated at 41.6, improved now to 38.2 -Telemetry monitoring (4) Elevated CK: Plan: Mildly elevated CK at 753 (5) Sacral wound: Plan: Pressure ulcer/injury of sacrum, stage 3, POA Patient with known sacral wound. She reports home nursing changes dressing and bandages the wound daily. No reported pain or drainage. -Turn and position q 2 hours -Wound Care (6) Hypercholesterolemia: Plan: Chronic. Stable -Continue Atorvastatin 80mg po qHS (7) Atrial fibrillation: Plan: Paroxysmal s/p cardioversion in 2020. Presently in NSR with rate of 88bpm. Patient was previously seen by HF in May 2023 - note reports that Metoprolol has been DCd and Eliquis is on hold due to acute GIB. Per review of her DC medications from rehab - she is on Diltiazem and Metoprolol, no anticoagu lation -Continue Diltiazem -Continue Metoprolol -Consider resuming anticoagulation (8) Type 2 diabetes mellitus: Plan: Chronic. Last HgbA1C on 03/06/23=7 -ISS -Goal blood sugar 110 - 140 -Continue Lyrica PRN (9) Obsessive compulsive disorder: Plan: Chronic -Continue Fluvoxamine -Continue Buspirone (10) HTN (hypertension): Plan: Blood pressure mildly elevated -Continue Metoprolol -Will DC Amlodipine as patient is already on Diltiazem Admission and Anticipated Discharge Date Admission Date: July 29, 2023 Subjective Patient reports no new symptoms. Review of Systems Review of Systems: All systems reviewed & are unremarkable except as noted in HPI & below Physical Exam Physical Exam: General: patient resting comfortably, NAD, non-toxic in appearance, AA&O x 4 Skin: warm, dry, intact, no rashes or lesions Ext: warm, 2+ pulses in UE/LE bilaterally, serosangeuinoeus drainage of left h ip Neuro: nonfocal, patient AA&O x 4 Results & Data Results & Data Vital Signs (Past 12 Hours) Vital Signs Temp Pulse Pulse Resp BP Pulse Ox O2 Del Method 07/31/23 19:45 Room Air 07/31/23 19:38 36.9 C 63 18 152/80 H 95 Room Air 07/31/23 16:14 66 07/31/23 15:01 37.0 C 62 18 138/76 94 Room Air PG Care Time/CCT Total # of Minutes Spent Total Time Spent with Patient: Total time spent is greater than 50% in coordination of care (as documented) at patient's floor/unit and/or counseling patient: Coding Level of Care Code 32781 SUB INP/OBS CARE 3/50MIN Diagnoses Left hip postoperative wound infection T81.49XA Weakness R53.1 Elevated troponin R79.89 Elevated CK R74.8 Sacral wound S31.000A Hypercholesterolemia E78.00 Atrial fibrillation I48.91 Atrial fibrillation type: unspecified Type 2 diabetes mellitus with other specified complication, with long-term current 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 E11.69; Z79.4 Diabetes mellitus complication status: with other specified complication Diabetes mellitus terminal system operator insulin use: with assisted use Obsessive compulsive disorder F42.9 HTN (hypertension) I10 (7) Atrial fibrillation Atrial fibrillation type: unspecified Qualified Code(s): I48.91 - Unspecified atrial fibrillation (8) Type 2 diabetes mellitus Diabetes mellitus complication status: with other specified complication Diabetes mellitus terminal system operator insulin use: with terminal system operator use Qualified Code(s): E11.69 - Type 2 diabetes mellitus with other specified complication; Z79.4 - terminal press operator (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
--- NOTE | 2023-08-01 07:55 | Surgery Progress Note ---
Date of Service August 01, 2023 Assessment & Plan (1) Left hip postoperative wound infection: Plan: 62-year-old female 4 months out from cemented bipolar hip arthroplasty with some mild left lateral hip wound issues. Looks to be some low-level what looks to be mostly superficial infection at this point. Seems to be responding to management. Would like to avoid taking her back to the operating room. Plan: At this point we will wait for the final culture results to come out. Will continue the antibiotics for now. Hopefully convert to p.o. antibiotics. Routine wound care. The current plan is for nonoperative management. Any orthopedic questions can be directed at [phone]. She can weight-bear as tolerated. There is no orthopedic restriction. Routine wound care. Admission and Anticipated Discharge Date Admission Date: July 29, 2023 Subjective 62-year-old female 4 months out from a left cemented bipolar hip arthroplasty admitted for constitutional symptoms of fatigue and malaise with slight bit of eye drainage from the hip area incision. She reports no particular pain. Physical Exam Physical Exam: Physical examination of left hip reveals the small and wound area to be open covered with a dressing. I fairly minimal drainage. I really not much swelling. The swelling seems to be improved. No deep swelling appreciated. Hips located. She is neurologically intact Results & Data Vital Signs (Past 12 Hours) Vital Signs Temp Pulse Pulse Resp BP Pulse Ox O2 Del Method 08/01/23 04:06 37 C 59 L 16 144/69 H 95 Room Air 08/01/23 00:04 62 Laboratory Results Culture results are showing pinpoint growth. PG Care Time/CCT Total # of Minutes Spent Total Time Spent with Patient: Total time spent is greater than 50% in coordination of care (as documented) at patient's floor/unit and/or counseling patient: Coding Level of Care Code 21023 SUB INP/OBS CARE 2/35MIN Diagnoses Left hip postoperative wound infection T81.49XA
[2023-08-01 08:13] LABS: Hematocrit (blood only) 37.7 % (37.0-47.0); Hemoglobin 11.7 g/dl (12.0-16.0); Mean Corpuscular Hemoglobin 26.4 pg (25.0-34.0); Mean Corpuscular Volume 84.9 fL (80.0-100.0); Mean Platelet Volume 11.6 fL (9.4-12.4); Platelet Count 152 K/uL (130-400); RDW Coefficient of Variation 15.2 % (11.5-14.5); RDW Standard Deviation 47.4 fL (36.4-46.3); Red Blood Count 4.44 M/uL (4.20-5.40); White Blood Count 6.54 K/ul (4.8-10.8)
[2023-08-01 08:24] LABS: BUN Creatinine Ratio 16.9 (10-20); C Reactive Protein 1.25 mg/dl (0-0.5); Calcium 7.8 mg/dl (8.6-10.3); Creatinine Clr Calc Pharmacy 37.7 ml/min; Est GFR (African American) 31.9 ml/min; Est GFR (Non-African American) 27.6 ml/min; Potassium 3.9 mmol/L (3.5-5.1)
[2023-08-01] MEDS: VANCOMYCIN HCL 1,000 MG in SODIUM CHLORIDE 0.9% 250 ML IV SCH (09:37)
--- NOTE | 2023-08-01 10:59 | Pharmacy Report ---
Pharmacy PK ABX Note - Date of Service August 01, 2023 - Assessment and Plan Assessment 08/01: Reviewed vancomycin level, ok to redose today, will begin scheduled regimen as patient's renal function is improved over baseline. Will order an early trough for tomorrow AM 07/31: 62 year old F receiving vancomycin for treatment of postoperative left hip infection (~4 months from replacement). Pertinent microbiologic data includes: hip culture growing staph species (further identification and sensitivities pending). Day # 1 of antimicrobial therapy. Plan Vancomycin * Maintenance dose: vancomycin 1000mg Q24H * Regimen is predicted to achieve target AUC/SHAYNE of 400-600 mg/L.hr * Trough level ordered for 08/02 @ 0930 Pharmacy will continue to follow and will adjust dose/frequency as necessary. Thank you. Pharmacy has transitioned to AUC monitoring for vancomycin. AUC/SHAYNE is the preferred PK/PD target and is associated with decreased risk of nephrotoxicity compared to traditional trough targets.
[2023-08-01] MEDS ORDERED: MoRPHine SULFATE 2 MG/ML CARP IV PRN (18:06)
--- NOTE | 2023-08-01 18:21 | Hospitalist Progress Note ---
Date of Service August 01, 2023 Assessment & Plan (1) Left hip postoperative wound infection: Plan: Patient came in with weakness, pain and drainage from left lateral hip scar wound culture obtained growing corynebacteria in 2 cultures and one mssa, will have intra op cultures blood cultures negative at this time consulted ortho, washout 08/01 Likely will need ID consult continue vancomycin (2) Weakness: Plan: Severe muscular deconditioning -Continue pain control with Oxycodone PRN - patient is on many potentially sedating agents - caution with coadministration (3) Elevated troponin: Plan: Patient denies chest pain. No acute ischemic changes on EKG. -Troponin mildly elevated at 41.6, improved now to 38.2 -Telemetry monitoring (4) Elevated CK: Plan: Mildly elevated CK at 753, likely from sacral decubitus poa (5) Sacral wound: Plan: Pressure ulcer/injury of sacrum, stage 3, POA Patient with known sacral wound. She reports home nursing changes dressing and bandages the wound daily. No reported pain or drainage. -Turn and position q 2 hours -Wound Care follwoing (6) Hypercholesterolemia: Plan: Chronic. Stable -Continue Atorvastatin 80mg po qHS (7) Atrial fibrillation: Plan: Paroxysmal s/p cardioversion in 2020. Presently in NSR with rate of 88bpm. Patient was previously seen by HF in May 2023 - DC medications from rehab - she is on Diltiazem and Metoprolol, no a nticoagulation -Continue Diltiazem -Continue Metoprolol -Consider resuming anticoagulation, once postoperative stability (8) Type 2 diabetes mellitus: Plan: Chronic. Last HgbA1C on 03/06/23=7 -ISS -Goal blood sugar 110 - 140 -Continue Lyrica PRN (9) Obsessive compulsive disorder: Plan: Chronic -Continue Fluvoxamine -Continue Buspirone (10) HTN (hypertension): Plan: Blood pressure mildly elevated -Continue Metoprolol -Will DC Amlodipine as patient is already on Diltiazem Admission and Anticipated Discharge Date Admission Date: July 29, 2023 Subjective pt has pain and leg weakness of left hip, also with pain at site of sacral decubitus ulcer poa, for washout and poly exchange of recent prosthetic hip 07/31 Physical Exam Physical Exam: pt is with mild distress cardiac has murmur but has Aortic sclerosis on Echo from 22 lungs are clear decubitus ulcer is pictured from wound care Results & Data Results & Data Vital Signs (Past 12 Hours) Vital Signs Temp Pulse Resp BP Pulse Ox O2 Del Method 08/01/23 15:30 98.4 F 64 20 117/72 97 Room Air 08/01/23 10:57 98.1 F 88 20 132/86 97 Room Air 08/01/23 07:56 98.2 F 79 20 139/83 95 Room Air Laboratory Results reviewed cultures reviewed cbc reviewed chemistry PG Care Time/CCT Total # of Minutes Spent Total Time Spent with Patient: Total time spent is greater than 50% in coordination of care (as documented) at patient's floor/unit and/or counseling patient: Coding Level of Care Code 38810 SUB INP/OBS CARE 3/50MIN Diagnoses Left hip postoperative wound infection T81.49XA Weakness R53.1 Elevated troponin R79.89 Elevated CK R74.8 Sacral wound S31.000A Hypercholesterolemia E78.00 Atrial fibrillation I48.91 Atrial fibrillation type: unspecified Type 2 diabetes mellitus with other specified complication, with long-term current 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 E11.69; Z79.4 Diabetes mellitus hose sprayer insulin use: with fpc use Diabetes mellitus complication status: with other specified complication Obsessive compulsive disorder F42.9 HTN (hypertension) I10 (7) Atrial fibrillation Atrial fibrillation type: unspecified Qualified Code(s): I48.91 - Unspecified atrial fibrillation (8) Type 2 diabetes mellitus Diabetes mellitus fpc insulin use: with hose sprayer use Diabetes mellitus complication status: with other specified complication Qualified Code(s): E11.69 - Type 2 diabetes mellitus with other specified complication; Z79.4 - social services technician (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
[2023-08-01] MEDS: cefTRIAXone SODIUM 2,000 MG in DEXTROSE 5 % MINI-B 50 ML IV SCH (20:06)
[2023-08-02] MEDS: VANCOMYCIN LEVEL ONE (09:40)
[2023-08-02 10:02] LABS: Creatinine Clr Calc Pharmacy 37.5 ml/min; Est GFR (African American) 31.7 ml/min; Est GFR (Non-African American) 27.4 ml/min
[2023-08-02] MEDS: oxyCODONE HCL IR 5 MG TAB (IMMEDIATE RELEASE) PO PRN (10:11)
--- NOTE | 2023-08-02 10:42 | Pharmacy Report ---
Pharmacy PK ABX Note - Date of Service August 02, 2023 - Assessment and Plan Assessment 08/02: Today is day 3 of IV Vancomycin therapy. Patient is on Vancomycin 1 gm IV q24h. Trough level obtained today is 12.4 mcg/ml at 09:17 AM. Hip cultures grew MSSA and Corynebacterium sp (quantity rare). Urine culture grew Klebsiella pneumoniae resistant to penicillin derivatives but sensitive to all else including Cephalosporins. Discussed with Dr. Appiah, about de-escalating to Cefazolin only which would cover both MSSA in hip and Klebsiella in urine. Concerned about Corynebacterium sp in hip. Therefore, ID consulted. 08/01: Reviewed vancomycin level, ok to redose today, will begin scheduled regimen as patient's renal function is improved over baseline. Will order an early trough for tomorrow AM 07/31: 62 year old F receiving vancomycin for treatment of postoperative left hip infection (~4 months from replacement). Pertinent microbiologic data includes: hip culture growing staph species (further identification and sensitivities pending). Day # 1 of antimicrobial therapy. Plan Vancomycin * Maintenance dose: Vancomycin 1000mg IV Q24H * Trough level obtained today resulted as 12.4 mcg/mL. This is predicted to achieve target AUC/SHAYNE of 400-600 mg/L.hr * Predicted AUC at steady state: 569 mg/L.hr * Continue Vancomycin 1000 mg IV every 24 hours * Will repeat level in the next 48-72 hours if therapy is continued and/or change in patient clinical status Pharmacy will continue to follow and will adjust dose/frequency as necessary. Thank you. Pharmacy has transitioned to AUC monitoring for vancomycin. AUC/SHAYNE is the preferred PK/PD target and is associated with decreased risk of nephrotoxicity compared to traditional trough targets.
--- NOTE | 2023-08-02 16:56 | Infectious Disease Consult ---
Date of Consultation August 02, 2023 Assessment & Plan (1) Left hip postoperative wound infection: (2) Prosthetic joint infection of left hip: (3) Sequela of Corynebacterium infection: (4) MSSA (methicillin susceptible Staphylococcus aureus) infection: (5) Chronic kidney disease, stage 4 (severe): Lucas Arellano is a 62-year-old woman with T2DM, afib, CKD, chronic sacral wound (last debrided 05/06/23), recent admission to [facility] 04/08 - 05/10/23 after fall and L femur s/p repair with L hip cemented bipolar hemiarthroplasty 04/09/23, who presents to [facility] ED on 07/29/23 with several weeks of L hip mechanical instability, and 3 weeks of groin pain, feeling like the hardware was coming out, and night sweats, found to have L hip drainage. On 07/30, superficial wound cx with MSSA; g/s with rare GNRs and mod GPCs. 07/30 L hip aspiration at two sites, which both grew Corynebacterium (and one site with mixed probable skin lesly). ID is consulted for L hip wound infection with suspected L hip PJI. Suspect L hip PJI given pts clinical symptomshad several weeks of discomfort and mechanical instability and continues to have limited flexion and external rotation limited by pain. Interestingly wound cx with MSSA and GNRs on g/s, however L hip aspiration (sterile aspiration by ortho at 2 sites) with Corynebacterium spp. It is not clear whether Corynebacterium is the main driving pathogen, though notable that pts hip aspirate grew Corynebacterium from 2 sites; however there also appears to be polymicrobial growth from the 1st Corynebacterium culture which shows low counts probable skin lesly. It remains possible that the MSSA found in her wound could be driving pathogen for PJI. Also with GNRs on gram stain of the wound though hard to interpret significance given this was a superficial wound Cx. At this time, would continue to discuss with orthopedic surgery whether any additional plan for washout and potential hardware replacement, given suspicion for PJI. If will be going for surgery, please send multiple specimens for bacterial gram stain and culture. Can continue IV vancomycin (Corynebacterium) and ceftriaxone (MSSA, GNRs of wound), while continuing to discuss possible surgical plan. If treating for PJI, anticipate course of IV antibiotics (may be up to 6 weeks), followed by PO suppressionthough final abx selection and duration will depend on surgical plan. ID Problem List: 1.L hip wound infection with c/f L hip PJI. L hip wound cx + MSSA and with GNRs on gram stain. L hip aspiration + Corynebacterium. 2.History of L femur fracture s/p repair 04/09/23 3.Chronic kidney disease Recommendations: - Can continue IV vancomycin (dosing per Rx) and ceftriaxone for now - Continue to discuss with orthopedic surgery whether any additional plan for washout and potential hardware replacement, given suspicion for PJI. If will be going for surgery, please send multiple specimens for bacterial gram stain and culture. - Per micro lab on 08/02, will add sensis onto Corynebacterium from 07/30 hip aspirate - F/u 07/30 wound and hip aspirate Cx until finalized ID will continue to follow, but does not monitor the chart or round over the weekend; covering physician can be contacted at [phone] ([facility] call center) for telephonic consultation if needed. Dr. Latanya Gilman will resume care of the ID service on Saturday. Jennifer Mooney MD, S Infectious Diseases [facility] direct line: [phone] Consultation Information Consultation was provided via telemedicine using two-way real-time interactive telecommunication between the patient and the telemedicine provider. For the duration of the visit, the provider was performing the assessment from a different facility than the patient. This includesuse of bluetooth stethoscope forauscultationperformed by the telepresenter that the telemedicine provider can hear if described in the physical exam. Supervisor Functional Testing contact information: Please call [facility] Call Center . (Phone Number For Physician Use Only) After establishing a telemedicine visit, patient was: Patient was verified with two unique identifiers, Patient/authorized rep acknowledged consent and understanding and Gave permission to continue telehealth session Time Spent with Patient: Initial => 55 min History of Present Illness Reason for Consultation: L hip wound, suspected L hip PJI Attending Physician: Jevon Appiah MD History of Present Illness Jerri Arellano is a 62-year-old woman with T2DM, afib, CKD, chronic sacral wound (last debrided 05/06/23), recent admission to [facility] 04/08 - 05/10/23 after fall and L femur s/p repair with L hip cemented bipolar hemiarthroplasty 04/09/23, who presents to [facility] ED on 07/29/23 with several weeks of L hip mechanical instability, and 3 weeks of groin pain, feeling like the hardware was coming out, and night sweats, found to have L hip drainage. On 07/30, superficial wound cx with MSSA; g/s with rare GNRs and mod GPCs. 07/30 L hip aspiration at two sites, which both grew Corynebacterium (and one site with mixed probable skin lesly). ID is consulted for L hip wound infection with suspected L hip PJI. Patient was recently admitted to [facility] from 04/08 - 05/10/23 after presenting with a fall resulting in displaced comminuted L femoral neck fracture, s/p repair 04/09/23. Also with Stage IV sacral decubitus ulcer present on admission which was debrided on 05/06/23 (wound cx + Fusobacterium). She was discharged to rehab at [facility] and was recently discharged home on 07/22/23. Patient has been feeling weak ever since she was discharged from a rehab facility 1 week prior. She feels that she was discharged too early, and was still weak and requiring wheelchair. No recent falls or trauma. Per patient, the wound from her original hip repair on 04/09/23 initially closed and healed well. However, she continued to feel mechanical weakness and instability in the L hip, and over the last 3 weeks had worsening mechanical instability and accompanied by pain. 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 She also reports that she felt like the hardware was coming out, like piece of metal was out of place and coming to surface and poking the L side of her leg, and was unable to bear weight. She reports 3 weeks of daily night sweats as well. No overt fevers or chills. At home, the pts noted the incision was starting to open up, but at the time she had no drainage. In the ED, afebrile. WBC 6. 2/13 ESR 26 CRP 1.25. Earlier this week around 07/29 07/30, the pts L hip incision opened up and started draining fluid. On 07/30, superficial wound cx with MSSA; g/s with rare GNRs and mod GPCs. On 07/30 ortho performed L hip aspiration at two sites, which both grew Corynebacterium. She was initially booked for washout with ortho but this was cancelled. Did report taking a course of abx in May for UTI when at rehab, no other abx. The pt also has a history of a L shoulder total reverse surgery in 2013 but reports this has been doing well with no pain. At the time of evaluation, with somewhat improved pain of her L hip at and groin when at rest, but still with significantly limited flexion and external rotation at the L hip limited by pain. She thinks the hardware poking out feeling has abated somewhat. Allergies Allergy/AdvReac Type Severity Reaction Status Date / Time Iodinated Contrast Media Allergy Unknown Unknown Verified 07/29/23 16:37 [Iodinated Contrast- Oral and IV Dye] promethazine AdvReac Intermediate BROKEN Verified 07/29/23 16:37 CAPILLARIES FACE Home Medications Medication Instructions Recorded Confirmed Type lorazepam 1 mg tablet (Ativan) 1 mg PO BID PRN anxiety 03/24/19 07/29/23 History buspirone 15 mg tablet 15 mg PO BID 11/28/20 07/29/23 History lancets (OneTouch UltraSoft #400 ea 04/12/21 07/24/23 Rx Lancets) trazodone 100 mg tablet 100 mg PO HS 07/09/22 07/29/23 History cyanocobalamin (vitamin B-12) 2,500 mcg PO 2XWK 10/08/22 07/29/23 History 2,500 mcg tablet blood sugar diagnostic #300 ea 12/10/22 07/24/23 Rx ondansetron 4 mg disintegrating 4 mg PO Q8H PRN nausea and 12/21/22 07/29/23 Rx tablet vomiting #14 tabs atorvastatin 80 mg tablet 80 mg PO HS #90 tabs 12/24/22 07/29/23 Rx levothyroxine 50 mcg tablet 50 mcg PO DAILYBB #90 tabs 01/23/23 07/29/23 Rx insulin syringe-needle U-100 0.5 #400 ea 02/05/23 07/24/23 Rx mL 31 gauge x 5/16" (Easy Comfort Insulin Syringe) folic acid 1 mg tablet 1 mg PO QAM #90 tabs 02/22/23 07/29/23 Rx fluvoxamine 100 mg tablet 150 mg PO BID 04/08/23 07/29/23 History epoetin fernando-epbx 40,000 unit/mL 40,000 unit subcut UD 28 days #28 07/01/23 07/29/23 Rx injection solution (Retacrit) mL diltiazem HCl 180 mg 180 mg PO DAILY 07/04/23 07/29/23 History tablet,extended release 24 hr docusate sodium 100 mg capsule 100 mg PO BID PRN Constipation 07/04/23 07/29/23 History (Colace) fenofibrate 160 mg tablet 160 mg PO QAM 07/04/23 07/29/23 History pregabalin 75 mg capsule (Lyrica) 75 mg PO BID 07/04/23 07/29/23 History pantoprazole 40 mg tablet,delayed 40 mg PO BID #60 tabs 07/09/23 07/29/23 Rx release sucralfate 100 mg/mL oral 10 ml PO QID 14 days #560 mL 07/19/23 07/29/23 Rx suspension (Carafate) bumetanide 2 mg tablet 2 mg PO QAM 07/24/23 07/29/23 History ergocalciferol (vitamin D2) 1,250 50,000 unit PO WK 07/24/23 07/29/23 History mcg (50,000 unit) capsule (Vitamin D2) nystatin 100,000 unit/gram topical 1 applic topical DAILY PRN skin 07/24/23 07/29/23 Rx powder irritation #60 grams oxycodone 5 mg tablet 5 mg PO Q6H PRN pain #40 tabs 07/24/23 07/29/23 Rx metoprolol succinate 25 mg 25 mg PO DAILY #90 tabs 07/26/23 07/29/23 Rx tablet,extended release 24 hr baclofen 10 mg tablet 5 mg PO Q8H PRN MUSCLE SPASMS 07/29/23 07/29/23 History insulin lispro 100 unit/mL 5 - 8 unit subcut TIDM 07/29/23 07/29/23 History subcutaneous solution multivitamin with iron-mineral 1 tab PO DAILY 07/29/23 07/29/23 History amlodipine 10 mg tablet (Norvasc) 5 mg (1/2 x 10 mg) PO QAM #90 tabs 07/31/23 Rx Patient History Medical History Retention of urine, unspecified Pressure ulcer of sacral region, stage 4 Obsessive compulsive disorder Muscle wasting and atrophy, not elsewhere classified, other site Acute kidney injury Swelling of right upper extremity Atrial flutter History of partial replacement of left hip joint using bipolar prosthesis (04/09/23) History of COVID-2019--mild symptoms, no symptoms now On home oxygen therapy 2L n/c prn sob Vitamin D deficiency Fluid retention Right sided sciatica Pneumonia hx of, not recently AV fistula September 07, 2020 > right wrist > not on dialysis at present Atrial fibrillation and flutter Dizziness Generalized weakness Syncope PAF (paroxysmal atrial fibrillation) Atrial fibrillation, new onset dx August 2020> cardioversions x2. on eliquis > follows Dr. Fontaine Cardiac murmur Mild TR noted on 2019 echo. 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 Per [facility] pulm 12/2019, "fairly stable from a pulmonary perspective. She is short of breath with any exertion, however a large part of this is likely related to obesity. Pulmonary functions done 1 year ago showed only a mild restrictive pattern. Diffusion was slightly decreased to 66%. One year ago she did have a normal arterial blood gas with no evidence of CO2 retention." Using PRN 3L, mostly using with exertion, not using every day. Diastolic congestive heart failure Euvolemic on exam at PAT 09/02/20. follows with Dr. Fontaine Diabetic retinopathy, nonproliferative Diabetic peripheral neuropathy Claustrophobia Chronic rhinitis Arthralgia of multiple sites Anxiety and depression Chronic low back pain Hypothyroidism Hyperlipemia Hypertension Diabetes IDDM Surgical History History of incision and drainage (05/06/23) Incision and Drainage, Debridement Sacral Wound - Yasmany Langley DO History of bilateral cataract extraction History of cardioversion x2 Status post gastric bypass for obesity 09/14/2020- Dr. Ash- [facility] History of arthroscopy x2 left shoulder History of total shoulder replacement LEFT 07/19 2015 fracture History of esophagogastroduodenoscopy (EGD) History of colonoscopy History of dermoid cyst excision S/P tooth extraction History of mandibular surgery FULL ROM H/O section x1 Hx of cholecystectomy Family History Daughter Multiple allergies Bipolar disorder Aunt Breast cancer Mother Diabetes Heart disease Hyperthyroidism Hypertension Father Gastric cancer Hearing loss Myocardial infarction Grandfather Heart disease Family/Other Osteoporosis Lung cancer Hypertension Stroke Brother Hypertension Grandmother Ovarian cancer Sister Diabetes Migraine Other No family history of adverse response to anesthesia Denies family history of Prostate cancer Colorectal cancer Uterine cancer Social History Smoking Status: Never smoker Second Hand Exposure: No; Do You Dip or Chew Tobacco: No; Hx Alcohol Use: No (Unknown - Resident of [facility]) Hx Substance Use: No (Unknown - Resident of [facility]) Preferred Language: Japanese Communication Ability: Effective Visual Impairment: No Limitations Review Specialist Required: No Beliefs That Will Affect Care: None marital status: Current Living Situation: Long-Term Current Living Situation Comment: Resident of [facility] current occupational status: employed and unemployed Feels Safe at Home: Yes Childhood Exposure to Second-Hand Smoke: Yes Dental Care, Regularly: Yes Physical Activity Frequency: Does not Exercise Seatbelt Use: always Sunscreen Use: Yes Assistive Devices: Walker Physical Exam Physical Exam: Exam obtained with aid of in-person telepresenter. General: Well-appearing, no acute distress HEENT: Conjunctivae non-injected, sclerae anicteric, MMM, OP clear. Resp: Respirations nonlabored. Abd: Soft, nontender, nondistended Ext: L hip with limited flexion and significantly limited external rotation due to pain. L hip wound with dressing in place that is weeping fluid. No significant surrounding erythema or induration of the skin. Skin: No rashes or lesions. Neuro: Alert & interactive. Grossly non-focal. Psych: Pleasant, appropriate. Results & Data Vital Signs (Past 12 Hours) Vital Signs Temp Pulse Resp BP Pulse Ox O2 Del Method 08/02/23 15:14 36.9 C 54 L 18 105/56 L 99 Room Air 08/02/23 06:55 36.7 C 68 14 132/81 95 Room Air Diagnostic Findings Diagnostics: 07/[address]: Posterior soft tissue swelling is seen without evidence of drainable fluid collection. Expected postsurgical changes status post femoral neck fixation. Micro Summary: 07/30 Wound L hip (ortho aspiration at two sites): - Aer/haley Cx #2: rare Corynebacterium; G/S many WBCs, no orgs - Aer/haley Cx #1: few Corynebacterium + low counts skin lesly; G/S many WBCs, no orgs 07/30 Wound L hip (bedside cx): - Aer/haley Cx: MSSA, skin lesly; G/s rare GNRs, mod GPCs 07/29 UCx: >100k Kleb pneumo 07/29 BCx x2: NGTD 07/29 full RVP: neg Prior 05/06/23 Sacral wound (from surgical debridement): Cx Fusobacterium, mixed anerobic, mixed intestinal lesly; Stainmany WBCs, mod GNRs, few GPCs Antibiotic Summary: vancomycin (07/31 present) ceftriaxone (08/01 present)
--- NOTE | 2023-08-02 16:57 | Hospitalist Progress Note ---
Date of Service August 02, 2023 Assessment & Plan (1) Left hip postoperative wound infection: Plan: Patient came in with weakness, pain and drainage from left lateral hip scar wound culture obtained growing corynebacteria in 2 cultures and one mssa, Ortho was not taken to the OR to have intraoperative cultures performed blood cultures negative at this time consulted ortho, canceled washout for 215 ID consult is concerned about source control. Will trend CRPs if continue to rise may consider reimaging of hip and discussion with orthopedist about possible washout continue vancomycin asking microbiology to perform sensitivities on a corynebacterium. (2) Weakness: Plan: Severe muscular deconditioning -Continue pain control with Oxycodone PRN - patient is on many potentially sedating agents - caution with coadministration (3) Elevated troponin: Plan: Patient denies chest pain. No acute ischemic changes on EKG. -Troponin mildly elevated at 41.6, improved now to 38.2 -Feels this is demand ischemia from infection. (4) Elevated CK: Plan: Mildly elevated CK at 753, likely from sacral decubitus poa (5) Sacral wound: Plan: Pressure ulcer/injury of sacrum, stage 3, POA Patient with known sacral wound. She reports home nursing changes dressing and bandages the wound daily. No reported pain or drainage. -Turn and position q 2 hours -Wound Care follwoing (6) Hypercholesterolemia: Plan: Chronic. Stable -Continue Atorvastatin 80mg po qHS (7) Atrial fibrillation: Plan: Paroxysmal s/p cardioversion in 2020. Presently in NSR with rate of 88bpm. Patient was previously seen by HF in May 2023 - DC medications from rehab - she is on Diltiazem and Metoprolol, no anticoagulation -Continue Diltiazem -Continue Metoprolol -Consider resuming anticoagulation, once postoperative stability follow-up on Lovenox currently for DVT prevention (8) Type 2 diabetes mellitus: Plan: Chronic. Last HgbA1C on 03/06/23=7 -ISS -Goal blood sugar 110 - 140 -Continue Lyrica PRN (9) Obsessive compulsive disorder: Plan: Chronic -Continue Fluvoxamine -Continue Buspirone (10) HTN (hypertension): Plan: Blood pressure mildly elevated -Continue Metoprolol -Will DC Amlodipine as patient is already on Diltiazem Admission and Anticipated Discharge Date Admission Date: July 29, 2023 Subjective Patient with persistent drainage from her left hip she has some tenderness and discomfort and weakness when she tries to stand Discussion with infectious disease regarding MSSA, corynebacteria, additional Klebsiella greater than 100,000 colonies in urine difficult to know what to make of that At this point time Ortho has been not thinking that this is a prosthetic joint infection but more a soft tissue infection. C-reactive protein has been increasing since admission, CT imaging is not interpreted as defined prosthetic joint infection however there are postoperative changes making it difficult to interpret Physical Exam Physical Exam: Patient is awake and alert she has a drainable area from her hip wound incision on the left side it is a mayers and serous material she has tenderness but no fluctuance or warmth Card exam is regular with a systolic murmur Lungs are clear without wheezes or crackles Wound care is tending to a decubitus ulcer present on admission Results & Data Results & Data Vital Signs (Past 12 Hours) Vital Signs Temp Pulse Resp BP Pulse Ox O2 Del Method 08/02/23 15:14 98.4 F 54 L 18 105/56 L 99 Room Air 08/02/23 06:55 98.0 F 68 14 132/81 95 Room Air Laboratory Results Reviewed CBC reviewed chemistry reviewed CRP PG Care Time/CCT Total # of Minutes Spent Total Time Spent with Patient: Total time spent is greater than 50% in coordination of care (as documented) at patient's floor/unit and/or counseling patient: Coding Level of Care Code 71475 SUB INP/OBS CARE 3/50MIN Diagnoses Left hip postoperative wound infection T81.49XA Weakness R53.1 Elevated troponin R79.89 Elevated CK R74.8 Sacral wound S31.000A Hypercholesterolemia E78.00 Atrial fibrillation I48.91 Atrial fibrillation type: unspecified Type 2 diabetes mellitus with other specified complication, with long-term current 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 E11.69; Z79.4 Diabetes mellitus outreach representative insulin use: with outreach representative use Diabetes mellitus complication status: with other specified complication Obsessive compulsive disorder F42.9 HTN (hypertension) I10 (7) Atrial fibrillation Atrial fibrillation type: unspecified Qualified Code(s): I48.91 - Unspecified atrial fibrillation (8) Type 2 diabetes mellitus Diabetes mellitus shelter insulin use: with shelter use Diabetes mellitus complication status: with other specified complication Qualified Code(s): E11.69 - Type 2 diabetes mellitus with other specified complication; Z79.4 - custodial (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
[2023-08-03 06:56] LABS: Hematocrit (blood only) 31.9 % (37.0-47.0); Hemoglobin 9.9 g/dl (12.0-16.0); Mean Corpuscular Hemoglobin 26.1 pg (25.0-34.0); Mean Corpuscular Volume 84.2 fL (80.0-100.0); Mean Platelet Volume 11.7 fL (9.4-12.4); Platelet Count 149 K/uL (130-400); RDW Coefficient of Variation 15.1 % (11.5-14.5); RDW Standard Deviation 46.4 fL (36.4-46.3); Red Blood Count 3.79 M/uL (4.20-5.40); White Blood Count 6.25 K/ul (4.8-10.8)
[2023-08-03 07:25] LABS: Calcium 7.5 mg/dl (8.6-10.3)
[2023-08-03 07:30] LABS: BUN Creatinine Ratio 16.8 (10-20); C Reactive Protein 2.62 mg/dl (0-0.5); Creatinine Clr Calc Pharmacy 35.2 ml/min; Est GFR (African American) 29.5 ml/min; Est GFR (Non-African American) 25.4 ml/min
--- NOTE | 2023-08-03 08:13 | Surgery Progress Note ---
Date of Service August 03, 2023 Assessment & Plan (1) Left hip postoperative wound infection: Plan: 62-year-old female with multiple medical comorbidities 4 months out from a cemented bipolar hip arthroplasty with just a recent draining wound. There is no clinical or imaging studies suggesting deep infection. She does have a superficial wound in the subcu tissues. Fairly minimal drainage. Culture results are a bit equivocal as it seems to be mostly skin lesly. Certainly possible there could be some low-level Corynebacterium infection. Plan at this point I would favor continue conservative management. We talked with infectious disease yesterday. Would recommend a 2-week course of oral antibiotics and then reevaluate. I am happy to check her back at that time. As far as recommendations will leave that up to infectious disease. Probably logan sonable to cover any type of Corynebacterium as well as typical staph type species. She can weight-bear as tolerated. Just needs routine wound care. From the orthopedic standpoint I am okay with her being discharged anytime. Any orthopedic questions can be directed at [phone] (2) Sequela of Corynebacterium infection: Admission and Anticipated Discharge Date Admission Date: July 29, 2023 Subjective 62-year-old female 4 months out from a left cemented bipolar hip arthroplasty with a recent draining wound. From the orthopedic standpoint she seems to be doing okay. Denies much in the way of hip or leg pain. She was mostly admitted for medical issues. Physical Exam Physical Exam: Physical exam shows a pleasant female. She is lying in bed this morning talking on the phone. Examination left hip reveals no segment swelling. There is just 1 area of the site draining slightly. Fairly minimal drainage.She is neurologically intact. Results & Data Vital Signs (Past 12 Hours) Vital Signs Temp Pulse Resp BP Pulse Ox O2 Del Method 08/03/23 06:59 37.0 C 83 16 124/72 96 Room Air Laboratory Results Culture results are growing Corynebacterium. I think the other culture overloaded results are likely unreliable as it appears to be mostly skin lesly. PG Care Time/CCT Total # of Minutes Spent Total Time Spent with Patient: Total time spent is greater than 50% in coordination of care (as documented) at patient's floor/unit and/or counseling patient: Coding Level of Care Code 95910 SUB INP/OBS CARE 2/35MIN Diagnoses Left hip postoperative wound infection T81.49XA Sequela of Corynebacterium infection B94.8
--- NOTE | 2023-08-03 09:11 | Hospitalist Progress Note ---
Date of Service August 03, 2023 Assessment & Plan (1) Left hip postoperative wound infection: Plan: Patient came in with weakness, pain and drainage from left lateral hip scar wound culture obtained growing corynebacteria in 2 cultures and one mssa, after extensive discussions with Ortho infectious disease we are going to continue to treat this as a soft tissue infection. We will use doxycycline to cover the MSSA. She continues on ceftriaxone to cover both the Klebsiella UTI and the possibility of corynebacteria infection. This could be de-escalated at discharge to cefadroxil. blood cultures negative at this time There are currently no plans for joint washout at this time we will have a tentative 14-day treatment course and determine if additional intervention is needed after that Infectious disease asking microbiology to perform sensitivities on a corynebacterium. (2) Weakness: Plan: Severe muscular deconditioning -Continue pain control with Oxycodone PRN - patient is on many potentially sedating agents - caution with coadministration (3) Elevated troponin: Plan: Patient denies chest pain. No acute ischemic changes on EKG. -Troponin mildly elevated at 41.6, improved now to 38.2 -Feels this is demand ischemia from infection. (4) Elevated CK: Plan: Mildly elevated CK at 753, likely from sacral decubitus poa (5) Sacral wound: Plan: Pressure ulcer/injury of sacrum, stage 3, POA Patient with known sacral wound. She reports home nursing changes dressing and bandages the wound daily. No reported pain or drainage. -Turn and position q 2 hours -Wound Care following (6) Hypercholesterolemia: Plan: Chronic. Stable -Continue Atorvastatin 80mg po qHS (7) Atrial fibrillation: Plan: Paroxysmal s/p cardioversion in 2020. Presently in NSR with rate of 88bpm. Patient was previously seen by HF in May 2023 - DC medications from rehab - she is on Diltiazem and Metoprolol, no anticoagulation -Continue Diltiazem -Continue Metoprolol -Consider resuming anticoagulation, once postoperative stability follow-up on Lovenox currently for DVT prevention (8) Type 2 diabetes mellitus: Plan: Chronic. Last HgbA1C on 03/06/23=7 -ISS -Goal blood sugar 110 - 140 -Continue Lyrica PRN (9) Obsessive compulsive disorder: Plan: Chronic -Continue Fluvoxamine -Continue Buspirone (10) HTN (hypertension): Plan: Blood pressure mildly elevated -Continue Metoprolol -Will DC Amlodipine as patient is already on Diltiazem Admission and Anticipated Discharge Date Admission Date: July 29, 2023 Subjective pt feels improved, less pain, still very weak no shortness of breath or cough constipation starting colace no urinary complaints Physical Exam Physical Exam: Patient is awake and alert hip drainage has lessened Card exam is regular with a systolic murmur Lungs are clear without wheezes or crackles Wound care is tending to a decubitus ulcer present on admission Results & Data Results & Data Vital Signs (Past 12 Hours) Vital Signs Temp Pulse Resp BP Pulse Ox O2 Del Method 08/03/23 06:59 98.6 F 83 16 124/72 96 Room Air Laboratory Results review cbc review chemistry PG Care Time/CCT Total # of Minutes Spent Total Time Spent with Patient: Total time spent is greater than 50% in coordination of care (as documented) at patient's floor/unit and/or counseling patient: Coding Level of Care Code 04045 SUB INP/OBS CARE 2/35MIN Diagnoses Left hip postoperative wound infection T81.49XA Weakness R53.1 Elevated troponin R79.89 Elevated CK R74.8 Sacral wound S31.000A Hypercholesterolemia E78.00 Atrial fibrillation I48.91 Atrial fibrillation type: unspecified Type 2 diabetes mellitus with other specified complication, with long-term current 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 E11.69; Z79.4 Diabetes mellitus complication status: with other specified complication Diabetes mellitus adjunct faculty for medical terminology insulin use: with adjunct faculty for medical terminology use Obsessive compulsive disorder F42.9 HTN (hypertension) I10 (7) Atrial fibrillation Atrial fibrillation type: unspecified Qualified Code(s): I48.91 - Unspecified atrial fibrillation (8) Type 2 diabetes mellitus Diabetes mellitus complication status: with other specified complication Diabetes mellitus adjunct faculty for medical terminology insulin use: with longterm use Qualified Code(s): E11.69 - Type 2 diabetes mellitus with other specified complication; Z79.4 - assisted (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
[2023-08-03] MEDS: DOXYCYCLINE HYCLATE 100 MG CAP PO SCH (10:23)
[2023-08-04 07:09] LABS: Hematocrit (blood only) 32.2 % (37.0-47.0); Hemoglobin 9.9 g/dl (12.0-16.0); Mean Corpuscular Hemoglobin 25.8 pg (25.0-34.0); Mean Corpuscular Hgb Conc 30.7 g/dL (32.0-36.0); Mean Corpuscular Volume 84.1 fL (80.0-100.0); Mean Platelet Volume 12.4 fL (9.4-12.4); Platelet Count 147 K/uL (130-400); RDW Coefficient of Variation 15.2 % (11.5-14.5); RDW Standard Deviation 46.1 fL (36.4-46.3); Red Blood Count 3.83 M/uL (4.20-5.40); White Blood Count 5.86 K/ul (4.8-10.8)
[2023-08-04 07:29] LABS: C Reactive Protein 3.33 mg/dl (0-0.5); Calcium 7.5 mg/dl (8.6-10.3); Creatinine Clr Calc Pharmacy 35.6 ml/min; Est GFR (African American) 29.8 ml/min; Est GFR (Non-African American) 25.7 ml/min; Potassium 4.3 mmol/L (3.5-5.1)
--- NOTE | 2023-08-04 07:54 | Surgery Progress Note ---
Date of Service August 04, 2023 Assessment & Plan (1) Left hip postoperative wound infection: Plan: 62-year-old female with multiple medical comorbidities now 4 months out from hip partial arthroplasty for fracture with a draining wound. It is hard to know wh ether this is deep and involves a prosthesis. The fact is going up this Corynebacterium and 2 species which were relatively sterilely taken has to be considered. Think she needs coverage for this. Organ to continue medical/antibiotic management. Organ to hold off any surgery and treat this conservatively/nonoperatively at this point. I am likely going to aspirate her knee tomorrow if she will allow us. I discussed that with her today but she was told what to hold off for now. Undoubtedly she is got some knee arthritis. She can fully weight-bear as tolerated. Routine wound care. Will continue to follow this patient while in the hospital. 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 She reports a little bit of pain in her leg today. No new complaints otherwise. Physical Exam Physical Exam: Physical examination of the left leg reveals the incision site. Benign. There is area of pinpoint open serous type drainage. No redness or warmth. Examination of the knee does reveal small knee effusion. She is still runner in this area. No warmth. Results & Data Vital Signs (Past 12 Hours) Vital Signs Temp Pulse Resp BP Pulse Ox O2 Del Method 08/03/23 20:53 Room Air 08/03/23 20:41 37.1 C 68 20 124/75 96 Room Air Laboratory Results Culture results are growing Corynebacterium PG Care Time/CCT Total # of Minutes Spent Total Time Spent with Patient: Total time spent is greater than 50% in coordination of care (as documented) at patient's floor/unit and/or counseling patient: Coding Level of Care Code 28679 SUB INP/OBS CARE 2/35MIN Diagnoses Left hip postoperative wound infection T81.49XA Prosthetic joint infection of left hip T84.52XA Sequela of Corynebacterium infection B94.8
--- NOTE | 2023-08-04 08:43 | XRay Report ---
XR knee LT 1 or 2V routine CLINICAL HISTORY: Left knee pain. COMPARISON: Left femur radiographs June 07, 2022. FINDINGS: Alignment of the left knee is anatomic. There is no acute fracture. Suspected osteopenia. Moderate left knee joint effusion is present. There is no lipohemarthrosis. Moderate left knee osteoa rthritis is most pronounced within the patellofemoral compartment. There is extensive vascular calcif ication. IMPRESSION: 1. No acute fractures within the left knee. 2. Moderate-sized left knee joint effusion. 3. Moderate tricompartmental left knee osteoarthritis. ACT 112: Negative or not required by law. Electronically signed by: Ahsan Rebolledo M.D. 08/04/2023 8:41 AM
[2023-08-04] MEDS ORDERED: VANCOMYCIN CONSULT ACTIVE PRN (10:51)
[2023-08-04] MEDS: VANCOMYCIN HCL 1,000 MG in SODIUM CHLORIDE 0.9% 250 ML IV SCH (12:51)
--- NOTE | 2023-08-04 15:09 | Pharmacy Report ---
Pharmacy PK ABX Note - Date of Service August 04, 2023 - Assessment and Plan Assessment 08/04: Vancomycin was discontinued on 08/03. Restarted today due to increasing CRP and knee effusion. Per [employer], current vanc level estimated to be ~10 mcg/mL, therefore will restart dose of 1000 mg IV q24h. No loading dose required. 08/02: Today is day 3 of IV Vancomycin therapy. Patient is on Vancomycin 1 gm IV q24h. Trough level obtained today is 12.4 mcg/ml at 09:17 AM. Hip cultures grew MSSA and Corynebacterium sp (quantity rare). Urine culture grew Klebsiella pneumoniae resistant to penicillin derivatives but sensitive to all else including Cephalosporins. Discussed with Dr. Appiah, about de-escalating to Cefazolin only which would cover both MSSA in hip and Klebsiella in urine. Concerned about Corynebacterium sp in hip. Therefore, ID consulted. 08/01: Reviewed vancomycin level, ok to redose today, will begin scheduled regimen as patient's renal function is improved over baseline. Will order an early trough for tomorrow AM 07/31: 62 year old F receiving vancomycin for treatment of postoperative left hip infection (~4 months from replacement). Pertinent microbiologic data includes: hip culture growing staph species (further identification and sensitivities pending). Day # 1 of antimicrobial therapy. Plan Vancomycin * Maintenance dose: Vancomycin 1000mg IV Q24H * Target AUC/SHAYNE of 400-600 mg/L.hr * Predicted AUC at steady state: 580 mg/L.hr * Random level ordered for 08/06 AM Pharmacy will continue to follow and will adjust dose/frequency as necessary. Thank you. Pharmacy has transitioned to AUC monitoring for vancomycin. AUC/SHAYNE is the preferred PK/PD target and is associated with decreased risk of nephrotoxicity compared to traditional trough targets.
--- NOTE | 2023-08-04 16:48 | Hospitalist Progress Note ---
Date of Service August 04, 2023 Assessment & Plan (1) Left hip postoperative wound infection: Plan: Patient came in with weakness, pain and drainage from left lateral hip scar wound culture obtained growing corynebacteria in 2 cultures and one mssa, after extensive discussions with Ortho infectious disease we are going to continue to treat this as a soft tissue infection. We will use vancomycin to cover the MSSA and corynebacteria. She continues on ceftriaxone to cover both the Klebsiella UTI blood cultures negative at this time There are currently no plans for joint washout at this time we will have a tentative 14-day treatment course and determine if additional intervention is needed after that Infectious disease asking microbiology to perform sensitivities on a corynebacterium. (2) Weakness: Plan: Severe muscular deconditioning -Continue pain control with Oxycodone PRN - patient is on many potentially sedating agents - caution with coadministration (3) Elevated troponin: Plan: Patient denies chest pain. No acute ischemic changes on EKG. -Troponin mildly elevated at 41.6, improved now to 38.2 -Feels this is demand ischemia from infection. (4) Elevated CK: Plan: Mildly elevated CK at 753, likely from sacral decubitus poa (5) Sacral wound: Plan: Pressure ulcer/injury of sacrum, stage 3, POA Patient with known sacral wound. She reports home nursing changes dressing and bandages the wound daily. No reported pain or drainage. -Turn and position q 2 hours -Wound Care following (6) Hypercholesterolemia: Plan: Chronic. Stable -Continue Atorvastatin 80mg po qHS (7) Atrial fibrillation: Plan: Paroxysmal s/p cardioversion in 2020. Presently in NSR with rate of 88bpm. Patient was previously seen by HF in May 2023 - DC medications from rehab - she is on Diltiazem and Metoprolol, no anticoagulation -Continue Diltiazem -Continue Metoprolol -Consider resuming anticoagulation, once postoperative stability follow-up on Lovenox currently for DVT prevention (8) Type 2 diabetes mellitus: Plan: Chronic. Last HgbA1C on 03/06/23=7 -ISS -Goal blood sugar 110 - 140 -Continue Lyrica PRN (9) Obsessive compulsive disorder: Plan: Chronic -Continue Fluvoxamine -Continue Buspirone (10) HTN (hypertension): Plan: Blood pressure mildly elevated -Continue Metoprolol -Will DC Amlodipine as patient is already on Diltiazem Admission and Anticipated Discharge Date Admission Date: July 29, 2023 Subjective Patient with some slight improvement of pain in her legs she notes pain in her left knee also. X-rays were performed and there is a joint effusion. She states that Dr. Childress discussed possible needle aspiration but unclear whether hip or knee. Due to the mild rise of her CRP and concerns and the patient that Dr. Childress may perform aspiration will change antibiotics back to intravenous vancomycin to cover corynebacterium Patient has good pain control the present time ambulation is limited Physical Exam Physical Exam: Patient is awake and alert hip drainage has lessened bandages has slight amount of serosanguineous dried liquid on the Card exam is regular with a systolic murmur Lungs are clear without wheezes or crackles Her left knee has some tenderness to the medial suprapatellar area there is no fluctuance although comments on x-ray include joint effusion Wound care is tending to a decubitus ulcer present on admission Results & Data Results & Data Vital Signs (Past 12 Hours) Vital Signs Temp Pulse Resp BP Pulse Ox O2 Del Method 08/04/23 15:17 99.3 F 65 16 138/66 94 Room Air 08/04/23 07:54 98.4 F 82 16 150/84 H 96 Room Air 08/04/23 07:30 Room Air Laboratory Results Reviewed chemistry Reviewed CRP Reviewed CBC PG Care Time/CCT Total # of Minutes Spent Total Time Spent with Patient: Total time spent is greater than 50% in coordination of care (as documented) at patient's floor/unit and/or counseling patient: Coding Level of Care Code 89208 SUB INP/OBS CARE 2/35MIN Diagnoses Left hip postoperative wound infection T81.49XA Weakness R53.1 Elevated troponin R79.89 Elevated CK R74.8 Sacral wound S31.000A Hypercholesterolemia E78.00 Atrial fibrillation I48.91 Atrial fibrillation type: unspecified Type 2 diabetes mellitus with other specified complication, with long-term current 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 E11.69; Z79.4 Diabetes mellitus termite treater insulin use: with termite treater use Diabetes mellitus complication status: with other specified complication Obsessive compulsive disorder F42.9 HTN (hypertension) I10 (7) Atrial fibrillation Atrial fibrillation type: unspecified Qualified Code(s): I48.91 - Unspecified atrial fibrillation (8) Type 2 diabetes mellitus Diabetes mellitus termite treater insulin use: with termite treater use Diabetes mellitus complication status: with other specified complication Qualified Code(s): E11.69 - Type 2 diabetes mellitus with other specified complication; Z79.4 - [facility] (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
[2023-08-05 08:27] LABS: Hematocrit (blood only) 33.4 % (37.0-47.0); Hemoglobin 10.6 g/dl (12.0-16.0); Mean Corpuscular Hemoglobin 26.2 pg (25.0-34.0); Mean Corpuscular Hgb Conc 31.7 g/dL (32.0-36.0); Mean Corpuscular Volume 82.5 fL (80.0-100.0); Mean Platelet Volume 12.1 fL (9.4-12.4); Platelet Count 155 K/uL (130-400); RDW Coefficient of Variation 15.1 % (11.5-14.5); RDW Standard Deviation 45.6 fL (36.4-46.3); Red Blood Count 4.05 M/uL (4.20-5.40); White Blood Count 6.47 K/ul (4.8-10.8)
[2023-08-05 08:53] LABS: BUN Creatinine Ratio 15.4 (10-20); C Reactive Protein 4.41 mg/dl (0-0.5); Creatinine Clr Calc Pharmacy 35.4 ml/min; Est GFR (African American) 29.6 ml/min; Est GFR (Non-African American) 25.6 ml/min; Potassium 4.7 mmol/L (3.5-5.1)
--- NOTE | 2023-08-05 13:04 | Infectious Disease Progress Nt ---
Date of Service August 05, 2023 Assessment & Plan (1) Left hip postoperative wound infection: (2) Prosthetic joint infection of left hip: (3) Sequela of Corynebacterium infection: (4) MSSA (methicillin susceptible Staphylococcus aureus) infection: (5) Chronic kidney disease, stage 4 (severe): Lucas Arellano is a 62-year-old woman with T2DM, afib, CKD, chronic sacral wound (last debrided 05/06/23), recent admission to [facility] 04/08 - 05/10/23 after fall and L femur s/p repair with L hip cemented bipolar hemiarthroplasty 04/09/23, who presents to [facility] ED on 07/29/23 with several weeks of L hip mechanical instability, and 3 weeks of groin pain, feeling like the hardware was coming out, and night sweats, found to have L hip drainage. On 07/30, superficial wound cx with MSSA; g/s with rare GNRs and mod GPCs. 07/30 L hip aspiration at two sites, which both grew Corynebacterium (and one site with mixed probable skin lesly). ID is consulted for L hip wound infection with suspected L hip PJI. Interestingly wound cx with MSSA and GNRs on g/s, however L hip aspiration (sterile aspiration by ortho at 2 sites) with Corynebacterium spp. Query whether the reported GNR may have been a misread of the gram stain given lack of growth. Per Dr. Childress, the hip aspiration x2 yielded nearly no fluid, only a small amount of blood, but he sent the fluid for culture just in case. The MSSA grew only from the superficial swab, whereas the Corynebacterium grew in the L hip as pirate, thus there is at this time no definitive evidence that MSSA is in the hip joint. It is worth noting that Corynebacterium can be a cause of hip PJI and should be considered a pathogen in the correct clinical context. Discussed that given the uncertainty over the significance of the Corynebacterium and the reassuring aspiration findings (no fluid) and CT without fluid, that it may be reasonable to regard and treat this syndrome only as SSTI, rather than as PJI. If so, would treat with antibiotics to only complete a treatment course for SSTI (10-14 days) targeting the MSSA (though g/s also with rare GNRs there was no growth in culture), and monitor clinically after stopping abx. Were patient to develop worsening symptoms after stopping abx, then would need to reassess for PJI, including with trending inflammatory markers, repeating imaging, and likely repeating hip aspiration. For presumed SSTI, would narrow to cefazolin to target the MSSA and transition to cefadroxil upon discharge to complete a 14-day course as corynebacteria is non-pathogenic skin lesly and would not cause SSTI and therapy is not necessary to be directed against Corynebacteria unless there is concern for PJI. She also had a urine culture positive for K pneumoniae though she did not have any documented urinary complaints and it is unclear if this was a true infection vs asymptomatic bacteriuria. She has regardless completed therapy for UTI. After stopping abx, follow closely with orthopedic surgery, continue to follow clinical symptoms and ESR/CRP, and if abnormal then with low threshold for repe at imaging and repeat hip aspiration to evaluate for PJI. She was noted to have a tununak let knee effusion and plan for arthrocentesis today to further evaluate. This seems likely to be in the setting of osteoarthritis but cefazolin will regardless provide appropriate empiric coverage of the most likely pathogens (pathogenic skin lesly such as MSSA). Corynebacteria would not be a cause of invasive infection of a tununak joint thus continued coverage of this organism with vancomycin is not necessary and she is not likely to be co-colonized with both MSSA and MRSA. ID Problem List: 1.L hip wound infection with c/f L hip PJI. L hip wound cx + MSSA and with GNRs on gram stain. L hip aspiration + Corynebacterium; suspect superficial SSTI over PJI at the moment per orthopedic surgery evaluation 2.History of L femur fracture s/p repair 04/09/23 3.Chronic kidney disease 4. L knee effusion Recommendations: -- I have discontinued vancomycin and ceftriaxone and started cefazolin 1g IV q8h for presumed MSSA L hip SSTI -- Please send L knee synovial fluid for cell count, crystal analysis, gram stain and culture -- If L knee fluid is not consistent with septic arthritis, then anticipate transition to cefadroxil 500 mg PO q12h to complete a 14-day total course (through 08/13/2023) -- Ongoing close follow up per orthopedic surgery and recommend periodic monitoring of inflammatory markers including ESR and CRP with low threshold to consider repeat aspiration of L hip to be sent for cell count and cultures should she have clinical worsening Thank you for involving us in the care of this patient. Infectious diseases will follow with you. Please contact us via the [employer] call center at [phone] with any questiont or concerns. Latanya Gilman MD, PhD ID attending ID Connect Admission and Anticipated Discharge Date Admission Date: July 29, 2023 Subjective This patient recommendation is based on a telemedicine consult request which was completed asynchronously through chart review and information provided by the primary physician. The patient was not seen or examined today. The evaluation is consultative in nature and all patient care and treatment decisions can either be accepted or rejected by the patient's primary hospital-based treating physician using their own independent medical judgment for their patient. Time Spent Reviewing Chart: 21 - 30 minutes Interval events: No acute events. Ms. Arellano has remained afebrile and hemodynamically stable. Labs demonstrate WBC 6.47, hgb 10.6, plt 155, Cr 2.01 (stable), CRP 4.41 from 3.33. Cultures from hip wound are growing MSSA, as well as Corynebacterium and low counts of probable skin lesly. She was noted to have swelling and pain of the L knee and a joint effusion on XR with plan for arthrocentesis today. Review of System Telemedicine E consult, ROS not performed Physical Exam Physical Exam: telemedicine E-consult, physical exam not performed Results & Data Vital Signs (Past 12 Hours) Vital Signs Temp Pulse Resp BP Pulse Ox O2 Del Method 08/05/23 08:38 37 C 82 16 160/78 H 98 Room Air Laboratory Results Short CBC 08/05/23 Range/Units 07:38 WBC 6.47 (4.8-10.8) K/ul Hgb 10.6 L (12.0-16.0) g/dl Hct 33.4 L (37.0-47.0) % Plt Count 155 (130-400) K/uL BMP 08/05/23 07:38 Sodium 140 Potassium 4.7 Chloride 108 H Carbon Dioxide 29 BUN 31 H Creatinine 2.01 H Glucose 109 H Calcium 8.0 L Microbiology 07/30/23 17:20 Hip,Left Gram Stain - Final 07/30/23 17:20 Hip,Left Aerobic and Anaerobic Culture - Preliminary Corynebacterium species 07/30/23 17:20 Hip,Left Gram Stain - Final 07/30/23 17:20 Hip,Left Aerobic and Anaerobic Culture - Preliminary Corynebacterium species 07/30/23 10:30 Hip,Left Gram Stain - Final 07/30/23 10:30 Hip,Left Aerobic and Anaerobic Culture - Final Staphylococcus aureus 07/29/23 18:00 Blood Aerobic Blood Culture - Final No growth in Aerobic bottle after 5 days. 07/29/23 18:00 Blood Anaerobic Blood Culture - Final 07/29/23 17:51 Blood Aerobic Blood Culture - Final No growth in Aerobic bottle after 5 days. 07/29/23 17:51 Blood Anaerobic Blood Culture - Final 07/29/23 18:00 Urine,Clean Catch Urine Culture - Final Klebsiella pneumoniae Diagnostic Findings Knee X-Ray 08/04/23 07:55 XR knee LT 1 or 2V routine CLINICAL HISTORY: Left knee pain. COMPARISON: Left femur radiographs June 07, 2022. FINDINGS: Alignment of the left knee is anatomic. There is no acute fracture. Suspected osteopenia. Moderate left knee joint effusion is present. There is no lipohemarthrosis. Moderate left knee osteoarthritis is most pronounced within the patellofemoral compartment. There is extensive vascular calcification. IMPRESSION: 1. No acute fractures within the left knee. 2. Moderate-sized left knee joint effusion. 3. Moderate tricompartmental left knee osteoarthritis. ACT 112: Negative or not required by law. Electronically signed by: Ahsan Rebolledo M.D. 08/04/2023 8:41 AM
[2023-08-05] MEDS ORDERED: ceFAZolin 1000MG 1,000 MG/7.5 ML SYR IV SCH (13:15)
[2023-08-05] MEDS ORDERED: VANCOMYCIN CONSULT ACTIVE PRN (14:00)
[2023-08-05] MEDS: ceFAZolin 2000MG 2,000 MG/15 ML SYR IV SCH (16:37)
--- NOTE | 2023-08-05 17:20 | Hospitalist Progress Note ---
Date of Service August 05, 2023 Assessment & Plan (1) Left hip postoperative wound infection: Plan: Patient came in with weakness, pain and drainage from left lateral hip scar wound culture obtained growing corynebacteria in 2 cultures and one mssa, after extensive discussions with Ortho infectious disease we are going to continue to treat this as a soft tissue infection. We will use vancomycin to cover the MSSA and corynebacteria. Infectious diseases changed to cefazolin and vancomycin to cover chronic bacterium and MSSA There are currently no plans for joint washout at this time we will have a tentative 14-day treatment course and determine if additional intervention is needed after that Infectious disease asking microbiology to perform sensitivities on a corynebacterium. (2) Weakness: Plan: Severe muscular deconditioning -Continue pain control with Oxycodone PRN - patient is on many potentially sedating agents - caution with coadministration (3) Elevated troponin: Plan: Patient denies chest pain. No acute ischemic changes on EKG. -Troponin mildly elevated at 41.6, improved now to 38.2 -Feels this is demand ischemia from infection. (4) Elevated CK: Plan: Mildly elevated CK at 753, likely from sacral decubitus poa (5) Sacral wound: Plan: Pressure ulcer/injury of sacrum, stage 3, POA Patient with known sacral wound. She reports home nursing changes dressing and bandages the wound daily. No reported pain or drainage. -Turn and position q 2 hours -Wound Care following (6) Hypercholesterolemia: Plan: Chronic. Stable -Continue Atorvastatin 80mg po qHS (7) Atrial fibrillation: Plan: Paroxysmal s/p cardioversion in 2020. Patient josé miguel in normal sinus rhythm with rate control and good blood pressure -Continue Metoprolol -Consider resuming anticoagulation, once postoperative stability follow-up on Lovenox currently for DVT prevention Chronic stable hypertension is controlled with metoprolol and diltiazem (8) Type 2 diabetes mellitus: Plan: Chronic. Last HgbA1C on 03/06/23=7 -ISS -Goal blood sugar 110 - 140 -Continue Lyrica PRN (9) Obsessive compulsive disorder: Plan: Chronic -Continue Fluvoxamine -Continue Buspirone Admission and Anticipated Discharge Date Admission Date: July 29, 2023 Subjective Patient persists with pain to her left hip now to her groin radiating to her knee wound itself does not look significantly erythematous but still draining a serous liquid. Orthopedic discussion of possible arthrocentesis of knee in note from 218. Patient having difficulty ambulating without pain in her groin limiting her strength Physical Exam Physical Exam: Patient is awake and alert hip drainage has lessened bandages has slight amount of mostly serous fluid with serous fluid able to be expressed from wound on examination Card exam is regular with a systolic murmur Lungs are clear without wheezes or crackles Her left knee remains with tenderness to the medial suprapatellar area there is no fluctuance Wound care is tending to a decubitus ulcer present on admission Results & Data Results & Data Vital Signs (Past 12 Hours) Vital Signs Temp Pulse Resp BP Pulse Ox O2 Del Method 08/05/23 15:58 98.2 F 62 16 130/65 98 Room Air 08/05/23 08:38 98.6 F 82 16 160/78 H 98 Room Air Laboratory Results Reviewed CBC Reviewed chemistry Reviewed C-reactive protein Personally discussed case with infectious disease PG Care Time/CCT Total # of Minutes Spent Total Time Spent with Patient: Total time spent is greater than 50% in coordination of care (as documented) at patient's floor/unit and/or counseling patient: Coding Level of Care Code 50938 SUB INP/OBS CARE 2/35MIN Diagnoses Left hip postoperative wound infection T81.49XA Weakness R53.1 Elevated troponin R79.89 Elevated CK R74.8 Sacral wound S31.000A Hypercholesterolemia E78.00 Atrial fibrillation I48.91 Atrial fibrillation type: unspecified Type 2 diabetes mellitus with other specified complication, with long-term current 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 E11.69; Z79.4 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
[2023-08-06 06:15] LABS: Hematocrit (blood only) 32.6 % (37.0-47.0); Hemoglobin 10.4 g/dl (12.0-16.0); Mean Corpuscular Hemoglobin 26.4 pg (25.0-34.0); Mean Corpuscular Hgb Conc 31.9 g/dL (32.0-36.0); Mean Corpuscular Volume 82.7 fL (80.0-100.0); Mean Platelet Volume 12.2 fL (9.4-12.4); Platelet Count 162 K/uL (130-400); RDW Coefficient of Variation 15.2 % (11.5-14.5); RDW Standard Deviation 45.8 fL (36.4-46.3); Red Blood Count 3.94 M/uL (4.20-5.40); White Blood Count 6.32 K/ul (4.8-10.8)
[2023-08-06 06:46] LABS: Anion Gap 4 (3-11); BUN Creatinine Ratio 18.2 (10-20); Blood Urea Nitrogen 31 mg/dl (6-23); Calcium 7.8 mg/dl (8.6-10.3); Carbon Dioxide 27 mmol/L (21-32); Chloride 109 mmol/L (98-107); Creatinine Clr Calc Pharmacy 41.9 ml/min; Est GFR (African American) 36.3 ml/min; Est GFR (Non-African American) 31.3 ml/min; Glucose 99 mg/dl (70-99(Fasting)); Sodium 140 mmol/L (136-145)
--- NOTE | 2023-08-06 09:59 | Pharmacy Report ---
Pharmacy PK ABX Note - Date of Service August 06, 2023 - Assessment and Plan Assessment 08/06: Vancomycin level therapeutic this AM. Continue current regimen. Awaiting sensitivities on corynebacterium to de-escalate vancomycin. Currently on Ancef for MSSA in hip and klebsiella in urine. Serum creatinine slightly improved today. Will continue to monitor and adjust as needed. 08/04: Vancomycin was discontinued on 08/03. Restarted today due to increasing CRP and knee effusion. Per [facility], current vanc level estimated to be ~10 mcg/mL, therefore will restart dose of 1000 mg IV q24h. No loading dose required. 08/02: Today is day 3 of IV Vancomycin therapy. Patient is on Vancomycin 1 gm IV q24h. Trough level obtained today is 12.4 mcg/ml at 09:17 AM. Hip cultures grew MSSA and Corynebacterium sp (quantity rare). Urine culture grew Klebsiella pneumoniae resistant to penicillin derivatives but sensitive to all else including Cephalosporins. Discussed with Dr. Appiah, about de-escalating to Cefazolin only which would cover both MSSA in hip and Klebsiella in urine. Concerned about Corynebacterium sp in hip. Therefore, ID consulted. 08/01: Reviewed vancomycin level, ok to redose today, will begin scheduled regimen as patient's renal function is improved over baseline. Will order an early trough for tomorrow AM 07/31: 62 year old F receiving vancomycin for treatment of postoperative left hip infection (~4 months from replacement). Pertinent microbiologic data includes: hip culture growing staph species (further identification and sensitivities pending). Day # 1 of antimicrobial therapy. Plan Vancomycin * Maintenance dose: Vancomycin 1000mg IV Q24H * Target AUC/SHAYNE of 400-600 mg/L.hr * Predicted AUC at steady state: 511 mg/L.hr * Random level to be ordered based on clinical status and if continued dosing is required. Pharmacy will continue to follow and will adjust dose/frequency as necessary. Thank you. Pharmacy has transitioned to AUC monitoring for vancomycin. AUC/SHAYNE is the preferred PK/PD target and is associated with decreased risk of nephrotoxicity compared to traditional trough targets.
--- NOTE | 2023-08-06 15:00 | Hospitalist Progress Note ---
Date of Service August 06, 2023 Assessment & Plan (1) Left hip postoperative wound infection: Plan: Patient came in with weakness, pain and drainage from left lateral hip scar wound culture obtained growing corynebacteria in 2 cultures and one mssa, after extensive discussions with Ortho infectious disease we are going to continue to treat this as a soft tissue infection. We will use vancomycin to cover the MSSA and corynebacteria. Infectious diseases changed to cefazolin and vancomycin to cover chorynebacterium and MSSA, completed treatment for Klebsiella uti There are currently no plans for joint washout at this time we will have a tentative 14-day treatment course and determine if additional intervention is needed after that Infectious disease asking microbiology to perform sensitivities on a corynebacterium. (2) Weakness: Plan: Severe muscular deconditioning -Continue pain control with Oxycodone PRN - patient is on many potentially sedat ing agents - caution with coadministration will need rehab stay may not qualify for [facility] (3) Elevated troponin: Plan: Patient denies chest pain. No acute ischemic changes on EKG. -Troponin mildly elevated at 41.6, improved now to 38.2 -Feels this is demand ischemia from infection. (4) Elevated CK: Plan: Mildly elevated CK at 753, likely from sacral decubitus poa (5) Sacral wound: Plan: Pressure ulcer/injury of sacrum, stage 3, POA Patient with known sacral wound. She reports home nursing changes dressing and bandages the wound daily. No reported pain or drainage. -Turn and position q 2 hours -Wound Care following (6) Hypercholesterolemia: Plan: Chronic. Stable -Continue Atorvastatin 80mg po qHS (7) Atrial fibrillation: Plan: Paroxysmal s/p cardioversion in 2020. Patient continues in normal sinus rhythm with rate control and good blood pressure -Continue Metoprolol -Consider resuming anticoagulation, once postoperative stability follow-up on Lovenox currently for DVT prevention Chronic stable hypertension is controlled with metoprolol and diltiazem (8) Type 2 diabetes mellitus: Plan: Chronic. Last HgbA1C on 03/06/23=7 -ISS -Goal blood sugar 110 - 140 -Continue Lyrica PRN (9) Obsessive compulsive disorder: Plan: Chronic -Continue Fluvoxamine -Continue Buspirone Admission and Anticipated Discharge Date Admission Date: July 29, 2023 Subjective Patient continues to complaint of groin and hip pain, radiating to her knee Orthopedic discussion of possible arthrocentesis of knee ID still trying to figure final antibiotics if corynebacteria is contaminant or real infection Patient having difficulty ambulating without pain in her groin limiting her strength Physical Exam Physical Exam: Patient is awake and alert hip drainage has persists and is clear now Card exam is regular with a systolic murmur Lungs are clear without wheezes or crackles Her left knee remains with tenderness to the medial suprapatellar area there is no fluctuance Wound care is tending to a decubitus ulcer present on admission Results & Data Results & Data Vital Signs (Past 12 Hours) Vital Signs Temp Pulse Resp BP Pulse Ox O2 Del Method 08/06/23 07:55 97.7 F 80 16 144/70 H 91 Room Air Laboratory Results Reviewed chemistry Reviewed CBC Reviewed CRP Discussed case with infectious disease PG Care Time/CCT Total # of Minutes Spent Total Time Spent with Patient: Total time spent is greater than 50% in coordination of care (as documented) at patient's floor/unit and/or counseling patient: Coding Level of Care Code 98888 SUB INP/OBS CARE 3/50MIN Diagnoses Left hip postoperative wound infection T81.49XA Weakness R53.1 Elevated troponin R79.89 Elevated CK R74.8 Sacral wound S31.000A Hypercholesterolemia E78.00 Atrial fibrillation I48.91 Atrial fibrillation type: unspecified Type 2 diabetes mellitus with other specified complication, with long-term current 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 E11.69; Z79.4 Diabetes mellitus continuous churn buttermaker insulin use: with continuous churn buttermaker use Diabetes mellitus complication status: with other specified complication Obsessive compulsive disorder F42.9 (7) Atrial fibrillation Atrial fibrillation type: unspecified Qualified Code(s): I48.91 - Unspecified atrial fibrillation (8) Type 2 diabetes mellitus Diabetes mellitus continuous churn buttermaker insulin use: with continuous churn buttermaker use Diabetes mellitus complication status: with other specified complication Qualified Code(s): E11.69 - Type 2 diabetes mellitus with other specified complication; Z79.4 - long-term (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
--- NOTE | 2023-08-06 15:38 | Orthopedic Progress Note ---
Date of Service August 06, 2023 Assessment & Plan (1) Left hip postoperative wound infection: She was seen and examined by Dr. Childress. He recommended aspirating her knee and she agreed to proceed with that today. We aspirated about 25ml of clear serous fluid. No signs of knee infection. This is related to some knee arthritis. Continue antibiotics per infectious disease service recommendations. Continue nonoperative management for her hip at this time. Continue PT/OT for ambulation/mobilizing her for generalized deconditioning. She can weight bear as tolerated. Procedure note: left knee was sterilely prepped with alcohol and using aseptic technique 25ml of clear serous fluid was aspirated from the knee. She tolerated the procedure well. No complications. (2) Effusion, left knee: Subjective . 62 year old patient 4 months s/p cemented bipolar hip hemiarthroplasty for a fracture readmitted with weakness and drainage from her hip incision. Sensitivities to the cornybacterium pending. She does have a left knee effusion. She does complain of some hip pain, located in the groin, lateral hip, and posterior leg. Seems to be worse when she has been up/out of bed and is weaker. Review of Systems All systems reviewed & are unremarkable except as noted in HPI & below. Physical Exam .alert and oriented. NAD. Left leg: Lateral hip incision intact. Minimal swelling/thickening in the soft tissues. Small amount of drainage on the dressing that was last changed yesterday. No pain with gentle hip or knee motion. +knee effusion. No redness or warmth. crp is 3.2 today Results & Data Results & Data Laboratory Results . Diagnostic Findings . PG Care Time/CCT Total # of Minutes Spent Total Time Spent with Patient: Total time spent is greater than 50% in coordination of care (as documented) at patient's floor/unit and/or counseling patient: Coding Level of Care Code 97848 SUB INP/OBS CARE 2/35MIN Diagnoses Left hip postoperative wound infection T81.49XA Effusion, left knee M25.462
--- NOTE | 2023-08-06 18:17 | Infectious Disease Progress Nt ---
Date of Service August 06, 2023 Assessment & Plan (1) Left hip postoperative wound infection: (2) Prosthetic joint infection of left hip: (3) Sequela of Corynebacterium infection: (4) MSSA (methicillin susceptible Staphylococcus aureus) infection: (5) Chronic kidney disease, stage 4 (severe): Lucas Arellano is a 62-year-old woman with T2DM, afib, CKD, chronic sacral wound (last debrided 05/06/23), recent admission to [facility] 04/08 - 05/10/23 after fall and L femur s/p repair with L hip cemented bipolar hemiarthroplasty 04/09/23, who presents to [facility] ED on 07/29/23 with several weeks of L hip mechanical instability, and 3 weeks of groin pain, feeling like the hardware was coming out, and night sweats, found to have L hip drainage. On 07/30, superficial wound cx with MSSA; g/s with rare GNRs and mod GPCs. 07/30 L hip aspiration at two sites, which both grew Corynebacterium (and one site with mixed probable skin lesly). ID is consulted for L hip wound infection with suspected L hip PJI. Interestingly wound cx with MSSA and GNRs on g/s, however L hip aspiration (sterile aspiration by ortho at 2 sites) with Corynebacterium spp. Query whether the reported GNR may have been a misread of the gram stain given lack of growth. Per Dr. Childress, the hip aspiration x2 yielded nearly no fluid, only a small amount of blood, but he sent the fluid for culture just in case. The MSSA grew only from the superficial swab, whereas the Corynebacterium grew in the L hip as pirate, thus there is at this time no definitive evidence that MSSA is in the hip joint. It is worth noting that Corynebacterium can be a cause of hip PJI and should be considered a pathogen in the correct clinical context. At this time there is uncertainty regarding whether the Corynebacterium is significant or not due to lack of fluid from joint aspiration however ongoing hip/groin pain and elevated CRP. It's worth noting that as Corynebacterium is a low-virulence pathogen, it may not cause the same significant effusion or highly elevated CRP as would be seen with more virulent pathogens like S aureus. Given diagnostic uncertainty, would consider checking an MRI L hip w/wo contrast to check for inflammatory changes that could be concerning for infection as this is more sensitive than CT. If concerning inflammatory changes are present, then would consider potential need for I&D. If it is re-assuring then would favor focusing therapy on the MSSA as Corynebacterium would not be a cause of SSTI in the absence of hardware involvement. In this event, she could be narrowed to a PO cephalosporin such as cefadroxil to complete a 14-day course and close follow up with orthopedic surgery with continued trending of inflammatory markers and low threshold for consideration of repeat imaging and aspiration if any worsening. For now, can continue vancomycin IV to target the Corynebacteria and cefazolin to target the MSSA (g/s reported rare GNRs there was no growth in culture thus query if this was a mis-read). She was noted to have a united keetoowah let knee effusion and underwent arthrocentesis on 08/06 with removal of 25 mL of clear serous fluid. It does not appear that any studies or cultures of this fluid were sent. Orthopedic surgery suspects this effusion in the setting of osteoarthritis. ID Problem List: 1.L hip wound infection with c/f L hip PJI. L hip wound cx + MSSA and with GNRs on gram stain. L hip aspiration + Corynebacterium; suspect superficial SSTI over PJI at the moment per orthopedic surgery evaluation 2.History of L femur fracture s/p repair 04/09/23 3.Chronic kidney disease 4. L knee effusion s/p arthrocentesis w/ removal of 25 mL clear, serous fluid on 08/06 (no studies sent) Recommendations: -- Continue vancomycin IV (dosing per pharmacy) and cefazolin 2g IV q8h for L hip infection -- Consider checking MRI L hip w/wo contrast given ongoing L hip/groin pain and elevated CRP as this is more sensitive than CT for PJI -- Final antibiotic plan pending MRI results; if re-assuring and no I&D planned then would favor transition to cefadroxil 500 mg PO BID to complete a 14-day course Discussed with Dr. Appiah Thank you for involving us in the care of this patient. Infectious diseases will follow with you. Please contact us via the [facility] call center at [phone] with any questions or concerns. Dr. Argenis Bosch will be taking over care tomorrow. Latanya Gilman MD, PhD ID attending [facility] Admission and Anticipated Discharge Date Admission Date: July 29, 2023 Subjective This patient recommendation is based on a telemedicine consult request which was completed asynchronously through chart review and information provided by the primary physician. The patient was not seen or examined today. The evaluation is consultative in nature and all patient care and treatment decisions can either be accepted or rejected by the patient's primary hospital-based treating physician using their own independent medical judgment for their patient. Time Spent Reviewing Chart: 21 - 30 minutes Interval events reviewed: No acute events. Ms. Arellano has remained afebrile and hemodynamically stable. Labs demonstrate WBC 6.32, hgb 10.4, plt 162, Cr 1.70 from 2.01, CRP 3.2 from 4.41. She underwent left knee arthrocentesis with removal of 25 mL of clear serous fluid by orthopedic surgery today. I do not see any studies of this fluid resulted or pending; unclear if any were sent. Orthopedic surgery felt that exam was consistent with osteoarthritis. Per review of primary and orthopedic surgery notes, she continues to complain of left hip and groin pain. Review of System Telemedicine E-consult, ROS not obtained Physical Exam Physical Exam: Telemedicine E-consult, physical exam not performed Results & Data Vital Signs (Past 12 Hours) Vital Signs Temp Pulse Resp BP Pulse Ox O2 Del Method 08/06/23 15:06 36.7 C 53 L 16 123/64 96 Room Air 08/06/23 07:55 36.5 C 80 16 144/70 H 91 Room Air Laboratory Results Short CBC 08/06/23 Range/Units 05:20 WBC 6.32 (4.8-10.8) K/ul Hgb 10.4 L (12.0-16.0) g/dl Hct 32.6 L (37.0-47.0) % Plt Count 162 (130-400) K/uL BMP 08/06/23 08/06/23 05:20 07:35 Sodium 140 Potassium TNP 3.9 Chloride 109 H Carbon Dioxide 27 BUN 31 H Creatinine 1.70 H D Glucose 99 Calcium 7.8 L Microbiology 07/30/23 17:20 Hip,Left Gram Stain - Final 07/30/23 17:20 Hip,Left Aerobic and Anaerobic Culture - Preliminary Corynebacterium species 07/30/23 17:20 Hip,Left Gram Stain - Final 07/30/23 17:20 Hip,Left Aerobic and Anaerobic Culture - Preliminary Corynebacterium species 07/30/23 10:30 Hip,Left Gram Stain - Final 07/30/23 10:30 Hip,Left Aerobic and Anaerobic Culture - Final Staphylococcus aureus 07/29/23 18:00 Blood Aerobic Blood Culture - Final No growth in Aerobic bottle after 5 days. 07/29/23 18:00 Blood Anaerobic Blood Culture - Final 07/29/23 17:51 Blood Aerobic Blood Culture - Final No growth in Aerobic bottle after 5 days. 07/29/23 17:51 Blood Anaerobic Blood Culture - Final 07/29/23 18:00 Urine,Clean Catch Urine Culture - Final Klebsiella pneumoniae Diagnostic Findings Knee X-Ray 08/04/23 07:55 XR knee LT 1 or 2V routine CLINICAL HISTORY: Left knee pain. COMPARISON: Left femur radiographs June 07, 2022. FINDINGS: Alignment of the left knee is anatomic. There is no acute fracture. Suspected osteopenia. Moderate left knee joint effusion is present. There is no lipohemarthrosis. Moderate left knee osteoarthritis is most pronounced within the patellofemoral compartment. There is extensive vascular calcification. IMPRESSION: 1. No acute fractures within the left knee. 2. Moderate-sized left knee joint effusion. 3. Moderate tricompartmental left knee osteoarthritis. ACT 112: Negative or not required by law. Electronically signed by: Ahsan Rebolledo M.D. 08/04/2023 8:41 AM Medications Administered Current Inpatient Medications Atorvastatin Calcium (Atorvastatin 40 Mg Tab) 80 mg PO HS JOHNATHON Stop: 08/28/23 21:54 Last Admin: 08/05/23 21:43 Dose: 80 mg Buspirone HCl (Buspirone 15 Mg Tab) 15 mg PO BID JOHNATHON Stop: 08/28/23 21:54 Last Admin: 08/06/23 08:34 Dose: 15 mg Dextrose (Dextrose 50% 50 Ml Syringe) 25 - 50 ml IV UD PRN; Protocol PRN Reason: Hypoglycemia Protocol Stop: 08/28/23 21:54 Diltiazem HCl (Diltiazem Hcl 180 Mg Capcr) 180 mg PO DAILY JOHNATHON Stop: 08/29/23 08:59 Last Admin: 08/06/23 08:35 Dose: 180 mg Docusate Sodium (Docusate Sodium 100 Mg Cap) 100 mg PO BID JOHNATHON Stop: 08/28/23 21:54 Last Admin: 08/06/23 08:38 Dose: 100 mg Fluvoxamine Maleate (Fluvoxamine Maleate 50 Mg Tab) 150 mg PO BID JOHNATHON Stop: 08/28/23 21:54 Last Admin: 08/06/23 08:36 Dose: 150 mg Folic Acid (Folic Acid 1 Mg Tab) 1 mg PO QAM JOHNATHON Stop: 08/29/23 08:59 Last Admin: 08/06/23 08:35 Dose: 1 mg Glucagon (Glucagon For Inj 1 Mg Vial) 1 mg SQ UD PRN; Protocol PRN Reason: Hypoglycemia Protocol Stop: 08/28/23 21:54 Glucose (Glucose 10 Tab/Tube) 4 - 8 tab PO UD PRN; Protocol PRN Reason: Hypoglycemia Treatment Stop: 08/28/23 21:54 Glucose (Glucose 40% Gel 15 Gm Tube) 15 - 30 gm PO UD PRN; Protocol PRN Reason: Hypoglycemia Protocol Stop: 08/28/23 21:54 Vancomycin HCl 1,000 mg/ (Sodium Chloride) 270 mls @ 200 mls/hr IV Q24H JOHNATHON Stop: 08/11/23 11:59 Last Infusion: 08/06/23 14:30 Dose: Infused Cefazolin Sodium (Ancef 2000mg) 2,000 mg in 15 mls @ 3.75 mls/min IV Q12H JOHNATHON Stop: 08/12/23 13:14 Last Admin: 08/06/23 14:32 Dose: 3.75 mls/min Insulin Aspart (Insulin Aspart Per Unit Charge) 0 units SC ACHS JOHNATHON Stop: 08/28/23 21:54 Last Admin: 08/06/23 17:36 Dose: 2 units Levothyroxine Sodium (Levothyroxine Sodium 50 Mcg Tablet) 50 mcg PO DAILYBB [facility] Stop: 08/29/23 06:29 Last Admin: 08/06/23 05:02 Dose: 50 mcg Lorazepam (Lorazepam 1 Mg Tab) 1 mg PO BID PRN PRN Reason: anxiety Stop: 08/28/23 21:54 Metoprolol Succinate (Metoprolol Succ 25mg Ext Rel Tab) 25 mg PO DAILY JOHNATHON Stop: 08/29/23 08:59 Last Admin: 08/06/23 08:35 Dose: 25 mg Miscellaneous (Carbohydrates For Hypoglycemia ) 15 - 30 gm PO UD PRN PRN Reason: Hypoglycemia Protocol Stop: 08/28/23 21:54 Miscellaneous Information (Vancomycin Consult Active) 0 each N/A UD PRN PRN Reason: Consult Stop: 09/04/23 13:59 Morphine Sulfate (Morphine Sulfate 2 Mg/Ml Carp) 2 mg IV Q4 PRN PRN Reason: Moderate Pain (Scale 4, 5, 6) Stop: 08/15/23 18:05 Morphine Sulfate (Morphine Sulfate 4 Mg/Ml 1 Ml Carp\Vial) 4 mg IV Q4 PRN PRN Reason: Severe Pain (Scale 7, 8, 9,10) Stop: 08/15/23 18:05 Ondansetron HCl (Ondansetron Inj 2 Mg/Ml 2 Ml Vial) 4 mg IV Q6H PRN PRN Reason: Nausea And Vomiting Stop: 08/28/23 21:54 Oxycodone HCl (Oxycodone Hcl Ir 5 Mg Tab (Immediate Release)) 10 mg PO Q4H PRN PRN Reason: pain Stop: 08/12/23 21:54 Last Admin: 08/06/23 13:37 Dose: 10 mg Pantoprazole Sodium (Pantoprazole 40 Mg Tab) 40 mg PO BID [facility] Stop: 08/28/23 21:54 Last Admin: 08/06/23 08:34 Dose: 40 mg Polyethylene Glycol (Polyethylene (Miralax) 17 Gm Pack) 17 gm PO DAILY PRN PRN Reason: Constipation Stop: 08/28/23 21:54 Pregabalin (Pregabalin 75 Mg Cap) 75 mg PO BID [facility] Stop: 08/28/23 21:54 Last Admin: 08/06/23 08:34 Dose: 75 mg Sucralfate (Sucralfate 1 Gm/10 Ml Udc) 1 gm PO QID [facility] Stop: 08/28/23 21:54 Last Admin: 08/06/23 17:40 Dose: Not Given Trazodone HCl (Trazodone Hcl 100 Mg Tab) 100 mg PO HS [facility] Stop: 08/28/23 21:54 Last Admin: 08/05/23 21:44 Dose: 100 mg
[2023-08-07 08:29] LABS: Creatinine Clr Calc Pharmacy 38.7 ml/min; Est GFR (Non-African American) 28.5 ml/min
--- NOTE | 2023-08-07 10:02 | Infectious Disease Progress Nt ---
Date of Service August 07, 2023 Assessment & Plan (1) Left hip postoperative wound infection: (2) Prosthetic joint infection of left hip: (3) Sequela of Corynebacterium infection: (4) MSSA (methicillin susceptible Staphylococcus aureus) infection: (5) Chronic kidney disease, stage 4 (severe): Plan 62yo F with h/o T2DM, afib, CKD, chronic sacral wound (last debrided 05/06/23), recent admission to [facility] 04/08 - 05/10/23 after fall and L femur s/p repair with L hip cemented bipolar hemiarthroplasty 04/09/23, who presented to [facility] ED on 07/29/23 with several weeks of L hip mechanical instability, and 3 weeks of groin pain, feeling like the hardware was coming out, and night sweats. Found to have L hip drainage from incision site. Initial labs with normal WBC, Cr 1.98>>1.84, AST 109, ALT 76, CK 473, CRP 0.70>>3.20, ESR 26. L hip XR negative. L hip CT with Posterior soft tissue swelling is seen without evidence of drainable fluid collection. Expected postsurgical changes status post femoral neck fixation. On 07/30, superficial wound cx with MSSA; g/s with rare GNRs and mod GPCs. S/p L hip aspiration on 07/30 at 2 sites, both growing Corynebacterium. ID consulted for L hip wound infection with suspected L hip PJI. L knee XR on 08/04 with moderate sized joint effusion, osteoarthritis. S/p L knee aspiration 08/06 which was 25cc of clear fluid, clinically no infected appearance. Per Dr. Childress, the hip aspiration x2 yielded nearly no fluid, only a small amount of blood, but he sent the fluid for culture just in case. The MSSA grew only from the superficial swab, whereas the Corynebacterium grew in the L hip aspirate, thus there is at this time no definitive evidence that MSSA is in the hip joint. It is worth noting that Corynebacterium can be a cause of hip PJI and should be considered a pathogen in the correct clinical context. At this time there is uncertainty regarding whether the Corynebacterium is significant or not due to lack of fluid from joint aspiration however ongoing hip/groin pain and elevated CRP. It's worth noting that as Corynebacterium is a low-virulence pathogen, it may not cause the same significant effusion or highly elevated CRP as would be seen with more virulent pathogens like S aureus. Given diagnostic uncertainty, would consider checking an MRI L hip w/wo contrast to check for inflammatory changes that could be concerning for infection as this is more sensitive than CT. If concerning inflammatory changes are present, then would consider potential need for I&D. If it is re-assuring then would favor focusing therapy on the MSSA as Corynebacterium would not be a cause of SSTI in the absence of hardware involvement. In this event, she could be narrowed to a PO cephalosporin such as cefadroxil to complete a 14-day course and close follow up with orthopedic surgery with continued trending of inflammatory markers and low threshold for consideration of repeat imaging and aspiration if any worsening. # L hip wound infection with c/f L hip PJI - L hip WCx + MSSA and with GNRs on gram stain, L hip aspiration + Corynebacterium; suspect superficial SSTI over PJI at the moment per orthopedic surgery evaluation # h/o L femur fracture s/p repair 04/09/23 # Chronic kidney disease # L knee effusion s/p arthrocentesis w/ removal of 25 mL clear, serous fluid on 08/06 (no studies sent) -- Continue vancomycin IV (dosing per pharmacy) for Corynebacterium and cefazolin 2g IV q8h for MSSA for L hip infection -- Would obtain MRI L hip w/wo contrast given ongoing L hip/groin pain and elevated CRP as this is more sensitive than CT for PJI -- Susceptibilities to Corynebacterium were added on 08/03 and are in process -- Final antibiotic plan pending MRI results; if re-assuring for no joint infection and no I&D planned then would favor transition to cefadroxil 500 mg PO BID to complete a 14-day course Thank you for involving us in the care of this patient. Infectious diseases will follow with you. Please contact us via the [facility] call center at [phone] with any questions or concerns. Argenis Bosch MD ID attending [facility] Admission and Anticipated Discharge Date Admission Date: July 29, 2023 Subjective Subsequent visit was provided via telemedicine using two-way real-time interactive telecommunication between the patient and the telemedicine provider. For the duration of the visit, the provider was performing the assessment from a different facility than the patient. This includesuse of bluetooth stethoscope forauscultationperformed by the telepresenter that the telemedicine provider can hear if described in the physical exam. [employer] contact information: Please call [facility] Call Center [phone]. (Phone Number For Physician Use Only) After establishing a telemedicine visit, patient was: Patient/authorized rep acknowledged consent and understanding and Gave permission to continue telehealth session Time Spent with Patient: Subsequent => 35 min Patient reports pain in her left hip with standing, which she says radiates down her whole leg. And also pain when she rolls over onto her left. She does still have drainage. Says she is unable to visualize the site herself. No pain in her left knee. She denies having any n/v/d. No BM x 4 days. Eating well. Physical Exam Physical Exam: General: Awake, alert, no acute distress HEENT: NC/AT, EOMI, mmm Neck: supple Lungs: respirations non-labored Heart: nl peripheral perfusion Abdomen: soft Ext: left hip with serous drainage from incision site, light erythema at site, not warm, +swelling; Left knee without erythema Results & Data Vital Signs (Past 12 Hours) Vital Signs Temp Pulse Resp BP Pulse Ox O2 Del Method 08/07/23 07:00 37 C 81 18 130/74 94 Room Air Laboratory Results Labs reviewed
--- NOTE | 2023-08-07 13:23 | Surgery Progress Note ---
Date of Service August 07, 2023 Assessment & Plan (1) Left hip postoperative wound infection: Plan: 4 months out from left cemented bipolar hip arthroplasty for fracture with a draining wound. It is hard to know how deep this is. Her exam is pretty benign. I am not exactly sure the etiology of this recent onset of pain. I do not see any obvious physical/objective findings. I would encourage continued mobilization and just try to manage this at this point and see how things come along. Routine wound care. I recommend course of antibiotics and can be oral as an outpatient for the next couple weeks. Routine wound care. Patient did have a knee effusion. We aspirated this yesterday and was very bright benign in appearance. No signs of infection or other problems with her knee. No need for further follow-up on this at this moment. (2) Effusion, left knee: Admission and Anticipated Discharge Date Admission Date: July 29, 2023 Subjective 62-year-old female now 4 months out from a left cemented bipolar hip arthroplasty for fracture with a recently draining wound. Got multiple other medical comorbidities. As she is got this relatively recent onset of left leg pain which she did not report until about 2 days ago. She says a little bit better today. Still having trouble mobilizing. Physical Exam Physical Exam: Physical examination was a pleasant middle-age female. She is lying in bed. Looks pretty comfortable in bed. Examination left hip reveals noticing and swelling. She does have this pinpoint area of drainage from the lateral aspect of her hip. Fairly minimal pain with hip motion. She does describe some lateral pain with this motion. She is neurologically intact. Results & Data Vital Signs (Past 12 Hours) Vital Signs Temp Pulse Resp BP Pulse Ox O2 Del Method 08/07/23 07:00 37 C 81 18 130/74 94 Room Air PG Care Time/CCT Total # of Minutes Spent Total Time Spent with Patient: Total time spent is greater than 50% in coordination of care (as documented) at patient's floor/unit and/or counseling patient: Coding Level of Care Code 37658 SUB INP/OBS CARE 2/35MIN Diagnoses Left hip postoperative wound infection T81.49XA Effusion, left knee M25.462
--- NOTE | 2023-08-07 19:47 | Hospitalist Progress Note ---
Date of Service August 07, 2023 Assessment & Plan (1) Left hip postoperative wound infection: Plan: Patient presented with increasing pain decreasing muscular strength and serous drainage from the incision line of her left hip. This grew MSSA and corynebacterium. Infectious disease feels that if joint infection is not considered that the corynebacterium is likely contaminant recommending treatment for MSSA. Orthopedics also does not believe this is a joint infection and we are transitioning to oral medication treating her MSSA. However the patient has been insistent that she has increasing pain and cannot stand or walk. She feels she cannot go to rehab not being able to stand or walk. Patient already has suffered a decubitus ulcer from her previous hospital stay due to immobility. Orthopedics feels the patient needs to attempt to participate in physical therapy to a much larger extent however the patient is adamant that her pain is such that she cannot do this. After discussion with infectious disease they recommend possibility of doing an MRI of her joint to get further information about the prosthetic joint although this may be challenging to interpret appropriately. The patient also mentioned that if we cannot come to a resolution in our facility she MAC recommend a second opinion even if that were to require transfer to another facility Infectious disease asking microbiology to perform sensitivities on a corynebact erium. (2) Weakness: Plan: Severe muscular deconditioning -Continue pain control with Oxycodone PRN - patient is on many potentially sedating agents - caution with coadministration will need rehab stay may not qualify for [facility] or other subacute rehab however cannot participate fully in physical therapy to get insurance authorization (3) Elevated troponin: Plan: Patient denies chest pain. No acute ischemic changes on EKG. -Troponin mildly elevated at 41.6, improved now to 38.2 -Feels this is demand ischemia from infection. (4) Elevated CK: Plan: Mildly elevated CK at 753, likely from sacral decubitus poa (5) Sacral wound: Plan: Pressure ulcer/injury of sacrum, stage 3, POA Patient with known sacral wound. She reports home nursing changes dressing and bandages the wound daily. No reported pain or drainage. -Turn and position q 2 hours -Wound Care following (6) Hypercholesterolemia: Plan: Chronic. Stable -Continue Atorvastatin 80mg po qHS (7) Atrial fibrillation: Plan: Paroxysmal s/p cardioversion in 2020. Patient continues in normal sinus rhythm with rate control and good blood pressure -Continue Metoprolol -Consider resuming anticoagulation, once postoperative stability follow-up on Lovenox currently for DVT prevention Chronic stable hypertension is controlled with metoprolol and diltiazem (8) Type 2 diabetes mellitus: Plan: Chronic. Last HgbA1C on 03/06/23=7 -ISS -Goal blood sugar 110 - 140 -Continue Lyrica PRN (9) Obsessive compulsive disorder: Plan: Chronic -Continue Fluvoxamine -Continue Buspirone Admission and Anticipated Discharge Date Admission Date: July 29, 2023 Subjective Patient continues to complain of significant pain and muscular weakness limiting her participation in physical therapy and even ability to stand The wound itself is with serous discharge Physical Exam Physical Exam: Patient awake alert appropriate. Card exam is regular with a slight systolic murmur lungs are clear without wheezes or crackles Left hip is not erythematous the joint is not particularly tender to the lateral it stopped prickly tender to movement but the patient states when she bears weight is when it hurts the most. Previous surgical scar is intact exception of a small area where a clear liquid does seep when expressed Her left knee was also aspirated with clear fluid according the surgical report Results & Data Results & Data Vital Signs (Past 12 Hours) Vital Signs Temp Pulse Resp BP Pulse Ox O2 Del Method 08/07/23 19:06 98.2 F 62 16 144/72 H 98 Room Air 08/07/23 15:12 98.8 F 71 16 115/73 94 Room Air Laboratory Results Reviewed creatinine reviewed [id number] glucose PG Care Time/CCT Total # of Minutes Spent Total Time Spent with Patient: Total time spent is greater than 50% in coordination of care (as documented) at patient's floor/unit and/or counseling patient: Coding Level of Care Code 52159 SUB INP/OBS CARE 3/50MIN Diagnoses Left hip postoperative wound infection T81.49XA Weakness R53.1 Elevated troponin R79.89 Elevated CK R74.8 Sacral wound S31.000A Hypercholesterolemia E78.00 Atrial fibrillation I48.91 Atrial fibrillation type: unspecified Type 2 diabetes mellitus with other specified complication, with long-term current 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 E11.69; Z79.4 Diabetes mellitus detention insulin use: with oil heaterman use Diabetes mellitus complication status: with other specified complication Obsessive compulsive disorder F42.9 (7) Atrial fibrillation Atrial fibrillation type: unspecified Qualified Code(s): I48.91 - Unspecified atrial fibrillation (8) Type 2 diabetes mellitus Diabetes mellitus detention insulin use: with detention use Diabetes mellitus complication status: with other specified complication Qualified Code(s): E11.69 - Type 2 diabetes mellitus with other specified complication; Z79.4 - FDC (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
[2023-08-07] MEDS: LORazepam 1 MG TAB PO PRN (22:06)
--- NOTE | 2023-08-08 06:55 | Magnetic Resonance Report ---
MR hip LT wo con CLINICAL HISTORY: 62 years-old Female with eval for infection. Acute severe left hip pain with hip r eplacement 04/06/2023 COMPARISON: CT left hip 07/30/2023 TECHNIQUE: Multiplanar, multi sequence MRI of the left hip was performed without intravenous contrast . FINDINGS: The exam is very limited secondary to motion artifact and susceptibility artifact from the left hip a rthroplasty. The patient was unable to tolerate the study and therefore was prematurely terminated wi th only a few sequences obtained. There is anasarca. Colonic diverticulosis. Multilevel degenerative changes of the imaged lumbar spine . Decompressed urinary bladder with wall thickening. Indeterminate 2.4 cm T2 hyperintense left adnexa l structure. The endometrium measures 5 mm. There is at least mild right hip osteoarthritis. Susceptibility artifact within the soft tissues late ral to the left hip with 3.8 x 4.4 x 4.9 cm subcutaneous fluid collection. The marrow of the left hip cannot be evaluated secondary to the aforementioned artifacts/limitations. There is deep tissue patrice a noted posterior to the proximal left femoral diaphysis. IMPRESSION: 1. Limited exam as above. This patient was unable to complete the study, therefore the exam was virgie turely terminated. 2. Left hip arthroplasty with adjacent lateral subcutaneous fluid collection measuring up to 4.9 cm. When evaluating the comparison CT study from 07/30/2023 this corresponds to an air and fluid-filled co llection which is similar in size. Finding should be correlated clinically to exclude an abscess. 3. Anasarca. ACT 112: Negative or not required by law. The above report was generated using voice recognition software. It may contain grammatical, syntax o r spelling errors. Electronically signed by: Timothy Tracy M.D. 08/08/2023 6:52 AM
[2023-08-08 07:53] LABS: Creatinine Clr Calc Pharmacy 35.4 ml/min; Est GFR (African American) 29.6 ml/min; Est GFR (Non-African American) 25.6 ml/min
--- NOTE | 2023-08-08 13:34 | Hospitalist Progress Note ---
Date of Service August 08, 2023 Assessment & Plan (1) Left hip postoperative wound infection: Plan: Patient presented with increasing pain decreasing muscular strength and serous drainage from the incision line of her left hip. This grew MSSA and corynebacterium. Infectious disease feels that if joint infection is not considered that the corynebacterium is likely contaminant recommending treatment for MSSA. Orthopedics also does not believe this is a joint infection and we are transitioning to oral medication treating her MSSA. However the patient has been insistent that she has increasing pain and cannot stand or walk. She feels she cannot go to rehab not being able to stand or walk. Patient already has suffered a decubitus ulcer from her previous hospital stay due to immobility. Orthopedics feels the patient needs to attempt to participate in physical therapy to a much larger extent however the patient is adamant that her pain is such that she cannot do this. After discussion with infectious disease they recommend possibility of doing an MRI of her joint to get further information about the prosthetic joint although this may be challenging to interpret appropriately. The patient also mentioned that if we cannot come to a resolution in our facility she MAC recommend a second opinion even if that were to require transfer to another facility MRI completed showing same luid collection. IR consonsulted. 2ml of thick purulent fluid was aspirated. Infectious disease asking microbiology to perform sensitivities on a corynebacterium. (2) Weakness: Plan: Severe muscular deconditioning -Continue pain control with Oxycodone PRN - patient is on many potentially sedating agents - caution with coadministration will need rehab stay may not qualify for [facility] or other subacute rehab however cannot participate fully in physical therapy to get insurance authorization (3) Elevated troponin: Plan: Patient denies chest pain. No acute ischemic changes on EKG. -Troponin mildly elevated at 41.6, improved now to 38.2 -Feels this is demand ischemia from infection. (4) Elevated CK: Plan: Mildly elevated CK at 753, likely from sacral decubitus poa (5) Sacral wound: Plan: Pressure ulcer/injury of sacrum, stage 3, POA Patient with known sacral wound. She reports home nursing changes dressing and bandages the wound daily. No reported pain or drainage. -Turn and position q 2 hours -Wound Care following (6) Hypercholesterolemia: Plan: Chronic. Stable -Continue Atorvastatin 80mg po qHS (7) Atrial fibrillation: Plan: Paroxysmal s/p cardioversion in 2020. Patient continues in normal sinus rhythm with rate control and good blood pressure -Continue Metoprolol -Consider resuming anticoagulation, once postoperative stability follow-up on Lovenox currently for DVT prevention Chronic stable hypertension is controlled with metoprolol and diltiazem (8) Type 2 diabetes mellitus: Plan: Chronic. Last HgbA1C on 03/06/23=7 -ISS -Goal blood sugar 110 - 140 -Continue Lyrica PRN (9) Obsessive compulsive disorder: Plan: Chronic -Continue Fluvoxamine -Continue Buspirone Admission and Anticipated Discharge Date Admission Date: July 29, 2023 Subjective Patient reports she continues to have pain. She reports she is unable to bear weighgt on affected side. Review of Systems Review of Systems: All systems reviewed & are unremarkable except as noted in HPI & below Physical Exam Physical Exam: General: patient resting comfortably, NAD, non-toxic in appearance, AA&O x 4 Skin: warm, dry, intact, no rashes or lesions Ext: warm, 2+ pulses in UE/LE bilaterally, serosangeuinoeus drainage of left hip Neuro: nonfocal, patient AA&O x 4 Results & Data Results & Data Vital Signs (Past 12 Hours) Vital Signs Temp Pulse Resp BP Pulse Ox O2 Del Method 08/08/23 07:25 36.5 C 78 16 147/78 H 96 Room Air PG Care Time/CCT Total # of Minutes Spent Total Time Spent with Patient: Total time spent is greater than 50% in coordination of care (as documented) at patient's floor/unit and/or counseling patient: Coding Level of Care Code 05452 SUB INP/OBS CARE 2/35MIN Diagnoses Left hip postoperative wound infection T81.49XA Weakness R53.1 Elevated troponin R79.89 Elevated CK R74.8 Sacral wound S31.000A Hypercholesterolemia E78.00 Atrial fibrillation I48.91 Atrial fibrillation type: unspecified Type 2 diabetes mellitus with other specified complication, with long-term current 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 E11.69; Z79.4 Diabetes mellitus complication status: with other specified complication Diabetes mellitus mcc insulin use: with middle or intermediate school principal use Obsessive compulsive disorder F42.9 (7) Atrial fibrillation Atrial fibrillation type: unspecified Qualified Code(s): I48.91 - Unspecified atrial fibrillation (8) Type 2 diabetes mellitus Diabetes mellitus complication status: with other specified complication Diabetes mellitus middle or intermediate school principal insulin use: with middle or intermediate school principal use Qualified Code(s): E11.69 - Type 2 diabetes mellitus with other specified complication; Z79.4 - long term care social worker (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
--- NOTE | 2023-08-08 14:18 | Ultrasound Report ---
Ultrasound guided left hip fluid collection aspiration INDICATION: 4.9 cm lateral subcutaneous left hip fluid collection COMPARISON: MRI left hip 08/07/2023 PROCEDURE: Procedure and risks were explained. Informed consent was obtained. A final timeout was com pleted. The left lateral hip was prepped and draped in sterile fashion. 1% buffered lidocaine was uti lized for skin anesthesia. Utilizing ultrasound guidance, a 5 [place] safety centesis catheter was advanced into the complex appe aring left lateral subcutaneous hip fluid collection. Ultrasound images were obtained. 2 aspirates we re obtained yielding approximately 2 mL of purulent appearing fluid. This was sent to the lab for cul ture analysis. The catheter was removed and Band-Aid applied. The patient tolerated the procedure wel l. IMPRESSION: Ultrasound-guided left hip fluid collection aspiration as above. Performed, dictated, and signed by George Craven PA-C; to be co-signed by Dr. Ahsan Rebolledo. Electronically signed by: Ahsan Rebolledo M.D. 08/08/2023 5:34 PM
--- NOTE | 2023-08-08 15:42 | Infectious Disease Progress Nt ---
Date of Service August 08, 2023 Assessment & Plan (1) Left hip postoperative wound infection: (2) MSSA (methicillin susceptible Staphylococcus aureus) infection: (3) Acute kidney injury: (4) Chronic kidney disease, stage 4 (severe): Plan 62yo F with h/o T2DM, afib, CKD, chronic sacral wound (last debrided 05/06/23), recent admission to [facility] 04/08 - 05/10/23 after fall and L femur s/p repair with L hip cemented bipolar hemiarthroplasty 04/09/23, who presented to [facility] ED on 07/29/23 with several weeks of L hip mechanical instability, and 3 weeks of groin pain, feeling like the hardware was coming out, and night sweats. Found to have L hip drainage from incision site. Initial labs with normal WBC, Cr 1.98>>1.84, AST 109, ALT 76, CK 473, CRP 0.70>>3.20, ESR 26. L hip XR negative. L hip CT with Posterior soft tissue swelling is seen without evidence of drainable fluid collection. Expected postsurgical changes status post femoral neck fixation. On 07/30, superficial wound cx with MSSA; g/s with rare GNRs and mod GPCs. S/p L hip aspiration on 07/30 at 2 sites, both growing Corynebacterium (per Dr. Childress, hip aspiration x 2 yielded no fluid, only a small amount of blood but was sent for cx just in case). ID consulted for L hip wound infection with suspected L hip PJI. L knee XR on 08/04 with moderate sized joint effusion, osteoarthritis. S/p L knee aspiration 08/06 which was 25cc of clear fluid, clinically no infected appearance. MRI left hip limited and unable to be completed, left hip arthroplasty with adjacent lateral subcutaneous fluid collection measuring 4.9cm. S/p ultrasound guided left hip fluid collection aspiration on 08/08 (per not, 2 mL of purulent fluid aspirated and sent for cx). Orthopedics doesnt feel that the hip joint is infected. MRI was limited, but did note subcutaneous collection which has now been aspirated. It is possible that this could have been the source of her ongoing pain and elevated CRP. She has been deescalated down to cefazolin, which is reasonable. I do note the skin lesly reported in the left hip aspirate cultures, which further supports that the Corynebacterium could be a contaminant. # L hip wound infection and subcutaneous collection - L hip WCx + MSSA and with GNRs on gram stain, L hip aspiration + Corynebacterium # h/o L femur fracture s/p repair 04/09/23 # L knee effusion s/p arthrocentesis w/ removal of 25 mL clear, serous fluid on 08/06 (no studies sent) # PATY on CKD - f/u cultures from hip collection aspiration - cont cefazolin 2g IV q8h - if no other organism are identified on 08/08 cultures, and if she is clinically improving, then we can aim to complete a regimen with cefadroxil 500 mg PO twice daily for 10-14 days starting from aspiration of hip collection (start 08/08) with close outpatient follow up ID will continue to follow. If questions or concerns, contact Infectious Disease Call Center . Argenis Bosch MD [facility], Division of Infectious Diseases [facility]: [phone] Admission and Anticipated Discharge Date Admission Date: July 29, 2023 Subjective This patient recommendation is based on a telemedicine consult request which was completed asynchronously through chart review and information provided by the primary physician. The patient was not seen or examined today. The evaluation is consultative in nature and all patient care and treatment decisions can either be accepted or rejected by the patient's primary hospital-based treating physician using their own independent medical judgment for their patient. Time Spent Reviewing Chart: 21 - 30 minutes Results & Data Vital Signs (Past 12 Hours) Vital Signs Temp Pulse Resp BP Pulse Ox O2 Del Method 08/08/23 15:14 36.8 C 50 L 16 127/68 94 Room Air 08/08/23 07:25 36.5 C 78 16 147/78 H 96 Room Air Diagnostic Findings MRI reviewd.
[2023-08-09 08:06] LABS: Hematocrit (blood only) 32.2 % (37.0-47.0); Hemoglobin 9.8 g/dl (12.0-16.0); Mean Corpuscular Hemoglobin 25.6 pg (25.0-34.0); Mean Corpuscular Hgb Conc 30.4 g/dL (32.0-36.0); Mean Corpuscular Volume 84.1 fL (80.0-100.0); Mean Platelet Volume 11.8 fL (9.4-12.4); Platelet Count 130 K/uL (130-400); RDW Coefficient of Variation 15.3 % (11.5-14.5); RDW Standard Deviation 46.3 fL (36.4-46.3); Red Blood Count 3.83 M/uL (4.20-5.40)
[2023-08-09 08:30] LABS: BUN Creatinine Ratio 16.5 (10-20); C Reactive Protein 0.93 mg/dl (0-0.5); Calcium 7.9 mg/dl (8.6-10.3); Creatinine Clr Calc Pharmacy 32.6 ml/min; Est GFR (African American) 26.9 ml/min; Est GFR (Non-African American) 23.2 ml/min; Potassium 5.1 mmol/L (3.5-5.1)
[2023-08-09] MEDS: ceFAZolin 2000MG 2,000 MG/15 ML SYR IV SCH (12:34)
--- NOTE | 2023-08-09 16:38 | Infectious Disease Progress Nt ---
Date of Service August 09, 2023 Assessment & Plan (1) Left hip postoperative wound infection: (2) MSSA (methicillin susceptible Staphylococcus aureus) infection: (3) Acute kidney injury: (4) Chronic kidney disease, stage 4 (severe): Plan 62yo F with h/o T2DM, afib, CKD, chronic sacral wound (last debrided 05/06/23), recent admission to [facility] 04/08 - 05/10/23 after fall and L femur s/p repair with L hip cemented bipolar hemiarthroplasty 04/09/23, who presented to [facility] ED on 07/29/23 with several weeks of L hip mechanical instability, and 3 weeks of groin pain, feeling like the hardware was coming out, and night sweats. Found to have L hip drainage from incision site. Initial labs with normal WBC, Cr 1.98>>1.84>2.01, AST 109, ALT 76, CK 473, CRP 0.70>>3.20, ESR 26. L hip XR negative. L hip CT with Posterior soft tissue swelling is seen without evidence of drainable fluid collection. Expected postsurgical changes status post femoral neck fixation. On 07/30, superficial wound cx with MSSA. S/p L hip aspiration on 07/30 at 2 sites, both growing Corynebacterium (per Dr. Childress, hip aspiration x 2 yielded no fluid, only a small amount of blood but was sent for cx just in case). ID consulted for L hip wound infection with suspected L hip PJI. L knee XR on 08/04 with moderate sized joint effusion, osteoarthritis. S/p L knee aspiration 08/06 which was 25cc of clear fluid, clinically no infected appearance. MRI left hip limited and unable to be completed, left hip arthroplasty with adjacent lateral subcutaneous fluid collection measuring 4.9cm. S/p ultrasound guided left hip SQ fluid collection aspiration on 08/08 (per not, 2 mL of purulent fluid aspirated and sent for cx). Orthopedics doesnt feel that the hip joint is infected. MRI was limited, but did note subcutaneous collection which has now been aspirated. It is possible that this could have been the source of her ongoing pain and elevated CRP. Continue on cefazolin while inpatient. Note the skin lesly reported in the left hip aspirate cultures, which further supports that the Corynebacterium could be a contaminant. # L hip subcutaneous collection s/p aspiration 08/08 cx pending # L hip wound infection - L hip swab WCx + MSSA and skin lesly, L hip arthrocentesis + Corynebacterium and skin lesly (per ortho low suspicion for joint infection) # h/o L femur fracture s/p repair 04/09/23 # L knee effusion s/p arthrocentesis w/ removal of 25 mL clear, serous fluid on 08/06 (no studies sent) # PATY on CKD - f/u cultures from hip abscess aspiration from 08/08 (so far no growth) - cont cefazolin 2g IV q8h - if no other organism are identified on 08/08 cultures, and if she is clinically improving, then we can aim to complete a regimen with cefadroxil 500 mg PO twice daily for 14 days starting from aspiration of hip collection (start 08/08) with close outpatient follow up ID will continue to follow. If questions or concerns, contact Infectious Disease Call Center . Argenis Bosch MD [facility], Division of Infectious Diseases [facility]: [phone] Admission and Anticipated Discharge Date Admission Date: July 29, 2023 Subjective Subsequent visit was provided via telemedicine using two-way real-time interactive telecommunication between the patient and the telemedicine provider. For the duration of the visit, the provider was performing the assessment from a different facility than the patient. This includesuse of bluetooth stethoscope forauscultationperformed by the telepresenter that the telemedicine provider can hear if described in the physical exam. Right Of Way Buyer contact information: Please call [facility] Connect Call Center [phone]. (Phone Number For Physician Use Only) After establishing a telemedicine visit, patient was: Patient/authorized rep acknowledged consent and understanding and Gave permission to continue telehealth session Time Spent with Patient: Subsequent => 55 min Patient complaining of pain in left hip area. No vomiting, diarrhea. Physical Exam Physical Exam: General: Awake, alert, no acute distress HEENT: NC/AT, EOMI, mmm Neck: supple Lungs: respirations non-labored Heart: nl peripheral perfusion Abdomen: soft, NT/ND Ext: left hip wound with serous drainage, erythema Results & Data Vital Signs (Past 12 Hours) Vital Signs Temp Pulse Pulse Resp BP Pulse Ox O2 Del Method 08/09/23 14:53 36.9 C 53 L 16 110/48 L 95 Room Air 08/09/23 12:07 36.9 C 79 16 112/69 99 Room Air 08/09/23 08:41 80 128/68 08/09/23 07:10 36.9 C 78 18 131/66 94 Room Air
--- NOTE | 2023-08-09 21:51 | Hospitalist Progress Note ---
Date of Service August 09, 2023 Assessment & Plan (1) Left hip postoperative wound infection: Plan: Patient presented with increasing pain decreasing muscular strength and serous drainage from the incision line of her left hip. This grew MSSA and corynebacterium. Infectious disease feels that if joint infection is not considered that the corynebacterium is likely contaminant recommending treatment for MSSA. Orthopedics also does not believe this is a joint infection and we are transitioning to oral medication treating her MSSA. However the patient has been insistent that she has increasing pain and cannot stand or walk. She feels she cannot go to rehab not being able to stand or walk. Patient already has suffered a decubitus ulcer from her previous hospital stay due to immobility. Orthopedics feels the patient needs to attempt to participate in physical therapy to a much larger extent however the patient is adamant that her pain is such that she cannot do this. After discussion with infectious disease they recommend possibility of doing an MRI of her joint to get further information about the prosthetic joint although this may be challenging to interpret appropriately. The patient also mentioned that if we cannot come to a resolution in our facility she MAC recommend a second opinion even if that were to require transfer to another facility MRI completed showing same fluid collection. IR consonsulted. 2ml of thick purulent fluid was aspirated. Infectious disease asking microbiology to perform sensitivities on a corynebacterium. awaiting for sensitivities (2) Weakness: Plan: Severe muscular deconditioning -Continue pain control with Oxycodone PRN - patient is on many potentially sedating agents - caution with coadministration will need rehab stay may not qualify for [facility] or other subacute rehab however cannot participate fully in physical therapy to get insurance authorization (3) Elevated troponin: Plan: Patient denies chest pain. No acute ischemic changes on EKG. -Troponin mildly elevated at 41.6, improved now to 38.2 -Feels this is demand ischemia from infection. (4) Elevated CK: Plan: Mildly elevated CK at 753, likely from sacral decubitus poa (5) Sacral wound: Plan: Pressure ulcer/injury of sacrum, stage 3, POA Patient with known sacral wound. She reports home nursing changes dressing and bandages the wound daily. No reported pain or drainage. -Turn and position q 2 hours -Wound Care following (6) Hypercholesterolemia: Plan: Chronic. Stable -Continue Atorvastatin 80mg po qHS (7) Atrial fibrillation: Plan: Paroxysmal s/p cardioversion in 2020. Patient continues in normal sinus rhythm with rate control and good blood pressure -Continue Metoprolol -Consider resuming anticoagulation, once postoperative stability follow-up on Lovenox currently for DVT prevention Chronic stable hypertension is controlled with metoprolol and diltiazem (8) Type 2 diabetes mellitus: Plan: Chronic. Last HgbA1C on 03/06/23=7 -ISS -Goal blood sugar 110 - 140 -Continue Lyrica PRN (9) Obsessive compulsive disorder: Plan: Chronic -Continue Fluvoxamine -Continue Buspirone Admission and Anticipated Discharge Date Admission Date: July 29, 2023 Subjective Patient reports no new symptoms Review of Systems Review of Systems: All systems reviewed & are unremarkable except as noted in HPI & below Physical Exam Physical Exam: General: patient resting comfortably, NAD, non-toxic in appearance, AA&O x 4 Skin: warm, dry, intact, no rashes or lesions Ext: warm, 2+ pulses in UE/LE bilaterally, serosangeuinoeus drainage of left hip Neuro: nonfocal, patient AA&O x 4 Results & Data Results & Data Vital Signs (Past 12 Hours) Vital Signs Temp Pulse Pulse Resp BP Pulse Ox O2 Del Method 08/09/23 14:53 36.9 C 53 L 16 110/48 L 95 Room Air 08/09/23 12:07 36.9 C 79 16 112/69 99 Room Air PG Care Time/CCT Total # of Minutes Spent Total Time Spent with Patient: Total time spent is greater than 50% in coordination of care (as documented) at patient's floor/unit and/or counseling patient: Coding Level of Care Code 90818 SUB INP/OBS CARE 2/35MIN Diagnoses Left hip postoperative wound infection T81.49XA Weakness R53.1 Elevated troponin R79.89 Elevated CK R74.8 Sacral wound S31.000A Hypercholesterolemia E78.00 Atrial fibrillation I48.91 Atrial fibrillation type: unspecified Type 2 diabetes mellitus with other specified complication, with long-term current 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 E11.69; Z79.4 Diabetes mellitus complication status: with other specified complication Diabetes mellitus terminal supervisor insulin use: with terminal supervisor use Obsessive compulsive disorder F42.9 (7) Atrial fibrillation Atrial fibrillation type: unspecified Qualified Code(s): I48.91 - Unspecified atrial fibrillation (8) Type 2 diabetes mellitus Diabetes mellitus complication status: with other specified complication Diabetes mellitus half-way insulin use: with terminal supervisor use Qualified Code(s): E11.69 - Type 2 diabetes mellitus with other specified complication; Z79.4 - halfway (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
[2023-08-10 07:11] LABS: Hematocrit (blood only) 33.2 % (37.0-47.0); Hemoglobin 10.3 g/dl (12.0-16.0); Mean Corpuscular Volume 83.8 fL (80.0-100.0); Mean Platelet Volume 11.7 fL (9.4-12.4); Platelet Count 134 K/uL (130-400); RDW Coefficient of Variation 15.3 % (11.5-14.5); RDW Standard Deviation 46.3 fL (36.4-46.3); Red Blood Count 3.96 M/uL (4.20-5.40)
[2023-08-10 07:19] LABS: BUN Creatinine Ratio 16.7 (10-20); C Reactive Protein 1.02 mg/dl (0-0.5); Calcium 7.8 mg/dl (8.6-10.3); Creatinine Clr Calc Pharmacy 32.1 ml/min; Est GFR (African American) 26.3 ml/min; Est GFR (Non-African American) 22.7 ml/min; Potassium 4.9 mmol/L (3.5-5.1)
--- NOTE | 2023-08-10 07:52 | Surgery Progress Note ---
Date of Service August 10, 2023 Assessment & Plan (1) Left hip postoperative wound infection: Plan: At this point I recommend continued medical management. Continue antibiotics. Routine wound care. She can fully weight-bear as tolerated. Will continue to f ollow her during her hospitalization. Any orthopedic questions can be directed at [phone] Admission and Anticipated Discharge Date Admission Date: July 29, 2023 Subjective 62-year-old female 4 months out from left cemented bipolar hip arthroplasty complicated by a recent wound infection. She seems to be doing bit better. Was having quite a bit of pain several days ago but seems to be resolving. The wound itself looks to be stable and if anything may be a little bit improved. Just a trace bit of drainage. Physical Exam Physical Exam: Physical nation is a pleasant elderly female. She is lying in bed. Looks comfortable. Examination left hip and leg reveals the leg to be completely benign. She does have a small pinpoint area of some serous type drainage. Looks to be somewhat improved. Less swelling. Less pain. She is neurologically intact Results & Data Vital Signs (Past 12 Hours) Vital Signs Temp Pulse Resp BP Pulse Ox O2 Del Method 08/09/23 22:16 37.0 C 78 18 118/69 91 Room Air PG Care Time/CCT Total # of Minutes Spent Total Time Spent with Patient: Total time spent is greater than 50% in coordination of care (as documented) at patient's floor/unit and/or counseling patient: Coding Level of Care Code 07877 SUB INP/OBS CARE 2/35MIN Diagnoses Left hip postoperative wound infection T81.49XA
[2023-08-10] MEDS: ACETAMINOPHEN 325 MG TAB PO ONE (16:49)
--- NOTE | 2023-08-10 21:49 | Hospitalist Progress Note ---
Date of Service August 10, 2023 Assessment & Plan (1) Left hip postoperative wound infection: Plan: Patient presented with increasing pain decreasing muscular strength and serous drainage from the incision line of her left hip. This grew MSSA and corynebacterium. Infectious disease feels that if joint infection is not considered that the corynebacterium is likely contaminant recommending treatment for MSSA. Orthopedics also does not believe this is a joint infection and we are transitioning to oral medication treating her MSSA. However the patient has been insistent that she has increasing pain and cannot stand or walk. She feels she cannot go to rehab not being able to stand or walk. Patient already has suffered a decubitus ulcer from her previous hospital stay due to immobility. Orthopedics feels the patient needs to attempt to participate in physical therapy to a much larger extent however the patient is adamant that her pain is such that she cannot do this. After discussion with infectious disease they recommend possibility of doing an MRI of her joint to get further information about the prosthetic joint although this may be challenging to interpret appropriately. The patient also mentioned that if we cannot come to a resolution in our facility she MAC recommend a second opinion even if that were to require transfer to another facility MRI completed showing same fluid collection. IR consulted. 2ml of thick purulent fluid was aspirated. awaiting cultures. patient still has drainage on affected side. Infectious disease asking microbiology to perform sensitivities on a corynebacterium. awaiting for sensitivities (2) Weakness: Plan: Severe muscular deconditioning -Continue pain control with Oxycodone PRN - patient is on many potentially sedating agents - caution with coadministration will need rehab stay may not qualify for [facility] or other subacute rehab however cannot participate fully in physical therapy to get insurance authorization (3) Elevated troponin: Plan: Patient denies chest pain. No acute ischemic changes on EKG. -Troponin mildly elevated at 41.6, improved now to 38.2 -Feels this is demand ischemia from infection. (4) Elevated CK: Plan: Mildly elevated CK at 753, likely from sacral decubitus poa (5) Sacral wound: Plan: Pressure ulcer/injury of sacrum, stage 3, POA Patient with known sacral wound. She reports home nursing changes dressing and bandages the wound daily. No reported pain or drainage. -Turn and position q 2 hours -Wound Care following (6) Hypercholesterolemia: Plan: Chronic. Stable -Continue Atorvastatin 80mg po qHS (7) Atrial fibrillation: Plan: Paroxysmal s/p cardioversion in 2020. Patient continues in normal sinus rhythm with rate control and good blood pressure -Continue Metoprolol -Consider resuming anticoagulation, once postoperative stability follow-up on Lovenox currently for DVT prevention Chronic stable hypertension is controlled with metoprolol and diltiazem (8) Type 2 diabetes mellitus: Plan: Chronic. Last HgbA1C on 03/06/23=7 -ISS -Goal blood sugar 110 - 140 -Continue Lyrica PRN (9) Obsessive compulsive disorder: Plan: Chronic -Continue Fluvoxamine -Continue Buspirone Admission and Anticipated Discharge Date Admission Date: July 29, 2023 Subjective Patient reports she was able to bear some more weight on her affected leg. Review of Systems Review of Systems: All systems reviewed & are unremarkable except as noted in HPI & below Physical Exam Physical Exam: General: patient resting comfortably, NAD, non-toxic in appearance, AA&O x 4 Skin: warm, dry, intact, no rashes or lesions Ext: warm, 2+ pulses in UE/LE bilaterally, serosangeuinoeus drainage of left hip Neuro: nonfocal, patient AA&O x 4 Results & Data Results & Data Vital Signs (Past 12 Hours) Vital Signs Temp Pulse Resp BP Pulse Ox O2 Del Method 08/10/23 21:03 36.9 C 54 L 16 113/58 L 93 Room Air 08/10/23 15:13 36.9 C 59 L 18 103/43 L 97 Room Air PG Care Time/CCT Total # of Minutes Spent Total Time Spent with Patient: Total time spent is greater than 50% in coordination of care (as documented) at patient's floor/unit and/or counseling patient: Coding Level of Care Code 15841 SUB INP/OBS CARE 2/35MIN Diagnoses Left hip postoperative wound infection T81.49XA Weakness R53.1 Elevated troponin R79.89 Elevated CK R74.8 Sacral wound S31.000A Hypercholesterolemia E78.00 Atrial fibrillation I48.91 Atrial fibrillation type: unspecified Type 2 diabetes mellitus with other specified complication, with long-term current 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 E11.69; Z79.4 Diabetes mellitus complication status: with other specified complication Diabetes mellitus mcfp insulin use: with [facility] use Obsessive compulsive disorder F42.9 (7) Atrial fibrillation Atrial fibrillation type: unspecified Qualified Code(s): I48.91 - Unspecified atrial fibrillation (8) Type 2 diabetes mellitus Diabetes mellitus complication status: with other specified complication Diabetes mellitus mcfp insulin use: with press tender long goods use Qualified Code(s): E11.69 - Type 2 diabetes mellitus with other specified complication; Z79.4 - telephoto engineer (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
[2023-08-10] MEDS: ACETAMINOPHEN 325 MG TAB PO SCH (22:13)
[2023-08-11 06:41] LABS: Hematocrit (blood only) 30.4 % (37.0-47.0); Hemoglobin 9.5 g/dl (12.0-16.0); Mean Corpuscular Hgb Conc 31.3 g/dL (32.0-36.0); Mean Corpuscular Volume 83.1 fL (80.0-100.0); Mean Platelet Volume 11.3 fL (9.4-12.4); Platelet Count 124 K/uL (130-400); RDW Coefficient of Variation 14.9 % (11.5-14.5); RDW Standard Deviation 45.1 fL (36.4-46.3); Red Blood Count 3.66 M/uL (4.20-5.40); White Blood Count 5.83 K/ul (4.8-10.8)
[2023-08-11 07:00] LABS: Creatinine Clr Calc Pharmacy 34.1 ml/min; Est GFR (African American) 28.3 ml/min; Est GFR (Non-African American) 24.4 ml/min
--- NOTE | 2023-08-11 08:25 | Surgery Progress Note ---
Date of Service August 11, 2023 Assessment & Plan (1) Left hip postoperative wound infection: Plan: 62-year-old female with multiple medical comorbidities 4 and half months out from a cemented bipolar hip arthroplasty with a recently draining wound. From all accounts it looks like this is mostly superficial but hard to tell. She seems improved since his ultrasound-guided aspiration. The culture results are no growth to date. By exam there is seems to be much less drainage. Hopefully this will fix the issue. Plan: At this point I continue the antibiotics. I think the PPO antibiotics anytime. Continue routine wound care. Will continue to follow her. Feel free to reach out with any questions. I was not aware she that she had this MRI done but the ultrasound-guided aspiration would have been our recommendation and was appropriate. She seems to be doing better. She can weight-bear as tolerated. No particular orthopedic restrictions. Admission and Anticipated Discharge Date Admission Date: July 29, 2023 Subjective 62-year-old female 4 and half months out from a cemented bipolar hip arthroplasty with drainage from the incision site. She has been in the hospital couple weeks ago. Initially was a fairly pain-free but then developed the pain. We did attempt to aspirate this unsuccessfully. She had his MRI which I was unaware of until recently and had a ultrasound-guided aspiration which by report was about 4 to 5 cc of fluid. This sent to the lab. She says she is feeling better now. Cultures have been no growth. No other complaints. See pain seems to be better. Physical Exam Physical Exam: Examination of the left hip reveals a dressing be in place. There is very minimal if any drainage on it today. No swelling. She is neurologically intact Results & Data Vital Signs (Past 12 Hours) Vital Signs Temp Pulse Resp BP Pulse Ox O2 Del Method 08/11/23 07:11 36.6 C 79 18 144/69 H 98 Room Air 08/10/23 21:03 36.9 C 54 L 16 113/58 L 93 Room Air Laboratory Results Culture results from the fluid are no growth to date. I do not see any cell count or differential on the fluid. PG Care Time/CCT Total # of Minutes Spent Total Time Spent with Patient: Total time spent is greater than 50% in coordination of care (as documented) at patient's floor/unit and/or counseling patient: Coding Level of Care Code 86701 SUB INP/OBS CARE 2/35MIN Diagnoses Left hip postoperative wound infection T81.49XA
--- NOTE | 2023-08-11 23:00 | Hospitalist Progress Note ---
Date of Service August 11, 2023 Assessment & Plan (1) Left hip postoperative wound infection: Plan: Patient presented with increasing pain decreasing muscular strength and serous drainage from the incision line of her left hip. This grew MSSA and corynebacterium. Infectious disease feels that if joint infection is not considered that the corynebacterium is likely contaminant recommending treatment for MSSA. Orthopedics also does not believe this is a joint infection and we are transitioning to oral medication treating her MSSA. However the patient has been insistent that she has increasing pain and cannot stand or walk. She feels she cannot go to rehab not being able to stand or walk. Patient already has suffered a decubitus ulcer from her previous hospital stay due to immobility. Orthopedics feels the patient needs to attempt to participate in physical therapy to a much larger extent however the patient is adamant that her pain is such that she cannot do this. After discussion with infectious disease they recommend possibility of doing an MRI of her joint to get further information about the prosthetic joint although this may be challenging to interpret appropriately. The patient also mentioned that if we cannot come to a resolution in our facility she MAC recommend a second opinion even if that were to require transfer to another facility MRI completed showing same fluid collection. IR consulted. 2ml of thick purulent fluid was aspirated. awaiting cultures. patient still has drainage on affected side. Infectious disease asking microbiology to perform sensitivities on a corynebacterium. awaiting for sensitivities Clinically feeling slightly better. (2) Weakness: Plan: Severe muscular deconditioning -Continue pain control with Oxycodone PRN - patient is on many potentially sedating agents - caution with coadministration will need rehab stay may not qualify for [facility] or other subacute rehab however cannot participate fully in physical therapy to get insurance authorization (3) Elevated troponin: Plan: Patient denies chest pain. No acute ischemic changes on EKG. -Troponin mildly elevated at 41.6, improved now to 38.2 -Feels this is demand ischemia from infection. (4) Elevated CK: Plan: Mildly elevated CK at 753, likely from sacral decubitus poa (5) Sacral wound: Plan: Pressure ulcer/injury of sacrum, stage 3, POA Patient with known sacral wound. She reports home nursing changes dressing and bandages the wound daily. No reported pain or drainage. -Turn and position q 2 hours -Wound Care following (6) Hypercholesterolemia: Plan: Chronic. Stable -Continue Atorvastatin 80mg po qHS (7) Atrial fibrillation: Plan: Paroxysmal s/p cardioversion in 2020. Patient continues in normal sinus rhythm with rate control and good blood pressure -Continue Metoprolol -Consider resuming anticoagulation, once postoperative stability follow-up on Lovenox currently for DVT prevention Chronic stable hypertension is controlled with metoprolol and diltiazem (8) Type 2 diabetes mellitus: Plan: Chronic. Last HgbA1C on 03/06/23=7 -ISS -Goal blood sugar 110 - 140 -Continue Lyrica PRN (9) Obsessive compulsive disorder: Plan: Chronic -Continue Fluvoxamine -Continue Buspirone Admission and Anticipated Discharge Date Admission Date: July 29, 2023 Subjective Patient reports to continue to feel better Review of Systems Review of Systems: All systems reviewed & are unremarkable except as noted in HPI & below Physical Exam Physical Exam: General: patient resting comfortably, NAD, non-toxic in appearance, AA&O x 4 Skin: warm, dry, intact, no rashes or lesions Ext: warm, 2+ pulses in UE/LE bilaterally, serosangeuinoeus drainage of left hip Neuro: nonfocal, patient AA&O x 4 Results & Data Results & Data Vital Signs (Past 12 Hours) Vital Signs Temp Pulse Resp BP Pulse Ox O2 Del Method 08/11/23 20:32 36.7 C 64 16 135/80 95 Room Air 08/11/23 16:03 36.9 C 77 18 129/70 96 Room Air PG Care Time/CCT Total # of Minutes Spent Total Time Spent with Patient: Total time spent is greater than 50% in coordination of care (as documented) at patient's floor/unit and/or counseling patient: Coding Level of Care Code 58991 SUB INP/OBS CARE 2/35MIN Diagnoses Left hip postoperative wound infection T81.49XA Weakness R53.1 Elevated troponin R79.89 Elevated CK R74.8 Sacral wound S31.000A Hypercholesterolemia E78.00 Atrial fibrillation I48.91 Atrial fibrillation type: unspecified Type 2 diabetes mellitus with other specified complication, with long-term current 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 E11.69; Z79.4 Diabetes mellitus complication status: with other specified complication Diabetes mellitus watermelon inspector insulin use: with senior living use Obsessive compulsive disorder F42.9 (7) Atrial fibrillation Atrial fibrillation type: unspecified Qualified Code(s): I48.91 - Unspecified atrial fibrillation (8) Type 2 diabetes mellitus Diabetes mellitus complication status: with other specified complication Diabetes mellitus watermelon inspector insulin use: with watermelon inspector use Qualified Code(s): E11.69 - Type 2 diabetes mellitus with other specified complication; Z79.4 - watermelon inspector (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
[2023-08-12 06:42] LABS: Hematocrit (blood only) 32.2 % (37.0-47.0); Hemoglobin 9.7 g/dl (12.0-16.0); Mean Corpuscular Hemoglobin 25.5 pg (25.0-34.0); Mean Corpuscular Hgb Conc 30.1 g/dL (32.0-36.0); Mean Corpuscular Volume 84.5 fL (80.0-100.0); Mean Platelet Volume 11.5 fL (9.4-12.4); Platelet Count 132 K/uL (130-400); RDW Coefficient of Variation 15.3 % (11.5-14.5); RDW Standard Deviation 46.7 fL (36.4-46.3); Red Blood Count 3.81 M/uL (4.20-5.40); White Blood Count 5.87 K/ul (4.8-10.8)
[2023-08-12 06:51] LABS: BUN Creatinine Ratio 18.6 (10-20); C Reactive Protein 1.02 mg/dl (0-0.5); Calcium 7.9 mg/dl (8.6-10.3); Creatinine Clr Calc Pharmacy 33.1 ml/min; Est GFR (African American) 27.3 ml/min; Est GFR (Non-African American) 23.6 ml/min; Potassium 4.8 mmol/L (3.5-5.1)
--- NOTE | 2023-08-12 17:56 | Infectious Disease Progress Nt ---
Date of Service August 12, 2023 Assessment & Plan (1) Left hip postoperative wound infection: (2) MSSA (methicillin susceptible Staphylococcus aureus) infection: (3) Acute kidney injury: (4) Chronic kidney disease, stage 4 (severe): Plan 62yo F with h/o T2DM, afib, CKD, chronic sacral wound (last debrided 05/06/23), recent admission to [facility] 04/08 - 05/10/23 after fall and L femur s/p repair with L hip cemented bipolar hemiarthroplasty 04/09/23, who presented to [facility] ED on 07/29/23 with several weeks of L hip mechanical instability, and 3 weeks of groin pain, feeling like the hardware was coming out, and night sweats. Found to have L hip drainage from incision site. Initial labs with normal WBC, Cr 1.98>>1.84>2.01, AST 109, ALT 76, CK 473, CRP 0.70>>3.20, ESR 26. L hip XR negative. L hip CT with Posterior soft tissue swelling is seen without evidence of drainable fluid collection. Expected postsurgical changes status post femoral neck fixation. On 07/30, superficial wound cx with MSSA. S/p L hip aspiration on 07/30 at 2 sites, both growing Corynebacterium (per Dr. Childress, hip aspiration x 2 yielded no fluid, only a small amount of blood but was sent for cx just in case). ID consulted for L hip wound infection with suspected L hip PJI. L knee XR on 08/04 with moderate sized joint effusion, osteoarthritis. S/p L knee aspiration 08/06 which was 25cc of clear fluid, clinically no infected appearance. MRI left hip limited and unable to be completed, left hip arthroplasty with adjacent lateral subcutaneous fluid collection measuring 4.9cm. S/p ultrasound guided left hip SQ fluid collection aspiration on 08/08 (per not, 2 mL of purulent fluid aspirated and sent for cx). Doing well. Orthopedics doesnt feel that the hip joint is infected. MRI was limited, but did note subcutaneous collection which has now been aspirated. Likely that this could have been the source of her ongoing pain and elevated CRP. Continue on cefazolin while inpatient. Note the skin lesly reported in the left hip aspirate cultures, which further supports that the Corynebacterium could be a contaminant. # L hip subcutaneous collection s/p aspiration 08/08 cx ngtd # L hip wound infection - L hip swab WCx + MSSA and skin lesly, L hip arthrocentesis + Corynebacterium and skin lesly (per ortho low suspicion for joint infection) # h/o L femur fracture s/p repair 04/09/23 # L knee effusion s/p arthrocentesis w/ removal of 25 mL clear, serous fluid on 08/06 (no studies sent) # PATY on CKD - cont cefazolin 2g IV q8h - f/u cultures from 08/08 no growth - when shes ready for discharge, complete a regimen with cefadroxil 500 mg PO twice daily for 14 days starting from aspiration of hip collection (start 08/08, eot 08/20) with close outpatient follow up ID will discontinue active follow up at this time. Please do not hesitate to reconsult the Infectious Diseases service as needed. Argenis Bosch MD [facility], Division of Infectious Diseases [facility]: [phone] Admission and Anticipated Discharge Date Admission Date: July 29, 2023 Subjective Subsequent visit was provided via telemedicine using two-way real-time interactive telecommunication between the patient and the telemedicine provider. For the duration of the visit, the provider was performing the assessment from a different facility than the patient. This includesuse of bluetooth stethoscope forauscultationperformed by the telepresenter that the telemedicine provider can hear if described in the physical exam. Clay Machine Operator contact information: Please call [facility] Call Center . (Phone Number For Physician Use Only) After establishing a telemedicine visit, patient was: Patient/authorized rep acknowledged consent and understanding and Gave permission to continue telehealth session Time Spent with Patient: Subsequent => 55 min Patient feels like her pain is improving. No acute issues. Physical Exam Constitutional: General: Awake, alert, no acute distress HEENT: NC/AT, EOMI, mmm Neck: supple Lungs: respirations non-labored Heart: nl peripheral perfusion Abdomen: soft, NT/ND Ext: left hip wound site improving, no drainage Results & Data Vital Signs (Past 12 Hours) Vital Signs Temp Pulse Pulse Resp BP Pulse Ox O2 Del Method 08/12/23 15:38 36.9 C 54 L 18 120/66 95 Room Air 08/12/23 11:45 36.3 C L 54 L 14 126/56 L 95 Room Air 08/12/23 08:06 36.6 C 68 12 171/79 H 98 Room Air Laboratory Results labs reviewed 07/29 BCx: ngtd 07/29 UCx: Kleb pn (R-zosyn, unasyn) (UA 0-5 WBC) 07/30 WCX left hip (superficial swab): MSSA moderate, low counts of skin lesly 07/30 WCX 1 left hip - aspirate: Corynebacterium rare 07/30 WCx 2 left hip - aspirate: Corynebacterium few (pending sensi), low counts of probable skin lesly 2/22 L hip SQ collection: ngtd
--- NOTE | 2023-08-12 20:51 | Hospitalist Progress Note ---
Date of Service August 12, 2023 Assessment & Plan (1) Left hip postoperative wound infection: Plan: Patient presented with increasing pain decreasing muscular strength and serous drainage from the incision line of her left hip. This grew MSSA and corynebacterium. Infectious disease feels that if joint infection is not considered that the corynebacterium is likely contaminant recommending treatment for MSSA. Orthopedics also does not believe this is a joint infection and we are transitioning to oral medication treating her MSSA. However the patient has been insistent that she has increasing pain and cannot stand or walk. She feels she cannot go to rehab not being able to stand or walk. Patient already has suffered a decubitus ulcer from her previous hospital stay due to immobility. Orthopedics feels the patient needs to attempt to participate in physical therapy to a much larger extent however the patient is adamant that her pain is such that she cannot do this. After discussion with infectious disease they recommend possibility of doing an MRI of her joint to get further information about the prosthetic joint although this may be challenging to interpret appropriately. The patient also mentioned that if we cannot come to a resolution in our facility she MAC recommend a second opinion even if that were to require transfer to another facility MRI completed showing same fluid collection. IR consulted. 2ml of thick purulent fluid was aspirated. awaiting cultures. patient still has drainage on affected side. Infectious disease asking microbiology to perform sensitivities on a corynebacterium. awaiting for sensitivities Clinically feeling slightly better. Will obtain repeat MR on 08/13 (2) Weakness: Plan: Severe muscular deconditioning -Continue pain control with Oxycodone PRN - patient is on many potentially sedating agents - caution with coadministration will need rehab stay may not qualify for [facility] or other subacute rehab however cannot participate fully in physical therapy to get insurance authorization (3) Elevated troponin: Plan: Patient denies chest pain. No acute ischemic changes on EKG. -Troponin mildly elevated at 41.6, improved now to 38.2 -Feels this is demand ischemia from infection. (4) Elevated CK: Plan: Mildly elevated CK at 753, likely from sacral decubitus poa (5) Sacral wound: Plan: Pressure ulcer/injury of sacrum, stage 3, POA Patient with known sacral wound. She reports home nursing changes dressing and bandages the wound daily. No reported pain or drainage. -Turn and position q 2 hours -Wound Care following (6) Hypercholesterolemia: Plan: Chronic. Stable -Continue Atorvastatin 80mg po qHS (7) Atrial fibrillation: Plan: Paroxysmal s/p cardioversion in 2020. Patient continues in normal sinus rhythm with rate control and good blood pressure -Continue Metoprolol -Consider resuming anticoagulation, once postoperative stability follow-up on Lovenox currently for DVT prevention Chronic stable hypertension is controlled with metoprolol and diltiazem (8) Type 2 diabetes mellitus: Plan: Chronic. Last HgbA1C on 03/06/23=7 -ISS -Goal blood sugar 110 - 140 -Continue Lyrica PRN (9) Obsessive compulsive disorder: Plan: Chronic -Continue Fluvoxamine -Continue Buspirone Admission and Anticipated Discharge Date Admission Date: July 29, 2023 Subjective Patient reports her pain has improved, but it is still present. NOw about 6-7 out of 10 when she stands. Review of Systems Review of Systems: All systems reviewed & are unremarkable except as noted in HPI & below Physical Exam Physical Exam: General: patient resting comfortably, NAD, non-toxic in appearance, AA&O x 4 Skin: warm, dry, intact, no rashes or lesions Ext: warm, 2+ pulses in UE/LE bilaterally, serosangeuinoeus drainage of left hip Neuro: nonfocal, patient AA&O x 4 Results & Data Results & Data Vital Signs (Past 12 Hours) Vital Signs Temp Pulse Pulse Resp BP Pulse Ox O2 Del Method 08/12/23 15:38 36.9 C 54 L 18 120/66 95 Room Air 08/12/23 11:45 36.3 C L 54 L 14 126/56 L 95 Room Air PG Care Time/CCT Total # of Minutes Spent Total Time Spent with Patient: Total time spent is greater than 50% in coordination of care (as documented) at patient's floor/unit and/or counseling patient: Coding Level of Care Code 14783 SUB INP/OBS CARE 2/35MIN Diagnoses Left hip postoperative wound infection T81.49XA Weakness R53.1 Elevated troponin R79.89 Elevated CK R74.8 Sacral wound S31.000A Hypercholesterolemia E78.00 Atrial fibrillation I48.91 Atrial fibrillation type: unspecified Type 2 diabetes mellitus with other specified complication, with long-term current 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 E11.69; Z79.4 Diabetes mellitus complication status: with other specified complication Diabetes mellitus superintendent terminal insulin use: with superintendent terminal use Obsessive compulsive disorder F42.9 (7) Atrial fibrillation Atrial fibrillation type: unspecified Qualified Code(s): I48.91 - Unspecified atrial fibrillation (8) Type 2 diabetes mellitus Diabetes mellitus complication status: with other specified complication Diabetes mellitus superintendent terminal insulin use: with superintendent terminal use Qualified Code(s): E11.69 - Type 2 diabetes mellitus with other specified complication; Z79.4 - lobsterman (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
[2023-08-13 08:41] LABS: Hematocrit (blood only) 35.6 % (37.0-47.0); Hemoglobin 11.1 g/dl (12.0-16.0); Mean Corpuscular Hgb Conc 31.2 g/dL (32.0-36.0); Mean Corpuscular Volume 83.4 fL (80.0-100.0); Mean Platelet Volume 11.9 fL (9.4-12.4); Platelet Count 169 K/uL (130-400); RDW Coefficient of Variation 15.5 % (11.5-14.5); RDW Standard Deviation 46.5 fL (36.4-46.3); Red Blood Count 4.27 M/uL (4.20-5.40); White Blood Count 6.62 K/ul (4.8-10.8)
[2023-08-13 08:58] LABS: BUN Creatinine Ratio 17.4 (10-20); C Reactive Protein 0.7 mg/dl (0-0.5); Calcium 8.2 mg/dl (8.6-10.3); Creatinine Clr Calc Pharmacy 33.4 ml/min; Est GFR (African American) 27.6 ml/min; Est GFR (Non-African American) 23.8 ml/min; Potassium 5.2 mmol/L (3.5-5.1)
[2023-08-13] MEDS: D5W AND 1/2NSS 1,000 ML IV SCH (10:51)
[2023-08-13] MEDS: MoRPHine SULFATE 4 MG/ML 1 ML CARP\\VIAL IV PRN ×2 (16:23→21:45)
--- NOTE | 2023-08-13 19:58 | Magnetic Resonance Report ---
MRI OF THE LEFT HIP WITHOUT IV CONTRAST CLINICAL HISTORY: Left hip infection. COMPARISON STUDY: CT scan of the left hip dated 07/30/2023. Attempted MRI of the left hip dated 024. TECHNIQUE: MRI of the left hip and pelvis was attempted utilizing various T1 and T2-weighted sequence s in the axial, sagittal, and coronal planes. IV contrast was not administered for this examination. The examination is severely degraded by motion artifact, as well as by susceptibility artifact from a left hip arthroplasty. FINDINGS: There is a left hip arthroplasty in place. Susceptibility artifact from the arthroplasty pr ecludes evaluation of the left hip or acetabulum. Normal marrow signal intensity is maintained in the right proximal femur and the visualized sacrum and right hemipelvis. There is no MRI evidence of acu te fracture. There is no evidence of destructive bony lesion. Diffuse soft tissue edema is seen throu ghout the pelvis. There are two small fluid collections identified in the soft tissues of the left up per thigh. A small collection posterior to the left proximal femur on axial image #33 measures approx imately 6 x 1.5 x 4 cm. A smaller more superiorly located collection lateral to the greater trochante r on axial image #26 measures approximately 4 x 3 x 2.5 cm. These collections do not clearly communic ate with the left hip joint space. There is no evidence of avascular necrosis of the right femoral he ad. The hamstring tendons are grossly intact. The bladder is decompressed. There is free fluid in the cul-de-sac. The uterus is normal as imaged. There is generalized atrophy of the regional musculature . IMPRESSION: 1. The examination is severely degraded by motion artifact and susceptibility artifact from a left hi p arthroplasty. 2. Diffuse body wall edema is present throughout the pelvis. 3. There are two fluid collections identified in the soft tissues of the left upper thigh. These are located lateral to the greater trochanter of left femur and along the posterior aspect of the left pr oximal femoral shaft. These may represent seromas/hematomas. The sterility of these fluid collections cannot be assessed by imaging and abscess is not excluded. Clinical correlation will be essential. 4. There is nonspecific free fluid in the cul-de-sac. Dictated: 08/13/2023 7:28 PM Transcribed: 08/13/2023 7:52 PM Ayanna [id number] Sumit [id number] Electronically signed by: Bryn Jose M.D. 08/13/2023 7:56 PM
--- NOTE | 2023-08-14 07:31 | Hospitalist Progress Note ---
Date of Service August 13, 2023 Assessment & Plan (1) Left hip postoperative wound infection: Plan: Patient presented with increasing pain decreasing muscular strength and serous drainage from the incision line of her left hip. This grew MSSA and corynebacterium. Infectious disease feels that if joint infection is not considered that the corynebacterium is likely contaminant recommending treatment for MSSA. Orthopedics also does not believe this is a joint infection and we are transitioning to oral medication treating her MSSA. However the patient has been insistent that she has increasing pain and cannot stand or walk. She feels she cannot go to rehab not being able to stand or walk. Patient already has suffered a decubitus ulcer from her previous hospital stay due to immobility. Orthopedics feels the patient needs to attempt to participate in physical therapy to a much larger extent however the patient is adamant that her pain is such that she cannot do this. After discussion with infectious disease they recommend possibility of doing an MRI of her joint to get further information about the prosthetic joint although this may be challenging to interpret appropriately. The patient also mentioned that if we cannot come to a resolution in our facility she MAC recommend a second opinion even if that were to require transfer to another facility MRI completed showing same fluid collection. IR consulted. 2ml of thick purulent fluid was aspirated. awaiting cultures. patient still has drainage on affected side. Infectious disease asking microbiology to perform sensitivities on a corynebacterium. awaiting for sensitivities Clinically feeling slightly better. MRI completed images reviwed by myself, 2 fluid collections seen. awaiting radiology report (2) Weakness: Plan: Severe muscular deconditioning -Continue pain control with Oxycodone PRN - patient is on many potentially sedating agents - caution with coadministration will need rehab stay may not qualify for [facility] or other subacute rehab however cannot participate fully in physical therapy to get insurance authorization (3) Elevated troponin: Plan: Patient denies chest pain. No acute ischemic changes on EKG. -Troponin mildly elevated at 41.6, improved now to 38.2 -Feels this is demand ischemia from infection. (4) Elevated CK: Plan: Mildly elevated CK at 753, likely from sacral decubitus poa (5) Sacral wound: Plan: Pressure ulcer/injury of sacrum, stage 3, POA Patient with known sacral wound. She reports home nursing changes dressing and bandages the wound daily. No reported pain or drainage. -Turn and position q 2 hours -Wound Care following (6) Hypercholesterolemia: Plan: Chronic. Stable -Continue Atorvastatin 80mg po qHS (7) Atrial fibrillation: Plan: Paroxysmal s/p cardioversion in 2020. Patient continues in normal sinus rhythm with rate control and good blood pressure -Continue Metoprolol -Consider resuming anticoagulation, once postoperative stability follow-up on Lovenox currently for DVT prevention Chronic stable hypertension is controlled with metoprolol and diltiazem (8) Type 2 diabetes mellitus: Plan: Chronic. Last HgbA1C on 03/06/23=7 -ISS -Goal blood sugar 110 - 140 -Continue Lyrica PRN (9) Obsessive compulsive disorder: Plan: Chronic -Continue Fluvoxamine -Continue Buspirone Admission and Anticipated Discharge Date Admission Date: July 29, 2023 Subjective Patient reports her pain has not improved as compared to the prior day. Review of Systems Review of Systems: All systems reviewed & are unremarkable except as noted in HPI & below Physical Exam Physical Exam: General: patient resting comfortably, NAD, non-toxic in appearance, AA&O x 4 Skin: warm, dry, intact, no rashes or lesions Ext: warm, 2+ pulses in UE/LE bilaterally, serosangeuinoeus drainage of left hip Neuro: nonfocal, patient AA&O x 4 Results & Data Results & Data Vital Signs (Past 12 Hours) Vital Signs Temp Pulse Resp BP BP Pulse Ox O2 Del Method 08/14/23 07:12 37.0 C 76 14 124/61 97 Room Air 08/13/23 21:40 36.6 C 66 18 130/74 97 Room Air PG Care Time/CCT Total # of Minutes Spent Total Time Spent with Patient: Total time spent is greater than 50% in coordination of care (as documented) at patient's floor/unit and/or counseling patient: Coding Level of Care Code 22028 SUB INP/OBS CARE 2/35MIN Diagnoses Left hip postoperative wound infection T81.49XA Weakness R53.1 Elevated troponin R79.89 Elevated CK R74.8 Sacral wound S31.000A Hypercholesterolemia E78.00 Atrial fibrillation I48.91 Atrial fibrillation type: unspecified Type 2 diabetes mellitus with other specified complication, with long-term current 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 E11.69; Z79.4 Diabetes mellitus chcf insulin use: with chcf use Diabetes mellitus complication status: with other specified complication Obsessive compulsive disorder F42.9 (7) Atrial fibrillation Atrial fibrillation type: unspecified Qualified Code(s): I48.91 - Unspecified atrial fibrillation (8) Type 2 diabetes mellitus Diabetes mellitus chcf insulin use: with chcf use Diabetes mellitus complication status: with other specified complication Qualified Code(s): E11.69 - Type 2 diabetes mellitus with other specified complication; Z79.4 - senior living (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
[2023-08-14 09:22] LABS: Creatinine Clr Calc Pharmacy 34.4 ml/min; Est GFR (African American) 28.6 ml/min; Est GFR (Non-African American) 24.7 ml/min
[2023-08-14] MEDS ORDERED: oxyCODONE HCL IR 5 MG TAB (IMMEDIATE RELEASE) PO PRN (12:13)
[2023-08-14] MEDS ORDERED: GLUCOSE 40% GEL 15 GM TUBE PO PRN (12:16)
[2023-08-14] MEDS ORDERED: CARBOHYDRATES FOR HYPOGLYCEMIA PO PRN (12:16)
[2023-08-14] MEDS ORDERED: GLUCOSE 10 TAB/TUBE PO PRN (12:16)
[2023-08-14] MEDS ORDERED: GLUCAGON FOR INJ 1 MG VIAL SQ PRN (12:16)
[2023-08-14] MEDS ORDERED: DEXTROSE 50% 50 ML SYRINGE IV PRN (12:16)
[2023-08-14] MEDS: oxyCODONE HCL IR 5 MG TAB (IMMEDIATE RELEASE) PO PRN (15:11)
--- NOTE | 2023-08-14 18:04 | Hospitalist Progress Note ---
Date of Service August 14, 2023 Assessment & Plan (1) Left hip postoperative wound infection: Plan: Patient presented with increasing pain decreasing muscular strength and serous drainage from the incision line of her left hip. This grew MSSA and corynebacterium. Infectious disease feels that if joint infection is not considered that the corynebacterium is likely contaminant recommending treatment for MSSA. Orthopedics also does not believe this is a joint infection and we are transitioning to oral medication treating her MSSA. However the patient has been insistent that she has increasing pain and cannot stand or walk. She feels she cannot go to rehab not being able to stand or walk. Patient already has suffered a decubitus ulcer from her previous hospital stay due to immobility. Orthopedics feels the patient needs to attempt to participate in physical therapy to a much larger extent however the patient is adamant that her pain is such that she cannot do this. After discussion with infectious disease they recommend possibility of doing an MRI of her joint to get further information about the prosthetic joint although this may be challenging to interpret appropriately. The patient also mentioned that if we cannot come to a resolution in our facility she MAC recommend a second opinion even if that were to require transfer to another facility MRI completed showing same fluid collection. IR consulted. 2ml of thick purulent fluid was aspirated. awaiting cultures. patient still has drainage on affected side. Infectious disease asking microbiology to perform sensitivities on a corynebacterium. awaiting for sensitivities Clinically feeling slightly better. MRI completed images reviwed by myself, 2 fluid collections seen. will discuss with ortho regarding if patient continues to have pain, what would be the next step. (2) Weakness: Plan: Severe muscular deconditioning -Continue pain control with Oxycodone PRN - patient is on many potentially sedating agents - caution with coadministration will need rehab stay may not qualify for [facility] or other subacute rehab however cannot participate fully in physical therapy to get insurance authorization (3) Elevated troponin: Plan: Patient denies chest pain. No acute ischemic changes on EKG. -Troponin mildly elevated at 41.6, improved now to 38.2 -Feels this is demand ischemia from infection. (4) Elevated CK: Plan: Mildly elevated CK at 753, likely from sacral decubitus poa (5) Sacral wound: Plan: Pressure ulcer/injury of sacrum, stage 3, POA Patient with known sacral wound. She reports home nursing changes dressing and bandages the wound daily. No reported pain or drainage. -Turn and position q 2 hours -Wound Care following (6) Hypercholesterolemia: Plan: Chronic. Stable -Continue Atorvastatin 80mg po qHS (7) Atrial fibrillation: Plan: Paroxysmal s/p cardioversion in 2020. Patient continues in normal sinus rhythm with rate control and good blood pressure -Continue Metoprolol -Consider resuming anticoagulation, once postoperative stability follow-up on Lovenox currently for DVT prevention Chronic stable hypertension is controlled with metoprolol and diltiazem (8) Type 2 diabetes mellitus: Plan: Chronic. Last HgbA1C on 03/06/23=7 -ISS -Goal blood sugar 110 - 140 -Continue Lyrica PRN (9) Obsessive compulsive disorder: Plan: Chronic -Continue Fluvoxamine -Continue Buspirone Admission and Anticipated Discharge Date Admission Date: July 29, 2023 Subjective Patient reports no new symptoms. Patient continues to have pain. Review of Systems Review of Systems: All systems reviewed & are unremarkable except as noted in HPI & below Physical Exam Physical Exam: General: patient resting comfortably, NAD, non-toxic in appearance, AA&O x 4 Skin: warm, dry, intact, no rashes or lesions Ext: warm, 2+ pulses in UE/LE bilaterally, serosangeuinoeus drainage of left hip Neuro: nonfocal, patient AA&O x 4 Results & Data Results & Data Vital Signs (Past 12 Hours) Vital Signs Temp Pulse Pulse Pulse Resp BP Pulse Ox 08/14/23 16:24 36.6 C 56 L 18 124/68 94 08/14/23 12:00 37.3 C 66 16 130/76 97 08/14/23 08:15 36.8 C 66 16 122/82 96 08/14/23 07:12 37.0 C 76 14 124/61 97 O2 Del Method 08/14/23 16:24 Room Air 08/14/23 12:00 Room Air 08/14/23 08:15 Room Air 08/14/23 07:12 Room Air PG Care Time/CCT Total # of Minutes Spent Total Time Spent with Patient: Total time spent is greater than 50% in coordination of care (as documented) at patient's floor/unit and/or counseling patient: Coding Level of Care Code 24707 SUB INP/OBS CARE Diagnoses Left hip postoperative wound infection T81.49XA Weakness R53.1 Elevated troponin R79.89 Elevated CK R74.8 Sacral wound S31.000A Hypercholesterolemia E78.00 Atrial fibrillation I48.91 Atrial fibrillation type: unspecified Type 2 diabetes mellitus with other specified complication, with long-term current 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 E11.69; Z79.4 Diabetes mellitus complication status: with other specified complication Diabetes mellitus extermination supervisor insulin use: with care home use Obsessive compulsive disorder F42.9 (7) Atrial fibrillation Atrial fibrillation type: unspecified Qualified Code(s): I48.91 - Unspecified atrial fibrillation (8) Type 2 diabetes mellitus Diabetes mellitus complication status: with other specified complication Diabetes mellitus extermination supervisor insulin use: with extermination supervisor use Qualified Code(s): E11.69 - Type 2 diabetes mellitus with other specified complication; Z79.4 - correction (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
--- NOTE | 2023-08-15 07:20 | Surgery Progress Note ---
Date of Service August 15, 2023 Assessment & Plan (1) Prosthetic joint infection of left hip: Plan: 62-year-old female 4 months out from a cemented bipolar arthroplasty for fracture with draining of wound. Since the aspiration of the drainage seems to be markedly decreased. The wound today looks pretty benign in appearance. Seems to be improved. On MRI she still had some fluid collection. Plan: From an orthopedic standpoint I recommend continued mobilization. Continue antibiotics and I think p.o. antibiotics will be fine. If wanted or desired to could attempt a repeat aspiration of this fluid but I recommended done under ultrasound as we try to do it were unsuccessful. Would not recommend surgical intervention at this time. Any orthopedic questions can be directly [phone] (2) Left hip postoperative wound infection: Admission and Anticipated Discharge Date Admission Date: July 29, 2023 Subjective 62-year-old female 4 months plus out from a left cemented bipolar hip arthroplasty for fracture with readmission. She has had intermittent on and off pain in this left leg. She seems to be little bit better. They did try to change her dressing last night and there is been no significant drainage appreciable on it on exam today. There is no obvious swelling. Minimal pain with hip motion. Physical Exam Physical Exam: Physical examination reveals the wound to be fairly benign in appearance. Once again there is been no further drainage. Leg lengths are equal. She is neurologically intact. Results & Data Vital Signs (Past 12 Hours) Vital Signs Temp Pulse Resp BP Pulse Ox O2 Del Method 08/14/23 22:31 36.4 C L 56 L 18 130/60 95 Room Air 08/14/23 20:30 Room Air Laboratory Results Culture results from most recent aspirate no growth to date. Diagnostic Findings MRI was reviewed. She continues to have a fluid collection in the subcutaneous tissues. Does not look good deep in nature. Essentially looks pretty well at much unchanged from previously to [facility]. PG Care Time/CCT Total # of Minutes Spent Total Time Spent with Patient: Total time spent is greater than 50% in coordination of care (as documented) at patient's floor/unit and/or counseling patient: Coding Level of Care Code 05866 SUB INP/OBS CARE 2/35MIN Diagnoses Prosthetic joint infection of left hip T84.52XA Left hip postoperative wound infection T81.49XA
[2023-08-15 08:14] LABS: Hematocrit (blood only) 33.1 % (37.0-47.0); Hemoglobin 10.1 g/dl (12.0-16.0); Mean Corpuscular Hgb Conc 30.5 g/dL (32.0-36.0); Mean Corpuscular Volume 85.3 fL (80.0-100.0); Mean Platelet Volume 12.3 fL (9.4-12.4); Platelet Count 122 K/uL (130-400); RDW Coefficient of Variation 15.4 % (11.5-14.5); Red Blood Count 3.88 M/uL (4.20-5.40); White Blood Count 6.39 K/ul (4.8-10.8)
[2023-08-15 08:47] LABS: Anion Gap 3 (3-11); Blood Urea Nitrogen 39 mg/dl (6-23); C Reactive Protein < 0.50 mg/dl (0-0.5); Calcium 7.7 mg/dl (8.6-10.3); Carbon Dioxide 25 mmol/L (21-32); Chloride 110 mmol/L (98-107); Creatinine Clr Calc Pharmacy 32.8 ml/min; Est GFR (Non-African American) 23.3 ml/min; Glucose 97 mg/dl (70-99(Fasting)); Potassium 5.3 mmol/L (3.5-5.1); Sodium 138 mmol/L (136-145)
--- NOTE | 2023-08-15 22:51 | Hospitalist Progress Note ---
Date of Service August 15, 2023 Assessment & Plan (1) Left hip postoperative wound infection: Plan: Patient presented with increasing pain decreasing muscular strength and serous drainage from the incision line of her left hip. This grew MSSA and corynebacterium. Infectious disease feels that if joint infection is not considered that the corynebacterium is likely contaminant recommending treatment for MSSA. Orthopedics also does not believe this is a joint infection and we are transitioning to oral medication treating her MSSA. However the patient has been insistent that she has increasing pain and cannot stand or walk. She feels she cannot go to rehab not being able to stand or walk. Patient already has suffered a decubitus ulcer from her previous hospital stay due to immobility. Orthopedics feels the patient needs to attempt to participate in physical therapy to a much larger extent however the patient is adamant that her pain is such that she cannot do this. After discussion with infectious disease they recommend possibility of doing an MRI of her joint to get further information about the prosthetic joint although this may be challenging to interpret appropriately. The patient also mentioned that if we cannot come to a resolution in our facility she MAC recommend a second opinion even if that were to require transfer to another facility MRI completed showing same fluid collection. IR consulted. 2ml of thick purulent fluid was aspirated. awaiting cultures. patient still has drainage on affected side. Infectious disease asking microbiology to perform sensitivities on a corynebacterium. awaiting for sensitivities Clinically feeling slightly better. MRI completed images reviwed by myself, 2 fluid collections seen. appears next step from ortho to monitor clinically. D/W IR, concern of another aspiration may contaminant fluid collections. May consider warm compresses. (2) Weakness: Plan: Severe muscular deconditioning -Continue pain control with Oxycodone PRN - patient is on many potentially sedating agents - caution with coadministration will need rehab stay may not qualify for [facility] or other subacute rehab however cannot participate fully in physical therapy to get insurance authorization (3) Elevated troponin: Plan: Patient denies chest pain. No acute ischemic changes on EKG. -Troponin mildly elevated at 41.6, improved now to 38.2 -Feels this is demand ischemia from infection. (4) Elevated CK: Plan: Mildly elevated CK at 753, likely from sacral decubitus poa (5) Sacral wound: Plan: Pressure ulcer/injury of sacrum, stage 3, POA Patient with known sacral wound. She reports home nursing changes dressing and bandages the wound daily. No reported pain or drainage. -Turn and position q 2 hours -Wound Care following (6) Hypercholesterolemia: Plan: Chronic. Stable -Continue Atorvastatin 80mg po qHS (7) Atrial fibrillation: Plan: Paroxysmal s/p cardioversion in 2020. Patient continues in normal sinus rhythm with rate control and good blood pressure -Continue Metoprolol -Consider resuming anticoagulation, once postoperative stability follow-up on Lovenox currently for DVT prevention Chronic stable hypertension is controlled with metoprolol and diltiazem (8) Type 2 diabetes mellitus: Plan: Chronic. Last HgbA1C on 03/06/23=7 -ISS -Goal blood sugar 110 - 140 -Continue Lyrica PRN (9) Obsessive compulsive disorder: Plan: Chronic -Continue Fluvoxamine -Continue Buspirone Admission and Anticipated Discharge Date Admission Date: July 29, 2023 Subjective Patient reports no new symptoms. Continues to have pain but is able to ambulate more. Review of Systems Review of Systems: All systems reviewed & are unremarkable except as noted in HPI & below Physical Exam Physical Exam: General: patient resting comfortably, NAD, non-toxic in appearance, AA&O x 4 Skin: warm, dry, intact, no rashes or lesions Ext: warm, 2+ pulses in UE/LE bilaterally, serosangeuinoeus drainage of left hip Neuro: nonfocal, patient AA&O x 4 Results & Data Results & Data Vital Signs (Past 12 Hours) Vital Signs Temp Pulse Pulse Resp BP Pulse Ox O2 Del Method 08/15/23 21:27 36.8 C 65 18 129/55 L 96 Room Air 08/15/23 20:45 Room Air 08/15/23 15:44 36.4 C L 49 L 18 148/75 H 97 Room Air PG Care Time/CCT Total # of Minutes Spent Total Time Spent with Patient: Total time spent is greater than 50% in coordination of care (as documented) at patient's floor/unit and/or counseling patient: Coding Level of Care Code 53216 SUB INP/OBS CARE 2/35MIN Diagnoses Left hip postoperative wound infection T81.49XA Weakness R53.1 Elevated troponin R79.89 Elevated CK R74.8 Sacral wound S31.000A Hypercholesterolemia E78.00 Atrial fibrillation I48.91 Atrial fibrillation type: unspecified Type 2 diabetes mellitus with other specified complication, with long-term current 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 E11.69; Z79.4 Diabetes mellitus complication status: with other specified complication Diabetes mellitus halfway insulin use: with marine oil terminal superintendent use Obsessive compulsive disorder F42.9 (7) Atrial fibrillation Atrial fibrillation type: unspecified Qualified Code(s): I48.91 - Unspecified atrial fibrillation (8) Type 2 diabetes mellitus Diabetes mellitus complication status: with other specified complication Diabetes mellitus halfway insulin use: with halfway use Qualified Code(s): E11.69 - Type 2 diabetes mellitus with other specified complication; Z79.4 - senior care (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
--- NOTE | 2023-08-16 08:44 | Hospitalist Progress Note ---
Date of Service August 16, 2023 Assessment & Plan (1) Left hip postoperative wound infection: Plan: Patient presented with increasing pain decreasing muscular strength and serous drainage from the incision line of her left hip. This grew MSSA and corynebacterium. Infectious disease feels that if joint infection is not considered that the corynebacterium is likely contaminant recommending treatment for MSSA. Orthopedics also does not believe this is a joint infection and we are transitioning to oral medication treating her MSSA. However the patient has been insistent that she has increasing pain and cannot stand or walk. She feels she cannot go to rehab not being able to stand or walk. Patient already has suffered a decubitus ulcer from her previous hospital stay due to immobility. Orthopedics feels the patient needs to attempt to participate in physical therapy to a much larger extent however the patient is adamant that her pain is such that she cannot do this. After discussion with infectious disease they recommend possibility of doing an MRI of her joint to get further information about the prosthetic joint although this may be challenging to interpret appropriately. The patient also mentioned that if we cannot come to a resolution in our facility she MAC recommend a second opinion even if that were to require transfer to another facility MRI completed showing same fluid collection. IR consulted. 2ml of thick purulent fluid was aspirated, culture is negative 2 MRI of hip does not show any progression of fluid collections and thus feel this is not progressive abscess (2) Weakness: Plan: Severe muscular deconditioning -Continue pain control with Oxycodone PRN - patient is on many potentially sedating agents - caution with coadministration will need rehab stay may not qualify for [facility] or other subacute rehab however cannot participate fully in physical therapy to get insurance authorization (3) Elevated troponin: Plan: Patient denies chest pain. No acute ischemic changes on EKG. -Troponin mildly elevated at 41.6, improved now to 38.2 -Feels this is demand ischemia from infection. (4) Elevated CK: Plan: Mildly elevated CK at 753, likely from sacral decubitus poa (5) Sacral wound: Plan: Pressure ulcer/injury of sacrum, stage 3, POA Patient with known sacral wound. She reports home nursing changes dressing and bandages the wound daily. No reported pain or drainage. -Turn and position q 2 hours -Wound Care following (6) Hypercholesterolemia: Plan: Chronic. Stable -Continue Atorvastatin 80mg po qHS (7) Atrial fibrillation: Plan: Paroxysmal s/p cardioversion in 2020. Patient continues in normal sinus rhythm with rate control and good blood pressure -Continue Metoprolol -Consider resuming anticoagulation, once postoperative stability follow-up on Lovenox currently for DVT prevention Chronic stable hypertension is controlled with metoprolol and diltiazem (8) Type 2 diabetes mellitus: Plan: Chronic. Last HgbA1C on 03/06/23=7 -ISS -Goal blood sugar 110 - 140 -Continue Lyrica PRN (9) Obsessive compulsive disorder: Plan: Chronic -Continue Fluvoxamine -Continue Buspirone Admission and Anticipated Discharge Date Admission Date: July 29, 2023 Subjective pt feels well less hip pain healing sacral ulcer no drainage from hip Physical Exam Physical Exam: cardiac is regular lungs are clear left hip is clean and intact Results & Data Results & Data Vital Signs (Past 12 Hours) Vital Signs Temp Pulse Pulse Resp BP Pulse Ox O2 Del Method 08/16/23 07:25 98.1 F 64 20 131/70 96 Room Air 08/15/23 21:27 98.2 F 65 18 129/55 L 96 Room Air 08/15/23 20:45 Room Air PG Care Time/CCT Total # of Minutes Spent Total Time Spent with Patient: Total time spent is greater than 50% in coordination of care (as documented) at patient's floor/unit and/or counseling patient: Coding Level of Care Code 51312 SUB INP/OBS CARE 2/35MIN Diagnoses Left hip postoperative wound infection T81.49XA Weakness R53.1 Elevated troponin R79.89 Elevated CK R74.8 Sacral wound S31.000A Hypercholesterolemia E78.00 Atrial fibrillation I48.91 Atrial fibrillation type: unspecified Type 2 diabetes mellitus with other specified complication, with long-term current 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 E11.69; Z79.4 Diabetes mellitus complication status: with other specified complication Diabetes mellitus usp insulin use: with ocean transportation intermediary use Obsessive compulsive disorder F42.9 (7) Atrial fibrillation Atrial fibrillation type: unspecified Qualified Code(s): I48.91 - Unspecified atrial fibrillation (8) Type 2 diabetes mellitus Diabetes mellitus complication status: with other specified complication Diabetes mellitus ocean transportation intermediary insulin use: with ocean transportation intermediary use Qualified Code(s): E11.69 - Type 2 diabetes mellitus with other specified complication; Z79.4 - technician terminal and repeater (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
--- NOTE | 2023-08-16 11:14 | Surgery Progress Note ---
Date of Service August 16, 2023 Assessment & Plan (1) Left hip postoperative wound infection: Plan: 62-year-old female 4 months out from a cemented bipolar hip arthroplasty with a recent drainage from the incision site. MRI showed some fluid in the subcu tissues tissues which has been aspirated and cultures are no growth. Her lab parameters including sed rate and CRP are minimally elevated and some normal. Her been exam is benign other than this drainage. Plan at this point I recommend continue conservative care. It is probably worth couple weeks of antibiotics and see how things come along. Surgical innervation would be pretty major deal for this patient and with an open decubitus ulcer area risk of recurrent infection is significant. I recommend course of p.o. antibiotics for probably 2 to 4 weeks and reevaluate lab parameters and clinical exam. That she can fully weight-bear as tolerated. Any orthopedic questions can be direct me at [phone] Admission and Anticipated Discharge Date Admission Date: July 29, 2023 Subjective 62-year-old female now 4 months out from a left cemented hip arthroplasty for fr acture. She seems like she is clinically improving. Pain seems to be improved. She started to mobilize little bit better. The drainage in her hip is stopped. Physical Exam Physical Exam: Physical examination was a pleasant middle-aged female. She is sitting up in her wheelchair. This first time I am seeing her out of bed. Examination of the hip reveals the dressing to be in place. With the dressing removed the incision is intact. There is little bubble at the drainage site but no drainage. Looks sealed over. No redness or warmth. Minimal pain with hip motion. She is neurologically intact. Results & Data Vital Signs (Past 12 Hours) Vital Signs Temp Pulse Resp BP Pulse Ox O2 Del Method 08/16/23 07:25 36.7 C 64 20 131/70 96 Room Air Laboratory Results Culture results from the aspirate are no growth. PG Care Time/CCT Total # of Minutes Spent Total Time Spent with Patient: Total time spent is greater than 50% in coordination of care (as documented) at patient's floor/unit and/or counseling patient: Coding Level of Care Code 39288 SUB INP/OBS CARE 2/35MIN Diagnoses Left hip postoperative wound infection T81.49XA
--- NOTE | 2023-08-17 16:38 | Hospitalist Progress Note ---
Date of Service August 17, 2023 Assessment & Plan (1) Left hip postoperative wound infection: Plan: Patient presented with increasing pain decreasing muscular strength and serous drainage from the incision line of her left hip. This grew MSSA and corynebacterium. Infectious disease feels that if joint infection is not considered that the corynebacterium is likely contaminant recommending treatment for MSSA. Orthopedics also does not believe this is a joint infection and we are transitioning to oral medication treating her MSSA. After discussion with infectious disease they recommend mri that showed stable fluid collections x 2 2 MRI of hip does not show any progression of fluid collections and thus feel this is not progressive abscess Eventually complete 2-week course of medication directed to the MSSA this could be completed by oral antibiotics once she returns to a subacute rehab facility (2) Weakness: Plan: Severe muscular deconditioning -Continue pain control with Oxycodone PRN - patient is on many potentially sedating agents - caution with coadministration will need rehab stay may not qualify for [facility] or other subacute rehab however cannot participate fully in physical therapy to get insurance authorization (3) Elevated troponin: Plan: Patient denies chest pain. No acute ischemic changes on EKG. -Troponin mildly elevated at 41.6, improved now to 38.2 -Feels this is demand ischemia from infection. (4) Elevated CK: Plan: Mildly elevated CK at 753, likely from sacral decubitus poa (5) Sacral wound: Plan: Pressure ulcer/injury of sacrum, stage 3, POA Patient with known sacral wound. She reports home nursing changes dressing and bandages the wound daily. No reported pain or drainage. -Turn and position q 2 hours -Wound Care following (6) Hypercholesterolemia: Plan: Chronic. Stable -Continue Atorvastatin 80mg po qHS (7) Atrial fibrillation: Plan: Paroxysmal s/p cardioversion in 2020. Patient continues in normal sinus rhythm with rate control and good blood pressure -Continue Metoprolol -resuming anticoagulation, eliquis 5 mg bid in pm of 08/17/23 Chronic stable hypertension is controlled with metoprolol and diltiazem (8) Type 2 diabetes mellitus: Plan: Chronic. Last HgbA1C on 03/06/23=7 -ISS -Goal blood sugar 110 - 140 -Continue Lyrica PRN (9) Obsessive compulsive disorder: Plan: Chronic -Continue Fluvoxamine -Continue Buspirone Admission and Anticipated Discharge Date Admission Date: July 29, 2023 Subjective pt feels well less hip pain, leg is still painful to walk but improving daily. healing sacral ulcer no drainage from hip Physical Exam Physical Exam: cardiac is regular lungs are clear left hip is clean and intact dressing removed and wound inspected there is no additional expression of fluid Results & Data Results & Data Vital Signs (Past 12 Hours) Vital Signs Temp Pulse Resp BP Pulse Ox O2 Del Method 08/17/23 14:18 98.1 F 51 L 16 123/60 98 Room Air 08/17/23 07:30 Room Air 08/17/23 07:00 98.8 F 77 16 119/72 96 Room Air Laboratory Results Reviewed [id number] glucose PG Care Time/CCT Total # of Minutes Spent Total Time Spent with Patient: Total time spent is greater than 50% in coordination of care (as documented) at patient's floor/unit and/or counseling patient: Coding Level of Care Code 23820 SUB INP/OBS CARE 3/50MIN Diagnoses Left hip postoperative wound infection T81.49XA Weakness R53.1 Elevated troponin R79.89 Elevated CK R74.8 Sacral wound S31.000A Hypercholesterolemia E78.00 Atrial fibrillation I48.91 Atrial fibrillation type: unspecified Type 2 diabetes mellitus with other specified complication, with long-term current 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 E11.69; Z79.4 Diabetes mellitus complication status: with other specified complication Diabetes mellitus manager terminal insulin use: with group home use Obsessive compulsive disorder F42.9 (7) Atrial fibrillation Atrial fibrillation type: unspecified Qualified Code(s): I48.91 - Unspecified atrial fibrillation (8) Type 2 diabetes mellitus Diabetes mellitus complication status: with other specified complication Diabetes mellitus group home insulin use: with group home use Qualified Code(s): E11.69 - Type 2 diabetes mellitus with other specified complication; Z79.4 - [facility] (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
[2023-08-17] MEDS: APIXABAN 5 MG TABLET PO SCH (20:15)
--- NOTE | 2023-08-18 15:54 | Hospitalist Progress Note ---
Date of Service August 18, 2023 Assessment & Plan (1) Left hip postoperative wound infection: Plan: Patient presented with increasing pain decreasing muscular strength and serous drainage from the incision line of her left hip. This grew MSSA and corynebacterium. Infectious disease feels that if joint infection is not considered that the corynebacterium is likely contaminant recommending treatment for MSSA. Orthopedics also does not believe this is a joint infection and we are transitioning to oral medication treating her MSSA. After discussion with infectious disease they recommend mri that showed stable fluid collections x 2 2 MRI of hip does not show any progression of fluid collections and thus feel this is not progressive abscess Eventually complete 2-week course of medication directed to the MSSA this could be completed by oral antibiotics once she returns to a subacute rehab facility No new changes on 08/18/2023 (2) Weakness: Plan: Severe muscular deconditioning -Continue pain control with Oxycodone PRN - patient is on many potentially sedating agents - caution with coadministration will need rehab stay may not qualify for [facility] or other subacute rehab however cannot participate fully in physical therapy to get insurance authorization (3) Elevated troponin: Plan: Patient denies chest pain. No acute ischemic changes on EKG. -Troponin mildly elevated at 41.6, improved now to 38.2 -Feels this is demand ischemia from infection. (4) Elevated CK: Plan: Mildly elevated CK at 753, likely from sacral decubitus poa (5) Sacral wound: Plan: Pressure ulcer/injury of sacrum, stage 3, POA Patient with known sacral wound. She reports home nursing changes dressing and bandages the wound daily. No reported pain or drainage. -Turn and position q 2 hours -Wound Care following (6) Hypercholesterolemia: Plan: Chronic. Stable -Continue Atorvastatin 80mg po qHS (7) Atrial fibrillation: Plan: Paroxysmal s/p cardioversion in 2020. Patient continues in normal sinus rhythm with rate control and good blood pressure -Continue Metoprolol -resuming anticoagulation, eliquis 5 mg bid in pm of 08/17/23 Chronic stable hypertension is controlled with metoprolol and diltiazem (8) Type 2 diabetes mellitus: Plan: Chronic. Last HgbA1C on 03/06/23=7 -ISS -Goal blood sugar 110 - 140 -Continue Lyrica PRN (9) Obsessive compulsive disorder: Plan: Chronic -Continue Fluvoxamine -Continue Buspirone Admission and Anticipated Discharge Date Admission Date: July 29, 2023 Subjective pt feels well less hip pain, leg is still painful to walk but improving daily. healing sacral ulcer no drainage from hip No new changes on 08/18/2023 awaiting placement Physical Exam Physical Exam: cardiac is regular lungs are clear left hip is clean and intact dressing removed and wound inspected there is no additional expression of fluid Results & Data Results & Data Vital Signs (Past 12 Hours) Vital Signs Temp Pulse Resp BP Pulse Ox O2 Del Method 08/18/23 14:13 98.2 F 56 L 18 125/65 97 Room Air 08/18/23 07:48 98.4 F 76 16 122/65 93 Room Air Laboratory Results Reviewed [id number] glucose PG Care Time/CCT Total # of Minutes Spent Total Time Spent with Patient: Total time spent is greater than 50% in coordination of care (as documented) at patient's floor/unit and/or counseling patient: Coding Level of Care Code 16414 SUB INP/OBS CARE 07/11MIN Diagnoses Left hip postoperative wound infection T81.49XA Weakness R53.1 Elevated troponin R79.89 Elevated CK R74.8 Sacral wound S31.000A Hypercholesterolemia E78.00 Atrial fibrillation I48.91 Atrial fibrillation type: unspecified Type 2 diabetes mellitus with other specified complication, with long-term current 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 E11.69; Z79.4 Diabetes mellitus mcc insulin use: with [facility]cc use Diabetes mellitus complication status: with other specified complication Obsessive compulsive disorder F42.9 (7) Atrial fibrillation Atrial fibrillation type: unspecified Qualified Code(s): I48.91 - Unspecified atrial fibrillation (8) Type 2 diabetes mellitus Diabetes mellitus mcc insulin use: with terminal manager use Diabetes mellitus complication status: with other specified complication Qualified Code(s): E11.69 - Type 2 diabetes mellitus with other specified complication; Z79.4 - terminal press operator (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
[2023-08-19 12:06] LABS: Hematocrit (blood only) 32.3 % (37.0-47.0); Hemoglobin 9.7 g/dl (12.0-16.0); Mean Corpuscular Hemoglobin 25.9 pg (25.0-34.0); Mean Corpuscular Volume 86.4 fL (80.0-100.0); Mean Platelet Volume 12.1 fL (9.4-12.4); Platelet Count 121 K/uL (130-400); RDW Coefficient of Variation 15.7 % (11.5-14.5); RDW Standard Deviation 49.4 fL (36.4-46.3); Red Blood Count 3.74 M/uL (4.20-5.40); White Blood Count 6.07 K/ul (4.8-10.8)
[2023-08-19 12:21] LABS: BUN Creatinine Ratio 22.4 (10-20); Calcium 7.4 mg/dl (8.6-10.3); Creatinine Clr Calc Pharmacy 34.7 ml/min; Est GFR (African American) 28.9 ml/min; Magnesium 1.8 mg/dl (1.7-2.4); Potassium 5.7 mmol/L (3.5-5.1)
[2023-08-19] MEDS: oxyCODONE HCL IR 5 MG TAB (IMMEDIATE RELEASE) PO PRN (15:48)
--- NOTE | 2023-08-19 17:49 | Hospitalist Progress Note ---
Date of Service August 19, 2023 Assessment & Plan (1) Left hip postoperative wound infection: Plan: Patient presented with increasing pain decreasing muscular strength and serous drainage from the incision line of her left hip. This grew MSSA and corynebacterium. Infectious disease feels that if joint infection is not considered that the corynebacterium is likely contaminant recommending treatment for MSSA. Orthopedics also does not believe this is a joint infection and we are transitioning to oral medication treating her MSSA. After discussion with infectious disease they recommend mri that showed stable fluid collections x 2 2 MRI of hip does not show any progression of fluid collections and thus feel this is not progressive abscess Eventually complete 2-week course of medication directed to the MSSA this could be completed by oral antibiotics once she returns to a subacute rehab facility elevated potassium on petiromer changed to low potassium diet (2) Weakness: Plan: Severe muscular deconditioning -Continue pain control with Oxycodone PRN - patient is on many potentially sedating agents - caution with coadministration will need rehab stay may not qualify for [facility] or other subacute rehab however cannot participate fully in physical therapy to get insurance authorization (3) Elevated troponin: Plan: Patient denies chest pain. No acute ischemic changes on EKG. -Troponin mildly elevated at 41.6, improved now to 38.2 -Feels this is demand ischemia from infection. (4) Elevated CK: Plan: Mildly elevated CK at 753, likely from sacral decubitus poa (5) Sacral wound: Plan: Pressure ulcer/injury of sacrum, stage 3, POA Patient with known sacral wound. She reports home nursing changes dressing and bandages the wound daily. No reported pain or drainage. -Turn and position q 2 hours -Wound Care following (6) Hypercholesterolemia: Plan: Chronic. Stable -Continue Atorvastatin 80mg po qHS (7) Atrial fibrillation: Plan: Paroxysmal s/p cardioversion in 2020. Patient continues in normal sinus rhythm with rate control and good blood pressure -Continue Metoprolol -resuming anticoagulation, eliquis 5 mg bid in pm of 08/17/23 Chronic stable hypertension is controlled with metoprolol and diltiazem (8) Type 2 diabetes mellitus: Plan: Chronic. Last HgbA1C on 03/06/23=7 -ISS -Goal blood sugar 110 - 140 -Continue Lyrica PRN (9) Obsessive compulsive disorder: Plan: Chronic -Continue Fluvoxamine -Continue Buspirone Admission and Anticipated Discharge Date Admission Date: July 29, 2023 Subjective pt feels well less hip pain, leg is still painful to walk but improving daily. healing sacral ulcer no drainage from hip No new changes on 08/19/2023 awaiting placement Physical Exam Physical Exam: cardiac is regular lungs are clear left hip is clean and intact dressing removed and wound inspected 08/18 there is no additional expression of fluid Results & Data Results & Data Vital Signs (Past 12 Hours) Vital Signs Temp Pulse Resp BP Pulse Ox O2 Del Method 08/19/23 14:45 98.4 F 53 L 16 117/68 95 Room Air 08/19/23 07:48 98.2 F 76 16 131/65 96 Room Air Laboratory Results reviewed cbc reviewed chemistry elevated potassium, started patiromer starting low potassium diet PG Care Time/CCT Total # of Minutes Spent Total Time Spent with Patient: Total time spent is greater than 50% in coordination of care (as documented) at patient's floor/unit and/or counseling patient: Coding Level of Care Code 20398 SUB INP/OBS CARE 2/35MIN Diagnoses Left hip postoperative wound infection T81.49XA Weakness R53.1 Elevated troponin R79.89 Elevated CK R74.8 Sacral wound S31.000A Hypercholesterolemia E78.00 Atrial fibrillation I48.91 Atrial fibrillation type: unspecified Type 2 diabetes mellitus with other specified complication, with long-term current 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 E11.69; Z79.4 Diabetes mellitus prison insulin use: with prison use Diabetes mellitus complication status: with other specified complication Obsessive compulsive disorder F42.9 (7) Atrial fibrillation Atrial fibrillation type: unspecified Qualified Code(s): I48.91 - Unspecified atrial fibrillation (8) Type 2 diabetes mellitus Diabetes mellitus prison insulin use: with terminal superintendent use Diabetes mellitus complication status: with other specified complication Qualified Code(s): E11.69 - Type 2 diabetes mellitus with other specified complication; Z79.4 - 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
[2023-08-19] MEDS: PATIROMER CALCIUM SORBITEX 8.4 GM PACK PO SCH (19:52)
[2023-08-20 07:57] LABS: BUN Creatinine Ratio 23.2 (10-20); Calcium 7.5 mg/dl (8.6-10.3); Creatinine Clr Calc Pharmacy 36.7 ml/min; Est GFR (African American) 30.9 ml/min; Est GFR (Non-African American) 26.7 ml/min; Potassium 5.6 mmol/L (3.5-5.1)
--- NOTE | 2023-08-20 16:23 | Hospitalist Progress Note ---
Date of Service August 20, 2023 Assessment & Plan (1) Left hip postoperative wound infection: Plan: Patient presented with increasing pain decreasing muscular strength and serous drainage from the incision line of her left hip. This grew MSSA and corynebacterium. Infectious disease feels that if joint infection is not considered that the corynebacterium is likely contaminant recommending treatment for MSSA. Orthopedics also does not believe this is a joint infection and we are transitioning to oral medication treating her MSSA. After discussion with infectious disease they recommend mri that showed stable fluid collections x 2 2 MRI of hip does not show any progression of fluid collections and thus feel this is not progressive abscess Complete 2-week course of medication directed to the MSSA this could be completed by oral antibiotics LD 08/21/23 (2) Hyperkalemia: Plan: elevated potassium on patiromer changed to low potassium diet Certainly influenced by chronic kidney disease stage III (3) Weakness: Plan: Severe muscular deconditioning -Continue pain control with Oxycodone PRN - patient is on many potentially sedating agents - caution with coadministration (4) Elevated troponin: Plan: Patient denies chest pain. No acute ischemic changes on EKG. -Troponin mildly elevated at 41.6, improved now to 38.2 -Feels this is demand ischemia from infection. (5) Elevated CK: Plan: Mildly elevated CK at 753, likely from sacral decubitus poa (6) Sacral wound: Plan: Pressure ulcer/injury of sacrum, stage 3, POA Patient with known sacral wound. She reports home nursing changes dressing and bandages the wound daily. No reported pain or drainage. -Turn and position q 2 hours -Wound Care following (7) Hypercholesterolemia: Plan: Chronic. Stable -Continue Atorvastatin 80mg po qHS (8) Atrial fibrillation: Plan: Paroxysmal s/p cardioversion in 2020. Patient continues in normal sinus rhythm with rate control and good blood pressure -Continue Metoprolol -resuming anticoagulation, eliquis 5 mg bid in pm of 08/17/23 Chronic stable hypertension is controlled with metoprolol and diltiazem (9) Type 2 diabetes mellitus: Plan: Chronic. Last HgbA1C on 03/06/23=7 -ISS -Goal blood sugar 110 - 140 -Continue Lyrica PRN (10) Obsessive compulsive disorder: Plan: Chronic -Continue Fluvoxamine -Continue Buspirone Admission and Anticipated Discharge Date Admission Date: July 29, 2023 Subjective pt feels well less hip pain, leg is still painful to walk but improving daily. healing sacral ulcer no drainage from hip No new changes on 08/19/2023 awaiting placement Physical Exam Physical Exam: cardiac is regular lungs are clear left hip is clean and intact dressing removed and wound inspected 08/18 there is no additional expression of fluid Results & Data Results & Data Vital Signs (Past 12 Hours) Vital Signs Temp Pulse Pulse Resp BP BP Pulse Ox 08/20/23 15:14 98.6 F 64 20 115/72 94 08/20/23 12:00 08/20/23 06:44 97.7 F 76 16 130/57 L 95 O2 Del Method 08/20/23 15:14 Room Air 08/20/23 12:00 Room Air 08/20/23 06:44 Room Air Laboratory Results Reviewed CBC reviewed chemistry PG Care Time/CCT Total # of Minutes Spent Total Time Spent with Patient: Total time spent is greater than 50% in coordination of care (as documented) at patient's floor/unit and/or counseling patient: Coding Level of Care Code 04544 SUB INP/OBS CARE 2/35MIN Diagnoses Left hip postoperative wound infection T81.49XA Hyperkalemia E87.5 Weakness R53.1 Elevated troponin R79.89 Elevated CK R74.8 Sacral wound S31.000A Hypercholesterolemia E78.00 Atrial fibrillation I48.91 Atrial fibrillation type: unspecified Type 2 diabetes mellitus with other specified complication, with long-term current 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 E11.69; Z79.4 Diabetes mellitus correction insulin use: with termite exterminator use Diabetes mellitus complication status: with other specified complication Obsessive compulsive disorder F42.9 (8) Atrial fibrillation Atrial fibrillation type: unspecified Qualified Code(s): I48.91 - Unspecified atrial fibrillation (9) Type 2 diabetes mellitus Diabetes mellitus termite exterminator insulin use: with correction use Diabetes mellitus complication status: with other specified complication Qualified Code(s): E11.69 - Type 2 diabetes mellitus with other specified complication; Z79.4 - lobsterman (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
[2023-08-21 06:53] LABS: Calcium 7.4 mg/dl (8.6-10.3); Potassium 5.7 mmol/L (3.5-5.1)
[2023-08-21 06:59] LABS: BUN Creatinine Ratio 22.5 (10-20); Creatinine Clr Calc Pharmacy 34.9 ml/min; Est GFR (African American) 29.1 ml/min; Est GFR (Non-African American) 25.1 ml/min
[2023-08-21] MEDS: FUROSEMIDE INJ 20 MG/2 ML VIAL IV ONE (09:20)
--- NOTE | 2023-08-21 16:09 | Hospitalist Progress Note ---
Date of Service August 21, 2023 Assessment & Plan (1) Left hip postoperative wound infection: Plan: Patient presented with increasing pain decreasing muscular strength and serous drainage from the incision line of her left hip. This grew MSSA and corynebacterium. Infectious disease feels that if joint infection is not considered that the corynebacterium is likely contaminant recommending treatment for MSSA. Orthopedics also does not believe this is a joint infection and we are transitioning to oral medication treating her MSSA. After discussion with infectious disease they recommend mri that showed stable fluid collections x 2 2 MRI of hip does not show any progression of fluid collections and thus feel this is not progressive abscess Complete 2-week course of medication directed to the MSSA this could be completed LD 08/21/23 (2) Hyperkalemia: Plan: elevated potassium on patiromer changed to low potassium diet Certainly influenced by chronic kidney disease stage III starting low dose lasix will need outpt nephrology follow up (3) Weakness: Plan: Severe muscular deconditioning -Continue pain control with Oxycodone PRN - patient is on many potentially sedating agents - caution with coadministration (4) Elevated troponin: Plan: Patient denies chest pain. No acute ischemic changes on EKG. -Troponin mildly elevated at 41.6, improved now to 38.2 -Feels this is demand ischemia from infection. (5) Elevated CK: Plan: Mildly elevated CK at 753, likely from sacral decubitus poa (6) Sacral wound: Plan: Pressure ulcer/injury of sacrum, stage 3, POA Patient with known sacral wound. She reports home nursing changes dressing and bandages the wound daily. No reported pain or drainage. -Turn and position q 2 hours -Wound Care continue treatment at [facility] wound care, irrigate with saline gently fill with Aquacel ad cut in strips secure with optifoam and change daily and when soiled (7) Hypercholesterolemia: Plan: Chronic. Stable -Continue Atorvastatin 80mg po qHS (8) Atrial fibrillation: Plan: Paroxysmal s/p cardioversion in 2020. Patient continues in normal sinus rhythm with rate control and good blood pressure -Continue Metoprolol -resuming anticoagulation, eliquis 5 mg bid in pm of 08/17/23 Chronic stable hypertension is controlled with metoprolol and diltiazem (9) Type 2 diabetes mellitus: Plan: Chronic. Last HgbA1C on 03/06/23=7 -ISS -Goal blood sugar 110 - 140 -Continue Lyrica PRN (10) Obsessive compulsive disorder: Plan: Chronic -Continue Fluvoxamine -Continue Buspirone Admission and Anticipated Discharge Date Admission Date: July 29, 2023 Subjective pt feels well less hip pain, leg is still painful to walk but improving daily. healing sacral ulcer no drainage from hip pt with some increase in potassium, on patiromer, low K+ diet and starting some lasix Physical Exam Physical Exam: cardiac is regular lungs are clear left hip is clean and intact dressing removed and wound inspected 08/18 there is no additional expression of fluid Results & Data Results & Data Vital Signs (Past 12 Hours) Vital Signs Temp Pulse Resp BP BP Pulse Ox O2 Del Method 08/21/23 12:52 98.2 F 78 16 135/77 96 Room Air 08/21/23 07:45 98.4 F 74 18 151/78 H 94 Room Air Laboratory Results reviewed chemistry PG Care Time/CCT Total # of Minutes Spent Total Time Spent with Patient: Total time spent is greater than 50% in coordination of care (as documented) at patient's floor/unit and/or counseling patient: Coding Level of Care Code 68878 SUB INP/OBS CARE 2/35MIN Diagnoses Left hip postoperative wound infection T81.49XA Hyperkalemia E87.5 Weakness R53.1 Elevated troponin R79.89 Elevated CK R74.8 Sacral wound S31.000A Hypercholesterolemia E78.00 Atrial fibrillation I48.91 Atrial fibrillation type: unspecified Type 2 diabetes mellitus with other specified complication, with long-term current 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 E11.69; Z79.4 Diabetes mellitus roasterman insulin use: with roasterman use Diabetes mellitus complication status: with other specified complication Obsessive compulsive disorder F42.9 (8) Atrial fibrillation Atrial fibrillation type: unspecified Qualified Code(s): I48.91 - Unspecified atrial fibrillation (9) Type 2 diabetes mellitus Diabetes mellitus roasterman insulin use: with retirement use Diabetes mellitus complication status: with other specified complication Qualified Code(s): E11.69 - Type 2 diabetes mellitus with other specified complication; Z79.4 - rat exterminator (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
[2023-08-22 08:06] LABS: BUN Creatinine Ratio 24.5 (10-20); Calcium 7.4 mg/dl (8.6-10.3); Creatinine Clr Calc Pharmacy 35.6 ml/min; Est GFR (African American) 29.8 ml/min; Est GFR (Non-African American) 25.7 ml/min; Potassium 5.2 mmol/L (3.5-5.1)
[2023-08-22] MEDS: ONDANSETRON INJ 2 MG/ML 2 ML VIAL IV PRN (08:53)
--- NOTE | 2023-08-22 16:37 | Discharge Summary ---
Date of Service August 22, 2023 Admission HPI Per Admitting Provider Jerri Arellano is a 62yo female presenting with weakness and ambulatory dysfunction. Patient was admitted to [facility] from 04/08 - 05/10/23 after presenting with a fall resulting in a fracture of the left hip s/p repair 04/09. Also with Stage IV sacral decubitus ulcer present on admission which was debrided on 05/06/23. She was discharged to rehab at [facility] and was recently discharged home on 07/22/23. Patient reports that since being home she has been doing very poorly. She has had progressive weakness and fatigue. She reports she is unable to stand or walk. She uses a walker and wheelchair at home. She has had poor appetite and decreased oral intake as well as some subjective chills and shortness of breath. She has had some constipation as well. Otherwise, patient with no new complaints. In the ER she is afebrile, HD stable and nontoxic in appearance. Principal Diagnosis surgical skin infection, not prosthetic joint infection sacral decubitus ulcer poa hyperkalemia with CKD3 Discharge Exam awake and alert, pain to lateral hip, no drainage, some induration Discharge Data Allergies Allergy/AdvReac Type Severity Reaction Status Date / Time Iodinated Contrast Media Allergy Unknown Unknown Verified 07/29/23 16:37 [Iodinated Contrast- Oral and IV Dye] promethazine AdvReac Intermediate BROKEN Verified 07/29/23 16:37 CAPILLARIES FACE Consultations 07/29/23 19:09 ED Decision to Admit Stat 07/30/23 09:45 Consult Orthopedic Surgery Routine 08/02/23 08:11 Consult Infectious Diseases Routine Procedures Performed Operation Date: 07/31/23 14:20 <No data on this case meets the specified criteria> Ordered Studies Chest X-Ray 07/29/23 16:23 SINGLE VIEW CHEST CLINICAL HISTORY: Sepsis FINDINGS: 2 AP, portable, semierect chest radiographs are compared to study dated 04/09/2023. Correlation is made with chest CT dated 12/30/2017. The examination is degraded by portable technique and apical lordotic positioning. The heart is enlarged and noting atherosclerotic calcification of the thoracic aorta. The pulmonary vasculature is noncongested. Chronic interstitial thickening is similar to previous. There is bibasilar scarring/atelectasis. No airspace consolidation or large pleural effusion is identified. No pneumothorax is seen. The skeletal structures are osteopenic. The bony thorax is grossly intact. A left shoulder arthroplasty is in place. IMPRESSION: Cardiomegaly with no active disease in the chest. ACT 112: Negative or not required by law. Electronically signed by: Bryn Jose M.D. 07/29/2023 4:[address] 07/29/23 16:24 CT SCAN OF THE BRAIN WITHOUT IV CONTRAST CLINICAL HISTORY: Generalized weakness. COMPARISON STUDY: CT of the brain dated 04/08/2023. TECHNIQUE: Unenhanced axial CT scan of the brain is performed from the vertex to the skull base. A dose lowering technique was utilized adhering to the principles of ALARA. CT DOSE: 625.8 mGy.cm FINDINGS: Brain parenchyma: There is mild microangiopathic change. There is no hemorrhage, mass effect, or evidence of acute territorial ischemia by CT criteria. Hernandez- white matter differentiation is preserved. No extra-axial fluid collection is seen. Ventricles, sulci, cisterns: Normal in configuration. Intracranial vasculature: There is atherosclerotic calcification of the ramila nous carotid and vertebral arteries. Calvarium: Unremarkable. Sinuses and mastoids: There is fluid within the right sphenoid sinus. The remaining visualized paranasal sinuses are clear. Postoperative changes partially visualized in the right maxilla. The mastoid air cells are well pneumatized. Orbits: The bony orbits are grossly intact. There are bilateral ocular lens implants. IMPRESSION: There is no hemorrhage, mass effect, or evidence of acute territorial ischemia by CT criteria. ACT 112: Negative or not required by law. Electronically signed by: Bryn Jose M.D. 07/29/2023 5:51 PM Hip X-Ray 07/30/23 10:54 XR hip LT min 2V CLINICAL HISTORY: left hip pain TECHNIQUE: 2 views of the left hip were obtained. Comparison: Comparison is made to hip radiographs 04/09/2023 FINDINGS: There is no evidence of an acute fracture. Total hip arthoplasty hardware is seen without perihardware lucency or hardware fracture. Vascular calcifications are noted. IMPRESSION: No evidence of acute osseous injury. ACT 112: Negative or not required by law. Electronically signed by: Farhan Higgins M.D. 07/30/2023 12:[address] 07/30/23 17:00 CT hip LT wo con CLINICAL HISTORY: hip pain/drainage TECHNIQUE: Multidetector row helical CT of the left hip was performed without intravenous contrast. Coronal and sagittal reformations were obtained. Automated dose lowering techniques and/or adjustment according to patient size were utilized for this examination. CT DOSE: 915.99 mGy.cm Comparison: Comparison is made to CT left hip 04/08/2023 FINDINGS: The osseous structures are without fracture or dislocation. Left hip total arthroplasty is seen. Healing changes are seen about the previously noted fracture. No joint effusion is seen. Posterior soft tissue swelling is noted. IMPRESSION: Posterior soft tissue swelling is seen without evidence of drainable fluid collection. Expected postsurgical changes status post femoral neck fixation. ACT 112: Negative or not required by law. Electronically signed by: Farhan Higgins M.D. 07/30/2023 8:18 PM Knee X-Ray 08/04/23 07:55 XR knee LT 1 or 2V routine CLINICAL HISTORY: Left knee pain. COMPARISON: Left femur radiographs June 07, 2022. FINDINGS: Alignment of the left knee is anatomic. There is no acute fracture. Suspected osteopenia. Moderate left knee joint effusion is present. There is no lipohemarthrosis. Moderate left knee osteoarthritis is most pronounced within the patellofemoral compartment. There is extensive vascular calcification. IMPRESSION: 1. No acute fractures within the left knee. 2. Moderate-sized left knee joint effusion. 3. Moderate tricompartmental left knee osteoarthritis. ACT 112: Negative or not required by law. Electronically signed by: Ahsan Rebolledo M.D. 08/04/2023 8:41 AM Hip MRI 08/07/23 20:20 MR hip LT wo con CLINICAL HISTORY: 62 years-old Female with eval for infection. Acute severe left hip pain with hip replacement 04/06/2023 COMPARISON: CT left hip 07/30/2023 TECHNIQUE: Multiplanar, multi sequence MRI of the left hip was performed without intravenous contrast. FINDINGS: The exam is very limited secondary to motion artifact and susceptibility artifact from the left hip arthroplasty. The patient was unable to tolerate the study and therefore was prematurely terminated with only a few sequences obtained. There is anasarca. Colonic diverticulosis. Multilevel degenerative changes of the imaged lumbar spine. Decompressed urinary bladder with wall thickening. Indeterminate 2.4 cm T2 hyperintense left adnexal structure. The endometrium measures 5 mm. There is at least mild right hip osteoarthritis. Susceptibility artifact within the soft tissues lateral to the left hip with 3.8 x 4.4 x 4.9 cm subcutaneous fluid collection. The marrow of the left hip cannot be evaluated secondary to the aforementioned artifacts/limitations. There is deep tissue edema noted posterior to the proximal left femoral diaphysis. IMPRESSION: 1. Limited exam as above. This patient was unable to complete the study, therefore the exam was prematurely terminated. 2. Left hip arthroplasty with adjacent lateral subcutaneous fluid collection measuring up to 4.9 cm. When evaluating the comparison CT study from 07/30/2023 this corresponds to an air and fluid-filled collection which is similar in size. Finding should be correlated clinically to exclude an abscess. 3. Anasarca. ACT 112: Negative or not required by law. The above report was generated using voice recognition software. It may contain grammatical, syntax or spelling errors. Electronically signed by: Timothy Tracy M.D. 08/08/2023 6:52 AM Joint Aspiration/Injection 08/08/23 09:59 Ultrasound guided left hip fluid collection aspiration INDICATION: 4.9 cm lateral subcutaneous left hip fluid collection COMPARISON: MRI left hip 08/07/2023 PROCEDURE: Procedure and risks were explained. Informed consent was obtained. A final timeout was completed. The left lateral hip was prepped and draped in sterile fashion. 1% buffered lidocaine was utilized for skin anesthesia. Utilizing ultrasound guidance, a 5 [place] safety centesis catheter was advanced into the complex appearing left lateral subcutaneous hip fluid collection. Ultrasound images were obtained. 2 aspirates were obtained yielding approximately 2 mL of purulent appearing fluid. This was sent to the lab for culture analysis. The catheter was removed and Band-Aid applied. The patient tolerated the procedure well. IMPRESSION: Ultrasound-guided left hip fluid collection aspiration as above. Performed, dictated, and signed by George Craven PA-C; to be co-signed by Dr. Ahsan Rebolledo. Electronically signed by: Ahsan Rebolledo M.D. 08/08/2023 5:34 PM Hip MRI 08/13/23 09:43 MRI OF THE LEFT HIP WITHOUT IV CONTRAST CLINICAL HISTORY: Left hip infection. COMPARISON STUDY: CT scan of the left hip dated 07/30/2023. Attempted MRI of the left hip dated 08/07/2023. TECHNIQUE: MRI of the left hip and pelvis was attempted utilizing various T1 and T2-weighted sequences in the axial, sagittal, and coronal planes. IV contrast was not administered for this examination. The examination is severely degraded by motion artifact, as well as by susceptibility artifact from a left hip arthroplasty. FINDINGS: There is a left hip arthroplasty in place. Susceptibility artifact from the arthroplasty precludes evaluation of the left hip or acetabulum. Normal marrow signal intensity is maintained in the right proximal femur and the visualized sacrum and right hemipelvis. There is no MRI evidence of acute fracture. There is no evidence of destructive bony lesion. Diffuse soft tissue edema is seen throughout the pelvis. There are two small fluid collections identified in the soft tissues of the left upper thigh. A small collection posterior to the left proximal femur on axial image #33 measures approximately 6 x 1.5 x 4 cm. A smaller more superiorly located collection lateral to the greater trochanter on axial image #26 measures approximately 4 x 3 x 2.5 cm. These collections do not clearly communicate with the left hip joint space. There is no evidence of avascular necrosis of the right femoral head. The hamstring tendons are grossly intact. The bladder is decompressed. There is free fluid in the cul-de-sac. The uterus is normal as imaged. There is generalized atrophy of the regional musculature. IMPRESSION: 1. The examination is severely degraded by motion artifact and susceptibility artifact from a left hip arthroplasty. 2. Diffuse body wall edema is present throughout the pelvis. 3. There are two fluid collections identified in the soft tissues of the left upper thigh. These are located lateral to the greater trochanter of left femur and along the posterior aspect of the left proximal femoral shaft. These may represent seromas/hematomas. The sterility of these fluid collections cannot be assessed by imaging and abscess is not excluded. Clinical correlation will be essential. 4. There is nonspecific free fluid in the cul-de-sac. Dictated: 08/13/2023 7:28 PM Transcribed: 08/13/2023 7:52 PM Ayanna [id number] ABRAM_Yoni [id number] Electronically signed by: Bryn Jose M.D. 08/13/2023 7:56 PM Hospital Course (1) Left hip postoperative wound infection: Patient presented with increasing pain decreasing muscular strength and serous drainage from the incision line of her left hip. This grew MSSA and corynebacterium. Infectious disease feels that if joint infection is not considered that the corynebacterium is likely contaminant recommending treatment for MSSA. Orthopedics also does not believe this is a joint infection and we are transitioning to oral medication treating her MSSA. After discussion with infectious disease they recommend mri that showed stable fluid collections x 2 2 MRI of hip does not show any progression of fluid collections and thus feel this is not progressive abscess Completed 2-week course of medication directed to the MSSA ,completed LD 08/21/23 (2) Hyperkalemia: elevated potassium on patiromer changed to low potassium diet Certainly influenced by chronic kidney disease stage III on bumex will need outpt nephrology follow up (3) Weakness: Severe muscular deconditioning -Continue pain control with Oxycodone PRN - patient is on many potentially sedating agents - caution with coadministration (4) Elevated troponin: Patient denies chest pain. No acute ischemic changes on EKG. -Troponin mildly elevated at 41.6, improved now to 38.2 -Feels this is demand ischemia from infection. (5) Elevated CK: Mildly elevated CK at 753, likely from sacral decubitus poa (6) Sacral wound: Pressure ulcer/injury of sacrum, stage 3, POA Patient with known sacral wound. She reports home nursing changes dressing and bandages the wound daily. No reported pain or drainage. -Turn and position q 2 hours -Wound Care continue treatment at [facility] wound care, irrigate with saline gently fill with Aquacel ad cut in strips secure with optifoam and change daily and when soiled (7) Hypercholesterolemia: Chronic. Stable -Continue Atorvastatin 80mg po qHS (8) Atrial fibrillation: Paroxysmal s/p cardioversion in 2020. Patient continues in normal sinus rhythm with rate control and good blood pressure -Continue Metoprolol -resumed anticoagulation, eliquis 5 mg bid in pm of 08/17/23 Chronic stable hypertension is controlled with metoprolol and diltiazem (9) Type 2 diabetes mellitus: Chronic. Last HgbA1C on 03/06/23=7 -ISS -Goal blood sugar 110 - 140 -Continue Lyrica PRN (10) Obsessive compulsive disorder: Chronic -Continue Fluvoxamine -Continue Buspirone Total Time Total Time Spent Total Time Spent (In Minutes): It required greater than 30 minutes to prepare this patient for discharge. Discharge Plan Discharge Items Patient Disposition: Transfer Shelter Fac Reason For Visit: GENERALIZED WEAKNESS Discharge Diagnosis: deep tissue infection, not involving prostatic joint infection sacral decubitus ulcer Activity: Per Instructions section Activity Comment: PT/OT Non-emergency contact: Primary Care Provider and Surgeon Call non-emergency contact if: your symptoms worsen Follow-up/Referrals: William Lewis MD [Primary Care Provider] - Diet: Carb Consistent or DM2 and Low Potassium (2gm) Addtl Attending Provider Instructions: He has been treated for deep tissue infection surrounding her hip prosthesis. He is not felt that this infection involves her deep hip. There is a fluid collection which might cause some pain and hopefully will improve over time You have also been treated for sacral decubitus ulcer this will need to continue to have attention. Pending Studies at Discharge: No Stand-Alone Forms: My [facility] Skilled Items Patient informed of condition?: Yes DNR: No Discharge Level of Care: Acute rehab Communicable Disease: No Discharge Prognosis: Stable Lines: None Urinary Catheter: No Medications and DC Order Prescriptions: Continued (DME) lancets [OneTouch UltraSoft Lancets] [facility] [place], [place] See Rx Instructions .ROUTE .MEDSUPPLY Qty: 400 3RF Rx Instructions: test blood sugar 4 x daily (DME) blood sugar diagnostic Strip See Dose Instructions .ROUTE .MEDSUPPLY Qty: 300 3RF Dose Instruction: As directed Rx Instructions: test blood sugar 3 x daily. OneTouch ultra blue test strips. ondansetron 4 mg tablet,disintegrating 4 mg PO Q8H PRN (Reason: nausea and vomiting) Qty: 14 0RF atorvastatin 80 mg tablet 80 mg PO HS Qty: 90 3RF levothyroxine 50 mcg tablet 50 mcg PO DAILYBB Qty: 90 1RF Rx Instructions: take with 8 oz of water (DME) insulin syringe-needle U-100 [Easy Comfort Insulin Syringe] 0.5 mL 31 gauge x 5/16" syringe See Rx Instructions .ROUTE .MEDSUPPLY Qty: 400 3RF Rx Instructions: Use four times a day with insulin injection folic acid 1 mg tablet 1 mg PO QAM Qty: 90 3RF Retacrit 40,000 unit/mL solution 40,000 unit subcut UD 28 Days Qty: 28 6RF Rx Instructions: weekly on Wednesdays, hold for Hb 11 or higher ergocalciferol (vitamin D2) [Vitamin D2] 1,250 mcg (50,000 unit) capsule 50,000 unit PO WK Rx Instructions: Saturday nystatin 100,000 unit/gram powder 1 applic topical DAILY PRN (Reason: skin irritation) Qty: 60 3RF bumetanide 2 mg tablet 2 mg PO QAM Hold Instructions: Resume on 05/24/23. metoprolol succinate 25 mg tablet extended release 24 hr 25 mg PO DAILY Qty: 90 3RF trazodone 100 mg tablet 100 mg PO HS buspirone 15 mg tablet 15 mg PO BID cyanocobalamin (vitamin B-12) 2,500 mcg tablet 2,500 mcg PO 2XWK Rx Instructions: TUES & THURS ONLY lorazepam [Ativan] 1 mg tablet 1 mg PO BID PRN (Reason: anxiety) fluvoxamine 100 mg Tablet 150 mg PO BID docusate sodium [Colace] 100 mg Capsule 100 mg PO BID PRN (Reason: Constipation) pregabalin [Lyrica] 75 mg Capsule 75 mg PO BID diltiazem HCl 180 mg Tablet Extended Release 24 Hr 180 mg PO DAILY fenofibrate 160 mg tablet 160 mg PO QAM Rx Instructions: PER EXT MED HX. FILLED 07/26/23. pantoprazole 40 mg tablet,delayed release (DR/EC) 40 mg PO BID Qty: 60 5RF baclofen 10 mg Tablet 5 mg PO Q8H PRN (Reason: MUSCLE SPASMS) insulin lispro 100 unit/mL solution 5 - 8 unit SQ TIDM Rx Instructions: Inject as per sliding scale subcutaneously before meals and at bedtime: If BSG is <60, notify MD If BS-150 = 0 151-200 = 2 units 201-250 = 4 units 251-300 = 6 units 301-350 = 8 units 351-400 = 10 units 401-450 = 12 units 451-500 = 14 units >500 Notify multivitamin with iron-mineral Tablet 1 tab PO DAILY Changed oxycodone 5 mg tablet 5 - 10 mg PO Q6H PRN (Reason: pain) Qty: 40 0RF Discontinued sucralfate [Carafate] 100 mg/mL suspension 10 ml PO QID 14 Days Qty: 560 0RF Rx Instructions: PER PT "DID NOT START". swish in mouth and swallow; use after food/drink amlodipine [Norvasc] 10 mg tablet 5 mg PO QAM Qty: 90 1RF Discharge Orders: Discharge Order (Routine); Ordered 08/22/23 Ordered By: Jevon Appiah Admission Data Admit Date/Time: 07/29/23 19:50 Attending Provider: Jevon Appiah Admit Provider: Kelly Childress Primary Care Provider: William Lewis V. Other Providers: Thomas Abdalla [facility]; [facility]; [facility]; [place]; Kelly Childress; Rodolfo Martínez; Lea Cassidy; Antoinette Swanson; Javi Cruz; Kristi Hammonds; Eric Childress; Sarah West; Richar Nunn; Juan Jose Whalen; Germaine Fountain; Juan Jose New; Timothy Medrano; Marline Roca; Isabella Collins; Socrates Brandon; Vivi Curiel; Argenis Bosch; Cat Dee; Latanya Gilman; Jennifer Mooney Other Interventions: Discharge Summary Assessment (RN) Last Done: 08/22/23 13:40 Coding Level of Care Code 88391 INP/OBS DISCH >30 MIN Diagnoses Left hip postoperative wound infection T81.49XA Hyperkalemia E87.5 Weakness R53.1 Elevated troponin R79.89 Elevated CK R74.8 Sacral wound S31.000A Hypercholesterolemia E78.00 Atrial fibrillation I48.91 Atrial fibrillation type: unspecified Type 2 diabetes mellitus with other specified complication, with long-term current 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 E11.69; Z79.4 Diabetes mellitus intermission coordinator insulin use: with senior living use Diabetes mellitus complication status: with other specified complication Obsessive compulsive disorder F42.9
== END 2023-08-22 14:44 | DRG 555 ==
LOC: ED 16:01 → SUATTDRO 19:50 → EDINP 19:50 → 2N 07-30 00:16 → 3N 08-02 02:33

== ENCOUNTER 2023-11-16 16:39 | Inpatient (IN) ==
[2023-11-16 19:27] LABS: Basophils # (auto) 0.02 K/uL (0.00-0.20); Basophils % (auto) 0.4 %; Eosinophils # (auto) 0.04 K/uL (0.00-0.50); Eosinophils % (auto) 0.7 %; Hematocrit (blood only) 35.2 % (37.0-47.0); Hemoglobin 11.1 g/dl (12.0-16.0); Immature Granulocytes # (auto) 0.03 K/uL (0.01-0.20); Immature Granulocytes % (auto) 0.5 %; Lymphocytes # (auto) 0.95 K/uL (1.20-3.40); Mean Corpuscular Hemoglobin 26.1 pg (25.0-34.0); Mean Corpuscular Hgb Conc 31.5 g/dL (32.0-36.0); Mean Corpuscular Volume 82.8 fL (80.0-100.0); Mean Platelet Volume 13.1 fL (9.4-12.4); Monocytes # (auto) 0.31 K/uL (0.11-0.59); Monocytes % (auto) 5.5 %; Neutrophils # (auto) 4.24 K/uL (1.40-6.50); Neutrophils % (auto) 75.9 %; Platelet Count 107 K/uL (130-400); RDW Coefficient of Variation 17.9 % (11.5-14.5); RDW Standard Deviation 51.7 fL (36.4-46.3); Red Blood Count 4.25 M/uL (4.20-5.40); White Blood Count 5.59 K/ul (4.8-10.8)
[2023-11-16 19:39] LABS: Albumin Level 1.9 gm/dl (3.4-5.0); BUN Creatinine Ratio 36.8 (10-20); Bilirubin Direct 0.2 mg/dl (0-0.2); Bilirubin,Total 0.6 mg/dl (0.2-1.0); Calcium 7.6 mg/dl (8.6-10.3); Creatinine Clr Calc Pharmacy 36.8 ml/min; Est GFR (African American) 31.5 ml/min; Est GFR (Non-African American) 27.2 ml/min; Potassium 3.4 mmol/L (3.5-5.1); Total Protein 5.1 gm/dl (6.0-8.3)
--- NOTE | 2023-11-16 21:40 | Emergency Department Note ---
Impression & Plan Acute confusion ED Provider Note NAME: SHANTEL PAYAN AGE: 63 SEX: F : 1960 ARRIVES VIA: Ambulance INFORMANT: Patient, ED PROVIDER(S): Adilson Montero MD CHIEF COMPLAINT: Confusion HPI: This is a 63-year-old female presenting for confusion. Patient is medically complex with history of CHF, diabetes, A-fib, COPD, hypertension, back presenting for confusion. Patient reportedly was altered on the phone with her family. Reportedly she is speaking gibberish. Upon arrival here she is oriented but does make strange comments like that she is current on oxygen when she is not. She seems mostly with it but makes slightly factually incorrect statements throughout my interview. She reports she feels "like shit ". But cannot tell me an exact area of pain or symptom. She notes that her pain in her leg/buttocks from the wound VAC is unchanged. Otherwise she unclear she had a fever. She states she wants come to the ER multiple days ago but "they would not let me ". ROS: See above HPI for pertinent positives & negatives. A total of 10 systems reviewed and were otherwise negative. PHYSICAL EXAMINATION: General: Chronically ill-appearing Head: Normocephalic and atraumatic Eyes: Normal inspection, extraocular muscles intact Ear, nose, throat: Normal external exam Neck: Normal range of motion Respiratory: lungs clear to auscultation bilaterally Cardiovascular: Regular rate/rhythm, no murmur GI: Bilateral lower extremity swelling, 2+ pulses, wound VAC to posterior buttock appears to show no signs of erythema, fluctuance Extremities: nontender, moves all extremities Neuro: No focal deficits, results memory spontaneously, equal strength in all extremities Skin: Warm, dry, and intact MEDICAL DECISION MAKING: This is a 63-year-old female presenting for confusion. Patient has no acute neurologic deficits. She does have a wound VAC on her posterior buttocks on the left side. Otherwise she has reassuring vital signs. Consider sepsis, UTI, ACS, stroke. -Head CT within normal limits -Blood work is reviewed showed no leukocytosis, slight anemia. Otherwise electrolytes within normal limits. Creatinine 1.9. Urinalysis reveals no signs UTI. -Patient is confused today making statements that do not make complete sense. Will admit for further workup Differential diagnosis: See above ER treatment provided: See below Diagnostics interpreted by me: ECG: None Cardiac Monitoring: An order was placed for continuous cardiac monitoring. The monitor shows a rate of 91 with sinus rhythm. Laboratory studies: As stated above and show below. Imaging studies: See below. Past Med/Surg History Problem List (Updated 11/17/23 @ 01:01 by Adilson Montero MD) Acute confusion (Acute) Urinary frequency Diarrhea Osteomyelitis of coccyx History of femur fracture (04/08/23) Displaced fracture of neck of left femur, from a fall-saw orthopedics and had surgery Left hip pain Effusion, left knee MSSA (methicillin susceptible Staphylococcus aureus) infection Left hip postoperative wound infection Sacral wound Elevated CK Elevated troponin (Acute) Weakness (Acute) Physical deconditioning Wandering atrial pacemaker Sacral decubitus ulcer Urinary retention Constipation Hyperkalemia Abnormal rhythmic movement of tongue Tear of right hamstring Hamstring tendinitis Piriformis syndrome of right side History of colon polyps Diabetic nephropathy with proteinuria Fatty (change of) liver, not elsewhere classified Diastolic CHF S/P shoulder replacement Osteoarthritis of left knee Foot drop Idiopathic polyneuropathy Hypercholesterolemia Atrial fibrillation (Acute) Restrictive lung disease secondary to obesity Type 2 diabetes mellitus Restrictive lung disease COPD (chronic obstructive pulmonary disease) (Chronic) Obsessive compulsive disorder (Chronic) Left ventricular hypertrophy (Chronic) Diabetic nephropathy (Chronic) Anemia (Chronic) HTN (hypertension) (Chronic) Acute kidney injury Swelling of right upper extremity Dizziness Atrial flutter History of partial replacement of left hip joint using bipolar prosthesis (04/09/23) Status post gastric bypass for obesity 09/14/2020- Dr. 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 Per [facility] pulm 12/2019, "fairly stable from a pulmonary perspective. She is short of breath with any exertion, however a large part of this is likely related to obesity. Pulmonary functions done 1 year ago showed only a mild restrictive pattern. Diffusion was slightly decreased to 66%. One year ago she did have a normal arterial blood gas with no evidence of CO2 retention." Using PRN 3L, mostly using with exertion, not using every day. Nasal septal deviation (Chronic) Nocturnal hypoxia (Chronic) 2-3L N/C - during night Nontoxic multinodular goiter (Chronic) TRUMAN (obstructive sleep apnea) PRESCRIBED BIPAP-CAN'T TOLERATE-CLAUSTROPHOBIC Anemia due to chronic kidney disease Chronic kidney disease, stage 4 (severe) Medical History Retention of urine, unspecified Pressure ulcer of sacral region, stage 4 Obsessive compulsive disorder Muscle wasting and atrophy, not elsewhere classified, other site Acute kidney injury Swelling of right upper extremity Atrial flutter History of partial replacement of left hip joint using bipolar prosthesis (04/09/23) History of COVID-19 On home oxygen therapy Vitamin D deficiency Fluid retention Right sided sciatica Pneumonia AV fistula Atrial fibrillation and flutter Dizziness Generalized weakness Syncope PAF (paroxysmal atrial fibrillation) Atrial fibrillation, new onset Cardiac murmur Chronic kidney disease, stage 4 (severe) Anemia due to chronic kidney disease TRUMAN (obstructive sleep apnea) Obesity hypoventilation syndrome Nontoxic multinodular goiter Nocturnal hypoxia Nasal septal deviation Morbid obesity Mixed restrictive and obstructive lung disease Diastolic congestive heart failure Diabetic retinopathy, nonproliferative Diabetic peripheral neuropathy Claustrophobia Chronic rhinitis Arthralgia of multiple sites Anxiety and depression Chronic low back pain Hypothyroidism Hyperlipemia Hypertension Diabetes Surgical History History of incision and drainage (05/06/23) History of bilateral cataract extraction History of cardioversion Status post gastric bypass for obesity History of arthroscopy History of total shoulder replacement History of esophagogastroduodenoscopy (EGD) History of colonoscopy History of dermoid cyst excision S/P tooth extraction History of mandibular surgery H/O section Hx of cholecystectomy Family History Daughter Multiple allergies Bipolar disorder Aunt Breast cancer Mother Diabetes Heart disease Hyperthyroidism Hypertension Father Gastric cancer Hearing loss Myocardial infarction Grandfather Heart disease Family/Other Osteoporosis Lung cancer Hypertension Stroke Brother Hypertension Grandmother Ovarian cancer Sister Diabetes Migraine Other No family history of adverse response to anesthesia Denies family history of Prostate cancer Colorectal cancer Uterine cancer Social History Smoking Status: Unknown if ever smoked Second Hand Exposure: No; Do You Dip or Chew Tobacco: No; Hx Alcohol Use: No (Unknown - Resident of [facility]) Hx Substance Use: No (Unknown - Resident of [facility]) Preferred Language: Afghan Communication Ability: Effective Visual Impairment: No Limitations Wardrobe Mistress Required: No Beliefs That Will Affect Care: None marital status: Current Living Situation: Care Home Current Living Situation Comment: [facility] since 08/22/23 current occupational status: employed and unemployed Feels Safe at Home: Yes Childhood Exposure to Second-Hand Smoke: Yes Dental Care, Regularly: Yes Physical Activity Frequency: Does not Exercise Seatbelt Use: always Sunscreen Use: Yes Assistive Devices: Walker Allergies Allergies Allergy/AdvReac Type Severity Reaction Status Date / Time Iodinated Contrast Media Allergy Unknown Unknown Verified 11/16/23 23:13 [Iodinated Contrast- Oral and IV Dye] promethazine AdvReac Intermediate BROKEN Verified 11/16/23 23:13 CAPILLARIES FACE Home Meds Home Medications Medication Instructions Recorded Confirmed buspirone 15 mg tablet 15 mg PO BID 11/28/20 11/16/23 trazodone 100 mg tablet 100 mg PO HS 07/09/22 11/16/23 cyanocobalamin (vitamin B-12) 2,500 mcg PO 2XWK 10/08/22 11/16/23 2,500 mcg tablet docusate sodium 100 mg capsule 100 mg PO QAM Constipation 07/04/23 11/16/23 (Colace) fenofibrate 160 mg tablet 160 mg PO QAM 07/04/23 11/16/23 pregabalin 75 mg capsule (Lyrica) 75 mg PO BID 07/04/23 11/16/23 bumetanide 2 mg tablet 2 mg PO QAM 07/24/23 11/16/23 acetaminophen 325 mg capsule 650 mg PO QID PRN Fever Or Pain 09/23/23 11/16/23 (Tylenol) cholecalciferol (vitamin D3) 125 125 mcg PO DAILY 09/23/23 11/16/23 mcg (5,000 unit) capsule diltiazem HCl 180 mg capsule,24 180 mg PO DAILY 09/23/23 11/16/23 hr,extended release fluvoxamine 100 mg tablet 100 mg PO QPM 09/23/23 11/16/23 fluvoxamine 50 mg tablet 50 mg PO BID 09/23/23 11/16/23 loperamide 2 mg capsule 2 mg PO TID PRN Diarrhea 09/23/23 11/16/23 (Anti-Diarrheal (loperamide)) multivitamin with iron 1 tab PO DAILY 09/23/23 11/16/23 nystatin 100,000 unit/gram topical 1 applic topical DAILY PRN .flare 09/23/23 11/16/23 powder ups ondansetron HCl 4 mg tablet 4 mg PO Q6H PRN nausea and vomiting 09/23/23 11/16/23 oxycodone 5 mg capsule 5 mg PO Q6H PRN pain 09/23/23 11/16/23 calcium carbonate (Calcium 600) 600 mg PO DAILY 11/16/23 11/16/23 fluvoxamine 50 mg tablet 50 mg PO QPM 11/16/23 11/16/23 lorazepam 0.5 mg tablet (Ativan) 0.5 mg PO BID PRN Anxiety 11/16/23 11/16/23 sodium hypochlorite 0.25 % 1 applic topical DIRECTED 11/16/23 11/16/23 solution (Dakin's Solution) sodium hypochlorite 0.25 % 1 applic topical DIRECTED 11/16/23 11/16/23 solution (Dakin's Solution) Previous Rx's Medication Instructions Recorded lancets (OneTouch UltraSoft #400 ea 04/12/21 Lancets) blood sugar diagnostic #300 ea 12/10/22 atorvastatin 80 mg tablet 80 mg PO HS #90 tabs 12/24/22 levothyroxine 50 mcg tablet 50 mcg PO DAILYBB #90 tabs 01/23/23 insulin syringe-needle U-100 0.5 #400 ea 02/05/23 mL 31 gauge x 5/16" (Easy Comfort Insulin Syringe) folic acid 1 mg tablet 1 mg PO QAM #90 tabs 02/22/23 epoetin fernando-epbx 40,000 unit/mL 40,000 unit subcut UD 28 days #28 07/01/23 injection solution (Retacrit) mL pantoprazole 40 mg tablet,delayed 40 mg PO BID #60 tabs 07/09/23 release metoprolol succinate 25 mg 25 mg PO DAILY #90 tabs 07/26/23 tablet,extended release 24 hr apixaban 5 mg tablet (Eliquis) 5 mg PO BID #60 tabs 08/30/23 Results & Data (ED) Vital Signs Vital Signs - 24 hr 11/16/23 17:13 11/16/23 17:35 11/16/23 17:35 Temperature 36.7 C Temperature Source Oral Pulse Rate 45 L 83 Pulse Rate [Apical] Respiratory Rate 16 Blood Pressure 146/83 H Blood Pressure [Left Arm] Blood Pressure Mean 104 Blood Pressure Mean [Left Arm] Pulse Oximetry 98 98 Oxygen Delivery Method Room Air Room Air Sepsis Recent Fever Within 48 Hours No Sepsis New/Unexplained Change in Mental Status Yes Sepsis Action Taken by Nursing No Action Required 11/16/23 17:35 11/16/23 19:30 11/16/23 20:21 Temperature Temperature Source Pulse Rate 75 57 L Pulse Rate [Apical] 83 Respiratory Rate 16 10 L 18 Blood Pressure Blood Pressure [Left Arm] 146/83 H Blood Pressure Mean Blood Pressure Mean [Left Arm] 104 Pulse Oximetry 98 96 98 Oxygen Delivery Method Room Air Sepsis Recent Fever Within 48 Hours Sepsis New/Unexplained Change in Mental Status Sepsis Action Taken by Nursing 11/16/23 20:33 11/16/23 21:05 Temperature Temperature Source Pulse Rate 89 91 H Pulse Rate [Apical] Respiratory Rate 14 Blood Pressure Blood Pressure [Left Arm] Blood Pressure Mean Blood Pressure Mean [Left Arm] Pulse Oximetry 98 Oxygen Delivery Method Sepsis Recent Fever Within 48 Hours Sepsis New/Unexplained Change in Mental Status Sepsis Action Taken by Nursing Laboratory Data 11/16/23 19:07 11/16/23 19:07 Lab Results 11/16/23 11/16/23 Range/Units 19:07 21:30 WBC 5.59 (4.8-10.8) K/ul RBC 4.25 (4.20-5.40) M/uL Hgb 11.1 L (12.0-16.0) g/dl Hct 35.2 L (37.0-47.0) % MCV 82.8 (80.0-100.0) fL MCH 26.1 (25.0-34.0) pg MCHC 31.5 L (32.0-36.0) g/dL RDW Std Deviation 51.7 H (36.4-46.3) fL RDW Coeff of Chantal 17.9 H (11.5-14.5) % Plt Count 107 L (130-400) K/uL MPV 13.1 H (9.4-12.4) fL Immature Gran % (Auto) 0.5 % Neut % (Auto) 75.9 % Lymph % (Auto) 17.0 % [place] % (Auto) 5.5 % Eos % (Auto) 0.7 % Baso % (Auto) 0.4 % Neut # (Auto) 4.24 (1.40-6.50) K/uL Lymph # (Auto) 0.95 L (1.20-3.40) K/uL [place] # (Auto) 0.31 (0.11-0.59) K/uL Eos # (Auto) 0.04 (0.00-0.50) K/uL Baso # (Auto) 0.02 (0.00-0.20) K/uL Immature Gran # (Auto) 0.03 (0.01-0.20) K/uL Sodium 144 (136-145) mmol/L Potassium 3.4 L (3.5-5.1) mmol/L Chloride 107 (98-107) mmol/L Carbon Dioxide 31 (21-32) mmol/L Anion Gap 6 (3-11) BUN 70 H (6-23) mg/dl Creatinine 1.90 H (0.6-1.2) mg/dl Est Cr Clr Drug Dosing 36.8 ml/min Est GFR ( Amer) 31.5 ml/min Est GFR (Non-Af Amer) 27.2 ml/min BUN/Creatinine Ratio 36.8 H (10-20) Glucose 131 H (70-99(Fasting)) mg/dl Calcium 7.6 L (8.6-10.3) mg/dl Total Bilirubin 0.6 (0.2-1.0) mg/dl Direct Bilirubin 0.2 (0-0.2) mg/dl AST 58 H (13-39) U/L ALT 28 (7-52) U/L Alkaline Phosphatase 82 (34-104) U/L Ammonia 18.0 (18-72) umol/L Total Protein 5.1 L (6.0-8.3) gm/dl Albumin 1.9 L (3.4-5.0) gm/dl Urine Color Yellow Urine Appearance Clear (Clear) Urine pH 5.5 (4.5-7.5) Ur Specific [place] 1.010 (1.000-1.030) Urine Protein Negative (Negative) Urine Glucose (UA) Negative (Negative) Urine Ketones Negative (Negative) Urine Blood Negative (Negative) Urine Nitrite Negative (Negative) Urine Bilirubin Negative (Negative) Urine Urobilinogen Negative (Negative) Ur Leukocyte Esterase Negative (Negative) Administered Medications Morphine Sulfate (Morphine Sulfate 2 Mg/Ml Carp) 2 mg IM Q2H PRN PRN Reason: Pain Stop: 11/30/23 22:40 Last Admin: 11/17/23 00:06 Dose: 2 mg Documented By: YASEMIN Morphine Sulfate (Morphine Sulfate 2 Mg/Ml Carp) 2 mg IV Q30M PRN PRN Reason: Pain 5-10 Stop: 12/01/23 00:22 Last Admin: 11/17/23 00:35 Dose: 2 mg Documented By: YASEMIN Discontinued Medications Ceftriaxone Sodium (Ceftriaxone Sodium 350 Mg/Ml Im) 2,000 mg IM NOW STA Stop: 11/16/23 22:51 Last Admin: 11/16/23 23:25 Dose: 2,000 mg Documented By: YASEMIN Ketorolac Tromethamine (Ketorolac Tromethamine 60 Mg/2 Ml Vial) 15 mg IM NOW STA Stop: 11/16/23 22:36 Last Admin: 11/16/23 23:18 Dose: 15 mg Documented By: YASEMIN Imaging Data Radiologist's Impression: Head CT 11/16/23 18:04 CT head/brain wo con CLINICAL HISTORY: confusion Technique: Contiguous axial CT images of the head were acquired from the base of the skull to the vertex without intravenous contrast administration. Images were viewed in brain, subdural and bone windows. Automated dose lowering techniques and/or adjustment according to patient size were utilized for this exam. Comparison: Comparison is made to CT head 07/29/2023 Findings: The ventricles, basal cisterns, and cerebral sulci are normal. There is no acute intracranial hemorrhage or evidence of acute territorial infarction. Neither mass effect, shift of the midline structures, nor abnormal extra-axial fluid collections are shown. Mild age-related changes are seen. Postsurgical changes are seen in the bilateral axilla. Imaged portions of the paranasal sinuses and mastoid air cells are clear. The orbits appear normal. There are no acute fractures of the calvaria or scalp swelling. Impression: No acute intracranial hemorrhage, no evidence of acute territorial infarction or other acute intracranial disease process. ACT 112: Negative or not required by law. Electronically signed by: Farhan Higgins M.D. 11/16/2023 10:20 PM Discharge Plan Visit Data Chief Complaint: Confusion Stated Complaint: hallucinations ED Provider: Adilson Montero Discharge Problem: Acute confusion Patient Disposition: Admitted As Inpatient Discharge Instructions Interventions: ED Discharge Assessment Last Done: 11/17/23 00:17
[2023-11-16 21:52] LABS: Appearance Urine Clear (Clear); Bilirubin Urine Negative (Negative); Blood Urine Negative (Negative); Color Urine Yellow; Glucose Urine UA Negative (Negative); Ketones Urine Negative (Negative); Leukocyte Esterase Urine Negative (Negative); Nitrite Urine Negative (Negative); Protein Urine Negative (Negative); Urobilinogen Urine Negative (Negative); pH Urine 5.5 (4.5-7.5)
--- NOTE | 2023-11-16 22:06 | History & Physical Report ---
Date of Service November 16, 2023 Assessment & Plan (1) Osteomyelitis of coccyx: Plan: Patient with long clinical course after hip fracture and replacement in March 2021. Has had multiple bouts of infection Reviewed MRI report - significant for coccyx osteomyelitis. There isn't coverage for ortho spine this weekend. Consulted gen surg. Would consult ortho spine on Saturday. Patient with difficult to obtain IV access. Luckily patient previously grew pansensitive organisms so IM CTX is an option. Blood cultures obtained - 1 set prior to initiation of abx. Given CTX 2 g IM. Will need continued abx either IM or IV depending on available access. Will likely need PICC line for outpatient IV abx. Would recommend day team consult ID for assistance in abx management. PICC line ordered - consent not done Gen Surg consult - appreciate recs Consider consulting ortho spine Saturday NPO at midnight Rec ID consult in the AM 2 g CTX IM given 11:30 pm 11/15, will need further abx ordered Wound consult placed Continue wound vac f/u blood cultures Pain management: Gave 1 time dose of Toradol, ineffective PRN IV vs IM morphine depending on access Continue home - baclofen and pregabalin Hold home oxy while on IV/IM morphine Patient came with wound vac in place, but the medical management trainer/battery was not brought with them. I ordered a replacement vac 21:44. The vac then and there was a delay in obtaining the new vac. Per protocol patient then changed to a wet to dry dressing. Discussed with nursing and there was significant blood at the site. Patient will need a new vac placed. Gen surg consulted as above. Will continue to monitor output. (2) Diabetic nephropathy with proteinuria: Plan: CKD IV. Baseline 2.4-2.6. 1.9 on admit. Baseline has significantly improved since having gastric bypass surgery. Does have fistula in case she ends up needing dialysis. Has been told by nephrology that she should not have a port. Would consider consult while inpatient as patient may need terminal system operator access. SSI while inpatient. Appears to be on carb ratio only outpatient. Would clarify home dosing. (3) Diastolic CHF: Plan: Last ECHO 04/2023. EF 50%. Gentle hydration 80 mL/hr NSS x 2 bags. If concern for fluid overload would give lasix and would repeat ECHO. (4) Atrial fibrillation: Plan: Eliquis held on admission for possible procedure. Last dose unclear. If no intervention planned would restart Eliquis. Will continue dilt and metop while here. (5) Anxiety and depression: Plan: Continued BuSpar and trazodone. Dosing of fluvoxamine is unclear. Med Rec shows 100 mg QPM, 50 mg BID, and 50 mg QPM. Unclear on dosing. Would clarify prior to restarting. (6) Diarrhea: Plan: BioFire and c. dif ordered. If negative can resume home Imodium as needed for diarrhea (7) Weakness: Plan: PT/OT ordered. (8) Physical deconditioning: Plan: See above (9) Hypercholesterolemia: Plan: Holding home statin for now. (10) COPD (chronic obstructive pulmonary disease): Plan: Not on any home medications. Currently on RA. Continue to monitor. (11) HTN (hypertension): Plan: See above (12) Nocturnal hypoxia: Plan: On oxygen at night. Can continue while inpatient. (13) Urinary frequency: Plan: UA negative. Continue to monitor. (14) History of femur fracture: Plan: See above (15) Left hip postoperative wound infection: Plan: See above (16) Sacral wound: Plan: See above (17) Status post gastric bypass for obesity: Plan Code status: Conditional - DNR, intubation okay for respiratory failure DVT ppx: holding Eliquis for possible procedure, would resume if no intervention planned FENGI: NPO for possible procedure IVF @ 80 mL/hr, carb consistent Dispo: PCU/Tele History of Present Illness Chief Complaint: left hip pain Primary Care Provider: William Lewis MD Patient brought in from [facility] for confusion and hallucinations. In the ED patient is reportedly speaking incorrect/nonsensical things. Work up limited by ability to obtain IV access. CT Head without acute bleed. Upon my interview patient is speaking coherently and accurately. Remember both short term and nursing home information without difficulty. Patient with urinary frequency and watery diarrhea starting about 5 days prior. She also started having increased left hip pain around that time. Patient has been stating for days that she needs to go to the ED. She has been concerned about her left hip wound and believes she has an infection, but her concerns were not taken seriously. Patient was 302-ed by her family and initially brought to the [facility]. Patient then identified as a medical patient and moved to . Patient has had a non-healing wound for months. Currently on wound vac. Was seen outpatient 11/13 and had an MRI the following day to evaluate for osteomyelitis. The results have not been reviewed with her at this time. The patient denies any fevers, chills, CP, nausea, abdominal pain, pain with urination, or calf pain. Patient does note that she was having increased work of breathing and was initially on oxygen when she arrived to the ED. SOB has resolved. Able to obtain MRI 11/14 which shows signs of osteomyelitis of the coccyx. Allergies Allergy/AdvReac Type Severity Reaction Status Date / Time Iodinated Contrast Media Allergy Unknown Unknown Verified 11/16/23 23:13 [Iodinated Contrast- Oral and IV Dye] promethazine AdvReac Intermediate BROKEN Verified 11/16/23 23:13 CAPILLARIES FACE Home Medications Medication Instructions Recorded Confirmed Type buspirone 15 mg tablet 15 mg PO BID 11/28/20 11/16/23 History lancets (OneTouch UltraSoft #400 ea 04/12/21 10/15/23 Rx Lancets) trazodone 100 mg tablet 100 mg PO HS 07/09/22 11/16/23 History cyanocobalamin (vitamin B-12) 2,500 mcg PO 2XWK 10/08/22 11/16/23 History 2,500 mcg tablet blood sugar diagnostic #300 ea 12/10/22 10/15/23 Rx atorvastatin 80 mg tablet 80 mg PO HS #90 tabs 12/24/22 11/16/23 Rx levothyroxine 50 mcg tablet 50 mcg PO DAILYBB #90 tabs 01/23/23 11/16/23 Rx insulin syringe-needle U-100 0.5 #400 ea 02/05/23 10/15/23 Rx mL 31 gauge x 5/16" (Easy Comfort Insulin Syringe) folic acid 1 mg tablet 1 mg PO QAM #90 tabs 02/22/23 11/16/23 Rx epoetin fernando-epbx 40,000 unit/mL 40,000 unit subcut UD 28 days #28 07/01/23 11/16/23 Rx injection solution (Retacrit) mL docusate sodium 100 mg capsule 100 mg PO QAM Constipation 07/04/23 11/16/23 History (Colace) fenofibrate 160 mg tablet 160 mg PO QAM 07/04/23 11/16/23 History pregabalin 75 mg capsule (Lyrica) 75 mg PO BID 07/04/23 11/16/23 History pantoprazole 40 mg tablet,delayed 40 mg PO BID #60 tabs 07/09/23 11/16/23 Rx release bumetanide 2 mg tablet 2 mg PO QAM 07/24/23 11/16/23 History metoprolol succinate 25 mg 25 mg PO DAILY #90 tabs 07/26/23 11/16/23 Rx tablet,extended release 24 hr apixaban 5 mg tablet (Eliquis) 5 mg PO BID #60 tabs 08/30/23 11/16/23 Rx acetaminophen 325 mg capsule 650 mg PO QID PRN Fever Or Pain 09/23/23 11/16/23 History (Tylenol) cholecalciferol (vitamin D3) 125 125 mcg PO DAILY 09/23/23 11/16/23 History mcg (5,000 unit) capsule diltiazem HCl 180 mg capsule,24 180 mg PO DAILY 09/23/23 11/16/23 History hr,extended release fluvoxamine 100 mg tablet 100 mg PO QPM 09/23/23 11/16/23 History fluvoxamine 50 mg tablet 50 mg PO BID 09/23/23 11/16/23 History loperamide 2 mg capsule 2 mg PO TID PRN Diarrhea 09/23/23 11/16/23 History (Anti-Diarrheal (loperamide)) multivitamin with iron 1 tab PO DAILY 09/23/23 11/16/23 History nystatin 100,000 unit/gram topical 1 applic topical DAILY PRN .flare 09/23/23 11/16/23 History powder ups ondansetron HCl 4 mg tablet 4 mg PO Q6H PRN nausea and vomiting 09/23/23 11/16/23 History oxycodone 5 mg capsule 5 mg PO Q6H PRN pain 09/23/23 11/16/23 History calcium carbonate (Calcium 600) 600 mg PO DAILY 11/16/23 11/16/23 History fluvoxamine 50 mg tablet 50 mg PO QPM 11/16/23 11/16/23 History lorazepam 0.5 mg tablet (Ativan) 0.5 mg PO BID PRN Anxiety 11/16/23 11/16/23 History sodium hypochlorite 0.25 % 1 applic topical DIRECTED 11/16/23 11/16/23 History solution (Dakin's Solution) sodium hypochlorite 0.25 % 1 applic topical DIRECTED 11/16/23 11/16/23 History solution (Dakin's Solution) Past Med/Surg History Problem List (Updated 11/17/23 @ 15:36 by Latanya Diaz MD) Acute metabolic encephalopathy Acute confusion (Acute) Urinary frequency Diarrhea Osteomyelitis of coccyx History of femur fracture (04/08/23) Displaced fracture of neck of left femur, from a fall-saw orthopedics and had surgery Left hip pain Effusion, left knee MSSA (methicillin susceptible Staphylococcus aureus) infection Left hip postoperative wound infection Sacral wound Elevated CK Elevated troponin (Acute) Weakness (Acute) Physical deconditioning Wandering atrial pacemaker Sacral decubitus ulcer Urinary retention Constipation Hyperkalemia Abnormal rhythmic movement of tongue Tear of right hamstring Hamstring tendinitis Piriformis syndrome of right side History of colon polyps Diabetic nephropathy with proteinuria Fatty (change of) liver, not elsewhere classified Diastolic CHF S/P shoulder replacement Osteoarthritis of left knee Foot drop Idiopathic polyneuropathy Hypercholesterolemia Atrial fibrillation (Acute) Restrictive lung disease secondary to obesity Type 2 diabetes mellitus Restrictive lung disease COPD (chronic obstructive pulmonary disease) (Chronic) Obsessive compulsive disorder (Chronic) Left ventricular hypertrophy (Chronic) Diabetic nephropathy (Chronic) Anemia (Chronic) HTN (hypertension) (Chronic) Acute kidney injury Swelling of right upper extremity Dizziness Atrial flutter History of partial replacement of left hip joint using bipolar prosthesis (04/09/23) Status post gastric bypass for obesity 09/14/2020- Dr. 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 Per [facility] pulm 12/2019, "fairly stable from a pulmonary perspective. She is short of breath with any exertion, however a large part of this is likely related to obesity. Pulmonary functions done 1 year ago showed only a mild restrictive pattern. Diffusion was slightly decreased to 66%. One year ago she did have a normal arterial blood gas with no evidence of CO2 retention." Using PRN 3L, mostly using with exertion, not using every day. Nasal septal deviation (Chronic) Nocturnal hypoxia (Chronic) 2-3L N/C - during night Nontoxic multinodular goiter (Chronic) TRUMAN (obstructive sleep apnea) PRESCRIBED BIPAP-CAN'T TOLERATE-CLAUSTROPHOBIC Anemia due to chronic kidney disease Chronic kidney disease, stage 4 (severe) Medical History Retention of urine, unspecified Pressure ulcer of sacral region, stage 4 Obsessive compulsive disorder Muscle wasting and atrophy, not elsewhere classified, other site Acute kidney injury Swelling of right upper extremity Atrial flutter History of partial replacement of left hip joint using bipolar prosthesis (04/09/23) History of COVID-19 On home oxygen therapy Vitamin D deficiency Fluid retention Right sided sciatica Pneumonia AV fistula Atrial fibrillation and flutter Dizziness Generalized weakness Syncope PAF (paroxysmal atrial fibrillation) Atrial fibrillation, new onset Cardiac murmur Chronic kidney disease, stage 4 (severe) Anemia due to chronic kidney disease TRUMAN (obstructive sleep apnea) Obesity hypoventilation syndrome Nontoxic multinodular goiter Nocturnal hypoxia Nasal septal deviation Morbid obesity Mixed restrictive and obstructive lung disease Diastolic congestive heart failure Diabetic retinopathy, nonproliferative Diabetic peripheral neuropathy Claustrophobia Chronic rhinitis Arthralgia of multiple sites Anxiety and depression Chronic low back pain Hypothyroidism Hyperlipemia Hypertension Diabetes Surgical History History of incision and drainage (05/06/23) History of bilateral cataract extraction History of cardioversion Status post gastric bypass for obesity History of arthroscopy History of total shoulder replacement History of esophagogastroduodenoscopy (EGD) History of colonoscopy History of dermoid cyst excision S/P tooth extraction History of mandibular surgery H/O section Hx of cholecystectomy Family History Daughter Multiple allergies Bipolar disorder Aunt Breast cancer Mother Diabetes Heart disease Hyperthyroidism Hypertension Father Gastric cancer Hearing loss Myocardial infarction Grandfather Heart disease Family/Other Osteoporosis Lung cancer Hypertension Stroke Brother Hypertension Grandmother Ovarian cancer Sister Diabetes Migraine Other No family history of adverse response to anesthesia Denies family history of Prostate cancer Colorectal cancer Uterine cancer Social History Smoking Status: Never smoker Second Hand Exposure: No; Do You Dip or Chew Tobacco: No; Hx Alcohol Use: No Hx Substance Use: No (Unknown - Resident of [facility]) Preferred Language: Indonesian Communication Ability: Effective Visual Impairment: No Limitations 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 Required: No Beliefs That Will Affect Care: None marital status: Current Living Situation: [facility] Current Living Situation Comment: [facility] since 08/22/23 current occupational status: employed and unemployed Feels Safe at Home: Yes Childhood Exposure to Second-Hand Smoke: Yes Dental Care, Regularly: Yes Physical Activity Frequency: Does not Exercise Seatbelt Use: always Sunscreen Use: Yes Assistive Devices: Walker Review of Systems 2 Review of Systems: See HPI Physical Exam 2 Physical Exam: Gen: well appearing patient in NAD HEENT: AT NC MMM Resp: CTAB no wheezing no increased work of breathing CV: RRR 2-3/6 systolic murmur, no rubs or gallops, clinically well perfused Abd: soft, non-tender, +BS, non-distended MSK: no obvious deformities Skin: warm, no rashes or bruising Neuro: alert and oriented Psych: appropriate mood and affect Results & Data Results & Data Vital Signs (Past 12 Hours) Vital Signs Temp Pulse Pulse Resp BP BP Pulse Ox 11/16/23 21:05 91 H 11/16/23 20:33 89 14 98 11/16/23 20:21 57 L 18 98 11/16/23 19:30 75 10 L 96 11/16/23 17:35 83 16 146/83 H 98 11/16/23 17:35 98 11/16/23 17:35 36.7 C 83 16 146/83 H 98 11/16/23 17:13 45 L O2 Del Method 11/16/23 21:05 11/16/23 20:33 11/16/23 20:21 11/16/23 19:30 11/16/23 17:35 Room Air 11/16/23 17:35 Room Air 11/16/23 17:35 Room Air 11/16/23 17:13 Laboratory Results 11/16/23 19:07 11/16/23 19:07 Diagnostic Findings Report MRI Pelvis 11/14 w/o contrast: Findings: There is a soft tissue ulcer overlying the sacrum, with the defect measuring approximately 3 cm in diabetes and 1-1.5 cm in depth. There is soft tissue edema and apparent granulation tissue that extends from the ulcer to the underlying bone, and there may also be a decompressed tract extending to the bone is well. There is corresponding bone marrow edema, loss of T1 marrow signal, and cortical irregularity in the [id number] portion of the coccyx, consistent with osteomyelitis. No discrete fluid collection/abscess identified. Multilevel intervertebral disc degeneration in the visualized lumbar spine, severe at L5-S1. Diffuse edema of the pelvic musculature. THere is also diffuse subcutaneous edema throughout the pelvis. Small amount of nonspecific free fluid in the prelvis. Impression: Sacral decubitus ulcer, with underlying osteomyelitis of the coccyx Supervising Physician Co-Signing Physician Notes Attending addendum: I have physically seen this patient, have supervised the medical residents activities, and agree with the H&P unless as otherwise noted. Assessment and Plan: Osteomyelitis of coccyx/chronic sacral decubitus- As noted on MRI performed the previous day Patient To have difficult access, and was initially given ceftriaxone 2 g IM Advancing antibiotics once IV access obtained to vancomycin and Zosyn IV Consult to orthopedic spine surgery Consult infectious disease Will need longer-term access such as PICC line Should be considered for a port at some point in the future Wound VAC will need to be replaced as noted Consult wound care as well CKD/diabetic nephropathy with proteinuria- Patient has fistula in place in the event that she needs dialysis in the future Creatinine 1.90, with base range 1.78-2.17 Follow serial laboratories Atrial fibrillation/diastolic CHF/hypertension- Echo from 05/09 with ejection fraction 50% Gentle hydration with NSS at 80 mL/h x 2 L Hold Eliquis temporarily in the event a procedure is needed Follow examination Remaining orders and notations as noted Resident Activity Tracking Resident Involvement: Resident Care Provided Care Provided: Adult Hospital Medicine (4) Atrial fibrillation Atrial fibrillation type: unspecified Qualified Code(s): I48.91 - Unspecified atrial fibrillation
--- NOTE | 2023-11-16 22:22 | CT Scan Report ---
CT head/brain wo con CLINICAL HISTORY: confusion Technique: Contiguous axial CT images of the head were acquired from the base of the skull to the leonel gigi without intravenous contrast administration. Images were viewed in brain, subdural and [facility]. Automated dose lowering techniques and/or adjustment according to patient size were utilized for this exam. Comparison: Comparison is made to CT head 07/29/2023 Findings: The ventricles, basal cisterns, and cerebral sulci are normal. There is no acute intracranial hemorrh age or evidence of acute territorial infarction. Neither mass effect, shift of the midline structures , nor abnormal extra-axial fluid collections are shown. Mild age-related changes are seen. Postsurgi zuri changes are seen in the bilateral axilla. Imaged portions of the paranasal sinuses and mastoid air cells are clear. The orbits appear normal. There are no acute fractures of the calvaria or scalp swelling. Impression: No acute intracranial hemorrhage, no evidence of acute territorial infarction or other acute intracra nial disease process. ACT 112: Negative or not required by law. Electronically signed by: Farhan Higgins M.D. 11/16/2023 10:20 PM
[2023-11-16] MEDS ORDERED: oxyCODONE HCL IR 5 MG TAB (IMMEDIATE RELEASE) PO PRN ×2 (22:26→22:52)
[2023-11-16] MEDS ORDERED: LOPERAMIDE HCL 2 MG CAP PO PRN (22:26)
[2023-11-16] MEDS ORDERED: NYSTATIN POWDER 15GM BTL EXT PRN (22:26)
[2023-11-16] MEDS: KETOROLAC TROMETHAMINE 60 MG/2 ML VIAL IM STA (23:18)
[2023-11-16] MEDS: cefTRIAXone SODIUM 350 MG/ML IM IM STA (23:25)
[2023-11-17] MEDS: MoRPHine SULFATE 2 MG/ML CARP IM PRN (00:06)
[2023-11-17] MEDS ORDERED: GLUCOSE 10 TAB/TUBE PO PRN (00:23)
[2023-11-17] MEDS ORDERED: GLUCOSE 40% GEL 15 GM TUBE PO PRN (00:23)
[2023-11-17] MEDS ORDERED: POLYETHYLENE (MIRALAX) 17 GM PACK PO PRN (00:23)
[2023-11-17] MEDS ORDERED: DEXTROSE 50% 50 ML SYRINGE IV PRN (00:23)
[2023-11-17] MEDS ORDERED: GLUCAGON FOR INJ 1 MG VIAL SQ PRN (00:23)
[2023-11-17] MEDS: MoRPHine SULFATE 2 MG/ML CARP IV PRN (00:35)
[2023-11-17] MEDS: LORazepam 1 MG TAB PO PRN (01:00)
[2023-11-17] MEDS: LORazepam 0.5 MG in SYRINGE 0.25 ML IV ONE (01:43)
[2023-11-17] MEDS: SODIUM CHLORIDE 0.9% 1,000 ML IV STA (02:27)
[2023-11-17] MEDS: ALBUMIN 25% 25 GM/100 ML VIAL IV ONE (03:30)
[2023-11-17 05:05] LABS: Albumin Globulin Ratio 0.7 (0.9-2); Albumin Level 1.7 gm/dl (3.4-5.0); BUN Creatinine Ratio 39.7 (10-20); Bilirubin,Total 0.4 mg/dl (0.2-1.0); Creatinine Clr Calc Pharmacy 40.2 ml/min; Est GFR (Non-African American) 30.2 ml/min; Globulin 2.4 gm/dl (2.5-4.0); Potassium 3.3 mmol/L (3.5-5.1); Total Protein 4.1 gm/dl (6.0-8.3)
[2023-11-17 05:27] LABS: Basophils # (auto) 0.01 K/uL (0.00-0.20); Basophils % (auto) 0.3 %; Eosinophils # (auto) 0.06 K/uL (0.00-0.50); Eosinophils % (auto) 1.6 %; Hematocrit (blood only) 25.9 % (37.0-47.0); Hemoglobin 8.2 g/dl (12.0-16.0); Immature Granulocytes # (auto) 0.02 K/uL (0.01-0.20); Immature Granulocytes % (auto) 0.5 %; Lymphocytes % (auto) 20.8 %; Mean Corpuscular Hgb Conc 31.7 g/dL (32.0-36.0); Mean Corpuscular Volume 82.2 fL (80.0-100.0); Monocytes # (auto) 0.24 K/uL (0.11-0.59); Monocytes % (auto) 6.2 %; Neutrophils # (auto) 2.72 K/uL (1.40-6.50); Neutrophils % (auto) 70.6 %; Platelet Count 86 K/uL (130-400); RDW Coefficient of Variation 17.6 % (11.5-14.5); RDW Standard Deviation 51.2 fL (36.4-46.3); Red Blood Count 3.15 M/uL (4.20-5.40); White Blood Count 3.85 K/ul (4.8-10.8)
[2023-11-17] MEDS: INSULIN ASPART PER UNIT CHARGE SC SCH ×2 (06:21→18:34)
[2023-11-17] MEDS: POTASSIUM CHLORIDE CRTAB 20 MEQ TABCR PO STA (06:36)
[2023-11-17] MEDS: BUMETANIDE 1 MG TAB PO SCH (09:21)
[2023-11-17] MEDS: busPIRone 15 MG TAB PO SCH (09:22)
[2023-11-17] MEDS: dilTIAZem HCL 180 MG CAPCR PO SCH (09:22)
[2023-11-17] MEDS: METOPROLOL SUCC 25MG EXT REL TAB PO SCH (09:24)
[2023-11-17] MEDS: PREGABALIN 75 MG CAP PO ONE (09:25)
[2023-11-17] MEDS: PANTOprazole 40 MG TAB PO SCH (09:26)
[2023-11-17] MEDS: POTASSIUM CHLORIDE 10 MEQ TABCR PO STA (09:31)
[2023-11-17] MEDS: PREGABALIN 75 MG CAP PO SCH (09:43)
--- NOTE | 2023-11-17 12:25 | Hospitalist Progress Note ---
Date of Service November 17, 2023 Assessment & Plan (1) Acute metabolic encephalopathy: Plan: 63 y/o with CKD-4 and multiple medical problems who was sent in to ED from nursing facility for psychiatric evaluation because of hallucinations and behavior change. Found to have medical not psychiatric reason for altered mental status and was evaluated for acute metabolic encephalopathy. Head CT without acute findings. Mentation was normal when I evaluated her late morning after admission. Acute metabolic encephalopathy - consistent with delirium. Unclear trigger but may be resolved - AOx4 this morning and no hallucinations -unclear trigger - potential infection (see below), dehydration related to diarrhea, polypharmacy -reduced polypharmacy for now -decreased trazodone, held buspar, held pregabalin, held baclofen, decreased PRN lorazepam to home dose 0.5 bid prn, judicious opioids -clarify whether supposed to be on fluvoxamine (2) Left hip pain: Plan: Left hip pain - severe x 6 weeks and no longer ambulatory or even sitting in wheelchair. Using a lift at facility x 1 month. Painful with minimal ROM. Evaluated during hospitalization in Jul 2023 and treated for hip wound SSTI but not thought to have prosthetic joint infection per last ID note: # L hip subcutaneous collection s/p aspiration 08/08 cx neg # L hip wound infection - L hip swab WCx + MSSA and skin lesly, L hip arthrocentesis + Corynebacterium and skin lesly (per ortho low suspicion for joint infection) # h/o L femur fracture s/p repair 04/09/23 # L knee effusion s/p arthrocentesis w/ removal of 25 mL clear, serous fluid on 08/06 (no studies sent) On my exam she is painful with any ROM of LLE. Vague historian difficult exam and hard for me to tell whether hip joint pain, radicular pain, both, or something else Plan: start with at least xrays. Check CRP and ESR = 2.5 and ESR very low at 2. reviewed hip x-ray unrevealing, no fracture. will consult ortho hold off on further antibiotics for now (3) Sacral decubitus ulcer: Plan: Stage 4 sacral decubitus ulcer (present on admission) with underlying sacral osteomyelitis based on MRI of pelvis 11/14 (done at [facility], report reviewed) -present since fall of 2022. Had debridement 05/06/23. Has been on wound vac. -unclear whether any acute wound infection. No fever/leukocytosis and I can't turn her without significant assistance - notified nurses to call me when wound care is being done -consulted general surgery - I discussed with Dr. Langley this am - Based on exam decubitus does not appear acutely infected recommended ongoing wound care/wound VAC, CRP is 2.5 and ESR is 2 which argues against acute osteomyelitis or significant wound infection -would be a candidate for short course of IV abx for acute infection, however, I don't see evidence of sacral SSTI, she is in too poor of health and too malnourished to consider a flap which she would not be able to heal, so would not benefit from prolonged course of IV abx for the chronic osteomyelitis -consulted wound care nurse (4) Diarrhea: Plan: Reports several days of diarrhea without abdominal pain, watery. Did have broad spectrum IV antibiotics in Jul 2023 at risk for CDI -Given IV fluids. If more diarrhea collect specimen for C. diff toxin and stool biofire (5) Chronic kidney disease, stage 4 (severe): Plan: CKD stage 4 - primary developer designer is Dr. Kang, Has AVF RUE +thrill -Cr is at baseline -avoid nephrotoxins, continue oral bumex Plan Extremely poor venous access - has one tiny LUE PIV. KVO rate. No targets for PICC. Anasarca and malnutrition - will significantly impair her wound healing History of gastric bypass. Labs as below -serum albumin <= 2. Consulted church history teacher pancytopeniaversus diluted to CBC sample, repeat CBC with differential in a.m. she does have chronic thrombocytopenia ranges from moderate to normal platelet count. Also more anemic. Check labs for anemia and malnutrition: B12, B1, iron studies, folate. Also check TSH (last 1 year ago) Chronic/past issues per chart review: TRUMAN intolerant of CPAP, mixed restrictive and obstructive lung disease HFpEF not in exacerbation History of afib/flutter Morbid obesity with BMI of 37 Hypertension Hypothyroidism stable, downgrade to med/surg discussed plan of care with bedside nurses Conditional code Admission and Anticipated Discharge Date Admission Date: November 16, 2023 Subjective L hip very painful x 6 weeks. Nonambulatory for at least a month because of this. Needing to use a lift for past month. Can't tolerate sitting in wheelchair any more. Pain with any movement of L hip. Sacral decubitus is painful, not more than usual but can't get off bottom because of hip pain. Has gotten very edematous everywhere recently. Has chronic nausea and poor appetite, uses zofran prn, no recent emesis. Had mental status changes last few days - was said to have been hallucinating and very mean to regular staff at facility which is not characteristic of her at all. Improved today. Has had diarrhea for several days without abdominal pain. Had antibiotics in jul-august hip wound infection. No dyspnea/cough/CP. No dysuria or SP pain. Was lethargic overnight because IV lorazepam was given in ED. Since 9AM today has been AOx4 Physical Exam 2 Physical Exam: PHYSICAL EXAMINATION Last 24h vital signs reviewed, see documentation in flowsheet General: comfortable appearing, no distress, chronically ill appearing and pale HEENT: Normocephalic, atraumatic, pupils round and equal, sclerae anicteric, no conjunctival injection, moist mucus membranes Lungs: Normal respiratory effort. Clear to auscultation bilaterally. No RRW Heart: Regular rate and rhythm, no murmurs. No JVD Abdomen: Soft, nontender, nondistended. Bowel sounds present. Extremities: Warm, dry, well-perfused. anasarca present with pitting edema around buttocks thighs hips and lower extremities Neuro: Alert and oriented x 4, face symmetric, moves 4 extremities well Psych: Normal affect and behavior, no hallucinations no confusion, pleasant interaction Results & Data Results & Data Vital Signs (Past 12 Hours) Vital Signs Temp Pulse Pulse Resp BP Pulse Ox Pulse Ox 11/17/23 07:09 61 11/17/23 06:13 65 16 113/58 L 94 11/17/23 01:38 91 11/17/23 01:38 36.9 C 60 12 103/68 92 O2 Del Method O2 Del Method 11/17/23 07:09 11/17/23 06:13 Room Air 11/17/23 01:38 Room Air 11/17/23 01:38 Room Air Laboratory Results 11/17/23 04:15 11/17/23 04:15 PG Care Time/CCT Total # of Minutes Spent Total Time Spent with Patient: I personally spent: 75 minutes today on clinical care activities including: reviewing chart notes and vital signs reviewing records from previous hospitalizations as well as outpatient clinic records, review microbiology from previous admissions reviewing labs reviewing studies discussion with political consultant(s) discussion with health care facility administrator examining and counseling the patient writing orders documentation Coding Level of Care Code 34367 SUB INP/OBS CARE 350MIN Diagnoses Acute metabolic encephalopathy G93.41 Left hip pain M25.552 Sacral decubitus ulcer L89.159 Diarrhea R19.7 Chronic kidney disease, stage 4 (severe) N18.4
[2023-11-17 12:28] LABS: C Reactive Protein 2.55 mg/dl (0-0.5)
--- NOTE | 2023-11-17 12:53 | Surgery Consultation ---
Date of Consultation November 17, 2023 History of Present Illness Reason for Consultation: Osteomyelitis Attending Physician: Latanya Diaz MD Allergies Allergy/AdvReac Type Severity Reaction Status Date / Time Iodinated Contrast Media Allergy Unknown Unknown Verified 11/16/23 23:13 [Iodinated Contrast- Oral and IV Dye] promethazine AdvReac Intermediate BROKEN Verified 11/16/23 23:13 CAPILLARIES FACE Home Medications Medication Instructions Recorded Confirmed Type buspirone 15 mg tablet 15 mg PO BID 11/28/20 11/16/23 History lancets (OneTouch UltraSoft #400 ea 04/12/21 10/15/23 Rx Lancets) trazodone 100 mg tablet 100 mg PO HS 07/09/22 11/16/23 History cyanocobalamin (vitamin B-12) 2,500 mcg PO 2XWK 10/08/22 11/16/23 History 2,500 mcg tablet blood sugar diagnostic #300 ea 12/10/22 10/15/23 Rx atorvastatin 80 mg tablet 80 mg PO HS #90 tabs 12/24/22 11/16/23 Rx levothyroxine 50 mcg tablet 50 mcg PO DAILYBB #90 tabs 01/23/23 11/16/23 Rx insulin syringe-needle U-100 0.5 #400 ea 02/05/23 10/15/23 Rx mL 31 gauge x 5/16" (Easy Comfort Insulin Syringe) folic acid 1 mg tablet 1 mg PO QAM #90 tabs 02/22/23 11/16/23 Rx epoetin fernando-epbx 40,000 unit/mL 40,000 unit subcut UD 28 days #28 07/01/23 11/16/23 Rx injection solution (Retacrit) mL docusate sodium 100 mg capsule 100 mg PO QAM Constipation 07/04/23 11/16/23 History (Colace) fenofibrate 160 mg tablet 160 mg PO QAM 07/04/23 11/16/23 History pregabalin 75 mg capsule (Lyrica) 75 mg PO BID 07/04/23 11/16/23 History pantoprazole 40 mg tablet,delayed 40 mg PO BID #60 tabs 07/09/23 11/16/23 Rx release bumetanide 2 mg tablet 2 mg PO QAM 07/24/23 11/16/23 History metoprolol succinate 25 mg 25 mg PO DAILY #90 tabs 07/26/23 11/16/23 Rx tablet,extended release 24 hr apixaban 5 mg tablet (Eliquis) 5 mg PO BID #60 tabs 08/30/23 11/16/23 Rx acetaminophen 325 mg capsule 650 mg PO QID PRN Fever Or Pain 09/23/23 11/16/23 History (Tylenol) cholecalciferol (vitamin D3) 125 125 mcg PO DAILY 09/23/23 11/16/23 History mcg (5,000 unit) capsule diltiazem HCl 180 mg capsule,24 180 mg PO DAILY 09/23/23 11/16/23 History hr,extended release fluvoxamine 100 mg tablet 100 mg PO QPM 09/23/23 11/16/23 History fluvoxamine 50 mg tablet 50 mg PO BID 09/23/23 11/16/23 History loperamide 2 mg capsule 2 mg PO TID PRN Diarrhea 09/23/23 11/16/23 History (Anti-Diarrheal (loperamide)) multivitamin with iron 1 tab PO DAILY 09/23/23 11/16/23 History nystatin 100,000 unit/gram topical 1 applic topical DAILY PRN .flare 09/23/23 11/16/23 History powder ups ondansetron HCl 4 mg tablet 4 mg PO Q6H PRN nausea and vomiting 09/23/23 11/16/23 History oxycodone 5 mg capsule 5 mg PO Q6H PRN pain 09/23/23 11/16/23 History calcium carbonate (Calcium 600) 600 mg PO DAILY 11/16/23 11/16/23 History fluvoxamine 50 mg tablet 50 mg PO QPM 11/16/23 11/16/23 History lorazepam 0.5 mg tablet (Ativan) 0.5 mg PO BID PRN Anxiety 11/16/23 11/16/23 History sodium hypochlorite 0.25 % 1 applic topical DIRECTED 11/16/23 11/16/23 Histo ry solution (Dakin's Solution) sodium hypochlorite 0.25 % 1 applic topical DIRECTED 11/16/23 11/16/23 History solution (Dakin's Solution) Patient History Medical History Retention of urine, unspecified Pressure ulcer of sacral region, stage 4 Obsessive compulsive disorder Muscle wasting and atrophy, not elsewhere classified, other site Acute kidney injury Swelling of right upper extremity Atrial flutter History of partial replacement of left hip joint using bipolar prosthesis (04/09/23) History of COVID-19 On home oxygen therapy Vitamin D deficiency Fluid retention Right sided sciatica Pneumonia AV fistula Atrial fibrillation and flutter Dizziness Generalized weakness Syncope PAF (paroxysmal atrial fibrillation) Atrial fibrillation, new onset Cardiac murmur Chronic kidney disease, stage 4 (severe) Anemia due to chronic kidney disease TRUMAN (obstructive sleep apnea) Obesity hypoventilation syndrome Nontoxic multinodular goiter Nocturnal hypoxia Nasal septal deviation Morbid obesity Mixed restrictive and obstructive lung disease Diastolic congestive heart failure Diabetic retinopathy, nonproliferative Diabetic peripheral neuropathy Claustrophobia Chronic rhinitis Arthralgia of multiple sites Anxiety and depression Chronic low back pain Hypothyroidism Hyperlipemia Hypertension Diabetes Surgical History History of incision and drainage (05/06/23) History of bilateral cataract extraction History of cardioversion Status post gastric bypass for obesity History of arthroscopy History of total shoulder replacement History of esophagogastroduodenoscopy (EGD) History of colonoscopy History of dermoid cyst excision S/P tooth extraction History of mandibular surgery H/O section Hx of cholecystectomy Family History Daughter Multiple allergies Bipolar disorder Aunt Breast cancer Mother Diabetes Heart disease Hyperthyroidism Hypertension Father Gastric cancer Hearing loss Myocardial infarction Grandfather Heart disease Family/Other Osteoporosis Lung cancer Hypertension Stroke Brother Hypertension Grandmother Ovarian cancer Sister Diabetes Migraine Other No family history of adverse response to anesthesia Denies family history of Prostate cancer Colorectal cancer Uterine cancer Social History Smoking Status: Never smoker Second Hand Exposure: No; Do You Dip or Chew Tobacco: No; Hx Alcohol Use: No Hx Substance Use: No (Unknown - Resident of [facility] and [facility]) Preferred Language: Kiswahili Communication Ability: Effective Visual Impairment: No Limitations Historiographer Required: No Beliefs That Will Affect Care: None marital status: Current Living Situation: Retirement Current Living Situation Comment: [facility] since 08/22/23 current occupational status: employed and unemployed Feels Safe at Home: Yes Safety Concerns: Feels Safe At This Time Childhood Exposure to Second-Hand Smoke: Yes Dental Care, Regularly: Yes Physical Activity Frequency: Does not Exercise Seatbelt Use: always Sunscreen Use: Yes Assistive Devices: Walker Results & Data Vital Signs (Past 12 Hours) Vital Signs Temp Pulse Pulse Resp BP Pulse Ox Pulse Ox 11/17/23 12:23 78 20 97 11/17/23 12:18 36.7 C 80 20 146/68 H 97 11/17/23 07:09 61 11/17/23 06:13 65 16 113/58 L 94 11/17/23 01:38 91 11/17/23 01:38 36.9 C 60 12 103/68 92 O2 Del Method O2 Del Method 11/17/23 12:23 Room Air 11/17/23 12:18 Room Air 11/17/23 07:09 11/17/23 06:13 Room Air 11/17/23 01:38 Room Air 11/17/23 01:38 Room Air PG Care Time/CCT Total # of Minutes Spent Total Time Spent with Patient: Total time spent is greater than 50% in coordination of care (as documented) at patient's floor/unit and/or counseling patient: Coding
[2023-11-17] MEDS: SODIUM CHLORIDE 0.9% 1,000 ML IV SCH (13:10)
--- NOTE | 2023-11-17 13:25 | Surgery Consultation ---
<Statement entered by Yasmany Langley, - 11/17/23 13:42> I have seen and examined this patient to the best of our ability with the two of us. The home wound vac was in the room but was not on the wound, patient stated the battery was out. We were able to get her rotated to her right side just enough to see that her left hip incision remains closed, well healed with erythema or swelling and a small, roughly 3-4cm wound just above the gluteal crease at the location of the sacral wound that I previously debrided back in April 2023. The wound that is present in this location now is much smaller than it had been previously but does seem deeper. There is no heavy necrotic or infected appearing tissue at the area. Recommend continued wound vac therapy to the sacrum if possible. For now the wound was covered with a dry gauze and ABD. We were not able to assess the right hip or gluteal area. Date of Consultation November 17, 2023 Assessment & Plan (1) Osteomyelitis of coccyx: Plan Patient seen and examined with Dr. Langley. Patient to be admitted by Hospitalist team. IV Abx per primary team. No plan for surgical debridement at this time. Would recommend wound care consultation- can consider placement of new wound vac and bridging both wounds of sacrum. General Surgery will continue to follow. History of Present Illness Reason for Consultation: Wound above gluteal crease. Attending Physician: Latanya Diaz MD History of Present Illness Jerri is a 63-year-old female who presented to [facility] ED from [facility] due to confusion. Our services were consulted due to chronic wound superior to gluteal crease. Per patient, she has had a wound vac in place for a wound that is located just to the right of wound of her gluteal crease. Per ED records, patient underwent MRI of pelvis on 11/14 at [facility] which shows sacral decubitus ulcer with underlying sacral osteomyelitis. Jerri states that she developed this new wound while sitting on bedpan. She reports that she is very tender. She is unable to lay or rotate on her left hip. She has been following with Dr. Childress for ongoing issues with left hip pain and post-op infection. Per office visit with Dr. Childress in September, patient was to follow-up with him PRN. Allergies Allergy/AdvReac Type Severity Reaction Status Date / Time Iodinated Contrast Media Allergy Unknown Unknown Verified 11/16/23 23:13 [Iodinated Contrast- Oral and IV Dye] promethazine AdvReac Intermediate BROKEN Verified 11/16/23 23:13 CAPILLARIES FACE Home Medications Medication Instructions Recorded Confirmed Type buspirone 15 mg tablet 15 mg PO BID 11/28/20 11/16/23 History lancets (OneTouch UltraSoft #400 ea 04/12/21 10/15/23 Rx Lancets) trazodone 100 mg tablet 100 mg PO HS 07/09/22 11/16/23 History cyanocobalamin (vitamin B-12) 2,500 mcg PO 2XWK 10/08/22 11/16/23 History 2,500 mcg tablet blood sugar diagnostic #300 ea 12/10/22 10/15/23 Rx atorvastatin 80 mg tablet 80 mg PO HS #90 tabs 12/24/22 11/16/23 Rx levothyroxine 50 mcg tablet 50 mcg PO DAILYBB #90 tabs 01/23/23 11/16/23 Rx insulin syringe-needle U-100 0.5 #400 ea 02/05/23 10/15/23 Rx mL 31 gauge x 5/16" (Easy Comfort Insulin Syringe) folic acid 1 mg tablet 1 mg PO QAM #90 tabs 02/22/23 11/16/23 Rx epoetin fernando-epbx 40,000 unit/mL 40,000 unit subcut UD 28 days #28 07/01/23 11/16/23 Rx injection solution (Retacrit) mL docusate sodium 100 mg capsule 100 mg PO QAM Constipation 07/04/23 11/16/23 History (Colace) fenofibrate 160 mg tablet 160 mg PO QAM 07/04/23 11/16/23 History pregabalin 75 mg capsule (Lyrica) 75 mg PO BID 07/04/23 11/16/23 History pantoprazole 40 mg tablet,delayed 40 mg PO BID #60 tabs 07/09/23 11/16/23 Rx release bumetanide 2 mg tablet 2 mg PO QAM 07/24/23 11/16/23 History metoprolol succinate 25 mg 25 mg PO DAILY #90 tabs 07/26/23 11/16/23 Rx tablet,extended release 24 hr apixaban 5 mg tablet (Eliquis) 5 mg PO BID #60 tabs 08/30/23 11/16/23 Rx acetaminophen 325 mg capsule 650 mg PO QID PRN Fever Or Pain 09/23/23 11/16/23 History (Tylenol) cholecalciferol (vitamin D3) 125 125 mcg PO DAILY 09/23/23 11/16/23 History mcg (5,000 unit) capsule diltiazem HCl 180 mg capsule,24 180 mg PO DAILY 09/23/23 11/16/23 History hr,extended release fluvoxamine 100 mg tablet 100 mg PO QPM 09/23/23 11/16/23 History fluvoxamine 50 mg tablet 50 mg PO BID 09/23/23 11/16/23 History loperamide 2 mg capsule 2 mg PO TID PRN Diarrhea 09/23/23 11/16/23 History (Anti-Diarrheal (loperamide)) multivitamin with iron 1 tab PO DAILY 09/23/23 11/16/23 History nystatin 100,000 unit/gram topical 1 applic topical DAILY PRN .flare 09/23/23 11/16/23 History powder ups ondansetron HCl 4 mg tablet 4 mg PO Q6H PRN nausea and vomiting 09/23/23 11/16/23 History oxycodone 5 mg capsule 5 mg PO Q6H PRN pain 09/23/23 11/16/23 History calcium carbonate (Calcium 600) 600 mg PO DAILY 11/16/23 11/16/23 History fluvoxamine 50 mg tablet 50 mg PO QPM 11/16/23 11/16/23 History lorazepam 0.5 mg tablet (Ativan) 0.5 mg PO BID PRN Anxiety 11/16/23 11/16/23 History sodium hypochlorite 0.25 % 1 applic topical DIRECTED 11/16/23 11/16/23 History solution (Dakin's Solution) sodium hypochlorite 0.25 % 1 applic topical DIRECTED 11/16/23 11/16/23 History solution (Dakin's Solution) Patient History Medical History Retention of urine, unspecified Pressure ulcer of sacral region, stage 4 Obsessive compulsive disorder Muscle wasting and atrophy, not elsewhere classified, other site Acute kidney injury Swelling of right upper extremity Atrial flutter History of partial replacement of left hip joint using bipolar prosthesis (04/09/23) History of COVID-19 On home oxygen therapy Vitamin D deficiency Fluid retention Right sided sciatica Pneumonia AV fistula Atrial fibrillation and flutter Dizziness Generalized weakness Syncope PAF (paroxysmal atrial fibrillation) Atrial fibrillation, new onset Cardiac murmur Chronic kidney disease, stage 4 (severe) Anemia due to chronic kidney disease TRUMAN (obstructive sleep apnea) Obesity hypoventilation syndrome Nontoxic multinodular goiter Nocturnal hypoxia Nasal septal deviation Morbid obesity Mixed restrictive and obstructive lung disease Diastolic congestive heart failure Diabetic retinopathy, nonproliferative Diabetic peripheral neuropathy Claustrophobia Chronic rhinitis Arthralgia of multiple sites Anxiety and depression Chronic low back pain Hypothyroidism Hyperlipemia Hypertension Diabetes Surgical History History of incision and drainage (05/06/23) History of bilateral cataract extraction History of cardioversion Status post gastric bypass for obesity History of arthroscopy History of total shoulder replacement History of esophagogastroduodenoscopy (EGD) History of colonoscopy History of dermoid cyst excision S/P tooth extraction History of mandibular surgery H/O section Hx of cholecystectomy Family History Daughter Multiple allergies Bipolar disorder Aunt Breast cancer Mother Diabetes Heart disease Hyperthyroidism Hypertension Father Gastric cancer Hearing loss Myocardial infarction Grandfather Heart disease Family/Other Osteoporosis Lung cancer Hypertension Stroke Brother Hypertension Grandmother Ovarian cancer Sister Diabetes Migraine Other No family history of adverse response to anesthesia Denies family history of Prostate cancer Colorectal cancer Uterine cancer Social History Smoking Status: Never smoker Second Hand Exposure: No; Do You Dip or Chew Tobacco: No; Hx Alcohol Use: No Hx Substance Use: No (Unknown - Resident of [facility]) Preferred Language: Uzbek Communication Ability: Effective Visual Impairment: No Limitations Marketing Analytics Lead Required: No Beliefs That Will Affect Care: None marital status: Current Living Situation: Custodial Current Living Situation Comment: [facility] since 08/22/23 current occupational status: employed and unemployed Feels Safe at Home: Yes Safety Concerns: Feels Safe At This Time Childhood Exposure to Second-Hand Smoke: Yes Dental Care, Regularly: Yes Physical Activity Frequency: Does not Exercise Seatbelt Use: always Sunscreen Use: Yes Assistive Devices: Walker Review of Systems Constitutional: as per Subjective / HPI; no fever and no chills Musculoskeletal: as per Subjective / HPI Physical Exam Physical Exam: Wound located approximately 3 cm superior to gluteal crease- dressings saturated and removed. new 4 x 4 gauze with ABD placed. Unable to turn patient on her left hip to examine presence of other wounds. Left hip is well-healed. Constitutional: WD/WN, vitals as above Respiratory: normal respiratory effort; no respiratory distress and no labored breathing Psychiatric: A+Ox3, euthymic affect Results & Data Vital Signs (Past 12 Hours) Vital Signs Temp Pulse Pulse Resp BP Pulse Ox Pulse Ox 11/17/23 12:23 78 20 97 11/17/23 12:18 36.7 C 80 20 146/68 H 97 11/17/23 07:09 61 11/17/23 06:13 65 16 113/58 L 94 11/17/23 01:38 91 11/17/23 01:38 36.9 C 60 12 103/68 92 O2 Del Method O2 Del Method 11/17/23 12:23 Room Air 11/17/23 12:18 Room Air 11/17/23 07:09 11/17/23 06:13 Room Air 11/17/23 01:38 Room Air 11/17/23 01:38 Room Air PG Care Time/CCT Total # of Minutes Spent Total Time Spent with Patient: Total time spent is greater than 50% in coordination of care (as documented) at patient's floor/unit and/or counseling patient: Coding Level of Care Code 91361 INT INP/OBS CARE 2/55MIN Diagnoses Osteomyelitis of coccyx M46.28
--- NOTE | 2023-11-17 14:05 | XRay Report ---
XR hip LT min 2V CLINICAL HISTORY: hip pain TECHNIQUE: 2 views of the left hip and single frontal view of the pelvis were obtained. Comparison: Comparison is made to left hip radiograph 07/30/2023 and MRI left hip 08/13/[address] left hip 07/30/2023 FINDINGS: There is no evidence of an acute fracture. Total hip arthoplasty hardware is seen without perihardwar e lucency or hardware fracture. Soft tissue swelling is seen. IMPRESSION: No radiographic evidence of bony erosion is or acute fracture. Soft tissue swelling is again seen. ACT 112: Negative or not required by law. Electronically signed by: Farhan Higgins M.D. 11/17/2023 2:03 PM
[2023-11-17] MEDS ORDERED: Nursing to Pharmacy Communication SCH (17:15)
[2023-11-17] MEDS: HYDROmorphone INJ 0.5 MG/0.5 ML SYR IV PRN (18:07)
--- NOTE | 2023-11-17 19:26 | Billing Data ---
Date of Service November 17, 2023 Coding Level of Care Code 01512 INT INP/OBS CARE
[2023-11-17] MEDS ORDERED: traZODone HCL 100 MG TAB PO SCH (21:00)
[2023-11-17] MEDS: traZODone HCL 50 MG TAB PO SCH (21:38)
[2023-11-17] MEDS: DOCUSATE SODIUM 100 MG CAP PO SCH (21:38)
[2023-11-17] MEDS: HEPARIN SOD 5,000 UNIT/0.5 ML VIAL SQ SCH (21:39)
--- NOTE | 2023-11-18 05:43 | Electrocardiogram Report ---
Test Reason : Blood Pressure : / mmHG Vent. Rate : 076 BPM Atrial Rate : 000 BPM P-R Int : 000 ms QRS Dur : 092 ms QT Int : 342 ms P-R-T Axes : 000 -33 004 degrees QTc Int : 384 ms Atrial fibrillation Left axis deviation Low voltage QRS Cannot rule out Anterior infarct (cited on or before 29-JUL-2023) Abnormal ECG When compared with ECG of 29-JUL-2023 16:12, Atrial fibrillation has replaced Atrial flutter Questionable change in initial forces of Anterolateral leads Confirmed by Amaury Perry ([id number]) on 11/18/2023 5:43:15 AM Referred By: REFERRED SELF Confirmed By:Amaury Perry
[2023-11-18 06:37] LABS: Basophils # (auto) 0.02 K/uL (0.00-0.20); Basophils % (auto) 0.4 %; Eosinophils # (auto) 0.09 K/uL (0.00-0.50); Hemoglobin 8.8 g/dl (12.0-16.0); Immature Granulocytes # (auto) 0.01 K/uL (0.01-0.20); Immature Granulocytes % (auto) 0.2 %; Lymphocytes # (auto) 0.79 K/uL (1.20-3.40); Lymphocytes % (auto) 17.3 %; Mean Corpuscular Hemoglobin 25.9 pg (25.0-34.0); Mean Corpuscular Hgb Conc 31.4 g/dL (32.0-36.0); Mean Corpuscular Volume 82.4 fL (80.0-100.0); Mean Platelet Volume 11.6 fL (9.4-12.4); Monocytes # (auto) 0.27 K/uL (0.11-0.59); Monocytes % (auto) 5.9 %; Neutrophils # (auto) 3.38 K/uL (1.40-6.50); Neutrophils % (auto) 74.2 %; Platelet Count 84 K/uL (130-400); RDW Coefficient of Variation 17.9 % (11.5-14.5); RDW Standard Deviation 51.8 fL (36.4-46.3); White Blood Count 4.56 K/ul (4.8-10.8)
[2023-11-18 06:50] LABS: Anion Gap 6 (3-11); BUN Creatinine Ratio 38.1 (10-20); Blood Urea Nitrogen 67 mg/dl (6-23); Calcium 6.9 mg/dl (8.6-10.3); Carbon Dioxide 30 mmol/L (21-32); Chloride 110 mmol/L (98-107); Creatinine Clr Calc Pharmacy 40.4 ml/min; Est GFR (African American) 34.6 ml/min; Est GFR (Non-African American) 29.8 ml/min; Glucose 81 mg/dl (70-99(Fasting)); Potassium 3.5 mmol/L (3.5-5.1); Sodium 146 mmol/L (136-145)
[2023-11-18 07:06] LABS: Thyroid Stimulating Hormone 4.581 uIu/ml (0.300-4.500)
[2023-11-18 07:12] LABS: Ferritin 614.8 ng/ml (8-388)
[2023-11-18 07:14] LABS: Iron 27 mcg/dl (35-150); Transferrin < 95 mg/dl (200-360)
[2023-11-18 07:17] LABS: Folate (Folic Acid),Ser orPlas > 22.30 ng/ml (>5.38)
[2023-11-18 07:18] LABS: Vitamin B12 > 1500 pg/ml (180-914)
[2023-11-18 07:41] LABS: T4 Free Thyroxine 0.94 ng/dl (0.61-1.60)
[2023-11-18] MEDS: NEPHROCAPS PO SCH (08:24)
[2023-11-18] MEDS: oxyCODONE HCL IR 5 MG TAB (IMMEDIATE RELEASE) PO PRN (08:25)
--- NOTE | 2023-11-18 11:16 | Orthopedic Consultation ---
Date of Consultation November 18, 2023 Assessment & Plan (1) History of femur fracture: (2) Left hip pain: (3) History of partial replacement of left hip joint using bipolar prosthesis: Plan 1. Currently, no indication for orthopedic surgical intervention. No clinical or radiographic evidence for periprosthetic or superficial infection. 2. Recommend physical/occupational therapy to the left hip and left lower extremity. * Should include soft tissue modalities for left thigh/lateral hip/buttocks edema reduction/control. * Encourage left lower extremity and hip range of motion to facilitate improvement of edema. * Retrograde massage. * Mobilization for general conditioning. 3. Sacral decubitus ulcer care per general surgery and wound care teams. 4. Left hip and lower extremity WBAT and ROMAT. Utilize walker or cane as needed. I, Dr. Juan Jose New, saw and examined Jerri at bedside. She would not let me do much range of motion of her left hip. However, she said the hip pain is not new. She states that she has been having this hip pain since the fracture. Her is in the room and he confirms. She has not been ambulatory for the past 2 months. Her x-rays show no evidence of fracture or issues with the stem. Her x-rays are negative. Her sed rate is normal. At this point I do not see any operative indications. I agree with gentle physical therapy. If you have any further questions please feel free to contact me personally on my cell phone [phone]. History of Present Illness Reason for Consultation: left hip pain Requesting Physician: Latanya Diaz MD Attending Physician: Latanya Diaz MD History of Present Illness Patient is a 63-year-old female that is previously known to [facility] orthopedics for a fall with left hip displaced femoral neck fracture on 04/08/2023, for which Dr. Childress performed a left hip cemented bipolar hemiarthroplasty on 04/09/2024. She is now approximately 7.5 months postop. There was previously some concern over possibility of infection due to some postoperative drainage at the surgical site, but workup demonstrated no growth on final cultures. She also has a history of a left greater trochanteric fracture about 10 months prior to that, which was treated nonoperatively. She was previously ambulating with a walker or cane, but more recently she has been declining and ambulatory ability, and says that she was unable to walk more recently due to the pain. She presented from [facility] to the [facility] ED on 11/16/2023 for confusion, and she was noted to be medically complex with history of CHF, diabetes, A-fib, COPD, and hypertension. She was reportedly on the phone with her family and "speaking gibberish", and upon arrival to the ED, she was noted to be relatively oriented, but she was making some incorrect statements. She has a diagnosis of osteomyelitis of the coccyx and has been getting treated with a wound VAC for a chronic sacral decubitus ulcer that she says started after her hip surgery. Patient was admitted for further workup, and orthopedics was consulted due to ongoing left hip pain. Today, the patient notes that her pain is to the left lateral hip and greater trochanteric region, as well as down the anterior lateral lateral thigh to the lateral knee. She denies any left groin region pain. Movement of the leg in most any direction causes pain to this lateral area, but not to her groin. Patient admits to a history of back injections with [facility] pain management a number of years ago, for which she says were somewhat helpful. She had participated with therapy postoperatively, and she would be interested in further therapy as long as it is "not aggressive". Allergies Allergy/AdvReac Type Severity Reaction Status Date / Time Iodinated Contrast Media Allergy Unknown Unknown Verified 11/16/23 23:13 [Iodinated Contrast- Oral and IV Dye] promethazine AdvReac Intermediate BROKEN Verified 11/16/23 23:13 CAPILLARIES FACE Home Medications Medication Instructions Recorded Confirmed Type buspirone 15 mg tablet 15 mg PO BID 11/28/20 11/16/23 History lancets (OneTouch UltraSoft #400 ea 04/12/21 10/15/23 Rx Lancets) trazodone 100 mg tablet 100 mg PO HS 07/09/22 11/16/23 History cyanocobalamin (vitamin B-12) 2,500 mcg PO 2XWK 10/08/22 11/16/23 History 2,500 mcg tablet blood sugar diagnostic #300 ea 12/10/22 10/15/23 Rx atorvastatin 80 mg tablet 80 mg PO HS #90 tabs 12/24/22 11/16/23 Rx levothyroxine 50 mcg tablet 50 mcg PO DAILYBB #90 tabs 01/23/23 11/16/23 Rx insulin syringe-needle U-100 0.5 #400 ea 02/05/23 10/15/23 Rx mL 31 gauge x 5/16" (Easy Comfort Insulin Syringe) folic acid 1 mg tablet 1 mg PO QAM #90 tabs 02/22/23 11/16/23 Rx epoetin fernando-epbx 40,000 unit/mL 40,000 unit subcut UD 28 days #28 07/01/23 11/16/23 Rx injection solution (Retacrit) mL docusate sodium 100 mg capsule 100 mg PO QAM Constipation 07/04/23 11/16/23 History (Colace) fenofibrate 160 mg tablet 160 mg PO QAM 07/04/23 11/16/23 History pregabalin 75 mg capsule (Lyrica) 75 mg PO BID 07/04/23 11/16/23 History pantoprazole 40 mg tablet,delayed 40 mg PO BID #60 tabs 07/09/23 11/16/23 Rx release bumetanide 2 mg tablet 2 mg PO QAM 07/24/23 11/16/23 History metoprolol succinate 25 mg 25 mg PO DAILY #90 tabs 07/26/23 11/16/23 Rx tablet,extended release 24 hr apixaban 5 mg tablet (Eliquis) 5 mg PO BID #60 tabs 08/30/23 11/16/23 Rx acetaminophen 325 mg capsule 650 mg PO QID PRN Fever Or Pain 09/23/23 11/16/23 History (Tylenol) cholecalciferol (vitamin D3) 125 125 mcg PO DAILY 09/23/23 11/16/23 History mcg (5,000 unit) capsule diltiazem HCl 180 mg capsule,24 180 mg PO DAILY 09/23/23 11/16/23 History hr,extended release fluvoxamine 100 mg tablet 100 mg PO QPM 09/23/23 11/16/23 History fluvoxamine 50 mg tablet 50 mg PO BID 09/23/23 11/16/23 History loperamide 2 mg capsule 2 mg PO TID PRN Diarrhea 09/23/23 11/16/23 History (Anti-Diarrheal (loperamide)) multivitamin with iron 1 tab PO DAILY 09/23/23 11/16/23 History nystatin 100,000 unit/gram topical 1 applic topical DAILY PRN .flare 09/23/23 11/16/23 History powder ups ondansetron HCl 4 mg tablet 4 mg PO Q6H PRN nausea and vomiting 09/23/23 11/16/23 History oxycodone 5 mg capsule 5 mg PO Q6H PRN pain 09/23/23 11/16/23 History calcium carbonate (Calcium 600) 600 mg PO DAILY 11/16/23 11/16/23 History fluvoxamine 50 mg tablet 50 mg PO QPM 11/16/23 11/16/23 History lorazepam 0.5 mg tablet (Ativan) 0.5 mg PO BID PRN Anxiety 11/16/23 11/16/23 History sodium hypochlorite 0.25 % 1 applic topical DIRECTED 11/16/23 11/16/23 History solution (Dakin's Solution) sodium hypochlorite 0.25 % 1 applic topical DIRECTED 11/16/23 11/16/23 History solution (Dakin's Solution) Patient History Medical History Retention of urine, unspecified Pressure ulcer of sacral region, stage 4 Obsessive compulsive disorder Muscle wasting and atrophy, not elsewhere classified, other site Acute kidney injury Swelling of right upper extremity Atrial flutter History of partial replacement of left hip joint using bipolar prosthesis (04/09/23) History of COVID-19 On home oxygen therapy Vitamin D deficiency Fluid retention Right sided sciatica Pneumonia AV fistula Atrial fibrillation and flutter Dizziness Generalized weakness Syncope PAF (paroxysmal atrial fibrillation) Atrial fibrillation, new onset Cardiac murmur Chronic kidney disease, stage 4 (severe) Anemia due to chronic kidney disease TRUMAN (obstructive sleep apnea) Obesity hypoventilation syndrome Nontoxic multinodular goiter Nocturnal hypoxia Nasal septal deviation Morbid obesity Mixed restrictive and obstructive lung disease Diastolic congestive heart failure Diabetic retinopathy, nonproliferative Diabetic peripheral neuropathy Claustrophobia Chronic rhinitis Arthralgia of multiple sites Anxiety and depression Chronic low back pain Hypothyroidism Hyperlipemia Hypertension Diabetes Surgical History History of incision and drainage (05/06/23) History of bilateral cataract extraction History of cardioversion Status post gastric bypass for obesity History of arthroscopy History of total shoulder replacement History of esophagogastroduodenoscopy (EGD) History of colonoscopy History of dermoid cyst excision S/P tooth extraction History of mandibular surgery H/O section Hx of cholecystectomy Family History Daughter Multiple allergies Bipolar disorder Aunt Breast cancer Mother Diabetes Heart disease Hyperthyroidism Hypertension Father Gastric cancer Hearing loss Myocardial infarction Grandfather Heart disease Family/Other Osteoporosis Lung cancer Hypertension Stroke Brother Hypertension Grandmother Ovarian cancer Sister Diabetes Migraine Other No family history of adverse response to anesthesia Denies family history of Prostate cancer Colorectal cancer Uterine cancer Social History Smoking Status: Never smoker Second Hand Exposure: No; Do You Dip or Chew Tobacco: No; Hx Alcohol Use: No Hx Substance Use: No (Unknown - Resident of [facility]) Preferred Language: Bahraini Communication Ability: Effective Visual Impairment: No Limitations Rehabilitation Worker Required: No Beliefs That Will Affect Care: None marital status: Current Living Situation: Group Home Current Living Situation Comment: [facility] since 08/22/23 current occupational status: employed and unemployed Feels Safe at Home: Yes Childhood Exposure to Second-Hand Smoke: Yes Dental Care, Regularly: Yes Physical Activity Frequency: Does not Exercise Seatbelt Use: always Sunscreen Use: Yes Assistive Devices: Walker and Wheelchair Physical Exam Physical Exam: GENERAL: Speech and cognition is intact. Mood and affect is appropriate. Does not appear in acute distress. Appears deconditioned. HEAD: Normocephalic; atraumatic. CHEST: Regular chest respiration and excursion. NEURO: Awake, alert, and oriented x 3. Distal sensation of lower legs intact. LOWER EXTREMITIES: Ankle active dorsi/plantarflexion intact on left 1+ DP/PT pulses NVI distally calf soft/NT Musculoskeletal: Hip: + surgical incision (healed) and + limited ROM of hip; hip normal to inspection, no skin erythema and no ecchymosis + tender left lateral hip and lateral knee, and over anterior lateral and lateral thigh with brawny edema and spasm noted Does not actively engage the left hip or knee due to apprehension and guarding. Results & Data Vital Signs (Past 12 Hours) Vital Signs Temp Pulse Resp BP Pulse Ox O2 Del Method 11/18/23 08:30 Room Air 11/18/23 08:17 37.3 C 85 16 120/62 95 Room Air Diagnostic Findings Hip X-Ray 11/17/23 12:01 XR hip LT min 2V CLINICAL HISTORY: hip pain TECHNIQUE: 2 views of the left hip and single frontal view of the pelvis were obtained. Comparison: Comparison is made to left hip radiograph 07/30/2023 and MRI left hip 08/13/[address] left hip 07/30/2023 FINDINGS: There is no evidence of an acute fracture. Total hip arthoplasty hardware is seen without perihardware lucency or hardware fracture. Soft tissue swelling is seen. IMPRESSION: No radiographic evidence of bony erosion is or acute fracture. Soft tissue swelling is again seen. ACT 112: Negative or not required by law. Electronically signed by: Farhan Higgins M.D. 11/17/2023 2:03 PM
[2023-11-18] MEDS: fluvoxaMINE MALEATE 50 MG TAB PO SCH (12:45)
--- NOTE | 2023-11-18 13:01 | Surgery Progress Note ---
<Statement entered by Yasmany Langley DO - 11/18/23 13:38> I have seen and examined this patient with the surgical PA and I agree with this plan Date of Service November 18, 2023 Assessment & Plan (1) Sacral wound: Plan: Sacral wound evaluated in conjunction with the wound care team There is no tissue that requires any surgical debridement Recommend replacing wound vac and f/u in wound center We will sign off, please call with any questions/concerns Admission and Anticipated Discharge Date Admission Date: November 16, 2023 Subjective Patient doing okay. Reports she is no longer feeling confused. No complaints surrounding buttock wound at the time being. Physical Exam Physical Exam: awake, alert, no distress Gastrointestinal (Abdomen): + wound in sacrum region, no necrotic ti ssue requiring debridement, some serosang drainage, ~3-4cm open wound Results & Data Vital Signs (Past 12 Hours) Vital Signs Temp Pulse Resp BP Pulse Ox O2 Del Method 11/18/23 08:30 Room Air 11/18/23 08:17 99.1 F 85 16 120/62 95 Room Air PG Care Time/CCT Total # of Minutes Spent Total Time Spent with Patient: Total time spent is greater than 50% in coordination of care (as documented) at patient's floor/unit and/or counseling patient: Coding Level of Care Code 73289 SUB INP/OBS CARE 07/11MIN Diagnoses Sacral wound S31.000A
[2023-11-18] MEDS: ACETAMINOPHEN 325 MG TAB PO PRN (15:56)
--- NOTE | 2023-11-18 16:42 | Hospitalist Progress Note ---
Date of Service November 18, 2023 Assessment & Plan (1) Acute metabolic encephalopathy: Plan: 63 y/o with CKD-4 and multiple medical problems who was sent in to ED from nursing facility for psychiatric evaluation because of hallucinations and behavior change. Found to have medical not psychiatric reason for altered mental status and was evaluated for acute metabolic encephalopathy. Head CT without acute findings. Mentation was normal when I evaluated her late morning after admission though a little groggy. Completely normal 11/17. Acute metabolic encephalopathy - consistent with delirium. Unclear trigger but has resolved -unclear trigger - potential infection (see below), dehydration related to diarrhea, polypharmacy -on admission decreased trazodone, held buspar, held pregabalin, held baclofen, decreased PRN lorazepam to home dose 0.5 bid prn, judicious opioids -AOx4 today and irritable - added back these medications and fluvoxamine. If confused/sedated again after resuming would especially consider decreasing pregabalin because of her impaired renal clearance (2) Left hip pain: Plan: Left hip pain - severe x 6 weeks and no longer ambulatory or even sitting in wheelchair. Using a lift at facility x 1 month. Painful with minimal ROM. Evaluated during hospitalization in Jul 2023 and treated for hip wound SSTI but not thought to have prosthetic joint infection per last ID note: # L hip subcutaneous collection s/p aspiration 08/08 cx neg # L hip wound infection - L hip swab WCx + MSSA and skin lesly, L hip arthrocentesis + Corynebacterium and skin lesly (per ortho low suspicion for joint infection) # h/o L femur fracture s/p repair 04/09/23 # L knee effusion s/p arthrocentesis w/ removal of 25 mL clear, serous fluid on 08/06 (no studies sent) CRP only mildly elevated at 2.5 and ESR very low at 2. hip x-ray unrevealing, no fracture. Consulted ortho - rec'd gentle PT/OT (3) Sacral decubitus ulcer: Plan: Stage 4 sacral decubitus ulcer (present on admission) with underlying sacral osteomyelitis based on MRI of pelvis 11/14 (done at [facility], report reviewed) -present since fall of 2022. Had debridement 05/06/23. Has been on wound vac. -No evidence of acute wound infection. No fever/leukocytosis and wound is clean without evidence of SSTI -consulted general surgery - I discussed with Dr. Langley 11/16 - Based on exam decubitus does not appear acutely infected recommended ongoing wound care/wound VAC, CRP is 2.5 and ESR is 2 which argues against acute osteomyelitis or significant wound infection -would be a candidate for short course of IV abx for acute infection, however, I don't see evidence of sacral SSTI, she is in too poor of health and too malnourished to consider a flap which she would not be able to heal, so would not benefit from prolonged course of IV abx for the chronic osteomyelitis -consulted wound care nurse - vac replaced. Reviewed wound photos 11/17 (4) Diarrhea: Plan: Reports several days of diarrhea without abdominal pain, watery. Did have broad spectrum IV antibiotics in Jul 2023 at risk for CDI -Given IV fluids. If more diarrhea collect specimen for C. diff toxin and stool biofire -no diarrhea since admission (5) Chronic kidney disease, stage 4 (severe): Plan: CKD stage 4 - primary copywriter is Dr. Kang, Has AVF RUE +thrill -Cr is at baseline - unchanged 11/17 -avoid nephrotoxins, continue oral bumex Plan Extremely poor venous access - has one tiny LUE PIV. KVO rate. No targets for PICC. Anasarca and malnutrition - will significantly impair her wound healing History of gastric bypass. Labs as below -serum albumin <= 2. Consulted museum host/hostess pancytopenia CBC 11/16 was diluted sample, improved but persists 11/17. lymphopenia. Perhaps had viral gastroenteritis that resolved? she does have chronic thrombocytopenia ranges from moderate to normal platelet count. Also more anemic. Check labs for anemia and malnutrition: B12, B1, iron studies, folate. Also check TSH (last 1 year ago) -inflammatory block, probably iron deficient - start replacement po -B1 pending, B12 >1500, Folate>22 -TSH 4.5 normal T4 Chronic/past issues per chart review: TRUMAN intolerant of CPAP, mixed restrictive and obstructive lung disease HFpEF not in exacerbation History of afib/flutter Morbid obesity with BMI of 37 Hypertension Hypothyroidism ready for discharge back to her nursing facility Conditional code Admission and Anticipated Discharge Date Admission Date: November 16, 2023 Subjective Fully awake and alert today Wants her buspar and lyrica restarted and wants pain medications increased for her hip pain No more diarrhea Physical Exam 2 Physical Exam: PHYSICAL EXAMINATION Last 24h vital signs reviewed, see documentation in flowsheet General: comfortable appearing, no distress, chronically ill appearing and pale. awake and alert HEENT: Normocephalic, atraumatic, pupils round and equal, sclerae anicteric, no conjunctival injection, moist mucus membranes Lungs: Normal respiratory effort. Clear to auscultation bilaterally. No RRW Heart: Regular rate and rhythm, no murmurs. No JVD Abdomen: Soft, nontender, nondistended. Bowel sounds present. Extremities: Warm, dry, well-perfused. anasarca present with pitting edema around buttocks thighs hips and lower extremities Neuro: Alert and oriented x 4, face symmetric, moves 4 extremities well Psych: Normal affect and behavior, no hallucinations no confusion Results & Data Results & Data Vital Signs (Past 12 Hours) Vital Signs Temp Pulse Pulse Resp BP Pulse Ox O2 Del Method 11/18/23 15:08 36.6 C 72 18 118/71 95 Room Air 11/18/23 08:30 Room Air 11/18/23 08:17 37.3 C 85 16 120/62 95 Room Air Laboratory Results 11/18/23 05:34 11/18/23 05:34 PG Care Time/CCT Total # of Minutes Spent Total Time Spent with Patient: Total time spent is greater than 50% in coordination of care (as documented) at patient's floor/unit and/or counseling patient: Coding Level of Care Code 85634 SUB INP/OBS CARE 2/35MIN Diagnoses Acute metabolic encephalopathy G93.41 Left hip pain M25.552 Sacral decubitus ulcer L89.159 Diarrhea R19.7 Chronic kidney disease, stage 4 (severe) N18.4
[2023-11-18] MEDS: FERROUS SULFATE 325 MG TAB PO SCH (17:45)
[2023-11-18] MEDS: ATORVASTATIN 40 MG TAB PO SCH (20:39)
[2023-11-18] MEDS: DOCUSATE SODIUM 100 MG CAP PO SCH (21:35)
[2023-11-19] MEDS: LEVOTHYROXINE SODIUM 50 MCG TABLET PO SCH (05:42)
[2023-11-19] MEDS: ONDANSETRON 4 MG OD TAB PO PRN (05:42)
[2023-11-19] MEDS: SENNA 8.6 MG TAB PO SCH (08:58)
--- NOTE | 2023-11-19 12:32 | Infectious Disease Consult ---
Date of Consultation November 19, 2023 Assessment & Plan (1) Left hip pain: (2) History of femur fracture: (3) Osteomyelitis of coccyx: Plan 63yo F with h/o T2DM, afib, CKD, chronic sacral wound (last debrided 05/06/23), L femur fracture in Mar 2023 s/p repair with L hip cemented bipolar hemiarthroplasty 04/09/23, recent admission 07/29-08/22/23 with L hip drainage from incision site f/w L hip subcutaneous collection s/p aspiration and L hip wound infection (per ortho, low suspicion for joint infection, s/p 14d of abx with cefazolin) who presented from rehab on 11/15 with confusion and hallucinations. She had an MRI pelvis at [facility] on 11/14 which showed sacral OM. Here, she has been afebrile. No leukocytosis, Cr 1.90. AST 58. ESR 2, CRP 2.55. UA negative. CTH negative, XR left hip negative for fracture, soft tissue swelling seen. She received a dose of CTX, which was subsequently stopped. She has been seen by orthopedics for her left hip and they did not feel that she had a joint infection. Also seen by surgery for sacral ulcer and did not appear acutely infected and no intervention advised. ID consulted 11/18 for sacral OM. Regarding sacrum, no overlying cellulitis or evidence of soft tissue infection. No intervention advised per surgery. Adequate treatment of sacral OM, if present, requires surgical intervention since antibiotics alone are not sufficient for cure. Since surgery does not plan on an intervention, and there is also a question about whether OM is truly present, then I would not give her course of abx for osteomyelitis. There also is no evidence of soft tissue infection and therefore would not treat for such either. Regarding left hip, no overlying erythema. She has been seen by ortho and no c/f joint involvement. Defer further management of left hip pain to ortho and primary team. # MRI findings of sacral OM # Sacral ulcer without SSTI # Left hip pain # H/o left hip wound infection s/p treatment # h/o L femur fracture s/p repair 04/09/23 - will continue holding further abx - management of sacral ulcer per wound care and surgery ID will discontinue active follow up at this time. Please do not hesitate to reconsult the Infectious Diseases service as needed. Argenis Bosch MD [facility], Division of Infectious Diseases [facility]Connect: [phone] Consultation Information Consultation was provided via telemedicine using two-way real-time interactive telecommunication between the patient and the telemedicine provider. For the duration of the visit, the provider was performing the assessment from a different facility than the patient. This includesuse of bluetooth stethoscope forauscultationperformed by the telepresenter that the telemedicine provider can hear if described in the physical exam. Automatic Fabric [employer]utter contact information: Please call [facility] Connect Call Center [phone]. (Phone Number For Physician Use Only) After establishing a telemedicine visit, patient was: Patient was verified with two unique identifiers, Patient/authorized rep acknowledged consent and understanding and Gave permission to continue telehealth session Time Spent with Patient: Initial => 75 min History of Present Illness Reason for Consultation: coccyx OM Attending Physician: Brendan Grimes MD History of Present Illness 63yo F with h/o T2DM, afib, CKD, chronic sacral wound (last debrided 05/06/23, has had a wound vac), L femur fracture in Mar 2023 s/p repair with L hip cemented bipolar hemiarthroplasty 04/09/23, recent admission 07/29-08/22/23 with L hip drainage from incision site f/w L hip subcutaneous collection s/p aspiration and L hip wound infection (per ortho, low suspicion for joint infection, s/p 14d of abx with cefazolin) who presented from rehab on 11/15 with confusion and hallucinations. She had urinary frequency and watery diarrhea for about 5 days along with increasing left hip pain. She has also had a nonhealing sacral wound for months with a wound vac. She had an MRI pelvis at [facility] on 11/14 which showed sacral OM. Otherwise had denied fevers, chills, abdominal pain. Here, she has been afebrile. No leukocytosis, Cr 1.90. AST 58. ESR 2, CRP 2.55. UA negative. CTH negative, XR left hip negative for fracture, soft tissue swelling seen. She received a dose of CTX, which was subsequently stopped. She has been seen by orthopedics for her left hip and they did not feel that she had a joint infection. Also seen by surgery for sacral ulcer and did not appear acutely infected and no intervention advised. ID consulted 11/18 for sacral OM. On evaluation, patient reports that she has had left hip pain that has been o ngoing since her surgery. She doesnt feel like it has improved since her last admission. She also reports having had diarrhea and urinary frequency for 2 days but this is now resolved. No rashes. Allergies Allergy/AdvReac Type Severity Reaction Status Date / Time Iodinated Contrast Media Allergy Unknown Unknown Verified 11/16/23 23:13 [Iodinated Contrast- Oral and IV Dye] promethazine AdvReac Intermediate BROKEN Verified 11/16/23 23:13 CAPILLARIES FACE Home Medications Medication Instructions Recorded Confirmed Type buspirone 15 mg tablet 15 mg PO BID 11/28/20 11/16/23 History lancets (OneTouch UltraSoft #400 ea 04/12/21 10/15/23 Rx Lancets) trazodone 100 mg tablet 100 mg PO HS 07/09/22 11/16/23 History cyanocobalamin (vitamin B-12) 2,500 mcg PO 2XWK 10/08/22 11/16/23 History 2,500 mcg tablet blood sugar diagnostic #300 ea 12/10/22 10/15/23 Rx atorvastatin 80 mg tablet 80 mg PO HS #90 tabs 12/24/22 11/16/23 Rx levothyroxine 50 mcg tablet 50 mcg PO DAILYBB #90 tabs 01/23/23 11/16/23 Rx insulin syringe-needle U-100 0.5 #400 ea 02/05/23 10/15/23 Rx mL 31 gauge x 5/16" (Easy Comfort Insulin Syringe) folic acid 1 mg tablet 1 mg PO QAM #90 tabs 02/22/23 11/16/23 Rx epoetin fernando-epbx 40,000 unit/mL 40,000 unit subcut UD 28 days #28 07/01/23 11/16/23 Rx injection solution (Retacrit) mL docusate sodium 100 mg capsule 100 mg PO QAM Constipation 07/04/23 11/16/23 History (Colace) fenofibrate 160 mg tablet 160 mg PO QAM 07/04/23 11/16/23 History pregabalin 75 mg capsule (Lyrica) 75 mg PO BID 07/04/23 11/16/23 History pantoprazole 40 mg tablet,delayed 40 mg PO BID #60 tabs 07/09/23 11/16/23 Rx release bumetanide 2 mg tablet 2 mg PO QAM 07/24/23 11/16/23 History metoprolol succinate 25 mg 25 mg PO DAILY #90 tabs 07/26/23 11/16/23 Rx tablet,extended release 24 hr apixaban 5 mg tablet (Eliquis) 5 mg PO BID #60 tabs 08/30/23 11/16/23 Rx acetaminophen 325 mg capsule 650 mg PO QID PRN Fever Or Pain 09/23/23 11/16/23 History (Tylenol) cholecalciferol (vitamin D3) 125 125 mcg PO DAILY 09/23/23 11/16/23 History mcg (5,000 unit) capsule diltiazem HCl 180 mg capsule,24 180 mg PO DAILY 09/23/23 11/16/23 History hr,extended release fluvoxamine 100 mg tablet 100 mg PO QPM 09/23/23 11/16/23 History fluvoxamine 50 mg tablet 50 mg PO BID 09/23/23 11/16/23 History loperamide 2 mg capsule 2 mg PO TID PRN Diarrhea 09/23/23 11/16/23 History (Anti-Diarrheal (loperamide)) multivitamin with iron 1 tab PO DAILY 09/23/23 11/16/23 History nystatin 100,000 unit/gram topical 1 applic topical DAILY PRN .flare 09/23/23 11/16/23 History powder ups ondansetron HCl 4 mg tablet 4 mg PO Q6H PRN nausea and vomiting 09/23/23 11/16/23 History oxycodone 5 mg capsule 5 mg PO Q6H PRN pain 09/23/23 11/16/23 History calcium carbonate (Calcium 600) 600 mg PO DAILY 11/16/23 11/16/23 History fluvoxamine 50 mg tablet 50 mg PO QPM 11/16/23 11/16/23 History lorazepam 0.5 mg tablet (Ativan) 0.5 mg PO BID PRN Anxiety 11/16/23 11/16/23 History sodium hypochlorite 0.25 % 1 applic topical DIRECTED 11/16/23 11/16/23 History solution (Dakin's Solution) sodium hypochlorite 0.25 % 1 applic topical DIRECTED 11/16/23 11/16/23 History solution (Dakin's Solution) Patient History Medical History Retention of urine, unspecified Pressure ulcer of sacral region, stage 4 Obsessive compulsive disorder Muscle wasting and atrophy, not elsewhere classified, other site Acute kidney injury Swelling of right upper extremity Atrial flutter History of partial replacement of left hip joint using bipolar prosthesis (04/09/23) History of COVID-19 On home oxygen therapy Vitamin D deficiency Fluid retention Right sided sciatica Pneumonia AV fistula Atrial fibrillation and flutter Dizziness Generalized weakness Syncope PAF (paroxysmal atrial fibrillation) Atrial fibrillation, new onset Cardiac murmur Chronic kidney disease, stage 4 (severe) Anemia due to chronic kidney disease TRUMAN (obstructive sleep apnea) Obesity hypoventilation syndrome Nontoxic multinodular goiter Nocturnal hypoxia Nasal septal deviation Morbid obesity Mixed restrictive and obstructive lung disease Diastolic congestive heart failure Diabetic retinopathy, nonproliferative Diabetic peripheral neuropathy Claustrophobia Chronic rhinitis Arthralgia of multiple sites Anxiety and depression Chronic low back pain Hypothyroidism Hyperlipemia Hypertension Diabetes Surgical History History of incision and drainage (05/06/23) History of bilateral cataract extraction History of cardioversion Status post gastric bypass for obesity History of arthroscopy History of total shoulder replacement History of esophagogastroduodenoscopy (EGD) History of colonoscopy History of dermoid cyst excision S/P tooth extraction History of mandibular surgery H/O section Hx of cholecystectomy Family History Daughter Multiple allergies Bipolar disorder Aunt Breast cancer Mother Diabetes Heart disease Hyperthyroidism Hypertension Father Gastric cancer Hearing loss Myocardial infarction Grandfather Heart disease Family/Other Osteoporosis Lung cancer Hypertension Stroke Brother Hypertension Grandmother Ovarian cancer Sister Diabetes Migraine Other No family history of adverse response to anesthesia Denies family history of Prostate cancer Colorectal cancer Uterine cancer Social History Smoking Status: Never smoker Second Hand Exposure: No; Do You Dip or Chew Tobacco: No; Hx Alcohol Use: No Hx Substance Use: No (Unknown - [facility] Preferred Language: Upper Sorbian Communication Ability: Effective Visual Impairment: No Limitations Component Assembler Required: No Beliefs That Will Affect Care: None marital status: Current Living Situation: [facility] Current Living Situation Comment: [facility] since 08/22/23 current occupational status: employed and unemployed Feels Safe at Home: Yes Childhood Exposure to Second-Hand Smoke: Yes Dental Care, Regularly: Yes Physical Activity Frequency: Does not Exercise Seatbelt Use: always Sunscreen Use: Yes Assistive Devices: Walker and Wheelchair Review of System 10-point review of systems reviewed and are negative except for as above. Physical Exam Physical Exam: General: Awake, alert, no acute distress HEENT: NC/AT, EOMI, mmm Neck: supple Lungs: respirations non-labored Heart: nl peripheral perfusion Abdomen: soft, NT/ND Back: sacral area with chronic skin changes, open wound Ext: left hip with surgical scar, no erythema, wound vac in place with minimal drainage Skin: no rash Neuro: moving all extremities Results & Data Vital Signs (Past 12 Hours) Vital Signs Temp Pulse Resp BP Pulse Ox O2 Del Method 11/19/23 07:59 36.6 C 74 16 107/62 98 Room Air Laboratory Results Labs reviewed. Diagnostic Findings Imaging reviewed.
[2023-11-19] MEDS: CARBOHYDRATES FOR HYPOGLYCEMIA PO PRN (16:36)
--- NOTE | 2023-11-19 18:18 | Hospitalist Progress Note ---
Date of Service November 19, 2023 Assessment & Plan (1) Acute metabolic encephalopathy: Plan: By report had hallucinations and behavior change at SNF. CT head without acute findings. Sed rate/crp wnl. By 11/17 mental status was completely normal. Etiology uncertain. No specific infectious etiology found. Could be a nutritional deficiency - B1 def, etc. While awaiting B1 level place on empiric B1 supplementation. Consider MRI brain due to h/o PAF - I am uncertain if she is taking Eliquis chronically, but it is on home med list. Polypharmacy another possible etiology but there have been no changes in her meds recently by report. Continue to monitor. (2) Left hip pain: Plan: Left hip/thigh pain extending to near the left knee. Evaluated during hospitalization in Jul 2023 and treated for hip wound (NOT intra-articular or prosthetic joint). per last ID note: # L hip subcutaneous collection s/p aspiration 08/08 cx neg # L hip wound infection - L hip swab WCx + MSSA and skin lesly, L hip arthrocentesis + Corynebacterium and skin lesly (per ortho low suspicion for joint infection) # h/o L femur fracture s/p repair 04/09/23 # L knee effusion s/p arthrocentesis w/ removal of 25 mL clear, serous fluid on 08/06 CRP only mildly elevated at 2.5 and ESR very low at 2. Hip x-rays unremarkable with intact hardware, no lucencies, etc. Seen by [facility] - no specific Rx recommended other than PT, OT, and pain control. Etiology of pain? Neuropathic? Other? Prior imaging of l-spine with severe L5-S1 disc disease but her pain does not extend below the left knee making L5 or S1 neuropathy highly unlikely. Her pain is severe to the pain it is leaving her bed-bound. Will ask pain management to see in consult. Candidate for butrans patch or other long-acting med? To be complete will check a E venous doppler - r/o DVT. (3) Diarrhea: Plan: had such at 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 of note - u/a without significant proteinuria nutrition consult cont MVI (6) Osteomyelitis of coccyx: Plan: obtained MRI pelvis report completed 11/15/23 MRI showed "sacral decubitus ulcer + underlying osteomyelitis of coccyx" what argues against chronic osteomyelitis is that her sed rate and crp are very normal further, gen surgery has seen, and they report her sacral wound is much better in comparison to last fall when Dr Payne performed debridement it is possible that the bony findings on MRI is simply bony remodeling rather than true infection I corresponded with gen surg today - no plans for surgical intervention of the wound or the coccyx itself ID consult obtained today - they advise against any IV or PO abx therapy at this time as well cont wound vac appreciate wound care & gen surg assistance needs better nutrition (7) History of femur fracture: Plan: left hip - 03/2023 - s/p ORIF by Dr Eric Childress see #2 above (8) Pressure ulcer of sacral region, stage 4: Plan: present on admission started fall of 2022 s/p debridement 05/06/[address] Payne recent Rx - woundvac this admission - NO evidence of acute wound infection appreciate formal general surgery consult this admission they recommend ongoing wound care/wound VAC as noted above CRP only 2.5 and ESR is 2 which argues against acute osteomyelitis or significant wound infection see #6 above (9) Pancytopenia: Plan: etiology? TSH scantly elevated at 4.51 - this is NOT the cause has had SPEP/UPEP in the past - no significant m-spike seen on prior studies B12 wnl folate wnl check a copper & zinc level if she has underlying liver disease (THOMSON, etc) this could be driving her pancytopenia repeat CBC in am and go from there (10) Muscle wasting and atrophy, not elsewhere classified, other site: Plan: In 07/2023 CPK was mildly elevated recheck CPK am statistically the muscle atrophy would likely be to disuse but need to rule out a primary muscle disorder if CPK is still high consider neurology consultation Plan Other chronic issues: History of gastric bypass. Hypothyroidism - TSH this admission 4.51 - no change in synthroid dose. TRUMAN intolerant of CPAP, mixed restrictive and obstructive lung disease HFpEF - compensated/not in exacerbation History of afib/flutter - on chronic Eliquis? Morbid obesity with BMI of 37 Hypertension DVT proph - heparin 5000 BID (due to renal impairment) updated pt's by phone today extensively Admission and Anticipated Discharge Date Admission Date: November 16, 2023 Subjective patient's main complaints are as follows - 1. severe left hip & thigh pain - present ever since her initial surgery for left femur fracture (03/2023). At the longterm had been taking oxycodone 10mg tabs (or more) and it was reduced at some point to 5mg doses. The 5mg dose does little to alleviate her pain. The pain is sharp. Denies paresthesias. The pain radiates from the proximal lateral thigh down the side (and slightly the posterior) of the leg towards the knee. Straightening the leg does not bother the pain, but trying to flex the knee causes considerable pain. 2. unable to ambulate for 2+ months. 3. very poor appetite; "I'm just not hungry", and when she does eat she feels full very quickly. Has lost weight - was about 120kg about 1 year ago; now 105- 108kg. denies abd pain. 4. c/o swelling in her right upper arm - present for some time; denies pain. 5. neuropathy of b/l LEs. Denies pain of the feet, however. 6. she thinks her PPI is making her nauseous and that it makes her GERD worse?? Review of Systems Review of Systems: gen - poor appetite, weight loss; no fevers/chills cv - no orthopnea pulm - no dyspnea at rest GI - no abd pain Physical Exam Physical Exam: gen - morbidly obese, ashen color, but NAD neck - no JVD mouth - MMM, no thrush heart - RRR, s1 s2, no murmur lungs - CTA b/l abd - soft NT ND BS+ ext - left leg - old scar over proximal lateral thigh/hip region; no gross abnormality; flexion/extension of hip does not cause hip pain; no ankle edema; pulses 2+ b/l; right arm - ?lymphedema of upper arm - size of upper arm is about 2x's as large as left upper arm; +thrill over AV fistula distal right arm musculo - no gross abnormalities of left knee, but with flexion of left knee she has pain in the left thigh neuro - atrophy - severe - of b/l arms, legs Results & Data Results & Data Vital Signs (Past 12 Hours) Vital Signs Temp Pulse Resp BP Pulse Ox O2 Del Method 11/19/23 18:12 36.8 C 79 16 115/65 98 Room Air 11/19/23 07:59 36.6 C 74 16 107/62 98 Room Air Laboratory Results Laboratory Results - last 24 hr 11/19/23 11/19/23 11/19/23 07:38 11:19 16:31 POC Glucose 96 73 59 L* 11/19/23 11/19/23 11/19/23 16:34 16:50 20:09 POC Glucose 62 L* 94 98 PG Care Time/CCT Total # of Minutes Spent Total Time Spent with Patient: Total time spent is greater than 50% in coordination of care (as documented) at patient's floor/unit and/or counseling patient: Coding Level of Care Code 27774 SUB INP/OBS CARE 3/50MIN Diagnoses Acute metabolic encephalopathy G93.41 Left hip pain M25.552 Diarrhea R19.7 Chronic kidney disease, stage 4 (severe) N18.4 Severe protein-calorie malnutrition E43 Osteomyelitis of coccyx M46.28 History of femur fracture Z87.81 Pressure ulcer of sacral region, stage 4 L89.154 Pancytopenia D61.818 Muscle wasting and atrophy, not elsewhere classified, other site M62.58
[2023-11-19] MEDS: THIAMINE HCL 200 MG in SODIUM CHLORIDE 0.9% 50 ML IV SCH (23:09)
[2023-11-19] MEDS: FAMOTIDINE 20 MG TAB PO SCH (23:10)
--- NOTE | 2023-11-20 06:41 | Ultrasound Report ---
ULTRASOUND RIGHT UPPER EXTREMITY VENOUS CLINICAL HISTORY: Right upper extremity edema. COMPARISON STUDY: Right upper extremity venous ultrasound dated 06/14/2023. TECHNIQUE: Real-time, grayscale, and color Doppler sonography of the deep veins of the right upper ex tremity is performed. Compression and augmentation were utilized. FINDINGS: There is no sonographic evidence of deep venous thrombosis identified in the right upper ex tremity. The right internal jugular, axillary, and brachial veins are patent and normally compressibl e. Normal venous waveforms and augmentation are seen within the right subclavian vein. The cephalic a nd basilic veins are clear. The visualized radial and ulnar veins are patent. Soft tissue edema is no christiano in the right upper extremity. A fistula in the forearm between the radial artery and basilic vein appears patent. IMPRESSION: There is no sonographic evidence of deep venous thrombosis identified in the right upper extremity. ACT 112: Negative or not required by law. Electronically signed by: Bryn Jose M.D. 11/20/2023 6:40 AM
--- NOTE | 2023-11-20 06:49 | Ultrasound Report ---
ULTRASOUND LEFT LOWER EXTREMITY VENOUS CLINICAL HISTORY: Left thigh pain. COMPARISON STUDY: Bilateral lower extremity venous ultrasound dated 10/30/2022. TECHNIQUE: Real-time, grayscale, and color Doppler sonography of the deep veins of the left lower ext remity was performed from the inguinal crease to the calf. Compression and augmentation were utilized . FINDINGS: There is no sonographic evidence of deep venous thrombosis identified in the left lower ext remity. The common femoral, superficial femoral, and popliteal veins are patent and normally compress ible. The greater saphenous vein and the profunda femoris vein at the junction with the common femora l vein are clear. The visualized calf veins are patent. IMPRESSION: There is no sonographic evidence of deep venous thrombosis identified in the left lower e xtremity. ACT 112: Negative or not required by law. Electronically signed by: Bryn Jose M.D. 11/20/2023 6:48 AM
[2023-11-20 09:22] LABS: BUN Creatinine Ratio 34.1 (10-20); Creatinine Clr Calc Pharmacy 42.5 ml/min; Est GFR (African American) 36.8 ml/min; Est GFR (Non-African American) 31.8 ml/min; Potassium 3.7 mmol/L (3.5-5.1)
[2023-11-20 09:24] LABS: Hematocrit (blood only) 31.4 % (37.0-47.0); Hemoglobin 9.7 g/dl (12.0-16.0); Mean Corpuscular Hemoglobin 25.9 pg (25.0-34.0); Mean Corpuscular Hgb Conc 30.9 g/dL (32.0-36.0); Mean Corpuscular Volume 83.7 fL (80.0-100.0); Platelet Count 81 K/uL (130-400); RDW Coefficient of Variation 17.9 % (11.5-14.5); RDW Standard Deviation 53.5 fL (36.4-46.3); Red Blood Count 3.75 M/uL (4.20-5.40); White Blood Count 4.96 K/ul (4.8-10.8)
[2023-11-20] MEDS: MULTI VIT W/MINERALS LIQUID 15 ML UDC PO SCH (09:32)
[2023-11-20 09:56] LABS: Estimated Average Glucose 103 mg/dl; Hemoglobin A1C 5.2 % (4.5-5.6)
[2023-11-20] MEDS: SODIUM CHLORIDE 0.9% 1,000 ML IV SCH (13:19)
[2023-11-20] MEDS: LORazepam 0.5 MG in SYRINGE 0.25 ML IV ONE (16:40)
--- NOTE | 2023-11-20 18:57 | Magnetic Resonance Report ---
MR brain wo con HISTORY: 63 years-old Female inability to walk, muscle wasting; eval CVA, etc acute blurry vision wi th strokelike symptoms COMPARISON: Head CT 11/16/2023 TECHNIQUE: Multiplanar multisequence MRI of the brain was obtained without IV contrast. FINDINGS: No restricted diffusion. Midline structures appear unremarkable. Partially empty sella. No acute intr acranial hemorrhage, midline shift, abnormal extra-axial collection, hydrocephalus or intra-axial mas s. The volume and signal characteristics of the brain parenchyma are within normal limits for patient age. Minimal T2/FLAIR hyperintense foci throughout the white matter likely represent chronic microva scular ischemic disease. Cerebral venous sinuses and major arterial flow voids appear patent. Skull, orbits and soft tissues a re unremarkable. Trace left and moderate right mastoid effusions. Prior bilateral injury.. Mucosal th ickening of the sphenoid sinuses. IMPRESSION: No acute intracranial abnormality. No acute or subacute infarct. ACT 112: Negative or not required by law. The above report was generated using voice recognition software. It may contain grammatical, syntax o r spelling errors. Electronically signed by: Timothy Tracy M.D. 11/20/2023 6:55 PM
--- NOTE | 2023-11-20 20:43 | Hospitalist Progress Note ---
Date of Service November 20, 2023 Assessment & Plan (1) Acute metabolic encephalopathy: Plan: By report had hallucinations and behavior change at SNF. CT head without acute findings. Sed rate/crp wnl. By 11/17 mental status was completely normal. Etiology uncertain. No specific infectious etiology found. Could be a nutritional deficiency - B1 def, etc. While awaiting B1 level placed on empiric B1 supplementation. Polypharmacy another possible etiology but there have been no changes in her meds recently by report. Will obtain MRI brain - r/o subacute CVA, etc. (2) Left hip pain: Plan: Left hip/thigh pain extending to near the left knee. Evaluated during hospitalization in Jul 2023 and treated for hip wound (NOT intra-articular or prosthetic joint). per last ID note: # L hip subcutaneous collection s/p aspiration 08/08 cx neg # L hip wound infection - L hip swab WCx + MSSA and skin lesly, L hip arthrocentesis + Corynebacterium and skin lesly (per ortho low suspicion for joint infection) # h/o L femur fracture s/p repair 04/09/23 # L knee effusion s/p arthrocentesis w/ removal of 25 mL clear, serous fluid on 08/06 CRP only mildly elevated at 2.5 and ESR very low at 2. Hip x-rays unremarkable with intact hardware, no lucencies, etc. Seen by [facility] - no specific Rx recommended other than PT, OT, and pain control. Etiology of pain? Neuropathic? Other? Prior imaging of l-spine with severe L5-S1 disc disease but her pain does not extend below the left knee making L5 or S1 neuropathy highly unlikely. Her pain is severe to the pain it is leaving her bed-bound. Will ask pain management to see in consult. Candidate for butrans patch or other long-acting med? To be complete checked a LLE venous doppler - NO DVT seen. (3) Diarrhea: Plan: had such at SNF but no diarrhea since watch for recurrence (4) Chronic kidney disease, stage 4 (severe): Plan: CKD stage 4 - primary finishing room operator is Dr. 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 of note - u/a without significant proteinuria nutrition consult cont MVI check liver u/s - r/o cirrhosis (6) Osteomyelitis of coccyx: Plan: obtained MRI pelvis report completed 11/15/23 MRI showed "sacral decubitus ulcer + underlying osteomyelitis of coccyx" what argues against chronic osteomyelitis is that her sed rate and crp are very normal further, gen surgery has seen, and they report her sacral wound is much better in comparison to last fall when Dr Payne performed debridement it is possible that the bony findings on MRI is simply bony remodeling rather than true infection I corresponded with gen surg - no plans for surgical intervention of the wound or the coccyx itself ID consult obtained - they advise against any IV or PO abx therapy at this time as well cont wound vac appreciate wound care & gen surg assistance needs better nutrition (7) History of femur fracture: Plan: left hip - 03/2023 - s/p ORIF by Dr Eric Childress see #2 above (8) Pressure ulcer of sacral region, stage 4: Plan: present on admission started fall s/p debridement 05/06/[address] Payne recent Rx - woundvac this admission - NO evidence of acute wound infection appreciate formal general surgery consult this admission they recommend ongoing wound care/wound VAC as noted above CRP only 2.5 and ESR is 2 which argues against acute osteomyelitis or significant wound infection see #6 above (9) Pancytopenia: Plan: etiology? TSH scantly elevated at 4.51 - this is NOT the cause has had SPEP/UPEP in the past - no significant m-spike seen on prior studies B12 wnl folate wnl checked a copper & zinc level - pending if she has underlying liver disease (THOMSON, etc) this could be driving her pancytopenia repeat CBC acceptable (10) Muscle wasting and atrophy, not elsewhere classified, other site: Plan: In 07/2023 CPK was mildly elevated CPK today still mildly high will check aldolase hold statin send PKN-VTn-Wrfmggtxn inhibitor Ab consider rheum or neuro consult statistically the muscle atrophy would likely be to disuse but need to rule out a primary muscle disorder could be diabetic polyneuropathy contributing Plan Other chronic issues: History of gastric bypass. Hypothyroidism - TSH this admission 4.51 - no change in synthroid dose. TRUMAN intolerant of CPAP, mixed restrictive and obstructive lung disease HFpEF - compensated/not in exacerbation History of afib/flutter - on chronic Eliquis? Morbid obesity with BMI of 37 Hypertension DVT proph - heparin 5000 BID (due to renal impairment) updated pt's by phone yesterday extensively Admission and Anticipated Discharge Date Admission Date: November 16, 2023 Subjective no new events overnight did eat a bit more than yesterday no N/V or abd pain weakness and pain in LLE is same we discussed getting MRI brain due to difficulty walking - needs sedation meds for such Review of Systems Review of Systems: CV - no orthopnea or pain pulm - no dyspnea Physical Exam Physical Exam: gen - morbidly obese, NAD, laying comfortably in bed neck - no JVD mouth - MMM, no thrush heart - RRR, s1 s2, no murmur lungs - CTA b/l abd - soft NT ND BS+ neuro - atrophy - severe - of b/l arms, legs; distal strength (handgrip, dorsi-flexion/plantar-flexion of ankles) 5/5 b/l; prox strength shoulders & hips - minimal weakness of shoulders, severe weakness of hip flexion b/l psych - a/o x 3 Results & Data Results & Data Vital Signs (Past 12 Hours) Vital Signs Temp Pulse Resp BP Pulse Ox O2 Del Method 11/20/23 19:50 36.9 C 85 14 141/79 H 90 Room Air 11/20/23 16:58 Room Air 11/20/23 15:16 36.7 C 86 16 127/58 L 90 Room Air 11/20/23 09:36 91 H 143/75 H Laboratory Results Laboratory Results - last 24 hr 11/20/23 11/20/23 11/20/23 07:18 08:42 11:28 WBC 4.96 RBC 3.75 L Hgb 9.7 L Hct 31.4 L MCV 83.7 MCH 25.9 MCHC 30.9 L RDW Std Deviation 53.5 H RDW Coeff of Chantal 17.9 H Plt Count 81 L Sodium 143 Potassium 3.7 Chloride 107 Carbon Dioxide 31 Anion Gap 5 BUN 57 H Creatinine 1.67 H Est Cr Clr Drug Dosing 42.5 Est GFR ( Amer) 36.8 Est GFR (Non-Af Amer) 31.8 BUN/Creatinine Ratio 34.1 H Glucose 111 H POC Glucose 97 119 H Estimat Average Glucose 103 Hemoglobin A1c 5.2 Calcium 7.0 L Total Creatine Kinase 226 H Cortisol AM Sample 15.58 Serum Copper Pending Zinc Pending 11/20/23 11/20/23 16:30 20:30 WBC RBC Hgb Hct MCV MCH MCHC RDW Std Deviation RDW Coeff of Chantal Plt Count Sodium Potassium Chloride Carbon Dioxide Anion Gap BUN Creatinine Est Cr Clr Drug Dosing Est GFR ( Amer) Est GFR (Non-Af Amer) BUN/Creatinine Ratio Glucose POC Glucose 157 H 178 H Estimat Average Glucose Hemoglobin A1c Calcium Total Creatine Kinase Cortisol AM Sample Serum Copper Zinc Diagnostic Findings Venous Doppler Study 11/19/23 18:12 ULTRASOUND LEFT LOWER EXTREMITY VENOUS CLINICAL HISTORY: Left thigh pain. COMPARISON STUDY: Bilateral lower extremity venous ultrasound dated 10/30/2022. TECHNIQUE: Real-time, grayscale, and color Doppler sonography of the deep veins of the left lower extremity was performed from the inguinal crease to the calf. Compression and augmentation were utilized. FINDINGS: There is no sonographic evidence of deep venous thrombosis identified in the left lower extremity. The common femoral, superficial femoral, and popliteal veins are patent and normally compressible. The greater saphenous vein and the profunda femoris vein at the junction with the common femoral vein are clear. The visualized calf veins are patent. IMPRESSION: There is no sonographic evidence of deep venous thrombosis identified in the left lower extremity. ACT 112: Negative or not required by law. Electronically signed by: Bryn Jose M.D. 11/20/2023 6:48 AM Venous Doppler Study 11/19/23 18:12 ULTRASOUND RIGHT UPPER EXTREMITY VENOUS CLINICAL HISTORY: Right upper extremity edema. COMPARISON STUDY: Right upper extremity venous ultrasound dated 06/14/2023. TECHNIQUE: Real-time, grayscale, and color Doppler sonography of the deep veins of the right upper extremity is performed. Compression and augmentation were utilized. FINDINGS: There is no sonographic evidence of deep venous thrombosis identified in the right upper extremity. The right internal jugular, axillary, and brachial veins are patent and normally compressible. Normal venous waveforms and augmentation are seen within the right subclavian vein. The cephalic and basilic veins are clear. The visualized radial and ulnar veins are patent. Soft tissue edema is noted in the right upper extremity. A fistula in the forearm between the radial artery and basilic vein appears patent. IMPRESSION: There is no sonographic evidence of deep venous thrombosis identified in the right upper extremity. ACT 112: Negative or not required by law. Electronically signed by: Bryn Jose M.D. 11/20/2023 6:40 AM PG Care Time/CCT Total # of Minutes Spent Total Time Spent with Patient: Total time spent is greater than 50% in coordination of care (as documented) at patient's floor/unit and/or counseling patient: Coding Level of Care Code 80578 SUB INP/OBS CARE 3/50MIN Diagnoses Acute metabolic encephalopathy G93.41 Left hip pain M25.552 Diarrhea R19.7 Chronic kidney disease, stage 4 (severe) N18.4 Severe protein-calorie malnutrition E43 Osteomyelitis of coccyx M46.28 History of femur fracture Z87.81 Pressure ulcer of sacral region, stage 4 L89.154 Pancytopenia D61.818 Muscle wasting and atrophy, not elsewhere classified, other site M62.58
--- NOTE | 2023-11-21 07:09 | Ultrasound Report ---
ABDOMINAL ULTRASOUND, RIGHT UPPER QUADRANT HISTORY: Acute right upper quadrant abdominal pain with possible chronic liver disease cirrhosis?. COMPARISON: Renal ultrasound 06/10/2022, CT abdomen and pelvis 12/01/2020 FINDINGS: Pancreas: The pancreas demonstrates a normal echotexture. Liver: Heterogeneous hepatic parenchyma with marginal nodularity. No hepatic mass identified. Trace p erihepatic ascites. Gallbladder: Cholecystectomy. CBD: 0.6 cm. Right kidney: No hydronephrosis. IMPRESSION: 1. Cirrhosis without hepatic mass identified. 2. Trace perihepatic ascites. 3. Cholecystectomy. ACT 112: Negative or not required by law. Electronically signed by: Timothy Tracy M.D. 11/21/2023 7:08 AM
--- NOTE | 2023-11-21 10:46 | Pain Management Consultation ---
Date of Consultation November 21, 2023 Assessment & Plan (1) History of femur fracture: (2) Left hip pain: (3) History of partial replacement of left hip joint using bipolar prosthesis: Plan 1. Currently, no indication for pain management procedural intervention. 2. Recommend physical/occupational therapy to the left hip and left lower extremity, start gentle and progress as tolerated. * Should include soft tissue modalities for left thigh/lateral hip/buttocks edema reduction/control. * Encourage left lower extremity and hip range of motion to facilitate improvement of edema. * Retrograde massage. * Mobilization for general conditioning. 3. Sacral decubitus ulcer care per general surgery and wound care teams. 4. No changes to pain related medication regimen -- continue Lyrica, baclofen, acetaminophen, oxycodone, and Dilaudid as ordered. 5. Do not recommend Butrans patch in this medically complex patient. Pain management service will sign off at this time. History of Present Illness Reason for Consultation: chronic LLE pain Requesting Physician: Brendan Grimes MD Attending Physician: Brendan Grimes MD Pain Assessment Full Body Front + Back: 2 1. 2. 3. Allergies Allergy/AdvReac Type Severity Reaction Status Date / Time Iodinated Contrast Media Allergy Unknown Unknown Verified 11/16/23 23:13 [Iodinated Contrast- Oral and IV Dye] promethazine AdvReac Intermediate BROKEN Verified 11/16/23 23:13 CAPILLARIES FACE Home Medications Medication Instructions Recorded Confirmed Type buspirone 15 mg tablet 15 mg PO BID 11/28/20 11/16/23 History lancets (OneTouch UltraSoft #400 ea 04/12/21 10/15/23 Rx Lancets) trazodone 100 mg tablet 100 mg PO HS 07/09/22 11/16/23 History cyanocobalamin (vitamin B-12) 2,500 mcg PO 2XWK 10/08/22 11/16/23 History 2,500 mcg tablet blood sugar diagnostic #300 ea 12/10/22 10/15/23 Rx atorvastatin 80 mg tablet 80 mg PO HS #90 tabs 12/24/22 11/16/23 Rx levothyroxine 50 mcg tablet 50 mcg PO DAILYBB #90 tabs 01/23/23 11/16/23 Rx insulin syringe-needle U-100 0.5 #400 ea 02/05/23 10/15/23 Rx mL 31 gauge x 5/16" (Easy Comfort Insulin Syringe) folic acid 1 mg tablet 1 mg PO QAM #90 tabs 02/22/23 11/16/23 Rx epoetin fernando-epbx 40,000 unit/mL 40,000 unit subcut UD 28 days #28 07/01/23 11/16/23 Rx injection solution (Retacrit) mL docusate sodium 100 mg capsule 100 mg PO QAM Constipation 07/04/23 11/16/23 History (Colace) fenofibrate 160 mg tablet 160 mg PO QAM 07/04/23 11/16/23 History pregabalin 75 mg capsule (Lyrica) 75 mg PO BID 07/04/23 11/16/23 History pantoprazole 40 mg tablet,delayed 40 mg PO BID #60 tabs 07/09/23 11/16/23 Rx release bumetanide 2 mg tablet 2 mg PO QAM 07/24/23 11/16/23 History metoprolol succinate 25 mg 25 mg PO DAILY #90 tabs 07/26/23 11/16/23 Rx tablet,extended release 24 hr apixaban 5 mg tablet (Eliquis) 5 mg PO BID #60 tabs 08/30/23 11/16/23 Rx acetaminophen 325 mg capsule 650 mg PO QID PRN Fever Or Pain 09/23/23 11/16/23 History (Tylenol) cholecalciferol (vitamin D3) 125 125 mcg PO DAILY 09/23/23 11/16/23 History mcg (5,000 unit) capsule diltiazem HCl 180 mg capsule,24 180 mg PO DAILY 09/23/23 11/16/23 History hr,extended release fluvoxamine 100 mg tablet 100 mg PO QPM 09/23/23 11/16/23 History fluvoxamine 50 mg tablet 50 mg PO BID 09/23/23 11/16/23 History loperamide 2 mg capsule 2 mg PO TID PRN Diarrhea 09/23/23 11/16/23 History (Anti-Diarrheal (loperamide)) multivitamin with iron 1 tab PO DAILY 09/23/23 11/16/23 History nystatin 100,000 unit/gram topical 1 applic topical DAILY PRN .flare 09/23/23 11/16/23 History powder ups ondansetron HCl 4 mg tablet 4 mg PO Q6H PRN nausea and vomiting 09/23/23 11/16/23 History oxycodone 5 mg capsule 5 mg PO Q6H PRN pain 09/23/23 11/16/23 History calcium carbonate (Calcium 600) 600 mg PO DAILY 11/16/23 11/16/23 History fluvoxamine 50 mg tablet 50 mg PO QPM 11/16/23 11/16/23 History lorazepam 0.5 mg tablet (Ativan) 0.5 mg PO BID PRN Anxiety 11/16/23 11/16/23 History sodium hypochlorite 0.25 % 1 applic topical DIRECTED 11/16/23 11/16/23 History solution (Dakin's Solution) sodium hypochlorite 0.25 % 1 applic topical DIRECTED 11/16/23 11/16/23 History solution (Dakin's Solution) Pain History Chief Complaint Chief Complaint: "left hip pain since surgery" Patient History Medical History Retention of urine, unspecified Pressure ulcer of sacral region, stage 4 Obsessive compulsive disorder Muscle wasting and atrophy, not elsewhere classified, other site Acute kidney injury Swelling of right upper extremity Atrial flutter History of partial replacement of left hip joint using bipolar prosthesis (04/09/23) History of COVID-19 On home oxygen therapy Vitamin D deficiency Fluid retention Right sided sciatica Pneumonia AV fistula Atrial fibrillation and flutter Dizziness Generalized weakness Syncope PAF (paroxysmal atrial fibrillation) Atrial fibrillation, new onset Cardiac murmur Chronic kidney disease, stage 4 (severe) Anemia due to chronic kidney disease TRUMAN (obstructive sleep apnea) Obesity hypoventilation syndrome Nontoxic multinodular goiter Nocturnal hypoxia Nasal septal deviation Morbid obesity Mixed restrictive and obstructive lung disease Diastolic congestive heart failure Diabetic retinopathy, nonproliferative Diabetic peripheral neuropathy Claustrophobia Chronic rhinitis Arthralgia of multiple sites Anxiety and depression Chronic low back pain Hypothyroidism Hyperlipemia Hypertension Diabetes Surgical History History of incision and drainage (05/06/23) History of bilateral cataract extraction History of cardioversion Status post gastric bypass for obesity History of arthroscopy History of total shoulder replacement History of esophagogastroduodenoscopy (EGD) History of colonoscopy History of dermoid cyst excision S/P tooth extraction History of mandibular surgery H/O section Hx of cholecystectomy Family History Daughter Multiple allergies Bipolar disorder Aunt Breast cancer Mother Diabetes Heart disease Hyperthyroidism Hypertension Father Gastric cancer Hearing loss Myocardial infarction Grandfather Heart disease Family/Other Osteoporosis Lung cancer Hypertension Stroke Brother Hypertension Grandmother Ovarian cancer Sister Diabetes Migraine Other No family history of adverse response to anesthesia Denies family history of Prostate cancer Colorectal cancer Uterine cancer Social History Smoking Status: Never smoker Second Hand Exposure: No; Do You Dip or Chew Tobacco: No; Hx Alcohol Use: No Hx Substance Use: No (Unknown - [facility]) Preferred Language: Bahamian Communication Ability: Effective Visual Impairment: No Limitations Returning Officer Required: No Beliefs That Will Affect Care: None marital status: Current Living Situation: [facility] Current Living Situation Comment: [facility] since 08/22/23 current occupational status: employed and unemployed Feels Safe at Home: Yes Childhood Exposure to Second-Hand Smoke: Yes Dental Care, Regularly: Yes Physical Activity Frequency: Does not Exercise Seatbelt Use: always Sunscreen Use: Yes Assistive Devices: Walker and Wheelchair Physical Exam 2 Physical Exam: GENERAL: Speech and cognition is intact. Mood and affect is appropriate. Does not appear in acute distress. Appears deconditioned. HEAD: Normocephalic; atraumatic. CHEST: Regular chest respiration and excursion. NEURO: Awake, alert, and oriented x 3. Distal sensation of lower legs intact. LOWER EXTREMITIES: Ankle active dorsi/plantarflexion intact on left 1+ DP/PT pulses NVI distally calf soft/NT Musculoskeletal: Hip: + surgical incision (healed) and + limited ROM of hip; hip normal to inspection, no skin erythema and no ecchymosis gluteal and thigh musculature is tense/hard to palpation with diffuse atrophy noted
--- NOTE | 2023-11-21 11:18 | Hospitalist Progress Note ---
Date of Service November 21, 2023 Assessment & Plan (1) Muscle wasting and atrophy, not elsewhere classified, other site: Plan: In 07/2023 CPK was mildly elevated ([id number]) CPK mildly high earlier this week (226) Repeat CPK today is normal range aldolase sent hold statin sent MHJ-DYa-Lecfzdoki inhibitor Ab sed rate/crp wnl -- reassuring, but doesn't rule out a primary muscle d/o MRI brain negative discussed her care informally with Dr Segun Martínez from rheumatology today will check myositis specific 11 Ab panel tomorrow am we discussed getting an MRI of the femur to look for muscle inflammation will get the left femur since that is where all of her pain is statistically the muscle atrophy would likely be to disuse but need to rule out a primary muscle disorder as noted above could be diabetic polyneuropathy contributing as well - has seen neuro in the past for this consider formal neuro eval while here will likely need outpatient EMG and/or muscle bx -- the latter especially if MRI femur is abnormal (2) Acute metabolic encephalopathy: Plan: By report had hallucinations and behavior change at SNF. CT head without acute findings. Sed rate/crp wnl. By 11/17 mental status was completely normal. MRI brain negative - no acute/subacute CVA or other abnormalities. Etiology uncertain. No specific infectious etiology found. Could be a nutritional deficiency - B1 def, etc. While awaiting B1 level placed on empiric B1 supplementation. Polypharmacy another possible etiology but there have been no changes in her meds recently by report. (3) Left hip pain: Plan: Left hip/thigh pain extending to near the left knee. Evaluated during hospitalization in Jul 2023 and treated for hip wound (NOT intra-articular or prosthetic joint). per last ID note: # L hip subcutaneous collection s/p aspiration 08/08 cx neg # L hip wound infection - L hip swab WCx + MSSA and skin lesly, L hip arthrocentesis + Corynebacterium and skin lesly (per ortho low suspicion for joint infection) # h/o L femur fracture s/p repair 04/09/23 # L knee effusion s/p arthrocentesis w/ removal of 25 mL clear, serous fluid on 08/06 CRP only mildly elevated at 2.5 and ESR very low at 2. Hip x-rays unremarkable with intact hardware, no lucencies, etc. Seen by [facility] - no specific Rx recommended other than PT, OT, and pain control. Etiology of pain? Neuropathic? Other? Prior imaging of l-spine with severe L5-S1 disc disease but her pain does not extend below the left knee making L5 or S1 neuropathy highly unlikely. Her pain is severe to the pain it is leaving her bed-bound. Appreciate pain management consult -- no specific Rx advised. Checked a LLE venous doppler - NO DVT seen. Obtaining MRI left femur as noted in #1. (4) Diarrhea: Plan: had such at [facility] but no diarrhea since (5) Chronic kidney disease, stage 4 (severe): Plan: CKD stage 4 - primary watch assembly instructor is Dr. Kang - [facility] Has AVF RUE Cr stable mid to upper 1's BMP am (6) Severe protein-calorie malnutrition: Plan: at least 12 to as much as 15/16 kg of weight loss in the last year albumin has been <2 since fall 2022 very poor oral intake chronically at [facility] - it is true anorexia some of the low albumin likely due to cirrhosis but doesn't explain all of it check labs - B1, zinc, copper - all pending checked a cortisol level - wnl empiric thiamine while awaiting B1 level of note - u/a without significant proteinuria nutrition consult cont MVI (7) Osteomyelitis of coccyx: Plan: obtained MRI pelvis report completed 11/15/23 MRI showed "sacral decubitus ulcer + underlying osteomyelitis of coccyx" what argues against chronic osteomyelitis is that her sed rate and crp are very normal further, gen surgery has seen, and they report her sacral wound is much better in comparison to last fall when Dr Payne performed debridement it is possible that the bony findings on MRI is simply bony remodeling rather than true infection I corresponded with gen surg - no plans for surgical intervention of the wound or the coccyx itself ID consult obtained - they advise against any IV or PO abx therapy at this time as well cont wound vac appreciate wound care & gen surg assistance needs better nutrition (8) History of femur fracture: Plan: left hip - 03/2023 - s/p ORIF by Dr Eric Childress see above (9) Pressure ulcer of sacral region, stage 4: Plan: present on admission started fall of 2022 s/p debridement 05/06/[address] Payne recent Rx - woundvac this admission - NO evidence of acute wound infection appreciate formal general surgery consult this admission they recommend ongoing wound care/wound VAC as noted above CRP only 2.5 and ESR is 2 which argues against acute osteomyelitis or significant wound infection see above (10) Pancytopenia: Plan: possibly related to cirrhosis as liver u/s does confirm cirrhosis. TSH scantly elevated at 4.51 - this is NOT the cause has had SPEP/UPEP in the past - no significant m-spike seen on prior studies B12 wnl folate wnl checked a copper & zinc level - pending cell lines are mildly low but stable will recheck cbc in am for stability will also have pathology do a formal peripheral smear (11) Cirrhosis: Plan: likely due to THOMSON compensated cont bumex ammonia wnl Plan Other chronic issues: History of gastric bypass. Consider EGD due to persistent nausea. Hypothyroidism - TSH this admission 4.51 - no change in synthroid dose. TRUMAN intolerant of CPAP, mixed restrictive and obstructive lung disease HFpEF - compensated/not in exacerbation History of afib/flutter - on chronic Eliquis? -- will resume since no procedures are planned. Morbid obesity with BMI of 37 Hypertension DVT proph - heparin 5000 BID (due to renal impairment) updated pt's by phone extensively mid-week care d/w Dr Martínez, rheum, informally Admission and Anticipated Discharge Date Admission Date: November 16, 2023 Subjective patient was having nausea this am refused breakfast & meds because of such was sleepy per nursing I saw the patient late am she was awake/alert c/o left hip & thigh pain again she confirmed she declined her meds this am due to nausea willing to take them now she asked about her liver u/s no new issues overnight we discussed her normal MRI brain Review of Systems Review of Systems: cv - no cp, asks about her edema; no orthopnea pulm - no dyspnea at rest GI - no pain, but nauseous; no vomiting - no dysuria psych - denies major depression Physical Exam Physical Exam: gen - morbidly obese, NAD, laying comfortably in bed; looks same as yesterday neck - no JVD mouth - MMM heart - RRR, s1 s2, no murmur lungs - CTA b/l abd - soft NT ND BS+ neuro - atrophy - severe - of b/l arms and legs (except RUE biceps/triceps area -- edema); ongoing severe weakness of hip flexion b/l psych - a/o x 3 ext - trace edema, pulses feet 2+ b/l Results & Data Results & Data Vital Signs (Past 12 Hours) Vital Signs Temp Pulse Pulse Resp BP Pulse Ox O2 Del Method 11/21/23 09:28 82 20 132/79 94 Room Air 11/21/23 07:31 36.9 C 83 16 117/74 93 Room Air Laboratory Results Laboratory Results - last 24 hr 11/20/23 11/20/23 11/20/23 11:28 16:30 20:30 POC Glucose 119 H 157 H 178 H Total Creatine Kinase Aldolase 5-TA-5-Methylglutar CoA Miscellaneous Test 11/21/23 11/21/23 06:00 07:37 POC Glucose 112 H Total Creatine Kinase 164 Aldolase Pending 3-VZ-2-Methylglutar CoA Pending Miscellaneous Test Cancelled PG Care Time/CCT Total # of Minutes Spent Total Time Spent with Patient: Total time spent is greater than 50% in coordination of care (as documented) at patient's floor/unit and/or counseling patient: Coding Level of Care Code 21479 SUB INP/OBS CARE 3/50MIN Diagnoses Muscle wasting and atrophy, not elsewhere classified, other site M62.58 Acute metabolic encephalopathy G93.41 Left hip pain M25.552 Diarrhea R19.7 Chronic kidney disease, stage 4 (severe) N18.4 Severe protein-calorie malnutrition E43 Osteomyelitis of coccyx M46.28 History of femur fracture Z87.81 Pressure ulcer of sacral region, stage 4 L89.154 Pancytopenia D61.818 Cirrhosis K74.60
[2023-11-22] MEDS: LORazepam 0.5 MG in SYRINGE 0.25 ML IV ONE (02:05)
[2023-11-22 08:34] LABS: BUN Creatinine Ratio 38.9 (10-20); Calcium 7.4 mg/dl (8.6-10.3); Creatinine Clr Calc Pharmacy 49.3 ml/min; Est GFR (African American) 44.1 ml/min; Potassium 3.8 mmol/L (3.5-5.1)
[2023-11-22 08:54] LABS: Hematocrit (blood only) 32.2 % (37.0-47.0); Mean Corpuscular Hgb Conc 31.1 g/dL (32.0-36.0); Mean Corpuscular Volume 83.9 fL (80.0-100.0); Mean Platelet Volume 12.8 fL (9.4-12.4); Platelet Count 126 K/uL (130-400); RDW Coefficient of Variation 17.8 % (11.5-14.5); Red Blood Count 3.84 M/uL (4.20-5.40); White Blood Count 4.16 K/ul (4.8-10.8)
[2023-11-22 09:31] LABS: Basophils # (auto) 0.01 K/uL (0.00-0.20); Basophils % (auto) 0.2 %; Eosinophils # (auto) 0.09 K/uL (0.00-0.50); Eosinophils % (auto) 2.2 %; Immature Granulocytes # (auto) 0.05 K/uL (0.01-0.20); Immature Granulocytes % (auto) 1.2 %; Lymphocytes # (auto) 1.14 K/uL (1.20-3.40); Lymphocytes % (auto) 27.4 %; Monocytes # (auto) 0.33 K/uL (0.11-0.59); Monocytes % (auto) 7.9 %; Neutrophils # (auto) 2.54 K/uL (1.40-6.50); Neutrophils % (auto) 61.1 %; RBC Morphology Unremarkable
--- NOTE | 2023-11-22 09:58 | Neurology Consultation ---
Date of Consultation November 22, 2023 Assessment & Plan (1) Muscle wasting and atrophy, not elsewhere classified, other site: History of Present Illness Attending Physician: Brendan Grimes MD History of Present Illness pt consulted for progressive left leg weakness and muscle atrophy after her fall back in mar 2023 and s/p left hip surgery. she still has left hip wound vac and dressing and she has severe chronic pain in her hip and left leg so she is essentially bed written due to pain. she is not able to participate much therapy due to pain issues. she has been also malnourished due to not eating much and lost significant weight. she has no problem moving rt leg and there is no atrophy on rt leg. CK mild elevation. mri brain negative. adminssion HPI: Patient brought in from [facility] for confusion and hallucinations. In the ED patient is reportedly speaking incorrect/nonsensical things. Work up limited by ability to obtain IV access. CT Head without acute bleed. Upon my interview patient is speaking coherently and accurately. Remember both short term and fpc information without difficulty. Patient with urinary frequency and watery diarrhea starting about 5 days prior. She also started having increased left hip pain around that time. Patient has been stating for days that she needs to go to the ED. She has been concerned about her left hip wound and believes she has an infection, but her concerns were not taken seriously. Patient was 302-ed by her family and initially brought to the [facility]. Patient then identified as a medical patient and moved to . Patient has had a non-healing wound for months. Currently on wound vac. Was seen outpatient 11/13 and had an MRI the following day to evaluate for osteomyelitis. The results have not been reviewed with her at this time. The patient denies any fevers, chills, CP, nausea, abdominal pain, pain with urination, or calf pain. Patient does note that she was having increased work of breathing and was initially on oxygen when she arrived to the ED. SOB has resolved. Able to obtain MRI 11/14 which shows signs of osteomyelitis of the coccyx. Allergies Allergy/AdvReac Type Severity Reaction Status Date / Time Iodinated Contrast Media Allergy Unknown Unknown Verified 11/16/23 23:13 [Iodinated Contrast- Oral and IV Dye] promethazine AdvReac Intermediate BROKEN Verified 11/16/23 23:13 CAPILLARIES FACE Home Medications Medication Instructions Recorded Confirmed Type buspirone 15 mg tablet 15 mg PO BID 11/28/20 11/16/23 History lancets (OneTouch UltraSoft #400 ea 04/12/21 10/15/23 Rx Lancets) trazodone 100 mg tablet 100 mg PO HS 07/09/22 11/16/23 History cyanocobalamin (vitamin B-12) 2,500 mcg PO 2XWK 10/08/22 11/16/23 History 2,500 mcg tablet blood sugar diagnostic #300 ea 12/10/22 10/15/23 Rx atorvastatin 80 mg tablet 80 mg PO HS #90 tabs 12/24/22 11/16/23 Rx levothyroxine 50 mcg tablet 50 mcg PO DAILYBB #90 tabs 01/23/23 11/16/23 Rx insulin syringe-needle U-100 0.5 #400 ea 02/05/23 10/15/23 Rx mL 31 gauge x 5/16" (Easy Comfort Insulin Syringe) folic acid 1 mg tablet 1 mg PO QAM #90 tabs 02/22/23 11/16/23 Rx epoetin fernando-epbx 40,000 unit/mL 40,000 unit subcut UD 28 days #28 07/01/23 11/16/23 Rx injection solution (Retacrit) mL docusate sodium 100 mg capsule 100 mg PO QAM Constipation 07/04/23 11/16/23 History (Colace) fenofibrate 160 mg tablet 160 mg PO QAM 07/04/23 11/16/23 History pregabalin 75 mg capsule (Lyrica) 75 mg PO BID 07/04/23 11/16/23 History pantoprazole 40 mg tablet,delayed 40 mg PO BID #60 tabs 07/09/23 11/16/23 Rx release bumetanide 2 mg tablet 2 mg PO QAM 07/24/23 11/16/23 History metoprolol succinate 25 mg 25 mg PO DAILY #90 tabs 07/26/23 11/16/23 Rx tablet,extended release 24 hr apixaban 5 mg tablet (Eliquis) 5 mg PO BID #60 tabs 08/30/23 11/16/23 Rx acetaminophen 325 mg capsule 650 mg PO QID PRN Fever Or Pain 09/23/23 11/16/23 History (Tylenol) cholecalciferol (vitamin D3) 125 125 mcg PO DAILY 09/23/23 11/16/23 History mcg (5,000 unit) capsule diltiazem HCl 180 mg capsule,24 180 mg PO DAILY 09/23/23 11/16/23 History hr,extended release fluvoxamine 100 mg tablet 100 mg PO QPM 09/23/23 11/16/23 History fluvoxamine 50 mg tablet 50 mg PO BID 09/23/23 11/16/23 History loperamide 2 mg capsule 2 mg PO TID PRN Diarrhea 09/23/23 11/16/23 History (Anti-Diarrheal (loperamide)) multivitamin with iron 1 tab PO DAILY 09/23/23 11/16/23 History nystatin 100,000 unit/gram topical 1 applic topical DAILY PRN .flare 09/23/23 11/16/23 History powder ups ondansetron HCl 4 mg tablet 4 mg PO Q6H PRN nausea and vomiting 09/23/23 11/16/23 History oxycodone 5 mg capsule 5 mg PO Q6H PRN pain 09/23/23 11/16/23 History calcium carbonate (Calcium 600) 600 mg PO DAILY 11/16/23 11/16/23 History fluvoxamine 50 mg tablet 50 mg PO QPM 11/16/23 11/16/23 History lorazepam 0.5 mg tablet (Ativan) 0.5 mg PO BID PRN Anxiety 11/16/23 11/16/23 History sodium hypochlorite 0.25 % 1 applic topical DIRECTED 11/16/23 11/16/23 History solution (Dakin's Solution) sodium hypochlorite 0.25 % 1 applic topical DIRECTED 11/16/23 11/16/23 History solution (Dakin's Solution) Patient History Medical History Retention of urine, unspecified Pressure ulcer of sacral region, stage 4 Obsessive compulsive disorder Muscle wasting and atrophy, not elsewhere classified, other site Acute kidney injury Swelling of right upper extremity Atrial flutter History of partial replacement of left hip joint using bipolar prosthesis (04/09/23) History of COVID-19 On home oxygen therapy Vitamin D deficiency Fluid retention Right sided sciatica Pneumonia AV fistula Atrial fibrillation and flutter Dizziness Generalized weakness Syncope PAF (paroxysmal atrial fibrillation) Atrial fibrillation, new onset Cardiac murmur Chronic kidney disease, stage 4 (severe) Anemia due to chronic kidney disease TRUMAN (obstructive sleep apnea) Obesity hypoventilation syndrome Nontoxic multinodular goiter Nocturnal hypoxia Nasal septal deviation Morbid obesity Mixed restrictive and obstructive lung disease Diastolic congestive heart failure Diabetic retinopathy, nonproliferative Diabetic peripheral neuropathy Claustrophobia Chronic rhinitis Arthralgia of multiple sites Anxiety and depression Chronic low back pain Hypothyroidism Hyperlipemia Hypertension Diabetes Surgical History History of incision and drainage (05/06/23) History of bilateral cataract extraction History of cardioversion Status post gastric bypass for obesity History of arthroscopy History of total shoulder replacement History of esophagogastroduodenoscopy (EGD) History of colonoscopy History of dermoid cyst excision S/P tooth extraction History of mandibular surgery H/O section Hx of cholecystectomy Family History Daughter Multiple allergies Bipolar disorder Aunt Breast cancer Mother Diabetes Heart disease Hyperthyroidism Hypertension Father Gastric cancer Hearing loss Myocardial infarction Grandfather Heart disease Family/Other Osteoporosis Lung cancer Hypertension Stroke Brother Hypertension Grandmother Ovarian cancer Sister Diabetes Migraine Other No family history of adverse response to anesthesia Denies family history of Prostate cancer Colorectal cancer Uterine cancer Social History Smoking Status: Never smoker Second Hand Exposure: No; Do You Dip or Chew Tobacco: No; Hx Alcohol Use: No Hx Substance Use: No (Unknown - [facility]) Preferred Language: Polish Communication Ability: Effective Visual Impairment: No Limitations Supervising Bailiff Required: No Beliefs That Will Affect Care: None marital status: Current Living Situation: Alf Current Living Situation Comment: Shahnaz Wallace since 08/22/23 current occupational status: employed and unemployed Feels Safe at Home: Yes Childhood Exposure to Second-Hand Smoke: Yes Dental Care, Regularly: Yes Physical Activity Frequency: Does not Exercise Seatbelt Use: always Sunscreen Use: Yes Assistive Devices: Walker and Wheelchair Exam (Neuro) Physical Exam: Neuro: Mental: AOx4, fluent speech, normal comprehension, no apraxia, no L/R confusion, no neglect CN: PERRL, Full EOM, symmetric face, midline T/U/P, grossly full ROM neck Motor: No abnormal movements, RLE: 5-/5 t/o diffusly with normal muscle mass without atrophy. LLE: can't move much at all due to severe left hip pain, able to briefly do dorsiflexion/plantaflexion with 3/5 grossly. marked atrophy of calf muscles and thigh muscles. Sens: intact to touch b/l grossly b/l lower ext. Coord: intact upper limbs. DTR: unable to test due to pain in her legs she can't tolerate it. Impression: 63 yo female with s/p left hip fx and surgery in Mar 2023 with now left leg paresis with muscle atrophy. It is likely that due to her severe chronic pain in her left hip, and perhaps her hip fx injury/post-surgical changes limiting her left leg movement resulting in decondition and may be lumbosacral plexopathy from swelling/edema/scarring in her hip (as noted on mri hip). I do not feel she has myopathy/intrinsic muscle disorder causing left leg weakness/atrophy as her rt leg is normal. Recommendations: pain control so she can participate in therapy and get out of bed. will defer to rheumatology for further work up as needed if they desires. She is not able to tolerate EMG at this point due to pain and i am not sure if this will provide change in management. May be get EMG as outpt when her pain is better controlled and able to tolerate the procedure. In my opinion, first priority is to rehab and recondition her left leg with pain control. please call again if new question. Chart reviewed I have spent more than 50% educating patient about potential diagnosis and neurological evaluation and coordinating care with patient's treatment team. Total time spent (including chart review and coordination of care): 60 min (this includes chart review). Results & Data Vital Signs (Past 12 Hours) Vital Signs Temp Pulse Resp BP Pulse Ox O2 Del Method 11/22/23 07:48 36.8 C 89 16 130/78 95 Room Air PG Care Time/CCT Total # of Minutes Spent Total Time Spent with Patient: Total time spent is greater than 50% in coordination of care (as documented) at patient's floor/unit and/or counseling patient: Coding Level of Care Code 50556 IN/OBS CONSULT LVL 4,60M Diagnoses Muscle wasting and atrophy, not elsewhere classified, other site M62.58
[2023-11-22] MEDS: BACLOFEN 10 MG TAB PO PRN (10:31)
[2023-11-22] MEDS: LORazepam 0.5 MG in SYRINGE 0.25 ML IV STA (12:46)
--- NOTE | 2023-11-22 14:45 | Magnetic Resonance Report ---
MR femur LT wo con HISTORY: Left thigh pain. h/o infected seromas; hip/thigh pain; elevated CPK TECHNIQUE: Multiplanar multisequence MRI of the left femur was performed without contrast. COMPARISON STUDY: Left hip radiograph 11/17/2023. Left hip MRI 08/07/2023. FINDINGS: There is again noted a left total arthroplasty. This results in metallic artifact within th e left hip and proximal left femur resulting in suboptimal evaluation. There is normal marrow signal intensity seen within the distal left femur. No definite acute fracture or dislocation within the lef t femur. There is diffuse subcutaneous edema within the left thigh. There is significant fatty atroph y of the left pelvic and left thigh musculature most pronounced within the hamstring muscles. There i s associated edema left pelvic and thigh musculature. There is a focal fluid collection posterior to the proximal left femur best seen on axial image 18 and sagittal image 24. This measures approximatel y 7.6 x 4.5 x 1.7 cm. This is deep to the incision site at the left hip. This is adjacent to but does not clearly abut the posterior proximal femur. This is indeterminate and could represent a postopera tive seroma. This is similar to the prior study. Secondary infection would be difficult to exclude. T here is a small left knee effusion. There is a full-thickness tear at the proximal attachment of the hamstring tendon complex which demonstrates approximately 7 cm of retraction. The torn and retracted hamstring tendon complexes best seen on axial image 30 of 44. IMPRESSION: 1. Suboptimal evaluation of the left hip and proximal left femur due to the artifact from the left hi p prosthesis. 2. There is a focal fluid collection posterior to the proximal left femur which measures approximatel y 7.6 x 4.5 x 1.7 cm. This is deep to the incision site at the left hip. This is adjacent to but does not clearly abut the posterior proximal femur. This is indeterminate and could represent a postopera tive seroma. This is similar to the prior study. Secondary infection would be difficult to exclude. 3. Severe atrophy and edema within the majority of the left pelvic and thigh musculature most pronoun sherman at the hamstring muscles with associated edema. This favors denervation injury. A nonspecific jacki sitis is not excluded but considered less likely. 4. Extensive subcutaneous edema within the left hip/thigh. 5. Small left knee effusion. 6. There is a full-thickness tear at the proximal attachment of the hamstring tendon complex which de monstrates approximately 7 cm of retraction. ACT 112: Negative or not required by law. Electronically signed by: Kj Zimmer M.D. 11/22/2023 2:43 PM
--- NOTE | 2023-11-22 19:51 | Hospitalist Progress Note ---
Date of Service November 22, 2023 Assessment & Plan (1) Muscle wasting and atrophy, not elsewhere classified, other site: Plan: In 07/2023 CPK was mildly elevated (range: 473-753) CPK mildly high earlier this week (226) aldolase sent holding statin --> sent INT-WIt-Lyxmvlnsk inhibitor Ab sed rate/crp wnl -- reassuring, but doesn't rule out a primary muscle d/o MRI brain negative discussed her care informally with Dr Segun Martínez from rheumatology checked myositis specific 11 Ab panel MRI left femur obtained - multiple findings, but "Severe atrophy and edema within the majority of the left pelvic and thigh musculature most pronounced at the hamstring muscles with associated edema. This favors denervation injury. A nonspecific myositis is not excluded but considered less likely" could be diabetic polyneuropathy contributing as well - has seen neuro in the past for this appreciate neuro eval today - outpatient EMG advised (2) Acute metabolic encephalopathy: Plan: resolved By report had hallucinations and behavior change at SNF. CT head without acute findings. Sed rate/crp wnl. By 11/17 mental status was completely normal. MRI brain negative - no acute/subacute CVA or other abnormalities. Etiology uncertain. No specific infectious etiology found. Could be a nutritional deficiency - B1 def, etc. While awaiting B1 level placed on empiric B1 supplementation. Polypharmacy another possible etiology but there have been no changes in her meds recently by report. (3) Left hip pain: Plan: Left hip/thigh pain extending to near the left knee. Evaluated during hospitalization in Jul 2023 and treated for hip wound (NOT intra-articular or prosthetic joint). per last ID note: # L hip subcutaneous collection s/p aspiration 08/08 cx neg # L hip wound infection - L hip swab WCx + MSSA and skin lesly, L hip arthrocentesis + Corynebacterium and skin lesly (per ortho low suspicion for joint infection) # h/o L femur fracture s/p repair 04/09/23 # L knee effusion s/p arthrocentesis w/ removal of 25 mL clear, serous fluid on 08/06 CRP only mildly elevated at 2.5 and ESR very low at 2. Hip x-rays unremarkable with intact hardware, no lucencies, etc. Seen by [facility] - no specific Rx recommended other than PT, OT, and pain control. Etiology of pain? Neuropathic? Other? Prior imaging of l-spine with severe L5-S1 disc disease but her pain does not extend below the left knee making L5 or S1 neuropathy highly unlikely. Her pain is severe to the pain it is leaving her bed-bound. Appreciate pain management consult -- no specific Rx advised. Checked a LLE venous doppler - NO DVT seen. MRI left femur with fluid collection present --> spoke with David Craven from - I/D will occur Saturday am, 11/26/23 made patient aware (4) Diarrhea: Plan: had such at [facility] but no diarrhea since (5) Chronic kidney disease, stage 4 (severe): Plan: CKD stage 4 - primary spray gun striper is Dr. Kang - [facility] [place] Nephrology Has AVF RUE Cr very stable mid to upper 1's (6) Severe protein-calorie malnutrition: Plan: at least 12 to as much as 15/16 kg of weight loss in the last year albumin has been <2 since fall 2022 very poor oral intake chronically at [facility] - it is true anorexia some of the low albumin likely due to cirrhosis but doesn't explain all of it check labs - B1, zinc, copper - all pending checked a cortisol level - wnl empiric thiamine while awaiting B1 level of note - u/a without significant proteinuria nutrition consult cont MVI (7) Osteomyelitis of coccyx: Plan: obtained MRI pelvis report completed 11/15/23 MRI showed "sacral decubitus ulcer + underlying osteomyelitis of coccyx" what argues against chronic osteomyelitis is that her sed rate and crp are very normal further, gen surgery has seen, and they report her sacral wound is much better in comparison to last fall when Dr Payne performed debridement it is possible that the bony findings on MRI is simply bony remodeling rather than true infection I corresponded with gen surg - no plans for surgical intervention of the wound or the coccyx itself ID consult obtained - they advise against any IV or PO abx therapy at this time as well cont wound vac appreciate wound care & gen surg assistance needs better nutrition (8) History of femur fracture: Plan: left hip - 03/2023 - s/p ORIF by Dr Eric Childress see above (9) Pressure ulcer of sacral region, stage 4: Plan: present on admission started fall of 2022 s/p debridement 05/06/[address] Payne recent Rx - woundvac this admission - NO evidence of acute wound infection appreciate formal general surgery consult this admission they recommend ongoing wound care/wound VAC as noted above CRP only 2.5 and ESR is 2 which argues against acute osteomyelitis or significant wound infection see above (10) Pancytopenia: Plan: possibly related to cirrhosis as liver u/s does confirm cirrhosis. TSH scantly elevated at 4.51 - this is NOT the cause has had SPEP/UPEP in the past - no significant m-spike seen on prior studies B12 wnl folate wnl checked a copper & zinc level - pending cell lines are mildly low but stable CBC today stable peripheral smear done today -- no evidence of myelodysplasia (11) Cirrhosis: Plan: likely due to THOMSON compensated cont bumex ammonia wnl Plan Other chronic issues: History of gastric bypass. Consider EGD due to persistent nausea. Hypothyroidism - TSH this admission 4.51 - no change in synthroid dose. TRUMAN intolerant of CPAP, mixed restrictive and obstructive lung disease HFpEF - compensated/not in exacerbation History of afib/flutter - on chronic Eliquis? -- will resume since no procedures are planned. Morbid obesity with BMI of 37 Hypertension DVT proph - heparin 5000 BID (due to renal impairment) updated pt's by phone extensively mid-week and again tonight - 15 minute phone call, all questions answered appreciate neurology eval Admission and Anticipated Discharge Date Admission Date: November 16, 2023 Subjective no major events today we discussed in detail her L femur MRI results discussed that there is a seroma present; Dr Childress advising draining such to ensure no abscess continues with left thigh pain - lateral and posterior states she cannot use fentanyl patch - had significant side effects from such has been on oxycodone for several years denies any new issues Review of Systems Review of Systems: cv - no chest pain; no orthopnea pulm - no dyspnea at rest GI - no abd pain or N/V today Physical Exam Physical Exam: gen - morbidly obese, NAD, laying comfortably in bed neck - no JVD mouth - MMM heart - RRR, s1 s2, no murmur lungs - CTA b/l abd - soft NT ND BS+ neuro - atrophy of b/l arms and legs (except RUE biceps/triceps area -- edematous) psych - a/o x 3 ext - trace edema, pulses feet 2+ b/l musculo - tender to palpation over lateral left thigh Results & Data Results & Data Vital Signs (Past 12 Hours) Vital Signs Temp Pulse Pulse Resp BP Pulse Ox O2 Del Method 11/22/23 15:14 36.3 C L 78 16 125/76 92 Room Air 11/22/23 09:40 86 18 134/82 97 Room Air Laboratory Results Laboratory Results - last 24 hr 11/21/23 11/22/23 11/22/23 20:32 07:48 07:57 WBC 4.16 L RBC 3.84 L Hgb 10.0 L Hct 32.2 L MCV 83.9 MCH 26.0 MCHC 31.1 L RDW Std Deviation 53.0 H RDW Coeff of Chantal 17.8 H Plt Count 126 L D MPV 12.8 H Immature Gran % (Auto) 1.2 Neut % (Auto) 61.1 Lymph % (Auto) 27.4 Linn % (Auto) 7.9 Eos % (Auto) 2.2 Baso % (Auto) 0.2 Neut # (Auto) 2.54 Lymph # (Auto) 1.14 L Linn # (Auto) 0.33 Eos # (Auto) 0.09 Baso # (Auto) 0.01 Immature Gran # (Auto) 0.05 RBC Morphology Unremarkable Peripher Smr Path Cons Sodium 143 Potassium 3.8 Chloride 108 H Carbon Dioxide 32 Anion Gap 3 BUN 56 H Creatinine 1.44 H Est Cr Clr Drug Dosing 49.3 Est GFR ( Amer) 44.1 Est GFR (Non-Af Amer) 38.0 BUN/Creatinine Ratio 38.9 H Glucose 100 H POC Glucose 138 H 95 Calcium 7.4 L Miscellaneous Test Pending Diagnostic Findings Femur MRI 11/22/23 07:00 MR femur LT wo con HISTORY: Left thigh pain. h/o infected seromas; hip/thigh pain; elevated CPK TECHNIQUE: Multiplanar multisequence MRI of the left femur was performed without contrast. COMPARISON STUDY: Left hip radiograph 11/17/2023. Left hip MRI 08/07/2023. FINDINGS: There is again noted a left total arthroplasty. This results in metallic artifact within the left hip and proximal left femur resulting in suboptimal evaluation. There is normal marrow signal intensity seen within the distal left femur. No definite acute fracture or dislocation within the left femur. There is diffuse subcutaneous edema within the left thigh. There is significant fatty atrophy of the left pelvic and left thigh musculature most pronounced within the hamstring muscles. There is associated edema left pelvic and thigh musculature. There is a focal fluid collection posterior to the proximal left femur best seen on axial image 18 and sagittal image 24. This measures approximately 7.6 x 4.5 x 1.7 cm. This is deep to the incision site at the left hip. This is adjacent to but does not clearly abut the posterior proximal femur. This is indeterminate and could represent a postoperative seroma. This is similar to the prior study. Secondary infection would be difficult to exclude. There is a small left knee effusion. There is a full- thickness tear at the proximal attachment of the hamstring tendon complex which demonstrates approximately 7 cm of retraction. The torn and retracted hamstring tendon complexes best seen on axial image 30 of 44. IMPRESSION: 1. Suboptimal evaluation of the left hip and proximal left femur due to the artifact from the left hip prosthesis. 2. There is a focal fluid collection posterior to the proximal left femur which measures approximately 7.6 x 4.5 x 1.7 cm. This is deep to the incision site at the left hip. This is adjacent to but does not clearly abut the posterior proximal femur. This is indeterminate and could represent a postoperative seroma. This is similar to the prior study. Secondary infection would be difficult to exclude. 3. Severe atrophy and edema within the majority of the left pelvic and thigh musculature most pronounced at the hamstring muscles with associated edema. This favors denervation injury. A nonspecific myositis is not excluded but considered less likely. 4. Extensive subcutaneous edema within the left hip/thigh. 5. Small left knee effusion. 6. There is a full-thickness tear at the proximal attachment of the hamstring tendon complex which demonstrates approximately 7 cm of retraction. ACT 112: Negative or not required by law. Electronically signed by: Kj Zimmer M.D. 11/22/2023 2:43 PM PG Care Time/CCT Total # of Minutes Spent Total Time Spent with Patient: Total time spent is greater than 50% in coordination of care (as documented) at patient's floor/unit and/or counseling patient: Coding Level of Care Code 59194 SUB INP/OBS CARE 3/50MIN Diagnoses Muscle wasting and atrophy, not elsewhere classified, other site M62.58 Acute metabolic encephalopathy G93.41 Left hip pain M25.552 Diarrhea R19.7 Chronic kidney disease, stage 4 (severe) N18.4 Severe protein-calorie malnutrition E43 Osteomyelitis of coccyx M46.28 History of femur fracture Z87.81 Pressure ulcer of sacral region, stage 4 L89.154 Pancytopenia D61.818 Cirrhosis K74.60
[2023-11-22] MEDS: oxyCODONE HCL 10 MG TABCR (OxyCONTIN) PO SCH (21:56)
[2023-11-23 01:37] LABS: Copper, Serum 65 mcg/dL (70-175); Zinc 35 mcg/dL (60-130)
--- NOTE | 2023-11-23 19:36 | Hospitalist Progress Note ---
Date of Service November 23, 2023 Assessment & Plan (1) Copper deficiency myeloneuropathy: Plan: copper deficiency can cause denervation injury (which was seen on her femur MRI), CBC abnormalities, and a host of other issues. copper deficiency can also cause myopathy. her copper deficiency is likely from a combination of very poor nutrition for many months as well as gastric bypass status. copper deficiency is well documented in the literature surrounding bariatric surgery. Up-to-date suggests a 5-day course of IV copper replacement if there is neurological involvement from copper deficiency which I believe is the case with Ms Arellano. I have spoken with pharmacy about obtaining IV copper - this will need to be ordered. See #2 below. Awaiting B1 level. Plan to obtain Vitamin E, selenium levels, vitamin B6, etc. (2) Zinc deficiency: Plan: Will supplement with zinc sulfate 220mg daily x 14 days. (3) Muscle wasting and atrophy, not elsewhere classified, other site: Plan: In 07/2023 CPK was mildly elevated (range: 473-753) CPK mildly high earlier this week (226) aldolase sent holding statin --> sent HBV-MJm-Nekzjkvyy inhibitor Ab sed rate/crp wnl -- reassuring, but doesn't rule out a primary muscle d/o MRI brain negative discussed her care informally with Dr Segun Martínez from rheumatology checked myositis specific 11 Ab panel MRI left femur obtained - multiple findings, but "Severe atrophy and edema within the majority of the left pelvic and thigh musculature most pronounced at the hamstring muscles with associated edema. This favors denervation injury. A nonspecific myositis is not excluded but considered less likely" could be diabetic polyneuropathy contributing as well - has seen neuro in the past for this - neurology consult was done & they advise outpatient EMG see above in #1 re: copper deficiency this could be contributing heavily to her clinical status (4) Acute metabolic encephalopathy: Plan: resolved By report had hallucinations and behavior change at SNF. CT head without acute findings. Sed rate/crp wnl. By 11/17 mental status was completely normal. MRI brain negative - no acute/subacute CVA or other abnormalities. Etiology uncertain. No specific infectious etiology found. Could be a nutritional deficiency - B1 def, etc. While awaiting B1 level placed on empiric B1 supplementation. Polypharmacy is another possible etiology but there have been no changes in her meds recently by report. (5) Left hip pain: Plan: Left hip/thigh pain extending to near the left knee. Evaluated during hospitalization in Jul 2023 and treated for hip wound (NOT intra-articular or prosthetic joint). per last ID note: # L hip subcutaneous collection s/p aspiration 08/08 cx neg # L hip wound infection - L hip swab WCx + MSSA and skin lesly, L hip arthrocentesis + Corynebacterium and skin lesly (per ortho low suspicion for joint infection) # h/o L femur fracture s/p repair 04/09/23 # L knee effusion s/p arthrocentesis w/ removal of 25 mL clear, serous fluid on 08/06 CRP only mildly elevated at 2.5 and ESR very low at 2. Hip x-rays unremarkable with intact hardware, no lucencies, etc. Seen by [facility] [place] - no specific Rx recommended other than PT, OT, and pain control. Etiology of pain? Neuropathic? Other? Prior imaging of l-spine with severe L5-S1 disc disease but her pain does not extend below the left knee making L5 or S1 neuropathy highly unlikely. Her pain is severe to the pain it is leaving her bed-bound. Appreciate pain management consult -- no specific Rx advised. Checked a LLE venous doppler - NO DVT seen. MRI left femur with fluid collection present --> spoke with David Craven from IR - I/D will occur Saturday am, 11/26/23 made patient aware Oxycontin 10mg BID started last pm for refractory pain and her pain is indeed improved with such tolerating it without excss sedation cont oxycodone IR prn cont dilaudid IV prn (6) Diarrhea: Plan: had such at [facility] but no diarrhea since (7) Chronic kidney disease, stage 4 (severe): Plan: CKD stage 4 - primary cat scan technologist is Dr. Kang - [facility] [place] Nephrology Has AVF RUE Cr very stable mid to upper 1's (8) Severe protein-calorie malnutrition: Plan: at least 12 to as much as 15/16 kg of weight loss in the last year albumin has been <2 since fall 2022 very poor oral intake chronically at [facility] - it is true anorexia some of the low albumin likely due to cirrhosis but doesn't explain all of it checked a cortisol level - wnl empiric thiamine while awaiting B1 level copper & zinc levels have returned low -- see #1, #2 above of note - u/a without significant proteinuria nutrition consult appreciated cont MVI would benefit from ongoing nutrition management upon discharge [facility] 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 (9) Osteomyelitis of coccyx: Plan: obtained MRI pelvis report completed 11/15/23 MRI showed "sacral decubitus ulcer + underlying osteomyelitis of coccyx" what argues against chronic osteomyelitis is that her sed rate and crp are very normal further, gen surgery has seen, and they report her sacral wound is much better in comparison to last fall when Dr Payne performed debridement it is possible that the bony findings on MRI is simply bony remodeling rather than true infection I corresponded with gen surg - no plans for surgical intervention of the wound or the coccyx itself ID consult obtained - they advise against any IV or PO abx therapy at this time as well cont wound vac appreciate wound care & gen surg assistance needs better nutrition needs zinc deficiency reversed checking other nutritional labs (10) History of femur fracture: Plan: left hip - 03/2023 - s/p ORIF by Dr Eric Childress see above (11) Pressure ulcer of sacral region, stage 4: Plan: present on admission started fall of 2022 s/p debridement 05/06/[address] Payne recent Rx - woundvac this admission - NO evidence of acute wound infection appreciate formal general surgery consult this admission they recommend ongoing wound care/wound VAC as noted above CRP only 2.5 and ESR is 2 which argues against acute osteomyelitis or significant wound infection see above (12) Pancytopenia: Plan: possibly related to cirrhosis as liver u/s does confirm cirrhosis. TSH scantly elevated at 4.51 - this is NOT the cause has had SPEP/UPEP in the past - no significant m-spike seen on prior studies B12 wnl folate wnl checked a copper & zinc level - both deficient - copper def could be causing or contributing to her cell line abnormalities peripheral smear done today -- no evidence of myelodysplasia will need copper replacement (13) Cirrhosis: Plan: likely due to THOMSON compensated cont bumex ammonia wnl Plan Other chronic issues: History of gastric bypass. Consider EGD due to persistent nausea. Hypothyroidism - TSH this admission 4.51 - no change in synthroid dose. TRUMAN intolerant of CPAP, mixed restrictive and obstructive lung disease HFpEF - compensated/not in exacerbation History of afib/flutter - on chronic Eliquis -- will resume after her I/D is completed on Saturday. Morbid obesity with BMI of 37 Hypertension DVT proph - heparin 5000 BID (due to renal impairment) updated pt's by phone extensively mid-week and again last pm appreciate neurology patriciaal will attempt to get patient OOB to chair tomorrow with assistance of a lift Admission and Anticipated Discharge Date Admission Date: November 16, 2023 Subjective no new complaints lying in bed comfortably reports being out of bed minimally for months the SNF was getting her to a special wheelchair in the weeks leading up to this admission but it was painful (the positioning in the chair) eating ok no abd pain did have bowel movement pain in left leg/hip is much improved with oxycontin I mentioned I had updated her yesterday she states he "told me I'll never walk again" and this gets her very upset we discussed using a lift to get to the chair - willing to do it Review of Systems Review of Systems: gen - no fevers cv - no chest pain, no orthopnea pulm - no dyspnea at rest GI - no abd pain Physical Exam Physical Exam: gen - morbidly obese, NAD, laying comfortably in bed neck - no JVD mouth - MMM heart - RRR, s1 s2, no murmur lungs - CTA b/l abd - soft NT ND BS+ neuro - severe atrophy of b/l arms and legs (except RUE biceps/triceps area -- edematous) psych - a/o x 3 ext - trace edema, pulses feet 2+ b/l Results & Data Results & Data Vital Signs (Past 12 Hours) Vital Signs Temp Pulse Resp BP Pulse Ox O2 Del Method 11/23/23 19:34 36.9 C 84 14 145/84 H 92 Room Air 11/23/23 15:16 37 C 88 18 134/80 95 Room Air 11/23/23 10:45 83 20 137/90 95 Room Air Laboratory Results Laboratory Results - last 24 hr 11/20/23 11/22/23 11/23/23 08:42 20:38 07:36 POC Glucose 166 H 85 Serum Copper 65 L Zinc 35 L 11/23/23 11/23/23 11:24 16:26 POC Glucose 118 H 114 H PG Care Time/CCT Total # of Minutes Spent Total Time Spent with Patient: Total time spent is greater than 50% in coordination of care (as documented) at patient's floor/unit and/or counseling patient: Coding Level of Care Code 56591 SUB INP/OBS CARE 50MIN Diagnoses Copper deficiency myeloneuropathy E61.0; G63; G99.2 Zinc deficiency E60 Muscle wasting and atrophy, not elsewhere classified, other site M62.58 Acute metabolic encephalopathy G93.41 Left hip pain M25.552 Diarrhea R19.7 Chronic kidney disease, stage 4 (severe) N18.4 Severe protein-calorie malnutrition E43 Osteomyelitis of coccyx M46.28 History of femur fracture Z87.81 Pressure ulcer of sacral region, stage 4 L89.154 Pancytopenia D61.818 Cirrhosis K74.60
[2023-11-23] MEDS: ZINC SULFATE 220 MG CAPSULE PO SCH (20:15)
--- NOTE | 2023-11-24 21:00 | Hospitalist Progress Note ---
Date of Service November 24, 2023 Assessment & Plan (1) Copper deficiency myeloneuropathy: Plan: level - 65 (normal 70+) copper deficiency can cause denervation injury (which was seen on her femur MRI), CBC abnormalities, and a host of other issues. copper deficiency can also cause myopathy. She has had elevated CPKs intermittently over the last few months. her copper deficiency is likely from a combination of very poor nutrition for many months as well as gastric bypass status. copper deficiency is well documented in the literature surrounding bariatric surgery. Up-to-date suggests a 5-day course of IV copper replacement if there is neurological involvement from copper deficiency which I believe is the case with Ms Arellano. I have spoken with pharmacy about obtaining IV copper - this will need to be ordered. Paperwork completed to obtain such. See #2 below. B1 level returned normal. Sent Vitamin E, selenium levels, vitamin B6, etc. to be complete. (2) Zinc deficiency: Plan: Will supplement with zinc sulfate 220mg daily x 14 days. This could be contributing to her diffuse dry skin, etc. (3) Muscle wasting and atrophy, not elsewhere classified, other site: Plan: In 07/2023 CPK was mildly elevated (range: 473-753) CPK mildly high earlier this week (226) aldolase sent holding statin --> sent DNO-GSc-Ydsomxvmj inhibitor Ab -- pending sed rate/crp wnl -- reassuring, but doesn't rule out a primary muscle d/o MRI brain negative discussed her care informally with Dr Segun Martínez from rheumatology checked myositis specific 11 Ab panel -- pending MRI left femur obtained - multiple findings, but "Severe atrophy and edema within the majority of the left pelvic and thigh musculature most pronounced at the hamstring muscles with associated edema. This favors denervation injury. A nonspecific myositis is not excluded but considered less likely" could be diabetic polyneuropathy contributing as well - has seen neuro in the past for this - neurology consult was done & they advise outpatient EMG see above in #1 re: copper deficiency this could be contributing heavily to her clinical status (4) Acute metabolic encephalopathy: Plan: resolved By report had hallucinations and behavior change at SNF. CT head without acute findings. Sed rate/crp wnl. By 11/17 mental status was completely normal. MRI brain negative - no acute/subacute CVA or other abnormalities. Etiology uncertain. No specific infectious etiology found. Could be a nutritional deficiency. Polypharmacy is another possible etiology but there have been no changes in her meds recently by report. (5) Left hip pain: Plan: Left hip/thigh pain extending to near the left knee. Evaluated during hospitalization in Jul 2023 and treated for hip wound (NOT intra-articular or prosthetic joint). per last ID note: # L hip subcutaneous collection s/p aspiration 08/08 cx neg # L hip wound infection - L hip swab WCx + MSSA and skin lesly, L hip arthrocentesis + Corynebacterium and skin lesly (per ortho low suspicion for joint infection) # h/o L femur fracture s/p repair 04/09/23 # L knee effusion s/p arthrocentesis w/ removal of 25 mL clear, serous fluid on 08/06 CRP only mildly elevated at 2.5 and ESR very low at 2. Hip x-rays unremarkable with intact hardware, no lucencies, etc. Seen by [facility] - no specific Rx recommended other than PT, OT, and pain control. Etiology of pain? Neuropathic? Other? Prior imaging of l-spine with severe L5-S1 disc disease but her pain does not extend below the left knee making L5 or S1 neuropathy highly unlikely. Her pain is severe to the pain it is leaving her bed-bound. Appreciate pain management consult -- no specific Rx advised. Checked a LLE venous doppler - NO DVT seen. MRI left femur with fluid collection present --> spoke with David Craven from IR - I/D will occur 11/26/23 made patient aware Oxycontin 10mg BID started 11/22/23 for refractory pain and her pain is indeed improved with such tolerating it without excss sedation cont oxycodone IR prn cont dilaudid IV prn (6) Diarrhea: Plan: had such at [facility], then resolved then returned last pm -- c diff negative does not have a gall bladder -- add colestipol 1gm daily (7) Chronic kidney disease, stage 4 (severe): Plan: CKD stage 4 - primary statement clerk is Dr. Kang - [facility] Has AVF RUE Cr very stable mid to upper 1's repeat BMP am (8) Severe protein-calorie malnutrition: Plan: at least 12 to as much as 15/16 kg of weight loss in the last year albumin has been <2 since fall 2022 very poor oral intake chronically at [facility] - it is true anorexia some of the low albumin likely due to cirrhosis but doesn't explain all of it checked a cortisol level - wnl empiric thiamine while awaiting B1 level copper & zinc levels have returned low -- see #1, #2 above of note - u/a without significant proteinuria nutrition consult appreciated cont MVI would benefit from ongoing nutrition management upon discharge [facility] has cardiac catheterization technologist on campus (9) Osteomyelitis of coccyx: Plan: obtained MRI pelvis report completed 11/15/23 MRI showed "sacral decubitus ulcer + underlying osteomyelitis of coccyx" what argues against chronic osteomyelitis is that her sed rate and crp are very normal further, gen surgery has seen, and they report her sacral wound is much better in comparison to last fall when Dr Payne performed debridement it is possible that the bony findings on MRI is simply bony remodeling rather than true infection I corresponded with gen surg - no plans for surgical intervention of the wound or the coccyx itself ID consult obtained - they advise against any IV or PO abx therapy at this time as well cont wound vac or other dressing as advised by wound care team appreciate wound care & gen surg assistance needs better nutrition needs zinc deficiency reversed checking other nutritional labs (10) History of femur fracture: Plan: left hip - 03/2023 - s/p ORIF by Dr Eric Childress see above (11) Pressure ulcer of sacral region, stage 4: Plan: present on admission started fall s/p debridement 05/06/[address] Payne recent Rx - woundvac this admission - NO evidence of acute wound infection appreciate formal general surgery consult this admission they recommend ongoing wound care/wound VAC as noted above CRP only 2.5 and ESR is 2 which argues against acute ost eomyelitis or significant wound infection see above (12) Pancytopenia: Plan: possibly related to cirrhosis as liver u/s does confirm cirrhosis. TSH scantly elevated at 4.51 - this is NOT the cause has had SPEP/UPEP in the past - no significant m-spike seen on prior studies B12 wnl folate wnl checked a copper & zinc level - both deficient - copper def could be causing or contributing to her cell line abnormalities peripheral smear done -- no evidence of myelodysplasia will need copper replacement as above (13) Cirrhosis: Plan: likely due to THOMSON compensated cont bumex ammonia wnl Plan Other chronic issues: History of gastric bypass. Consider EGD due to persistent nausea. Hypothyroidism - TSH this admission 4.51 - no change in synthroid dose. TRUMAN intolerant of CPAP, mixed restrictive and obstructive lung disease HFpEF - compensated/not in exacerbation History of afib/flutter - on chronic Eliquis -- will resume after her I/D is completed on Saturday. Morbid obesity with BMI of 37 Hypertension DVT proph - heparin 5000 BID (due to renal impairment) updated pt's by phone extensively mid-week and again 2 nights ago will update him on 11/25/23 appreciate neurology eval oob to chair 1x/day as tolerated/as desired PT, OT Admission and Anticipated Discharge Date Admission Date: November 16, 2023 Subjective patient reports diarrhea and fecal incontinence "I usually don't have this" did get transferred from bed to chair with lift spent <1 hour in chair she states her back was painful the entire time in the chair she was tearful talking about the transfer left leg pain was relatively controlled until she was rolled today for continence care and until the transfer she reports "spasms" of left leg eating is "getting better" Review of Systems Review of Systems: gen - no fevers cv - no orthopnea pulm - no dyspnea GI - no abd pain; slight nausea at times Physical Exam Physical Exam: gen - morbidly obese, NAD, laying in bed; looks same as yesterday neck - no JVD mouth - MMM heart - RRR, s1 s2, no murmur lungs - CTA b/l abd - soft NT ND BS+ neuro - severe atrophy of b/l arms and legs psych - a/o x 3; tearful ext - trace edema, pulses feet 2+ b/l back - I cannot see the wound on low back due to patient positioning Results & Data Results & Data Vital Signs (Past 12 Hours) Vital Signs Temp Pulse Pulse Resp BP Pulse Ox O2 Del Method 11/24/23 20:42 37.0 C 89 18 147/86 H 91 Room Air 11/24/23 09:45 82 18 129/67 92 Room Air Laboratory Results Laboratory Results - last 24 hr 11/18/23 11/24/23 11/24/23 05:34 00:47 07:00 POC Glucose 110 H Vitamin B1 16 Stl C. diff Tox B Gene Negative Cdiff Gene 11/24/23 11/24/23 11/24/23 11:19 12:30 16:41 POC Glucose 109 H 117 H Vitamin B6 Pending Alpha-Tocopherol Pending B- and G-Tocopherol Pending Whole Blood Selenium Pending PG Care Time/CCT Total # of Minutes Spent Total Time Spent with Patient: Total time spent is greater than 50% in coordination of care (as documented) at patient's floor/unit and/or counseling patient: Coding Level of Care Code 77765 SUB INP/OBS CARE 2/35MIN Diagnoses Copper deficiency myeloneuropathy E61.0; G63; G99.2 Zinc deficiency E60 Muscle wasting and atrophy, not elsewhere classified, other site M62.58 Acute metabolic encephalopathy G93.41 Left hip pain M25.552 Diarrhea R19.7 Chronic kidney disease, stage 4 (severe) N18.4 Severe protein-calorie malnutrition E43 Osteomyelitis of coccyx M46.28 History of femur fracture Z87.81 Pressure ulcer of sacral region, stage 4 L89.154 Pancytopenia D61.818 Cirrhosis K74.60
[2023-11-24] MEDS: COLESTIPOL HCL 1 GM TAB PO SCH (22:00)
[2023-11-25 08:34] LABS: Basophils # (auto) 0.03 K/uL (0.00-0.20); Basophils % (auto) 0.6 %; Eosinophils # (auto) 0.16 K/uL (0.00-0.50); Eosinophils % (auto) 3.4 %; Immature Granulocytes # (auto) 0.03 K/uL (0.01-0.20); Immature Granulocytes % (auto) 0.6 %; Lymphocytes # (auto) 0.93 K/uL (1.20-3.40); Lymphocytes % (auto) 19.5 %; Mean Corpuscular Hemoglobin 26.1 pg (25.0-34.0); Mean Corpuscular Hgb Conc 30.6 g/dL (32.0-36.0); Mean Corpuscular Volume 85.3 fL (80.0-100.0); Monocytes # (auto) 0.33 K/uL (0.11-0.59); Monocytes % (auto) 6.9 %; Neutrophils # (auto) 3.28 K/uL (1.40-6.50); Platelet Count 122 K/uL (130-400); RDW Coefficient of Variation 18.4 % (11.5-14.5); RDW Standard Deviation 55.4 fL (36.4-46.3); Red Blood Count 4.22 M/uL (4.20-5.40); White Blood Count 4.76 K/ul (4.8-10.8)
[2023-11-25 08:52] LABS: BUN Creatinine Ratio 36.4 (10-20); Calcium 7.6 mg/dl (8.6-10.3); Creatinine Clr Calc Pharmacy 58.7 ml/min; Est GFR (African American) 54.4 ml/min; Est GFR (Non-African American) 46.9 ml/min; Potassium 3.7 mmol/L (3.5-5.1)
[2023-11-25] MEDS: THIAMINE HCL 100 MG TAB PO SCH (09:04)
[2023-11-25] MEDS ORDERED: Nursing to Pharmacy Communication SCH (10:30)
[2023-11-25] MEDS: SODIUM CHLORIDE 0.9% IV SCH (10:32)
[2023-11-25] MEDS: CUPRIC CHLORIDE IV SCH (10:32)
--- NOTE | 2023-11-25 20:21 | Hospitalist Progress Note ---
Date of Service November 25, 2023 Assessment & Plan (1) Copper deficiency myeloneuropathy: Plan: level - 65 (normal 70+) copper deficiency can cause denervation injury (which was seen on her femur MRI), CBC abnormalities, and a host of other issues. copper deficiency can also cause myopathy. She has had elevated CPKs intermittently over the last few months. her copper deficiency is likely from a combination of very poor nutrition for many months as well as gastric bypass status - especially the latter. copper deficiency is well documented in the literature surrounding bariatric surgery. Up-to-date suggests a 5-day course of IV copper replacement (2mg copper daily) if there is neurological involvement from copper deficiency which I believe is the case with Ms Arellano. IV copper ordered, arrived today, and first dose given w/o incident. Likely to need PO copper after discharge - copper gluconate is 1 preparation (probably would have to be ordered?) B1 level returned normal. Sent Vitamin E, selenium levels, vitamin B6, etc. to be complete. Zinc def - see below. (2) Zinc deficiency: Plan: Will supplement with zinc sulfate 220mg daily x 14 days. This could be contributing to her diffuse dry skin, anorexia, etc. Today is day #3. (3) Muscle wasting and atrophy, not elsewhere classified, other site: Plan: In 07/2023 CPK was mildly elevated (range: 473-753) CPK mildly high earlier this week (226) aldolase sent and pending holding statin --> sent AXV-YNd-Dxutlkxoq inhibitor Ab -- pending sed rate/crp wnl -- reassuring, but doesn't rule out a primary muscle d/o repeat CRP tomorrow for stability MRI brain negative discussed her care informally with Dr Segun Martínez from rheumatology he advised checking myositis specific 11 Ab panel -- pending he advised f/u with him post-discharge MRI left femur obtained - multiple findings, but "Severe atrophy and edema within the majority of the left pelvic and thigh musculature most pronounced at the hamstring muscles with associated edema. This favors denervation injury. A nonspecific myositis is not excluded but considered less likely" could be diabetic polyneuropathy contributing as well - has seen neuro in the past for this - neurology consult was done this admission & they advised outpatient EMG see above in #1 re: copper deficiency this could be contributing heavily to her clinical status (4) Acute metabolic encephalopathy: Plan: resolved By report had hallucinations and behavior change at SNF. CT head without acute findings. Sed rate/crp wnl. By 11/17 mental status was completely normal. MRI brain negative - no acute/subacute CVA or other abnormalities. Etiology uncertain. No specific infectious etiology found. Could be a nutritional deficiency. Polypharmacy is another possible etiology but there have been no changes in her meds recently by report. (5) Left hip pain: Plan: Left hip/thigh pain extending to near the left knee. Evaluated during hospitalization in Jul 2023 and treated for hip wound (NOT intra-articular or prosthetic joint). per last ID note: # L hip subcutaneous collection s/p aspiration 08/08 cx neg # L hip wound infection - L hip swab WCx + MSSA and skin lesly, L hip arthrocentesis + Corynebacterium and skin lesly (per ortho low suspicion for joint infection) # h/o L femur fracture s/p repair 04/09/23 # L knee effusion s/p arthrocentesis w/ removal of 25 mL clear, serous fluid on 08/06 CRP only mildly elevated at 2.5 and ESR very low at 2. Hip x-rays unremarkable with intact hardware, no lucencies, etc. Seen by [facility] - no specific Rx recommended other than PT, OT, and pain control. Etiology of pain? Neuropathic? Other? Prior imaging of l-spine with severe L5-S1 disc disease but her pain does not extend below the left knee making L5 or S1 neuropathy highly unlikely. Her pain is severe to the pain it is leaving her bed-bound. Appreciate pain management consult -- no specific Rx advised. Checked a E venous doppler - NO DVT seen. MRI left femur with fluid collection present --> spoke with David Craven from IR - I/D will occur Saturday am, 11/26/23, 0900 patient aware hold heparin SC starting tonight Eliquis has been hold since earlier in the admission Oxycontin 10mg BID started 11/22/23 for refractory pain and her pain is indeed improved with such tolerating it without excss sedation cont oxycodone IR prn cont dilaudid IV prn (6) Diarrhea: Plan: had such at [facility] -- resolved, then returned 2 days ago -- c diff negative does not have a gall bladder -- added colestipol 1gm daily; diarrhea improved (7) Chronic kidney disease, stage 4 (severe): Plan: CKD stage 4 - primary wool dyer is Dr. Kang - [facility] Has AVF RUE Cr very stable mid to upper 1's repeat BMP today with Cr 1.2 (8) Severe protein-calorie malnutrition: Plan: at least 12 to as much as 15/16 kg of weight loss in the last year albumin has been <2 since fall 2022 very poor oral intake chronically at [facility] - it is true anorexia some of the low albumin likely due to cirrhosis but doesn't explain all of it checked a cortisol level - wnl copper & zinc levels have returned low -- see #1, #2 above of note - u/a without significant proteinuria nutrition consult appreciated cont MVI would benefit from ongoing nutrition management upon discharge [facility] has operations technician on campus but uncertain of their names [facility] to one of their clinical nutrition providers (9) Osteomyelitis of coccyx: Plan: obtained MRI pelvis report completed 11/15/23 MRI showed "sacral decubitus ulcer + underlying osteomyelitis of coccyx" what argues against chronic osteomyelitis is that her sed rate and crp are very normal further, gen surgery has seen, and they report her sacral wound is much better in comparison to last fall when Dr Payne performed debridement it is possible that the bony findings on MRI is simply bony remodeling rather than true infection I corresponded with gen surg - no plans for surgical intervention of the wound or the coccyx itself ID consult obtained - they advise against any IV or PO abx therapy at this time as well cont recs by wound care team (wound vac has been discontinued as of today) appreciate wound care & gen surg assistance needs better nutrition needs zinc deficiency reversed checking other nutritional labs (10) History of femur fracture: Plan: left hip - 03/2023 - s/p ORIF by Dr Eric Childress see above (11) Pressure ulcer of sacral region, stage 4: Plan: present on admission started fall of 2022 s/p debridement 05/06/[address] Payne recent Rx - woundvac this admission - NO evidence of acute wound infection appreciate formal general surgery consult this admission they recommend ongoing wound care/wound VAC as noted above CRP only 2.5 and ESR is 2 which argues against acute osteomyelitis or significant wound infection see above (12) Pancytopenia: Plan: possibly related to cirrhosis as liver u/s does confirm cirrhosis. TSH scantly elevated at 4.51 - this is NOT the cause has had SPEP/UPEP in the past - no significant m-spike seen on prior studies B12 wnl folate wnl checked a copper & zinc level - both deficient - copper def could be causing or contributing to her cell line abnormalities peripheral smear done -- no evidence of myelodysplasia will need copper replacement as above in #1 (13) Cirrhosis: Plan: likely due to THOMSON compensated cont bumex ammonia wnl Plan Other chronic issues: History of gastric bypass. Consider EGD due to persistent nausea. Hypothyroidism - TSH this admission 4.51 - no change in synthroid dose. TRUMAN intolerant of CPAP, mixed restrictive and obstructive lung disease HFpEF - compensated/not in exacerbation History of afib/flutter - on chronic Eliquis -- will resume after her I/D is completed on Saturday 11/25. Morbid obesity with BMI of 37 Hypertension DVT proph - heparin 5000 BID (due to renal impairment) - hold tonight's dose due to I/D planned for tomorrow. updated pt's at bedside today appreciate neurology eval appreciate IR assistance appreciate wound care assistance appreciate nutrition assistance oob to chair 1x/day as tolerated/as desired PT, OT Admission and Anticipated Discharge Date Admission Date: November 16, 2023 Subjective pt's present at bedside during the visit pt received IV copper earlier in the day w/o incident she c/o severe pain in the area of her decubitus ulcer the wound vac was removed by the wound care team; since removal her pain has been better she continues with L hip/thigh pain she declined getting to the chair today appetite fair/poor but no vomiting no diarrhea today Review of Systems Review of Systems: gen - no fevers cv - no orthopnea; stated "her swelling in her legs looks much better" psych - per she is less irritable pulm - no dyspnea at rest GI - no abd pain Physical Exam Physical Exam: gen - morbidly obese, NAD, laying in bed; looks same as yesterday; awake/alert neck - no JVD mouth - MMM; no thrush heart - RRR, s1 s2, no murmur lungs - CTA b/l abd - soft NT ND BS+ neuro - severe atrophy of b/l arms and legs (except RUE - mild swelling/lymphedema) psych - a/o x 3 ext - no edema b/l; pulses feet 2+ b/l Results & Data Results & Data Vital Signs (Past 12 Hours) Vital Signs Temp Pulse Pulse Resp BP Pulse Ox O2 Del Method 11/25/23 14:50 36.8 C 76 16 141/80 H 95 Room Air 11/25/23 10:59 36.8 C 83 14 125/61 95 Room Air Laboratory Results Laboratory Results - last 24 hr 11/24/23 11/25/23 11/25/23 20:39 07:33 08:14 WBC 4.76 L RBC 4.22 Hgb 11.0 L Hct 36.0 L MCV 85.3 MCH 26.1 MCHC 30.6 L RDW Std Deviation 55.4 H RDW Coeff of Chantal 18.4 H Plt Count 122 L MPV 12.0 Immature Gran % (Auto) 0.6 Neut % (Auto) 69.0 Lymph % (Auto) 19.5 Evans % (Auto) 6.9 Eos % (Auto) 3.4 Baso % (Auto) 0.6 Neut # (Auto) 3.28 Lymph # (Auto) 0.93 L Evans # (Auto) 0.33 Eos # (Auto) 0.16 Baso # (Auto) 0.03 Immature Gran # (Auto) 0.03 Sodium 145 Potassium 3.7 Chloride 109 H Carbon Dioxide 33 H Anion Gap 3 BUN 44 H Creatinine 1.21 H Est Cr Clr Drug Dosing 58.7 Est GFR ( Amer) 54.4 Est GFR (Non-Af Amer) 46.9 BUN/Creatinine Ratio 36.4 H Glucose 89 POC Glucose 119 H 99 Calcium 7.6 L 11/25/23 11/25/23 11:44 16:17 WBC RBC Hgb Hct MCV MCH MCHC RDW Std Deviation RDW Coeff of Chantal Plt Count MPV Immature Gran % (Auto) Neut % (Auto) Lymph % (Auto) Evans % (Auto) Eos % (Auto) Baso % (Auto) Neut # (Auto) Lymph # (Auto) Evans # (Auto) Eos # (Auto) Baso # (Auto) Immature Gran # (Auto) Sodium Potassium Chloride Carbon Dioxide Anion Gap BUN Creatinine Est Cr Clr Drug Dosing Est GFR ( Amer) Est GFR (Non-Af Amer) BUN/Creatinine Ratio Glucose POC Glucose 108 H 101 H Calcium PG Care Time/CCT Total # of Minutes Spent Total Time Spent with Patient: Total time spent is greater than 50% in coordination of care (as documented) at patient's floor/unit and/or counseling patient: Coding Level of Care Code 28068 SUB INP/OBS CARE 3/50MIN Diagnoses Copper deficiency myeloneuropathy E61.0; G63; G99.2 Zinc deficiency E60 Muscle wasting and atrophy, not elsewhere classified, other site M62.58 Acute metabolic encephalopathy G93.41 Left hip pain M25.552 Diarrhea R19.7 Chronic kidney disease, stage 4 (severe) N18.4 Severe protein-calorie malnutrition E43 Osteomyelitis of coccyx M46.28 History of femur fracture Z87.81 Pressure ulcer of sacral region, stage 4 L89.154 Pancytopenia D61.818 Cirrhosis K74.60
[2023-11-26] MEDS: oxyCODONE HCL IR 5 MG TAB (IMMEDIATE RELEASE) PO PRN (07:38)
[2023-11-26 08:52] LABS: Hematocrit (blood only) 37.9 % (37.0-47.0); Hemoglobin 11.5 g/dl (12.0-16.0); Mean Corpuscular Hemoglobin 25.9 pg (25.0-34.0); Mean Corpuscular Hgb Conc 30.3 g/dL (32.0-36.0); Mean Corpuscular Volume 85.4 fL (80.0-100.0); Mean Platelet Volume 12.1 fL (9.4-12.4); Platelet Count 146 K/uL (130-400); RDW Coefficient of Variation 18.3 % (11.5-14.5); RDW Standard Deviation 55.3 fL (36.4-46.3); Red Blood Count 4.44 M/uL (4.20-5.40); White Blood Count 4.23 K/ul (4.8-10.8)
[2023-11-26 09:29] LABS: INR 1.1 (0.9-1.1); Partial Thromboplastin Ratio 0.9; Partial Thromboplastin Time 25 Seconds (21-31); Prothrombin Time 11.5 Seconds (9.0-12.0)
--- NOTE | 2023-11-26 14:32 | Ultrasound Report ---
Ultrasound guided left hip fluid collection aspiration INDICATION: 4 cm lateral subcutaneous left hip fluid collection COMPARISON: MRI left femur 11/22/2023 PROCEDURE: Procedure and risks were explained. Informed consent was obtained. A final timeout was com pleted. The left lateral hip was prepped and draped in sterile fashion. 1% lidocaine was utilized for skin anesthesia. Utilizing ultrasound guidance, a 5 Indonesian safety centesis catheter was advanced into the complex appe aring left lateral subcutaneous hip fluid collection. Ultrasound images were obtained. 2 aspirates we re obtained yielding approximately 2 mL of purulent appearing bloody fluid and another aspirated marian ding approximately 7 mL of cloudy yellow fluid. This was sent to the lab for culture analysis. The ca theter was removed and Band-Aid applied. The patient tolerated the procedure well. IMPRESSION: Ultrasound-guided left hip fluid collection aspiration as above. Performed, dictated, and signed by George Craven PA-C; to be co-signed by Dr. Timothy Tracy. Electronically signed by: Timothy Tracy M.D. 11/26/2023 2:33 PM
--- NOTE | 2023-11-26 15:08 | Hospitalist Progress Note ---
Date of Service November 26, 2023 Assessment & Plan (1) Copper deficiency myeloneuropathy: Plan: level - 65 (normal 70+) copper deficiency can cause denervation injury (which was seen on her femur MRI), CBC abnormalities, and a host of other issues. copper deficiency can also cause myopathy. She has had elevated CPKs intermittently over the last few months. her copper deficiency is likely from a combination of very poor nutrition for many months as well as gastric bypass status - especially the latter. copper deficiency is well documented in the literature surrounding bariatric surgery. Up-to-date suggests a 5-day course of IV copper replacement (2mg copper daily) if there is neurological involvement from copper deficiency which I believe is the case with Ms Arellano. day 2/ IV copper Likely to need PO copper after discharge - copper gluconate is 1 preparation (probably would have to be ordered?) B1 level returned normal. Sent Vitamin E, selenium levels, vitamin B6 - pending Zinc def - see below. (2) Zinc deficiency: Plan: Will supplement with zinc sulfate 220mg daily x 14 days. This could be contributing to her diffuse dry skin, anorexia, etc. Today is day #4. (3) Muscle wasting and atrophy, not elsewhere classified, other site: Plan: In 07/2023 CPK was mildly elevated (range: 473-753) CPK mildly high earlier this week (226) aldolase sent and pending holding statin --> sent GUF-URu-Vxggpcybe inhibitor Ab -- pending sed rate/crp wnl -- reassuring, but doesn't rule out a primary muscle d/o repeat CRP improved from 2.55 down to 1.53 MRI brain negative discussed her care informally with Dr Segun Martínez from rheumatology he advised checking myositis specific 11 Ab panel -- pending he advised f/u with him post-discharge MRI left femur obtained - multiple findings, but "Severe atrophy and edema within the majority of the left pelvic and thigh musculature most pronounced at the hamstring muscles with associated edema. This favors denervation injury. A nonspecific myositis is not excluded but considered less likely" could be diabetic polyneuropathy contributing as well - has seen neuro in the past for this - neurology consult was done this admission & they advised outpatient EMG see above in #1 re: copper deficiency this could be contributing heavily to her clinical status (4) Acute metabolic encephalopathy: Plan: resolved By report had hallucinations and behavior change at SNF. CT head without acute findings. Sed rate/crp wnl. By 11/17 mental status was completely normal. MRI brain negative - no acute/subacute CVA or other abnormalities. Etiology uncertain. No specific infectious etiology found. Could be a nutritional deficiency. Polypharmacy is another possible etiology but there have been no changes in her meds recently by report. (5) Left hip pain: Plan: Left hip/thigh pain extending to near the left knee. Evaluated during hospitalization in Jul 2023 and treated for hip wound (NOT intra-articular or prosthetic joint). per last ID note: # L hip subcutaneous collection s/p aspiration 08/08 cx neg # L hip wound infection - L hip swab WCx + MSSA and skin lesly, L hip arthrocentesis + Corynebacterium and skin lesly (per ortho low suspicion for joint infection) # h/o L femur fracture s/p repair 04/09/23 # L knee effusion s/p arthrocentesis w/ removal of 25 mL clear, serous fluid on 08/06 CRP only mildly elevated at 2.5 and ESR very low at 2. Hip x-rays unremarkable with intact hardware, no lucencies, etc. Seen by [facility] - no specific Rx recommended other than PT, OT, and pain control. Etiology of pain? Neuropathic? Other? Prior imaging of l-spine with severe L5-S1 disc disease but her pain does not extend below the left knee making L5 or S1 neuropathy highly unlikely. Her pain is severe to the pain it is leaving her bed-bound. Appreciate pain management consult -- no specific Rx advised. Checked a [facility] venous doppler - NO DVT seen. MRI left femur with fluid collection present --> two subcutaneous fluid collections from left hip area aspirated by IR 11/25. culture/Gram stain pending Oxycontin 10mg BID started 11/22/23 for refractory pain and her pain is indeed improved with such cont oxycodone IR prn cont dilaudid IV prn (6) Diarrhea: Plan: had such at [facility] -- resolved, then returned, c diff negative does not have a gall bladder -- added colestipol 1gm daily; diarrhea improved - reports no diarrhea today (7) Chronic kidney disease, stage 4 (severe): Plan: CKD stage 4 - primary paper rewinder operator is Dr. Kang - [facility] Has AVF RUE Cr very stable mid to upper 1's repeat BMP today with Cr unchanged at 1.2 (8) Severe protein-calorie malnutrition: Plan: at least 12 to as much as 15/16 kg of weight loss in the last year albumin has been <2 since fall 2022 very poor oral intake chronically at SNF - it is true anorexia some of the low albumin likely due to cirrhosis but doesn't explain all of it checked a cortisol level - wnl copper & zinc levels have returned low -- see #1, #2 above of note - u/a without significant proteinuria nutrition consult appreciated cont MVI would benefit from ongoing nutrition management upon discharge [facility] has piano bench assembler on campus but uncertain of their names Could refer to [facility] to one of their clinical nutrition providers (9) Osteomyelitis of coccyx: Plan: obtained MRI pelvis report completed 11/15/23 MRI showed "sacral decubitus ulcer + underlying osteomyelitis of coccyx" what argues against chronic osteomyelitis is that her sed rate and crp are very normal further, gen surgery has seen, and they report her sacral wound is much better in comparison to last fall when Dr Payne performed debridement it is possible that the bony findings on MRI is simply bony remodeling rather than true infection I corresponded with gen surg - no plans for surgical intervention of the wound or the coccyx itself ID consult obtained - they advise against any IV or PO abx therapy at this time as well cont recs by wound care team (wound vac has been discontinued as of today) appreciate wound care & gen surg assistance needs better nutrition needs zinc deficiency reversed checking other nutritional labs (10) History of femur fracture: Plan: left hip - 03/2023 - s/p ORIF by Dr Eric Childress see above (11) Pressure ulcer of sacral region, stage 4: Plan: present on admission started fall of 2022 s/p debridement 05/06/[address] Payne recent Rx - woundvac this admission - NO evidence of acute wound infection appreciate formal general surgery consult this admission they recommend ongoing wound care/wound VAC as noted above CRP only 2.5-->1.53 and ESR is 2 which argues against acute osteomyelitis or significant wound infection see above (12) Pancytopenia: Plan: possibly related to cirrhosis as liver u/s does confirm cirrhosis. TSH scantly elevated at 4.51 - this is NOT the cause has had SPEP/UPEP in the past - no significant m-spike seen on prior studies B12 wnl folate wnl checked a copper & zinc level - both deficient - copper def could be causing or contributing to her cell line abnormalities peripheral smear done -- no evidence of myelodysplasia CBC with improvement/normal hematocrit and platelet count 11/25 (13) Cirrhosis: Plan: likely due to THOMSON compensated cont bumex ammonia wnl Plan Other chronic issues: History of gastric bypass. Consider EGD due to persistent nausea. Hypothyroidism - TSH this admission 4.51 - no change in Synthroid dose. TRUMAN intolerant of CPAP, mixed restrictive and obstructive lung disease HFpEF - compensated/not in exacerbation History of afib/flutter - on chronic Eliquis -- will resume Morbid obesity with BMI of 37 Hypertension DVT proph - resume apixaban updated pt's at bedside 11/24 Admission and Anticipated Discharge Date Admission Date: November 16, 2023 Subjective continues to have left leg 'spasms' posteriorly. Did not feel up to getting into chair with a lift today. Had a good appetite and ate all of her lunch no nausea or diarrhea underwent aspiration of fluid collections near left hip by ultrasound today Physical Exam 2 Physical Exam: PHYSICAL EXAMINATION Last 24h vital signs reviewed, see documentation in flowsheet General: comfortable appearing, no distress, chronically ill appearing and pale. awake and alert HEENT: Normocephalic, atraumatic, pupils round and equal, sclerae anicteric, no conjunctival injection, moist mucus membranes Lungs: Normal respiratory effort. Clear to auscultation bilaterally. No RRW Heart: Regular rate and rhythm, no murmurs. No JVD Abdomen: Soft, nontender, nondistended. Bowel sounds present. Extremities: Warm, dry, well-perfused. left lateral hip area nontender no erythema, aspiration site covered with Band-Aid Neuro: Alert and oriented x 4, face symmetric, moves 4 extremities, global weakness especially bilateral lower extremities present Psych: Normal affect and behavior Results & Data Results & Data Vital Signs (Past 12 Hours) Vital Signs Temp Pulse Resp BP Pulse Ox O2 Del Method 11/26/23 11:51 36.7 C 83 18 177/74 H 94 Room Air 11/26/23 10:27 87 16 139/71 98 Room Air 11/26/23 09:59 36.7 C 81 18 160/83 H 96 Room Air 11/26/23 07:14 36.5 C 77 16 152/76 H 91 Room Air Laboratory Results 11/26/23 08:38 11/25/23 08:14 PG Care Time/CCT Total # of Minutes Spent Total Time Spent with Patient: Total time spent is greater than 50% in coordination of care (as documented) at patient's floor/unit and/or counseling patient: Coding Level of Care Code 82896 SUB INP/OBS CARE 2/35MIN Diagnoses Copper deficiency myeloneuropathy E61.0; G63; G99.2 Zinc deficiency E60 Muscle wasting and atrophy, not elsewhere classified, other site M62.58 Acute metabolic encephalopathy G93.41 Left hip pain M25.552 Diarrhea R19.7 Chronic kidney disease, stage 4 (severe) N18.4 Severe protein-calorie malnutrition E43 Osteomyelitis of coccyx M46.28 History of femur fracture Z87.81 Pressure ulcer of sacral region, stage 4 L89.154 Pancytopenia D61.818 Cirrhosis K74.60
[2023-11-26] MEDS: APIXABAN 5 MG TABLET PO SCH (21:18)
[2023-11-27] MEDS ORDERED: hydrOXYzine HCl 10 MG TAB PO PRN (13:44)
--- NOTE | 2023-11-27 16:03 | Hospitalist Progress Note ---
Date of Service November 27, 2023 Assessment & Plan (1) Copper deficiency myeloneuropathy: Plan: level - 65 (normal 70+) copper deficiency can cause denervation injury (which was seen on her femur MRI), CBC abnormalities, and a host of other issues. copper deficiency can also cause myopathy. She has had elevated CPKs intermittently over the last few months. her copper deficiency is likely from a combination of very poor nutrition for many months as well as gastric bypass status - especially the latter. copper deficiency is well documented in the literature surrounding bariatric surgery. Up-to-date suggests a 5-day course of IV copper replacement (2mg copper daily) if there is neurological involvement from copper deficiency which I believe is the case with Ms Arellano. day 3/5 IV copper Likely to need PO copper after discharge - copper gluconate is 1 preparation (probably would have to be ordered?) B1 level returned normal. Sent Vitamin E, selenium levels, vitamin B6 - pending Zinc def - see below. (2) Zinc deficiency: Plan: Will supplement with zinc sulfate 220mg daily x 14 days. This could be contributing to her diffuse dry skin, anorexia, etc. (3) Muscle wasting and atrophy, not elsewhere classified, other site: Plan: In 07/2023 CPK was mildly elevated (range: 473-753) CPK mildly high earlier this week (226) aldolase sent and pending holding statin --> sent KOP-PMo-Rxhejhvck inhibitor Ab -- pending sed rate/crp wnl -- reassuring, but doesn't rule out a primary muscle d/o repeat CRP improved from 2.55 down to 1.53 MRI brain negative discussed her care informally with Dr Segun Martínez from rheumatology he advised checking myositis specific 11 Ab panel -- pending he advised f/u with him post-discharge MRI left femur obtained - multiple findings, but "Severe atrophy and edema within the majority of the left pelvic and thigh musculature most pronounced at the hamstring muscles with associated edema. This favors denervation injury. A nonspecific myositis is not excluded but considered less likely" could be diabetic polyneuropathy contributing as well - has seen neuro in the past for this - neurology consult was done this admission & they advised outpatient EMG see above in #1 re: copper deficiency this could be contributing heavily to her clinical status (4) Acute metabolic encephalopathy: Plan: resolved By report had hallucinations and behavior change at SNF. CT head without acute findings. Sed rate/crp wnl. By 11/17 mental status was completely normal. MRI brain negative - no acute/subacute CVA or other abnormalities. No infectious etiology found. Could be a nutritional deficiency. Polypharmacy is another possible etiology but there have been no changes in her meds recently by report. (5) Left hip pain: Plan: Left hip/thigh pain extending to near the left knee. Evaluated during hospitalization in Jul 2023 and treated for hip wound (NOT intra-articular or prosthetic joint). per last ID note: # L hip subcutaneous collection s/p aspiration 08/08 cx neg # L hip wound infection - L hip swab WCx + MSSA and skin lesly, L hip arthrocentesis + Corynebacterium and skin lesly (per ortho low suspicion for joint infection) # h/o L femur fracture s/p repair 04/09/23 # L knee effusion s/p arthrocentesis w/ removal of 25 mL clear, serous fluid on 08/06 CRP only mildly elevated at 2.5 and ESR very low at 2. Hip x-rays unremarkable with intact hardware, no lucencies, etc. Seen [place] [facility] - no specific Rx recommended other than PT, OT, and pain control. Etiology of pain? Neuropathic? Other? Prior imaging of l-spine with severe L5-S1 disc disease but her pain does not extend below the left knee making L5 or S1 neuropathy highly unlikely. Her pain is severe to the pain it is leaving her bed-bound. Appreciate pain management consult -- no specific Rx advised. Checked a E venous doppler - NO DVT seen. MRI left femur with fluid collection present --> two subcutaneous fluid collections from left hip area aspirated by IR 11/25. 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 Kang - [facility] Has AVF RUE Cr has remained at baseline (8) Severe protein-calorie malnutrition: Plan: at least 12 to as much as 15/16 kg of weight loss in the last year albumin has been <2 since fall 2022 very poor oral intake chronically at SNF - it is true anorexia some of the low albumin likely due to cirrhosis but doesn't explain all of it checked a cortisol level - wnl copper & zinc levels have returned low -- see #1, #2 above of note - u/a without significant proteinuria nutrition consult appreciated cont MVI would benefit from ongoing nutrition management upon discharge [facility] has sprue cutting press operator on campus but uncertain of their names [facility] to one of their clinical nutrition providers (9) Osteomyelitis of coccyx: Plan: obtained MRI pelvis report completed 11/15/23 MRI showed "sacral decubitus ulcer + underlying osteomyelitis of coccyx" what argues against chronic osteomyelitis is that her sed rate and crp are very normal further, gen surgery has seen, and they report her sacral wound is much better in comparison to last fall when Dr Payne performed debridement it is possible that the bony findings on MRI is simply bony remodeling rather than true infection I corresponded with gen surg - no plans for surgical intervention of the wound or the coccyx itself ID consult obtained - they advise against any IV or PO abx therapy at this time as well cont recs by wound care team (wound vac has been discontinued as of today) appreciate wound care & gen surg assistance needs better nutrition needs zinc deficiency reversed checking other nutritional labs (10) History of femur fracture: Plan: left hip - 03/2023 - s/p ORIF by Dr Eric Childress see above also noted to have L hamstring tear on femur MRI - will d/w Dr. Childress (11) Pressure ulcer of sacral region, stage 4: Plan: present on admission started fall of 2022 s/p debridement 05/06/[address] Payne recent Rx - woundvac this admission - NO evidence of acute wound infection appreciate formal general surgery consult this admission they recommend ongoing wound care/wound VAC as noted above CRP only 2.5-->1.53 and ESR is 2 which argues against acute osteomyelitis or significant wound infection wound vac discontinued this admission per recommendations of wound care nurse (12) Pancytopenia: Plan: possibly related to cirrhosis as liver u/s does confirm cirrhosis. TSH scantly elevated at 4.51 - this is NOT the cause has had SPEP/UPEP in the past - no significant m-spike seen on prior studies B12 wnl folate wnl checked a copper & zinc level - both deficient - copper def could be causing or contributing to her cell line abnormalities peripheral smear done -- no evidence of myelodysplasia CBC with improvement/normal hematocrit and platelet count 11/25 (13) Cirrhosis: Plan: likely due to THOMSON compensated cont bumex ammonia wnl Plan Other chronic issues: History of gastric bypass. Consider EGD due to persistent nausea. Hypothyroidism - TSH this admission 4.51 - no change in Synthroid dose. TRUMAN intolerant of CPAP, mixed restrictive and obstructive lung disease HFpEF - compensated/not in exacerbation History of afib/flutter - on apixaban Morbid obesity with BMI of 37 Hypertension DVT proph - apixaban updated pt's at bedside 11/24 Admission and Anticipated Discharge Date Admission Date: November 16, 2023 Subjective L hip pain improved somewhat after aspiration yesterday has heartburn today has been nauseated today following pills and did not eat well Physical Exam 2 Physical Exam: PHYSICAL EXAMINATION Last 24h vital signs reviewed, see documentation in flowsheet General: comfortable appearing, no distress, lying flat, awake HEENT: Normocephalic, atraumatic, pupils round and equal, sclerae anicteric, no conjunctival injection, moist mucus membranes Lungs: Normal respiratory effort. Clear to auscultation bilaterally. No RRW Heart: Regular rate and rhythm, no murmurs. No JVD Abdomen: Soft, nondistended. Bowel sounds present. Extremities: Warm, dry, well-perfused. left lateral hip area nontender no erythema. LE with sarcopenia/atrophy especially LLE. No edema Neuro: Alert and oriented x 4, face symmetric, moves 4 extremities, global weakness especially bilateral lower extremities present Psych: Normal affect and behavior Results & Data Results & Data Vital Signs (Past 12 Hours) Vital Signs Temp Pulse Resp BP Pulse Ox O2 Del Method 11/27/23 14:24 37.0 C 82 17 147/76 H 93 Room Air 11/27/23 07:05 36.8 C 79 17 169/82 H 90 Room Air Laboratory Results 11/26/23 08:38 11/25/23 08:14 PG Care Time/CCT Total # of Minutes Spent Total Time Spent with Patient: Total time spent is greater than 50% in coordination of care (as documented) at patient's floor/unit and/or counseling patient: Coding Level of Care Code 20629 SUB INP/OBS CARE 2MIN Diagnoses Copper deficiency myeloneuropathy E61.0; G63; G99.2 Zinc deficiency E60 Muscle wasting and atrophy, not elsewhere classified, other site M62.58 Acute metabolic encephalopathy G93.41 Left hip pain M25.552 Diarrhea R19.7 Chronic kidney disease, stage 4 (severe) N18.4 Severe protein-calorie malnutrition E43 Osteomyelitis of coccyx M46.28 History of femur fracture Z87.81 Pressure ulcer of sacral region, stage 4 L89.154 Pancytopenia D61.818 Cirrhosis K74.60
[2023-11-27] MEDS: LORazepam 0.5 MG TAB PO PRN (17:44)
[2023-11-27] MEDS: PANTOprazole 40 MG TAB PO SCH (21:59)
[2023-11-27] MEDS: CALCIUM CARBONATE 500 MG CHEWABLE TAB PO SCH (22:00)
[2023-11-28] MEDS: MULTIVITAMIN CHEWABLE TAB PO SCH (09:55)
[2023-11-28] MEDS ORDERED: HYDROmorphone HCL 4 MG TAB PO PRN (15:08)
[2023-11-28] MEDS: HYDROmorphone HCL 2 MG TAB PO PRN (17:36)
[2023-11-28] MEDS: CALCIUM CARBONATE 500 MG CHEWABLE TAB PO PRN (17:50)
[2023-11-28] MEDS: GADOBUTROL 65ML VIAL IV ONE (18:40)
--- NOTE | 2023-11-28 19:09 | Hospitalist Progress Note ---
Date of Service November 28, 2023 Assessment & Plan (1) Copper deficiency myeloneuropathy: Plan: level - 65 (normal 70+) copper deficiency can cause denervation injury (which was seen on her femur MRI), CBC abnormalities, and a host of other issues. copper deficiency can also cause myopathy. She has had elevated CPKs intermittently over the last few months. her copper deficiency is likely from a combination of very poor nutrition for many months as well as gastric bypass status - especially the latter. copper deficiency is well documented in the literature surrounding bariatric surgery. Up-to-date suggests a 5-day course of IV copper replacement (2mg copper daily) if there is neurological involvement from copper deficiency which I believe is the case with Ms Arellano. day 4/5 IV copper plan for copper gluconate 2 mg po daily after discharge and recheck a copper level in 3-4 weeks, may need 3 mg. Must follow levels since copper overload can cause liver complications B1 level returned normal. Sent Vitamin E, vitamin B6 - pending Selenium deficiency - level is 80 (100-250). "Selenium deficiency results in skeletal muscle dysfunction and cardiomyopathy and has been implicated in mood disorders, impaired immune function, and macrocytosis" suggested replacement goal of >100 mcg/day. CUT OFF [place] is 55 and upper tolerable limit is 400 mcg/d. Overreplacement can cause toxicity. Not on hospital formulary but recommend supplementation as outpatient Zinc def - see below. Mild vitamin D deficiency - level was 24 - started oral supplement (2) Zinc deficiency: Plan: Will supplement with zinc sulfate 220mg daily x 14 days. This could be contributing to her diffuse dry skin, anorexia, etc. (3) Muscle wasting and atrophy, not elsewhere classified, other site: Plan: In 07/2023 CPK was mildly elevated (range: 473-753) CPK mildly high earlier this week (226) aldolase sent and pending holding statin --> sent LVO-ZYm-Pchrouolr inhibitor Ab -- pending sed rate/crp wnl -- reassuring, but doesn't rule out a primary muscle d/o repeat CRP improved from 2.55 down to 1.53 MRI brain negative discussed her care informally with Dr Segun Martínez from rheumatology he advised checking myositis specific 11 Ab panel -- pending he advised f/u with him post-discharge MRI left femur obtained - multiple findings, but "Severe atrophy and edema within the majority of the left pelvic and thigh musculature most pronounced at the hamstring muscles with associated edema. This favors denervation injury. A nonspecific myositis is not excluded but considered less likely" could be diabetic polyneuropathy contributing as well - has seen neuro in the past for this - neurology consult was done this admission & they advised outpatient EMG see above in #1 re: copper deficiency this could be contributing heavily to her clinical status reviewed [place] and [facility] charts - had c-spine CT a few years ago with no spinal stenosis noted. Has never had lumbar imaging. Will obtain Lspine MRI w/wo contrast (4) Acute metabolic encephalopathy: Plan: resolved By report had hallucinations and behavior change at SNF. CT head without acute findings. Sed rate/crp wnl. By 11/17 mental status was completely normal. MRI brain negative - no acute/subacute CVA or other abnormalities. No infectious etiology found. Could be a nutritional deficiency. Polypharmacy is another possible etiology but there have been no changes in her meds recently by report. (5) Left hip pain: Plan: Left hip/thigh pain extending to near the left knee. Evaluated during hospitalization in Jul 2023 and treated for hip wound (NOT intra-articular or prosthetic joint). per last ID note: # L hip subcutaneous collection s/p aspiration 08/08 cx neg # L hip wound infection - L hip swab WCx + MSSA and skin lesly, L hip arthrocentesis + Corynebacterium and skin lesly (per ortho low suspicion for joint infection) # h/o L femur fracture s/p repair 04/09/23 # L knee effusion s/p arthrocentesis w/ removal of 25 mL clear, serous fluid on 08/06 CRP only mildly elevated at 2.5 and ESR very low at 2. Hip x-rays unremarkable with intact hardware, no lucencies, etc. Seen by [facility] - no specific Rx recommended other than PT, OT, and pain control. Etiology of pain? Neuropathic? Other? Prior imaging of l-spine with severe L5-S1 disc disease but her pain does not extend below the left knee making L5 or S1 neuropathy highly unlikely. Her pain is severe to the pain it is leaving her bed-bound. Appreciate pain management consult -- no specific Rx advised. Checked a LLE venous doppler - NO DVT seen. MRI left femur with fluid collection present --> two subcutaneous fluid collections from left hip area aspirated by IR 11/25. gram stain negative culture pending - one with pinpoint growth Oxycontin 10mg BID started 11/22/23 for refractory pain and her pain is indeed improved with such change oxycodone IR which she feels is ineffective to hydromorphone po (6) Diarrhea: Plan: had such at [facility] -- resolved, then returned, c diff negative does not have a gall bladder -- added colestipol 1gm daily; diarrhea improved -no stools 3+ days, held colestipol (7) Chronic kidney disease, stage 4 (severe): Plan: CKD stage 4 - primary director of software engineering is Dr. Kang - [facility] Has AVF RUE Cr improved and much better than recent baseline. Cr 1.2 (typically high 1s to mid 2s) (8) Severe protein-calorie malnutrition: Plan: at least 12 to as much as 15/16 kg of weight loss in the last year albumin has been <2 since fall 2022 very poor oral intake chronically at [facility] - it is true anorexia some of the low albumin likely due to cirrhosis but doesn't explain all of it checked a cortisol level - wnl copper, zinc, selenium levels have returned low -- see above of note - u/a without significant proteinuria nutrition consult appreciated cont MVI would benefit from ongoing nutrition management upon discharge [facility] has supervisor cytogenetic laboratory on campus but uncertain of their names Could refer to [facility] [place] [facility] to one of their clinical nutrition providers (9) Osteomyelitis of coccyx: Plan: obtained MRI pelvis report completed 11/15/23 MRI showed "sacral decubitus ulcer + underlying osteomyelitis of coccyx" what argues against chronic osteomyelitis is that her sed rate and crp are very normal further, gen surgery has seen, and they report her sacral wound is much better in comparison to last fall when Dr Payne performed debridement it is possible that the bony findings on MRI is simply bony remodeling rather than true infection I corresponded with gen surg - no plans for surgical intervention of the wound or the coccyx itself ID consult obtained - they advise against any IV or PO abx therapy at this time as well cont recs by wound care team (wound vac has been discontinued) appreciate wound care & gen surg assistance needs better nutrition needs zinc deficiency reversed checking other nutritional labs (10) History of femur fracture: Plan: left hip - 03/2023 - s/p ORIF by Dr Eric Childress see above also noted to have L hamstring tear on femur MRI - discussed with ortho Dr. Childress - WBAT and intervention not advised (11) Pressure ulcer of sacral region, stage 4: Plan: present on admission started fall of 2022 s/p debridement 05/06/[address] Payne recent Rx - woundvac this admission - NO evidence of acute wound infection appreciate formal general surgery consult this admission they recommend ongoing wound care/wound VAC as noted above CRP only 2.5-->1.53 and ESR is 2 which argues against acute osteomyelitis or significant wound infection wound vac discontinued this admission per recommendations of wound care nurse (12) Pancytopenia: Plan: possibly related to cirrhosis as liver u/s does confirm cirrhosis. TSH scantly elevated at 4.51 - this is NOT the cause has had SPEP/UPEP in the past - no significant m-spike seen on prior studies B12 wnl folate wnl checked a copper & zinc level - both deficient - copper def could be causing or contributing to her cell line abnormalities peripheral smear done -- no evidence of myelodysplasia CBC with improvement/normal hematocrit and platelet count 11/25 (13) Cirrhosis: Plan: likely due to THOMSON compensated cont bumex ammonia wnl Plan Other chronic issues: History of gastric bypass. Hx esophagitis - resumed bid PPI, though may aggravate micronutrient deficiencies. Consider EGD due to persistent nausea. Hypothyroidism - TSH this admission 4.51 - no change in Synthroid dose. TRUMAN intolerant of CPAP, mixed restrictive and obstructive lung disease HFpEF - compensated/not in exacerbation History of afib/flutter - on apixaban Morbid obesity with BMI of 37 Hypertension DVT proph - apixaban updated pt's at bedside 11/24 Admission and Anticipated Discharge Date Admission Date: November 16, 2023 Subjective doing ok today, L hip pain present but improved after aspiration, no nausea today and ate well nausea is intermittent and she relates it to taking pills Physical Exam 2 Physical Exam: PHYSICAL EXAMINATION Last 24h vital signs reviewed, see documentation in flowsheet General: awake lying on side in bed HEENT: Normocephalic, atraumatic, pupils round and equal, sclerae anicteric, no conjunctival injection, moist mucus membranes Lungs: Normal respiratory effort. Heart: deferred Abdomen: Soft, nondistended. Extremities: Warm, dry, well-perfused. left lateral hip area mild TTP posterior to greater trochanter no erythema. LE with sarcopenia/atrophy especially LLE. No edema Neuro: Alert and oriented x 4, face symmetric, moves 4 extremities, global weakness especially bilateral lower extremities present Psych: Normal affect and behavior Results & Data Results & Data Vital Signs (Past 12 Hours) Vital Signs Temp Pulse Pulse Resp BP Pulse Ox O2 Del Method 11/28/23 16:00 36.8 C 78 16 155/79 H 92 Room Air 11/28/23 08:00 36.7 C 88 16 150/78 H 92 Room Air 11/28/23 07:25 Room Air Laboratory Results 11/26/23 08:38 11/25/23 08:14 PG Care Time/CCT Total # of Minutes Spent Total Time Spent with Patient: I personally spent: 50 minutes today on clinical care activities including: reviewing chart notes and vital signs reviewing labs [facility] bath design sales consultant(s) - Ortho discussion with career development engineer examining and counseling the patient researching appropriate supplementation levels for copper, selenium writing orders documentation Coding Level of Care Code 13628 SUB INP/OBS CARE 3/50MIN Diagnoses Copper deficiency myeloneuropathy E61.0; G63; G99.2 Zinc deficiency E60 Muscle wasting and atrophy, not elsewhere classified, other site M62.58 Acute metabolic encephalopathy G93.41 Left hip pain M25.552 Diarrhea R19.7 Chronic kidney disease, stage 4 (severe) N18.4 Severe protein-calorie malnutrition E43 Osteomyelitis of coccyx M46.28 History of femur fracture Z87.81 Pressure ulcer of sacral region, stage 4 L89.154 Pancytopenia D61.818 Cirrhosis K74.60
--- NOTE | 2023-11-28 20:58 | Magnetic Resonance Report ---
Exam(s): MRI L SPINE W/WO Contrast IV Amt: 10.5ml gadavist EXAM: MR Lumbar Spine Without and With Intravenous Contrast CLINICAL HISTORY: Reason for exam: LLE myelopathy. TECHNIQUE: Magnetic resonance images of the lumbar spine without and with intravenous contrast in multiple planes. Mild to moderate motion artifact. CONTRAST: Patient received 10.5ml gadavist of IV contrast COMPARISON: CT abdomen pelvis 12/01/20. FINDINGS: Vertebrae: Trace L4-5 anterolisthesis, chronic. No marrow edema, compression deformity, or retropulsion. No discitis or osteomyelitis. No abnormal enhancement. Conus: No abnormal signal or enhancement. Soft tissues: No psoas or epidural abscess/hematoma. No retroperitoneal mass or enhancement. Incidental cortical cysts of the kidneys bilaterally, which are not fully evaluated. DISCS/SPINAL CANAL/NEURAL FORAMINA: L1-L2: Mild disc bulge and moderate facet hypertrophy. L2-L3: Mild disc bulge. Moderate facet hypertrophy. L3-L4: Mild central spinal stenosis due to severe facet hypertrophy and moderate disc bulge. Moderate right foraminal stenosis. L4-L5: Mild disc space narrowing, severe facet hypertrophy. No significant disc bulge, central or foraminal stenosis. L5-S1: Severe disc space narrowing, and moderate disc and osteophyte in the ventral CSF, stable. OTHER: No isolated disc herniation. Other than L3-4, central spinal canal is patent. IMPRESSION: 1. Mild central spinal stenosis and moderate right foraminal stenosis at L3-4, degenerative. 2. Trace L4-5 anterolisthesis due to severe facet hypertrophy. 3. No abnormal enhancement, disc herniation, other/significant central spinal stenosis, epidural abscess/hematoma, abnormal cord signal, or discitis/osteomyelitis. Electronically signed by: Romy Woodruff M.D. 11/28/23 20:57 PM
[2023-11-29 07:56] LABS: Hemoglobin 10.2 g/dl (12.0-16.0); Mean Corpuscular Hemoglobin 25.8 pg (25.0-34.0); Mean Corpuscular Volume 86.1 fL (80.0-100.0); Mean Platelet Volume 11.7 fL (9.4-12.4); Platelet Count 139 K/uL (130-400); RDW Coefficient of Variation 17.6 % (11.5-14.5); RDW Standard Deviation 54.4 fL (36.4-46.3); Red Blood Count 3.95 M/uL (4.20-5.40); White Blood Count 4.56 K/ul (4.8-10.8)
[2023-11-29 08:08] LABS: Calcium 7.4 mg/dl (8.6-10.3); Potassium 3.9 mmol/L (3.5-5.1)
[2023-11-29 08:14] LABS: BUN Creatinine Ratio 26.6 (10-20); Creatinine Clr Calc Pharmacy 54.8 ml/min; Est GFR (African American) 50.8 ml/min; Est GFR (Non-African American) 43.8 ml/min
[2023-11-29] MEDS: CHOLECALCIFEROL 25 MCG (1000 UNITS) TAB PO SCH (08:36)
[2023-11-29] MEDS: HYDROmorphone INJ 0.5 MG/0.5 ML SYR IV PRN (13:02)
--- NOTE | 2023-11-29 17:35 | Discharge Summary ---
Date of Service November 29, 2023 Admission HPI Per Admitting Provider Patient brought in from [facility] for confusion and hallucinations. In the ED patient is reportedly speaking incorrect/nonsensical things. Work up limited by ability to obtain IV access. CT Head without acute bleed. Upon my interview patient is speaking coherently and accurately. 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 Patient with urinary frequency and watery diarrhea starting about 5 days prior. She also started having increased left hip pain around that time. Patient has been stating for days that she needs to go to the ED. She has been concerned about her left hip wound and believes she has an infection, but her concerns were not taken seriously. Patient was 302-ed by her family and initially brought to the [facility]. Patient then identified as a medical patient and moved to . Patient has had a non-healing wound for months. Currently on wound vac. Was seen outpatient 11/13 and had an MRI the following day to evaluate for osteomyelitis. The results have not been reviewed with her at this time. The patient denies any fevers, chills, CP, nausea, abdominal pain, pain with urination, or calf pain. Patient does note that she was having increased work of breathing and was initially on oxygen when she arrived to the ED. SOB has resolved. Able to obtain MRI 11/14 which shows signs of osteomyelitis of the coccyx. Principal Diagnosis copper selenium and zinc deficiency, pancytopenia, left hip fluid collection, acute metabolic encephalopathy, chronic sacral decubitus wound Discharge Exam PHYSICAL EXAMINATION Last 24h vital signs reviewed, see documentation in flowsheet General: awake lying in bed HEENT: Normocephalic, atraumatic, pupils round and equal, sclerae anicteric, no conjunctival injection, moist mucus membranes Lungs: Normal respiratory effort. Heart: deferred Abdomen: Soft, nondistended. Extremities: Warm, dry, well-perfused. LE with sarcopenia/atrophy especially LLE. No edema Neuro: Alert and oriented x 4, face symmetric, moves 4 extremities, global weakness especially bilateral lower extremities present Psych: Normal affect and behavior Discharge Data Allergies Allergy/AdvReac Type Severity Reaction Status Date / Time Iodinated Contrast Media Allergy Unknown Unknown Verified 11/16/23 23:13 [Iodinated Contrast- Oral and IV Dye] promethazine AdvReac Intermediate BROKEN Verified 11/16/23 23:13 CAPILLARIES FACE Consultations 11/16/23 21:55 ED Decision to Admit Stat 11/17/23 00:23 Consult General Surgery Routine 11/18/23 08:57 Consult Orthopedic Surgery Routine 11/19/23 11:00 Consult Infectious Diseases Routine 11/19/23 18:51 Consult Pain Management Routine 11/22/23 09:34 Consult Neurology Routine Ordered Studies 11/16/23 18:04 CT head/brain wo con Stat 11/19/23 18:12 US venous doppler LE LT Routine US venous doppler UE RT Routine 11/20/23 15:57 MR brain wo con Routine 11/20/23 20:43 US liver Routine 11/22/23 07:00 MRI Femur [MR femur LT wo con] Routine 11/26/23 09:00 IR punc asp abs/yamileth/bulla/cys Routine 11/28/23 15:03 MR lumbar spine wo/w con Routine Head CT 11/16/23 18:04 CT head/brain wo con CLINICAL HISTORY: confusion Technique: Contiguous axial CT images of the head were acquired from the base of the skull to the vertex without intravenous contrast administration. Images were viewed in brain, subdural and bone windows. Automated dose lowering techniques and/or adjustment according to patient size were utilized for this exam. Comparison: Comparison is made to CT head 07/29/2023 Findings: The ventricles, basal cisterns, and cerebral sulci are normal. There is no acute intracranial hemorrhage or evidence of acute territorial infarction. Neither mass effect, shift of the midline structures, nor abnormal extra-axial fluid collections are shown. Mild age-related changes are seen. Postsurgical changes are seen in the bilateral axilla. Imaged portions of the paranasal sinuses and mastoid air cells are clear. The orbits appear normal. There are no acute fractures of the calvaria or scalp swelling. Impression: No acute intracranial hemorrhage, no evidence of acute territorial infarction or other acute intracranial disease process. ACT 112: Negative or not required by law. Electronically signed by: Farhan Higgins M.D. 11/16/2023 10:20 PM Hip X-Ray 11/17/23 12:01 XR hip LT min 2V CLINICAL HISTORY: hip pain TECHNIQUE: 2 views of the left hip and single frontal view of the pelvis were obtained. Comparison: Comparison is made to left hip radiograph 07/30/2023 and MRI left hip 08/13/[address] left hip 07/30/2023 FINDINGS: There is no evidence of an acute fracture. Total hip arthoplasty hardware is seen without perihardware lucency or hardware fracture. Soft tissue swelling is seen. IMPRESSION: No radiographic evidence of bony erosion is or acute fracture. Soft tissue swelling is again seen. ACT 112: Negative or not required by law. Electronically signed by: Farhan Higgins M.D. 11/17/2023 2:03 PM Venous Doppler Study 11/19/23 18:12 ULTRASOUND LEFT LOWER EXTREMITY VENOUS CLINICAL HISTORY: Left thigh pain. COMPARISON STUDY: Bilateral lower extremity venous ultrasound dated 10/30/2022. TECHNIQUE: Real-time, grayscale, and color Doppler sonography of the deep veins of the left lower extremity was performed from the inguinal crease to the calf. Compression and augmentation were utilized. FINDINGS: There is no sonographic evidence of deep venous thrombosis identified in the left lower extremity. The common femoral, superficial femoral, and popliteal veins are patent and normally compressible. The greater saphenous vein and the profunda femoris vein at the junction with the common femoral vein are clear. The visualized calf veins are patent. IMPRESSION: There is no sonographic evidence of deep venous thrombosis identified in the left lower extremity. ACT 112: Negative or not required by law. Electronically signed by: Bryn Jose M.D. 11/20/2023 6:48 AM Venous Doppler Study 11/19/23 18:12 ULTRASOUND RIGHT UPPER EXTREMITY VENOUS CLINICAL HISTORY: Right upper extremity edema. COMPARISON STUDY: Right upper extremity venous ultrasound dated 06/14/2023. TECHNIQUE: Real-time, grayscale, and color Doppler sonography of the deep veins of the right upper extremity is performed. Compression and augmentation were utilized. FINDINGS: There is no sonographic evidence of deep venous thrombosis identified in the right upper extremity. The right internal jugular, axillary, and brachial veins are patent and normally compressible. Normal venous waveforms and augmentation are seen within the right subclavian vein. The cephalic and basilic veins are clear. The visualized radial and ulnar veins are patent. Soft tissue edema is noted in the right upper extremity. A fistula in the forearm between the radial artery and basilic vein appears patent. IMPRESSION: There is no sonographic evidence of deep venous thrombosis identified in the right upper extremity. ACT 112: Negative or not required by law. Electronically signed by: Bryn Jose M.D. 11/20/2023 6:40 AM Brain MRI 11/20/23 15:57 MR brain wo con HISTORY: 63 years-old Female inability to walk, muscle wasting; eval CVA, etc acute blurry vision with strokelike symptoms COMPARISON: Head CT 11/16/2023 TECHNIQUE: Multiplanar multisequence MRI of the brain was obtained without IV contrast. FINDINGS: No restricted diffusion. Midline structures appear unremarkable. Partially empty sella. No acute intracranial hemorrhage, midline shift, abnormal extra-axial collection, hydrocephalus or intra-axial mass. The volume and signal characteristics of the brain parenchyma are within normal limits for patient age. Minimal T2/FLAIR hyperintense foci throughout the white matter likely represent chronic microvascular ischemic disease. Cerebral venous sinuses and major arterial flow voids appear patent. Skull, o rbits and soft tissues are unremarkable. Trace left and moderate right mastoid effusions. Prior bilateral injury.. Mucosal thickening of the sphenoid sinuses. IMPRESSION: No acute intracranial abnormality. No acute or subacute infarct. ACT 112: Negative or not required by law. The above report was generated using voice recognition software. It may contain grammatical, syntax or spelling errors. Electronically signed by: Timothy Tracy M.D. 11/20/2023 6:55 PM Liver Ultrasound 11/20/23 20:43 ABDOMINAL ULTRASOUND, RIGHT UPPER QUADRANT HISTORY: Acute right upper quadrant abdominal pain with possible chronic liver disease cirrhosis?. COMPARISON: Renal ultrasound 06/10/2022, CT abdomen and pelvis 12/01/2020 FINDINGS: Pancreas: The pancreas demonstrates a normal echotexture. Liver: Heterogeneous hepatic parenchyma with marginal nodularity. No hepatic mass identified. Trace perihepatic ascites. Gallbladder: Cholecystectomy. CBD: 0.6 cm. Right kidney: No hydronephrosis. IMPRESSION: 1. Cirrhosis without hepatic mass identified. 2. Trace perihepatic ascites. 3. Cholecystectomy. ACT 112: Negative or not required by law. Electronically signed by: Timothy Tracy M.D. 11/21/2023 7:08 AM Femur MRI 11/22/23 07:00 MR femur LT wo con HISTORY: Left thigh pain. h/o infected seromas; hip/thigh pain; elevated CPK TECHNIQUE: Multiplanar multisequence MRI of the left femur was performed without contrast. COMPARISON STUDY: Left hip radiograph 11/17/2023. Left hip MRI 08/07/2023. FINDINGS: There is again noted a left total arthroplasty. This results in metallic artifact within the left hip and proximal left femur resulting in suboptimal evaluation. There is normal marrow signal intensity seen within the distal left femur. No definite acute fracture or dislocation within the left femur. There is diffuse subcutaneous edema within the left thigh. There is significant fatty atrophy of the left pelvic and left thigh musculature most pronounced within the hamstring muscles. There is associated edema left pelvic and thigh musculature. There is a focal fluid collection posterior to the proximal left femur best seen on axial image 18 and sagittal image 24. This measures approximately 7.6 x 4.5 x 1.7 cm. This is deep to the incision site at the left hip. This is adjacent to but does not clearly abut the posterior proximal femur. This is indeterminate and could represent a postoperative seroma. This is similar to the prior study. Secondary infection would be difficult to exclude. There is a small left knee effusion. There is a full- thickness tear at the proximal attachment of the hamstring tendon complex which demonstrates approximately 7 cm of retraction. The torn and retracted hamstring tendon complexes best seen on axial image 30 of 44. IMPRESSION: 1. Suboptimal evaluation of the left hip and proximal left femur due to the artifact from the left hip prosthesis. 2. There is a focal fluid collection posterior to the proximal left femur which measures approximately 7.6 x 4.5 x 1.7 cm. This is deep to the incision site at the left hip. This is adjacent to but does not clearly abut the posterior proximal femur. This is indeterminate and could represent a postoperative seroma. This is similar to the prior study. Secondary infection would be difficult to exclude. 3. Severe atrophy and edema within the majority of the left pelvic and thigh musculature most pronounced at the hamstring muscles with associated edema. This favors denervation injury. A nonspecific myositis is not excluded but considered less likely. 4. Extensive subcutaneous edema within the left hip/thigh. 5. Small left knee effusion. 6. There is a full-thickness tear at the proximal attachment of the hamstring tendon complex which demonstrates approximately 7 cm of retraction. ACT 112: Negative or not required by law. Electronically signed by: Kj Zimmer M.D. 11/22/2023 2:43 PM Puncture Aspiration 11/26/23 09:00 Ultrasound guided left hip fluid collection aspiration INDICATION: 4 cm lateral subcutaneous left hip fluid collection COMPARISON: MRI left femur 11/22/2023 PROCEDURE: Procedure and risks were explained. Informed consent was obtained. A final timeout was completed. The left lateral hip was prepped and draped in st erile fashion. 1% lidocaine was utilized for skin anesthesia. Utilizing ultrasound guidance, a 5 Palestinian safety centesis catheter was advanced into the complex appearing left lateral subcutaneous hip fluid collection. Ultrasound images were obtained. 2 aspirates were obtained yielding approximately 2 mL of purulent appearing bloody fluid and another aspirated yielding approximately 7 mL of cloudy yellow fluid. This was sent to the lab for culture analysis. The catheter was removed and Band-Aid applied. The patient tolerated the procedure well. IMPRESSION: Ultrasound-guided left hip fluid collection aspiration as above. Performed, dictated, and signed by George Craven PA-C; to be co-signed by Dr. Timothy Tracy. Electronically signed by: Timothy Tracy M.D. 11/26/2023 2:33 PM Lumbar Spine MRI 11/28/23 15:03 Exam(s): MRI L SPINE W/WO Contrast IV Amt: 10.5ml gadavist EXAM: MR Lumbar Spine Without and With Intravenous Contrast CLINICAL HISTORY: Reason for exam: LLE myelopathy. TECHNIQUE: Magnetic resonance images of the lumbar spine without and with intravenous contrast in multiple planes. Mild to moderate motion artifact. CONTRAST: Patient received 10.5ml gadavist of IV contrast COMPARISON: CT abdomen pelvis 12/01/20. FINDINGS: Vertebrae: Trace L4-5 anterolisthesis, chronic. No marrow edema, compression deformity, or retropulsion. No discitis or osteomyelitis. No abnormal enhancement. Conus: No abnormal signal or enhancement. Soft tissues: No psoas or epidural abscess/hematoma. No retroperitoneal mass or enhancement. Incidental cortical cysts of the kidneys bilaterally, which are not fully evaluated. DISCS/SPINAL CANAL/NEURAL FORAMINA: L1-L2: Mild disc bulge and moderate facet hypertrophy. L2-L3: Mild disc bulge. Moderate facet hypertrophy. L3-L4: Mild central spinal stenosis due to severe facet hypertrophy and moderate disc bulge. Moderate right foraminal stenosis. L4-L5: Mild disc space narrowing, severe facet hypertrophy. No significant disc bulge, central or foraminal stenosis. L5-S1: Severe disc space narrowing, and moderate disc and osteophyte in the ventral CSF, stable. OTHER: No isolated disc herniation. Other than L3-4, central spinal canal is patent. IMPRESSION: 1. Mild central spinal stenosis and moderate right foraminal stenosis at L3-4, degenerative. 2. Trace L4-5 anterolisthesis due to severe facet hypertrophy. 3. No abnormal enhancement, disc herniation, other/significant central spinal stenosis, epidural abscess/hematoma, abnormal cord signal, or discitis/osteomyelitis. Electronically signed by: Romy Woodruff M.D. 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 Encephalopathy cleared rapidly and no infection or other specific cause was found, potentially related to polypharmacy and multiple sedating medications were initially held. Evaluated by general surgeon, infectious disease, wound nurse specialist and not felt to have sacral osteomyelitis - see below. Evaluated for severe chronic L hip pain - ongoing 6 months since femur fracture, atrophy and denervation of LE. Found to have micronutrient deficiencies especially copper. Also seen by orthopedics pain service and neurology. L spine MRI unrevealing. Femur MRI with persistent fluid collections (previously aspirated with negative cultures), once again aspirated by IR - 2 contiguous pockets. Only pinpoint growth from one of the fluid collections thus far (at 72h) so unlikely infectious process, culture still pending. Had intermittent nausea but no nausea for 48h prior to discharge. Copper deficiency: level - 65 (normal 70+) copper deficiency can cause denervation injury (which was seen on her femur MR I), CBC abnormalities, and a host of other issues. copper deficiency can also cause myopathy. She has had elevated CPKs intermittently over the last few months. her copper deficiency is likely from a combination of very poor nutrition for many months as well as gastric bypass status - especially the latter. copper deficiency is well documented in the literature surrounding bariatric surgery. Up-to-date suggests a 5-day course of IV copper replacement (2mg copper daily) if there is neurological involvement from copper deficiency which I believe is the case with Ms Arellano. Treated with 2 mg IV copper for five consecutive days in hospital plan for copper gluconate 2 mg po daily after discharge and recheck a copper level in 3-4 weeks, may need 3 mg. Must follow levels since copper overload can cause liver complications Selenium deficiency - level is 80 (100-250). "Selenium deficiency results in skeletal muscle dysfunction and cardiomyopathy and has been implicated in mood disorders, impaired immune function, and macrocytosis" suggested replacement goal of >100 mcg/day. ENGINEERING AIDE is 55 and upper tolerable limit is 400 mcg/d. Overreplacement can cause toxicity. Not on hospital formulary but recommend supplementation as outpatient B1 level returned normal. Sent Vitamin E, vitamin B6 - pending Zinc deficiency - see below. Mild vitamin D deficiency - level was 24 - continue oral supplement (2) Zinc deficiency: Will supplement with zinc sulfate 220mg daily x 14 days. This could be contributing to her diffuse dry skin, anorexia, etc. -following that, low maintenance dose (3) Muscle wasting and atrophy, not elsewhere classified, other site: In 07/2023 CPK was mildly elevated (range: 473-753) CPK mildly high earlier this week (226) aldolase sent and pending holding statin --> sent SLB-YPm-Janblpyww inhibitor Ab -- pending stopped fenofibrate sed rate/crp wnl -- reassuring, but doesn't rule out a primary muscle d/o repeat CRP improved from 2.55 down to 1.53 MRI brain negative discussed her care informally with Dr Segun Martínez from rheumatology he advised checking myositis specific 11 Ab panel -- resulted negative he advised f/u with him post-discharge MRI left femur obtained - multiple findings, but "Severe atrophy and edema within the majority of the left pelvic and thigh musculature most pronounced at the hamstring muscles with associated edema. This favors denervation injury. A nonspecific myositis is not excluded but considered less likely" could be diabetic polyneuropathy contributing as well - has seen neuro in the past for this - neurology consult was done this admission & they advised outpatient EMG see above in #1 re: copper deficiency this could be contributing heavily to her clinical status reviewed [place] and [facility] charts - had c-spine CT a few years ago with no spinal stenosis noted. Has never had lumbar imaging. obtained Lspine MRI w/wo con trast - mod R L3-4 foraminal stenosis doesn't correlate with pain symptoms, only mild central spinal stenosis (4) Acute metabolic encephalopathy: resolved By report had hallucinations and behavior change at SNF. CT head without acute findings. Sed rate/crp wnl. By 11/17 mental status was completely normal. MRI brain negative - no acute/subacute CVA or other abnormalities. No infectious etiology found. Could be related to polypharmacy or a nutritional deficiency. (5) Left hip pain: Left hip/thigh pain extending to near the left knee. Evaluated during hospitalization in Jul 2023 and treated for hip wound (NOT intra-articular or prosthetic joint). per last ID note: # L hip subcutaneous collection s/p aspiration 08/08 cx neg # L hip wound infection - L hip swab WCx + MSSA and skin lesly, L hip arthrocentesis + Corynebacterium and skin lesly (per ortho low suspicion for joint infection) # h/o L femur fracture s/p repair 04/09/23 # L knee effusion s/p arthrocentesis w/ removal of 25 mL clear, serous fluid on 08/06 CRP only mildly elevated at 2.5 and ESR very low at 2. Hip x-rays unremarkable with intact hardware, no lucencies, etc. Seen by [facility] [place] Ortho - no specific Rx recommended other than PT, OT, and pain control. WBAT and did not recommend intervention for the hamstring tear. Checked a LLE venous doppler - NO DVT seen. Lspine MRI unremarkable Femur MRI - with fluid collection present --> two subcutaneous fluid collections from left hip area aspirated by IR 11/25. gram stain negative culture pending - one with pinpoint growth at 72h, pending Her pain is severe to the pain it is leaving her bed-bound. Oxycontin 10mg BID started 11/22/23 for refractory pain and her pain is indeed improved with such, at least in the short term (6) Diarrhea: had such at [facility] -- resolved, then returned, c diff negative does not have a gall bladder -- added colestipol 1gm daily; diarrhea improved -no stools 3+ days, held colestipol. (7) Chronic kidney disease, stage 4 (severe): CKD stage 4 - primary director of corporate sponsorships is Dr. Kang - [facility] [place] Nephrology Has AVF RUE Cr improved and much better than recent baseline. Cr 1.2 (typically high 1s to mid 2s) (8) Severe protein-calorie malnutrition: at least 12 to as much as 15/16 kg of weight loss in the last year albumin has been <2 since fall 2022 very poor oral intake chronically at SNF - it is true anorexia some of the low albumin likely due to cirrhosis but doesn't explain all of it checked a cortisol level - wnl copper, zinc, selenium levels have returned low -- see above of note - u/a without significant proteinuria nutrition consult appreciated cont MVI, protein supplement would benefit from ongoing nutrition management upon discharge [facility] has vinyl cutter on campus but uncertain of their names Could refer to [facility] to one of their clinical nutrition providers -transportation would be prohibitively difficult, but perhaps there is a telemedicine consult available (9) Osteomyelitis of coccyx: (10) History of femur fracture: left hip - 03/2023 - s/p ORIF by Dr Eric Childress see above also noted to have L hamstring tear on femur MRI - discussed with ortho Dr. Childress - WBAT and intervention not advised (11) Pressure ulcer of sacral region, stage 4: present on admission started fall of 2022 s/p debridement 05/06/[address] Payne recent Rx - woundvac this admission - no evidence of acute wound infection obtained MRI pelvis report completed 11/15/23 MRI showed "sacral decubitus ulcer + underlying osteomyelitis of coccyx" what argues against chronic osteomyelitis is that her sed rate and crp are very normal further, gen surgery has seen, and they report her sacral wound is much better in comparison to last fall when Dr Panye performed debridement it is possible that the bony findings on MRI is simply bony remodeling rather than true infection I corresponded with gen surg - no plans for surgical intervention of the wound or the coccyx itself ID consult obtained - they advise against any IV or PO abx therapy at this time as well cont recs by wound care team (wound vac has been discontinued) appreciate wound care & gen surg assistance needs better nutrition needs zinc deficiency reversed (12) Pancytopenia: possibly related to cirrhosis as liver u/s does confirm cirrhosis. TSH scantly elevated at 4.51 - this is NOT the cause has had SPEP/UPEP in the past - no significant m-spike seen on prior studies B12 wnl folate wnl checked a copper selenium & zinc level - all deficient - copper def could be causing or contributing to her cell line abnormalities peripheral smear done -- no evidence of myelodysplasia CBC with improvement/normal hematocrit and platelet count 6/11 (13) Cirrhosis: likely due to THOMSON compensated cont bumex ammonia wnl Plan Other chronic issues: History of gastric bypass. Hx esophagitis - resumed bid PPI, though may aggravate micronutrient deficiencies. Consider EGD due to persistent nausea. Hypothyroidism - TSH this admission 4.51 - no change in Synthroid dose. TRUMAN intolerant of CPAP, mixed restrictive and obstructive lung disease HFpEF - compensated/not in exacerbation History of afib/flutter - on apixaban Morbid obesity with BMI of 37 Hypertension DVT proph - apixaban Total Time Total Time Spent Total Time Spent (In Minutes): I personally spent: 65 minutes today on clinical care activities including: reviewing chart notes and vital signs reviewing labs discussion with tree care foreman examining and counseling the patient medication reconciliation, ordering prescriptions, discharge orders and instructions documentation Discharge Plan Discharge Items Patient Disposition: Transfer [facility] Reason For Visit: OSTEOMYELITIS Discharge Diagnosis: copper selenium and zinc deficiency, sacral decubitus wound, fluid collection soft tissue near left hip Activity: Resume your previous activity Weightbearing: Full weightbearing Non-emergency contact: Primary Care Provider Call non-emergency contact if: you have any medication questions and your symptoms worsen Follow-up/Referrals: William Lewis MD [Primary Care Provider] - Diet: Carb Consistent or DM2 Addtl Attending Provider Instructions: PT and OT evaluate and treat air overlay / pressure relief mattress wound care: To Sacrum wound : irrigate with saline using 35cc syringe and 18g blunt needle. Fill wound with Aquacel Ag and secure with Optifoam. Change daily and as needed if increased drainage, falls off or is soiled. 5 days of IV copper replacement given in hospital Copper gluconate supplement 2 mg po daily, recheck copper level in 3-4 weeks and adjust dosing accordingly Zinc supplement 220 mg daily x 14 days Selenium supplement 100 mcg/day Follow up with Dr. Martínez, rheumatology Schedule outpatient EMG testing of LLE Follow up with clinical four slide operator/campaign manager if possible Left thigh fluid collection near femur/hip aspirated by IR 11/25. Cultures pending - one has pinpoint growth. Previous cultures were skin lesly only statin held, HMG Co-A reductase inhibitor antibody pending CBC and BMP in 1-2 weeks Pending Studies at Discharge: Yes Stand-Alone Forms: My [facility] Skilled Items Patient informed of condition?: Yes DNR: No Discharge Level of Care: Skilled Communicable Disease: No Discharge Prognosis: Improving Lines: None Urinary Catheter: No Medications and DC Order Prescriptions: New copper gluconate 2 mg tablet 2 mg PO DAILY Qty: 1 0RF ferrous sulfate 325 mg (65 mg iron) Tablet,Delayed Release (Dr/Ec) 325 mg PO Q2D Qty: 0 0RF colestipol [Colestid] 1 gram Tablet 1 g PO DAILY@2200 PRN (Reason: diarrhea) Qty: 0 0RF trazodone 50 mg Tablet 25 mg PO HS Qty: 0 0RF zinc sulfate [Orazinc] 50 mg zinc (220 mg) Capsule 220 mg PO QAM 8 Days Qty: 36 0RF Rx Instructions: reduce to maintenance dosing after 8 days thiamine HCl (vitamin B1) 100 mg Tablet 100 mg PO QAM Qty: 0 0RF selenium 100 mcg tablet 100 mcg PO DAILY Qty: 1 0RF oxycodone [OxyContin] 10 mg tablet,oral only,ext.rel.12 hr 10 mg PO BID Qty: 14 0RF oxycodone 5 mg tablet 10 mg PO Q6H PRN (Reason: pain) Qty: 30 0RF Continued (DME) lancets [OneTouch UltraSoft Lancets] Misc See Rx Instructions .ROUTE .MEDSUPPLY Qty: 400 3RF Rx Instructions: test blood sugar 4 x daily (DME) blood sugar diagnostic Strip See Dose Instructions .ROUTE .MEDSUPPLY Qty: 300 3RF Dose Instruction: As directed Rx Instructions: test blood sugar 3 x daily. OneTouch ultra blue test strips. levothyroxine 50 mcg tablet 50 mcg PO DAILYBB Qty: 90 1RF Rx Instructions: take with 8 oz of water (DME) insulin syringe-needle U-100 [Easy Comfort Insulin Syringe] 0.5 mL 31 gauge x 5/16" syringe See Rx Instructions .ROUTE .MEDSUPPLY Qty: 400 3RF Rx Instructions: Use four times a day with insulin injection folic acid 1 mg tablet 1 mg PO QAM Qty: 90 3RF Retacrit 40,000 unit/mL solution 40,000 unit subcut UD 28 Days Qty: 28 6RF Rx Instructions: weekly on Wednesdays, hold for Hb 11 or higher bumetanide 2 mg tablet 2 mg PO QAM Hold Instructions: Resume on 05/24/23. metoprolol succinate 25 mg tablet extended release 24 hr 25 mg PO DAILY Qty: 90 3RF Eliquis 5 mg tablet 5 mg PO BID Qty: 60 2RF buspirone 15 mg tablet 15 mg PO BID cyanocobalamin (vitamin B-12) 2,500 mcg tablet 2,500 mcg PO 2XWK Rx Instructions: TUES & THURS ONLY diltiazem HCl 180 mg capsule,extended release 24 hr 180 mg PO DAILY multivitamin with iron Tablet 1 tab PO DAILY cholecalciferol (vitamin D3) 125 mcg (5,000 unit) capsule 125 mcg PO DAILY loperamide [Anti-Diarrheal (loperamide)] 2 mg capsule 2 mg PO TID PRN (Reason: Diarrhea) nystatin 100,000 unit/gram powder 1 applic topical DAILY PRN (Reason: .flare ups) ondansetron HCl 4 mg tablet 4 mg PO Q6H PRN (Reason: nausea and vomiting) acetaminophen [Tylenol] 325 mg capsule 650 mg PO QID PRN (Reason: Fever Or Pain) Rx Instructions: For pain 1-4 or fever > 100. Do not exceed 3000mg in 24 hrs fluvoxamine 100 mg tablet 100 mg PO QPM Rx Instructions: use with 50mg tablet pregabalin [Lyrica] 75 mg Capsule 75 mg PO BID pantoprazole 40 mg tablet,delayed release (DR/EC) 40 mg PO BID Qty: 60 5RF Rx Instructions: take daily calcium carbonate [Calcium 600] 600 mg calcium (1,500 mg) Tablet 600 mg PO DAILY lorazepam [Ativan] 0.5 mg Tablet 0.5 mg PO BID PRN (Reason: Anxiety) fluvoxamine 50 mg Tablet 50 mg PO QPM Held atorvastatin 80 mg tablet 80 mg PO HS Qty: 90 3RF Hold Instructions: Resume on 12/20/23. HMG CoA reductase inhibitor antibody test pending Discontinued trazodone 100 mg tablet 100 mg PO HS fluvoxamine 50 mg tablet 50 mg PO BID Rx Instructions: use with 100mg tablet oxycodone 5 mg capsule 5 mg PO Q6H PRN (Reason: pain) Rx Instructions: for pain level 5-7 docusate sodium [Colace] 100 mg Capsule 100 mg PO QAM fenofibrate 160 mg tablet 160 mg PO QAM Dakin's Solution 0.25 % Solution 1 applic TOPICAL DIRECTED Dakin's Solution 0.25 % Solution 1 applic TOPICAL DIRECTED Rx Instructions: clean sacral wound Discharge Orders: Discharge Order (Routine); Ordered 11/29/23 Ordered By: Latanya Reese/Other Patient Handouts: Preventing Deep Vein Thrombosis Admission Data Admit Date/Time: 11/16/23 22:25 Attending Provider: Latanya Diaz Admit Provider: Noemy Mukherjee Primary Care Provider: William Lewis V. 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
[2023-11-30 16:28] LABS: Alpha-Tocopherol 8.4 mg/L (5.7-19.9); Vitamin B6 8.5 ng/mL (2.1-21.7); Vitamin E Beta-Gam Tocopherol 1.6 mg/L (<=4.3)
== END 2023-11-29 13:31 | DRG 640 ==
LOC: ED 16:39 → SUATTDRO 22:25 → EDINP 22:25 → 3W 11-17 15:00

== ENCOUNTER 2024-03-04 09:54 | Inpatient (IN) ==
--- NOTE | 2024-03-04 10:07 | Emergency Department Note ---
Impression & Plan Sepsis, PATY (acute kidney injury), Abdominal wall cellulitis, Acute urinary retention, Hypomagnesemia ED Provider Note NAME: SHANTEL PAYAN AGE: 63 SEX: F : 1960 ARRIVES VIA: Ambulance INFORMANT: Patient, EMS ED PROVIDER(S): Joshua Suarez DO CHIEF COMPLAINT: Sepsis HPI: The patient is a 63-year-old female who presented to the emergency department by ambulance from a senior living. Apparently the patient has very severe abdominal wall cellulitis which is complicated with staphylococcal infection as well as fungal infection. She is being treated at her senior living but was sent to the emergency department today because of worsening symptoms. Reportedly she also had altered mental status and urinary retention but is refusing Giraldo catheter. She already has a history of chronic kidney disease and her creatinine was noted to be elevated. She had laboratory studies ordered today but they were unable to get the labs so she was sent to the emergency department for further evaluation. According to the prehospital personnel her blood pressure was low. ROS: See above HPI for pertinent positives & negatives. A total of 10 systems reviewed and were otherwise negative. PAST MEDICAL HISTORY: See Below PAST SURGICAL HISTORY: See Below FAMILY HISTORY: See Below SOCIAL HISTORY: See Below HOME MEDICATIONS: See Below ALLERGIES: See Below VITALS: See Below PHYSICAL EXAMINATION: GENERAL: The patient is listless and answers questions appropriately. She appears to be uncomfortable. EYES: The conjunctivae are clear. The pupils are round and reactive. EARS, NOSE, MOUTH AND THROAT: The nose is without any evidence of any deformity. NECK: The neck is nontender and supple. RESPIRATORY: Normal respiratory effort is noted there is no evidence of wheezing rhonchi or rales CARDIOVASCULAR: Regular rate and rhythm noted there no murmurs rubs or gallops normal S1 normal S2. GASTROINTESTINAL: The abdomen is soft. Abdomen is nontender. MUSCULOSKELETAL/EXTREMITIES: There is no evidence of gross deformity full range of motion is noted in the hips and shoulders. SKIN: Pedal edema was noted bilaterally. Skin was warm. There is severe abdominal wall cellulitis noted with skin breakdown in both groins. NEUROLOGIC: Patient is awake and oriented x3. Strength is symmetric. MEDICAL DECISION MAKING: The patient is a 63-year-old female who presented to the emergency department for an evaluation of abdominal pain. The patient has a history of abdominal wall cellulitis. This been complicated by very significant infection. The patient has infection all around her perineum as well as her lower abdomen. Because of this she appears to be in urinary retention. She is refusing a Giraldo catheter. She has some degree of uremia because this. The patient was hypotensive. She was treated with IV fluids and IV antibiotics. I discussed the patient's laboratory and radiographic studies with her. Eventually she did agree to a Giraldo catheter. Vital signs were reassuring. I discussed her condition with the on-call [facility]. They have agreed to evaluate the patient in the emergency department for further management and disposition. Triage Nursing notes reviewed. Prior medical records reviewed Vital Signs: reviewed and remarkable for hypotension and tachycardia. Differential diagnosis: Cellulitis, abscess, MRSA infection, DVT, necrotizing fasciitis, dermatitis, drug eruption, allergic reaction, as well as other pathologies. ER treatment provided: See below Diagnostics interpreted by me: ECG: EKG was obtained in the emergency department. My interpretation is atrial fibrillation at 89 bpm. Poor R wave progression was noted. Low voltage was noted throughout. This was compared to a tracing from November 16, 2023. No changes were noted. Cardiac Monitoring: An order was placed for continuous cardiac monitoring. The monitor shows a rate of 90 bpm with atrial fibrillation. Laboratory studies: As stated above and show below. Imaging studies: See below. Radiographic imaging was reviewed by myself Consultation(s): I discussed this case with Dr. Herron who is on-call for the [facility]. ED COURSE: Procedures: Due to the patient's poor IV access I placed an 18-gauge peripheral IV in the patient's right external jugular vein. This was placed using ultrasound. Blood was withdrawn and sent to the lab. Critical Care: I have personally spent greater than 45 minutes of critical care time in the direct management of this patient. This includes bedside care, interpretation of diagnostic studies, and testing, discussion with consultants, patient, and family members, and other required patient management activities. This 45 minutes is in excess of all separately billable procedures. Past Med/Surg History Problem List (Updated 03/04/24 @ 11:34 by Joshua Suarez DO) Hypomagnesemia (Acute) Acute urinary retention (Acute) Abdominal wall cellulitis (Acute) PATY (acute kidney injury) (Acute) Sepsis (Acute) Zinc deficiency Copper deficiency myeloneuropathy Cirrhosis Muscle wasting and atrophy, not elsewhere classified, other site Pancytopenia Pressure ulcer of sacral region, stage 4 Severe protein-calorie malnutrition Left hip pain Effusion, left knee MSSA (methicillin susceptible Staphylococcus aureus) infection Elevated CK Elevated troponin (Acute) Wandering atrial pacemaker Urinary retention Constipation Hyperkalemia Abnormal rhythmic movement of tongue Tear of right hamstring Hamstring tendinitis Piriformis syndrome of right side History of colon polyps Diabetic nephropathy with proteinuria Fatty (change of) liver, not elsewhere classified Diastolic CHF S/P shoulder replacement Osteoarthritis of left knee Foot drop Idiopathic polyneuropathy Hypercholesterolemia Atrial fibrillation (Acute) Restrictive lung disease secondary to obesity Type 2 diabetes mellitus Restrictive lung disease COPD (chronic obstructive pulmonary disease) (Chronic) Obsessive compulsive disorder (Chronic) Left ventricular hypertrophy (Chronic) Diabetic nephropathy (Chronic) Anemia (Chronic) HTN (hypertension) (Chronic) Acute kidney injury Swelling of right upper extremity Dizziness Atrial flutter Vitamin D deficiency Hyperlipemia (Chronic) Hypothyroidism (Chronic) Chronic low back pain (Chronic) Anxiety and depression (Chronic) Arthralgia of multiple sites (Chronic) Claustrophobia (Chronic) Diabetic peripheral neuropathy (Chronic) Diabetic retinopathy, nonproliferative (Chronic) 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 Per [facility] pulm 12/2019, "fairly stable from a pulmonary perspective. She is short of breath with any exertion, however a large part of this is likely related to obesity. Pulmonary functions done 1 year ago showed only a mild restrictive pattern. Diffusion was slightly decreased to 66%. One year ago she did have a normal arterial blood gas with no evidence of CO2 retention." Using PRN 3L, mostly using with exertion, not using every day. Nasal septal deviation (Chronic) Nocturnal hypoxia (Chronic) 2-3L N/C - during night Nontoxic multinodular goiter (Chronic) TRUMAN (obstructive sleep apnea) PRESCRIBED BIPAP-CAN'T TOLERATE-CLAUSTROPHOBIC Anemia due to chronic kidney disease Chronic kidney disease, stage 4 (severe) Medical History History of femur fracture (04/08/23) Displaced fracture of neck of left femur, from a fall-saw orthopedics and had surgery Left hip postoperative wound infection History of partial replacement of left hip joint using bipolar prosthesis (04/09/23) Retention of urine, unspecified Obsessive compulsive disorder History of COVID-2019--mild symptoms, no symptoms now On home oxygen therapy 2L n/c prn sob Fluid retention Right sided sciatica Pneumonia hx of, not recently AV fistula September 07, 2020 > right wrist > not on dialysis at present Atrial fibrillation and flutter Generalized weakness Syncope PAF (paroxysmal atrial fibrillation) Atrial fibrillation, new onset dx August 2020> cardioversions x2. on eliquis > follows Dr. Fontaine Cardiac murmur Mild TR noted on 2019 echo. Obesity hypoventilation syndrome Morbid obesity BMI 40.1 Diastolic congestive heart failure Euvolemic on exam at [facility] 09/02/20. follows with Dr. Fontaine Chronic rhinitis Hypertension Diabetes IDDM Surgical History Status post gastric bypass for obesity 09/14/2020- Dr. Ash- [facility] History of incision and drainage (05/06/23) Incision and Drainage, Debridement Sacral Wound - Yasmany Langley DO History of bilateral cataract extraction History of cardioversion x2 History of arthroscopy x2 left shoulder History of total shoulder replacement LEFT 07/19 2015 fracture History of esophagogastroduodenoscopy (EGD) History of colonoscopy History of dermoid cyst excision S/P tooth extraction History of mandibular surgery FULL ROM H/O section x1 Hx of cholecystectomy Family History Daughter Multiple allergies Bipolar disorder Aunt Breast cancer Mother Diabetes Heart disease Hyperthyroidism Hypertension Father Gastric cancer Hearing loss Myocardial infarction Grandfather Heart disease Family/Other Osteoporosis Lung cancer Hypertension Stroke Brother Hypertension Grandmother Ovarian cancer Sister Diabetes Migraine Other No family history of adverse response to anesthesia Denies family history of Prostate cancer Colorectal cancer Uterine cancer Social History Smoking Status: Never smoker Second Hand Exposure: No; Do You Dip or Chew Tobacco: No; Hx Alcohol Use: No Hx Substance Use: No (Unknown - Resident of [facility] [place]) Preferred Language: Kazakh Communication Ability: Effective Visual Impairment: No Limitations Darkroom Worker Required: No Beliefs That Will Affect Care: None marital status: Current Living Situation: Assisted Current Living Situation Comment: [facility] since 08/22/23 current occupational status: employed and unemployed Feels Safe at Home: Yes Childhood Exposure to Second-Hand Smoke: Yes Dental Care, Regularly: Yes Physical Activity Frequency: Does not Exercise Seatbelt Use: always Sunscreen Use: Yes Assistive Devices: Walker and Wheelchair Allergies Allergies Allergy/AdvReac Type Severity Reaction Status Date / Time Iodinated Contrast Media Allergy Unknown Unknown Verified 12/17/23 07:28 [Iodinated Contrast- Oral and IV Dye] promethazine AdvReac Intermediate BROKEN Verified 12/17/23 07:28 CAPILLARIES FACE Home Meds Home Medications Medication Instructions Recorded Confirmed buspirone 15 mg tablet 15 mg PO BID 11/28/20 12/17/23 cyanocobalamin (vitamin B-12) 2,500 mcg PO 2XWK 10/08/22 12/17/23 2,500 mcg tablet pregabalin 75 mg capsule (Lyrica) 75 mg PO BID 07/04/23 12/17/23 bumetanide 2 mg tablet 2 mg PO QAM 07/24/23 12/17/23 acetaminophen 325 mg capsule 650 mg PO QID PRN Fever Or Pain 09/23/23 12/17/23 (Tylenol) cholecalciferol (vitamin D3) 125 125 mcg PO DAILY 09/23/23 12/17/23 mcg (5,000 unit) capsule diltiazem HCl 180 mg capsule,24 180 mg PO DAILY 09/23/23 12/17/23 hr,extended release fluvoxamine 100 mg tablet 100 mg PO QPM 09/23/23 12/17/23 loperamide 2 mg capsule 2 mg PO TID PRN Diarrhea 09/23/23 12/17/23 (Anti-Diarrheal (loperamide)) multivitamin with iron 1 tab PO DAILY 09/23/23 12/17/23 nystatin 100,000 unit/gram topical 1 applic topical DAILY PRN .flare 09/23/23 12/17/23 powder ups ondansetron HCl 4 mg tablet 4 mg PO Q6H PRN nausea and vomiting 09/23/23 12/17/23 calcium carbonate (Calcium 600) 600 mg PO DAILY 11/16/23 12/17/23 fluvoxamine 50 mg tablet 50 mg PO QPM 11/16/23 12/17/23 lorazepam 0.5 mg tablet (Ativan) 0.5 mg PO BID PRN Anxiety 11/16/23 12/17/23 Previous Rx's Medication Instructions Recorded lancets (OneTouch UltraSoft #400 ea 04/12/21 Lancets) blood sugar diagnostic #300 ea 12/10/22 atorvastatin 80 mg tablet 80 mg PO HS #90 tabs 12/24/22 levothyroxine 50 mcg tablet 50 mcg PO DAILYBB #90 tabs 01/23/23 insulin syringe-needle U-100 0.5 #400 ea 02/05/23 mL 31 gauge x 5/16" (Easy Comfort Insulin Syringe) folic acid 1 mg tablet 1 mg PO QAM #90 tabs 02/22/23 epoetin fernando-epbx 40,000 unit/mL 40,000 unit subcut UD 28 days #28 07/01/23 injection solution (Retacrit) mL pantoprazole 40 mg tablet,delayed 40 mg PO BID #60 tabs 07/09/23 release metoprolol succinate 25 mg 25 mg PO DAILY #90 tabs 07/26/23 tablet,extended release 24 hr apixaban 5 mg tablet (Eliquis) 5 mg PO BID #60 tabs 08/30/23 copper gluconate 2 mg tablet 2 mg PO DAILY #1 tab 11/28/23 colestipol 1 gram tablet (Colestid) 1 g PO DAILY@2200 PRN diarrhea #0 11/29/23 tabs ferrous sulfate 325 mg (65 mg 325 mg PO Q2D #0 tabs 11/29/23 iron) tablet,delayed release oxycodone 10 mg tablet,crush 10 mg PO BID #14 tabs 11/29/23 resistant,extended release 12 hr (OxyContin) oxycodone 5 mg tablet 10 mg (2 x 5 mg) PO Q6H PRN pain 11/29/23 #30 tabs selenium 100 mcg tablet 100 mcg PO DAILY #1 tab 11/29/23 thiamine HCl (vitamin B1) 100 mg 100 mg PO QAM #0 tabs 11/29/23 tablet trazodone 50 mg tablet 25 mg (1/2 x 50 mg) PO HS #0 tabs 11/29/23 Results & Data (ED) Vital Signs Vital Signs - 24 hr 03/04/24 10:12 03/04/24 10:12 03/04/24 10:46 Temperature 36.4 C Temperature Source Oral Pulse Rate 89 88 Pulse Rate [Apical] Pulse Rate from SpO2 Sensor Pulse Rhythm [Apical] Respiratory Rate 8 L Respiratory Effort / Characteristics Respiratory Depth Respiratory Pattern Blood Pressure 82/50 L Blood Pressure [Left Arm] Blood Pressure Mean 60 Blood Pressure Mean [Left Arm] Blood Pressure Position Lying Blood Pressure Position [Left Arm] Pulse Oximetry 92 Oxygen Delivery Method Nasal Cannula Nasal Cannula Oxygen Flow Rate 4 4 Sepsis Recent Fever Within 48 Hours No Sepsis New/Unexplained Change in Mental Status Yes Sepsis Action Taken by Nursing Previously Notified 03/04/24 11:01 03/04/24 12:16 03/04/24 12:26 Temperature 35.4 C L Temperature Source Giraldo Cath ( Temp Sensing) Pulse Rate 63 Pulse Rate [Apical] 81 98 H Pulse Rate from SpO2 Sensor Pulse Rhythm [Apical] Regular Respiratory Rate 10 L 13 10 L Respiratory Effort / Characteristics Non-Labored Non-Labored Respiratory Depth Normal Normal Respiratory Pattern Regular Blood Pressure Blood Pressure [Left Arm] 80/42 L Blood Pressure Mean Blood Pressure Mean [Left Arm] 54 Blood Pressure Position Blood Pressure Position [Left Arm] Pulse Oximetry 98 92 88 L Oxygen Delivery Method Nasal Cannula Nasal Cannula Nasal Cannula Oxygen Flow Rate 2 5 5 Sepsis Recent Fever Within 48 Hours Sepsis New/Unexplained Change in Mental Status Sepsis Action Taken by Nursing 03/04/24 12:29 03/04/24 12:30 03/04/24 12:49 Temperature Temperature Source Pulse Rate 86 84 Pulse Rate [Apical] 73 Pulse Rate from SpO2 Sensor 83 81 Pulse Rhythm [Apical] Respiratory Rate 14 11 L 12 Respiratory Effort / Characteristics Respiratory Depth Shallow Respiratory Pattern Blood Pressure 137/60 137/60 Blood Pressure [Left Arm] Blood Pressure Mean 85 85 Blood Pressure Mean [Left Arm] Blood Pressure Position Blood Pressure Position [Left Arm] Pulse Oximetry 86 L 93 90 Oxygen Delivery Method Nasal Cannula Nasal Cannula Oxygen Flow Rate 5 5 Sepsis Recent Fever Within 48 Hours Sepsis New/Unexplained Change in Mental Status Sepsis Action Taken by Nursing 03/04/24 12:56 03/04/24 13:18 03/04/24 13:32 Temperature 35.3 C L 35.2 C L 36.4 C L Temperature Source Giraldo Cath ( Temp Sensing) Giraldo Cath ( Temp Sensing) Oral Pulse Rate Pulse Rate [Apical] 90 68 56 L Pulse Rate from SpO2 Sensor Pulse Rhythm [Apical] Respiratory Rate 12 10 L 12 Respiratory Effort / Characteristics Respiratory Depth Normal Normal Normal Respiratory Pattern Blood Pressure Blood Pressure [Left Arm] 143/77 H 116/81 Blood Pressure Mean Blood Pressure Mean [Left Arm] 99 92 Blood Pressure Position Blood Pressure Position [Left Arm] Lying Pulse Oximetry 95 99 96 Oxygen Delivery Method Nasal Cannula Nasal Cannula Nasal Cannula Oxygen Flow Rate 4 4 4 Sepsis Recent Fever Within 48 Hours Sepsis New/Unexplained Change in Mental Status Sepsis Action Taken by Nursing 03/04/24 13:32 03/04/24 13:45 03/04/24 14:02 Temperature Temperature Source Pulse Rate 85 88 Pulse Rate [Apical] 92 H Pulse Rate from SpO2 Sensor 85 89 Pulse Rhythm [Apical] Regular Respiratory Rate 10 L 8 L 8 L Respiratory Effort / Characteristics Non-Labored Respiratory Depth Normal Respiratory Pattern Regular Blood Pressure 116/81 137/75 Blood Pressure [Left Arm] 113/76 Blood Pressure Mean 95 83 Blood Pressure Mean [Left Arm] 88 Blood Pressure Position Blood Pressure Position [Left Arm] Pulse Oximetry 100 100 99 Oxygen Delivery Method Nasal Cannula Oxygen Flow Rate 4 Sepsis Recent Fever Within 48 Hours Sepsis New/Unexplained Change in Mental Status Sepsis Action Taken by Assisted Medications Current Medication List: was personally reviewed by me Laboratory Data Attestation: I reviewed the patient's lab results. 03/04/24 10:33 03/04/24 10:33 Lab Results 03/04/24 03/04/24 03/04/24 Range/Units 10:30 10:33 10:36 WBC 10.18 (4.8-10.8) K/ul RBC 4.20 (4.20-5.40) M/uL Hgb 10.8 L (12.0-16.0) g/dl POC Hgb 11.6 L (12.0-16.0) g/dl Hct 33.7 L (37.0-47.0) % POC Hct 34 L (37-47) % MCV 80.2 (80.0-100.0) fL MCH 25.7 (25.0-34.0) pg MCHC 32.0 (32.0-36.0) g/dL RDW Std Deviation 49.9 H (36.4-46.3) fL RDW Coeff of Chantal 17.2 H (11.5-14.5) % Plt Count 132 (130-400) K/uL MPV 12.4 (9.4-12.4) fL Immature Gran % (Auto) 1.2 % Neut % (Auto) 81.6 % Lymph % (Auto) 11.3 % Sawyer % (Auto) 5.5 % Eos % (Auto) 0.2 % Baso % (Auto) 0.2 % Neut # (Auto) 8.31 H (1.40-6.50) K/uL Lymph # (Auto) 1.15 L (1.20-3.40) K/uL Sawyer # (Auto) 0.56 (0.11-0.59) K/uL Eos # (Auto) 0.02 (0.00-0.50) K/uL Baso # (Auto) 0.02 (0.00-0.20) K/uL Immature Gran # (Auto) 0.12 (0.01-0.20) K/uL PT 14.6 H (9.0-12.0) Seconds INR 1.4 H (0.9-1.1) APTT 41 H (21-31) Seconds PTT Ratio 1.5 VBG pH 7.31 L (7.36-7.41) VBG pCO2 37 L (38-50) mmHg VBG pO2 48 mmHg VBG HCO3 19 mmol/L VBG O2 Saturation 74.8 % VBG Base Excess -7.0 mEq/L POC Sodium 136 (135-144) mmol/L Sodium 137 (136-145) mmol/L POC Potassium 4.5 (3.3-5.0) mmol/L Potassium 4.5 (3.5-5.1) mmol/L POC Chloride 108 (101-112) mmol/L Chloride 107 (98-107) mmol/L Carbon Dioxide 19 L (21-32) mmol/L POC Total CO2 19 L (24-31) mmol/L Anion Gap 11 (3-11) POC Anion Gap 15.0 L (16-25) mmol/L POC BUN 81 H (7-18) mg/dl BUN 91 H (6-23) mg/dl Creatinine 3.30 H (0.6-1.2) mg/dl POC Creatinine 3.5 H (0.6-1.3) mg/dl Est Cr Clr Drug Dosing 20.4 ml/min Est GFR ( Amer) 16.2 ml/min Est GFR (Non-Af Amer) 13.9 ml/min BUN/Creatinine Ratio 27.6 H (10-20) Glucose 85 (70-99(Fasting)) mg/dl POC Glucose (other) 76 (70-99) mg/dl Lactate 1.1 (0.4-2.0) mmol/L Calcium 6.9 L (8.6-10.3) mg/dl POC Ioniz Calcium Kat 0.92 L (1.12-1.32) mmol/l Magnesium 1.6 L (1.7-2.4) mg/dl Total Bilirubin 0.6 (0.2-1.0) mg/dl Direct Bilirubin 0.2 (0-0.2) mg/dl AST 40 H (13-39) U/L ALT 19 (7-52) U/L Alkaline Phosphatase 216 H (34-104) U/L Ammonia 47.0 (18-72) umol/L Troponin I High Sens 16.4 H (0-14) pg/ml Total Protein 4.7 L (6.0-8.3) gm/dl Albumin < 1.5 L (3.4-5.0) gm/dl Procalcitonin 0.79 H (0-0.5) ng/ml Urine Color Urine Appearance (Clear) Urine pH (4.5-7.5) Ur Specific [place] (1.000-1.030) Urine Protein (Negative) Urine Glucose (UA) (Negative) Urine Ketones (Negative) Urine Blood (Negative) Urine Nitrite (Negative) Urine Bilirubin (Negative) Urine Urobilinogen (Negative) Ur Leukocyte Esterase (Negative) Urine WBC (Auto) (0-5) /hpf Urine RBC (Auto) (0-2) /hpf U Hyaline Cast (Auto) (0-2) /lpf U Epithel Cells (Auto) (0-2) /hpf Urine Bacteria (Auto) (None Seen) Adenovirus (PCR) Not Detected (NotDetected) B. pertussis DNA (PCR) Not Detected (NotDetected) B.parapertussis DNA PCR Not Detected (NotDetected) C. pneumoniae DNA (PCR) Not Detected (NotDetected) Coronavirus OC43 (PCR) Not Detected (NotDetected) Coronavirus HKU1 (PCR) Not Detected (NotDetected) Coronavirus 229E (PCR) Not Detected (NotDetected) SARS-CoV-2 (PCR) Not Detected (NotDetected) Coronavirus NL63 (PCR) Not Detected (NotDetected) Human Metapneumovir PCR Not Detected (NotDetected) Influenza Type A (PCR) Not Detected (NotDetected) Influenza Type B (PCR) Not Detected (NotDetected) M. pneumoniae (PCR) Not Detected (NotDetected) Parainfluenza 1 (PCR) Not Detected (NotDetected) Parainfluenza 2 (PCR) Not Detected (NotDetected) Parainfluenza 3 (PCR) Not Detected (NotDetected) Parainfluenza 4 (PCR) Not Detected (NotDetected) RSV (PCR) Not Detected (NotDetected) Entero/Rhino (PCR) Not Detected (NotDetected) 03/04/24 Range/Units 12:15 WBC (4.8-10.8) K/ul RBC (4.20-5.40) M/uL Hgb (12.0-16.0) g/dl POC Hgb (12.0-16.0) g/dl Hct (37.0-47.0) % POC Hct (37-47) % MCV (80.0-100.0) fL MCH (25.0-34.0) pg MCHC (32.0-36.0) g/dL RDW Std Deviation (36.4-46.3) fL RDW Coeff of Chantal (11.5-14.5) % Plt Count (130-400) K/uL MPV (9.4-12.4) fL Immature Gran % (Auto) % Neut % (Auto) % Lymph % (Auto) % Sawyer % (Auto) % Eos % (Auto) % Baso % (Auto) % Neut # (Auto) (1.40-6.50) K/uL Lymph # (Auto) (1.20-3.40) K/uL Sawyer # (Auto) (0.11-0.59) K/uL Eos # (Auto) (0.00-0.50) K/uL Baso # (Auto) (0.00-0.20) K/uL Immature Gran # (Auto) (0.01-0.20) K/uL PT (9.0-12.0) Seconds INR (0.9-1.1) APTT (21-31) Seconds PTT Ratio VBG pH (7.36-7.41) VBG pCO2 (38-50) mmHg VBG pO2 mmHg VBG HCO3 mmol/L VBG O2 Saturation % VBG Base Excess mEq/L POC Sodium (135-144) mmol/L Sodium (136-145) mmol/L POC Potassium (3.3-5.0) mmol/L Potassium (3.5-5.1) mmol/L POC Chloride (101-112) mmol/L Chloride (98-107) mmol/L Carbon Dioxide (21-32) mmol/L POC Total CO2 (24-31) mmol/L Anion Gap (3-11) POC Anion Gap (16-25) mmol/L POC BUN (7-18) mg/dl BUN (6-23) mg/dl Creatinine (0.6-1.2) mg/dl POC Creatinine (0.6-1.3) mg/dl Est Cr Clr Drug Dosing ml/min Est GFR ( Amer) ml/min Est GFR (Non-Af Amer) ml/min BUN/Creatinine Ratio (10-20) Glucose (70-99(Fasting)) mg/dl POC Glucose (other) (70-99) mg/dl Lactate (0.4-2.0) mmol/L Calcium (8.6-10.3) mg/dl POC Ioniz Calcium Kat (1.12-1.32) mmol/l Magnesium (1.7-2.4) mg/dl Total Bilirubin (0.2-1.0) mg/dl Direct Bilirubin (0-0.2) mg/dl AST (13-39) U/L ALT (7-52) U/L Alkaline Phosphatase (34-104) U/L Ammonia (18-72) umol/L Troponin I High Sens (0-14) pg/ml Total Protein (6.0-8.3) gm/dl Albumin (3.4-5.0) gm/dl Procalcitonin (0-0.5) ng/ml Urine Color Yellow Urine Appearance Clear (Clear) Urine pH 5.0 (4.5-7.5) Ur Specific [place] 1.012 (1.000-1.030) Urine Protein Negative (Negative) Urine Glucose (UA) Negative (Negative) Urine Ketones Negative (Negative) Urine Blood Negative (Negative) Urine Nitrite Negative (Negative) Urine Bilirubin Negative (Negative) Urine Urobilinogen Negative (Negative) Ur Leukocyte Esterase 2+ H (Negative) Urine WBC (Auto) 11-20 H (0-5) /hpf Urine RBC (Auto) 0-2 (0-2) /hpf U Hyaline Cast (Auto) 3-5 H (0-2) /lpf U Epithel Cells (Auto) 0-2 (0-2) /hpf Urine Bacteria (Auto) None Seen (None Seen) Adenovirus (PCR) (NotDetected) B. pertussis DNA (PCR) (NotDetected) B.parapertussis DNA PCR (NotDetected) C. pneumoniae DNA (PCR) (NotDetected) Coronavirus OC43 (PCR) (NotDetected) Coronavirus HKU1 (PCR) (NotDetected) Coronavirus 229E (PCR) (NotDetected) SARS-CoV-2 (PCR) (NotDetected) Coronavirus NL63 (PCR) (NotDetected) Human Metapneumovir PCR (NotDetected) Influenza Type A (PCR) (NotDetected) Influenza Type B (PCR) (NotDetected) M. pneumoniae (PCR) (NotDetected) Parainfluenza 1 (PCR) (NotDetected) Parainfluenza 2 (PCR) (NotDetected) Parainfluenza 3 (PCR) (NotDetected) Parainfluenza 4 (PCR) (NotDetected) RSV (PCR) (NotDetected) Entero/Rhino (PCR) (NotDetected) Administered Medications Discontinued Medications Sodium Chloride (Nss) 1,000 mls @ 999 mls/hr IV .[id number] ONE Stop: 03/04/24 11:01 Last Infusion: 03/04/24 11:53 Dose: Infused Documented By: Admin: 03/04/24 10:59 Dose: 999 mls/hr Documented By: CEF Piperacillin Sod/Tazobactam Sod (Zosyn) 4.5 gm in 100 mls @ 200 mls/hr IV NOW ONE Stop: 03/04/24 11:14 Last Infusion: 03/04/24 11:53 Dose: Infused Documented By: Admin: 03/04/24 11:07 Dose: 200 mls/hr Documented By: CEF Vancomycin HCl 2,000 mg/ (Sodium Chloride) 540 mls @ 200 mls/hr IV NOW ONE Stop: 03/04/24 13:41 Last Admin: 03/04/24 11:54 Dose: 200 mls/hr Documented By: ES Sodium Chloride (Nss) 1,000 mls @ 999 mls/hr IV .Q1H1M ONE Stop: 03/04/24 12:24 Last Infusion: 03/04/24 13:18 Dose: Infused Documented By: Admin: 03/04/24 11:56 Dose: 999 mls/hr Documented By: ES Magnesium Sulfate/Dextrose (Magnesium Sulfate / D5w) 1 gm in 100 mls @ 100 mls/hr IV NOW STA Stop: 03/04/24 12:27 Last Infusion: 03/04/24 13:38 Dose: Infused Documented By: Admin: 03/04/24 13:08 Dose: 100 mls/hr Documented By: ES Lactated Ringer's (Lr) 1,000 mls @ 999 mls/hr IV .Q1H1M ONE Stop: 03/04/24 13:08 Last Infusion: 03/04/24 13:38 Dose: Infused Documented By: Admin: 03/04/24 12:14 Dose: 999 mls/hr Documented By: ES Imaging Data Attestation: I personally reviewed and interpreted this imaging study as follows: My Impression: 1 chest x-ray was obtained in the emergency department. My interpretation is bilateral pleural effusions, final report below. CT of the abdomen and pelvis was obtained in the emergency department. My interpretation is no free air, there is no definite bowel obstruction, bilateral pleural effusions were noted, final report below. Radiologist's Impression: Abdomen/Pelvis CT 03/04/24 10:01 CT OF THE ABDOMEN AND PELVIS WITHOUT CONTRAST CLINICAL HISTORY: Abdominal wall cellulitis. COMPARISON STUDY: Pelvic ultrasound October 28, 2023. CT of the abdomen and pelvis December 01, 2020. TECHNIQUE: Axial images of the abdomen and pelvis were obtained without IV contrast. Images were reviewed in the axial, sagittal, and coronal planes. Automated exposure control was utilized for the study. A dose lowering technique was utilized adhering to the principles of ALARA. FINDINGS: The heart is enlarged. Moderate bilateral pleural effusions are partially imaged. Associated subpleural opacities favor atelectasis although an infectious process could appear similar. Patchy right middle lobe and additional right lower lobe opacities favor an infectious process. Marked anasarca is noted, including left breast edema. The abdominal wall/flanks are partially imaged on this examination. Extensive subcutaneous edema is noted. No well- defined fluid collections are present. There is no soft tissue gas. Evaluation of the abdomen and pelvis is suboptimal on this unenhanced examination. There is a small hiatal hernia. Postoperative findings consistent with gastric bypass are noted. There is no evidence for a bowel obstruction. There is a large amount of stool within the rectum and moderate amount stool within the colon. Sigmoid diverticulosis without evidence for acute diverticulitis. There is extensive vascular calcification. Unenhanced images of the liver, spleen, adrenal glands, kidneys and pancreas are unremarkable. There are no fluid collections within the abdomen or pelvis. A Giraldo within the bladder is present. There is a small amount of abdominal and pelvic ascites. Left hip arthroplasty is noted. No acute periprosthetic fracture is noted. Heterotopic ossification/callus formation of the proximal left femur similar appearance to prior CT July 30, 2023. There is no lymphadenopathy. No acute fractures within the lumbar spine, pelvis or hips are identified. IMPRESSION: 1. Suboptimal evaluation of the abdomen and pelvis given lack of IV contrast. 2. Evidence for volume overload with marked anasarca, moderate bilateral pleural effusions and a small amount of abdominal and pelvic ascites. Extensive body wall edema, partially imaged on this exam. No fluid collections identified. No soft tissue gas. 3. Dependent airspace opacities within the lower lobes which favor atelectasis although pneumonia could appear similar. Patchy right middle lobe and additional right lower lobe airspace opacities which favor pneumonia. 4. No bowel obstruction. Sigmoid diverticulosis. No evidence for acute diverticulitis. 5. Large amount stool within the rectum and moderate amount of stool within the colon. ACT 112: Negative or not required by law. Electronically signed by: Ahsan Rebolledo M.D. 03/04/2024 12:58 PM Chest X-Ray 03/04/24 10:03 XR chest 1V portable HISTORY: 63 years-old Female sepsis acute sepsis COMPARISON: 07/29/2023 TECHNIQUE: AP view of the chest FINDINGS: Cardiac silhouette is enlarged. Small pleural effusions with mild left basilar opacities. Only vascular congestion with interstitial coarsening. No pneumothorax. Left shoulder arthroplasty. Degenerative changes of the spine and right shoulder. IMPRESSION: 1. Cardiomegaly with pulmonary vascular congestion and probable mild pulmonary edema. 2. Small pleural effusions with mild left basilar opacities favoring atelectasis. Pneumonia considered less likely. ACT 112: Negative or not required by law. The above report was generated using voice recognition software. It may contain grammatical, syntax or spelling errors. Electronically signed by: Timothy Tracy M.D. 03/04/2024 10:53 AM Discharge Plan Visit Data Chief Complaint: Hypotension ED Provider: Joshua Suarez Discharge Problem: Sepsis, PATY (acute kidney injury), Abdominal wall cellulitis, Acute urinary retention, Hypomagnesemia Patient Disposition: Being Evaluated by Hospitalist Forms Stand Alone Forms: [facility] Prescriptions Prescriptions: No Action (DME) lancets [OneTouch UltraSoft Lancets] Misc See Rx Instructions .ROUTE .MEDSUPPLY Qty: 400 3RF Rx Instructions: test blood sugar 4 x daily (DME) blood sugar diagnostic Strip See Dose Instructions .ROUTE .MEDSUPPLY Qty: 300 3RF Dose Instruction: As directed Rx Instructions: test blood sugar 3 x daily. OneTouch ultra blue test strips. atorvastatin 80 mg tablet 80 mg PO HS Qty: 90 3RF Hold Instructions: Resume on 12/20/23. HMG CoA reductase inhibitor antibody test pending levothyroxine 50 mcg tablet 50 mcg PO DAILYBB Qty: 90 1RF Rx Instructions: take with 8 oz of water (DME) insulin syringe-needle U-100 [Easy Comfort Insulin Syringe] 0.5 mL 31 gauge x 5/16" syringe See Rx Instructions .ROUTE .MEDSUPPLY Qty: 400 3RF Rx Instructions: Use four times a day with insulin injection folic acid 1 mg tablet 1 mg PO QAM Qty: 90 3RF Retacrit 40,000 unit/mL solution 40,000 unit subcut UD 28 Days Qty: 28 6RF Rx Instructions: weekly on Wednesdays, hold for Hb 11 or higher bumetanide 2 mg tablet 2 mg PO QAM Hold Instructions: Resume on 05/24/23. metoprolol succinate 25 mg tablet extended release 24 hr 25 mg PO DAILY Qty: 90 3RF Eliquis 5 mg tablet 5 mg PO BID Qty: 60 2RF buspirone 15 mg tablet 15 mg PO BID cyanocobalamin (vitamin B-12) 2,500 mcg tablet 2,500 mcg PO 2XWK Rx Instructions: TUES & THURS ONLY diltiazem HCl 180 mg capsule,extended release 24 hr 180 mg PO DAILY multivitamin with iron Tablet 1 tab PO DAILY cholecalciferol (vitamin D3) 125 mcg (5,000 unit) capsule 125 mcg PO DAILY loperamide [Anti-Diarrheal (loperamide)] 2 mg capsule 2 mg PO TID PRN (Reason: Diarrhea) nystatin 100,000 unit/gram powder 1 applic topical DAILY PRN (Reason: .flare ups) ondansetron HCl 4 mg tablet 4 mg PO Q6H PRN (Reason: nausea and vomiting) acetaminophen [Tylenol] 325 mg capsule 650 mg PO QID PRN (Reason: Fever Or Pain) Rx Instructions: For pain 1-4 or fever > 100. Do not exceed 3000mg in 24 hrs fluvoxamine 100 mg tablet 100 mg PO QPM Rx Instructions: use with 50mg tablet pregabalin [Lyrica] 75 mg Capsule 75 mg PO BID pantoprazole 40 mg tablet,delayed release (DR/EC) 40 mg PO BID Qty: 60 5RF Rx Instructions: take daily calcium carbonate [Calcium 600] 600 mg calcium (1,500 mg) Tablet 600 mg PO DAILY lorazepam [Ativan] 0.5 mg Tablet 0.5 mg PO BID PRN (Reason: Anxiety) fluvoxamine 50 mg Tablet 50 mg PO QPM copper gluconate 2 mg tablet 2 mg PO DAILY Qty: 1 0RF ferrous sulfate 325 mg (65 mg iron) Tablet,Delayed Release (Dr/Ec) 325 mg PO Q2D Qty: 0 0RF colestipol [Colestid] 1 gram Tablet 1 g PO DAILY@2200 PRN (Reason: diarrhea) Qty: 0 0RF trazodone 50 mg Tablet 25 mg PO HS Qty: 0 0RF thiamine HCl (vitamin B1) 100 mg Tablet 100 mg PO QAM Qty: 0 0RF selenium 100 mcg tablet 100 mcg PO DAILY Qty: 1 0RF oxycodone [OxyContin] 10 mg tablet,oral only,ext.rel.12 hr 10 mg PO BID Qty: 14 0RF oxycodone 5 mg tablet 10 mg PO Q6H PRN (Reason: pain) Qty: 30 0RF Referrals Referrals: Emerald Hua MD [Primary Care Provider] - Discharge Problem: Sepsis Qualifiers: Sepsis type: sepsis due to unspecified organism Sepsis acute organ dysfunction status: unspecified Qualified Code(s): A41.9 - Sepsis, unspecified organism
[2024-03-04] MEDS ORDERED: Patient's HEIGHT &/or WEIGHT Needed STA (10:34)
[2024-03-04 10:42] LABS: iSTAT Creatinine 3.5 mg/dl (0.6-1.3); iSTAT Hemoglobin 11.6 g/dl (12.0-16.0); iSTAT Ionized Calcium 0.92 mmol/l (1.12-1.32); iSTAT Potassium 4.5 mmol/L (3.3-5.0)
[2024-03-04 10:47] LABS: HCO3 VBG 19 mmol/L; Oxygen Saturation VBG 74.8 %; PCO2 VBG 37 mmHg (38-50); PO2 VBG 48 mmHg; pH VBG 7.31 (7.36-7.41)
[2024-03-04 10:52] LABS: Basophils # (auto) 0.02 K/uL (0.00-0.20); Basophils % (auto) 0.2 %; Eosinophils # (auto) 0.02 K/uL (0.00-0.50); Eosinophils % (auto) 0.2 %; Hematocrit (blood only) 33.7 % (37.0-47.0); Hemoglobin 10.8 g/dl (12.0-16.0); Immature Granulocytes # (auto) 0.12 K/uL (0.01-0.20); Immature Granulocytes % (auto) 1.2 %; Lymphocytes # (auto) 1.15 K/uL (1.20-3.40); Lymphocytes % (auto) 11.3 %; Mean Corpuscular Hemoglobin 25.7 pg (25.0-34.0); Mean Corpuscular Volume 80.2 fL (80.0-100.0); Mean Platelet Volume 12.4 fL (9.4-12.4); Monocytes # (auto) 0.56 K/uL (0.11-0.59); Monocytes % (auto) 5.5 %; Neutrophils # (auto) 8.31 K/uL (1.40-6.50); Neutrophils % (auto) 81.6 %; Platelet Count 132 K/uL (130-400); RDW Coefficient of Variation 17.2 % (11.5-14.5); RDW Standard Deviation 49.9 fL (36.4-46.3); White Blood Count 10.18 K/ul (4.8-10.8)
--- NOTE | 2024-03-04 10:54 | XRay Report ---
XR chest 1V portable HISTORY: 63 years-old Female sepsis acute sepsis COMPARISON: 07/29/2023 TECHNIQUE: AP view of the chest FINDINGS: Cardiac silhouette is enlarged. Small pleural effusions with mild left basilar opacities. Only vascul ar congestion with interstitial coarsening. No pneumothorax. Left shoulder arthroplasty. Degenerative changes of the spine and right shoulder. IMPRESSION: 1. Cardiomegaly with pulmonary vascular congestion and probable mild pulmonary edema. 2. Small pleural effusions with mild left basilar opacities favoring atelectasis. Pneumonia considere d less likely. ACT 112: Negative or not required by law. The above report was generated using voice recognition software. It may contain grammatical, syntax o r spelling errors. Electronically signed by: Timothy Tracy M.D. 03/04/2024 10:53 AM
[2024-03-04] MEDS: SODIUM CHLORIDE 0.9% 1,000 ML IV ONE ×2 (10:59→11:56)
[2024-03-04] MEDS: PIPERACILLIN/TAZOBACTAM 4.5 GM/100 ML BAG IV ONE (11:07)
[2024-03-04 11:15] LABS: Alanine Aminotransferase 19 U/L (7-52); Albumin Level < 1.5 gm/dl (3.4-5.0); Alkaline Phosphatase 216 U/L (34-104); Anion Gap 11 (3-11); Aspartate Aminotransferase 40 U/L (13-39); BUN Creatinine Ratio 27.6 (10-20); Bilirubin Direct 0.2 mg/dl (0-0.2); Bilirubin,Total 0.6 mg/dl (0.2-1.0); Blood Urea Nitrogen 91 mg/dl (6-23); Calcium 6.9 mg/dl (8.6-10.3); Carbon Dioxide 19 mmol/L (21-32); Chloride 107 mmol/L (98-107); Creatinine Clr Calc Pharmacy 20.4 ml/min; Est GFR (African American) 16.2 ml/min; Est GFR (Non-African American) 13.9 ml/min; Glucose 85 mg/dl (70-99(Fasting)); Magnesium 1.6 mg/dl (1.7-2.4); Potassium 4.5 mmol/L (3.5-5.1); Sodium 137 mmol/L (136-145); Total Protein 4.7 gm/dl (6.0-8.3)
[2024-03-04 11:21] LABS: INR 1.4 (0.9-1.1); Partial Thromboplastin Ratio 1.5; Partial Thromboplastin Time 41 Seconds (21-31); Prothrombin Time 14.6 Seconds (9.0-12.0)
[2024-03-04 11:28] LABS: Troponin I High Sensitivity 16.4 pg/ml (0-14)
[2024-03-04 11:47] LABS: Adenovirus PCR Not Detected (NotDetected); Bordetella parapertussis PCR Not Detected (NotDetected); Bordetella pertussis PCR Not Detected (NotDetected); Chlamydia pneumoniae PCR Not Detected (NotDetected); Coronavirus 229E PCR Not Detected (NotDetected); Coronavirus CoV-2 (COVID19)PCR Not Detected (NotDetected); Coronavirus HKU1 PCR Not Detected (NotDetected); Coronavirus NL63 PCR Not Detected (NotDetected); Coronavirus OC43PCR Not Detected (NotDetected); Human Metapneumovirus PCR Not Detected (NotDetected); Influenza A PCR Not Detected (NotDetected); Influenza B PCR Not Detected (NotDetected); Mycoplasma pneumoniae PCR Not Detected (NotDetected); Parainfluenza Virus 1 PCR Not Detected (NotDetected); Parainfluenza Virus 2 PCR Not Detected (NotDetected); Parainfluenza Virus 3 PCR Not Detected (NotDetected); Parainfluenza Virus 4 PCR Not Detected (NotDetected); Respiratory Syncytial VirusPCR Not Detected (NotDetected); Rhinovirus/Enterovirus PCR Not Detected (NotDetected)
[2024-03-04] MEDS: VANCOMYCIN HCL 2,000 MG in SODIUM CHLORIDE 0.9% 500 ML IV ONE (11:54)
[2024-03-04] MEDS: LACTATED RINGER'S 1,000 ML IV ONE (12:14)
[2024-03-04 12:35] LABS: Appearance Urine Clear (Clear); Bacteria Urine Automated None Seen (None Seen); Bilirubin Urine Negative (Negative); Blood Urine Negative (Negative); Color Urine Yellow; Epithelial Cell Urine Auto 0-2 /hpf (0-2); Glucose Urine UA Negative (Negative); Ketones Urine Negative (Negative); Leukocyte Esterase Urine 2+ (Negative); Nitrite Urine Negative (Negative); Protein Urine Negative (Negative); RBC Urine Automated 0-2 /hpf (0-2); Specific Gravity Urine 1.012 (1.000-1.030); Urobilinogen Urine Negative (Negative)
--- NOTE | 2024-03-04 13:00 | CT Scan Report ---
CT OF THE ABDOMEN AND PELVIS WITHOUT CONTRAST CLINICAL HISTORY: Abdominal wall cellulitis. COMPARISON STUDY: Pelvic ultrasound October 28, 2023. CT of the abdomen and pelvis December 01, 2020. TECHNIQUE: Axial images of the abdomen and pelvis were obtained without IV contrast. Images were revi ewed in the axial, sagittal, and coronal planes. Automated exposure control was utilized for the ulisses dy. A dose lowering technique was utilized adhering to the principles of ALARA. FINDINGS: The heart is enlarged. Moderate bilateral pleural effusions are partially imaged. Associate d subpleural opacities favor atelectasis although an infectious process could appear similar. Patchy right middle lobe and additional right lower lobe opacities favor an infectious process. Marked anasa rca is noted, including left breast edema. The abdominal wall/flanks are partially imaged on this exa mination. Extensive subcutaneous edema is noted. No well-defined fluid collections are present. There is no soft tissue gas. Evaluation of the abdomen and pelvis is suboptimal on this unenhanced examina tion. There is a small hiatal hernia. Postoperative findings consistent with gastric bypass are noted . There is no evidence for a bowel obstruction. There is a large amount of stool within the rectum an d moderate amount stool within the colon. Sigmoid diverticulosis without evidence for acute diverticu litis. There is extensive vascular calcification. Unenhanced images of the liver, spleen, adrenal gla nds, kidneys and pancreas are unremarkable. There are no fluid collections within the abdomen or pelv is. A Giraldo within the bladder is present. There is a small amount of abdominal and pelvic ascites. L eft hip arthroplasty is noted. No acute periprosthetic fracture is noted. Heterotopic ossification/ca llus formation of the proximal left femur similar appearance to prior CT July 30, 2023. There is no lymphadenopathy. No acute fractures within the lumbar spine, pelvis or hips are identified. IMPRESSION: 1. Suboptimal evaluation of the abdomen and pelvis given lack of IV contrast. 2. Evidence for volume overload with marked anasarca, moderate bilateral pleural effusions and a smal l amount of abdominal and pelvic ascites. Extensive body wall edema, partially imaged on this exam. N o fluid collections identified. No soft tissue gas. 3. Dependent airspace opacities within the lower lobes which favor atelectasis although pneumonia cou ld appear similar. Patchy right middle lobe and additional right lower lobe airspace opacities which favor pneumonia. 4. No bowel obstruction. Sigmoid diverticulosis. No evidence for acute diverticulitis. 5. Large amount stool within the rectum and moderate amount of stool within the colon. ACT 112: Negative or not required by law. Electronically signed by: Ahsan Rebolledo M.D. 03/04/2024 12:58 PM
[2024-03-04] MEDS: MAGNESIUM SULFATE / D5W 1 GM/100 ML BAG IV STA (13:08)
--- NOTE | 2024-03-04 14:23 | History & Physical Report ---
Date of Service March 04, 2024 Assessment & Plan (1) Sepsis: Plan: Multiple possible sources including pneumonia (Bio[employer] PCR negative), urine and abdominal/sacral cellulitis (most likely driving cause) Does not meet SIRS criteria but does meet qSOFA (reduced AMS and sBP < 100) Patient on ciprofloxacin and doxycycline Since Continue Zosyn, switch to daptomycin if MRSA nasal swab negative as low likelihood MRSA PNA as cause but she reportedly had MRSA as a surface wound culture, if positive will use linezolid Follow up blood and urine cultures (2) Metabolic encephalopathy: Plan: Ammonia WNL TSH with AM labs Suspect secondary to hypotension, infection, opiate use / sedating medications Continue to hold trazodone, opiates, diltiazem and diuretics (3) PATY (acute kidney injury): Plan: Urine retention on arrival with undetectable BP - suspect combination of both causing PATY Hold off further IV fluids given normal lactate and lack of dizziness/lightheadedness Repeat BMP in AM (4) Anasarca: Plan: Albumin < 1.5 without significant proteinuria and significant ascites suggestive more of chronic poor nutritional state Likely to need to go back on diuretics if BP able to tolerate - consider using combination of furosemide with albumin to help with diuresis TTE to assess for any worsening cardiomyopathy (5) Acute urinary retention: Plan: On arrival to ER Now with hawkins catheter - consider trial without catheter prior to discharge if more ambulatory (6) Hypocalcemia: Plan: Ionized calcium > 0.8 and hypotension resolved therefore no replacement given. Will repeat ionized calcium with AM labs. (7) Hypomagnesemia: Plan: Mg level 1.6 on arrival. Mg sulfate 1g IV (8) Atrial fibrillation: Plan: Permanent Rate controlled usually on diltiazem XR 180mg PO daily, likely current increased rate due to missing diltiazem but with hypotension on arrival will hold off further rate control currently Use metoprolol 5mg IV PRN for HR > 140 Continue anticoagulation with Eliquis (9) Right leg swelling: Plan: US venous doppler to r/o DVT although suspect poor venous drainage from echhymosis from this side (10) Cirrhosis: Plan: Noted on liver US in November. However no large ascites despite extensive anasaraca elsewhere suggesting most of her third spacing is more nutritional. Plt WNL. Ammonia within normal limits. (11) TRUMAN (obstructive sleep apnea): Plan: Intolerant to CPAP in the past, likely contributing towards right sided heart failure (12) Ambulatory dysfunction: Plan: Per her she has been bed bound for 5 months. (13) Severe protein-calorie malnutrition: Plan: Consult dietary (14) Abdominal wall cellulitis: (15) UTI (urinary tract infection): (16) Pneumonia: Plan VTE prophylaxis - Eliquis Diet - regular, consult dietary Disposition - admit to PCU Admission and Anticipated Discharge Date Admission Date: March 04, 2024 History of Present Illness Chief Complaint: Hypotension Primary Care Provider: Emerald Hua MD Jerri Arellano is a 63 year old female who presents to the ER with hypotension. 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 Unable to get any significant history from the patient. Her reports she has become increasingly confused and lethargic over the last 5 days. She has chronic ongoing abdominal wounds which he reports is better than when previously seen. She is currently on ciprofloxacin and doxycycline for MRSA and pseudomonas grown from wound cultures by report. Hand over note from correction reports - correction was unable to get a manual BP this morning after decreasing her sedating medications yesterday due to lethargy (trazodone was discontinued, Buspar decreased to 5mg PO BID, Lyrica decreased to 25mg PO BID, OxyContin decreased to 10mg daily with plans to then discharge after this, oxycodone decreased to 5mg q6h PRN). They report she has not voided in the last 24 hours and bladder scanned for 700ml this morning but the patient refused a Hawkins catheter. She was having some hallucinations yesterday but more alert today. She is on chronic opiates for pain. Allergies Allergy/AdvReac Type Severity Reaction Status Date / Time Iodinated Contrast Media Allergy Unknown Unknown Verified 12/17/23 07:28 [Iodinated Contrast- Oral and IV Dye] promethazine AdvReac Intermediate BROKEN Verified 12/17/23 07:28 CAPILLARIES FACE Home Medications Medication Instructions Recorded Confirmed Type lancets (HackerRankTouch UltraSoft #400 ea 04/12/21 12/17/23 Rx Lancets) cyanocobalamin (vitamin B-12) 2,500 mcg PO 2XWK 10/08/22 03/04/24 History 2,500 mcg tablet blood sugar diagnostic #300 ea 12/10/22 12/17/23 Rx levothyroxine 50 mcg tablet 50 mcg PO DAILYBB #90 tabs 01/23/23 03/04/24 Rx insulin syringe-needle U-100 0.5 #400 ea 02/05/23 12/17/23 Rx mL 31 gauge x 5/16" (Easy Comfort Insulin Syringe) folic acid 1 mg tablet 1 mg PO QAM #90 tabs 02/22/23 03/04/24 Rx epoetin fernando-epbx 40,000 unit/mL 40,000 unit subcut UD 28 days #28 07/01/23 03/04/24 Rx injection solution (Retacrit) mL bumetanide 2 mg tablet 2 mg PO QAM 07/24/23 03/04/24 History metoprolol succinate 25 mg 25 mg PO DAILY #90 tabs 07/26/23 03/04/24 Rx tablet,extended release 24 hr apixaban 5 mg tablet (Eliquis) 5 mg PO BID #60 tabs 08/30/23 03/04/24 Rx acetaminophen 325 mg capsule 650 mg PO QID PRN Fever Or Pain 09/23/23 03/04/24 History (Tylenol) cholecalciferol (vitamin D3) 125 125 mcg PO DAILY 09/23/23 03/04/24 History mcg (5,000 unit) capsule diltiazem HCl 180 mg capsule,24 180 mg PO QAM 09/23/23 03/04/24 History hr,extended release loperamide 2 mg capsule 2 mg PO TID PRN Diarrhea 09/23/23 03/04/24 History (Anti-Diarrheal (loperamide)) ondansetron HCl 4 mg tablet 4 mg PO Q6H PRN nausea and vomiting 09/23/23 03/04/24 History calcium carbonate (Calcium 600) 600 mg PO BID 11/16/23 03/04/24 History lorazepam 0.5 mg tablet (Ativan) 0.5 mg PO BID PRN Anxiety 11/16/23 03/04/24 History copper gluconate 2 mg tablet 2 mg PO DAILY #1 tab 11/28/23 03/04/24 Rx selenium 100 mcg tablet 100 mcg PO DAILY #1 tab 11/29/23 03/04/24 Rx thiamine HCl (vitamin B1) 100 mg 100 mg PO QAM #0 tabs 11/29/23 03/04/24 Rx tablet amino acids-protein hydrolysate 15 See Rx Instructions .Route .COMPLEX 03/04/24 03/04/24 History gram-100 kcal/30 mL oral liquid pkt (Pro-Stat Sugar Free) atorvastatin 80 mg tablet 0 mg PO HS 03/04/24 03/04/24 History bisacodyl 10 mg rectal suppository 10 mg OR DAILY PRN Constipation 03/04/24 03/04/24 History bisacodyl 5 mg tablet,delayed 5 mg PO DAILY PRN Constipation 03/04/24 03/04/24 History release buspirone 5 mg tablet 5 mg PO BID 03/04/24 03/04/24 History calcium carbonate 500 mg PO Q6H PRN Indigestion 03/04/24 03/04/24 History carboxymethylcellulose sodium 1 % 1 drp OPB TID 03/04/24 03/04/24 History eye gel in a dropperette (Refresh Celluvisc) ciprofloxacin HCl 500 mg tablet 500 mg PO UD 03/04/24 03/04/24 History clotrimazole 1 % topical cream See Rx Instructions .Route .COMPLEX 03/04/24 03/04/24 History diclofenac sodium 1 % topical gel 4 g topical TID Left Hip 03/04/24 03/04/24 History doxycycline hyclate 100 mg tablet 100 mg PO BID 03/04/24 03/04/24 History ferrous sulfate 325 mg (65 mg 325 mg PO Q OTHER DAY 03/04/24 03/04/24 History iron) tablet,delayed release fluvoxamine 150 mg 150 mg PO HS 03/04/24 03/04/24 History capsule,extended release 24 hr honey 80 % topical gel (MediHoney See Rx Instructions .Route .COMPLEX 03/04/24 03/04/24 History (honey)) miconazole nitrate 2 % topical 1 applic topical BID Rash between 03/04/24 03/04/24 History powder (Remedy Antifungal) breast multivitamin with folic acid 400 1 tab PO DAILY 03/04/24 03/04/24 History mcg tablet (High Potency Multivitamin) multivitamin-ferrous 1 tab PO QAM 03/04/24 03/04/24 History fumarate-folic acid 18 mg-400 mcg tablet (Certavite-Antioxidant) oxycodone 10 mg tablet,crush 0 mg PO Q12H Chronic Pain Syndrome 03/04/24 03/04/24 History resistant,extended release 12 hr (OxyContin) oxycodone 10 mg tablet,crush 10 mg PO QAM Chronic Pain 03/04/24 03/04/24 History resistant,extended release 12 hr (OxyContin) oxycodone 5 mg tablet 0 mg PO Q6H PRN Moderate to severe 03/04/24 03/04/24 History pain polymyxin B sulfate 10,000 1 drp OPB DAILY 03/04/24 03/04/24 History unit-trimethoprim 1 mg/mL eye drops povidone-iodine 10 % topical swab See Rx Instructions .Route .COMPLEX 03/04/24 03/04/24 History pregabalin 25 mg capsule 25 mg PO BID 03/04/24 03/04/24 History sodium hypochlorite 0.25 % 1 applic topical UD 03/04/24 03/04/24 History solution (Dakin's Solution) trazodone 50 mg tablet 0 mg PO HS 03/04/24 03/04/24 History zinc sulfate 220 mg capsule 220 mg PO BID 03/04/24 03/04/24 History Past Med/Surg History Problem List (Updated 03/04/24 @ 17:33 by Brendan Herron MD) Pneumonia UTI (urinary tract infection) Hypocalcemia Ambulatory dysfunction Metabolic encephalopathy Right leg swelling Anasarca Hypomagnesemia (Acute) Acute urinary retention (Acute) Abdominal wall cellulitis (Acute) PATY (acute kidney injury) (Acute) Sepsis (Acute) Zinc deficiency Copper deficiency myeloneuropathy Cirrhosis Muscle wasting and atrophy, not elsewhere classified, other site Pancytopenia Pressure ulcer of sacral region, stage 4 Severe protein-calorie malnutrition Left hip pain Effusion, left knee MSSA (methicillin susceptible Staphylococcus aureus) infection Elevated CK Elevated troponin (Acute) Wandering atrial pacemaker Urinary retention Constipation Abnormal rhythmic movement of tongue Tear of right hamstring Hamstring tendinitis Piriformis syndrome of right side History of colon polyps Diabetic nephropathy with proteinuria Fatty (change of) liver, not elsewhere classified Diastolic CHF S/P shoulder replacement Osteoarthritis of left knee Foot drop Idiopathic polyneuropathy Hypercholesterolemia Atrial fibrillation (Acute) Restrictive lung disease secondary to obesity Restrictive lung disease COPD (chronic obstructive pulmonary disease) (Chronic) Obsessive compulsive disorder (Chronic) Left ventricular hypertrophy (Chronic) Diabetic nephropathy (Chronic) Anemia (Chronic) HTN (hypertension) (Chronic) Swelling of right upper extremity Dizziness Atrial flutter Vitamin D deficiency Hyperlipemia (Chronic) Hypothyroidism (Chronic) Chronic low back pain (Chronic) Anxiety and depression (Chronic) Arthralgia of multiple sites (Chronic) Claustrophobia (Chronic) Diabetic peripheral neuropathy (Chronic) Diabetic retinopathy, nonproliferative (Chronic) 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 Per [facility] pulm 12/2019, "fairly stable from a pulmonary perspective. She is short of breath with any exertion, however a large part of this is likely related to obesity. Pulmonary functions done 1 year ago showed only a mild restrictive pattern. Diffusion was slightly decreased to 66%. One year ago she did have a normal arterial blood gas with no evidence of CO2 retention." Using PRN 3L, mostly using with exertion, not using every day. Nasal septal deviation (Chronic) Nocturnal hypoxia (Chronic) 2-3L N/C - during night Nontoxic multinodular goiter (Chronic) TRUMAN (obstructive sleep apnea) PRESCRIBED BIPAP-CAN'T TOLERATE-CLAUSTROPHOBIC Anemia due to chronic kidney disease Chronic kidney disease, stage 4 (severe) Medical History (Updated 03/04/24 @ 17:33 by Brendan Herron MD) Type 2 diabetes mellitus History of femur fracture (04/08/23) Displaced fracture of neck of left femur, from a fall-saw orthopedics and had surgery Left hip postoperative wound infection History of partial replacement of left hip joint using bipolar prosthesis (04/09/23) Retention of urine, unspecified Obsessive compulsive disorder History of COVID-2019--mild symptoms, no symptoms now On home oxygen therapy 2L n/c prn sob Fluid retention Right sided sciatica AV fistula September 07, 2020 > right wrist > not on dialysis at present Atrial fibrillation and flutter Generalized weakness Syncope PAF (paroxysmal atrial fibrillation) Atrial fibrillation, new onset dx August 2020> cardioversions x2. on eliquis > follows Dr. Fontaine Cardiac murmur Mild TR noted on 2019 echo. Obesity hypoventilation syndrome Morbid obesity BMI 40.1 Diastolic congestive heart failure Euvolemic on exam at [facility] 09/02/20. follows with Dr. Fontaine Chronic rhinitis Hypertension Diabetes IDDM Surgical History Status post gastric bypass for obesity 09/14/2020- Dr. Ash- [facility] History of incision and drainage (05/06/23) Incision and Drainage, Debridement Sacral Wound - Yasmany Langley DO History of bilateral cataract extraction History of cardioversion x2 History of arthroscopy x2 left shoulder History of total shoulder replacement LEFT 07/19 2015 fracture History of esophagogastroduodenoscopy (EGD) History of colonoscopy History of dermoid cyst excision S/P tooth extraction History of mandibular surgery FULL ROM H/O section x1 Hx of cholecystectomy Family History Daughter Multiple allergies Bipolar disorder Aunt Breast cancer Mother Diabetes Heart disease Hyperthyroidism Hypertension Father Gastric cancer Hearing loss Myocardial infarction Grandfather Heart disease Family/Other Osteoporosis Lung cancer Hypertension Stroke Brother Hypertension Grandmother Ovarian cancer Sister Diabetes Migraine Other No family history of adverse response to anesthesia Denies family history of Prostate cancer Colorectal cancer Uterine cancer Social History Smoking Status: Never smoker Second Hand Exposure: No; Do You Dip or Chew Tobacco: No; Hx Alcohol Use: No Hx Substance Use: No Preferred Language: Frisian Communication Ability: Effective Visual Impairment: No Limitations Head Grower Required: No Beliefs That Will Affect Care: None marital status: Current Living Situation: [facility] Current Living Situation Comment: [facility] current occupational status: employed and unemployed Feels Safe at Home: Yes Safety Concerns: Feels Safe At This Time Childhood Exposure to Second-Hand Smoke: Yes Dental Care, Regularly: Yes Physical Activity Frequency: Does not Exercise Seatbelt Use: always Sunscreen Use: Yes Assistive Devices: Walker and Wheelchair Review of Systems 2 Review of Systems: All systems reviewed & are unremarkable except as noted in HPI & below Physical Exam 2 Constitutional: well developed; + not well nourished and no acute distress Eyes: PERRL, conjunctivae normal, anicteric sclerae ENMT: Mouth: + dry oral mucous membranes Respiratory: normal respiratory effort; no respiratory distress A uscultation: + diminished lung sounds (bibasal) Cardiovascular: Rate/Rhythm: regular rate and + irregularly irregular Heart Sounds: no murmur Extremities: normal capillary refill, + calf tenderness (right) and + pedal edema Gastrointestinal (Abdomen): normal bowel sounds, soft, nontender, no hepatosplenomegaly Skin: Right abdominal wall ecchymosis with dried eschar wound and Right lower back, buttocks and thigh erythema (some of which is blanchable) and swelling with skin breakdown Right lower extremity swelling R > L with ecchymosis as below on medial calf Left upper extremity pitting edema and ecchymosis in multiple areas Left back and abdominal excoriation with pitting edema Neurologic: moves all extremities, awake and + confused Psychiatric: Orientation: alert, oriented to person and oriented to place; + not oriented to time Results & Data Results & Data Vital Signs (Past 12 Hours) Vital Signs Temp Pulse Pulse Resp BP BP Pulse Ox 03/04/24 14:02 92 H 8 L 113/76 99 03/04/24 13:45 88 8 L 137/75 100 03/04/24 13:32 85 10 L 116/81 100 03/04/24 13:32 36.4 C L 56 L 12 116/81 96 03/04/24 13:18 35.2 C L 68 10 L 143/77 H 99 03/04/24 12:56 35.3 C L 90 12 95 03/04/24 12:49 73 12 90 03/04/24 12:30 84 11 L 137/60 93 03/04/24 12:29 86 14 137/60 86 L 03/04/24 12:26 98 H 10 L 80/42 L 88 L 03/04/24 12:16 35.4 C L 81 13 92 03/04/24 11:01 63 10 L 98 03/04/24 10:46 03/04/24 10:12 88 03/04/24 10:12 36.4 C 89 8 L 82/50 L 92 O2 Del Method O2 Flow Rate 03/04/24 14:02 Nasal Cannula 4 03/04/24 13:45 03/04/24 13:32 03/04/24 13:32 Nasal Cannula 4 03/04/24 13:18 Nasal Cannula 4 03/04/24 12:56 Nasal Cannula 4 03/04/24 12:49 Nasal Cannula 5 03/04/24 12:30 03/04/24 12:29 Nasal Cannula 5 03/04/24 12:26 Nasal Cannula 5 03/04/24 12:16 Nasal Cannula 5 03/04/24 11:01 Nasal Cannula 2 03/04/24 10:46 Nasal Cannula 4 03/04/24 10:12 03/04/24 10:12 Nasal Cannula 4 Laboratory Results Abnormal lab results 03/04/24 03/04/24 03/04/24 Range/Units 10:30 10:33 12:15 Hgb 10.8 L (12.0-16.0) g/dl POC Hgb 11.6 L (12.0-16.0) g/dl Hct 33.7 L (37.0-47.0) % POC Hct 34 L (37-47) % RDW Std Deviation 49.9 H (36.4-46.3) fL RDW Coeff of Chantal 17.2 H (11.5-14.5) % Neut # (Auto) 8.31 H (1.40-6.50) K/uL Lymph # (Auto) 1.15 L (1.20-3.40) K/uL PT 14.6 H (9.0-12.0) Seconds INR 1.4 H (0.9-1.1) APTT 41 H (21-31) Seconds VBG pH 7.31 L (7.36-7.41) VBG pCO2 37 L (38-50) mmHg Carbon Dioxide 19 L (21-32) mmol/L POC Total CO2 19 L (24-31) mmol/L POC Anion Gap 15.0 L (16-25) mmol/L POC BUN 81 H (7-18) mg/dl BUN 91 H (6-23) mg/dl Creatinine 3.30 H (0.6-1.2) mg/dl POC Creatinine 3.5 H (0.6-1.3) mg/dl BUN/Creatinine Ratio 27.6 H (10-20) Calcium 6.9 L (8.6-10.3) mg/dl POC Ioniz Calcium Kat 0.92 L (1.12-1.32) mmol/l Magnesium 1.6 L (1.7-2.4) mg/dl AST 40 H (13-39) U/L Alkaline Phosphatase 216 H (34-104) U/L Troponin I High Sens 16.4 H (0-14) pg/ml Total Protein 4.7 L (6.0-8.3) gm/dl Albumin < 1.5 L (3.4-5.0) gm/dl Procalcitonin 0.79 H (0-0.5) ng/ml Ur Leukocyte Esterase 2+ H (Negative) Urine WBC (Auto) 11-20 H (0-5) /hpf U Hyaline Cast (Auto) 3-5 H (0-2) /lpf Diagnostic Findings XR chest 1V portable HISTORY: 63 years-old Female sepsis acute sepsis COMPARISON: 07/29/2023 TECHNIQUE: AP view of the chest FINDINGS: Cardiac silhouette is enlarged. Small pleural effusions with mild left basilar opacities. Only vascular congestion with interstitial coarsening. No pneumothorax. Left shoulder arthroplasty. Degenerative changes of the spine and right shoulder. IMPRESSION: 1. Cardiomegaly with pulmonary vascular congestion and probable mild pulmonary edema. 2. Small pleural effusions with mild left basilar opacities favoring atelectasis. Pneumonia considered less likely. CT OF THE ABDOMEN AND PELVIS WITHOUT CONTRAST CLINICAL HISTORY: Abdominal wall cellulitis. COMPARISON STUDY: Pelvic ultrasound October 28, 2023. CT of the abdomen and pelvis December 01, 2020. TECHNIQUE: Axial images of the abdomen and pelvis were obtained without IV contrast. Images were reviewed in the axial, sagittal, and coronal planes. Automated exposure control was utilized for the study. A dose lowering technique was utilized adhering to the principles of ALARA. FINDINGS: The heart is enlarged. Moderate bilateral pleural effusions are partially imaged. Associated subpleural opacities favor atelectasis although an infectious process could appear similar. Patchy right middle lobe and additional right lower lobe opacities favor an infectious process. Marked anasarca is noted, including left breast edema. The abdominal wall/flanks are partially imaged on this examination. Extensive subcutaneous edema is noted. No well- defined fluid collections are present. There is no soft tissue gas. Evaluation of the abdomen and pelvis is suboptimal on this unenhanced examination. There is a small hiatal hernia. Postoperative findings consistent with gastric bypass are noted. There is no evidence for a bowel obstruction. There is a large amount of stool within the rectum and moderate amount stool within the colon. Sigmoid diverticulosis without evidence for acute diverticulitis. There is extensive vascular calcification. Unenhanced images of the liver, spleen, adrenal glands, kidneys and pancreas are unremarkable. There are no fluid collections within the abdomen or pelvis. A Hawkins within the bladder is present. There is a small amount of abdominal and pelvic ascites. Left hip arthroplasty is noted. No acute periprosthetic fracture is noted. Heterotopic ossification/callus formation of the proximal left femur similar appearance to prior CT July 30, 2023. There is no lymphadenopathy. No acute fractures within the lumbar spine, pelvis or hips are identified. IMPRESSION: 1. Suboptimal evaluation of the abdomen and pelvis given lack of IV contrast. 2. Evidence for volume overload with marked anasarca, moderate bilateral pleural effusions and a small amount of abdominal and pelvic ascites. Extensive body wall edema, partially imaged on this exam. No fluid collections identified. No soft tissue gas. 3. Dependent airspace opacities within the lower lobes which favor atelectasis although pneumonia could appear similar. Patchy right middle lobe and additional right lower lobe airspace opacities which favor pneumonia. 4. No bowel obstruction. Sigmoid diverticulosis. No evidence for acute diverticulitis. 5. Large amount stool within the rectum and moderate amount of stool within the colon. Medications Administered ER Medications Given: NSS 1L bolus Zosyn 4.5g IV Vancomycin 2000mg IV NSS 1L bolus LR 1L bolus ECG Rate (beats per minute): 89 Rhythm: atrial fibrillation Findings: + left axis deviation Comparison ECG Date: from Code Status & VTE Plan Code Status Full VTE Prophylaxis Plan VTE Prophylaxis will be ordered: Yes PG Care Time/CCT Total # of Minutes Spent Total Time Spent with Patient: Total time spent is greater than 50% in coordination of care (as documented) at patient's floor/unit and/or counseling patient: Coding Level of Care Code 96776 INT INP/OBS CARE 3/75MIN Diagnoses Sepsis A41.9 Sepsis acute organ dysfunction status: unspecified Sepsis type: sepsis due to unspecified organism Metabolic encephalopathy G93.41 PATY (acute kidney injury) N17.9 Anasarca R60.1 Acute urinary retention R33.8 Hypocalcemia E83.51 Hypomagnesemia E83.42 Atrial fibrillation I48.91 Atrial fibrillation type: unspecified Right leg swelling M79.89 Cirrhosis K74.60 TRUMAN (obstructive sleep apnea) G47.33 Ambulatory dysfunction R26.2 Severe protein-calorie malnutrition E43 Abdominal wall cellulitis L03.311 UTI (urinary tract infection) N39.0 Pneumonia J18.9 (1) Sepsis Sepsis acute organ dysfunction status: unspecified Sepsis type: sepsis due to unspecified organism Qualified Code(s): A41.9 - Sepsis, unspecified organism (8) Atrial fibrillation Atrial fibrillation type: unspecified Qualified Code(s): I48.91 - Unspecified atrial fibrillation
[2024-03-04 15:20] LABS: C Reactive Protein 15.15 mg/dl (0-0.5); Phosphorus 6.3 mg/dl (2.5-4.9)
[2024-03-04 15:51] LABS: Creatinine Urine Random 51.2 mg/dl; Protein Creatinine Ratio Urine 0.4 (0-0.2); Total Protein Urine Random 19.3 mg/dl (0-11.9)
[2024-03-04] MEDS ORDERED: METOPROLOL TARTRATE 1 MG/ML VIAL IV PRN (17:35)
--- NOTE | 2024-03-04 18:20 | Ultrasound Report ---
US venous doppler LE RT HISTORY: 63 years-old Female right leg swelling and pain ?DVT acute pain and swelling of the right l ower leg COMPARISON: None TECHNIQUE: Multiple real-time sonographic images of the right lower extremity deep venous structures were obtained assessing grayscale appearance, color and spectral flow. FINDINGS: Normal flow, compressibility, phasicity and augmentation. Subcutaneous edema limits the study. IMPRESSION: No sonographic evidence of deep venous thrombosis. ACT 112: Negative or not required by law. The above report was generated using voice recognition software. It may contain grammatical, syntax o r spelling errors. Electronically signed by: Timothy Tracy M.D. 03/04/2024 6:19 PM
--- OUTSIDE RECORDS SUMMARY | 2024-03-04 18:48 | External Medical Summary | Continuity Of Care Document ---
Author Name Unknown Address [address] [place] [address] Organization [facility] ( ) Care Team Providers Care Director Of Security Name Role Phone Emerald Hua Primary Care Provider [phone] Allergies Allergy Reaction Start Date End Date Status IODINATED CONTRAST MEDIA Active PROMETHAZINE Active Problems Code Description Start Date End Date Status M86.9 Osteomyelitis, unspecified 11/29/2023 0 Active E11.40 Type 2 diabetes evan itus with diabetic neuropathy, unspecified 11/29/2023 Active E11.29 Type 2 diabetes evan itus with other diabetic kidney complication 11/29/2023 Active I50.32 Chronic diastolic (congestive) heart failure Active I48.91 Unspecified atrial fibrillation 11/29/2023 00/ Active R19.7 Diarrhea, unspecified 11/29/2023 Act mitchel R53.1 Weakness 11/29/2023 Active R53.81 Other malaise 11/29/2023 Active E78.00 Pure hypercholesterolemia, unspecified 11/29/19 24 Active J44.9 Chronic obstructive pulmonary disease, unspecified 11/29/2023 Active I10. Essential (primary) hypertension 11/29/2023 Active G47.36 Sleep related hypove ntilation in conditions classified elsewhere 11/29/2023 Active R35.0 Frequency of micturition 11/29/2023 Active Z87.81 Personal history of (healed) traumatic fracture 11/29/2023 Active T84.52XD Infection and inflam matory reaction due to internal left hip prosthesis, subsequent encounter 11/29/2023 Active L89.159 Pressure ulcer of sa cral region, unspecified stage 11/29/2023 Active R53.1 Weakness 08/22/2023 Active T81.49XD Infection following a procedure, other surgical site, subsequent encounter 08/22/2023 Active E87.5 Hyperkalemia 08/22/2023 Active E11.9 Type 2 diabetes mellitus without complications 08/22/2023 Active N18.30 Chronic kidney disease, stage 3 unspecified 12/2023 Active R79.89 Other specified abno rmal findings of blood chemistry 08/22/2023 Active R74.8 Abnormal levels of other serum enzymes 08/22/19 Active E43. Unspecified severe protein-calorie malnutrition 11/29/2023 Active E61.0 Copper deficiency 11/29/2023 Active R26.81 Unsteadiness on feet 08/29/2023 Acti ve M62.81 Muscle weakness (generalized) 08/29/2023 Active N18.30 Chronic kidney disease, stage 3 unspecified Active R53.1 Weakness 10/01/2023 Active M62.81 Muscle weakness (generalized) 11/05/2023 Active VITAL SIGNS Date Time Diastolic blood pressure Systolic blood pressure Body height Body weight Temperature SpO2 Blood Sugar Pulse Respirations 6 65.00 mm[Hg] - Sitting 107.00 mm[Hg] - Sitting 98.80 Ear 100.0 0% 145.00 /min 20.00/min 77661 0 62.00 mm[Hg] - Sitting 114.00 mm[Hg] - Sitting 98.50 Ear 98.00 % 66.00/ min 18.00/min 45 3 53 9 70.00 mm[Hg] - Sitting 141.00 mm[Hg] - Sitting 97.20 Ear 94.00 % 69.00/ min 20.00/min 16991 706 12110 6 58.00 mm[Hg] - Sitting 96.00 mm[Hg] - Sitting 97.60 Ear 96.00 % 76.00/ min 18.00/min 64979 706 60047 9 56.00 mm[Hg] - Sitting 117.00 mm[Hg] - Sitting 97.10 Ear 94.00 % 78.00/ min 16.00/min 37716 707 74990 5 64.00 mm[Hg] - Sitting 108.00 mm[Hg] - Sitting 97.30 Ear 98.00 % 65.00/ min 18.00/min 54612 712 91922 4 96155 722 14602 0 55.00 mm[Hg] - Sitting 101.00 mm[Hg] - Sitting 95.00 % 72.00/ min 16.00/min Immunizations Vaccine Date Status COVID-19 10/20/2020 Completed COVID-19 11/18/2020 Completed COVID-19 06/05/2021 Completed COVID-19 10/13/2021 Completed COVID-19 04/10/2022 Completed Influenza 08/22/2023 Resident Refused (PCV13)Pneumococcal 03/25/2019 Completed (PPSV23)Pneumococcal 03/23/2020 Completed Shingles 10/13/2021 Completed TDaP 05/15/2016 Completed
--- OUTSIDE RECORDS SUMMARY | 2024-03-04 18:48 | External Medical Summary | Continuity Of Care Document ---
Author Name Unknown Address [address] [place] [address] Organization [facility] ( ) Care Team Providers Care Technician Plant And Maintenance Name Role Phone Emerald Hua Primary Care Provider [phone] Allergies Allergy Reaction Start Date End Date [...] 98.80 Ear 100.0 0% 145.00 /min 20.00/min 86521 0 62.00 mm[Hg] - Sitting 114.00 mm[Hg] - Sitting 98.50 Ear 98.00 % 66.00/ min 18.00/min 45 3 53 9 70.00 mm[Hg] - Sitting 141.00 mm[Hg] - Sitting 97.20 Ear 94.00 % 69.00/ min 20.00/min 49024 706 61407 6 58.00 mm[Hg] - Sitting 96.00 mm[Hg] - Sitting 97.60 Ear 96.00 % 76.00/ min 18.00/min 05632 706 07602 9 56.00 mm[Hg] - Sitting 117.00 mm[Hg] - Sitting 97.10 Ear 94.00 % 78.00/ min 16.00/min 06661 707 79762 5 64.00 mm[Hg] - Sitting 108.00 mm[Hg] - Sitting 97.30 Ear 98.00 % 65.00/ min 18.00/min 73655 712 12803 4 46474 722 39928 0 55.00 mm[Hg] - Sitting 101.00 mm[Hg] - Sitting 95.00 % 72.00/ min 16.00/min Immunizations Vaccine Date Status COVID-19 10/20/2020 Completed COVID-19 11/18/2020 Completed COVID-19 06/05/2021 Completed COVID-19 10/13/2021 Completed COVID-19 04/10/2022 Completed Influenza 08/22/2023 Resident Refused (PCV13)Pneumococcal 03/25/2019 Completed (PPSV23)Pneumococcal 03/23/2020 Completed Shingles 10/13/2021 Completed TDaP 05/15/2016 Completed
--- OUTSIDE RECORDS SUMMARY | 2024-03-04 18:48 | External Medical Summary | Continuity Of Care Document ---
Author Name Unknown Address [address] [place] [address] Organization [facility] ( ) Care Team Providers Care Meat Passer Name Role Phone Emerald Hua Primary Care Provider [phone] Allergies Allergy Reaction Start Date End Date [...] weight Temperature SpO2 Blood Sugar Pulse Respirations 722 64483 0 55.00 mm[Hg] - Sitting 101.00 mm[Hg] - Sitting 95.00 % 72.00/ min 16.00/min 807 26037 1 65.00 mm[Hg] - Sitting 108.00 mm[Hg] - Sitting 76.00/ min 807 44288 4 217[place]00 [place] [address] 816 61442 0 217.00 NI Immunizations Vaccine Date Status COVID-19 10/20/2020 Completed COVID-19 11/18/2020 Completed COVID-19 06/05/2021 Completed COVID-19 10/13/2021 Completed COVID-19 04/10/2022 Completed Influenza 08/22/2023 Resident Refused (PCV13)Pneumococcal 03/25/2019 Completed (PPSV23)Pneumococcal 03/23/2020 Completed Shingles 10/13/2021 Completed TDaP 05/15/2016 Completed
--- OUTSIDE RECORDS SUMMARY | 2024-03-04 18:48 | External Medical Summary | Continuity Of Care Document ---
Author Name Unknown Address [address] [place] [address] Organization [facility] ( ) Care Team Providers Care Director Sales Support Name Role Phone Emerald Hua Primary Care Provider [phone] Allergies Allergy Reaction Start Date End Date [...] weight Temperature SpO2 Blood Sugar Pulse Respirations 826 69146 8 71.00 mm[Hg] - Sitting 124.00 mm[Hg] - Sitting 81.00/ min 52081 830 15705 0 138.00 mg/dL 830 64187 6 60.00 mm[Hg] - Sitting 109.00 mm[Hg] - Sitting 98.00 % 77.00/ min 98334 903 46960 2 55.00 mm[Hg] - Sitting 98.00 mm[Hg] - Sitting 219.00 NI 98.00 Oral 54.00/ min 15839 915 29756 1 56.00 mm[Hg] - Sitting 93.00 mm[Hg] - Sitting 61.00/ min Immunizations Vaccine Date Status COVID-19 10/20/2020 Completed COVID-19 11/18/2020 Completed COVID-19 06/05/2021 Completed COVID-19 10/13/2021 Completed COVID-19 04/10/2022 Completed Influenza 08/22/2023 Resident Refused (PCV13)Pneumococcal 03/25/2019 Completed (PPSV23)Pneumococcal 03/23/2020 Completed Shingles 10/13/2021 Completed TDaP 05/15/2016 Completed
--- OUTSIDE RECORDS SUMMARY | 2024-03-04 18:48 | External Medical Summary | Continuity Of Care Document ---
Author Name Unknown Address [address] [place] [address] Organization [facility] ( ) Care Team Providers Care Alliance Manager Name Role Phone Emerald Hua Primary Care Provider [phone] Allergies Allergy Reaction Start Date End Date [...] Temperature SpO2 Blood Sugar Pulse Respirations 722 61781 0 55.00 mm[Hg] - Sitting 101.00 mm[Hg] - Sitting 95.00 % 72.00/ min 16.00/min 807 73666 1 65.00 mm[Hg] - Sitting 108.00 mm[Hg] - Sitting 76.00/ min 807 17211 4 217.00 NI Immunizations Vaccine Date Status COVID-19 10/20/2020 Completed COVID-19 11/18/2020 Completed COVID-19 06/05/2021 Completed COVID-19 10/13/2021 Completed COVID-19 04/10/2022 Completed Influenza 08/22/2023 Resident Refused (PCV13)Pneumococcal 03/25/2019 Completed (PPSV23)Pneumococcal 03/23/2020 Completed Shingles 10/13/2021 Completed TDaP 05/15/2016 Completed
--- OUTSIDE RECORDS SUMMARY | 2024-03-04 18:48 | External Medical Summary | Continuity Of Care Document ---
Author Name Unknown Address [address] [place] [address] Organization [facility] ( ) Care Team Providers Care Middle [employer] Reading Teacher Name Role Phone Emerald Hua Primary Care Provider [phone] Allergies Allergy Reaction Start Date End Date [...] failure Active I48.91 Unspecified atrial fibrillation 11/29/2023 00 Active R19.7 Diarrhea, unspecified 11/29/2023 Act mitchel [...] Temperature SpO2 Blood Sugar Pulse Respirations 722 88311 0 55.00 mm[Hg] - Sitting 101.00 mm[Hg] - Sitting 95.00 % 72.00/ min 16.00/min 807 60748 1 65.00 mm[Hg] - Sitting 108.00 mm[Hg] - Sitting 76.00/ min 807 06656 4 217.00 NI Immunizations Vaccine Date Status COVID-19 10/20/2020 Completed COVID-19 11/18/2020 Completed COVID-19 06/05/2021 Completed COVID-19 10/13/2021 Completed COVID-19 04/10/2022 Completed Influenza 08/22/2023 Resident Refused (PCV13)Pneumococcal 03/25/2019 Completed (PPSV23)Pneumococcal 03/23/2020 Completed Shingles 10/13/2021 Completed TDaP 05/15/2016 Completed
--- OUTSIDE RECORDS SUMMARY | 2024-03-04 18:48 | External Medical Summary | Continuity Of Care Document ---
Author Name Unknown Address [address] [place] [address] Organization [facility] ( ) Care Team Providers Care Automation Qa Lead Name Role Phone Emerald Hua Primary Care Provider [phone] Allergies Allergy Reaction Start Date End Date [...] Temperature SpO2 Blood Sugar Pulse Respirations 722 96341 0 55.00 mm[Hg] - Sitting 101.00 mm[Hg] - Sitting 95.00 % 72.00/ min 16.00/min 807 38361 1 65.00 mm[Hg] - Sitting 108.00 mm[Hg] - Sitting 76.00/ min 807 74813 4 217.00 NI Immunizations Vaccine Date Status COVID-19 10/20/2020 Completed COVID-19 11/18/2020 Completed COVID-19 06/05/2021 Completed COVID-19 10/13/2021 Completed COVID-19 04/10/2022 Completed Influenza 08/22/2023 Resident Refused (PCV13)Pneumococcal 03/25/2019 Completed (PPSV23)Pneumococcal 03/23/2020 Completed Shingles 10/13/2021 Completed TDaP 05/15/2016 Completed
--- OUTSIDE RECORDS SUMMARY | 2024-03-04 18:48 | External Medical Summary | Continuity Of Care Document ---
Author Name Unknown Address [address] [place] [address] Organization [facility] ( ) Care Team Providers Care Damage Cutter Name Role Phone Emerald Hua Primary Care Provider [phone] Allergies Allergy Reaction Start Date End Date [...] Temperature SpO2 Blood Sugar Pulse Respirations 722 71227 0 55.00 mm[Hg] - Sitting 101.00 mm[Hg] - Sitting 95.00 % 72.00/ min 16.00/min 807 57506 1 65.00 mm[Hg] - Sitting 108.00 mm[Hg] - Sitting 76.00/ min 807 93502 4 217.00 NI Immunizations Vaccine Date Status COVID-19 10/20/2020 Completed COVID-19 11/18/2020 Completed COVID-19 06/05/2021 Completed COVID-19 10/13/2021 Completed COVID-19 04/10/2022 Completed Influenza 08/22/2023 Resident Refused (PCV13)Pneumococcal 03/25/2019 Completed (PPSV23)Pneumococcal 03/23/2020 Completed Shingles 10/13/2021 Completed TDaP 05/15/2016 Completed
--- OUTSIDE RECORDS SUMMARY | 2024-03-04 18:48 | External Medical Summary | Continuity Of Care Document ---
Author Name Unknown Address [address] [place] [address] Organization [facility] ( ) Care Team Providers Care Contract Forester Name Role Phone Emerald Hua Primary Care Provider [phone] Allergies Allergy Reaction Start Date End Date [...] Temperature SpO2 Blood Sugar Pulse Respirations 722 67159 0 55.00 mm[Hg] - Sitting 101.00 mm[Hg] - Sitting 95.00 % 72.00/ min 16.00/min 807 50088 1 65.00 mm[Hg] - Sitting 108.00 mm[Hg] - Sitting 76.00/ min 807 38863 4 217.00 [place] [id number] 816 20329 0 217.00 NI Immunizations Vaccine Date Status COVID-19 10/20/2020 Completed COVID-19 11/18/2020 Completed COVID-19 06/05/2021 Completed COVID-19 10/13/2021 Completed COVID-19 04/10/2022 Completed Influenza 08/22/2023 Resident Refused (PCV13)Pneumococcal 03/25/2019 Completed (PPSV23)Pneumococcal 03/23/2020 Completed Shingles 10/13/2021 Completed TDaP 05/15/2016 Completed
--- OUTSIDE RECORDS SUMMARY | 2024-03-04 18:48 | External Medical Summary | Continuity Of Care Document ---
Author Name Unknown Address [address] [place] [address] Organization [facility] ( ) Care Team Providers Care Icu Manager Name Role Phone Emerald Hua Primary Care Provider [phone] Allergies Allergy Reaction Start Date End Date [...] Temperature SpO2 Blood Sugar Pulse Respirations 722 50537 0 55.00 mm[Hg] - Sitting 101.00 mm[Hg] - Sitting 95.00 % 72.00/ min 16.00/min 807 16841 1 65.00 mm[Hg] - Sitting 108.00 mm[Hg] - Sitting 76.00/ min 807 11615 4 217.00 NI Immunizations Vaccine Date Status COVID-19 10/20/2020 Completed COVID-19 11/18/2020 Completed COVID-19 06/05/2021 Completed COVID-19 10/13/2021 Completed COVID-19 04/10/2022 Completed Influenza 08/22/2023 Resident Refused (PCV13)Pneumococcal 03/25/2019 Completed (PPSV23)Pneumococcal 03/23/2020 Completed Shingles 10/13/2021 Completed TDaP 05/15/2016 Completed
--- OUTSIDE RECORDS SUMMARY | 2024-03-04 18:48 | External Medical Summary | Continuity Of Care Document ---
Author Name Unknown Address [address] [place] [address] Organization [facility] ( ) Care Team Providers Care Friend Of The Court Name Role Phone Emerald Hua Primary Care Provider [phone] Allergies Allergy Reaction Start Date End Date [...] Temperature SpO2 Blood Sugar Pulse Respirations 722 66197 0 55.00 mm[Hg] - Sitting 101.00 mm[Hg] - Sitting 95.00 % 72.00/ min 16.00/min 807 73409 1 65.00 mm[Hg] - Sitting 108.00 mm[Hg] - Sitting 76.00/ min 807 47975 4 217.00 NI Immunizations Vaccine Date Status COVID-19 10/20/2020 Completed COVID-19 11/18/2020 Completed COVID-19 06/05/2021 Completed COVID-19 10/13/2021 Completed COVID-19 04/10/2022 Completed Influenza 08/22/2023 Resident Refused (PCV13)Pneumococcal 03/25/2019 Completed (PPSV23)Pneumococcal 03/23/2020 Completed Shingles 10/13/2021 Completed TDaP 05/15/2016 Completed
--- OUTSIDE RECORDS SUMMARY | 2024-03-04 18:49 | External Medical Summary | Continuity Of Care Document ---
Author Name Unknown Address [address] [place] [address] Organization [facility] ( ) Care Team Providers Care Social Work Msw Name Role Phone Emerald Hua Primary Care Provider [phone] Allergies Allergy Reaction Start Date End Date [...] 98.80 Ear 100.0 0% 145.00 /min 20.00/min 89664 0 62.00 mm[Hg] - Sitting 114.00 mm[Hg] - Sitting 98.50 Ear 98.00 % 66.00/ min 18.00/min 45 3 53 9 70.00 mm[Hg] - Sitting 141.00 mm[Hg] - Sitting 97.20 Ear 94.00 % 69.00/ min 20.00/min 45079 706 35196 6 58.00 mm[Hg] - Sitting 96.00 mm[Hg] - Sitting 97.60 Ear 96.00 % 76.00/ min 18.00/min 06158 706 79124 9 56.00 mm[Hg] - Sitting 117.00 mm[Hg] - Sitting 97.10 Ear 94.00 % 78.00/ min 16.00/min 21241 707 61237 5 64.00 mm[Hg] - Sitting 108.00 mm[Hg] - Sitting 97.30 Ear 98.00 % 65.00/ min 18.00/min 97184 712 79017 4 29683 722 93263 0 55.00 mm[Hg] - Sitting 101.00 mm[Hg] - Sitting 95.00 % 72.00/ min 16.00/min Immunizations Vaccine Date Status COVID-19 10/20/2020 Completed COVID-19 11/18/2020 Completed COVID-19 06/05/2021 Completed COVID-19 10/13/2021 Completed COVID-19 04/10/2022 Completed Influenza 08/22/2023 Resident Refused (PCV13)Pneumococcal 03/25/2019 Completed (PPSV23)Pneumococcal 03/23/2020 Completed Shingles 10/13/2021 Completed TDaP 05/15/2016 Completed
--- OUTSIDE RECORDS SUMMARY | 2024-03-04 18:49 | External Medical Summary | Continuity Of Care Document ---
Author Name Unknown Address [address] [place] [address] Organization [facility] ( ) Care Team Providers Care Veterinarian Laboratory Animal Care Name Role Phone Emerald Hua Primary Care Provider [phone] Allergies Allergy Reaction Start Date End Date [...] 98.80 Ear 100.0 0% 145.00 /min 20.00/min 99942 0 62.00 mm[Hg] - Sitting 114.00 mm[Hg] - Sitting 98.50 Ear 98.00 % 66.00/ min 18.00/min 45 3 53 9 70.00 mm[Hg] - Sitting 141.00 mm[Hg] - Sitting 97.20 Ear 94.00 % 69.00/ min 20.00/min 47737 706 69194 6 58.00 mm[Hg] - Sitting 96.00 mm[Hg] - Sitting 97.60 Ear 96.00 % 76.00/ min 18.00/min 47451 706 42783 9 56.00 mm[Hg] - Sitting 117.00 mm[Hg] - Sitting 97.10 Ear 94.00 % 78.00/ min 16.00/min 45772 707 96362 5 64.00 mm[Hg] - Sitting 108.00 mm[Hg] - Sitting 97.30 Ear 98.00 % 65.00/ min 18.00/min 05683 712 07189 4 84379 722 99120 0 55.00 mm[Hg] - Sitting 101.00 mm[Hg] - Sitting 95.00 % 72.00/ min 16.00/min Immunizations Vaccine Date Status COVID-19 10/20/2020 Completed COVID-19 11/18/2020 Completed COVID-19 06/05/2021 Completed COVID-19 10/13/2021 Completed COVID-19 04/10/2022 Completed Influenza 08/22/2023 Resident Refused (PCV13)Pneumococcal 03/25/2019 Completed (PPSV23)Pneumococcal 03/23/2020 Completed Shingles 10/13/2021 Completed TDaP 05/15/2016 Completed
[2024-03-04] MEDS: PIPERACILLIN/TAZOBACTAM 4.5 GM/100 ML BAG IV SCH (19:15)
[2024-03-04] MEDS ORDERED: traZODone HCL 50 MG TAB PO SCH (21:00)
[2024-03-04] MEDS: NYSTATIN POWDER 15GM BTL EXT SCH (21:59)
[2024-03-04] MEDS: APIXABAN 5 MG TABLET PO SCH (22:00)
[2024-03-04] MEDS: ZINC SULFATE 220 MG CAPSULE PO SCH (22:00)
[2024-03-04] MEDS: busPIRone 5 MG TAB PO SCH (22:00)
[2024-03-04] MEDS: CALCIUM CARBONATE 1250MG TAB PO SCH (22:00)
[2024-03-04] MEDS: POLYETHYLENE (MIRALAX) 17 GM PACK PO SCH (22:00)
[2024-03-04] MEDS: PREGABALIN 25 MG CAP PO SCH (22:05)
[2024-03-04] MEDS: LINEZOLID 600 MG/300 ML BAG IV SCH (23:18)
--- NOTE | 2024-03-05 06:28 | Electrocardiogram Report ---
Test Reason : Blood Pressure : */* mmHG Vent. Rate : 89 BPM Atrial Rate : * BPM P-R Int : * ms QRS Dur : 84 ms QT Int : 272 ms P-R-T Axes : * -38 87 degrees QTcB Int : 330 ms Atrial fibrillation Left axis deviation Low voltage QRS Inferior infarct , age undetermined Possible Anterolateral infarct (cited on or before 29-Jul-2023) Abnormal ECG When compared with ECG of 16-Nov-2023 16:54, Questionable change in initial forces of Lateral leads Nonspecific T wave abnormality, worse in Anterolateral leads Confirmed by Adebayo Moreno ([id number]) on 03/05/2024 6:27:51 AM Referred By: Alonso Wallace Confirmed By: Adebayo Moreno
[2024-03-05] MEDS: DOCUSATE SODIUM 100 MG CAP PO ONE ×2 (08:14→11:29)
[2024-03-05] MEDS: MULTIVITAMIN TAB PO SCH (08:18)
[2024-03-05] MEDS: CHOLECALCIFEROL 125 MCG (5,000 UNITS) TAB PO SCH (08:18)
[2024-03-05] MEDS: FERROUS SULFATE 325 MG TAB PO SCH (08:19)
[2024-03-05 10:14] LABS: Base Excess VBG -6.4 mEq/L; HCO3 VBG 18 mmol/L; Oxygen Saturation VBG 83.2 %; PCO2 VBG 33 mmHg (38-50); PO2 VBG 52 mmHg; pH VBG 7.35 (7.36-7.41)
[2024-03-05 10:20] LABS: Basophils # (auto) 0.01 K/uL (0.00-0.20); Basophils % (auto) 0.2 %; Eosinophils # (auto) 0.02 K/uL (0.00-0.50); Eosinophils % (auto) 0.3 %; Hemoglobin 8.9 g/dl (12.0-16.0); Immature Granulocytes # (auto) 0.04 K/uL (0.01-0.20); Immature Granulocytes % (auto) 0.6 %; Lymphocytes # (auto) 0.91 K/uL (1.20-3.40); Lymphocytes % (auto) 13.7 %; Mean Corpuscular Hemoglobin 25.5 pg (25.0-34.0); Mean Corpuscular Hgb Conc 31.8 g/dL (32.0-36.0); Mean Corpuscular Volume 80.2 fL (80.0-100.0); Mean Platelet Volume 12.2 fL (9.4-12.4); Monocytes # (auto) 0.39 K/uL (0.11-0.59); Monocytes % (auto) 5.9 %; Neutrophils # (auto) 5.29 K/uL (1.40-6.50); Neutrophils % (auto) 79.3 %; Platelet Count 91 K/uL (130-400); RDW Coefficient of Variation 17.2 % (11.5-14.5); RDW Standard Deviation 49.5 fL (36.4-46.3); Red Blood Count 3.49 M/uL (4.20-5.40); White Blood Count 6.66 K/ul (4.8-10.8)
[2024-03-05 10:42] LABS: Anion Gap 10 (3-11); BUN Creatinine Ratio 27.8 (10-20); Blood Urea Nitrogen 87 mg/dl (6-23); Calcium 6.5 mg/dl (8.6-10.3); Carbon Dioxide 19 mmol/L (21-32); Chloride 109 mmol/L (98-107); Creatinine Clr Calc Pharmacy 23.1 ml/min; Est GFR (African American) 17.2 ml/min; Est GFR (Non-African American) 14.9 ml/min; Glucose 73 mg/dl (70-99(Fasting)); Potassium 4.1 mmol/L (3.5-5.1); Sodium 138 mmol/L (136-145)
[2024-03-05 10:57] LABS: Thyroid Stimulating Hormone 3.936 uIu/ml (0.300-4.500)
[2024-03-05 10:58] LABS: Alanine Aminotransferase 20 U/L (7-52); Albumin Level < 1.5 gm/dl (3.4-5.0); Alkaline Phosphatase 215 U/L (34-104); Aspartate Aminotransferase 40 U/L (13-39); Bilirubin,Total 0.5 mg/dl (0.2-1.0); Magnesium 1.6 mg/dl (1.7-2.4); Phosphorus 6.2 mg/dl (2.5-4.9); Total Protein 3.9 gm/dl (6.0-8.3)
--- NOTE | 2024-03-05 12:38 | XCELERA ---
[id number] \\[email or web address]\[id number]
[2024-03-05] MEDS: HYDROmorphone INJ 0.5 MG/0.5 ML SYR IV STA (15:49)
[2024-03-05] MEDS: PIPERACILLIN/TAZOBACTAM 4.5 GM/100 ML BAG IV SCH (16:04)
--- NOTE | 2024-03-05 23:33 | Hospitalist Progress Note ---
Date of Service March 05, 2024 Assessment & Plan (1) Sepsis: Plan: Multiple possible sources including pneumonia ([employer] PCR negative), urine and abdominal/sacral cellulitis (most likely driving cause) Does not meet SIRS criteria but does meet qSOFA (reduced AMS and sBP < 100) Patient on ciprofloxacin and doxycycline Since Continue Zosyn, switch to daptomycin if MRSA nasal swab negative as low likelihood MRSA PNA as cause but she reportedly had MRSA as a surface wound culture, if positive will use linezolid Follow up blood and urine cultures Patient appears stable on antibiotics. However, she does not appear to want to eat anything. Concerned for depression. She is agreeable to a DNR/DNI code status. is at bedside and agrees that she is able to make her decisions. Will consult psych for input on possible depression. (2) Metabolic encephalopathy: Plan: Ammonia WNL TSH with AM labs Suspect secondary to hypotension, infection, opiate use / sedating medications Continue to hold trazodone, opiates, diltiazem and diuretics (3) PATY (acute kidney injury): Plan: Urine retention on arrival with undetectable BP - suspect combination of both causing PATY Hold off further IV fluids given normal lactate and lack of dizziness/lightheadedness Repeat BMP in AM (4) Anasarca: Plan: Albumin < 1.5 without significant proteinuria and significant ascites suggestive more of chronic poor nutritional state Likely to need to go back on diuretics if BP able to tolerate - consider using combination of furosemide with albumin to help with diuresis TTE to assess for any worsening cardiomyopathy (5) Acute urinary retention: Plan: On arrival to ER Now with hawkins catheter - consider trial without catheter prior to discharge if more ambulatory (6) Hypocalcemia: Plan: Ionized calcium > 0.8 and hypotension resolved therefore no replacement given. Will repeat ionized calcium with AM labs. (7) Hypomagnesemia: Plan: Mg level 1.6 on arrival. Mg sulfate 1g IV (8) Atrial fibrillation: Plan: Permanent Rate controlled usually on diltiazem XR 180mg PO daily, likely current increased rate due to missing diltiazem but with hypotension on arrival will hold off further rate control currently Use metoprolol 5mg IV PRN for HR > 140 Continue anticoagulation with Eliquis (9) Right leg swelling: Plan: US venous doppler to r/o DVT although suspect poor venous drainage from echhymosis from this side (10) Cirrhosis: Plan: Noted on liver US in November. However no large ascites despite extensive anasaraca elsewhere suggesting most of her third spacing is more nutritional. Plt WNL. Ammonia within normal limits. (11) TRUMAN (obstructive sleep apnea): Plan: Intolerant to CPAP in the past, likely contributing towards right sided heart failure (12) Ambulatory dysfunction: Plan: Per her she has been bed bound for 5 months. (13) Severe protein-calorie malnutrition: Plan: Consult dietary (14) Abdominal wall cellulitis: (15) UTI (urinary tract infection): (16) Pneumonia: Plan VTE prophylaxis - Eliquis Diet - regular, consult dietary Disposition - admit to PCU Admission and Anticipated Discharge Date Admission Date: March 04, 2024 Subjective Patient reports she has not been eating for 2 weeks. She wants to . Her reports she has not been able to get out of bed for a months without the assistance Review of Systems Review of Systems: All systems reviewed & are unremarkable except as noted in HPI & below Physical Exam Constitutional: well developed; + not well nourished and no acute distress Eyes: PERRL, conjunctivae normal, anicteric sclerae Respiratory: normal respiratory effort; no respiratory distress Au scultation: + diminished lung sounds (bibasal) Cardiovascular: Rate/Rhythm: regular rate and + irregularly irregular Heart Sounds: no murmur Extremities: normal capillary refill, + calf tenderness (right) and + pedal edema Gastrointestinal (Abdomen): normal bowel sounds, soft, nontender, no hepatosplenomegaly Skin: Right abdominal wall ecchymosis with dried eschar wound and Right lower back, buttocks and thigh erythema (some of which is blanchable) and swelling with skin breakdown Right lower extremity swelling R > L with ecchymosis as below on medial calf Left upper extremity pitting edema and ecchymosis in multiple areas Left back and abdominal excoriation with pitting edema Neurologic: moves all extremities, awake and + confused Psychiatric: Orientation: alert and oriented x 3 Results & Data Results & Data Vital Signs (Past 12 Hours) Vital Signs Temp Pulse Resp BP Pulse Ox O2 Del Method O2 Del Method 03/05/24 19:40 36.4 C L 85 16 87/63 L 93 Nasal Cannula 03/05/24 17:13 Room Air 03/05/24 15:00 36.5 C 81 18 119/55 L 97 Nasal Cannula O2 Flow Rate 03/05/24 19:40 03/05/24 17:13 03/05/24 15:00 2 PG Care Time/CCT Total # of Minutes Spent Total Time Spent with Patient: Total time spent is greater than 50% in coordination of care (as documented) at patient's floor/unit and/or counseling patient: Coding Level of Care Code 21392 SUB INP/OBS CARE 3/50MIN Diagnoses Sepsis A41.9 Sepsis acute organ dysfunction status: unspecified Sepsis type: sepsis due to unspecified organism Metabolic encephalopathy G93.41 PATY (acute kidney injury) N17.9 Anasarca R60.1 Acute urinary retention R33.8 Hypocalcemia E83.51 Hypomagnesemia E83.42 Atrial fibrillation I48.91 Atrial fibrillation type: unspecified Right leg swelling M79.89 Cirrhosis K74.60 TRUMAN (obstructive sleep apnea) G47.33 Ambulatory dysfunction R26.2 Severe protein-calorie malnutrition E43 Abdominal wall cellulitis L03.311 UTI (urinary tract infection) N39.0 Pneumonia J18.9 Time Spent (min) 50 (1) Sepsis Sepsis acute organ dysfunction status: unspecified Sepsis type: sepsis due to unspecified organism Qualified Code(s): A41.9 - Sepsis, unspecified organism (8) Atrial fibrillation Atrial fibrillation type: unspecified Qualified Code(s): I48.91 - Unspecified atrial fibrillation
[2024-03-06 08:55] LABS: A calco-baum cmplx NotReported Not Detected (NotDetected); Bact fragilis Not Reported Not Detected (NotDetected); Blood Culture Id Panel See PCR Comment (NotDetected); C auris Not Reported Not Detected (NotDetected); Calbicans Not Reported Not Detected (NotDetected); Candida glabrata Not Reported Not Detected (NotDetected); Candida krusei Not Reported Not Detected (NotDetected); Cneoformans/gatti Not Reported Not Detected (NotDetected); Cparapsilosis Not Reported Not Detected (NotDetected); E cloacae compx Not Reported Not Detected (NotDetected); Efaecalis Not Reported Not Detected (NotDetected); Efaecium Not Reported Not Detected (NotDetected); Enterobacterales Not Reported Not Detected (NotDetected); Escherichia coli Not Reported Not Detected (NotDetected); H influenzae Not Reported Not Detected (NotDetected); K aerogenes Not Reported Not Detected (NotDetected); Koxytoca Not Reported Not Detected (NotDetected); Kpneumoniae grp Not Reported Not Detected (NotDetected); Lmonocyt Not Reported Not Detected (NotDetected); N meningitidis Not Reported Not Detected (NotDetected); P aeruginosa Not Reported Not Detected (NotDetected); Proteus spp Not Reported Not Detected (NotDetected); Salmonella spp Not Reported Not Detected (NotDetected); Staph lugdunensis Not Reported Not Detected (NotDetected); Staph spp. Not Reported DETECTED (NotDetected); Staphaureus Not Reported Not Detected (NotDetected); Staphepi Not Reported Not Detected (NotDetected); Stenmaltophilia Not Reported Not Detected (NotDetected); Strep agal(GrpB) Not Reported Not Detected (NotDetected); Strep pneum Not Reported Not Detected (NotDetected); Strep pyog (GrpA) Not Reported Not Detected (NotDetected); Strep spp Not Reported Not Detected (NotDetected)
[2024-03-06 09:05] LABS: Staphylococcus spp. DETECTED (NotDetected)
[2024-03-06 09:59] LABS: Hemoglobin 9.6 g/dl (12.0-16.0); Mean Corpuscular Hemoglobin 25.9 pg (25.0-34.0); Mean Corpuscular Volume 80.9 fL (80.0-100.0); Mean Platelet Volume 11.9 fL (9.4-12.4); Platelet Count 98 K/uL (130-400); RDW Coefficient of Variation 17.2 % (11.5-14.5); RDW Standard Deviation 50.4 fL (36.4-46.3); Red Blood Count 3.71 M/uL (4.20-5.40); White Blood Count 8.28 K/ul (4.8-10.8)
[2024-03-06 10:14] LABS: Alanine Aminotransferase 29 U/L (7-52); Albumin Level < 1.5 gm/dl (3.4-5.0); Alkaline Phosphatase 267 U/L (34-104); Anion Gap 9 (3-11); Aspartate Aminotransferase 63 U/L (13-39); BUN Creatinine Ratio 26.5 (10-20); Bilirubin,Total 0.6 mg/dl (0.2-1.0); Blood Urea Nitrogen 86 mg/dl (6-23); C Reactive Protein 10.73 mg/dl (0-0.5); Calcium 6.6 mg/dl (8.6-10.3); Carbon Dioxide 19 mmol/L (21-32); Chloride 109 mmol/L (98-107); Creatinine Clr Calc Pharmacy 22.5 ml/min; Est GFR (African American) 16.5 ml/min; Est GFR (Non-African American) 14.2 ml/min; Glucose 77 mg/dl (70-99(Fasting)); Magnesium 1.6 mg/dl (1.7-2.4); Phosphorus 6.3 mg/dl (2.5-4.9); Potassium 4.1 mmol/L (3.5-5.1); Sodium 137 mmol/L (136-145); Total Protein 4.1 gm/dl (6.0-8.3)
[2024-03-06 10:22] LABS: Prealbumin 4.7 mg/dl (20-40)
[2024-03-06] MEDS: HYDROmorphone INJ 0.5 MG/0.5 ML SYR IV STA (14:11)
[2024-03-06] MEDS: MAGNESIUM SULFATE / D5W 1 GM/100 ML BAG IV SCH (14:14)
--- NOTE | 2024-03-06 14:18 | Psychiatric Consultation ---
Date of Consultation March 06, 2024 Impression / Recommendations Impression Jerri Arellano is a 63 yo woman with a history of multiple chronic medical conditions including s/p gastric bypass and admitted for hypotension with concern for metabolic encephalopathy. Psychiatry consulted for depression, poor appetite, suicide risk assessment. She has a history of depression and anxiety. Diagnostically consistent with MDD as well as possible component from hypoactive delirium from worsening medical conditions and sepsis concern (reports of recent hallucinations at SNF prior to admission). Acute risk of self-harm is low given denial of active SI. holiness beliefs, strong deterrents. Appears she was taking fluvoxamine ER 150mg HS until hospitalization admission. Given her history of gastric bypass the IR formulation would be preferred. Recommend increasing the dose to further target depression and anxiety symptoms. If a possibility through the SNF, she would likely benefit from psychotherapy or other support sessions with a psychotherapy, MUSEUM HOST/HOSTESS, or spring encaser to process limitations of her physical illness and psychosocial stressors related to her relationship with her . Overall, I spent a total of 60 minutes with this case including review of chart records, review of labwork, review of EKG QTc, direct evaluation of the patient at bedside, counseling the patient, discussion of the patient with the Nurse and with the hospitalist provider, discussion with the psychiatric liason during clinical rounds and documentation in the electronic health record. (1) MDD (major depressive disorder), recurrent episode: (2) Metabolic encephalopathy: (3) Ambulatory dysfunction: (4) Anxiety and depression: (5) Claustrophobia: Plan -Start Luvox 100mg BID -Continue Buspar and trazodone as ordered (trazodone could be increased up to 50mg HS in the future if needed for insomnia if prior daytime somnolence improves with ongoing medical treatment). Psych History Identifying Data Jerri Arellano is a 63 yo woman with a history of multiple chronic medical conditions including s/p gastric bypass and admitted for hypotension with concern for metabolic encephalopathy. Psychiatry consulted for depression, poor appetite, suicide risk assessment. Chief Complaint "I'm ok". History of Present Illness Jerri was admitted due to concern for possible sepsis with increased sedation at her SNF and new hallucinations prior to admission. She reports worsening depression, with the most significant impact on appetite, stating she has no appetite. Sleep has been poor in the hospital due to disturbances, but prior to hospitalization, she reported sleeping too much. Appetite was also poor before hospitalization. She has been experiencing passive suicidal thoughts for at least a month, specifically thoughts of going to sleep and not waking up, but has never attempted suicide and denies any active SI. Denies any history of prior attempts, no access to guns. States deterrent to suicide of her family and that she believes there is a reason for her existence but is unsure of what it is. The patient identifies as holiness and finds comfort in spiritism during difficult times. She is currently taking Buspar for anxiety and claustrophobia, which she reports as helpful. She has not been taking Trazodone for sleep, as she felt she was sleeping too much, but would like to have it in the hospital to help with sleep. She has tried Zoloft and Lexapro for depression in the past but did not find them helpful. She has also tried Cymbalta and Wellbutrin, which were not effective. She has a history of gastric bypass surgery. She is experiencing significant pain, particularly during care provision. She reports that her mood would improve if her pain were better managed. She also expresses distress over the lack of support from her , stating that no matter what she says, it is not good enough. She is unsure if her would be open to couples therapy. She currently resides at [facility] and plans to return there after hospitalization, possibly as a permanent residence. She does not have a personal therapist but is open to the possibility of therapy while at [facility]. She reports feeling that her 's support is "downgrading constantly" and that "no matter what I say isn't right." She expresses frustration that her "trumps it up" when she says she's not feeling well, and she desires acknowledgment without criticism. She states she doesn't need excessive praise, just validation and understanding. Additional history per psych liason RN note from 03/05/2024: "Patient seen on rounds for initial consult, alert and oriented x 4 - seen lying in bed with eyes closed, denies SI/HI but does endorse passive wish at times - PHQ9 13+1, denies hallucinations/delusions, patient states she has a history of depression/anxiety and does agree these symptoms have become worse over the last year due to her medical issues, she states her sleep is good and at times she oversleeps but her main problem is her appetite, she denies any inpatient history and has been living at [facility] for the last year for physical rehab and ADL assistance, cites her and sister as local supports with her visiting her frequently during this admission, currently patient takes 5mg buspar BID and has taken trazodone 50mg PRN for sleep and ativan 0.5mg BID PRN for anxiety in the past - otherwise is unable to confirm much medication history, patient is agreeable to trialing medications to help with her depression and appetite, was thankful for visit, psychiatrist to round tomorrow." Allergies Allergy/AdvReac Type Severity Reaction Status Date / Time Iodinated Contrast Media Allergy Unknown Unknown Verified 12/17/23 07:28 [Iodinated Contrast- Oral and IV Dye] promethazine AdvReac Intermediate BROKEN Verified 12/17/23 07:28 CAPILLARIES FACE Home Medications Medication Instructions Recorded Confirmed Type lancets (OneTouch UltraSoft #400 ea 04/12/21 12/17/23 Rx Lancets) cyanocobalamin (vitamin B-12) 2,500 mcg PO 2XWK 10/08/22 03/04/24 History 2,500 mcg tablet blood sugar diagnostic #300 ea 12/10/22 12/17/23 Rx levothyroxine 50 mcg tablet 50 mcg PO DAILYBB #90 tabs 01/23/23 03/04/24 Rx insulin syringe-needle U-100 0.5 #400 ea 02/05/23 12/17/23 Rx mL 31 gauge x 5/16" (Easy Comfort Insulin Syringe) folic acid 1 mg tablet 1 mg PO QAM #90 tabs 02/22/23 03/04/24 Rx epoetin fernando-epbx 40,000 unit/mL 40,000 unit subcut UD 28 days #28 07/01/23 03/04/24 Rx injection solution (Retacrit) mL bumetanide 2 mg tablet 2 mg PO QAM 07/24/23 03/04/24 History metoprolol succinate 25 mg 25 mg PO DAILY #90 tabs 07/26/23 03/04/24 Rx tablet,extended release 24 hr apixaban 5 mg tablet (Eliquis) 5 mg PO BID #60 tabs 08/30/23 03/04/24 Rx acetaminophen 325 mg capsule 650 mg PO QID PRN Fever Or Pain 04/08/24 09/18/24 History (Tylenol) cholecalciferol (vitamin D3) 125 125 mcg PO DAILY 09/23/23 03/04/24 History mcg (5,000 unit) capsule diltiazem HCl 180 mg capsule,24 180 mg PO QAM 09/23/23 03/04/24 History hr,extended release loperamide 2 mg capsule 2 mg PO TID PRN Diarrhea 09/23/23 03/04/24 History (Anti-Diarrheal (loperamide)) ondansetron HCl 4 mg tablet 4 mg PO Q6H PRN nausea and vomiting 09/23/23 03/04/24 History calcium carbonate (Calcium 600) 600 mg PO BID 11/16/23 03/04/24 History lorazepam 0.5 mg tablet (Ativan) 0.5 mg PO BID PRN Anxiety 11/16/23 03/04/24 History copper gluconate 2 mg tablet 2 mg PO DAILY #1 tab 11/28/23 03/04/24 Rx selenium 100 mcg tablet 100 mcg PO DAILY #1 tab 11/29/23 03/04/24 Rx thiamine HCl (vitamin B1) 100 mg 100 mg PO QAM #0 tabs 11/29/23 03/04/24 Rx tablet amino acids-protein hydrolysate 15 See Rx Instructions .Route .COMPLEX 03/04/24 03/04/24 History gram-100 kcal/30 mL oral liquid pkt (Pro-Stat Sugar Free) atorvastatin 80 mg tablet 0 mg PO HS 03/04/24 03/04/24 History bisacodyl 10 mg rectal suppository 10 mg OK DAILY PRN Constipation 03/04/24 03/04/24 History bisacodyl 5 mg tablet,delayed 5 mg PO DAILY PRN Constipation 03/04/24 03/04/24 History release buspirone 5 mg tablet 5 mg PO BID 03/04/24 03/04/24 History calcium carbonate 500 mg PO Q6H PRN Indigestion 03/04/24 03/04/24 History carboxymethylcellulose sodium 1 % 1 drp OPB TID 03/04/24 03/04/24 History eye gel in a dropperette (Refresh Celluvisc) ciprofloxacin HCl 500 mg tablet 500 mg PO UD 03/04/24 03/04/24 History clotrimazole 1 % topical cream See Rx Instructions .Route .COMPLEX 03/04/24 03/04/24 History diclofenac sodium 1 % topical gel 4 g topical TID Left Hip 03/04/24 03/04/24 History doxycycline hyclate 100 mg tablet 100 mg PO BID 03/04/24 03/04/24 History ferrous sulfate 325 mg (65 mg 325 mg PO Q OTHER DAY 03/04/24 03/04/24 History iron) tablet,delayed release fluvoxamine 150 mg 150 mg PO HS 03/04/24 03/04/24 History capsule,extended release 24 hr honey 80 % topical gel (MediHoney See Rx Instructions .Route .COMPLEX 03/04/24 03/04/24 History (honey)) miconazole nitrate 2 % topical 1 applic topical BID Rash between 03/04/24 03/04/24 History powder (Remedy Antifungal) breast multivitamin with folic acid 400 1 tab PO DAILY 03/04/24 03/04/24 History mcg tablet (High Potency Multivitamin) multivitamin-ferrous 1 tab PO QAM 03/04/24 03/04/24 History fumarate-folic acid 18 mg-400 mcg tablet (Certavite-Antioxidant) oxycodone 10 mg tablet,crush 0 mg PO Q12H Chronic Pain Syndrome 03/04/24 03/04/24 History resistant,extended release 12 hr (OxyContin) oxycodone 10 mg tablet,crush 10 mg PO QAM Chronic Pain 03/04/24 03/04/24 History resistant,extended release 12 hr (OxyContin) oxycodone 5 mg tablet 0 mg PO Q6H PRN Moderate to severe 03/04/24 03/04/24 History pain polymyxin B sulfate 10,000 1 drp OPB DAILY 03/04/24 03/04/24 History unit-trimethoprim 1 mg/mL eye drops povidone-iodine 10 % topical swab See Rx Instructions .Route .COMPLEX 03/04/24 03/04/24 History pregabalin 25 mg capsule 25 mg PO BID 03/04/24 03/04/24 History sodium hypochlorite 0.25 % 1 applic topical UD 03/04/24 03/04/24 History solution (Dakin's Solution) trazodone 50 mg tablet 0 mg PO HS 03/04/24 03/04/24 History zinc sulfate 220 mg capsule 220 mg PO BID 03/04/24 03/04/24 History Patient History Medical History (Updated 03/06/24 @ 14:18 by Beatrice Stanley MD) Type 2 diabetes mellitus History of femur fracture (04/08/23) Displaced fracture of neck of left femur, from a fall-saw orthopedics and had surgery Left hip postoperative wound infection History of partial replacement of left hip joint using bipolar prosthesis (04/09/23) Retention of urine, unspecified Obsessive compulsive disorder History of COVID-2019--mild symptoms, no symptoms now On home oxygen therapy 2L n/c prn sob Fluid retention Right sided sciatica AV fistula September 07, 2020 > right wrist > not on dialysis at present Atrial fibrillation and flutter Generalized weakness Syncope PAF (paroxysmal atrial fibrillation) Atrial fibrillation, new onset dx August 2020> cardioversions x2. on eliquis > follows Dr. Fontaine Cardiac murmur Mild TR noted on 2019 echo. Obesity hypoventilation syndrome Morbid obesity BMI 40.1 Diastolic congestive heart failure Euvolemic on exam at [facility] 09/02/20. follows with Dr. Fontaine Chronic rhinitis Hypertension Diabetes IDDM Surgical History Status post gastric bypass for obesity 09/14/2020- Dr. Ash- [facility] History of incision and drainage (05/06/23) Incision and Drainage, Debridement Sacral Wound - Yasmany Langley DO History of bilateral cataract extraction History of cardioversion x2 History of arthroscopy x2 left shoulder History of total shoulder replacement LEFT 07/19 2015 fracture History of esophagogastroduodenoscopy (EGD) History of colonoscopy History of dermoid cyst excision S/P tooth extraction History of mandibular surgery FULL ROM H/O section x1 Hx of cholecystectomy Family History Daughter Multiple allergies Bipolar disorder Aunt Breast cancer Mother Diabetes Heart disease Hyperthyroidism Hypertension Father Gastric cancer Hearing loss Myocardial infarction Grandfather Heart disease Family/Other Osteoporosis Lung cancer Hypertension Stroke Brother Hypertension Grandmother Ovarian cancer Sister Diabetes Migraine Other No family history of adverse response to anesthesia Denies family history of Prostate cancer Colorectal cancer Uterine cancer Social History Smoking Status: Never smoker Second Hand Exposure: No; Do You Dip or Chew Tobacco: No; Hx Alcohol Use: No Hx Substance Use: No Preferred Language: Italian Communication Ability: Impaired Visual Impairment: No Limitations Clinical Researcher Required: No Beliefs That Will Affect Care: None marital status: Current Living Situation: Skilled Nursing Current Living Situation Comment: [facility] current occupational status: employed and unemployed Feels Safe at Home: Yes Safety Concerns: Feels Safe At This Time Childhood Exposure to Second-Hand Smoke: Yes Dental Care, Regularly: Yes Physical Activity Frequency: Does not Exercise Seatbelt Use: always Sunscreen Use: Yes Assistive Devices: Wheelchair Physical Exam Psychiatric: Orientation: alert and oriented x 3 Eye Contact: + fair eye contact Motor Behavior: no abnormal motor movements Speech: normal rate/rhythm/volume of speech Affect: + constricted affect Mood: + depre ssed mood and + anxious mood Thought Process: goal directed thought process Thought Content: reality based without delusions Suicidal Thoughts: denies suicidal thoughts (intermittent passive SI, denies any current nor recent active SI), denies suicidal plan and denies suicidal intent Homicidal Thoughts: denies homicidal thoughts Hallucinations: no auditory hallucinations and no visual hallucinations Cognition: attention grossly intact and language grossly intact Insight: + limited insight Judgment: + fair judgement Vital Signs (Past 24 Hours): Last Vital Signs Temp 36.3 C L 03/06/24 10:44 Pulse 81 03/06/24 13:00 Resp 16 03/06/24 13:00 BP 106/54 L 03/06/24 13:00 Pulse Ox 96 03/06/24 13:00 O2 Del Method Nasal Cannula 03/06/24 13:00 O2 Flow Rate 2 03/06/24 13:00 Results & Data (PSY) Medications Administered Apixaban (Apixaban 5 Mg Tablet) 5 mg PO BID [facility] Stop: 04/03/24 20:59 Last Admin: 03/06/24 09:05 Dose: 5 mg Documented By: Admin: 03/05/24 21:20 Dose: 5 mg Documented By: [facility] Admin: 03/05/24 08:19 Dose: 5 mg Documented By: Admin: 03/04/24 22:00 Dose: 5 mg Documented By: [facility] Buspirone HCl (Buspirone 5 Mg Tab) 5 mg PO BID [facility] Stop: 04/03/24 20:59 Last Admin: 03/06/24 09:05 Dose: 5 mg Documented By: Admin: 03/05/24 21:20 Dose: 5 mg Documented By: [facility] Admin: 03/05/24 08:18 Dose: 5 mg Documented By: Admin: 03/04/24 22:00 Dose: 5 mg Documented By: JENN Calcium Carbonate (Calcium Carbonate 1250mg Tab) 1 tab PO BID [facility] Stop: 04/03/24 20:59 Last Admin: 03/06/24 09:05 Dose: 1 tab Documented By: Admin: 03/05/24 21:19 Dose: Not Given Documented By: [facility] Admin: 03/05/24 08:19 Dose: Not Given Documented By: Admin: 03/04/24 22:00 Dose: Not Given Documented By: JENN Ferrous Sulfate (Ferrous Sulfate 325 Mg Tab) 325 mg PO Q48H [facility] Stop: 04/04/24 08:59 Last Admin: 03/05/24 08:19 Dose: Not Given Documented By: LINWOOD Linezolid (Zyvox) 600 mg in 300 mls @ 300 mls/hr IV Q12H [facility] Stop: 03/11/24 22:59 Last Infusion: 03/06/24 13:00 Dose: Infused Documented By: Admin: 03/06/24 11:55 Dose: 300 mls/hr Documented By: Infusion: 03/06/24 00:04 Dose: Infused Documented By: [facility] Admin: 03/05/24 23:04 Dose: 300 mls/hr Documented By: [facility] Infusion: 03/05/24 18:31 Dose: Infused Documented By: Admin: 03/05/24 11:37 Dose: 300 mls/hr Documented By: Infusion: 03/05/24 00:52 Dose: Infused Documented By: Admin: 03/04/24 23:18 Dose: 300 mls/hr Documented By: JENN Piperacillin Sod/Tazobactam Sod (Zosyn) 4.5 gm in 100 mls @ 25 mls/hr IV Q8H [facility]; Protocol Stop: 03/11/24 18:59 Last Infusion: 03/06/24 13:20 Dose: Infused Documented By: Admin: 03/06/24 09:18 Dose: 25 mls/hr Documented By: Infusion: 03/06/24 04:48 Dose: Infused Documented By: Admin: 03/06/24 00:18 Dose: 25 mls/hr Documented By: [facility] Infusion: 03/05/24 20:22 Dose: Infused Documented By: Admin: 03/05/24 16:04 Dose: 25 mls/hr Documented By: LINWOOD Miscellaneous (*Copper Gluconate*Order Awaiting Action) 1 each N/A QS [facility] Stop: 04/04/24 00:00 Last Admin: 03/06/24 09:03 Dose: Not Given Documented By: Admin: 03/05/24 23:11 Dose: Not Given Documented By: [facility] Admin: 03/05/24 15:49 Dose: Not Given Documented By: Admin: 03/05/24 08:13 Dose: Not Given Documented By: Admin: 03/05/24 00:11 Dose: Not Given Documented By: JENN Miscellaneous (*Fluvoxamine Er*Order Awaiting Action) 1 each N/A QS [facility] Stop: 04/04/24 00:00 Last Admin: 03/06/24 09:03 Dose: Not Given Documented By: Admin: 03/05/24 23:11 Dose: Not Given Documented By: [facility] Admin: 03/05/24 15:49 Dose: Not Given Documented By: Admin: 03/05/24 08:14 Dose: Not Given Documented By: Admin: 03/05/24 00:11 Dose: Not Given Documented By: JENN Multivitamins (Multivitamin Tab) 1 tab PO DAILY [facility] Stop: 04/04/24 08:59 Last Admin: 03/06/24 09:06 Dose: 1 tab Documented By: Admin: 03/05/24 08:18 Dose: Not Given Documented By: [facility] Nystatin (Nystatin Powder 15gm Btl) 1 appln EXT BID [facility] Stop: 04/03/24 20:59 Last Admin: 03/06/24 09:08 Dose: 1 appln Documented By: Admin: 03/05/24 21:22 Dose: 1 appln Documented By: [facility] Admin: 03/05/24 08:18 Dose: 1 appln Documented By: Admin: 03/04/24 21:59 Dose: 1 appln Documented By: JENN Polyethylene Glycol (Polyethylene (Miralax) 17 Gm Pack) 17 gm PO TID [facility] Stop: 04/03/24 20:59 Last Admin: 03/06/24 09:07 Dose: Not Given Documented By: Admin: 03/05/24 21:22 Dose: Not Given Documented By: [facility] Admin: 03/05/24 15:05 Dose: Not Given Documented By: Admin: 03/05/24 08:18 Dose: Not Given Documented By: Admin: 03/04/24 22:00 Dose: Not Given Documented By: JOHN Pregabalin (Pregabalin 25 Mg Cap) 25 mg PO BID [facility] Stop: 04/03/24 20:59 Last Admin: 03/06/24 10:07 Dose: 25 mg Documented By: Admin: 03/05/24 21:22 Dose: 25 mg Documented By: [facility] Admin: 03/05/24 08:30 Dose: 25 mg Documented By: Admin: 03/04/24 22:05 Dose: 25 mg Documented By: JENN Vitamin D (Cholecalciferol 125 Mcg (5,000 Units) Tab) 125 mcg PO DAILY [facility] Stop: 04/04/24 08:59 Last Admin: 03/06/24 09:05 Dose: 125 mcg Documented By: Admin: 03/05/24 08:18 Dose: 125 mcg Documented By: LINWOOD Zinc Sulfate (Zinc Sulfate 220 Mg Capsule) 220 mg PO BID [facility] Stop: 04/03/24 20:59 Last Admin: 03/06/24 09:06 Dose: 220 mg Documented By: Admin: 03/05/24 21:18 Dose: Not Given Documented By: [facility] Admin: 03/05/24 08:19 Dose: Not Given Documented By: Admin: 03/04/24 22:00 Dose: Not Given Documented By: JOHN Coding Level of Care Code 32230 IN/OBS CONSULT LVL 4,60M Diagnoses MDD (major depressive disorder), recurrent episode F33.9 Metabolic encephalopathy G93.41 Ambulatory dysfunction R26.2 Anxiety and depression F41.9; F32.9 Claustrophobia F40.240
[2024-03-06] MEDS: SODIUM CHLORIDE 0.9% 1,000 ML IV SCH (14:22)
[2024-03-06] MEDS: SEVELAMER CARBONATE 800 MG TAB PO SCH (17:23)
[2024-03-06] MEDS: DAPTOmycin 500 MG in SYRINGE 0 ML IV SCH (17:25)
[2024-03-06] MEDS: oxyCODONE HCL 10 MG TABCR (OxyCONTIN) PO SCH (20:57)
--- NOTE | 2024-03-06 22:38 | Hospitalist Progress Note ---
Date of Service March 06, 2024 Assessment & Plan (1) Sepsis: Plan: Multiple possible sources including pneumonia (Biofire PCR negative), urine and abdominal/sacral cellulitis (most likely driving cause) Does not meet SIRS criteria but does meet qSOFA (reduced AMS and sBP < 100) Patient on ciprofloxacin and doxycycline Since Continue Zosyn, switch to daptomycin if MRSA nasal swab negative as low likelihood MRSA PNA as cause but she reportedly had MRSA as a surface wound culture, if positive will use linezolid Follow up blood and urine cultures Patient appears stable on antibiotics. However, she does not appear to want to eat anything. Concerned for depression. She is agreeable to a DNR/DNI code status. is at bedside and agrees that she is able to make her decisions. Appears to be improving on 03/06 appreciate input from psych. resumed pain medicine. (2) Metabolic encephalopathy: Plan: Ammonia WNL TSH with AM labs Suspect secondary to hypotension, infection, opiate use / sedating medications appears to have improved. (3) PATY (acute kidney injury): Plan: Urine retention on arrival with undetectable BP - suspect combination of both causing PATY Hold off further IV fluids given normal lactate and lack of dizziness/lightheadedness Repeat BMP in AM (4) Anasarca: Plan: Albumin < 1.5 without significant proteinuria and significant ascites suggestive more of chronic poor nutritional state Likely to need to go back on diuretics if BP able to tolerate - consider using combination of furosemide with albumin to help with diuresis TTE to assess for any worsening cardiomyopathy (5) Acute urinary retention: Plan: On arrival to ER Now with hawkins catheter - consider trial without catheter prior to discharge if more ambulatory (6) Hypocalcemia: Plan: Ionized calcium > 0.8 and hypotension resolved therefore no replacement given. Will repeat ionized calcium with AM labs. (7) Hypomagnesemia: Plan: Mg level 1.6 on arrival. Mg sulfate 1g IV (8) Atrial fibrillation: Plan: Permanent Rate controlled usually on diltiazem XR 180mg PO daily, likely current increased rate due to missing diltiazem but with hypotension on arrival will hold off further rate control currently Use metoprolol 5mg IV PRN for HR > 140 Continue anticoagulation with Eliquis (9) Right leg swelling: Plan: US venous doppler to r/o DVT although suspect poor venous drainage from echhymosis from this side (10) Cirrhosis: Plan: Noted on liver US in November. However no large ascites despite extensive anasaraca elsewhere suggesting most of her third spacing is more nutritional. Plt WNL. Ammonia within normal limits. (11) TRUMAN (obstructive sleep apnea): Plan: Intolerant to CPAP in the past, likely contributing towards right sided heart failure (12) Ambulatory dysfunction: Plan: Per her she has been bed bound for 5 months. (13) Severe protein-calorie malnutrition: Plan: Consult dietary (14) Abdominal wall cellulitis: (15) UTI (urinary tract infection): (16) Pneumonia: Plan VTE prophylaxis - Eliquis Diet - regular, consult dietary Disposition - admit to PCU Admission and Anticipated Discharge Date Admission Date: March 04, 2024 Subjective Patient reports feeling slightly better today. Review of Systems Review of Systems: All systems reviewed & are unremarkable except as noted in HPI & below Physical Exam Constitutional: well developed; + not well nourished and no acute distress Eyes: PERRL, conjunctivae normal, anicteric sclerae Respiratory: normal respiratory effort; no respiratory distress Auscultation: + diminished lung sounds (bibasal) Cardiovascular: Rate/Rhythm: regular rate and + irregularly irregular Heart Sounds: no murmur Extremities: normal capillary refill, + calf tenderness (ri ght) and + pedal edema Gastrointestinal (Abdomen): normal bowel sounds, soft, nontender, no hepatosplenomegaly Neurologic: moves all extremities, awake and + confused Psychiatric: Orientation: alert and oriented x 3 Results & Data Results & Data Vital Signs (Past 12 Hours) Vital Signs Temp Pulse Pulse Resp BP Pulse Ox Pulse Ox 03/06/24 19:25 36.9 C 94 H 10 L 102/58 L 96 03/06/24 17:36 80 118/78 98 03/06/24 17:00 98 03/06/24 15:58 60 03/06/24 13:59 36.3 C L 03/06/24 13:00 81 16 106/54 L 96 03/06/24 10:44 36.3 C L 59 L 17 95/59 L 95 O2 Del Method O2 Del Method O2 Flow Rate O2 Flow Rate 03/06/24 19:25 Nasal Cannula 03/06/24 17:36 Nasal Cannula 2 03/06/24 17:00 Nasal Cannula 2 03/06/24 15:58 03/06/24 13:59 03/06/24 13:00 Nasal Cannula 2 03/06/24 10:44 Nasal Cannula PG Care Time/CCT Total # of Minutes Spent Total Time Spent with Patient: Total time spent is greater than 50% in coordination of care (as documented) at patient's floor/unit and/or counseling patient: Coding Level of Care Code 18400 SUB INP/OBS CARE 2/35MIN Diagnoses Sepsis A41.9 Sepsis acute organ dysfunction status: unspecified Sepsis type: sepsis due to unspecified organism Metabolic encephalopathy G93.41 PATY (acute kidney injury) N17.9 Anasarca R60.1 Acute urinary retention R33.8 Hypocalcemia E83.51 Hypomagnesemia E83.42 Atrial fibrillation I48.91 Atrial fibrillation type: unspecified Right leg swelling M79.89 Cirrhosis K74.60 TRUMAN (obstructive sleep apnea) G47.33 Ambulatory dysfunction R26.2 Severe protein-calorie malnutrition E43 Abdominal wall cellulitis L03.311 UTI (urinary tract infection) N39.0 Pneumonia J18.9 (1) Sepsis Sepsis acute organ dysfunction status: unspecified Sepsis type: sepsis due to unspecified organism Qualified Code(s): A41.9 - Sepsis, unspecified organism (8) Atrial fibrillation Atrial fibrillation type: unspecified Qualified Code(s): I48.91 - Unspecified atrial fibrillation
[2024-03-07 08:30] LABS: Anion Gap 10 (3-11); BUN Creatinine Ratio 27.1 (10-20); Blood Urea Nitrogen 86 mg/dl (6-23); C Reactive Protein 8.05 mg/dl (0-0.5); Calcium 6.5 mg/dl (8.6-10.3); Carbon Dioxide 19 mmol/L (21-32); Chloride 109 mmol/L (98-107); Creatinine Clr Calc Pharmacy 23.1 ml/min; Est GFR (Non-African American) 14.6 ml/min; Glucose 72 mg/dl (70-99(Fasting)); Potassium 3.8 mmol/L (3.5-5.1); Sodium 138 mmol/L (136-145)
[2024-03-07 08:31] LABS: Alanine Aminotransferase 28 U/L (7-52); Albumin Level < 1.5 gm/dl (3.4-5.0); Alkaline Phosphatase 234 U/L (34-104); Aspartate Aminotransferase 53 U/L (13-39); Bilirubin,Total 0.4 mg/dl (0.2-1.0); Magnesium 1.8 mg/dl (1.7-2.4); Phosphorus 6.3 mg/dl (2.5-4.9)
[2024-03-07] MEDS: fluvoxaMINE MALEATE 50 MG TAB PO SCH (09:30)
[2024-03-07] MEDS: oxyCODONE HCL IR 5 MG TAB (IMMEDIATE RELEASE) PO PRN (15:50)
--- NOTE | 2024-03-07 22:26 | Hospitalist Progress Note ---
Date of Service March 07, 2024 Assessment & Plan (1) Sepsis: Plan: Multiple possible sources including pneumonia (Biofire PCR negative), urine and abdominal/sacral cellulitis (most likely driving cause) Does not meet SIRS criteria but does meet qSOFA (reduced AMS and sBP < 100) Patient on ciprofloxacin and doxycycline Since Continue Zosyn, switch to daptomycin if MRSA nasal swab negative as low likelihood MRSA PNA as cause but she reportedly had MRSA as a surface wound culture, if positive will use linezolid Follow up blood and urine cultures Patient appears stable on antibiotics. However, she does not appear to want to eat anything. Concerned for depression. She is agreeable to a DNR/DNI code status. is at bedside and agrees that she is able to make her decisions. Appears to be improving on 03/06 appreciate input from psych. resumed pain medicine. Continue antidepressants. (2) Metabolic encephalopathy: Plan: Ammonia WNL TSH with AM labs Suspect secondary to hypotension, infection, opiate use / sedating medications appears to have improved. (3) PATY (acute kidney injury): Plan: Urine retention on arrival with undetectable BP - suspect combination of both causing PATY Hold off further IV fluids given normal lactate and lack of dizziness/lightheadedness creatinine is slightly better. (4) Anasarca: Plan: Albumin < 1.5 without significant proteinuria and significant ascites suggestive more of chronic poor nutritional state Likely to need to go back on diuretics if BP able to tolerate - consider using combination of furosemide with albumin to help with diuresis TTE to assess for any worsening cardiomyopathy (5) Acute urinary retention: Plan: On arrival to ER Now with hawkins catheter - consider trial without catheter prior to discharge if more ambulatory (6) Hypocalcemia: Plan: Ionized calcium > 0.8 and hypotension resolved therefore no replacement given. Will repeat ionized calcium with AM labs. (7) Hypomagnesemia: Plan: Mg level 1.6 on arrival. Mg sulfate 1g IV (8) Atrial fibrillation: Plan: Permanent Rate controlled usually on diltiazem XR 180mg PO daily, likely current increased rate due to missing diltiazem but with hypotension on arrival will hold off further rate control currently Use metoprolol 5mg IV PRN for HR > 140 Continue anticoagulation with Eliquis (9) Right leg swelling: Plan: US venous doppler to r/o DVT although suspect poor venous drainage from echhymosis from this side (10) Cirrhosis: Plan: Noted on liver US in November. However no large ascites despite extensive anasaraca elsewhere suggesting most of her third spacing is more nutritional. Plt WNL. Ammonia within normal limits. (11) TRUMAN (obstructive sleep apnea): Plan: Intolerant to CPAP in the past, likely contributing towards right sided heart failure (12) Ambulatory dysfunction: Plan: Per her she has been bed bound for 5 months. (13) Severe protein-calorie malnutrition: Plan: Consult dietary (14) Abdominal wall cellulitis: (15) UTI (urinary tract infection): (16) Pneumonia: Plan VTE prophylaxis - Eliquis Diet - regular, consult dietary Disposition - admit to PCU Admission and Anticipated Discharge Date Admission Date: March 04, 2024 Subjective Patient reports she continues to be in pain. Review of Systems Review of Systems: All systems reviewed & are unremarkable except as noted in HPI & below Physical Exam Constitutional: well developed; + not well nourished and no acute distress Eyes: PERRL, conjunctivae normal, anicteric sclerae Respiratory: normal respiratory effort; no respiratory distress Auscultation: + diminished lung sounds (bibasal) Cardiovascular: Rate/Rhythm: regular rate and + irregularly irregular Heart Sounds: no murmur Extremities: normal capillary refill, + calf tenderness (right) and + pedal edema Gastrointestinal (Abdomen): normal bowel sounds, soft, nontender, no hepatosplenomegaly Neurologic: moves all extremities, awake and + confused Psychiatric: Orientation: alert and oriented x 3 Results & Data Results & Data Vital Signs (Past 12 Hours) Vital Signs Temp Pulse Pulse Resp BP Pulse Ox Pulse Ox 03/07/24 19:40 36.6 C 86 10 L 82/60 L 97 03/07/24 19:00 03/07/24 17:00 97 03/07/24 16:00 86 03/07/24 15:00 36.2 C L 89 15 117/60 97 03/07/24 10:42 36.3 C L 79 16 103/79 92 O2 Del Method O2 Del Method O2 Flow Rate O2 Flow Rate 03/07/24 19:40 Nasal Cannula 03/07/24 19:00 Nasal Cannula 3 03/07/24 17:00 Nasal Cannula 2 03/07/24 16:00 03/07/24 15:00 Nasal Cannula 03/07/24 10:42 Nasal Cannula PG Care Time/CCT Total # of Minutes Spent Total Time Spent with Patient: Total time spent is greater than 50% in coordination of care (as documented) at patient's floor/unit and/or counseling patient: Coding Level of Care Code 01338 SUB INP/OBS CARE 2/35MIN Diagnoses Sepsis A41.9 Sepsis acute organ dysfunction status: unspecified Sepsis type: sepsis due to unspecified organism Metabolic encephalopathy G93.41 PATY (acute kidney injury) N17.9 Anasarca R60.1 Acute urinary retention R33.8 Hypocalcemia E83.51 Hypomagnesemia E83.42 Atrial fibrillation I48.91 Atrial fibrillation type: unspecified Right leg swelling M79.89 Cirrhosis K74.60 TRUMAN (obstructive sleep apnea) G47.33 Ambulatory dysfunction R26.2 Severe protein-calorie malnutrition E43 Abdominal wall cellulitis L03.311 UTI (urinary tract infection) N39.0 Pneumonia J18.9 (1) Sepsis Sepsis acute organ dysfunction status: unspecified Sepsis type: sepsis due to unspecified organism Qualified Code(s): A41.9 - Sepsis, unspecified organism (8) Atrial fibrillation Atrial fibrillation type: unspecified Qualified Code(s): I48.91 - Unspecified atrial fibrillation
[2024-03-08 08:01] LABS: Hemoglobin 9.1 g/dl (12.0-16.0); Mean Corpuscular Hemoglobin 25.5 pg (25.0-34.0); Mean Corpuscular Hgb Conc 31.4 g/dL (32.0-36.0); Mean Corpuscular Volume 81.2 fL (80.0-100.0); Mean Platelet Volume 12.8 fL (9.4-12.4); Platelet Count 91 K/uL (130-400); RDW Standard Deviation 50.1 fL (36.4-46.3); Red Blood Count 3.57 M/uL (4.20-5.40); White Blood Count 10.71 K/ul (4.8-10.8)
[2024-03-08 08:18] LABS: Anion Gap 9 (3-11); BUN Creatinine Ratio 26.4 (10-20); Blood Urea Nitrogen 86 mg/dl (6-23); Calcium 6.8 mg/dl (8.6-10.3); Carbon Dioxide 20 mmol/L (21-32); Chloride 108 mmol/L (98-107); Creatinine Clr Calc Pharmacy 22.5 ml/min; Est GFR (African American) 16.4 ml/min; Est GFR (Non-African American) 14.2 ml/min; Glucose 64 mg/dl (70-99(Fasting)); Potassium 3.9 mmol/L (3.5-5.1); Sodium 137 mmol/L (136-145)
[2024-03-08 08:32] LABS: Alanine Aminotransferase 27 U/L (7-52); Albumin Level < 1.5 gm/dl (3.4-5.0); Alkaline Phosphatase 212 U/L (34-104); Aspartate Aminotransferase 42 U/L (13-39); Bilirubin,Total 0.5 mg/dl (0.2-1.0); Magnesium 1.8 mg/dl (1.7-2.4); Phosphorus 6.7 mg/dl (2.5-4.9); Total Protein 4.1 gm/dl (6.0-8.3)
[2024-03-08] MEDS ORDERED: Heparin IV Adult Wt-Based Low-Dose *NO* INITIAL Bolus Protocol IV STA (21:12)
--- NOTE | 2024-03-08 21:13 | Communication Note ---
Date of Service: March 08, 2024 Pt is NPO, unable to swallow pills. On Eliquis 5mg BID for afib. Last taken 0830 this morning. Will transition to heparin gtt.
[2024-03-08] MEDS: HEPARIN SODIUM/DEXTROSE 25,000 UNITS/500 ML BAG IV SCH (22:32)
--- NOTE | 2024-03-08 22:40 | Hospitalist Progress Note ---
Date of Service March 08, 2024 Assessment & Plan (1) Sepsis: Plan: Multiple possible sources including pneumonia (Biofire PCR negative), urine and abdominal/sacral cellulitis (most likely driving cause) Does not meet SIRS criteria but does meet qSOFA (reduced AMS and sBP < 100) Patient on ciprofloxacin and doxycycline Since Continue Zosyn, switch to daptomycin if MRSA nasal swab negative as low likelihood MRSA PNA as cause but she reportedly had MRSA as a surface wound culture, if positive will use linezolid Follow up blood and urine cultures Patient appears stable on antibiotics. However, she does not appear to want to eat anything. Concerned for depression: as patient has essentially given up in getting stronger or in eating. Added antidepressant on 03/06 She is agreeable to a DNR/DNI code status. is at bedside and agrees that she is able to make her decisions. On 03/08 patient more confused. holding PO meds due to aspiration risk. Family considering transitioning to comfort. will monitor overnight. If patient continues to decline may consider transitioning to [employer] vs aggressive management/debridement and surgery consult. (2) Metabolic encephalopathy: Plan: Ammonia WNL TSH with AM labs Suspect secondary to hypotension, infection, opiate use / sedating medications appears to have improved. (3) PATY (acute kidney injury): Plan: Urine retention on arrival with undetectable BP - suspect combination of both causing PATY Hold off further IV fluids given normal lactate and lack of dizziness/lig htheadedness creatinine is slightly better. (4) Anasarca: Plan: Albumin < 1.5 without significant proteinuria and significant ascites suggestive more of chronic poor nutritional state Likely to need to go back on diuretics if BP able to tolerate - consider using combination of furosemide with albumin to help with diuresis TTE to assess for any worsening cardiomyopathy (5) Acute urinary retention: Plan: On arrival to ER Now with hawkins catheter - consider trial without catheter prior to discharge if more ambulatory (6) Hypocalcemia: Plan: Ionized calcium > 0.8 and hypotension resolved therefore no replacement given. Will repeat ionized calcium with AM labs. (7) Hypomagnesemia: Plan: Mg level 1.6 on arrival. Mg sulfate 1g IV (8) Atrial fibrillation: Plan: Permanent Rate controlled usually on diltiazem XR 180mg PO daily, likely current increased rate due to missing diltiazem but with hypotension on arrival will hold off further rate control currently Use metoprolol 5mg IV PRN for HR > 140 Continue anticoagulation with Eliquis (9) Right leg swelling: Plan: US venous doppler to r/o DVT although suspect poor venous drainage from echhymosis from this side (10) Cirrhosis: Plan: Noted on liver US in November. However no large ascites despite extensive anasaraca elsewhere suggesting most of her third spacing is more nutritional. Plt WNL. Ammonia within normal limits. (11) TRUMAN (obstructive sleep apnea): Plan: Intolerant to CPAP in the past, likely contributing towards right sided heart failure (12) Ambulatory dysfunction: Plan: Per her she has been bed bound for 5 months. (13) Severe protein-calorie malnutrition: Plan: Consult dietary (14) Abdominal wall cellulitis: (15) UTI (urinary tract infection): (16) Pneumonia: Plan VTE prophylaxis - Eliquis Diet - regular, consult dietary Disposition - admit to PCU Admission and Anticipated Discharge Date Admission Date: March 04, 2024 Subjective Patient is more confused. is discussing perhpas transitioning to comfort. Review of Systems Review of Systems: Unobtainable due to cognitive status Physical Exam Constitutional: well developed; + not well nourished and no acute distress Eyes: PERRL, conjunctivae normal, anicteric sclerae Respiratory: normal respiratory effort; no respiratory distress Auscultation: + diminished lung sounds (bibasal) Cardiovascular: Rate/Rhythm: regular rate and + irregularly irregular Heart Sounds: no murmur Extremities: normal capillary refill, + calf tenderness (right) and + pedal edema Gastrointestinal (Abdomen): normal bowel sounds, soft, nontender, no hepatosplenomegaly Skin: severe skin lesions on skin fold on abdomen and groin. Patient has multiple deep decubitus ulcers. Neurologic: moves all extremities, awake and + confused Psychiatric: Orientation: alert Results & Data Results & Data Vital Signs (Past 12 Hours) Vital Signs Temp Pulse Pulse Resp BP Pulse Ox Pulse Ox 03/08/24 19:35 36.3 C L 90 10 L 75/65 L 100 03/08/24 17:00 94 03/08/24 16:00 36.6 C 78 16 100/54 L 99 03/08/24 14:02 77 O2 Del Method O2 Del Method O2 Flow Rate 03/08/24 19:35 Nasal Cannula 03/08/24 17:00 Nasal Cannula 3 03/08/24 16:00 Nasal Cannula 03/08/24 14:02 PG Care Time/CCT Total # of Minutes Spent Total Time Spent with Patient: Total time spent is greater than 50% in coordination of care (as documented) at patient's floor/unit and/or counseling patient: Coding Level of Care Code 86758 SUB INP/OBS CARE 3/50MIN Diagnoses Sepsis A41.9 Sepsis acute organ dysfunction status: unspecified Sepsis type: sepsis due to unspecified organism Metabolic encephalopathy G93.41 PATY (acute kidney injury) N17.9 Anasarca R60.1 Acute urinary retention R33.8 Hypocalcemia E83.51 Hypomagnesemia E83.42 Atrial fibrillation I48.91 Atrial fibrillation type: unspecified Right leg swelling M79.89 Cirrhosis K74.60 TRUMAN (obstructive sleep apnea) G47.33 Ambulatory dysfunction R26.2 Severe protein-calorie malnutrition E43 Abdominal wall cellulitis L03.311 UTI (urinary tract infection) N39.0 Pneumonia J18.9 (1) Sepsis Sepsis acute organ dysfunction status: unspecified Sepsis type: sepsis due to unspecified organism Qualified Code(s): A41.9 - Sepsis, unspecified organism (8) Atrial fibrillation Atrial fibrillation type: unspecified Qualified Code(s): I48.91 - Unspecified atrial fibrillation
[2024-03-08 23:08] LABS: Basophils # (auto) 0.01 K/uL (0.00-0.20); Basophils % (auto) 0.1 %; Eosinophils # (auto) 0.03 K/uL (0.00-0.50); Eosinophils % (auto) 0.3 %; Hematocrit (blood only) 28.3 % (37.0-47.0); Hemoglobin 8.9 g/dl (12.0-16.0); Immature Granulocytes # (auto) 0.05 K/uL (0.01-0.20); Immature Granulocytes % (auto) 0.5 %; Lymphocytes # (auto) 1.21 K/uL (1.20-3.40); Lymphocytes % (auto) 10.9 %; Mean Corpuscular Hemoglobin 25.7 pg (25.0-34.0); Mean Corpuscular Hgb Conc 31.4 g/dL (32.0-36.0); Mean Corpuscular Volume 81.8 fL (80.0-100.0); Mean Platelet Volume 12.6 fL (9.4-12.4); Monocytes # (auto) 0.28 K/uL (0.11-0.59); Monocytes % (auto) 2.5 %; Neutrophils # (auto) 9.49 K/uL (1.40-6.50); Neutrophils % (auto) 85.7 %; Platelet Count 86 K/uL (130-400); RDW Coefficient of Variation 17.3 % (11.5-14.5); RDW Standard Deviation 50.9 fL (36.4-46.3); Red Blood Count 3.46 M/uL (4.20-5.40); White Blood Count 11.07 K/ul (4.8-10.8)
[2024-03-08 23:35] LABS: INR 1.4 (0.9-1.1); Partial Thromboplastin Ratio 1.9; Partial Thromboplastin Time 51 Seconds (21-31)
[2024-03-09 03:55] VITALS: TEMP 97.3
[2024-03-09 05:20] LABS: Hematocrit (blood only) 27.4 % (37.0-47.0); Hemoglobin 8.7 g/dl (12.0-16.0); Mean Corpuscular Hemoglobin 25.7 pg (25.0-34.0); Mean Corpuscular Hgb Conc 31.8 g/dL (32.0-36.0); Mean Corpuscular Volume 81.1 fL (80.0-100.0); Mean Platelet Volume 12.1 fL (9.4-12.4); Platelet Count 80 K/uL (130-400); RDW Coefficient of Variation 17.2 % (11.5-14.5); RDW Standard Deviation 50.5 fL (36.4-46.3); Red Blood Count 3.38 M/uL (4.20-5.40)
[2024-03-09 05:34] LABS: C Reactive Protein 6.79 mg/dl (0-0.5); Calcium 6.6 mg/dl (8.6-10.3); Creatinine Clr Calc Pharmacy 21.1 ml/min; Est GFR (African American) 15.2 ml/min; Est GFR (Non-African American) 13.1 ml/min; Potassium 3.9 mmol/L (3.5-5.1)
--- NOTE | 2024-03-09 05:57 | Communication Note ---
Date of Service: March 09, 2024 Notified of difficultly getting blood pressures secondary to severe swelling that has progressively been getting worse. Saw pt at bedside and she was awake and able to answer questions- ultimately was able to get a blood pressure- 86/55. She is already on Zosyn/dapto for PNA and probably wound infection. Morning labs are pending. Last albumin was less than 1.5-> plan to give 50g IV q4h x 4 for total of 200g. Ultimately may need to have further goals of care discussion with family regarding if unresponsive to albumin whether or not she would want escalation to vasopressor support.
[2024-03-09] MEDS: ALBUMIN 25% 25 GM/100 ML VIAL IV SCH (06:15)
[2024-03-09 06:32] LABS: ANTI-Xa, UFH(UnfractionatedHep > 1.50 IU/ml (0.3-0.7)
[2024-03-09] MEDS ORDERED: VANCOMYCIN CONSULT ACTIVE PRN (08:52)
[2024-03-09] MEDS ORDERED: VANCOMYCIN HCL 1,000 MG in SODIUM CHLORIDE 0.9% 250 ML IV SCH (09:00)
[2024-03-09 09:31] LABS: ANTI-Xa, UFH(UnfractionatedHep > 1.50 IU/ml (0.3-0.7)
--- NOTE | 2024-03-09 10:57 | Palliative Care Consultation ---
Date of Consultation March 09, 2024 Assessment & Plan (1) Generalized pain: Low-dose Dilaudid infusion at 0.2 mg/h has been initiated as part of a focus comfort care protocol. Dilaudid 0.3 mg can be bolus from the bag as needed every 30 minutes for breakthrough pain or dyspnea. (2) Abdominal pain, generalized: See #1 above (3) Weakness generalized: (4) Advanced care planning/counseling discussion: A [id number] advance care planning discussion was held with the patient at bedside for 35 minutes. Additionally, another 45min [id number] advance care planning discussion was held with patient's at bedside along with her sister, Janet, (who was present telephonically from [facility]); total ACP time 35 + 45 = 80 min Throughout my discussion, during the more lucid moments, patient stated "I can't take this anymore" and "this has to stop, just let me go." Her states she has been saying this for some time, and expressed it more regularly through the course of this admission. He states that for the last 6 months, she has been asking him to let her go. Patient's sister, Janet, states the patient has been steadily declining in spite of escalating measures. Janet runs a personal prison and is aware on some level of how clinical decline may be indicative of a progressive transition to an end-of-life process. Janet states that before patient became this ill, following her bariatric surgery many years ago, she begged her sister to not give up on her. Janet states that at various points during her life due to significant medical issues, patient used to live with her through periods of recovery. Janet states that both she and patient's recognize that she has not been improving despite multiple escalated measures. The wounds have been progressively worsening in spite of t reatment. She has not improved in spite of interventions including albumin and antibiotics. We discussed that the multiorgan failure involving with the complications of sepsis are likely indicating to us that she is transitioning from a process of living to a process of dying. and sister states that they are in agreement with this and have been notified family and a group text message. Additionally family members have begun to travel to visit with patient and to say their final goodbyes. We discussed transitioning to a comfort plan of care in accordance with patient's expressed wishes and family is in agreement. Jante states that they discussed this as a family over the last several days and all are in agreement that it is time to keep patient comfortable. We discussed the amount of generalized pain and distress that she is experiencing from her wounds and her infection. We agreed to start a low-dose Dilaudid infusion at 0.2 mg/h with Dilaudid 0.3 mg every 30 minutes as needed bolus from the bag. She is not able to take her oral medications but has been chronically on OxyContin and Oxy IR prior to this admission. We will de intensify her medical care, stop monitor ing, stop labs and other invasive measures, and transition her to a comfort focused plan of care. We will move her to a private room and I reviewed with the family that overall, visitation policies are more relaxed for end-of-life care patients and they will be able to stay with her and also be able to take turns staying overnight with her because they are very concerned about leaving her alone at the end of life. At their request, we discussed changes that patient's may go through in the end of life or dying process:Discussed changes pt may move through in the dying process including but not limited to sleeping more, disorientation when awake, restlessness, diminished senses/inability to respond to stimulus although ability to be aware of them remains intact longer, changes in body temperatures, skin changes/mottling/cyanosis, respiratory pattern changes, oral secretions. Family verbalized understanding. The goal is to assure a peaceful . had expressed that they had hoped to be able to bring her home with hospice and we reviewed that at this junction I do not believe she will survive this admission and that the overall complexity of her needs likely exceed what can be done at home without extensive caregiver support [id number]. They are in agreement. We agreed to see how she does on comfort care over the next few days although I did advise them that I am very worried given her overall progressive sepsis and organ failure that she is likely to in the next few days. They expressed understanding. All questions were answered to their apparent satisfaction. (5) Palliative care by specialist: Introduced Palliative Medicine and explained our role in patient's care. Patient and/or family were receptive to palliative services for goals of care discussions. Reviewed we are different from hospice, a home health nurse visiting service. Plan [employer]IED HEALTH TEACHER, orders written ACP as above U[dayted teams. Thank you for allowing us to participate in the ongoing care of this patient. Please page with any additional concerns. Taylor Ramirez DNP Director, Palliative Medicine History of Present Illness Reason for Consultation: [facility] Attending Physician: Sonya De MD History of Present Illness Jerri Arellano is a 63yo female admitted for sepsis d/t multiple possible sources including pneumonia (Biofire PCR negative), urine and abdominal/sacral cellulitis (most likely driving cause) Does not meet SIRS criteria but does meet qSOFA (reduced AMS and sBP < 100) Patient on ciprofloxacin and doxycycline 02/28/24 She has not been taking PO +Metab encephalopathy, PATY, anasarca, acute urinary retention, hypocalcemia, hypomagnesemia, A fib, cirrhosis, TRUMAN/intol to CPAP, +Ambulatory dysfunction/has been bed bound for 5 months, +Severe protein-calorie malnutrition: Overall not improving Has been in and out of alertness, periods of lucidity wax and wane Seen at bedside, no family present Tells me it hurts everywhere windy her backside not hungry denies nausea feeling very tired and fatigued Allergies Allergy/AdvReac Type Severity Reaction Status Date / Time Iodinated Contrast Media Allergy Unknown Unknown Verified 12/17/23 07:28 [Iodinated Contrast- Oral and IV Dye] promethazine AdvReac Intermediate BROKEN Verified 12/17/23 07:28 CAPILLARIES FACE Home Medications Medication Instructions Recorded Confirmed Type lancets (OneTouch UltraSoft #400 ea 04/12/21 12/17/23 Rx Lancets) cyanocobalamin (vitamin B-12) 2,500 mcg PO 2XWK 10/08/22 03/04/24 History 2,500 mcg tablet blood sugar diagnostic #300 ea 12/10/22 12/17/23 Rx levothyroxine 50 mcg tablet 50 mcg PO DAILYBB #90 tabs 01/23/23 03/04/24 Rx insulin syringe-needle U-100 0.5 #400 ea 02/05/23 12/17/23 Rx mL 31 gauge x 5/16" (Easy Comfort Insulin Syringe) folic acid 1 mg tablet 1 mg PO QAM #90 tabs 02/22/23 03/04/24 Rx epoetin fernando-epbx 40,000 unit/mL 40,000 unit subcut UD 28 days #28 07/01/23 03/04/24 Rx injection solution (Retacrit) mL bumetanide 2 mg tablet 2 mg PO QAM 07/24/23 03/04/24 History metoprolol succinate 25 mg 25 mg PO DAILY #90 tabs 07/26/23 03/04/24 Rx tablet,extended release 24 hr apixaban 5 mg tablet (Eliquis) 5 mg PO BID #60 tabs 08/30/23 03/04/24 Rx acetaminophen 325 mg capsule 650 mg PO QID PRN Fever Or Pain 09/23/23 03/04/24 History (Tylenol) cholecalciferol (vitamin D3) 125 125 mcg PO DAILY 09/23/23 03/04/24 History mcg (5,000 unit) capsule diltiazem HCl 180 mg capsule,24 180 mg PO QAM 09/23/23 03/04/24 History hr,extended release loperamide 2 mg capsule 2 mg PO TID PRN Diarrhea 09/23/23 03/04/24 History (Anti-Diarrheal (loperamide)) ondansetron HCl 4 mg tablet 4 mg PO Q6H PRN nausea and vomiting 09/23/23 03/04/24 History calcium carbonate (Calcium 600) 600 mg PO BID 11/16/23 03/04/24 History lorazepam 0.5 mg tablet (Ativan) 0.5 mg PO BID PRN Anxiety 11/16/23 03/04/24 History copper gluconate 2 mg tablet 2 mg PO DAILY #1 tab 11/28/23 03/04/24 Rx selenium 100 mcg tablet 100 mcg PO DAILY #1 tab 11/29/23 03/04/24 Rx thiamine HCl (vitamin B1) 100 mg 100 mg PO QAM #0 tabs 11/29/23 03/04/24 Rx tablet amino acids-protein hydrolysate 15 See Rx Instructions .Route .COMPLEX 03/04/24 03/04/24 History gram-100 kcal/30 mL oral liquid pkt (Pro-Stat Sugar Free) atorvastatin 80 mg tablet 0 mg PO HS 03/04/24 03/04/24 History bisacodyl 10 mg rectal suppository 10 mg [place] DAILY PRN Constipation 03/04/24 03/04/24 History bisacodyl 5 mg tablet,delayed 5 mg PO DAILY PRN Constipation 03/04/24 03/04/24 History release buspirone 5 mg tablet 5 mg PO BID 03/04/24 03/04/24 History calcium carbonate 500 mg PO Q6H PRN Indigestion 03/04/24 03/04/24 History carboxymethylcellulose sodium 1 % 1 drp OPB TID 03/04/24 03/04/24 History eye gel in a dropperette (Refresh Celluvisc) ciprofloxacin HCl 500 mg tablet 500 mg PO UD 03/04/24 03/04/24 History clotrimazole 1 % topical cream See Rx Instructions .Route .COMPLEX 03/04/24 03/04/24 History diclofenac sodium 1 % topical gel 4 g topical TID Left Hip 03/04/24 03/04/24 History doxycycline hyclate 100 mg tablet 100 mg PO BID 03/04/24 03/04/24 History ferrous sulfate 325 mg (65 mg 325 mg PO Q OTHER DAY 03/04/24 03/04/24 History iron) tablet,delayed release fluvoxamine 150 mg 150 mg PO HS 03/04/24 03/04/24 History capsule,extended release 24 hr honey 80 % topical gel (MediHoney See Rx Instructions .Route .COMPLEX 03/04/24 03/04/24 History (honey)) miconazole nitrate 2 % topical 1 applic topical BID Rash between 03/04/24 03/04/24 History powder (Remedy Antifungal) breast multivitamin with folic acid 400 1 tab PO DAILY 03/04/24 03/04/24 History mcg tablet (High Potency Multivitamin) multivitamin-ferrous 1 tab PO QAM 03/04/24 03/04/24 History fumarate-folic acid 18 mg-400 mcg tablet (Certavite-Antioxidant) oxycodone 10 mg tablet,crush 0 mg PO Q12H Chronic Pain Syndrome 03/04/24 03/04/24 History resistant,extended release 12 hr (OxyContin) oxycodone 10 mg tablet,crush 10 mg PO QAM Chronic Pain 03/04/24 03/04/24 History resistant,extended release 12 hr (OxyContin) oxycodone 5 mg tablet 0 mg PO Q6H PRN Moderate to severe 03/04/24 03/04/24 History pain polymyxin B sulfate 10,000 1 drp OPB DAILY 03/04/24 03/04/24 History unit-trimethoprim 1 mg/mL eye drops povidone-iodine 10 % topical swab See Rx Instructions .Route .COMPLEX 03/04/24 03/04/24 History pregabalin 25 mg capsule 25 mg PO BID 03/04/24 03/04/24 History sodium hypochlorite 0.25 % 1 applic topical UD 03/04/24 03/04/24 History solution (Dakin's Solution) trazodone 50 mg tablet 0 mg PO HS 03/04/24 03/04/24 History zinc sulfate 220 mg capsule 220 mg PO BID 03/04/24 03/04/24 History Patient History Medical History (Updated 03/09/24 @ 15:54 by Lyndsey Ramirez, SANDIP) Type 2 diabetes mellitus History of femur fracture (04/08/23) Displaced fracture of neck of left femur, from a fall-saw orthopedics and had surgery Left hip postoperative wound infection History of partial replacement of left hip joint using bipolar prosthesis (04/09/23) Retention of urine, unspecified Obsessive compulsive disorder History of COVID-2019--mild symptoms, no symptoms now On home oxygen therapy 2L n/c prn sob Fluid retention Right sided sciatica AV fistula September 07, 2020 > right wrist > not on dialysis at present Atrial fibrillation and flutter Generalized weakness Syncope PAF (paroxysmal atrial fibrillation) Atrial fibrillation, new onset dx August 2020> cardioversions x2. on eliquis > follows Dr. Fontaine Cardiac murmur Mild TR noted on 2019 echo. Obesity hypoventilation syndrome Morbid obesity BMI 40.1 Diastolic congestive heart failure Euvolemic on exam at [facility] 09/02/20. follows with Dr. Fontaine Chronic rhinitis Hypertension Diabetes IDDM Surgical History Status post gastric bypass for obesity 09/14/2020- Dr. Ash- [facility] History of incision and drainage (05/06/23) Incision and Drainage, Debridement Sacral Wound - Yasmany Langley DO History of bilateral cataract extraction History of cardioversion x2 History of arthroscopy x2 left shoulder History of total shoulder replacement LEFT 07/19 2015 fracture History of esophagogastroduodenoscopy (EGD) History of colonoscopy History of dermoid cyst excision S/P tooth extraction History of mandibular surgery FULL ROM H/O section x1 Hx of cholecystectomy Family History Daughter Multiple allergies Bipolar disorder Aunt Breast cancer Mother Diabetes Heart disease Hyperthyroidism Hypertension Father Gastric cancer Hearing loss Myocardial infarction Grandfather Heart disease Family/Other Osteoporosis Lung cancer Hypertension Stroke Brother Hypertension Grandmother Ovarian cancer Sister Diabetes Migraine Other No family history of adverse response to anesthesia Denies family history of Prostate cancer Colorectal cancer Uterine cancer Social History Smoking Status: Never smoker Second Hand Exposure: No; Do You Dip or Chew Tobacco: No; Hx Alcohol Use: No Hx Substance Use: No Preferred Language: Kiswahili Communication Ability: Impaired Visual Impairment: No Limitations Hearing Aid Dispenser Required: No Beliefs That Will Affect Care: None marital status: Current Living Situation: Long Term Current Living Situation Comment: [facility] current occupational status: employed and unemployed Feels Safe at Home: Yes Safety Concerns: Feels Safe At This Time Childhood Exposure to Second-Hand Smoke: Yes Dental Care, Regularly: Yes Physical Activity Frequency: Does not Exercise Seatbelt Use: always Sunscreen Use: Yes Assistive Devices: Wheelchair Review of Systems Review of Systems: All systems reviewed & are unremarkable except as noted in Subjective Physical Exam Physical Exam: Frail appearing, chronically critically ill Supine in bed Bitemp wasting Pupils sluggishly reactive Neck supple, no stridor MM dry, dentition fair, ?mild thrush on tongue Breath sounds diminished, scatt crackles and rhonchi, no overt wheezing. this is a limited anterior exam irreg irreg, mild JVD Abd soft, tender to palpation, BS diminished; skin lesions in the abd folds thru groin Gen weakness, unable to follow commands Alert to self, opens eyes when name is called and can answer 1-2 simple questions then drifts off skin pale, warm, scatt ecchymoses, dry; +multiple decubitus ulcers, varying and severe Results & Data Vital Signs (Past 12 Hours) Vital Signs Temp Pulse Pulse Resp BP Pulse Ox O2 Del Method 03/09/24 08:47 88 18 92/52 L 100 Nasal Cannula 03/09/24 05:23 86/55 L 03/09/24 02:45 36.3 C L 83 12 84/52 L 100 Nasal Cannula 03/09/24 01:00 83 03/08/24 22:55 36.4 C L 87 8 L 95/62 L 99 Nasal Cannula O2 Flow Rate 03/09/24 08:47 4 03/09/24 05:23 03/09/24 02:45 03/09/24 01:00 03/08/24 22:55 Laboratory Results 03/09/24 03/09/24 03/09/24 Range/Units 10:19 08:53 04:56 WBC 11.40 H (4.8-10.8) K/ul RBC 3.38 L (4.20-5.40) M/uL Hgb 8.7 L (12.0-16.0) g/dl POC Hgb (12.0-16.0) g/dl Hct 27.4 L (37.0-47.0) % POC Hct (37-47) % MCV 81.1 (80.0-100.0) fL MCH 25.7 (25.0-34.0) pg MCHC 31.8 L (32.0-36.0) g/dL RDW Std Deviation 50.5 H (36.4-46.3) fL RDW Coeff of Chantal 17.2 H (11.5-14.5) % Plt Count 80 L (130-400) K/uL MPV 12.1 (9.4-12.4) fL Immature Gran % (Auto) % Neut % (Auto) % Lymph % (Auto) % Rains % (Auto) % Eos % (Auto) % Baso % (Auto) % Neut # (Auto) (1.40-6.50) K/uL Lymph # (Auto) (1.20-3.40) K/uL Rains # (Auto) (0.11-0.59) K/uL Eos # (Auto) (0.00-0.50) K/uL Baso # (Auto) (0.00-0.20) K/uL Immature Gran # (Auto) (0.01-0.20) K/uL Absolute Nucleated RBC Nucleated RBC % (auto) Platelet Estimate ESR (0-30) mm/hr PT (9.0-12.0) Seconds INR (0.9-1.1) APTT (21-31) Seconds PTT Ratio Heparin Anti-Xa, Unfract Pending > 1.50 H* > 1.50 H* (0.3-0.7) IU/ml VBG pH (7.36-7.41) VBG pCO2 (38-50) mmHg VBG pO2 mmHg VBG HCO3 mmol/L VBG O2 Saturation % VBG Base Excess mEq/L POC Sodium (135-144) mmol/L Sodium 136 (136-145) mmol/L POC Potassium (3.3-5.0) mmol/L Potassium 3.9 (3.5-5.1) mmol/L POC Chloride (101-112) mmol/L Chloride 108 H (98-107) mmol/L Carbon Dioxide 19 L (21-32) mmol/L POC Total CO2 (24-31) mmol/L Anion Gap 9 (3-11) POC Anion Gap (16-25) mmol/L POC BUN (7-18) mg/dl BUN 87 H (6-23) mg/dl Creatinine 3.48 H (0.6-1.2) mg/dl POC Creatinine (0.6-1.3) mg/dl Est Cr Clr Drug Dosing 21.1 ml/min Est GFR ( Amer) 15.2 ml/min Est GFR (Non-Af Amer) 13.1 ml/min BUN/Creatinine Ratio 25.0 H (10-20) Glucose 73 (70-99(Fasting)) mg/dl POC Glucose (other) (70-99) mg/dl Lactate (0.4-2.0) mmol/L Calcium 6.6 L (8.6-10.3) mg/dl POC Ioniz Calcium Kat (1.12-1.32) mmol/l Ionized Calcium (1.12-1.32) mmol/L Phosphorus (2.5-4.9) mg/dl Magnesium (1.7-2.4) mg/dl Total Bilirubin (0.2-1.0) mg/dl Direct Bilirubin (0-0.2) mg/dl AST (13-39) U/L ALT (7-52) U/L Alkaline Phosphatase (34-104) U/L Ammonia (18-72) umol/L Troponin I High Sens (0-14) pg/ml C-Reactive Protein 6.79 H (0-0.5) mg/dl B-Natriuretic Peptide (0-100) pg/ml Total Protein (6.0-8.3) gm/dl Albumin (3.4-5.0) gm/dl Globulin Albumin/Globulin Ratio Prealbumin (20-40) mg/dl Procalcitonin (0-0.5) ng/ml TSH (0.300-4.500) uIu/ml Random Cortisol mcg/dl Urine Color Urine Appearance (Clear) Urine pH (4.5-7.5) Ur Specific [place] (1.000-1.030) Urine Protein (Negative) Urine Glucose (UA) (Negative) Urine Ketones (Negative) Urine Blood (Negative) Urine Nitrite (Negative) Urine Bilirubin (Negative) Urine Urobilinogen (Negative) Ur Leukocyte Esterase (Negative) Urine WBC (Auto) (0-5) /hpf Urine RBC (Auto) (0-2) /hpf U Hyaline Cast (Auto) (0-2) /lpf U Epithel Cells (Auto) (0-2) /hpf Urine Bacteria (Auto) (None Seen) Ur Random Creatinine mg/dl U Random Total Protein (0-11.9) mg/dl Protein/Creatinin Ratio (0-0.2) Nasal Screen MRSA (PCR) (Negative) Adenovirus (PCR) (NotDetected) B. pertussis DNA (PCR) (NotDetected) B.parapertussis DNA PCR (NotDetected) C. pneumoniae DNA (PCR) (NotDetected) Coronavirus OC43 (PCR) (NotDetected) Coronavirus HKU1 (PCR) (NotDetected) Coronavirus 229E (PCR) (NotDetected) SARS-CoV-2 (PCR) (NotDetected) Coronavirus NL63 (PCR) (NotDetected) Human Metapneumovir PCR (NotDetected) Influenza Type A (PCR) (NotDetected) Influenza Type B (PCR) (NotDetected) M. pneumoniae (PCR) (NotDetected) Parainfluenza 1 (PCR) (NotDetected) Parainfluenza 2 (PCR) (NotDetected) Parainfluenza 3 (PCR) (NotDetected) Parainfluenza 4 (PCR) (NotDetected) RSV (PCR) (NotDetected) Entero/Rhino (PCR) (NotDetected) Staphylococcus sp PCR (NotDetected) Bld Cult ID Panel PCR (NotDetected) 03/08/24 03/08/24 03/07/24 Range/Units 22:28 07:05 07:19 WBC 11.07 H 10.71 Cancelled (4.8-10.8) K/ul RBC 3.46 L 3.57 L Cancelled (4.20-5.40) M/uL Hgb 8.9 L 9.1 L Cancelled (12.0-16.0) g/dl POC Hgb (12.0-16.0) g/dl Hct 28.3 L 29.0 L Cancelled (37.0-47.0) % POC Hct (37-47) % MCV 81.8 81.2 Cancelled (80.0-100.0) fL MCH 25.7 25.5 Cancelled (25.0-34.0) pg MCHC 31.4 L 31.4 L Cancelled (32.0-36.0) g/dL RDW Std Deviation 50.9 H 50.1 H Cancelled (36.4-46.3) fL RDW Coeff of Chantal 17.3 H 17.0 H Cancelled (11.5-14.5) % Plt Count 86 L 91 L Cancelled (130-400) K/uL MPV 12.6 H 12.8 H Cancelled (9.4-12.4) fL Immature Gran % (Auto) 0.5 % Neut % (Auto) 85.7 % Lymph % (Auto) 10.9 % Rains % (Auto) 2.5 % Eos % (Auto) 0.3 % Baso % (Auto) 0.1 % Neut # (Auto) 9.49 H (1.40-6.50) K/uL Lymph # (Auto) 1.21 (1.20-3.40) K/uL Rains # (Auto) 0.28 (0.11-0.59) K/uL Eos # (Auto) 0.03 (0.00-0.50) K/uL Baso # (Auto) 0.01 (0.00-0.20) K/uL Immature Gran # (Auto) 0.05 (0.01-0.20) K/uL Absolute Nucleated RBC Cancelled Nucleated RBC % (auto) Cancelled Platelet Estimate Cancelled ESR (0-30) mm/hr PT 15.0 H (9.0-12.0) Seconds INR 1.4 H (0.9-1.1) APTT 51 H (21-31) Seconds PTT Ratio 1.9 Heparin Anti-Xa, Unfract (0.3-0.7) IU/ml VBG pH (7.36-7.41) VBG pCO2 (38-50) mmHg VBG pO2 mmHg VBG HCO3 mmol/L VBG O2 Saturation % VBG Base Excess mEq/L POC Sodium (135-144) mmol/L Sodium 137 138 (136-145) mmol/L POC Potassium (3.3-5.0) mmol/L Potassium 3.9 3.8 (3.5-5.1) mmol/L POC Chloride (101-112) mmol/L Chloride 108 H 109 H (98-107) mmol/L Carbon Dioxide 20 L 19 L (21-32) mmol/L POC Total CO2 (24-31) mmol/L Anion Gap 9 10 (3-11) POC Anion Gap (16-25) mmol/L POC BUN (7-18) mg/dl BUN 86 H 86 H (6-23) mg/dl Creatinine 3.26 H 3.17 H (0.6-1.2) mg/dl POC Creatinine (0.6-1.3) mg/dl Est Cr Clr Drug Dosing 22.5 23.1 ml/min Est GFR ( Amer) 16.4 17.0 ml/min Est GFR (Non-Af Amer) 14.2 14.6 ml/min BUN/Creatinine Ratio 26.4 H 27.1 H (10-20) Glucose 64 L 72 (70-99(Fasting)) mg/dl POC Glucose (other) (70-99) mg/dl Lactate (0.4-2.0) mmol/L Calcium 6.8 L 6.5 L (8.6-10.3) mg/dl POC Ioniz Calcium Kat (1.12-1.32) mmol/l Ionized Calcium (1.12-1.32) mmol/L Phosphorus 6.7 H 6.3 H (2.5-4.9) mg/dl Magnesium 1.8 1.8 (1.7-2.4) mg/dl Total Bilirubin 0.5 0.4 (0.2-1.0) mg/dl Direct Bilirubin (0-0.2) mg/dl AST 42 H 53 H (13-39) U/L ALT 27 28 (7-52) U/L Alkaline Phosphatase 212 H 234 H (34-104) U/L Ammonia (18-72) umol/L Troponin I High Sens (0-14) pg/ml C-Reactive Protein 8.05 H (0-0.5) mg/dl B-Natriuretic Peptide 285 H (0-100) pg/ml Total Protein 4.1 L 4.0 L (6.0-8.3) gm/dl Albumin < 1.5 L < 1.5 L (3.4-5.0) gm/dl Globulin TNP TNP Albumin/Globulin Ratio TNP TNP Prealbumin (20-40) mg/dl Procalcitonin 0.88 H (0-0.5) ng/ml TSH (0.300-4.500) uIu/ml Random Cortisol mcg/dl Urine Color Urine Appearance (Clear) Urine pH (4.5-7.5) Ur Specific [place] (1.000-1.030) Urine Protein (Negative) Urine Glucose (UA) (Negative) Urine Ketones (Negative) Urine Blood (Negative) Urine Nitrite (Negative) Urine Bilirubin (Negative) Urine Urobilinogen (Negative) Ur Leukocyte Esterase (Negative) Urine WBC (Auto) (0-5) /hpf Urine RBC (Auto) (0-2) /hpf U Hyaline Cast (Auto) (0-2) /lpf U Epithel Cells (Auto) (0-2) /hpf Urine Bacteria (Auto) (None Seen) Ur Random Creatinine mg/dl U Random Total Protein (0-11.9) mg/dl Protein/Creatinin Ratio (0-0.2) Nasal Screen MRSA (PCR) (Negative) Adenovirus (PCR) (NotDetected) B. pertussis DNA (PCR) (NotDetected) B.parapertussis DNA PCR (NotDetected) C. pneumoniae DNA (PCR) (NotDetected) Coronavirus OC43 (PCR) (NotDetected) Coronavirus HKU1 (PCR) (NotDetected) Coronavirus 229E (PCR) (NotDetected) SARS-CoV-2 (PCR) (NotDetected) Coronavirus NL63 (PCR) (NotDetected) Human Metapneumovir PCR (NotDetected) Influenza Type A (PCR) (NotDetected) Influenza Type B (PCR) (NotDetected) M. pneumoniae (PCR) (NotDetected) Parainfluenza 1 (PCR) (NotDetected) Parainfluenza 2 (PCR) (NotDetected) Parainfluenza 3 (PCR) (NotDetected) Parainfluenza 4 (PCR) (NotDetected) RSV (PCR) (NotDetected) Entero/Rhino (PCR) (NotDetected) Staphylococcus sp PCR (NotDetected) Bld Cult ID Panel PCR (NotDetected) 03/06/24 03/06/24 03/05/24 Range/Units 09:39 09:05 10:02 WBC 8.28 6.66 (4.8-10.8) K/ul RBC 3.71 L 3.49 L (4.20-5.40) M/uL Hgb 9.6 L 8.9 L (12.0-16.0) g/dl POC Hgb (12.0-16.0) g/dl Hct 30.0 L 28.0 L (37.0-47.0) % POC Hct (37-47) % MCV 80.9 80.2 (80.0-100.0) fL MCH 25.9 25.5 (25.0-34.0) pg MCHC 32.0 31.8 L (32.0-36.0) g/dL RDW Std Deviation 50.4 H 49.5 H (36.4-46.3) fL RDW Coeff of Chantal 17.2 H 17.2 H (11.5-14.5) % Plt Count 98 L 91 L (130-400) K/uL MPV 11.9 12.2 (9.4-12.4) fL Immature Gran % (Auto) 0.6 % Neut % (Auto) 79.3 % Lymph % (Auto) 13.7 % Rains % (Auto) 5.9 % Eos % (Auto) 0.3 % Baso % (Auto) 0.2 % Neut # (Auto) 5.29 (1.40-6.50) K/uL Lymph # (Auto) 0.91 L (1.20-3.40) K/uL Rains # (Auto) 0.39 (0.11-0.59) K/uL Eos # (Auto) 0.02 (0.00-0.50) K/uL Baso # (Auto) 0.01 (0.00-0.20) K/uL Immature Gran # (Auto) 0.04 (0.01-0.20) K/uL Absolute Nucleated RBC Nucleated RBC % (auto) Platelet Estimate ESR (0-30) mm/hr PT (9.0-12.0) Seconds INR (0.9-1.1) APTT (21-31) Seconds PTT Ratio Heparin Anti-Xa, Unfract (0.3-0.7) IU/ml VBG pH 7.35 L (7.36-7.41) VBG pCO2 33 L (38-50) mmHg VBG pO2 52 mmHg VBG HCO3 18 mmol/L VBG O2 Saturation 83.2 % VBG Base Excess -6.4 mEq/L POC Sodium (135-144) mmol/L Sodium 137 138 (136-145) mmol/L POC Potassium (3.3-5.0) mmol/L Potassium 4.1 4.1 (3.5-5.1) mmol/L POC Chloride (101-112) mmol/L Chloride 109 H 109 H (98-107) mmol/L Carbon Dioxide 19 L 19 L (21-32) mmol/L POC Total CO2 (24-31) mmol/L Anion Gap 9 10 (3-11) POC Anion Gap (16-25) mmol/L POC BUN (7-18) mg/dl BUN 86 H 87 H (6-23) mg/dl Creatinine 3.25 H 3.13 H (0.6-1.2) mg/dl POC Creatinine (0.6-1.3) mg/dl Est Cr Clr Drug Dosing 22.5 23.1 ml/min Est GFR ( Amer) 16.5 17.2 ml/min Est GFR (Non-Af Amer) 14.2 14.9 ml/min BUN/Creatinine Ratio 26.5 H 27.8 H (10-20) Glucose 77 73 (70-99(Fasting)) mg/dl POC Glucose (other) (70-99) mg/dl Lactate (0.4-2.0) mmol/L Calcium 6.6 L 6.5 L (8.6-10.3) mg/dl POC Ioniz Calcium Kat (1.12-1.32) mmol/l Ionized Calcium 1.06 L (1.12-1.32) mmol/L Phosphorus 6.3 H 6.2 H (2.5-4.9) mg/dl Magnesium 1.6 L 1.6 L (1.7-2.4) mg/dl Total Bilirubin 0.6 0.5 (0.2-1.0) mg/dl Direct Bilirubin (0-0.2) mg/dl AST 63 H 40 H (13-39) U/L ALT 29 20 (7-52) U/L Alkaline Phosphatase 267 H 215 H (34-104) U/L Ammonia (18-72) umol/L Troponin I High Sens (0-14) pg/ml C-Reactive Protein 10.73 H (0-0.5) mg/dl B-Natriuretic Peptide 228 H (0-100) pg/ml Total Protein 4.1 L 3.9 L (6.0-8.3) gm/dl Albumin < 1.5 L < 1.5 L (3.4-5.0) gm/dl Globulin TNP TNP Albumin/Globulin Ratio TNP TNP Prealbumin 4.7 L (20-40) mg/dl Procalcitonin 0.82 H (0-0.5) ng/ml TSH 3.936 (0.300-4.500) uIu/ml Random Cortisol mcg/dl Urine Color Urine Appearance (Clear) Urine pH (4.5-7.5) Ur Specific [place] (1.000-1.030) Urine Protein (Negative) Urine Glucose (UA) (Negative) Urine Ketones (Negative) Urine Blood (Negative) Urine Nitrite (Negative) Urine Bilirubin (Negative) Urine Urobilinogen (Negative) Ur Leukocyte Esterase (Negative) Urine WBC (Auto) (0-5) /hpf Urine RBC (Auto) (0-2) /hpf U Hyaline Cast (Auto) (0-2) /lpf U Epithel Cells (Auto) (0-2) /hpf Urine Bacteria (Auto) (None Seen) Ur Random Creatinine mg/dl U Random Total Protein (0-11.9) mg/dl Protein/Creatinin Ratio (0-0.2) Nasal Screen MRSA (PCR) Positive A (Negative) Adenovirus (PCR) (NotDetected) B. pertussis DNA (PCR) (NotDetected) B.parapertussis DNA PCR (NotDetected) C. pneumoniae DNA (PCR) (NotDetected) Coronavirus OC43 (PCR) (NotDetected) Coronavirus HKU1 (PCR) (NotDetected) Coronavirus 229E (PCR) (NotDetected) SARS-CoV-2 (PCR) (NotDetected) Coronavirus NL63 (PCR) (NotDetected) Human Metapneumovir PCR (NotDetected) Influenza Type A (PCR) (NotDetected) Influenza Type B (PCR) (NotDetected) M. pneumoniae (PCR) (NotDetected) Parainfluenza 1 (PCR) (NotDetected) Parainfluenza 2 (PCR) (NotDetected) Parainfluenza 3 (PCR) (NotDetected) Parainfluenza 4 (PCR) (NotDetected) RSV (PCR) (NotDetected) Entero/Rhino (PCR) (NotDetected) Staphylococcus sp PCR (NotDetected) Bld Cult ID Panel PCR (NotDetected) 03/04/24 03/04/24 03/04/24 Range/Units 19:15 12:15 10:36 WBC (4.8-10.8) K/ul RBC (4.20-5.40) M/uL Hgb (12.0-16.0) g/dl POC Hgb (12.0-16.0) g/dl Hct (37.0-47.0) % POC Hct (37-47) % MCV (80.0-100.0) fL MCH (25.0-34.0) pg MCHC (32.0-36.0) g/dL RDW Std Deviation (36.4-46.3) fL RDW Coeff of Chantal (11.5-14.5) % Plt Count (130-400) K/uL MPV (9.4-12.4) fL Immature Gran % (Auto) % Neut % (Auto) % Lymph % (Auto) % Rains % (Auto) % Eos % (Auto) % Baso % (Auto) % Neut # (Auto) (1.40-6.50) K/uL Lymph # (Auto) (1.20-3.40) K/uL Rains # (Auto) (0.11-0.59) K/uL Eos # (Auto) (0.00-0.50) K/uL Baso # (Auto) (0.00-0.20) K/uL Immature Gran # (Auto) (0.01-0.20) K/uL Absolute Nucleated RBC Nucleated RBC % (auto) Platelet Estimate ESR (0-30) mm/hr PT (9.0-12.0) Seconds INR (0.9-1.1) APTT (21-31) Seconds PTT Ratio Heparin Anti-Xa, Unfract (0.3-0.7) IU/ml VBG pH (7.36-7.41) VBG pCO2 (38-50) mmHg VBG pO2 mmHg VBG HCO3 mmol/L VBG O2 Saturation % VBG Base Excess mEq/L POC Sodium (135-144) mmol/L Sodium (136-145) mmol/L POC Potassium (3.3-5.0) mmol/L Potassium (3.5-5.1) mmol/L POC Chloride (101-112) mmol/L Chloride (98-107) mmol/L Carbon Dioxide (21-32) mmol/L POC Total CO2 (24-31) mmol/L Anion Gap (3-11) POC Anion Gap (16-25) mmol/L POC BUN (7-18) mg/dl BUN (6-23) mg/dl Creatinine (0.6-1.2) mg/dl POC Creatinine (0.6-1.3) mg/dl Est Cr Clr Drug Dosing ml/min Est GFR ( Amer) ml/min Est GFR (Non-Af Amer) ml/min BUN/Creatinine Ratio (10-20) Glucose (70-99(Fasting)) mg/dl POC Glucose (other) (70-99) mg/dl Lactate (0.4-2.0) mmol/L Calcium (8.6-10.3) mg/dl POC Ioniz Calcium Kat (1.12-1.32) mmol/l Ionized Calcium (1.12-1.32) mmol/L Phosphorus (2.5-4.9) mg/dl Magnesium (1.7-2.4) mg/dl Total Bilirubin (0.2-1.0) mg/dl Direct Bilirubin (0-0.2) mg/dl AST (13-39) U/L ALT (7-52) U/L Alkaline Phosphatase (34-104) U/L Ammonia (18-72) umol/L Troponin I High Sens (0-14) pg/ml C-Reactive Protein (0-0.5) mg/dl B-Natriuretic Peptide (0-100) pg/ml Total Protein (6.0-8.3) gm/dl Albumin (3.4-5.0) gm/dl Globulin Albumin/Globulin Ratio Prealbumin (20-40) mg/dl Procalcitonin (0-0.5) ng/ml TSH (0.300-4.500) uIu/ml Random Cortisol mcg/dl Urine Color Yellow Urine Appearance Clear (Clear) Urine pH 5.0 (4.5-7.5) Ur Specific [place] 1.012 (1.000-1.030) Urine Protein Negative (Negative) Urine Glucose (UA) Negative (Negative) Urine Ketones Negative (Negative) Urine Blood Negative (Negative) Urine Nitrite Negative (Negative) Urine Bilirubin Negative (Negative) Urine Urobilinogen Negative (Negative) Ur Leukocyte Esterase 2+ H (Negative) Urine WBC (Auto) 11-20 H (0-5) /hpf Urine RBC (Auto) 0-2 (0-2) /hpf U Hyaline Cast (Auto) 3-5 H (0-2) /lpf U Epithel Cells (Auto) 0-2 (0-2) /hpf Urine Bacteria (Auto) None Seen (None Seen) Ur Random Creatinine 51.2 mg/dl U Random Total Protein 19.3 H (0-11.9) mg/dl Protein/Creatinin Ratio 0.4 H (0-0.2) Nasal Screen MRSA (PCR) Positive A (Negative) Adenovirus (PCR) Not Detected (NotDetected) B. pertussis DNA (PCR) Not Detected (NotDetected) B.parapertussis DNA PCR Not Detected (NotDetected) C. pneumoniae DNA (PCR) Not Detected (NotDetected) Coronavirus OC43 (PCR) Not Detected (NotDetected) Coronavirus HKU1 (PCR) Not Detected (NotDetected) Coronavirus 229E (PCR) Not Detected (NotDetected) SARS-CoV-2 (PCR) Not Detected (NotDetected) Coronavirus NL63 (PCR) Not Detected (NotDetected) Human Metapneumovir PCR Not Detected (NotDetected) Influenza Type A (PCR) Not Detected (NotDetected) Influenza Type B (PCR) Not Detected (NotDetected) M. pneumoniae (PCR) Not Detected (NotDetected) Parainfluenza 1 (PCR) Not Detected (NotDetected) Parainfluenza 2 (PCR) Not Detected (NotDetected) Parainfluenza 3 (PCR) Not Detected (NotDetected) Parainfluenza 4 (PCR) Not Detected (NotDetected) RSV (PCR) Not Detected (NotDetected) Entero/Rhino (PCR) Not Detected (NotDetected) Staphylococcus sp PCR (NotDetected) Bld Cult ID Panel PCR (NotDetected) 03/04/24 03/04/24 Range/Units 10:33 10:30 WBC 10.18 (4.8-10.8) K/ul RBC 4.20 (4.20-5.40) M/uL Hgb 10.8 L (12.0-16.0) g/dl POC Hgb 11.6 L (12.0-16.0) g/dl Hct 33.7 L (37.0-47.0) % POC Hct 34 L (37-47) % MCV 80.2 (80.0-100.0) fL MCH 25.7 (25.0-34.0) pg MCHC 32.0 (32.0-36.0) g/dL RDW Std Deviation 49.9 H (36.4-46.3) fL RDW Coeff of Hcantal 17.2 H (11.5-14.5) % Plt Count 132 (130-400) K/uL MPV 12.4 (9.4-12.4) fL Immature Gran % (Auto) 1.2 % Neut % (Auto) 81.6 % Lymph % (Auto) 11.3 % Rains % (Auto) 5.5 % Eos % (Auto) 0.2 % Baso % (Auto) 0.2 % Neut # (Auto) 8.31 H (1.40-6.50) K/uL Lymph # (Auto) 1.15 L (1.20-3.40) K/uL Rains # (Auto) 0.56 (0.11-0.59) K/uL Eos # (Auto) 0.02 (0.00-0.50) K/uL Baso # (Auto) 0.02 (0.00-0.20) K/uL Immature Gran # (Auto) 0.12 (0.01-0.20) K/uL Absolute Nucleated RBC Nucleated RBC % (auto) Platelet Estimate ESR 34 H (0-30) mm/hr PT 14.6 H (9.0-12.0) Seconds INR 1.4 H (0.9-1.1) APTT 41 H (21-31) Seconds PTT Ratio 1.5 Heparin Anti-Xa, Unfract (0.3-0.7) IU/ml VBG pH 7.31 L (7.36-7.41) VBG pCO2 37 L (38-50) mmHg VBG pO2 48 mmHg VBG HCO3 19 mmol/L VBG O2 Saturation 74.8 % VBG Base Excess -7.0 mEq/L POC Sodium 136 (135-144) mmol/L Sodium 137 (136-145) mmol/L POC Potassium 4.5 (3.3-5.0) mmol/L Potassium 4.5 (3.5-5.1) mmol/L POC Chloride 108 (101-112) mmol/L Chloride 107 (98-107) mmol/L Carbon Dioxide 19 L (21-32) mmol/L POC Total CO2 19 L (24-31) mmol/L Anion Gap 11 (3-11) POC Anion Gap 15.0 L (16-25) mmol/L POC BUN 81 H (7-18) mg/dl BUN 91 H (6-23) mg/dl Creatinine 3.30 H (0.6-1.2) mg/dl POC Creatinine 3.5 H (0.6-1.3) mg/dl Est Cr Clr Drug Dosing 20.4 ml/min Est GFR ( Amer) 16.2 ml/min Est GFR (Non-Af Amer) 13.9 ml/min BUN/Creatinine Ratio 27.6 H (10-20) Glucose 85 (70-99(Fasting)) mg/dl POC Glucose (other) 76 (70-99) mg/dl Lactate 1.1 (0.4-2.0) mmol/L Calcium 6.9 L (8.6-10.3) mg/dl POC Ioniz Calcium Kat 0.92 L (1.12-1.32) mmol/l Ionized Calcium (1.12-1.32) mmol/L Phosphorus 6.3 H (2.5-4.9) mg/dl Magnesium 1.6 L (1.7-2.4) mg/dl Total Bilirubin 0.6 (0.2-1.0) mg/dl Direct Bilirubin 0.2 (0-0.2) mg/dl AST 40 H (13-39) U/L ALT 19 (7-52) U/L Alkaline Phosphatase 216 H (34-104) U/L Ammonia 47.0 (18-72) umol/L Troponin I High Sens 16.4 H (0-14) pg/ml C-Reactive Protein 15.15 H (0-0.5) mg/dl B-Natriuretic Peptide (0-100) pg/ml Total Protein 4.7 L (6.0-8.3) gm/dl Albumin < 1.5 L (3.4-5.0) gm/dl Globulin Albumin/Globulin Ratio Prealbumin (20-40) mg/dl Procalcitonin 0.79 H (0-0.5) ng/ml TSH (0.300-4.500) uIu/ml Random Cortisol 22.07 mcg/dl Urine Color Urine Appearance (Clear) Urine pH (4.5-7.5) Ur Specific [place] (1.000-1.030) Urine Protein (Negative) Urine Glucose (UA) (Negative) Urine Ketones (Negative) Urine Blood (Negative) Urine Nitrite (Negative) Urine Bilirubin (Negative) Urine Urobilinogen (Negative) Ur Leukocyte Esterase (Negative) Urine WBC (Auto) (0-5) /hpf Urine RBC (Auto) (0-2) /hpf U Hyaline Cast (Auto) (0-2) /lpf U Epithel Cells (Auto) (0-2) /hpf Urine Bacteria (Auto) (None Seen) Ur Random Creatinine mg/dl U Random Total Protein (0-11.9) mg/dl Protein/Creatinin Ratio (0-0.2) Nasal Screen MRSA (PCR) (Negative) Adenovirus (PCR) (NotDetected) B. pertussis DNA (PCR) (NotDetected) B.parapertussis DNA PCR (NotDetected) C. pneumoniae DNA (PCR) (NotDetected) Coronavirus OC43 (PCR) (NotDetected) Coronavirus HKU1 (PCR) (NotDetected) Coronavirus 229E (PCR) (NotDetected) SARS-CoV-2 (PCR) (NotDetected) Coronavirus NL63 (PCR) (NotDetected) Human Metapneumovir PCR (NotDetected) Influenza Type A (PCR) (NotDetected) Influenza Type B (PCR) (NotDetected) M. pneumoniae (PCR) (NotDetected) Parainfluenza 1 (PCR) (NotDetected) Parainfluenza 2 (PCR) (NotDetected) Parainfluenza 3 (PCR) (NotDetected) Parainfluenza 4 (PCR) (NotDetected) RSV (PCR) (NotDetected) Entero/Rhino (PCR) (NotDetected) Staphylococcus sp PCR DETECTED A (NotDetected) Bld Cult ID Panel PCR See PCR Comment (NotDetected) Diagnostic Findings Abdomen/Pelvis CT 03/04/24 10:01 CT OF THE ABDOMEN AND PELVIS WITHOUT CONTRAST CLINICAL HISTORY: Abdominal wall cellulitis. COMPARISON STUDY: Pelvic ultrasound October 28, 2023. CT of the abdomen and pelvis December 01, 2020. TECHNIQUE: Axial images of the abdomen and pelvis were obtained without IV contrast. Images were reviewed in the axial, sagittal, and coronal planes. Automated exposure control was utilized for the study. A dose lowering technique was utilized adhering to the principles of ALARA. FINDINGS: The heart is enlarged. Moderate bilateral pleural effusions are partially imaged. Associated subpleural opacities favor atelectasis although an infectious process could appear similar. Patchy right middle lobe and additional right lower lobe opacities favor an infectious process. Marked anasarca is noted, including left breast edema. The abdominal wall/flanks are partially imaged on this examination. Extensive subcutaneous edema is noted. No well- defined fluid collections are present. There is no soft tissue gas. Evaluation of the abdomen and pelvis is suboptimal on this unenhanced examination. There is a small hiatal hernia. Postoperative findings consistent with gastric bypass are noted. There is no evidence for a bowel obstruction. There is a large amount of stool within the rectum and moderate amount stool within the colon. Sigmoid diverticulosis without evidence for acute diverticulitis. There is extensive vascular calcification. Unenhanced images of the liver, spleen, adrenal glands, kidneys and pancreas are unremarkable. There are no fluid collections within the abdomen or pelvis. A Giraldo within the bladder is present. There is a small amount of abdominal and pelvic ascites. Left hip arthroplasty is noted. No acute periprosthetic fracture is noted. Heterotopic ossification/callus formation of the proximal left femur similar appearance to prior CT July 30, 2023. There is no lymphadenopathy. No acute fractures within the lumbar spine, pelvis or hips are identified. IMPRESSION: 1. Suboptimal evaluation of the abdomen and pelvis given lack of IV contrast. 2. Evidence for volume overload with marked anasarca, moderate bilateral pleural effusions and a small amount of abdominal and pelvic ascites. Extensive body wall edema, partially imaged on this exam. No fluid collections identified. No soft tissue gas. 3. Dependent airspace opacities within the lower lobes which favor atelectasis although pneumonia could appear similar. Patchy right middle lobe and additional right lower lobe airspace opacities which favor pneumonia. 4. No bowel obstruction. Sigmoid diverticulosis. No evidence for acute diverticulitis. 5. Large amount stool within the rectum and moderate amount of stool within the colon. ACT 112: Negative or not required by law. Electronically signed by: Ahsan Rebolledo M.D. 03/04/2024 12:58 PM Chest X-Ray 03/04/24 10:03 XR chest 1V portable HISTORY: 63 years-old Female sepsis acute sepsis COMPARISON: 07/29/2023 TECHNIQUE: AP view of the chest FINDINGS: Cardiac silhouette is enlarged. Small pleural effusions with mild left basilar opacities. Only vascular congestion with interstitial coarsening. No pneumothorax. Left shoulder arthroplasty. Degenerative changes of the spine and right shoulder. IMPRESSION: 1. Cardiomegaly with pulmonary vascular congestion and probable mild pulmonary edema. 2. Small pleural effusions with mild left basilar opacities favoring atelectasis. Pneumonia considered less likely. ACT 112: Negative or not required by law. The above report was generated using voice recognition software. It may contain grammatical, syntax or spelling errors. Electronically signed by: Timothy Tracy M.D. 03/04/2024 10:53 AM Venous Doppler Study 03/04/24 14:35 US venous doppler LE RT HISTORY: 63 years-old Female right leg swelling and pain ?DVT acute pain and swelling of the right lower leg COMPARISON: None TECHNIQUE: Multiple real-time sonographic images of the right lower extremity deep venous structures were obtained assessing grayscale appearance, color and spectral flow. FINDINGS: Normal flow, compressibility, phasicity and augmentation. Subcutaneous edema limits the study. IMPRESSION: No sonographic evidence of deep venous thrombosis. ACT 112: Negative or not required by law. The above report was generated using voice recognition software. It may contain grammatical, syntax or spelling errors. Electronically signed by: Timothy Tracy M.D. 03/04/2024 6:19 PM PG Care Time/CCT Total # of Minutes Spent Total Time Spent with Patient: Total time spent is greater than 50% in coordination of care (as documented) at patient's floor/unit and/or counseling patient: I spent 140 minutes overall addressing this very complex case: 15 min in medical data review/discussion with referring provider(s) and/or preparation for the visit 15 min in direct interaction with the patient/exam 80 min in Advance Care Planning/Goals of Care discussions as detailed above in note (must be >16min) 15 min in subsequent review and synthesis of assessment and plan 15 min communicating with other providers regarding the patient's case: nursing, care mgt, primary team Advanced Care Planning 83692 Advanced Care Planning 30 Min [id number] Advanced Care Planning Additional 30 [place] [address] IN/OBS CONSULT LVL 4,60M (25 - SIGNIFICANT, SEPARATELY IDENTIFIABLE ) Patient Type New Medical Decision Making High Complexity Diagnoses Generalized pain R52 Abdominal pain, generalized R10.84 Weakness generalized R53.1 Advanced care planning/counseling discussion Z71.89 Palliative care by specialist Z51.5 Additional Codes Advanced Care Planning - 53127 Advanced Care Planning 30 Min: 51910 Advanced Care Planning 30 Min ([id number]) Advanced Care Planning - 31108 Advanced Care Planning Additional 30 Min: 30307 Advanced Care Planning Additional 30 Min ([id number])
[2024-03-09] MEDS ORDERED: HYDROmorphone BOLUS from BAG IV PRN (11:15)
[2024-03-09] MEDS ORDERED: LORazepam 2 MG/1 ML VIAL IV PRN (11:15)
[2024-03-09] MEDS ORDERED: GLYCOPYRROLATE 0.2 MG/ML VIAL IV PRN (11:15)
[2024-03-09] MEDS: VANCOMYCIN HCL 2,000 MG in SODIUM CHLORIDE 0.9% 500 ML IV ONE (11:21)
--- NOTE | 2024-03-09 11:54 | Hospitalist Progress Note ---
Date of Service March 09, 2024 Assessment & Plan (1) Comfort measures only status: Plan: With sepsis, bacteremia, PNA, UTI, abdominal wall cellulitis, sacral wounds, PATY, in setting of bed bound status, ambulatory dysfunction for months, chronic pain--> decision made by pt and to pursue APPLICATIONS PROGRAMMER on 03/09 Appreciate Palliative Med consult Stop all labs and meds unless for comfort Start dilaudid gtt, ativan prn, robinul prn DOwngrade to medical unit (2) PATY (acute kidney injury): Plan: Urine retention on arrival with undetectable BP - suspect combination of both causing PATY special loan officer worse up to 3.48 Converting to APPLICATIONS PROGRAMMER now, no further lab draws Maintain Hawkins catheter (3) Sepsis: Plan: Multiple possible sources including pneumonia ([employer] PCR negative), urine and abdominal/sacral cellulitis (most likely driving cause), 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 Does not meet SIRS criteria but does meet qSOFA (reduced AMS and sBP < 100) Patient on ciprofloxacin and doxycycline Since Remains hypotensive from sepsis and profound hypoalbuminemia, failure to thrive Received Zosyn, daptomycin --> converted to Vanco given PNA, but now stop all abx on APPLICATIONS PROGRAMMER (4) Pneumonia: Plan: treated with abx and now on APPLICATIONS PROGRAMMER (5) Abdominal wall cellulitis: Plan: as above (6) Metabolic encephalopathy: Plan: Ammonia WNL Suspect secondary to hypotension, infection, opiate use / sedating medications worsened with hypotension now on APPLICATIONS PROGRAMMER (7) UTI (urinary tract infection): Plan: With VRE in urine cx treated with abx, now stopping all abx on APPLICATIONS PROGRAMMER (8) Anasarca: Plan: Albumin < 1.5 without significant proteinuria and significant ascites suggestive more of chronic poor nutritional state ECHO with preserved EF< mildly dilated RV No diuretics to be given, no IVFs, now on APPLICATIONS PROGRAMMER (9) Acute urinary retention: Plan: On arrival to ER Now with hawkins catheter-maintain (10) Atrial fibrillation: Plan: Permanent dc diltiazem, Eliquis, now on APPLICATIONS PROGRAMMER, downgrade off tele (11) Right leg swelling: Plan: US venous doppler neg for DVT (12) Cirrhosis: Plan: Noted on liver US in November. However no large ascites despite extensive anasaraca elsewhere suggesting most of her third spacing is more nutritional. Plt WNL. Ammonia within normal limits. Likely contributing to thrombocytopenia, leukopenia (13) TRUMAN (obstructive sleep apnea): Plan: Intolerant to CPAP in the past, likely contributing towards right sided heart failure (14) Ambulatory dysfunction: Plan: Per her she has been bed bound for 5 months. (15) Severe protein-calorie malnutrition: Plan: now food for comfort Plan VTE prophylaxis - Tammy now stopped on APPLICATIONS PROGRAMMER Disposition -downgrade to medical unit on APPLICATIONS PROGRAMMER, expect her to pass away within 7 days discussed care at length with at bedside 03/09 Admission and Anticipated Discharge Date Admission Date: March 04, 2024 Subjective Pt lethargic, hypotensive overnight, receiving IV albumin. having a lot of pain. Wants to be "done" with everything and asks for a plaster machine operator. I discussed her care with at the bedside who reports he knows her time to pass is coming and he doesn't want to see her suffering anymore. 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 Exam Constitutional: + ill appearing and + lethargic Respiratory: normal respiratory effort Cardiovascular: Rate/Rhythm: regular rate and + irregularly irregular Psychiatric: Orientation: + not alert Results & Data Results & Data Vital Signs (Past 12 Hours) Vital Signs Temp Pulse Pulse Resp BP Pulse Ox O2 Del Method 03/09/24 08:47 88 18 92/52 L 100 Nasal Cannula 03/09/24 05:23 86/55 L 03/09/24 02:45 36.3 C L 83 12 84/52 L 100 Nasal Cannula 03/09/24 01:00 83 O2 Flow Rate 03/09/24 08:47 4 03/09/24 05:23 03/09/24 02:45 03/09/24 01:00 Laboratory Results CBC, BMP reviewed Blood and urine cxs reviewed PG Care Time/CCT Total # of Minutes Spent Total Time Spent with Patient: Total time spent is greater than 50% in coordination of care (as documented) at patient's floor/unit and/or counseling patient: Coding Level of Care Code 92036 SUB INP/OBS CARE 2/35MIN Diagnoses Comfort measures only status Z51.5 PATY (acute kidney injury) N17.9 Sepsis A41.9 Sepsis acute organ dysfunction status: unspecified Sepsis type: sepsis due to unspecified organism Pneumonia J18.9 Abdominal wall cellulitis L03.311 Metabolic encephalopathy G93.41 UTI (urinary tract infection) N39.0 Anasarca R60.1 Acute urinary retention R33.8 Atrial fibrillation I48.91 Atrial fibrillation type: unspecified Right leg swelling M79.89 Cirrhosis K74.60 TRUMAN (obstructive sleep apnea) G47.33 Ambulatory dysfunction R26.2 Severe protein-calorie malnutrition E43 (3) Sepsis Sepsis acute organ dysfunction status: unspecified Sepsis type: sepsis due to unspecified organism Qualified Code(s): A41.9 - Sepsis, unspecified organism (10) Atrial fibrillation Atrial fibrillation type: unspecified Qualified Code(s): I48.91 - Unspecified atrial fibrillation
[2024-03-09] MEDS: HYDROmorphone/NSS 100 MG/100 ML BAG IV SCH (12:23)
[2024-03-09 13:32] LABS: ANTI-Xa, UFH(UnfractionatedHep > 1.50 IU/ml (0.3-0.7)
[2024-03-09] MEDS: HYDROmorphone BOLUS from BAG IV PRN (15:16)
[2024-03-10 08:10] VITALS: BP 86/58; PULSE 90; RESP 16; O2SAT 94
--- NOTE | 2024-03-10 16:10 | Discharge Summary ---
Discharge Summary Date of Service March 10, 2024 Principal Dx & Hospital Course #1 = Principal Diagnosis (1) Comfort measures only status: With sepsis, bacteremia, PNA, UTI, abdominal wall cellulitis, sacral wounds, PATY, in setting of bed bound status, ambulatory dysfunction for months, chronic pain--> decision made by pt and to pursue SKIP MINER BLASTING on 03/09 Appreciate Palliative Med consult Stopped all labs and meds unless for comfort Started dilaudid gtt, ativan prn, robinul prn Discharging to general inpatient hospice (2) PATY (acute kidney injury): Urine retention on arrival with undetectable BP - suspect combination of both causing 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 up to 3.48 Converted to SKIP MINER BLASTING, no further lab draws Maintain Hawkins catheter (3) Sepsis: Multiple possible sources including pneumonia (Biofire PCR negative), urine and abdominal/sacral cellulitis (most likely driving cause), 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 Does not meet SIRS criteria but does meet qSOFA (reduced AMS and sBP < 100) Patient on ciprofloxacin and doxycycline Since Remains hypotensive from sepsis and profound hypoalbuminemia, failure to thrive Received Zosyn, daptomycin --> converted to Vanco given PNA, but then stopped all abx on SKIP MINER BLASTING (4) Pneumonia: treated with abx and now on SKIP MINER BLASTING (5) Abdominal wall cellulitis: as above (6) Metabolic encephalopathy: Ammonia WNL Suspect secondary to hypotension, infection, opiate use / sedating medications worsened with hypotension now on SKIP MINER BLASTING (7) UTI (urinary tract infection): With VRE in urine cx treated with abx, now stopping all abx on SKIP MINER BLASTING (8) Anasarca: Albumin < 1.5 without significant proteinuria and significant ascites suggestive more of chronic poor nutritional state ECHO with preserved EF< mildly dilated RV No diuretics to be given, no IVFs, now on SKIP MINER BLASTING (9) Acute urinary retention: On arrival to ER Now with hawkins catheter-maintain (10) Atrial fibrillation: Permanent dc diltiazem, Eliquis, now on SKIP MINER BLASTING (11) Right leg swelling: US venous doppler neg for DVT (12) Cirrhosis: Noted on liver US in November. However no large ascites despite extensive anasaraca elsewhere suggesting most of her third spacing is more nutritional. Plt WNL. Ammonia within normal limits. Likely contributing to thrombocytopenia, leukopenia (13) TRUMAN (obstructive sleep apnea): Intolerant to CPAP in the past, likely contributing towards right sided heart failure (14) Ambulatory dysfunction: Per her she has been bed bound for 5 months. (15) Severe protein-calorie malnutrition: now food for comfort Plan VTE prophylaxis - Eliquis now stopped on SKIP MINER BLASTING Disposition -discharged to general inpatient hospice Notes For Next Care Provider Transitioning to inpatient hospice Medication Changes From Visit Stopped all home medications Added IV Dilaudid drip Added IV Ativan as needed and Robinul as needed Admission HPI Per Admitting Provider Jerri Arellano is a 63 year old female who presents to the ER with hypotension. She has been at [facility] since August however apparently is not currently a shelter resident there therefore is still under her previous PCP Dr Bravo. Unable to get any significant history from the patient. Her reports she has become increasingly confused and lethargic over the last 5 days. She has chronic ongoing abdominal wounds which he reports is better than when previously seen. She is currently on ciprofloxacin and doxycycline for MRSA and pseudomonas grown from wound cultures by report. Hand over note from half-way reports - [facility] was unable to get a manual BP this morning after decreasing her sedating medications yesterday due to lethargy (trazodone was discontinued, Buspar decreased to 5mg PO BID, Lyrica decreased to 25mg PO BID, OxyContin decreased to 10mg daily with plans to then discharge after this, oxycodone decreased to 5mg q6h PRN). They report she has not voided in the last 24 hours and bladder scanned for 700ml this morning but the patient refused a Hawkins catheter. She was having some hallucinations yesterday but more alert today. She is on chronic opiates for pain. Discharge Exam Constitutional + ill appearing and + lethargic Respiratory normal respiratory effort Psychiatric Orientation: + not alert Discharge Plan Discharge Items Patient Disposition: Hospice - Medical Facility Reason For Visit: SEPSIS Discharge Diagnosis: Sepsis, bacteremia, UTI, pneumonia Acute kidney injury Condition on Discharge: Serious Activity: As commented below Bathing: No limitations Exercise/Sports: Rest today Non-emergency contact: Primary Care Provider Call non-emergency contact if: you have any medication questions Follow-up/Referrals: Emerald Hua MD [Primary Care Provider] - Diet: Nothing by Mouth Addtl Attending Provider Instructions: Discharged to general inpatient hospice Pending Studies at Discharge: No Stand-Alone Forms: My [facility] Skilled Items Patient informed of condition?: Yes DNR: Yes Discharge Level of Care: Other Communicable Disease: No Discharge Prognosis: Deteriorating Lines: Peripheral IV Urinary Catheter: Yes Medications and DC Order Prescriptions: Discontinued (DME) lancets [OneTouch UltraSoft Lancets] Misc See Rx Instructions .ROUTE .MEDSUPPLY Qty: 400 3RF Rx Instructions: test blood sugar 4 x daily (DME) blood sugar diagnostic Strip See Dose Instructions .ROUTE .MEDSUPPLY Qty: 300 3RF Dose Instruction: As directed Rx Instructions: test blood sugar 3 x daily. OneTouch ultra blue test strips. levothyroxine 50 mcg tablet 50 mcg PO DAILYBB Qty: 90 1RF Rx Instructions: take with 8 oz of water (DME) insulin syringe-needle U-100 [Easy Comfort Insulin Syringe] 0.5 mL 31 gauge x 5/16" syringe See Rx Instructions .ROUTE .MEDSUPPLY Qty: 400 3RF Rx Instructions: Use four times a day with insulin injection folic acid 1 mg tablet 1 mg PO QAM Qty: 90 3RF Retacrit 40,000 unit/mL solution 40,000 unit subcut UD 28 Days Qty: 28 6RF Rx Instructions: weekly on Fridays, hold for Hb 11 or higher bumetanide 2 mg tablet 2 mg PO QAM Hold Instructions: Resume on 05/24/23. metoprolol succinate 25 mg tablet extended release 24 hr 25 mg PO DAILY Qty: 90 3RF Rx Instructions: Hold if systolic is less than 100 or HR less than 60 Eliquis 5 mg tablet 5 mg PO BID Qty: 60 2RF cyanocobalamin (vitamin B-12) 2,500 mcg tablet 2,500 mcg PO 2XWK Rx Instructions: TUES & THURS ONLY diltiazem HCl 180 mg capsule,extended release 24 hr 180 mg PO QAM cholecalciferol (vitamin D3) 125 mcg (5,000 unit) capsule 125 mcg PO DAILY loperamide [Anti-Diarrheal (loperamide)] 2 mg capsule 2 mg PO TID PRN (Reason: Diarrhea) ondansetron HCl 4 mg tablet 4 mg PO Q6H PRN (Reason: nausea and vomiting) acetaminophen [Tylenol] 325 mg capsule 650 mg PO QID PRN (Reason: Fever Or Pain) Rx Instructions: For pain 1-4 or fever > 100. Do not exceed 3000mg in 24 hrs buspirone 5 mg Tablet 5 mg PO BID miconazole nitrate [Remedy Antifungal] 2 % Powder 1 applic TOPICAL BID Rx Instructions: Start date 02/26/24 - End Date 03/17/24 ciprofloxacin HCl 500 mg tablet 500 mg PO UD Rx Instructions: Take 500mg by mouth every 18 hours. Starting on 02/28/24 - Ending on 03/08/24 bisacodyl 10 mg Suppository 10 mg CA DAILY PRN (Reason: Constipation) Rx Instructions: If dulcolax is ineffective, administer on the morning of day 5 of no bowel movement polymyxin B sulf-trimethoprim 10,000 unit- 1 mg/mL drops 1 drp OPB DAILY povidone-iodine 10 % Swab See Rx Instructions .ROUTE .COMPLEX Rx Instructions: Cleanse right lateral calf/ankle and heel with nss. Apply betadine and leave open to air twice daily bisacodyl 5 mg Tablet,Delayed Release (Dr/Ec) 5 mg PO DAILY PRN (Reason: Constipation) Rx Instructions: Administer on day 4 in the morning if no BM calcium carbonate [Antacid Calcium Supplement] 500 mg calcium (1,250 mg) Tablet,Chewable 500 mg PO Q6H PRN (Reason: Indigestion) zinc sulfate 220 mg Capsule 220 mg PO BID clotrimazole 1 % Cream See Rx Instructions .ROUTE .COMPLEX Rx Instructions: Cleanse right/left groin area w/ soap and water. Pat dry and apply clotrimazole to base of wound. Do this twice daily and additional if needed. doxycycline hyclate 100 mg tablet 100 mg PO BID Rx Instructions: Start Date 02/27/24 - End Date 03/08/24 Dakin's Solution 0.25 % Solution 1 applic TOPICAL UD Rx Instructions: Cleanse right proximal lateral hip and right lower quadrant pressure areas twice daily and additional if needed. pregabalin 25 mg capsule 25 mg PO BID carboxymethylcellulose sodium [Refresh Celluvisc] 1 % Dropperette,Gel 1 drp OPB TID diclofenac sodium 1 % gel 4 g TOPICAL TID fluvoxamine 150 mg capsule,extended release 24hr 150 mg PO HS Certavite-Antioxidant 18-400 mg-mcg Tablet 1 tab PO QAM multivitamin with folic acid [High Potency Multivitamin] 400 mcg Tablet 1 tab PO DAILY Rx Instructions: At noon time Pro-Stat Sugar Free 15 gram- 100 kcal/30 mL Liquid In Packet See Rx Instructions .ROUTE .COMPLEX Rx Instructions: Take 30ml mixed with 120ml of fluid of choice twice daily MediHoney (honey) 80 % Gel See Rx Instructions .ROUTE .COMPLEX Rx Instructions: Cleanse right proximal lateral hip and RLQ with Dakins, then apply medihoney to open area and cover with calcium alginate. Secure with super absorbent dressing oxycodone [OxyContin] 10 mg tablet,oral only,ext.rel.12 hr 10 mg PO QAM Rx Instructions: Start Date 03/03/24 - End Date 03/08/24 atorvastatin 80 mg tablet 0 mg PO HS Rx Instructions: On hold from 02/27/24 - 03/08/24 as pt is on cipro trazodone 50 mg tablet 0 mg PO HS Rx Instructions: Hold from 03/03/24 - 03/10/24. Original Directions: 25mg by mouth nightly ferrous sulfate 325 mg (65 mg iron) tablet,delayed release (DR/EC) 325 mg PO Q OTHER DAY oxycodone 5 mg tablet 0 mg PO Q6H PRN (Reason: Moderate to severe pain) Rx Instructions: Listed on MAR from nursing facility as 5mg by mouth every 6 hours as needed for moderate - severe pain oxycodone [OxyContin] 10 mg tablet,oral only,ext.rel.12 hr 0 mg PO Q12H Rx Instructions: MAR from nursing facility shows 10mg by mouth every 12 hours (9:01am and 9:01pm) for chronic pain syndrome. No end date. calcium carbonate [Calcium 600] 600 mg calcium (1,500 mg) Tablet 600 mg PO BID lorazepam [Ativan] 0.5 mg Tablet 0.5 mg PO BID PRN (Reason: Anxiety) copper gluconate 2 mg tablet 2 mg PO DAILY Qty: 1 0RF Rx Instructions: Noon time thiamine HCl (vitamin B1) 100 mg Tablet 100 mg PO QAM Qty: 0 0RF selenium 100 mcg tablet 100 mcg PO DAILY Qty: 1 0RF Discharge Orders: Discharge Order (Routine); Ordered 03/10/24 Ordered By: Sonya De Admission Data Admit Date/Time: 03/04/24 14:15 Attending Provider: Sonya De Admit Provider: Brendan Herron Primary Care Provider: Emerald Hua Other Providers: Alonso Frederick; Brendan Herron; Beatrice Stanley; Nima Holm; Eric Dobson Jr; Emilee Beltran; Crystal Zamudio; Marquise Thayer; Lyndsey Ramirez; [facility] Hospital Stay Data Consultations 03/04/24 12:51 ED Decision to Admit Stat 03/05/24 15:30 Consult Psychiatry Routine 03/09/24 08:26 Consult Palliative Care Routine Diagnostic Imagining Performed 03/04/24 10:01 CT abd pelvis wo con Stat 03/04/24 14:35 US venous doppler LE RT Stat Pending Results Patient Have Any Pending Studies at Discharge: No Discharge Instructions Given to Patient (Per Discharging Provider) Discharged to general inpatient hospice Total Time Total Time Spent Total Time Spent (In Minutes): 35 minutes Total Time Includes: Examination of the Patient, Discharge Planning and Medication Reconciliation Coding Level of Care Code 88253 INP/OBS DISCH >30 MIN Diagnoses Comfort measures only status Z51.5 PATY (acute kidney injury) N17.9 Sepsis A41.9 Sepsis acute organ dysfunction status: unspecified Sepsis type: sepsis due to unspecified organism Pneumonia J18.9 Abdominal wall cellulitis L03.311 Metabolic encephalopathy G93.41 UTI (urinary tract infection) N39.0 Anasarca R60.1 Acute urinary retention R33.8 Atrial fibrillation I48.91 Atrial fibrillation type: unspecified Right leg swelling M79.89 Cirrhosis K74.60 TRUMAN (obstructive sleep apnea) G47.33 Ambulatory dysfunction R26.2 Severe protein-calorie malnutrition E43
== END 2024-03-10 16:13 | disposition hospice, inpatient (51) | DRG 871 ==
LOC: ED 09:54 → EDINP 14:15 → SUATTDRO 14:15 → 2E 17:20 → 3W 03-09 16:48

== ENCOUNTER 2024-03-10 14:43 | Inpatient (IN) ==
[2024-03-10] MEDS ORDERED: ONDANSETRON INJ 2 MG/ML 2 ML VIAL IV PRN (16:12)
[2024-03-10] MEDS ORDERED: LORazepam 2 MG/1 ML VIAL IV PRN (16:12)
--- NOTE | 2024-03-10 16:23 | History & Physical Report ---
Date of Service March 10, 2024 Assessment & Plan (1) Comfort measures only status: Plan: Patient now on comfort measures only/inpatient hospice Continue Dilaudid drip at 0.4 Mg per hour with boluses of 0.5 Mg 30 minutes prior to turning/repositioning for comfort Ativan as needed for anxiety or agitation Robinul as needed for secretions Support given to family at bedside Disposition-expect patient to pass away within 3 to 4 days History of Present Illness Chief Complaint: Inpatient hospice Primary Care Provider: Emerald Hua MD This patient is a 63-year-old female who was admitted to the hospital previously for sepsis, pneumonia, UTI, bacteremia, and acute kidney injury. She had hypotension and significant chronic pain issues. Decision was made to transition her to general inpatient hospice. Please see discharge summary from same DOS on 03/10 for further details of that admission. Allergies Allergy/AdvReac Type Severity Reaction Status Date / Time Iodinated Contrast Media Allergy Unknown Unknown Verified 12/17/23 07:28 [Iodinated Contrast- Oral and IV Dye] promethazine AdvReac Intermediate BROKEN Verified 12/17/23 07:28 CAPILLARIES FACE Past Med/Surg History Problem List Palliative care by specialist Advanced care planning/counseling discussion Comfort measures only status Weakness generalized Abdominal pain, generalized Generalized pain MDD (major depressive disorder), recurrent episode Pneumonia UTI (urinary tract infection) Hypocalcemia Ambulatory dysfunction Metabolic encephalopathy Right leg swelling Anasarca Hypomagnesemia (Acute) Acute urinary retention (Acute) Abdominal wall cellulitis (Acute) PATY (acute kidney injury) (Acute) Sepsis (Acute) Zinc deficiency Copper deficiency myeloneuropathy Cirrhosis Muscle wasting and atrophy, not elsewhere classified, other site Pancytopenia Pressure ulcer of sacral region, stage 4 Severe protein-calorie malnutrition Left hip pain Effusion, left knee MSSA (methicillin susceptible Staphylococcus aureus) infection Elevated CK Elevated troponin (Acute) Wandering atrial pacemaker Urinary retention Constipation Abnormal rhythmic movement of tongue Tear of right hamstring Hamstring tendinitis Piriformis syndrome of right side History of colon polyps Diabetic nephropathy with proteinuria Fatty (change of) liver, not elsewhere classified Diastolic CHF S/P shoulder replacement Osteoarthritis of left knee Foot drop Idiopathic polyneuropathy Hypercholesterolemia Atrial fibrillation (Acute) Restrictive lung disease secondary to obesity Restrictive lung disease COPD (chronic obstructive pulmonary disease) (Chronic) Obsessive compulsive disorder (Chronic) Left ventricular hypertrophy (Chronic) Diabetic nephropathy (Chronic) Anemia (Chronic) HTN (hypertension) (Chronic) Swelling of right upper extremity Dizziness Atrial flutter Vitamin D deficiency Hyperlipemia (Chronic) Hypothyroidism (Chronic) Chronic low back pain (Chronic) Anxiety and depression (Chronic) Arthralgia of multiple sites (Chronic) Claustrophobia (Chronic) Diabetic peripheral neuropathy (Chronic) Diabetic retinopathy, nonproliferative (Chronic) 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 Per [facility] pulm 12/2019, "fairly stable from a pulmonary perspective. She is short of breath with any exertion, however a large part of this is likely related to obesity. Pulmonary functions done 1 year ago showed only a mild restrictive pattern. Diffusion was slightly decreased to 66%. One year ago she did have a normal arterial blood gas with no evidence of CO2 retention." Using PRN 3L, mostly using with exertion, not using every day. Nasal septal deviation (Chronic) Nocturnal hypoxia (Chronic) 2-3L N/C - during night Nontoxic multinodular goiter (Chronic) TRUMAN (obstructive sleep apnea) PRESCRIBED BIPAP-CAN'T TOLERATE-CLAUSTROPHOBIC Anemia due to chronic kidney disease Chronic kidney disease, stage 4 (severe) Medical History Type 2 diabetes mellitus History of femur fracture (04/08/23) Displaced fracture of neck of left femur, from a fall-saw orthopedics and had surgery Left hip postoperative wound infection History of partial replacement of left hip joint using bipolar prosthesis (04/09/23) Retention of urine, unspecified Obsessive compulsive disorder History of COVID-2019--mild symptoms, no symptoms now On home oxygen therapy 2L n/c prn sob Fluid retention Right sided sciatica AV fistula September 07, 2020 > right wrist > not on dialysis at present Atrial fibrillation and flutter Generalized weakness Syncope PAF (paroxysmal atrial fibrillation) Atrial fibrillation, new onset dx August 2020> cardioversions x2. on eliquis > follows Dr. Fontaine Cardiac murmur Mild TR noted on 2019 echo. Obesity hypoventilation syndrome Morbid obesity BMI 40.1 Diastolic congestive heart failure Euvolemic on exam at [facility] 09/02/20. follows with Dr. Fontaine Chronic rhinitis Hypertension Diabetes IDDM Surgical History Status post gastric bypass for obesity 09/14/2020- Dr. Ash- [facility] History of incision and drainage (05/06/23) Incision and Drainage, Debridement Sacral Wound - Yasmany Langley DO History of bilateral cataract extraction History of cardioversion x2 History of arthroscopy x2 left shoulder History of total shoulder replacement LEFT 07/19 2015 fracture History of esophagogastroduodenoscopy (EGD) History of colonoscopy History of dermoid cyst excision S/P tooth extraction History of mandibular surgery FULL ROM H/O section x1 Hx of cholecystectomy Family History Daughter Multiple allergies Bipolar disorder Aunt Breast cancer Mother Diabetes Heart disease Hyperthyroidism Hypertension Father Gastric cancer Hearing loss Myocardial infarction Grandfather Heart disease Family/Other Osteoporosis Lung cancer Hypertension Stroke Brother Hypertension Grandmother Ovarian cancer Sister Diabetes Migraine Other No family history of adverse response to anesthesia Denies family history of Prostate cancer Colorectal cancer Uterine cancer Social History Smoking Status: Never smoker Second Hand Exposure: No; Do You Dip or Chew Tobacco: No; Hx Alcohol Use: No Hx Substance Use: No Preferred Language: Greek Communication Ability: Impaired Visual Impairment: No Limitations Mainframe Systems Administrator Required: No Beliefs That Will Affect Care: None marital status: Current Living Situation: [facility] Current Living Situation Comment: [facility] current occupational status: employed and unemployed Feels Safe at Home: Yes Childhood Exposure to Second-Hand Smoke: Yes Dental Care, Regularly: Yes Physical Activity Frequency: Does not Exercise Seatbelt Use: always Sunscreen Use: Yes Assistive Devices: Wheelchair Physical Exam Constitutional: WD/WN, vitals as above Respiratory: normal respiratory effort Neurologic: + obtunded Code Status & VTE Plan Code Status DNR/DNI VTE Prophylaxis Plan VTE Prophylaxis will be ordered: No Reason for no VTE drug order: Treatment not indicated PG Care Time/CCT Total # of Minutes Spent Total Time Spent with Patient: Total time spent is greater than 50% in coordination of care (as documented) at patient's floor/unit and/or counseling patient: Coding Level of Care Code None Diagnoses Comfort measures only status Z51.5
[2024-03-10] MEDS: HYDROmorphone 100 MG/100 ML BAG IV SCH (16:45)
[2024-03-10] MEDS: HYDROmorphone BOLUS from BAG IV PRN (16:45)
[2024-03-10 17:56] VITALS: BP 89/57; PULSE 92; RESP 10; TEMP 97.5; O2SAT 71
[2024-03-11] MEDS: GLYCOPYRROLATE 0.2 MG/ML VIAL IV PRN (09:08)
--- OUTSIDE RECORDS SUMMARY | 2024-03-11 10:06 | External Medical Summary | Continuity Of Care Document ---
Author Name Unknown Address [address] [place] [address] Organization [facility] ( ) Care Team Providers Care Repair Mechanic Name Role Phone Emerald Hua Primary Care Provider [phone] Allergies Allergy Reaction Start Date End Date Status IODINATED CONTRAST MEDIA Active PROMETHAZINE Active Problems Code Description Start Date End Date Status M86.9 Osteomyelitis, unspecified 11/29/2023 0 Active E11.40 Type 2 diabetes eavn itus with diabetic neuropathy, unspecified 11/29/2023 Active [...] Temperature SpO2 Blood Sugar Pulse Respirations 826 04096 8 71.00 mm[Hg] - Sitting 124.00 mm[Hg] - Sitting 81.00/ min 18083 830 04207 0 138.00 mg/dL 830 80357 6 60.00 mm[Hg] - Sitting 109.00 mm[Hg] - Sitting 98.00 % 77.00/ min 23535 903 72840 2 55.00 mm[Hg] - Sitting 98.00 mm[Hg] - Sitting 219.00 NI 98.00 Oral 54.00/ min 74645 915 28848 1 56.00 mm[Hg] - Sitting 93.00 mm[Hg] - Sitting 61.00/ min 917 25616 0 96.70 Ear Immunizations Vaccine Date Status COVID-19 10/20/2020 Completed COVID-19 11/18/2020 Completed COVID-19 06/05/2021 Completed COVID-19 10/13/2021 Completed COVID-19 04/10/2022 Completed Influenza 08/22/2023 Resident Refused (PCV13)Pneumococcal 03/25/2019 Completed (PPSV23)Pneumococcal 03/23/2020 Completed Shingles 10/13/2021 Completed TDaP 05/15/2016 Completed
--- OUTSIDE RECORDS SUMMARY | 2024-03-11 10:06 | External Medical Summary | Continuity Of Care Document ---
Author Name Unknown Address [address] [place] [address] Organization [facility] ( ) Care Team Providers Care Raw Silk Grader Name Role Phone Emerald Hua Primary Care Provider [phone] Allergies Allergy Reaction Start Date End Date [...] Temperature SpO2 Blood Sugar Pulse Respirations 826 40937 8 71.00 mm[Hg] - Sitting 124.00 mm[Hg] - Sitting 81.00/ min 13823 830 50526 0 138.00 mg/dL 830 13219 6 60.00 mm[Hg] - Sitting 109.00 mm[Hg] - Sitting 98.00 % 77.00/ min 74578 903 77740 2 55.00 mm[Hg] - Sitting 98.00 mm[Hg] - Sitting 219.00 NI 98.00 Oral 54.00/ min 55897 915 83359 1 56.00 mm[Hg] - Sitting 93.00 mm[Hg] - Sitting 61.00/ min 917 60526 0 96.70 Ear Immunizations Vaccine Date Status COVID-19 10/20/2020 Completed COVID-19 11/18/2020 Completed COVID-19 06/05/2021 Completed COVID-19 10/13/2021 Completed COVID-19 04/10/2022 Completed Influenza 08/22/2023 Resident Refused (PCV13)Pneumococcal 03/25/2019 Completed (PPSV23)Pneumococcal 03/23/2020 Completed Shingles 10/13/2021 Completed TDaP 05/15/2016 Completed
--- NOTE | 2024-03-11 15:49 | Hospitalist Progress Note ---
Date of Service March 11, 2024 Assessment & Plan (1) Comfort measures only status: Plan: Patient now on comfort measures only/inpatient hospice Continue Dilaudid drip at 0.4 Mg per hour with boluses of 0.5 Mg 30 minutes prior to turning/repositioning for comfort Ativan as needed for anxiety or agitation Robinul as needed for secretions Support given to family at bedside Disposition-expect patient to pass away within 2-3 days Admission and Anticipated Discharge Date Admission Date: March 10, 2024 Subjective Pt was somewhat awake and talking a little this AM as per but currently very lethargic. Appears comfortable. Having some secretions and received robinul Physical Exam Constitutional: WD/WN, vitals as above Respiratory: normal respiratory effort Neurologic: + obtunded PG Care Time/CCT Total # of Minutes Spent Total Time Spent with Patient: Total time spent is greater than 50% in coordination of care (as documented) at patient's floor/unit and/or counseling patient: Coding Level of Care Code 47601 SUB INP/OBS CARE 07/11MIN Diagnoses Comfort measures only status Z51.5
--- NOTE | 2024-03-12 03:06 | Death Pronouncement Note ---
Date of Service March 12, 2024 Pronouncement Note Admission Date Admission Date: March 10, 2024 Contributing Factors (1) Comfort measures only status: Summary Additional details: I was called to pronounce the of Jerri Arellano ( 1960) on 03/12/2024 Upon entering the room, patient was found to be in a terminal state. They were u nresponsive to, and did not withdrawal from, verbal or tactile stimuli. They were unresponsive to corneal, pupillary, and oculocephalic reflexes. On cardiopulmonary exam, they were found to be without detectable carotid pulses, and without spontaneous heart tones or respirations. Time of was pronounced by me on 03/12/2024 at 0205. Attending physician was notified was notified. Next of kin was present. Signed: Caro Phoenix DO Additional Data Attending physician: Sonya De MD
--- NOTE | 2024-03-12 09:57 | Discharge Summary ---
Discharge Summary Date of Service March 12, 2024 Principal Dx & Hospital Course #1 = Principal Diagnosis (1) Comfort measures only status: Patient was admitted for sepsis from PNA, UTI, bacteremia, sacral wound infection, had PATY and shock. Was transitioned to comfort measures only/inpatient hospice Was on Dilaudid drip x 2-3 days and peacefully at 0205 on 03/12/24. Admission HPI Per Admitting Provider This patient is a 63-year-old female who was admitted to the hospital previously for sepsis, pneumonia, UTI, bacteremia, and acute kidney injury. She had hypotension and significant chronic pain issues. Decision was made to transition her to general inpatient hospice. Please see discharge summary from same DOS on 03/10 for further details of that admission. Discharge Plan Discharge Items Patient Disposition: Other Date/Time: 03/12/24 02:05 Total Time Total Time Spent Total Time Spent (In Minutes): 10 min Coding Level of Care Code 28570 IN/OBS DISCH 30 MIN/LESS Diagnoses Comfort measures only status Z51.5
== END 2024-03-12 04:33 | disposition expired | DRG 951 ==
LOC: 3W 14:43